=== PATIENT | female | born 1950 | race African-American/Black ===

== ENCOUNTER 2017-12-05 00:58 | Inpatient (IN) | payer OTHER ==
[~2017-12-05] VITALS: Ht 167.6 cm; Wt 78.5 kg
[2017-12-05] VITALS (18 sets, daily range): BP systolic 93–121; BP diastolic 39–57
[2017-12-05 01:33] LABS: HEMATOCRIT 36.4 % (37.0-47.0); HEMOGLOBIN 11.3 G/DL (12.0-16.0); MEAN CORPUSCULAR VOLUME 97 FL (80-99); PLATELET COUNT 176 K/UL (150-450); RED BLOOD COUNT 3.76 M/UL (4.20-5.40); WHITE BLOOD COUNT 18.5 K/UL (4.8-10.8)
[2017-12-05 01:47] LABS: ALANINE AMINOTRANSFERASE 25 U/L (12-78); ALBUMIN 3.6 G/DL (3.4-5.0); ALBUMIN/GLOBULIN RATIO 1.1 (1.0-2.7); ALKALINE PHOSPHATASE 99 U/L (46-116); ANION GAP 34 mmol/L (5-15); ASPARTATE AMINO TRANSFERASE 26 U/L (15-37); BILIRUBIN,TOTAL 0.6 MG/DL (0.2-1.0); BLOOD UREA NITROGEN 45 mg/dL (7-18); CHLORIDE 91 MMOL/L (98-107); CREATININE 2.9 MG/DL (0.55-1.30); SODIUM 132 MMOL/L (136-145)
[2017-12-05 01:50] LABS: CARBON DIOXIDE 6 MMOL/L (21-32)
[2017-12-05] MEDS ORDERED: Insulin Human Regular 100units/ml 3ml IV ONE (02:00)
--- NOTE | 2017-12-05 04:00 | Emergency Room Report ---
History of Present Illness General Chief Complaint: Altered Level of Consciousness Source: Patient, Family Member, EMS Present Illness HPI 67-year-old female presents ED with elevated Accu-Chek. Brought in by EMS. Per sister at bedside patient has been altered 1 day. Accu-Chek critically high. History of diabetes. States she's not been compliant with her medications for several days now. Will not answer as to why. Denies fevers or chills. Denies chest pain or shortness of breath. Denies nausea or vomiting. No other aggravating relieving factors. Denies any other associated symptoms Allergies: Coded Allergies: PENICILLINS (Verified Allergy, Unknown, 12/05/17) Patient History Past Medical History: DM Past Surgical History: none Pertinent Family History: none Social History: Denies: smoking, alcohol use, drug use Now: No Immunizations: UTD Reviewed Nursing Documentation: PMH: Agreed; PSxH: Agreed Nursing Documentation-PMH Hx Diabetes: Yes Review of Systems All Other Systems: negative except mentioned in HPI Physical Exam Vital Signs Date Time Temp Pulse Resp B/P (MAP) Pulse Ox O2 Delivery O2 Flow Rate FiO2 12/05/17 00:58 97.5 112 16 108/39 100 Room Air 97.5 Sp02 EP Interpretation: reviewed, normal General Appearance: no apparent distress, alert, GCS 15, non-toxic Head: normocephalic, atraumatic Eyes: bilateral eye normal inspection, bilateral eye PERRL ENT: hearing grossly normal, normal pharynx, no angioedema, normal voice Neck: full range of motion, supple/symm/no masses Respiratory: chest non-tender, lungs clear, normal breath sounds, speaking full sentences Cardiovascular #1: regular rate, rhythm, no edema Cardiovascular #2: 2+ carotid (R), 2+ carotid (L), 2+ radial (R), 2+ radial (L) , 2+ dorsalis pedis (R), 2+ dorsalis pedis (L) Gastrointestinal: normal bowel sounds, non tender, soft, non-distended, no guarding, no rebound Rectal: deferred Genitourinary: normal inspection, no CVA tenderness Musculoskeletal: back normal, gait/station normal, normal range of motion, non- tender Neurologic: alert, oriented x3, responsive, motor strength/tone normal, sensory intact, speech normal Psychiatric: judgement/insight normal, memory normal, mood/affect normal, no suicidal/homicidal ideation Reflexes: 3+ bicep (R), 3+ bicep (L), 3+ tricep (R), 3+ tricep (L), 3+ knee (R) , 3+ knee (L) Skin: normal color, no rash, warm/dry, well hydrated Lymphatic: no adenopathy Procedures Critical Care Time Critical Care Time i. I feel this is a highly complex case requiring extensive working including EKG/Rhythm strip, Xray/CT/US, Blood/urine lab work, repeat exams while in ED, and administration of strong opiates/narcotics for pain control, admission to hospital or close patient follow up. Total time: 30 min bedside evaluation and treatment excludes procedures (EKG). Reason for critical care: DKA Possible complications: hypotension, hypertension, SD, shock, arrhythmias, metabolic acidosis, end organ damage, respiratory failure. Interventions: labs, IVFS, EKG, ABG. Insulin bolus/Drip Course: patient presenting with critically high Accu-Chek. Glucose greater than 800, significant acidosis. ABG confirms DKA. Started on IV fluids. Started on insulin bolus and drip Consultations: nursing staff, EMS, family Performed by: Dr Schuster Tolerated well condition = critical j. because of unstable vital signs this patient had a condition that could potentially threaten life or limb. I feel this is a critical patient who required my full attention while patient was considered critical. Total Critical Care Time excluding procedures was greater than 35 minutes Medical Decision Making Diagnostic Impression: Primary Impression: DKA (diabetic ketoacidoses) Qualified Codes: E13.10 - Other specified diabetes mellitus with ketoacidosis without coma Additional Impression: Renal insufficiency ER Course Hospital Course 67-year-old female presenting to ED with altered mental status, glucometer critically high Differential diagnoses include: ETOH/drug ingestion, sepsis, DKA Clinical course Patient placed on stretcher. On panel monitor. After initial history and physical I ordered labs, 2 L of IV fluids, urine and chest Xray Labs-glucose greater than 800, anion gap elevated, bicarbonate low, BUN/ creatinine elevated. Leukocytosis noted. K >6 EKG - sinus tachycardia no acute ischemic changes interpreted by me Insulin drip/bolus started Case discussed with Dr. Fontana and he agreed to accept the patient to his service for further care and support i. I feel this is a highly complex case requiring extensive working including EKG/Rhythm strip, Xray/CT/US, Blood/urine lab work, repeat exams while in ED, and administration of strong opiates/narcotics for pain control, admission to hospital or close patient follow up. j. because of unstable vital signs this patient had a condition that could potentially threaten life or limb. I feel this is a critical patient who required my full attention while patient was considered critical. Total Critical Care Time excluding procedures was greater than 35 minutes diagnosis - DKA, renal insufficiency admitted to ICU in critical condition Labs Test 12/05/17 01:03 12/05/17 01:54 White Blood Count 18.5 K/UL (4.8-10.8) Red Blood Count 3.76 M/UL (4.20-5.40) Hemoglobin 11.3 G/DL (12.0-16.0) Hematocrit 36.4 % (37.0-47.0) Mean Corpuscular Volume 97 FL (80-99) Mean Corpuscular Hemoglobin 30.0 PG (27.0-31.0) Mean Corpuscular Hemoglobin Concent 31.0 G/DL (32.0-36.0) Red Cell Distribution Width 13.0 % (11.6-14.8) Platelet Count 176 K/UL (150-450) Mean Platelet Volume 7.4 FL (6.5-10.1) Neutrophils (%) (Auto) % (45.0-75.0) Lymphocytes (%) (Auto) % (20.0-45.0) Monocytes (%) (Auto) % (1.0-10.0) Eosinophils (%) (Auto) % (0.0-3.0) Basophils (%) (Auto) % (0.0-2.0) Sodium Level 132 MMOL/L (136-145) Potassium Level 6.0 MMOL/L (3.5-5.1) Chloride Level 91 MMOL/L (98-107) Carbon Dioxide Level 6 MMOL/L (21-32) Anion Gap 34 mmol/L (5-15) Blood Urea Nitrogen 45 mg/dL (7-18) Creatinine 2.9 MG/DL (0.55-1.30) Estimat Glomerular Filtration Rate 16.2 mL/min (>60) Glucose Level 844 MG/DL (74-106) Calcium Level 9.0 MG/DL (8.5-10.1) Magnesium Level 2.3 MG/DL (1.8-2.4) Total Bilirubin 0.6 MG/DL (0.2-1.0) Aspartate Amino Transf (AST/SGOT) 26 U/L (15-37) Alanine Aminotransferase (ALT/SGPT) 25 U/L (12-78) Alkaline Phosphatase 99 U/L (46-116) Total Protein 6.8 G/DL (6.4-8.2) Albumin 3.6 G/DL (3.4-5.0) Globulin 3.2 g/dL Albumin/Globulin Ratio 1.1 (1.0-2.7) Acetone Level Positive-moderate (NEGATIVE) Arterial Blood pH 7.157 (7.350-7.450) Arterial Blood Partial Pressure CO2 14.0 mmHg (35.0-45.0) Arterial Blood Partial Pressure O2 135.0 mmHg (75.0-100.0) Arterial Blood HCO3 4.8 mmol/L (22.0-26.0) Arterial Blood Oxygen Saturation 98.0 % (92.0-98.0) Arterial Blood Base Excess -21.7 Isiah Test Positive EKG Diagnostic Results Rate: tachycardiac Rhythm: NSR ST Segments: no acute changes ASA given to the pt in ED: No Rhythm Strip Diag. Results EP Interpretation: yes Rhythm: NSR, no PVC's, no ectopy Last Vital Signs Date Time Temp Pulse Resp B/P (MAP) Pulse Ox O2 Delivery O2 Flow Rate FiO2 12/05/17 03:36 97.5 16 108/39 100 Room Air 97.5 12/05/17 00:58 112 Status: improved Disposition: ADMITTED INPATIENT Condition: Critical Referrals: [facility],REFERRING (PCP) Lul Schuster MD Dec 05, 2017 04:00
[2017-12-05] MEDS ORDERED: METFORMIN HCL500 M1 ORAL (04:21)
[2017-12-05] MEDS ORDERED: HUMALOG100 UNIT/4 SUBQ ×2 (04:21→04:24)
[2017-12-05] MEDS ORDERED: LANTUS SOL100 UNIT/1 SUBQ (04:28)
[2017-12-05] MEDS ORDERED: ATORVASTATIN CA80 MG ORAL (04:28)
[2017-12-05] MEDS ORDERED: BENAZEPRIL HCL40 MG ORAL (04:28)
[2017-12-05] MEDS ORDERED: AMLODIPINE BESYL5 MG ORAL (04:28)
[2017-12-05] MEDS ORDERED: ASPIRIN81 MG ORAL (04:28)
[2017-12-05 08:00] LABS: HEMATOCRIT 34.3 % (37.0-47.0); MEAN CORPUSCULAR VOLUME 93 FL (80-99); PLATELET COUNT 182 K/UL (150-450); RED BLOOD COUNT 3.68 M/UL (4.20-5.40); RED CELL DISTRIBUTION WIDTH 12.6 % (11.6-14.8)
--- NOTE | 2017-12-05 08:09 | Pulmonolgy Critical Care Note ---
Critical Care - Asmt/Plan Problems: (1) DKA (diabetic ketoacidoses) (2) Leukocytosis (3) Hyperkalemia (4) High anion gap metabolic acidosis Respiratory: monitor respiratory rate, CXR, ABG Cardiac: other - IVF, repeat ECG/trop Renal: keep IV fluid, check electrolytes Infectious Disease: check cultures, other - check UA and CXR Gastrointestinal: start feedings - ADA diet Endocrine: monitor blood sugar, check TSH, check HgA1C, other - continue insulin gtt until gap closed, continue IVF hydration, ENDOCRINE evaluation Hematologic: monitor H/H Neurologic: keep patient comfortable Prophylaxis: Protonix, Heparin Disposition: keep in ICU Time Spent (Minutes): 50 Notes Reviewed: other - ERMD Discussed with: nurses Critical Care - Objective Last 24 Hour Vital Signs Date Time Temp Pulse Resp B/P (MAP) Pulse Ox O2 Delivery O2 Flow Rate FiO2 12/05/17 07:05 101 18 112/51 98 Room Air 12/05/17 03:36 97.5 16 108/39 100 Room Air 97.5 12/05/17 00:58 97.5 112 16 108/39 100 Room Air 97.5 Status: awake Condition: critical HEENT: atraumatic, normocephalic Lungs: clear Heart: HR/BP stable Abdomen: soft, non-tender, active bowel sounds Extremities: no C/C/E Accucheck: 509 Blood Sugars: BS not controlled Critical Care - Subjective ROS Limited/Unobtainable: Yes ICU Day: 1 Interval Events: 67 F h/o DM BIB EMS with AMS and elevated BS In the ED: 7.157/14/135/98, HCO3-6, AG 34, WCT 18 Started on insulin gtt and being transferred to the ICU Patient denies any specific complaints, is a vague historian and states she has been compliant with her meds and her BS has been well controlled previously. She denies any previous hospitalizations for DKA Condition: critical IV Access: peripheral EKG Rhythm: Sinus Tachycardia Fluids: NS @ 100/hr Drips: Insulin gtt I&O: Intake and Output 12/04/17 12/05/17 19:00 07:00 Intake Total 0 ml Balance 0 ml Intake Oral 0 ml Subjective: No F/C/TORRES/Dizziness/CP/SOB/N/V/D/C/abdominal pain/urinary complaints No changes in vision/hearing/balance Active Scripts Medications Dose Route/Sig Max Daily Dose Days Date Category Lantus (Insulin Glargine) 100 Unit/1 Ml Insuln.pen 20 SUBQ DAILY 12/05/17 Reported Benazepril Hcl* (Benazepril HCl) 40 Mg Tablet 40 Mg ORAL DAILY 12/05/17 Reported Lipitor* (Atorvastatin Calcium) 80 Mg Tablet 80 Mg ORAL BEDTIME 12/05/17 Reported Aspirin* (Aspirin) 81 Mg Tab.chew 81 Mg ORAL DAILY 12/05/17 Reported Amlodipine Besylate* (Amlodipine Besylate) 5 Mg Tablet 5 Mg ORAL DAILY 12/05/17 Reported Humalog (Insulin Lispro) 100 Unit/1 Ml Cartridge 4 SUBQ DINNER 12/05/17 Reported Humalog (Insulin Lispro) 100 Unit/1 Ml Cartridge 8 SUBQ BREAKFAST,LUNCH 12/05/17 Reported Metformin Hcl* (Metformin HCl) 500 Mg Tablet 500 Mg ORAL TWICE A DAY 12/05/17 Reported Labs: Laboratory Tests Test 12/05/17 01:03 12/05/17 01:54 12/05/17 06:56 White Blood Count 18.5 K/UL (4.8-10.8) H 24.0 K/UL (4.8-10.8) *H Red Blood Count 3.76 M/UL (4.20-5.40) L 3.68 M/UL (4.20-5.40) L Hemoglobin 11.3 G/DL (12.0-16.0) L 11.0 G/DL (12.0-16.0) L Hematocrit 36.4 % (37.0-47.0) L 34.3 % (37.0-47.0) L Mean Corpuscular Volume 97 FL (80-99) 93 FL (80-99) Mean Corpuscular Hemoglobin 30.0 PG (27.0-31.0) 29.8 PG (27.0-31.0) Mean Corpuscular Hemoglobin Concent 31.0 G/DL (32.0-36.0) L 32.0 G/DL (32.0-36.0) Red Cell Distribution Width 13.0 % (11.6-14.8) 12.6 % (11.6-14.8) Platelet Count 176 K/UL (150-450) 182 K/UL (150-450) Mean Platelet Volume 7.4 FL (6.5-10.1) 8.1 FL (6.5-10.1) Neutrophils (%) (Auto) % (45.0-75.0) % (45.0-75.0) Lymphocytes (%) (Auto) % (20.0-45.0) % (20.0-45.0) Monocytes (%) (Auto) % (1.0-10.0) % (1.0-10.0) Eosinophils (%) (Auto) % (0.0-3.0) % (0.0-3.0) Basophils (%) (Auto) % (0.0-2.0) % (0.0-2.0) Sodium Level 132 MMOL/L (136-145) L Pending Potassium Level 6.0 MMOL/L (3.5-5.1) *H Pending Chloride Level 91 MMOL/L (98-107) L Pending Carbon Dioxide Level 6 MMOL/L (21-32) *L Pending Anion Gap 34 mmol/L (5-15) H Blood Urea Nitrogen 45 mg/dL (7-18) H Pending Creatinine 2.9 MG/DL (0.55-1.30) H Pending Estimat Glomerular Filtration Rate 16.2 mL/min (>60) Pending Glucose Level 844 MG/DL (74-106) *H Pending Calcium Level 9.0 MG/DL (8.5-10.1) Pending Magnesium Level 2.3 MG/DL (1.8-2.4) Pending Total Bilirubin 0.6 MG/DL (0.2-1.0) Pending Aspartate Amino Transf (AST/SGOT) 26 U/L (15-37) Pending Alanine Aminotransferase (ALT/SGPT) 25 U/L (12-78) Pending Alkaline Phosphatase 99 U/L (46-116) Pending Total Protein 6.8 G/DL (6.4-8.2) Pending Albumin 3.6 G/DL (3.4-5.0) Pending Globulin 3.2 g/dL Pending Albumin/Globulin Ratio 1.1 (1.0-2.7) Acetone Level Positive-moderate (NEGATIVE) Arterial Blood pH 7.157 (7.350-7.450) Arterial Blood Partial Pressure CO2 14.0 mmHg (35.0-45.0) *L Arterial Blood Partial Pressure O2 135.0 mmHg (75.0-100.0) H Arterial Blood HCO3 4.8 mmol/L (22.0-26.0) L Arterial Blood Oxygen Saturation 98.0 % (92.0-98.0) Arterial Blood Base Excess -21.7 Isiah Test Positive Neutrophils % (Manual) Pending Lymphocytes % (Manual) Pending Platelet Estimate Pending Platelet Morphology Pending Hemoglobin A1c Pending Uric Acid Pending Phosphorus Level Pending Gamma Glutamyl Transpeptidase Pending Total Creatine Kinase Pending C-Reactive Protein, Quantitative Pending Pro-B-Type Natriuretic Peptide Pending Triglycerides Level Pending Cholesterol Level Pending LDL Cholesterol Pending HDL Cholesterol Pending Cholesterol/HDL Ratio Pending Lipase Pending James Ellis MD Dec 05, 2017 08:09
[2017-12-05 08:34] LABS: ALANINE AMINOTRANSFERASE 27 U/L (12-78); ALBUMIN 3.7 G/DL (3.4-5.0); ALBUMIN/GLOBULIN RATIO 1.2 (1.0-2.7); ALKALINE PHOSPHATASE 96 U/L (46-116); ASPARTATE AMINO TRANSFERASE 30 U/L (15-37); BILIRUBIN,TOTAL 0.6 MG/DL (0.2-1.0); BLOOD UREA NITROGEN 45 mg/dL (7-18); CALCIUM 9.2 MG/DL (8.5-10.1); CHLORIDE 90 MMOL/L (98-107); CHOLESTEROL 179 MG/DL (< 200); CREATINE KINASE 133 U/L (26-308); CREATININE 2.9 MG/DL (0.55-1.30); GAMMA GLUTAMYL TRANSPEPTIDASE 20 U/L (5-85); HDL CHOLESTEROL 83 MG/DL (40-60); PHOSPHORUS 8.7 MG/DL (2.5-4.9); SODIUM 132 MMOL/L (136-145); TRIGLYCERIDES 124 MG/DL (30-150)
[2017-12-05 08:53] LABS: CARBON DIOXIDE < 5 MMOL/L (21-32)
[2017-12-05] MEDS ORDERED: Pantoprazole Inj IVP SCH (09:00)
[2017-12-05] MEDS: Heparin 5000 units/ml inj SUBQ SCH ×2 (09:00→21:21)
[2017-12-05] MEDS ORDERED: NS w/KCl 20mEq 1,000 ML IV SCH (09:00)
[2017-12-05] MEDS: Insulin Rate Change 1 Each MISC PRN ×9 (10:06→22:37)
--- NOTE | 2017-12-05 10:10 | Consultation ---
Consult Note Assessment/Plan Job ID: [id number] David De Jesus MD Dec 05, 2017 10:10
[2017-12-05] MEDS: Insulin Human Regular 100units/ml 3ml IV PRN ×3 (10:34→12:32)
[2017-12-05] MEDS ORDERED: Cefepime HCl 1 GM in D5W 55 ML IVPB SCH (10:45)
[2017-12-05 11:02] LABS: HEMATOCRIT 33.3 % (37.0-47.0); HEMOGLOBIN 10.9 G/DL (12.0-16.0); MEAN CORPUSCULAR VOLUME 90 FL (80-99); PLATELET COUNT 187 K/UL (150-450); WHITE BLOOD COUNT 20.8 K/UL (4.8-10.8)
--- NOTE | 2017-12-05 11:04 | Diagnostic Imaging Report ---
Indication: Reason For Exam: SOB Technique: One view of the chest Comparison: Findings: Lungs and pleural spaces are clear. Heart size is normal. There is minimal bronchiectasis in the left suprahilar region Impression: No acute process
[2017-12-05 11:12] LABS: ANION GAP 18 mmol/L (5-15); BLOOD UREA NITROGEN 44 mg/dL (7-18); CALCIUM 8.5 MG/DL (8.5-10.1); CARBON DIOXIDE 19 MMOL/L (21-32); CHLORIDE 102 MMOL/L (98-107); CREATININE 2.4 MG/DL (0.55-1.30); POTASSIUM 4.1 MMOL/L (3.5-5.1); SODIUM 139 MMOL/L (136-145)
[2017-12-05 11:21] LABS: % IRON SATURATION 10 % (15-50); IRON 23 ug/dL (50-175); TOTAL IRON BINDING CAPACITY 225 ug/dL (250-450)
[2017-12-05 11:25] LABS: ALANINE AMINOTRANSFERASE 30 U/L (12-78); ALBUMIN 3.4 G/DL (3.4-5.0); ALKALINE PHOSPHATASE 84 U/L (46-116); ASPARTATE AMINO TRANSFERASE 37 U/L (15-37); BILIRUBIN,TOTAL 0.4 MG/DL (0.2-1.0)
--- NOTE | 2017-12-05 15:03 | Consultation ---
Consult Note Consult Note Chief Complaint: Altered Level of Consciousness HPI 67-year-old female presents ED with elevated Accu-Chek. Brought in by EMS. Per sister at bedside patient has been altered 1 day. Accu-Chek critically high. History of diabetes. States she's not been compliant with her medications for several days now. Will not answer as to why. Denies fevers or chills. Denies chest pain or shortness of breath. Denies nausea or vomiting. No other aggravating relieving factors. Denies any other associated symptoms Allergies: PENICILLINS (Verified Allergy, Unknown, 12/05/17) Past Medical History: DM examined- data reviewed- discussed with RN- Assessment/Plan (1) DKA (diabetic ketoacidoses) (2) Leukocytosis ? undelrlying sepsis (3) Hyperkalemia, and acute renal failure, likely dehydration (4) High anion gap metabolic acidosis IV Fluid- Watch K and Phos- Insulin drip Monitor lytes and renal parameters- 2D echo avoid nephrotoxics- Amandeep Shaw MD Dec 05, 2017 15:03
[2017-12-05 15:22] LABS: ALANINE AMINOTRANSFERASE 26 U/L (12-78); ALBUMIN 3.3 G/DL (3.4-5.0); ALBUMIN/GLOBULIN RATIO 1.3 (1.0-2.7); ALKALINE PHOSPHATASE 82 U/L (46-116); ANION GAP 15 mmol/L (5-15); ASPARTATE AMINO TRANSFERASE 38 U/L (15-37); BILIRUBIN,TOTAL 0.3 MG/DL (0.2-1.0); BLOOD UREA NITROGEN 45 mg/dL (7-18); CALCIUM 8.8 MG/DL (8.5-10.1); CARBON DIOXIDE 21 MMOL/L (21-32); CHLORIDE 105 MMOL/L (98-107); POTASSIUM 3.8 MMOL/L (3.5-5.1); SODIUM 141 MMOL/L (136-145)
--- NOTE | 2017-12-05 15:31 | Cardiology Report ---
APPROVED REPORT EKG Measurement Heart [id number] Sinus tachycardia Nonspecific ST and T wave abnormality Abnormal ECG
--- NOTE | 2017-12-05 16:00 | History and Physical Report ---
DATE OF ADMISSION: 12/05/2017 HISTORY OF PRESENT ILLNESS: Admitted to ICU for diabetic ketoacidosis. The patient basically admitted to ICU for diabetic ketoacidosis. The patient basically complained of weakness and abdominal pain and found to have diabetic ketoacidosis. The patient takes insulin. Denies any dizziness. Did have abdominal pain in couple of days. Denies diarrhea. Denies nausea or vomiting. Denies shortness of breath. Denies chest pain and also denies any rectal bleeding. Denies any dysuria. Of note, the patient is little bit confused and most likely from elevated blood sugar, the patient is oriented now x2 only at this point. So, the history is a kind of unreliable as he says no to everything. PAST MEDICAL HISTORY: NIDDM, the patient takes insulin, hyperlipidemia, and hypertension. ALLERGIES: To penicillin. PAST SURGICAL HISTORY: Denies. MEDICATIONS: Aspirin, Lipitor, benazepril, Lantus, and metformin. FAMILY HISTORY: Does have CAD, diabetes, and hypertension. SOCIAL HISTORY: Denies smoking, alcohol, or illicit drugs. REVIEW OF SYSTEMS: HEENT: Denies headaches. RESPIRATORY: Denies shortness of breath. Denies cough. CARDIOVASCULAR: Denies chest pain. Denies orthopnea. GASTROINTESTINAL: Denies nausea, vomiting, or diarrhea. Does have abdominal pain for couple of days. EXTREMITIES: Denies any significant pain. CENTRAL NERVOUS SYSTEM: Denies change in vision or speech pattern, although he is a poor historian. At this time, somewhat confused due to metabolic disorder and elevated blood sugar most likely. PHYSICAL EXAMINATION: VITAL SIGNS: Temperature is 97, pulse is 98, and blood pressure is 108/39. HEENT: PERRLA. NECK: Supple. No lymphadenopathy. CHEST: Clear to auscultation. CARDIOVASCULAR: Regular rate and rhythm. No murmurs or extra sounds. GASTROINTESTINAL: Positive bowel sounds. No organomegaly. No rebound tender. Abdomen is soft. EXTREMITIES: No edema. Reflexes are equal on both sides. NEUROLOGIC: now with generalized weakness. Oriented x2. LABORATORY DATA: WBC of 18.5, hemoglobin 11.3, platelet of 176. Sodium 132, potassium of 3, chloride 91, carbon dioxide was 6, BUN of 45, creatinine of 2.9, and glucose of 844. ASSESSMENT AND PLAN: 1. High anion gap metabolic acidosis, DKA. The patient admitted to ICU. I have consulted Dr. Lopez, Dr. Shaw, Dr. Mata, and Dr. Ellis, for the help in the management of electrolyte imbalance as well as for the DKA and metabolic acidosis. 2. Leukocytosis. I have asked Dr. William Floyd's team to see the patient to find out if there is any other etiology for the leukocytosis. Delaney Fontana M.D. DR: FATOU JOB#: [id number] CC:
--- NOTE | 2017-12-05 16:10 | Consultation ---
History of Present Illness General Date patient seen: Dec 05, 2017 Chief Complaint: Altered Level of Consciousness Present Illness HPI 67-year-old female presents ED with elevated Accu-Chek the pt was confused and lethargic. the pt agitated and coming out of bed. attempting to pull out IV access. Allergies: Coded Allergies: PENICILLINS (Verified Allergy, Unknown, 12/05/17) Medication History Scheduled Amlodipine Besylate* (Amlodipine Besylate*), 5 MG ORAL DAILY, (Reported) Aspirin* (Aspirin*), 81 MG ORAL DAILY, (Reported) Atorvastatin Calcium* (Lipitor*), 80 MG ORAL BEDTIME, (Reported) Benazepril Hcl* (Benazepril Hcl*), 40 MG ORAL DAILY, (Reported) Insulin Glargine (Lantus), 20 SUBQ DAILY, (Reported) Insulin Lispro (Humalog), 8 SUBQ BREAKFAST,LUNCH, (Reported) Insulin Lispro (Humalog), 4 SUBQ DINNER, (Reported) Metformin Hcl* (Metformin Hcl*), 500 MG ORAL TWICE A DAY, (Reported) Patient History Limited by: medical condition History Provided By: Patient, Medical Record, PMD Healthcare decision maker Resuscitation status Full Code Advanced Directive on File Past Medical/Surgical History Past Medical/Surgical History: (1) Renal insufficiency (2) Hyperkalemia (3) Leukocytosis (4) High anion gap metabolic acidosis (5) DKA (diabetic ketoacidoses) (6) Diabetes mellitus out of control (7) NSTEMI (non-ST elevated myocardial infarction) (8) Acute on chronic renal failure Review of Systems Psychiatric: Reports: prior hx, anxiety, depressed feelings, emotional problems Physical Exam General Appearance: no apparent distress, lethargic Neurologic: depressed affect Last 24 Hour Vital Signs Date Time Temp Pulse Resp B/P (MAP) Pulse Ox O2 Delivery O2 Flow Rate FiO2 12/05/17 12:55 Room Air 12/05/17 12:00 77 12/05/17 12:00 Room Air 12/05/17 08:10 97.0 98 18 112/51 98 Room Air 97.5 12/05/17 07:05 101 18 112/51 98 Room Air 12/05/17 03:36 97.5 16 108/39 100 Room Air 97.5 12/05/17 00:58 97.5 112 16 108/39 100 Room Air 97.5 Intake and Output 12/04/17 12/05/17 19:00 07:00 Intake Total 0 ml Balance 0 ml Intake Oral 0 ml Laboratory Tests Test 12/05/17 01:03 12/05/17 01:54 12/05/17 06:56 12/05/17 09:18 White Blood Count 18.5 K/UL (4.8-10.8) H 24.0 K/UL (4.8-10.8) *H Red Blood Count 3.76 M/UL (4.20-5.40) L 3.68 M/UL (4.20-5.40) L Hemoglobin 11.3 G/DL (12.0-16.0) L 11.0 G/DL (12.0-16.0) L Hematocrit 36.4 % (37.0-47.0) L 34.3 % (37.0-47.0) L Mean Corpuscular Volume 97 FL (80-99) 93 FL (80-99) Mean Corpuscular Hemoglobin 30.0 PG (27.0-31.0) 29.8 PG (27.0-31.0) Mean Corpuscular Hemoglobin Concent 31.0 G/DL (32.0-36.0) L 32.0 G/DL (32.0-36.0) Red Cell Distribution Width 13.0 % (11.6-14.8) 12.6 % (11.6-14.8) Platelet Count 176 K/UL (150-450) 182 K/UL (150-450) Mean Platelet Volume 7.4 FL (6.5-10.1) 8.1 FL (6.5-10.1) Neutrophils (%) (Auto) % (45.0-75.0) % (45.0-75.0) Lymphocytes (%) (Auto) % (20.0-45.0) % (20.0-45.0) Monocytes (%) (Auto) % (1.0-10.0) % (1.0-10.0) Eosinophils (%) (Auto) % (0.0-3.0) % (0.0-3.0) Basophils (%) (Auto) % (0.0-2.0) % (0.0-2.0) Sodium Level 132 MMOL/L (136-145) L 132 MMOL/L (136-145) L Potassium Level 6.0 MMOL/L (3.5-5.1) *H 6.0 MMOL/L (3.5-5.1) *H Chloride Level 91 MMOL/L (98-107) L 90 MMOL/L (98-107) L Carbon Dioxide Level 6 MMOL/L (21-32) *L < 5 MMOL/L (21-32) *L Anion Gap 34 mmol/L (5-15) H Blood Urea Nitrogen 45 mg/dL (7-18) H 45 mg/dL (7-18) H Creatinine 2.9 MG/DL (0.55-1.30) H 2.9 MG/DL (0.55-1.30) H Estimat Glomerular Filtration Rate 16.2 mL/min (>60) 19.6 mL/min (>60) Glucose Level 844 MG/DL (74-106) *H 839 MG/DL (74-106) *H Calcium Level 9.0 MG/DL (8.5-10.1) 9.2 MG/DL (8.5-10.1) Magnesium Level 2.3 MG/DL (1.8-2.4) 2.4 MG/DL (1.8-2.4) Total Bilirubin 0.6 MG/DL (0.2-1.0) 0.6 MG/DL (0.2-1.0) Aspartate Amino Transf (AST/SGOT) 26 U/L (15-37) 30 U/L (15-37) Alanine Aminotransferase (ALT/SGPT) 25 U/L (12-78) 27 U/L (12-78) Alkaline Phosphatase 99 U/L (46-116) 96 U/L (46-116) Total Protein 6.8 G/DL (6.4-8.2) 6.8 G/DL (6.4-8.2) Albumin 3.6 G/DL (3.4-5.0) 3.7 G/DL (3.4-5.0) Globulin 3.2 g/dL 3.1 g/dL Albumin/Globulin Ratio 1.1 (1.0-2.7) 1.2 (1.0-2.7) Acetone Level Positive-moderate (NEGATIVE) Arterial Blood pH 7.157 (7.350-7.450) 7.348 (7.350-7.450) Arterial Blood Partial Pressure CO2 14.0 mmHg (35.0-45.0) *L 24.5 mmHg (35.0-45.0) *L Arterial Blood Partial Pressure O2 135.0 mmHg (75.0-100.0) H 90.2 mmHg (75.0-100.0) Arterial Blood HCO3 4.8 mmol/L (22.0-26.0) L 13.2 mmol/L (22.0-26.0) L Arterial Blood Oxygen Saturation 98.0 % (92.0-98.0) 96.0 % (92.0-98.0) Arterial Blood Base Excess -21.7 -10.78 Isiah Test Positive Positive Differential Total Cells Counted 100 Neutrophils % (Manual) 70 % (45-75) Lymphocytes % (Manual) 22 % (20-45) Monocytes % (Manual) 8 % (1-10) Eosinophils % (Manual) 0 % (0-3) Basophils % (Manual) 0 % (0-2) Band Neutrophils 0 % (0-8) Platelet Estimate Adequate Platelet Morphology Normal [place] Cells 1+ Hemoglobin A1c 9.8 % (4.3-6.0) H Uric Acid 7.4 MG/DL (2.6-7.2) H Phosphorus Level 8.7 MG/DL (2.5-4.9) H Gamma Glutamyl Transpeptidase 20 U/L (5-85) Total Creatine Kinase 133 U/L (26-308) C-Reactive Protein, Quantitative 2.1 mg/dL (0.00-0.90) H Pro-B-Type Natriuretic Peptide 3129 pg/mL (0-125) H Triglycerides Level 124 MG/DL (30-150) Cholesterol Level 179 MG/DL (< 200) LDL Cholesterol 85 mg/dL (<100) HDL Cholesterol 83 MG/DL (40-60) H Cholesterol/HDL Ratio 2.2 (3.3-4.4) L Lipase 174 U/L (73-393) Test 12/05/17 10:45 12/05/17 14:20 White Blood Count 20.8 K/UL (4.8-10.8) H Red Blood Count 3.70 M/UL (4.20-5.40) L Hemoglobin 10.9 G/DL (12.0-16.0) L Hematocrit 33.3 % (37.0-47.0) L Mean Corpuscular Volume 90 FL (80-99) Mean Corpuscular Hemoglobin 29.5 PG (27.0-31.0) Mean Corpuscular Hemoglobin Concent 32.8 G/DL (32.0-36.0) Red Cell Distribution Width 12.0 % (11.6-14.8) Platelet Count 187 K/UL (150-450) Mean Platelet Volume 8.9 FL (6.5-10.1) Neutrophils (%) (Auto) % (45.0-75.0) Lymphocytes (%) (Auto) % (20.0-45.0) Monocytes (%) (Auto) % (1.0-10.0) Eosinophils (%) (Auto) % (0.0-3.0) Basophils (%) (Auto) % (0.0-2.0) Differential Total Cells Counted 100 Neutrophils % (Manual) 70 % (45-75) Lymphocytes % (Manual) 20 % (20-45) Monocytes % (Manual) 7 % (1-10) Eosinophils % (Manual) 0 % (0-3) Basophils % (Manual) 0 % (0-2) Band Neutrophils 3 % (0-8) Platelet Estimate Adequate Platelet Morphology Normal Target Cells Haptoglobin Pending Prothrombin Time 10.6 SEC (9.30-11.50) Prothromb Time International Ratio 1.0 (0.9-1.1) Sodium Level 139 MMOL/L (136-145) 141 MMOL/L (136-145) Potassium Level 4.1 MMOL/L (3.5-5.1) 3.8 MMOL/L (3.5-5.1) Chloride Level 102 MMOL/L (98-107) 105 MMOL/L (98-107) Carbon Dioxide Level 19 MMOL/L (21-32) L 21 MMOL/L (21-32) Anion Gap 18 mmol/L (5-15) H 15 mmol/L (5-15) Blood Urea Nitrogen 44 mg/dL (7-18) H 45 mg/dL (7-18) H Creatinine 2.4 MG/DL (0.55-1.30) H 2.0 MG/DL (0.55-1.30) H Estimat Glomerular Filtration Rate 24.4 mL/min (>60) 30.2 mL/min (>60) Glucose Level 372 MG/DL (74-106) #H 161 MG/DL (74-106) #H Hemoglobin A1c 10.3 % (4.3-6.0) H Lactic Acid Level 3.10 mmol/L (0.4-2.0) H 3.20 mmol/L (0.66-2.22) H Calcium Level 8.5 MG/DL (8.5-10.1) 8.8 MG/DL (8.5-10.1) Iron Level 23 ug/dL (50-175) L Total Iron Binding Capacity 225 ug/dL (250-450) L Percent Iron Saturation 10 % (15-50) L Unsaturated Iron Binding 202 ug/dL (112-346) Ferritin 1890 NG/ML (8-388) H Total Bilirubin 0.4 MG/DL (0.2-1.0) 0.3 MG/DL (0.2-1.0) Aspartate Amino Transf (AST/SGOT) 37 U/L (15-37) 38 U/L (15-37) H Alanine Aminotransferase (ALT/SGPT) 30 U/L (12-78) 26 U/L (12-78) Alkaline Phosphatase 84 U/L (46-116) 82 U/L (46-116) Total Protein 6.7 G/DL (6.4-8.2) 5.9 G/DL (6.4-8.2) L Albumin 3.4 G/DL (3.4-5.0) 3.3 G/DL (3.4-5.0) L Globulin 3.3 g/dL 2.6 g/dL Albumin/Globulin Ratio 1.0 (1.0-2.7) 1.3 (1.0-2.7) Thyroid Stimulating Hormone (TSH) 0.208 uiU/mL (0.358-3.740) Height (Feet): 5 Height (Inches): 6.00 Weight (Pounds): 185 Medications Current Medications Medications (Trade) Dose Ordered Sig/Enrike Route PRN Reason Start Time Stop Time Status Last Admin Dose Admin Dextrose (Dextrose 50%) 25 ml PRN PRN IV HYPOGLYCEMIA 12/05/17 08:30 01/04/18 08:29 Dextrose (Dextrose 50%) 50 ml PRN PRN IV HYPOGLYCEMIA 12/05/17 08:30 01/04/18 08:29 Haloperidol Lactate (Haldol) 5 mg Q6H PRN IM Agitation 12/05/17 16:15 01/04/18 16:14 UNV Heparin Sodium (Porcine) (Heparin 5000 units/ml) 5,000 units EVERY 12 HOURS SUBQ 12/05/17 09:00 01/04/18 08:59 12/05/17 09:00 Insulin Human Regular (NovoLIN R) 5 units PRN PRN IV BS 200-299 12/05/17 08:30 01/04/18 08:29 12/05/17 12:32 Insulin Human Regular (NovoLIN R) 10 units PRN PRN IV BS=>300 12/05/17 08:30 01/04/18 08:29 12/05/17 12:15 Insulin Human Regular 100 units/ Sodium Chloride 100 ml @ 0 mls/hr Q24H IV 12/05/17 09:00 01/04/18 08:59 12/05/17 09:00 Levofloxacin 100 ml @ 100 mls/hr Q48H IVPB 12/05/17 12:00 12/12/17 11:59 12/05/17 12:24 Miscellaneous Medication (Insulin Rate Change) 1 ea PRN PRN MISC Hyperglycemia 12/05/17 08:30 01/04/18 08:29 12/05/17 15:30 Pantoprazole (Protonix) 40 mg DAILY IVP 12/05/17 09:00 01/04/18 08:59 12/05/17 09:00 Quetiapine Fumarate (SEROquel) 25 mg EVERY 6 HOURS PRN ORAL For Anxiety 12/05/17 16:15 01/04/18 16:14 UNV Quetiapine Fumarate (SEROquel) 50 mg BEDTIME ORAL 12/05/17 21:00 01/04/18 20:59 UNV Sodium Chloride 1,000 ml @ 150 mls/hr Q6H40M IV 12/05/17 10:00 01/04/18 09:59 12/05/17 10:00 Assessment/Plan Status: unchanged Assessment/Plan encephalopathy Agitation -seroquel 25mg q 6hr/prn/agitation -haldol prn Jeanette Jerez MD Dec 05, 2017 16:10
[2017-12-05] MEDS ORDERED: Haloperidol 5mg/ml Inj IM PRN (16:15)
--- NOTE | 2017-12-05 16:45 | Consultation ---
DATE OF CONSULTATION: 12/05/2017 INFECTIOUS DISEASE CONSULTATION CONSULTING PHYSICIAN: Mike Dickinson M.D. PRIMARY ATTENDING PHYSICIAN: Delaney Fontana M.D. REASON FOR CONSULT: Systemic inflammatory response sepsis. HISTORY OF PRESENT ILLNESS: This is a 67-year-old female, who is diabetic and noncompliant with diabetic medication, admitted with altered mental status. The patient was found to be hyperglycemic with blood sugar of 844 at the time of admission, had hyperkalemia, acute renal failure, and tachycardia. The patient is admitted to ICU and getting insulin drip and is being hydrated. She was found to have acidosis. PAST MEDICAL HISTORY: 1. Diabetes mellitus, on insulin. 2. Hypertension. MEDICATIONS: Sodium chloride, insulin, Protonix, and heparin. ALLERGIES: Allergic to penicillin. SOCIAL HISTORY: . Denies alcohol or drug abuse and smoking. Has no children. REVIEW OF SYSTEMS: Denies fevers or chills. Denies sore throat, runny nose, or change in vision. Denies nausea, vomiting, or diarrhea. Denies coughing or shortness of breath. Denies chest pain. Denies difficulty of passing urine. PHYSICAL EXAMINATION: VITAL SIGNS: Temperature 97, pulse 98, and blood pressure 112/51. GENERAL APPEARANCE: Awake, alert, and responsive. HEAD AND NECK: No oral lesion. Kress conjunctiva. HEART: Regular. Normal rate. LUNGS: Clear. ABDOMEN: Soft and nontender. EXTREMITY: She has no edema. LABORATORY AND DIAGNOSTIC DATA: WBC 24,000, hemoglobin 11, hematocrit 34.3, and platelets 182,000. Sodium 132, potassium 6, chloride 90, bicarb less than 5, BUN 45, creatinine 2.9, and glucose 839. Hemoglobin A1c 9.8. Chest x-ray is pending. There is no urine test for now. IMPRESSION: Systemic inflammatory response syndrome, less likely sepsis. The patient has diabetic ketoacidosis, acute renal failure, history of hypertension, and has hyperkalemia. RECOMMENDATIONS: Because the patient has increased risk of infection because of underlying condition, we will start on cefepime. We will follow up chest x-ray, UA, and cultures. At the end of my exam, I thank Dr. Fontana for involving me in the care of this patient. Mike Dickinson M.D. DR: EDA JOB#: [id number] CC: MIKEY
--- NOTE | 2017-12-05 17:30 | Consultation ---
DATE OF CONSULTATION: 12/04/2017 HEMATOLOGY/ONCOLOGY CONSULTATION CONSULTING PHYSICIAN: David De Jesus M.D. REQUESTING PHYSICIAN: Delaney Fontana M.D. REASON FOR CONSULTATION: Management of DKA as well as underlying anemia. IDENTIFICATION DATA: Dear Dr. Fontana, The patient is a pleasant 67-year-old female. This is her first time in [facility]. She has a history of diabetes mellitus, poorly controlled in the past. Vague historian. Does not recall taking any medication at this time. Has not been compliant. Also has not eaten her meal yesterday and at this time presents with elevated blood sugar in the 400s to 500s. In the ER, noted to be acidotic with a large anion gap of approximately 39. Started on insulin drip. closely, started on IV hydration. Hematology Service was consulted for further evaluation and treatment. PAST MEDICAL HISTORY: Diabetes. PAST SURGICAL HISTORY: None noted. ALLERGIES: No known drug allergies besides penicillin. SOCIAL HISTORY: No alcohol, tobacco, or illicit drug use. FAMILY HISTORY: Noncontributory. REVIEW OF SYSTEMS: CONSTITUTIONAL: No fevers, chills, or night sweats. SKIN: No rashes, bumps, or itching. HEENT: No headache, hearing or visual changes. BREASTS: No lumps, pain, or discharge. PULMONARY: No cough, sputum, or shortness of breath. GASTROINTESTINAL: No nausea, vomiting, or diarrhea. GENITOURINARY: No dysuria, frequency, or urgency. MUSCULOSKELETAL: No joint swelling, muscle pain, or trauma. PHYSICAL EXAMINATION: VITAL SIGNS: Reviewed. GENERAL: No acute distress. PULMONARY: Decreased breath sounds. CARDIOVASCULAR: Regular rate. No S3 or S4. ABDOMEN: Soft, nontender, and nondistended. EXTREMITIES: No cyanosis, swelling, or edema is noted. LABORATORY DATA: WBC of 23,000 and hemoglobin of 11. INR is pending at this time. ASSESSMENT AND RECOMMENDATIONS: 1. Leukocytosis likely secondary to underlying diabetic ketoacidosis, rule out underlying infection. Chest x-ray and urinalysis have been ordered. Obtain peripheral smear. 2. Anemia due to underlying chronic disease. Continue to closely monitor for improvement. 3. Hyperkalemia given Kayexalate. 4. Diabetic ketoacidosis. She has been seen by Pulmonary team, Dr. Ellis. 5. High anion gap acidosis. To be seen by primary team. Gap is closing. On insulin sliding scale insulin. 6. Shortness of breath likely, due to underlying diabetic ketoacidosis. morning. I appreciate consultation. David De Jesus M.D. DR: RHONDA JOB#: [id number] CC:
[2017-12-05 18:28] LABS: ALANINE AMINOTRANSFERASE 26 U/L (12-78); ALBUMIN 2.8 G/DL (3.4-5.0); ALBUMIN/GLOBULIN RATIO 0.9 (1.0-2.7); ALKALINE PHOSPHATASE 76 U/L (46-116); ANION GAP 15 mmol/L (5-15); ASPARTATE AMINO TRANSFERASE 52 U/L (15-37); BILIRUBIN,TOTAL 0.4 MG/DL (0.2-1.0); BLOOD UREA NITROGEN 44 mg/dL (7-18); CALCIUM 8.4 MG/DL (8.5-10.1); CARBON DIOXIDE 19 MMOL/L (21-32); CHLORIDE 105 MMOL/L (98-107); CREATININE 1.7 MG/DL (0.55-1.30); POTASSIUM 4.5 MMOL/L (3.5-5.1); SODIUM 138 MMOL/L (136-145)
[2017-12-05] MEDS: D5 1/2NS w/KCl 20mEq 1,000 ML IV SCH (21:19)
--- NOTE | 2017-12-05 23:50 | Cardiology Progress Note ---
Assessment/Plan Assessment/Plan The patient is seen and examined, full consult note will be dictated shortly. Objective Last 24 Hour Vital Signs Date Time Temp Pulse Resp B/P (MAP) Pulse Ox O2 Delivery O2 Flow Rate FiO2 12/05/17 19:00 90 20 116/52 (73) 100 12/05/17 18:00 93 19 95/51 (66) 100 12/05/17 17:00 94 16 108/47 (67) 100 12/05/17 16:00 98.6 95 22 105/55 (72) 99 98.6 12/05/17 16:00 98 12/05/17 16:00 Room Air 12/05/17 15:00 94 23 101/54 (70) 100 12/05/17 14:00 95 23 93/39 (57) 100 12/05/17 13:00 102 21 98/47 (64) 98 12/05/17 12:55 Room Air 12/05/17 12:00 98.6 99 21 95/41 (59) 99 98.6 12/05/17 12:00 77 12/05/17 12:00 Room Air 12/05/17 11:00 96 21 99/47 (64) 100 12/05/17 10:00 92 20 96/44 (61) 100 12/05/17 09:00 90 18 95/44 (61) 100 12/05/17 08:10 97.0 98 18 112/51 98 Room Air 97.5 12/05/17 08:00 98.9 88 21 98/44 (62) 100 98.9 12/05/17 07:05 101 18 112/51 98 Room Air 12/05/17 03:36 97.5 16 108/39 100 Room Air 97.5 12/05/17 00:58 97.5 112 16 108/39 100 Room Air 97.5 Intake and Output 12/04/17 12/05/17 19:00 07:00 Intake Total 0 ml Balance 0 ml Intake Oral 0 ml Laboratory Tests Test 12/05/17 01:03 12/05/17 01:54 12/05/17 06:56 12/05/17 09:18 White Blood Count 18.5 K/UL (4.8-10.8) H 24.0 K/UL (4.8-10.8) *H Red Blood Count 3.76 M/UL (4.20-5.40) L 3.68 M/UL (4.20-5.40) L Hemoglobin 11.3 G/DL (12.0-16.0) L 11.0 G/DL (12.0-16.0) L Hematocrit 36.4 % (37.0-47.0) L 34.3 % (37.0-47.0) L Mean Corpuscular Volume 97 FL (80-99) 93 FL (80-99) Mean Corpuscular Hemoglobin 30.0 PG (27.0-31.0) 29.8 PG (27.0-31.0) Mean Corpuscular Hemoglobin Concent 31.0 G/DL (32.0-36.0) L 32.0 G/DL (32.0-36.0) Red Cell Distribution Width 13.0 % (11.6-14.8) 12.6 % (11.6-14.8) Platelet Count 176 K/UL (150-450) 182 K/UL (150-450) Mean Platelet Volume 7.4 FL (6.5-10.1) 8.1 FL (6.5-10.1) Neutrophils (%) (Auto) % (45.0-75.0) % (45.0-75.0) Lymphocytes (%) (Auto) % (20.0-45.0) % (20.0-45.0) Monocytes (%) (Auto) % (1.0-10.0) % (1.0-10.0) Eosinophils (%) (Auto) % (0.0-3.0) % (0.0-3.0) Basophils (%) (Auto) % (0.0-2.0) % (0.0-2.0) Sodium Level 132 MMOL/L (136-145) L 132 MMOL/L (136-145) L Potassium Level 6.0 MMOL/L (3.5-5.1) *H 6.0 MMOL/L (3.5-5.1) *H Chloride Level 91 MMOL/L (98-107) L 90 MMOL/L (98-107) L Carbon Dioxide Level 6 MMOL/L (21-32) *L < 5 MMOL/L (21-32) *L Anion Gap 34 mmol/L (5-15) H Blood Urea Nitrogen 45 mg/dL (7-18) H 45 mg/dL (7-18) H Creatinine 2.9 MG/DL (0.55-1.30) H 2.9 MG/DL (0.55-1.30) H Estimat Glomerular Filtration Rate 16.2 mL/min (>60) 19.6 mL/min (>60) Glucose Level 844 MG/DL (74-106) *H 839 MG/DL (74-106) *H Calcium Level 9.0 MG/DL (8.5-10.1) 9.2 MG/DL (8.5-10.1) Magnesium Level 2.3 MG/DL (1.8-2.4) 2.4 MG/DL (1.8-2.4) Total Bilirubin 0.6 MG/DL (0.2-1.0) 0.6 MG/DL (0.2-1.0) Aspartate Amino Transf (AST/SGOT) 26 U/L (15-37) 30 U/L (15-37) Alanine Aminotransferase (ALT/SGPT) 25 U/L (12-78) 27 U/L (12-78) Alkaline Phosphatase 99 U/L (46-116) 96 U/L (46-116) Total Protein 6.8 G/DL (6.4-8.2) 6.8 G/DL (6.4-8.2) Albumin 3.6 G/DL (3.4-5.0) 3.7 G/DL (3.4-5.0) Globulin 3.2 g/dL 3.1 g/dL Albumin/Globulin Ratio 1.1 (1.0-2.7) 1.2 (1.0-2.7) Acetone Level Positive-moderate (NEGATIVE) Arterial Blood pH 7.157 (7.350-7.450) 7.348 (7.350-7.450) Arterial Blood Partial Pressure CO2 14.0 mmHg (35.0-45.0) *L 24.5 mmHg (35.0-45.0) *L Arterial Blood Partial Pressure O2 135.0 mmHg (75.0-100.0) H 90.2 mmHg (75.0-100.0) Arterial Blood HCO3 4.8 mmol/L (22.0-26.0) L 13.2 mmol/L (22.0-26.0) L Arterial Blood Oxygen Saturation 98.0 % (92.0-98.0) 96.0 % (92.0-98.0) Arterial Blood Base Excess -21.7 -10.78 Isiah Test Positive Positive Differential Total Cells Counted 100 Neutrophils % (Manual) 70 % (45-75) Lymphocytes % (Manual) 22 % (20-45) Monocytes % (Manual) 8 % (1-10) Eosinophils % (Manual) 0 % (0-3) Basophils % (Manual) 0 % (0-2) Band Neutrophils 0 % (0-8) Platelet Estimate Adequate Platelet Morphology Normal [place] Cells 1+ Hemoglobin A1c 9.8 % (4.3-6.0) H Uric Acid 7.4 MG/DL (2.6-7.2) H Phosphorus Level 8.7 MG/DL (2.5-4.9) H Gamma Glutamyl Transpeptidase 20 U/L (5-85) Total Creatine Kinase 133 U/L (26-308) C-Reactive Protein, Quantitative 2.1 mg/dL (0.00-0.90) H Pro-B-Type Natriuretic Peptide 3129 pg/mL (0-125) H Triglycerides Level 124 MG/DL (30-150) Cholesterol Level 179 MG/DL (< 200) LDL Cholesterol 85 mg/dL (<100) HDL Cholesterol 83 MG/DL (40-60) H Cholesterol/HDL Ratio 2.2 (3.3-4.4) L Lipase 174 U/L (73-393) Test 12/05/17 10:45 12/05/17 14:20 12/05/17 18:00 12/05/17 21:25 White Blood Count 20.8 K/UL (4.8-10.8) H Red Blood Count 3.70 M/UL (4.20-5.40) L Hemoglobin 10.9 G/DL (12.0-16.0) L Hematocrit 33.3 % (37.0-47.0) L Mean Corpuscular Volume 90 FL (80-99) Mean Corpuscular Hemoglobin 29.5 PG (27.0-31.0) Mean Corpuscular Hemoglobin Concent 32.8 G/DL (32.0-36.0) Red Cell Distribution Width 12.0 % (11.6-14.8) Platelet Count 187 K/UL (150-450) Mean Platelet Volume 8.9 FL (6.5-10.1) Neutrophils (%) (Auto) % (45.0-75.0) Lymphocytes (%) (Auto) % (20.0-45.0) Monocytes (%) (Auto) % (1.0-10.0) Eosinophils (%) (Auto) % (0.0-3.0) Basophils (%) (Auto) % (0.0-2.0) Differential Total Cells Counted 100 Neutrophils % (Manual) 70 % (45-75) Lymphocytes % (Manual) 20 % (20-45) Monocytes % (Manual) 7 % (1-10) Eosinophils % (Manual) 0 % (0-3) Basophils % (Manual) 0 % (0-2) Band Neutrophils 3 % (0-8) Platelet Estimate Adequate Platelet Morphology Normal Target Cells Haptoglobin Pending Prothrombin Time 10.6 SEC (9.30-11.50) Prothromb Time International Ratio 1.0 (0.9-1.1) Sodium Level 139 MMOL/L (136-145) 141 MMOL/L (136-145) 138 MMOL/L (136-145) Potassium Level 4.1 MMOL/L (3.5-5.1) 3.8 MMOL/L (3.5-5.1) 4.5 MMOL/L (3.5-5.1) Chloride Level 102 MMOL/L (98-107) 105 MMOL/L (98-107) 105 MMOL/L (98-107) Carbon Dioxide Level 19 MMOL/L (21-32) L 21 MMOL/L (21-32) 19 MMOL/L (21-32) L Anion Gap 18 mmol/L (5-15) H 15 mmol/L (5-15) 15 mmol/L (5-15) Blood Urea Nitrogen 44 mg/dL (7-18) H 45 mg/dL (7-18) H 44 mg/dL (7-18) H Creatinine 2.4 MG/DL (0.55-1.30) H 2.0 MG/DL (0.55-1.30) H 1.7 MG/DL (0.55-1.30) H Estimat Glomerular Filtration Rate 24.4 mL/min (>60) 30.2 mL/min (>60) 36.4 mL/min (>60) Glucose Level 372 MG/DL (74-106) #H 161 MG/DL (74-106) #H 161 MG/DL (74-106) H Hemoglobin A1c 10.3 % (4.3-6.0) H Lactic Acid Level 3.10 mmol/L (0.4-2.0) H 3.20 mmol/L (0.66-2.22) H Calcium Level 8.5 MG/DL (8.5-10.1) 8.8 MG/DL (8.5-10.1) 8.4 MG/DL (8.5-10.1) L Iron Level 23 ug/dL (50-175) L Total Iron Binding Capacity 225 ug/dL (250-450) L Percent Iron Saturation 10 % (15-50) L Unsaturated Iron Binding 202 ug/dL (112-346) Ferritin 1890 NG/ML (8-388) H Total Bilirubin 0.4 MG/DL (0.2-1.0) 0.3 MG/DL (0.2-1.0) 0.4 MG/DL (0.2-1.0) Aspartate Amino Transf (AST/SGOT) 37 U/L (15-37) 38 U/L (15-37) H 52 U/L (15-37) H Alanine Aminotransferase (ALT/SGPT) 30 U/L (12-78) 26 U/L (12-78) 26 U/L (12-78) Alkaline Phosphatase 84 U/L (46-116) 82 U/L (46-116) 76 U/L (46-116) Total Protein 6.7 G/DL (6.4-8.2) 5.9 G/DL (6.4-8.2) L 6.0 G/DL (6.4-8.2) L Albumin 3.4 G/DL (3.4-5.0) 3.3 G/DL (3.4-5.0) L 2.8 G/DL (3.4-5.0) L Globulin 3.3 g/dL 2.6 g/dL 3.2 g/dL Albumin/Globulin Ratio 1.0 (1.0-2.7) 1.3 (1.0-2.7) 0.9 (1.0-2.7) L Thyroid Stimulating Hormone (TSH) 0.208 uiU/mL (0.358-3.740) Arterial Blood pH 7.407 (7.350-7.450) Arterial Blood Partial Pressure CO2 29.9 mmHg (35.0-45.0) L Arterial Blood Partial Pressure O2 86.5 mmHg (75.0-100.0) Arterial Blood HCO3 18.4 mmol/L (22.0-26.0) L Arterial Blood Oxygen Saturation 96.3 % (92.0-98.0) Arterial Blood Base Excess -5.2 Isiah Test Positive Bimal Mata MD Dec 05, 2017 23:50
[2017-12-06] VITALS (24 sets, daily range): BP systolic 92–131; BP diastolic 39–80
[2017-12-06] MEDS: Insulin Rate Change 1 Each MISC PRN ×3 (00:18→06:18)
[2017-12-06 00:50] LABS: ANION GAP 12 mmol/L (5-15); BLOOD UREA NITROGEN 41 mg/dL (7-18); CALCIUM 8.6 MG/DL (8.5-10.1); CARBON DIOXIDE 22 MMOL/L (21-32); CHLORIDE 106 MMOL/L (98-107); CREATININE 1.6 MG/DL (0.55-1.30); POTASSIUM 4.1 MMOL/L (3.5-5.1); SODIUM 140 MMOL/L (136-145)
--- NOTE | 2017-12-06 04:15 | Consultation ---
DATE OF CONSULTATION: 12/05/2017 NOTE: PO[facility] AUDIO ENDOCRINOLOGY CONSULTATION CONSULTING PHYSICIAN: Mehdi Lopez M.D. REFERRING PHYSICIAN: Delaney Fontana M.D. REASON FOR CONSULTATION: Diabetic ketoacidosis. HISTORY OF PRESENT ILLNESS: It is important to note that history is obtained from the chart and medical records since the patient is not able to provide any meaningful history due to altered mental status. The patient was seen in the emergency room. On this admission, this is a 67-year-old female with a history of diabetes, who has not been taking her medications, presented to the emergency department brought by paramedics due to altered mental status for one day. Accu-Chek at home was critically high. Not sure why the patient was not taking the medication. Does not give any answer. No nausea, vomiting, or abdominal pain. ALLERGIES: Penicillin. MEDICATIONS: Reviewed and reconciled. HOME MEDICATIONS: 1. Metformin 500 mg b.i.d. 2. Humalog 4 units with dinner and 8 units with breakfast and lunch. 3. Lantus 20 units daily. 4. Benazepril 40 mg daily. 5. Atorvastatin 80 mg. 6. Aspirin 81 mg daily. 7. Amlodipine 5 mg daily. PAST MEDICAL HISTORY: Diabetes. PAST SURGICAL HISTORY: None. FAMILY HISTORY: Noncontributory. SOCIAL HISTORY: No smoking, alcohol, or drug use. REVIEW OF SYSTEMS: Unobtainable. LABORATORY DATA: Sodium 132, potassium 6.0, chloride 91, bicarbonate 8, anion gap 34, BUN 45, glucose of 844. urine ketone level is moderately positive. Blood gas shows a pH of 7.1. WBC of 18.5, hemoglobin 13, hematocrit 36.4, and platelets of 176. PHYSICAL EXAMINATION: GENERAL: The patient is lethargic. VITAL SIGNS: Blood pressure is 108/39, temperature of 97.5, and pulse of 112. HEENT: Mucous membranes dry. HEART: Tachy. LUNGS: Decreased breath sounds. ABDOMEN: Positive bowel sounds. EXTREMITIES: Trace edema. DIAGNOSES: 1. Severe gap metabolic acidosis, most likely due to combination of lactic acidosis as well as acute diabetic ketoacidosis. 2. Acute kidney injury. 3. Encephalopathy toxic metabolic. 4. History of hypertension. 5. Noncompliance with medication. PLAN: 1. The patient is in critical condition, needs to be admitted in the ICU. She already has a bed. 2. Vigorous IV hydration. 3. IV insulin will be continued in the ICU. 4. Once the patient is stable, I will switch insulin therapy from IV to subcutaneous insulin. 5. Hold metformin. I will follow the electrolytes and replete. Thank you, Dr. Fontana, for the courtesy of this consultation. Mehdi Lopez M.D. DR: ZACH/USMAN JOB#: [id number] CC: MIKEY
[2017-12-06] MEDS: Insulin Human Regular 100units/ml 3ml IV PRN (04:38)
[2017-12-06 06:15] LABS: APPEARANCE,URINE CLEAR; BILIRUBIN, URINE NEGATIVE (NEGATIVE); GLUCOSE, URINE (UA) 3+ (NEGATIVE); KETONES,URINE 2+ (NEGATIVE); LEUKOCYTE ESTERASE ,URINE NEGATIVE (NEGATIVE); NITRITE,URINE NEGATIVE (NEGATIVE); PH,URINE 5 (4.5-8.0); PROTEIN,URINE 2+ (NEGATIVE); UROBILINOGEN,URINE NORMAL MG/DL (0.0-1.0)
[2017-12-06 06:16] LABS: COLOR,URINE YELLOW
[2017-12-06 06:26] LABS: ALANINE AMINOTRANSFERASE 27 U/L (12-78); ALBUMIN 2.7 G/DL (3.4-5.0); ALBUMIN/GLOBULIN RATIO 0.9 (1.0-2.7); ALKALINE PHOSPHATASE 70 U/L (46-116); ANION GAP 10 mmol/L (5-15); ASPARTATE AMINO TRANSFERASE 39 U/L (15-37); BILIRUBIN,TOTAL 0.3 MG/DL (0.2-1.0); BLOOD UREA NITROGEN 37 mg/dL (7-18); CALCIUM 8.8 MG/DL (8.5-10.1); CARBON DIOXIDE 24 MMOL/L (21-32); CHLORIDE 107 MMOL/L (98-107); CREATININE 1.6 MG/DL (0.55-1.30); POTASSIUM 3.8 MMOL/L (3.5-5.1); SODIUM 140 MMOL/L (136-145)
--- NOTE | 2017-12-06 06:45 | General Progress Note ---
Assessment/Plan Problem List: (1) Diabetes mellitus out of control ICD Codes: E11.65 - Type 2 diabetes mellitus with hyperglycemia SNOMED: 95940327, 304254873 (2) DKA (diabetic ketoacidoses) ICD Codes: E13.10 - Other specified diabetes mellitus with ketoacidosis without coma SNOMED: 499816357, [id number] Qualifiers: Qualified Codes: E13.10 - Other specified diabetes mellitus with ketoacidosis without coma (3) High anion gap metabolic acidosis ICD Codes: E87.2 - Acidosis SNOMED: 51901938 (4) Renal insufficiency ICD Codes: N28.9 - Disorder of kidney and ureter, unspecified SNOMED: 880092183, 041367325 (5) Hyperkalemia ICD Codes: E87.5 - Hyperkalemia SNOMED: 74767400 (6) Leukocytosis ICD Codes: D72.829 - Elevated white blood cell count, unspecified SNOMED: 909846254, 406212574 Assessment/Plan DKA resolved DC IV insulin start Levemir 12 units bid start NISS every 4 hours Subjective ROS Limited/Unobtainable: Yes Allergies: Coded Allergies: PENICILLINS (Verified Allergy, Unknown, 12/05/17) Subjective events noted Objective Last 24 Hour Vital Signs Date Time Temp Pulse Resp B/P (MAP) Pulse Ox O2 Delivery O2 Flow Rate FiO2 12/06/17 04:00 Room Air 12/06/17 04:00 96 12/06/17 03:00 94 20 108/40 (62) 99 12/06/17 02:00 99 21 110/80 (90) 99 12/06/17 01:00 97 21 117/80 (92) 99 12/06/17 00:00 98.6 101 20 98/51 (67) 100 98.6 12/06/17 00:00 100 12/06/17 00:00 Room Air 12/05/17 23:00 103 21 98/51 (67) 100 12/05/17 22:00 96 22 95/48 (64) 100 12/05/17 21:00 98 18 121/56 (77) 100 12/05/17 20:00 97 12/05/17 20:00 Room Air 12/05/17 20:00 98.7 97 18 121/57 (78) 100 98.7 12/05/17 19:00 90 20 116/52 (73) 100 12/05/17 18:00 93 19 95/51 (66) 100 12/05/17 17:00 94 16 108/47 (67) 100 12/05/17 16:00 98.6 95 22 105/55 (72) 99 98.6 12/05/17 16:00 98 12/05/17 16:00 Room Air 12/05/17 15:00 94 23 101/54 (70) 100 12/05/17 14:00 95 23 93/39 (57) 100 12/05/17 13:00 102 21 98/47 (64) 98 12/05/17 12:55 Room Air 12/05/17 12:00 98.6 99 21 95/41 (59) 99 98.6 12/05/17 12:00 77 12/05/17 12:00 Room Air 12/05/17 11:00 96 21 99/47 (64) 100 12/05/17 10:00 92 20 96/44 (61) 100 12/05/17 09:00 90 18 95/44 (61) 100 12/05/17 08:10 97.0 98 18 112/51 98 Room Air 97.5 12/05/17 08:00 98.9 88 21 98/44 (62) 100 98.9 12/05/17 07:05 101 18 112/51 98 Room Air Intake and Output 12/05/17 12/06/17 19:00 07:00 Intake Total 3700 ml 619.2 ml Output Total 640 ml 380 ml Balance 3060 ml 239.2 ml IV Total 3700 ml 619.2 ml Output Urine Total 640 ml 380 ml # Voids 13 # Bowel Movements 14 4 Laboratory Tests 12/05/17 06:56: White Blood Count 24.0*H, Red Blood Count 3.68L, Hemoglobin 11.0L, Hematocrit 34.3L, Mean Corpuscular Volume 93, Mean Corpuscular Hemoglobin 29.8, Mean Corpuscular Hemoglobin Concent 32.0, Red Cell Distribution Width 12.6, Platelet Count 182, Mean Platelet Volume 8.1, Neutrophils (%) (Auto) , Lymphocytes (%) ( Auto) , Monocytes (%) (Auto) , Eosinophils (%) (Auto) , Basophils (%) (Auto) , Differential Total Cells Counted 100, Neutrophils % (Manual) 70, Lymphocytes % ( Manual) 22, Monocytes % (Manual) 8, Eosinophils % (Manual) 0, Basophils % ( Manual) 0, Band Neutrophils 0, Platelet Estimate Adequate, Platelet Morphology Normal, Leroy Cells 1+, Sodium Level 132L, Potassium Level 6.0*H, Chloride Level 90L, Carbon Dioxide Level < 5*L, Blood Urea Nitrogen 45H, Creatinine 2.9H, Estimat Glomerular Filtration Rate 19.6, Glucose Level 839*H, Hemoglobin A1c 9.8H, Uric Acid 7.4H, Calcium Level 9.2, Phosphorus Level 8.7H, Magnesium Level 2.4, Total Bilirubin 0.6, Gamma Glutamyl Transpeptidase 20, Aspartate Amino Transf (AST/SGOT) 30, Alanine Aminotransferase (ALT/SGPT) 27, Alkaline Phosphatase 96, Total Creatine Kinase 133, C-Reactive Protein, Quantitative 2.1H , Pro-B-Type Natriuretic Peptide 3129H, Total Protein 6.8, Albumin 3.7, Globulin 3.1, Albumin/Globulin Ratio 1.2, Triglycerides Level 124, Cholesterol Level 179, LDL Cholesterol 85, HDL Cholesterol 83H, Cholesterol/HDL Ratio 2.2L, Lipase 174 12/05/17 09:18: Arterial Blood pH 7.348L, Arterial Blood Partial Pressure CO2 24.5*L, Arterial Blood Partial Pressure O2 90.2, Arterial Blood HCO3 13.2L, Arterial Blood Oxygen Saturation 96.0, Arterial Blood Base Excess -10.78, Isiah Test Positive 12/05/17 10:45: White Blood Count 20.8H, Red Blood Count 3.70L, Hemoglobin 10.9L, Hematocrit 33.3L, Mean Corpuscular Volume 90, Mean Corpuscular Hemoglobin 29.5, Mean Corpuscular Hemoglobin Concent 32.8, Red Cell Distribution Width 12.0, Platelet Count 187, Mean Platelet Volume 8.9, Neutrophils (%) (Auto) , Lymphocytes (%) ( Auto) , Monocytes (%) (Auto) , Eosinophils (%) (Auto) , Basophils (%) (Auto) , Differential Total Cells Counted 100, Neutrophils % (Manual) 70, Lymphocytes % ( Manual) 20, Monocytes % (Manual) 7, Eosinophils % (Manual) 0, Basophils % ( Manual) 0, Band Neutrophils 3, Platelet Estimate Adequate, Platelet Morphology Normal, Sodium Level 139, Potassium Level 4.1, Chloride Level 102, Carbon Dioxide Level 19L, Blood Urea Nitrogen 44H, Creatinine 2.4H, Estimat Glomerular Filtration Rate 24.4, Glucose Level 372#H, Hemoglobin A1c 10.3H, Calcium Level 8.5, Total Bilirubin 0.4, Aspartate Amino Transf (AST/SGOT) 37, Alanine Aminotransferase (ALT/SGPT) 30, Alkaline Phosphatase 84, Total Protein 6.7, Albumin 3.4, Globulin 3.3, Albumin/Globulin Ratio 1.0, Target Cells , Haptoglobin [Pending], Prothrombin Time 10.6, Prothromb Time International Ratio 1.0, Anion Gap 18H, Lactic Acid Level 3.10H, Iron Level 23L, Total Iron Binding Capacity 225L, Percent Iron Saturation 10L, Unsaturated Iron Binding 202 , Ferritin 1890H, Thyroid Stimulating Hormone (TSH) 0.208L 12/05/17 14:20: Sodium Level 141, Potassium Level 3.8, Chloride Level 105, Carbon Dioxide Level 21, Blood Urea Nitrogen 45H, Creatinine 2.0H, Estimat Glomerular Filtration Rate 30.2, Glucose Level 161#H, Calcium Level 8.8, Total Bilirubin 0.3, Aspartate Amino Transf (AST/SGOT) 38H, Alanine Aminotransferase (ALT/SGPT) 26, Alkaline Phosphatase 82, Total Protein 5.9L, Albumin 3.3L, Globulin 2.6, Albumin /Globulin Ratio 1.3, Anion Gap 15, Lactic Acid Level 3.20H 12/05/17 18:00: Sodium Level 138, Potassium Level 4.5, Chloride Level 105, Carbon Dioxide Level 19L, Anion Gap 15, Blood Urea Nitrogen 44H, Creatinine 1.7H, Estimat Glomerular Filtration Rate 36.4, Glucose Level 161H, Calcium Level 8.4L, Total Bilirubin 0.4, Aspartate Amino Transf (AST/SGOT) 52H, Alanine Aminotransferase (ALT/SGPT) 26, Alkaline Phosphatase 76, Total Protein 6.0L, Albumin 2.8L, Globulin 3.2, Albumin/Globulin Ratio 0.9L 12/05/17 21:25: Arterial Blood pH 7.407, Arterial Blood Partial Pressure CO2 29.9L, Arterial Blood Partial Pressure O2 86.5, Arterial Blood HCO3 18.4L, Arterial Blood Oxygen Saturation 96.3, Arterial Blood Base Excess -5.2, Isiah Test Positive 12/06/17 00:22: Sodium Level 140, Potassium Level 4.1, Chloride Level 106, Carbon Dioxide Level 22, Anion Gap 12, Blood Urea Nitrogen 41H, Creatinine 1.6H, Estimat Glomerular Filtration Rate 38.9, Glucose Level 201H, Calcium Level 8.6 12/06/17 05:00: Urine Color Yellow, Urine Appearance Clear, Urine pH 5, Urine Specific [place] 1.020, Urine Protein 2+H, Urine Glucose (UA) 3+H, Urine Ketones 2+H, Urine Occult Blood 4+H, Urine Nitrite Negative, Urine Bilirubin Negative, Urine Urobilinogen Normal, Urine Leukocyte Esterase Negative, Urine RBC 40-60H, Urine WBC 2-4, Urine Squamous Epithelial Cells Few, Urine Bacteria Few 12/06/17 05:56: Sodium Level 140, Potassium Level 3.8, Chloride Level 107, Carbon Dioxide Level 24, Anion Gap 10, Blood Urea Nitrogen 37H, Creatinine 1.6H, Estimat Glomerular Filtration Rate 38.9, Glucose Level 171H, Uric Acid 7.3H, Calcium Level 8.8, Phosphorus Level 2.0L, Magnesium Level 2.0, Total Bilirubin 0.3, Aspartate Amino Transf (AST/SGOT) 39H, Alanine Aminotransferase (ALT/SGPT) 27, Alkaline Phosphatase 70, Troponin I 1.650H, C-Reactive Protein, Quantitative 3.1H, Total Protein 5.6L, Albumin 2.7L, Globulin 2.9, Albumin/Globulin Ratio 0.9L Height (Feet): 5 Height (Inches): 6.00 Weight (Pounds): 185 General Appearance: no apparent distress Neck: normal alignment Cardiovascular: normal rate Respiratory/Chest: lungs clear Abdomen: normal bowel sounds Pelvis: normal external exam Objective Current Medications Medications (Trade) Dose Ordered Sig/Enrike Route PRN Reason Start Time Stop Time Status Last Admin Dose Admin Dextrose (Dextrose 50%) 25 ml PRN PRN IV HYPOGLYCEMIA 12/05/17 08:30 01/04/18 08:29 Dextrose (Dextrose 50%) 50 ml PRN PRN IV HYPOGLYCEMIA 12/05/17 08:30 01/04/18 08:29 Dextrose/ Electrolytes 1,000 ml @ 100 mls/hr Q10H IV 12/05/17 18:00 01/04/18 17:59 12/05/17 21:19 Haloperidol Lactate (Haldol) 5 mg Q6H PRN IM Agitation 12/05/17 16:15 01/04/18 16:14 Heparin Sodium (Porcine) (Heparin 5000 units/ml) 5,000 units EVERY 12 HOURS SUBQ 12/05/17 09:00 01/04/18 08:59 12/05/17 21:21 Insulin Human Regular (NovoLIN R) 5 units PRN PRN IV BS 200-299 12/05/17 08:30 01/04/18 08:29 12/06/17 04:38 Insulin Human Regular (NovoLIN R) 10 units PRN PRN IV BS=>300 12/05/17 08:30 01/04/18 08:29 12/05/17 12:15 Insulin Human Regular 100 units/ Sodium Chloride 100 ml @ 0 mls/hr Q24H IV 12/05/17 09:00 01/04/18 08:59 12/05/17 09:00 Levofloxacin 100 ml @ 100 mls/hr Q48H IVPB 12/05/17 12:00 12/12/17 11:59 12/05/17 12:24 Miscellaneous Medication (Insulin Rate Change) 1 ea PRN PRN MISC Hyperglycemia 12/05/17 08:30 01/04/18 08:29 12/06/17 06:18 Pantoprazole (Protonix) 40 mg DAILY IVP 12/05/17 09:00 01/04/18 08:59 12/05/17 09:00 Quetiapine Fumarate (SEROquel) 25 mg Q6H PRN ORAL For Anxiety 12/05/17 16:15 01/04/18 16:14 Quetiapine Fumarate (SEROquel) 50 mg BEDTIME ORAL 12/05/17 21:00 01/04/18 20:59 12/05/17 21:19 Item Value Date Time Bedside Blood Glucose 152 mg/dl H 12/06/17 0618 Bedside Blood Glucose 177 mg/dl H 12/06/17 0200 Bedside Blood Glucose 144 mg/dl H 12/05/17 1807 Bedside Blood Glucose 178 mg/dl H 12/05/17 2237 Bedside Blood Glucose 180 mg/dl H 12/05/17 1400 Mehdi Lopez MD Dec 06, 2017 06:45
[2017-12-06] MEDS ORDERED: Metoprolol Tartrate 12.5mg TAB ORAL SCH ×2 (08:30→21:00)
--- NOTE | 2017-12-06 08:38 | Pulmonolgy Critical Care Note ---
Critical Care - Asmt/Plan Problems: (1) DKA (diabetic ketoacidoses) Assessment & Plan: RESOLVED (2) Leukocytosis Assessment & Plan: IMPROVED (3) Hyperkalemia Assessment & Plan: RESOLVED (4) High anion gap metabolic acidosis Assessment & Plan: RESOLVED (5) NSTEMI (non-ST elevated myocardial infarction) Assessment & Plan: ACS vs demand ischemia (6) Diabetes mellitus out of control Respiratory: monitor respiratory rate, adjust FIO2 Cardiac: other - Start IVUH, ASA, STATIN, F/U TTE, F/U cards recs, trend troponin Renal: keep IV fluid, check electrolytes Infectious Disease: check cultures, continue antibiotics - per ID Gastrointestinal: other - Start PO with STRICT aspiration precautions Endocrine: monitor blood sugar, other - Insulin regimen per ENDO Prophylaxis: Protonix, Heparin Disposition: transfer to - [facility] Time Spent (Minutes): 40 Notes Reviewed: rating clerk, cardio, renal, ID, other - ENDO Discussed with: nurses, consultants Critical Care - Objective Last 24 Hour Vital Signs Date Time Temp Pulse Resp B/P (MAP) Pulse Ox O2 Delivery O2 Flow Rate FiO2 12/06/17 07:00 94 20 120/55 (76) 99 12/06/17 06:00 90 20 110/60 (77) 99 12/06/17 05:00 92 20 105/60 (75) 99 12/06/17 04:00 Room Air 12/06/17 04:00 96 12/06/17 04:00 98.2 93 20 100/46 (64) 99 98.2 12/06/17 03:00 94 20 108/40 (62) 99 12/06/17 02:00 99 21 110/80 (90) 99 12/06/17 01:00 97 21 117/80 (92) 99 12/06/17 00:00 98.6 101 20 98/51 (67) 100 98.6 12/06/17 00:00 100 12/06/17 00:00 Room Air 12/05/17 23:00 103 21 98/51 (67) 100 12/05/17 22:00 96 22 95/48 (64) 100 12/05/17 21:00 98 18 121/56 (77) 100 12/05/17 20:00 97 12/05/17 20:00 Room Air 12/05/17 20:00 98.7 97 18 121/57 (78) 100 98.7 12/05/17 19:00 90 20 116/52 (73) 100 12/05/17 18:00 93 19 95/51 (66) 100 12/05/17 17:00 94 16 108/47 (67) 100 12/05/17 16:00 98.6 95 22 105/55 (72) 99 98.6 12/05/17 16:00 98 12/05/17 16:00 Room Air 12/05/17 15:00 94 23 101/54 (70) 100 12/05/17 14:00 95 23 93/39 (57) 100 12/05/17 13:00 102 21 98/47 (64) 98 12/05/17 12:55 Room Air 12/05/17 12:00 98.6 99 21 95/41 (59) 99 98.6 12/05/17 12:00 77 12/05/17 12:00 Room Air 12/05/17 11:00 96 21 99/47 (64) 100 12/05/17 10:00 92 20 96/44 (61) 100 12/05/17 09:00 90 18 95/44 (61) 100 Status: awake Condition: improving HEENT: atraumatic, normocephalic Lungs: chest wall tender Heart: HR/BP stable Abdomen: soft, non-tender, active bowel sounds Extremities: no C/C/E Accucheck: 152 Blood Sugars: BS controlled Critical Care - Subjective ROS Limited/Unobtainable: Yes ICU Day: 2 Interval Events: Off insulin gtt, started on SQ Trop 1.65 Sleeping but arouseable Denies CP, SOB, no F/C Still NPO Condition: improving IV Access: peripheral EKG Rhythm: Sinus Rhythm Fluids: [id number]@100 I&O: Intake and Output 12/05/17 12/06/17 19:00 07:00 Intake Total 3700 ml 1020.2 ml Output Total 640 ml 550 ml Balance 3060 ml 470.2 ml IV Total 3700 ml 1020.2 ml Output Urine Total 640 ml 550 ml # Voids 13 # Bowel Movements 14 4 Subjective: No F/C/TORRES/Dizziness/CP/SOB/N/V/D/C/abdominal pain/urinary complaints No changes in vision/hearing/balance Active Scripts Medications Dose Route/Sig Max Daily Dose Days Date Category Lantus (Insulin Glargine) 100 Unit/1 Ml Insuln.pen 20 SUBQ DAILY 12/05/17 Reported Benazepril Hcl* (Benazepril HCl) 40 Mg Tablet 40 Mg ORAL DAILY 12/05/17 Reported Lipitor* (Atorvastatin Calcium) 80 Mg Tablet 80 Mg ORAL BEDTIME 12/05/17 Reported Aspirin* (Aspirin) 81 Mg Tab.chew 81 Mg ORAL DAILY 12/05/17 Reported Amlodipine Besylate* (Amlodipine Besylate) 5 Mg Tablet 5 Mg ORAL DAILY 12/05/17 Reported Humalog (Insulin Lispro) 100 Unit/1 Ml Cartridge 4 SUBQ DINNER 12/05/17 Reported Humalog (Insulin Lispro) 100 Unit/1 Ml Cartridge 8 SUBQ BREAKFAST,LUNCH 12/05/17 Reported Metformin Hcl* (Metformin HCl) 500 Mg Tablet 500 Mg ORAL TWICE A DAY 12/05/17 Reported CXR: NAD Labs: Laboratory Tests Test 12/05/17 09:18 12/05/17 10:45 12/05/17 14:20 12/05/17 18:00 Arterial Blood pH 7.348 (7.350-7.450) Arterial Blood Partial Pressure CO2 24.5 mmHg (35.0-45.0) *L Arterial Blood Partial Pressure O2 90.2 mmHg (75.0-100.0) Arterial Blood HCO3 13.2 mmol/L (22.0-26.0) L Arterial Blood Oxygen Saturation 96.0 % (92.0-98.0) Arterial Blood Base Excess -10.78 Isiah Test Positive White Blood Count 20.8 K/UL (4.8-10.8) H Red Blood Count 3.70 M/UL (4.20-5.40) L Hemoglobin 10.9 G/DL (12.0-16.0) L Hematocrit 33.3 % (37.0-47.0) L Mean Corpuscular Volume 90 FL (80-99) Mean Corpuscular Hemoglobin 29.5 PG (27.0-31.0) Mean Corpuscular Hemoglobin Concent 32.8 G/DL (32.0-36.0) Red Cell Distribution Width 12.0 % (11.6-14.8) Platelet Count 187 K/UL (150-450) Mean Platelet Volume 8.9 FL (6.5-10.1) Neutrophils (%) (Auto) % (45.0-75.0) Lymphocytes (%) (Auto) % (20.0-45.0) Monocytes (%) (Auto) % (1.0-10.0) Eosinophils (%) (Auto) % (0.0-3.0) Basophils (%) (Auto) % (0.0-2.0) Differential Total Cells Counted 100 Neutrophils % (Manual) 70 % (45-75) Lymphocytes % (Manual) 20 % (20-45) Monocytes % (Manual) 7 % (1-10) Eosinophils % (Manual) 0 % (0-3) Basophils % (Manual) 0 % (0-2) Band Neutrophils 3 % (0-8) Platelet Estimate Adequate Platelet Morphology Normal Target Cells Haptoglobin Pending Prothrombin Time 10.6 SEC (9.30-11.50) Prothromb Time International Ratio 1.0 (0.9-1.1) Sodium Level 139 MMOL/L (136-145) 141 MMOL/L (136-145) 138 MMOL/L (136-145) Potassium Level 4.1 MMOL/L (3.5-5.1) 3.8 MMOL/L (3.5-5.1) 4.5 MMOL/L (3.5-5.1) Chloride Level 102 MMOL/L (98-107) 105 MMOL/L (98-107) 105 MMOL/L (98-107) Carbon Dioxide Level 19 MMOL/L (21-32) L 21 MMOL/L (21-32) 19 MMOL/L (21-32) L Anion Gap 18 mmol/L (5-15) H 15 mmol/L (5-15) 15 mmol/L (5-15) Blood Urea Nitrogen 44 mg/dL (7-18) H 45 mg/dL (7-18) H 44 mg/dL (7-18) H Creatinine 2.4 MG/DL (0.55-1.30) H 2.0 MG/DL (0.55-1.30) H 1.7 MG/DL (0.55-1.30) H Estimat Glomerular Filtration Rate 24.4 mL/min (>60) 30.2 mL/min (>60) 36.4 mL/min (>60) Glucose Level 372 MG/DL (74-106) #H 161 MG/DL (74-106) #H 161 MG/DL (74-106) H Hemoglobin A1c 10.3 % (4.3-6.0) H Lactic Acid Level 3.10 mmol/L (0.4-2.0) H 3.20 mmol/L (0.66-2.22) H Calcium Level 8.5 MG/DL (8.5-10.1) 8.8 MG/DL (8.5-10.1) 8.4 MG/DL (8.5-10.1) L Iron Level 23 ug/dL (50-175) L Total Iron Binding Capacity 225 ug/dL (250-450) L Percent Iron Saturation 10 % (15-50) L Unsaturated Iron Binding 202 ug/dL (112-346) Ferritin 1890 NG/ML (8-388) H Total Bilirubin 0.4 MG/DL (0.2-1.0) 0.3 MG/DL (0.2-1.0) 0.4 MG/DL (0.2-1.0) Aspartate Amino Transf (AST/SGOT) 37 U/L (15-37) 38 U/L (15-37) H 52 U/L (15-37) H Alanine Aminotransferase (ALT/SGPT) 30 U/L (12-78) 26 U/L (12-78) 26 U/L (12-78) Alkaline Phosphatase 84 U/L (46-116) 82 U/L (46-116) 76 U/L (46-116) Total Protein 6.7 G/DL (6.4-8.2) 5.9 G/DL (6.4-8.2) L 6.0 G/DL (6.4-8.2) L Albumin 3.4 G/DL (3.4-5.0) 3.3 G/DL (3.4-5.0) L 2.8 G/DL (3.4-5.0) L Globulin 3.3 g/dL 2.6 g/dL 3.2 g/dL Albumin/Globulin Ratio 1.0 (1.0-2.7) 1.3 (1.0-2.7) 0.9 (1.0-2.7) L Thyroid Stimulating Hormone (TSH) 0.208 uiU/mL (0.358-3.740) Test 12/05/17 21:25 12/06/17 00:22 12/06/17 05:00 12/06/17 05:56 Arterial Blood pH 7.407 (7.350-7.450) Arterial Blood Partial Pressure CO2 29.9 mmHg (35.0-45.0) L Arterial Blood Partial Pressure O2 86.5 mmHg (75.0-100.0) Arterial Blood HCO3 18.4 mmol/L (22.0-26.0) L Arterial Blood Oxygen Saturation 96.3 % (92.0-98.0) Arterial Blood Base Excess -5.2 Isiah Test Positive Sodium Level 140 MMOL/L (136-145) 140 MMOL/L (136-145) Potassium Level 4.1 MMOL/L (3.5-5.1) 3.8 MMOL/L (3.5-5.1) Chloride Level 106 MMOL/L (98-107) 107 MMOL/L (98-107) Carbon Dioxide Level 22 MMOL/L (21-32) 24 MMOL/L (21-32) Anion Gap 12 mmol/L (5-15) 10 mmol/L (5-15) Blood Urea Nitrogen 41 mg/dL (7-18) H 37 mg/dL (7-18) H Creatinine 1.6 MG/DL (0.55-1.30) H 1.6 MG/DL (0.55-1.30) H Estimat Glomerular Filtration Rate 38.9 mL/min (>60) 38.9 mL/min (>60) Glucose Level 201 MG/DL (74-106) H 171 MG/DL (74-106) H Calcium Level 8.6 MG/DL (8.5-10.1) 8.8 MG/DL (8.5-10.1) Urine Color Yellow Urine Appearance Clear Urine pH 5 (4.5-8.0) Urine Specific [place] 1.020 (1.005-1.035) Urine Protein 2+ (NEGATIVE) H Urine Glucose (UA) 3+ (NEGATIVE) H Urine Ketones 2+ (NEGATIVE) H Urine Occult Blood 4+ (NEGATIVE) H Urine Nitrite Negative (NEGATIVE) Urine Bilirubin Negative (NEGATIVE) Urine Urobilinogen Normal MG/DL (0.0-1.0) Urine Leukocyte Esterase Negative (NEGATIVE) Urine RBC 40-60 /HPF (0 - 2) H Urine WBC 2-4 /HPF (0 - 2) Urine Squamous Epithelial Cells Few /LPF (NONE/OCC) Urine Bacteria Few /HPF (NONE) Uric Acid 7.3 MG/DL (2.6-7.2) H Phosphorus Level 2.0 MG/DL (2.5-4.9) L Magnesium Level 2.0 MG/DL (1.8-2.4) Total Bilirubin 0.3 MG/DL (0.2-1.0) Aspartate Amino Transf (AST/SGOT) 39 U/L (15-37) H Alanine Aminotransferase (ALT/SGPT) 27 U/L (12-78) Alkaline Phosphatase 70 U/L (46-116) Troponin I 1.650 ng/mL (0.000-0.056) C-Reactive Protein, Quantitative 3.1 mg/dL (0.00-0.90) H Total Protein 5.6 G/DL (6.4-8.2) L Albumin 2.7 G/DL (3.4-5.0) L Globulin 2.9 g/dL Albumin/Globulin Ratio 0.9 (1.0-2.7) L James Ellis MD Dec 06, 2017 08:38
[2017-12-06] MEDS: Docusate 100mg cap ORAL SCH ×2 (09:00→17:21)
[2017-12-06] MEDS: Metoprolol Tartrate 12.5mg TAB ORAL SCH ×2 (09:00→20:36)
[2017-12-06 09:02] LABS: CHOLESTEROL 130 MG/DL (< 200); CREATINE KINASE 404 U/L (26-308); HDL CHOLESTEROL 90 MG/DL (40-60); TRIGLYCERIDES 77 MG/DL (30-150)
--- NOTE | 2017-12-06 09:16 | Nephrology Progress Note ---
Assessment/Plan Problem List: (1) Acute on chronic renal failure (2) Hyperkalemia (3) DKA (diabetic ketoacidoses) (4) Diabetes mellitus out of control (5) NSTEMI (non-ST elevated myocardial infarction) Assessment (1) DKA (diabetic ketoacidoses) (2) Leukocytosis ? undelrlying sepsis (3) Hyperkalemia, and acute renal failure, likely dehydration (4) High anion gap metabolic acidosis Plan asa, heparin, lopressor, nitrate K Phos IV IV Fluid- Watch K and Phos , supplement as needed Insulin treatment Monitor lytes and renal parameters- 2D echo pending avoid nephrotoxics- discussed with Dr minor Cardio eval Subjective ROS Limited/Unobtainable: No Constitutional: Reports: malaise Objective Objective Last 24 Hour Vital Signs Date Time Temp Pulse Resp B/P (MAP) Pulse Ox O2 Delivery O2 Flow Rate FiO2 12/06/17 07:00 94 20 120/55 (76) 99 12/06/17 06:00 90 20 110/60 (77) 99 12/06/17 05:00 92 20 105/60 (75) 99 12/06/17 04:00 Room Air 12/06/17 04:00 96 12/06/17 04:00 98.2 93 20 100/46 (64) 99 98.2 12/06/17 03:00 94 20 108/40 (62) 99 12/06/17 02:00 99 21 110/80 (90) 99 12/06/17 01:00 97 21 117/80 (92) 99 12/06/17 00:00 98.6 101 20 98/51 (67) 100 98.6 12/06/17 00:00 100 12/06/17 00:00 Room Air 12/05/17 23:00 103 21 98/51 (67) 100 12/05/17 22:00 96 22 95/48 (64) 100 12/05/17 21:00 98 18 121/56 (77) 100 12/05/17 20:00 97 12/05/17 20:00 Room Air 12/05/17 20:00 98.7 97 18 121/57 (78) 100 98.7 12/05/17 19:00 90 20 116/52 (73) 100 12/05/17 18:00 93 19 95/51 (66) 100 12/05/17 17:00 94 16 108/47 (67) 100 12/05/17 16:00 98.6 95 22 105/55 (72) 99 98.6 12/05/17 16:00 98 12/05/17 16:00 Room Air 12/05/17 15:00 94 23 101/54 (70) 100 12/05/17 14:00 95 23 93/39 (57) 100 12/05/17 13:00 102 21 98/47 (64) 98 12/05/17 12:55 Room Air 12/05/17 12:00 98.6 99 21 95/41 (59) 99 98.6 12/05/17 12:00 77 12/05/17 12:00 Room Air 12/05/17 11:00 96 21 99/47 (64) 100 12/05/17 10:00 92 20 96/44 (61) 100 Intake and Output 12/05/17 12/06/17 19:00 07:00 Intake Total 3700 ml 1020.2 ml Output Total 640 ml 550 ml Balance 3060 ml 470.2 ml IV Total 3700 ml 1020.2 ml Output Urine Total 640 ml 550 ml # Voids 13 # Bowel Movements 14 4 Laboratory Tests 12/05/17 09:18: Arterial Blood pH 7.348L, Arterial Blood Partial Pressure CO2 24.5*L, Arterial Blood Partial Pressure O2 90.2, Arterial Blood HCO3 13.2L, Arterial Blood Oxygen Saturation 96.0, Arterial Blood Base Excess -10.78, Isiah Test Positive 12/05/17 10:45: White Blood Count 20.8H, Red Blood Count 3.70L, Hemoglobin 10.9L, Hematocrit 33.3L, Mean Corpuscular Volume 90, Mean Corpuscular Hemoglobin 29.5, Mean Corpuscular Hemoglobin Concent 32.8, Red Cell Distribution Width 12.0, Platelet Count 187, Mean Platelet Volume 8.9, Neutrophils (%) (Auto) , Lymphocytes (%) ( Auto) , Monocytes (%) (Auto) , Eosinophils (%) (Auto) , Basophils (%) (Auto) , Differential Total Cells Counted 100, Neutrophils % (Manual) 70, Lymphocytes % ( Manual) 20, Monocytes % (Manual) 7, Eosinophils % (Manual) 0, Basophils % ( Manual) 0, Band Neutrophils 3, Platelet Estimate Adequate, Platelet Morphology Normal, Target Cells , Haptoglobin [Pending], Prothrombin Time 10.6, Prothromb Time International Ratio 1.0, Sodium Level 139, Potassium Level 4.1, Chloride Level 102, Carbon Dioxide Level 19L, Anion Gap 18H, Blood Urea Nitrogen 44H, Creatinine 2.4H, Estimat Glomerular Filtration Rate 24.4, Glucose Level 372#H, Hemoglobin A1c 10.3H, Lactic Acid Level 3.10H, Calcium Level 8.5, Iron Level 23L , Total Iron Binding Capacity 225L, Percent Iron Saturation 10L, Unsaturated Iron Binding 202, Ferritin 1890H, Total Bilirubin 0.4, Aspartate Amino Transf ( AST/SGOT) 37, Alanine Aminotransferase (ALT/SGPT) 30, Alkaline Phosphatase 84, Total Protein 6.7, Albumin 3.4, Globulin 3.3, Albumin/Globulin Ratio 1.0, Thyroid Stimulating Hormone (TSH) 0.208L 12/05/17 14:20: Sodium Level 141, Potassium Level 3.8, Chloride Level 105, Carbon Dioxide Level 21, Anion Gap 15, Blood Urea Nitrogen 45H, Creatinine 2.0H, Estimat Glomerular Filtration Rate 30.2, Glucose Level 161#H, Lactic Acid Level 3.20H, Calcium Level 8.8, Total Bilirubin 0.3, Aspartate Amino Transf (AST/SGOT) 38H, Alanine Aminotransferase (ALT/SGPT) 26, Alkaline Phosphatase 82, Total Protein 5.9L, Albumin 3.3L, Globulin 2.6, Albumin/Globulin Ratio 1.3 12/05/17 18:00: Sodium Level 138, Potassium Level 4.5, Chloride Level 105, Carbon Dioxide Level 19L, Anion Gap 15, Blood Urea Nitrogen 44H, Creatinine 1.7H, Estimat Glomerular Filtration Rate 36.4, Glucose Level 161H, Calcium Level 8.4L, Total Bilirubin 0.4, Aspartate Amino Transf (AST/SGOT) 52H, Alanine Aminotransferase (ALT/SGPT) 26, Alkaline Phosphatase 76, Total Protein 6.0L, Albumin 2.8L, Globulin 3.2, Albumin/Globulin Ratio 0.9L 12/05/17 21:25: Arterial Blood pH 7.407, Arterial Blood Partial Pressure CO2 29.9L, Arterial Blood Partial Pressure O2 86.5, Arterial Blood HCO3 18.4L, Arterial Blood Oxygen Saturation 96.3, Arterial Blood Base Excess -5.2, Isiah Test Positive 12/06/17 00:22: Sodium Level 140, Potassium Level 4.1, Chloride Level 106, Carbon Dioxide Level 22, Anion Gap 12, Blood Urea Nitrogen 41H, Creatinine 1.6H, Estimat Glomerular Filtration Rate 38.9, Glucose Level 201H, Calcium Level 8.6 12/06/17 05:00: Urine Color Yellow, Urine Appearance Clear, Urine pH 5, Urine Specific [place] 1.020, Urine Protein 2+H, Urine Glucose (UA) 3+H, Urine Ketones 2+H, Urine Occult Blood 4+H, Urine Nitrite Negative, Urine Bilirubin Negative, Urine Urobilinogen Normal, Urine Leukocyte Esterase Negative, Urine RBC 40-60H, Urine WBC 2-4, Urine Squamous Epithelial Cells Few, Urine Bacteria Few 12/06/17 05:56: Sodium Level 140, Potassium Level 3.8, Chloride Level 107, Carbon Dioxide Level 24, Anion Gap 10, Blood Urea Nitrogen 37H, Creatinine 1.6H, Estimat Glomerular Filtration Rate 38.9, Glucose Level 171H, Calcium Level 8.8, Uric Acid 7.3H, Phosphorus Level 2.0L, Magnesium Level 2.0, Total Bilirubin 0.3, Aspartate Amino Transf (AST/SGOT) 39H, Alanine Aminotransferase (ALT/SGPT) 27, Alkaline Phosphatase 70, Total Creatine Kinase [Pending], Troponin I 1.650H, C-Reactive Protein, Quantitative 3.1H, Total Protein 5.6L, Albumin 2.7L, Globulin 2.9, Albumin/Globulin Ratio 0.9L, Triglycerides Level [Pending], Cholesterol Level [ Pending], LDL Cholesterol [Pending], HDL Cholesterol [Pending], Cholesterol/HDL Ratio [Pending] Height (Feet): 5 Height (Inches): 6.00 Weight (Pounds): 171 General Appearance: no apparent distress Cardiovascular: tachycardia Respiratory/Chest: lungs clear Abdomen: soft Amandeep Shaw MD Dec 06, 2017 09:16
[2017-12-06] MEDS ORDERED: Heparin 25,000u/D5W 500ml 500 ML IV SCH ×2 (09:30→20:30)
[2017-12-06] MEDS: Aspirin Baby 81mg ORAL SCH (09:53)
[2017-12-06] MEDS: D5 1/2NS w/KCl 20mEq 1,000 ML IV SCH ×2 (09:53→20:00)
[2017-12-06] MEDS: Nitroglycerin Patch 0.4mg TDERMAL SCH (09:54)
[2017-12-06] MEDS: NovoLOG Insulin Flexpen SUBQ SCH ×4 (09:58→20:54)
[2017-12-06] MEDS: Levemir Flexpen SUBQ SCH ×2 (09:59→20:54)
[2017-12-06] MEDS ORDERED: Potassium Phosphate 30 MM in NS 275 ML IV SCH (10:00)
--- NOTE | 2017-12-06 12:39 | General Progress Note ---
Assessment/Plan Status: stable, progressing Assessment/Plan encephalopathy Agitation -seroquel 25mg q 6hr/prn/agitation -haldol prn Subjective Date patient seen: Dec 06, 2017 Neurologic/Psychiatric: Reports: anxiety, depressed, emotional problems Allergies: Coded Allergies: PENICILLINS (Verified Allergy, Unknown, 12/05/17) Objective Last 24 Hour Vital Signs Date Time Temp Pulse Resp B/P (MAP) Pulse Ox O2 Delivery O2 Flow Rate FiO2 12/06/17 10:00 97 21 109/43 (65) 98 12/06/17 09:54 104/39 12/06/17 09:00 97 19 104/39 (60) 100 12/06/17 08:00 98.6 96 22 103/46 (65) 99 98.6 12/06/17 08:00 Room Air 12/06/17 07:00 94 20 120/55 (76) 99 12/06/17 06:00 90 20 110/60 (77) 99 12/06/17 05:00 92 20 105/60 (75) 99 12/06/17 04:00 Room Air 12/06/17 04:00 96 12/06/17 04:00 98.2 93 20 100/46 (64) 99 98.2 12/06/17 03:00 94 20 108/40 (62) 99 12/06/17 02:00 99 21 110/80 (90) 99 12/06/17 01:00 97 21 117/80 (92) 99 12/06/17 00:00 98.6 101 20 98/51 (67) 100 98.6 12/06/17 00:00 100 12/06/17 00:00 Room Air 12/05/17 23:00 103 21 98/51 (67) 100 12/05/17 22:00 96 22 95/48 (64) 100 12/05/17 21:00 98 18 121/56 (77) 100 12/05/17 20:00 97 12/05/17 20:00 Room Air 12/05/17 20:00 98.7 97 18 121/57 (78) 100 98.7 12/05/17 19:00 90 20 116/52 (73) 100 12/05/17 18:00 93 19 95/51 (66) 100 12/05/17 17:00 94 16 108/47 (67) 100 12/05/17 16:00 98.6 95 22 105/55 (72) 99 98.6 12/05/17 16:00 98 12/05/17 16:00 Room Air 12/05/17 15:00 94 23 101/54 (70) 100 12/05/17 14:00 95 23 93/39 (57) 100 12/05/17 13:00 102 21 98/47 (64) 98 12/05/17 12:55 Room Air Intake and Output 12/05/17 12/06/17 19:00 07:00 Intake Total 3700 ml 1020.2 ml Output Total 640 ml 550 ml Balance 3060 ml 470.2 ml IV Total 3700 ml 1020.2 ml Output Urine Total 640 ml 550 ml # Voids 13 # Bowel Movements 14 4 Laboratory Tests 12/05/17 14:20: Sodium Level 141, Potassium Level 3.8, Chloride Level 105, Carbon Dioxide Level 21, Anion Gap 15, Blood Urea Nitrogen 45H, Creatinine 2.0H, Estimat Glomerular Filtration Rate 30.2, Glucose Level 161#H, Lactic Acid Level 3.20H, Calcium Level 8.8, Total Bilirubin 0.3, Aspartate Amino Transf (AST/SGOT) 38H, Alanine Aminotransferase (ALT/SGPT) 26, Alkaline Phosphatase 82, Total Protein 5.9L, Albumin 3.3L, Globulin 2.6, Albumin/Globulin Ratio 1.3 12/05/17 18:00: Sodium Level 138, Potassium Level 4.5, Chloride Level 105, Carbon Dioxide Level 19L, Anion Gap 15, Blood Urea Nitrogen 44H, Creatinine 1.7H, Estimat Glomerular Filtration Rate 36.4, Glucose Level 161H, Calcium Level 8.4L, Total Bilirubin 0.4, Aspartate Amino Transf (AST/SGOT) 52H, Alanine Aminotransferase (ALT/SGPT) 26, Alkaline Phosphatase 76, Total Protein 6.0L, Albumin 2.8L, Globulin 3.2, Albumin/Globulin Ratio 0.9L 12/05/17 21:25: Arterial Blood pH 7.407, Arterial Blood Partial Pressure CO2 29.9L, Arterial Blood Partial Pressure O2 86.5, Arterial Blood HCO3 18.4L, Arterial Blood Oxygen Saturation 96.3, Arterial Blood Base Excess -5.2, Isiah Test Positive 12/06/17 00:22: Sodium Level 140, Potassium Level 4.1, Chloride Level 106, Carbon Dioxide Level 22, Anion Gap 12, Blood Urea Nitrogen 41H, Creatinine 1.6H, Estimat Glomerular Filtration Rate 38.9, Glucose Level 201H, Calcium Level 8.6 12/06/17 05:00: Urine Color Yellow, Urine Appearance Clear, Urine pH 5, Urine Specific [place] 1.020, Urine Protein 2+H, Urine Glucose (UA) 3+H, Urine Ketones 2+H, Urine Occult Blood 4+H, Urine Nitrite Negative, Urine Bilirubin Negative, Urine Urobilinogen Normal, Urine Leukocyte Esterase Negative, Urine RBC 40-60H, Urine WBC 2-4, Urine Squamous Epithelial Cells Few, Urine Bacteria Few 12/06/17 05:56: Sodium Level 140, Potassium Level 3.8, Chloride Level 107, Carbon Dioxide Level 24, Anion Gap 10, Blood Urea Nitrogen 37H, Creatinine 1.6H, Estimat Glomerular Filtration Rate 38.9, Glucose Level 171H, Uric Acid 7.3H, Calcium Level 8.8, Phosphorus Level 2.0L, Magnesium Level 2.0, Total Bilirubin 0.3, Aspartate Amino Transf (AST/SGOT) 39H, Alanine Aminotransferase (ALT/SGPT) 27, Alkaline Phosphatase 70, Total Creatine Kinase 404H, Troponin I 1.650H, C-Reactive Protein, Quantitative 3.1H, Total Protein 5.6L, Albumin 2.7L, Globulin 2.9, Albumin/Globulin Ratio 0.9L, Triglycerides Level 77, Cholesterol Level 130, LDL Cholesterol 46, HDL Cholesterol 90H, Cholesterol/HDL Ratio 1.4L 12/06/17 08:55: Activated Partial Thromboplast Time 25 12/06/17 11:50: Troponin I [Pending] Height (Feet): 5 Height (Inches): 6.00 Weight (Pounds): 171 General Appearance: no apparent distress, alert, confused - the pt is more lucid and not agitated Neurologic: depressed affect Jeanette Jerez MD Dec 06, 2017 12:39
--- NOTE | 2017-12-06 13:17 | General Progress Note ---
Assessment/Plan Status: stable Assessment/Plan 1. Leukocytosis likely secondary to underlying diabetic ketoacidosis, rule out underlying infection. --> Chest x-ray: No acute process; urinalysis ++ --> Obtain peripheral smear. --> WBC improving. 2. Anemia due to underlying chronic disease. --> Continue to closely monitor for improvement. --> Anemia w/u has been reviewed. Will trend cbc daily. --> Hgb goal >7 3. Hyperkalemia. given Kayexalate. 4. Diabetic ketoacidosis. She has been seen by Pulmonary team, Dr. Ellis. 5. High anion gap acidosis. To be seen by primary team. --> Gap is closing. On insulin sliding scale insulin. 6. Shortness of breath likely, due to underlying diabetic ketoacidosis. The time the note was entered does not necessarily correspond to the time the patient was seen. Subjective Date patient seen: Dec 06, 2017 ROS Limited/Unobtainable: Yes Constitutional: Reports: malaise Hematologic/Lymphatic: Reports: anemia Allergies: Coded Allergies: PENICILLINS (Verified Allergy, Unknown, 12/05/17) All Systems: reviewed and negative except above Subjective Pt remains in ICU. Pt awake and alert. No acute events. Objective Last 24 Hour Vital Signs Date Time Temp Pulse Resp B/P (MAP) Pulse Ox O2 Delivery O2 Flow Rate FiO2 12/06/17 12:00 93 12/06/17 10:00 97 21 109/43 (65) 98 12/06/17 09:54 104/39 12/06/17 09:00 97 19 104/39 (60) 100 12/06/17 08:00 98.6 96 22 103/46 (65) 99 98.6 12/06/17 08:00 92 12/06/17 08:00 Room Air 12/06/17 07:00 94 20 120/55 (76) 99 12/06/17 06:00 90 20 110/60 (77) 99 12/06/17 05:00 92 20 105/60 (75) 99 12/06/17 04:00 Room Air 12/06/17 04:00 96 12/06/17 04:00 98.2 93 20 100/46 (64) 99 98.2 12/06/17 03:00 94 20 108/40 (62) 99 12/06/17 02:00 99 21 110/80 (90) 99 12/06/17 01:00 97 21 117/80 (92) 99 12/06/17 00:00 98.6 101 20 98/51 (67) 100 98.6 12/06/17 00:00 100 12/06/17 00:00 Room Air 12/05/17 23:00 103 21 98/51 (67) 100 12/05/17 22:00 96 22 95/48 (64) 100 12/05/17 21:00 98 18 121/56 (77) 100 12/05/17 20:00 97 12/05/17 20:00 Room Air 12/05/17 20:00 98.7 97 18 121/57 (78) 100 98.7 12/05/17 19:00 90 20 116/52 (73) 100 12/05/17 18:00 93 19 95/51 (66) 100 12/05/17 17:00 94 16 108/47 (67) 100 12/05/17 16:00 98.6 95 22 105/55 (72) 99 98.6 12/05/17 16:00 98 12/05/17 16:00 Room Air 12/05/17 15:00 94 23 101/54 (70) 100 12/05/17 14:00 95 23 93/39 (57) 100 Intake and Output 12/05/17 12/06/17 19:00 07:00 Intake Total 3700 ml 1020.2 ml Output Total 640 ml 550 ml Balance 3060 ml 470.2 ml IV Total 3700 ml 1020.2 ml Output Urine Total 640 ml 550 ml # Voids 13 # Bowel Movements 14 4 Laboratory Tests 12/05/17 14:20: Sodium Level 141, Potassium Level 3.8, Chloride Level 105, Carbon Dioxide Level 21, Anion Gap 15, Blood Urea Nitrogen 45H, Creatinine 2.0H, Estimat Glomerular Filtration Rate 30.2, Glucose Level 161#H, Lactic Acid Level 3.20H, Calcium Level 8.8, Total Bilirubin 0.3, Aspartate Amino Transf (AST/SGOT) 38H, Alanine Aminotransferase (ALT/SGPT) 26, Alkaline Phosphatase 82, Total Protein 5.9L, Albumin 3.3L, Globulin 2.6, Albumin/Globulin Ratio 1.3 12/05/17 18:00: Sodium Level 138, Potassium Level 4.5, Chloride Level 105, Carbon Dioxide Level 19L, Anion Gap 15, Blood Urea Nitrogen 44H, Creatinine 1.7H, Estimat Glomerular Filtration Rate 36.4, Glucose Level 161H, Calcium Level 8.4L, Total Bilirubin 0.4, Aspartate Amino Transf (AST/SGOT) 52H, Alanine Aminotransferase (ALT/SGPT) 26, Alkaline Phosphatase 76, Total Protein 6.0L, Albumin 2.8L, Globulin 3.2, Albumin/Globulin Ratio 0.9L 12/05/17 21:25: Arterial Blood pH 7.407, Arterial Blood Partial Pressure CO2 29.9L, Arterial Blood Partial Pressure O2 86.5, Arterial Blood HCO3 18.4L, Arterial Blood Oxygen Saturation 96.3, Arterial Blood Base Excess -5.2, Isiah Test Positive 12/06/17 00:22: Sodium Level 140, Potassium Level 4.1, Chloride Level 106, Carbon Dioxide Level 22, Anion Gap 12, Blood Urea Nitrogen 41H, Creatinine 1.6H, Estimat Glomerular Filtration Rate 38.9, Glucose Level 201H, Calcium Level 8.6 12/06/17 05:00: Urine Color Yellow, Urine Appearance Clear, Urine pH 5, Urine Specific [place] 1.020, Urine Protein 2+H, Urine Glucose (UA) 3+H, Urine Ketones 2+H, Urine Occult Blood 4+H, Urine Nitrite Negative, Urine Bilirubin Negative, Urine Urobilinogen Normal, Urine Leukocyte Esterase Negative, Urine RBC 40-60H, Urine WBC 2-4, Urine Squamous Epithelial Cells Few, Urine Bacteria Few 12/06/17 05:56: Sodium Level 140, Potassium Level 3.8, Chloride Level 107, Carbon Dioxide Level 24, Anion Gap 10, Blood Urea Nitrogen 37H, Creatinine 1.6H, Estimat Glomerular Filtration Rate 38.9, Glucose Level 171H, Uric Acid 7.3H, Calcium Level 8.8, Phosphorus Level 2.0L, Magnesium Level 2.0, Total Bilirubin 0.3, Aspartate Amino Transf (AST/SGOT) 39H, Alanine Aminotransferase (ALT/SGPT) 27, Alkaline Phosphatase 70, Total Creatine Kinase 404H, Troponin I 1.650H, C-Reactive Protein, Quantitative 3.1H, Total Protein 5.6L, Albumin 2.7L, Globulin 2.9, Albumin/Globulin Ratio 0.9L, Triglycerides Level 77, Cholesterol Level 130, LDL Cholesterol 46, HDL Cholesterol 90H, Cholesterol/HDL Ratio 1.4L 12/06/17 08:55: Activated Partial Thromboplast Time 25 12/06/17 11:50: Troponin I 1.139H Height (Feet): 5 Height (Inches): 6.00 Weight (Pounds): 171 General Appearance: no apparent distress, alert EENT: PERRL/EOMI Cardiovascular: normal peripheral pulses Respiratory/Chest: normal breath sounds, no respiratory distress Abdomen: soft David De Jesus MD Dec 06, 2017 13:17
--- NOTE | 2017-12-06 13:45 | Infectious Diseases Prog Note ---
Assessment/Plan Assessment/Plan A: SIRS DKA improving NSTE-[place] Acute renal failure improving Hyperkalemia, corrected P; Discontinue Levaquin Observe off antibiotic Subjective ROS Limited/Unobtainable: No Constitutional: Reports: anorexia, other - feels better Respiratory: Reports: no symptoms Cardiovascular: Reports: no symptoms Gastrointestinal/Abdominal: Reports: no symptoms Genitourinary: Reports: no symptoms Endocrine: Reports: other - off insulin drip Allergies: Coded Allergies: PENICILLINS (Verified Allergy, Unknown, 12/05/17) Objective Vital Signs Last 24 Hour Vital Signs Date Time Temp Pulse Resp B/P (MAP) Pulse Ox O2 Delivery O2 Flow Rate FiO2 12/06/17 12:00 93 12/06/17 10:00 97 21 109/43 (65) 98 12/06/17 09:54 104/39 12/06/17 09:00 97 19 104/39 (60) 100 12/06/17 08:00 98.6 96 22 103/46 (65) 99 98.6 12/06/17 08:00 92 12/06/17 08:00 Room Air 12/06/17 07:00 94 20 120/55 (76) 99 12/06/17 06:00 90 20 110/60 (77) 99 12/06/17 05:00 92 20 105/60 (75) 99 12/06/17 04:00 Room Air 12/06/17 04:00 96 12/06/17 04:00 98.2 93 20 100/46 (64) 99 98.2 12/06/17 03:00 94 20 108/40 (62) 99 12/06/17 02:00 99 21 110/80 (90) 99 12/06/17 01:00 97 21 117/80 (92) 99 12/06/17 00:00 98.6 101 20 98/51 (67) 100 98.6 12/06/17 00:00 100 12/06/17 00:00 Room Air 12/05/17 23:00 103 21 98/51 (67) 100 12/05/17 22:00 96 22 95/48 (64) 100 12/05/17 21:00 98 18 121/56 (77) 100 12/05/17 20:00 97 12/05/17 20:00 Room Air 12/05/17 20:00 98.7 97 18 121/57 (78) 100 98.7 12/05/17 19:00 90 20 116/52 (73) 100 12/05/17 18:00 93 19 95/51 (66) 100 12/05/17 17:00 94 16 108/47 (67) 100 12/05/17 16:00 98.6 95 22 105/55 (72) 99 98.6 12/05/17 16:00 98 12/05/17 16:00 Room Air 12/05/17 15:00 94 23 101/54 (70) 100 12/05/17 14:00 95 23 93/39 (57) 100 Height (Feet): 5 Height (Inches): 6.00 Weight (Pounds): 171 General Appearance: no acute distress HEENT: mucous membranes moist Respiratory/Chest: lungs clear Cardiovascular: normal rate, regular rhythm Abdomen: soft, non tender Extremities: no edema Neurologic/Psychiatric: alert, oriented x 3, responsive Laboratory Tests Test 12/05/17 14:20 12/05/17 18:00 12/05/17 21:25 12/06/17 00:22 Sodium Level 141 MMOL/L (136-145) 138 MMOL/L (136-145) 140 MMOL/L (136-145) Potassium Level 3.8 MMOL/L (3.5-5.1) 4.5 MMOL/L (3.5-5.1) 4.1 MMOL/L (3.5-5.1) Chloride Level 105 MMOL/L (98-107) 105 MMOL/L (98-107) 106 MMOL/L (98-107) Carbon Dioxide Level 21 MMOL/L (21-32) 19 MMOL/L (21-32) L 22 MMOL/L (21-32) Anion Gap 15 mmol/L (5-15) 15 mmol/L (5-15) 12 mmol/L (5-15) Blood Urea Nitrogen 45 mg/dL (7-18) H 44 mg/dL (7-18) H 41 mg/dL (7-18) H Creatinine 2.0 MG/DL (0.55-1.30) H 1.7 MG/DL (0.55-1.30) H 1.6 MG/DL (0.55-1.30) H Estimat Glomerular Filtration Rate 30.2 mL/min (>60) 36.4 mL/min (>60) 38.9 mL/min (>60) Glucose Level 161 MG/DL (74-106) #H 161 MG/DL (74-106) H 201 MG/DL (74-106) H Lactic Acid Level 3.20 mmol/L (0.66-2.22) H Calcium Level 8.8 MG/DL (8.5-10.1) 8.4 MG/DL (8.5-10.1) L 8.6 MG/DL (8.5-10.1) Total Bilirubin 0.3 MG/DL (0.2-1.0) 0.4 MG/DL (0.2-1.0) Aspartate Amino Transf (AST/SGOT) 38 U/L (15-37) H 52 U/L (15-37) H Alanine Aminotransferase (ALT/SGPT) 26 U/L (12-78) 26 U/L (12-78) Alkaline Phosphatase 82 U/L (46-116) 76 U/L (46-116) Total Protein 5.9 G/DL (6.4-8.2) L 6.0 G/DL (6.4-8.2) L Albumin 3.3 G/DL (3.4-5.0) L 2.8 G/DL (3.4-5.0) L Globulin 2.6 g/dL 3.2 g/dL Albumin/Globulin Ratio 1.3 (1.0-2.7) 0.9 (1.0-2.7) L Arterial Blood pH 7.407 (7.350-7.450) Arterial Blood Partial Pressure CO2 29.9 mmHg (35.0-45.0) L Arterial Blood Partial Pressure O2 86.5 mmHg (75.0-100.0) Arterial Blood HCO3 18.4 mmol/L (22.0-26.0) L Arterial Blood Oxygen Saturation 96.3 % (92.0-98.0) Arterial Blood Base Excess -5.2 Isiah Test Positive Test 12/06/17 05:00 12/06/17 05:56 12/06/17 08:55 12/06/17 11:50 Urine Color Yellow Urine Appearance Clear Urine pH 5 (4.5-8.0) Urine Specific [place] 1.020 (1.005-1.035) Urine Protein 2+ (NEGATIVE) H Urine Glucose (UA) 3+ (NEGATIVE) H Urine Ketones 2+ (NEGATIVE) H Urine Occult Blood 4+ (NEGATIVE) H Urine Nitrite Negative (NEGATIVE) Urine Bilirubin Negative (NEGATIVE) Urine Urobilinogen Normal MG/DL (0.0-1.0) Urine Leukocyte Esterase Negative (NEGATIVE) Urine RBC 40-60 /HPF (0 - 2) H Urine WBC 2-4 /HPF (0 - 2) Urine Squamous Epithelial Cells Few /LPF (NONE/OCC) Urine Bacteria Few /HPF (NONE) Sodium Level 140 MMOL/L (136-145) Potassium Level 3.8 MMOL/L (3.5-5.1) Chloride Level 107 MMOL/L (98-107) Carbon Dioxide Level 24 MMOL/L (21-32) Anion Gap 10 mmol/L (5-15) Blood Urea Nitrogen 37 mg/dL (7-18) H Creatinine 1.6 MG/DL (0.55-1.30) H Estimat Glomerular Filtration Rate 38.9 mL/min (>60) Glucose Level 171 MG/DL (74-106) H Uric Acid 7.3 MG/DL (2.6-7.2) H Calcium Level 8.8 MG/DL (8.5-10.1) Phosphorus Level 2.0 MG/DL (2.5-4.9) L Magnesium Level 2.0 MG/DL (1.8-2.4) Total Bilirubin 0.3 MG/DL (0.2-1.0) Aspartate Amino Transf (AST/SGOT) 39 U/L (15-37) H Alanine Aminotransferase (ALT/SGPT) 27 U/L (12-78) Alkaline Phosphatase 70 U/L (46-116) Total Creatine Kinase 404 U/L (26-308) H Troponin I 1.650 ng/mL (0.000-0.056) 1.139 ng/mL (0.000-0.056) C-Reactive Protein, Quantitative 3.1 mg/dL (0.00-0.90) H Total Protein 5.6 G/DL (6.4-8.2) L Albumin 2.7 G/DL (3.4-5.0) L Globulin 2.9 g/dL Albumin/Globulin Ratio 0.9 (1.0-2.7) L Triglycerides Level 77 MG/DL (30-150) Cholesterol Level 130 MG/DL (< 200) LDL Cholesterol 46 mg/dL (<100) HDL Cholesterol 90 MG/DL (40-60) H Cholesterol/HDL Ratio 1.4 (3.3-4.4) L Activated Partial Thromboplast Time 25 SEC (23-33) Current Medications Medications (Trade) Dose Ordered Sig/Enrike Route PRN Reason Start Time Stop Time Status Last Admin Dose Admin Aspirin (ASA) 81 mg DAILY ORAL 12/06/17 09:00 01/05/18 08:59 12/06/17 09:53 Atorvastatin Calcium (Lipitor) 80 mg BEDTIME ORAL 12/06/17 21:00 01/05/18 20:59 Dextrose (Dextrose 50%) 25 ml STAT PRN IV Hypoglycemia 12/06/17 07:00 01/05/18 06:59 Dextrose (Dextrose 50%) 50 ml STAT PRN IV Hypoglycemia 12/06/17 07:00 01/05/18 06:59 Dextrose/ Electrolytes 1,000 ml @ 100 mls/hr Q10H IV 12/05/17 18:00 01/04/18 17:59 12/06/17 09:53 Docusate Sodium (Colace) 100 mg TWICE A DAY ORAL 12/06/17 09:00 01/05/18 08:59 Haloperidol Lactate (Haldol) 5 mg Q6H PRN IM Agitation 12/05/17 16:15 01/04/18 16:14 Heparin Sodium/ Dextrose 500 ml @ 18.619 mls/ hr adjust per protocol IV 12/06/17 09:30 01/05/18 09:29 12/06/17 13:03 Insulin Aspart (NovoLOG) EVERY 4 HOURS SUBQ 12/06/17 09:00 01/05/18 08:59 12/06/17 13:25 Insulin Detemir (Levemir) 12 units Q12HR SUBQ 12/06/17 09:00 01/05/18 08:59 12/06/17 09:59 Levofloxacin 100 ml @ 100 mls/hr Q48H IVPB 12/05/17 12:00 12/12/17 11:59 12/05/17 12:24 Metoprolol Tartrate (Lopressor) 25 mg Q12HR ORAL 12/06/17 09:00 01/05/18 20:59 Nitroglycerin (Ntg) 1 patch Q24H TDERMAL 12/06/17 09:00 01/05/18 08:59 12/06/17 09:54 Pantoprazole (Protonix) 40 mg BID ORAL 12/06/17 09:18 01/05/18 09:17 12/06/17 10:03 Potassium Phosphate 30 mm/ Sodium Chloride 285 ml @ 47.5 mls/hr ONCE IV 12/06/17 10:00 12/06/17 23:59 12/06/17 12:10 Quetiapine Fumarate (SEROquel) 25 mg Q6H PRN ORAL For Anxiety 12/05/17 16:15 01/04/18 16:14 Quetiapine Fumarate (SEROquel) 50 mg BEDTIME ORAL 12/05/17 21:00 01/04/18 20:59 12/05/17 21:19 Mike Dickinson MD Dec 06, 2017 13:45
--- NOTE | 2017-12-06 18:07 | General Progress Note ---
Assessment/Plan Problem List: (1) DKA (diabetic ketoacidoses) ICD Codes: E13.10 - Other specified diabetes mellitus with ketoacidosis without coma SNOMED: 703178964, 47287024 Qualifiers: Qualified Codes: E13.10 - Other specified diabetes mellitus with ketoacidosis without coma (2) Acute on chronic renal failure ICD Codes: N17.9 - Acute kidney failure, unspecified; N18.9 - Chronic kidney disease, unspecified SNOMED: 157653711 (3) Hyperkalemia ICD Codes: E87.5 - Hyperkalemia SNOMED: 90662216 Status: progressing Assessment/Plan dka resolved afebrile sugars are improving lyte abnormality improving clinically improving no pain gap is treated Subjective ROS Limited/Unobtainable: Yes Allergies: Coded Allergies: PENICILLINS (Verified Allergy, Unknown, 12/05/17) Objective Last 24 Hour Vital Signs Date Time Temp Pulse Resp B/P (MAP) Pulse Ox O2 Delivery O2 Flow Rate FiO2 12/06/17 17:00 91 14 122/66 (84) 99 12/06/17 16:02 95 12/06/17 16:00 97 21 119/65 (83) 100 12/06/17 16:00 Room Air 12/06/17 15:00 96 22 128/68 (88) 99 12/06/17 14:00 96 22 120/60 (80) 99 12/06/17 13:00 100 19 119/58 (78) 99 12/06/17 12:00 98 20 116/50 (72) 100 12/06/17 12:00 Room Air 12/06/17 12:00 93 12/06/17 11:00 98.7 96 19 122/68 (86) 98 98.7 12/06/17 10:00 97 21 109/43 (65) 98 12/06/17 09:54 104/39 12/06/17 09:00 97 19 104/39 (60) 100 12/06/17 08:00 98.6 96 22 103/46 (65) 99 98.6 12/06/17 08:00 92 12/06/17 08:00 Room Air 12/06/17 07:00 94 20 120/55 (76) 99 12/06/17 06:00 90 20 110/60 (77) 99 12/06/17 05:00 92 20 105/60 (75) 99 12/06/17 04:00 Room Air 12/06/17 04:00 96 12/06/17 04:00 98.2 93 20 100/46 (64) 99 98.2 12/06/17 03:00 94 20 108/40 (62) 99 12/06/17 02:00 99 21 110/80 (90) 99 12/06/17 01:00 97 21 117/80 (92) 99 12/06/17 00:00 98.6 101 20 98/51 (67) 100 98.6 12/06/17 00:00 100 12/06/17 00:00 Room Air 12/05/17 23:00 103 21 98/51 (67) 100 12/05/17 22:00 96 22 95/48 (64) 100 12/05/17 21:00 98 18 121/56 (77) 100 12/05/17 20:00 97 12/05/17 20:00 Room Air 12/05/17 20:00 98.7 97 18 121/57 (78) 100 98.7 12/05/17 19:00 90 20 116/52 (73) 100 Intake and Output 12/05/17 12/06/17 19:00 07:00 Intake Total 3700 ml 1020.2 ml Output Total 640 ml 550 ml Balance 3060 ml 470.2 ml IV Total 3700 ml 1020.2 ml Output Urine Total 640 ml 550 ml # Voids 13 # Bowel Movements 14 4 Laboratory Tests 12/05/17 21:25: Arterial Blood pH 7.407, Arterial Blood Partial Pressure CO2 29.9L, Arterial Blood Partial Pressure O2 86.5, Arterial Blood HCO3 18.4L, Arterial Blood Oxygen Saturation 96.3, Arterial Blood Base Excess -5.2, Isiah Test Positive 12/06/17 00:22: Sodium Level 140, Potassium Level 4.1, Chloride Level 106, Carbon Dioxide Level 22, Anion Gap 12, Blood Urea Nitrogen 41H, Creatinine 1.6H, Estimat Glomerular Filtration Rate 38.9, Glucose Level 201H, Calcium Level 8.6 12/06/17 05:00: Urine Color Yellow, Urine Appearance Clear, Urine pH 5, Urine Specific [place] 1.020, Urine Protein 2+H, Urine Glucose (UA) 3+H, Urine Ketones 2+H, Urine Occult Blood 4+H, Urine Nitrite Negative, Urine Bilirubin Negative, Urine Urobilinogen Normal, Urine Leukocyte Esterase Negative, Urine RBC 40-60H, Urine WBC 2-4, Urine Squamous Epithelial Cells Few, Urine Bacteria Few 12/06/17 05:56: Sodium Level 140, Potassium Level 3.8, Chloride Level 107, Carbon Dioxide Level 24, Anion Gap 10, Blood Urea Nitrogen 37H, Creatinine 1.6H, Estimat Glomerular Filtration Rate 38.9, Glucose Level 171H, Calcium Level 8.8, Uric Acid 7.3H, Phosphorus Level 2.0L, Magnesium Level 2.0, Total Bilirubin 0.3, Aspartate Amino Transf (AST/SGOT) 39H, Alanine Aminotransferase (ALT/SGPT) 27, Alkaline Phosphatase 70, Total Creatine Kinase 404H, Troponin I 1.650H, C-Reactive Protein, Quantitative 3.1H, Total Protein 5.6L, Albumin 2.7L, Globulin 2.9, Albumin/Globulin Ratio 0.9L, Triglycerides Level 77, Cholesterol Level 130, LDL Cholesterol 46, HDL Cholesterol 90H, Cholesterol/HDL Ratio 1.4L 12/06/17 08:55: Activated Partial Thromboplast Time 25 12/06/17 11:50: Troponin I 1.139H Height (Feet): 5 Height (Inches): 6.00 Weight (Pounds): 171 Neck: supple Cardiovascular: normal rate Respiratory/Chest: lungs clear Abdomen: soft Delaney Fontana MD Dec 06, 2017 18:07
--- NOTE | 2017-12-06 18:42 | Consultation ---
Consult Note Consult Note Please see dictation Chayo Samano MD Dec 06, 2017 18:42
[2017-12-06] MEDS ORDERED: Heparin 5000 units/ml inj IV SCH (20:30)
[2017-12-06] MEDS ORDERED: Atorvastatin 80mg tab ORAL SCH ×2 (21:00)
--- NOTE | 2017-12-06 21:44 | Cardiology Progress Note ---
Assessment/Plan Status Narrative 1. NSTEMI , transfer to [facility] for heart cath, no ischemic changes on the ECG, CP free, no wall motion abnormalities on the Echo. Trop leak could be due to renal failure or other etiologies, Agree with heparin gtt, ASA 81, atorvastatin 80 and B-blockers for double product control. 2. DKA 3. Anion gap acidosis Assessment/Plan The patient is seen and examined, full consult note will be dictated shortly. Subjective Subjective Sinus rhythm at 80. Objective Last 24 Hour Vital Signs Date Time Temp Pulse Resp B/P (MAP) Pulse Ox O2 Delivery O2 Flow Rate FiO2 12/06/17 20:36 94 111/57 12/06/17 19:00 94 21 120/61 (80) 100 12/06/17 18:00 94 14 131/72 (91) 100 12/06/17 17:00 91 14 122/66 (84) 99 12/06/17 16:02 95 12/06/17 16:00 99.0 97 21 119/65 (83) 100 99.0 12/06/17 16:00 Room Air 12/06/17 15:00 96 22 128/68 (88) 99 12/06/17 14:00 96 22 120/60 (80) 99 12/06/17 13:00 100 19 119/58 (78) 99 12/06/17 12:00 98 20 116/50 (72) 100 12/06/17 12:00 Room Air 12/06/17 12:00 93 12/06/17 11:00 98.7 96 19 122/68 (86) 98 98.7 12/06/17 10:00 97 21 109/43 (65) 98 12/06/17 09:54 104/39 12/06/17 09:00 97 19 104/39 (60) 100 12/06/17 08:00 98.6 96 22 103/46 (65) 99 98.6 12/06/17 08:00 92 12/06/17 08:00 Room Air 12/06/17 07:00 94 20 120/55 (76) 99 12/06/17 06:00 90 20 110/60 (77) 99 12/06/17 05:00 92 20 105/60 (75) 99 12/06/17 04:00 Room Air 12/06/17 04:00 96 12/06/17 04:00 98.2 93 20 100/46 (64) 99 98.2 12/06/17 03:00 94 20 108/40 (62) 99 12/06/17 02:00 99 21 110/80 (90) 99 12/06/17 01:00 97 21 117/80 (92) 99 12/06/17 00:00 98.6 101 20 98/51 (67) 100 98.6 12/06/17 00:00 100 12/06/17 00:00 Room Air 12/05/17 23:00 103 21 98/51 (67) 100 12/05/17 22:00 96 22 95/48 (64) 100 Intake and Output 12/05/17 12/06/17 19:00 07:00 Intake Total 3700 ml 1020.2 ml Output Total 640 ml 550 ml Balance 3060 ml 470.2 ml IV Total 3700 ml 1020.2 ml Output Urine Total 640 ml 550 ml # Voids 13 # Bowel Movements 14 4 2D Echo: EF 55%, CASEY 1.1 cm2, RVSP 42 mmhg, Mod MR Laboratory Tests Test 12/06/17 00:22 12/06/17 05:00 12/06/17 05:56 12/06/17 08:55 Sodium Level 140 MMOL/L (136-145) 140 MMOL/L (136-145) Potassium Level 4.1 MMOL/L (3.5-5.1) 3.8 MMOL/L (3.5-5.1) Chloride Level 106 MMOL/L (98-107) 107 MMOL/L (98-107) Carbon Dioxide Level 22 MMOL/L (21-32) 24 MMOL/L (21-32) Anion Gap 12 mmol/L (5-15) 10 mmol/L (5-15) Blood Urea Nitrogen 41 mg/dL (7-18) H 37 mg/dL (7-18) H Creatinine 1.6 MG/DL (0.55-1.30) H 1.6 MG/DL (0.55-1.30) H Estimat Glomerular Filtration Rate 38.9 mL/min (>60) 38.9 mL/min (>60) Glucose Level 201 MG/DL (74-106) H 171 MG/DL (74-106) H Calcium Level 8.6 MG/DL (8.5-10.1) 8.8 MG/DL (8.5-10.1) Urine Color Yellow Urine Appearance Clear Urine pH 5 (4.5-8.0) Urine Specific [place] 1.020 (1.005-1.035) Urine Protein 2+ (NEGATIVE) H Urine Glucose (UA) 3+ (NEGATIVE) H Urine Ketones 2+ (NEGATIVE) H Urine Occult Blood 4+ (NEGATIVE) H Urine Nitrite Negative (NEGATIVE) Urine Bilirubin Negative (NEGATIVE) Urine Urobilinogen Normal MG/DL (0.0-1.0) Urine Leukocyte Esterase Negative (NEGATIVE) Urine RBC 40-60 /HPF (0 - 2) H Urine WBC 2-4 /HPF (0 - 2) Urine Squamous Epithelial Cells Few /LPF (NONE/OCC) Urine Bacteria Few /HPF (NONE) Uric Acid 7.3 MG/DL (2.6-7.2) H Phosphorus Level 2.0 MG/DL (2.5-4.9) L Magnesium Level 2.0 MG/DL (1.8-2.4) Total Bilirubin 0.3 MG/DL (0.2-1.0) Aspartate Amino Transf (AST/SGOT) 39 U/L (15-37) H Alanine Aminotransferase (ALT/SGPT) 27 U/L (12-78) Alkaline Phosphatase 70 U/L (46-116) Total Creatine Kinase 404 U/L (26-308) H Troponin I 1.650 ng/mL (0.000-0.056) C-Reactive Protein, Quantitative 3.1 mg/dL (0.00-0.90) H Total Protein 5.6 G/DL (6.4-8.2) L Albumin 2.7 G/DL (3.4-5.0) L Globulin 2.9 g/dL Albumin/Globulin Ratio 0.9 (1.0-2.7) L Triglycerides Level 77 MG/DL (30-150) Cholesterol Level 130 MG/DL (< 200) LDL Cholesterol 46 mg/dL (<100) HDL Cholesterol 90 MG/DL (40-60) H Cholesterol/HDL Ratio 1.4 (3.3-4.4) L Activated Partial Thromboplast Time 25 SEC (23-33) Test 12/06/17 11:50 12/06/17 18:35 Troponin I 1.139 ng/mL (0.000-0.056) 0.729 ng/mL (0.000-0.056) Activated Partial Thromboplast Time 54 SEC (23-33) H Objective HEENT: normocephalic, atraumatic bilateral eye normal inspection, bilateral eye PERRL Neck: No JVD, no carotid bruit Respiratory: chest non-tender, lungs clear, normal breath sounds, speaking full sentences Cardiovascular: regular rate, rhythm, normal S1S2, no murmurs, gallops or rubs. Gastrointestinal: normal bowel sounds, non tender, soft, non-distended, no guarding, no rebound Genitourinary: normal inspection, no CVA tenderness Musculoskeletal: no edema, clubbing or cyanosis. Bimal Mata MD Dec 06, 2017 21:44
[2017-12-07] VITALS (20 sets, daily range): BP systolic 97–147; BP diastolic 58–86
[2017-12-07] MEDS: D5 1/2NS w/KCl 20mEq 1,000 ML IV SCH
--- NOTE | 2017-12-07 00:15 | Consultation ---
DATE OF CONSULTATION: 12/06/2017 CONSULTING PHYSICIAN: Chayo Samano M.D. HISTORY: The patient is a 67-year-old insulin dependent diabetic female, currently inpatient with diabetic ketoacidosis. She has been visually asymptomatic. She wears reading glasses, however, she does not have the reading glasses with her. There are no flashes or floaters, and no ocular discomfort. PAST OCULAR HISTORY: Unremarkable. She has her regular annual eye exams by manager appointment at [facility]. Per the patient, her last visit was three months ago and she was told the eyes are doing well and her next appointment is 9 in months. PHYSICAL EXAMINATION: EYES: On examination, visual acuity was 20/50 right eye and 20/60 left eye with near card without correction as she did not have her reading glasses or distance glasses with her. External examination was unremarkable. Ocular movements were full. Pupillary reflexes were within normal. Conjunctivae were white and clear. Cornea was clear. Nuclear sclerosis was present in both eyes. Extraocular pressures within normal in both eyes. Dilated fundus exam was deferred. IMPRESSION: 1. Refractive error. 2. Insulin-dependent diabetes. 3. Her recent eye exam was clear at [facility]. RECOMMENDATION/PLAN: It was recommended to her that she should follow up with own manager appointment at [facility] upon discharge from the hospital. Chayo Samano M.D. DR: JORDYN JOB#: [id number] CC:
[2017-12-07] MEDS: NovoLOG Insulin Flexpen SUBQ SCH ×6 (00:49→21:07)
--- NOTE | 2017-12-07 02:15 | Consultation ---
DATE OF CONSULTATION: 12/05/2017 CARDIOLOGY CONSULTATION CONSULTING PHYSICIAN: Bimal Mata M.D. REFERRING PHYSICIAN: Delaney Fontana M.D. REASON FOR CONSULTATION: Management of tachycardia. HISTORY OF PRESENT ILLNESS: The patient is a very unfortunate 67-year-old female, who presents to the emergency department by EMS for altered level of consciousness, which was for about a day, which was due to elevated Accu-Chek. The patient has history of diabetes mellitus and noncompliance with her medication for several days. The patient is a very poor historian and is not providing a detailed history. On arrival to the emergency department, she denies any chest pain or shortness of breath. Initial blood pressure was 108/39 mmHg and heart rate of 112. A 12-lead electrocardiogram in the emergency department showed sinus tachycardia, rate of [address] and T-wave abnormalities. The patient was admitted to intensive care unit with diabetes ketoacidosis as her blood sugar was 844. Her BUN and creatinine was 45 and 2.9 respectively and her bicarbonate was 6. Cardiology consultation was made at request of Dr. Fontana for management of tachycardia. PAST MEDICAL HISTORY: Diabetes mellitus. Also history of hypertension. PAST SURGICAL HISTORY: None. ALLERGIES: Penicillin. MEDICATIONS: List of medication includes, 1. Aspirin 81 mg p.o. daily. 2. Amlodipine 5 mg p.o. daily. 3. Atorvastatin 80 mg p.o. at bedtime. 4. Benazepril 40 mg p.o. daily. 5. Insulin glargine 20 subcutaneous daily. 6. Insulin Humalog 8 units subcutaneous every morning. 7. Humalog insulin subcutaneous at dinnertime. 8. Metformin 500 mg twice daily. FAMILY HISTORY: No premature coronary artery disease in the first-degree relative. SOCIAL HISTORY: Denies any tobacco, alcohol, or illicit drug use. REVIEW OF SYSTEMS: A 12-system review done essentially negative except what mentioned in the history of present illness. PHYSICAL EXAMINATION: GENERAL: The patient is a very unfortunate 67-year-old female, in no apparent respiratory distress, not verbally communicating at this time, but she is awake. VITAL SIGNS: Blood pressure at time of arrival to the hospital was 108/39, respirations 16, pulse of 112 temperature 97.5 degrees Fahrenheit, and O2 saturation 100% on room air. HEENT: Atraumatic and normocephalic. ENT, pupils are equal, round, and reactive to light and accommodation. Extraocular muscles intact. NECK: JVP less than 5 cm. No carotid bruits. Carotid upstrokes 2+ bilaterally. CARDIOVASCULAR: Normal S1 and S2. Regular rate and rhythm. Tachycardic. No murmurs, gallops, or rubs. PMI is at fourth intercostal space in the midclavicular line. LUNGS: Clear to auscultation bilaterally. ABDOMEN: Soft, nontender, and nondistended. No hepatosplenomegaly. Positive bowel sounds. EXTREMITIES: No evidence of edema, clubbing, or cyanosis. LABORATORY AND DIAGNOSTIC DATA: Sodium was 132, potassium 6.0, chloride 91, bicarbonate 6, BUN of 45, creatinine 2.9, and glucose is 844. Calcium is 9.0. Magnesium is 2.3. INR is 1.0. WBC 18.5, hemoglobin 11.3, hematocrit 36.4, and platelet count is 167. INR is 1.0. A 12-lead electrocardiogram, sinus tachycardia, rate of [address] and T-wave abnormalities. Chest x-ray shows no acute cardiopulmonary disease. ASSESSMENT AND PLAN: This patient is a very unfortunate 67-year-old female, seen in Cardiology consultation at request of Dr. Fontana. 1. Sinus tachycardia, most likely due to hypovolemia due to osmosis diuresis, as the patient has hyperglycemia. The treatment of choice is hydration, replacement of magnesium and phosphorus as well as insulin drip. 2. History of hypertension. We will continue with current blood pressure medication. 3. Diabetes ketoacidosis due to medication noncompliance. Endocrinology consultation will be requested. A 2D echocardiography for assessment of LV systolic and diastolic function. Further therapeutic and diagnostic decision will be based on the results of 2D echocardiography. I would like to thank Dr. Fontana for allowing me to participate in care of this patient. Bimal Mata M.D. DR: LORENA JOB#: [id number] CC:
[2017-12-07 04:33] LABS: ANION GAP 5 mmol/L (5-15); BLOOD UREA NITROGEN 21 mg/dL (7-18); CALCIUM 8.3 MG/DL (8.5-10.1); CARBON DIOXIDE 25 MMOL/L (21-32); CHLORIDE 108 MMOL/L (98-107); POTASSIUM 3.9 MMOL/L (3.5-5.1); SODIUM 138 MMOL/L (136-145)
[2017-12-07] MEDS: Heparin 25,000u/D5W 500ml 500 ML IV SCH ×2 (05:16→16:10)
[2017-12-07 07:29] LABS: BASOPHILS % (AUTO) 1.2 % (0.0-2.0); HEMATOCRIT 31.5 % (37.0-47.0); HEMOGLOBIN 10.7 G/DL (12.0-16.0); LYMPHOCYTES % (AUTO) 36.4 % (20.0-45.0); MEAN CORPUSCULAR VOLUME 90 FL (80-99); MONOCYTES % (AUTO) 6.4 % (1.0-10.0); PLATELET COUNT 140 K/UL (150-450); RED BLOOD COUNT 3.51 M/UL (4.20-5.40); RED CELL DISTRIBUTION WIDTH 12.4 % (11.6-14.8); WHITE BLOOD COUNT 9.4 K/UL (4.8-10.8)
--- NOTE | 2017-12-07 08:13 | Cardiology Report ---
APPROVED REPORT EXAM: Two-dimensional and M-mode echocardiogram with Doppler and color Doppler. INDICATION Congestive Heart Failure M-Mode DIMENSIONS IVSd0.8 (0.7-1.1cm)Left Atrium (MM)2.4 (1.6-4.0cm) LVDd4.3 (3.5-5.6cm)Aortic Root2.4 (2.0-3.7cm) PWd0.7 (0.7-1.1cm)Aortic Cusp Exc.1.0 (1.5-2.0cm) LVDs2.1 (2.5-4.0cm) PWs1.8 cm Normal left ventricular chamber size, systolic function and wall motion. Left ventricular ejection fraction estimated to be 65-70 %. No evidence of left ventricular hypertrophy. No evidence of pericardial effusion. All other cardiac chamber sizes are within normal limits. Aortic valve calcification with decreased cusp excursion c/w aortic stenosis. Mildly thickened mitral valve leaflets with normal excursion. Moderate mitral annulus and aortic root calcification. Normal pulmonic valve structure. Normal tricuspid valve structure. IVC is normal in size with physiological collapse. A color flow and spectral Doppler study was performed and revealed: Trace aortic insufficiency. Peak aortic valve gradient of 58 mmHg and a mean of 26 mmHg. Aortic valve area 1.1 cm2 calculated by continuity equation. Moderate mitral regurgitation. reduced left ventricular relaxation c/w impaired relaxation diastolic dysfunction. Mild tricuspid regurgitation. Tricuspid systolic velocities suggests peak right ventricular systolic pressure of 42 mmHg, consistent with mild pulmonary hypertension. No pulmonic regurgitation present.
[2017-12-07] MEDS: Metoprolol Tartrate 12.5mg TAB ORAL SCH (08:20)
[2017-12-07] MEDS: Aspirin Baby 81mg ORAL SCH (08:20)
[2017-12-07] MEDS: Nitroglycerin Patch 0.4mg TDERMAL SCH (08:21)
[2017-12-07] MEDS: Docusate 100mg cap ORAL SCH ×3 (08:23→18:51)
[2017-12-07] MEDS: Levemir Flexpen SUBQ SCH ×2 (08:26→21:07)
--- NOTE | 2017-12-07 08:33 | Pulmonolgy Critical Care Note ---
Critical Care - Asmt/Plan Problems: (1) DKA (diabetic ketoacidoses) Assessment & Plan: RESOLVED (2) Leukocytosis Assessment & Plan: IMPROVED (3) Hyperkalemia Assessment & Plan: RESOLVED (4) High anion gap metabolic acidosis Assessment & Plan: RESOLVED (5) NSTEMI (non-ST elevated myocardial infarction) Assessment & Plan: ACS vs demand ischemia Trops downtrending TTE without any WMA or sig abnl (6) Diabetes mellitus out of control Respiratory: monitor respiratory rate Cardiac: other - IVUH per cards, consider switching back to HEP SQ as trops downtrending and TTE without abnl, continue ASA, statin. Defer to cards Re: ischemia eval, plan was transfter to cath facility but given clinical improvement I wonder if she can have a non-invasive ischemia eval here or elective cath in the future. Renal: decrease IV fluid, check electrolytes Infectious Disease: other - Observe off Abx per ID Gastrointestinal: continue feedings/current rate - ADA diet Endocrine: monitor blood sugar, other - Glycemic control per ENDO Prophylaxis: Protonix, Heparin Disposition: transfer to - tele Time Spent (Minutes): 50 Notes Reviewed: compensation coordinator, cardio, renal, ID, other - ENDO, OPHTHO Discussed with: nurses, consultants Critical Care - Objective Last 24 Hour Vital Signs Date Time Temp Pulse Resp B/P (MAP) Pulse Ox O2 Delivery O2 Flow Rate FiO2 12/07/17 08:21 118/66 12/07/17 08:20 92 118/66 12/07/17 07:00 88 18 118/66 (83) 98 12/07/17 06:00 78 18 99/58 (72) 98 12/07/17 05:00 85 17 107/64 (78) 98 12/07/17 04:00 98.4 86 17 133/67 (89) 99 98.4 12/07/17 04:00 Room Air 12/07/17 04:00 83 12/07/17 03:00 82 17 114/65 (81) 98 12/07/17 02:00 85 20 97/60 (72) 98 12/07/17 01:00 89 20 102/59 (73) 98 12/07/17 00:00 98.7 89 22 102/58 (73) 98 98.7 12/07/17 00:00 Room Air 12/07/17 00:00 93 12/06/17 23:00 86 21 97/56 (70) 99 12/06/17 22:00 84 20 92/52 (65) 99 12/06/17 21:00 90 18 120/59 (79) 99 12/06/17 20:36 94 111/57 12/06/17 20:00 Room Air 12/06/17 20:00 92 12/06/17 20:00 98.0 92 19 111/57 (75) 99 98.0 12/06/17 19:00 94 21 120/61 (80) 100 12/06/17 18:00 94 14 131/72 (91) 100 12/06/17 17:00 91 14 122/66 (84) 99 12/06/17 16:02 95 12/06/17 16:00 99.0 97 21 119/65 (83) 100 99.0 12/06/17 16:00 Room Air 12/06/17 15:00 96 22 128/68 (88) 99 12/06/17 14:00 96 22 120/60 (80) 99 12/06/17 13:00 100 19 119/58 (78) 99 12/06/17 12:00 98 20 116/50 (72) 100 12/06/17 12:00 Room Air 12/06/17 12:00 93 12/06/17 11:00 98.7 96 19 122/68 (86) 98 98.7 12/06/17 10:00 97 21 109/43 (65) 98 12/06/17 09:54 104/39 12/06/17 09:00 97 19 104/39 (60) 100 Status: awake Condition: improving HEENT: atraumatic, normocephalic Neck: full ROM Lungs: clear Heart: HR/BP stable Abdomen: soft, non-tender, active bowel sounds Extremities: no C/C/E Micro: Microbiology Date/Time Source Procedure Growth Status 12/05/17 10:55 Blood Blood Culture - Preliminary NO GROWTH AFTER 24 HOURS Resulted 12/05/17 10:45 Blood Blood Culture - Preliminary NO GROWTH AFTER 24 HOURS Resulted 12/06/17 05:00 Straight Cath Urine Culture - Preliminary NO GROWTH Resulted 12/05/17 07:25 Rectum - Final NO CARBAPENEM-RESISTANT ENTEROBACTERI... Complete 12/05/17 07:25 Rectum VRE Culture - Final NO VANCOMYCIN RESISTANT ENTEROCOCCUS ... Complete Accucheck: 159 Blood Sugars: BS controlled Critical Care - Subjective ROS Limited/Unobtainable: Yes ICU Day: 3 Interval Events: AFVSS, stable on RA, gap closed, off insulin gtt Elvia IVUH gtt, trops downtrending, TTE without any WMA or sig abnl Off Abx, Cx's NG, leukocytosis normalized No F/C/CP/SOB/TORRES/dizziness/N/V/D/C Condition: improving IV Access: peripheral EKG Rhythm: Sinus Rhythm Fluids: D51/3CBp22H@100 Drips: IVUH I&O: Intake and Output 12/06/17 12/07/17 19:00 07:00 Intake Total 1442.214 ml 1401.712 ml Output Total 385 ml 610 ml Balance 1057.214 ml 791.712 ml Intake Oral 80 ml 100 ml IV Total 1362.214 ml 1301.712 ml Output Urine Total 385 ml 610 ml # Bowel Movements 2 Subjective: No F/C/TORRES/Dizziness/CP/SOB/N/V/D/C/abdominal pain/urinary complaints No changes in vision/hearing/balance Active Scripts Medications Dose Route/Sig Max Daily Dose Days Date Category Lantus (Insulin Glargine) 100 Unit/1 Ml Insuln.pen 20 SUBQ DAILY 12/05/17 Reported Benazepril Hcl* (Benazepril HCl) 40 Mg Tablet 40 Mg ORAL DAILY 12/05/17 Reported Lipitor* (Atorvastatin Calcium) 80 Mg Tablet 80 Mg ORAL BEDTIME 12/05/17 Reported Aspirin* (Aspirin) 81 Mg Tab.chew 81 Mg ORAL DAILY 12/05/17 Reported Amlodipine Besylate* (Amlodipine Besylate) 5 Mg Tablet 5 Mg ORAL DAILY 12/05/17 Reported Humalog (Insulin Lispro) 100 Unit/1 Ml Cartridge 4 SUBQ DINNER 12/05/17 Reported Humalog (Insulin Lispro) 100 Unit/1 Ml Cartridge 8 SUBQ BREAKFAST,LUNCH 12/05/17 Reported Metformin Hcl* (Metformin HCl) 500 Mg Tablet 500 Mg ORAL TWICE A DAY 12/05/17 Reported Labs: Laboratory Tests Test 12/06/17 08:55 12/06/17 11:50 12/06/17 18:35 12/07/17 02:45 Activated Partial Thromboplast Time 25 SEC (23-33) 54 SEC (23-33) H > 150 SEC (23-33) *H Troponin I 1.139 ng/mL (0.000-0.056) 0.729 ng/mL (0.000-0.056) Test 12/07/17 04:00 12/07/17 07:10 Sodium Level 138 MMOL/L (136-145) Potassium Level 3.9 MMOL/L (3.5-5.1) Chloride Level 108 MMOL/L (98-107) H Carbon Dioxide Level 25 MMOL/L (21-32) Anion Gap 5 mmol/L (5-15) Blood Urea Nitrogen 21 mg/dL (7-18) H Creatinine 1.0 MG/DL (0.55-1.30) Estimat Glomerular Filtration Rate > 60 mL/min (>60) Glucose Level 177 MG/DL (74-106) H Calcium Level 8.3 MG/DL (8.5-10.1) L White Blood Count 9.4 K/UL (4.8-10.8) Red Blood Count 3.51 M/UL (4.20-5.40) L Hemoglobin 10.7 G/DL (12.0-16.0) L Hematocrit 31.5 % (37.0-47.0) L Mean Corpuscular Volume 90 FL (80-99) Mean Corpuscular Hemoglobin 30.5 PG (27.0-31.0) Mean Corpuscular Hemoglobin Concent 34.0 G/DL (32.0-36.0) Red Cell Distribution Width 12.4 % (11.6-14.8) Platelet Count 140 K/UL (150-450) L Mean Platelet Volume 8.4 FL (6.5-10.1) Neutrophils (%) (Auto) 55.0 % (45.0-75.0) Lymphocytes (%) (Auto) 36.4 % (20.0-45.0) Monocytes (%) (Auto) 6.4 % (1.0-10.0) Eosinophils (%) (Auto) 1.0 % (0.0-3.0) Basophils (%) (Auto) 1.2 % (0.0-2.0) James Ellis MD Dec 07, 2017 08:33
[2017-12-07 09:46] LABS: ALANINE AMINOTRANSFERASE 25 U/L (12-78); ALBUMIN 2.4 G/DL (3.4-5.0); ALKALINE PHOSPHATASE 64 U/L (46-116); ASPARTATE AMINO TRANSFERASE 30 U/L (15-37); BILIRUBIN,DIRECT 0.2 MG/DL (0.0-0.3); BILIRUBIN,TOTAL 0.4 MG/DL (0.2-1.0); PHOSPHORUS 2.9 MG/DL (2.5-4.9)
--- NOTE | 2017-12-07 10:28 | Nephrology Progress Note ---
Assessment/Plan Problem List: (1) Acute on chronic renal failure Assessment: Cr normalized (2) Hyperkalemia Assessment: resolved (3) DKA (diabetic ketoacidoses) Assessment: resolved (4) Diabetes mellitus out of control (5) NSTEMI (non-ST elevated myocardial infarction) Assessment (1) DKA (diabetic ketoacidoses) (2) Leukocytosis ? undelrlying sepsis (3) Hyperkalemia, and acute renal failure, likely dehydration (4) High anion gap metabolic acidosis Plan asa, heparin, lopressor, nitrate K Phos IV stop IV Fluid- Watch K and Phos , supplement as needed Insulin treatment Monitor lytes and renal parameters- 2D echo pending avoid nephrotoxics- Subjective ROS Limited/Unobtainable: No Constitutional: Reports: malaise Objective Objective Last 24 Hour Vital Signs Date Time Temp Pulse Resp B/P (MAP) Pulse Ox O2 Delivery O2 Flow Rate FiO2 12/07/17 10:00 76 18 111/67 (82) 99 12/07/17 09:00 74 18 118/61 (80) 98 12/07/17 08:21 118/66 12/07/17 08:20 92 118/66 12/07/17 08:00 98.1 94 17 118/66 (83) 98 98.1 12/07/17 08:00 89 12/07/17 08:00 Room Air 12/07/17 07:00 88 18 118/66 (83) 98 12/07/17 06:00 78 18 99/58 (72) 98 12/07/17 05:00 85 17 107/64 (78) 98 12/07/17 04:00 98.4 86 17 133/67 (89) 99 98.4 12/07/17 04:00 Room Air 12/07/17 04:00 83 12/07/17 03:00 82 17 114/65 (81) 98 12/07/17 02:00 85 20 97/60 (72) 98 12/07/17 01:00 89 20 102/59 (73) 98 12/07/17 00:00 98.7 89 22 102/58 (73) 98 98.7 12/07/17 00:00 Room Air 12/07/17 00:00 93 12/06/17 23:00 86 21 97/56 (70) 99 12/06/17 22:00 84 20 92/52 (65) 99 12/06/17 21:00 90 18 120/59 (79) 99 12/06/17 20:36 94 111/57 12/06/17 20:00 Room Air 12/06/17 20:00 92 12/06/17 20:00 98.0 92 19 111/57 (75) 99 98.0 12/06/17 19:00 94 21 120/61 (80) 100 12/06/17 18:00 94 14 131/72 (91) 100 12/06/17 17:00 91 14 122/66 (84) 99 12/06/17 16:02 95 12/06/17 16:00 99.0 97 21 119/65 (83) 100 99.0 12/06/17 16:00 Room Air 12/06/17 15:00 96 22 128/68 (88) 99 12/06/17 14:00 96 22 120/60 (80) 99 12/06/17 13:00 100 19 119/58 (78) 99 12/06/17 12:00 98 20 116/50 (72) 100 12/06/17 12:00 Room Air 12/06/17 12:00 93 12/06/17 11:00 98.7 96 19 122/68 (86) 98 98.7 Intake and Output 12/06/17 12/07/17 19:00 07:00 Intake Total 1442.214 ml 1401.712 ml Output Total 385 ml 610 ml Balance 1057.214 ml 791.712 ml Intake Oral 80 ml 100 ml IV Total 1362.214 ml 1301.712 ml Output Urine Total 385 ml 610 ml # Bowel Movements 2 Laboratory Tests 12/06/17 11:50: Troponin I 1.139H 12/06/17 18:35: Troponin I 0.729H, Activated Partial Thromboplast Time 54H 12/07/17 02:45: Activated Partial Thromboplast Time > 150*H 12/07/17 04:00: Sodium Level 138, Potassium Level 3.9, Chloride Level 108H, Carbon Dioxide Level 25, Anion Gap 5, Blood Urea Nitrogen 21H, Creatinine 1.0, Estimat Glomerular Filtration Rate > 60, Glucose Level 177H, Calcium Level 8.3L 7/27/18 07:10: White Blood Count 9.4, Red Blood Count 3.51L, Hemoglobin 10.7L, Hematocrit 31.5L , Mean Corpuscular Volume 90, Mean Corpuscular Hemoglobin 30.5, Mean Corpuscular Hemoglobin Concent 34.0, Red Cell Distribution Width 12.4, Platelet Count 140L, Mean Platelet Volume 8.4, Neutrophils (%) (Auto) 55.0, Lymphocytes ( %) (Auto) 36.4, Monocytes (%) (Auto) 6.4, Eosinophils (%) (Auto) 1.0, Basophils (%) (Auto) 1.2, Phosphorus Level 2.9, Magnesium Level 1.9, Total Bilirubin 0.4, Direct Bilirubin 0.2, Aspartate Amino Transf (AST/SGOT) 30, Alanine Aminotransferase (ALT/SGPT) 25, Alkaline Phosphatase 64, Troponin I 0.614H, Total Protein 5.1L, Albumin 2.4L Height (Feet): 5 Height (Inches): 6.00 Weight (Pounds): 176 General Appearance: no apparent distress Cardiovascular: normal rate Respiratory/Chest: lungs clear Abdomen: soft Objective no change Amandeep Shaw MD Dec 07, 2017 10:28
[2017-12-07] MEDS ORDERED: Tubing Blood Filter IV ONE (11:02)
--- NOTE | 2017-12-07 12:59 | General Progress Note ---
Assessment/Plan Assessment/Plan encephalopathy Agitation -seroquel 25mg q 6hr/prn/agitation -haldol prn Subjective Date patient seen: Dec 07, 2017 Neurologic/Psychiatric: Reports: anxiety Allergies: Coded Allergies: PENICILLINS (Verified Allergy, Unknown, 12/05/17) Subjective still disoriented however calm Objective Last 24 Hour Vital Signs Date Time Temp Pulse Resp B/P (MAP) Pulse Ox O2 Delivery O2 Flow Rate FiO2 12/07/17 12:00 76 12/07/17 12:00 Room Air 12/07/17 12:00 98.1 76 17 117/68 (84) 98 98.1 12/07/17 11:00 75 18 114/66 (82) 99 12/07/17 10:00 76 18 111/67 (82) 99 12/07/17 09:00 74 18 118/61 (80) 98 12/07/17 08:21 118/66 12/07/17 08:20 92 118/66 12/07/17 08:00 98.1 94 17 118/66 (83) 98 98.1 12/07/17 08:00 89 12/07/17 08:00 Room Air 12/07/17 07:00 88 18 118/66 (83) 98 12/07/17 06:00 78 18 99/58 (72) 98 12/07/17 05:00 85 17 107/64 (78) 98 12/07/17 04:00 98.4 86 17 133/67 (89) 99 98.4 12/07/17 04:00 Room Air 12/07/17 04:00 83 12/07/17 03:00 82 17 114/65 (81) 98 12/07/17 02:00 85 20 97/60 (72) 98 12/07/17 01:00 89 20 102/59 (73) 98 12/07/17 00:00 98.7 89 22 102/58 (73) 98 98.7 12/07/17 00:00 Room Air 12/07/17 00:00 93 12/06/17 23:00 86 21 97/56 (70) 99 12/06/17 22:00 84 20 92/52 (65) 99 12/06/17 21:00 90 18 120/59 (79) 99 12/06/17 20:36 94 111/57 12/06/17 20:00 Room Air 12/06/17 20:00 92 12/06/17 20:00 98.0 92 19 111/57 (75) 99 98.0 12/06/17 19:00 94 21 120/61 (80) 100 12/06/17 18:00 94 14 131/72 (91) 100 12/06/17 17:00 91 14 122/66 (84) 99 12/06/17 16:02 95 12/06/17 16:00 99.0 97 21 119/65 (83) 100 99.0 12/06/17 16:00 Room Air 12/06/17 15:00 96 22 128/68 (88) 99 12/06/17 14:00 96 22 120/60 (80) 99 12/06/17 13:00 100 19 119/58 (78) 99 Intake and Output 12/06/17 12/07/17 19:00 07:00 Intake Total 1442.214 ml 1401.712 ml Output Total 385 ml 610 ml Balance 1057.214 ml 791.712 ml Intake Oral 80 ml 100 ml IV Total 1362.214 ml 1301.712 ml Output Urine Total 385 ml 610 ml # Bowel Movements 2 Laboratory Tests 12/06/17 18:35: Activated Partial Thromboplast Time 54H, Troponin I 0.729H 12/07/17 02:45: Activated Partial Thromboplast Time > 150*H 12/07/17 04:00: Sodium Level 138, Potassium Level 3.9, Chloride Level 108H, Carbon Dioxide Level 25, Anion Gap 5, Blood Urea Nitrogen 21H, Creatinine 1.0, Estimat Glomerular Filtration Rate > 60, Glucose Level 177H, Calcium Level 8.3L 12/07/17 07:10: Troponin I 0.614H, White Blood Count 9.4, Red Blood Count 3.51L, Hemoglobin 10.7L, Hematocrit 31.5L, Mean Corpuscular Volume 90, Mean Corpuscular Hemoglobin 30.5, Mean Corpuscular Hemoglobin Concent 34.0, Red Cell Distribution Width 12.4, Platelet Count 140L, Mean Platelet Volume 8.4, Neutrophils (%) (Auto) 55.0, Lymphocytes (%) (Auto) 36.4, Monocytes (%) (Auto) 6.4, Eosinophils (%) (Auto) 1.0, Basophils (%) (Auto) 1.2, Phosphorus Level 2.9 , Magnesium Level 1.9, Total Bilirubin 0.4, Direct Bilirubin 0.2, Aspartate Amino Transf (AST/SGOT) 30, Alanine Aminotransferase (ALT/SGPT) 25, Alkaline Phosphatase 64, Total Protein 5.1L, Albumin 2.4L 12/07/17 11:00: Activated Partial Thromboplast Time 73H Height (Feet): 5 Height (Inches): 6.00 Weight (Pounds): 176 Jeanette Jerez MD Dec 07, 2017 12:59
--- NOTE | 2017-12-07 13:40 | General Progress Note ---
Assessment/Plan Status: stable Assessment/Plan 1. Leukocytosis likely secondary to underlying diabetic ketoacidosis, rule out underlying infection. --> Chest x-ray: No acute process; urinalysis ++ --> Obtain peripheral smear. --> WBC improving. 2. Anemia due to underlying chronic disease. --> Continue to closely monitor for improvement. --> Anemia w/u has been reviewed. Will trend cbc daily. --> Hgb goal >7 3. Hyperkalemia. given Kayexalate. 4. Diabetic ketoacidosis. She has been seen by Pulmonary team, Dr. Ellis. 5. High anion gap acidosis. To be seen by primary team. --> Gap is closing. On insulin sliding scale insulin. 6. Shortness of breath likely, due to underlying diabetic ketoacidosis. The time the note was entered does not necessarily correspond to the time the patient was seen. Subjective Date patient seen: Dec 07, 2017 ROS Limited/Unobtainable: Yes Hematologic/Lymphatic: Reports: anemia Allergies: Coded Allergies: PENICILLINS (Verified Allergy, Unknown, 12/05/17) All Systems: reviewed and negative except above Subjective Pt remains in ICU. Pt awake and confused. No acute events. H/H stable. Awaiting transfer to [facility]. Objective Last 24 Hour Vital Signs Date Time Temp Pulse Resp B/P (MAP) Pulse Ox O2 Delivery O2 Flow Rate FiO2 12/07/17 13:00 81 18 109/62 (78) 98 12/07/17 12:00 76 12/07/17 12:00 Room Air 12/07/17 12:00 98.1 76 17 117/68 (84) 98 98.1 12/07/17 11:00 75 18 114/66 (82) 99 12/07/17 10:00 76 18 111/67 (82) 99 12/07/17 09:00 74 18 118/61 (80) 98 12/07/17 08:21 118/66 12/07/17 08:20 92 118/66 12/07/17 08:00 98.1 94 17 118/66 (83) 98 98.1 12/07/17 08:00 89 12/07/17 08:00 Room Air 12/07/17 07:00 88 18 118/66 (83) 98 12/07/17 06:00 78 18 99/58 (72) 98 12/07/17 05:00 85 17 107/64 (78) 98 12/07/17 04:00 98.4 86 17 133/67 (89) 99 98.4 12/07/17 04:00 Room Air 12/07/17 04:00 83 12/07/17 03:00 82 17 114/65 (81) 98 12/07/17 02:00 85 20 97/60 (72) 98 12/07/17 01:00 89 20 102/59 (73) 98 12/07/17 00:00 98.7 89 22 102/58 (73) 98 98.7 12/07/17 00:00 Room Air 12/07/17 00:00 93 12/06/17 23:00 86 21 97/56 (70) 99 12/06/17 22:00 84 20 92/52 (65) 99 12/06/17 21:00 90 18 120/59 (79) 99 12/06/17 20:36 94 111/57 12/06/17 20:00 Room Air 12/06/17 20:00 92 12/06/17 20:00 98.0 92 19 111/57 (75) 99 98.0 12/06/17 19:00 94 21 120/61 (80) 100 12/06/17 18:00 94 14 131/72 (91) 100 12/06/17 17:00 91 14 122/66 (84) 99 12/06/17 16:02 95 12/06/17 16:00 99.0 97 21 119/65 (83) 100 99.0 12/06/17 16:00 Room Air 12/06/17 15:00 96 22 128/68 (88) 99 12/06/17 14:00 96 22 120/60 (80) 99 Intake and Output 12/06/17 12/07/17 19:00 07:00 Intake Total 1442.214 ml 1401.712 ml Output Total 385 ml 610 ml Balance 1057.214 ml 791.712 ml Intake Oral 80 ml 100 ml IV Total 1362.214 ml 1301.712 ml Output Urine Total 385 ml 610 ml # Bowel Movements 2 Laboratory Tests 12/06/17 18:35: Activated Partial Thromboplast Time 54H, Troponin I 0.729H 12/07/17 02:45: Activated Partial Thromboplast Time > 150*H 12/07/17 04:00: Sodium Level 138, Potassium Level 3.9, Chloride Level 108H, Carbon Dioxide Level 25, Anion Gap 5, Blood Urea Nitrogen 21H, Creatinine 1.0, Estimat Glomerular Filtration Rate > 60, Glucose Level 177H, Calcium Level 8.3L 12/07/17 07:10: Troponin I 0.614H, White Blood Count 9.4, Red Blood Count 3.51L, Hemoglobin 10.7L, Hematocrit 31.5L, Mean Corpuscular Volume 90, Mean Corpuscular Hemoglobin 30.5, Mean Corpuscular Hemoglobin Concent 34.0, Red Cell Distribution Width 12.4, Platelet Count 140L, Mean Platelet Volume 8.4, Neutrophils (%) (Auto) 55.0, Lymphocytes (%) (Auto) 36.4, Monocytes (%) (Auto) 6.4, Eosinophils (%) (Auto) 1.0, Basophils (%) (Auto) 1.2, Phosphorus Level 2.9 , Magnesium Level 1.9, Total Bilirubin 0.4, Direct Bilirubin 0.2, Aspartate Amino Transf (AST/SGOT) 30, Alanine Aminotransferase (ALT/SGPT) 25, Alkaline Phosphatase 64, Total Protein 5.1L, Albumin 2.4L 12/07/17 11:00: Activated Partial Thromboplast Time 73H Height (Feet): 5 Height (Inches): 6.00 Weight (Pounds): 176 General Appearance: no apparent distress, confused EENT: PERRL/EOMI Neck: normal alignment Cardiovascular: normal peripheral pulses Respiratory/Chest: no respiratory distress Abdomen: no mass David De Jesus MD Dec 07, 2017 13:40
--- NOTE | 2017-12-07 15:03 | Infectious Diseases Prog Note ---
Assessment/Plan Assessment/Plan A: SIRS improving DKA improving NSTE-VA Acute renal failure improving Hyperkalemia, corrected P; Observe off antibiotic Subjective ROS Limited/Unobtainable: No Respiratory: Reports: no symptoms Cardiovascular: Reports: no symptoms Gastrointestinal/Abdominal: Reports: no symptoms Genitourinary: Reports: no symptoms Allergies: Coded Allergies: PENICILLINS (Verified Allergy, Unknown, 12/05/17) Objective Vital Signs Last 24 Hour Vital Signs Date Time Temp Pulse Resp B/P (MAP) Pulse Ox O2 Delivery O2 Flow Rate FiO2 12/07/17 14:00 85 19 132/86 (101) 99 12/07/17 13:00 81 18 109/62 (78) 98 12/07/17 12:00 76 12/07/17 12:00 Room Air 12/07/17 12:00 98.1 76 17 117/68 (84) 98 98.1 12/07/17 11:00 75 18 114/66 (82) 99 12/07/17 10:00 76 18 111/67 (82) 99 12/07/17 09:00 74 18 118/61 (80) 98 12/07/17 08:21 118/66 12/07/17 08:20 92 118/66 12/07/17 08:00 98.1 94 17 118/66 (83) 98 98.1 12/07/17 08:00 89 12/07/17 08:00 Room Air 12/07/17 07:00 88 18 118/66 (83) 98 12/07/17 06:00 78 18 99/58 (72) 98 12/07/17 05:00 85 17 107/64 (78) 98 12/07/17 04:00 98.4 86 17 133/67 (89) 99 98.4 12/07/17 04:00 Room Air 12/07/17 04:00 83 12/07/17 03:00 82 17 114/65 (81) 98 12/07/17 02:00 85 20 97/60 (72) 98 12/07/17 01:00 89 20 102/59 (73) 98 12/07/17 00:00 98.7 89 22 102/58 (73) 98 98.7 12/07/17 00:00 Room Air 12/07/17 00:00 93 7/26/18 23:00 86 21 97/56 (70) 99 12/06/17 22:00 84 20 92/52 (65) 99 12/06/17 21:00 90 18 120/59 (79) 99 12/06/17 20:36 94 111/57 12/06/17 20:00 Room Air 12/06/17 20:00 92 12/06/17 20:00 98.0 92 19 111/57 (75) 99 98.0 12/06/17 19:00 94 21 120/61 (80) 100 12/06/17 18:00 94 14 131/72 (91) 100 12/06/17 17:00 91 14 122/66 (84) 99 12/06/17 16:02 95 12/06/17 16:00 99.0 97 21 119/65 (83) 100 99.0 12/06/17 16:00 Room Air Height (Feet): 5 Height (Inches): 6.00 Weight (Pounds): 176 General Appearance: no acute distress HEENT: mucous membranes moist Respiratory/Chest: lungs clear Cardiovascular: normal rate Abdomen: soft, non tender Extremities: no edema Neurologic/Psychiatric: alert, oriented x 3, responsive Microbiology Date/Time Source Procedure Growth Status 12/05/17 10:55 Blood Blood Culture - Preliminary NO GROWTH AFTER 24 HOURS Resulted 12/05/17 10:45 Blood Blood Culture - Preliminary NO GROWTH AFTER 24 HOURS Resulted 12/05/17 07:25 Nasal Nares MRSA Culture - Final NO METHICILLIN RESISTANT STAPH AUREUS... Complete 12/06/17 05:00 Straight Cath Urine Culture - Preliminary NO GROWTH Resulted 12/05/17 07:25 Rectum - Final NO CARBAPENEM-RESISTANT ENTEROBACTERI... Complete 12/05/17 07:25 Rectum VRE Culture - Final NO VANCOMYCIN RESISTANT ENTEROCOCCUS ... Complete Laboratory Tests Test 12/06/17 18:35 12/07/17 02:45 12/07/17 04:00 12/07/17 07:10 Activated Partial Thromboplast Time 54 SEC (23-33) H > 150 SEC (23-33) *H Troponin I 0.729 ng/mL (0.000-0.056) 0.614 ng/mL (0.000-0.056) Sodium Level 138 MMOL/L (136-145) Potassium Level 3.9 MMOL/L (3.5-5.1) Chloride Level 108 MMOL/L (98-107) H Carbon Dioxide Level 25 MMOL/L (21-32) Anion Gap 5 mmol/L (5-15) Blood Urea Nitrogen 21 mg/dL (7-18) H Creatinine 1.0 MG/DL (0.55-1.30) Estimat Glomerular Filtration Rate > 60 mL/min (>60) Glucose Level 177 MG/DL (74-106) H Calcium Level 8.3 MG/DL (8.5-10.1) L White Blood Count 9.4 K/UL (4.8-10.8) Red Blood Count 3.51 M/UL (4.20-5.40) L Hemoglobin 10.7 G/DL (12.0-16.0) L Hematocrit 31.5 % (37.0-47.0) L Mean Corpuscular Volume 90 FL (80-99) Mean Corpuscular Hemoglobin 30.5 PG (27.0-31.0) Mean Corpuscular Hemoglobin Concent 34.0 G/DL (32.0-36.0) Red Cell Distribution Width 12.4 % (11.6-14.8) Platelet Count 140 K/UL (150-450) L Mean Platelet Volume 8.4 FL (6.5-10.1) Neutrophils (%) (Auto) 55.0 % (45.0-75.0) Lymphocytes (%) (Auto) 36.4 % (20.0-45.0) Monocytes (%) (Auto) 6.4 % (1.0-10.0) Eosinophils (%) (Auto) 1.0 % (0.0-3.0) Basophils (%) (Auto) 1.2 % (0.0-2.0) Phosphorus Level 2.9 MG/DL (2.5-4.9) Magnesium Level 1.9 MG/DL (1.8-2.4) Total Bilirubin 0.4 MG/DL (0.2-1.0) Direct Bilirubin 0.2 MG/DL (0.0-0.3) Aspartate Amino Transf (AST/SGOT) 30 U/L (15-37) Alanine Aminotransferase (ALT/SGPT) 25 U/L (12-78) Alkaline Phosphatase 64 U/L (46-116) Total Protein 5.1 G/DL (6.4-8.2) L Albumin 2.4 G/DL (3.4-5.0) L Test 12/07/17 11:00 Activated Partial Thromboplast Time 73 SEC (23-33) H Current Medications Medications (Trade) Dose Ordered Sig/Enrike Route PRN Reason Start Time Stop Time Status Last Admin Dose Admin Aspirin (ASA) 81 mg DAILY ORAL 12/06/17 09:00 01/05/18 08:59 12/07/17 08:20 Atorvastatin Calcium (Lipitor) 80 mg BEDTIME ORAL 12/06/17 21:00 01/05/18 20:59 12/06/17 20:36 Dextrose (Dextrose 50%) 25 ml STAT PRN IV Hypoglycemia 12/06/17 07:00 01/05/18 06:59 Dextrose (Dextrose 50%) 50 ml STAT PRN IV Hypoglycemia 12/06/17 07:00 01/05/18 06:59 Docusate Sodium (Colace) 100 mg TWICE A DAY ORAL 12/06/17 09:00 01/05/18 08:59 12/07/17 08:23 Haloperidol Lactate (Haldol) 5 mg Q6H PRN IM Agitation 12/05/17 16:15 01/04/18 16:14 Heparin Sodium/ Dextrose 500 ml @ 15.516 mls/ hr adjust per protocol IV 12/07/17 05:10 01/05/18 20:29 12/07/17 05:16 Insulin Aspart (NovoLOG) EVERY 4 HOURS SUBQ 12/06/17 09:00 01/05/18 08:59 12/07/17 08:27 Insulin Detemir (Levemir) 12 units Q12HR SUBQ 12/06/17 09:00 01/05/18 08:59 12/07/17 08:26 Metoprolol Tartrate (Lopressor) 25 mg Q12HR ORAL 12/06/17 09:00 01/05/18 20:59 12/07/17 08:20 Nitroglycerin (Ntg) 1 patch Q24H TDERMAL 12/06/17 09:00 01/05/18 08:59 12/07/17 08:21 Pantoprazole (Protonix) 40 mg BID ORAL 12/06/17 09:18 01/05/18 09:17 12/07/17 08:20 Quetiapine Fumarate (SEROquel) 25 mg Q6H PRN ORAL For Anxiety 12/05/17 16:15 01/04/18 16:14 Quetiapine Fumarate (SEROquel) 50 mg BEDTIME ORAL 12/05/17 21:00 01/04/18 20:59 12/06/17 20:36 Mike Dickinson MD Dec 07, 2017 15:03
--- NOTE | 2017-12-07 16:44 | General Progress Note ---
Assessment/Plan Problem List: (1) Diabetes mellitus out of control ICD Codes: E11.65 - Type 2 diabetes mellitus with hyperglycemia SNOMED: 39342194, 934222601 (2) DKA (diabetic ketoacidoses) ICD Codes: E13.10 - Other specified diabetes mellitus with ketoacidosis without coma SNOMED: 592514314, 43271659 Qualifiers: Qualified Codes: E13.10 - Other specified diabetes mellitus with ketoacidosis without coma (3) High anion gap metabolic acidosis ICD Codes: E87.2 - Acidosis SNOMED: 13251795 (4) Renal insufficiency ICD Codes: N28.9 - Disorder of kidney and ureter, unspecified SNOMED: 233673597, 729756654 (5) Hyperkalemia ICD Codes: E87.5 - Hyperkalemia SNOMED: 73436176 (6) Leukocytosis ICD Codes: D72.829 - Elevated white blood cell count, unspecified SNOMED: 187807298, 844116048 Assessment/Plan DKA resolved fair glycemic control continue Levemir 12 units bid continue NISS every 4 hours Subjective ROS Limited/Unobtainable: Yes Allergies: Coded Allergies: PENICILLINS (Verified Allergy, Unknown, 12/05/17) Subjective events noted Objective Last 24 Hour Vital Signs Date Time Temp Pulse Resp B/P (MAP) Pulse Ox O2 Delivery O2 Flow Rate FiO2 12/07/17 15:00 88 26 120/75 (90) 99 12/07/17 14:00 85 19 132/86 (101) 99 12/07/17 13:00 81 18 109/62 (78) 98 12/07/17 12:00 76 12/07/17 12:00 Room Air 12/07/17 12:00 98.1 76 17 117/68 (84) 98 98.1 12/07/17 11:00 75 18 114/66 (82) 99 12/07/17 10:00 76 18 111/67 (82) 99 12/07/17 09:00 74 18 118/61 (80) 98 12/07/17 08:21 118/66 12/07/17 08:20 92 118/66 12/07/17 08:00 98.1 94 17 118/66 (83) 98 98.1 12/07/17 08:00 89 12/07/17 08:00 Room Air 12/07/17 07:00 88 18 118/66 (83) 98 12/07/17 06:00 78 18 99/58 (72) 98 12/07/17 05:00 85 17 107/64 (78) 98 12/07/17 04:00 98.4 86 17 133/67 (89) 99 98.4 12/07/17 04:00 Room Air 12/07/17 04:00 83 12/07/17 03:00 82 17 114/65 (81) 98 12/07/17 02:00 85 20 97/60 (72) 98 12/07/17 01:00 89 20 102/59 (73) 98 12/07/17 00:00 98.7 89 22 102/58 (73) 98 98.7 12/07/17 00:00 Room Air 12/07/17 00:00 93 12/06/17 23:00 86 21 97/56 (70) 99 12/06/17 22:00 84 20 92/52 (65) 99 12/06/17 21:00 90 18 120/59 (79) 99 12/06/17 20:36 94 111/57 12/06/17 20:00 Room Air 12/06/17 20:00 92 12/06/17 20:00 98.0 92 19 111/57 (75) 99 98.0 12/06/17 19:00 94 21 120/61 (80) 100 12/06/17 18:00 94 14 131/72 (91) 100 12/06/17 17:00 91 14 122/66 (84) 99 Intake and Output 12/06/17 12/07/17 19:00 07:00 Intake Total 1442.214 ml 1401.712 ml Output Total 385 ml 610 ml Balance 1057.214 ml 791.712 ml Intake Oral 80 ml 100 ml IV Total 1362.214 ml 1301.712 ml Output Urine Total 385 ml 610 ml # Bowel Movements 2 Laboratory Tests 12/06/17 18:35: Activated Partial Thromboplast Time 54H, Troponin I 0.729H 12/07/17 02:45: Activated Partial Thromboplast Time > 150*H 12/07/17 04:00: Sodium Level 138, Potassium Level 3.9, Chloride Level 108H, Carbon Dioxide Level 25, Anion Gap 5, Blood Urea Nitrogen 21H, Creatinine 1.0, Estimat Glomerular Filtration Rate > 60, Glucose Level 177H, Calcium Level 8.3L 12/07/17 07:10: Troponin I 0.614H, White Blood Count 9.4, Red Blood Count 3.51L, Hemoglobin 10.7L, Hematocrit 31.5L, Mean Corpuscular Volume 90, Mean Corpuscular Hemoglobin 30.5, Mean Corpuscular Hemoglobin Concent 34.0, Red Cell Distribution Width 12.4, Platelet Count 140L, Mean Platelet Volume 8.4, Neutrophils (%) (Auto) 55.0, Lymphocytes (%) (Auto) 36.4, Monocytes (%) (Auto) 6.4, Eosinophils (%) (Auto) 1.0, Basophils (%) (Auto) 1.2, Phosphorus Level 2.9 , Magnesium Level 1.9, Total Bilirubin 0.4, Direct Bilirubin 0.2, Aspartate Amino Transf (AST/SGOT) 30, Alanine Aminotransferase (ALT/SGPT) 25, Alkaline Phosphatase 64, Total Protein 5.1L, Albumin 2.4L 12/07/17 11:00: Activated Partial Thromboplast Time 73H Height (Feet): 5 Height (Inches): 6.00 Weight (Pounds): 176 General Appearance: no apparent distress Neck: normal alignment Cardiovascular: normal rate Respiratory/Chest: lungs clear Abdomen: normal bowel sounds Objective Current Medications Medications (Trade) Dose Ordered Sig/Enrike Route PRN Reason Start Time Stop Time Status Last Admin Dose Admin Aspirin (ASA) 81 mg DAILY ORAL 12/06/17 09:00 01/05/18 08:59 12/07/17 08:20 Atorvastatin Calcium (Lipitor) 80 mg BEDTIME ORAL 12/06/17 21:00 01/05/18 20:59 12/06/17 20:36 Dextrose (Dextrose 50%) 25 ml STAT PRN IV Hypoglycemia 12/06/17 07:00 01/05/18 06:59 Dextrose (Dextrose 50%) 50 ml STAT PRN IV Hypoglycemia 12/06/17 07:00 01/05/18 06:59 Docusate Sodium (Colace) 100 mg TWICE A DAY ORAL 12/06/17 09:00 01/05/18 08:59 12/07/17 08:23 Haloperidol Lactate (Haldol) 5 mg Q6H PRN IM Agitation 12/05/17 16:15 01/04/18 16:14 Heparin Sodium/ Dextrose 500 ml @ 15.516 mls/ hr adjust per protocol IV 12/07/17 05:10 01/05/18 20:29 12/07/17 16:10 Insulin Aspart (NovoLOG) EVERY 4 HOURS SUBQ 12/06/17 09:00 01/05/18 08:59 12/07/17 08:27 Insulin Detemir (Levemir) 12 units Q12HR SUBQ 12/06/17 09:00 01/05/18 08:59 12/07/17 08:26 Metoprolol Tartrate (Lopressor) 25 mg Q12HR ORAL 12/06/17 09:00 01/05/18 20:59 12/07/17 08:20 Nitroglycerin (Ntg) 1 patch Q24H TDERMAL 12/06/17 09:00 01/05/18 08:59 12/07/17 08:21 Pantoprazole (Protonix) 40 mg BID ORAL 12/06/17 09:18 01/05/18 09:17 12/07/17 08:20 Quetiapine Fumarate (SEROquel) 25 mg Q6H PRN ORAL For Anxiety 12/05/17 16:15 01/04/18 16:14 Quetiapine Fumarate (SEROquel) 50 mg BEDTIME ORAL 12/05/17 21:00 01/04/18 20:59 12/06/17 20:36 Item Value Date Time Bedside Blood Glucose 139 mg/dl H 12/07/17 1300 Bedside Blood Glucose 159 mg/dl H 12/07/17 0827 Bedside Blood Glucose 158 mg/dl H 12/07/17 0500 Bedside Blood Glucose 171 mg/dl H 12/07/17 0100 Bedside Blood Glucose 173 mg/dl H 12/06/17 2100 Bedside Blood Glucose 242 mg/dl H 12/06/17 1732 Bedside Blood Glucose 193 mg/dl H 12/06/17 1325 Mehdi Lopez MD Dec 07, 2017 16:44
--- NOTE | 2017-12-07 17:25 | Cardiology Progress Note ---
Assessment/Plan Assessment/Plan 1. NSTEMI , transfer to [facility] for heart cath, no ischemic changes on the ECG, CP free, no wall motion abnormalities on the Echo. Trop leak could be due to renal failure or other etiologies, DC heparin gtt, continue ASA 81, atorvastatin 80 and B-blockers for double product control. 2. DKA 3. Anion gap acidosis Subjective Subjective Sinus rhythm at 82. Denies chest pain or SOB. Objective Last 24 Hour Vital Signs Date Time Temp Pulse Resp B/P (MAP) Pulse Ox O2 Delivery O2 Flow Rate FiO2 12/07/17 17:00 82 14 121/69 (86) 100 12/07/17 17:00 76 12/07/17 16:00 98.4 83 20 130/60 (83) 98 98.4 12/07/17 16:00 Room Air 12/07/17 15:00 88 26 120/75 (90) 99 12/07/17 14:00 85 19 132/86 (101) 99 12/07/17 13:00 81 18 109/62 (78) 98 12/07/17 12:00 76 12/07/17 12:00 Room Air 12/07/17 12:00 98.1 76 17 117/68 (84) 98 98.1 12/07/17 11:00 75 18 114/66 (82) 99 12/07/17 10:00 76 18 111/67 (82) 99 12/07/17 09:00 74 18 118/61 (80) 98 12/07/17 08:21 118/66 12/07/17 08:20 92 118/66 12/07/17 08:00 98.1 94 17 118/66 (83) 98 98.1 12/07/17 08:00 89 12/07/17 08:00 Room Air 12/07/17 07:00 88 18 118/66 (83) 98 12/07/17 06:00 78 18 99/58 (72) 98 12/07/17 05:00 85 17 107/64 (78) 98 12/07/17 04:00 98.4 86 17 133/67 (89) 99 98.4 12/07/17 04:00 Room Air 12/07/17 04:00 83 12/07/17 03:00 82 17 114/65 (81) 98 12/07/17 02:00 85 20 97/60 (72) 98 12/07/17 01:00 89 20 102/59 (73) 98 12/07/17 00:00 98.7 89 22 102/58 (73) 98 98.7 12/07/17 00:00 Room Air 12/07/17 00:00 93 12/06/17 23:00 86 21 97/56 (70) 99 12/06/17 22:00 84 20 92/52 (65) 99 12/06/17 21:00 90 18 120/59 (79) 99 12/06/17 20:36 94 111/57 12/06/17 20:00 Room Air 12/06/17 20:00 92 12/06/17 20:00 98.0 92 19 111/57 (75) 99 98.0 12/06/17 19:00 94 21 120/61 (80) 100 12/06/17 18:00 94 14 131/72 (91) 100 Intake and Output 12/06/17 12/07/17 19:00 07:00 Intake Total 1442.214 ml 1401.712 ml Output Total 385 ml 610 ml Balance 1057.214 ml 791.712 ml Intake Oral 80 ml 100 ml IV Total 1362.214 ml 1301.712 ml Output Urine Total 385 ml 610 ml # Bowel Movements 2 2D Echo: EF 55%, CASEY 1.1 cm2, RVSP 42 mmhg, Mod MR Laboratory Tests Test 12/06/17 18:35 12/07/17 02:45 12/07/17 04:00 12/07/17 07:10 Activated Partial Thromboplast Time 54 SEC (23-33) H > 150 SEC (23-33) *H Troponin I 0.729 ng/mL (0.000-0.056) 0.614 ng/mL (0.000-0.056) Sodium Level 138 MMOL/L (136-145) Potassium Level 3.9 MMOL/L (3.5-5.1) Chloride Level 108 MMOL/L (98-107) H Carbon Dioxide Level 25 MMOL/L (21-32) Anion Gap 5 mmol/L (5-15) Blood Urea Nitrogen 21 mg/dL (7-18) H Creatinine 1.0 MG/DL (0.55-1.30) Estimat Glomerular Filtration Rate > 60 mL/min (>60) Glucose Level 177 MG/DL (74-106) H Calcium Level 8.3 MG/DL (8.5-10.1) L White Blood Count 9.4 K/UL (4.8-10.8) Red Blood Count 3.51 M/UL (4.20-5.40) L Hemoglobin 10.7 G/DL (12.0-16.0) L Hematocrit 31.5 % (37.0-47.0) L Mean Corpuscular Volume 90 FL (80-99) Mean Corpuscular Hemoglobin 30.5 PG (27.0-31.0) Mean Corpuscular Hemoglobin Concent 34.0 G/DL (32.0-36.0) Red Cell Distribution Width 12.4 % (11.6-14.8) Platelet Count 140 K/UL (150-450) L Mean Platelet Volume 8.4 FL (6.5-10.1) Neutrophils (%) (Auto) 55.0 % (45.0-75.0) Lymphocytes (%) (Auto) 36.4 % (20.0-45.0) Monocytes (%) (Auto) 6.4 % (1.0-10.0) Eosinophils (%) (Auto) 1.0 % (0.0-3.0) Basophils (%) (Auto) 1.2 % (0.0-2.0) Phosphorus Level 2.9 MG/DL (2.5-4.9) Magnesium Level 1.9 MG/DL (1.8-2.4) Total Bilirubin 0.4 MG/DL (0.2-1.0) Direct Bilirubin 0.2 MG/DL (0.0-0.3) Aspartate Amino Transf (AST/SGOT) 30 U/L (15-37) Alanine Aminotransferase (ALT/SGPT) 25 U/L (12-78) Alkaline Phosphatase 64 U/L (46-116) Total Protein 5.1 G/DL (6.4-8.2) L Albumin 2.4 G/DL (3.4-5.0) L Test 12/07/17 11:00 Activated Partial Thromboplast Time 73 SEC (23-33) H Microbiology Date/Time Source Procedure Growth Status 12/05/17 10:55 Blood Blood Culture - Preliminary NO GROWTH AFTER 24 HOURS Resulted 12/05/17 10:45 Blood Blood Culture - Preliminary NO GROWTH AFTER 24 HOURS Resulted 12/05/17 07:25 Nasal Nares MRSA Culture - Final NO METHICILLIN RESISTANT STAPH AUREUS... Complete 12/06/17 05:00 Straight Cath Urine Culture - Preliminary NO GROWTH Resulted 12/05/17 07:25 Rectum - Final NO CARBAPENEM-RESISTANT ENTEROBACTERI... Complete 12/05/17 07:25 Rectum VRE Culture - Final NO VANCOMYCIN RESISTANT ENTEROCOCCUS ... Complete Objective HEENT: normocephalic, atraumatic bilateral eye normal inspection, bilateral eye PERRL Neck: No JVD, no carotid bruit Respiratory: chest non-tender, lungs clear, normal breath sounds, speaking full sentences Cardiovascular: regular rate, rhythm, normal S1S2, no murmurs, gallops or rubs. Gastrointestinal: normal bowel sounds, non tender, soft, non-distended, no guarding, no rebound Genitourinary: normal inspection, no CVA tenderness Musculoskeletal: no edema, clubbing or cyanosis. Bimal Mata MD Dec 07, 2017 17:25
[2017-12-07] MEDS ORDERED: Heparin 25,000u/D5W 500ml 500 ML IV SCH (17:30)
--- NOTE | 2017-12-07 18:42 | General Progress Note ---
Assessment/Plan Problem List: (1) DKA (diabetic ketoacidoses) ICD Codes: E13.10 - Other specified diabetes mellitus with ketoacidosis without coma SNOMED: 097272897, [id number] Qualifiers: Qualified Codes: E13.10 - Other specified diabetes mellitus with ketoacidosis without coma (2) Acute on chronic renal failure ICD Codes: N17.9 - Acute kidney failure, unspecified; N18.9 - Chronic kidney disease, unspecified SNOMED: 241890521 (3) Hyperkalemia ICD Codes: E87.5 - Hyperkalemia SNOMED: 98263780 Status: progressing Assessment/Plan dka gone diabetic education reviewed chart and labs sugars are improving gap is treated Subjective ROS Limited/Unobtainable: Yes Allergies: Coded Allergies: PENICILLINS (Verified Allergy, Unknown, 12/05/17) Objective Last 24 Hour Vital Signs Date Time Temp Pulse Resp B/P (MAP) Pulse Ox O2 Delivery O2 Flow Rate FiO2 12/07/17 18:00 98.2 87 16 135/77 (96) 96 98.2 12/07/17 17:00 82 14 121/69 (86) 100 12/07/17 17:00 76 12/07/17 16:00 98.4 83 20 130/60 (83) 98 98.4 12/07/17 16:00 Room Air 12/07/17 15:00 88 26 120/75 (90) 99 12/07/17 14:00 85 19 132/86 (101) 99 12/07/17 13:00 81 18 109/62 (78) 98 12/07/17 12:00 76 12/07/17 12:00 Room Air 12/07/17 12:00 98.1 76 17 117/68 (84) 98 98.1 12/07/17 11:00 75 18 114/66 (82) 99 12/07/17 10:00 76 18 111/67 (82) 99 12/07/17 09:00 74 18 118/61 (80) 98 12/07/17 08:21 118/66 12/07/17 08:20 92 118/66 12/07/17 08:00 98.1 94 17 118/66 (83) 98 98.1 12/07/17 08:00 89 12/07/17 08:00 Room Air 12/07/17 07:00 88 18 118/66 (83) 98 12/07/17 06:00 78 18 99/58 (72) 98 12/07/17 05:00 85 17 107/64 (78) 98 12/07/17 04:00 98.4 86 17 133/67 (89) 99 98.4 12/07/17 04:00 Room Air 12/07/17 04:00 83 12/07/17 03:00 82 17 114/65 (81) 98 12/07/17 02:00 85 20 97/60 (72) 98 12/07/17 01:00 89 20 102/59 (73) 98 12/07/17 00:00 98.7 89 22 102/58 (73) 98 98.7 12/07/17 00:00 Room Air 12/07/17 00:00 93 12/06/17 23:00 86 21 97/56 (70) 99 12/06/17 22:00 84 20 92/52 (65) 99 12/06/17 21:00 90 18 120/59 (79) 99 12/06/17 20:36 94 111/57 12/06/17 20:00 Room Air 12/06/17 20:00 92 12/06/17 20:00 98.0 92 19 111/57 (75) 99 98.0 12/06/17 19:00 94 21 120/61 (80) 100 Intake and Output 12/06/17 12/07/17 19:00 07:00 Intake Total 1442.214 ml 1401.712 ml Output Total 385 ml 610 ml Balance 1057.214 ml 791.712 ml Intake Oral 80 ml 100 ml IV Total 1362.214 ml 1301.712 ml Output Urine Total 385 ml 610 ml # Bowel Movements 2 Laboratory Tests 12/07/17 02:45: Activated Partial Thromboplast Time > 150*H 12/07/17 04:00: Sodium Level 138, Potassium Level 3.9, Chloride Level 108H, Carbon Dioxide Level 25, Anion Gap 5, Blood Urea Nitrogen 21H, Creatinine 1.0, Estimat Glomerular Filtration Rate > 60, Glucose Level 177H, Calcium Level 8.3L 12/07/17 07:10: White Blood Count 9.4, Red Blood Count 3.51L, Hemoglobin 10.7L, Hematocrit 31.5L , Mean Corpuscular Volume 90, Mean Corpuscular Hemoglobin 30.5, Mean Corpuscular Hemoglobin Concent 34.0, Red Cell Distribution Width 12.4, Platelet Count 140L, Mean Platelet Volume 8.4, Neutrophils (%) (Auto) 55.0, Lymphocytes ( %) (Auto) 36.4, Monocytes (%) (Auto) 6.4, Eosinophils (%) (Auto) 1.0, Basophils (%) (Auto) 1.2, Phosphorus Level 2.9, Magnesium Level 1.9, Total Bilirubin 0.4, Direct Bilirubin 0.2, Aspartate Amino Transf (AST/SGOT) 30, Alanine Aminotransferase (ALT/SGPT) 25, Alkaline Phosphatase 64, Troponin I 0.614H, Total Protein 5.1L, Albumin 2.4L 12/07/17 11:00: Activated Partial Thromboplast Time 73H Height (Feet): 5 Height (Inches): 6.00 Weight (Pounds): 176 Cardiovascular: normal rate Respiratory/Chest: lungs clear Abdomen: non tender Delaney Fontana MD Dec 07, 2017 18:42
[2017-12-07] MEDS ORDERED: Haloperidol 5mg/ml Inj IM PRN (19:00)
[2017-12-07] MEDS ORDERED: Atorvastatin 80mg tab ORAL SCH (21:00)
[2017-12-07] MEDS: Metoprolol 25mg tab ORAL SCH (21:05)
[2017-12-08] VITALS: BP 111/55
[2017-12-08] MEDS: NovoLOG Insulin Flexpen SUBQ SCH ×6 (00:49→20:35)
[2017-12-08 04:00] VITALS: BP 138/69
[2017-12-08 07:50] VITALS: BP 133/75
[2017-12-08] MEDS: Metoprolol 25mg tab ORAL SCH ×2 (08:13→20:31)
[2017-12-08] MEDS: Docusate 100mg cap ORAL SCH ×2 (08:13→17:21)
[2017-12-08] MEDS: Aspirin Baby 81mg ORAL SCH (08:13)
[2017-12-08] MEDS: Levemir Flexpen SUBQ SCH ×2 (08:21→20:34)
[2017-12-08] MEDS: Nitroglycerin Patch 0.4mg TDERMAL SCH (08:28)
--- NOTE | 2017-12-08 09:19 | Pulmonology Progress Note ---
Assessment/Plan Problems: (1) DKA (diabetic ketoacidoses) Assessment & Plan: RESOLVED (2) High anion gap metabolic acidosis Assessment & Plan: RESOLVED (3) Diabetes mellitus out of control Assessment & Plan: BETTER (4) Leukocytosis Assessment & Plan: RESOLVED (5) Acute on chronic renal failure Assessment & Plan: RESOLVED (6) NSTEMI (non-ST elevated myocardial infarction) Assessment & Plan: TROPS DOWNTRENDING, TTE without WMA Assessment/Plan -Optimize pulmonary hygiene/mobilize as tolerated -PRN O2 -Glycemic control per ENDO -Continue ASA, statin, BB -F/U cards recs Re: ischemia eval, ? transfer to OSH vs non-invasive testing here -DVT Px: start Hep SQ now that pt if off IVUH -Aspiration precautions Subjective Allergies: Coded Allergies: PENICILLINS (Verified Allergy, Unknown, 12/05/17) Subjective TTF, AFVSS, stable on RA BS well controlled, no F/C/CP/SOB Ambulating, trops downtrending, off IVUH Objective Last 24 Hour Vital Signs Date Time Temp Pulse Resp B/P (MAP) Pulse Ox O2 Delivery O2 Flow Rate FiO2 12/08/17 08:28 133/75 12/08/17 08:13 90 133/75 12/08/17 07:50 98.3 90 18 133/75 (94) 98 98.3 12/08/17 04:00 98.2 90 18 138/69 (92) 96 98.2 12/08/17 04:00 Room Air 12/08/17 03:42 86 12/08/17 00:00 98.6 92 19 111/55 (73) 95 98.6 12/08/17 00:00 Room Air 12/07/17 23:48 90 12/07/17 21:05 90 147/81 12/07/17 20:00 99.7 90 22 147/81 (103) 98 99.7 12/07/17 20:00 Room Air 12/07/17 19:03 85 12/07/17 18:00 98.2 87 16 135/77 (96) 96 98.2 12/07/17 17:00 82 14 121/69 (86) 100 12/07/17 17:00 76 12/07/17 16:00 98.4 83 20 130/60 (83) 98 98.4 12/07/17 16:00 Room Air 12/07/17 15:00 88 26 120/75 (90) 99 12/07/17 14:00 85 19 132/86 (101) 99 12/07/17 13:00 81 18 109/62 (78) 98 12/07/17 12:00 76 12/07/17 12:00 Room Air 12/07/17 12:00 98.1 76 17 117/68 (84) 98 98.1 12/07/17 11:00 75 18 114/66 (82) 99 12/07/17 10:00 76 18 111/67 (82) 99 Intake and Output 12/07/17 12/08/17 19:00 07:00 Intake Total 1259.644 ml Output Total 725 ml Balance 534.644 ml Intake Oral 820 ml IV Total 439.644 ml Output Urine Total 725 ml # Bowel Movements 2 General Appearance: WD/WN, no acute distress HEENT: normocephalic, atraumatic, anicteric, mucous membranes moist Respiratory/Chest: chest wall non-tender, lungs clear, normal breath sounds, no respiratory distress, no accessory muscle use Cardiovascular: normal peripheral pulses, normal rate, regular rhythm Abdomen: normal bowel sounds, soft, non tender, no organomegaly, non distended , no mass Extremities: no cyanosis, no clubbing, no edema Microbiology Date/Time Source Procedure Growth Status 12/05/17 10:55 Blood Blood Culture - Preliminary NO GROWTH AFTER 48 HOURS Resulted 12/05/17 10:45 Blood Blood Culture - Preliminary NO GROWTH AFTER 48 HOURS Resulted 12/06/17 05:00 Straight Cath Urine Culture - Final NO GROWTH AFTER 48 HOURS Complete Laboratory Tests 12/07/17 11:00: Activated Partial Thromboplast Time 73H Current Medications Medications (Trade) Dose Ordered Sig/Enrike Route PRN Reason Start Time Stop Time Status Last Admin Dose Admin Aspirin (ASA) 81 mg DAILY ORAL 12/08/17 09:00 01/05/18 08:59 12/08/17 08:13 Atorvastatin Calcium (Lipitor) 80 mg BEDTIME ORAL 12/07/17 21:00 01/05/18 20:59 12/07/17 21:04 Dextrose (Dextrose 50%) 25 ml STAT PRN IV Hypoglycemia 12/07/17 19:00 01/06/18 18:59 Dextrose (Dextrose 50%) 50 ml STAT PRN IV Hypoglycemia 12/07/17 19:00 01/06/18 18:59 Docusate Sodium (Colace) 100 mg TWICE A DAY ORAL 12/07/17 18:00 01/05/18 08:59 12/08/17 08:13 Haloperidol Lactate (Haldol) 5 mg Q6H PRN IM Agitation 12/07/17 19:00 01/04/18 18:59 Insulin Aspart (NovoLOG) EVERY 4 HOURS SUBQ 12/07/17 21:00 01/05/18 08:59 12/08/17 08:20 Insulin Detemir (Levemir) 12 units Q12HR SUBQ 12/07/17 21:00 01/05/18 08:59 12/08/17 08:21 Metoprolol Tartrate (Lopressor) 25 mg Q12HR ORAL 12/07/17 21:00 01/05/18 20:59 12/08/17 08:13 Nitroglycerin (Ntg) 1 patch Q24H TDERMAL 12/08/17 09:00 01/05/18 08:59 12/08/17 08:28 Pantoprazole (Protonix) 40 mg BID ORAL 12/07/17 18:00 01/05/18 09:17 12/08/17 08:13 Quetiapine Fumarate (SEROquel) 25 mg Q6H PRN ORAL For Anxiety 12/07/17 19:00 01/04/18 18:59 Quetiapine Fumarate (SEROquel) 50 mg BEDTIME ORAL 12/07/17 21:00 01/04/18 20:59 12/07/17 21:05 James Ellis MD Dec 08, 2017 09:19
[2017-12-08 10:34] LABS: BASOPHILS % (AUTO) 1.1 % (0.0-2.0); EOSINOPHILS % (AUTO) 2.2 % (0.0-3.0); HEMATOCRIT 33.4 % (37.0-47.0); HEMOGLOBIN 11.3 G/DL (12.0-16.0); LYMPHOCYTES % (AUTO) 38.2 % (20.0-45.0); MEAN CORPUSCULAR VOLUME 89 FL (80-99); MONOCYTES % (AUTO) 8.3 % (1.0-10.0); NEUTROPHILS % (AUTO) 50.2 % (45.0-75.0); PLATELET COUNT 145 K/UL (150-450); RED BLOOD COUNT 3.74 M/UL (4.20-5.40); RED CELL DISTRIBUTION WIDTH 12.2 % (11.6-14.8); WHITE BLOOD COUNT 7.2 K/UL (4.8-10.8)
--- NOTE | 2017-12-08 10:41 | General Progress Note ---
Assessment/Plan Status: stable Assessment/Plan 1. Leukocytosis likely secondary to underlying diabetic ketoacidosis, rule out underlying infection. --> Chest x-ray: No acute process; urinalysis ++ --> Obtain peripheral smear. --> WBC improving. 2. Anemia due to underlying chronic disease. --> Continue to closely monitor for improvement. --> Anemia w/u has been reviewed. Will trend cbc daily. --> Hgb goal >7 3. Hyperkalemia. given Kayexalate. 4. Diabetic ketoacidosis. She has been seen by Pulmonary team, Dr. Ellis. 5. High anion gap acidosis. To be seen by primary team. --> Gap is closing. On insulin sliding scale insulin. 6. Shortness of breath likely, due to underlying diabetic ketoacidosis. The time the note was entered does not necessarily correspond to the time the patient was seen. Subjective Date patient seen: Dec 08, 2017 ROS Limited/Unobtainable: Yes Hematologic/Lymphatic: Reports: anemia Allergies: Coded Allergies: PENICILLINS (Verified Allergy, Unknown, 12/05/17) All Systems: reviewed and negative except above Subjective Pt transferred from ICU to tele unit. Pt awake and confused. No acute events. H/ H stable. Awaiting transfer to [facility]. Objective Last 24 Hour Vital Signs Date Time Temp Pulse Resp B/P (MAP) Pulse Ox O2 Delivery O2 Flow Rate FiO2 12/08/17 08:28 133/75 12/08/17 08:13 90 133/75 12/08/17 07:50 98.3 90 18 133/75 (94) 98 98.3 12/08/17 04:00 98.2 90 18 138/69 (92) 96 98.2 12/08/17 04:00 Room Air 12/08/17 03:42 86 12/08/17 00:00 98.6 92 19 111/55 (73) 95 98.6 12/08/17 00:00 Room Air 12/07/17 23:48 90 12/07/17 21:05 90 147/81 12/07/17 20:00 99.7 90 22 147/81 (103) 98 99.7 12/07/17 20:00 Room Air 12/07/17 19:03 85 12/07/17 18:00 98.2 87 16 135/77 (96) 96 98.2 12/07/17 17:00 82 14 121/69 (86) 100 12/07/17 17:00 76 12/07/17 16:00 98.4 83 20 130/60 (83) 98 98.4 12/07/17 16:00 Room Air 12/07/17 15:00 88 26 120/75 (90) 99 12/07/17 14:00 85 19 132/86 (101) 99 12/07/17 13:00 81 18 109/62 (78) 98 12/07/17 12:00 76 12/07/17 12:00 Room Air 12/07/17 12:00 98.1 76 17 117/68 (84) 98 98.1 12/07/17 11:00 75 18 114/66 (82) 99 Intake and Output 12/07/17 12/08/17 19:00 07:00 Intake Total 1259.644 ml Output Total 725 ml Balance 534.644 ml Intake Oral 820 ml IV Total 439.644 ml Output Urine Total 725 ml # Bowel Movements 2 Laboratory Tests 12/07/17 11:00: Activated Partial Thromboplast Time 73H 12/08/17 09:50: White Blood Count [Pending], Red Blood Count [Pending], Hemoglobin [Pending], Hematocrit [Pending], Mean Corpuscular Volume [Pending], Mean Corpuscular Hemoglobin [Pending], Mean Corpuscular Hemoglobin Concent [Pending], Red Cell Distribution Width [Pending], Platelet Count [Pending], Mean Platelet Volume [ Pending], Neutrophils (%) (Auto) [Pending], Lymphocytes (%) (Auto) [Pending], Monocytes (%) (Auto) [Pending], Eosinophils (%) (Auto) [Pending], Basophils (%) (Auto) [Pending], Sodium Level [Pending], Potassium Level [Pending], Chloride Level [Pending], Carbon Dioxide Level [Pending], Blood Urea Nitrogen [Pending], Creatinine [Pending], Estimat Glomerular Filtration Rate [Pending], Glucose Level [Pending], Calcium Level [Pending], Total Bilirubin [Pending], Aspartate Amino Transf (AST/SGOT) [Pending], Alanine Aminotransferase (ALT/SGPT) [Pending] , Alkaline Phosphatase [Pending], Total Protein [Pending], Albumin [Pending], Globulin [Pending] Height (Feet): 5 Height (Inches): 6.00 Weight (Pounds): 174 General Appearance: no apparent distress EENT: PERRL/EOMI Neck: normal alignment Cardiovascular: normal peripheral pulses Respiratory/Chest: no respiratory distress Abdomen: soft David De Jesus MD Dec 08, 2017 10:41
[2017-12-08 10:55] LABS: ALANINE AMINOTRANSFERASE 23 U/L (12-78); ALBUMIN 2.5 G/DL (3.4-5.0); ALBUMIN/GLOBULIN RATIO 0.8 (1.0-2.7); ALKALINE PHOSPHATASE 78 U/L (46-116); ANION GAP 8 mmol/L (5-15); ASPARTATE AMINO TRANSFERASE 25 U/L (15-37); BILIRUBIN,TOTAL 0.4 MG/DL (0.2-1.0); BLOOD UREA NITROGEN 12 mg/dL (7-18); CALCIUM 8.4 MG/DL (8.5-10.1); CARBON DIOXIDE 25 MMOL/L (21-32); CHLORIDE 107 MMOL/L (98-107); CREATININE 0.9 MG/DL (0.55-1.30); POTASSIUM 4.1 MMOL/L (3.5-5.1); SODIUM 140 MMOL/L (136-145)
--- NOTE | 2017-12-08 10:57 | Infectious Diseases Prog Note ---
Assessment/Plan Assessment/Plan antibiotics : none A 1. leucocytosis resolved 2. DKA resolved 3. renal failure resolved 4. NC P 1. continue off antibiotics Subjective Constitutional: Denies: fever, chills Respiratory: Denies: shortness of breath, dry cough Gastrointestinal/Abdominal: Denies: nausea, vomiting, diarrhea Musculoskeletal: Denies: pain Allergies: Coded Allergies: PENICILLINS (Verified Allergy, Unknown, 12/05/17) Objective Vital Signs Last 24 Hour Vital Signs Date Time Temp Pulse Resp B/P (MAP) Pulse Ox O2 Delivery O2 Flow Rate FiO2 12/08/17 08:28 133/75 12/08/17 08:13 90 133/75 12/08/17 07:50 98.3 90 18 133/75 (94) 98 98.3 12/08/17 04:00 98.2 90 18 138/69 (92) 96 98.2 12/08/17 04:00 Room Air 12/08/17 03:42 86 12/08/17 00:00 98.6 92 19 111/55 (73) 95 98.6 12/08/17 00:00 Room Air 12/07/17 23:48 90 12/07/17 21:05 90 147/81 12/07/17 20:00 99.7 90 22 147/81 (103) 98 99.7 12/07/17 20:00 Room Air 12/07/17 19:03 85 12/07/17 18:00 98.2 87 16 135/77 (96) 96 98.2 12/07/17 17:00 82 14 121/69 (86) 100 12/07/17 17:00 76 12/07/17 16:00 98.4 83 20 130/60 (83) 98 98.4 12/07/17 16:00 Room Air 12/07/17 15:00 88 26 120/75 (90) 99 12/07/17 14:00 85 19 132/86 (101) 99 12/07/17 13:00 81 18 109/62 (78) 98 12/07/17 12:00 76 12/07/17 12:00 Room Air 12/07/17 12:00 98.1 76 17 117/68 (84) 98 98.1 12/07/17 11:00 75 18 114/66 (82) 99 Height (Feet): 5 Height (Inches): 6.00 Weight (Pounds): 174 Respiratory/Chest: lungs clear Cardiovascular: normal rate, regular rhythm, no gallop/murmur Abdomen: soft, non tender Extremities: no edema Microbiology Date/Time Source Procedure Growth Status 12/05/17 10:55 Blood Blood Culture - Preliminary NO GROWTH AFTER 48 HOURS Resulted 12/06/17 05:00 Straight Cath Urine Culture - Final NO GROWTH AFTER 48 HOURS Complete Laboratory Tests Test 12/07/17 11:00 12/08/17 09:50 Activated Partial Thromboplast Time 73 SEC (23-33) H White Blood Count 7.2 K/UL (4.8-10.8) Red Blood Count 3.74 M/UL (4.20-5.40) L Hemoglobin 11.3 G/DL (12.0-16.0) L Hematocrit 33.4 % (37.0-47.0) L Mean Corpuscular Volume 89 FL (80-99) Mean Corpuscular Hemoglobin 30.2 PG (27.0-31.0) Mean Corpuscular Hemoglobin Concent 33.9 G/DL (32.0-36.0) Red Cell Distribution Width 12.2 % (11.6-14.8) Platelet Count 145 K/UL (150-450) L Mean Platelet Volume 8.1 FL (6.5-10.1) Neutrophils (%) (Auto) 50.2 % (45.0-75.0) Lymphocytes (%) (Auto) 38.2 % (20.0-45.0) Monocytes (%) (Auto) 8.3 % (1.0-10.0) Eosinophils (%) (Auto) 2.2 % (0.0-3.0) Basophils (%) (Auto) 1.1 % (0.0-2.0) Sodium Level Pending Potassium Level Pending Chloride Level Pending Carbon Dioxide Level Pending Blood Urea Nitrogen Pending Creatinine Pending Estimat Glomerular Filtration Rate Pending Glucose Level Pending Calcium Level Pending Total Bilirubin Pending Aspartate Amino Transf (AST/SGOT) Pending Alanine Aminotransferase (ALT/SGPT) Pending Alkaline Phosphatase Pending Total Protein Pending Albumin Pending Globulin Pending Current Medications Medications (Trade) Dose Ordered Sig/Enrike Route PRN Reason Start Time Stop Time Status Last Admin Dose Admin Aspirin (ASA) 81 mg DAILY ORAL 12/08/17 09:00 01/05/18 08:59 12/08/17 08:13 Atorvastatin Calcium (Lipitor) 80 mg BEDTIME ORAL 12/07/17 21:00 01/05/18 20:59 12/07/17 21:04 Dextrose (Dextrose 50%) 25 ml STAT PRN IV Hypoglycemia 12/07/17 19:00 01/06/18 18:59 Dextrose (Dextrose 50%) 50 ml STAT PRN IV Hypoglycemia 12/07/17 19:00 01/06/18 18:59 Docusate Sodium (Colace) 100 mg TWICE A DAY ORAL 12/07/17 18:00 01/05/18 08:59 12/08/17 08:13 Haloperidol Lactate (Haldol) 5 mg Q6H PRN IM Agitation 12/07/17 19:00 01/04/18 18:59 Heparin Sodium (Porcine) (Heparin 5000 units/ml) 5,000 units EVERY 12 HOURS SUBQ 12/08/17 21:00 01/07/18 20:59 UNV Insulin Aspart (NovoLOG) EVERY 4 HOURS SUBQ 12/07/17 21:00 01/05/18 08:59 12/08/17 08:20 Insulin Detemir (Levemir) 12 units Q12HR SUBQ 12/07/17 21:00 01/05/18 08:59 12/08/17 08:21 Metoprolol Tartrate (Lopressor) 25 mg Q12HR ORAL 12/07/17 21:00 01/05/18 20:59 12/08/17 08:13 Nitroglycerin (Ntg) 1 patch Q24H TDERMAL 12/08/17 09:00 01/05/18 08:59 12/08/17 08:28 Pantoprazole (Protonix) 40 mg BID ORAL 12/07/17 18:00 01/05/18 09:17 12/08/17 08:13 Quetiapine Fumarate (SEROquel) 25 mg Q6H PRN ORAL For Anxiety 12/07/17 19:00 01/04/18 18:59 Quetiapine Fumarate (SEROquel) 50 mg BEDTIME ORAL 12/07/17 21:00 01/04/18 20:59 12/07/17 21:05 ISAAK ARENAS Dec 08, 2017 10:57
[2017-12-08 11:34] VITALS: BP 144/77
--- NOTE | 2017-12-08 13:58 | Nephrology Progress Note ---
Assessment/Plan Problem List: (1) Acute on chronic renal failure Assessment: Cr normalized (2) Hyperkalemia Assessment: resolved (3) DKA (diabetic ketoacidoses) Assessment: resolved (4) Diabetes mellitus out of control (5) NSTEMI (non-ST elevated myocardial infarction) Assessment (1) DKA (diabetic ketoacidoses) (2) Leukocytosis ? undelrlying sepsis (3) Hyperkalemia, and acute renal failure, likely dehydration (4) High anion gap metabolic acidosis Plan asa, lopressor, nitrate K Phos as needed stop IV Fluid- Watch K and Phos , supplement as needed Insulin treatment Monitor lytes and renal parameters- 2D echo Left ventricular ejection fraction estimated to be 65-70 %. avoid nephrotoxics- Subjective ROS Limited/Unobtainable: No Objective Objective Last 24 Hour Vital Signs Date Time Temp Pulse Resp B/P (MAP) Pulse Ox O2 Delivery O2 Flow Rate FiO2 12/08/17 11:34 97.9 76 18 144/77 (99) 96 97.9 12/08/17 08:28 133/75 12/08/17 08:13 90 133/75 12/08/17 07:50 98.3 90 18 133/75 (94) 98 98.3 12/08/17 04:00 98.2 90 18 138/69 (92) 96 98.2 12/08/17 04:00 Room Air 12/08/17 03:42 86 12/08/17 00:00 98.6 92 19 111/55 (73) 95 98.6 12/08/17 00:00 Room Air 12/07/17 23:48 90 12/07/17 21:05 90 147/81 12/07/17 20:00 99.7 90 22 147/81 (103) 98 99.7 12/07/17 20:00 Room Air 12/07/17 19:03 85 12/07/17 18:00 98.2 87 16 135/77 (96) 96 98.2 12/07/17 17:00 82 14 121/69 (86) 100 12/07/17 17:00 76 12/07/17 16:00 98.4 83 20 130/60 (83) 98 98.4 12/07/17 16:00 Room Air 12/07/17 15:00 88 26 120/75 (90) 99 12/07/17 14:00 85 19 132/86 (101) 99 Intake and Output 12/07/17 12/08/17 19:00 07:00 Intake Total 1259.644 ml Output Total 725 ml Balance 534.644 ml Intake Oral 820 ml IV Total 439.644 ml Output Urine Total 725 ml # Bowel Movements 2 Laboratory Tests 12/08/17 09:50: White Blood Count 7.2, Red Blood Count 3.74L, Hemoglobin 11.3L, Hematocrit 33.4L , Mean Corpuscular Volume 89, Mean Corpuscular Hemoglobin 30.2, Mean Corpuscular Hemoglobin Concent 33.9, Red Cell Distribution Width 12.2, Platelet Count 145L, Mean Platelet Volume 8.1, Neutrophils (%) (Auto) 50.2, Lymphocytes ( %) (Auto) 38.2, Monocytes (%) (Auto) 8.3, Eosinophils (%) (Auto) 2.2, Basophils (%) (Auto) 1.1, Sodium Level 140, Potassium Level 4.1, Chloride Level 107, Carbon Dioxide Level 25, Anion Gap 8, Blood Urea Nitrogen 12, Creatinine 0.9, Estimat Glomerular Filtration Rate > 60, Glucose Level 177H, Calcium Level 8.4L , Total Bilirubin 0.4, Aspartate Amino Transf (AST/SGOT) 25, Alanine Aminotransferase (ALT/SGPT) 23, Alkaline Phosphatase 78, Total Protein 5.5L, Albumin 2.5L, Globulin 3.0, Albumin/Globulin Ratio 0.8L Height (Feet): 5 Height (Inches): 6.00 Weight (Pounds): 174 General Appearance: no apparent distress Objective no change Amandeep Shaw MD Dec 08, 2017 13:58
[2017-12-08] MEDS ORDERED: Lisinopril 2.5mg tab ORAL SCH (14:00)
--- NOTE | 2017-12-08 15:30 | Cardiology Progress Note ---
Assessment/Plan Assessment/Plan 1. NSTEMI , transfer to [facility] for heart cath, no ischemic changes on the ECG, CP free, no wall motion abnormalities on the Echo. Trop leak could be due to renal failure or other etiologies, continue ASA 81, atorvastatin 80 and B- blockers for double product control. 2. DKA 3. Anion gap acidosis Subjective Subjective Sinus rhythm at 80. Denies chest pain or SOB. Wants to go home. Objective Last 24 Hour Vital Signs Date Time Temp Pulse Resp B/P (MAP) Pulse Ox O2 Delivery O2 Flow Rate FiO2 12/08/17 14:26 144/77 12/08/17 12:00 77 12/08/17 11:34 97.9 76 18 144/77 (99) 96 97.9 12/08/17 08:28 133/75 12/08/17 08:13 90 133/75 12/08/17 08:00 86 12/08/17 07:50 98.3 90 18 133/75 (94) 98 98.3 12/08/17 04:00 98.2 90 18 138/69 (92) 96 98.2 12/08/17 04:00 Room Air 12/08/17 03:42 86 12/08/17 00:00 98.6 92 19 111/55 (73) 95 98.6 12/08/17 00:00 Room Air 12/07/17 23:48 90 12/07/17 21:05 90 147/81 12/07/17 20:00 99.7 90 22 147/81 (103) 98 99.7 12/07/17 20:00 Room Air 12/07/17 19:03 85 12/07/17 18:00 98.2 87 16 135/77 (96) 96 98.2 12/07/17 17:00 82 14 121/69 (86) 100 12/07/17 17:00 76 12/07/17 16:00 98.4 83 20 130/60 (83) 98 98.4 12/07/17 16:00 Room Air Intake and Output 12/07/17 12/08/17 19:00 07:00 Intake Total 1259.644 ml Output Total 725 ml Balance 534.644 ml Intake Oral 820 ml IV Total 439.644 ml Output Urine Total 725 ml # Bowel Movements 2 2D Echo: EF 55%, CASEY 1.1 cm2, RVSP 42 mmhg, Mod MR Laboratory Tests Test 12/08/17 09:50 White Blood Count 7.2 K/UL (4.8-10.8) Red Blood Count 3.74 M/UL (4.20-5.40) L Hemoglobin 11.3 G/DL (12.0-16.0) L Hematocrit 33.4 % (37.0-47.0) L Mean Corpuscular Volume 89 FL (80-99) Mean Corpuscular Hemoglobin 30.2 PG (27.0-31.0) Mean Corpuscular Hemoglobin Concent 33.9 G/DL (32.0-36.0) Red Cell Distribution Width 12.2 % (11.6-14.8) Platelet Count 145 K/UL (150-450) L Mean Platelet Volume 8.1 FL (6.5-10.1) Neutrophils (%) (Auto) 50.2 % (45.0-75.0) Lymphocytes (%) (Auto) 38.2 % (20.0-45.0) Monocytes (%) (Auto) 8.3 % (1.0-10.0) Eosinophils (%) (Auto) 2.2 % (0.0-3.0) Basophils (%) (Auto) 1.1 % (0.0-2.0) Sodium Level 140 MMOL/L (136-145) Potassium Level 4.1 MMOL/L (3.5-5.1) Chloride Level 107 MMOL/L (98-107) Carbon Dioxide Level 25 MMOL/L (21-32) Anion Gap 8 mmol/L (5-15) Blood Urea Nitrogen 12 mg/dL (7-18) Creatinine 0.9 MG/DL (0.55-1.30) Estimat Glomerular Filtration Rate > 60 mL/min (>60) Glucose Level 177 MG/DL (74-106) H Calcium Level 8.4 MG/DL (8.5-10.1) L Total Bilirubin 0.4 MG/DL (0.2-1.0) Aspartate Amino Transf (AST/SGOT) 25 U/L (15-37) Alanine Aminotransferase (ALT/SGPT) 23 U/L (12-78) Alkaline Phosphatase 78 U/L (46-116) C-Reactive Protein, Quantitative 2.1 mg/dL (0.00-0.90) H Total Protein 5.5 G/DL (6.4-8.2) L Albumin 2.5 G/DL (3.4-5.0) L Globulin 3.0 g/dL Albumin/Globulin Ratio 0.8 (1.0-2.7) L Microbiology Date/Time Source Procedure Growth Status 12/06/17 05:00 Straight Cath Urine Culture - Final NO GROWTH AFTER 48 HOURS Complete Objective HEENT: normocephalic, atraumatic bilateral eye normal inspection, bilateral eye PERRL Neck: No JVD, no carotid bruit Respiratory: chest non-tender, lungs clear, normal breath sounds, speaking full sentences Cardiovascular: regular rate, rhythm, normal S1S2, no murmurs, gallops or rubs. Gastrointestinal: normal bowel sounds, non tender, soft, non-distended, no guarding, no rebound Genitourinary: normal inspection, no CVA tenderness Musculoskeletal: no edema, clubbing or cyanosis. Bimal Mata MD Dec 08, 2017 15:30
[2017-12-08 16:00] VITALS: BP 138/66
[2017-12-08 20:00] VITALS: BP 119/72
[2017-12-08] MEDS: Atorvastatin 20mg tab ORAL SCH (20:31)
[2017-12-08] MEDS: Heparin 5000 units/ml inj SUBQ SCH (20:33)
[2017-12-09] VITALS: BP 104/64
[2017-12-09] MEDS: NovoLOG Insulin Flexpen SUBQ SCH ×6 (00:57→20:34)
[2017-12-09 04:00] VITALS: BP 101/56
[2017-12-09 05:49] LABS: BASOPHILS % (AUTO) 0.8 % (0.0-2.0); EOSINOPHILS % (AUTO) 3.1 % (0.0-3.0); HEMATOCRIT 30.2 % (37.0-47.0); HEMOGLOBIN 10.2 G/DL (12.0-16.0); LYMPHOCYTES % (AUTO) 42.9 % (20.0-45.0); MEAN CORPUSCULAR VOLUME 89 FL (80-99); MONOCYTES % (AUTO) 11.7 % (1.0-10.0); NEUTROPHILS % (AUTO) 41.5 % (45.0-75.0); PLATELET COUNT 129 K/UL (150-450); RED BLOOD COUNT 3.39 M/UL (4.20-5.40); RED CELL DISTRIBUTION WIDTH 11.8 % (11.6-14.8); WHITE BLOOD COUNT 7.6 K/UL (4.8-10.8)
[2017-12-09 06:05] LABS: ALANINE AMINOTRANSFERASE 22 U/L (12-78); ALBUMIN 2.5 G/DL (3.4-5.0); ALBUMIN/GLOBULIN RATIO 0.9 (1.0-2.7); ALKALINE PHOSPHATASE 69 U/L (46-116); ANION GAP 6 mmol/L (5-15); ASPARTATE AMINO TRANSFERASE 21 U/L (15-37); BILIRUBIN,TOTAL 0.4 MG/DL (0.2-1.0); BLOOD UREA NITROGEN 14 mg/dL (7-18); CALCIUM 8.5 MG/DL (8.5-10.1); CARBON DIOXIDE 29 MMOL/L (21-32); CHLORIDE 107 MMOL/L (98-107); CREATININE 0.8 MG/DL (0.55-1.30); PHOSPHORUS 3.3 MG/DL (2.5-4.9); POTASSIUM 3.9 MMOL/L (3.5-5.1); SODIUM 141 MMOL/L (136-145)
[2017-12-09 08:00] VITALS: BP 125/63
[2017-12-09] MEDS: Heparin 5000 units/ml inj SUBQ SCH ×2 (09:00→20:33)
[2017-12-09] MEDS: Docusate 100mg cap ORAL SCH ×3 (09:03→17:24)
[2017-12-09] MEDS: Nitroglycerin Patch 0.4mg TDERMAL SCH (09:03)
[2017-12-09] MEDS: Aspirin Baby 81mg ORAL SCH (09:04)
[2017-12-09] MEDS: Lisinopril 2.5mg tab ORAL SCH (09:05)
[2017-12-09] MEDS: Metoprolol 25mg tab ORAL SCH ×2 (09:05→20:32)
[2017-12-09] MEDS: Levemir Flexpen SUBQ SCH ×2 (09:09→20:34)
--- NOTE | 2017-12-09 10:28 | General Progress Note ---
Assessment/Plan Problem List: (1) Diabetes mellitus out of control ICD Codes: E11.65 - Type 2 diabetes mellitus with hyperglycemia SNOMED: 44398026, 517046403 (2) DKA (diabetic ketoacidoses) ICD Codes: E13.10 - Other specified diabetes mellitus with ketoacidosis without coma SNOMED: 659836673, 34757552 Qualifiers: Qualified Codes: E13.10 - Other specified diabetes mellitus with ketoacidosis without coma (3) High anion gap metabolic acidosis ICD Codes: E87.2 - Acidosis SNOMED: 39891094 (4) Renal insufficiency ICD Codes: N28.9 - Disorder of kidney and ureter, unspecified SNOMED: 188884635, 348360249 (5) Hyperkalemia ICD Codes: E87.5 - Hyperkalemia SNOMED: 29275889 (6) Leukocytosis ICD Codes: D72.829 - Elevated white blood cell count, unspecified SNOMED: 590964535, 667637288 Assessment/Plan continue Levemir 12 units bid change NISS every 4 hours to ac / hs add Starlix 60 mg ac tid Subjective Allergies: Coded Allergies: PENICILLINS (Verified Allergy, Unknown, 12/05/17) All Systems: reviewed and negative except above Subjective events noted - doing fine appetite is good Objective Last 24 Hour Vital Signs Date Time Temp Pulse Resp B/P (MAP) Pulse Ox O2 Delivery O2 Flow Rate FiO2 12/09/17 09:05 125/63 12/09/17 09:05 83 125/63 12/09/17 09:03 125/63 12/09/17 09:00 Room Air 12/09/17 08:00 98.2 83 20 125/63 (83) 98 98.2 12/09/17 08:00 82 12/09/17 04:00 98.4 75 20 101/56 (71) 98 98.4 12/09/17 04:00 70 12/09/17 00:00 80 12/09/17 00:00 98.8 83 20 104/64 (77) 93 98.8 12/08/17 21:00 Room Air 12/08/17 20:31 93 119/72 12/08/17 20:00 99.1 93 21 119/72 (88) 98 99.1 12/08/17 20:00 93 12/08/17 16:00 83 12/08/17 16:00 97.5 89 20 138/66 (90) 95 97.5 12/08/17 14:26 144/77 12/08/17 12:00 77 12/08/17 11:34 97.9 76 18 144/77 (99) 96 97.9 Intake and Output 12/08/17 12/09/17 19:00 07:00 Intake Total 360 ml 240 ml Output Total 400 ml 350 ml Balance -40 ml -110 ml Intake Oral 360 ml 240 ml Output Urine Total 400 ml 350 ml Laboratory Tests 12/09/17 05:40: White Blood Count 7.6, Red Blood Count 3.39L, Hemoglobin 10.2L, Hematocrit 30.2L , Mean Corpuscular Volume 89, Mean Corpuscular Hemoglobin 30.2, Mean Corpuscular Hemoglobin Concent 33.8, Red Cell Distribution Width 11.8, Platelet Count 129L, Mean Platelet Volume 7.2, Neutrophils (%) (Auto) 41.5L, Lymphocytes (%) (Auto) 42.9, Monocytes (%) (Auto) 11.7H, Eosinophils (%) (Auto) 3.1H, Basophils (%) (Auto) 0.8, Sodium Level 141, Potassium Level 3.9, Chloride Level 107, Carbon Dioxide Level 29, Anion Gap 6, Blood Urea Nitrogen 14, Creatinine 0.8, Estimat Glomerular Filtration Rate > 60, Glucose Level 82, Uric Acid 5.3, Calcium Level 8.5, Phosphorus Level 3.3, Magnesium Level 1.6L, Total Bilirubin 0.4, Aspartate Amino Transf (AST/SGOT) 21, Alanine Aminotransferase (ALT/SGPT) 22, Alkaline Phosphatase 69, Troponin I 0.145H, C-Reactive Protein, Quantitative 1.7H, Total Protein 5.3L, Albumin 2.5L, Globulin 2.8, Albumin/ Globulin Ratio 0.9L Height (Feet): 5 Height (Inches): 6.00 Weight (Pounds): 175 General Appearance: no apparent distress Neck: normal alignment Cardiovascular: normal rate Respiratory/Chest: lungs clear Abdomen: non tender Pelvis: normal external exam Edema: no edema noted Arm (L), no edema noted Arm (R), no edema noted Leg (L), no edema noted Leg (R), no edema noted Pedal (L), no edema noted Pedal (R), no edema noted Generalized Objective Current Medications Medications (Trade) Dose Ordered Sig/Enrike Route PRN Reason Start Time Stop Time Status Last Admin Dose Admin Aspirin (ASA) 81 mg DAILY ORAL 12/08/17 09:00 01/05/18 08:59 12/09/17 09:04 Atorvastatin Calcium (Lipitor) 40 mg BEDTIME ORAL 12/08/17 21:00 01/05/18 20:59 12/08/17 20:31 Dextrose (Dextrose 50%) 25 ml STAT PRN IV Hypoglycemia 12/07/17 19:00 01/06/18 18:59 Dextrose (Dextrose 50%) 50 ml STAT PRN IV Hypoglycemia 12/07/17 19:00 01/06/18 18:59 Docusate Sodium (Colace) 100 mg TID ORAL 12/08/17 18:00 01/05/18 08:59 12/09/17 09:03 Heparin Sodium (Porcine) (Heparin 5000 units/ml) 5,000 units EVERY 12 HOURS SUBQ 12/08/17 21:00 01/07/18 20:59 12/08/17 20:33 Insulin Aspart (NovoLOG) EVERY 4 HOURS SUBQ 12/07/17 21:00 01/05/18 08:59 12/09/17 09:08 Insulin Detemir (Levemir) 12 units Q12HR SUBQ 12/07/17 21:00 01/05/18 08:59 12/09/17 09:09 Lisinopril (Zestril) 2.5 mg DAILY ORAL 12/09/17 09:00 01/08/18 08:59 12/09/17 09:05 Metoprolol Tartrate (Lopressor) 25 mg Q12HR ORAL 12/07/17 21:00 01/05/18 20:59 12/09/17 09:05 Nitroglycerin (Ntg) 1 patch Q24H TDERMAL 12/08/17 09:00 01/05/18 08:59 12/09/17 09:03 Pantoprazole (Protonix) 40 mg DAILY ORAL 12/09/17 09:00 01/05/18 09:17 12/09/17 09:04 Quetiapine Fumarate (SEROquel) 25 mg Q6H PRN ORAL For Anxiety 12/07/17 19:00 01/04/18 18:59 Quetiapine Fumarate (SEROquel) 50 mg BEDTIME ORAL 12/07/17 21:00 01/04/18 20:59 12/08/17 20:31 Item Value Date Time Bedside Blood Glucose 191 mg/dl H 12/09/17 0909 Bedside Blood Glucose 79 mg/dl 12/09/17 0500 Bedside Blood Glucose 162 mg/dl H 12/09/17 0100 Bedside Blood Glucose 290 mg/dl H 12/08/172034 Mehdi Lopez MD Dec 09, 2017 10:28
--- NOTE | 2017-12-09 10:57 | Infectious Diseases Prog Note ---
Assessment/Plan Assessment/Plan A: SIRS improving DKA improving NSTE-NY Acute renal failure resolved Hyperkalemia, corrected P; Observe off antibiotic Subjective ROS Limited/Unobtainable: No Constitutional: Reports: no symptoms Gastrointestinal/Abdominal: Reports: no symptoms Genitourinary: Reports: no symptoms Neurologic: Reports: no symptoms Allergies: Coded Allergies: PENICILLINS (Verified Allergy, Unknown, 12/05/17) Objective Vital Signs Last 24 Hour Vital Signs Date Time Temp Pulse Resp B/P (MAP) Pulse Ox O2 Delivery O2 Flow Rate FiO2 12/09/17 09:05 125/63 12/09/17 09:05 83 125/63 12/09/17 09:03 125/63 12/09/17 09:00 Room Air 12/09/17 08:00 98.2 83 20 125/63 (83) 98 98.2 12/09/17 08:00 82 12/09/17 04:00 98.4 75 20 101/56 (71) 98 98.4 12/09/17 04:00 70 12/09/17 00:00 80 12/09/17 00:00 98.8 83 20 104/64 (77) 93 98.8 12/08/17 21:00 Room Air 12/08/17 20:31 93 119/72 12/08/17 20:00 99.1 93 21 119/72 (88) 98 99.1 12/08/17 20:00 93 12/08/17 16:00 83 12/08/17 16:00 97.5 89 20 138/66 (90) 95 97.5 12/08/17 14:26 144/77 12/08/17 12:00 77 12/08/17 11:34 97.9 76 18 144/77 (99) 96 97.9 Height (Feet): 5 Height (Inches): 6.00 Weight (Pounds): 175 General Appearance: no acute distress HEENT: mucous membranes moist Respiratory/Chest: lungs clear Cardiovascular: normal rate Abdomen: soft, non tender Extremities: no edema Neurologic/Psychiatric: alert, oriented x 3, responsive Laboratory Tests Test 12/09/17 05:40 White Blood Count 7.6 K/UL (4.8-10.8) Red Blood Count 3.39 M/UL (4.20-5.40) L Hemoglobin 10.2 G/DL (12.0-16.0) L Hematocrit 30.2 % (37.0-47.0) L Mean Corpuscular Volume 89 FL (80-99) Mean Corpuscular Hemoglobin 30.2 PG (27.0-31.0) Mean Corpuscular Hemoglobin Concent 33.8 G/DL (32.0-36.0) Red Cell Distribution Width 11.8 % (11.6-14.8) Platelet Count 129 K/UL (150-450) L Mean Platelet Volume 7.2 FL (6.5-10.1) Neutrophils (%) (Auto) 41.5 % (45.0-75.0) L Lymphocytes (%) (Auto) 42.9 % (20.0-45.0) Monocytes (%) (Auto) 11.7 % (1.0-10.0) H Eosinophils (%) (Auto) 3.1 % (0.0-3.0) H Basophils (%) (Auto) 0.8 % (0.0-2.0) Sodium Level 141 MMOL/L (136-145) Potassium Level 3.9 MMOL/L (3.5-5.1) Chloride Level 107 MMOL/L (98-107) Carbon Dioxide Level 29 MMOL/L (21-32) Anion Gap 6 mmol/L (5-15) Blood Urea Nitrogen 14 mg/dL (7-18) Creatinine 0.8 MG/DL (0.55-1.30) Estimat Glomerular Filtration Rate > 60 mL/min (>60) Glucose Level 82 MG/DL (74-106) Uric Acid 5.3 MG/DL (2.6-7.2) Calcium Level 8.5 MG/DL (8.5-10.1) Phosphorus Level 3.3 MG/DL (2.5-4.9) Magnesium Level 1.6 MG/DL (1.8-2.4) L Total Bilirubin 0.4 MG/DL (0.2-1.0) Aspartate Amino Transf (AST/SGOT) 21 U/L (15-37) Alanine Aminotransferase (ALT/SGPT) 22 U/L (12-78) Alkaline Phosphatase 69 U/L (46-116) Troponin I 0.145 ng/mL (0.000-0.056) C-Reactive Protein, Quantitative 1.7 mg/dL (0.00-0.90) H Total Protein 5.3 G/DL (6.4-8.2) L Albumin 2.5 G/DL (3.4-5.0) L Globulin 2.8 g/dL Albumin/Globulin Ratio 0.9 (1.0-2.7) L Current Medications Medications (Trade) Dose Ordered Sig/Enrike Route PRN Reason Start Time Stop Time Status Last Admin Dose Admin Aspirin (ASA) 81 mg DAILY ORAL 12/08/17 09:00 01/05/18 08:59 12/09/17 09:04 Atorvastatin Calcium (Lipitor) 40 mg BEDTIME ORAL 12/08/17 21:00 01/05/18 20:59 12/08/17 20:31 Dextrose (Dextrose 50%) 25 ml STAT PRN IV Hypoglycemia 12/07/17 19:00 01/06/18 18:59 Dextrose (Dextrose 50%) 50 ml STAT PRN IV Hypoglycemia 12/07/17 19:00 01/06/18 18:59 Docusate Sodium (Colace) 100 mg TID ORAL 12/08/17 18:00 01/05/18 08:59 12/09/17 09:03 Heparin Sodium (Porcine) (Heparin 5000 units/ml) 5,000 units EVERY 12 HOURS SUBQ 12/08/17 21:00 01/07/18 20:59 12/08/17 20:33 Insulin Aspart (NovoLOG) BEFORE MEALS AND HS SUBQ 12/09/17 11:30 01/05/18 08:59 UNV Insulin Detemir (Levemir) 12 units Q12HR SUBQ 12/07/17 21:00 01/05/18 08:59 12/09/17 09:09 Lisinopril (Zestril) 2.5 mg DAILY ORAL 12/09/17 09:00 01/08/18 08:59 12/09/17 09:05 Metoprolol Tartrate (Lopressor) 25 mg Q12HR ORAL 12/07/17 21:00 01/05/18 20:59 12/09/17 09:05 Nateglinide (Starlix) 60 mg TIAC ORAL 12/09/17 11:30 01/08/18 11:29 UNV Nitroglycerin (Ntg) 1 patch Q24H TDERMAL 12/08/17 09:00 01/05/18 08:59 12/09/17 09:03 Pantoprazole (Protonix) 40 mg DAILY ORAL 12/09/17 09:00 01/05/18 09:17 12/09/17 09:04 Quetiapine Fumarate (SEROquel) 25 mg Q6H PRN ORAL For Anxiety 12/07/17 19:00 01/04/18 18:59 Quetiapine Fumarate (SEROquel) 50 mg BEDTIME ORAL 12/07/17 21:00 01/04/18 20:59 12/08/17 20:31 Mike Dickinson MD Dec 09, 2017 10:57
[2017-12-09 12:00] VITALS: BP 132/71
[2017-12-09] MEDS: Nateglinide 60mg tab ORAL SCH ×2 (12:38→17:21)
--- NOTE | 2017-12-09 12:55 | Nephrology Progress Note ---
Assessment/Plan Problem List: (1) Acute on chronic renal failure Assessment: Cr normalized (2) Hyperkalemia Assessment: resolved (3) DKA (diabetic ketoacidoses) Assessment: resolved (4) Diabetes mellitus out of control (5) NSTEMI (non-ST elevated myocardial infarction) Assessment (1) DKA (diabetic ketoacidoses) (2) Leukocytosis ? undelrlying sepsis (3) Hyperkalemia, and acute renal failure, likely dehydration (4) High anion gap metabolic acidosis Plan asa, lopressor, nitrate K Phos as needed stop IV Fluid- Watch K and Phos , supplement as needed Insulin treatment Monitor lytes and renal parameters- 2D echo Left ventricular ejection fraction estimated to be 65-70 %. avoid nephrotoxics- Subjective ROS Limited/Unobtainable: No Constitutional: Reports: malaise Objective Objective Last 24 Hour Vital Signs Date Time Temp Pulse Resp B/P (MAP) Pulse Ox O2 Delivery O2 Flow Rate FiO2 12/09/17 09:05 125/63 12/09/17 09:05 83 125/63 12/09/17 09:03 125/63 12/09/17 09:00 Room Air 12/09/17 08:00 98.2 83 20 125/63 (83) 98 98.2 12/09/17 08:00 82 12/09/17 04:00 98.4 75 20 101/56 (71) 98 98.4 12/09/17 04:00 70 12/09/17 00:00 80 12/09/17 00:00 98.8 83 20 104/64 (77) 93 98.8 12/08/17 21:00 Room Air 12/08/17 20:31 93 119/72 12/08/17 20:00 99.1 93 21 119/72 (88) 98 99.1 12/08/17 20:00 93 12/08/17 16:00 83 12/08/17 16:00 97.5 89 20 138/66 (90) 95 97.5 12/08/17 14:26 144/77 Intake and Output 12/08/17 12/09/17 19:00 07:00 Intake Total 360 ml 240 ml Output Total 400 ml 350 ml Balance -40 ml -110 ml Intake Oral 360 ml 240 ml Output Urine Total 400 ml 350 ml Laboratory Tests 12/09/17 05:40: White Blood Count 7.6, Red Blood Count 3.39L, Hemoglobin 10.2L, Hematocrit 30.2L , Mean Corpuscular Volume 89, Mean Corpuscular Hemoglobin 30.2, Mean Corpuscular Hemoglobin Concent 33.8, Red Cell Distribution Width 11.8, Platelet Count 129L, Mean Platelet Volume 7.2, Neutrophils (%) (Auto) 41.5L, Lymphocytes (%) (Auto) 42.9, Monocytes (%) (Auto) 11.7H, Eosinophils (%) (Auto) 3.1H, Basophils (%) (Auto) 0.8, Sodium Level 141, Potassium Level 3.9, Chloride Level 107, Carbon Dioxide Level 29, Anion Gap 6, Blood Urea Nitrogen 14, Creatinine 0.8, Estimat Glomerular Filtration Rate > 60, Glucose Level 82, Uric Acid 5.3, Calcium Level 8.5, Phosphorus Level 3.3, Magnesium Level 1.6L, Total Bilirubin 0.4, Aspartate Amino Transf (AST/SGOT) 21, Alanine Aminotransferase (ALT/SGPT) 22, Alkaline Phosphatase 69, Troponin I 0.145H, C-Reactive Protein, Quantitative 1.7H, Total Protein 5.3L, Albumin 2.5L, Globulin 2.8, Albumin/ Globulin Ratio 0.9L Height (Feet): 5 Height (Inches): 6.00 Weight (Pounds): 175 General Appearance: no apparent distress Respiratory/Chest: lungs clear Abdomen: soft Objective no change Amandeep Shaw MD Dec 09, 2017 12:55
--- NOTE | 2017-12-09 14:28 | Pulmonology Progress Note ---
Assessment/Plan Problems: (1) DKA (diabetic ketoacidoses) Assessment & Plan: RESOLVED (2) High anion gap metabolic acidosis Assessment & Plan: RESOLVED (3) Diabetes mellitus out of control Assessment & Plan: BETTER (4) Leukocytosis Assessment & Plan: RESOLVED (5) Acute on chronic renal failure Assessment & Plan: RESOLVED (6) NSTEMI (non-ST elevated myocardial infarction) Assessment & Plan: TROPS DOWNTRENDING, TTE without WMA Assessment/Plan -Optimize pulmonary hygiene/mobilize as tolerated -PRN O2 -Glycemic control per ENDO -Continue ASA, statin, BB -F/U cards recs Re: ischemia eval, ? transfer to OSH vs non-invasive testing here -DVT Px: Hep SQ -Aspiration precautions Subjective Allergies: Coded Allergies: PENICILLINS (Verified Allergy, Unknown, 12/05/17) Subjective NAVIN, AFVSS, stable on RA BS well controlled, no F/C/CP/SOB Objective Last 24 Hour Vital Signs Date Time Temp Pulse Resp B/P (MAP) Pulse Ox O2 Delivery O2 Flow Rate FiO2 12/09/17 12:00 98.6 86 20 132/71 (91) 98 98.6 12/09/17 09:05 125/63 12/09/17 09:05 83 125/63 12/09/17 09:03 125/63 12/09/17 09:00 Room Air 12/09/17 08:00 98.2 83 20 125/63 (83) 98 98.2 12/09/17 08:00 82 12/09/17 04:00 98.4 75 20 101/56 (71) 98 98.4 12/09/17 04:00 70 12/09/17 00:00 80 12/09/17 00:00 98.8 83 20 104/64 (77) 93 98.8 12/08/17 21:00 Room Air 12/08/17 20:31 93 119/72 12/08/17 20:00 99.1 93 21 119/72 (88) 98 99.1 12/08/17 20:00 93 12/08/17 16:00 83 12/08/17 16:00 97.5 89 20 138/66 (90) 95 97.5 Intake and Output 12/08/17 12/09/17 19:00 07:00 Intake Total 360 ml 240 ml Output Total 400 ml 350 ml Balance -40 ml -110 ml Intake Oral 360 ml 240 ml Output Urine Total 400 ml 350 ml General Appearance: WD/WN, no acute distress HEENT: normocephalic, atraumatic, anicteric, mucous membranes moist Respiratory/Chest: chest wall non-tender, lungs clear, normal breath sounds, no respiratory distress, no accessory muscle use Cardiovascular: normal peripheral pulses, normal rate, regular rhythm Abdomen: normal bowel sounds, soft, non tender, no organomegaly, non distended , no mass Extremities: no cyanosis, no clubbing, no edema Laboratory Tests 12/09/17 05:40: White Blood Count 7.6, Red Blood Count 3.39L, Hemoglobin 10.2L, Hematocrit 30.2L , Mean Corpuscular Volume 89, Mean Corpuscular Hemoglobin 30.2, Mean Corpuscular Hemoglobin Concent 33.8, Red Cell Distribution Width 11.8, Platelet Count 129L, Mean Platelet Volume 7.2, Neutrophils (%) (Auto) 41.5L, Lymphocytes (%) (Auto) 42.9, Monocytes (%) (Auto) 11.7H, Eosinophils (%) (Auto) 3.1H, Basophils (%) (Auto) 0.8, Sodium Level 141, Potassium Level 3.9, Chloride Level 107, Carbon Dioxide Level 29, Anion Gap 6, Blood Urea Nitrogen 14, Creatinine 0.8, Estimat Glomerular Filtration Rate > 60, Glucose Level 82, Uric Acid 5.3, Calcium Level 8.5, Phosphorus Level 3.3, Magnesium Level 1.6L, Total Bilirubin 0.4, Aspartate Amino Transf (AST/SGOT) 21, Alanine Aminotransferase (ALT/SGPT) 22, Alkaline Phosphatase 69, Troponin I 0.145H, C-Reactive Protein, Quantitative 1.7H, Total Protein 5.3L, Albumin 2.5L, Globulin 2.8, Albumin/ Globulin Ratio 0.9L Current Medications Medications (Trade) Dose Ordered Sig/Enrike Route PRN Reason Start Time Stop Time Status Last Admin Dose Admin Aspirin (ASA) 81 mg DAILY ORAL 12/08/17 09:00 01/05/18 08:59 12/09/17 09:04 Atorvastatin Calcium (Lipitor) 40 mg BEDTIME ORAL 12/08/17 21:00 01/05/18 20:59 12/08/17 20:31 Dextrose (Dextrose 50%) 25 ml STAT PRN IV Hypoglycemia 12/07/17 19:00 01/06/18 18:59 Dextrose (Dextrose 50%) 50 ml STAT PRN IV Hypoglycemia 12/07/17 19:00 01/06/18 18:59 Docusate Sodium (Colace) 100 mg TID ORAL 12/08/17 18:00 01/05/18 08:59 12/09/17 09:03 Heparin Sodium (Porcine) (Heparin 5000 units/ml) 5,000 units EVERY 12 HOURS SUBQ 12/08/17 21:00 01/07/18 20:59 12/08/17 20:33 Insulin Aspart (NovoLOG) BEFORE MEALS AND HS SUBQ 12/09/17 11:30 01/05/18 08:59 12/09/17 12:37 Insulin Detemir (Levemir) 12 units Q12HR SUBQ 12/07/17 21:00 01/05/18 08:59 12/09/17 09:09 Lisinopril (Zestril) 2.5 mg DAILY ORAL 12/09/17 09:00 01/08/18 08:59 12/09/17 09:05 Metoprolol Tartrate (Lopressor) 25 mg Q12HR ORAL 12/07/17 21:00 01/05/18 20:59 12/09/17 09:05 Nateglinide (Starlix) 60 mg TIAC ORAL 12/09/17 11:30 01/08/18 11:29 12/09/17 12:38 Nitroglycerin (Ntg) 1 patch Q24H TDERMAL 12/08/17 09:00 01/05/18 08:59 12/09/17 09:03 Pantoprazole (Protonix) 40 mg DAILY ORAL 12/09/17 09:00 01/05/18 09:17 12/09/17 09:04 Quetiapine Fumarate (SEROquel) 25 mg Q6H PRN ORAL For Anxiety 12/07/17 19:00 01/04/18 18:59 Quetiapine Fumarate (SEROquel) 50 mg BEDTIME ORAL 12/07/17 21:00 01/04/18 20:59 12/08/17 20:31 James Ellis MD Dec 09, 2017 14:28
[2017-12-09 16:00] VITALS: BP 122/57
--- NOTE | 2017-12-09 16:09 | General Progress Note ---
Assessment/Plan Status: stable Assessment/Plan 1. Leukocytosis likely secondary to underlying diabetic ketoacidosis, rule out underlying infection. --> Chest x-ray: No acute process; urinalysis ++ --> Obtain peripheral smear. --> WBC normalized. 2. Anemia due to underlying chronic disease. --> Continue to closely monitor for improvement. --> Anemia w/u has been reviewed. Will trend cbc daily. --> Hgb goal >7 3. Hyperkalemia. given Kayexalate. 4. Diabetic ketoacidosis. She has been seen by Pulmonary team, Dr. Ellis. 5. High anion gap acidosis. To be seen by primary team. --> Gap is closing. On insulin sliding scale. 6. Shortness of breath likely, due to underlying diabetic ketoacidosis. The time the note was entered does not necessarily correspond to the time the patient was seen. Subjective Date patient seen: Dec 09, 2017 ROS Limited/Unobtainable: Yes Hematologic/Lymphatic: Reports: anemia Allergies: Coded Allergies: PENICILLINS (Verified Allergy, Unknown, 12/05/17) All Systems: reviewed and negative except above Subjective Pt awake and confused. No acute events. H/H stable. Awaiting transfer to [facility]. Objective Last 24 Hour Vital Signs Date Time Temp Pulse Resp B/P (MAP) Pulse Ox O2 Delivery O2 Flow Rate FiO2 12/09/17 12:00 84 12/09/17 12:00 98.6 86 20 132/71 (91) 98 98.6 12/09/17 09:05 125/63 12/09/17 09:05 83 125/63 12/09/17 09:03 125/63 12/09/17 09:00 Room Air 12/09/17 08:00 98.2 83 20 125/63 (83) 98 98.2 12/09/17 08:00 82 12/09/17 04:00 98.4 75 20 101/56 (71) 98 98.4 12/09/17 04:00 70 12/09/17 00:00 80 12/09/17 00:00 98.8 83 20 104/64 (77) 93 98.8 12/08/17 21:00 Room Air 12/08/17 20:31 93 119/72 12/08/17 20:00 99.1 93 21 119/72 (88) 98 99.1 12/08/17 20:00 93 Intake and Output 12/08/17 12/09/17 19:00 07:00 Intake Total 360 ml 240 ml Output Total 400 ml 350 ml Balance -40 ml -110 ml Intake Oral 360 ml 240 ml Output Urine Total 400 ml 350 ml Laboratory Tests 12/09/17 05:40: White Blood Count 7.6, Red Blood Count 3.39L, Hemoglobin 10.2L, Hematocrit 30.2L , Mean Corpuscular Volume 89, Mean Corpuscular Hemoglobin 30.2, Mean Corpuscular Hemoglobin Concent 33.8, Red Cell Distribution Width 11.8, Platelet Count 129L, Mean Platelet Volume 7.2, Neutrophils (%) (Auto) 41.5L, Lymphocytes (%) (Auto) 42.9, Monocytes (%) (Auto) 11.7H, Eosinophils (%) (Auto) 3.1H, Basophils (%) (Auto) 0.8, Sodium Level 141, Potassium Level 3.9, Chloride Level 107, Carbon Dioxide Level 29, Anion Gap 6, Blood Urea Nitrogen 14, Creatinine 0.8, Estimat Glomerular Filtration Rate > 60, Glucose Level 82, Uric Acid 5.3, Calcium Level 8.5, Phosphorus Level 3.3, Magnesium Level 1.6L, Total Bilirubin 0.4, Aspartate Amino Transf (AST/SGOT) 21, Alanine Aminotransferase (ALT/SGPT) 22, Alkaline Phosphatase 69, Troponin I 0.145H, C-Reactive Protein, Quantitative 1.7H, Total Protein 5.3L, Albumin 2.5L, Globulin 2.8, Albumin/ Globulin Ratio 0.9L Height (Feet): 5 Height (Inches): 6.00 Weight (Pounds): 175 General Appearance: no apparent distress, alert EENT: PERRL/EOMI Neck: normal alignment Cardiovascular: normal peripheral pulses Respiratory/Chest: no respiratory distress Abdomen: soft David De Jesus MD Dec 09, 2017 16:09
[2017-12-09 20:00] VITALS: BP 136/71
[2017-12-09] MEDS: Atorvastatin 20mg tab ORAL SCH (20:32)
--- NOTE | 2017-12-09 23:00 | Cardiology Progress Note ---
Assessment/Plan Assessment/Plan 1. NSTEMI , awaiting transfer to an outside facility for heart cath, continue ASA 81, atorvastatin 80 and B-blockers for double product control. Currently chest pain free. 2. DKA 3. Anion gap acidosis, resolved. 4. Hypomagnesemia, correct with Mg sulfate 2grams IVPB. 5. Anemia Subjective Subjective Sinus rhythm at 91. Denies chest pain or SOB. Awaiting transfer to an outside facility for heart cath. Objective Last 24 Hour Vital Signs Date Time Temp Pulse Resp B/P (MAP) Pulse Ox O2 Delivery O2 Flow Rate FiO2 12/09/17 21:00 Room Air 12/09/17 20:32 91 136/71 12/09/17 20:00 99.5 91 19 136/71 (92) 95 99.5 12/09/17 19:57 102 12/09/17 16:00 89 12/09/17 16:00 98.8 91 18 122/57 (78) 98 98.8 12/09/17 12:00 84 12/09/17 12:00 98.6 86 20 132/71 (91) 98 98.6 12/09/17 09:05 125/63 12/09/17 09:05 83 125/63 12/09/17 09:03 125/63 12/09/17 09:00 Room Air 12/09/17 08:00 98.2 83 20 125/63 (83) 98 98.2 12/09/17 08:00 82 12/09/17 04:00 98.4 75 20 101/56 (71) 98 98.4 12/09/17 04:00 70 12/09/17 00:00 80 12/09/17 00:00 98.8 83 20 104/64 (77) 93 98.8 Intake and Output 12/08/17 12/09/17 19:00 07:00 Intake Total 360 ml 240 ml Output Total 400 ml 350 ml Balance -40 ml -110 ml Intake Oral 360 ml 240 ml Output Urine Total 400 ml 350 ml 2D Echo: EF 55%, CASEY 1.1 cm2, RVSP 42 mmhg, Mod MR Laboratory Tests Test 12/09/17 05:40 White Blood Count 7.6 K/UL (4.8-10.8) Red Blood Count 3.39 M/UL (4.20-5.40) L Hemoglobin 10.2 G/DL (12.0-16.0) L Hematocrit 30.2 % (37.0-47.0) L Mean Corpuscular Volume 89 FL (80-99) Mean Corpuscular Hemoglobin 30.2 PG (27.0-31.0) Mean Corpuscular Hemoglobin Concent 33.8 G/DL (32.0-36.0) Red Cell Distribution Width 11.8 % (11.6-14.8) Platelet Count 129 K/UL (150-450) L Mean Platelet Volume 7.2 FL (6.5-10.1) Neutrophils (%) (Auto) 41.5 % (45.0-75.0) L Lymphocytes (%) (Auto) 42.9 % (20.0-45.0) Monocytes (%) (Auto) 11.7 % (1.0-10.0) H Eosinophils (%) (Auto) 3.1 % (0.0-3.0) H Basophils (%) (Auto) 0.8 % (0.0-2.0) Sodium Level 141 MMOL/L (136-145) Potassium Level 3.9 MMOL/L (3.5-5.1) Chloride Level 107 MMOL/L (98-107) Carbon Dioxide Level 29 MMOL/L (21-32) Anion Gap 6 mmol/L (5-15) Blood Urea Nitrogen 14 mg/dL (7-18) Creatinine 0.8 MG/DL (0.55-1.30) Estimat Glomerular Filtration Rate > 60 mL/min (>60) Glucose Level 82 MG/DL (74-106) Uric Acid 5.3 MG/DL (2.6-7.2) Calcium Level 8.5 MG/DL (8.5-10.1) Phosphorus Level 3.3 MG/DL (2.5-4.9) Magnesium Level 1.6 MG/DL (1.8-2.4) L Total Bilirubin 0.4 MG/DL (0.2-1.0) Aspartate Amino Transf (AST/SGOT) 21 U/L (15-37) Alanine Aminotransferase (ALT/SGPT) 22 U/L (12-78) Alkaline Phosphatase 69 U/L (46-116) Troponin I 0.145 ng/mL (0.000-0.056) C-Reactive Protein, Quantitative 1.7 mg/dL (0.00-0.90) H Total Protein 5.3 G/DL (6.4-8.2) L Albumin 2.5 G/DL (3.4-5.0) L Globulin 2.8 g/dL Albumin/Globulin Ratio 0.9 (1.0-2.7) L Objective HEENT: normocephalic, atraumatic bilateral eye normal inspection, bilateral eye PERRL Neck: No JVD, no carotid bruit Respiratory: chest non-tender, lungs clear, normal breath sounds, speaking full sentences Cardiovascular: regular rate, rhythm, normal S1S2, no murmurs, gallops or rubs. Gastrointestinal: normal bowel sounds, non tender, soft, non-distended, no guarding, no rebound Genitourinary: normal inspection, no CVA tenderness Musculoskeletal: no edema, clubbing or cyanosis. Bimal Mata MD Dec 09, 2017 23:00
[2017-12-10] VITALS: BP 101/51
[2017-12-10 04:00] VITALS: BP 99/51
[2017-12-10] MEDS: Nateglinide 60mg tab ORAL SCH ×3 (06:12→16:11)
[2017-12-10] MEDS: NovoLOG Insulin Flexpen SUBQ SCH ×4 (06:30→21:00)
--- NOTE | 2017-12-10 07:08 | General Progress Note ---
Assessment/Plan Problem List: (1) Diabetes mellitus out of control ICD Codes: E11.65 - Type 2 diabetes mellitus with hyperglycemia SNOMED: 85792763, 917123481 (2) DKA (diabetic ketoacidoses) ICD Codes: E13.10 - Other specified diabetes mellitus with ketoacidosis without coma SNOMED: 539967478, 48566329 Qualifiers: Qualified Codes: E13.10 - Other specified diabetes mellitus with ketoacidosis without coma (3) High anion gap metabolic acidosis ICD Codes: E87.2 - Acidosis SNOMED: 69877436 (4) Renal insufficiency ICD Codes: N28.9 - Disorder of kidney and ureter, unspecified SNOMED: 202673842, 932892604 (5) Hyperkalemia ICD Codes: E87.5 - Hyperkalemia SNOMED: 75233015 (6) Leukocytosis ICD Codes: D72.829 - Elevated white blood cell count, unspecified SNOMED: 681119065, 388342957 Assessment/Plan reduce Levemir to 10 units bid continue NISS ac / hs continue Starlix 60 mg ac tid Subjective Allergies: Coded Allergies: PENICILLINS (Verified Allergy, Unknown, 12/05/17) All Systems: reviewed and negative except above Subjective events noted - doing fine waiting for transfer for cardiac cath Objective Last 24 Hour Vital Signs Date Time Temp Pulse Resp B/P (MAP) Pulse Ox O2 Delivery O2 Flow Rate FiO2 12/10/17 04:00 97.8 73 18 99/51 (67) 97 97.8 12/10/17 04:00 78 12/10/17 00:00 99.2 78 19 101/51 (68) 96 99.2 12/10/17 00:00 74 12/09/17 21:00 Room Air 12/09/17 20:32 91 136/71 12/09/17 20:00 99.5 91 19 136/71 (92) 95 99.5 12/09/17 19:57 102 12/09/17 16:00 89 12/09/17 16:00 98.8 91 18 122/57 (78) 98 98.8 12/09/17 12:00 84 12/09/17 12:00 98.6 86 20 132/71 (91) 98 98.6 12/09/17 09:05 125/63 12/09/17 09:05 83 125/63 12/09/17 09:03 125/63 12/09/17 09:00 Room Air 12/09/17 08:00 98.2 83 20 125/63 (83) 98 98.2 12/09/17 08:00 82 Intake and Output 12/09/17 12/10/17 19:00 07:00 Intake Total 480 ml Balance 480 ml Intake Oral 480 ml # Voids 3 2 Height (Feet): 5 Height (Inches): 6.00 Weight (Pounds): 174 General Appearance: no apparent distress Neck: normal alignment Cardiovascular: normal rate Respiratory/Chest: lungs clear Abdomen: normal bowel sounds Pelvis: normal external exam Objective Current Medications Medications (Trade) Dose Ordered Sig/Enrike Route PRN Reason Start Time Stop Time Status Last Admin Dose Admin Aspirin (ASA) 81 mg DAILY ORAL 12/08/17 09:00 01/05/18 08:59 12/09/17 09:04 Atorvastatin Calcium (Lipitor) 80 mg BEDTIME ORAL 12/10/17 21:00 01/09/18 20:59 Dextrose (Dextrose 50%) 25 ml STAT PRN IV Hypoglycemia 12/07/17 19:00 01/06/18 18:59 Dextrose (Dextrose 50%) 50 ml STAT PRN IV Hypoglycemia 12/07/17 19:00 01/06/18 18:59 Docusate Sodium (Colace) 100 mg TID ORAL 12/08/17 18:00 01/05/18 08:59 12/09/17 17:24 Heparin Sodium (Porcine) (Heparin 5000 units/ml) 5,000 units EVERY 12 HOURS SUBQ 12/08/17 21:00 01/07/18 20:59 12/09/17 20:33 Insulin Aspart (NovoLOG) BEFORE MEALS AND HS SUBQ 12/09/17 11:30 01/05/18 08:59 12/09/17 20:34 Insulin Detemir (Levemir) 12 units Q12HR SUBQ 12/07/17 21:00 01/05/18 08:59 12/09/17 20:34 Lisinopril (Zestril) 2.5 mg DAILY ORAL 12/09/17 09:00 01/08/18 08:59 12/09/17 09:05 Metoprolol Tartrate (Lopressor) 50 mg Q12HR ORAL 12/10/17 09:00 01/09/18 08:59 Nateglinide (Starlix) 60 mg TIAC ORAL 12/09/17 11:30 01/08/18 11:29 12/10/17 06:12 Nitroglycerin (Ntg) 1 patch Q24H TDERMAL 12/08/17 09:00 01/05/18 08:59 12/09/17 09:03 Pantoprazole (Protonix) 40 mg DAILY ORAL 12/09/17 09:00 01/05/18 09:17 12/09/17 09:04 Quetiapine Fumarate (SEROquel) 25 mg Q6H PRN ORAL For Anxiety 12/07/17 19:00 01/04/18 18:59 Quetiapine Fumarate (SEROquel) 50 mg BEDTIME ORAL 12/07/17 21:00 01/04/18 20:59 12/09/17 20:32 Item Value Date Time Bedside Blood Glucose 83 mg/dl 12/10/17 0630 Bedside Blood Glucose 169 mg/dl H 12/09/17 2100 Bedside Blood Glucose 181 mg/dl H 12/09/17 1723 Bedside Blood Glucose 163 mg/dl H 12/09/17 1237 Bedside Blood Glucose 191 mg/dl H 12/09/17 0909 Bedside Blood Glucose 79 mg/dl 12/09/17 0500 Mehdi Lopez MD Dec 10, 2017 07:08
[2017-12-10 08:00] VITALS: BP 120/57
[2017-12-10] MEDS: Lisinopril 2.5mg tab ORAL SCH (09:00)
[2017-12-10] MEDS: Metoprolol 25mg tab ORAL SCH ×2 (09:00→21:28)
[2017-12-10] MEDS: Heparin 5000 units/ml inj SUBQ SCH ×2 (09:00→21:00)
[2017-12-10] MEDS: Docusate 100mg cap ORAL SCH ×3 (09:06→17:06)
[2017-12-10] MEDS: Aspirin Baby 81mg ORAL SCH (09:06)
[2017-12-10] MEDS: Nitroglycerin Patch 0.4mg TDERMAL SCH (09:07)
[2017-12-10] MEDS: Levemir Flexpen SUBQ SCH ×2 (09:13→21:00)
--- NOTE | 2017-12-10 09:41 | Nephrology Progress Note ---
Assessment/Plan Problem List: (1) Acute on chronic renal failure Assessment: Cr normalized (2) Hyperkalemia Assessment: resolved (3) DKA (diabetic ketoacidoses) Assessment: resolved (4) Diabetes mellitus out of control (5) NSTEMI (non-ST elevated myocardial infarction) Assessment: Troponin I normalized as of December 10 Assessment (1) DKA (diabetic ketoacidoses) (2) Leukocytosis ? undelrlying sepsis (3) Hyperkalemia, and acute renal failure, likely dehydration (4) High anion gap metabolic acidosis Plan asa, lopressor, nitrate K Phos as needed stop IV Fluid- Watch K and Phos , supplement as needed Insulin treatment Monitor lytes and renal parameters- 2D echo Left ventricular ejection fraction estimated to be 65-70 %. avoid nephrotoxics- per cardio Subjective ROS Limited/Unobtainable: No Constitutional: Reports: malaise Objective Objective Last 24 Hour Vital Signs Date Time Temp Pulse Resp B/P (MAP) Pulse Ox O2 Delivery O2 Flow Rate FiO2 12/10/17 09:07 120/57 12/10/17 09:00 64 120/57 12/10/17 09:00 120/57 12/10/17 09:00 Room Air 12/10/17 08:00 98.3 64 18 120/57 (78) 97 98.3 12/10/17 04:00 97.8 73 18 99/51 (67) 97 97.8 12/10/17 04:00 78 12/10/17 00:00 99.2 78 19 101/51 (68) 96 99.2 12/10/17 00:00 74 12/09/17 21:00 Room Air 12/09/17 20:32 91 136/71 12/09/17 20:00 99.5 91 19 136/71 (92) 95 99.5 12/09/17 19:57 102 12/09/17 16:00 89 12/09/17 16:00 98.8 91 18 122/57 (78) 98 98.8 12/09/17 12:00 84 12/09/17 12:00 98.6 86 20 132/71 (91) 98 98.6 Intake and Output 12/09/17 12/10/17 19:00 07:00 Intake Total 480 ml Balance 480 ml Intake Oral 480 ml # Voids 3 2 Height (Feet): 5 Height (Inches): 6.00 Weight (Pounds): 174 General Appearance: no apparent distress Neck: non-tender Cardiovascular: normal rate Abdomen: soft Objective no change Amandeep Shaw MD Dec 10, 2017 09:41
--- NOTE | 2017-12-10 11:10 | General Progress Note ---
Assessment/Plan Status: stable, progressing Assessment/Plan encephalopathy Agitation -seroquel 25mg q 6hr/prn/agitation -haldol prn Subjective Date patient seen: Dec 10, 2017 Allergies: Coded Allergies: PENICILLINS (Verified Allergy, Unknown, 12/05/17) Subjective the pt has episodes of anxiety Objective Last 24 Hour Vital Signs Date Time Temp Pulse Resp B/P (MAP) Pulse Ox O2 Delivery O2 Flow Rate FiO2 12/10/17 09:07 120/57 12/10/17 09:00 64 120/57 12/10/17 09:00 120/57 12/10/17 09:00 Room Air 12/10/17 08:00 98.3 64 18 120/57 (78) 97 98.3 12/10/17 08:00 88 12/10/17 04:00 97.8 73 18 99/51 (67) 97 97.8 12/10/17 04:00 78 12/10/17 00:00 99.2 78 19 101/51 (68) 96 99.2 12/10/17 00:00 74 12/09/17 21:00 Room Air 12/09/17 20:32 91 136/71 12/09/17 20:00 99.5 91 19 136/71 (92) 95 99.5 12/09/17 19:57 102 12/09/17 16:00 89 12/09/17 16:00 98.8 91 18 122/57 (78) 98 98.8 12/09/17 12:00 84 12/09/17 12:00 98.6 86 20 132/71 (91) 98 98.6 Intake and Output 12/09/17 12/10/17 19:00 07:00 Intake Total 480 ml Balance 480 ml Intake Oral 480 ml # Voids 3 2 Laboratory Tests 12/10/17 10:10: Troponin I [Pending] Height (Feet): 5 Height (Inches): 6.00 Weight (Pounds): 174 Jeanette Jerez MD Dec 10, 2017 11:10
[2017-12-10 12:00] VITALS: BP 117/59
--- NOTE | 2017-12-10 13:24 | Infectious Diseases Prog Note ---
Assessment/Plan Assessment/Plan A: SIRS improving DKA improving NSTE-DE Acute renal failure resolved Hyperkalemia, corrected P; Observe off antibiotic Subjective ROS Limited/Unobtainable: No Constitutional: Reports: no symptoms Respiratory: Reports: no symptoms Cardiovascular: Reports: no symptoms Gastrointestinal/Abdominal: Reports: no symptoms Genitourinary: Reports: no symptoms Allergies: Coded Allergies: PENICILLINS (Verified Allergy, Unknown, 12/05/17) Objective Vital Signs Last 24 Hour Vital Signs Date Time Temp Pulse Resp B/P (MAP) Pulse Ox O2 Delivery O2 Flow Rate FiO2 12/10/17 12:00 97.9 67 18 117/59 (78) 97 97.9 12/10/17 12:00 83 12/10/17 09:07 120/57 12/10/17 09:00 64 120/57 12/10/17 09:00 120/57 12/10/17 09:00 Room Air 12/10/17 08:00 98.3 64 18 120/57 (78) 97 98.3 12/10/17 08:00 88 12/10/17 04:00 97.8 73 18 99/51 (67) 97 97.8 12/10/17 04:00 78 12/10/17 00:00 99.2 78 19 101/51 (68) 96 99.2 12/10/17 00:00 74 12/09/17 21:00 Room Air 12/09/17 20:32 91 136/71 12/09/17 20:00 99.5 91 19 136/71 (92) 95 99.5 12/09/17 19:57 102 12/09/17 16:00 89 12/09/17 16:00 98.8 91 18 122/57 (78) 98 98.8 Height (Feet): 5 Height (Inches): 6.00 Weight (Pounds): 174 General Appearance: no acute distress HEENT: mucous membranes moist Respiratory/Chest: lungs clear Cardiovascular: normal rate Abdomen: soft, non tender Extremities: other - mild edema of legs Neurologic/Psychiatric: alert, oriented x 3, responsive Laboratory Tests Test 12/10/17 10:10 Troponin I 0.052 ng/mL (0.000-0.056) Current Medications Medications (Trade) Dose Ordered Sig/Enrike Route PRN Reason Start Time Stop Time Status Last Admin Dose Admin Aspirin (ASA) 81 mg DAILY ORAL 12/08/17 09:00 01/05/18 08:59 12/10/17 09:06 Atorvastatin Calcium (Lipitor) 80 mg BEDTIME ORAL 12/10/17 21:00 01/09/18 20:59 Dextrose (Dextrose 50%) 25 ml STAT PRN IV Hypoglycemia 12/07/17 19:00 01/06/18 18:59 Dextrose (Dextrose 50%) 50 ml STAT PRN IV Hypoglycemia 12/07/17 19:00 01/06/18 18:59 Docusate Sodium (Colace) 100 mg TID ORAL 12/08/17 18:00 01/05/18 08:59 12/10/17 12:00 Heparin Sodium (Porcine) (Heparin 5000 units/ml) 5,000 units EVERY 12 HOURS SUBQ 12/08/17 21:00 01/07/18 20:59 12/09/17 20:33 Insulin Aspart (NovoLOG) BEFORE MEALS AND HS SUBQ 12/09/17 11:30 01/05/18 08:59 12/10/17 11:58 Insulin Detemir (Levemir) 10 units Q12HR SUBQ 12/10/17 09:00 01/05/18 08:59 12/10/17 09:13 Lisinopril (Zestril) 2.5 mg DAILY ORAL 12/09/17 09:00 01/08/18 08:59 12/09/17 09:05 Metoprolol Tartrate (Lopressor) 50 mg Q12HR ORAL 12/10/17 09:00 01/09/18 08:59 Nateglinide (Starlix) 60 mg TIAC ORAL 12/09/17 11:30 01/08/18 11:29 12/10/17 12:00 Nitroglycerin (Ntg) 1 patch Q24H TDERMAL 12/08/17 09:00 01/05/18 08:59 12/10/17 09:07 Pantoprazole (Protonix) 40 mg DAILY ORAL 12/09/17 09:00 01/05/18 09:17 12/10/17 09:06 Quetiapine Fumarate (SEROquel) 25 mg Q6H PRN ORAL For Anxiety 12/07/17 19:00 01/04/18 18:59 Quetiapine Fumarate (SEROquel) 50 mg BEDTIME ORAL 12/07/17 21:00 01/04/18 20:59 12/09/17 20:32 Mike Dickinson MD Dec 10, 2017 13:24
--- NOTE | 2017-12-10 13:40 | General Progress Note ---
Assessment/Plan Status: stable Assessment/Plan 1. Leukocytosis likely secondary to underlying diabetic ketoacidosis, rule out underlying infection. --> Chest x-ray: No acute process; urinalysis ++ --> Peripheral smear - 12/09 all within normal values. --> WBC normalized. 2. Anemia due to underlying chronic disease. --> Continue to closely monitor for improvement. --> Anemia w/u has been reviewed. Will trend cbc daily. --> Hgb goal >7 3. Hyperkalemia. Given Kayexalate. --> Improved 4. Diabetic ketoacidosis. She has been seen by Pulmonary team, Dr. Ellis. 5. High anion gap acidosis. To be seen by primary team. --> Gap is closing. On insulin sliding scale. 6. Shortness of breath likely, due to underlying diabetic ketoacidosis. The time the note was entered does not necessarily correspond to the time the patient was seen. Subjective Date patient seen: Dec 10, 2017 ROS Limited/Unobtainable: Yes Hematologic/Lymphatic: Reports: anemia Allergies: Coded Allergies: PENICILLINS (Verified Allergy, Unknown, 12/05/17) All Systems: reviewed and negative except above Subjective Pt awake and confused. No acute events. H/H stable. Awaiting transfer. Objective Last 24 Hour Vital Signs Date Time Temp Pulse Resp B/P (MAP) Pulse Ox O2 Delivery O2 Flow Rate FiO2 12/10/17 12:00 97.9 67 18 117/59 (78) 97 97.9 12/10/17 12:00 83 12/10/17 09:07 120/57 12/10/17 09:00 64 120/57 12/10/17 09:00 120/57 12/10/17 09:00 Room Air 12/10/17 08:00 98.3 64 18 120/57 (78) 97 98.3 12/10/17 08:00 88 12/10/17 04:00 97.8 73 18 99/51 (67) 97 97.8 12/10/17 04:00 78 12/10/17 00:00 99.2 78 19 101/51 (68) 96 99.2 12/10/17 00:00 74 12/09/17 21:00 Room Air 12/09/17 20:32 91 136/71 12/09/17 20:00 99.5 91 19 136/71 (92) 95 99.5 12/09/17 19:57 102 12/09/17 16:00 89 12/09/17 16:00 98.8 91 18 122/57 (78) 98 98.8 Intake and Output 12/09/17 12/10/17 19:00 07:00 Intake Total 480 ml Balance 480 ml Intake Oral 480 ml # Voids 3 2 Laboratory Tests 12/10/17 10:10: Troponin I 0.052 Height (Feet): 5 Height (Inches): 6.00 Weight (Pounds): 174 General Appearance: no apparent distress EENT: PERRL/EOMI Neck: normal alignment Cardiovascular: normal peripheral pulses Respiratory/Chest: no respiratory distress Abdomen: soft David De Jesus MD Dec 10, 2017 13:40
[2017-12-10] MEDS ORDERED: Tubing IV Secondary IV ONE (14:47)
[2017-12-10] MEDS ORDERED: NS 275ml ONE (14:47)
[2017-12-10 16:00] VITALS: BP 140/65
--- NOTE | 2017-12-10 19:36 | Pulmonology Progress Note ---
Assessment/Plan Problems: (1) DKA (diabetic ketoacidoses) Assessment & Plan: RESOLVED (2) High anion gap metabolic acidosis Assessment & Plan: RESOLVED (3) Diabetes mellitus out of control Assessment & Plan: BETTER (4) Leukocytosis Assessment & Plan: RESOLVED (5) Acute on chronic renal failure Assessment & Plan: RESOLVED (6) NSTEMI (non-ST elevated myocardial infarction) Assessment & Plan: TROPS RESOLVED, TTE without WMA Assessment/Plan -Optimize pulmonary hygiene/mobilize as tolerated -PRN O2 -Glycemic control per ENDO -Continue ASA, statin, BB -F/U cards recs Re: ischemia eval, ? transfer to OSH vs non-invasive testing here -DVT Px: Hep SQ -Aspiration precautions Subjective Allergies: Coded Allergies: PENICILLINS (Verified Allergy, Unknown, 12/05/17) Subjective NAVIN, AFVSS, stable on RA BS well controlled, no F/C/CP/SOB Objective Last 24 Hour Vital Signs Date Time Temp Pulse Resp B/P (MAP) Pulse Ox O2 Delivery O2 Flow Rate FiO2 12/10/17 16:29 Room Air 12/10/17 16:00 97.9 88 21 140/65 (90) 96 97.9 12/10/17 16:00 86 12/10/17 12:00 97.9 67 18 117/59 (78) 97 97.9 12/10/17 12:00 83 12/10/17 09:07 120/57 12/10/17 09:00 64 120/57 12/10/17 09:00 120/57 12/10/17 09:00 Room Air 12/10/17 08:00 98.3 64 18 120/57 (78) 97 98.3 12/10/17 08:00 88 12/10/17 04:00 97.8 73 18 99/51 (67) 97 97.8 12/10/17 04:00 78 12/10/17 00:00 99.2 78 19 101/51 (68) 96 99.2 12/10/17 00:00 74 12/09/17 21:00 Room Air 12/09/17 20:32 91 136/71 12/09/17 20:00 99.5 91 19 136/71 (92) 95 99.5 12/09/17 19:57 102 Intake and Output 12/09/17 12/10/17 19:00 07:00 Intake Total 480 ml Balance 480 ml Intake Oral 480 ml # Voids 3 2 General Appearance: WD/WN, no acute distress HEENT: normocephalic, atraumatic, anicteric, mucous membranes moist Respiratory/Chest: chest wall non-tender, lungs clear, normal breath sounds, no respiratory distress, no accessory muscle use Cardiovascular: normal peripheral pulses, normal rate, regular rhythm Abdomen: normal bowel sounds, soft, non tender, no organomegaly, non distended , no mass Extremities: no cyanosis, no clubbing, no edema Laboratory Tests 12/10/17 10:10: Troponin I 0.052 Current Medications Medications (Trade) Dose Ordered Sig/Enrike Route PRN Reason Start Time Stop Time Status Last Admin Dose Admin Aspirin (ASA) 81 mg DAILY ORAL 12/08/17 09:00 01/05/18 08:59 12/10/17 09:06 Atorvastatin Calcium (Lipitor) 80 mg BEDTIME ORAL 12/10/17 21:00 01/09/18 20:59 Dextrose (Dextrose 50%) 25 ml STAT PRN IV Hypoglycemia 12/07/17 19:00 01/06/18 18:59 Dextrose (Dextrose 50%) 50 ml STAT PRN IV Hypoglycemia 12/07/17 19:00 01/06/18 18:59 Docusate Sodium (Colace) 100 mg TID ORAL 12/08/17 18:00 01/05/18 08:59 12/10/17 17:06 Heparin Sodium (Porcine) (Heparin 5000 units/ml) 5,000 units EVERY 12 HOURS SUBQ 12/08/17 21:00 01/07/18 20:59 12/09/17 20:33 Insulin Aspart (NovoLOG) BEFORE MEALS AND HS SUBQ 12/09/17 11:30 01/05/18 08:59 12/10/17 16:13 Insulin Detemir (Levemir) 10 units Q12HR SUBQ 12/10/17 09:00 01/05/18 08:59 12/10/17 09:13 Lisinopril (Zestril) 2.5 mg DAILY ORAL 12/09/17 09:00 01/08/18 08:59 12/09/17 09:05 Metoprolol Tartrate (Lopressor) 50 mg Q12HR ORAL 12/10/17 09:00 01/09/18 08:59 Nateglinide (Starlix) 60 mg TIAC ORAL 12/09/17 11:30 01/08/18 11:29 12/10/17 16:11 Nitroglycerin (Ntg) 1 patch Q24H TDERMAL 12/08/17 09:00 01/05/18 08:59 12/10/17 09:07 Pantoprazole (Protonix) 40 mg DAILY ORAL 12/09/17 09:00 01/05/18 09:17 12/10/17 09:06 Quetiapine Fumarate (SEROquel) 25 mg Q6H PRN ORAL For Anxiety 12/07/17 19:00 01/04/18 18:59 Quetiapine Fumarate (SEROquel) 50 mg BEDTIME ORAL 12/07/17 21:00 01/04/18 20:59 12/09/17 20:32 James Ellis MD Dec 10, 2017 19:36
[2017-12-10 20:00] VITALS: BP 149/75
[2017-12-10] MEDS ORDERED: Atorvastatin 20mg tab ORAL SCH (21:00)
--- NOTE | 2017-12-10 22:41 | Cardiology Progress Note ---
Assessment/Plan Assessment/Plan 1. NSTEMI , it appears that no outside facility is willing to take this patient for heart cath, proceed with non-invasive MPI to assess the extent of ischemia if any.We may have to allow the patient to have it done as an outpatient. 2. DKA 3. Anion gap acidosis, resolved. 4. Hypomagnesemia, supplement given, check Mg level in am 5. Anemia Subjective Subjective Sinus rhythm at 90. Denies chest pain or SOB. Awaiting transfer to an outside facility for heart cath. Objective Last 24 Hour Vital Signs Date Time Temp Pulse Resp B/P (MAP) Pulse Ox O2 Delivery O2 Flow Rate FiO2 12/10/17 21:28 90 149/75 12/10/17 20:00 98.1 90 17 149/75 (99) 95 98.1 12/10/17 16:29 Room Air 12/10/17 16:00 97.9 88 21 140/65 (90) 96 97.9 12/10/17 16:00 86 12/10/17 12:00 97.9 67 18 117/59 (78) 97 97.9 12/10/17 12:00 83 12/10/17 09:07 120/57 12/10/17 09:00 64 120/57 12/10/17 09:00 120/57 12/10/17 09:00 Room Air 12/10/17 08:00 98.3 64 18 120/57 (78) 97 98.3 12/10/17 08:00 88 12/10/17 04:00 97.8 73 18 99/51 (67) 97 97.8 12/10/17 04:00 78 12/10/17 00:00 99.2 78 19 101/51 (68) 96 99.2 12/10/17 00:00 74 Intake and Output 12/09/17 12/10/17 19:00 07:00 Intake Total 480 ml Balance 480 ml Intake Oral 480 ml # Voids 3 2 2D Echo: EF 55%, CASEY 1.1 cm2, RVSP 42 mmhg, Mod MR Laboratory Tests Test 12/10/17 10:10 Troponin I 0.052 ng/mL (0.000-0.056) Objective HEENT: normocephalic, atraumatic bilateral eye normal inspection, bilateral eye PERRL Neck: No JVD, no carotid bruit Respiratory: chest non-tender, lungs clear, normal breath sounds, speaking full sentences Cardiovascular: regular rate, rhythm, normal S1S2, no murmurs, gallops or rubs. Gastrointestinal: normal bowel sounds, non tender, soft, non-distended, no guarding, no rebound Genitourinary: normal inspection, no CVA tenderness Musculoskeletal: no edema, clubbing or cyanosis. Bimal Mata MD Dec 10, 2017 22:41
[2017-12-11] VITALS: BP 117/64
[2017-12-11 04:00] VITALS: BP 130/67
[2017-12-11] MEDS: Nateglinide 60mg tab ORAL SCH ×3 (05:58→17:22)
[2017-12-11] MEDS: NovoLOG Insulin Flexpen SUBQ SCH ×3 (05:59→17:25)
[2017-12-11 08:00] VITALS: BP 142/70
--- NOTE | 2017-12-11 08:05 | General Progress Note ---
Assessment/Plan Problem List: (1) Diabetes mellitus out of control ICD Codes: E11.65 - Type 2 diabetes mellitus with hyperglycemia SNOMED: 08349375, 228971136 (2) DKA (diabetic ketoacidoses) ICD Codes: E13.10 - Other specified diabetes mellitus with ketoacidosis without coma SNOMED: 228554851, 68084479 Qualifiers: Qualified Codes: E13.10 - Other specified diabetes mellitus with ketoacidosis without coma (3) High anion gap metabolic acidosis ICD Codes: E87.2 - Acidosis SNOMED: 38313834 (4) Renal insufficiency ICD Codes: N28.9 - Disorder of kidney and ureter, unspecified SNOMED: 251297516, 121465161 (5) Hyperkalemia ICD Codes: E87.5 - Hyperkalemia SNOMED: 71435324 (6) Leukocytosis ICD Codes: D72.829 - Elevated white blood cell count, unspecified SNOMED: 377981357, 061120276 Assessment/Plan glucose elevated due to Levemir being held continue Levemir 10 units bid continue NISS ac / hs continue Starlix 60 mg ac tid Subjective Allergies: Coded Allergies: PENICILLINS (Verified Allergy, Unknown, 12/05/17) All Systems: reviewed and negative except above Subjective events noted - doing fine Objective Last 24 Hour Vital Signs Date Time Temp Pulse Resp B/P (MAP) Pulse Ox O2 Delivery O2 Flow Rate FiO2 12/11/17 04:00 77 12/11/17 04:00 97.8 81 18 130/67 (88) 97 97.8 12/11/17 00:00 98.1 71 19 117/64 (81) 97 98.1 12/11/17 00:00 69 12/10/17 21:28 90 149/75 12/10/17 21:00 Room Air 12/10/17 20:00 107 12/10/17 20:00 98.1 90 17 149/75 (99) 95 98.1 12/10/17 16:29 Room Air 12/10/17 16:00 97.9 88 21 140/65 (90) 96 97.9 12/10/17 16:00 86 12/10/17 12:00 97.9 67 18 117/59 (78) 97 97.9 12/10/17 12:00 83 12/10/17 09:07 120/57 12/10/17 09:00 64 120/57 12/10/17 09:00 120/57 12/10/17 09:00 Room Air Intake and Output 12/10/17 12/11/17 19:00 07:00 Intake Total 480 ml 480 ml Balance 480 ml 480 ml Intake Oral 480 ml 480 ml # Voids 2 2 Laboratory Tests 12/10/17 10:10: Troponin I 0.052 12/11/17 05:58: Magnesium Level 1.7L Height (Feet): 5 Height (Inches): 6.00 Weight (Pounds): 173 General Appearance: no apparent distress Neck: normal alignment Cardiovascular: normal rate Respiratory/Chest: lungs clear Abdomen: normal bowel sounds Pelvis: normal external exam Objective Current Medications Medications (Trade) Dose Ordered Sig/Enrike Route PRN Reason Start Time Stop Time Status Last Admin Dose Admin Aspirin (ASA) 81 mg DAILY ORAL 12/08/17 09:00 01/05/18 08:59 12/10/17 09:06 Atorvastatin Calcium (Lipitor) 80 mg BEDTIME ORAL 12/10/17 21:00 01/09/18 20:59 12/10/17 21:27 Dextrose (Dextrose 50%) 25 ml STAT PRN IV Hypoglycemia 12/07/17 19:00 01/06/18 18:59 Dextrose (Dextrose 50%) 50 ml STAT PRN IV Hypoglycemia 12/07/17 19:00 01/06/18 18:59 Docusate Sodium (Colace) 100 mg TID ORAL 12/08/17 18:00 01/05/18 08:59 12/10/17 17:06 Heparin Sodium (Porcine) (Heparin 5000 units/ml) 5,000 units EVERY 12 HOURS SUBQ 12/08/17 21:00 01/07/18 20:59 12/09/17 20:33 Insulin Aspart (NovoLOG) BEFORE MEALS AND HS SUBQ 12/09/17 11:30 01/05/18 08:59 12/11/17 05:59 Insulin Detemir (Levemir) 10 units Q12HR SUBQ 12/10/17 09:00 01/05/18 08:59 12/10/17 09:13 Lisinopril (Zestril) 2.5 mg DAILY ORAL 12/09/17 09:00 01/08/18 08:59 12/09/17 09:05 Metoprolol Tartrate (Lopressor) 50 mg Q12HR ORAL 12/10/17 09:00 01/09/18 08:59 12/10/17 21:28 Nateglinide (Starlix) 60 mg TIAC ORAL 12/09/17 11:30 01/08/18 11:29 12/11/17 05:58 Nitroglycerin (Ntg) 1 patch Q24H TDERMAL 12/08/17 09:00 01/05/18 08:59 12/10/17 09:07 Pantoprazole (Protonix) 40 mg DAILY ORAL 12/09/17 09:00 01/05/18 09:17 12/10/17 09:06 Quetiapine Fumarate (SEROquel) 25 mg Q6H PRN ORAL For Anxiety 12/07/17 19:00 01/04/18 18:59 Quetiapine Fumarate (SEROquel) 50 mg BEDTIME ORAL 12/07/17 21:00 01/04/18 20:59 12/09/17 20:32 Regadenoson (Lexiscan) 0.4 mg ONCE ONCE IV 12/11/17 12:45 12/11/17 12:46 Item Value Date Time Bedside Blood Glucose 306 mg/dl H 12/11/17 0559 Bedside Blood Glucose 95 mg/dl 12/10/17 2100 Bedside Blood Glucose 121 mg/dl H 12/10/17 1613 Bedside Blood Glucose 309 mg/dl H 12/10/17 1200 Bedside Blood Glucose 83 mg/dl 12/10/17 0913 Bedside Blood Glucose 83 mg/dl 12/10/17 0630 Mehdi Lopez MD Dec 11, 2017 08:05
--- NOTE | 2017-12-11 08:37 | Pulmonology Progress Note ---
Assessment/Plan Problems: (1) DKA (diabetic ketoacidoses) Assessment & Plan: RESOLVED (2) High anion gap metabolic acidosis Assessment & Plan: RESOLVED (3) Diabetes mellitus out of control Assessment & Plan: BETTER (4) Leukocytosis Assessment & Plan: RESOLVED (5) Acute on chronic renal failure Assessment & Plan: RESOLVED (6) NSTEMI (non-ST elevated myocardial infarction) Assessment & Plan: TROPS RESOLVED, TTE without WMA Assessment/Plan -Optimize pulmonary hygiene/mobilize as tolerated -PRN O2 -Glycemic control per ENDO -Continue ASA, statin, BB -F/U cards recs, plan for NM stress test -DVT Px: Hep SQ -Aspiration precautions Subjective Allergies: Coded Allergies: PENICILLINS (Verified Allergy, Unknown, 12/05/17) Subjective NAVIN, AFVSS, stable on RA BS well controlled, no F/C/CP/SOB Objective Last 24 Hour Vital Signs Date Time Temp Pulse Resp B/P (MAP) Pulse Ox O2 Delivery O2 Flow Rate FiO2 12/11/17 04:00 77 12/11/17 04:00 97.8 81 18 130/67 (88) 97 97.8 12/11/17 00:00 98.1 71 19 117/64 (81) 97 98.1 12/11/17 00:00 69 12/10/17 21:28 90 149/75 12/10/17 21:00 Room Air 12/10/17 20:00 107 12/10/17 20:00 98.1 90 17 149/75 (99) 95 98.1 12/10/17 16:29 Room Air 12/10/17 16:00 97.9 88 21 140/65 (90) 96 97.9 12/10/17 16:00 86 12/10/17 12:00 97.9 67 18 117/59 (78) 97 97.9 12/10/17 12:00 83 12/10/17 09:07 120/57 12/10/17 09:00 64 120/57 12/10/17 09:00 120/57 12/10/17 09:00 Room Air Intake and Output 12/10/17 12/11/17 19:00 07:00 Intake Total 480 ml 480 ml Balance 480 ml 480 ml Intake Oral 480 ml 480 ml # Voids 2 2 General Appearance: WD/WN, no acute distress HEENT: normocephalic, atraumatic, anicteric, mucous membranes moist Respiratory/Chest: chest wall non-tender, lungs clear, normal breath sounds, no respiratory distress, no accessory muscle use Cardiovascular: normal peripheral pulses, normal rate, regular rhythm Abdomen: normal bowel sounds, soft, non tender, no organomegaly, non distended , no mass Extremities: no cyanosis, no clubbing, no edema Laboratory Tests 12/10/17 10:10: Troponin I 0.052 12/11/17 05:58: Magnesium Level 1.7L Current Medications Medications (Trade) Dose Ordered Sig/Enrike Route PRN Reason Start Time Stop Time Status Last Admin Dose Admin Aspirin (ASA) 81 mg DAILY ORAL 12/08/17 09:00 01/05/18 08:59 12/10/17 09:06 Atorvastatin Calcium (Lipitor) 80 mg BEDTIME ORAL 12/10/17 21:00 01/09/18 20:59 12/10/17 21:27 Dextrose (Dextrose 50%) 25 ml STAT PRN IV Hypoglycemia 12/07/17 19:00 01/06/18 18:59 Dextrose (Dextrose 50%) 50 ml STAT PRN IV Hypoglycemia 12/07/17 19:00 01/06/18 18:59 Docusate Sodium (Colace) 100 mg TID ORAL 12/08/17 18:00 01/05/18 08:59 12/10/17 17:06 Heparin Sodium (Porcine) (Heparin 5000 units/ml) 5,000 units EVERY 12 HOURS SUBQ 12/08/17 21:00 01/07/18 20:59 12/09/17 20:33 Insulin Aspart (NovoLOG) BEFORE MEALS AND HS SUBQ 12/09/17 11:30 01/05/18 08:59 12/11/17 05:59 Insulin Detemir (Levemir) 10 units Q12HR SUBQ 12/10/17 09:00 01/05/18 08:59 12/10/17 09:13 Lisinopril (Zestril) 2.5 mg DAILY ORAL 12/09/17 09:00 01/08/18 08:59 12/09/17 09:05 Metoprolol Tartrate (Lopressor) 50 mg Q12HR ORAL 12/10/17 09:00 01/09/18 08:59 12/10/17 21:28 Nateglinide (Starlix) 60 mg TIAC ORAL 12/09/17 11:30 01/08/18 11:29 12/11/17 05:58 Nitroglycerin (Ntg) 1 patch Q24H TDERMAL 12/08/17 09:00 01/05/18 08:59 12/10/17 09:07 Pantoprazole (Protonix) 40 mg DAILY ORAL 12/09/17 09:00 01/05/18 09:17 12/10/17 09:06 Quetiapine Fumarate (SEROquel) 25 mg Q6H PRN ORAL For Anxiety 12/07/17 19:00 01/04/18 18:59 Quetiapine Fumarate (SEROquel) 50 mg BEDTIME ORAL 12/07/17 21:00 01/04/18 20:59 12/09/17 20:32 Regadenoson (Lexiscan) 0.4 mg ONCE ONCE IV 12/11/17 12:45 12/11/17 12:46 James Ellis MD Dec 11, 2017 08:37
[2017-12-11] MEDS: Heparin 5000 units/ml inj SUBQ SCH (09:00)
--- NOTE | 2017-12-11 09:49 | Nephrology Progress Note ---
Assessment/Plan Problem List: (1) Acute on chronic renal failure Assessment: Cr normalized (2) Hyperkalemia Assessment: resolved (3) DKA (diabetic ketoacidoses) Assessment: resolved (4) Diabetes mellitus out of control (5) NSTEMI (non-ST elevated myocardial infarction) Assessment: Troponin I normalized as of December 10 Assessment (1) DKA (diabetic ketoacidoses) (2) Leukocytosis ? undelrlying sepsis (3) Hyperkalemia, and acute renal failure, likely dehydration (4) High anion gap metabolic acidosis Plan po Mag asa, lopressor, nitrate K Phos as needed Watch K and Phos , supplement as needed Insulin treatment Monitor lytes and renal parameters- 2D echo Left ventricular ejection fraction estimated to be 65-70 %. avoid nephrotoxics- per cardio ? DC planning? Subjective ROS Limited/Unobtainable: No Constitutional: Reports: other - anxious to go home Objective Objective Last 24 Hour Vital Signs Date Time Temp Pulse Resp B/P (MAP) Pulse Ox O2 Delivery O2 Flow Rate FiO2 12/11/17 04:00 77 12/11/17 04:00 97.8 81 18 130/67 (88) 97 97.8 12/11/17 00:00 98.1 71 19 117/64 (81) 97 98.1 12/11/17 00:00 69 12/10/17 21:28 90 149/75 12/10/17 21:00 Room Air 12/10/17 20:00 107 12/10/17 20:00 98.1 90 17 149/75 (99) 95 98.1 12/10/17 16:29 Room Air 12/10/17 16:00 97.9 88 21 140/65 (90) 96 97.9 12/10/17 16:00 86 12/10/17 12:00 97.9 67 18 117/59 (78) 97 97.9 12/10/17 12:00 83 Intake and Output 12/10/17 12/11/17 19:00 07:00 Intake Total 480 ml 480 ml Balance 480 ml 480 ml Intake Oral 480 ml 480 ml # Voids 2 2 Laboratory Tests 12/10/17 10:10: Troponin I 0.052 12/11/17 05:58: Magnesium Level 1.7L Height (Feet): 5 Height (Inches): 6.00 Weight (Pounds): 173 General Appearance: no apparent distress Objective no change Amandeep Shaw MD Dec 11, 2017 09:49
[2017-12-11] MEDS: Docusate 100mg cap ORAL SCH ×3 (09:52→17:23)
[2017-12-11] MEDS: Aspirin Baby 81mg ORAL SCH ×2 (09:52→10:28)
[2017-12-11] MEDS: Lisinopril 2.5mg tab ORAL SCH (10:05)
[2017-12-11] MEDS: Metoprolol 25mg tab ORAL SCH (10:05)
[2017-12-11] MEDS: Nitroglycerin Patch 0.4mg TDERMAL SCH (10:06)
[2017-12-11] MEDS: Levemir Flexpen SUBQ SCH (10:14)
[2017-12-11 12:00] VITALS: BP 119/69
--- NOTE | 2017-12-11 12:03 | Infectious Diseases Prog Note ---
Assessment/Plan Assessment/Plan A: SIRS improved DKA improved NSTE-AK Acute renal failure resolved Hyperkalemia, corrected P; Observe off antibiotic Case was D/W primary MD Subjective ROS Limited/Unobtainable: No Constitutional: Reports: no symptoms HEENT: Reports: no symptoms Cardiovascular: Reports: no symptoms Gastrointestinal/Abdominal: Reports: no symptoms Genitourinary: Reports: no symptoms Allergies: Coded Allergies: PENICILLINS (Verified Allergy, Unknown, 12/05/17) Objective Vital Signs Last 24 Hour Vital Signs Date Time Temp Pulse Resp B/P (MAP) Pulse Ox O2 Delivery O2 Flow Rate FiO2 12/11/17 10:06 142/70 12/11/17 10:05 94 142/70 12/11/17 10:05 142/70 12/11/17 09:00 Room Air 12/11/17 08:00 89 12/11/17 08:00 97.5 92 18 142/70 (94) 96 97.5 12/11/17 04:00 77 12/11/17 04:00 97.8 81 18 130/67 (88) 97 97.8 12/11/17 00:00 98.1 71 19 117/64 (81) 97 98.1 12/11/17 00:00 69 12/10/17 21:28 90 149/75 12/10/17 21:00 Room Air 12/10/17 20:00 107 12/10/17 20:00 98.1 90 17 149/75 (99) 95 98.1 12/10/17 16:29 Room Air 12/10/17 16:00 97.9 88 21 140/65 (90) 96 97.9 12/10/17 16:00 86 Height (Feet): 5 Height (Inches): 6.00 Weight (Pounds): 173 General Appearance: no acute distress HEENT: mucous membranes moist Respiratory/Chest: lungs clear Cardiovascular: normal rate Abdomen: soft, non tender Skin: other - trace edema Neurologic/Psychiatric: alert, oriented x 3, responsive Laboratory Tests Test 12/11/17 05:58 Magnesium Level 1.7 MG/DL (1.8-2.4) L Current Medications Medications (Trade) Dose Ordered Sig/Enrike Route PRN Reason Start Time Stop Time Status Last Admin Dose Admin Aspirin (ASA) 81 mg DAILY ORAL 12/08/17 09:00 01/05/18 08:59 12/11/17 10:28 Atorvastatin Calcium (Lipitor) 80 mg BEDTIME ORAL 12/10/17 21:00 01/09/18 20:59 12/10/17 21:27 Dextrose (Dextrose 50%) 25 ml STAT PRN IV Hypoglycemia 12/07/17 19:00 01/06/18 18:59 Dextrose (Dextrose 50%) 50 ml STAT PRN IV Hypoglycemia 12/07/17 19:00 01/06/18 18:59 Docusate Sodium (Colace) 100 mg TID ORAL 12/08/17 18:00 01/05/18 08:59 12/11/17 09:52 Heparin Sodium (Porcine) (Heparin 5000 units/ml) 5,000 units EVERY 12 HOURS SUBQ 12/08/17 21:00 01/07/18 20:59 12/09/17 20:33 Insulin Aspart (NovoLOG) BEFORE MEALS AND HS SUBQ 12/09/17 11:30 01/05/18 08:59 12/11/17 05:59 Insulin Detemir (Levemir) 10 units Q12HR SUBQ 12/10/17 09:00 01/05/18 08:59 12/11/17 10:14 Lisinopril (Zestril) 2.5 mg DAILY ORAL 12/09/17 09:00 01/08/18 08:59 12/11/17 10:05 Magnesium Oxide (Mag-Ox 400mg) 400 mg THREE TIMES A DAY ORAL 12/11/17 13:00 01/10/18 12:59 Metoprolol Tartrate (Lopressor) 50 mg Q12HR ORAL 12/10/17 09:00 01/09/18 08:59 12/11/17 10:05 Nateglinide (Starlix) 60 mg TIAC ORAL 12/09/17 11:30 01/08/18 11:29 12/11/17 05:58 Nitroglycerin (Ntg) 1 patch Q24H TDERMAL 12/08/17 09:00 01/05/18 08:59 12/11/17 10:06 Pantoprazole (Protonix) 40 mg DAILY ORAL 12/09/17 09:00 01/05/18 09:17 12/11/17 09:57 Quetiapine Fumarate (SEROquel) 25 mg Q6H PRN ORAL For Anxiety 12/07/17 19:00 01/04/18 18:59 Quetiapine Fumarate (SEROquel) 50 mg BEDTIME ORAL 12/07/17 21:00 01/04/18 20:59 12/09/17 20:32 Regadenoson (Lexiscan) 0.4 mg ONCE ONCE IV 12/11/17 12:45 12/11/17 12:46 Mike Dickinson MD Dec 11, 2017 12:03
[2017-12-11] MEDS ORDERED: Lexiscan 0.4mg/5ml syringe IV ONE (12:45)
[2017-12-11] MEDS: Magnesium Oxide 400mg tab ORAL SCH ×2 (13:08→17:22)
--- NOTE | 2017-12-11 13:08 | General Progress Note ---
Assessment/Plan Problem List: (1) DKA (diabetic ketoacidoses) ICD Codes: E13.10 - Other specified diabetes mellitus with ketoacidosis without coma SNOMED: 167857475, 91567185 Qualifiers: Qualified Codes: E13.10 - Other specified diabetes mellitus with ketoacidosis without coma (2) Acute on chronic renal failure ICD Codes: N17.9 - Acute kidney failure, unspecified; N18.9 - Chronic kidney disease, unspecified SNOMED: 078473225 (3) Hyperkalemia ICD Codes: E87.5 - Hyperkalemia SNOMED: 95435164 Status: progressing Assessment/Plan dm elevated trop getting stress test today once cleared by dr samson can be dc and to f/u w cardio and endocrine in one week Subjective ROS Limited/Unobtainable: Yes Allergies: Coded Allergies: PENICILLINS (Verified Allergy, Unknown, 12/05/17) Objective Last 24 Hour Vital Signs Date Time Temp Pulse Resp B/P (MAP) Pulse Ox O2 Delivery O2 Flow Rate FiO2 12/11/17 12:00 97.7 75 18 119/69 (86) 97 97.7 12/11/17 10:06 142/70 12/11/17 10:05 94 142/70 12/11/17 10:05 142/70 12/11/17 09:00 Room Air 12/11/17 08:00 89 12/11/17 08:00 97.5 92 18 142/70 (94) 96 97.5 12/11/17 04:00 77 12/11/17 04:00 97.8 81 18 130/67 (88) 97 97.8 12/11/17 00:00 98.1 71 19 117/64 (81) 97 98.1 12/11/17 00:00 69 12/10/17 21:28 90 149/75 12/10/17 21:00 Room Air 12/10/17 20:00 107 12/10/17 20:00 98.1 90 17 149/75 (99) 95 98.1 12/10/17 16:29 Room Air 12/10/17 16:00 97.9 88 21 140/65 (90) 96 97.9 12/10/17 16:00 86 Intake and Output 12/10/17 12/11/17 19:00 07:00 Intake Total 480 ml 480 ml Balance 480 ml 480 ml Intake Oral 480 ml 480 ml # Voids 2 2 Laboratory Tests 12/11/17 05:58: Magnesium Level 1.7L Height (Feet): 5 Height (Inches): 6.00 Weight (Pounds): 173 Neck: supple Cardiovascular: normal rate Respiratory/Chest: lungs clear Abdomen: soft Delaney Fontana MD Dec 11, 2017 13:08
--- NOTE | 2017-12-11 13:12 | General Progress Note ---
Assessment/Plan Status: stable, progressing Assessment/Plan encephalopathy Agitation -seroquel 25mg q 6hr/prn/agitation -haldol prn Subjective Date patient seen: Dec 11, 2017 Neurologic/Psychiatric: Reports: anxiety, depressed Allergies: Coded Allergies: PENICILLINS (Verified Allergy, Unknown, 12/05/17) Subjective the pt has episodes of anxiety Objective Last 24 Hour Vital Signs Date Time Temp Pulse Resp B/P (MAP) Pulse Ox O2 Delivery O2 Flow Rate FiO2 12/11/17 12:00 97.7 75 18 119/69 (86) 97 97.7 12/11/17 10:06 142/70 12/11/17 10:05 94 142/70 12/11/17 10:05 142/70 12/11/17 09:00 Room Air 12/11/17 08:00 89 12/11/17 08:00 97.5 92 18 142/70 (94) 96 97.5 12/11/17 04:00 77 12/11/17 04:00 97.8 81 18 130/67 (88) 97 97.8 12/11/17 00:00 98.1 71 19 117/64 (81) 97 98.1 12/11/17 00:00 69 12/10/17 21:28 90 149/75 12/10/17 21:00 Room Air 12/10/17 20:00 107 12/10/17 20:00 98.1 90 17 149/75 (99) 95 98.1 12/10/17 16:29 Room Air 12/10/17 16:00 97.9 88 21 140/65 (90) 96 97.9 12/10/17 16:00 86 Intake and Output 12/10/17 12/11/17 19:00 07:00 Intake Total 480 ml 480 ml Balance 480 ml 480 ml Intake Oral 480 ml 480 ml # Voids 2 2 Laboratory Tests 12/11/17 05:58: Magnesium Level 1.7L Height (Feet): 5 Height (Inches): 6.00 Weight (Pounds): 173 General Appearance: no apparent distress, alert Jeanette Jerez MD Dec 11, 2017 13:12
--- NOTE | 2017-12-11 14:11 | General Progress Note ---
Assessment/Plan Status: stable Assessment/Plan 1. Leukocytosis likely secondary to underlying diabetic ketoacidosis, rule out underlying infection. --> Chest x-ray: No acute process; urinalysis ++ --> Peripheral smear - 12/09 all within normal values. --> WBC normalized. 2. Anemia due to underlying chronic disease. --> Continue to closely monitor for improvement. --> Anemia w/u has been reviewed. Will trend cbc daily. --> Hgb goal >7 3. Hyperkalemia. Given Kayexalate. --> Improved 4. Diabetic ketoacidosis. She has been seen by Pulmonary team, Dr. Ellis. 5. High anion gap acidosis. To be seen by primary team. --> Gap is closing. On insulin sliding scale. 6. Shortness of breath likely, due to underlying diabetic ketoacidosis. The time the note was entered does not necessarily correspond to the time the patient was seen. Subjective Date patient seen: Dec 11, 2017 ROS Limited/Unobtainable: Yes Hematologic/Lymphatic: Reports: anemia Allergies: Coded Allergies: PENICILLINS (Verified Allergy, Unknown, 12/05/17) All Systems: reviewed and negative except above Subjective Pt awake and confused. No acute events. H/H stable. Awaiting transfer. Pt scheduled for Lexiscan stress test today. Objective Last 24 Hour Vital Signs Date Time Temp Pulse Resp B/P (MAP) Pulse Ox O2 Delivery O2 Flow Rate FiO2 12/11/17 12:00 74 12/11/17 12:00 97.7 75 18 119/69 (86) 97 97.7 12/11/17 10:06 142/70 12/11/17 10:05 94 142/70 12/11/17 10:05 142/70 12/11/17 09:00 Room Air 12/11/17 08:00 89 12/11/17 08:00 97.5 92 18 142/70 (94) 96 97.5 12/11/17 04:00 77 12/11/17 04:00 97.8 81 18 130/67 (88) 97 97.8 12/11/17 00:00 98.1 71 19 117/64 (81) 97 98.1 12/11/17 00:00 69 12/10/17 21:28 90 149/75 12/10/17 21:00 Room Air 12/10/17 20:00 107 12/10/17 20:00 98.1 90 17 149/75 (99) 95 98.1 12/10/17 16:29 Room Air 12/10/17 16:00 97.9 88 21 140/65 (90) 96 97.9 12/10/17 16:00 86 Intake and Output 12/10/17 12/11/17 19:00 07:00 Intake Total 480 ml 480 ml Balance 480 ml 480 ml Intake Oral 480 ml 480 ml # Voids 2 2 Laboratory Tests 12/11/17 05:58: Magnesium Level 1.7L Height (Feet): 5 Height (Inches): 6.00 Weight (Pounds): 173 General Appearance: no apparent distress EENT: PERRL/EOMI Neck: normal alignment Cardiovascular: normal peripheral pulses Respiratory/Chest: no respiratory distress Abdomen: normal bowel sounds, soft David De Jesus MD Dec 11, 2017 14:11
--- NOTE | 2017-12-11 15:35 | Diagnostic Imaging Report ---
Indications: Chest pain Technique: See cardiology report for details of LexiScan stress testing. During LexiScan infusion, IV [id number] mCi 99 M technetium Myoview for stress portion. SPECT and planar images obtained. SPECT images gated to 8 phases of the cardiac cycle were also obtained, and reformatted into cine images for evaluation of ejection fraction. Resting images obtained using IV administration 10.6 mCi 99 M technetium Myoview. Comparison:none Findings: Baseline heart rate of 75 beats per minutes; end infusion heart rate 90 bpm. Baseline blood pressure of 125/58; end infusion blood pressure of 102/52. Infusion duration was [address]-T changes were noted. The clinical response to pharmacologic stress was nonischemic. The echocardiographic response to pharmacologic stress was nonischemic. Perfusion images demonstrate questionable tiny perfusion defect. Posterior lateral wall, region of the left circumflex territory. This is best seen on the perfusion maps. This may potentially be artifactual. Ejection fraction estimated at 83%. IMPRESSION: Questionable tiny reversible defect versus artifact in the posterolateral wall. No additional definite significant fixed or reversible perfusion defects identified. Ejection fraction of approximately 83%.
[2017-12-11 16:00] VITALS: BP 131/69
[2017-12-11] MEDS ORDERED: Metoprolol Tartrate 50mg tab ORAL SCH (21:00)
[2017-12-11] MEDS ORDERED: Atorvastatin 80mg tab ORAL SCH (21:00)
--- NOTE | 2017-12-11 23:57 | Cardiology Progress Note ---
Assessment/Plan Assessment/Plan 1. NSTEMI , it appears that no outside facility is willing to take this patient for heart cath, non-invasive MPI showed no myocardial wall ischemia, the patient can be safely discharged home, if the CP occurs, will instruct the patient to go to a facility with shift lab technician amenities. 2. DKA 3. Anion gap acidosis, resolved. 4. Hypomagnesemia, supplement given, check Mg level in am 5. Anemia Subjective Subjective Sinus rhythm at 68. s/p nuclear stress test today. Objective Last 24 Hour Vital Signs Date Time Temp Pulse Resp B/P (MAP) Pulse Ox O2 Delivery O2 Flow Rate FiO2 12/11/17 16:00 97.7 68 18 131/69 (89) 97 97.7 12/11/17 12:00 74 12/11/17 12:00 97.7 75 18 119/69 (86) 97 97.7 12/11/17 10:06 142/70 12/11/17 10:05 94 142/70 12/11/17 10:05 142/70 12/11/17 09:00 Room Air 12/11/17 08:00 89 12/11/17 08:00 97.5 92 18 142/70 (94) 96 97.5 12/11/17 04:00 77 12/11/17 04:00 97.8 81 18 130/67 (88) 97 97.8 12/11/17 00:00 98.1 71 19 117/64 (81) 97 98.1 12/11/17 00:00 69 Intake and Output 12/10/17 12/11/17 19:00 07:00 Intake Total 480 ml 480 ml Balance 480 ml 480 ml Intake Oral 480 ml 480 ml # Voids 2 2 2D Echo: EF 55%, CASEY 1.1 cm2, RVSP 42 mmhg, Mod MR Laboratory Tests Test 12/11/17 05:58 Magnesium Level 1.7 MG/DL (1.8-2.4) L Objective HEENT: normocephalic, atraumatic bilateral eye normal inspection, bilateral eye PERRL Neck: No JVD, no carotid bruit Respiratory: chest non-tender, lungs clear, normal breath sounds, speaking full sentences Cardiovascular: regular rate, rhythm, normal S1S2, no murmurs, gallops or rubs. Gastrointestinal: normal bowel sounds, non tender, soft, non-distended, no guarding, no rebound Genitourinary: normal inspection, no CVA tenderness Musculoskeletal: no edema, clubbing or cyanosis. Bimal Mata MD Dec 11, 2017 23:57
--- NOTE | 2017-12-13 11:17 | Discharge Summary ---
Discharge Summary Discharge Summary _ DATE OF ADMISSION: 12/05/2017 DATE OF DISCHARGE: 12/11/2017 REASON FOR ADMISSION: 67 years old female with past medical history of diabetes mellitus presented to emergency room for elevated blood sugar. According to sister, patient was altered for one day. Patient was not compliant with her medication for several days. No fever, no chills. No chest pain or shortness of breath. no nausea no vomiting. Upon evaluation vital signs reveal tachycardia. Laboratory workup revealed leukocytosis WBC 18.5, mild anemia hemoglobin 11.3 hematocrit 36.4 Sodium 132, potassium 6.0,anion gap 34 ,CO2 6. Glucose 844. Stable LFT. ABG revealed metabolic acidosis. EKG revealed sinus tachycardia, no acute ischemic changes. Urinalysis +2 protein, +2 ketones, +3 glucose , hematuria , but no evidence of UTI. Chest x-ray revealed no acute cardiopulmonary pathology. Patient admitted with diagnosis of diabetic ketoacidosis, renal failure, hyperkalemia, leukocytosis. CONSULTANTS: complaint coordinator pulmonary Dr. Ellis ID specialist Kirt Jade. heel emery buffer Dr. Shaw credentials specialist/oncologist Dr. De Jesus cell stripper Dr. Lopez psychiatrist instructor creeler [facility] COURSE: Patient admitted. Patient started on generous IV hydration. Hyperkalemia corrected. Renal parameters and electrolytes were closely monitored . Matcher followed. Ballroom Dance Instructor optimized anti-glycemic regimen . Patient started on Levemir ,Starlix and sliding scale of insulin as needed. Hemoglobin A1c 10.3, clearly not at goal. Patient counseled on compliance with anti-glycemic regimen and on diabetic diet. Blood sugar evidentially stabilized. Matcher closely followed. Per heel emery buffer patient had acute on chronic renal failure. Renal failure and hyperkalemia were likely precipitated by dehydration. Prior to discharge BUN 37 creatinine 1.6. Potassium down to normal. On the second day of admission 12/06, patient complained of chest pain. Troponin was elevated . Cardiology consult was requested. Serial troponin were elevated with trend down EKG revealed no acute ischemic changes . Apple Packing Header closely followed. patient started on heparin drip. Patient started on aspirin , beta jennifer , statin . Lipid panel was stable. Nitroglycerin was on board as needed for chest pain. Echocardiogram revealed preserved ejection fraction of 65-70%. Venous duplex bilateral lower extremity was negative. Noninvasive stress test revealed no myocardial ischemia. print finishing worker was working on transfer patient for cardiac catheterization, but no placement was found. Per complaint coordinator patient can be safely discharged home. Patient was instructed that if chest pain recur, go to the facility with cardiac catheterization amenities. Infectious disease specialist closely followed. Patient initially was on antibiotics. Leukocytosis resolved, No evidence of infection, no fevers. Leukocytosis was likely reactive secondary to DKA as per credentials specialist. Infectious disease specialist recommended to keep patient off antibiotics. Patient complained of decreasing vision. Ophthalmology evaluation was requested. Patient was found to have been refractive error, however patient did not have reading glasses in the hospital. Patient had her own instructor creeler that she follows at [facility]. Ophthalmologists recommended follow-up with instructor creeler at [facility] as outpatient after discharge. Psychiatrist seen and evaluated the patient and diagnosed patient with encephalopathy and agitation. Reality orientation provided. Patient started on Seroquel on as needed basis. Snipper closely followed. Supplemental oxygen provided as needed to keep pulse oximetry above 90%. Pulmonary toilet was on standby as needed. DVT prophylaxis provided. Aspiration precautions maintained. Patient clinically improved. Blood sugar stable. No chest pain or shortness of breath. Hyperkalemia resolved. Acute renal failure resolved. Patient was stable for discharge home. Return ER precautions provided . FINAL DIAGNOSES: Diabetes ketoacidosis Diabetes mellitus out of control High anion gap metabolic acidosis NSTEMI Acute on chronic renal failure Hyperkalemia, resolved Dehydration SIRS Leukocytosis, resolved Anemia of chronic disease Encephalopathy Agitation Refractive error DISCHARGE MEDICATIONS: See Medication Reconciliation list. DISCHARGE INSTRUCTIONS: Patient was discharged home. Strict return ED precautions reinforced. I have been assigned to dictate discharge summary for this account. I was not involved in the patient's management. Eli Dominguez NP Dec 13, 2017 11:17
--- NOTE | 2017-12-15 14:17 | Diagnostic Imaging Report ---
APPROVED REPORT CPT Code: 93498 Present Symptoms Comments: Weakness BILATERAL: Imaging reveals a patent deep venous system bilaterally. There is no evidence of thrombus within the femoral, popliteal or tibial segments. The greater saphenous veins are also within normal limits. Doppler indicates normal spontaneous flow within these segments.
--- NOTE | 2017-12-21 13:53 | Cardiology Report ---
APPROVED REPORT EKG Measurement Heart [id number] ST abnormality Abnormal ECG
== END 2017-12-11 19:44 | disposition home or self-care (01) | DRG 420 ==
LOC: EDBD 00:58 → EMR 01:47 → ICU 02:24 → EDBEDREQ 02:33 → 2E 12-07 17:30
DX: E11.10 Type 2 diabetes mellitus with ketoacidosis without coma (principal); I21.4 Non-ST elevation (NSTEMI) myocardial infarction; N17.9 Acute kidney failure, unspecified; G92 Toxic encephalopathy; R65.10 Systemic inflammatory response syndrome (SIRS) of non-infectious origin without acute organ dysfunction; E87.5 Hyperkalemia; E83.42 Hypomagnesemia; E86.0 Dehydration; E78.5 Hyperlipidemia, unspecified; Z79.4 Long term (current) use of insulin; Z88.0 Allergy status to penicillin; Z91.14 Patient's other noncompliance with medication regimen; D63.8 Anemia in other chronic diseases classified elsewhere; I12.9 Hypertensive chronic kidney disease with stage 1 through stage 4 chronic kidney disease, or unspecified chronic kidney disease; E11.22 Type 2 diabetes mellitus with diabetic chronic kidney disease; N18.9 Chronic kidney disease, unspecified; R45.1 Restlessness and agitation
CPT/HCPCS: 36415; 36600; 71045; 78452; 80048; 80053; 80061; 80076; 81001; 82009; 82550; 82728; 82803; 82962; 82977; 83010; 83036; 83540; 83550; 83605; 83690; 83735; 83880; 84100; 84132; 84443; 84484; 84550; 85007; 85025; 85060; 85610; 85730; 86140; 87040; 87081; 87086; 93005; 93017; 93306; 93970; 99291; J1815; J2785; S5561

== ENCOUNTER 2020-03-31 14:05 | Inpatient (IN) | payer OTHER ==
[~2020-03-31] VITALS: Ht 167.6 cm; Wt 61.2 kg
[~2020-03-31 14:05] MED LIST: AMLODIPINE BESYL5 MG ORAL; ASPIRIN81 MG ORAL; ATORVASTATIN CA80 MG ORAL; BENAZEPRIL HCL40 MG ORAL; HUMALOG100 UNIT/4 SUBQ; LANTUS SOL100 UNIT/1 SUBQ; METFORMIN HCL500 M1 ORAL
[2020-03-31 14:30] VITALS: BP 137/85
[2020-03-31 15:24] LABS: HEMATOCRIT 38.1 % (37.0-47.0); HEMOGLOBIN 12.7 G/DL (12.0-16.0); MEAN CORPUSCULAR VOLUME 92 FL (80-99); PLATELET COUNT 380 K/UL (150-450); RED BLOOD COUNT 4.13 M/UL (4.20-5.40); RED CELL DISTRIBUTION WIDTH 12.6 % (11.6-14.8)
[2020-03-31 15:26] LABS: WHITE BLOOD COUNT 35.2 K/UL (4.8-10.8)
--- NOTE | 2020-03-31 15:44 | Diagnostic Imaging Report ---
Indication: Altered mental status, cough Technique: XRAY Chest 1v Comparison: 12/05/2017 Findings: Heart size and mediastinal contours stable. There is no definite focal airspace consolidation. Some peribronchial thickening is seen. No pleural effusion or pneumothorax. No acute osseous abnormality. IMPRESSION: Peribronchial thickening which may suggest small airway disease/bronchitis. Correlate clinically. No focal consolidation.
[2020-03-31 16:06] LABS: ANION GAP 9 mmol/L (5-15); BLOOD UREA NITROGEN 22 mg/dL (7-18); CALCIUM 9.2 MG/DL (8.5-10.1); CARBON DIOXIDE 27 MMOL/L (21-32); CHLORIDE 98 MMOL/L (98-107); CREATININE 1.1 MG/DL (0.55-1.30); POTASSIUM 4.9 MMOL/L (3.5-5.1); SODIUM 133 MMOL/L (136-145)
[2020-03-31 16:26] LABS: ALANINE AMINOTRANSFERASE 20 U/L (12-78); ALBUMIN/GLOBULIN RATIO 0.4 (1.0-2.7); ALKALINE PHOSPHATASE 180 U/L (46-116); ASPARTATE AMINO TRANSFERASE 32 U/L (15-37); BILIRUBIN,TOTAL 0.7 MG/DL (0.2-1.0); CKMB 2.7 NG/ML (0.0-3.6); CREATINE KINASE 505 U/L (26-308); LACTATE DEHYDROGENASE 325 U/L (81-234)
[2020-03-31 16:52] LABS: FERRITIN 616 NG/ML (8-388)
[2020-03-31 17:00] VITALS: BP 144/65
--- NOTE | 2020-03-31 17:15 | Diagnostic Imaging Report ---
EXAM: CT Head Without Intravenous Contrast CLINICAL HISTORY: AMS TECHNIQUE: Axial computed tomography images of the head/brain without intravenous contrast. CTDI is 53.40 mGy and DLP is 922.10 mGy-cm. One or more of the following dose reduction techniques were used: automated exposure control, adjustment of the mA and/or kV according to patient size, use of iterative reconstruction technique. COMPARISON: None FINDINGS: Brain: No acute infarct or hemorrhage identified. No extra-axial fluid collection. No mass effect or midline shift. Scattered areas of hypoattenuation in the supratentorial white matter likely represent chronic small vessel ischemic changes. Ventricles and sulci: Prominence of the ventricles and sulci is likely secondary to cerebral volume loss. Bones: Normal. No bony lesion or acute fracture. Subcutaneous tissues: Normal. Sinuses: Normal. No air-fluid levels or mucosal thickening. Mastoid air cells: Normal. Orbits: Grossly unremarkable. Other: Atherosclerotic calcifications in the intracranial vasculature. Cerumen in the external auditory canals. IMPRESSION: 1. No acute intracranial abnormality. 2. Mild chronic small vessel ischemic changes and cerebral volume loss.
[2020-03-31 17:20] LABS: APPEARANCE,URINE CLOUDY; BILIRUBIN, URINE 1+ (NEGATIVE); GLUCOSE, URINE (UA) 3+ (NEGATIVE); KETONES,URINE 2+ (NEGATIVE); LEUKOCYTE ESTERASE ,URINE 1+ (NEGATIVE); NITRITE,URINE NEGATIVE (NEGATIVE); PH,URINE 5 (4.5-8.0); PROTEIN,URINE 2+ (NEGATIVE); UROBILINOGEN,URINE 4 MG/DL (0.0-1.0)
[2020-03-31 17:27] LABS: COLOR,URINE YELLOW
--- NOTE | 2020-03-31 18:53 | History and Physical ---
History of Present Illness General Reason for Hospitalization: Altered Mental Status Present Illness HPI Mrs. Barroso is a 69-year-old female past medical history of diabetes mellitus who presents for altered mental status. Entire history obtained from discussion with the ED and chart review patient is currently altered and unable to provide any history. No family at bedside. Unable to reach family when I called her sister. Per ED physician patient was brought in by family from home and was found to be altered over the last week or so. No other information obtained at the time. Currently she is in mild distress and unable to answer any questions or follow commands. Initial work-up thus far in the ED shows tachycardia leukocytosis at 35. Lactic acidosis of 2.3. She will be admitted for altered mental status septic work-up. Medical history: Diabetes mellitus Family history: Unable to obtain due to patient's mental status Surgical history: Unable to obtain due to the patient's mental status Social history: Unable to obtain due to patient's mental status Allergies: Coded Allergies: PENICILLINS (Verified Allergy, Unknown, 12/05/17) COVID-19 Screening Contact w/high risk pt: No Experienced COVID-19 symptoms?: No Medication History Scheduled Amlodipine Besylate* (Amlodipine Besylate*), 5 MG ORAL DAILY, (Reported) Aspirin* (Aspirin*), 81 MG ORAL DAILY, (Reported) Atorvastatin Calcium* (Lipitor*), 80 MG ORAL BEDTIME, (Reported) Benazepril Hcl* (Benazepril Hcl*), 40 MG ORAL DAILY, (Reported) Insulin Glargine (Lantus), 20 UNITS SUBQ QHS, (Reported) Insulin Lispro (Humalog), 4 UNITS SUBQ THREE TIMES A DAY, (Reported) Metformin Hcl* (Metformin Hcl*), 500 MG ORAL TWICE A DAY, (Reported) Discontinued Medications Insulin Lispro (Humalog), 8 SUBQ BREAKFAST,LUNCH, (Reported) Discontinued Reason: Medication dose changed Patient History Healthcare decision maker Resuscitation status Advanced Directive on File Review of Systems ROS Narrative Unable to obtain full review of systems as patient is altered and unable to answer any questions at this time Physical Exam General Appearance: confused, moderate distress HEENT: normocephalic, atraumatic Neck: non-tender, supple Respiratory/Chest: lungs clear, normal breath sounds, no respiratory distress Cardiovascular/Chest: normal rate, regular rhythm, systolic murmur Abdomen: normal bowel sounds, non tender, soft Extremities: other - Left lower extremity heel ulcer, bilateral venous stasis, possible left lower extremity cellulitis Skin Exam: mottled Neurologic: roller stitcher II-XII grossly normal Musculoskeletal: normal muscle bulk Last 24 Hour Vital Signs Date Time Temp Pulse Resp B/P (MAP) Pulse Ox O2 Delivery O2 Flow Rate FiO2 03/31/20 14:30 106 18 Room Air 03/31/20 14:30 98.8 18 137/85 98 Room Air 03/31/20 13:59 98.8 106 18 137/85 (102) 98 Room Air Laboratory Tests Test 03/31/20 14:58 03/31/20 16:51 03/31/20 17:59 White Blood Count 35.2 K/UL (4.8-10.8) *H Red Blood Count 4.13 M/UL (4.20-5.40) L Hemoglobin 12.7 G/DL (12.0-16.0) Hematocrit 38.1 % (37.0-47.0) Mean Corpuscular Volume 92 FL (80-99) Mean Corpuscular Hemoglobin 30.7 PG (27.0-31.0) Mean Corpuscular Hemoglobin Concent 33.3 G/DL (32.0-36.0) Red Cell Distribution Width 12.6 % (11.6-14.8) Platelet Count 380 K/UL (150-450) Mean Platelet Volume 6.9 FL (6.5-10.1) Neutrophils (%) (Auto) % (45.0-75.0) Lymphocytes (%) (Auto) % (20.0-45.0) Monocytes (%) (Auto) % (1.0-10.0) Eosinophils (%) (Auto) % (0.0-3.0) Basophils (%) (Auto) % (0.0-2.0) Differential Total Cells Counted 100 Neutrophils % (Manual) 83 % (45-75) H Lymphocytes % (Manual) 7 % (20-45) L Monocytes % (Manual) 10 % (1-10) Eosinophils % (Manual) 0 % (0-3) Basophils % (Manual) 0 % (0-2) Band Neutrophils 0 % (0-8) Platelet Estimate Adequate Platelet Morphology Normal Red Blood Cell Morphology Normal Prothrombin Time 11.3 SEC (9.30-11.50) Prothromb Time International Ratio 1.0 (0.9-1.1) Activated Partial Thromboplast Time 27 SEC (23-33) D-Dimer 4.56 mg/L FEU (0.00-0.49) H Sodium Level 133 MMOL/L (136-145) L Potassium Level 4.9 MMOL/L (3.5-5.1) Chloride Level 98 MMOL/L (98-107) Carbon Dioxide Level 27 MMOL/L (21-32) Anion Gap 9 mmol/L (5-15) Blood Urea Nitrogen 22 mg/dL (7-18) H Creatinine 1.1 MG/DL (0.55-1.30) Estimat Glomerular Filtration Rate 59.8 mL/min (>60) Glucose Level 220 MG/DL (74-106) H Lactic Acid Level 2.30 mmol/L (0.4-2.0) H Pending Calcium Level 9.2 MG/DL (8.5-10.1) Ferritin 616 NG/ML (8-388) H Total Bilirubin 0.7 MG/DL (0.2-1.0) Aspartate Amino Transf (AST/SGOT) 32 U/L (15-37) Alanine Aminotransferase (ALT/SGPT) 20 U/L (12-78) Alkaline Phosphatase 180 U/L (46-116) H Lactate Dehydrogenase 325 U/L (81-234) H Total Creatine Kinase 505 U/L (26-308) H Creatine Kinase MB 2.7 NG/ML (0.0-3.6) Creatine Kinase MB Relative Index 0.5 Troponin I 0.000 ng/mL (0.000-0.056) C-Reactive Protein, Quantitative < 0.4 mg/dL (0.00-0.90) Pro-B-Type Natriuretic Peptide 640 pg/mL (0-125) H Total Protein 7.7 G/DL (6.4-8.2) Albumin 2.0 G/DL (3.4-5.0) L Globulin 5.7 g/dL Albumin/Globulin Ratio 0.4 (1.0-2.7) L Lipase 39 U/L (73-393) L Urine Color Yellow Urine Appearance Cloudy Urine pH 5 (4.5-8.0) Urine Specific [place] 1.020 (1.005-1.035) Urine Protein 2+ (NEGATIVE) H Urine Glucose (UA) 3+ (NEGATIVE) H Urine Ketones 2+ (NEGATIVE) H Urine Blood Negative (NEGATIVE) Urine Nitrite Negative (NEGATIVE) Urine Bilirubin 1+ (NEGATIVE) H Urine Ictotest Negative (NEGATIVE) Urine Urobilinogen 4 MG/DL (0.0-1.0) H Urine Leukocyte Esterase 1+ (NEGATIVE) H Urine RBC 0-2 /HPF (0 - 2) Urine WBC 5-10 /HPF (0 - 2) H Urine Squamous Epithelial Cells Many /LPF (NONE/OCC) H Urine Bacteria Moderate /HPF (NONE) H Microbiology Date/Time Source Procedure Growth Status 03/31/20 14:55 Nasopharynx SARS-CoV-2 RdRp Gene Assay - Final Complete Height (Feet): 5 Height (Inches): 6.00 Weight (Pounds): 145 Assessment/Plan Assessment/Plan: Mrs. Barroso is a 69-year-old female with possible history of diabetes mellitus is presenting for acute encephalopathy. A: #Acute encephalopathy likely secondary to infectious etiology versus toxic metabolic #Sepsis with UTI, cellulitis, foot ulcer source, possible osteomyelitis of the left lower extremity #UTI #Left lower extremity heel ulcer w/ possible osteomyelitis #Left lower extremity cellulitis #Bilateral lower extremity venous dermatitis #Bilateral lower extremity edema #Lactic acidosis #Diabetes mellitus #Essential hypertension P: Currently hemodynamically stable, status post IV bolus resuscitation Saturating well on room air, keep saturation greater than 92% We will start broad spec antibiotics with vancomycin and Zosyn Follow-up urinary cultures, blood cultures, MRSA screen, wound culture Covid negative We will get XRAY of lower extremity to rule out osteomyelitis We will get bilateral venous ultrasound to rule out DVTs as patient had positive Homans' sign, D-dimer will be not useful in this clinical situation Follow-up echocardiography for loud systolic murmur to work-up EF, wall motion abnormalities, valvular function, RSVP CT negative for acute pathology, showing chronic microischemic changes Chest x-ray negative for focal consolidations, possible bronchitis Repeat lactic acid We will start Levemir 0.2 mg/kg Start moderate insulin sliding scale, reassess daily insulin requirements Blood glucose goal is 140-180 Follow-up A1c Continue home Lipitor, amlodipine, lisinopril Wound consult Consult Dr. Alamo, general surgery, recs appreciated Consult Dr. Ernst, ID, recs appreciated Code: Full, will need to discuss further with family or patient as when she gets better Diet: Diabetic Fluids: NS 75 DVT prophylaxis: Lovenox 40 mg daily Dispo: Work-up of acute encephalopathy, infectious etiologies In addition to the usual care above I spent additional time reviewing records in the EMR and paper charts including physician documentation, nursing documentation, lab results, imaging and clinical documentation. Total time included was 35 min. Time spent on this encounter was 85 minutes which included 45 minutes of counseling and care coordination. I discussed with the nurse at bedside. Time of note may not reflect time patient was seen. Chintan Arrieta D.O Mar 31, 2020 18:53
[2020-03-31] MEDS ORDERED: Milk of Magnesia 30ml Ud ORAL PRN (19:00)
[2020-03-31] MEDS ORDERED: Mylanta II UD 30ml ORAL PRN (19:00)
[2020-03-31] MEDS ORDERED: Albuterol/Ipratropium 3ml neb HHN PRN (19:00)
--- NOTE | 2020-03-31 19:50 | Emergency Room Report ---
History of Present Illness General Chief Complaint: Altered Mental Status Source: Family Member, EMS Present Illness HPI 69-year-old female presents to ED for increased lethargy. Brought in by EMS from home. Sister at bedside states that patient has been eating less than usual since the weekend. Has been more lethargic for the last few days. States that this happens sometimes when she refuses to eat. No reported fevers or chills. No nausea or vomiting. No other aggravating relieving factors. No other associated symptoms Allergies: Coded Allergies: PENICILLINS (Verified Allergy, Unknown, 12/05/17) COVID-19 Screening Contact w/high risk pt: No Experienced COVID-19 symptoms?: No COVID-19 Testing performed [employer]: No Patient History Past Medical History: HTN, dementia Past Surgical History: none Pertinent Family History: none Social History: Denies: smoking, alcohol use, drug use Now: No Immunizations: UTD Reviewed Nursing Documentation: PMH: Agreed; PSxH: Agreed Nursing Documentation-PMH Hx Hypertension: Yes Hx Diabetes: Yes Hx Neurological Problems: Yes - DEMENTIA Review of Systems All Other Systems: limited Physical Exam Vital Signs Date Time Temp Pulse Resp B/P (MAP) Pulse Ox O2 Delivery O2 Flow Rate FiO2 03/31/20 13:59 98.8 106 18 137/85 (102) 98 Room Air Sp02 EP Interpretation: reviewed, normal General Appearance: no apparent distress, non-toxic, lethargic Head: normocephalic, atraumatic Eyes: bilateral eye normal inspection, bilateral eye PERRL ENT: hearing grossly normal, normal pharynx, no angioedema, normal voice Neck: full range of motion, supple/symm/no masses Respiratory: chest non-tender, lungs clear, normal breath sounds, speaking full sentences Cardiovascular #1: regular rate, rhythm, no edema Cardiovascular #2: 2+ carotid (R), 2+ carotid (L), 2+ radial (R), 2+ radial (L), 2+ dorsalis pedis (R), 2+ dorsalis pedis (L) Gastrointestinal: normal bowel sounds, non tender, soft, non-distended, no guarding, no rebound Rectal: deferred Genitourinary: normal inspection, no CVA tenderness Musculoskeletal: back normal, gait/station normal, non-tender Neurologic: other - Lethargic Psychiatric: other - Lethargic Reflexes: 3+ bicep (R), 3+ bicep (L), 3+ tricep (R), 3+ tricep (L), 3+ knee (R), 3+ knee (L) Skin: other - See nursing notes Lymphatic: no adenopathy Procedures Critical Care Time Critical Care Time i. I feel this is a highly complex case requiring extensive working including EKG/Rhythm strip, Xray/CT/US, Blood/urine lab work, repeat exams while in ED, and administration of strong opiates/narcotics for pain control, admission to hospital or close patient follow up. Total time: 45 min bedside evaluation and treatment excludes procedures (EKG). Reason for critical care: Sepsis, leukocytosis, altered level of consciousness Possible complications: hypotension, hypertension, TN, shock, arrhythmias, metabolic acidosis, end organ damage, respiratory failure. Interventions: Labs, IV fluids, EKG, chest x-ray, CT head,Covid swab, broad- spectrum antibiotics, discussion with family Course: Presenting with increased altered level of consciousness. CT head negative. Significant leukocytosis. Has UTI. Lactic elevated. Chest x-ray no focal consolidation. Covid negative. Given 30 cc/kg fluid bolus. Given broad- spectrum antibiotics. Patient is more alert and oriented after IV hydration. Consultations: nursing staff, EMS, family Performed by: Dr Schuster Tolerated well condition = serious j. because of unstable vital signs this patient had a condition that could potentially threaten life or limb. I feel this is a critical patient who required my full attention while patient was considered critical. Total Critical Care Time excluding procedures was greater than 45 minutes Medical Decision Making Diagnostic Impression: Primary Impression: Altered mental status Qualified Codes: R41.82 - Altered mental status, unspecified Additional Impressions: Sepsis Qualified Codes: A41.9 - Sepsis, unspecified organism UTI (urinary tract infection) Qualified Codes: N39.0 - Urinary tract infection, site not specified; R31.9 - Hematuria, unspecified ER Course Hospital Course 69-year-old female presents with increased lethargy Differential diagnoses include: Pneumonia, UTI, sepsis, dehydration, TN/unstable angina Clinical course Patient placed on stretcher. On engine monitor with stable vitals are ED course. After initial history and physical, I ordered labs, IV fluids, EKG, chest x-ray, blood cultures, UA. Labs -electrolytes okay, significant leukocytosis, troponins negative, lactic positive UA grossly positive for UTI Covid negative CXR - no acute process EKGnormal sinus rhythm T wave inversions lateral leads CT head no acute process Given 30 cc/kg fluid bolus. Given broad-spectrum antibiotics. Pain patient becoming more alert and oriented after hydration. Case discussed with Dr Ochoa and they agreed to admit patient to their service for further care and support I feel this is a highly complex case requiring extensive working including EKG/Rhythm strip, Xray/CT/US, Blood/urine lab work, repeat exams while in ED, and administration of strong opiates/narcotics for pain control, admission to hospital or close patient follow up. Diagnosis - AMS, sepsis, UTI Patient admitted to telemetry in serious condition Laboratory Tests Test 03/31/20 14:58 03/31/20 16:51 03/31/20 17:59 White Blood Count 35.2 K/UL (4.8-10.8) *H Red Blood Count 4.13 M/UL (4.20-5.40) L Hemoglobin 12.7 G/DL (12.0-16.0) Hematocrit 38.1 % (37.0-47.0) Mean Corpuscular Volume 92 FL (80-99) Mean Corpuscular Hemoglobin 30.7 PG (27.0-31.0) Mean Corpuscular Hemoglobin Concent 33.3 G/DL (32.0-36.0) Red Cell Distribution Width 12.6 % (11.6-14.8) Platelet Count 380 K/UL (150-450) Mean Platelet Volume 6.9 FL (6.5-10.1) Neutrophils (%) (Auto) % (45.0-75.0) Lymphocytes (%) (Auto) % (20.0-45.0) Monocytes (%) (Auto) % (1.0-10.0) Eosinophils (%) (Auto) % (0.0-3.0) Basophils (%) (Auto) % (0.0-2.0) Differential Total Cells Counted 100 Neutrophils % (Manual) 83 % (45-75) H Lymphocytes % (Manual) 7 % (20-45) L Monocytes % (Manual) 10 % (1-10) Eosinophils % (Manual) 0 % (0-3) Basophils % (Manual) 0 % (0-2) Band Neutrophils 0 % (0-8) Platelet Estimate Adequate Platelet Morphology Normal Red Blood Cell Morphology Normal Prothrombin Time 11.3 SEC (9.30-11.50) Prothromb Time International Ratio 1.0 (0.9-1.1) Activated Partial Thromboplast Time 27 SEC (23-33) D-Dimer 4.56 mg/L FEU (0.00-0.49) H Sodium Level 133 MMOL/L (136-145) L Potassium Level 4.9 MMOL/L (3.5-5.1) Chloride Level 98 MMOL/L (98-107) Carbon Dioxide Level 27 MMOL/L (21-32) Anion Gap 9 mmol/L (5-15) Blood Urea Nitrogen 22 mg/dL (7-18) H Creatinine 1.1 MG/DL (0.55-1.30) Estimat Glomerular Filtration Rate 59.8 mL/min (>60) Glucose Level 220 MG/DL (74-106) H Lactic Acid Level 2.30 mmol/L (0.4-2.0) H 1.90 mmol/L (0.66-2.22) Calcium Level 9.2 MG/DL (8.5-10.1) Ferritin 616 NG/ML (8-388) H Total Bilirubin 0.7 MG/DL (0.2-1.0) Aspartate Amino Transf (AST/SGOT) 32 U/L (15-37) Alanine Aminotransferase (ALT/SGPT) 20 U/L (12-78) Alkaline Phosphatase 180 U/L (46-116) H Lactate Dehydrogenase 325 U/L (81-234) H Total Creatine Kinase 505 U/L (26-308) H Creatine Kinase MB 2.7 NG/ML (0.0-3.6) Creatine Kinase MB Relative Index 0.5 Troponin I 0.000 ng/mL (0.000-0.056) C-Reactive Protein, Quantitative < 0.4 mg/dL (0.00-0.90) Pro-B-Type Natriuretic Peptide 640 pg/mL (0-125) H Total Protein 7.7 G/DL (6.4-8.2) Albumin 2.0 G/DL (3.4-5.0) L Globulin 5.7 g/dL Albumin/Globulin Ratio 0.4 (1.0-2.7) L Lipase 39 U/L (73-393) L Urine Color Yellow Urine Appearance Cloudy Urine pH 5 (4.5-8.0) Urine Specific Patrick 1.020 (1.005-1.035) Urine Protein 2+ (NEGATIVE) H Urine Glucose (UA) 3+ (NEGATIVE) H Urine Ketones 2+ (NEGATIVE) H Urine Blood Negative (NEGATIVE) Urine Nitrite Negative (NEGATIVE) Urine Bilirubin 1+ (NEGATIVE) H Urine Ictotest Negative (NEGATIVE) Urine Urobilinogen 4 MG/DL (0.0-1.0) H Urine Leukocyte Esterase 1+ (NEGATIVE) H Urine RBC 0-2 /HPF (0 - 2) Urine WBC 5-10 /HPF (0 - 2) H Urine Squamous Epithelial Cells Many /LPF (NONE/OCC) H Urine Bacteria Moderate /HPF (NONE) H EKG Diagnostic Results Troponin ordered: Yes Rate: normal Rhythm: NSR ST Segments: other - tWave inversions in lateral leads ASA given to the pt in ED: No Rhythm Strip Diag. Results EP Interpretation: yes Rhythm: NSR, no PVC's, no ectopy Chest X-Ray Diagnostic Results Chest X-Ray Diagnostic Results : Chest X-Ray Ordered: Yes # of Views/Limited/Complete: 1 View Indication: Other EP Interpretation: Yes Interpretation: no consolidation, no effusion, no pneumothorax, no acute cardiopulmonary disease Impression: No acute disease Electronically Signed by: Electronically signed by Lul Schuster MD CT/MRI/US Diagnostic Results CT/MRI/US Diagnostic Results : Imaging Test Ordered: CT head Impression Procedure: CT Head no Contrast EXAM: CT Head Without Intravenous Contrast CLINICAL HISTORY: AMS TECHNIQUE: Axial computed tomography images of the head/brain without intravenous contrast. CTDI is 53.40 mGy and DLP is 922.10 mGy-cm. One or more of the following dose reduction techniques were used: automated exposure control, adjustment of the mA and/or kV according to patient size, use of iterative reconstruction technique. COMPARISON: None FINDINGS: Brain: No acute infarct or hemorrhage identified. No extra-axial fluid collection. No mass effect or midline shift. Scattered areas of hypoattenuation in the supratentorial white matter likely represent chronic small vessel ischemic changes. Ventricles and sulci: Prominence of the ventricles and sulci is likely secondary to cerebral volume loss. Bones: Normal. No bony lesion or acute fracture. Subcutaneous tissues: Normal. Sinuses: Normal. No air-fluid levels or mucosal thickening. Mastoid air cells: Normal. Orbits: Grossly unremarkable. Other: Atherosclerotic calcifications in the intracranial vasculature. Cerumen in the external auditory canals. IMPRESSION: 1. No acute intracranial abnormality. 2. Mild chronic small vessel ischemic changes and cerebral volume loss. Last Vital Signs Date Time Temp Pulse Resp B/P (MAP) Pulse Ox O2 Delivery O2 Flow Rate FiO2 03/31/20 17:00 98.8 100 18 144/65 99 Room Air Status: improved Disposition: ADMITTED INPATIENT Condition: Serious Referrals: Reji CUADRA,REFERRING (PCP) Lul Schuster MD Mar 31, 2020 19:50
[2020-03-31] MEDS: NovoLOG Insulin Flexpen SUBQ SCH (22:04)
[2020-03-31] MEDS: Enoxaparin 40mg Inj SUBQ SCH (22:05)
[2020-03-31] MEDS: Atorvastatin 80mg tab ORAL SCH (22:06)
[2020-03-31] MEDS: Piperacillin/Tazobactam 3.375 GM in NS 110 ML IVPB SCH (22:08)
[2020-03-31] MEDS: Levemir Flexpen SUBQ SCH (22:09)
[2020-04-01] VITALS: BP 129/69
[2020-04-01] MEDS: Vancomycin 500 MG in NS 110 ML IVPB SCH ×2 (01:58→13:06)
[2020-04-01 04:00] VITALS: BP 129/69
[2020-04-01] MEDS: Piperacillin/Tazobactam 3.375 GM in NS 110 ML IVPB SCH ×3 (05:40→21:49)
[2020-04-01] MEDS: NovoLOG Insulin Flexpen SUBQ SCH ×4 (05:40→20:23)
[2020-04-01 07:17] LABS: ANION GAP 7 mmol/L (5-15); BLOOD UREA NITROGEN 16 mg/dL (7-18); CALCIUM 8.1 MG/DL (8.5-10.1); CARBON DIOXIDE 29 MMOL/L (21-32); CHLORIDE 103 MMOL/L (98-107); CREATININE 0.9 MG/DL (0.55-1.30); POTASSIUM 3.8 MMOL/L (3.5-5.1); SODIUM 139 MMOL/L (136-145)
[2020-04-01 07:22] LABS: CHOLESTEROL 115 MG/DL (< 200); HDL CHOLESTEROL 31 MG/DL (40-60); PHOSPHORUS 2.8 MG/DL (2.5-4.9); TRIGLYCERIDES 79 MG/DL (30-150)
[2020-04-01 07:29] LABS: HEMATOCRIT 32.1 % (37.0-47.0); HEMOGLOBIN 10.9 G/DL (12.0-16.0); MEAN CORPUSCULAR VOLUME 91 FL (80-99); PLATELET COUNT 391 K/UL (150-450); RED BLOOD COUNT 3.52 M/UL (4.20-5.40); RED CELL DISTRIBUTION WIDTH 13.2 % (11.6-14.8)
[2020-04-01 07:34] LABS: WHITE BLOOD COUNT 31.6 K/UL (4.8-10.8)
[2020-04-01 08:00] VITALS: BP 137/48
[2020-04-01] MEDS: Aspirin Baby 81mg ORAL SCH (08:47)
--- NOTE | 2020-04-01 10:47 | General Progress Note ---
Subjective Constitutional: Denies: no symptoms, chills, diaphoresis, fever, malaise, weakness, other HEENT: Denies: no symptoms, eye pain, blurred vision, tearing, double vision, ear pain, ear discharge, nose pain, nose congestion, throat pain, throat swelling, mouth pain, mouth swelling, other Cardiovascular: Denies: no symptoms, chest pain, edema, irregular heart rate, lightheadedness, palpitations, syncope, other Respiratory: Denies: no symptoms, cough, orthopnea, shortness of breath, SOB with excertion, SOB at rest, sputum, stridor, wheezing, other Gastrointestinal/Abdominal: Denies: no symptoms, abdomen distended, abdominal pain, black stools, tarry stools, blood in stool, constipated, diarrhea, difficulty swallowing, nausea, poor appetite, poor fluid intake, rectal bleeding, vomiting, other Genitourinary: Denies: no symptoms, burning, discharge, frequency, flank pain, hematuria, incontinence, pain, urgency, other Neurologic/Psychiatric: Denies: no symptoms, anxiety, depressed, emotional problems, headache, numbness, paresthesia, pre-existing deficit, seizure, tingling, tremors, weakness, other Endocrine: Denies: no symptoms, excessive sweating, flushing, intolerance to cold, intolerance to heat, increased hunger, increased thirst, increased urine, unexplained weight gain, unexplained weight loss, other Hematologic/Lymphatic: Denies: no symptoms, anemia, easy bleeding, easy bruising, other Allergies: Coded Allergies: PENICILLINS (Verified Allergy, Unknown, 12/05/17) Subjective no acute events overngiht. Patient more alert this morning. Able to answer some questions but became apprehensive to answer many of them. No fevers. Objective Last 24 Hour Vital Signs Date Time Temp Pulse Resp B/P (MAP) Pulse Ox O2 Delivery O2 Flow Rate FiO2 04/01/20 08:47 137/48 04/01/20 08:47 100 137/48 04/01/20 08:00 96.9 100 18 137/48 (77) 98 04/01/20 08:00 101 04/01/20 04:00 97 04/01/20 04:00 97.0 99 20 129/69 (89) 95 04/01/20 00:00 99 04/01/20 00:00 97.0 99 20 129/69 (89) 95 03/31/20 21:19 98.8 100 18 144/65 99 Room Air 03/31/20 17:00 98.8 100 18 144/65 99 Room Air 03/31/20 14:30 106 18 Room Air 03/31/20 14:30 98.8 18 137/85 98 Room Air 03/31/20 13:59 98.8 106 18 137/85 (102) 98 Room Air Intake and Output 03/31/20 04/01/20 19:00 07:00 Intake Total 100 ml Balance 100 ml Intake Oral 100 ml # Voids 1 Laboratory Tests 03/31/20 14:58: White Blood Count 35.2*H, Red Blood Count 4.13L, Hemoglobin 12.7, Hematocrit 38.1, Mean Corpuscular Volume 92, Mean Corpuscular Hemoglobin 30.7, Mean Corpuscular Hemoglobin Concent 33.3, Red Cell Distribution Width 12.6, Platelet Count 380, Mean Platelet Volume 6.9, Neutrophils (%) (Auto) , Lymphocytes (%) (Auto) , Monocytes (%) (Auto) , Eosinophils (%) (Auto) , Basophils (%) (Auto) , Differential Total Cells Counted 100, Neutrophils % (Manual) 83H, Lymphocytes % (Manual) 7L, Monocytes % (Manual) 10, Eosinophils % (Manual) 0, Basophils % (Manual) 0, Band Neutrophils 0, Platelet Estimate Adequate, Platelet Morphology Normal, Red Blood Cell Morphology Normal, Erythrocyte Sedimentation Rate 63H, Prothrombin Time 11.3, Prothromb Time International Ratio 1.0, Activated Partial Thromboplast Time 27, D-Dimer 4.56H, Sodium Level 133L, Potassium Level 4.9, Chloride Level 98, Carbon Dioxide Level 27, Anion Gap 9, Blood Urea Nitrogen 22H , Creatinine 1.1, Estimat Glomerular Filtration Rate 59.8, Glucose Level 220H, Lactic Acid Level 2.30H, Calcium Level 9.2, Ferritin 616H, Total Bilirubin 0.7, Aspartate Amino Transf (AST/SGOT) 32, Alanine Aminotransferase (ALT/SGPT) 20, Alkaline Phosphatase 180H, Lactate Dehydrogenase 325H, Total Creatine Kinase 505 H, Creatine Kinase MB 2.7, Creatine Kinase MB Relative Index 0.5, Troponin I 0.000, C-Reactive Protein, Quantitative < 0.4, Pro-B-Type Natriuretic Peptide 640H, Total Protein 7.7, Albumin 2.0L, Globulin 5.7, Albumin/Globulin Ratio 0.4L , Lipase 39L 03/31/20 16:51: Urine Color Yellow, Urine Appearance Cloudy, Urine pH 5, Urine Specific [place] 1.020, Urine Protein 2+H, Urine Glucose (UA) 3+H, Urine Ketones 2+H, Urine Blood Negative, Urine Nitrite Negative, Urine Bilirubin 1+H, Urine Ictotest Negative, Urine Urobilinogen 4H, Urine Leukocyte Esterase 1+H, Urine RBC 0-2, Urine WBC 5- 10H, Urine Squamous Epithelial Cells ManyH, Urine Bacteria ModerateH 03/31/20 17:59: Lactic Acid Level 1.90 03/31/20 22:01: POC Whole Blood Glucose 237H 04/01/20 04:58: POC Whole Blood Glucose 98 04/01/20 05:09: White Blood Count 31.6*H, Red Blood Count 3.52L, Hemoglobin 10.9L, Hematocrit 32.1L, Mean Corpuscular Volume 91, Mean Corpuscular Hemoglobin 30.9, Mean Corpuscular Hemoglobin Concent 33.8, Red Cell Distribution Width 13.2, Platelet Count 391, Mean Platelet Volume 6.9, Neutrophils (%) (Auto) , Lymphocytes (%) (Auto) , Monocytes (%) (Auto) , Eosinophils (%) (Auto) , Basophils (%) (Auto) , Differential Total Cells Counted 100, Neutrophils % (Manual) 74, Lymphocytes % (Manual) 16L, Monocytes % (Manual) 10, Eosinophils % (Manual) 0, Basophils % (Manual) 0, Band Neutrophils 0, Platelet Estimate Adequate, Platelet Morphology Normal, Red Blood Cell Morphology Normal, Sodium Level 139, Potassium Level 3.8, Chloride Level 103, Carbon Dioxide Level 29, Anion Gap 7, Blood Urea Nitrogen 16, Creatinine 0.9, Estimat Glomerular Filtration Rate > 60, Glucose Level 98#, Hemoglobin A1c 11.2H, Calcium Level 8.1L, Phosphorus Level 2.8, Magnesium Level 1.4L, C-Reactive Protein, Quantitative 28.9H, Triglycerides Level 79, Cholesterol Level 115, LDL Cholesterol 59, HDL Cholesterol 31L, Cholesterol/HDL Ratio 3.7, Thyroid Stimulating Hormone (TSH) 1.441 Height (Feet): 5 Height (Inches): 6.00 Weight (Pounds): 135 General Appearance: no apparent distress, alert, confused EENT: PERRL/EOMI Neck: non-tender, supple Cardiovascular: normal rate, regular rhythm, no JVD Respiratory/Chest: lungs clear, normal breath sounds, respiratory distress Abdomen: non tender, soft, no mass Extremities: non-tender, other - left foot stage 4 pressure ulcer 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 Barroso is a 69-year-old female with possible history of diabetes mellitus is presenting for acute encephalopathy. A: #Acute encephalopathy likely secondary to infectious etiology versus toxic metabolic #Sepsis with UTI, cellulitis, foot ulcer source, possible osteomyelitis of the left lower extremity #UTI #Left lower extremity heel ulcer w/ possible osteomyelitis #Left lower extremity cellulitis #Bilateral lower extremity venous dermatitis #Bilateral lower extremity edema #Lactic acidosis #Diabetes mellitus uncontrolled; A1c 11.2 #Essential hypertension P: Currently hemodynamically stable, status post IV bolus resuscitation Saturating well on room air, keep saturation greater than 92% continue broad spec antibiotics with vancomycin and Zosyn Follow-up urinary cultures, blood cultures, MRSA screen, wound culture - ESR elevated We will get XRAY of lower extremity to rule out osteomyelitis We will get bilateral venous ultrasound to rule out DVTs as patient had positive Homans' sign, D-dimer will be not useful in this clinical situation Follow-up echocardiography for loud systolic murmur to work-up EF, wall motion abnormalities, valvular function, RSVP Repeat lactic acid normalized We will start Levemir 0.2 mg/kg Start moderate insulin sliding scale, reassess daily insulin requirements Blood glucose goal is 140-180 Continue home Lipitor, amlodipine, lisinopril Wound consult Consult Dr. Alamo, general surgery, recs appreciated Consult Dr. Ernst, ID, recs appreciated Code: Full, will need to discuss further with family or patient as when she gets better Diet: Diabetic Fluids: NS 75 DVT prophylaxis: Lovenox 40 mg daily Dispo: Work-up of acute encephalopathy, infectious etiologies Time spent on this encounter was 45 minutes which included 25 minutes of counseling and care coordination. I discussed with the nurse at bedside. Time of note may not reflect time patient was seen. Chintan Arrieta D.O Apr 01, 2020 10:47
[2020-04-01 12:00] VITALS: BP 97/43
--- NOTE | 2020-04-01 12:43 | Consultation ---
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 On admission patient was identified to have significant concerns in her lower extremities and sacrum as well as low BMI and abnormal labs. Surgery was called to evaluate and assist with care. Patient seen, patient evaluated, chart reviewed. Patient is awake alert and currently eating her food by herself. Though does not look like she is eating much. She is responsive. No nausea vomiting fever or chills. Allergies: Coded Allergies: PENICILLINS (Verified Allergy, Unknown, 12/05/17) COVID-19 Screening Contact w/high risk pt: No Experienced COVID-19 symptoms?: No Medication History Scheduled Amlodipine Besylate* (Amlodipine Besylate*), 5 MG ORAL DAILY, (Reported) Aspirin* (Aspirin*), 81 MG ORAL DAILY, (Reported) Atorvastatin Calcium* (Lipitor*), 80 MG ORAL BEDTIME, (Reported) Benazepril Hcl* (Benazepril Hcl*), 40 MG ORAL DAILY, (Reported) Insulin Glargine (Lantus), 20 UNITS SUBQ QHS, (Reported) Insulin Lispro (Humalog), 4 UNITS SUBQ THREE TIMES A DAY, (Reported) Metformin Hcl* (Metformin Hcl*), 500 MG ORAL TWICE A DAY, (Reported) Discontinued Medications Insulin Lispro (Humalog), 8 SUBQ BREAKFAST,LUNCH, (Reported) Discontinued Reason: Medication dose changed Patient History Limited by: medical condition History Provided By: Medical Record, PMD Healthcare decision maker Resuscitation status Advanced Directive on File Past Medical/Surgical History Past Medical/Surgical History: (1) Hyperkalemia (2) Leukocytosis (3) High anion gap metabolic acidosis (4) Diabetes mellitus out of control (5) NSTEMI (non-ST elevated myocardial infarction) (6) Acute on chronic renal failure (7) Sepsis (8) UTI (urinary tract infection) (9) Altered mental status Review of Systems Review of Symptoms General ROS: no weight loss or fever Psychological ROS: no depression or mood changes, no memory loss Ophthalmic ROS: no visual changes or eye irritation ENT ROS: no nasal congestion, hearing loss, dizziness Allergy and Immunology ROS: no allergic symptoms or urticaria Hematological and Lymphatic ROS: no swollen glands, unusual bleeding or bruising Endocrine ROS: no polyuria, polydipsia, weight changes, temperature intolerance Respiratory ROS: no cough, shortness of breath, or wheezing Cardiovascular ROS: no chest pain or dyspnea on exertion Gastrointestinal ROS: denies abdominal pain, bright red blood in stool. Musculoskeletal ROS: no myalgias or arthralgias Neurological ROS: no TIA or stroke symptoms Dermatological ROS: no new or changing skin lesions, rashes or pruritis Limited given medical condition Physical Exam Physical Exam General appearance: alert, cooperative, no distress, appears stated age Head: Normocephalic, without obvious abnormality, atraumatic Eyes: conjunctivae/corneas clear. PERRL, EOM's intact. Fundi benign Throat: Lips, mucosa, and tongue normal. Teeth and gums normal Neck: supple, symmetrical, trachea midline, no adenopathy, thyroid: not enlarged, symmetric, no tenderness/mass/nodules, no carotid bruit and no JVD Lungs: clear to auscultation bilaterally Heart: regular rate and rhythm, S1, S2 normal, no murmur, click, rub or gallop Abdomen: soft, non-tender. Bowel sounds normal. No masses, no organomegaly Extremities: extremities see below normal, atraumatic, no cyanosis or edema Pulses: 2+ and symmetric Skin: Skin co see below Neurologic: Grossly normal Last 24 Hour Vital Signs Date Time Temp Pulse Resp B/P (MAP) Pulse Ox O2 Delivery O2 Flow Rate FiO2 04/01/20 08:47 137/48 04/01/20 08:47 100 137/48 04/01/20 08:00 96.9 100 18 137/48 (77) 98 04/01/20 08:00 101 04/01/20 04:00 97 04/01/20 04:00 97.0 99 20 129/69 (89) 95 04/01/20 00:00 99 04/01/20 00:00 97.0 99 20 129/69 (89) 95 03/31/20 21:19 98.8 100 18 144/65 99 Room Air 03/31/20 17:00 98.8 100 18 144/65 99 Room Air 03/31/20 14:30 106 18 Room Air 03/31/20 14:30 98.8 18 137/85 98 Room Air 03/31/20 13:59 98.8 106 18 137/85 (102) 98 Room Air Intake and Output 03/31/20 04/01/20 19:00 07:00 Intake Total 100 ml Balance 100 ml Intake Oral 100 ml # Voids 1 Laboratory Tests Test 03/31/20 14:58 03/31/20 16:51 03/31/20 17:59 03/31/20 22:01 White Blood Count 35.2 K/UL (4.8-10.8) *H Red Blood Count 4.13 M/UL (4.20-5.40) L Hemoglobin 12.7 G/DL (12.0-16.0) Hematocrit 38.1 % (37.0-47.0) Mean Corpuscular Volume 92 FL (80-99) Mean Corpuscular Hemoglobin 30.7 PG (27.0-31.0) Mean Corpuscular Hemoglobin Concent 33.3 G/DL (32.0-36.0) Red Cell Distribution Width 12.6 % (11.6-14.8) Platelet Count 380 K/UL (150-450) Mean Platelet Volume 6.9 FL (6.5-10.1) Neutrophils (%) (Auto) % (45.0-75.0) Lymphocytes (%) (Auto) % (20.0-45.0) Monocytes (%) (Auto) % (1.0-10.0) Eosinophils (%) (Auto) % (0.0-3.0) Basophils (%) (Auto) % (0.0-2.0) Differential Total Cells Counted 100 Neutrophils % (Manual) 83 % (45-75) H Lymphocytes % (Manual) 7 % (20-45) L Monocytes % (Manual) 10 % (1-10) Eosinophils % (Manual) 0 % (0-3) Basophils % (Manual) 0 % (0-2) Band Neutrophils 0 % (0-8) Platelet Estimate Adequate Platelet Morphology Normal Red Blood Cell Morphology Normal Erythrocyte Sedimentation Rate 63 MM/HR (0-30) H Prothrombin Time 11.3 SEC (9.30-11.50) Prothromb Time International Ratio 1.0 (0.9-1.1) Activated Partial Thromboplast Time 27 SEC (23-33) D-Dimer 4.56 mg/L FEU (0.00-0.49) H Sodium Level 133 MMOL/L (136-145) L Potassium Level 4.9 MMOL/L (3.5-5.1) Chloride Level 98 MMOL/L (98-107) Carbon Dioxide Level 27 MMOL/L (21-32) Anion Gap 9 mmol/L (5-15) Blood Urea Nitrogen 22 mg/dL (7-18) H Creatinine 1.1 MG/DL (0.55-1.30) Estimat Glomerular Filtration Rate 59.8 mL/min (>60) Glucose Level 220 MG/DL (74-106) H Lactic Acid Level 2.30 mmol/L (0.4-2.0) H 1.90 mmol/L (0.66-2.22) Calcium Level 9.2 MG/DL (8.5-10.1) Ferritin 616 NG/ML (8-388) H Total Bilirubin 0.7 MG/DL (0.2-1.0) Aspartate Amino Transf (AST/SGOT) 32 U/L (15-37) Alanine Aminotransferase (ALT/SGPT) 20 U/L (12-78) Alkaline Phosphatase 180 U/L (46-116) H Lactate Dehydrogenase 325 U/L (81-234) H Total Creatine Kinase 505 U/L (26-308) H Creatine Kinase MB 2.7 NG/ML (0.0-3.6) Creatine Kinase MB Relative Index 0.5 Troponin I 0.000 ng/mL (0.000-0.056) C-Reactive Protein, Quantitative < 0.4 mg/dL (0.00-0.90) Pro-B-Type Natriuretic Peptide 640 pg/mL (0-125) H Total Protein 7.7 G/DL (6.4-8.2) Albumin 2.0 G/DL (3.4-5.0) L Globulin 5.7 g/dL Albumin/Globulin Ratio 0.4 (1.0-2.7) L Lipase 39 U/L (73-393) L Urine Color Yellow Urine Appearance Cloudy Urine pH 5 (4.5-8.0) Urine Specific [place] 1.020 (1.005-1.035) Urine Protein 2+ (NEGATIVE) H Urine Glucose (UA) 3+ (NEGATIVE) H Urine Ketones 2+ (NEGATIVE) H Urine Blood Negative (NEGATIVE) Urine Nitrite Negative (NEGATIVE) Urine Bilirubin 1+ (NEGATIVE) H Urine Ictotest Negative (NEGATIVE) Urine Urobilinogen 4 MG/DL (0.0-1.0) H Urine Leukocyte Esterase 1+ (NEGATIVE) H Urine RBC 0-2 /HPF (0 - 2) Urine WBC 5-10 /HPF (0 - 2) H Urine Squamous Epithelial Cells Many /LPF (NONE/OCC) H Urine Bacteria Moderate /HPF (NONE) H POC Whole Blood Glucose 237 MG/DL (74-106) H Test 04/01/20 04:58 04/01/20 05:09 04/01/20 12:18 POC Whole Blood Glucose 98 MG/DL (74-106) 78 MG/DL (74-106) White Blood Count 31.6 K/UL (4.8-10.8) *H Red Blood Count 3.52 M/UL (4.20-5.40) L Hemoglobin 10.9 G/DL (12.0-16.0) L Hematocrit 32.1 % (37.0-47.0) L Mean Corpuscular Volume 91 FL (80-99) Mean Corpuscular Hemoglobin 30.9 PG (27.0-31.0) Mean Corpuscular Hemoglobin Concent 33.8 G/DL (32.0-36.0) Red Cell Distribution Width 13.2 % (11.6-14.8) Platelet Count 391 K/UL (150-450) Mean Platelet Volume 6.9 FL (6.5-10.1) Neutrophils (%) (Auto) % (45.0-75.0) Lymphocytes (%) (Auto) % (20.0-45.0) Monocytes (%) (Auto) % (1.0-10.0) Eosinophils (%) (Auto) % (0.0-3.0) Basophils (%) (Auto) % (0.0-2.0) Differential Total Cells Counted 100 Neutrophils % (Manual) 74 % (45-75) Lymphocytes % (Manual) 16 % (20-45) L Monocytes % (Manual) 10 % (1-10) Eosinophils % (Manual) 0 % (0-3) Basophils % (Manual) 0 % (0-2) Band Neutrophils 0 % (0-8) Platelet Estimate Adequate Platelet Morphology Normal Red Blood Cell Morphology Normal Sodium Level 139 MMOL/L (136-145) Potassium Level 3.8 MMOL/L (3.5-5.1) Chloride Level 103 MMOL/L (98-107) Carbon Dioxide Level 29 MMOL/L (21-32) Anion Gap 7 mmol/L (5-15) Blood Urea Nitrogen 16 mg/dL (7-18) Creatinine 0.9 MG/DL (0.55-1.30) Estimat Glomerular Filtration Rate > 60 mL/min (>60) Glucose Level 98 MG/DL (74-106) # Hemoglobin A1c 11.2 % (4.3-6.0) H Calcium Level 8.1 MG/DL (8.5-10.1) L Phosphorus Level 2.8 MG/DL (2.5-4.9) Magnesium Level 1.4 MG/DL (1.8-2.4) L C-Reactive Protein, Quantitative 28.9 mg/dL (0.00-0.90) H Triglycerides Level 79 MG/DL (30-150) Cholesterol Level 115 MG/DL (< 200) LDL Cholesterol 59 mg/dL (<100) HDL Cholesterol 31 MG/DL (40-60) L Cholesterol/HDL Ratio 3.7 (3.3-4.4) Thyroid Stimulating Hormone (TSH) 1.441 uiU/mL (0.358-3.740) Microbiology Date/Time Source Procedure Growth Status 03/31/20 14:55 Nasopharynx SARS-CoV-2 RdRp Gene Assay - Final Complete Height (Feet): 5 Height (Inches): 6.00 Weight (Pounds): 135 Medications Current Medications Medications (Trade) Dose Ordered Sig/Enrike Route PRN Reason Start Time Stop Time Status Last Admin Dose Admin Acetaminophen (Tylenol) 650 mg Q4H PRN ORAL Mild Pain (Pain Scale 1-3) 03/31/20 19:00 04/30/20 18:59 Acetaminophen (Tylenol) 650 mg Q4H PRN ORAL Temp >100.5 03/31/20 19:00 04/30/20 18:59 Al Hydroxide/Mg Hydroxide (Mylanta II) 30 ml Q6H PRN ORAL dyspepsia 03/31/20 19:00 04/30/20 18:59 Albuterol/ Ipratropium (Albuterol/ Ipratropium) 3 ml Q4H PRN HHN Shortness of Breath 03/31/20 19:00 04/05/20 18:59 Amlodipine Besylate (Norvasc) 5 mg DAILY ORAL 04/01/20 09:00 05/01/20 08:59 04/01/20 08:47 Aspirin (ASA) 81 mg DAILY ORAL 04/01/20 09:00 05/16/20 08:59 04/01/20 08:47 Atorvastatin Calcium (Lipitor) 80 mg BEDTIME ORAL 03/31/20 21:00 06/29/20 20:59 03/31/20 22:06 Benazepril HCl (Lotensin) 40 mg DAILY ORAL 04/01/20 09:00 05/01/20 08:59 04/01/20 08:47 Dextrose (Dextrose 50%) 25 ml Q30M PRN IV Hypoglycemia 03/31/20 19:00 06/29/20 18:59 Dextrose (Dextrose 50%) 25 ml Q30M PRN IV Hypoglycemia 03/31/20 20:30 06/29/20 20:29 Dextrose (Dextrose 50%) 50 ml Q30M PRN IV Hypoglycemia 03/31/20 19:00 06/29/20 18:59 Dextrose (Dextrose 50%) 50 ml Q30M PRN IV Hypoglycemia 03/31/20 20:30 06/29/20 20:29 Enoxaparin Sodium (Lovenox) 40 mg Q24H SUBQ 03/31/20 21:00 06/29/20 20:59 03/31/20 22:05 Insulin Aspart (NovoLOG) BEFORE MEALS AND HS SUBQ 03/31/20 21:00 06/29/20 20:59 03/31/20 22:04 Insulin Detemir (Levemir) 13 units QHS SUBQ 03/31/20 22:00 06/29/20 21:59 03/31/20 22:09 Magnesium Hydroxide (Mom) 30 ml HSPRN PRN ORAL Constipation 03/31/20 19:00 04/30/20 18:59 Ondansetron HCl (Zofran) 4 mg Q6H PRN IVP Nausea & Vomiting 03/31/20 19:00 04/30/20 18:59 Piperacillin Sod/ Tazobactam Sod 3.375 gm/Sodium Chloride 110 ml @ 27.5 mls/hr Q8HR IVPB 03/31/20 22:00 04/07/20 21:59 04/01/20 05:40 Sodium Chloride 1,000 ml @ 75 mls/hr [id number] IVLG 03/31/20 21:00 04/30/20 20:59 03/31/20 22:06 Vancomycin HCl (Vanco pharmacy to dose) 1 ea DAILY PRN MISC Per rx protocol 03/31/20 19:15 04/30/20 19:14 Vancomycin HCl 500 mg/Sodium Chloride 110 ml @ 110 mls/hr Q12HR@0100,1300 IVPB 04/01/20 01:00 04/06/20 00:59 04/01/20 01:58 Assessment/Plan Problem List: (1) Decubitus ulcer of heel ICD Codes: L89.609 - Pressure ulcer of unspecified heel, unspecified stage SNOMED: 282436232 (2) Sacral decubitus ulcer ICD Codes: L89.159 - Pressure ulcer of sacral region, unspecified stage SNOMED: 594600913 (3) Sepsis Assessment & Plan: 69-year-old female multiple comorbidities presented with failure to thrive lethargic altered mental status noted to have significant leukocytosis greater than 30,000 lactic acidosis 2.3 abnormal labs A1c 11 identified to have draining bilateral heel unstageable decubitus ulcers multiple skin lesions on the lower extremities as well as a sacral decubitus ulcer as well. Patient is currently on antibiotics under work-up microbiology identified urine noted UTI. Imaging reviewed. Patient has been eating less recently but currently is eating at the bedside though does not look like she is taking much in. Treatment plan Wash sacral area daily with normal saline apply Thera honey followed by Optifoam dressing change daily and as needed saturation Wash bilateral heels daily with normal saline. Swab with Betadine unstageable necrotic eschar on bilateral heels and cover with Optifoam dressings. Change daily and as needed saturation Lower lower extremity ulcerations saw with Betadine cover with Optifoam dressing. Turn every 2 hours Offload pressure with pillows pillow on side as necessary as well as underneath calf to elevate heels Air soft mattress nutritional optimization continue IV antibiotics per infectious disease We will follow with recommendations thank you for letting participate patient's care ICD Codes: A41.9 - Sepsis, unspecified organism SNOMED: 28489808 Qualifiers: Qualified Codes: A41.9 - Sepsis, unspecified organism (4) UTI (urinary tract infection) ICD Codes: N39.0 - Urinary tract infection, site not specified SNOMED: 74746886 Qualifiers: Qualified Codes: N39.0 - Urinary tract infection, site not specified; R31.9 - Hematuria, unspecified (5) Hyperkalemia ICD Codes: E87.5 - Hyperkalemia SNOMED: 02426067 (6) Leukocytosis ICD Codes: D72.829 - Elevated white blood cell count, unspecified SNOMED: 348545651, 514870284 (7) Altered mental status ICD Codes: R41.82 - Altered mental status, unspecified SNOMED: 468466654 Qualifiers: Qualified Codes: R41.82 - Altered mental status, unspecified (8) Diabetes mellitus out of control ICD Codes: E11.65 - Type 2 diabetes mellitus with hyperglycemia SNOMED: 44713155, 955000543 (9) Acute on chronic renal failure ICD Codes: N17.9 - Acute kidney failure, unspecified; N18.9 - Chronic kidney disease, unspecified SNOMED: 837471180 (10) NSTEMI (non-ST elevated myocardial infarction) ICD Codes: I21.4 - Non-ST elevation (NSTEMI) myocardial infarction SNOMED: 277834825 (11) High anion gap metabolic acidosis ICD Codes: E87.2 - Acidosis SNOMED: 96789061 Joseph Alamo Apr 01, 2020 12:43
--- NOTE | 2020-04-01 14:32 | Infectious Diseases Prog Note ---
Assessment/Plan Assessment/Plan Full consult dictated: A) 1) sepsis, leukocytosis, ? infected wounds, necrotic heels, ? uti 2) pmh noted 3) allergies - nkda P) 1) zosyn and vancomycin 2) f/u on cultures and labs 3) wound care per surgery 4) thank you Subjective Allergies: Coded Allergies: PENICILLINS (Verified Allergy, Unknown, 12/05/17) Objective Last 24 Hour Vital Signs Date Time Temp Pulse Resp B/P (MAP) Pulse Ox O2 Delivery O2 Flow Rate FiO2 04/01/20 13:35 99.9 04/01/20 12:00 100.8 92 20 97/43 (61) 95 04/01/20 12:00 96 04/01/20 08:47 137/48 04/01/20 08:47 100 137/48 04/01/20 08:00 96.9 100 18 137/48 (77) 98 04/01/20 08:00 101 04/01/20 04:00 97 04/01/20 04:00 97.0 99 20 129/69 (89) 95 04/01/20 00:00 99 04/01/20 00:00 97.0 99 20 129/69 (89) 95 03/31/20 21:19 98.8 100 18 144/65 99 Room Air 03/31/20 17:00 98.8 100 18 144/65 99 Room Air Height (Feet): 5 Height (Inches): 6.00 Weight (Pounds): 135 Microbiology Date/Time Source Procedure Growth Status 03/31/20 16:51 Urine,Clean Catch Urine Culture - Preliminary Gram Negative Abe Resulted 03/31/20 14:55 Nasopharynx SARS-CoV-2 RdRp Gene Assay - Final Complete Laboratory Tests Test 03/31/20 14:58 03/31/20 16:51 03/31/20 17:59 03/31/20 22:01 White Blood Count 35.2 K/UL (4.8-10.8) *H Red Blood Count 4.13 M/UL (4.20-5.40) L Hemoglobin 12.7 G/DL (12.0-16.0) Hematocrit 38.1 % (37.0-47.0) Mean Corpuscular Volume 92 FL (80-99) Mean Corpuscular Hemoglobin 30.7 PG (27.0-31.0) Mean Corpuscular Hemoglobin Concent 33.3 G/DL (32.0-36.0) Red Cell Distribution Width 12.6 % (11.6-14.8) Platelet Count 380 K/UL (150-450) Mean Platelet Volume 6.9 FL (6.5-10.1) Neutrophils (%) (Auto) % (45.0-75.0) Lymphocytes (%) (Auto) % (20.0-45.0) Monocytes (%) (Auto) % (1.0-10.0) Eosinophils (%) (Auto) % (0.0-3.0) Basophils (%) (Auto) % (0.0-2.0) Differential Total Cells Counted 100 Neutrophils % (Manual) 83 % (45-75) H Lymphocytes % (Manual) 7 % (20-45) L Monocytes % (Manual) 10 % (1-10) Eosinophils % (Manual) 0 % (0-3) Basophils % (Manual) 0 % (0-2) Band Neutrophils 0 % (0-8) Platelet Estimate Adequate Platelet Morphology Normal Red Blood Cell Morphology Normal Erythrocyte Sedimentation Rate 63 MM/HR (0-30) H Prothrombin Time 11.3 SEC (9.30-11.50) Prothromb Time International Ratio 1.0 (0.9-1.1) Activated Partial Thromboplast Time 27 SEC (23-33) D-Dimer 4.56 mg/L FEU (0.00-0.49) H Sodium Level 133 MMOL/L (136-145) L Potassium Level 4.9 MMOL/L (3.5-5.1) Chloride Level 98 MMOL/L (98-107) Carbon Dioxide Level 27 MMOL/L (21-32) Anion Gap 9 mmol/L (5-15) Blood Urea Nitrogen 22 mg/dL (7-18) H Creatinine 1.1 MG/DL (0.55-1.30) Estimat Glomerular Filtration Rate 59.8 mL/min (>60) Glucose Level 220 MG/DL (74-106) H Lactic Acid Level 2.30 mmol/L (0.4-2.0) H 1.90 mmol/L (0.66-2.22) Calcium Level 9.2 MG/DL (8.5-10.1) Ferritin 616 NG/ML (8-388) H Total Bilirubin 0.7 MG/DL (0.2-1.0) Aspartate Amino Transf (AST/SGOT) 32 U/L (15-37) Alanine Aminotransferase (ALT/SGPT) 20 U/L (12-78) Alkaline Phosphatase 180 U/L (46-116) H Lactate Dehydrogenase 325 U/L (81-234) H Total Creatine Kinase 505 U/L (26-308) H Creatine Kinase MB 2.7 NG/ML (0.0-3.6) Creatine Kinase MB Relative Index 0.5 Troponin I 0.000 ng/mL (0.000-0.056) C-Reactive Protein, Quantitative < 0.4 mg/dL (0.00-0.90) Pro-B-Type Natriuretic Peptide 640 pg/mL (0-125) H Total Protein 7.7 G/DL (6.4-8.2) Albumin 2.0 G/DL (3.4-5.0) L Globulin 5.7 g/dL Albumin/Globulin Ratio 0.4 (1.0-2.7) L Lipase 39 U/L (73-393) L Urine Color Yellow Urine Appearance Cloudy Urine pH 5 (4.5-8.0) Urine Specific [place] 1.020 (1.005-1.035) Urine Protein 2+ (NEGATIVE) H Urine Glucose (UA) 3+ (NEGATIVE) H Urine Ketones 2+ (NEGATIVE) H Urine Blood Negative (NEGATIVE) Urine Nitrite Negative (NEGATIVE) Urine Bilirubin 1+ (NEGATIVE) H Urine Ictotest Negative (NEGATIVE) Urine Urobilinogen 4 MG/DL (0.0-1.0) H Urine Leukocyte Esterase 1+ (NEGATIVE) H Urine RBC 0-2 /HPF (0 - 2) Urine WBC 5-10 /HPF (0 - 2) H Urine Squamous Epithelial Cells Many /LPF (NONE/OCC) H Urine Bacteria Moderate /HPF (NONE) H POC Whole Blood Glucose 237 MG/DL (74-106) H Test 04/01/20 04:58 04/01/20 05:09 04/01/20 12:18 POC Whole Blood Glucose 98 MG/DL (74-106) 78 MG/DL (74-106) White Blood Count 31.6 K/UL (4.8-10.8) *H Red Blood Count 3.52 M/UL (4.20-5.40) L Hemoglobin 10.9 G/DL (12.0-16.0) L Hematocrit 32.1 % (37.0-47.0) L Mean Corpuscular Volume 91 FL (80-99) Mean Corpuscular Hemoglobin 30.9 PG (27.0-31.0) Mean Corpuscular Hemoglobin Concent 33.8 G/DL (32.0-36.0) Red Cell Distribution Width 13.2 % (11.6-14.8) Platelet Count 391 K/UL (150-450) Mean Platelet Volume 6.9 FL (6.5-10.1) Neutrophils (%) (Auto) % (45.0-75.0) Lymphocytes (%) (Auto) % (20.0-45.0) Monocytes (%) (Auto) % (1.0-10.0) Eosinophils (%) (Auto) % (0.0-3.0) Basophils (%) (Auto) % (0.0-2.0) Differential Total Cells Counted 100 Neutrophils % (Manual) 74 % (45-75) Lymphocytes % (Manual) 16 % (20-45) L Monocytes % (Manual) 10 % (1-10) Eosinophils % (Manual) 0 % (0-3) Basophils % (Manual) 0 % (0-2) Band Neutrophils 0 % (0-8) Platelet Estimate Adequate Platelet Morphology Normal Red Blood Cell Morphology Normal Sodium Level 139 MMOL/L (136-145) Potassium Level 3.8 MMOL/L (3.5-5.1) Chloride Level 103 MMOL/L (98-107) Carbon Dioxide Level 29 MMOL/L (21-32) Anion Gap 7 mmol/L (5-15) Blood Urea Nitrogen 16 mg/dL (7-18) Creatinine 0.9 MG/DL (0.55-1.30) Estimat Glomerular Filtration Rate > 60 mL/min (>60) Glucose Level 98 MG/DL (74-106) # Hemoglobin A1c 11.2 % (4.3-6.0) H Calcium Level 8.1 MG/DL (8.5-10.1) L Phosphorus Level 2.8 MG/DL (2.5-4.9) Magnesium Level 1.4 MG/DL (1.8-2.4) L C-Reactive Protein, Quantitative 28.9 mg/dL (0.00-0.90) H Triglycerides Level 79 MG/DL (30-150) Cholesterol Level 115 MG/DL (< 200) LDL Cholesterol 59 mg/dL (<100) HDL Cholesterol 31 MG/DL (40-60) L Cholesterol/HDL Ratio 3.7 (3.3-4.4) Thyroid Stimulating Hormone (TSH) 1.441 uiU/mL (0.358-3.740) Current Medications Medications (Trade) Dose Ordered Sig/Enrike Route PRN Reason Start Time Stop Time Status Last Admin Dose Admin Acetaminophen (Tylenol) 650 mg Q4H PRN ORAL Temp >100.5 03/31/20 19:00 04/30/20 18:59 04/01/20 13:05 Acetaminophen (Tylenol) 650 mg Q4H PRN ORAL Mild Pain (Pain Scale 1-3) 03/31/20 19:00 04/30/20 18:59 Al Hydroxide/Mg Hydroxide (Mylanta II) 30 ml Q6H PRN ORAL dyspepsia 03/31/20 19:00 04/30/20 18:59 Albuterol/ Ipratropium (Albuterol/ Ipratropium) 3 ml Q4H PRN HHN Shortness of Breath 03/31/20 19:00 04/05/20 18:59 Amlodipine Besylate (Norvasc) 5 mg DAILY ORAL 04/01/20 09:00 05/01/20 08:59 04/01/20 08:47 Aspirin (ASA) 81 mg DAILY ORAL 04/01/20 09:00 05/16/20 08:59 04/01/20 08:47 Atorvastatin Calcium (Lipitor) 80 mg BEDTIME ORAL 03/31/20 21:00 06/29/20 20:59 03/31/20 22:06 Benazepril HCl (Lotensin) 40 mg DAILY ORAL 04/01/20 09:00 05/01/20 08:59 04/01/20 08:47 Dextrose (Dextrose 50%) 25 ml Q30M PRN IV Hypoglycemia 03/31/20 19:00 06/29/20 18:59 Dextrose (Dextrose 50%) 25 ml Q30M PRN IV Hypoglycemia 03/31/20 20:30 2/16/21 20:29 Dextrose (Dextrose 50%) 50 ml Q30M PRN IV Hypoglycemia 03/31/20 19:00 06/29/20 18:59 Dextrose (Dextrose 50%) 50 ml Q30M PRN IV Hypoglycemia 03/31/20 20:30 06/29/20 20:29 Enoxaparin Sodium (Lovenox) 40 mg Q24H SUBQ 03/31/20 21:00 06/29/20 20:59 03/31/20 22:05 Insulin Aspart (NovoLOG) BEFORE MEALS AND HS SUBQ 03/31/20 21:00 06/29/20 20:59 03/31/20 22:04 Insulin Detemir (Levemir) 13 units QHS SUBQ 03/31/20 22:00 06/29/20 21:59 03/31/20 22:09 Magnesium Hydroxide (Mom) 30 ml HSPRN PRN ORAL Constipation 03/31/20 19:00 04/30/20 18:59 Ondansetron HCl (Zofran) 4 mg Q6H PRN IVP Nausea & Vomiting 03/31/20 19:00 04/30/20 18:59 Piperacillin Sod/ Tazobactam Sod 3.375 gm/Sodium Chloride 110 ml @ 27.5 mls/hr Q8HR IVPB 03/31/20 22:00 04/07/20 21:59 04/01/20 14:00 Sodium Chloride 1,000 ml @ 75 mls/hr [id number] IVLG 03/31/20 21:00 04/30/20 20:59 03/31/20 22:06 Vancomycin HCl (Vanco pharmacy to dose) 1 ea DAILY PRN MISC Per rx protocol 03/31/20 19:15 04/30/20 19:14 Vancomycin HCl 500 mg/Sodium Chloride 110 ml @ 110 mls/hr Q12HR@0100,1300 IVPB 04/01/20 01:00 04/06/20 00:59 04/01/20 13:06 Elyse Leung MD Apr 01, 2020 14:32
[2020-04-01 16:00] VITALS: BP 94/56
[2020-04-01 20:00] VITALS: BP 108/52
[2020-04-01] MEDS: Atorvastatin 80mg tab ORAL SCH (20:22)
[2020-04-01] MEDS: Enoxaparin 40mg Inj SUBQ SCH (20:24)
[2020-04-01] MEDS: Levemir Flexpen SUBQ SCH (20:24)
[2020-04-02] VITALS: BP 100/55
[2020-04-02] MEDS: Vancomycin 500 MG in NS 110 ML IVPB SCH ×2 (01:32→13:44)
[2020-04-02 03:52] VITALS: BP 113/52
[2020-04-02] MEDS: Piperacillin/Tazobactam 3.375 GM in NS 110 ML IVPB SCH ×3 (05:03→21:29)
[2020-04-02] MEDS: NovoLOG Insulin Flexpen SUBQ SCH ×4 (05:38→21:00)
[2020-04-02 07:22] LABS: HEMATOCRIT 32.6 % (37.0-47.0); HEMOGLOBIN 10.7 G/DL (12.0-16.0); MEAN CORPUSCULAR VOLUME 95 FL (80-99); PLATELET COUNT 376 K/UL (150-450); RED BLOOD COUNT 3.43 M/UL (4.20-5.40); RED CELL DISTRIBUTION WIDTH 12.7 % (11.6-14.8)
[2020-04-02 07:23] LABS: WHITE BLOOD COUNT 22.2 K/UL (4.8-10.8)
[2020-04-02 07:34] LABS: ALANINE AMINOTRANSFERASE 15 U/L (12-78); ALBUMIN 1.3 G/DL (3.4-5.0); ALBUMIN/GLOBULIN RATIO 0.3 (1.0-2.7); ALKALINE PHOSPHATASE 120 U/L (46-116); ANION GAP 3 mmol/L (5-15); ASPARTATE AMINO TRANSFERASE 33 U/L (15-37); BILIRUBIN,TOTAL 0.4 MG/DL (0.2-1.0); BLOOD UREA NITROGEN 15 mg/dL (7-18); CALCIUM 7.6 MG/DL (8.5-10.1); CARBON DIOXIDE 31 MMOL/L (21-32); CHLORIDE 104 MMOL/L (98-107); CREATININE 0.9 MG/DL (0.55-1.30); POTASSIUM 3.4 MMOL/L (3.5-5.1); SODIUM 138 MMOL/L (136-145)
[2020-04-02 07:48] LABS: INR 1.1 (0.9-1.1)
[2020-04-02 08:00] VITALS: BP 129/67
[2020-04-02] MEDS: Aspirin Baby 81mg ORAL SCH (09:03)
--- NOTE | 2020-04-02 09:15 | Consultation ---
History of Present Illness General Chief Complaint: Altered Mental Status Present Illness Allergies: Coded Allergies: PENICILLINS (Verified Allergy, Unknown, 12/05/17) Medication History Scheduled Amlodipine Besylate* (Amlodipine Besylate*), 5 MG ORAL DAILY, (Reported) Aspirin* (Aspirin*), 81 MG ORAL DAILY, (Reported) Atorvastatin Calcium* (Lipitor*), 80 MG ORAL BEDTIME, (Reported) Benazepril Hcl* (Benazepril Hcl*), 40 MG ORAL DAILY, (Reported) Insulin Glargine (Lantus), 20 UNITS SUBQ QHS, (Reported) Insulin Lispro (Humalog), 4 UNITS SUBQ THREE TIMES A DAY, (Reported) Metformin Hcl* (Metformin Hcl*), 500 MG ORAL TWICE A DAY, (Reported) Discontinued Medications Insulin Lispro (Humalog), 8 SUBQ BREAKFAST,LUNCH, (Reported) Discontinued Reason: Medication dose changed Patient History Healthcare decision maker Resuscitation status Advanced Directive on File Physical Exam Last 24 Hour Vital Signs Date Time Temp Pulse Resp B/P (MAP) Pulse Ox O2 Delivery O2 Flow Rate FiO2 04/02/20 09:04 85 118/60 04/02/20 09:03 118/60 04/02/20 08:21 Room Air 04/02/20 04:00 87 04/02/20 03:52 98.1 85 20 113/52 (72) 98 04/02/20 00:00 85 04/02/20 00:00 98.8 89 20 100/55 (70) 100 04/01/20 21:00 Room Air 04/01/20 20:00 84 04/01/20 20:00 97.9 86 20 108/52 (70) 99 04/01/20 16:00 99.9 84 18 94/56 (69) 98 04/01/20 16:00 80 04/01/20 13:35 99.9 04/01/20 12:00 100.8 92 20 97/43 (61) 95 04/01/20 12:00 96 Intake and Output0 04/01/20 04/02/20 19:00 07:00 Intake Total 120 ml Output Total 500 ml 350 ml Balance -380 ml -350 ml Intake Oral 120 ml Output Urine Total 500 ml 350 ml Laboratory Tests Test 04/01/20 12:18 04/01/20 17:23 04/01/20 20:07 04/02/20 05:33 POC Whole Blood Glucose 78 MG/DL (74-106) 208 MG/DL (74-106) H 280 MG/DL (74-106) H 194 MG/DL (74-106) H Test 04/02/20 05:50 White Blood Count 22.2 K/UL (4.8-10.8) *H Red Blood Count 3.43 M/UL (4.20-5.40) L Hemoglobin 10.7 G/DL (12.0-16.0) L Hematocrit 32.6 % (37.0-47.0) L Mean Corpuscular Volume 95 FL (80-99) Mean Corpuscular Hemoglobin 31.1 PG (27.0-31.0) H Mean Corpuscular Hemoglobin Concent 32.7 G/DL (32.0-36.0) Red Cell Distribution Width 12.7 % (11.6-14.8) Platelet Count 376 K/UL (150-450) Mean Platelet Volume 6.9 FL (6.5-10.1) Neutrophils (%) (Auto) % (45.0-75.0) Lymphocytes (%) (Auto) % (20.0-45.0) Monocytes (%) (Auto) % (1.0-10.0) Eosinophils (%) (Auto) % (0.0-3.0) Basophils (%) (Auto) % (0.0-2.0) Neutrophils % (Manual) Pending Lymphocytes % (Manual) Pending Platelet Estimate Pending Platelet Morphology Pending Erythrocyte Sedimentation Rate 88 MM/HR (0-30) H Prothrombin Time 11.6 SEC (9.30-11.50) H Prothromb Time International Ratio 1.1 (0.9-1.1) Activated Partial Thromboplast Time 31 SEC (23-33) Sodium Level 138 MMOL/L (136-145) Potassium Level 3.4 MMOL/L (3.5-5.1) L Chloride Level 104 MMOL/L (98-107) Carbon Dioxide Level 31 MMOL/L (21-32) Anion Gap 3 mmol/L (5-15) L Blood Urea Nitrogen 15 mg/dL (7-18) Creatinine 0.9 MG/DL (0.55-1.30) Estimat Glomerular Filtration Rate > 60 mL/min (>60) Glucose Level 174 MG/DL (74-106) H Lactic Acid Level 0.90 mmol/L (0.4-2.0) Calcium Level 7.6 MG/DL (8.5-10.1) L Magnesium Level 1.5 MG/DL (1.8-2.4) L Total Bilirubin 0.4 MG/DL (0.2-1.0) Aspartate Amino Transf (AST/SGOT) 33 U/L (15-37) Alanine Aminotransferase (ALT/SGPT) 15 U/L (12-78) Alkaline Phosphatase 120 U/L (46-116) H C-Reactive Protein, Quantitative 21.7 mg/dL (0.00-0.90) H Total Protein 5.1 G/DL (6.4-8.2) L Albumin 1.3 G/DL (3.4-5.0) L Globulin 3.8 g/dL Albumin/Globulin Ratio 0.3 (1.0-2.7) L Prealbumin Pending Amylase Level 8 U/L (25-115) L Lipase 32 U/L (73-393) L Height (Feet): 5 Height (Inches): 6.00 Weight (Pounds): 135 Medications Current Medications Medications (Trade) Dose Ordered Sig/Enrike Route PRN Reason Start Time Stop Time Status Last Admin Dose Admin Acetaminophen (Tylenol) 650 mg Q4H PRN ORAL Temp >100.5 03/31/20 19:00 04/30/20 18:59 04/01/20 13:05 Acetaminophen (Tylenol) 650 mg Q4H PRN ORAL Mild Pain (Pain Scale 1-3) 03/31/20 19:00 04/30/20 18:59 Al Hydroxide/Mg Hydroxide (Mylanta II) 30 ml Q6H PRN ORAL dyspepsia 03/31/20 19:00 04/30/20 18:59 Albuterol/ Ipratropium (Albuterol/ Ipratropium) 3 ml Q4H PRN HHN Shortness of Breath 03/31/20 19:00 04/05/20 18:59 Amlodipine Besylate (Norvasc) 5 mg DAILY ORAL 04/01/20 09:00 05/01/20 08:59 04/02/20 09:04 Aspirin (ASA) 81 mg DAILY ORAL 04/01/20 09:00 05/16/20 08:59 04/02/20 09:03 Atorvastatin Calcium (Lipitor) 80 mg BEDTIME ORAL 03/31/20 21:00 06/29/20 20:59 04/01/20 20:22 Benazepril HCl (Lotensin) 40 mg DAILY ORAL 04/01/20 09:00 05/01/20 08:59 04/02/20 09:03 Dextrose (Dextrose 50%) 25 ml Q30M PRN IV Hypoglycemia 03/31/20 20:30 06/29/20 20:29 Dextrose (Dextrose 50%) 50 ml Q30M PRN IV Hypoglycemia 03/31/20 20:30 06/29/20 20:29 Enoxaparin Sodium (Lovenox) 40 mg Q24H SUBQ 03/31/20 21:00 06/29/20 20:59 04/01/20 20:24 Insulin Aspart (NovoLOG) BEFORE MEALS AND HS SUBQ 03/31/20 21:00 06/29/20 20:59 04/02/20 05:38 Insulin Detemir (Levemir) 13 units QHS SUBQ 03/31/20 22:00 06/29/20 21:59 04/01/20 20:24 Magnesium Hydroxide (Mom) 30 ml HSPRN PRN ORAL Constipation 03/31/20 19:00 04/30/20 18:59 Magnesium Sulfate 100 ml @ 100 mls/hr Q1H IVPB 04/02/20 08:00 04/02/20 09:59 04/02/20 09:04 Ondansetron HCl (Zofran) 4 mg Q6H PRN IVP Nausea & Vomiting 03/31/20 19:00 04/30/20 18:59 Piperacillin Sod/ Tazobactam Sod 3.375 gm/Sodium Chloride 110 ml @ 27.5 mls/hr Q8HR IVPB 03/31/20 22:00 04/07/20 21:59 04/02/20 05:03 Potassium Chloride (K-Dur) 40 meq ONCE ORAL 04/02/20 07:45 04/02/20 10:00 04/02/20 09:03 Sodium Chloride 1,000 ml @ 125 mls/hr Q8H IVLG 03/31/20 21:00 04/30/20 20:59 04/02/20 05:03 Vancomycin HCl (Vanco pharmacy to dose) 1 ea DAILY PRN MISC Per rx protocol 03/31/20 19:15 04/30/20 19:14 Vancomycin HCl 500 mg/Sodium Chloride 110 ml @ 110 mls/hr Q12HR@0100,1300 IVPB 04/01/20 01:00 04/06/20 00:59 04/02/20 01:32 Assessment/Plan Assessment/Plan: Hematology Consultaiton LEONELA MD: Jose Arrieta Persistent Leukocytosis DOS: 04/02/2020 ID 69-year-old female presents to ED for increased lethargy. Brought in by EMS from home. Sister at bedside states that patient has been eating less than usual since the weekend. Has been more lethargic for the last few days. States that this happens sometimes when she refuses to eat. No reported fevers or chills. No nausea or vomiting. No other aggravating relieving factors. No other associated symptoms, has been on abx since admission, see by ID, still with persistently high wbc, and heme has been consulted. Allergies: Coded Allergies: PENICILLINS (Verified Allergy, Unknown, 12/05/17) COVID-19 Screening Contact w/high risk pt: No Experienced COVID-19 symptoms?: No COVID-19 Testing performed HUMAN RESOURCES MGR: No Patient History Past Medical History: HTN, dementia Past Surgical History: none Pertinent Family History: none Social History: Denies: smoking, alcohol use, drug use Now: No Immunizations: UTD Reviewed Nursing Documentation: PMH: Agreed; PSxH: Agreed Nursing Documentation-PMH Hx Hypertension: Yes Hx Diabetes: Yes Hx Neurological Problems: Yes - DEMENTIA Review of Systems All Other Systems: limited Physical Exam Vitals: reviewed, normal General Appearance: no apparent distress, non-toxic, lethargic HEENT: bilateral eye normal inspection, bilateral eye PERRL Neck: full range of motion, supple/symm/no masses Resp: chest non-tender, lungs clear, normal breath sounds, speaking full senten lawrence Cardiovascular: regular rate, rhythm, no edema Gastrointestinal: normal bowel sounds, non tender Rectal: deferred Genitourinary: normal inspection, no CVA tenderness Musculoskeletal: back normal, gait/station normal, non-tender Lymphatic: no adenopathy Labs: reviewed Meds; noted # Leukocytosis likely secondary to underlying diabetic ketoacidosis, rule out underlying infection. --> likely due to infected wounds, heel ulcerations --> ABX vanc/zosyn --> Peripheral smear, reviewed, hold off flow for now --> elev inflammatory markers --> WBC 35-->22 # Anemia due to underlying chronic disease. --> Continue to closely monitor for improvement. --> Anemia w/u has been reviewed. Will trend cbc daily. --> Hgb goal >7 -> hgb 12-->10.7 --> anemia panel reviewed before # Hyperkalemia. Given Kayexalate. --> Improved # Diabetic ketoacidosis. --> per before, improved # High anion gap acidosis. To be seen by primary team. --> Gap is closing. On insulin sliding scale. # Shortness of breath in past with dka The time the note was entered does not necessarily correspond to the time the patient was seen. David De Jesus MD Apr 02, 2020 09:15
--- NOTE | 2020-04-02 09:18 | General Progress Note ---
Subjective Constitutional: Denies: no symptoms, chills, diaphoresis, fever, malaise, weakness, other HEENT: Denies: no symptoms, eye pain, blurred vision, tearing, double vision, ear pain, ear discharge, nose pain, nose congestion, throat pain, throat swelling, mouth pain, mouth swelling, other Cardiovascular: Denies: no symptoms, chest pain, edema, irregular heart rate, lightheadedness, palpitations, syncope, other Respiratory: Denies: no symptoms, cough, orthopnea, shortness of breath, SOB with excertion, SOB at rest, sputum, stridor, wheezing, other Gastrointestinal/Abdominal: Denies: no symptoms, abdomen distended, abdominal pain, black stools, tarry stools, blood in stool, constipated, diarrhea, difficulty swallowing, nausea, poor appetite, poor fluid intake, rectal bleeding, vomiting, other Genitourinary: Denies: no symptoms, burning, discharge, frequency, flank pain, hematuria, incontinence, pain, urgency, other Neurologic/Psychiatric: Denies: no symptoms, anxiety, depressed, emotional problems, headache, numbness, paresthesia, pre-existing deficit, seizure, tingling, tremors, weakness, other Endocrine: Denies: no symptoms, excessive sweating, flushing, intolerance to cold, intolerance to heat, increased hunger, increased thirst, increased urine, unexplained weight gain, unexplained weight loss, other Hematologic/Lymphatic: Denies: no symptoms, anemia, easy bleeding, easy bruising, other Allergies: Coded Allergies: PENICILLINS (Verified Allergy, Unknown, 12/05/17) Subjective no acute events overngiht. Patient more alert this morning much more conversational. However unable to tell me her birthday, where she is, or the date. But she is able to answer majority of review of systems. WBC declining, no fevers overnight. I am still waiting on multiple images left foot x-ray and lower extremity ultrasounds that have been ordered 2 days ago Objective Last 24 Hour Vital Signs Date Time Temp Pulse Resp B/P (MAP) Pulse Ox O2 Delivery O2 Flow Rate FiO2 04/02/20 09:04 85 118/60 04/02/20 09:03 118/60 04/02/20 08:21 Room Air 04/02/20 04:00 87 04/02/20 03:52 98.1 85 20 113/52 (72) 98 04/02/20 00:00 85 04/02/20 00:00 98.8 89 20 100/55 (70) 100 04/01/20 21:00 Room Air 04/01/20 20:00 84 04/01/20 20:00 97.9 86 20 108/52 (70) 99 04/01/20 16:00 99.9 84 18 94/56 (69) 98 04/01/20 16:00 80 04/01/20 13:35 99.9 04/01/20 12:00 100.8 92 20 97/43 (61) 95 04/01/20 12:00 96 Intake and Output 04/01/20 04/02/20 19:00 07:00 Intake Total 120 ml Output Total 500 ml 350 ml Balance -380 ml -350 ml Intake Oral 120 ml Output Urine Total 500 ml 350 ml Laboratory Tests 04/01/20 12:18: POC Whole Blood Glucose 78 04/01/20 17:23: POC Whole Blood Glucose 208H 04/01/20 20:07: POC Whole Blood Glucose 280H 04/02/20 05:33: POC Whole Blood Glucose 194H 04/02/20 05:50: White Blood Count 22.2*H, Red Blood Count 3.43L, Hemoglobin 10.7L, Hematocrit 32.6L, Mean Corpuscular Volume 95, Mean Corpuscular Hemoglobin 31.1H, Mean Corpuscular Hemoglobin Concent 32.7, Red Cell Distribution Width 12.7, Platelet Count 376, Mean Platelet Volume 6.9, Neutrophils (%) (Auto) , Lymphocytes (%) (Auto) , Monocytes (%) (Auto) , Eosinophils (%) (Auto) , Basophils (%) (Auto) , Neutrophils % (Manual) [Pending], Lymphocytes % (Manual) [Pending], Platelet Estimate [Pending], Platelet Morphology [Pending], Erythrocyte Sedimentation Rate 88H, Prothrombin Time 11.6H, Prothromb Time International Ratio 1.1, Activated Partial Thromboplast Time 31, Sodium Level 138, Potassium Level 3.4L, Chloride Level 104, Carbon Dioxide Level 31, Anion Gap 3L, Blood Urea Nitrogen 15, Creatinine 0.9, Estimat Glomerular Filtration Rate > 60, Glucose Level 174H, Lactic Acid Level 0.90, Calcium Level 7.6L, Magnesium Level 1.5L, Total Bilirubin 0.4, Aspartate Amino Transf (AST/SGOT) 33, Alanine Aminotransferase (ALT/SGPT) 15, Alkaline Phosphatase 120H, C-Reactive Protein, Quantitative 21.7H , Total Protein 5.1L, Albumin 1.3L, Globulin 3.8, Albumin/Globulin Ratio 0.3L, Prealbumin [Pending], Amylase Level 8L, Lipase 32L Height (Feet): 5 Height (Inches): 6.00 Weight (Pounds): 135 General Appearance: no apparent distress, alert, confused EENT: PERRL/EOMI Neck: non-tender, supple Cardiovascular: normal rate, regular rhythm, no JVD Respiratory/Chest: lungs clear, normal breath sounds, respiratory distress Abdomen: normal bowel sounds, non tender, soft Extremities: other - Bilateral lower extremities wrapped in surgical dressings, noted left likely stage III for heel ulcer Edema: no edema noted Arm (L), no edema noted Arm (R), no edema noted Leg (L), no edema noted Leg (R), no edema noted Pedal (L), no edema noted Pedal (R), no edema noted Generalized 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 Barroso is a 69-year-old female with possible history of diabetes mellitus is presenting for acute encephalopathy. A: #Acute encephalopathy likely secondary to infectious etiology versus toxic metabolicimproving #Sepsis with UTI, cellulitis, foot ulcer source, possible osteomyelitis of the left lower extremity #UTI #Left lower extremity heel ulcer w/ possible osteomyelitis #Left lower extremity cellulitis #Bilateral lower extremity venous dermatitis #Bilateral lower extremity edema #Lactic acidosis #Diabetes mellitus uncontrolled; A1c 11.2 #Essential hypertension P: Currently hemodynamically stable, status post IV bolus resuscitation Saturating well on room air, keep saturation greater than 92% continue broad spec antibiotics with vancomycin and Zosyn Follow-up urinary cultures, blood cultures, MRSA screen, wound culture Blood cultures negative for 24 hours - ESR increased to 80 today STILL waiting on x-ray of left lower extremity to rule out osteomyelitis STILL waiting on bilateral lower extremity venous ultrasound to rule out DVT as patient had positive Homans' sign, D-dimer will be not useful in this clinical situation Echo 60 to 65%, no regional wall motion abnormalities, mild left ventricular hypertrophy, no valvular dysfunction, RSVP 23 Continue 13 units of Levemir daily Continue moderate insulin sliding scale, reassess daily insulin requirements Blood glucose goal is 140-180 Continue home Lipitor, amlodipine, lisinopril Wound consult Consult Dr. Alamo, general surgery, recs appreciated Consult Dr. Ernst, ID, recs appreciated Code: Full, will need to discuss further with family or patient as when she gets better Diet: Diabetic Fluids: NS 75 DVT prophylaxis: Lovenox 40 mg daily Dispo: Still waiting on imaging for osteomyelitis rule out Time spent on this encounter was 41 minutes which included 24 minutes of counseling and care coordination. I discussed with the nurse at bedside. Time of note may not reflect time patient was seen. Chintan Arrieta D.O Apr 02, 2020 09:17
[2020-04-02 12:00] VITALS: BP 121/62
--- NOTE | 2020-04-02 13:49 | Diagnostic Imaging Report ---
Indication:Leg pain and swelling Technique: Grayscale and duplex Doppler imaging of the veins in both lower extremities performed in real time utilizing compression and augmentation. Comparison: 12/07/2017 Findings: Duplex Doppler interrogation of the veins in both lower extremity is performed from the common femoral vein to the popliteal vein. Normal venous compressibility demonstrated throughout. No thrombus identified. Waveform analysis shows good respiratory phasicity and augmentation. IMPRESSION: No evidence of deep venous thrombosis involving the lower extremities.
--- NOTE | 2020-04-02 14:25 | Diagnostic Imaging Report ---
Indication: Foot pain, infection Technique: 2 views of the left foot Comparison: None FINDINGS/IMPRESSION: Limited exam as only 2 views were obtained in the frontal view is suboptimal. Within these limitations: No definite acute fracture is appreciated. Lisfranc alignment of the foot appears grossly maintained. There is a suspected ulceration underlying the heel with possible subcutaneous gas. Correlation with physical exam recommended as soft tissue infection is suspected. No discrete changes noted in the adjacent calcaneus to suggest acute osteomyelitis however more sensitive evaluation can be made with MRI.
[2020-04-02] MEDS: Dakin's 0.125% Soln (Quarter Strength) 16oz TOPIC SCH (14:38)
[2020-04-02 16:00] VITALS: BP 121/62
[2020-04-02] MEDS ORDERED: Gadavist 7.5mMol/7.5ml vial IV PRN (16:15)
--- NOTE | 2020-04-02 16:19 | Surgery Progress Note ---
Surgery Progress Note Subjective Additional Comments leukocytosis lactic acidosis resolved no n/v on abx Objective Last 24 Hour Vital Signs Date Time Temp Pulse Resp B/P (MAP) Pulse Ox O2 Delivery O2 Flow Rate FiO2 04/02/20 12:00 97.7 82 18 121/62 (81) 100 04/02/20 12:00 85 04/02/20 09:04 85 118/60 04/02/20 09:03 118/60 04/02/20 08:21 Room Air 04/02/20 08:00 92 04/02/20 08:00 97.9 87 20 129/67 (87) 99 04/02/20 04:00 87 04/02/20 03:52 98.1 85 20 113/52 (72) 98 04/02/20 00:00 85 04/02/20 00:00 98.8 89 20 100/55 (70) 100 04/01/20 21:00 Room Air 04/01/20 20:00 84 04/01/20 20:00 97.9 86 20 108/52 (70) 99 I&O Intake and Output 04/01/20 04/02/20 19:00 07:00 Intake Total 120 ml Output Total 500 ml 350 ml Balance -380 ml -350 ml Intake Oral 120 ml Output Urine Total 500 ml 350 ml Dressing: saturated Cardiovascular: RSR Respiratory: decreased breath sounds Abdomen: non-tender, present bowel sounds Extremities: no tenderness, no cyanosis Laboratory Tests Test 04/01/20 17:23 04/01/20 20:07 04/02/20 05:33 04/02/20 05:50 POC Whole Blood Glucose 208 MG/DL (74-106) H 280 MG/DL (74-106) H 194 MG/DL (74-106) H White Blood Count 22.2 K/UL (4.8-10.8) *H Red Blood Count 3.43 M/UL (4.20-5.40) L Hemoglobin 10.7 G/DL (12.0-16.0) L Hematocrit 32.6 % (37.0-47.0) L Mean Corpuscular Volume 95 FL (80-99) Mean Corpuscular Hemoglobin 31.1 PG (27.0-31.0) H Mean Corpuscular Hemoglobin Concent 32.7 G/DL (32.0-36.0) Red Cell Distribution Width 12.7 % (11.6-14.8) Platelet Count 376 K/UL (150-450) Mean Platelet Volume 6.9 FL (6.5-10.1) Neutrophils (%) (Auto) % (45.0-75.0) Lymphocytes (%) (Auto) % (20.0-45.0) Monocytes (%) (Auto) % (1.0-10.0) Eosinophils (%) (Auto) % (0.0-3.0) Basophils (%) (Auto) % (0.0-2.0) Differential Total Cells Counted 100 Neutrophils % (Manual) 78 % (45-75) H Lymphocytes % (Manual) 12 % (20-45) L Monocytes % (Manual) 8 % (1-10) Eosinophils % (Manual) 0 % (0-3) Basophils % (Manual) 0 % (0-2) Band Neutrophils 2 % (0-8) Platelet Estimate Adequate Platelet Morphology Normal Hypochromasia 1+ Erythrocyte Sedimentation Rate 88 MM/HR (0-30) H Prothrombin Time 11.6 SEC (9.30-11.50) H Prothromb Time International Ratio 1.1 (0.9-1.1) Activated Partial Thromboplast Time 31 SEC (23-33) Sodium Level 138 MMOL/L (136-145) Potassium Level 3.4 MMOL/L (3.5-5.1) L Chloride Level 104 MMOL/L (98-107) Carbon Dioxide Level 31 MMOL/L (21-32) Anion Gap 3 mmol/L (5-15) L Blood Urea Nitrogen 15 mg/dL (7-18) Creatinine 0.9 MG/DL (0.55-1.30) Estimat Glomerular Filtration Rate > 60 mL/min (>60) Glucose Level 174 MG/DL (74-106) H Lactic Acid Level 0.90 mmol/L (0.4-2.0) Calcium Level 7.6 MG/DL (8.5-10.1) L Magnesium Level 1.5 MG/DL (1.8-2.4) L Total Bilirubin 0.4 MG/DL (0.2-1.0) Aspartate Amino Transf (AST/SGOT) 33 U/L (15-37) Alanine Aminotransferase (ALT/SGPT) 15 U/L (12-78) Alkaline Phosphatase 120 U/L (46-116) H C-Reactive Protein, Quantitative 21.7 mg/dL (0.00-0.90) H Total Protein 5.1 G/DL (6.4-8.2) L Albumin 1.3 G/DL (3.4-5.0) L Globulin 3.8 g/dL Albumin/Globulin Ratio 0.3 (1.0-2.7) L Prealbumin Pending Amylase Level 8 U/L (25-115) L Lipase 32 U/L (73-393) L Test 04/02/20 11:59 04/02/20 12:00 POC Whole Blood Glucose 270 MG/DL (74-106) H Vancomycin Level Trough 8.1 ug/mL (5.0-12.0) Plan Problems: (1) Decubitus ulcer of heel (2) Sacral decubitus ulcer (3) Sepsis Assessment & Plan: 69-year-old female multiple comorbidities presented with failure to thrive lethargic altered mental status noted to have significant leukocytosis greater than 30,000 lactic acidosis 2.3 abnormal labs A1c 11 identified to have draining bilateral heel unstageable decubitus ulcers multiple skin lesions on the lower extremities as well as a sacral decubitus ulcer as well. Patient is currently on antibiotics under work-up microbiology identified urine noted UTI. Imaging reviewed. Patient has been eating less recently but currently is eating at the bedside though does not look like she is taking much in. Treatment plan Wash sacral area daily with normal saline apply Thera honey followed by Optifoam dressing change daily and as needed saturation Wash bilateral heels daily with normal saline. Swab with Betadine unstageable necrotic eschar on bilateral heels and cover with Optifoam dressings. Change daily and as needed saturation Lower lower extremity ulcerations saw with Betadine cover with Optifoam dressing. Turn every 2 hours Offload pressure with pillows pillow on side as necessary as well as underneath calf to elevate heels Air soft mattress nutritional optimization continue IV antibiotics per infectious disease SACRUM- STAGE - UNSTAGEABLE PRESSURE ULCER MEASURES 6.0X13.0X0.2. WOUND BED WITH 80% SLOUGH AND 20% PINK GRANULATION TISSUE. NOTED FOUL ODOR RECOMMEND-CLEAN WITH SALINE. APPLY WET TO DRY DRESSINGS WITH DAKINS 0.25% DAKIN'S SOLUTION.COVER WITH OPTIFOAM DRESSING. REPLACE DRESSING DAILY. LEFT ISCHIUM-STAGE II PRESSURE ULCER MEASURES 4.5X0.5X0.2CM. PINK GRANULATION TISSUE NOTED. RECOMMEND- CLEAN WITH SALINE, PAT DRY. APPLY CALAZINE AND COVER WITH OPTIFOAM DRESSING. LEFT ANTERIOR LOW LEG-VENOUS ULCER MEASURES 8.0X2.6X0.2CM 100% YELLOW SLOUGH NOTED TO WOUND BED. RECOMMEND- CLEAN WITH SALINE, PA DRY. APPLY THERAHONEY. COVER WITH GAUZE AND SECURE WITH KERLIX. REPLACE DRESSING DAILY. LEFT HEEL- UNSTAGEABLE PRESSURE ULCER MEASURES 9.5X8.0X0.3CM. 100% MOIST BLACK ESCHAR. WITH STRONG FOUL ODOR. RECOMMEND- CLEAN WITH SALINE. APPLY WET TO DRY DRESSINGS WITH DAKINS 0.25% DAKIN'S SOLUTION. COVER WITH GAUZE, ABD PAD AND SECURE WITH KERLIX. REPLACE DAILY. RIGHT ANTERIOR LOW LEG-VENOUS ULCER MEASURES 2.5X3.0X0.2CM WITH PINK GRANULATION TISSUE. RIGHT ANTERIOR DISTAL LOW LEG -VENOUS ULCER MEASURES 1.5X0.2X0.1CM WITH PINK GRANULATION TISSUE. RECOMMEND-CLEAN WITH SALINE PAT DRY. APPLY XEROFORM GAUZE, GAUZE AND COVER WITH KERLIX. REPLACE DAILY RIGHT HEEL-DTI MEASURES 2.5X3.0CM. AREA DARK PURPLE IN COLOR AND BOGGY TO TOUCH. NO DRAINAGE NOTED. RECOMMEND- PAINT WITH CAVILON SKIN PROTECTOR, GAUZE AND WRAP WITH KERLIX. REPLACE DAILY. We will follow with recommendations thank you for letting participate patient's care (4) UTI (urinary tract infection) (5) Hyperkalemia (6) Leukocytosis (7) Altered mental status (8) Diabetes mellitus out of control (9) Acute on chronic renal failure (10) NSTEMI (non-ST elevated myocardial infarction) (11) High anion gap metabolic acidosis Joseph Alamo Apr 02, 2020 16:19
--- NOTE | 2020-04-02 16:37 | Cardiology Report ---
APPROVED REPORT EKG Measurement Heart [id number] <Conclusion> Normal sinus rhythm T wave abnormality, consider anterolateral ischemia Abnormal ECG
--- NOTE | 2020-04-02 18:19 | Infectious Diseases Prog Note ---
Assessment/Plan Assessment/Plan A) 1) sepsis, leukocytosis, ? infected wounds, necrotic heels, e.colii uti 2) pmh noted 3) allergies - nkda P) 1) zosyn and vancomycin 2) f/u on cultures and labs 3) wound care per surgery 4) will f/u Subjective Constitutional: Denies: fever HEENT: Denies: congestion Respiratory: Denies: shortness of breath Cardiovascular: Denies: chest pain Gastrointestinal/Abdominal: Denies: nausea Neurologic: Denies: headache Allergies: Coded Allergies: PENICILLINS (Verified Allergy, Unknown, 12/05/17) Objective Last 24 Hour Vital Signs Date Time Temp Pulse Resp B/P (MAP) Pulse Ox O2 Delivery O2 Flow Rate FiO2 04/02/20 16:00 81 04/02/20 16:00 97.7 82 18 121/62 (81) 100 04/02/20 12:00 97.7 82 18 121/62 (81) 100 04/02/20 12:00 85 04/02/20 09:04 85 118/60 04/02/20 09:03 118/60 04/02/20 08:21 Room Air 04/02/20 08:00 92 04/02/20 08:00 97.9 87 20 129/67 (87) 99 04/02/20 04:00 87 04/02/20 03:52 98.1 85 20 113/52 (72) 98 04/02/20 00:00 85 04/02/20 00:00 98.8 89 20 100/55 (70) 100 04/01/20 21:00 Room Air 04/01/20 20:00 84 04/01/20 20:00 97.9 86 20 108/52 (70) 99 Height (Feet): 5 Height (Inches): 6.00 Weight (Pounds): 135 General Appearance: no acute distress HEENT: normocephalic, atraumatic, anicteric Respiratory/Chest: lungs clear, normal breath sounds, no respiratory distress Microbiology Date/Time Source Procedure Growth Status 03/31/20 16:51 Urine,Clean Catch Urine Culture - Final Escherichia Coli Complete 03/31/20 14:55 Nasopharynx SARS-CoV-2 RdRp Gene Assay - Final Complete 03/31/20 14:55 Blood Blood Culture - Preliminary NO GROWTH AFTER 24 HOURS Resulted 03/31/20 14:35 Blood Blood Culture - Preliminary NO GROWTH AFTER 24 HOURS Resulted Laboratory Tests Test 04/01/20 20:07 04/02/20 05:33 04/02/20 05:50 04/02/20 11:59 POC Whole Blood Glucose 280 MG/DL (74-106) H 194 MG/DL (74-106) H 270 MG/DL (74-106) H White Blood Count 22.2 K/UL (4.8-10.8) *H Red Blood Count 3.43 M/UL (4.20-5.40) L Hemoglobin 10.7 G/DL (12.0-16.0) L Hematocrit 32.6 % (37.0-47.0) L Mean Corpuscular Volume 95 FL (80-99) Mean Corpuscular Hemoglobin 31.1 PG (27.0-31.0) H Mean Corpuscular Hemoglobin Concent 32.7 G/DL (32.0-36.0) Red Cell Distribution Width 12.7 % (11.6-14.8) Platelet Count 376 K/UL (150-450) Mean Platelet Volume 6.9 FL (6.5-10.1) Neutrophils (%) (Auto) % (45.0-75.0) Lymphocytes (%) (Auto) % (20.0-45.0) Monocytes (%) (Auto) % (1.0-10.0) Eosinophils (%) (Auto) % (0.0-3.0) Basophils (%) (Auto) % (0.0-2.0) Differential Total Cells Counted 100 Neutrophils % (Manual) 78 % (45-75) H Lymphocytes % (Manual) 12 % (20-45) L Monocytes % (Manual) 8 % (1-10) Eosinophils % (Manual) 0 % (0-3) Basophils % (Manual) 0 % (0-2) Band Neutrophils 2 % (0-8) Platelet Estimate Adequate Platelet Morphology Normal Hypochromasia 1+ Erythrocyte Sedimentation Rate 88 MM/HR (0-30) H Prothrombin Time 11.6 SEC (9.30-11.50) H Prothromb Time International Ratio 1.1 (0.9-1.1) Activated Partial Thromboplast Time 31 SEC (23-33) Sodium Level 138 MMOL/L (136-145) Potassium Level 3.4 MMOL/L (3.5-5.1) L Chloride Level 104 MMOL/L (98-107) Carbon Dioxide Level 31 MMOL/L (21-32) Anion Gap 3 mmol/L (5-15) L Blood Urea Nitrogen 15 mg/dL (7-18) Creatinine 0.9 MG/DL (0.55-1.30) Estimat Glomerular Filtration Rate > 60 mL/min (>60) Glucose Level 174 MG/DL (74-106) H Lactic Acid Level 0.90 mmol/L (0.4-2.0) Calcium Level 7.6 MG/DL (8.5-10.1) L Magnesium Level 1.5 MG/DL (1.8-2.4) L Total Bilirubin 0.4 MG/DL (0.2-1.0) Aspartate Amino Transf (AST/SGOT) 33 U/L (15-37) Alanine Aminotransferase (ALT/SGPT) 15 U/L (12-78) Alkaline Phosphatase 120 U/L (46-116) H C-Reactive Protein, Quantitative 21.7 mg/dL (0.00-0.90) H Total Protein 5.1 G/DL (6.4-8.2) L Albumin 1.3 G/DL (3.4-5.0) L Globulin 3.8 g/dL Albumin/Globulin Ratio 0.3 (1.0-2.7) L Prealbumin Pending Amylase Level 8 U/L (25-115) L Lipase 32 U/L (73-393) L Test 04/02/20 12:00 04/02/20 17:51 Vancomycin Level Trough 8.1 ug/mL (5.0-12.0) POC Whole Blood Glucose 379 MG/DL (74-106) H Current Medications Medications (Trade) Dose Ordered Sig/Enrike Route PRN Reason Start Time Stop Time Status Last Admin Dose Admin Acetaminophen (Tylenol) 650 mg Q4H PRN ORAL Temp >100.5 03/31/20 19:00 04/30/20 18:59 04/01/20 13:05 Acetaminophen (Tylenol) 650 mg Q4H PRN ORAL Mild Pain (Pain Scale 1-3) 03/31/20 19:00 04/30/20 18:59 Al Hydroxide/Mg Hydroxide (Mylanta II) 30 ml Q6H PRN ORAL dyspepsia 03/31/20 19:00 04/30/20 18:59 Albuterol/ Ipratropium (Albuterol/ Ipratropium) 3 ml Q4H PRN HHN Shortness of Breath 03/31/20 19:00 04/05/20 18:59 Amlodipine Besylate (Norvasc) 5 mg DAILY ORAL 04/01/20 09:00 05/01/20 08:59 04/02/20 09:04 Aspirin (ASA) 81 mg DAILY ORAL 04/01/20 09:00 05/16/20 08:59 04/02/20 09:03 Atorvastatin Calcium (Lipitor) 80 mg BEDTIME ORAL 03/31/20 21:00 06/29/20 20:59 04/01/20 20:22 Benazepril HCl (Lotensin) 40 mg DAILY ORAL 04/01/20 09:00 05/01/20 08:59 04/02/20 09:03 Dextrose (Dextrose 50%) 25 ml Q30M PRN IV Hypoglycemia 03/31/20 20:30 06/29/20 20:29 Dextrose (Dextrose 50%) 50 ml Q30M PRN IV Hypoglycemia 03/31/20 20:30 06/29/20 20:29 Enoxaparin Sodium (Lovenox) 40 mg Q24H SUBQ 03/31/20 21:00 06/29/20 20:59 04/01/20 20:24 Gadobutrol (Gadavist) 7.5 mmol NOW PRN IV Radiology Procedure 04/02/20 16:15 04/06/20 16:14 Insulin Aspart (NovoLOG) BEFORE MEALS AND HS SUBQ 03/31/20 21:00 06/29/20 20:59 04/02/20 16:30 Insulin Detemir (Levemir) 13 units QHS SUBQ 03/31/20 22:00 06/29/20 21:59 04/01/20 20:24 Magnesium Hydroxide (Mom) 30 ml HSPRN PRN ORAL Constipation 03/31/20 19:00 04/30/20 18:59 Ondansetron HCl (Zofran) 4 mg Q6H PRN IVP Nausea & Vomiting 03/31/20 19:00 04/30/20 18:59 Piperacillin Sod/ Tazobactam Sod 3.375 gm/Sodium Chloride 110 ml @ 27.5 mls/hr Q8HR IVPB 03/31/20 22:00 04/07/20 21:59 04/02/20 13:44 Sodium Hypochlorite (Dakin's Quarter Strength) 1 applic DAILY TOPIC 04/03/20 09:00 05/03/20 08:59 04/02/20 14:38 Sodium Chloride 1,000 ml @ 125 mls/hr Q8H IVLG 03/31/20 21:00 04/30/20 20:59 04/02/20 13:43 Vancomycin HCl (Vanco pharmacy to dose) 1 ea DAILY PRN MISC Per rx protocol 03/31/20 19:15 04/30/20 19:14 Vancomycin HCl 1 gm/Dextrose 275 ml @ 183.708 mls/hr Q12H IVPB 04/03/20 01:00 04/08/20 00:59 Elyse Leung MD Apr 02, 2020 18:19
[2020-04-02 20:00] VITALS: BP 143/70
--- NOTE | 2020-04-02 20:29 | Consultation ---
DATE OF CONSULTATION: 04/02/2020 INFECTIOUS DISEASES CONSULTATION CONSULTING PHYSICIAN: Elyse Leung MD ATTENDING PHYSICIAN: Reynaldo Veras MD REFERRING PHYSICIAN: Chintan Arrieta DO. REASON FOR CONSULTATION: Sepsis, E. coli UTI, infected wounds, leukocytosis, fevers. CHIEF COMPLAINT: The patient's chief complaint into the hospital is sepsis, leukocytosis, fevers, infected wounds, altered mental status, encephalopathy. HISTORY OF PRESENT ILLNESS: The patient is a 69-year-old female who comes into [facility] with multiple medical problems. The patient was noted to be septic, elevated white count, fevers. White count of 30,000. The patient has E. coli UTI. The patient had infected wounds of lower extremities, most prominently in the heels. She also has sacral wound infection. The patient is being followed by Surgery. Infectious Diseases consult requested. The patient is vancomycin and Zosyn. REVIEW OF SYSTEMS: The patient is not a very good historian. She has multiple wounds. She came in with fevers.CARDIAC: No chest pain. GASTROINTESTINAL: No nausea, vomiting, or diarrhea. GENITOURINARY: No Vargas. PULMONARY: No significant shortness of breath. PAST MEDICAL HISTORY: The patient has a past medical history of diabetes, wounds, weakness, encephalopathy, hypertension. MEDICATIONS: Upon reviewing the MAR, she is on following medications. She is on vancomycin, Zosyn. She is on insulin, aspirin, benazepril, atorvastatin, enoxaparin, acetaminophen as needed, albuterol as needed. Outside medications noted and reconciliated. ALLERGIES: She has allergies to penicillin, is tolerating Zosyn very well. SOCIAL HISTORY: Negative for smoking, alcohol, drug abuse. FAMILY HISTORY: Noncontributory. PHYSICAL EXAMINATION: VITAL SIGNS: Temperature 97.7, pulse rate 81, respiratory rate 18, blood pressure 121/62, otherwise 100%, T-max 100.8. Pulse rate has been as 106. GENERAL: Weak, responsive. HEAD AND NECK: Oral exam, no thrush. Eyes, no icterus. Normocephalic. Neck is supple. No JVD. HEART: Regular. No gallop or murmur. LUNGS: Clear bilaterally. No rhonchi or rales. ABDOMEN: Soft. Positive bowel sounds. Nontender. SKIN: No rash or dermatitis. MUSCULOSKELETAL: No joint pain in the legs. EXTREMITIES: Lower extremity exam, she has by heel infected wounds, necrotic. She also has significant sacral wound infection. GENITOURINARY: No Vargas. LINE SITES: Without phlebitis. NEUROLOGIC: Generalized weakness. Alert and responsive. LABORATORY DATA: UA had 5 to 10 white blood cells, moderate bacteria. Creatinine 0.9. White count 22.2, hemoglobin 10.7. Sed rate 88. White count on admission 35.2. Urine culture with greater 100,000 E. coli, pansensitive. Blood cultures negative. SARS test and COVID testing is negative. Chest x-ray showed no focal consolidation. X-ray of the feet showed no definitive discrete changes to suggest acute osteomyelitis, possible subcutaneous gas and ulcers. ASSESSMENT AND PLAN: The patient has sepsis, leukocytosis, fevers, SIRS criteria. The patient has E.coli UTI with sepsis. The patient has infected wounds most prominently in the necrotic wounds of the bilateral heels and also the sacral area. The patient will be continued on vancomycin and Zosyn for gram-positive, gram-negative, anaerobic coverage. Continue vancomycin and Zosyn for sepsis, E. coli UTI, infected wound of sacral and heels, leukocytosis, fevers. Continue wound care per Surgery. Check followup laboratories. Chest x-ray without consolidation. The patient is on day #2 of antibiotics. Continue vancomycin and Zosyn for now. 1. Diabetes. 2. Hypertension. 3. Wounds. 4. Weakness. 5. Encephalopathy. 6. Allergic to penicillin, tolerates Zosyn. 7. Family history is noncontributory. 8. MAR was noted. 9. Case discussed with RN. 10. Continue treatment per primary consultants. Elyse Leung M.D. DR: Magnus JOB#: [id number] CC:
--- NOTE | 2020-04-02 21:01 | Neurology Progress Note ---
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 Pt has been on/off confused, LE weakness with infection on atb, pain Objective Physical Exam Last Vital Signs Date Time Temp Pulse Resp B/P (MAP) Pulse Ox O2 Delivery O2 Flow Rate FiO2 04/02/20 16:00 81 04/02/20 16:00 97.7 18 121/62 (81) 100 04/02/20 08:21 Room Air 04/01/20 06:58 21 Laboratory Tests Test 04/02/20 05:33 04/02/20 05:50 04/02/20 11:59 04/02/20 12:00 POC Whole Blood Glucose 194 MG/DL (74-106) H 270 MG/DL (74-106) H White Blood Count 22.2 K/UL (4.8-10.8) *H Red Blood Count 3.43 M/UL (4.20-5.40) L Hemoglobin 10.7 G/DL (12.0-16.0) L Hematocrit 32.6 % (37.0-47.0) L Mean Corpuscular Volume 95 FL (80-99) Mean Corpuscular Hemoglobin 31.1 PG (27.0-31.0) H Mean Corpuscular Hemoglobin Concent 32.7 G/DL (32.0-36.0) Red Cell Distribution Width 12.7 % (11.6-14.8) Platelet Count 376 K/UL (150-450) Mean Platelet Volume 6.9 FL (6.5-10.1) Neutrophils (%) (Auto) % (45.0-75.0) Lymphocytes (%) (Auto) % (20.0-45.0) Monocytes (%) (Auto) % (1.0-10.0) Eosinophils (%) (Auto) % (0.0-3.0) Basophils (%) (Auto) % (0.0-2.0) Differential Total Cells Counted 100 Neutrophils % (Manual) 78 % (45-75) H Lymphocytes % (Manual) 12 % (20-45) L Monocytes % (Manual) 8 % (1-10) Eosinophils % (Manual) 0 % (0-3) Basophils % (Manual) 0 % (0-2) Band Neutrophils 2 % (0-8) Platelet Estimate Adequate Platelet Morphology Normal Hypochromasia 1+ Erythrocyte Sedimentation Rate 88 MM/HR (0-30) H Prothrombin Time 11.6 SEC (9.30-11.50) H Prothromb Time International Ratio 1.1 (0.9-1.1) Activated Partial Thromboplast Time 31 SEC (23-33) Sodium Level 138 MMOL/L (136-145) Potassium Level 3.4 MMOL/L (3.5-5.1) L Chloride Level 104 MMOL/L (98-107) Carbon Dioxide Level 31 MMOL/L (21-32) Anion Gap 3 mmol/L (5-15) L Blood Urea Nitrogen 15 mg/dL (7-18) Creatinine 0.9 MG/DL (0.55-1.30) Estimat Glomerular Filtration Rate > 60 mL/min (>60) Glucose Level 174 MG/DL (74-106) H Lactic Acid Level 0.90 mmol/L (0.4-2.0) Calcium Level 7.6 MG/DL (8.5-10.1) L Magnesium Level 1.5 MG/DL (1.8-2.4) L Total Bilirubin 0.4 MG/DL (0.2-1.0) Aspartate Amino Transf (AST/SGOT) 33 U/L (15-37) Alanine Aminotransferase (ALT/SGPT) 15 U/L (12-78) Alkaline Phosphatase 120 U/L (46-116) H C-Reactive Protein, Quantitative 21.7 mg/dL (0.00-0.90) H Total Protein 5.1 G/DL (6.4-8.2) L Albumin 1.3 G/DL (3.4-5.0) L Globulin 3.8 g/dL Albumin/Globulin Ratio 0.3 (1.0-2.7) L Prealbumin Pending Amylase Level 8 U/L (25-115) L Lipase 32 U/L (73-393) L Vancomycin Level Trough 8.1 ug/mL (5.0-12.0) Test 04/02/20 17:51 POC Whole Blood Glucose 379 MG/DL (74-106) H General: well nourished Head: normocophalic Neck: no rigidity Neurologic Exam Mental Status: awake Objective confused, follows midline oriened to self LE weakness and numbness Impression/Recommendations Problems: (1) Sepsis (2) UTI (urinary tract infection) (3) Hyperkalemia (4) Leukocytosis (5) Altered mental status (6) Diabetes mellitus out of control (7) Acute on chronic renal failure (8) NSTEMI (non-ST elevated myocardial infarction) (9) High anion gap metabolic acidosis (10) Sacral decubitus ulcer (11) Decubitus ulcer of heel Diagnostic Impression acute encephalopathy, likely metabolic, fluctuating. LE weakness Cellulitis. Diabetes Delirium precautions ordered Cont atb PT as able Thee Lee MD Apr 02, 2020 21:01
[2020-04-02] MEDS: Atorvastatin 80mg tab ORAL SCH (21:28)
[2020-04-02] MEDS: Enoxaparin 40mg Inj SUBQ SCH (21:29)
[2020-04-02] MEDS: Levemir Flexpen SUBQ SCH (21:38)
[2020-04-03] VITALS: BP 135/65
[2020-04-03] MEDS: Vancomycin 1gm/D5W 275ml IVPB SCH ×4 (01:00→13:07)
[2020-04-03 04:00] VITALS: BP 111/57
[2020-04-03] MEDS: Piperacillin/Tazobactam 3.375 GM in NS 110 ML IVPB SCH ×3 (05:48→21:07)
[2020-04-03] MEDS: NovoLOG Insulin Flexpen SUBQ SCH ×6 (06:36→21:07)
[2020-04-03 06:45] LABS: HEMATOCRIT 33.7 % (37.0-47.0); HEMOGLOBIN 10.9 G/DL (12.0-16.0); MEAN CORPUSCULAR VOLUME 96 FL (80-99); PLATELET COUNT 390 K/UL (150-450); RED BLOOD COUNT 3.51 M/UL (4.20-5.40); WHITE BLOOD COUNT 18.2 K/UL (4.8-10.8)
[2020-04-03 07:14] LABS: ANION GAP 5 mmol/L (5-15); BLOOD UREA NITROGEN 10 mg/dL (7-18); CALCIUM 7.5 MG/DL (8.5-10.1); CARBON DIOXIDE 27 MMOL/L (21-32); CHLORIDE 105 MMOL/L (98-107); CREATININE 0.7 MG/DL (0.55-1.30); POTASSIUM 3.6 MMOL/L (3.5-5.1); SODIUM 137 MMOL/L (136-145)
[2020-04-03] MEDS ORDERED: Magnesium Oxide 400mg tab ORAL SCH (07:45)
[2020-04-03 08:00] VITALS: BP 110/55
[2020-04-03] MEDS: Aspirin Baby 81mg ORAL SCH (08:32)
[2020-04-03] MEDS: Dakin's 0.125% Soln (Quarter Strength) 16oz TOPIC SCH (08:33)
--- NOTE | 2020-04-03 09:16 | General Progress Note ---
Subjective Constitutional: Denies: no symptoms, chills, diaphoresis, fever, malaise, weakness, other HEENT: Denies: no symptoms, eye pain, blurred vision, tearing, double vision, ear pain, ear discharge, nose pain, nose congestion, throat pain, throat swelling, mouth pain, mouth swelling, other Cardiovascular: Denies: no symptoms, chest pain, edema, irregular heart rate, lightheadedness, palpitations, syncope, other Respiratory: Denies: no symptoms, cough, orthopnea, shortness of breath, SOB with excertion, SOB at rest, sputum, stridor, wheezing, other Gastrointestinal/Abdominal: Denies: no symptoms, abdomen distended, abdominal pain, black stools, tarry stools, blood in stool, constipated, diarrhea, difficulty swallowing, nausea, poor appetite, poor fluid intake, rectal bleeding, vomiting, other Genitourinary: Denies: no symptoms, burning, discharge, frequency, flank pain, hematuria, incontinence, pain, urgency, other Neurologic/Psychiatric: Denies: no symptoms, anxiety, depressed, emotional problems, headache, numbness, paresthesia, pre-existing deficit, seizure, tingling, tremors, weakness, other Endocrine: Denies: no symptoms, excessive sweating, flushing, intolerance to cold, intolerance to heat, increased hunger, increased thirst, increased urine, unexplained weight gain, unexplained weight loss, other Hematologic/Lymphatic: Denies: no symptoms, anemia, easy bleeding, easy bruising, other Allergies: Coded Allergies: PENICILLINS (Verified Allergy, Unknown, 12/05/17) Subjective no acute events overngiht. Patient sleeping comfortably upon arrival this morning. No fevers, lower extremities pain improved. No new complaints today. Foot strain negative for osteomyelitis, will work-up with MRI. Objective Last 24 Hour Vital Signs Date Time Temp Pulse Resp B/P (MAP) Pulse Ox O2 Delivery O2 Flow Rate FiO2 04/03/20 08:32 111/57 04/03/20 08:32 87 111/57 04/03/20 04:00 99.0 84 19 111/57 (75) 95 04/03/20 04:00 87 04/03/20 00:00 90 04/03/20 00:00 98.5 70 19 135/65 (88) 95 11/20/20 21:00 Room Air 04/02/20 20:00 98.1 86 22 143/70 (94) 98 04/02/20 20:00 88 04/02/20 16:00 81 04/02/20 16:00 97.7 82 18 121/62 (81) 100 04/02/20 12:00 97.7 82 18 121/62 (81) 100 04/02/20 12:00 85 Intake and Output 04/02/20 04/03/20 19:00 07:00 Intake Total 720 ml Output Total 1200 ml 500 ml Balance -480 ml -500 ml Intake Oral 720 ml Output Urine Total 1200 ml 500 ml # Bowel Movements 1 Laboratory Tests 04/02/20 11:59: POC Whole Blood Glucose 270H 04/02/20 12:00: Vancomycin Level Trough 8.1 04/02/20 17:51: POC Whole Blood Glucose 379H 04/02/20 21:35: POC Whole Blood Glucose 235H 04/03/20 05:42: POC Whole Blood Glucose [Pending] 04/03/20 06:30: White Blood Count 18.2H, Red Blood Count 3.51L, Hemoglobin 10.9L, Hematocrit 33.7L, Mean Corpuscular Volume 96, Mean Corpuscular Hemoglobin 31.2H, Mean Corpuscular Hemoglobin Concent 32.4, Red Cell Distribution Width 13.0, Platelet Count 390, Mean Platelet Volume 7.2, Neutrophils (%) (Auto) , Lymphocytes (%) (Auto) , Monocytes (%) (Auto) , Eosinophils (%) (Auto) , Basophils (%) (Auto) , Neutrophils % (Manual) [Pending], Lymphocytes % (Manual) [Pending], Platelet Estimate [Pending], Platelet Morphology [Pending], Sodium Level 137, Potassium Level 3.6, Chloride Level 105, Carbon Dioxide Level 27, Anion Gap 5, Blood Urea Nitrogen 10, Creatinine 0.7, Estimat Glomerular Filtration Rate > 60, Glucose Level 219H, Calcium Level 7.5L, Magnesium Level 1.7L Height (Feet): 5 Height (Inches): 6.00 Weight (Pounds): 135 General Appearance: no apparent distress, alert, confused EENT: PERRL/EOMI, normal ENT inspection Neck: non-tender, normal alignment Cardiovascular: normal rate, regular rhythm, no JVD Respiratory/Chest: lungs clear, normal breath sounds, no respiratory distress Abdomen: normal bowel sounds, non tender, soft Extremities: other - Bilateral lower extremities wrapped in dressing Edema: no edema noted Arm (L), no edema noted Arm (R), no edema noted Leg (L), no edema noted Leg (R), no edema noted Pedal (L), no edema noted Pedal (R), no edema noted Generalized 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 Barroso is a 69-year-old female with possible history of diabetes mellitus is presenting for acute encephalopathy. A: #Acute encephalopathy likely secondary to infectious etiology versus toxic metabolicimproving #Sepsis with UTI, cellulitis, foot ulcer source, possible osteomyelitis of the left lower extremity #UTI #Left lower extremity heel ulcer w/ possible osteomyelitis #Left lower extremity cellulitis #Bilateral lower extremity venous dermatitis #Bilateral lower extremity edema #Lactic acidosis #Diabetes mellitus uncontrolled; A1c 11.2 #Essential hypertension P: continue broad spec antibiotics with vancomycin and Zosyn Follow-up urinary cultures, blood cultures, MRSA screen, wound culture Blood cultures negative for 48 hours - ESR increased to 80 today Left foot x-ray negative for osteomyelitis, bilateral lower extremities ultrasound negative for DVT Follow-up MRI of left lower extremity to rule out osteomyelitis Increase 13 to 18 units of Levemir daily We will start Premeal insulin at 5 units Continue moderate insulin sliding scale, reassess daily insulin requirements Blood glucose goal is 140-180 Continue home Lipitor, amlodipine, lisinopril Wound consult Consult Dr. Alamo, general surgery, recs appreciated Consult Dr. Ernst, ID, recs appreciated Consult Dr. Lee, neurology, recs appreciated CM Code: Full, will need to discuss further with family or patient as when she gets better Diet: Diabetic Fluids: NS 75 DVT prophylaxis: Lovenox 40 mg daily Dispo: Pending MRI of left lower extremity Time spent on this encounter was 41 minutes which included 24 minutes of counseling and care coordination. I discussed with the nurse at bedside. Time of note may not reflect time patient was seen. Chintan Arrieta D.O Apr 03, 2020 09:16
[2020-04-03 12:00] VITALS: BP 112/58
--- NOTE | 2020-04-03 13:12 | Surgery Progress Note ---
Surgery Progress Note Subjective Additional Comments labs improving more comfortable downgrade today no n/v diet as tolerated Objective Last 24 Hour Vital Signs Date Time Temp Pulse Resp B/P (MAP) Pulse Ox O2 Delivery O2 Flow Rate FiO2 04/03/20 09:00 Room Air 04/03/20 08:32 111/57 04/03/20 08:32 87 111/57 04/03/20 08:00 88 04/03/20 08:00 97.9 87 20 110/55 (73) 97 04/03/20 04:00 99.0 84 19 111/57 (75) 95 04/03/20 04:00 87 04/03/20 00:00 90 04/03/20 00:00 98.5 70 19 135/65 (88) 95 04/02/20 21:00 Room Air 04/02/20 20:00 98.1 86 22 143/70 (94) 98 04/02/20 20:00 88 04/02/20 16:00 81 04/02/20 16:00 97.7 82 18 121/62 (81) 100 I&O Intake and Output 04/02/20 04/03/20 19:00 07:00 Intake Total 720 ml Output Total 1200 ml 500 ml Balance -480 ml -500 ml Intake Oral 720 ml Output Urine Total 1200 ml 500 ml # Bowel Movements 1 Dressing: saturated Cardiovascular: RSR Respiratory: decreased breath sounds Abdomen: soft, non-tender, present bowel sounds, non-distended Extremities: no tenderness, no cyanosis Laboratory Tests Test 04/02/20 17:51 04/02/20 21:35 04/03/20 05:42 04/03/20 06:30 POC Whole Blood Glucose 379 MG/DL (74-106) H 235 MG/DL (74-106) H Pending White Blood Count 18.2 K/UL (4.8-10.8) H Red Blood Count 3.51 M/UL (4.20-5.40) L Hemoglobin 10.9 G/DL (12.0-16.0) L Hematocrit 33.7 % (37.0-47.0) L Mean Corpuscular Volume 96 FL (80-99) Mean Corpuscular Hemoglobin 31.2 PG (27.0-31.0) H Mean Corpuscular Hemoglobin Concent 32.4 G/DL (32.0-36.0) Red Cell Distribution Width 13.0 % (11.6-14.8) Platelet Count 390 K/UL (150-450) Mean Platelet Volume 7.2 FL (6.5-10.1) Neutrophils (%) (Auto) % (45.0-75.0) Lymphocytes (%) (Auto) % (20.0-45.0) Monocytes (%) (Auto) % (1.0-10.0) Eosinophils (%) (Auto) % (0.0-3.0) Basophils (%) (Auto) % (0.0-2.0) Differential Total Cells Counted 100 Neutrophils % (Manual) 79 % (45-75) H Lymphocytes % (Manual) 12 % (20-45) L Monocytes % (Manual) 8 % (1-10) Eosinophils % (Manual) 1 % (0-3) Basophils % (Manual) 0 % (0-2) Band Neutrophils 0 % (0-8) Platelet Estimate Adequate Platelet Morphology Normal Hypochromasia 1+ Sodium Level 137 MMOL/L (136-145) Potassium Level 3.6 MMOL/L (3.5-5.1) Chloride Level 105 MMOL/L (98-107) Carbon Dioxide Level 27 MMOL/L (21-32) Anion Gap 5 mmol/L (5-15) Blood Urea Nitrogen 10 mg/dL (7-18) Creatinine 0.7 MG/DL (0.55-1.30) Estimat Glomerular Filtration Rate > 60 mL/min (>60) Glucose Level 219 MG/DL (74-106) H Calcium Level 7.5 MG/DL (8.5-10.1) L Magnesium Level 1.7 MG/DL (1.8-2.4) L Plan Problems: (1) Decubitus ulcer of heel (2) Sacral decubitus ulcer (3) Sepsis Assessment & Plan: 69-year-old female multiple comorbidities presented with failure to thrive lethargic altered mental status noted to have significant leukocytosis greater than 30,000 lactic acidosis 2.3 abnormal labs A1c 11 identified to have draining bilateral heel unstageable decubitus ulcers multiple skin lesions on the lower extremities as well as a sacral decubitus ulcer as well. Patient is currently on antibiotics under work-up microbiology identified urine noted UTI. Imaging reviewed. Patient has been eating less recently but currently is eating at the bedside though does not look like she is taking much in. Treatment plan Wash sacral area daily with normal saline apply Thera honey followed by Optifoam dressing change daily and as needed saturation Wash bilateral heels daily with normal saline. Swab with Betadine unstageable necrotic eschar on bilateral heels and cover with Optifoam dressings. Change daily and as needed saturation Lower lower extremity ulcerations saw with Betadine cover with Optifoam dressing. Turn every 2 hours Offload pressure with pillows pillow on side as necessary as well as underneath calf to elevate heels Air soft mattress nutritional optimization continue IV antibiotics per infectious disease SACRUM- STAGE - UNSTAGEABLE PRESSURE ULCER MEASURES 6.0X13.0X0.2. WOUND BED WITH 80% SLOUGH AND 20% PINK GRANULATION TISSUE. NOTED FOUL ODOR RECOMMEND-CLEAN WITH SALINE. APPLY WET TO DRY DRESSINGS WITH DAKINS 0.25% DAKIN'S SOLUTION.COVER WITH OPTIFOAM DRESSING. REPLACE DRESSING DAILY. LEFT ISCHIUM-STAGE II PRESSURE ULCER MEASURES 4.5X0.5X0.2CM. PINK GRANULATION TISSUE NOTED. RECOMMEND- CLEAN WITH SALINE, PAT DRY. APPLY CALAZINE AND COVER WITH OPTIFOAM DRESSING. LEFT ANTERIOR LOW LEG-VENOUS ULCER MEASURES 8.0X2.6X0.2CM 100% YELLOW SLOUGH NOTED TO WOUND BED. RECOMMEND- CLEAN WITH SALINE, PA DRY. APPLY THERAHONEY. COVER WITH GAUZE AND SECURE WITH KERLIX. REPLACE DRESSING DAILY. LEFT HEEL- UNSTAGEABLE PRESSURE ULCER MEASURES 9.5X8.0X0.3CM. 100% MOIST BLACK ESCHAR. WITH STRONG FOUL ODOR. RECOMMEND- CLEAN WITH SALINE. APPLY WET TO DRY DRESSINGS WITH DAKINS 0.25% DAKIN'S SOLUTION. COVER WITH GAUZE, ABD PAD AND SECURE WITH KERLIX. REPLACE DAILY. RIGHT ANTERIOR LOW LEG-VENOUS ULCER MEASURES 2.5X3.0X0.2CM WITH PINK GRANULATION TISSUE. RIGHT ANTERIOR DISTAL LOW LEG -VENOUS ULCER MEASURES 1.5X0.2X0.1CM WITH PINK GRANULATION TISSUE. RECOMMEND-CLEAN WITH SALINE PAT DRY. APPLY XEROFORM GAUZE, GAUZE AND COVER WITH KERLIX. REPLACE DAILY RIGHT HEEL-DTI MEASURES 2.5X3.0CM. AREA DARK PURPLE IN COLOR AND BOGGY TO TOUCH. NO DRAINAGE NOTED. RECOMMEND- PAINT WITH CAVILON SKIN PROTECTOR, GAUZE AND WRAP WITH KERLIX. REPLACE DAILY. We will follow with recommendations thank you for letting participate patient's care (4) UTI (urinary tract infection) (5) Hyperkalemia (6) Leukocytosis (7) Altered mental status (8) Diabetes mellitus out of control (9) Acute on chronic renal failure (10) NSTEMI (non-ST elevated myocardial infarction) (11) High anion gap metabolic acidosis Joseph Alamo Apr 03, 2020 13:12
[2020-04-03] MEDS ORDERED: NS 275ml ONE (15:45)
[2020-04-03] MEDS ORDERED: Tubing IV Secondary IV ONE (15:45)
[2020-04-03 16:00] VITALS: BP 117/52
[2020-04-03 20:00] VITALS: BP 118/76
[2020-04-03] MEDS ORDERED: Levemir Flexpen SUBQ SCH (21:00)
[2020-04-03] MEDS: Atorvastatin 80mg tab ORAL SCH ×2 (21:00→21:04)
[2020-04-03] MEDS: Enoxaparin 40mg Inj SUBQ SCH (21:05)
--- NOTE | 2020-04-03 21:41 | Consultation ---
History of Present Illness General Date patient seen: Apr 01, 2020 Chief Complaint: Altered Mental Status Reason for Consultation: ams Present Illness HPI Pt presented with altered mental status lethargy decreased oral intake failure to thrive and identified to have significant leukocytosis abnormal labs admitted for further care and management. Pt has been on/off confused, LE weakness with infection on atb, pain Allergies: Coded Allergies: PENICILLINS (Verified Allergy, Unknown, 12/05/17) Medication History Scheduled Amlodipine Besylate* (Amlodipine Besylate*), 5 MG ORAL DAILY, (Reported) Aspirin* (Aspirin*), 81 MG ORAL DAILY, (Reported) Atorvastatin Calcium* (Lipitor*), 80 MG ORAL BEDTIME, (Reported) Benazepril Hcl* (Benazepril Hcl*), 40 MG ORAL DAILY, (Reported) Insulin Glargine (Lantus), 20 UNITS SUBQ QHS, (Reported) Insulin Lispro (Humalog), 4 UNITS SUBQ THREE TIMES A DAY, (Reported) Metformin Hcl* (Metformin Hcl*), 500 MG ORAL TWICE A DAY, (Reported) Discontinued Medications Insulin Lispro (Humalog), 8 SUBQ BREAKFAST,LUNCH, (Reported) Discontinued Reason: Medication dose changed Patient History Healthcare decision maker Resuscitation status Advanced Directive on File Physical Exam Last 24 Hour Vital Signs Date Time Temp Pulse Resp B/P (MAP) Pulse Ox O2 Delivery O2 Flow Rate FiO2 04/03/20 16:00 98.4 84 20 117/52 (73) 99 04/03/20 12:00 98.1 80 20 112/58 (76) 98 04/03/20 09:00 Room Air 04/03/20 08:32 111/57 04/03/20 08:32 87 111/57 04/03/20 08:00 88 04/03/20 08:00 97.9 87 20 110/55 (73) 97 04/03/20 04:00 99.0 84 19 111/57 (75) 95 04/03/20 04:00 87 04/03/20 00:00 90 04/03/20 00:00 98.5 70 19 135/65 (88) 95 Intake and Output 04/02/20 04/03/20 19:00 07:00 Intake Total 720 ml Output Total 1200 ml 500 ml Balance -480 ml -500 ml Intake Oral 720 ml Output Urine Total 1200 ml 500 ml # Bowel Movements 1 Laboratory Tests Test 04/03/20 05:42 04/03/20 06:30 04/03/20 17:42 04/03/20 20:57 POC Whole Blood Glucose Pending 321 MG/DL (74-106) H 223 MG/DL (74-106) H White Blood Count 18.2 K/UL (4.8-10.8) H Red Blood Count 3.51 M/UL (4.20-5.40) L Hemoglobin 10.9 G/DL (12.0-16.0) L Hematocrit 33.7 % (37.0-47.0) L Mean Corpuscular Volume 96 FL (80-99) Mean Corpuscular Hemoglobin 31.2 PG (27.0-31.0) H Mean Corpuscular Hemoglobin Concent 32.4 G/DL (32.0-36.0) Red Cell Distribution Width 13.0 % (11.6-14.8) Platelet Count 390 K/UL (150-450) Mean Platelet Volume 7.2 FL (6.5-10.1) Neutrophils (%) (Auto) % (45.0-75.0) Lymphocytes (%) (Auto) % (20.0-45.0) Monocytes (%) (Auto) % (1.0-10.0) Eosinophils (%) (Auto) % (0.0-3.0) Basophils (%) (Auto) % (0.0-2.0) Differential Total Cells Counted 100 Neutrophils % (Manual) 79 % (45-75) H Lymphocytes % (Manual) 12 % (20-45) L Monocytes % (Manual) 8 % (1-10) Eosinophils % (Manual) 1 % (0-3) Basophils % (Manual) 0 % (0-2) Band Neutrophils 0 % (0-8) Platelet Estimate Adequate Platelet Morphology Normal Hypochromasia 1+ Sodium Level 137 MMOL/L (136-145) Potassium Level 3.6 MMOL/L (3.5-5.1) Chloride Level 105 MMOL/L (98-107) Carbon Dioxide Level 27 MMOL/L (21-32) Anion Gap 5 mmol/L (5-15) Blood Urea Nitrogen 10 mg/dL (7-18) Creatinine 0.7 MG/DL (0.55-1.30) Estimat Glomerular Filtration Rate > 60 mL/min (>60) Glucose Level 219 MG/DL (74-106) H Calcium Level 7.5 MG/DL (8.5-10.1) L Magnesium Level 1.7 MG/DL (1.8-2.4) L Height (Feet): 5 Height (Inches): 6.00 Weight (Pounds): 135 Medications Current Medications Medications (Trade) Dose Ordered Sig/Enrike Route PRN Reason Start Time Stop Time Status Last Admin Dose Admin Acetaminophen (Tylenol) 650 mg Q4H PRN ORAL Temp >100.5 03/31/20 19:00 04/30/20 18:59 04/01/20 13:05 Acetaminophen (Tylenol) 650 mg Q4H PRN ORAL Mild Pain (Pain Scale 1-3) 03/31/20 19:00 04/30/20 18:59 Al Hydroxide/Mg Hydroxide (Mylanta II) 30 ml Q6H PRN ORAL dyspepsia 03/31/20 19:00 04/30/20 18:59 Albuterol/ Ipratropium (Albuterol/ Ipratropium) 3 ml Q4H PRN HHN Shortness of Breath 03/31/20 19:00 04/05/20 18:59 Amlodipine Besylate (Norvasc) 5 mg DAILY ORAL 04/01/20 09:00 05/01/20 08:59 04/03/20 08:32 Aspirin (ASA) 81 mg DAILY ORAL 04/01/20 09:00 05/16/20 08:59 04/03/20 08:32 Atorvastatin Calcium (Lipitor) 80 mg BEDTIME ORAL 03/31/20 21:00 06/29/20 20:59 04/02/20 21:28 Benazepril HCl (Lotensin) 40 mg DAILY ORAL 04/01/20 09:00 05/01/20 08:59 04/03/20 08:32 Dextrose (Dextrose 50%) 25 ml Q30M PRN IV Hypoglycemia 03/31/20 20:30 06/29/20 20:29 Dextrose (Dextrose 50%) 50 ml Q30M PRN IV Hypoglycemia 03/31/20 20:30 06/29/20 20:29 Enoxaparin Sodium (Lovenox) 40 mg Q24H SUBQ 03/31/20 21:00 2/16/21 20:59 04/03/20 21:05 Gadobutrol (Gadavist) 7.5 mmol NOW PRN IV Radiology Procedure 04/02/20 16:15 04/06/20 16:14 Insulin Aspart (NovoLOG) BEFORE MEALS AND HS SUBQ 03/31/20 21:00 06/29/20 20:59 04/03/20 21:07 Insulin Aspart (NovoLOG) 5 units NOVOTIAC SUBQ 04/03/20 11:50 07/02/20 11:49 04/03/20 17:46 Insulin Detemir (Levemir) 18 units QHS SUBQ 04/03/20 21:00 06/29/20 21:59 04/03/20 21:06 Magnesium Hydroxide (Mom) 30 ml HSPRN PRN ORAL Constipation 03/31/20 19:00 04/30/20 18:59 Ondansetron HCl (Zofran) 4 mg Q6H PRN IVP Nausea & Vomiting 03/31/20 19:00 04/30/20 18:59 Piperacillin Sod/ Tazobactam Sod 3.375 gm/Sodium Chloride 110 ml @ 27.5 mls/hr Q8HR IVPB 03/31/20 22:00 04/07/20 21:59 04/03/20 21:07 Sodium Hypochlorite (Dakin's Quarter Strength) 1 applic DAILY TOPIC 04/03/20 09:00 05/03/20 08:59 04/03/20 08:33 Sodium Chloride 1,000 ml @ 125 mls/hr Q8H IVLG 03/31/20 21:00 04/30/20 20:59 04/03/20 21:05 Vancomycin HCl (Vanco pharmacy to dose) 1 ea DAILY PRN MISC Per rx protocol 03/31/20 19:15 04/30/20 19:14 Vancomycin HCl 1 gm/Dextrose 275 ml @ 183.708 mls/hr Q12H IVPB 04/03/20 01:00 04/08/20 00:59 04/03/20 13:07 Assessment/Plan Problem List: (1) Sepsis ICD Codes: A41.9 - Sepsis, unspecified organism SNOMED: 63111808 Qualifiers: Qualified Codes: A41.9 - Sepsis, unspecified organism (2) UTI (urinary tract infection) ICD Codes: N39.0 - Urinary tract infection, site not specified SNOMED: 48393034 Qualifiers: Qualified Codes: N39.0 - Urinary tract infection, site not specified; R31.9 - Hematuria, unspecified (3) Hyperkalemia ICD Codes: E87.5 - Hyperkalemia SNOMED: 88610006 (4) Leukocytosis ICD Codes: D72.829 - Elevated white blood cell count, unspecified SNOMED: 535974579, 581553142 (5) Altered mental status ICD Codes: R41.82 - Altered mental status, unspecified SNOMED: 958193751 Qualifiers: Qualified Codes: R41.82 - Altered mental status, unspecified (6) Diabetes mellitus out of control ICD Codes: E11.65 - Type 2 diabetes mellitus with hyperglycemia SNOMED: 86065431, 385279360 (7) Acute on chronic renal failure ICD Codes: N17.9 - Acute kidney failure, unspecified; N18.9 - Chronic kidney disease, unspecified SNOMED: 439366967 (8) NSTEMI (non-ST elevated myocardial infarction) ICD Codes: I21.4 - Non-ST elevation (NSTEMI) myocardial infarction SNOMED: 202978902 (9) High anion gap metabolic acidosis ICD Codes: E87.2 - Acidosis SNOMED: 58252604 (10) Sacral decubitus ulcer ICD Codes: L89.159 - Pressure ulcer of sacral region, unspecified stage SNOMED: 061590604 (11) Decubitus ulcer of heel ICD Codes: L89.609 - Pressure ulcer of unspecified heel, unspecified stage SNOMED: 930708883 Assessment/Plan: Impression/Recommendations Impression/Recommendations Problems: (1) Sepsis (2) UTI (urinary tract infection) (3) Hyperkalemia (4) Leukocytosis (5) Altered mental status (6) Diabetes mellitus out of control (7) Acute on chronic renal failure (8) NSTEMI (non-ST elevated myocardial infarction) (9) High anion gap metabolic acidosis (10) Sacral decubitus ulcer (11) Decubitus ulcer of heel Diagnostic Impression acute encephalopathy, likely metabolic, fluctuating. LE weakness Cellulitis. Diabetes Delirium precautions ordered Cont atb PT as able Thee Lee MD Apr 03, 2020 21:41
[2020-04-04] VITALS: BP 113/54
[2020-04-04] MEDS: Vancomycin 1gm/D5W 275ml IVPB SCH ×4 (01:00→12:00)
[2020-04-04 04:00] VITALS: BP 113/52
[2020-04-04] MEDS: Piperacillin/Tazobactam 3.375 GM in NS 110 ML IVPB SCH ×3 (05:08→22:12)
[2020-04-04] MEDS: NovoLOG Insulin Flexpen SUBQ SCH ×7 (06:30→20:45)
[2020-04-04 07:01] LABS: HEMATOCRIT 36.5 % (37.0-47.0); HEMOGLOBIN 11.7 G/DL (12.0-16.0); MEAN CORPUSCULAR VOLUME 96 FL (80-99); PLATELET COUNT 429 K/UL (150-450); RED CELL DISTRIBUTION WIDTH 12.7 % (11.6-14.8); WHITE BLOOD COUNT 18.1 K/UL (4.8-10.8)
[2020-04-04 07:05] LABS: ANION GAP 7 mmol/L (5-15); BLOOD UREA NITROGEN 8 mg/dL (7-18); CALCIUM 7.8 MG/DL (8.5-10.1); CARBON DIOXIDE 27 MMOL/L (21-32); CHLORIDE 106 MMOL/L (98-107); CREATININE 0.7 MG/DL (0.55-1.30); POTASSIUM 3.2 MMOL/L (3.5-5.1); SODIUM 140 MMOL/L (136-145)
[2020-04-04] MEDS ORDERED: Magnesium Oxide 400mg tab ORAL SCH (07:45)
[2020-04-04 08:00] VITALS: BP 131/60
[2020-04-04] MEDS: Aspirin Baby 81mg ORAL SCH (08:03)
[2020-04-04] MEDS: Dakin's 0.125% Soln (Quarter Strength) 16oz TOPIC SCH (08:05)
--- NOTE | 2020-04-04 09:46 | General Progress Note ---
Subjective Constitutional: Denies: no symptoms, chills, diaphoresis, fever, malaise, weakness, other HEENT: Denies: no symptoms, eye pain, blurred vision, tearing, double vision, ear pain, ear discharge, nose pain, nose congestion, throat pain, throat swelling, mouth pain, mouth swelling, other Cardiovascular: Denies: no symptoms, chest pain, edema, irregular heart rate, lightheadedness, palpitations, syncope, other Respiratory: Denies: no symptoms, cough, orthopnea, shortness of breath, SOB with excertion, SOB at rest, sputum, stridor, wheezing, other Gastrointestinal/Abdominal: Denies: no symptoms, abdomen distended, abdominal pain, black stools, tarry stools, blood in stool, constipated, diarrhea, difficulty swallowing, nausea, poor appetite, poor fluid intake, rectal bleeding, vomiting, other Genitourinary: Denies: no symptoms, burning, discharge, frequency, flank pain, hematuria, incontinence, pain, urgency, other Neurologic/Psychiatric: Denies: no symptoms, anxiety, depressed, emotional problems, headache, numbness, paresthesia, pre-existing deficit, seizure, tingling, tremors, weakness, other Endocrine: Denies: no symptoms, excessive sweating, flushing, intolerance to cold, intolerance to heat, increased hunger, increased thirst, increased urine, unexplained weight gain, unexplained weight loss, other Hematologic/Lymphatic: Denies: no symptoms, anemia, easy bleeding, easy bruising, other Allergies: Coded Allergies: PENICILLINS (Verified Allergy, Unknown, 12/05/17) Subjective no acute events overngiht. Patient sitting up comfortably eating her breakfast. Denies any new complaints this morning. More awake and alert today. Her mentation is improved today. Objective Last 24 Hour Vital Signs Date Time Temp Pulse Resp B/P (MAP) Pulse Ox O2 Delivery O2 Flow Rate FiO2 04/04/20 09:00 Room Air 04/04/20 08:04 130/61 04/04/20 08:04 84 130/61 04/04/20 08:00 97.7 91 17 131/60 (83) 96 04/04/20 04:00 98.5 84 17 113/52 (72) 96 04/04/20 00:00 98.7 88 18 113/54 (73) 96 04/03/20 21:00 Room Air 04/03/20 20:00 98.5 84 17 118/76 (90) 96 04/03/20 16:00 98.4 84 20 117/52 (73) 99 04/03/20 12:00 98.1 80 20 112/58 (76) 98 Intake and Output 04/03/20 04/04/20 18:59 06:59 Intake Total 360 ml 1293.708 ml Output Total 300 ml Balance 60 ml 1293.708 ml Intake Oral 360 ml IV Total 1293.708 ml Output Urine Total 300 ml # Voids 1 3 Laboratory Tests 04/03/20 12:06: POC Whole Blood Glucose 240H 04/03/20 17:42: POC Whole Blood Glucose 321H 04/03/20 20:57: POC Whole Blood Glucose 223H 04/04/20 05:35: White Blood Count 18.1H, Red Blood Count 3.80L, Hemoglobin 11.7L, Hematocrit 36.5L, Mean Corpuscular Volume 96, Mean Corpuscular Hemoglobin 30.7, Mean Corpuscular Hemoglobin Concent 32.0, Red Cell Distribution Width 12.7, Platelet Count 429, Mean Platelet Volume 6.2L, Neutrophils (%) (Auto) , Lymphocytes (%) (Auto) , Monocytes (%) (Auto) , Eosinophils (%) (Auto) , Basophils (%) (Auto) , Differential Total Cells Counted 100, Neutrophils % (Manual) 69, Lymphocytes % (Manual) 21, Monocytes % (Manual) 10, Eosinophils % (Manual) 0, Basophils % (Manual) 0, Band Neutrophils 0, Platelet Estimate Adequate, Platelet Morphology Normal, Red Blood Cell Morphology Normal, Erythrocyte Sedimentation Rate 102H, Sodium Level 140, Potassium Level 3.2L, Chloride Level 106, Carbon Dioxide Level 27, Anion Gap 7, Blood Urea Nitrogen 8, Creatinine 0.7, Estimat Glomerular Filtr ation Rate > 60, Glucose Level 49#L, Calcium Level 7.8L, Magnesium Level 1.5L 04/04/20 05:43: POC Whole Blood Glucose [Pending] 04/04/20 06:19: POC Whole Blood Glucose 72L 04/04/20 06:47: POC Whole Blood Glucose [Pending] Height (Feet): 5 Height (Inches): 6.00 Weight (Pounds): 135 General Appearance: no apparent distress, alert EENT: PERRL/EOMI, normal ENT inspection Neck: non-tender, normal alignment Cardiovascular: normal rate, regular rhythm, no JVD Respiratory/Chest: lungs clear, normal breath sounds Abdomen: non tender, soft Extremities: normal range of motion, other - Bilateral lower extremities wrapped in dressing, no purulence noted oozing from the wound sites noted Edema: no edema noted Arm (L), no edema noted Arm (R), no edema noted Leg (L), no edema noted Leg (R), no edema noted Pedal (L), no edema noted Pedal (R), no edema noted 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 Barroso is a 69-year-old female with possible history of diabetes mellitus is presenting for acute encephalopathy. A: #Acute encephalopathy likely secondary to infectious etiology versus toxic metabolicimproving #Sepsis with UTI, cellulitis, foot ulcer source, possible osteomyelitis of the left lower extremity #UTI #Left lower extremity heel ulcer w/ possible osteomyelitis #Left lower extremity cellulitis #Bilateral lower extremity venous dermatitis #Bilateral lower extremity edema #Lactic acidosis #Diabetes mellitus uncontrolled; A1c 11.2 #Essential hypertension P: continue broad spec antibiotics with vancomycin and Zosyn Follow-up urinary cultures, blood cultures, MRSA screen, wound culture Blood cultures negative for 72 hours -Inflammatory markers elevated Follow-up MRI of left lower extremity to rule out osteomyelitis Decrease Levemir from 18 units to 15 units given episode of hypoglycemia overnight Continue Premeal insulin at 5 units Continue moderate insulin sliding scale, reassess daily insulin requirements Blood glucose goal is 140-180 Continue home Lipitor, amlodipine, lisinopril Wound consult Consult Dr. Alamo, general surgery, recs appreciated Consult Dr. Ernst, ID, recs appreciated Consult Dr. Lee, neurology, recs appreciated CM Code: Full, will need to discuss further with family or patient as when she gets better Diet: Diabetic Fluids: None DVT prophylaxis: Lovenox 40 mg daily Dispo: Pending MRI of left lower extremity Time spent on this encounter was 35 minutes which included 21 minutes of counseling and care coordination. I discussed with the nurse at bedside. Time of note may not reflect time patient was seen. Chintan Arrieta D.O Apr 04, 2020 09:46
--- NOTE | 2020-04-04 10:38 | Hematology/Onc Progress Note ---
Assessment/Plan Assessment/Plan Meds; noted # Leukocytosis likely secondary to underlying diabetic ketoacidosis, rule out underlying infection. --> likely due to infected wounds, heel ulcerations --> ABX vanc/zosyn --> Peripheral smear, reviewed, hold off flow for now --> elev inflammatory markers --> WBC 35-->22-->18 # Anemia due to underlying chronic disease. --> Continue to closely monitor for improvement. --> Anemia w/u has been reviewed. Will trend cbc daily. --> Hgb goal >7 -> hgb 12-->10.7 --> anemia panel reviewed before # Hyperkalemia. Given Kayexalate. --> Improved # Diabetic ketoacidosis. --> per before, improved # High anion gap acidosis. To be seen by primary team. --> Gap is closing. On insulin sliding scale. # Shortness of breath in past with dka # Dvt ppx lovenox sq The time the note was entered does not necessarily correspond to the time the patient was seen. Subjective HEENT: Denies: no symptoms, eye pain, blurred vision, tearing, double vision, ear pain, ear discharge, nose pain, nose congestion, throat pain, throat swelling, mouth pain, mouth swelling, other Cardiovascular: Denies: no symptoms, chest pain, edema, irregular heart rate, lightheadedness, palpitations, syncope, other Gastrointestinal/Abdominal: Denies: no symptoms, abdomen distended, abdominal pain, black stools, tarry stools, blood in stool, constipated, diarrhea, difficulty swallowing, nausea, poor appetite, poor fluid intake, rectal bleeding, vomiting, other Genitourinary: Denies: no symptoms, burning, discharge, frequency, flank pain, hematuria, incontinence, pain, urgency, other Endocrine: Denies: no symptoms, excessive sweating, flushing, intolerance to cold, intolerance to heat, increased hunger, increased thirst, increased urine, unexplained weight gain, unexplained weight loss, other Hematologic/Lymphatic: Denies: no symptoms, anemia, easy bleeding, easy bruising, adenopathy, other Allergies: Coded Allergies: PENICILLINS (Verified Allergy, Unknown, 12/05/17) Subjective 04/04 labs reviewed, meds noted, no bleeding, is on vanc/zosyn, wbc better Objective Objective Current Medications Medications (Trade) Dose Ordered Sig/Enrike Route PRN Reason Start Time Stop Time Status Last Admin Dose Admin Acetaminophen (Tylenol) 650 mg Q4H PRN ORAL Temp >100.5 03/31/20 19:00 04/30/20 18:59 04/01/20 13:05 Acetaminophen (Tylenol) 650 mg Q4H PRN ORAL Mild Pain (Pain Scale 1-3) 03/31/20 19:00 04/30/20 18:59 Al Hydroxide/Mg Hydroxide (Mylanta II) 30 ml Q6H PRN ORAL dyspepsia 03/31/20 19:00 04/30/20 18:59 Albuterol/ Ipratropium (Albuterol/ Ipratropium) 3 ml Q4H PRN HHN Shortness of Breath 03/31/20 19:00 04/05/20 18:59 Amlodipine Besylate (Norvasc) 5 mg DAILY ORAL 04/01/20 09:00 05/01/20 08:59 04/04/20 08:04 Aspirin (ASA) 81 mg DAILY ORAL 04/01/20 09:00 05/16/20 08:59 04/04/20 08:03 Atorvastatin Calcium (Lipitor) 80 mg BEDTIME ORAL 03/31/20 21:00 06/29/20 20:59 04/02/20 21:28 Benazepril HCl (Lotensin) 40 mg DAILY ORAL 04/01/20 09:00 05/01/20 08:59 04/04/20 08:04 Dextrose (Dextrose 50%) 25 ml Q30M PRN IV Hypoglycemia 03/31/20 20:30 06/29/20 20:29 Dextrose (Dextrose 50%) 50 ml Q30M PRN IV Hypoglycemia 03/31/20 20:30 06/29/20 20:29 Enoxaparin Sodium (Lovenox) 40 mg Q24H SUBQ 03/31/20 21:00 06/29/20 20:59 04/03/20 21:05 Gadobutrol (Gadavist) 7.5 mmol NOW PRN IV Radiology Procedure 04/02/20 16:15 04/06/20 16:14 Insulin Aspart (NovoLOG) BEFORE MEALS AND HS SUBQ 03/31/20 21:00 06/29/20 20:59 04/03/20 21:07 Insulin Aspart (NovoLOG) 5 units NOVOTIAC SUBQ 04/03/20 11:50 07/02/20 11:49 04/03/20 17:46 Insulin Detemir (Levemir) 15 units QHS SUBQ 04/04/20 21:00 06/29/20 21:59 Magnesium Hydroxide (Mom) 30 ml HSPRN PRN ORAL Constipation 03/31/20 19:00 04/30/20 18:59 Ondansetron HCl (Zofran) 4 mg Q6H PRN IVP Nausea & Vomiting 03/31/20 19:00 04/30/20 18:59 Piperacillin Sod/ Tazobactam Sod 3.375 gm/Sodium Chloride 110 ml @ 27.5 mls/hr Q8HR IVPB 03/31/20 22:00 04/07/20 21:59 04/04/20 05:08 Sodium Hypochlorite (Dakin's Quarter Strength) 1 applic DAILY TOPIC 04/03/20 09:00 05/03/20 08:59 04/04/20 08:05 Vancomycin HCl (Vanco pharmacy to dose) 1 ea DAILY PRN MISC Per rx protocol 03/31/20 19:15 04/30/20 19:14 Vancomycin HCl 1 gm/Dextrose 275 ml @ 183.708 mls/hr Q12H IVPB 04/03/20 01:00 04/08/20 00:59 04/04/20 01:00 Last 24 Hour Vital Signs Date Time Temp Pulse Resp B/P (MAP) Pulse Ox O2 Delivery O2 Flow Rate FiO2 04/04/20 09:00 Room Air 04/04/20 08:04 130/61 04/04/20 08:04 84 130/61 04/04/20 08:00 97.7 91 17 131/60 (83) 96 04/04/20 04:00 98.5 84 17 113/52 (72) 96 04/04/20 00:00 98.7 88 18 113/54 (73) 96 04/03/20 21:00 Room Air 04/03/20 20:00 98.5 84 17 118/76 (90) 96 04/03/20 16:00 98.4 84 20 117/52 (73) 99 04/03/20 12:00 98.1 80 20 112/58 (76) 98 04/03/20 09:00 Room Air 04/03/20 08:32 111/57 04/03/20 08:32 87 111/57 04/03/20 08:00 88 04/03/20 08:00 97.9 87 20 110/55 (73) 97 04/03/20 04:00 99.0 84 19 111/57 (75) 95 04/03/20 04:00 87 04/03/20 00:00 90 04/03/20 00:00 98.5 70 19 135/65 (88) 95 04/02/20 21:00 Room Air 04/02/20 20:00 98.1 86 22 143/70 (94) 98 04/02/20 20:00 88 04/02/20 16:00 81 04/02/20 16:00 97.7 82 18 121/62 (81) 100 04/02/20 12:00 97.7 82 18 121/62 (81) 100 04/02/20 12:00 85 Intake and Output 04/03/20 04/04/20 19:00 07:00 Intake Total 485 ml 1168.708 ml Output Total 300 ml Balance 185 ml 1168.708 ml Intake Oral 360 ml IV Total 125 ml 1168.708 ml Output Urine Total 300 ml # Voids 1 3 Labs Test 04/01/20 12:18 04/01/20 17:23 04/01/20 20:07 04/02/20 05:33 POC Whole Blood Glucose 78 MG/DL (74-106) 208 MG/DL (74-106) 280 MG/DL (74-106) 194 MG/DL (74-106) Test 04/02/20 05:50 04/02/20 11:59 04/02/20 12:00 04/02/20 17:51 White Blood Count 22.2 K/UL (4.8-10.8) Red Blood Count 3.43 M/UL (4.20-5.40) Hemoglobin 10.7 G/DL (12.0-16.0) Hematocrit 32.6 % (37.0-47.0) Mean Corpuscular Volume 95 FL (80-99) Mean Corpuscular Hemoglobin 31.1 PG (27.0-31.0) Mean Corpuscular Hemoglobin Concent 32.7 G/DL (32.0-36.0) Red Cell Distribution Width 12.7 % (11.6-14.8) Platelet Count 376 K/UL (150-450) Mean Platelet Volume 6.9 FL (6.5-10.1) Neutrophils (%) (Auto) % (45.0-75.0) Lymphocytes (%) (Auto) % (20.0-45.0) Monocytes (%) (Auto) % (1.0-10.0) Eosinophils (%) (Auto) % (0.0-3.0) Basophils (%) (Auto) % (0.0-2.0) Differential Total Cells Counted 100 Neutrophils % (Manual) 78 % (45-75) Lymphocytes % (Manual) 12 % (20-45) Monocytes % (Manual) 8 % (1-10) Eosinophils % (Manual) 0 % (0-3) Basophils % (Manual) 0 % (0-2) Band Neutrophils 2 % (0-8) Platelet Estimate Adequate Platelet Morphology Normal Hypochromasia 1+ Erythrocyte Sedimentation Rate 88 MM/HR (0-30) Prothrombin Time 11.6 SEC (9.30-11.50) Prothromb Time International Ratio 1.1 (0.9-1.1) Activated Partial Thromboplast Time 31 SEC (23-33) Sodium Level 138 MMOL/L (136-145) Potassium Level 3.4 MMOL/L (3.5-5.1) Chloride Level 104 MMOL/L (98-107) Carbon Dioxide Level 31 MMOL/L (21-32) Anion Gap 3 mmol/L (5-15) Blood Urea Nitrogen 15 mg/dL (7-18) Creatinine 0.9 MG/DL (0.55-1.30) Estimat Glomerular Filtration Rate > 60 mL/min (>60) Glucose Level 174 MG/DL (74-106) Lactic Acid Level 0.90 mmol/L (0.4-2.0) Calcium Level 7.6 MG/DL (8.5-10.1) Magnesium Level 1.5 MG/DL (1.8-2.4) Total Bilirubin 0.4 MG/DL (0.2-1.0) Aspartate Amino Transf (AST/SGOT) 33 U/L (15-37) Alanine Aminotransferase (ALT/SGPT) 15 U/L (12-78) Alkaline Phosphatase 120 U/L (46-116) C-Reactive Protein, Quantitative 21.7 mg/dL (0.00-0.90) Total Protein 5.1 G/DL (6.4-8.2) Albumin 1.3 G/DL (3.4-5.0) Globulin 3.8 g/dL Albumin/Globulin Ratio 0.3 (1.0-2.7) Amylase Level 8 U/L (25-115) Lipase 32 U/L (73-393) POC Whole Blood Glucose 270 MG/DL (74-106) 379 MG/DL (74-106) Vancomycin Level Trough 8.1 ug/mL (5.0-12.0) Test 04/02/20 21:35 04/03/20 05:42 04/03/20 06:30 04/03/20 12:06 POC Whole Blood Glucose 235 MG/DL (74-106) 240 MG/DL (74-106) White Blood Count 18.2 K/UL (4.8-10.8) Red Blood Count 3.51 M/UL (4.20-5.40) Hemoglobin 10.9 G/DL (12.0-16.0) Hematocrit 33.7 % (37.0-47.0) Mean Corpuscular Volume 96 FL (80-99) Mean Corpuscular Hemoglobin 31.2 PG (27.0-31.0) Mean Corpuscular Hemoglobin Concent 32.4 G/DL (32.0-36.0) Red Cell Distribution Width 13.0 % (11.6-14.8) Platelet Count 390 K/UL (150-450) Mean Platelet Volume 7.2 FL (6.5-10.1) Neutrophils (%) (Auto) % (45.0-75.0) Lymphocytes (%) (Auto) % (20.0-45.0) Monocytes (%) (Auto) % (1.0-10.0) Eosinophils (%) (Auto) % (0.0-3.0) Basophils (%) (Auto) % (0.0-2.0) Differential Total Cells Counted 100 Neutrophils % (Manual) 79 % (45-75) Lymphocytes % (Manual) 12 % (20-45) Monocytes % (Manual) 8 % (1-10) Eosinophils % (Manual) 1 % (0-3) Basophils % (Manual) 0 % (0-2) Band Neutrophils 0 % (0-8) Platelet Estimate Adequate Platelet Morphology Normal Hypochromasia 1+ Sodium Level 137 MMOL/L (136-145) Potassium Level 3.6 MMOL/L (3.5-5.1) Chloride Level 105 MMOL/L (98-107) Carbon Dioxide Level 27 MMOL/L (21-32) Anion Gap 5 mmol/L (5-15) Blood Urea Nitrogen 10 mg/dL (7-18) Creatinine 0.7 MG/DL (0.55-1.30) Estimat Glomerular Filtration Rate > 60 mL/min (>60) Glucose Level 219 MG/DL (74-106) Calcium Level 7.5 MG/DL (8.5-10.1) Magnesium Level 1.7 MG/DL (1.8-2.4) Test 04/03/20 17:42 04/03/20 20:57 04/04/20 05:35 04/04/20 05:43 POC Whole Blood Glucose 321 MG/DL (74-106) 223 MG/DL (74-106) White Blood Count 18.1 K/UL (4.8-10.8) Red Blood Count 3.80 M/UL (4.20-5.40) Hemoglobin 11.7 G/DL (12.0-16.0) Hematocrit 36.5 % (37.0-47.0) Mean Corpuscular Volume 96 FL (80-99) Mean Corpuscular Hemoglobin 30.7 PG (27.0-31.0) Mean Corpuscular Hemoglobin Concent 32.0 G/DL (32.0-36.0) Red Cell Distribution Width 12.7 % (11.6-14.8) Platelet Count 429 K/UL (150-450) Mean Platelet Volume 6.2 FL (6.5-10.1) Neutrophils (%) (Auto) % (45.0-75.0) Lymphocytes (%) (Auto) % (20.0-45.0) Monocytes (%) (Auto) % (1.0-10.0) Eosinophils (%) (Auto) % (0.0-3.0) Basophils (%) (Auto) % (0.0-2.0) Differential Total Cells Counted 100 Neutrophils % (Manual) 69 % (45-75) Lymphocytes % (Manual) 21 % (20-45) Monocytes % (Manual) 10 % (1-10) Eosinophils % (Manual) 0 % (0-3) Basophils % (Manual) 0 % (0-2) Band Neutrophils 0 % (0-8) Platelet Estimate Adequate Platelet Morphology Normal Red Blood Cell Morphology Normal Erythrocyte Sedimentation Rate 102 MM/HR (0-30) Sodium Level 140 MMOL/L (136-145) Potassium Level 3.2 MMOL/L (3.5-5.1) Chloride Level 106 MMOL/L (98-107) Carbon Dioxide Level 27 MMOL/L (21-32) Anion Gap 7 mmol/L (5-15) Blood Urea Nitrogen 8 mg/dL (7-18) Creatinine 0.7 MG/DL (0.55-1.30) Estimat Glomerular Filtration Rate > 60 mL/min (>60) Glucose Level 49 MG/DL (74-106) Calcium Level 7.8 MG/DL (8.5-10.1) Magnesium Level 1.5 MG/DL (1.8-2.4) Test 04/04/20 06:19 04/04/20 06:47 POC Whole Blood Glucose 72 MG/DL (74-106) Height (Feet): 5 Height (Inches): 6.00 Weight (Pounds): 135 Objective Vitals: reviewed, normal General Appearance: no apparent distress, non-toxic, lethargic HEENT: bilateral eye normal inspection, bilateral eye PERRL Neck: full range of motion, supple/symm/no masses Resp: chest non-tender, lungs clear, normal breath sounds, speaking full sentences Cardiovascular: regular rate, rhythm, no edema Gastrointestinal: normal bowel sounds, non tender Rectal: deferred Genitourinary: normal inspection, no CVA tenderness Musculoskeletal: back normal, gait/station normal, non-tender Lymphatic: no adenopathy David De Jesus MD Apr 04, 2020 10:38
[2020-04-04 12:00] VITALS: BP 118/54
[2020-04-04 16:00] VITALS: BP 112/66
--- NOTE | 2020-04-04 17:42 | Surgery Progress Note ---
Surgery Progress Note Subjective Symptoms: improved, pain absent, tolerating diet, passing flatus, BM Objective Last 24 Hour Vital Signs Date Time Temp Pulse Resp B/P (MAP) Pulse Ox O2 Delivery O2 Flow Rate FiO2 04/04/20 16:00 98.1 80 20 112/66 (81) 98 04/04/20 12:00 98.8 93 17 118/54 (75) 97 04/04/20 09:00 Room Air 04/04/20 08:04 130/61 04/04/20 08:04 84 130/61 04/04/20 08:00 97.7 91 17 131/60 (83) 96 04/04/20 04:00 98.5 84 17 113/52 (72) 96 04/04/20 00:00 98.7 88 18 113/54 (73) 96 04/03/20 21:00 Room Air 04/03/20 20:00 98.5 84 17 118/76 (90) 96 I&O Intake and Output 04/03/20 04/04/20 19:00 07:00 Intake Total 485 ml 1168.708 ml Output Total 300 ml Balance 185 ml 1168.708 ml Intake Oral 360 ml IV Total 125 ml 1168.708 ml Output Urine Total 300 ml # Voids 1 3 Dressing: saturated Cardiovascular: RSR Respiratory: clear, decreased breath sounds Abdomen: soft, non-tender, present bowel sounds Extremities: no edema, no tenderness, no cyanosis Laboratory Tests Test 04/03/20 20:57 04/04/20 05:35 04/04/20 05:43 04/04/20 06:19 POC Whole Blood Glucose 223 MG/DL (74-106) H Pending 72 MG/DL (74-106) L White Blood Count 18.1 K/UL (4.8-10.8) H Red Blood Count 3.80 M/UL (4.20-5.40) L Hemoglobin 11.7 G/DL (12.0-16.0) L Hematocrit 36.5 % (37.0-47.0) L Mean Corpuscular Volume 96 FL (80-99) Mean Corpuscular Hemoglobin 30.7 PG (27.0-31.0) Mean Corpuscular Hemoglobin Concent 32.0 G/DL (32.0-36.0) Red Cell Distribution Width 12.7 % (11.6-14.8) Platelet Count 429 K/UL (150-450) Mean Platelet Volume 6.2 FL (6.5-10.1) L Neutrophils (%) (Auto) % (45.0-75.0) Lymphocytes (%) (Auto) % (20.0-45.0) Monocytes (%) (Auto) % (1.0-10.0) Eosinophils (%) (Auto) % (0.0-3.0) Basophils (%) (Auto) % (0.0-2.0) Differential Total Cells Counted 100 Neutrophils % (Manual) 69 % (45-75) Lymphocytes % (Manual) 21 % (20-45) Monocytes % (Manual) 10 % (1-10) Eosinophils % (Manual) 0 % (0-3) Basophils % (Manual) 0 % (0-2) Band Neutrophils 0 % (0-8) Platelet Estimate Adequate Platelet Morphology Normal Red Blood Cell Morphology Normal Erythrocyte Sedimentation Rate 102 MM/HR (0-30) H Sodium Level 140 MMOL/L (136-145) Potassium Level 3.2 MMOL/L (3.5-5.1) L Chloride Level 106 MMOL/L (98-107) Carbon Dioxide Level 27 MMOL/L (21-32) Anion Gap 7 mmol/L (5-15) Blood Urea Nitrogen 8 mg/dL (7-18) Creatinine 0.7 MG/DL (0.55-1.30) Estimat Glomerular Filtration Rate > 60 mL/min (>60) Glucose Level 49 MG/DL (74-106) #L Calcium Level 7.8 MG/DL (8.5-10.1) L Magnesium Level 1.5 MG/DL (1.8-2.4) L Test 04/04/20 06:47 04/04/20 11:23 04/04/20 12:20 04/04/20 16:59 POC Whole Blood Glucose Pending Pending 371 MG/DL (74-106) H Vancomycin Level Trough 18.5 ug/mL (5.0-12.0) H Plan Problems: (1) Decubitus ulcer of heel (2) Sacral decubitus ulcer (3) Sepsis Assessment & Plan: 69-year-old female multiple comorbidities presented with failure to thrive lethargic altered mental status noted to have significant leukocytosis greater than 30,000 lactic acidosis 2.3 abnormal labs A1c 11 identified to have draining bilateral heel unstageable decubitus ulcers multiple skin lesions on the lower extremities as well as a sacral decubitus ulcer as well. Patient is currently on antibiotics under work-up microbiology identified urine noted UTI. Imaging reviewed. Patient has been eating less recently but currently is eating at the bedside though does not look like she is taking much in. Treatment plan Wash sacral area daily with normal saline apply Thera honey followed by Optifoam dressing change daily and as needed saturation Wash bilateral heels daily with normal saline. Swab with Betadine unstageable necrotic eschar on bilateral heels and cover with Optifoam dressings. Change daily and as needed saturation Lower lower extremity ulcerations saw with Betadine cover with Optifoam dressing. Turn every 2 hours Offload pressure with pillows pillow on side as necessary as well as underneath calf to elevate heels Air soft mattress nutritional optimization continue IV antibiotics per infectious disease SACRUM- STAGE - UNSTAGEABLE PRESSURE ULCER MEASURES 6.0X13.0X0.2. WOUND BED WITH 80% SLOUGH AND 20% PINK GRANULATION TISSUE. NOTED FOUL ODOR RECOMMEND-CLEAN WITH SALINE. APPLY WET TO DRY DRESSINGS WITH DAKINS 0.25% DA KIN'S SOLUTION.COVER WITH OPTIFOAM DRESSING. REPLACE DRESSING DAILY. LEFT ISCHIUM-STAGE II PRESSURE ULCER MEASURES 4.5X0.5X0.2CM. PINK GRANULATION TISSUE NOTED. RECOMMEND- CLEAN WITH SALINE, PAT DRY. APPLY CALAZINE AND COVER WITH OPTIFOAM DRESSING. LEFT ANTERIOR LOW LEG-VENOUS ULCER MEASURES 8.0X2.6X0.2CM 100% YELLOW SLOUGH NOTED TO WOUND BED. RECOMMEND- CLEAN WITH SALINE, PA DRY. APPLY THERAHONEY. COVER WITH GAUZE AND SECURE WITH KERLIX. REPLACE DRESSING DAILY. LEFT HEEL- UNSTAGEABLE PRESSURE ULCER MEASURES 9.5X8.0X0.3CM. 100% MOIST BLACK ESCHAR. WITH STRONG FOUL ODOR. RECOMMEND- CLEAN WITH SALINE. APPLY WET TO DRY DRESSINGS WITH DAKINS 0.25% DAKIN'S SOLUTION. COVER WITH GAUZE, ABD PAD AND SECURE WITH KERLIX. REPLACE DAILY. RIGHT ANTERIOR LOW LEG-VENOUS ULCER MEASURES 2.5X3.0X0.2CM WITH PINK GRANULATION TISSUE. RIGHT ANTERIOR DISTAL LOW LEG -VENOUS ULCER MEASURES 1.5X0.2X0.1CM WITH PINK GRANULATION TISSUE. RECOMMEND-CLEAN WITH SALINE PAT DRY. APPLY XEROFORM GAUZE, GAUZE AND COVER WITH KERLIX. REPLACE DAILY RIGHT HEEL-DTI MEASURES 2.5X3.0CM. AREA DARK PURPLE IN COLOR AND BOGGY TO TOUCH. NO DRAINAGE NOTED. RECOMMEND- PAINT WITH CAVILON SKIN PROTECTOR, GAUZE AND WRAP WITH KERLIX. REPLACE DAILY. We will follow with recommendations thank you for letting participate patient's care (4) UTI (urinary tract infection) (5) Hyperkalemia (6) Leukocytosis (7) Altered mental status (8) Diabetes mellitus out of control (9) Acute on chronic renal failure (10) NSTEMI (non-ST elevated myocardial infarction) (11) High anion gap metabolic acidosis Joseph Alamo Apr 04, 2020 17:42
[2020-04-04 20:00] VITALS: BP 128/76
--- NOTE | 2020-04-04 20:22 | Neurology Progress Note ---
Interim History Interim History Interim History improved mental status, more alert Objective Physical Exam Last Vital Signs Date Time Temp Pulse Resp B/P (MAP) Pulse Ox O2 Delivery O2 Flow Rate FiO2 04/04/20 16:00 98.1 80 20 112/66 (81) 98 04/04/20 09:00 Room Air 04/01/20 06:58 21 Laboratory Tests Test 04/03/20 20:57 04/04/20 05:35 04/04/20 05:43 04/04/20 06:19 POC Whole Blood Glucose 223 MG/DL (74-106) H Pending 72 MG/DL (74-106) L White Blood Count 18.1 K/UL (4.8-10.8) H Red Blood Count 3.80 M/UL (4.20-5.40) L Hemoglobin 11.7 G/DL (12.0-16.0) L Hematocrit 36.5 % (37.0-47.0) L Mean Corpuscular Volume 96 FL (80-99) Mean Corpuscular Hemoglobin 30.7 PG (27.0-31.0) Mean Corpuscular Hemoglobin Concent 32.0 G/DL (32.0-36.0) Red Cell Distribution Width 12.7 % (11.6-14.8) Platelet Count 429 K/UL (150-450) Mean Platelet Volume 6.2 FL (6.5-10.1) L Neutrophils (%) (Auto) % (45.0-75.0) Lymphocytes (%) (Auto) % (20.0-45.0) Monocytes (%) (Auto) % (1.0-10.0) Eosinophils (%) (Auto) % (0.0-3.0) Basophils (%) (Auto) % (0.0-2.0) Differential Total Cells Counted 100 Neutrophils % (Manual) 69 % (45-75) Lymphocytes % (Manual) 21 % (20-45) Monocytes % (Manual) 10 % (1-10) Eosinophils % (Manual) 0 % (0-3) Basophils % (Manual) 0 % (0-2) Band Neutrophils 0 % (0-8) Platelet Estimate Adequate Platelet Morphology Normal Red Blood Cell Morphology Normal Erythrocyte Sedimentation Rate 102 MM/HR (0-30) H Sodium Level 140 MMOL/L (136-145) Potassium Level 3.2 MMOL/L (3.5-5.1) L Chloride Level 106 MMOL/L (98-107) Carbon Dioxide Level 27 MMOL/L (21-32) Anion Gap 7 mmol/L (5-15) Blood Urea Nitrogen 8 mg/dL (7-18) Creatinine 0.7 MG/DL (0.55-1.30) Estimat Glomerular Filtration Rate > 60 mL/min (>60) Glucose Level 49 MG/DL (74-106) #L Calcium Level 7.8 MG/DL (8.5-10.1) L Magnesium Level 1.5 MG/DL (1.8-2.4) L Test 04/04/20 06:47 04/04/20 11:23 04/04/20 12:20 04/04/20 16:59 POC Whole Blood Glucose Pending Pending 371 MG/DL (74-106) H Vancomycin Level Trough 18.5 ug/mL (5.0-12.0) H General: well nourished Head: normocophalic Neck: no rigidity Neurologic Exam Mental Status: awake Objective confused, follows midline oriened to self LE weakness and numbness Impression/Recommendations Problems: (1) Sepsis (2) UTI (urinary tract infection) (3) Hyperkalemia (4) Leukocytosis (5) Altered mental status (6) Diabetes mellitus out of control (7) Acute on chronic renal failure (8) NSTEMI (non-ST elevated myocardial infarction) (9) High anion gap metabolic acidosis (10) Sacral decubitus ulcer (11) Decubitus ulcer of heel Diagnostic Impression acute encephalopathy, likely metabolic, fluctuating. LE weakness Cellulitis. Diabetes Delirium precautions ordered Cont atb PT as able Thee Lee MD Apr 04, 2020 20:22
--- NOTE | 2020-04-04 20:33 | Infectious Diseases Prog Note ---
Assessment/Plan Assessment/Plan ASSESSMENT AND PLAN: 1. e.coli uti, infected wounds LE, sepsis, leukocytosis, fevers x-ray feet negative for osteomyelitis - MRI ordered - zosyn and vancomycin - day # 4 - monitor labs, blood cultures negative, chest x-ray - negative - wound car per surgery and protocol - f/u on MRI - leukocytosis improved 2. Hypertension, diabetes - continue treatment 3. Wounds. 4. Weakness. 5. Encephalopathy. 6. Allergic to penicillin, tolerates Zosyn. 7. Family history is noncontributory. 8. MAR was noted. 9. Case discussed with RN. 10. Continue treatment per primary consultants. Subjective Constitutional: Reports: fatigue; Denies: fever HEENT: Denies: congestion Respiratory: Denies: shortness of breath Cardiovascular: Denies: chest pain Gastrointestinal/Abdominal: Denies: nausea, vomiting, diarrhea Genitourinary: Reports: dysuria, frequency, other - no alaniz Neurologic: Denies: headache Psychiatric: Reports: other - NA Skin: Denies: rash Hematologic: Denies: bleeding Musculoskeletal: Denies: pain Allergies: Coded Allergies: PENICILLINS (Verified Allergy, Unknown, 12/05/17) Objective Last 24 Hour Vital Signs Date Time Temp Pulse Resp B/P (MAP) Pulse Ox O2 Delivery O2 Flow Rate FiO2 04/04/20 16:00 98.1 80 20 112/66 (81) 98 04/04/20 12:00 98.8 93 17 118/54 (75) 97 04/04/20 09:00 Room Air 04/04/20 08:04 130/61 04/04/20 08:04 84 130/61 04/04/20 08:00 97.7 91 17 131/60 (83) 96 04/04/20 04:00 98.5 84 17 113/52 (72) 96 04/04/20 00:00 98.7 88 18 113/54 (73) 96 04/03/20 21:00 Room Air Height (Feet): 5 Height (Inches): 6.00 Weight (Pounds): 135 General Appearance: no acute distress HEENT: normocephalic, atraumatic, anicteric, mucous membranes moist Respiratory/Chest: lungs clear, normal breath sounds, no respiratory distress, no accessory muscle use Cardiovascular: normal rate, regular rhythm, no gallop/murmur, no JVD Abdomen: no organomegaly, non distended Genitourinary: other - no alaniz Extremities: other - no leg cellulitis, wounds covered Skin: no rash 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 Within these limitations: No definite acute fracture is appreciated. Lisfranc alignment of the foot appears grossly maintained. There is a suspected ulceration underlying the heel with possible subcutaneous gas. Correlation with physical exam recommended as soft tissue infection is suspected. No discrete changes noted in the adjacent calcaneus to suggest acute osteomyelitis however more sensitive evaluation can be made with MRI. Chest x-ray - 03/31/20 - Procedure: XRAY Chest 1v Indication: Altered mental status, cough Technique: XRAY Chest 1v Comparison: 12/05/2017 Findings: Heart size and mediastinal contours stable. There is no definite focal airspace consolidation. Some peribronchial thickening is seen. No pleural effusion or pneumothorax. No acute osseous abnormality. IMPRESSION: Peribronchial thickening which may suggest small airway disease/bronchitis. Correlate clinically. No focal consolidation. Microbiology Date/Time Source Procedure Growth Status 03/31/20 16:51 Urine,Clean Catch Urine Culture - Final Escherichia Coli Complete 03/31/20 14:55 Nasopharynx SARS-CoV-2 RdRp Gene Assay - Final Complete 03/31/20 14:55 Blood Blood Culture - Preliminary NO GROWTH AFTER 72 HOURS Resulted Microbiology Date/Time Source Procedure Growth Status 03/31/20 16:51 Urine,Clean Catch Urine Culture - Final Escherichia Coli Complete 03/31/20 14:55 Nasopharynx SARS-CoV-2 RdRp Gene Assay - Final Complete 03/31/20 14:55 Blood Blood Culture - Preliminary NO GROWTH AFTER 72 HOURS Resulted Laboratory Tests Test 04/03/20 20:57 04/04/20 05:35 04/04/20 05:43 04/04/20 06:19 POC Whole Blood Glucose 223 MG/DL (74-106) H Pending 72 MG/DL (74-106) L White Blood Count 18.1 K/UL (4.8-10.8) H Red Blood Count 3.80 M/UL (4.20-5.40) L Hemoglobin 11.7 G/DL (12.0-16.0) L Hematocrit 36.5 % (37.0-47.0) L Mean Corpuscular Volume 96 FL (80-99) Mean Corpuscular Hemoglobin 30.7 PG (27.0-31.0) Mean Corpuscular Hemoglobin Concent 32.0 G/DL (32.0-36.0) Red Cell Distribution Width 12.7 % (11.6-14.8) Platelet Count 429 K/UL (150-450) Mean Platelet Volume 6.2 FL (6.5-10.1) L Neutrophils (%) (Auto) % (45.0-75.0) Lymphocytes (%) (Auto) % (20.0-45.0) Monocytes (%) (Auto) % (1.0-10.0) Eosinophils (%) (Auto) % (0.0-3.0) Basophils (%) (Auto) % (0.0-2.0) Differential Total Cells Counted 100 Neutrophils % (Manual) 69 % (45-75) Lymphocytes % (Manual) 21 % (20-45) Monocytes % (Manual) 10 % (1-10) Eosinophils % (Manual) 0 % (0-3) Basophils % (Manual) 0 % (0-2) Band Neutrophils 0 % (0-8) Platelet Estimate Adequate Platelet Morphology Normal Red Blood Cell Morphology Normal Erythrocyte Sedimentation Rate 102 MM/HR (0-30) H Sodium Level 140 MMOL/L (136-145) Potassium Level 3.2 MMOL/L (3.5-5.1) L Chloride Level 106 MMOL/L (98-107) Carbon Dioxide Level 27 MMOL/L (21-32) Anion Gap 7 mmol/L (5-15) Blood Urea Nitrogen 8 mg/dL (7-18) Creatinine 0.7 MG/DL (0.55-1.30) Estimat Glomerular Filtration Rate > 60 mL/min (>60) Glucose Level 49 MG/DL (74-106) #L Calcium Level 7.8 MG/DL (8.5-10.1) L Magnesium Level 1.5 MG/DL (1.8-2.4) L Test 04/04/20 06:47 04/04/20 11:23 04/04/20 12:20 04/04/20 16:59 POC Whole Blood Glucose Pending Pending 371 MG/DL (74-106) H Vancomycin Level Trough 18.5 ug/mL (5.0-12.0) H Current Medications Medications (Trade) Dose Ordered Sig/Enrike Route PRN Reason Start Time Stop Time Status Last Admin Dose Admin Acetaminophen (Tylenol) 650 mg Q4H PRN ORAL Temp >100.5 03/31/20 19:00 04/30/20 18:59 04/01/20 13:05 Acetaminophen (Tylenol) 650 mg Q4H PRN ORAL Mild Pain (Pain Scale 1-3) 03/31/20 19:00 04/30/20 18:59 Al Hydroxide/Mg Hydroxide (Mylanta II) 30 ml Q6H PRN ORAL dyspepsia 03/31/20 19:00 04/30/20 18:59 Albuterol/ Ipratropium (Albuterol/ Ipratropium) 3 ml Q4H PRN HHN Shortness of Breath 03/31/20 19:00 04/05/20 18:59 Amlodipine Besylate (Norvasc) 5 mg DAILY ORAL 04/01/20 09:00 05/01/20 08:59 04/04/20 08:04 Aspirin (ASA) 81 mg DAILY ORAL 04/01/20 09:00 05/16/20 08:59 04/04/20 08:03 Atorvastatin Calcium (Lipitor) 80 mg BEDTIME ORAL 03/31/20 21:00 06/29/20 20:59 04/02/20 21:28 Benazepril HCl (Lotensin) 40 mg DAILY ORAL 04/01/20 09:00 05/01/20 08:59 04/04/20 08:04 Dextrose (Dextrose 50%) 25 ml Q30M PRN IV Hypoglycemia 03/31/20 20:30 06/29/20 20:29 Dextrose (Dextrose 50%) 50 ml Q30M PRN IV Hypoglycemia 03/31/20 20:30 06/29/20 20:29 Enoxaparin Sodium (Lovenox) 40 mg Q24H SUBQ 03/31/20 21:00 06/29/20 20:59 04/03/20 21:05 Gadobutrol (Gadavist) 7.5 mmol NOW PRN IV Radiology Procedure 04/02/20 16:15 04/06/20 16:14 Insulin Aspart (NovoLOG) BEFORE MEALS AND HS SUBQ 03/31/20 21:00 06/29/20 20:59 04/04/20 17:04 Insulin Aspart (NovoLOG) 5 units NOVOTIAC SUBQ 04/03/20 11:50 07/02/20 11:49 04/04/20 17:05 Insulin Detemir (Levemir) 15 units QHS SUBQ 04/04/20 21:00 06/29/20 21:59 Magnesium Hydroxide (Mom) 30 ml HSPRN PRN ORAL Constipation 03/31/20 19:00 04/30/20 18:59 Ondansetron HCl (Zofran) 4 mg Q6H PRN IVP Nausea & Vomiting 03/31/20 19:00 04/30/20 18:59 Piperacillin Sod/ Tazobactam Sod 3.375 gm/Sodium Chloride 110 ml @ 27.5 mls/hr Q8HR IVPB 03/31/20 22:00 04/07/20 21:59 04/04/20 13:48 Sodium Hypochlorite (Dakin's Quarter Strength) 1 applic DAILY TOPIC 04/03/20 09:00 05/03/20 08:59 04/04/20 08:05 Vancomycin HCl (Vanco pharmacy to dose) 1 ea DAILY PRN MISC Per rx protocol 03/31/20 19:15 04/30/20 19:14 Vancomycin HCl 1 gm/Dextrose 275 ml @ 183.708 mls/hr Q12H IVPB 04/03/20 01:00 04/08/20 00:59 04/04/20 12:00 Elyse Leung MD Apr 04, 2020 20:33
[2020-04-04] MEDS: Atorvastatin 80mg tab ORAL SCH (20:43)
[2020-04-04] MEDS: Levemir Flexpen SUBQ SCH (20:44)
[2020-04-04] MEDS: Enoxaparin 40mg Inj SUBQ SCH (20:45)
[2020-04-05] VITALS: BP 124/71
[2020-04-05] MEDS: Vancomycin 1gm/D5W 275ml IVPB SCH ×4 (00:36→14:07)
[2020-04-05 04:00] VITALS: BP 119/72
[2020-04-05] MEDS: Piperacillin/Tazobactam 3.375 GM in NS 110 ML IVPB SCH ×3 (05:31→21:26)
[2020-04-05] MEDS: NovoLOG Insulin Flexpen SUBQ SCH ×7 (06:36→21:25)
--- NOTE | 2020-04-05 06:51 | Hematology/Onc Progress Note ---
Assessment/Plan Assessment/Plan Meds; noted # Leukocytosis likely secondary to underlying diabetic ketoacidosis, rule out underlying infection. --> likely due to infected wounds, heel ulcerations --> ABX vanc/zosyn --> Peripheral smear, reviewed, hold off flow for now --> elev inflammatory markers --> WBC 35-->22-->18 # Anemia due to underlying chronic disease. --> Continue to closely monitor for improvement. --> Anemia w/u has been reviewed. Will trend cbc daily. --> Hgb goal >7 -> hgb 12-->10.7 --> anemia panel reviewed before # Hyperkalemia. Given Kayexalate. --> Improved # Diabetic ketoacidosis. --> per before, improved # High anion gap acidosis. To be seen by primary team. --> Gap is closing. On insulin sliding scale. # Shortness of breath in past with dka # Dvt ppx lovenox sq The time the note was entered does not necessarily correspond to the time the patient was seen. Subjective Constitutional: Denies: no symptoms, chills, fever, malaise, weakness, other HEENT: Denies: no symptoms, eye pain, blurred vision, tearing, double vision, ear pain, ear discharge, nose pain, nose congestion, throat pain, throat swelling, mouth pain, mouth swelling, other Cardiovascular: Denies: no symptoms, chest pain, edema, irregular heart rate, lightheadedness, palpitations, syncope, other Gastrointestinal/Abdominal: Denies: no symptoms, abdomen distended, abdominal pain, black stools, tarry stools, blood in stool, constipated, diarrhea, difficulty swallowing, nausea, poor appetite, poor fluid intake, rectal bl eeding, vomiting, other Genitourinary: Denies: no symptoms, burning, discharge, frequency, flank pain, hematuria, incontinence, pain, urgency, other Neurologic/Psychiatric: Denies: no symptoms, anxiety, depressed, emotional problems, headache, numbness, paresthesia, pre-existing deficit, seizure, tingling, tremors, weakness, other Endocrine: Denies: no symptoms, excessive sweating, flushing, intolerance to cold, intolerance to heat, increased hunger, increased thirst, increased urine, unexplained weight gain, unexplained weight loss, other Allergies: Coded Allergies: PENICILLINS (Verified Allergy, Unknown, 12/05/17) Subjective 04/04 labs reviewed, meds noted, no bleeding, is on vanc/zosyn, wbc better 04/05 is on abx zosyn/vanc, labs noted, with facial grimace, no complaints Objective Objective Current Medications Medications (Trade) Dose Ordered Sig/Enrike Route PRN Reason Start Time Stop Time Status Last Admin Dose Admin Acetaminophen (Tylenol) 650 mg Q4H PRN ORAL Temp >100.5 03/31/20 19:00 04/30/20 18:59 04/01/20 13:05 Acetaminophen (Tylenol) 650 mg Q4H PRN ORAL Mild Pain (Pain Scale 1-3) 03/31/20 19:00 04/30/20 18:59 Al Hydroxide/Mg Hydroxide (Mylanta II) 30 ml Q6H PRN ORAL dyspepsia 03/31/20 19:00 04/30/20 18:59 Albuterol/ Ipratropium (Albuterol/ Ipratropium) 3 ml Q4H PRN HHN Shortness of Breath 03/31/20 19:00 04/05/20 18:59 Amlodipine Besylate (Norvasc) 5 mg DAILY ORAL 04/01/20 09:00 05/01/20 08:59 04/04/20 08:04 Aspirin (ASA) 81 mg DAILY ORAL 04/01/20 09:00 05/16/20 08:59 04/04/20 08:03 Atorvastatin Calcium (Lipitor) 80 mg BEDTIME ORAL 03/31/20 21:00 06/29/20 20:59 04/04/20 20:43 Benazepril HCl (Lotensin) 40 mg DAILY ORAL 04/01/20 09:00 05/01/20 08:59 04/04/20 08:04 Dextrose (Dextrose 50%) 25 ml Q30M PRN IV Hypoglycemia 03/31/20 20:30 06/29/20 20:29 Dextrose (Dextrose 50%) 50 ml Q30M PRN IV Hypoglycemia 03/31/20 20:30 06/29/20 20:29 Enoxaparin Sodium (Lovenox) 40 mg Q24H SUBQ 03/31/20 21:00 06/29/20 20:59 04/04/20 20:45 Gadobutrol (Gadavist) 7.5 mmol NOW PRN IV Radiology Procedure 04/02/20 16:15 04/06/20 16:14 Insulin Aspart (NovoLOG) BEFORE MEALS AND HS SUBQ 03/31/20 21:00 06/29/20 20:59 04/05/20 06:36 Insulin Aspart (NovoLOG) 5 units NOVOTIAC SUBQ 04/03/20 11:50 07/02/20 11:49 04/05/20 06:37 Insulin Detemir (Levemir) 15 units QHS SUBQ 04/04/20 21:00 06/29/20 21:59 04/04/20 20:44 Magnesium Hydroxide (Mom) 30 ml HSPRN PRN ORAL Constipation 03/31/20 19:00 04/30/20 18:59 Ondansetron HCl (Zofran) 4 mg Q6H PRN IVP Nausea & Vomiting 03/31/20 19:00 04/30/20 18:59 Piperacillin Sod/ Tazobactam Sod 3.375 gm/Sodium Chloride 110 ml @ 27.5 mls/hr Q8HR IVPB 03/31/20 22:00 04/07/20 21:59 04/05/20 05:31 Sodium Hypochlorite (Dakin's Quarter Strength) 1 applic DAILY TOPIC 04/03/20 09:00 05/03/20 08:59 04/04/20 08:05 Vancomycin HCl (Vanco pharmacy to dose) 1 ea DAILY PRN MISC Per rx protocol 03/31/20 19:15 04/30/20 19:14 Vancomycin HCl 1 gm/Dextrose 275 ml @ 183.708 mls/hr Q12H IVPB 04/03/20 01:00 04/08/20 00:59 04/05/20 00:36 Last 24 Hour Vital Signs Date Time Temp Pulse Resp B/P (MAP) Pulse Ox O2 Delivery O2 Flow Rate FiO2 04/05/20 04:00 97.6 79 19 119/72 (88) 98 04/05/20 00:00 97.8 76 20 124/71 (88) 98 04/04/20 21:00 Room Air 04/04/20 20:00 97.6 78 20 128/76 (93) 97 04/04/20 16:00 98.1 80 20 112/66 (81) 98 04/04/20 12:00 98.8 93 17 118/54 (75) 97 04/04/20 09:00 Room Air 04/04/20 08:04 130/61 04/04/20 08:04 84 130/61 04/04/20 08:00 97.7 91 17 131/60 (83) 96 04/04/20 04:00 98.5 84 17 113/52 (72) 96 04/04/20 00:00 98.7 88 18 113/54 (73) 96 04/03/20 21:00 Room Air 04/03/20 20:00 98.5 84 17 118/76 (90) 96 04/03/20 16:00 98.4 84 20 117/52 (73) 99 04/03/20 12:00 98.1 80 20 112/58 (76) 98 04/03/20 09:00 Room Air 04/03/20 08:32 111/57 04/03/20 08:32 87 111/57 04/03/20 08:00 88 04/03/20 08:00 97.9 87 20 110/55 (73) 97 Intake and Output 04/04/20 04/05/20 19:00 07:00 Intake Total 680 ml 350 ml Output Total 1400 ml 750 ml Balance -720 ml -400 ml Intake Oral 680 ml 350 ml Output Urine Total 1400 ml 750 ml Labs Test 04/02/20 11:59 04/02/20 12:00 04/02/20 17:51 04/02/20 21:35 POC Whole Blood Glucose 270 MG/DL (74-106) 379 MG/DL (74-106) 235 MG/DL (74-106) Vancomycin Level Trough 8.1 ug/mL (5.0-12.0) Test 04/03/20 05:42 04/03/20 06:30 04/03/20 12:06 04/03/20 17:42 White Blood Count 18.2 K/UL (4.8-10.8) Red Blood Count 3.51 M/UL (4.20-5.40) Hemoglobin 10.9 G/DL (12.0-16.0) Hematocrit 33.7 % (37.0-47.0) Mean Corpuscular Volume 96 FL (80-99) Mean Corpuscular Hemoglobin 31.2 PG (27.0-31.0) Mean Corpuscular Hemoglobin Concent 32.4 G/DL (32.0-36.0) Red Cell Distribution Width 13.0 % (11.6-14.8) Platelet Count 390 K/UL (150-450) Mean Platelet Volume 7.2 FL (6.5-10.1) Neutrophils (%) (Auto) % (45.0-75.0) Lymphocytes (%) (Auto) % (20.0-45.0) Monocytes (%) (Auto) % (1.0-10.0) Eosinophils (%) (Auto) % (0.0-3.0) Basophils (%) (Auto) % (0.0-2.0) Differential Total Cells Counted 100 Neutrophils % (Manual) 79 % (45-75) Lymphocytes % (Manual) 12 % (20-45) Monocytes % (Manual) 8 % (1-10) Eosinophils % (Manual) 1 % (0-3) Basophils % (Manual) 0 % (0-2) Band Neutrophils 0 % (0-8) Platelet Estimate Adequate Platelet Morphology Normal Hypochromasia 1+ Sodium Level 137 MMOL/L (136-145) Potassium Level 3.6 MMOL/L (3.5-5.1) Chloride Level 105 MMOL/L (98-107) Carbon Dioxide Level 27 MMOL/L (21-32) Anion Gap 5 mmol/L (5-15) Blood Urea Nitrogen 10 mg/dL (7-18) Creatinine 0.7 MG/DL (0.55-1.30) Estimat Glomerular Filtration Rate > 60 mL/min (>60) Glucose Level 219 MG/DL (74-106) Calcium Level 7.5 MG/DL (8.5-10.1) Magnesium Level 1.7 MG/DL (1.8-2.4) POC Whole Blood Glucose 240 MG/DL (74-106) 321 MG/DL (74-106) Test 04/03/20 20:57 04/04/20 05:35 04/04/20 05:43 04/04/20 06:19 POC Whole Blood Glucose 223 MG/DL (74-106) 72 MG/DL (74-106) White Blood Count 18.1 K/UL (4.8-10.8) Red Blood Count 3.80 M/UL (4.20-5.40) Hemoglobin 11.7 G/DL (12.0-16.0) Hematocrit 36.5 % (37.0-47.0) Mean Corpuscular Volume 96 FL (80-99) Mean Corpuscular Hemoglobin 30.7 PG (27.0-31.0) Mean Corpuscular Hemoglobin Concent 32.0 G/DL (32.0-36.0) Red Cell Distribution Width 12.7 % (11.6-14.8) Platelet Count 429 K/UL (150-450) Mean Platelet Volume 6.2 FL (6.5-10.1) Neutrophils (%) (Auto) % (45.0-75.0) Lymphocytes (%) (Auto) % (20.0-45.0) Monocytes (%) (Auto) % (1.0-10.0) Eosinophils (%) (Auto) % (0.0-3.0) Basophils (%) (Auto) % (0.0-2.0) Differential Total Cells Counted 100 Neutrophils % (Manual) 69 % (45-75) Lymphocytes % (Manual) 21 % (20-45) Monocytes % (Manual) 10 % (1-10) Eosinophils % (Manual) 0 % (0-3) Basophils % (Manual) 0 % (0-2) Band Neutrophils 0 % (0-8) Platelet Estimate Adequate Platelet Morphology Normal Red Blood Cell Morphology Normal Erythrocyte Sedimentation Rate 102 MM/HR (0-30) Sodium Level 140 MMOL/L (136-145) Potassium Level 3.2 MMOL/L (3.5-5.1) Chloride Level 106 MMOL/L (98-107) Carbon Dioxide Level 27 MMOL/L (21-32) Anion Gap 7 mmol/L (5-15) Blood Urea Nitrogen 8 mg/dL (7-18) Creatinine 0.7 MG/DL (0.55-1.30) Estimat Glomerular Filtration Rate > 60 mL/min (>60) Glucose Level 49 MG/DL (74-106) Calcium Level 7.8 MG/DL (8.5-10.1) Magnesium Level 1.5 MG/DL (1.8-2.4) Test 04/04/20 06:47 04/04/20 11:23 04/04/20 12:20 04/04/20 16:59 Vancomycin Level Trough 18.5 ug/mL (5.0-12.0) POC Whole Blood Glucose 371 MG/DL (74-106) Test 04/05/20 05:20 Height (Feet): 5 Height (Inches): 6.00 Weight (Pounds): 135 Objective Vitals: reviewed, normal General Appearance: no apparent distress, non-toxic, lethargic HEENT: bilateral eye normal inspection, bilateral eye PERRL Neck: full range of motion, supple/symm/no masses Resp: chest non-tender, lungs clear, normal breath sounds, speaking full sentences Cardiovascular: regular rate, rhythm, no edema Gastrointestinal: normal bowel sounds, non tender Rectal: deferred Genitourinary: normal inspection, no CVA tenderness Musculoskeletal: back normal, gait/station normal, non-tender Lymphatic: no adenopathy David De Jesus MD Apr 05, 2020 06:51
[2020-04-05 06:53] LABS: BASOPHILS % (AUTO) 0.5 % (0.0-2.0); EOSINOPHILS % (AUTO) 0.8 % (0.0-3.0); HEMATOCRIT 31.2 % (37.0-47.0); HEMOGLOBIN 10.1 G/DL (12.0-16.0); LYMPHOCYTES % (AUTO) 20.2 % (20.0-45.0); MEAN CORPUSCULAR VOLUME 95 FL (80-99); MONOCYTES % (AUTO) 8.2 % (1.0-10.0); NEUTROPHILS % (AUTO) 70.3 % (45.0-75.0); PLATELET COUNT 396 K/UL (150-450); RED BLOOD COUNT 3.26 M/UL (4.20-5.40); RED CELL DISTRIBUTION WIDTH 12.7 % (11.6-14.8); WHITE BLOOD COUNT 16.1 K/UL (4.8-10.8)
[2020-04-05 06:54] LABS: BLOOD UREA NITROGEN 9 mg/dL (7-18); CALCIUM 7.6 MG/DL (8.5-10.1); CARBON DIOXIDE 26 MMOL/L (21-32); CHLORIDE 107 MMOL/L (98-107); CREATININE 0.8 MG/DL (0.55-1.30); POTASSIUM 3.7 MMOL/L (3.5-5.1); SODIUM 139 MMOL/L (136-145)
[2020-04-05 08:00] VITALS: BP 123/57
[2020-04-05] MEDS: Levemir Flexpen SUBQ SCH ×2 (09:40→21:24)
[2020-04-05] MEDS: Aspirin Baby 81mg ORAL SCH (09:40)
[2020-04-05] MEDS: Dakin's 0.125% Soln (Quarter Strength) 16oz TOPIC SCH (09:40)
--- NOTE | 2020-04-05 10:03 | General Progress Note ---
Subjective Constitutional: Denies: no symptoms, chills, diaphoresis, fever, malaise, weakness, other HEENT: Denies: no symptoms, eye pain, blurred vision, tearing, double vision, ear pain, ear discharge, nose pain, nose congestion, throat pain, throat swelling, mouth pain, mouth swelling, other Cardiovascular: Denies: no symptoms, chest pain, edema, irregular heart rate, lightheadedness, palpitations, syncope, other Respiratory: Denies: no symptoms, cough, orthopnea, shortness of breath, SOB with excertion, SOB at rest, sputum, stridor, wheezing, other Gastrointestinal/Abdominal: Denies: no symptoms, abdomen distended, abdominal pain, black stools, tarry stools, blood in stool, constipated, diarrhea, difficulty swallowing, nausea, poor appetite, poor fluid intake, rectal bleeding, vomiting, other Genitourinary: Denies: no symptoms, burning, discharge, frequency, flank pain, hematuria, incontinence, pain, urgency, other Neurologic/Psychiatric: Denies: no symptoms, anxiety, depressed, emotional problems, headache, numbness, paresthesia, pre-existing deficit, seizure, tingling, tremors, weakness, other Endocrine: Denies: no symptoms, excessive sweating, flushing, intolerance to cold, intolerance to heat, increased hunger, increased thirst, increased urine, unexplained weight gain, unexplained weight loss, other Hematologic/Lymphatic: Denies: no symptoms, anemia, easy bleeding, easy bruising, other Allergies: Coded Allergies: PENICILLINS (Verified Allergy, Unknown, 12/05/17) Subjective no acute events overngiht. Patient sitting comfortably in bed. No acute distress. VSS. Pending MRI of left lower extremity. Objective Last 24 Hour Vital Signs Date Time Temp Pulse Resp B/P (MAP) Pulse Ox O2 Delivery O2 Flow Rate FiO2 04/05/20 09:40 123/57 04/05/20 09:40 98 123/57 04/05/20 08:00 97.8 98 18 123/57 (79) 99 04/05/20 04:00 97.6 79 19 119/72 (88) 98 04/05/20 00:00 97.8 76 20 124/71 (88) 98 04/04/20 21:00 Room Air 04/04/20 20:00 97.6 78 20 128/76 (93) 97 04/04/20 16:00 98.1 80 20 112/66 (81) 98 04/04/20 12:00 98.8 93 17 118/54 (75) 97 Intake and Output 04/04/20 04/05/20 19:00 07:00 Intake Total 680 ml 350 ml Output Total 1400 ml 750 ml Balance -720 ml -400 ml Intake Oral 680 ml 350 ml Output Urine Total 1400 ml 750 ml Laboratory Tests 04/04/20 11:23: POC Whole Blood Glucose [Pending] 04/04/20 12:20: Vancomycin Level Trough 18.5H 04/04/20 16:59: POC Whole Blood Glucose 371H 04/05/20 05:20: White Blood Count 16.1H, Red Blood Count 3.26L, Hemoglobin 10.1L, Hematocrit 31.2L, Mean Corpuscular Volume 95, Mean Corpuscular Hemoglobin 30.9, Mean Corpuscular Hemoglobin Concent 32.4, Red Cell Distribution Width 12.7, Platelet Count 396, Mean Platelet Volume 6.9, Neutrophils (%) (Auto) 70.3, Lymphocytes (%) (Auto) 20.2, Monocytes (%) (Auto) 8.2, Eosinophils (%) (Auto) 0.8, Basophils (%) (Auto) 0.5, Erythrocyte Sedimentation Rate 99H, Sodium Level 139, Potassium Level 3.7, Chloride Level 107, Carbon Dioxide Level 26, Blood Urea Nitrogen 9, Creatinine 0.8, Estimat Glomerular Filtration Rate > 60, Glucose Level 153#H, Calcium Level 7.6L, Magnesium Level 1.4L Height (Feet): 5 Height (Inches): 6.00 Weight (Pounds): 135 General Appearance: no apparent distress, alert, confused EENT: PERRL/EOMI, normal ENT inspection Neck: non-tender, supple Cardiovascular: normal rate, regular rhythm, no JVD Respiratory/Chest: lungs clear, normal breath sounds, no respiratory distress Abdomen: non tender, soft, no mass Extremities: normal range of motion, non-tender, other - Bilateral lower extremities wrapped in dressing 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 Barroso is a 69-year-old female with possible history of diabetes mellitus is presenting for acute encephalopathy. A: #Acute encephalopathy likely secondary to infectious etiology versus toxic metabolicstable #Sepsis with UTI, cellulitis, foot ulcer source, possible osteomyelitis of the left lower extremity #UTI #Left lower extremity heel ulcer w/ possible osteomyelitis #Left lower extremity cellulitis #Bilateral lower extremity venous dermatitis #Bilateral lower extremity edema #Lactic acidosis #Diabetes mellitus uncontrolled; A1c 11.2 #Essential hypertension P: continue broad spec antibiotics with vancomycin and Zosyn Follow-up urinary cultures, blood cultures, MRSA screen, wound culture Blood cultures negative for 72 hours MRSA screen positive Urine cultures positive for E. coli pansensitive -Inflammatory markers elevated Follow-up MRI of left lower extremity to rule out osteomyelitis We will start 6 units of Levemir in the day, continue 15 units at night We will increase premeal NovoLog from 5 to 9 units Continue moderate insulin sliding scale, reassess daily insulin requirements Blood glucose goal is 140-180 Hypoglycemia protocols Continue home Lipitor, amlodipine, lisinopril Wound consult Consult Dr. Alamo, general surgery, recs appreciated Consult Dr. Ernst, ID, recs appreciated Consult Dr. Lee, neurology, recs appreciated CM Code: Full, will need to discuss further with family or patient as when she gets better Diet: Diabetic Fluids: None DVT prophylaxis: Lovenox 40 mg daily Dispo: Pending MRI of left lower extremity: DC to SNF Time spent on this encounter was 35 minutes which included 20 minutes of couns eling and care coordination. I discussed with the nurse at bedside. Time of note may not reflect time patient was seen. Chintan Arrieta D.O Apr 05, 2020 10:03
--- NOTE | 2020-04-05 10:44 | Cardiology Report ---
APPROVED REPORT EXAM: Two-dimensional and M-mode echocardiogram with Doppler and color Doppler. INDICATION Congestive Heart Failure M-Mode DIMENSIONS IVSd0.9 (0.7-1.1cm)Left Atrium (MM)2.4 (1.6-4.0cm) LVDd3.4 (3.5-5.6cm)Aortic Root3.1 (2.0-3.7cm) PWd1.0 (0.7-1.1cm)Aortic Cusp Exc.1.2 (1.5-2.0cm) IVSs1.5 cm LVDs2.1 (2.5-4.0cm) PWs1.1 cm <Conclusion> Normal left ventricular chamber size, systolic function and wall motion . Left ventricular ejection fraction estimated to be 60-65%. Mild left ventricular hypertrophy by 2-D. No pericardial effusion. All other cardiac chamber sizes are within normal limits. Aortic valve calcification with decreased cusp excursion c/w aortic stenosis.Thickened mitral valve leaflets with normal excursion. Mitral annulus and aortic root calcification. Pulmonic valve not well visualized. Normal tricuspid valve structure. IVC at normal size with physiologic collapse. A color flow and spectral Doppler study was performed and revealed: No aortic insufficiency. Peak aortic valve gradient of 57 mm Hg and a mean of 26 mmHg. Aortic valve area 1.8 cm2 calculated by continuity equation. Mild mitral regurgitation. Mitral diastolic velocities suggest reduced left ventricular relaxation c/w mild LV diastolic dysfunction (Grade I ). Trace to mild tricuspid regurgitation. Tricuspid systolic velocities suggests peak right ventricular systolic pressure of 23 mmHg. No pulmonic insufficiency .
[2020-04-05 12:00] VITALS: BP 128/62
[2020-04-05] MEDS ORDERED: LORazepam Inj 2mg/ml 1ml IV SCH (12:00)
--- NOTE | 2020-04-05 13:58 | Surgery Progress Note ---
Surgery Progress Note Subjective Additional Comments no acute events comfortable stable no n/v awake and eating on her own no complaints labs noted Objective Last 24 Hour Vital Signs Date Time Temp Pulse Resp B/P (MAP) Pulse Ox O2 Delivery O2 Flow Rate FiO2 04/05/20 09:40 123/57 04/05/20 09:40 98 123/57 04/05/20 08:00 97.8 98 18 123/57 (79) 99 04/05/20 04:00 97.6 79 19 119/72 (88) 98 04/05/20 00:00 97.8 76 20 124/71 (88) 98 04/04/20 21:00 Room Air 04/04/20 20:00 97.6 78 20 128/76 (93) 97 04/04/20 16:00 98.1 80 20 112/66 (81) 98 I&O Intake and Output 04/04/20 04/05/20 19:00 07:00 Intake Total 680 ml 350 ml Output Total 1400 ml 750 ml Balance -720 ml -400 ml Intake Oral 680 ml 350 ml Output Urine Total 1400 ml 750 ml Dressing: saturated Cardiovascular: RSR Respiratory: decreased breath sounds Abdomen: soft, non-tender, present bowel sounds Extremities: no tenderness, no cyanosis Laboratory Tests Test 04/04/20 16:59 04/05/20 05:20 04/05/20 12:13 POC Whole Blood Glucose 371 MG/DL (74-106) H 310 MG/DL (74-106) H White Blood Count 16.1 K/UL (4.8-10.8) H Red Blood Count 3.26 M/UL (4.20-5.40) L Hemoglobin 10.1 G/DL (12.0-16.0) L Hematocrit 31.2 % (37.0-47.0) L Mean Corpuscular Volume 95 FL (80-99) Mean Corpuscular Hemoglobin 30.9 PG (27.0-31.0) Mean Corpuscular Hemoglobin Concent 32.4 G/DL (32.0-36.0) Red Cell Distribution Width 12.7 % (11.6-14.8) Platelet Count 396 K/UL (150-450) Mean Platelet Volume 6.9 FL (6.5-10.1) Neutrophils (%) (Auto) 70.3 % (45.0-75.0) Lymphocytes (%) (Auto) 20.2 % (20.0-45.0) Monocytes (%) (Auto) 8.2 % (1.0-10.0) Eosinophils (%) (Auto) 0.8 % (0.0-3.0) Basophils (%) (Auto) 0.5 % (0.0-2.0) Erythrocyte Sedimentation Rate 99 MM/HR (0-30) H Sodium Level 139 MMOL/L (136-145) Potassium Level 3.7 MMOL/L (3.5-5.1) Chloride Level 107 MMOL/L (98-107) Carbon Dioxide Level 26 MMOL/L (21-32) Blood Urea Nitrogen 9 mg/dL (7-18) Creatinine 0.8 MG/DL (0.55-1.30) Estimat Glomerular Filtration Rate > 60 mL/min (>60) Glucose Level 153 MG/DL (74-106) #H Calcium Level 7.6 MG/DL (8.5-10.1) L Magnesium Level 1.4 MG/DL (1.8-2.4) L Plan Problems: (1) Decubitus ulcer of heel (2) Sacral decubitus ulcer (3) Sepsis Assessment & Plan: 69-year-old female multiple comorbidities presented with failure to thrive lethargic altered mental status noted to have significant leukocytosis greater than 30,000 lactic acidosis 2.3 abnormal labs A1c 11 identified to have draining bilateral heel unstageable decubitus ulcers multiple skin lesions on the lower extremities as well as a sacral decubitus ulcer as well. Patient is currently on antibiotics under work-up microbiology identified urine noted UTI. Imaging reviewed. Patient has been eating less recently but currently is eating at the bedside though does not look like she is taking much in. Treatment plan Wash sacral area daily with normal saline apply Thera honey followed by Optifoam dressing change daily and as needed saturation Wash bilateral heels daily with normal saline. Swab with Betadine unstageable necrotic eschar on bilateral heels and cover with Optifoam dressings. Change daily and as needed saturation Lower lower extremity ulcerations saw with Betadine cover with Optifoam dressing. Turn every 2 hours Offload pressure with pillows pillow on side as necessary as well as underneath calf to elevate heels Air soft mattress nutritional optimization continue IV antibiotics per infectious disease SACRUM- STAGE - UNSTAGEABLE PRESSURE ULCER MEASURES 6.0X13.0X0.2. WOUND BED WITH 80% SLOUGH AND 20% PINK GRANULATION TISSUE. NOTED FOUL ODOR RECOMMEND-CLEAN WITH SALINE. APPLY WET TO DRY DRESSINGS WITH DAKINS 0.25% DAKI N'S SOLUTION.COVER WITH OPTIFOAM DRESSING. REPLACE DRESSING DAILY. LEFT ISCHIUM-STAGE II PRESSURE ULCER MEASURES 4.5X0.5X0.2CM. PINK GRANULATION TISSUE NOTED. RECOMMEND- CLEAN WITH SALINE, PAT DRY. APPLY CALAZINE AND COVER WITH OPTIFOAM DRESSING. LEFT ANTERIOR LOW LEG-VENOUS ULCER MEASURES 8.0X2.6X0.2CM 100% YELLOW SLOUGH NOTED TO WOUND BED. RECOMMEND- CLEAN WITH SALINE, PA DRY. APPLY THERAHONEY. COVER WITH GAUZE AND SECURE WITH KERLIX. REPLACE DRESSING DAILY. LEFT HEEL- UNSTAGEABLE PRESSURE ULCER MEASURES 9.5X8.0X0.3CM. 100% MOIST BLACK ESCHAR. WITH STRONG FOUL ODOR. RECOMMEND- CLEAN WITH SALINE. APPLY WET TO DRY DRESSINGS WITH DAKINS 0.25% DAKIN'S SOLUTION. COVER WITH GAUZE, ABD PAD AND SECURE WITH KERLIX. REPLACE DAILY. RIGHT ANTERIOR LOW LEG-VENOUS ULCER MEASURES 2.5X3.0X0.2CM WITH PINK GRANULATION TISSUE. RIGHT ANTERIOR DISTAL LOW LEG -VENOUS ULCER MEASURES 1.5X0.2X0.1CM WITH PINK GRANULATION TISSUE. RECOMMEND-CLEAN WITH SALINE PAT DRY. APPLY XEROFORM GAUZE, GAUZE AND COVER WITH KERLIX. REPLACE DAILY RIGHT HEEL-DTI MEASURES 2.5X3.0CM. AREA DARK PURPLE IN COLOR AND BOGGY TO TOUCH. NO DRAINAGE NOTED. RECOMMEND- PAINT WITH CAVILON SKIN PROTECTOR, GAUZE AND WRAP WITH KERLIX. REPLACE DAILY. We will follow with recommendations thank you for letting participate patient's care (4) UTI (urinary tract infection) (5) Hyperkalemia (6) Leukocytosis (7) Altered mental status (8) Diabetes mellitus out of control (9) Acute on chronic renal failure (10) NSTEMI (non-ST elevated myocardial infarction) (11) High anion gap metabolic acidosis Joseph Alamo Apr 05, 2020 13:58
[2020-04-05 16:00] VITALS: BP 121/61
--- NOTE | 2020-04-05 17:55 | Diagnostic Imaging Report ---
Indication: Left ankle and lower leg soft tissue ulcer, heel pressure ulcer Technique: Sagittal, axial, coronal T1 fast spin echo and STIR images obtained of the hindfoot. Comparison: Reference made to foot radiograph 03/31/2020 Findings: Fairly numerous bubbles of soft tissue gas are seen within the subcutaneous fat and possibly the intrinsic musculature of the plantar surface of the heel. There is high STIR and decreased T1 signal within the calcaneus, and there is indistinctness of the inferior and posterior cortical margins of the calcaneus. There is some soft tissue ulceration of the plantar surface of the heel, as well as marked thinning of the subcutaneous fat overlying the calcaneal tuberosity. There is considerable edema of the plantar surface subcutaneous fat. There is also edema of the subcutaneous fat of the lateral and medial ankle. No focal discrete fluid collection to suggest drainable abscess demonstrated. Impression: Evidence of ulceration overlying the calcaneal tuberosity Soft tissue gas within the heel, as described. This may represent penetration the above, but is worrisome for infection with a gas-forming organism Abnormal signal within the posterior and mid calcaneus, highly suspicious for acute osteomyelitis Findings discussed by phone with Dr. Alamo at the time of interpretation
--- NOTE | 2020-04-05 19:04 | Neurology Progress Note ---
Interim History Interim History Interim History no new deficits neuro will FU peripehrally Objective Physical Exam Last Vital Signs Date Time Temp Pulse Resp B/P (MAP) Pulse Ox O2 Delivery O2 Flow Rate FiO2 04/05/20 16:00 97.8 94 20 121/61 (81) 96 04/05/20 09:00 Room Air 04/01/20 06:58 21 Laboratory Tests Test 04/05/20 05:20 04/05/20 12:13 White Blood Count 16.1 K/UL (4.8-10.8) H Red Blood Count 3.26 M/UL (4.20-5.40) L Hemoglobin 10.1 G/DL (12.0-16.0) L Hematocrit 31.2 % (37.0-47.0) L Mean Corpuscular Volume 95 FL (80-99) Mean Corpuscular Hemoglobin 30.9 PG (27.0-31.0) Mean Corpuscular Hemoglobin Concent 32.4 G/DL (32.0-36.0) Red Cell Distribution Width 12.7 % (11.6-14.8) Platelet Count 396 K/UL (150-450) Mean Platelet Volume 6.9 FL (6.5-10.1) Neutrophils (%) (Auto) 70.3 % (45.0-75.0) Lymphocytes (%) (Auto) 20.2 % (20.0-45.0) Monocytes (%) (Auto) 8.2 % (1.0-10.0) Eosinophils (%) (Auto) 0.8 % (0.0-3.0) Basophils (%) (Auto) 0.5 % (0.0-2.0) Erythrocyte Sedimentation Rate 99 MM/HR (0-30) H Sodium Level 139 MMOL/L (136-145) Potassium Level 3.7 MMOL/L (3.5-5.1) Chloride Level 107 MMOL/L (98-107) Carbon Dioxide Level 26 MMOL/L (21-32) Blood Urea Nitrogen 9 mg/dL (7-18) Creatinine 0.8 MG/DL (0.55-1.30) Estimat Glomerular Filtration Rate > 60 mL/min (>60) Glucose Level 153 MG/DL (74-106) #H Calcium Level 7.6 MG/DL (8.5-10.1) L Magnesium Level 1.4 MG/DL (1.8-2.4) L POC Whole Blood Glucose 310 MG/DL (74-106) H General: well nourished Head: normocophalic Neck: no rigidity Neurologic Exam Mental Status: awake Objective confused, follows midline oriened to self LE weakness and numbness Impression/Recommendations Problems: (1) Sepsis (2) UTI (urinary tract infection) (3) Hyperkalemia (4) Leukocytosis (5) Altered mental status (6) Diabetes mellitus out of control (7) Acute on chronic renal failure (8) NSTEMI (non-ST elevated myocardial infarction) (9) High anion gap metabolic acidosis (10) Sacral decubitus ulcer (11) Decubitus ulcer of heel Diagnostic Impression acute encephalopathy, likely metabolic, fluctuating. LE weakness Cellulitis. Diabetes Delirium precautions ordered Cont atb PT as able Thee Lee MD Apr 05, 2020 19:04
[2020-04-05 20:00] VITALS: BP 125/58
[2020-04-05] MEDS: Enoxaparin 40mg Inj SUBQ SCH (21:23)
[2020-04-05] MEDS: Atorvastatin 80mg tab ORAL SCH (21:26)
[2020-04-06] VITALS: BP 121/60
[2020-04-06] MEDS: Vancomycin 1gm/D5W 275ml IVPB SCH ×4 (02:54→12:15)
[2020-04-06 04:00] VITALS: BP 128/62
[2020-04-06] MEDS: Piperacillin/Tazobactam 3.375 GM in NS 110 ML IVPB SCH ×3 (06:04→21:35)
[2020-04-06 06:14] LABS: BASOPHILS % (AUTO) 0.9 % (0.0-2.0); EOSINOPHILS % (AUTO) 1.3 % (0.0-3.0); HEMATOCRIT 35.1 % (37.0-47.0); HEMOGLOBIN 11.3 G/DL (12.0-16.0); LYMPHOCYTES % (AUTO) 24.6 % (20.0-45.0); MEAN CORPUSCULAR VOLUME 96 FL (80-99); MONOCYTES % (AUTO) 8.9 % (1.0-10.0); NEUTROPHILS % (AUTO) 64.3 % (45.0-75.0); PLATELET COUNT 445 K/UL (150-450); RED BLOOD COUNT 3.66 M/UL (4.20-5.40); WHITE BLOOD COUNT 16.7 K/UL (4.8-10.8)
[2020-04-06] MEDS: NovoLOG Insulin Flexpen SUBQ SCH ×7 (06:24→21:33)
[2020-04-06 06:45] LABS: ANION GAP 4 mmol/L (5-15); BLOOD UREA NITROGEN 13 mg/dL (7-18); CALCIUM 7.9 MG/DL (8.5-10.1); CARBON DIOXIDE 29 MMOL/L (21-32); CHLORIDE 108 MMOL/L (98-107); CREATININE 0.8 MG/DL (0.55-1.30); POTASSIUM 3.6 MMOL/L (3.5-5.1); SODIUM 141 MMOL/L (136-145)
--- NOTE | 2020-04-06 06:55 | Hematology/Onc Progress Note ---
Assessment/Plan Assessment/Plan Meds; noted # Leukocytosis likely secondary to underlying diabetic ketoacidosis, rule out underlying infection. --> likely due to infected wounds, heel ulcerations --> ABX vanc/zosyn --> Peripheral smear, reviewed, hold off flow for now --> elev inflammatory markers --> WBC 35-->22-->18 # Anemia due to underlying chronic disease. --> Continue to closely monitor for improvement. --> Anemia w/u has been reviewed. Will trend cbc daily. --> Hgb goal >7 -> hgb 12-->10.7 --> anemia panel reviewed before # Hyperkalemia. Given Kayexalate. --> Improved # Diabetic ketoacidosis. --> per before, improved # High anion gap acidosis. To be seen by primary team. --> Gap is closing. On insulin sliding scale. # Shortness of breath in past with dka # Dvt ppx lovenox sq The time the note was entered does not necessarily correspond to the time the patient was seen. Subjective Constitutional: Denies: no symptoms, chills, fever, malaise, weakness, other HEENT: Denies: no symptoms, eye pain, blurred vision, tearing, double vision, ear pain, ear discharge, nose pain, nose congestion, throat pain, throat swelling, mouth pain, mouth swelling, other Cardiovascular: Denies: no symptoms, chest pain, edema, irregular heart rate, lightheadedness, palpitations, syncope, other Gastrointestinal/Abdominal: Denies: no symptoms, abdomen distended, abdominal pain, black stools, tarry stools, blood in stool, constipated, diarrhea, difficulty swallowing, nausea, poor appetite, poor fluid intake, rectal bl eeding, vomiting, other Genitourinary: Denies: no symptoms, burning, discharge, frequency, flank pain, hematuria, incontinence, pain, urgency, other Endocrine: Denies: no symptoms, excessive sweating, flushing, intolerance to cold, intolerance to heat, increased hunger, increased thirst, increased urine, unexplained weight gain, unexplained weight loss, other Hematologic/Lymphatic: Denies: no symptoms, anemia, easy bleeding, easy bruising, adenopathy, other Allergies: Coded Allergies: PENICILLINS (Verified Allergy, Unknown, 12/05/17) Subjective 04/04 labs reviewed, meds noted, no bleeding, is on vanc/zosyn, wbc better 04/05 is on abx zosyn/vanc, labs noted, with facial grimace, no complaints 04/06 labs reviewed, improved, meds noted on abx Objective Objective Current Medications Medications (Trade) Dose Ordered Sig/Enrike Route PRN Reason Start Time Stop Time Status Last Admin Dose Admin Acetaminophen (Tylenol) 650 mg Q4H PRN ORAL Temp >100.5 03/31/20 19:00 04/30/20 18:59 04/01/20 13:05 Acetaminophen (Tylenol) 650 mg Q4H PRN ORAL Mild Pain (Pain Scale 1-3) 03/31/20 19:00 04/30/20 18:59 Al Hydroxide/Mg Hydroxide (Mylanta II) 30 ml Q6H PRN ORAL dyspepsia 03/31/20 19:00 04/30/20 18:59 Amlodipine Besylate (Norvasc) 5 mg DAILY ORAL 04/01/20 09:00 05/01/20 08:59 04/05/20 09:40 Aspirin (ASA) 81 mg DAILY ORAL 04/01/20 09:00 05/16/20 08:59 04/05/20 09:40 Atorvastatin Calcium (Lipitor) 80 mg BEDTIME ORAL 03/31/20 21:00 06/29/20 20:59 04/05/20 21:26 Benazepril HCl (Lotensin) 40 mg DAILY ORAL 04/01/20 09:00 05/01/20 08:59 04/05/20 09:40 Dextrose (Dextrose 50%) 25 ml Q30M PRN IV Hypoglycemia 03/31/20 20:30 06/29/20 20:29 04/06/20 06:30 Dextrose (Dextrose 50%) 50 ml Q30M PRN IV Hypoglycemia 03/31/20 20:30 06/29/20 20:29 Enoxaparin Sodium (Lovenox) 40 mg Q24H SUBQ 03/31/20 21:00 06/29/20 20:59 04/05/20 21:23 Gadobutrol (Gadavist) 7.5 mmol NOW PRN IV Radiology Procedure 04/02/20 16:15 04/06/20 16:14 Insulin Aspart (NovoLOG) BEFORE MEALS AND HS SUBQ 03/31/20 21:00 06/29/20 20:59 04/05/20 21:25 Insulin Aspart (NovoLOG) 9 units NOVOTIAC SUBQ 04/05/20 11:50 07/02/20 11:49 04/05/20 19:18 Insulin Detemir (Levemir) 6 units DAILY SUBQ 04/05/20 09:00 07/04/20 08:59 04/05/20 09:40 Insulin Detemir (Levemir) 15 units QHS SUBQ 04/04/20 21:00 06/29/20 21:59 04/05/20 21:24 Magnesium Hydroxide (Mom) 30 ml HSPRN PRN ORAL Constipation 03/31/20 19:00 04/30/20 18:59 Ondansetron HCl (Zofran) 4 mg Q6H PRN IVP Nausea & Vomiting 03/31/20 19:00 04/30/20 18:59 Piperacillin Sod/ Tazobactam Sod 3.375 gm/Sodium Chloride 110 ml @ 27.5 mls/hr Q8HR IVPB 03/31/20 22:00 04/07/20 21:59 04/06/20 06:04 Sodium Hypochlorite (Dakin's Quarter Strength) 1 applic DAILY TOPIC 04/03/20 09:00 05/03/20 08:59 04/05/20 09:40 Vancomycin HCl (Vanco pharmacy to dose) 1 ea DAILY PRN MISC Per rx protocol 03/31/20 19:15 04/30/20 19:14 Vancomycin HCl 1 gm/Dextrose 275 ml @ 183.708 mls/hr Q12H IVPB 04/03/20 01:00 04/08/20 00:59 04/06/20 02:54 Last 24 Hour Vital Signs Date Time Temp Pulse Resp B/P (MAP) Pulse Ox O2 Delivery O2 Flow Rate FiO2 04/06/20 04:00 98.2 92 18 128/62 (84) 97 04/06/20 00:00 98.0 94 20 121/60 (80) 98 04/05/20 21:00 Room Air 04/05/20 20:00 96.8 92 20 125/58 (80) 99 04/05/20 16:00 97.8 94 20 121/61 (81) 96 04/05/20 14:30 98 18 123/57 99 04/05/20 14:00 98 18 123/57 99 04/05/20 12:00 98.2 92 18 128/62 (84) 97 04/05/20 09:40 123/57 04/05/20 09:40 98 123/57 04/05/20 09:00 Room Air 04/05/20 08:00 97.8 98 18 123/57 (79) 99 04/05/20 04:00 97.6 79 19 119/72 (88) 98 04/05/20 00:00 97.8 76 20 124/71 (88) 98 04/04/20 21:00 Room Air 04/04/20 20:00 97.6 78 20 128/76 (93) 97 04/04/20 16:00 98.1 80 20 112/66 (81) 98 04/04/20 12:00 98.8 93 17 118/54 (75) 97 04/04/20 09:00 Room Air 04/04/20 08:04 130/61 04/04/20 08:04 84 130/61 04/04/20 08:00 97.7 91 17 131/60 (83) 96 Intake and Output 04/05/20 04/06/20 19:00 07:00 Intake Total 960 ml 385.000 ml Output Total 400 ml 300 ml Balance 560 ml 85.000 ml Intake Oral 960 ml IV Total 385.000 ml Output Urine Total 400 ml 300 ml # Voids 3 # Bowel Movements 4 Labs Test 04/03/20 12:06 04/03/20 17:42 04/03/20 20:57 04/04/20 05:35 POC Whole Blood Glucose 240 MG/DL (74-106) 321 MG/DL (74-106) 223 MG/DL (74-106) White Blood Count 18.1 K/UL (4.8-10.8) Red Blood Count 3.80 M/UL (4.20-5.40) Hemoglobin 11.7 G/DL (12.0-16.0) Hematocrit 36.5 % (37.0-47.0) Mean Corpuscular Volume 96 FL (80-99) Mean Corpuscular Hemoglobin 30.7 PG (27.0-31.0) Mean Corpuscular Hemoglobin Concent 32.0 G/DL (32.0-36.0) Red Cell Distribution Width 12.7 % (11.6-14.8) Platelet Count 429 K/UL (150-450) Mean Platelet Volume 6.2 FL (6.5-10.1) Neutrophils (%) (Auto) % (45.0-75.0) Lymphocytes (%) (Auto) % (20.0-45.0) Monocytes (%) (Auto) % (1.0-10.0) Eosinophils (%) (Auto) % (0.0-3.0) Basophils (%) (Auto) % (0.0-2.0) Differential Total Cells Counted 100 Neutrophils % (Manual) 69 % (45-75) Lymphocytes % (Manual) 21 % (20-45) Monocytes % (Manual) 10 % (1-10) Eosinophils % (Manual) 0 % (0-3) Basophils % (Manual) 0 % (0-2) Band Neutrophils 0 % (0-8) Platelet Estimate Adequate Platelet Morphology Normal Red Blood Cell Morphology Normal Erythrocyte Sedimentation Rate 102 MM/HR (0-30) Sodium Level 140 MMOL/L (136-145) Potassium Level 3.2 MMOL/L (3.5-5.1) Chloride Level 106 MMOL/L (98-107) Carbon Dioxide Level 27 MMOL/L (21-32) Anion Gap 7 mmol/L (5-15) Blood Urea Nitrogen 8 mg/dL (7-18) Creatinine 0.7 MG/DL (0.55-1.30) Estimat Glomerular Filtration Rate > 60 mL/min (>60) Glucose Level 49 MG/DL (74-106) Calcium Level 7.8 MG/DL (8.5-10.1) Magnesium Level 1.5 MG/DL (1.8-2.4) Test 04/04/20 05:43 04/04/20 06:19 04/04/20 06:47 04/04/20 11:23 POC Whole Blood Glucose 72 MG/DL (74-106) Test 04/04/20 12:20 04/04/20 16:59 04/05/20 05:20 04/05/20 12:13 Vancomycin Level Trough 18.5 ug/mL (5.0-12.0) POC Whole Blood Glucose 371 MG/DL (74-106) 310 MG/DL (74-106) White Blood Count 16.1 K/UL (4.8-10.8) Red Blood Count 3.26 M/UL (4.20-5.40) Hemoglobin 10.1 G/DL (12.0-16.0) Hematocrit 31.2 % (37.0-47.0) Mean Corpuscular Volume 95 FL (80-99) Mean Corpuscular Hemoglobin 30.9 PG (27.0-31.0) Mean Corpuscular Hemoglobin Concent 32.4 G/DL (32.0-36.0) Red Cell Distribution Width 12.7 % (11.6-14.8) Platelet Count 396 K/UL (150-450) Mean Platelet Volume 6.9 FL (6.5-10.1) Neutrophils (%) (Auto) 70.3 % (45.0-75.0) Lymphocytes (%) (Auto) 20.2 % (20.0-45.0) Monocytes (%) (Auto) 8.2 % (1.0-10.0) Eosinophils (%) (Auto) 0.8 % (0.0-3.0) Basophils (%) (Auto) 0.5 % (0.0-2.0) Erythrocyte Sedimentation Rate 99 MM/HR (0-30) Sodium Level 139 MMOL/L (136-145) Potassium Level 3.7 MMOL/L (3.5-5.1) Chloride Level 107 MMOL/L (98-107) Carbon Dioxide Level 26 MMOL/L (21-32) Blood Urea Nitrogen 9 mg/dL (7-18) Creatinine 0.8 MG/DL (0.55-1.30) Estimat Glomerular Filtration Rate > 60 mL/min (>60) Glucose Level 153 MG/DL (74-106) Calcium Level 7.6 MG/DL (8.5-10.1) Magnesium Level 1.4 MG/DL (1.8-2.4) Test 04/05/20 20:31 04/06/20 05:30 POC Whole Blood Glucose 258 MG/DL (74-106) White Blood Count 16.7 K/UL (4.8-10.8) Red Blood Count 3.66 M/UL (4.20-5.40) Hemoglobin 11.3 G/DL (12.0-16.0) Hematocrit 35.1 % (37.0-47.0) Mean Corpuscular Volume 96 FL (80-99) Mean Corpuscular Hemoglobin 30.7 PG (27.0-31.0) Mean Corpuscular Hemoglobin Concent 32.1 G/DL (32.0-36.0) Red Cell Distribution Width 13.0 % (11.6-14.8) Platelet Count 445 K/UL (150-450) Mean Platelet Volume 6.8 FL (6.5-10.1) Neutrophils (%) (Auto) 64.3 % (45.0-75.0) Lymphocytes (%) (Auto) 24.6 % (20.0-45.0) Monocytes (%) (Auto) 8.9 % (1.0-10.0) Eosinophils (%) (Auto) 1.3 % (0.0-3.0) Basophils (%) (Auto) 0.9 % (0.0-2.0) Sodium Level 141 MMOL/L (136-145) Potassium Level 3.6 MMOL/L (3.5-5.1) Chloride Level 108 MMOL/L (98-107) Carbon Dioxide Level 29 MMOL/L (21-32) Anion Gap 4 mmol/L (5-15) Blood Urea Nitrogen 13 mg/dL (7-18) Creatinine 0.8 MG/DL (0.55-1.30) Estimat Glomerular Filtration Rate > 60 mL/min (>60) Glucose Level 59 MG/DL (74-106) Calcium Level 7.9 MG/DL (8.5-10.1) Magnesium Level 1.7 MG/DL (1.8-2.4) Height (Feet): 5 Height (Inches): 6.00 Weight (Pounds): 135 Objective Vitals: reviewed, normal General Appearance: no apparent distress, non-toxic, lethargic HEENT: bilateral eye normal inspection, bilateral eye PERRL Neck: full range of motion, supple/symm/no masses Resp: chest non-tender, lungs clear, normal breath sounds, speaking full sentences Cardiovascular: regular rate, rhythm, no edema Gastrointestinal: normal bowel sounds, non tender Rectal: deferred Genitourinary: normal inspection, no CVA tenderness Musculoskeletal: back normal, gait/station normal, non-tender Lymphatic: no adenopathy David De Jesus MD Apr 06, 2020 06:55
[2020-04-06 08:00] VITALS: BP 138/64
[2020-04-06] MEDS: Aspirin Baby 81mg ORAL SCH (08:53)
[2020-04-06] MEDS: Levemir Flexpen SUBQ SCH ×3 (08:55→21:33)
[2020-04-06] MEDS ORDERED: Heparin 5000 units/ml inj SUBQ SCH (09:00)
[2020-04-06] MEDS: Dakin's 0.125% Soln (Quarter Strength) 16oz TOPIC SCH (09:01)
--- NOTE | 2020-04-06 11:19 | Surgery Progress Note ---
Surgery Progress Note Subjective Additional Comments MRI noted leukocytosis no significant drainage from heel podiatry eval appreciated Objective Last 24 Hour Vital Signs Date Time Temp Pulse Resp B/P (MAP) Pulse Ox O2 Delivery O2 Flow Rate FiO2 04/06/20 09:00 Room Air 04/06/20 08:53 138/64 04/06/20 08:53 90 138/64 04/06/20 08:00 98.9 90 19 138/64 (88) 97 04/06/20 04:00 98.2 92 18 128/62 (84) 97 04/06/20 00:00 98.0 94 20 121/60 (80) 98 04/05/20 21:00 Room Air 04/05/20 20:00 96.8 92 20 125/58 (80) 99 04/05/20 16:00 97.8 94 20 121/61 (81) 96 04/05/20 14:30 98 18 123/57 99 04/05/20 14:00 98 18 123/57 99 04/05/20 12:00 98.2 92 18 128/62 (84) 97 I&O Intake and Output 04/05/20 04/06/20 19:00 07:00 Intake Total 960 ml 385.000 ml Output Total 400 ml 300 ml Balance 560 ml 85.000 ml Intake Oral 960 ml IV Total 385.000 ml Output Urine Total 400 ml 300 ml # Voids 3 # Bowel Movements 4 Dressing: saturated Wound: other Cardiovascular: RSR Respiratory: decreased breath sounds Abdomen: soft, non-tender, present bowel sounds Extremities: cyanosis, other Laboratory Tests Test 04/05/20 12:13 04/05/20 20:31 04/06/20 05:30 04/06/20 08:51 POC Whole Blood Glucose 310 MG/DL (74-106) H 258 MG/DL (74-106) H Pending White Blood Count 16.7 K/UL (4.8-10.8) H Red Blood Count 3.66 M/UL (4.20-5.40) L Hemoglobin 11.3 G/DL (12.0-16.0) L Hematocrit 35.1 % (37.0-47.0) L Mean Corpuscular Volume 96 FL (80-99) Mean Corpuscular Hemoglobin 30.7 PG (27.0-31.0) Mean Corpuscular Hemoglobin Concent 32.1 G/DL (32.0-36.0) Red Cell Distribution Width 13.0 % (11.6-14.8) Platelet Count 445 K/UL (150-450) Mean Platelet Volume 6.8 FL (6.5-10.1) Neutrophils (%) (Auto) 64.3 % (45.0-75.0) Lymphocytes (%) (Auto) 24.6 % (20.0-45.0) Monocytes (%) (Auto) 8.9 % (1.0-10.0) Eosinophils (%) (Auto) 1.3 % (0.0-3.0) Basophils (%) (Auto) 0.9 % (0.0-2.0) Sodium Level 141 MMOL/L (136-145) Potassium Level 3.6 MMOL/L (3.5-5.1) Chloride Level 108 MMOL/L (98-107) H Carbon Dioxide Level 29 MMOL/L (21-32) Anion Gap 4 mmol/L (5-15) L Blood Urea Nitrogen 13 mg/dL (7-18) Creatinine 0.8 MG/DL (0.55-1.30) Estimat Glomerular Filtration Rate > 60 mL/min (>60) Glucose Level 59 MG/DL (74-106) L Calcium Level 7.9 MG/DL (8.5-10.1) L Magnesium Level 1.7 MG/DL (1.8-2.4) L Plan Problems: (1) Decubitus ulcer of heel Assessment & Plan: podiatry eval appreciated bibiana noted cont abx (2) Sacral decubitus ulcer (3) Sepsis Assessment & Plan: 69-year-old female multiple comorbidities presented with failure to thrive lethargic altered mental status noted to have significant leukocytosis greater than 30,000 lactic acidosis 2.3 abnormal labs A1c 11 identified to have draining bilateral heel unstageable decubitus ulcers multiple skin lesions on the lower extremities as well as a sacral decubitus ulcer as well. Patient is currently on antibiotics under work-up microbiology identified urine noted UTI. Imaging reviewed. Patient has been eating less recently but currently is eating at the bedside though does not look like she is taking much in. Treatment plan Wash sacral area daily with normal saline apply Thera honey followed by Optifoam dressing change daily and as needed saturation Wash bilateral heels daily with normal saline. Swab with Betadine unstageable necrotic eschar on bilateral heels and cover with Optifoam dressings. Change daily and as needed saturation Lower lower extremity ulcerations saw with Betadine cover with Optifoam dressing. Turn every 2 hours Offload pressure with pillows pillow on side as necessary as well as underneath calf to elevate heels Air soft mattress nutritional optimization continue IV antibiotics per infectious disease SACRUM- STAGE - UNSTAGEABLE PRESSURE ULCER MEASURES 6.0X13.0X0.2. WOUND BED WITH 80% SLOUGH AND 20% PINK GRANULATION TISSUE. NOTED FOUL ODOR RECOMMEND-CLEAN WITH SALINE. APPLY WET TO DRY DRESSINGS WITH DAKINS 0.25% D MELO'S SOLUTION.COVER WITH OPTIFOAM DRESSING. REPLACE DRESSING DAILY. LEFT ISCHIUM-STAGE II PRESSURE ULCER MEASURES 4.5X0.5X0.2CM. PINK GRANULATION TISSUE NOTED. RECOMMEND- CLEAN WITH SALINE, PAT DRY. APPLY CALAZINE AND COVER WITH OPTIFOAM DRESSING. LEFT ANTERIOR LOW LEG-VENOUS ULCER MEASURES 8.0X2.6X0.2CM 100% YELLOW SLOUGH NOTED TO WOUND BED. RECOMMEND- CLEAN WITH SALINE, PA DRY. APPLY THERAHONEY. COVER WITH GAUZE AND SECURE WITH KERLIX. REPLACE DRESSING DAILY. LEFT HEEL- UNSTAGEABLE PRESSURE ULCER MEASURES 9.5X8.0X0.3CM. 100% MOIST BLACK ESCHAR. WITH STRONG FOUL ODOR. RECOMMEND- CLEAN WITH SALINE. APPLY WET TO DRY DRESSINGS WITH DAKINS 0.25% DAKIN'S SOLUTION. COVER WITH GAUZE, ABD PAD AND SECURE WITH KERLIX. REPLACE DAILY. RIGHT ANTERIOR LOW LEG-VENOUS ULCER MEASURES 2.5X3.0X0.2CM WITH PINK GRANULATION TISSUE. RIGHT ANTERIOR DISTAL LOW LEG -VENOUS ULCER MEASURES 1.5X0.2X0.1CM WITH PINK GRANULATION TISSUE. RECOMMEND-CLEAN WITH SALINE PAT DRY. APPLY XEROFORM GAUZE, GAUZE AND COVER WITH KERLIX. REPLACE DAILY RIGHT HEEL-DTI MEASURES 2.5X3.0CM. AREA DARK PURPLE IN COLOR AND BOGGY TO TOUCH. NO DRAINAGE NOTED. RECOMMEND- PAINT WITH CAVILON SKIN PROTECTOR, GAUZE AND WRAP WITH KERLIX. REPLACE DAILY. We will follow with recommendations thank you for letting participate patient's care Fairly numerous bubbles of soft tissue gas are seen within the subcutaneous fat and possibly the intrinsic musculature of the plantar surface of the heel. There is high STIR and decreased T1 signal within the calcaneus, and there is indistinctness of the inferior and posterior cortical margins of the calcaneus. There is some soft tissue ulceration of the plantar surface of the heel, as well as marked thinning of the subcutaneous fat overlying the calcaneal tuberosity. There is considerable edema of the plantar surface subcutaneous fat. There is also edema of the subcutaneous fat of the lateral and medial ankle. No focal discrete fluid collection to suggest drainable abscess demonstrated. Impression: Evidence of ulceration overlying the calcaneal tuberosity Soft tissue gas within the heel, as described. This may represent penetration the above, but is worrisome for infection with a gas-forming organism Abnormal signal within the posterior and mid calcaneus, highly suspicious for acute osteomyelitis (4) UTI (urinary tract infection) (5) Hyperkalemia (6) Leukocytosis (7) Altered mental status (8) Diabetes mellitus out of control (9) Acute on chronic renal failure (10) NSTEMI (non-ST elevated myocardial infarction) (11) High anion gap metabolic acidosis Joseph Alamo Apr 06, 2020 11:19
[2020-04-06 12:00] VITALS: BP 121/59
--- NOTE | 2020-04-06 15:03 | Anethesia Preoperative Eval ---
Anesthesia Pre-op PMH/ROS General Date of Evaluation: Apr 06, 2020 Time of Evaluation: 14:58 Anesthesiologist: Elmer ASA Score: ASA 4 Mallampati Score Class I : Soft palate, uvula, fauces, pillars visible Class II: Soft palate, uvula, fauces visible Class III: Soft palate, base of uvula visible Class IV: Only hard plate visible Mallampati Classification: Class III Surgeon: Ángela Diagnosis: L foot chronic wound Surgical Procedure: L foot I&D Anesthesia History: none Family History: no anesthesia problems Allergies: Coded Allergies: PENICILLINS (Verified Allergy, Unknown, 12/05/17) Medications: see eMAR Patient NPO?: Yes Past Medical History Cardiovascular: Reports: HTN, [place] - h/o Pulmonary: Denies: asthma, COPD, [place], other Gastrointestinal/Genitourinary: Reports: GERD, CRI Neurologic/Psychiatric: Reports: dementia, depression/anxiety, TIA; Denies: CVA, other Endocrine: Reports: DM - on insulin poorly controled, hypothyroidism; Denies: steroids, other HEENT: Denies: cataract (L), cataract (R), glaucoma, [place] M[place]AIN (L), TABLE MOUNTAIN (R), other Hematology/Immune: Reports: anemia - of chronic d-s; Denies: DVT, bleeding disorder, other Musculoskeletal/Integumentary: Reports: OA, other - multiple chronic wounds and pressure ulcers; Denies: RA, DJD, DDD, edema PMH Narrative: as above PSxH Narrative: see H&P Anesthesia Pre-op Phys. Exam Physician Exam Last Vital Signs Date Time Temp Pulse Resp B/P (MAP) Pulse Ox O2 Delivery O2 Flow Rate FiO2 04/06/20 12:00 98.2 90 19 121/59 (79) 98 04/06/20 09:00 Room Air 04/01/20 06:58 21 Constitutional: NAD Neurologic: CN 2-12 intact Cardiovascular: RRR, no M/R/G Respiratory: CTA Gastrointestinal: S/NT/ND Airway Exam Mallampati Score: Class II MO: limited Neck: stiff ROM: limited Teeth: missing Dentures: no upper, no lower Anesthesia Pre-op A/P Labs Hematology Test 04/06/20 05:30 White Blood Count 16.7 K/UL (4.8-10.8) H Red Blood Count 3.66 M/UL (4.20-5.40) L Hemoglobin 11.3 G/DL (12.0-16.0) L Hematocrit 35.1 % (37.0-47.0) L Mean Corpuscular Volume 96 FL (80-99) Mean Corpuscular Hemoglobin 30.7 PG (27.0-31.0) Mean Corpuscular Hemoglobin Concent 32.1 G/DL (32.0-36.0) Red Cell Distribution Width 13.0 % (11.6-14.8) Platelet Count 445 K/UL (150-450) Mean Platelet Volume 6.8 FL (6.5-10.1) Neutrophils (%) (Auto) 64.3 % (45.0-75.0) Lymphocytes (%) (Auto) 24.6 % (20.0-45.0) Monocytes (%) (Auto) 8.9 % (1.0-10.0) Eosinophils (%) (Auto) 1.3 % (0.0-3.0) Basophils (%) (Auto) 0.9 % (0.0-2.0) Chemistry Test 04/05/20 20:31 04/06/20 05:30 04/06/20 08:51 POC Whole Blood Glucose 258 MG/DL (74-106) H Pending Sodium Level 141 MMOL/L (136-145) Potassium Level 3.6 MMOL/L (3.5-5.1) Chloride Level 108 MMOL/L (98-107) H Carbon Dioxide Level 29 MMOL/L (21-32) Anion Gap 4 mmol/L (5-15) L Blood Urea Nitrogen 13 mg/dL (7-18) Creatinine 0.8 MG/DL (0.55-1.30) Estimat Glomerular Filtration Rate > 60 mL/min (>60) Glucose Level 59 MG/DL (74-106) L Calcium Level 7.9 MG/DL (8.5-10.1) L Magnesium Level 1.7 MG/DL (1.8-2.4) L Studies Pre-op Studies: EKG - SR Risk Assessment & Plan Assessment: ASA 4 Plan: GA with LMA Status Change Before Surgery: No Pre-Antibiotics Drug: as scheduled Johnny Payne MD Apr 06, 2020 15:03
[2020-04-06 16:00] VITALS: BP 112/51
--- NOTE | 2020-04-06 16:11 | Infectious Diseases Prog Note ---
Assessment/Plan Assessment/Plan ASSESSMENT AND PLAN: 1. e.coli uti, left heel/foot osteomyelitis on MRI/infected wound/gangrene, sepsis, fevers, leukocytosis mrsa colonization - zosyn and vancomycin - day # 6 - monitor labs, blood cultures negative, chest x-ray - negative - will need 6 weeks iv abx, picc line - debridement per surgery - communicated with primary and surgery 2. Hypertension, diabetes - continue treatment 3. Wounds. 4. Weakness. 5. Encephalopathy. 6. Allergic to penicillin, tolerates Zosyn. 7. Family history is noncontributory. 8. MAR was noted. 9. Case discussed with RN. 10. Continue treatment per primary consultants. Subjective Constitutional: Reports: fatigue; Denies: fever HEENT: Denies: congestion Respiratory: Denies: shortness of breath Cardiovascular: Denies: chest pain Gastrointestinal/Abdominal: Denies: nausea, vomiting, diarrhea Genitourinary: Reports: other - no alaniz Neurologic: Denies: headache Psychiatric: Reports: other - NA Skin: Denies: rash Hematologic: Denies: bleeding Musculoskeletal: Denies: pain Allergies: Coded Allergies: PENICILLINS (Verified Allergy, Unknown, 12/05/17) Objective Last 24 Hour Vital Signs Date Time Temp Pulse Resp B/P (MAP) Pulse Ox O2 Delivery O2 Flow Rate FiO2 04/06/20 12:00 98.2 90 19 121/59 (79) 98 04/06/20 09:00 Room Air 04/06/20 08:53 138/64 04/06/20 08:53 90 138/64 04/06/20 08:00 98.9 90 19 138/64 (88) 97 04/06/20 04:00 98.2 92 18 128/62 (84) 97 04/06/20 00:00 98.0 94 20 121/60 (80) 98 04/05/20 21:00 Room Air 04/05/20 20:00 96.8 92 20 125/58 (80) 99 Height (Feet): 5 Height (Inches): 6.00 Weight (Pounds): 135 General Appearance: no acute distress HEENT: normocephalic, atraumatic, anicteric Respiratory/Chest: lungs clear, normal breath sounds, no respiratory distress, no accessory muscle use Cardiovascular: normal rate, regular rhythm, no gallop/murmur, no JVD Abdomen: normal bowel sounds, soft, non tender, no organomegaly Genitourinary: other - no alaniz Extremities: other - left foot covered, pictures reviewed Skin: no rash 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 Within these limitations: No definite acute fracture is appreciated. Lisfranc alignment of the foot appears grossly maintained. There is a suspected ulceration underlying the heel with possible subcutaneous gas. Correlation with physical exam recommended as soft tissue infection is suspected. No discrete changes noted in the adjacent calcaneus to suggest acute osteomyelitis however more sensitive evaluation can be made with MRI. Chest x-ray - 03/31/20 - Procedure: XRAY Chest 1v Indication: Altered mental status, cough Technique: XRAY Chest 1v Comparison: 12/05/2017 Findings: Heart size and mediastinal contours stable. There is no definite focal airspace consolidation. Some peribronchial thickening is seen. No pleural effusion or pneumothorax. No acute osseous abnormality. IMPRESSION: Peribronchial thickening which may suggest small airway disease/bronchitis. Correlate clinically. No focal consolidation. MRI left foot: Findings: Fairly numerous bubbles of soft tissue gas are seen within the subcutaneous fat and possibly the intrinsic musculature of the plantar surface of the heel. There is high STIR and decreased T1 signal within the calcaneus, and there is indistinctness of the inferior and posterior cortical margins of the calcaneus. There is some soft tissue ulceration of the plantar surface of the heel, as well as marked thinning of the subcutaneous fat overlying the calcaneal tuberosity. There is considerable edema of the plantar surface subcutaneous fat. There is also edema of the subcutaneous fat of the lateral and medial ankle. No focal discrete fluid collection to suggest drainable abscess demonstrated. Impression: Evidence of ulceration overlying the calcaneal tuberosity Soft tissue gas within the heel, as described. This may represent penetration the above, but is worrisome for infection with a gas-forming organism Abnormal signal within the posterior and mid calcaneus, highly suspicious for acute osteomyelitis Microbiology Date/Time Source Procedure Growth Status 04/03/20 18:02 Nose MRSA Culture - Final Staphylococcus Aureus - Mrsa Complete 03/31/20 16:51 Urine,Clean Catch Urine Culture - Final Escherichia Coli Complete 03/31/20 14:55 Blood Blood Culture - Final NO GROWTH AFTER 5 DAYS Complete Microbiology Date/Time Source Procedure Growth Status 04/03/20 18:02 Nose MRSA Culture - Final Staphylococcus Aureus - Mrsa Complete Laboratory Tests Test 04/05/20 20:31 04/06/20 05:30 04/06/20 08:51 POC Whole Blood Glucose 258 MG/DL (74-106) H Pending White Blood Count 16.7 K/UL (4.8-10.8) H Red Blood Count 3.66 M/UL (4.20-5.40) L Hemoglobin 11.3 G/DL (12.0-16.0) L Hematocrit 35.1 % (37.0-47.0) L Mean Corpuscular Volume 96 FL (80-99) Mean Corpuscular Hemoglobin 30.7 PG (27.0-31.0) Mean Corpuscular Hemoglobin Concent 32.1 G/DL (32.0-36.0) Red Cell Distribution Width 13.0 % (11.6-14.8) Platelet Count 445 K/UL (150-450) Mean Platelet Volume 6.8 FL (6.5-10.1) Neutrophils (%) (Auto) 64.3 % (45.0-75.0) Lymphocytes (%) (Auto) 24.6 % (20.0-45.0) Monocytes (%) (Auto) 8.9 % (1.0-10.0) Eosinophils (%) (Auto) 1.3 % (0.0-3.0) Basophils (%) (Auto) 0.9 % (0.0-2.0) Sodium Level 141 MMOL/L (136-145) Potassium Level 3.6 MMOL/L (3.5-5.1) Chloride Level 108 MMOL/L (98-107) H Carbon Dioxide Level 29 MMOL/L (21-32) Anion Gap 4 mmol/L (5-15) L Blood Urea Nitrogen 13 mg/dL (7-18) Creatinine 0.8 MG/DL (0.55-1.30) Estimat Glomerular Filtration Rate > 60 mL/min (>60) Glucose Level 59 MG/DL (74-106) L Calcium Level 7.9 MG/DL (8.5-10.1) L Magnesium Level 1.7 MG/DL (1.8-2.4) L Current Medications Medications (Trade) Dose Ordered Sig/Enrike Route PRN Reason Start Time Stop Time Status Last Admin Dose Admin Acetaminophen (Tylenol) 650 mg Q4H PRN ORAL Temp >100.5 03/31/20 19:00 04/30/20 18:59 04/01/20 13:05 Acetaminophen (Tylenol) 650 mg Q4H PRN ORAL Mild Pain (Pain Scale 1-3) 03/31/20 19:00 04/30/20 18:59 Al Hydroxide/Mg Hydroxide (Mylanta II) 30 ml Q6H PRN ORAL dyspepsia 03/31/20 19:00 04/30/20 18:59 Amlodipine Besylate (Norvasc) 5 mg DAILY ORAL 04/01/20 09:00 05/01/20 08:59 04/06/20 08:53 Aspirin (ASA) 81 mg DAILY ORAL 04/01/20 09:00 05/16/20 08:59 04/06/20 08:53 Atorvastatin Calcium (Lipitor) 80 mg BEDTIME ORAL 03/31/20 21:00 06/29/20 20:59 04/05/20 21:26 Benazepril HCl (Lotensin) 40 mg DAILY ORAL 04/01/20 09:00 05/01/20 08:59 04/06/20 08:53 Dextrose (Dextrose 50%) 25 ml Q30M PRN IV Hypoglycemia 03/31/20 20:30 06/29/20 20:29 04/06/20 06:30 Dextrose (Dextrose 50%) 50 ml Q30M PRN IV Hypoglycemia 03/31/20 20:30 06/29/20 20:29 Enoxaparin Sodium (Lovenox) 40 mg Q24H SUBQ 03/31/20 21:00 06/29/20 20:59 04/05/20 21:23 Gadobutrol (Gadavist) 7.5 mmol NOW PRN IV Radiology Procedure 04/02/20 16:15 04/06/20 16:14 Insulin Aspart (NovoLOG) BEFORE MEALS AND HS SUBQ 03/31/20 21:00 06/29/20 20:59 04/06/20 12:16 Insulin Aspart (NovoLOG) 9 units NOVOTIAC SUBQ 04/05/20 11:50 07/02/20 11:49 04/05/20 19:18 Insulin Detemir (Levemir) 6 units DAILY SUBQ 04/05/20 09:00 07/04/20 08:59 04/05/20 09:40 Insulin Detemir (Levemir) 15 units QHS SUBQ 04/04/20 21:00 06/29/20 21:59 04/05/20 21:24 Magnesium Hydroxide (Mom) 30 ml HSPRN PRN ORAL Constipation 03/31/20 19:00 04/30/20 18:59 Ondansetron HCl (Zofran) 4 mg Q6H PRN IVP Nausea & Vomiting 03/31/20 19:00 04/30/20 18:59 Piperacillin Sod/ Tazobactam Sod 3.375 gm/Sodium Chloride 110 ml @ 27.5 mls/hr Q8HR IVPB 03/31/20 22:00 04/07/20 21:59 04/06/20 13:46 Sodium Hypochlorite (Dakin's Quarter Strength) 1 applic DAILY TOPIC 04/03/20 09:00 05/03/20 08:59 04/06/20 09:01 Vancomycin HCl (Vanco pharmacy to dose) 1 ea DAILY PRN MISC Per rx protocol 03/31/20 19:15 04/30/20 19:14 Vancomycin HCl 1 gm/Dextrose 275 ml @ 183.708 mls/hr Q12H IVPB 04/03/20 01:00 04/08/20 00:59 04/06/20 12:15 Elyse Leung MD Apr 06, 2020 16:11
--- NOTE | 2020-04-06 17:33 | Neurology Progress Note ---
Interim History Interim History Interim History no new deficits Objective Physical Exam Last Vital Signs Date Time Temp Pulse Resp B/P (MAP) Pulse Ox O2 Delivery O2 Flow Rate FiO2 04/06/20 16:00 97.8 95 19 112/51 (71) 98 04/06/20 09:00 Room Air 04/01/20 06:58 21 Laboratory Tests Test 04/05/20 20:31 04/06/20 05:28 04/06/20 05:30 04/06/20 05:34 POC Whole Blood Glucose 258 MG/DL (74-106) H 52 MG/DL (74-106) L 45 MG/DL (74-106) L White Blood Count 16.7 K/UL (4.8-10.8) H Red Blood Count 3.66 M/UL (4.20-5.40) L Hemoglobin 11.3 G/DL (12.0-16.0) L Hematocrit 35.1 % (37.0-47.0) L Mean Corpuscular Volume 96 FL (80-99) Mean Corpuscular Hemoglobin 30.7 PG (27.0-31.0) Mean Corpuscular Hemoglobin Concent 32.1 G/DL (32.0-36.0) Red Cell Distribution Width 13.0 % (11.6-14.8) Platelet Count 445 K/UL (150-450) Mean Platelet Volume 6.8 FL (6.5-10.1) Neutrophils (%) (Auto) 64.3 % (45.0-75.0) Lymphocytes (%) (Auto) 24.6 % (20.0-45.0) Monocytes (%) (Auto) 8.9 % (1.0-10.0) Eosinophils (%) (Auto) 1.3 % (0.0-3.0) Basophils (%) (Auto) 0.9 % (0.0-2.0) Sodium Level 141 MMOL/L (136-145) Potassium Level 3.6 MMOL/L (3.5-5.1) Chloride Level 108 MMOL/L (98-107) H Carbon Dioxide Level 29 MMOL/L (21-32) Anion Gap 4 mmol/L (5-15) L Blood Urea Nitrogen 13 mg/dL (7-18) Creatinine 0.8 MG/DL (0.55-1.30) Estimat Glomerular Filtration Rate > 60 mL/min (>60) Glucose Level 59 MG/DL (74-106) L Calcium Level 7.9 MG/DL (8.5-10.1) L Magnesium Level 1.7 MG/DL (1.8-2.4) L Test 04/06/20 05:54 04/06/20 05:55 04/06/20 06:19 04/06/20 06:53 POC Whole Blood Glucose 46 MG/DL (74-106) L 52 MG/DL (74-106) L Pending 123 MG/DL (74-106) H Test 04/06/20 08:51 04/06/20 11:34 04/06/20 17:13 POC Whole Blood Glucose Pending 210 MG/DL (74-106) H 349 MG/DL (74-106) H General: well nourished Head: normocophalic Neck: no rigidity Neurologic Exam Mental Status: awake Objective confused, follows midline oriened to self LE weakness and numbness Impression/Recommendations Problems: (1) Sepsis (2) UTI (urinary tract infection) (3) Hyperkalemia (4) Leukocytosis (5) Altered mental status (6) Diabetes mellitus out of control (7) Acute on chronic renal failure (8) NSTEMI (non-ST elevated myocardial infarction) (9) High anion gap metabolic acidosis (10) Sacral decubitus ulcer (11) Decubitus ulcer of heel Diagnostic Impression acute encephalopathy, likely metabolic, fluctuating. LE weakness Cellulitis. Diabetes Delirium precautions ordered Cont atb PT as able Thee Lee MD Apr 06, 2020 17:33
--- NOTE | 2020-04-06 17:50 | Consultation ---
History of Present Illness General Date patient seen: Apr 06, 2020 Time patient seen: 13:15 Chief Complaint: Altered Mental Status Referring physician: Dr. Veras Reason for Consultation: ams Present Illness HPI S: Pt seen bedside for LLE infected heel ulcer. Pt appears NAD at bedside. Pt relates moderate pain to LLE. Allergies: Coded Allergies: PENICILLINS (Verified Allergy, Unknown, 12/05/17) Medication History Scheduled Amlodipine Besylate* (Amlodipine Besylate*), 5 MG ORAL DAILY, (Reported) Aspirin* (Aspirin*), 81 MG ORAL DAILY, (Reported) Atorvastatin Calcium* (Lipitor*), 80 MG ORAL BEDTIME, (Reported) Benazepril Hcl* (Benazepril Hcl*), 40 MG ORAL DAILY, (Reported) Insulin Glargine (Lantus), 20 UNITS SUBQ QHS, (Reported) Insulin Lispro (Humalog), 4 UNITS SUBQ THREE TIMES A DAY, (Reported) Metformin Hcl* (Metformin Hcl*), 500 MG ORAL TWICE A DAY, (Reported) Discontinued Medications Insulin Lispro (Humalog), 8 SUBQ BREAKFAST,LUNCH, (Reported) Discontinued Reason: Medication dose changed Patient History Healthcare decision maker Resuscitation status Advanced Directive on File Physical Exam Physical Exam Narrative Focused LLE Exam: Derm: Left heel necrotic tissue noted. (+) mal-odor. (+) Increased edema and erythema noted. Lateral midfoot blister noted. Vasc: +1/4 DP/PT pulses. Neuro: SILT diminished. MSK: MS/ROM diminished. Pt bed bound Last 24 Hour Vital Signs Date Time Temp Pulse Resp B/P (MAP) Pulse Ox O2 Delivery O2 Flow Rate FiO2 04/06/20 16:00 97.8 95 19 112/51 (71) 98 04/06/20 12:00 98.2 90 19 121/59 (79) 98 04/06/20 09:00 Room Air 04/06/20 08:53 138/64 04/06/20 08:53 90 138/64 04/06/20 08:00 98.9 90 19 138/64 (88) 97 04/06/20 04:00 98.2 92 18 128/62 (84) 97 04/06/20 00:00 98.0 94 20 121/60 (80) 98 04/05/20 21:00 Room Air 04/05/20 20:00 96.8 92 20 125/58 (80) 99 Intake and Output 04/05/20 04/06/20 19:00 07:00 Intake Total 960 ml 385.000 ml Output Total 400 ml 300 ml Balance 560 ml 85.000 ml Intake Oral 960 ml IV Total 385.000 ml Output Urine Total 400 ml 300 ml # Voids 3 # Bowel Movements 4 Laboratory Tests Test 04/05/20 20:31 04/06/20 05:28 04/06/20 05:30 04/06/20 05:34 POC Whole Blood Glucose 258 MG/DL (74-106) H 52 MG/DL (74-106) L 45 MG/DL (74-106) L White Blood Count 16.7 K/UL (4.8-10.8) H Red Blood Count 3.66 M/UL (4.20-5.40) L Hemoglobin 11.3 G/DL (12.0-16.0) L Hematocrit 35.1 % (37.0-47.0) L Mean Corpuscular Volume 96 FL (80-99) Mean Corpuscular Hemoglobin 30.7 PG (27.0-31.0) Mean Corpuscular Hemoglobin Concent 32.1 G/DL (32.0-36.0) Red Cell Distribution Width 13.0 % (11.6-14.8) Platelet Count 445 K/UL (150-450) Mean Platelet Volume 6.8 FL (6.5-10.1) Neutrophils (%) (Auto) 64.3 % (45.0-75.0) Lymphocytes (%) (Auto) 24.6 % (20.0-45.0) Monocytes (%) (Auto) 8.9 % (1.0-10.0) Eosinophils (%) (Auto) 1.3 % (0.0-3.0) Basophils (%) (Auto) 0.9 % (0.0-2.0) Sodium Level 141 MMOL/L (136-145) Potassium Level 3.6 MMOL/L (3.5-5.1) Chloride Level 108 MMOL/L (98-107) H Carbon Dioxide Level 29 MMOL/L (21-32) Anion Gap 4 mmol/L (5-15) L Blood Urea Nitrogen 13 mg/dL (7-18) Creatinine 0.8 MG/DL (0.55-1.30) Estimat Glomerular Filtration Rate > 60 mL/min (>60) Glucose Level 59 MG/DL (74-106) L Calcium Level 7.9 MG/DL (8.5-10.1) L Magnesium Level 1.7 MG/DL (1.8-2.4) L Test 04/06/20 05:54 04/06/20 05:55 04/06/20 06:19 04/06/20 06:53 POC Whole Blood Glucose 46 MG/DL (74-106) L 52 MG/DL (74-106) L Pending 123 MG/DL (74-106) H Test 04/06/20 08:51 04/06/20 11:34 04/06/20 17:13 POC Whole Blood Glucose Pending 210 MG/DL (74-106) H 349 MG/DL (74-106) H Height (Feet): 5 Height (Inches): 6.00 Weight (Pounds): 135 Medications Current Medications Medications (Trade) Dose Ordered Sig/Enrike Route PRN Reason Start Time Stop Time Status Last Admin Dose Admin Acetaminophen (Tylenol) 650 mg Q4H PRN ORAL Temp >100.5 03/31/20 19:00 04/30/20 18:59 04/01/20 13:05 Acetaminophen (Tylenol) 650 mg Q4H PRN ORAL Mild Pain (Pain Scale 1-3) 03/31/20 19:00 04/30/20 18:59 Al Hydroxide/Mg Hydroxide (Mylanta II) 30 ml Q6H PRN ORAL dyspepsia 03/31/20 19:00 04/30/20 18:59 Amlodipine Besylate (Norvasc) 5 mg DAILY ORAL 04/01/20 09:00 05/01/20 08:59 04/06/20 08:53 Aspirin (ASA) 81 mg DAILY ORAL 04/01/20 09:00 05/16/20 08:59 04/06/20 08:53 Atorvastatin Calcium (Lipitor) 80 mg BEDTIME ORAL 03/31/20 21:00 06/29/20 20:59 04/05/20 21:26 Benazepril HCl (Lotensin) 40 mg DAILY ORAL 04/01/20 09:00 05/01/20 08:59 04/06/20 08:53 Dextrose (Dextrose 50%) 25 ml Q30M PRN IV Hypoglycemia 03/31/20 20:30 06/29/20 20:29 04/06/20 06:30 Dextrose (Dextrose 50%) 50 ml Q30M PRN IV Hypoglycemia 03/31/20 20:30 06/29/20 20:29 Enoxaparin Sodium (Lovenox) 40 mg Q24H SUBQ 03/31/20 21:00 06/29/20 20:59 04/05/20 21:23 Insulin Aspart (NovoLOG) BEFORE MEALS AND HS SUBQ 03/31/20 21:00 06/29/20 20:59 04/06/20 12:16 Insulin Aspart (NovoLOG) 9 units NOVOTIAC SUBQ 04/05/20 11:50 07/02/20 11:49 04/05/20 19:18 Insulin Detemir (Levemir) 6 units DAILY SUBQ 04/05/20 09:00 07/04/20 08:59 04/05/20 09:40 Insulin Detemir (Levemir) 15 units QHS SUBQ 04/04/20 21:00 06/29/20 21:59 04/05/20 21:24 Magnesium Hydroxide (Mom) 30 ml HSPRN PRN ORAL Constipation 03/31/20 19:00 04/30/20 18:59 Ondansetron HCl (Zofran) 4 mg Q6H PRN IVP Nausea & Vomiting 03/31/20 19:00 04/30/20 18:59 Piperacillin Sod/ Tazobactam Sod 3.375 gm/Sodium Chloride 110 ml @ 27.5 mls/hr EVERY 8 HOURS IVPB 04/06/20 22:00 04/11/20 21:59 Sodium Hypochlorite (Dakin's Quarter Strength) 1 applic DAILY TOPIC 04/03/20 09:00 05/03/20 08:59 04/06/20 09:01 Vancomycin HCl (Vanco pharmacy to dose) 1 ea DAILY PRN MISC Per rx protocol 04/06/20 16:15 05/06/20 16:14 Vancomycin HCl 1 gm/Sodium Chloride 275 ml @ 183.708 mls/hr Q12HR@0100,1300 IVPB 04/07/20 01:00 04/12/20 00:59 Assessment/Plan Assessment/Plan: LLE infected heel ulcer with ST gas UTI DM NSTEMI Weakness Pt seen and evaluated. Discuss findings with patient. labs and chart reviewed. Pt scheduled for surgery tomorrow to Left heel ulceration, I&D with deep wound culture, bone culture and bone biopsy. NPO at midnight. AM labs CBC wdiff, PT, PTT, INR, CMP. Hold anti-coags for anticipation of surgery. Cont IV ABx. Please obtain surgical consent and clear patient for surgery. Podiatry will cont to monitor. Chintan Motta DPM Apr 06, 2020 17:50
[2020-04-06 20:00] VITALS: BP 115/58
[2020-04-06] MEDS: Atorvastatin 80mg tab ORAL SCH (21:31)
[2020-04-06] MEDS: Enoxaparin 40mg Inj SUBQ SCH (21:32)
--- NOTE | 2020-04-06 22:18 | General Progress Note ---
Subjective Date patient seen: Apr 06, 2020 ROS Limited/Unobtainable: No Allergies: Coded Allergies: PENICILLINS (Verified Allergy, Unknown, 12/05/17) Subjective Constitutional: Denies: no symptoms, chills, diaphoresis, fever, malaise, weakness, other HEENT: Denies: no symptoms, eye pain, blurred vision, tearing, double vision, ear pain, ear discharge, nose pain, nose congestion, throat pain, throat swelling, mouth pain, mouth swelling, other Cardiovascular: Denies: no symptoms, chest pain, edema, irregular heart rate, lightheadedness, palpitations, syncope, other Respiratory: Denies: no symptoms, cough, orthopnea, shortness of breath, SOB with excertion, SOB at rest, sputum, stridor, wheezing, other Gastrointestinal/Abdominal: Denies: no symptoms, abdomen distended, abdominal pain, black stools, tarry stools, blood in stool, constipated, diarrhea, difficulty swallowing, nausea, poor appetite, poor fluid intake, rectal bleeding, vomiting, other Genitourinary: Denies: no symptoms, burning, discharge, frequency, flank pain, hematuria, incontinence, pain, urgency, other Neurologic/Psychiatric: Denies: no symptoms, anxiety, depressed, emotional problems, headache, numbness, paresthesia, pre-existing deficit, seizure, tingling, tremors, weakness, other Endocrine: Denies: no symptoms, excessive sweating, flushing, intolerance to cold, intolerance to heat, increased hunger, increased thirst, increased urine, unexplained weight gain, unexplained weight loss, other Hematologic/Lymphatic: Denies: no symptoms, anemia, easy bleeding, easy bruising, other Interval events: no acute events overnight. Today patient reports pain in feet. Otherwise feeling ok. Denies fever, chills, chest pain, SOB, N/V. Objective Last 24 Hour Vital Signs Date Time Temp Pulse Resp B/P (MAP) Pulse Ox O2 Delivery O2 Flow Rate FiO2 04/06/20 20:00 98.0 101 19 115/58 (77) 98 04/06/20 16:00 97.8 95 19 112/51 (71) 98 04/06/20 12:00 98.2 90 19 121/59 (79) 98 04/06/20 09:00 Room Air 04/06/20 08:53 138/64 04/06/20 08:53 90 138/64 04/06/20 08:00 98.9 90 19 138/64 (88) 97 04/06/20 04:00 98.2 92 18 128/62 (84) 97 04/06/20 00:00 98.0 94 20 121/60 (80) 98 Intake and Output 04/05/20 04/06/20 19:00 07:00 Intake Total 960 ml 385.000 ml Output Total 400 ml 300 ml Balance 560 ml 85.000 ml Intake Oral 960 ml IV Total 385.000 ml Output Urine Total 400 ml 300 ml # Voids 3 # Bowel Movements 4 Laboratory Tests 04/06/20 05:28: POC Whole Blood Glucose 52L 04/06/20 05:30: White Blood Count 16.7H, Red Blood Count 3.66L, Hemoglobin 11.3L, Hematocrit 35.1L, Mean Corpuscular Volume 96, Mean Corpuscular Hemoglobin 30.7, Mean Corpuscular Hemoglobin Concent 32.1, Red Cell Distribution Width 13.0, Platelet Count 445, Mean Platelet Volume 6.8, Neutrophils (%) (Auto) 64.3, Lymphocytes (%) (Auto) 24.6, Monocytes (%) (Auto) 8.9, Eosinophils (%) (Auto) 1.3, Basophils (%) (Auto) 0.9, Sodium Level 141, Potassium Level 3.6, Chloride Level 108H, Carbon Dioxide Level 29, Anion Gap 4L, Blood Urea Nitrogen 13, Creatinine 0.8, Estimat Glomerular Filtration Rate > 60, Glucose Level 59L, Calcium Level 7.9L, Magnesium Level 1.7L 04/06/20 05:34: POC Whole Blood Glucose 45L 04/06/20 05:54: POC Whole Blood Glucose 46L 04/06/20 05:55: POC Whole Blood Glucose 52L 04/06/20 06:19: POC Whole Blood Glucose [Pending] 04/06/20 06:53: POC Whole Blood Glucose 123H 04/06/20 08:51: POC Whole Blood Glucose [Pending] 04/06/20 11:34: POC Whole Blood Glucose 210H 04/06/20 17:13: POC Whole Blood Glucose 349H 04/06/20 21:29: POC Whole Blood Glucose 381H Height (Feet): 5 Height (Inches): 6.00 Weight (Pounds): 135 General Appearance: WD/WN, no apparent distress EENT: normal ENT inspection Neck: non-tender, supple, normal inspection Cardiovascular: normal rate, regular rhythm, no gallop/murmur Respiratory/Chest: chest wall non-tender, lungs clear, normal breath sounds, no respiratory distress, no accessory muscle use Abdomen: normal bowel sounds, non tender, soft, no organomegaly Extremities: other - BLE wrapped in bandages Edema: no edema noted Arm (L), no edema noted Arm (R), no edema noted Leg (L), no edema noted Leg (R) 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 grossly normal, alert, normal mood/affect Skin: normal pigmentation, warm/dry Assessment/Plan Assessment/Plan: A: #Acute encephalopathy likely secondary to infectious etiology versus toxic metabolicstable #Sepsis with UTI, cellulitis, foot ulcer source, #Osteomyelitis of the left lower extremity #UTI #Left lower extremity heel ulcer w/ possible osteomyelitis #Left lower extremity cellulitis #Bilateral lower extremity venous dermatitis #Bilateral lower extremity edema #Lactic acidosis #Diabetes mellitus uncontrolled; A1c 11.2 #Essential hypertension P: continue broad spec antibiotics with vancomycin and Zosyn Follow-up urinary cultures, blood cultures, MRSA screen, wound culture Blood cultures negative for 72 hours MRSA screen positive Urine cultures positive for E. coli pansensitive -Inflammatory markers elevated MRI of left lower extremity concerning for osteomyelitis - Plan for wound debridement and bone biopsy/culture with podiatry in morning continue 6 units of Levemir in the day, continue 15 units at night We will increase premeal NovoLog from 5 to 9 units Continue moderate insulin sliding scale, reassess daily insulin requirements Blood glucose goal is 140-180 Hypoglycemia protocols Continue home Lipitor, amlodipine, lisinopril Wound consult Consult Dr. Alamo, general surgery, recs appreciated Consult Dr. Ernst, ID, recs appreciated Consult Dr. Lee, neurology, recs appreciated CM Code: Full, will need to discuss further with family or patient as when she gets better Diet: Diabetic Fluids: None DVT prophylaxis: Lovenox 40 mg daily Dispo: Pending debridement: DC to SNF Time spent on this encounter was 36 minutes which included 22 minutes of counseling and care coordination. I discussed with the nurse at bedside. Time of note may not reflect time patient was seen. Pattisapu,Carlton M.D. Apr 06, 2020 22:18
[2020-04-07] VITALS (13 sets, daily range): BP systolic 115–140; BP diastolic 51–68
[2020-04-07] MEDS: Vancomycin 1 GM in NS 275 ML IVPB SCH ×2 (02:18→12:06)
[2020-04-07 06:07] LABS: BASOPHILS % (AUTO) 0.5 % (0.0-2.0); EOSINOPHILS % (AUTO) 0.9 % (0.0-3.0); HEMATOCRIT 33.9 % (37.0-47.0); HEMOGLOBIN 10.5 G/DL (12.0-16.0); LYMPHOCYTES % (AUTO) 19.5 % (20.0-45.0); MEAN CORPUSCULAR VOLUME 99 FL (80-99); NEUTROPHILS % (AUTO) 72.1 % (45.0-75.0); PLATELET COUNT 453 K/UL (150-450); RED BLOOD COUNT 3.41 M/UL (4.20-5.40); RED CELL DISTRIBUTION WIDTH 13.8 % (11.6-14.8); WHITE BLOOD COUNT 13.9 K/UL (4.8-10.8)
[2020-04-07] MEDS: Piperacillin/Tazobactam 3.375 GM in NS 110 ML IVPB SCH ×3 (06:12→21:24)
[2020-04-07 06:27] LABS: ALBUMIN 1.4 G/DL (3.4-5.0); ALBUMIN/GLOBULIN RATIO 0.3 (1.0-2.7); BILIRUBIN,TOTAL 0.4 MG/DL (0.2-1.0); CALCIUM 7.7 MG/DL (8.5-10.1); CREATININE 1.2 MG/DL (0.55-1.30); POTASSIUM 4.8 MMOL/L (3.5-5.1)
[2020-04-07] MEDS: NovoLOG Insulin Flexpen SUBQ SCH ×7 (06:27→21:22)
--- NOTE | 2020-04-07 06:42 | Hematology/Onc Progress Note ---
Assessment/Plan Assessment/Plan Meds; noted # Leukocytosis likely secondary to underlying diabetic ketoacidosis, rule out underlying infection. --> likely due to infected wounds, heel ulcerations --> ABX vanc/zosyn --> Peripheral smear, reviewed, hold off flow for now --> elev inflammatory markers --> WBC 35-->22-->18-->14 # Anemia due to underlying chronic disease. --> Continue to closely monitor for improvement. --> Anemia w/u has been reviewed. Will trend cbc daily. --> Hgb goal >7 -> hgb 12-->10.7 --> anemia panel reviewed before # Hyperkalemia. Given Kayexalate. --> Improved # Diabetic ketoacidosis. --> per before, improved # High anion gap acidosis. To be seen by primary team. --> covering, On insulin sliding scale. # Shortness of breath in past with dka # Dvt ppx --> lovenox sq The time the note was entered does not necessarily correspond to the time the patient was seen. Subjective HEENT: Denies: no symptoms, eye pain, blurred vision, tearing, double vision, ear pain, ear discharge, nose pain, nose congestion, throat pain, throat swelling, mouth pain, mouth swelling, other Cardiovascular: Denies: no symptoms, chest pain, edema, irregular heart rate, lightheadedness, palpitations, syncope, other Gastrointestinal/Abdominal: Denies: no symptoms, abdomen distended, abdominal pain, black stools, tarry stools, blood in stool, constipated, diarrhea, difficulty swallowing, nausea, poor appetite, poor fluid intake, rectal bleeding, vomiting, other Genitourinary: Denies: no symptoms, burning, discharge, frequency, flank pain, hematuria, incontinence, pain, urgency, other Neurologic/Psychiatric: Denies: no symptoms, anxiety, depressed, emotional problems, headache, numbness, paresthesia, pre-existing deficit, seizure, tingling, tremors, weakness, other Endocrine: Denies: no symptoms, excessive sweating, flushing, intolerance to cold, intolerance to heat, increased hunger, increased thirst, increased urine, unexplained weight gain, unexplained weight loss, other Hematologic/Lymphatic: Denies: no symptoms, anemia, easy bleeding, easy bruising, adenopathy, other Allergies: Coded Allergies: PENICILLINS (Verified Allergy, Unknown, 12/05/17) Subjective 04/04 labs reviewed, meds noted, no bleeding, is on vanc/zosyn, wbc better 04/05 is on abx zosyn/vanc, labs noted, with facial grimace, no complaints 04/06 labs reviewed, improved, meds noted on abx 04/07 left heel ulceration surgery today, no bleeding, meds reviewed Objective Objective Current Medications Medications (Trade) Dose Ordered Sig/Enrike Route PRN Reason Start Time Stop Time Status Last Admin Dose Admin Acetaminophen (Tylenol) 650 mg Q4H PRN ORAL Temp >100.5 03/31/20 19:00 04/30/20 18:59 04/01/20 13:05 Acetaminophen (Tylenol) 650 mg Q4H PRN ORAL Mild Pain (Pain Scale 1-3) 03/31/20 19:00 04/30/20 18:59 Al Hydroxide/Mg Hydroxide (Mylanta II) 30 ml Q6H PRN ORAL dyspepsia 03/31/20 19:00 04/30/20 18:59 Amlodipine Besylate (Norvasc) 5 mg DAILY ORAL 04/01/20 09:00 05/01/20 08:59 04/06/20 08:53 Aspirin (ASA) 81 mg DAILY ORAL 04/01/20 09:00 05/16/20 08:59 04/06/20 08:53 Atorvastatin Calcium (Lipitor) 80 mg BEDTIME ORAL 03/31/20 21:00 06/29/20 20:59 04/06/20 21:31 Benazepril HCl (Lotensin) 40 mg DAILY ORAL 04/01/20 09:00 05/01/20 08:59 04/06/20 08:53 Dextrose (Dextrose 50%) 25 ml Q30M PRN IV Hypoglycemia 03/31/20 20:30 06/29/20 20:29 04/06/20 06:30 Dextrose (Dextrose 50%) 50 ml Q30M PRN IV Hypoglycemia 03/31/20 20:30 06/29/20 20:29 Enoxaparin Sodium (Lovenox) 40 mg Q24H SUBQ 03/31/20 21:00 06/29/20 20:59 04/06/20 21:32 Insulin Aspart (NovoLOG) BEFORE MEALS AND HS SUBQ 03/31/20 21:00 06/29/20 20:59 04/07/20 06:33 Insulin Aspart (NovoLOG) 9 units NOVOTIAC SUBQ 04/05/20 11:50 07/02/20 11:49 04/06/20 17:37 Insulin Detemir (Levemir) 6 units DAILY SUBQ 04/05/20 09:00 07/04/20 08:59 04/05/20 09:40 Insulin Detemir (Levemir) 15 units QHS SUBQ 04/04/20 21:00 06/29/20 21:59 04/06/20 21:33 Magnesium Hydroxide (Mom) 30 ml HSPRN PRN ORAL Constipation 03/31/20 19:00 04/30/20 18:59 Ondansetron HCl (Zofran) 4 mg Q6H PRN IVP Nausea & Vomiting 03/31/20 19:00 04/30/20 18:59 Piperacillin Sod/ Tazobactam Sod 3.375 gm/Sodium Chloride 110 ml @ 27.5 mls/hr EVERY 8 HOURS IVPB 04/06/20 22:00 04/11/20 21:59 04/07/20 06:12 Sodium Hypochlorite (Dakin's Quarter Strength) 1 applic DAILY TOPIC 04/03/20 09:00 05/03/20 08:59 04/06/20 09:01 Vancomycin HCl (Vanco pharmacy to dose) 1 ea DAILY PRN MISC Per rx protocol 04/06/20 16:15 05/06/20 16:14 Vancomycin HCl 1 gm/Sodium Chloride 275 ml @ 183.708 mls/hr Q12HR@0100,1300 IVPB 04/07/20 01:00 04/12/20 00:59 04/07/20 02:18 Last 24 Hour Vital Signs Date Time Temp Pulse Resp B/P (MAP) Pulse Ox O2 Delivery O2 Flow Rate FiO2 04/07/20 04:00 98.2 98 18 129/65 (86) 99 04/07/20 00:00 98.2 106 19 140/64 (89) 95 04/06/20 21:00 Room Air 04/06/20 20:00 98.0 101 19 115/58 (77) 98 04/06/20 16:00 97.8 95 19 112/51 (71) 98 04/06/20 12:00 98.2 90 19 121/59 (79) 98 04/06/20 09:00 Room Air 04/06/20 08:53 138/64 04/06/20 08:53 90 138/64 04/06/20 08:00 98.9 90 19 138/64 (88) 97 04/06/20 04:00 98.2 92 18 128/62 (84) 97 04/06/20 00:00 98.0 94 20 121/60 (80) 98 04/05/20 21:00 Room Air 04/05/20 20:00 96.8 92 20 125/58 (80) 99 04/05/20 16:00 97.8 94 20 121/61 (81) 96 04/05/20 14:30 98 18 123/57 99 04/05/20 14:00 98 18 123/57 99 04/05/20 12:00 98.2 92 18 128/62 (84) 97 04/05/20 09:40 123/57 04/05/20 09:40 98 123/57 04/05/20 09:00 Room Air 04/05/20 08:00 97.8 98 18 123/57 (79) 99 Intake and Output 04/06/20 04/07/20 19:00 07:00 Intake Total 1004.916 ml 885.000 ml Output Total 300 ml 1000 ml Balance 704.916 ml -115.000 ml IV Total 504.916 ml 385.000 ml Other 500 ml 500 ml Output Urine Total 300 ml 1000 ml # Voids 3 # Bowel Movements 3 Labs Test 04/04/20 06:47 04/04/20 11:23 04/04/20 12:20 04/04/20 16:59 Vancomycin Level Trough 18.5 ug/mL (5.0-12.0) POC Whole Blood Glucose 371 MG/DL (74-106) Test 04/05/20 05:20 04/05/20 12:13 04/05/20 17:25 04/05/20 20:31 White Blood Count 16.1 K/UL (4.8-10.8) Red Blood Count 3.26 M/UL (4.20-5.40) Hemoglobin 10.1 G/DL (12.0-16.0) Hematocrit 31.2 % (37.0-47.0) Mean Corpuscular Volume 95 FL (80-99) Mean Corpuscular Hemoglobin 30.9 PG (27.0-31.0) Mean Corpuscular Hemoglobin Concent 32.4 G/DL (32.0-36.0) Red Cell Distribution Width 12.7 % (11.6-14.8) Platelet Count 396 K/UL (150-450) Mean Platelet Volume 6.9 FL (6.5-10.1) Neutrophils (%) (Auto) 70.3 % (45.0-75.0) Lymphocytes (%) (Auto) 20.2 % (20.0-45.0) Monocytes (%) (Auto) 8.2 % (1.0-10.0) Eosinophils (%) (Auto) 0.8 % (0.0-3.0) Basophils (%) (Auto) 0.5 % (0.0-2.0) Erythrocyte Sedimentation Rate 99 MM/HR (0-30) Sodium Level 139 MMOL/L (136-145) Potassium Level 3.7 MMOL/L (3.5-5.1) Chloride Level 107 MMOL/L (98-107) Carbon Dioxide Level 26 MMOL/L (21-32) Blood Urea Nitrogen 9 mg/dL (7-18) Creatinine 0.8 MG/DL (0.55-1.30) Estimat Glomerular Filtration Rate > 60 mL/min (>60) Glucose Level 153 MG/DL (74-106) Calcium Level 7.6 MG/DL (8.5-10.1) Magnesium Level 1.4 MG/DL (1.8-2.4) POC Whole Blood Glucose 310 MG/DL (74-106) 218 MG/DL (74-106) 258 MG/DL (74-106) Test 04/06/20 05:28 04/06/20 05:30 04/06/20 05:34 04/06/20 05:54 POC Whole Blood Glucose 52 MG/DL (74-106) 45 MG/DL (74-106) 46 MG/DL (74-106) White Blood Count 16.7 K/UL (4.8-10.8) Red Blood Count 3.66 M/UL (4.20-5.40) Hemoglobin 11.3 G/DL (12.0-16.0) Hematocrit 35.1 % (37.0-47.0) Mean Corpuscular Volume 96 FL (80-99) Mean Corpuscular Hemoglobin 30.7 PG (27.0-31.0) Mean Corpuscular Hemoglobin Concent 32.1 G/DL (32.0-36.0) Red Cell Distribution Width 13.0 % (11.6-14.8) Platelet Count 445 K/UL (150-450) Mean Platelet Volume 6.8 FL (6.5-10.1) Neutrophils (%) (Auto) 64.3 % (45.0-75.0) Lymphocytes (%) (Auto) 24.6 % (20.0-45.0) Monocytes (%) (Auto) 8.9 % (1.0-10.0) Eosinophils (%) (Auto) 1.3 % (0.0-3.0) Basophils (%) (Auto) 0.9 % (0.0-2.0) Sodium Level 141 MMOL/L (136-145) Potassium Level 3.6 MMOL/L (3.5-5.1) Chloride Level 108 MMOL/L (98-107) Carbon Dioxide Level 29 MMOL/L (21-32) Anion Gap 4 mmol/L (5-15) Blood Urea Nitrogen 13 mg/dL (7-18) Creatinine 0.8 MG/DL (0.55-1.30) Estimat Glomerular Filtration Rate > 60 mL/min (>60) Glucose Level 59 MG/DL (74-106) Calcium Level 7.9 MG/DL (8.5-10.1) Magnesium Level 1.7 MG/DL (1.8-2.4) Test 04/06/20 05:55 04/06/20 06:19 04/06/20 06:53 04/06/20 08:51 POC Whole Blood Glucose 52 MG/DL (74-106) 123 MG/DL (74-106) Test 04/06/20 11:34 04/06/20 17:13 04/06/20 21:29 04/07/20 00:20 POC Whole Blood Glucose 210 MG/DL (74-106) 349 MG/DL (74-106) 381 MG/DL (74-106) Vancomycin Level Trough 16.9 ug/mL (5.0-12.0) Test 04/07/20 04:30 04/07/20 05:59 White Blood Count 13.9 K/UL (4.8-10.8) Red Blood Count 3.41 M/UL (4.20-5.40) Hemoglobin 10.5 G/DL (12.0-16.0) Hematocrit 33.9 % (37.0-47.0) Mean Corpuscular Volume 99 FL (80-99) Mean Corpuscular Hemoglobin 30.8 PG (27.0-31.0) Mean Corpuscular Hemoglobin Concent 31.0 G/DL (32.0-36.0) Red Cell Distribution Width 13.8 % (11.6-14.8) Platelet Count 453 K/UL (150-450) Mean Platelet Volume 6.0 FL (6.5-10.1) Neutrophils (%) (Auto) 72.1 % (45.0-75.0) Lymphocytes (%) (Auto) 19.5 % (20.0-45.0) Monocytes (%) (Auto) 7.0 % (1.0-10.0) Eosinophils (%) (Auto) 0.9 % (0.0-3.0) Basophils (%) (Auto) 0.5 % (0.0-2.0) Sodium Level 138 MMOL/L (136-145) Potassium Level 4.8 MMOL/L (3.5-5.1) Chloride Level 104 MMOL/L (98-107) Carbon Dioxide Level 30 MMOL/L (21-32) Anion Gap 4 mmol/L (5-15) Blood Urea Nitrogen 26 mg/dL (7-18) Creatinine 1.2 MG/DL (0.55-1.30) Estimat Glomerular Filtration Rate 53.9 mL/min (>60) Glucose Level 425 MG/DL (74-106) Calcium Level 7.7 MG/DL (8.5-10.1) Total Bilirubin 0.4 MG/DL (0.2-1.0) Aspartate Amino Transf (AST/SGOT) 21 U/L (15-37) Alanine Aminotransferase (ALT/SGPT) 15 U/L (12-78) Alkaline Phosphatase 144 U/L (46-116) Total Protein 5.6 G/DL (6.4-8.2) Albumin 1.4 G/DL (3.4-5.0) Globulin 4.2 g/dL Albumin/Globulin Ratio 0.3 (1.0-2.7) POC Whole Blood Glucose 273 MG/DL (74-106) Height (Feet): 5 Height (Inches): 6.00 Weight (Pounds): 135 Objective Vitals: reviewed, normal General Appearance: no apparent distress, non-toxic, lethargic HEENT: bilateral eye normal inspection, bilateral eye PERRL Neck: full range of motion, supple/symm/no masses Resp: chest non-tender, lungs clear, normal breath sounds, speaking full sentences Cardiovascular: regular rate, rhythm, no edema Gastrointestinal: normal bowel sounds, non tender Rectal: deferred Genitourinary: normal inspection, no CVA tenderness Musculoskeletal: back normal, gait/station normal, non-tender Lymphatic: no adenopathy David De Jesus MD Apr 07, 2020 06:42
[2020-04-07] MEDS: Aspirin Baby 81mg ORAL SCH (08:20)
[2020-04-07] MEDS: Levemir Flexpen SUBQ SCH ×2 (08:22→21:23)
[2020-04-07] MEDS: Dakin's 0.125% Soln (Quarter Strength) 16oz TOPIC SCH (08:26)
[2020-04-07] MEDS ORDERED: Lidocaine 1% Plain 30 ml INJ ONE (08:46)
[2020-04-07] MEDS ORDERED: Lidocaine 2% MPF 5ml Vial INJ ONE (08:46)
[2020-04-07] MEDS ORDERED: Bacitracin 50000 Units Vial ONE (08:46)
[2020-04-07] MEDS ORDERED: fentaNYL 100 mcg/2 mL IV ONE (08:47)
[2020-04-07] MEDS ORDERED: Lidocaine 1% MPF 10mg/ml 5ml ONE (08:48)
[2020-04-07] MEDS ORDERED: Sterile Water Irrig 1000ml IRRIG ONE (09:00)
[2020-04-07] MEDS ORDERED: NS Irrig 1000ml ONE (09:00)
--- NOTE | 2020-04-07 09:06 | Neurology Progress Note ---
Interim History Interim History ROS Limited/Unobtainable: No Interim History no new deficits Objective Physical Exam Last Vital Signs Date Time Temp Pulse Resp B/P (MAP) Pulse Ox O2 Delivery O2 Flow Rate FiO2 04/07/20 08:22 77 115/60 04/07/20 08:00 98.2 18 97 04/06/20 21:00 Room Air 04/01/20 06:58 21 Laboratory Tests Test 04/06/20 11:34 04/06/20 17:13 04/06/20 21:29 04/07/20 00:20 POC Whole Blood Glucose 210 MG/DL (74-106) H 349 MG/DL (74-106) H 381 MG/DL (74-106) H Vancomycin Level Trough 16.9 ug/mL (5.0-12.0) H Test 04/07/20 04:30 04/07/20 05:59 White Blood Count 13.9 K/UL (4.8-10.8) H Red Blood Count 3.41 M/UL (4.20-5.40) L Hemoglobin 10.5 G/DL (12.0-16.0) L Hematocrit 33.9 % (37.0-47.0) L Mean Corpuscular Volume 99 FL (80-99) Mean Corpuscular Hemoglobin 30.8 PG (27.0-31.0) Mean Corpuscular Hemoglobin Concent 31.0 G/DL (32.0-36.0) L Red Cell Distribution Width 13.8 % (11.6-14.8) Platelet Count 453 K/UL (150-450) H Mean Platelet Volume 6.0 FL (6.5-10.1) L Neutrophils (%) (Auto) 72.1 % (45.0-75.0) Lymphocytes (%) (Auto) 19.5 % (20.0-45.0) L Monocytes (%) (Auto) 7.0 % (1.0-10.0) Eosinophils (%) (Auto) 0.9 % (0.0-3.0) Basophils (%) (Auto) 0.5 % (0.0-2.0) Sodium Level 138 MMOL/L (136-145) Potassium Level 4.8 MMOL/L (3.5-5.1) Chloride Level 104 MMOL/L (98-107) Carbon Dioxide Level 30 MMOL/L (21-32) Anion Gap 4 mmol/L (5-15) L Blood Urea Nitrogen 26 mg/dL (7-18) H Creatinine 1.2 MG/DL (0.55-1.30) Estimat Glomerular Filtration Rate 53.9 mL/min (>60) Glucose Level 425 MG/DL (74-106) #H Calcium Level 7.7 MG/DL (8.5-10.1) L Total Bilirubin 0.4 MG/DL (0.2-1.0) Aspartate Amino Transf (AST/SGOT) 21 U/L (15-37) Alanine Aminotransferase (ALT/SGPT) 15 U/L (12-78) Alkaline Phosphatase 144 U/L (46-116) H Total Protein 5.6 G/DL (6.4-8.2) L Albumin 1.4 G/DL (3.4-5.0) L Globulin 4.2 g/dL Albumin/Globulin Ratio 0.3 (1.0-2.7) L POC Whole Blood Glucose 273 MG/DL (74-106) H General: well nourished Head: normocophalic Neck: no rigidity Neurologic Exam Mental Status: awake Objective confused, follows midline oriened to self LE weakness and numbness Impression/Recommendations Problems: (1) Sepsis (2) UTI (urinary tract infection) (3) Hyperkalemia (4) Leukocytosis (5) Altered mental status (6) Diabetes mellitus out of control (7) Acute on chronic renal failure (8) NSTEMI (non-ST elevated myocardial infarction) (9) High anion gap metabolic acidosis (10) Sacral decubitus ulcer (11) Decubitus ulcer of heel Diagnostic Impression acute encephalopathy, likely metabolic, fluctuating. LE weakness Cellulitis. Diabetes Delirium precautions ordered Cont atb PT as able Thee Lee MD Apr 07, 2020 09:06
--- NOTE | 2020-04-07 09:12 | Pre-Procedure Note/Attestation ---
Pre-Procedure Note/Attestation Complete Prior to Procedure Planned Procedure: left Procedure Narrative: Left foot Heel excisional ulcer debridement, with removal of all non-viable tissue, deep wound culture, bone culture and bone biopsy. Indications for Procedure Pre-Operative Diagnosis: 1. Left foot deep abscess. 2. Left ulcer heel, level of muscle. 3. Left foot soft tissue gas infection. Attestation I attest that I discussed the nature of the procedure; its benefits; risks and complications; and alternatives (and the risks and benefits of such alternatives), prior to the procedure, with the patient (or the patient's legal service center representative). I attest that, if there was a reasonable possibility of needing a blood transfusion, the patient (or the patient's legal service center representative) was given the [place] [employer] standardized written summary, pursuant to the [place] Blood Safety Act ([place] Health and Safety Code # 1645, as amended). I attest that I re-evaluated the patient just prior to the surgery and that there has been no change in the patient's H&P, except as documented below: Chintan Motta DPM Apr 07, 2020 09:12
[2020-04-07] MEDS ORDERED: Hydromorphone 0.5mg/0.5ml inj IVP PRN (09:45)
[2020-04-07] MEDS ORDERED: DiphenhydrAMINE 50mg/ml Inj IVP PRN (09:45)
--- NOTE | 2020-04-07 10:06 | Operative Note - PDOC ---
Operative Note Operative Note Date of Operation/Procedure: Apr 07, 2020 Chief Complaint: Pain and infection Left foot. Pre-op Diagnosis: 1. Left foot deep abscess. 2. Left ulcer heel, level of muscle. 3. Left foot soft tissue gas infection. Procedure: 1. Left foot Incision and Drainage, removal of all non-viable tissue. 2. Left foot Deep Wound Culture, calcaneus. 3. Left foot Bone Culture, calcaneus. 4. Left foot Bone Biopsy, calcaneus. 5. Left foot excisional ulcer debridement, level of muscle. Post-op Diagnosis: Same as above. Post-op Diagnosis: same as pre-op Operative Findings: other - Infected Soft tissue and Bone. Surgeon: Dr. Ángela DPM Supervisor Telephone Answering Service: None. Additional Surgeons: None. Anesthesiologist: Johnny Guzman Anesthesia: general Specimen: yes - Left foot, deep wound culture, bone culture and bone biopsy. Complications: none Condition: stable Estimated Blood Loss: minimal Drains: none Implant(s) used?: No Indications for Procedure Infected Soft tissue and Bone. Description of Procedure See operative note for details. Chintan Motta DPM Apr 07, 2020 10:06
--- NOTE | 2020-04-07 10:13 | Immediate Post-Op Evaluation ---
Immediate Post-Op Evalulation Immediate Post-Op Evalulation Procedure: I&D with bone Bx L foot chronic wound Date of Evaluation: Apr 07, 2020 Time of Evaluation: 10:12 IV Fluids: 300 Blood Products: none Estimated Blood Loss: 50 Urinary Output: none Blood Pressure Systolic: 128 Blood Pressure Diastolic: 76 Pulse Rate: 86 Respiratory Rate: 22 O2 Sat by Pulse Oximetry: 99 Temperature (Fahrenheit): 97.8 Pain Score (1-10): 2 Nausea: No Vomiting: No Complications none Patient Status: reacts, patent, none Hydration Status: adequate Johnny Payne MD Apr 07, 2020 10:13
--- NOTE | 2020-04-07 10:47 | 48 Hour Post Anesthesia Eval ---
Post Anesthesia Evaluation Procedure: I&D with bone Bx L foot chronic wound Date of Evaluation: Apr 07, 2020 Time of Evaluation: 10:45 Blood Pressure Systolic: 126 0: 72 Pulse Rate: 82 Respiratory Rate: 20 Temperature (Fahrenheit): 97.6 O2 Sat by Pulse Oximetry: 99 Airway: patent Nausea: No Vomiting: No Pain Intensity: 2 Hydration Status: adequate Cardiopulmonary Status: stable Mental Status/LOC: patient returned to baseline Follow-up Care/Observations: n/a Post-Anesthesia Complications: none Follow-up care needed: N/A Johnny Payne MD Apr 07, 2020 10:46
[2020-04-07] MEDS ORDERED: Lidocaine 1% Plain 30 ml INJ PRN (12:30)
[2020-04-07] MEDS ORDERED: Heparin1,000 units/500ml Premix(Conc:2 units/ml) IV PRN (12:30)
--- NOTE | 2020-04-07 15:24 | Brief Operative Note ---
Immediate Post Operative Note Operative Note Pre-op Diagnosis: needs IV access Procedure: PICC Post-op Diagnosis: same as pre-op Surgeon: marco Anesthesia: local Specimen: none Complications: none Fluids: none Implant(s) used?: No Estuardo Fleming MD Apr 07, 2020 15:24
--- NOTE | 2020-04-07 15:29 | Operative Note - Dictated ---
DATE OF OPERATION: 04/07/2020 SURGEON: Chintan Motta DPM. SHOT MAN: None. ANESTHESIOLOGIST: Johnny Payne MD. PREOPERATIVE DIAGNOSES: 1. Left foot deep abscess. 2. Left foot acute osteomyelitis, calcaneus. 3. Left foot infected ulceration down to the level of muscle heel. 4. Left foot Proximal fifth metatarsal base ulceration down to muscle. POSTOPERATIVE DIAGNOSES: 1. Left foot deep abscess. 2. Left foot acute osteomyelitis, calcaneus. 3. Left foot infected ulceration down to the level of muscle heel. 4. Left foot Proximal fifth metatarsal base ulceration down to muscle. OPERATIONS: 1. Left foot incision and drainage with removal of all nonviable tissue. 2. Left foot deep wound culture, calcaneus. 3. Left foot bone culture, calcaneus. 4. Left foot bone biopsy, calcaneus. 5. Left foot excisional ulcer debridement of heel to the level of muscle. ANESTHESIA: General. ESTIMATED BLOOD LOSS: Less than 30 mL. MATERIALS: None. SPECIMENS: 1. Left foot deep wound culture, calcaneus. 2. Left foot bone culture, calcaneus. 3. Left foot bone biopsy, calcaneus. COMPLICATIONS: None. PROCEDURE IN DETAIL: The patient was seen in the holding room. The risks, benefits, complications, treatment options, and expected outcomes were discussed with the patient. The risks and potential complications of the problem and proposed treatment including but not limited to infection, nerve injury, vascular injury, persistent pain, potential skin necrosis, deep venous thrombosis, possible pulmonary embolus, and complications of anesthetics and surgery. The patient concurred with proposed plan and gave informed consent. The site of the surgery was preoperatively noted and marked on the left lower extremity. The patient was taken to the operating room and identified as Bhavna Barroso and procedure verified as left foot incision and drainage, removal of all nonviable tissue, deep bone culture, wound culture, and bone biopsy, excision of ulcer and debridement down to level muscle. A time-out was held and above information was confirmed. The patient was brought to the operating room table and placed on the operating room table in supine position. Left foot incision and drainage with removal of all nonviable tissue, deep wound culture, bone culture, bone biopsy, excision of ulcer and debridement down to the level of the muscle. The left lower leg, ankle, foot and muscle were scrubbed, prepped, and draped in usual aseptic manner. Attention was then directed to the left foot where an ulceration was noted down to the base of the fifth metatarsal. Upon negative expression, purulent drainage was noted to this ulceration. Next, two deep wound cultures were obtained and sent for microbiology, culture and sensitivity. Next, using a blade and rongeur, all nonviable tissues from the deep and superficial layers were then removed from this ulceration. Next, attention was then directed to the left heel where necrotic ulceration was noted down to the level of muscle. Using #10 blade and rongeur, all nonviable tissue were then removed from the deep and superficial layers. Upon negative expression, approximately 5 mL of purulence was expressed. Next, deep wound culture was obtained from left calcaneus and was sent for microbiology, culture and sensitivity. All remaining nonviable tissue was then removed. Next, using a Jamshidi needle, bone culture and bone biopsy separate specimens were obtained from the calcaneus. Bone biopsy was sent to pathology and bone culture was sent to microbiology. Next, using a sterile curette, debridement was performed down to the heel ulceration down to the level of muscle. Postdebridement bleeding was noted to be healthy. Next, left foot fifth metatarsal base ulceration and heel ulceration were then irrigated with normal saline. A Nemo, sterile Betadine dressing was then applied. Instrument, sponge, and needle counts were correct prior to the wound closure and after conclusion of the case. The patient tolerated the procedure well and was transferred to the PACU in awake and good condition. Chintan Motta DPM DR: DASH JOB#: [id number] CC: MIKEY
--- NOTE | 2020-04-07 16:52 | Diagnostic Imaging Report ---
Indications: Needs long-term IV access Technique: Ultrasound confirms patent compressible left basilic vein. Total sterile technique, including sterile probe cover and sterile gel, hat, mask, sterile gown, large sterile drape, and preparation with 2% chlorhexidine utilized. Local anesthesia with 1% lidocaine. Under real-time ultrasound guidance, puncture basilic vein using 21-gauge needle, documented and archived, passage 0.018 guidewire under direct fluoroscopy, which was used to determine appropriate catheter length, exchange for 4 Bruneian peel-away sheath. 4 Bruneian Bard dual-lumen power PICC cut to 36 cm. It was inserted through the peel-away sheath. Peel-away sheath and guidewire removed. Catheter fixed to the skin. Both catheter ports aspirated and flushed. Patient tolerated procedure well, without immediate complication. Digital radiograph documents satisfactory catheter tip position, at the cavoatrial junction. Total fluoroscopy time 12.6 seconds. Total dose area product 0.2613 mGym2 Total number of images: 1 Impression: Successful placement of left arm PICC under sonographic and fluoroscopic guidance, as described above.
--- NOTE | 2020-04-07 18:07 | Surgery Progress Note ---
Surgery Progress Note Subjective Additional Comments OR today with podiatry no n/v labs improved Objective Last 24 Hour Vital Signs Date Time Temp Pulse Resp B/P (MAP) Pulse Ox O2 Delivery O2 Flow Rate FiO2 04/07/20 16:00 97.3 95 19 132/68 (89) 100 04/07/20 12:00 98.0 94 20 118/60 (79) 97 04/07/20 10:55 97.9 89 18 121/53 100 Nasal Cannula 3 04/07/20 10:46 82 20 99 04/07/20 10:45 90 18 121/51 100 Nasal Cannula 3 04/07/20 10:33 96 18 124/56 100 Simple Mask 6 04/07/20 10:23 96 15 127/57 100 Simple Mask 6 04/07/20 10:13 96 18 127/60 100 Simple Mask 6 04/07/20 10:13 86 22 99 04/07/20 10:08 94 20 122/61 100 Simple Mask 6 04/07/20 10:03 97.8 90 22 130/62 100 Simple Mask 6 04/07/20 09:00 Room Air 04/07/20 08:22 77 115/60 04/07/20 08:21 115/60 04/07/20 08:00 98.2 77 18 115/60 (78) 97 04/07/20 04:00 98.2 98 18 129/65 (86) 99 04/07/20 00:00 98.2 106 19 140/64 (89) 95 04/06/20 21:00 Room Air 04/06/20 20:00 98.0 101 19 115/58 (77) 98 I&O Intake and Output 04/06/20 04/07/20 19:00 07:00 Intake Total 1004.916 ml 885.000 ml Output Total 300 ml 1000 ml Balance 704.916 ml -115.000 ml IV Total 504.916 ml 385.000 ml Other 500 ml 500 ml Output Urine Total 300 ml 1000 ml # Voids 3 # Bowel Movements 3 Dressing: saturated Cardiovascular: RSR Respiratory: decreased breath sounds Abdomen: soft, non-tender, present bowel sounds Extremities: edema, other Laboratory Tests Test 04/06/20 21:29 04/07/20 00:20 04/07/20 04:30 04/07/20 05:59 POC Whole Blood Glucose 381 MG/DL (74-106) H 273 MG/DL (74-106) H Vancomycin Level Trough 16.9 ug/mL (5.0-12.0) H White Blood Count 13.9 K/UL (4.8-10.8) H Red Blood Count 3.41 M/UL (4.20-5.40) L Hemoglobin 10.5 G/DL (12.0-16.0) L Hematocrit 33.9 % (37.0-47.0) L Mean Corpuscular Volume 99 FL (80-99) Mean Corpuscular Hemoglobin 30.8 PG (27.0-31.0) Mean Corpuscular Hemoglobin Concent 31.0 G/DL (32.0-36.0) L Red Cell Distribution Width 13.8 % (11.6-14.8) Platelet Count 453 K/UL (150-450) H Mean Platelet Volume 6.0 FL (6.5-10.1) L Neutrophils (%) (Auto) 72.1 % (45.0-75.0) Lymphocytes (%) (Auto) 19.5 % (20.0-45.0) L Monocytes (%) (Auto) 7.0 % (1.0-10.0) Eosinophils (%) (Auto) 0.9 % (0.0-3.0) Basophils (%) (Auto) 0.5 % (0.0-2.0) Sodium Level 138 MMOL/L (136-145) Potassium Level 4.8 MMOL/L (3.5-5.1) Chloride Level 104 MMOL/L (98-107) Carbon Dioxide Level 30 MMOL/L (21-32) Anion Gap 4 mmol/L (5-15) L Blood Urea Nitrogen 26 mg/dL (7-18) H Creatinine 1.2 MG/DL (0.55-1.30) Estimat Glomerular Filtration Rate 53.9 mL/min (>60) Glucose Level 425 MG/DL (74-106) #H Calcium Level 7.7 MG/DL (8.5-10.1) L Total Bilirubin 0.4 MG/DL (0.2-1.0) Aspartate Amino Transf (AST/SGOT) 21 U/L (15-37) Alanine Aminotransferase (ALT/SGPT) 15 U/L (12-78) Alkaline Phosphatase 144 U/L (46-116) H Total Protein 5.6 G/DL (6.4-8.2) L Albumin 1.4 G/DL (3.4-5.0) L Globulin 4.2 g/dL Albumin/Globulin Ratio 0.3 (1.0-2.7) L Test 04/07/20 11:23 04/07/20 16:37 POC Whole Blood Glucose 171 MG/DL (74-106) H 263 MG/DL (74-106) H Plan Problems: (1) Decubitus ulcer of heel Assessment & Plan: podiatry eval appreciated bibiana noted cont abx 1. Left foot incision and drainage with removal of all nonviable tissue. 2. Left foot deep wound culture, calcaneus. 3. Left foot bone culture, calcaneus. 4. Left foot bone biopsy, calcaneus. 5. Left foot excisional ulcer debridement of heel to the level of muscle. appreciate podiatry input cont dressings after drainage (2) Sacral decubitus ulcer (3) Sepsis Assessment & Plan: 69-year-old female multiple comorbidities presented with failure to thrive lethargic altered mental status noted to have significant leukocytosis greater than 30,000 lactic acidosis 2.3 abnormal labs A1c 11 identified to have draining bilateral heel unstageable decubitus ulcers multiple skin lesions on the lower extremities as well as a sacral decubitus ulcer as well. Patient is currently on antibiotics under work-up microbiology identified urine noted UTI. Imaging reviewed. Patient has been eating less recently but currently is eating at the bedside though does not look like she is taking much in. Treatment plan Wash sacral area daily with normal saline apply Thera honey followed by Optifoam dressing change daily and as needed saturation Wash bilateral heels daily with normal saline. Swab with Betadine unstageable necrotic eschar on bilateral heels and cover with Optifoam dressings. Change daily and as needed saturation Lower lower extremity ulcerations saw with Betadine cover with Optifoam dressing. Turn every 2 hours Offload pressure with pillows pillow on side as necessary as well as underneath calf to elevate heels Air soft mattress nutritional optimization continue IV antibiotics per infectious disease SACRUM- STAGE - UNSTAGEABLE PRESSURE ULCER MEASURES 6.0X13.0X0.2. WOUND BED WITH 80% SLOUGH AND 20% PINK GRANULATION TISSUE. NOTED FOUL ODOR RECOMMEND-CLEAN WITH SALINE. APPLY WET TO DRY DRESSINGS WITH DAKINS 0.25% DAKIN'S SOLUTION.COVER WITH OPTIFOAM DRESSING. REPLACE DRESSING DAILY. LEFT ISCHIUM-STAGE II PRESSURE ULCER MEASURES 4.5X0.5X0.2CM. PINK GRANULATION TISSUE NOTED. RECOMMEND- CLEAN WITH SALINE, PAT DRY. APPLY CALAZINE AND COVER WITH OPTIFOAM DRESSING. LEFT ANTERIOR LOW LEG-VENOUS ULCER MEASURES 8.0X2.6X0.2CM 100% YELLOW SLOUGH NOTED TO WOUND BED. RECOMMEND- CLEAN WITH SALINE, PA DRY. APPLY THERAHONEY. COVER WITH GAUZE AND SECURE WITH KERLIX. REPLACE DRESSING DAILY. LEFT HEEL- UNSTAGEABLE PRESSURE ULCER MEASURES 9.5X8.0X0.3CM. 100% MOIST BLACK ESCHAR. WITH STRONG FOUL ODOR. RECOMMEND- CLEAN WITH SALINE. APPLY WET TO DRY DRESSINGS WITH DAKINS 0.25% DAKIN'S SOLUTION. COVER WITH GAUZE, ABD PAD AND SECURE WITH KERLIX. REPLACE DAILY. RIGHT ANTERIOR LOW LEG-VENOUS ULCER MEASURES 2.5X3.0X0.2CM WITH PINK GRANULATION TISSUE. RIGHT ANTERIOR DISTAL LOW LEG -VENOUS ULCER MEASURES 1.5X0.2X0.1CM WITH PINK GRANULATION TISSUE. RECOMMEND-CLEAN WITH SALINE PAT DRY. APPLY XEROFORM GAUZE, GAUZE AND COVER WITH KERLIX. REPLACE DAILY RIGHT HEEL-DTI MEASURES 2.5X3.0CM. AREA DARK PURPLE IN COLOR AND BOGGY TO TOUCH. NO DRAINAGE NOTED. RECOMMEND- PAINT WITH CAVILON SKIN PROTECTOR, GAUZE AND WRAP WITH KERLIX. REPLACE DAILY. We will follow with recommendations thank you for letting participate patient's care Fairly numerous bubbles of soft tissue gas are seen within the subcutaneous fat and possibly the intrinsic musculature of the plantar surface of the heel. There is high STIR and decreased T1 signal within the calcaneus, and there is indistinctness of the inferior and posterior cortical margins of the calcaneus. There is some soft tissue ulceration of the plantar surface of the heel, as well as marked thinning of the subcutaneous fat overlying the calcaneal tuberosity. There is considerable edema of the plantar surface subcutaneous fat. There is also edema of the subcutaneous fat of the lateral and medial ankle. No focal discrete fluid collection to suggest drainable abscess demonstrated. Impression: Evidence of ulceration overlying the calcaneal tuberosity Soft tissue gas within the heel, as described. This may represent penetration the above, but is worrisome for infection with a gas-forming organism Abnormal signal within the posterior and mid calcaneus, highly suspicious for acute osteomyelitis (4) UTI (urinary tract infection) (5) Hyperkalemia (6) Leukocytosis (7) Altered mental status (8) Diabetes mellitus out of control (9) Acute on chronic renal failure (10) NSTEMI (non-ST elevated myocardial infarction) (11) High anion gap metabolic acidosis Joseph Alamo Apr 07, 2020 18:07
[2020-04-07] MEDS: Dyna-Hex 2% Top Sol 2oz TOPIC SCH (20:00)
[2020-04-07] MEDS: Atorvastatin 80mg tab ORAL SCH (21:20)
[2020-04-07] MEDS: Enoxaparin 40mg Inj SUBQ SCH (21:21)
--- NOTE | 2020-04-07 21:44 | General Progress Note ---
Subjective Date patient seen: Apr 07, 2020 ROS Limited/Unobtainable: No Allergies: Coded Allergies: PENICILLINS (Verified Allergy, Unknown, 12/05/17) Subjective Constitutional: Denies: no symptoms, chills, diaphoresis, fever, malaise, weakness, other HEENT: Denies: no symptoms, eye pain, blurred vision, tearing, double vision, ear pain, ear discharge, nose pain, nose congestion, throat pain, throat swelling, mouth pain, mouth swelling, other Cardiovascular: Denies: no symptoms, chest pain, edema, irregular heart rate, lightheadedness, palpitations, syncope, other Respiratory: Denies: no symptoms, cough, orthopnea, shortness of breath, SOB with excertion, SOB at rest, sputum, stridor, wheezing, other Gastrointestinal/Abdominal: Denies: no symptoms, abdomen distended, abdominal pain, black stools, tarry stools, blood in stool, constipated, diarrhea, difficulty swallowing, nausea, poor appetite, poor fluid intake, rectal bleeding, vomiting, other Genitourinary: Denies: no symptoms, burning, discharge, frequency, flank pain, hematuria, incontinence, pain, urgency, other Neurologic/Psychiatric: Denies: no symptoms, anxiety, depressed, emotional problems, headache, numbness, paresthesia, pre-existing deficit, seizure, tingling, tremors, weakness, other Endocrine: Denies: no symptoms, excessive sweating, flushing, intolerance to cold, intolerance to heat, increased hunger, increased thirst, increased urine, unexplained weight gain, unexplained weight loss, other Hematologic/Lymphatic: Denies: no symptoms, anemia, easy bleeding, easy bruising, other Interval events: patient went for debridement of LLE osteomyelitis this morning Today patient sleepy after procedure this morning. Reports pain in LLE. Denies fever, chills, chest pain, SOB, N/V. Objective Last 24 Hour Vital Signs Date Time Temp Pulse Resp B/P (MAP) Pulse Ox O2 Delivery O2 Flow Rate FiO2 04/07/20 20:00 97.9 104 19 140/59 (86) 98 04/07/20 16:00 97.3 95 19 132/68 (89) 100 04/07/20 12:00 98.0 94 20 118/60 (79) 97 04/07/20 10:55 97.9 89 18 121/53 100 Nasal Cannula 3 04/07/20 10:46 82 20 99 04/07/20 10:45 90 18 121/51 100 Nasal Cannula 3 04/07/20 10:33 96 18 124/56 100 Simple Mask 6 04/07/20 10:23 96 15 127/57 100 Simple Mask 6 04/07/20 10:13 96 18 127/60 100 Simple Mask 6 04/07/20 10:13 86 22 99 04/07/20 10:08 94 20 122/61 100 Simple Mask 6 04/07/20 10:03 97.8 90 22 130/62 100 Simple Mask 6 04/07/20 09:00 Room Air 04/07/20 08:22 77 115/60 04/07/20 08:21 115/60 04/07/20 08:00 98.2 77 18 115/60 (78) 97 04/07/20 04:00 98.2 98 18 129/65 (86) 99 04/07/20 00:00 98.2 106 19 140/64 (89) 95 Intake and Output 04/06/20 04/07/20 19:00 07:00 Intake Total 1004.916 ml 885.000 ml Output Total 300 ml 1000 ml Balance 704.916 ml -115.000 ml IV Total 504.916 ml 385.000 ml Other 500 ml 500 ml Output Urine Total 300 ml 1000 ml # Voids 3 # Bowel Movements 3 Laboratory Tests 04/07/20 00:20: Vancomycin Level Trough 16.9H 04/07/20 04:30: White Blood Count 13.9H, Red Blood Count 3.41L, Hemoglobin 10.5L, Hematocrit 33.9L, Mean Corpuscular Volume 99, Mean Corpuscular Hemoglobin 30.8, Mean Corpuscular Hemoglobin Concent 31.0L, Red Cell Distribution Width 13.8, Platelet Count 453H, Mean Platelet Volume 6.0L, Neutrophils (%) (Auto) 72.1, Lymphocytes (%) (Auto) 19.5L, Monocytes (%) (Auto) 7.0, Eosinophils (%) (Auto) 0.9, Baso phils (%) (Auto) 0.5, Sodium Level 138, Potassium Level 4.8, Chloride Level 104, Carbon Dioxide Level 30, Anion Gap 4L, Blood Urea Nitrogen 26H, Creatinine 1.2, Estimat Glomerular Filtration Rate 53.9, Glucose Level 425#H, Calcium Level 7.7L , Total Bilirubin 0.4, Aspartate Amino Transf (AST/SGOT) 21, Alanine Aminotransferase (ALT/SGPT) 15, Alkaline Phosphatase 144H, Total Protein 5.6L, Albumin 1.4L, Globulin 4.2, Albumin/Globulin Ratio 0.3L 04/07/20 05:59: POC Whole Blood Glucose 273H 04/07/20 11:23: POC Whole Blood Glucose 171H 04/07/20 16:37: POC Whole Blood Glucose 263H 04/07/20 21:15: POC Whole Blood Glucose 272H Height (Feet): 5 Height (Inches): 6.00 Weight (Pounds): 135 Objective General Appearance: WD/WN, no apparent distress EENT: normal ENT inspection Neck: non-tender, supple, normal inspection Cardiovascular: normal rate, regular rhythm, no gallop/murmur Respiratory/Chest: chest wall non-tender, lungs clear, normal breath sounds, no respiratory distress, no accessory muscle use Abdomen: normal bowel sounds, non tender, soft, no organomegaly Extremities: other - BLE wrapped in bandages, tender to palpation Edema: no edema noted Arm (L), no edema noted Arm (R), no edema noted Leg (L), no edema noted Leg (R) Neurologic: slate cutter II-XII grossly normal, alert, normal mood/affect Skin: normal pigmentation, warm/dry Assessment/Plan Assessment/Plan: A: #Acute encephalopathy likely secondary to infectious etiology versus toxic metab olicstable #Sepsis with UTI, cellulitis, foot ulcer source, #Osteomyelitis of the left lower extremity #UTI #Left lower extremity heel ulcer w/ possible osteomyelitis #Left lower extremity cellulitis #Bilateral lower extremity venous dermatitis #Bilateral lower extremity edema #Lactic acidosis #Diabetes mellitus uncontrolled; A1c 11.2 #Essential hypertension P: continue broad spec antibiotics with vancomycin and Zosyn - PICC line inserted today Follow-up urinary cultures, blood cultures, MRSA screen, wound culture Blood cultures negative for 72 hours MRSA screen positive Urine cultures positive for E. coli pansensitive -Inflammatory markers elevated MRI of left lower extremity concerning for osteomyelitis - s/p wound debridement with podiatry 04/07/2020 - f/u bone biopsy/culture continue 6 units of Levemir in the day, continue 15 units at night continue premeal NovoLog from 5 to 9 units Continue moderate insulin sliding scale, reassess daily insulin requirements Blood glucose goal is 140-180 Hypoglycemia protocols Continue home Lipitor, amlodipine, lisinopril Wound consult Consult Dr. Alamo, general surgery, recs appreciated Consult Dr. Ernst, ID, recs appreciated Consult Dr. Lee, neurology, recs appreciated CM Code: Full, will need to discuss further with family or patient as when she gets better Diet: Diabetic Fluids: None DVT prophylaxis: Lovenox 40 mg daily Dispo: DC to SNF pending ID and surgery clearance Time spent on this encounter was 39 minutes which included 25 minutes of counseling and care coordination. I discussed with the nurse at bedside. Time of note may not reflect time patient was seen. Carlton Story M.D. Apr 07, 2020 21:44
[2020-04-08] VITALS: BP 98/53
[2020-04-08] MEDS: Vancomycin 1 GM in NS 275 ML IVPB SCH (01:38)
[2020-04-08 03:56] VITALS: BP 122/64
[2020-04-08] MEDS: Piperacillin/Tazobactam 3.375 GM in NS 110 ML IVPB SCH ×2 (05:03→15:18)
[2020-04-08] MEDS: NovoLOG Insulin Flexpen SUBQ SCH ×7 (06:30→20:35)
--- NOTE | 2020-04-08 07:11 | Hematology/Onc Progress Note ---
Assessment/Plan Assessment/Plan Meds; noted # Leukocytosis likely secondary to underlying diabetic ketoacidosis, rule out underlying infection. --> likely due to infected wounds, heel ulcerations --> ABX vanc/zosyn --> Peripheral smear, reviewed, hold off flow for now --> elev inflammatory markers --> WBC 35-->22-->18-->14 # Anemia due to underlying chronic disease. --> Continue to closely monitor for improvement. --> Anemia w/u has been reviewed. Will trend cbc daily. --> Hgb goal >7 -> hgb 12-->10.7 --> anemia panel reviewed before # Hyperkalemia. Given Kayexalate. --> Improved # Diabetic ketoacidosis. --> per before, improved # High anion gap acidosis. To be seen by primary team. --> covering, On insulin sliding scale. # Shortness of breath in past with dka # Dvt ppx --> lovenox sq The time the note was entered does not necessarily correspond to the time the patient was seen. Subjective HEENT: Denies: no symptoms, eye pain, blurred vision, tearing, double vision, ear pain, ear discharge, nose pain, nose congestion, throat pain, throat swelling, mouth pain, mouth swelling, other Cardiovascular: Denies: no symptoms, chest pain, edema, irregular heart rate, lightheadedness, palpitations, syncope, other Respiratory: Denies: no symptoms, cough, shortness of breath, SOB with excertion, SOB at rest, sputum, wheezing, other Genitourinary: Denies: no symptoms, burning, discharge, frequency, flank pain, hematuria, incontinence, pain, urgency, other Endocrine: Denies: no symptoms, excessive sweating, flushing, intolerance to cold, intolerance to heat, increased hunger, increased thirst, increased urine, unexplained weight gain, unexplained weight loss, other Hematologic/Lymphatic: Denies: no symptoms, anemia, easy bleeding, easy bruising, adenopathy, other Allergies: Coded Allergies: PENICILLINS (Verified Allergy, Unknown, 12/05/17) Subjective 04/04 labs reviewed, meds noted, no bleeding, is on vanc/zosyn, wbc better 04/05 is on abx zosyn/vanc, labs noted, with facial grimace, no complaints 04/06 labs reviewed, improved, meds noted on abx 04/07 left heel ulceration surgery today, no bleeding, meds reviewed 04/08 meds reviewed, labs noted, no major changes, on vent settings Objective Objective Current Medications Medications (Trade) Dose Ordered Sig/Enrike Route PRN Reason Start Time Stop Time Status Last Admin Dose Admin Acetaminophen (Tylenol) 650 mg Q4H PRN ORAL Temp >100.5 03/31/20 19:00 04/30/20 18:59 04/01/20 13:05 Acetaminophen (Tylenol) 650 mg Q4H PRN ORAL Mild Pain (Pain Scale 1-3) 03/31/20 19:00 04/30/20 18:59 Al Hydroxide/Mg Hydroxide (Mylanta II) 30 ml Q6H PRN ORAL dyspepsia 03/31/20 19:00 04/30/20 18:59 Amlodipine Besylate (Norvasc) 5 mg DAILY ORAL 04/01/20 09:00 05/01/20 08:59 04/06/20 08:53 Aspirin (ASA) 81 mg DAILY ORAL 04/01/20 09:00 05/16/20 08:59 04/06/20 08:53 Atorvastatin Calcium (Lipitor) 80 mg BEDTIME ORAL 03/31/20 21:00 06/29/20 20:59 04/07/20 21:20 Benazepril HCl (Lotensin) 40 mg DAILY ORAL 04/01/20 09:00 05/01/20 08:59 04/06/20 08:53 Chlorhexidine Gluconate (Holli-Hex 2%) 1 applic DAILY@1999 TOPIC 04/07/20 20:00 07/06/20 19:59 04/07/20 20:00 Dextrose (Dextrose 50%) 25 ml Q30M PRN IV Hypoglycemia 03/31/20 20:30 06/29/20 20:29 04/06/20 06:30 Dextrose (Dextrose 50%) 50 ml Q30M PRN IV Hypoglycemia 03/31/20 20:30 06/29/20 20:29 Enoxaparin Sodium (Lovenox) 40 mg Q24H SUBQ 03/31/20 21:00 06/29/20 20:59 04/07/20 21:21 Insulin Aspart (NovoLOG) BEFORE MEALS AND HS SUBQ 03/31/20 21:00 06/29/20 20:59 04/07/20 21:22 Insulin Aspart (NovoLOG) 9 units NOVOTIAC SUBQ 04/05/20 11:50 07/02/20 11:49 04/07/20 17:00 Insulin Detemir (Levemir) 6 units DAILY SUBQ 04/05/20 09:00 07/04/20 08:59 04/05/20 09:40 Insulin Detemir (Levemir) 15 units QHS SUBQ 04/04/20 21:00 06/29/20 21:59 04/07/20 21:23 Magnesium Hydroxide (Mom) 30 ml HSPRN PRN ORAL Constipation 03/31/20 19:00 04/30/20 18:59 Ondansetron HCl (Zofran) 4 mg Q6H PRN IVP Nausea & Vomiting 03/31/20 19:00 04/30/20 18:59 Piperacillin Sod/ Tazobactam Sod 3.375 gm/Sodium Chloride 110 ml @ 27.5 mls/hr EVERY 8 HOURS IVPB 04/06/20 22:00 04/11/20 21:59 04/08/20 05:03 Sodium Hypochlorite (Dakin's Quarter Strength) 1 applic DAILY TOPIC 04/03/20 09:00 05/03/20 08:59 04/07/20 08:26 Vancomycin HCl ([facility] pharmacy to dose) 1 ea DAILY PRN MISC Per rx protocol 04/06/20 16:15 05/06/20 16:14 Vancomycin HCl 1 gm/Sodium Chloride 275 ml @ 183.708 mls/hr Q12HR@0100,1300 IVPB 04/07/20 01:00 04/12/20 00:59 04/08/20 01:38 Last 24 Hour Vital Signs Date Time Temp Pulse Resp B/P (MAP) Pulse Ox O2 Delivery O2 Flow Rate FiO2 04/08/20 03:56 98.1 94 17 122/64 (83) 96 04/08/20 00:00 99.2 99 19 98/53 (68) 96 04/07/20 21:00 Room Air 04/07/20 20:00 97.9 104 19 140/59 (86) 98 04/07/20 16:00 97.3 95 19 132/68 (89) 100 04/07/20 12:00 98.0 94 20 118/60 (79) 97 04/07/20 10:55 97.9 89 18 121/53 100 Nasal Cannula 3 04/07/20 10:46 82 20 99 04/07/20 10:45 90 18 121/51 100 Nasal Cannula 3 04/07/20 10:33 96 18 124/56 100 Simple Mask 6 04/07/20 10:23 96 15 127/57 100 Simple Mask 6 04/07/20 10:13 96 18 127/60 100 Simple Mask 6 04/07/20 10:13 86 22 99 04/07/20 10:08 94 20 122/61 100 Simple Mask 6 04/07/20 10:03 97.8 90 22 130/62 100 Simple Mask 6 04/07/20 09:00 Room Air 04/07/20 08:22 77 115/60 04/07/20 08:21 115/60 04/07/20 08:00 98.2 77 18 115/60 (78) 97 04/07/20 04:00 98.2 98 18 129/65 (86) 99 04/07/20 00:00 98.2 106 19 140/64 (89) 95 04/06/20 21:00 Room Air 04/06/20 20:00 98.0 101 19 115/58 (77) 98 04/06/20 16:00 97.8 95 19 112/51 (71) 98 04/06/20 12:00 98.2 90 19 121/59 (79) 98 04/06/20 09:00 Room Air 04/06/20 08:53 138/64 04/06/20 08:53 90 138/64 04/06/20 08:00 98.9 90 19 138/64 (88) 97 Intake and Output 04/07/20 04/08/20 19:00 07:00 Intake Total 727.5 ml 740.000 ml Output Total 250 ml 400 ml Balance 477.5 ml 340.000 ml Intake Oral 300 ml 300 ml IV Total 427.5 ml 440.000 ml Output Urine Total 200 ml 400 ml Estimated Blood Loss 50 ml # Bowel Movements 2 1 Labs Test 04/05/20 12:13 04/05/20 17:25 04/05/20 20:31 04/06/20 05:28 POC Whole Blood Glucose 310 MG/DL (74-106) 218 MG/DL (74-106) 258 MG/DL (74-106) 52 MG/DL (74-106) Test 04/06/20 05:30 04/06/20 05:34 04/06/20 05:54 04/06/20 05:55 White Blood Count 16.7 K/UL (4.8-10.8) Red Blood Count 3.66 M/UL (4.20-5.40) Hemoglobin 11.3 G/DL (12.0-16.0) Hematocrit 35.1 % (37.0-47.0) Mean Corpuscular Volume 96 FL (80-99) Mean Corpuscular Hemoglobin 30.7 PG (27.0-31.0) Mean Corpuscular Hemoglobin Concent 32.1 G/DL (32.0-36.0) Red Cell Distribution Width 13.0 % (11.6-14.8) Platelet Count 445 K/UL (150-450) Mean Platelet Volume 6.8 FL (6.5-10.1) Neutrophils (%) (Auto) 64.3 % (45.0-75.0) Lymphocytes (%) (Auto) 24.6 % (20.0-45.0) Monocytes (%) (Auto) 8.9 % (1.0-10.0) Eosinophils (%) (Auto) 1.3 % (0.0-3.0) Basophils (%) (Auto) 0.9 % (0.0-2.0) Sodium Level 141 MMOL/L (136-145) Potassium Level 3.6 MMOL/L (3.5-5.1) Chloride Level 108 MMOL/L (98-107) Carbon Dioxide Level 29 MMOL/L (21-32) Anion Gap 4 mmol/L (5-15) Blood Urea Nitrogen 13 mg/dL (7-18) Creatinine 0.8 MG/DL (0.55-1.30) Estimat Glomerular Filtration Rate > 60 mL/min (>60) Glucose Level 59 MG/DL (74-106) Calcium Level 7.9 MG/DL (8.5-10.1) Magnesium Level 1.7 MG/DL (1.8-2.4) POC Whole Blood Glucose 45 MG/DL (74-106) 46 MG/DL (74-106) 52 MG/DL (74-106) Test 04/06/20 06:19 04/06/20 06:53 04/06/20 08:51 04/06/20 11:34 POC Whole Blood Glucose 123 MG/DL (74-106) 210 MG/DL (74-106) Test 04/06/20 17:13 04/06/20 21:29 04/07/20 00:20 04/07/20 04:30 POC Whole Blood Glucose 349 MG/DL (74-106) 381 MG/DL (74-106) Vancomycin Level Trough 16.9 ug/mL (5.0-12.0) White Blood Count 13.9 K/UL (4.8-10.8) Red Blood Count 3.41 M/UL (4.20-5.40) Hemoglobin 10.5 G/DL (12.0-16.0) Hematocrit 33.9 % (37.0-47.0) Mean Corpuscular Volume 99 FL (80-99) Mean Corpuscular Hemoglobin 30.8 PG (27.0-31.0) Mean Corpuscular Hemoglobin Concent 31.0 G/DL (32.0-36.0) Red Cell Distribution Width 13.8 % (11.6-14.8) Platelet Count 453 K/UL (150-450) Mean Platelet Volume 6.0 FL (6.5-10.1) Neutrophils (%) (Auto) 72.1 % (45.0-75.0) Lymphocytes (%) (Auto) 19.5 % (20.0-45.0) Monocytes (%) (Auto) 7.0 % (1.0-10.0) Eosinophils (%) (Auto) 0.9 % (0.0-3.0) Basophils (%) (Auto) 0.5 % (0.0-2.0) Sodium Level 138 MMOL/L (136-145) Potassium Level 4.8 MMOL/L (3.5-5.1) Chloride Level 104 MMOL/L (98-107) Carbon Dioxide Level 30 MMOL/L (21-32) Anion Gap 4 mmol/L (5-15) Blood Urea Nitrogen 26 mg/dL (7-18) Creatinine 1.2 MG/DL (0.55-1.30) Estimat Glomerular Filtration Rate 53.9 mL/min (>60) Glucose Level 425 MG/DL (74-106) Calcium Level 7.7 MG/DL (8.5-10.1) Total Bilirubin 0.4 MG/DL (0.2-1.0) Aspartate Amino Transf (AST/SGOT) 21 U/L (15-37) Alanine Aminotransferase (ALT/SGPT) 15 U/L (12-78) Alkaline Phosphatase 144 U/L (46-116) Total Protein 5.6 G/DL (6.4-8.2) Albumin 1.4 G/DL (3.4-5.0) Globulin 4.2 g/dL Albumin/Globulin Ratio 0.3 (1.0-2.7) Test 04/07/20 05:59 04/07/20 11:23 04/07/20 16:37 04/07/20 21:15 POC Whole Blood Glucose 273 MG/DL (74-106) 171 MG/DL (74-106) 263 MG/DL (74-106) 272 MG/DL (74-106) Test 04/08/20 06:31 04/08/20 06:53 POC Whole Blood Glucose 73 MG/DL (74-106) Height (Feet): 5 Height (Inches): 6.00 Weight (Pounds): 135 Objective Vitals: reviewed, normal General Appearance: no apparent distress, non-toxic, lethargic HEENT: bilateral eye normal inspection, bilateral eye PERRL Neck: full range of motion, supple/symm/no masses Resp: chest non-tender, lungs clear, normal breath sounds, speaking full sentences Cardiovascular: regular rate, rhythm, no edema Gastrointestinal: normal bowel sounds, non tender Rectal: deferred Genitourinary: normal inspection, no CVA tenderness Musculoskeletal: back normal, gait/station normal, non-tender Lymphatic: no adenopathy David De Jesus MD Apr 08, 2020 07:11
[2020-04-08 08:00] VITALS: BP 129/62
[2020-04-08] MEDS: Aspirin Baby 81mg ORAL SCH (08:36)
[2020-04-08] MEDS: Dakin's 0.125% Soln (Quarter Strength) 16oz TOPIC SCH (08:37)
[2020-04-08] MEDS: Levemir Flexpen SUBQ SCH ×2 (08:45→20:36)
--- NOTE | 2020-04-08 10:23 | Surgery Progress Note ---
Surgery Progress Note Subjective Additional Comments doing well comfortable no n/v tolerating diet pain okay dressings in place Objective Last 24 Hour Vital Signs Date Time Temp Pulse Resp B/P (MAP) Pulse Ox O2 Delivery O2 Flow Rate FiO2 04/08/20 09:00 Room Air 04/08/20 08:37 129/62 04/08/20 08:36 92 129/62 04/08/20 08:00 97.7 92 18 129/62 (84) 98 04/08/20 03:56 98.1 94 17 122/64 (83) 96 04/08/20 00:00 99.2 99 19 98/53 (68) 96 04/07/20 21:00 Room Air 04/07/20 20:00 97.9 104 19 140/59 (86) 98 04/07/20 16:00 97.3 95 19 132/68 (89) 100 04/07/20 12:00 98.0 94 20 118/60 (79) 97 04/07/20 10:55 97.9 89 18 121/53 100 Nasal Cannula 3 04/07/20 10:46 82 20 99 04/07/20 10:45 90 18 121/51 100 Nasal Cannula 3 04/07/20 10:33 96 18 124/56 100 Simple Mask 6 04/07/20 10:23 96 15 127/57 100 Simple Mask 6 I&O Intake and Output 04/07/20 04/08/20 19:00 07:00 Intake Total 727.5 ml 740.000 ml Output Total 250 ml 400 ml Balance 477.5 ml 340.000 ml Intake Oral 300 ml 300 ml IV Total 427.5 ml 440.000 ml Output Urine Total 200 ml 400 ml Estimated Blood Loss 50 ml # Bowel Movements 2 1 Wound: clean Cardiovascular: RSR Respiratory: clear Abdomen: soft, non-tender, present bowel sounds Extremities: no tenderness, no cyanosis, other Laboratory Tests Test 04/07/20 11:23 04/07/20 16:37 04/07/20 21:15 04/08/20 06:31 POC Whole Blood Glucose 171 MG/DL (74-106) H 263 MG/DL (74-106) H 272 MG/DL (74-106) H Pending Test 04/08/20 06:53 POC Whole Blood Glucose 73 MG/DL (74-106) L Plan Problems: (1) Decubitus ulcer of heel Assessment & Plan: podiatry eval appreciated bibiana noted cont abx 1. Left foot incision and drainage with removal of all nonviable tissue. 2. Left foot deep wound culture, calcaneus. 3. Left foot bone culture, calcaneus. 4. Left foot bone biopsy, calcaneus. 5. Left foot excisional ulcer debridement of heel to the level of muscle. appreciate podiatry input cont dressings after drainage (2) Sacral decubitus ulcer (3) Sepsis Assessment & Plan: 69-year-old female multiple comorbidities presented with failure to thrive lethargic altered mental status noted to have significant leukocytosis greater than 30,000 lactic acidosis 2.3 abnormal labs A1c 11 identified to have draining bilateral heel unstageable decubitus ulcers multiple skin lesions on the lower extremities as well as a sacral decubitus ulcer as well. Patient is currently on antibiotics under work-up microbiology identified urine noted UTI. Imaging reviewed. Patient has been eating less recently but currently is eating at the bedside though does not look like she is taking much in. Treatment plan Wash sacral area daily with normal saline apply Thera honey followed by Optifoam dressing change daily and as needed saturation Wash bilateral heels daily with normal saline. Swab with Betadine unstageable necrotic eschar on bilateral heels and cover with Optifoam dressings. Change daily and as needed saturation Lower lower extremity ulcerations saw with Betadine cover with Optifoam dressing. Turn every 2 hours Offload pressure with pillows pillow on side as necessary as well as underneath calf to elevate heels Air soft mattress nutritional optimization continue IV antibiotics per infectious disease SACRUM- STAGE - UNSTAGEABLE PRESSURE ULCER MEASURES 6.0X13.0X0.2. WOUND BED WITH 80% SLOUGH AND 20% PINK GRANULATION TISSUE. NOTED FOUL ODOR RECOMMEND-CLEAN WITH SALINE. APPLY WET TO DRY DRESSINGS WITH DAKINS 0.25% DAKIN'S SOLUTION.COVER WITH OPTIFOAM DRESSING. REPLACE DRESSING DAILY. LEFT ISCHIUM-STAGE II PRESSURE ULCER MEASURES 4.5X0.5X0.2CM. PINK GRANULATION TISSUE NOTED. RECOMMEND- CLEAN WITH SALINE, PAT DRY. APPLY CALAZINE AND COVER WITH OPTIFOAM DRESSING. LEFT ANTERIOR LOW LEG-VENOUS ULCER MEASURES 8.0X2.6X0.2CM 100% YELLOW SLOUGH NOTED TO WOUND BED. RECOMMEND- CLEAN WITH SALINE, PA DRY. APPLY THERAHONEY. COVER WITH GAUZE AND SECURE WITH KERLIX. REPLACE DRESSING DAILY. LEFT HEEL- UNSTAGEABLE PRESSURE ULCER MEASURES 9.5X8.0X0.3CM. 100% MOIST BLACK ESCHAR. WITH STRONG FOUL ODOR. RECOMMEND- CLEAN WITH SALINE. APPLY WET TO DRY DRESSINGS WITH DAKINS 0.25% DAKIN'S SOLUTION. COVER WITH GAUZE, ABD PAD AND SECURE WITH KERLIX. REPLACE DAILY. RIGHT ANTERIOR LOW LEG-VENOUS ULCER MEASURES 2.5X3.0X0.2CM WITH PINK GRANULATION TISSUE. RIGHT ANTERIOR DISTAL LOW LEG -VENOUS ULCER MEASURES 1.5X0.2X0.1CM WITH PINK GRANULATION TISSUE. RECOMMEND-CLEAN WITH SALINE PAT DRY. APPLY XEROFORM GAUZE, GAUZE AND COVER WITH KERLIX. REPLACE DAILY RIGHT HEEL-DTI MEASURES 2.5X3.0CM. AREA DARK PURPLE IN COLOR AND BOGGY TO TOUCH. NO DRAINAGE NOTED. RECOMMEND- PAINT WITH CAVILON SKIN PROTECTOR, GAUZE AND WRAP WITH KERLIX. REPLACE DAILY. We will follow with recommendations thank you for letting participate patient's care Fairly numerous bubbles of soft tissue gas are seen within the subcutaneous fat and possibly the intrinsic musculature of the plantar surface of the heel. There is high STIR and decreased T1 signal within the calcaneus, and there is indistinctness of the inferior and posterior cortical margins of the calcaneus. There is some soft tissue ulceration of the plantar surface of the heel, as well as marked thinning of the subcutaneous fat overlying the calcaneal tuberosity. There is considerable edema of the plantar surface subcutaneous fat. There is also edema of the subcutaneous fat of the lateral and medial ankle. No focal discrete fluid collection to suggest drainable abscess demonstrated. Impression: Evidence of ulceration overlying the calcaneal tuberosity Soft tissue gas within the heel, as described. This may represent penetration the above, but is worrisome for infection with a gas-forming organism Abnormal signal within the posterior and mid calcaneus, highly suspicious for acute osteomyelitis (4) UTI (urinary tract infection) (5) Hyperkalemia (6) Leukocytosis (7) Altered mental status (8) Diabetes mellitus out of control (9) Acute on chronic renal failure (10) NSTEMI (non-ST elevated myocardial infarction) (11) High anion gap metabolic acidosis Joseph Alamo Apr 08, 2020 10:23
[2020-04-08 12:00] VITALS: BP 108/53
--- NOTE | 2020-04-08 12:57 | General Progress Note ---
Subjective Date patient seen: Apr 08, 2020 ROS Limited/Unobtainable: No Allergies: Coded Allergies: PENICILLINS (Verified Allergy, Unknown, 12/05/17) Subjective Constitutional: Denies: no symptoms, chills, diaphoresis, fever, malaise, weakness, other HEENT: Denies: no symptoms, eye pain, blurred vision, tearing, double vision, ear pain, ear discharge, nose pain, nose congestion, throat pain, throat swelling, mouth pain, mouth swelling, other Cardiovascular: Denies: no symptoms, chest pain, edema, irregular heart rate, lightheadedness, palpitations, syncope, other Respiratory: Denies: no symptoms, cough, orthopnea, shortness of breath, SOB with excertion, SOB at rest, sputum, stridor, wheezing, other Gastrointestinal/Abdominal: Denies: no symptoms, abdomen distended, abdominal pain, black stools, tarry stools, blood in stool, constipated, diarrhea, difficulty swallowing, nausea, poor appetite, poor fluid intake, rectal bleeding, vomiting, other Genitourinary: Denies: no symptoms, burning, discharge, frequency, flank pain, hematuria, incontinence, pain, urgency, other Neurologic/Psychiatric: Denies: no symptoms, anxiety, depressed, emotional problems, headache, numbness, paresthesia, pre-existing deficit, seizure, tingling, tremors, weakness, other Endocrine: Denies: no symptoms, excessive sweating, flushing, intolerance to cold, intolerance to heat, increased hunger, increased thirst, increased urine, unexplained weight gain, unexplained weight loss, other Hematologic/Lymphatic: Denies: no symptoms, anemia, easy bleeding, easy bruising, other Interval events: had PICC insertion yesterday Today patient awake and conversant. Denies pain in LLE today. Denies fever, chills, chest pain, SOB, N/V. Objective Last 24 Hour Vital Signs Date Time Temp Pulse Resp B/P (MAP) Pulse Ox O2 Delivery O2 Flow Rate FiO2 04/08/20 12:00 98.1 94 18 108/53 (71) 98 04/08/20 09:00 Room Air 04/08/20 08:37 129/62 04/08/20 08:36 92 129/62 04/08/20 08:00 97.7 92 18 129/62 (84) 98 04/08/20 03:56 98.1 94 17 122/64 (83) 96 04/08/20 00:00 99.2 99 19 98/53 (68) 96 04/07/20 21:00 Room Air 04/07/20 20:00 97.9 104 19 140/59 (86) 98 04/07/20 16:00 97.3 95 19 132/68 (89) 100 Intake and Output 04/07/20 04/08/20 19:00 07:00 Intake Total 727.5 ml 740.000 ml Output Total 250 ml 400 ml Balance 477.5 ml 340.000 ml Intake Oral 300 ml 300 ml IV Total 427.5 ml 440.000 ml Output Urine Total 200 ml 400 ml Estimated Blood Loss 50 ml # Bowel Movements 2 1 Laboratory Tests 04/07/20 16:37: POC Whole Blood Glucose 263H 04/07/20 21:15: POC Whole Blood Glucose 272H 04/08/20 06:31: POC Whole Blood Glucose [Pending] 04/08/20 06:53: POC Whole Blood Glucose 73L 04/08/20 12:00: Vancomycin Level Trough 20.4H Height (Feet): 5 Height (Inches): 6.00 Weight (Pounds): 135 Objective General Appearance: WD/WN, no apparent distress, awake, conversant EENT: normal ENT inspection Neck: non-tender, supple, normal inspection Cardiovascular: normal rate, regular rhythm, no gallop/murmur Respiratory/Chest: chest wall non-tender, lungs clear, normal breath sounds, no respiratory distress, no accessory muscle use Abdomen: normal bowel sounds, non tender, soft, no organomegaly Extremities: other - BLE wrapped in bandages, minimally tender to palpation Edema: no edema noted Arm (L), no edema noted Arm (R), no edema noted Leg (L), no edema noted Leg (R) Neurologic: ground hand II-XII grossly normal, alert, normal mood/affect Skin: normal pigmentation, warm/dry Assessment/Plan Assessment/Plan: A: #Acute encephalopathy likely secondary to infectious etiology versus toxic met abolicstable #Sepsis with UTI, cellulitis, foot ulcer source, #Osteomyelitis of the left lower extremity #UTI #Left lower extremity heel ulcer w/ possible osteomyelitis #Left lower extremity cellulitis #Bilateral lower extremity venous dermatitis #Bilateral lower extremity edema #Lactic acidosis #Diabetes mellitus uncontrolled; A1c 11.2 #Essential hypertension P: continue broad spec antibiotics with vancomycin and Zosyn - 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 coli pansensitive -Inflammatory markers elevated MRI of left lower extremity concerning for osteomyelitis - s/p wound debridement with podiatry 04/07/2020 - f/u bone biopsy/culture continue 6 units of Levemir in the day, continue 15 units at night continue premeal NovoLog from 5 to 9 units Continue moderate insulin sliding scale, reassess daily insulin requirements Blood glucose goal is 140-180 Hypoglycemia protocols Continue home Lipitor, amlodipine, lisinopril Wound consult Consult Dr. Alamo, general surgery, recs appreciated Consult Dr. Ernst, ID, recs appreciated Consult Dr. Lee, neurology, recs appreciated CM Code: Full, will need to discuss further with family or patient as when she gets better Diet: Diabetic Fluids: None DVT prophylaxis: Lovenox 40 mg daily Dispo: DC to SNF pending ID and surgery clearance Time spent on this encounter was 36 minutes which included 20 minutes of counseling and care coordination. I discussed with the nurse at bedside. Time of note may not reflect time patient was seen. Carlton Story M.D. Apr 08, 2020 12:57
[2020-04-08] MEDS: Vancomycin 750mg/NS 275ml IVPB SCH ×2 (13:46)
[2020-04-08 16:00] VITALS: BP 111/60
--- NOTE | 2020-04-08 18:02 | Infectious Diseases Prog Note ---
Assessment/Plan Assessment/Plan ASSESSMENT AND PLAN: 1. e.coli uti, left heel/foot osteomyelitis on MRI/infected wound/gangrene/abscess, sepsis, fevers, leukocytosis mrsa colonization elevated cr - ? zosyn/vancomycin combination s/p left foot I/D - vancomycin, cefepime and flagyl - day # 8 - monitor labs, f/u on surgical cultures and pathology - will need 6 weeks iv abx, picc line - monitor labs and creatinine - leukocytosis improved 2. Hypertension, diabetes - continue treatment 3. Wounds. 4. Weakness. 5. Encephalopathy. 6. Allergic to penicillin, tolerates Zosyn. 7. Family history is noncontributory. 8. MAR was noted. 9. Case discussed with RN. 10. Continue treatment per primary consultants. Subjective Constitutional: Denies: fever HEENT: Denies: congestion Respiratory: Denies: shortness of breath Cardiovascular: Denies: chest pain Gastrointestinal/Abdominal: Denies: nausea, vomiting, diarrhea Genitourinary: Reports: other - no alaniz Neurologic: Denies: headache Psychiatric: Denies: depression Skin: Denies: rash Hematologic: Denies: bleeding Musculoskeletal: Denies: pain Allergies: Coded Allergies: PENICILLINS (Verified Allergy, Unknown, 12/05/17) Objective Last 24 Hour Vital Signs Date Time Temp Pulse Resp B/P (MAP) Pulse Ox O2 Delivery O2 Flow Rate FiO2 04/08/20 16:00 98.4 96 18 111/60 (77) 98 04/08/20 12:00 98.1 94 18 108/53 (71) 98 04/08/20 09:00 Room Air 04/08/20 08:37 129/62 04/08/20 08:36 92 129/62 04/08/20 08:00 97.7 92 18 129/62 (84) 98 04/08/20 03:56 98.1 94 17 122/64 (83) 96 04/08/20 00:00 99.2 99 19 98/53 (68) 96 04/07/20 21:00 Room Air 04/07/20 20:00 97.9 104 19 140/59 (86) 98 Height (Feet): 5 Height (Inches): 6.00 Weight (Pounds): 135 General Appearance: no acute distress HEENT: normocephalic, atraumatic, anicteric, mucous membranes moist Respiratory/Chest: lungs clear, normal breath sounds, no respiratory distress, no accessory muscle use Cardiovascular: normal rate, regular rhythm, no gallop/murmur Abdomen: normal bowel sounds, soft, non tender, no organomegaly, non distended Genitourinary: other - no alaniz Extremities: other - wounds - covered Skin: no rash 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 Within these limitations: No definite acute fracture is appreciated. Lisfranc alignment of the foot appears grossly maintained. There is a suspected ulceration underlying the heel with possible subcutaneous gas. Correlation with physical exam recommended as soft tissue infection is suspected. No discrete changes noted in the adjacent calcaneus to suggest acute osteomyelitis however more sensitive evaluation can be made with MRI. Chest x-ray - 03/31/20 - Procedure: XRAY Chest 1v Indication: Altered mental status, cough Technique: XRAY Chest 1v Comparison: 12/05/2017 Findings: Heart size and mediastinal contours stable. There is no definite focal airspace consolidation. Some peribronchial thickening is seen. No pleural effusion or pneumothorax. No acute osseous abnormality. IMPRESSION: Peribronchial thickening which may suggest small airway disease/bronchitis. Correlate clinically. No focal consolidation. MRI left foot: Findings: Fairly numerous bubbles of soft tissue gas are seen within the subcutaneous fat and possibly the intrinsic musculature of the plantar surface of the heel. There is high STIR and decreased T1 signal within the calcaneus, and there is indistinctness of the inferior and posterior cortical margins of the calcaneus. There is some soft tissue ulceration of the plantar surface of the heel, as well as marked thinning of the subcutaneous fat overlying the calcaneal tuberosity. There is considerable edema of the plantar surface subcutaneous fat. There is also edema of the subcutaneous fat of the lateral and medial ankle. No focal discrete fluid collection to suggest drainable abscess demonstrated. Impression: Evidence of ulceration overlying the calcaneal tuberosity Soft tissue gas within the heel, as described. This may represent penetration the above, but is worrisome for infection with a gas-forming organism Abnormal signal within the posterior and mid calcaneus, highly suspicious for acute osteomyelitis Microbiology Date/Time Source Procedure Growth Status 04/07/20 09:45 Foot Left Gram Stain Pending Resulted 04/07/20 09:45 Foot Left Aerobic Culture - Preliminary NO GROWTH AFTER 24 HOURS Resulted 04/07/20 09:45 Foot Left Anaerobic Culture Pending Resulted 04/07/20 09:45 Foot Left Gram Stain Pending Resulted 04/07/20 09:45 Foot Left Aerobic Culture - Preliminary Resulted 04/07/20 09:45 Foot Left Anaerobic Culture Pending Resulted 04/07/20 09:45 Bone Marrow Gram Stain Pending Resulted 04/07/20 09:45 Bone Marrow Bone Marrow Culture - Preliminary NO GROWTH Resulted Labs Test 04/05/20 20:31 04/06/20 05:28 04/06/20 05:30 04/06/20 05:34 POC Whole Blood Glucose 258 MG/DL (74-106) 52 MG/DL (74-106) 45 MG/DL (74-106) White Blood Count 16.7 K/UL (4.8-10.8) Red Blood Count 3.66 M/UL (4.20-5.40) Hemoglobin 11.3 G/DL (12.0-16.0) Hematocrit 35.1 % (37.0-47.0) Mean Corpuscular Volume 96 FL (80-99) Mean Corpuscular Hemoglobin 30.7 PG (27.0-31.0) Mean Corpuscular Hemoglobin Concent 32.1 G/DL (32.0-36.0) Red Cell Distribution Width 13.0 % (11.6-14.8) Platelet Count 445 K/UL (150-450) Mean Platelet Volume 6.8 FL (6.5-10.1) Neutrophils (%) (Auto) 64.3 % (45.0-75.0) Lymphocytes (%) (Auto) 24.6 % (20.0-45.0) Monocytes (%) (Auto) 8.9 % (1.0-10.0) Eosinophils (%) (Auto) 1.3 % (0.0-3.0) Basophils (%) (Auto) 0.9 % (0.0-2.0) Sodium Level 141 MMOL/L (136-145) Potassium Level 3.6 MMOL/L (3.5-5.1) Chloride Level 108 MMOL/L (98-107) Carbon Dioxide Level 29 MMOL/L (21-32) Anion Gap 4 mmol/L (5-15) Blood Urea Nitrogen 13 mg/dL (7-18) Creatinine 0.8 MG/DL (0.55-1.30) Estimat Glomerular Filtration Rate > 60 mL/min (>60) Glucose Level 59 MG/DL (74-106) Calcium Level 7.9 MG/DL (8.5-10.1) Magnesium Level 1.7 MG/DL (1.8-2.4) Test 04/06/20 05:54 04/06/20 05:55 04/06/20 06:19 04/06/20 06:53 POC Whole Blood Glucose 46 MG/DL (74-106) 52 MG/DL (74-106) 123 MG/DL (74-106) Test 04/06/20 08:51 04/06/20 11:34 04/06/20 17:13 04/06/20 21:29 POC Whole Blood Glucose 210 MG/DL (74-106) 349 MG/DL (74-106) 381 MG/DL (74-106) Test 04/07/20 00:20 04/07/20 04:30 04/07/20 05:59 04/07/20 11:23 Vancomycin Level Trough 16.9 ug/mL (5.0-12.0) White Blood Count 13.9 K/UL (4.8-10.8) Red Blood Count 3.41 M/UL (4.20-5.40) Hemoglobin 10.5 G/DL (12.0-16.0) Hematocrit 33.9 % (37.0-47.0) Mean Corpuscular Volume 99 FL (80-99) Mean Corpuscular Hemoglobin 30.8 PG (27.0-31.0) Mean Corpuscular Hemoglobin Concent 31.0 G/DL (32.0-36.0) Red Cell Distribution Width 13.8 % (11.6-14.8) Platelet Count 453 K/UL (150-450) Mean Platelet Volume 6.0 FL (6.5-10.1) Neutrophils (%) (Auto) 72.1 % (45.0-75.0) Lymphocytes (%) (Auto) 19.5 % (20.0-45.0) Monocytes (%) (Auto) 7.0 % (1.0-10.0) Eosinophils (%) (Auto) 0.9 % (0.0-3.0) Basophils (%) (Auto) 0.5 % (0.0-2.0) Sodium Level 138 MMOL/L (136-145) Potassium Level 4.8 MMOL/L (3.5-5.1) Chloride Level 104 MMOL/L (98-107) Carbon Dioxide Level 30 MMOL/L (21-32) Anion Gap 4 mmol/L (5-15) Blood Urea Nitrogen 26 mg/dL (7-18) Creatinine 1.2 MG/DL (0.55-1.30) Estimat Glomerular Filtration Rate 53.9 mL/min (>60) Glucose Level 425 MG/DL (74-106) Calcium Level 7.7 MG/DL (8.5-10.1) Total Bilirubin 0.4 MG/DL (0.2-1.0) Aspartate Amino Transf (AST/SGOT) 21 U/L (15-37) Alanine Aminotransferase (ALT/SGPT) 15 U/L (12-78) Alkaline Phosphatase 144 U/L (46-116) Total Protein 5.6 G/DL (6.4-8.2) Albumin 1.4 G/DL (3.4-5.0) Globulin 4.2 g/dL Albumin/Globulin Ratio 0.3 (1.0-2.7) POC Whole Blood Glucose 273 MG/DL (74-106) 171 MG/DL (74-106) Test 04/07/20 16:37 04/07/20 21:15 04/08/20 06:31 04/08/20 06:53 POC Whole Blood Glucose 263 MG/DL (74-106) 272 MG/DL (74-106) 73 MG/DL (74-106) Test 04/08/20 12:00 Vancomycin Level Trough 20.4 ug/mL (5.0-12.0) Laboratory Tests Test 04/07/20 21:15 04/08/20 06:31 04/08/20 06:53 04/08/20 12:00 POC Whole Blood Glucose 272 MG/DL (74-106) H Pending 73 MG/DL (74-106) L Vancomycin Level Trough 20.4 ug/mL (5.0-12.0) H Current Medications Medications (Trade) Dose Ordered Sig/Enrike Route PRN Reason Start Time Stop Time Status Last Admin Dose Admin Acetaminophen (Tylenol) 650 mg Q4H PRN ORAL Temp >100.5 03/31/20 19:00 04/30/20 18:59 04/01/20 13:05 Acetaminophen (Tylenol) 650 mg Q4H PRN ORAL Mild Pain (Pain Scale 1-3) 03/31/20 19:00 04/30/20 18:59 Al Hydroxide/Mg Hydroxide (Mylanta II) 30 ml Q6H PRN ORAL dyspepsia 03/31/20 19:00 04/30/20 18:59 Amlodipine Besylate (Norvasc) 5 mg DAILY ORAL 04/01/20 09:00 05/01/20 08:59 04/08/20 08:36 Aspirin (ASA) 81 mg DAILY ORAL 04/01/20 09:00 05/16/20 08:59 04/08/20 08:36 Atorvastatin Calcium (Lipitor) 80 mg BEDTIME ORAL 03/31/20 21:00 06/29/20 20:59 04/07/20 21:20 Benazepril HCl (Lotensin) 40 mg DAILY ORAL 04/01/20 09:00 05/01/20 08:59 04/08/20 08:37 Chlorhexidine Gluconate (Holli-Hex 2%) 1 applic DAILY@2000 TOPIC 04/07/20 20:00 07/06/20 19:59 04/07/20 20:00 Dextrose (Dextrose 50%) 25 ml Q30M PRN IV Hypoglycemia 03/31/20 20:30 06/29/20 20:29 04/06/20 06:30 Dextrose (Dextrose 50%) 50 ml Q30M PRN IV Hypoglycemia 03/31/20 20:30 06/29/20 20:29 Enoxaparin Sodium (Lovenox) 40 mg Q24H SUBQ 03/31/20 21:00 06/29/20 20:59 04/07/20 21:21 Insulin Aspart (NovoLOG) BEFORE MEALS AND HS SUBQ 03/31/20 21:00 06/29/20 20:59 04/08/20 16:52 Insulin Aspart (NovoLOG) 9 units NOVOTIAC SUBQ 04/05/20 11:50 07/02/20 11:49 04/08/20 16:53 Insulin Detemir (Levemir) 6 units DAILY SUBQ 04/05/20 09:00 07/04/20 08:59 04/08/20 08:45 Insulin Detemir (Levemir) 15 units QHS SUBQ 04/04/20 21:00 06/29/20 21:59 04/07/20 21:23 Magnesium Hydroxide (Mom) 30 ml HSPRN PRN ORAL Constipation 03/31/20 19:00 04/30/20 18:59 Ondansetron HCl (Zofran) 4 mg Q6H PRN IVP Nausea & Vomiting 03/31/20 19:00 04/30/20 18:59 Piperacillin Sod/ Tazobactam Sod 3.375 gm/Sodium Chloride 110 ml @ 27.5 mls/hr EVERY 8 HOURS IVPB 04/06/20 22:00 04/11/20 21:59 04/08/20 15:18 Sodium Hypochlorite (Dakin's Quarter Strength) 1 applic DAILY TOPIC 04/03/20 09:00 05/03/20 08:59 04/08/20 08:37 Vancomycin HCl (Vanco pharmacy to dose) 1 ea DAILY PRN MISC Per rx protocol 04/06/20 16:15 05/06/20 16:14 Vancomycin HCl 750 mg/Sodium Chloride 275 ml @ 183.333 mls/hr Q12HR@0200,1400 IVPB 04/08/20 14:00 04/13/20 13:59 04/08/20 13:46 Elyse Leung MD Apr 08, 2020 18:02
[2020-04-08 20:00] VITALS: BP 113/58
[2020-04-08] MEDS: Dyna-Hex 2% Top Sol 2oz TOPIC SCH (20:32)
[2020-04-08] MEDS: Cefepime HCl 2 GM in NS 55 ML IVPB SCH (20:33)
[2020-04-08] MEDS: Enoxaparin 40mg Inj SUBQ SCH (20:33)
[2020-04-08] MEDS: Atorvastatin 80mg tab ORAL SCH (20:33)
[2020-04-08] MEDS: metroNIDAZOLE 500mg tab ORAL SCH (21:19)
--- NOTE | 2020-04-08 21:47 | Neurology Progress Note ---
Interim History Interim History ROS Limited/Unobtainable: No Interim History no new deficits Objective Physical Exam Last Vital Signs Date Time Temp Pulse Resp B/P (MAP) Pulse Ox O2 Delivery O2 Flow Rate FiO2 04/08/20 21:00 Room Air 04/08/20 20:00 98.4 98 19 113/58 (76) 98 04/07/20 10:55 3 04/01/20 06:58 21 Laboratory Tests Test 04/08/20 06:31 04/08/20 06:53 04/08/20 12:00 04/08/20 20:30 POC Whole Blood Glucose Pending 73 MG/DL (74-106) L 287 MG/DL (74-106) H Vancomycin Level Trough 20.4 ug/mL (5.0-12.0) H General: well nourished Head: normocophalic Neck: no rigidity Neurologic Exam Mental Status: awake Objective confused, follows midline oriened to self LE weakness and numbness Impression/Recommendations Problems: (1) Sepsis (2) UTI (urinary tract infection) (3) Hyperkalemia (4) Leukocytosis (5) Altered mental status (6) Diabetes mellitus out of control (7) Acute on chronic renal failure (8) NSTEMI (non-ST elevated myocardial infarction) (9) High anion gap metabolic acidosis (10) Sacral decubitus ulcer (11) Decubitus ulcer of heel Diagnostic Impression acute encephalopathy, likely metabolic, fluctuating. LE weakness Cellulitis. Diabetes Delirium precautions ordered Cont atb PT as able Thee Lee MD Apr 08, 2020 21:47
[2020-04-09] VITALS: BP 123/60
[2020-04-09] MEDS: Vancomycin 750mg/NS 275ml IVPB SCH ×4 (01:53→14:43)
[2020-04-09 04:00] VITALS: BP 123/58
[2020-04-09] MEDS: metroNIDAZOLE 500mg tab ORAL SCH ×3 (06:29→21:19)
[2020-04-09] MEDS: NovoLOG Insulin Flexpen SUBQ SCH ×7 (06:30→21:35)
[2020-04-09 06:41] LABS: BLOOD UREA NITROGEN 20 mg/dL (7-18); CALCIUM 7.8 MG/DL (8.5-10.1); CARBON DIOXIDE 32 MMOL/L (21-32); CHLORIDE 109 MMOL/L (98-107); POTASSIUM 4.3 MMOL/L (3.5-5.1); SODIUM 145 MMOL/L (136-145)
[2020-04-09 06:42] LABS: ANION GAP 4 mmol/L (5-15)
[2020-04-09 06:46] LABS: BASOPHILS % (AUTO) 0.8 % (0.0-2.0); EOSINOPHILS % (AUTO) 1.6 % (0.0-3.0); HEMATOCRIT 26.5 % (37.0-47.0); HEMOGLOBIN 9.4 G/DL (12.0-16.0); LYMPHOCYTES % (AUTO) 26.9 % (20.0-45.0); MEAN CORPUSCULAR VOLUME 89 FL (80-99); MONOCYTES % (AUTO) 7.8 % (1.0-10.0); NEUTROPHILS % (AUTO) 62.8 % (45.0-75.0); PLATELET COUNT 391 K/UL (150-450); RED BLOOD COUNT 2.98 M/UL (4.20-5.40); RED CELL DISTRIBUTION WIDTH 14.8 % (11.6-14.8); WHITE BLOOD COUNT 12.5 K/UL (4.8-10.8)
--- NOTE | 2020-04-09 07:26 | Hematology/Onc Progress Note ---
Assessment/Plan Assessment/Plan # Leukocytosis likely secondary to underlying diabetic ketoacidosis, rule out underlying infection. --> likely due to infected wounds, heel ulcerations --> ABX vanc/zosyn --> Peripheral smear, reviewed, hold off flow for now --> elev inflammatory markers --> WBC 35-->22-->18-->14-->13 # Anemia due to underlying chronic disease. --> Continue to closely monitor for improvement. --> Anemia w/u has been reviewed. Will trend cbc daily. --> Hgb goal >7 -> hgb 12-->10.7->9.4 --> anemia panel reviewed before # Hyperkalemia. Given Kayexalate. --> Improved # Diabetic ketoacidosis. --> per before, improved # High anion gap acidosis. To be seen by primary team. --> covering, On insulin sliding scale. # Shortness of breath in past with dka # Dvt ppx --> lovenox sq The time the note was entered does not necessarily correspond to the time the patient was seen. Subjective Constitutional: Denies: no symptoms, chills, fever, malaise, weakness, other HEENT: Denies: no symptoms, eye pain, blurred vision, tearing, double vision, ear pain, ear discharge, nose pain, nose congestion, throat pain, throat swelling, mouth pain, mouth swelling, other Respiratory: Denies: no symptoms, cough, shortness of breath, SOB with excertion, SOB at rest, sputum, wheezing, other Gastrointestinal/Abdominal: Denies: no symptoms, abdomen distended, abdominal pain, black stools, tarry stools, blood in stool, constipated, diarrhea, difficulty swallowing, nausea, poor appetite, poor fluid intake, rectal bleedi ng, vomiting, other Genitourinary: Denies: no symptoms, burning, discharge, frequency, flank pain, hematuria, incontinence, pain, urgency, other Endocrine: Denies: no symptoms, excessive sweating, flushing, intolerance to cold, intolerance to heat, increased hunger, increased thirst, increased urine, unexplained weight gain, unexplained weight loss, other Allergies: Coded Allergies: PENICILLINS (Verified Allergy, Unknown, 12/05/17) Subjective 04/04 labs reviewed, meds noted, no bleeding, is on vanc/zosyn, wbc better 04/05 is on abx zosyn/vanc, labs noted, with facial grimace, no complaints 04/06 labs reviewed, improved, meds noted on abx 04/07 left heel ulceration surgery today, no bleeding, meds reviewed 04/08 meds reviewed, labs noted, no major changes, on vent settings 04/09 labs reviewed, meds noted, A+O x1, hgb 9.4, no hemolysis Objective Objective Current Medications Medications (Trade) Dose Ordered Sig/Enrike Route PRN Reason Start Time Stop Time Status Last Admin Dose Admin Acetaminophen (Tylenol) 650 mg Q4H PRN ORAL Temp >100.5 03/31/20 19:00 04/30/20 18:59 04/01/20 13:05 Acetaminophen (Tylenol) 650 mg Q4H PRN ORAL Mild Pain (Pain Scale 1-3) 03/31/20 19:00 04/30/20 18:59 Al Hydroxide/Mg Hydroxide (Mylanta II) 30 ml Q6H PRN ORAL dyspepsia 03/31/20 19:00 04/30/20 18:59 Amlodipine Besylate (Norvasc) 5 mg DAILY ORAL 04/01/20 09:00 05/01/20 08:59 04/08/20 08:36 Aspirin (ASA) 81 mg DAILY ORAL 04/01/20 09:00 05/16/20 08:59 04/08/20 08:36 Atorvastatin Calcium (Lipitor) 80 mg BEDTIME ORAL 03/31/20 21:00 06/29/20 20:59 04/08/20 20:33 Benazepril HCl (Lotensin) 40 mg DAILY ORAL 04/01/20 09:00 05/01/20 08:59 04/08/20 08:37 Cefepime HCl 2 gm/ Sodium Chloride 55 ml @ 110 mls/hr EVERY 12 HOURS IVPB 04/08/20 21:00 04/15/20 20:59 04/08/20 20:33 Chlorhexidine Gluconate (Holli-Hex 2%) 1 applic DAILY@2000 TOPIC 04/07/20 20:00 07/06/20 19:59 04/08/20 20:32 Dextrose (Dextrose 50%) 25 ml Q30M PRN IV Hypoglycemia 03/31/20 20:30 06/29/20 20:29 04/06/20 06:30 Dextrose (Dextrose 50%) 50 ml Q30M PRN IV Hypoglycemia 03/31/20 20:30 06/29/20 20:29 Enoxaparin Sodium (Lovenox) 40 mg Q24H SUBQ 03/31/20 21:00 06/29/20 20:59 04/08/20 20:33 Insulin Aspart (NovoLOG) BEFORE MEALS AND HS SUBQ 03/31/20 21:00 06/29/20 20:59 04/09/20 06:30 Insulin Aspart (NovoLOG) 9 units NOVOTIAC SUBQ 04/05/20 11:50 07/02/20 11:49 04/09/20 06:30 Insulin Detemir (Levemir) 6 units DAILY SUBQ 04/05/20 09:00 07/04/20 08:59 04/08/20 08:45 Insulin Detemir (Levemir) 15 units QHS SUBQ 04/04/20 21:00 06/29/20 21:59 04/08/20 20:36 Magnesium Hydroxide (Mom) 30 ml HSPRN PRN ORAL Constipation 03/31/20 19:00 04/30/20 18:59 Metronidazole (Flagyl) 500 mg Q8HR ORAL 04/08/20 22:00 04/15/20 21:59 04/09/20 06:29 Ondansetron HCl (Zofran) 4 mg Q6H PRN IVP Nausea & Vomiting 03/31/20 19:00 04/30/20 18:59 Sodium Hypochlorite (Dakin's Quarter Strength) 1 applic DAILY TOPIC 04/03/20 09:00 05/03/20 08:59 04/08/20 08:37 Vancomycin HCl (Vanco pharmacy to dose) 1 ea DAILY PRN MISC Per rx protocol 04/06/20 16:15 05/06/20 16:14 Vancomycin HCl 750 mg/Sodium Chloride 275 ml @ 183.333 mls/hr Q12HR@0200,1400 IVPB 04/08/20 14:00 04/13/20 13:59 04/09/20 01:53 Last 24 Hour Vital Signs Date Time Temp Pulse Resp B/P (MAP) Pulse Ox O2 Delivery O2 Flow Rate FiO2 04/09/20 04:00 98.1 94 18 123/58 (79) 98 04/09/20 00:00 98.4 95 18 123/60 (81) 98 04/08/20 21:00 Room Air 04/08/20 20:00 98.4 98 19 113/58 (76) 98 04/08/20 16:00 98.4 96 18 111/60 (77) 98 04/08/20 12:00 98.1 94 18 108/53 (71) 98 04/08/20 09:00 Room Air 04/08/20 08:37 129/62 04/08/20 08:36 92 129/62 04/08/20 08:00 97.7 92 18 129/62 (84) 98 04/08/20 03:56 98.1 94 17 122/64 (83) 96 04/08/20 00:00 99.2 99 19 98/53 (68) 96 04/07/20 21:00 Room Air 04/07/20 20:00 97.9 104 19 140/59 (86) 98 04/07/20 16:00 97.3 95 19 132/68 (89) 100 04/07/20 12:00 98.0 94 20 118/60 (79) 97 04/07/20 10:55 97.9 89 18 121/53 100 Nasal Cannula 3 04/07/20 10:46 82 20 99 04/07/20 10:45 90 18 121/51 100 Nasal Cannula 3 04/07/20 10:33 96 18 124/56 100 Simple Mask 6 04/07/20 10:23 96 15 127/57 100 Simple Mask 6 04/07/20 10:13 96 18 127/60 100 Simple Mask 6 04/07/20 10:13 86 22 99 04/07/20 10:08 94 20 122/61 100 Simple Mask 6 04/07/20 10:03 97.8 90 22 130/62 100 Simple Mask 6 04/07/20 09:00 Room Air 04/07/20 08:22 77 115/60 04/07/20 08:21 115/60 04/07/20 08:00 98.2 77 18 115/60 (78) 97 Intake and Output 04/08/20 04/09/20 19:00 07:00 Intake Total 1251.666 ml 350 ml Output Total 1100 ml 700 ml Balance 151.666 ml -350 ml Intake Oral 720 ml 350 ml IV Total 531.666 ml Output Urine Total 1100 ml 700 ml # Bowel Movements 1 1 Labs Test 04/06/20 08:51 04/06/20 11:34 04/06/20 17:13 04/06/20 21:29 POC Whole Blood Glucose 210 MG/DL (74-106) 349 MG/DL (74-106) 381 MG/DL (74-106) Test 04/07/20 00:20 04/07/20 04:30 04/07/20 05:59 04/07/20 11:23 Vancomycin Level Trough 16.9 ug/mL (5.0-12.0) White Blood Count 13.9 K/UL (4.8-10.8) Red Blood Count 3.41 M/UL (4.20-5.40) Hemoglobin 10.5 G/DL (12.0-16.0) Hematocrit 33.9 % (37.0-47.0) Mean Corpuscular Volume 99 FL (80-99) Mean Corpuscular Hemoglobin 30.8 PG (27.0-31.0) Mean Corpuscular Hemoglobin Concent 31.0 G/DL (32.0-36.0) Red Cell Distribution Width 13.8 % (11.6-14.8) Platelet Count 453 K/UL (150-450) Mean Platelet Volume 6.0 FL (6.5-10.1) Neutrophils (%) (Auto) 72.1 % (45.0-75.0) Lymphocytes (%) (Auto) 19.5 % (20.0-45.0) Monocytes (%) (Auto) 7.0 % (1.0-10.0) Eosinophils (%) (Auto) 0.9 % (0.0-3.0) Basophils (%) (Auto) 0.5 % (0.0-2.0) Sodium Level 138 MMOL/L (136-145) Potassium Level 4.8 MMOL/L (3.5-5.1) Chloride Level 104 MMOL/L (98-107) Carbon Dioxide Level 30 MMOL/L (21-32) Anion Gap 4 mmol/L (5-15) Blood Urea Nitrogen 26 mg/dL (7-18) Creatinine 1.2 MG/DL (0.55-1.30) Estimat Glomerular Filtration Rate 53.9 mL/min (>60) Glucose Level 425 MG/DL (74-106) Calcium Level 7.7 MG/DL (8.5-10.1) Total Bilirubin 0.4 MG/DL (0.2-1.0) Aspartate Amino Transf (AST/SGOT) 21 U/L (15-37) Alanine Aminotransferase (ALT/SGPT) 15 U/L (12-78) Alkaline Phosphatase 144 U/L (46-116) Total Protein 5.6 G/DL (6.4-8.2) Albumin 1.4 G/DL (3.4-5.0) Globulin 4.2 g/dL Albumin/Globulin Ratio 0.3 (1.0-2.7) POC Whole Blood Glucose 273 MG/DL (74-106) 171 MG/DL (74-106) Test 04/07/20 16:37 04/07/20 21:15 04/08/20 06:31 04/08/20 06:53 POC Whole Blood Glucose 263 MG/DL (74-106) 272 MG/DL (74-106) 73 MG/DL (74-106) Test 04/08/20 12:00 04/08/20 20:30 04/09/20 05:09 04/09/20 06:10 Vancomycin Level Trough 20.4 ug/mL (5.0-12.0) POC Whole Blood Glucose 287 MG/DL (74-106) 140 MG/DL (74-106) White Blood Count 12.5 K/UL (4.8-10.8) Red Blood Count 2.98 M/UL (4.20-5.40) Hemoglobin 9.4 G/DL (12.0-16.0) Hematocrit 26.5 % (37.0-47.0) Mean Corpuscular Volume 89 FL (80-99) Mean Corpuscular Hemoglobin 31.4 PG (27.0-31.0) Mean Corpuscular Hemoglobin Concent 35.4 G/DL (32.0-36.0) Red Cell Distribution Width 14.8 % (11.6-14.8) Platelet Count 391 K/UL (150-450) Mean Platelet Volume 7.0 FL (6.5-10.1) Neutrophils (%) (Auto) 62.8 % (45.0-75.0) Lymphocytes (%) (Auto) 26.9 % (20.0-45.0) Monocytes (%) (Auto) 7.8 % (1.0-10.0) Eosinophils (%) (Auto) 1.6 % (0.0-3.0) Basophils (%) (Auto) 0.8 % (0.0-2.0) Sodium Level 145 MMOL/L (136-145) Potassium Level 4.3 MMOL/L (3.5-5.1) Chloride Level 109 MMOL/L (98-107) Carbon Dioxide Level 32 MMOL/L (21-32) Anion Gap 4 mmol/L (5-15) Blood Urea Nitrogen 20 mg/dL (7-18) Creatinine 1.0 MG/DL (0.55-1.30) Estimat Glomerular Filtration Rate > 60 mL/min (>60) Glucose Level 139 MG/DL (74-106) Calcium Level 7.8 MG/DL (8.5-10.1) Height (Feet): 5 Height (Inches): 6.00 Weight (Pounds): 135 Objective Vitals: reviewed, normal General Appearance: no apparent distress, non-toxic, lethargic HEENT: bilateral eye normal inspection, bilateral eye PERRL Neck: full range of motion, supple/symm/no masses Resp: chest non-tender, lungs clear, normal breath sounds, speaking full sentences Cardiovascular: regular rate, rhythm, no edema Gastrointestinal: normal bowel sounds, non tender Rectal: deferred Genitourinary: normal inspection, no CVA tenderness Musculoskeletal: back normal, gait/station normal, non-tender Lymphatic: no adenopathy David De Jesus MD Apr 09, 2020 07:26
[2020-04-09 08:00] VITALS: BP 131/63
[2020-04-09] MEDS: Cefepime HCl 2 GM in NS 55 ML IVPB SCH ×2 (08:30→21:20)
[2020-04-09] MEDS: Aspirin Baby 81mg ORAL SCH (08:30)
[2020-04-09] MEDS: Dakin's 0.125% Soln (Quarter Strength) 16oz TOPIC SCH (08:31)
[2020-04-09] MEDS: Levemir Flexpen SUBQ SCH ×2 (08:33→21:34)
[2020-04-09] MEDS ORDERED: CEFEPIME 22 GM/100 M IV (11:55)
[2020-04-09] MEDS ORDERED: VANCOMYCIN750 MG/150 IV (11:55)
[2020-04-09] MEDS ORDERED: LOVENOX10 M4 SUBQ (11:55)
[2020-04-09] MEDS ORDERED: FLAGYL500 MG ORAL (11:55)
--- NOTE | 2020-04-09 11:56 | Discharge Instructions ---
Discharge Instructions Discharge Instructions Follow up with: primary care physician in 7 days Call MD/Return to Hospital if: symptoms worsen or fail to improve Services at Discharge: physical therapy, occupational therapy, other - wound care and dressing changes of BLE Diet: other - diabetic low carbohydrate diet Activity: as tolerated Follow Up Orders Will need weekly CBC, CMP, CRP and ESR for next 6 weeks while on IV antibiotics for treatment of LLE osteomyelitis. For Congestive Heart Failure Reminder Report to your physician any weight gain of 5 pounds or more in one week. Carlton Story M.D. Apr 09, 2020 11:56
[2020-04-09 12:00] VITALS: BP 103/64
--- NOTE | 2020-04-09 14:02 | Surgery Progress Note ---
Surgery Progress Note Subjective Additional Comments no acute events improving dressings okay labs improved d/c planning with IV abx Objective Last 24 Hour Vital Signs Date Time Temp Pulse Resp B/P (MAP) Pulse Ox O2 Delivery O2 Flow Rate FiO2 04/09/20 09:00 Room Air 04/09/20 08:31 131/63 04/09/20 08:31 94 131/63 04/09/20 08:00 97.9 93 19 131/63 (85) 98 04/09/20 04:00 98.1 94 18 123/58 (79) 98 04/09/20 00:00 98.4 95 18 123/60 (81) 98 04/08/20 21:00 Room Air 04/08/20 20:00 98.4 98 19 113/58 (76) 98 04/08/20 16:00 98.4 96 18 111/60 (77) 98 I&O Intake and Output 04/08/20 04/09/20 19:00 07:00 Intake Total 1251.666 ml 350 ml Output Total 1100 ml 700 ml Balance 151.666 ml -350 ml Intake Oral 720 ml 350 ml IV Total 531.666 ml Output Urine Total 1100 ml 700 ml # Bowel Movements 1 1 Dressing: dry Wound: clean Cardiovascular: RSR Respiratory: clear Abdomen: soft, non-tender, present bowel sounds Extremities: edema, no tenderness, no cyanosis, pulses, other Laboratory Tests Test 04/08/20 20:30 04/09/20 05:09 04/09/20 06:10 04/09/20 11:22 POC Whole Blood Glucose 287 MG/DL (74-106) H 140 MG/DL (74-106) H 130 MG/DL (74-106) H White Blood Count 12.5 K/UL (4.8-10.8) H Red Blood Count 2.98 M/UL (4.20-5.40) L Hemoglobin 9.4 G/DL (12.0-16.0) L Hematocrit 26.5 % (37.0-47.0) L Mean Corpuscular Volume 89 FL (80-99) Mean Corpuscular Hemoglobin 31.4 PG (27.0-31.0) H Mean Corpuscular Hemoglobin Concent 35.4 G/DL (32.0-36.0) Red Cell Distribution Width 14.8 % (11.6-14.8) Platelet Count 391 K/UL (150-450) Mean Platelet Volume 7.0 FL (6.5-10.1) Neutrophils (%) (Auto) 62.8 % (45.0-75.0) Lymphocytes (%) (Auto) 26.9 % (20.0-45.0) Monocytes (%) (Auto) 7.8 % (1.0-10.0) Eosinophils (%) (Auto) 1.6 % (0.0-3.0) Basophils (%) (Auto) 0.8 % (0.0-2.0) Sodium Level 145 MMOL/L (136-145) Potassium Level 4.3 MMOL/L (3.5-5.1) Chloride Level 109 MMOL/L (98-107) H Carbon Dioxide Level 32 MMOL/L (21-32) Anion Gap 4 mmol/L (5-15) L Blood Urea Nitrogen 20 mg/dL (7-18) H Creatinine 1.0 MG/DL (0.55-1.30) Estimat Glomerular Filtration Rate > 60 mL/min (>60) Glucose Level 139 MG/DL (74-106) H Calcium Level 7.8 MG/DL (8.5-10.1) L Test 04/09/20 13:00 Vancomycin Level Trough 15.2 ug/mL (5.0-12.0) H Plan Problems: (1) Decubitus ulcer of heel Assessment & Plan: podiatry eval appreciated bibiana noted cont abx 1. Left foot incision and drainage with removal of all nonviable tissue. 2. Left foot deep wound culture, calcaneus. 3. Left foot bone culture, calcaneus. 4. Left foot bone biopsy, calcaneus. 5. Left foot excisional ulcer debridement of heel to the level of muscle. appreciate podiatry input cont dressings after drainage (2) Sacral decubitus ulcer (3) Sepsis Assessment & Plan: 69-year-old female multiple comorbidities presented with failure to thrive lethargic altered mental status noted to have significant leukocytosis greater than 30,000 lactic acidosis 2.3 abnormal labs A1c 11 identified to have draining bilateral heel unstageable decubitus ulcers multiple skin lesions on the lower extremities as well as a sacral decubitus ulcer as well. Patient is currently on antibiotics under work-up microbiology identified urine noted UTI. Imaging reviewed. Patient has been eating less recently but currently is eating at the bedside though does not look like she is taking much in. Treatment plan Wash sacral area daily with normal saline apply Thera honey followed by Optifoam dressing change daily and as needed saturation Wash bilateral heels daily with normal saline. Swab with Betadine unstageable necrotic eschar on bilateral heels and cover with Optifoam dressings. Change daily and as needed saturation Lower lower extremity ulcerations saw with Betadine cover with Optifoam dressing. Turn every 2 hours Offload pressure with pillows pillow on side as necessary as well as underneath calf to elevate heels Air soft mattress nutritional optimization continue IV antibiotics per infectious disease SACRUM- STAGE - UNSTAGEABLE PRESSURE ULCER MEASURES 6.0X13.0X0.2. WOUND BED WITH 80% SLOUGH AND 20% PINK GRANULATION TISSUE. NOTED FOUL ODOR RECOMMEND-CLEAN WITH SALINE. APPLY WET TO DRY DRESSINGS WITH DAKINS 0.25% DAKIN'S SOLUTION.COVER WITH OPTIFOAM DRESSING. REPLACE DRESSING DAILY. LEFT ISCHIUM-STAGE II PRESSURE ULCER MEASURES 4.5X0.5X0.2CM. PINK GRANULATION TISSUE NOTED. RECOMMEND- CLEAN WITH SALINE, PAT DRY. APPLY CALAZINE AND COVER WITH OPTIFOAM DRESSING. LEFT ANTERIOR LOW LEG-VENOUS ULCER MEASURES 8.0X2.6X0.2CM 100% YELLOW SLOUGH NOTED TO WOUND BED. RECOMMEND- CLEAN WITH SALINE, PA DRY. APPLY THERAHONEY. COVER WITH GAUZE AND SECURE WITH KERLIX. REPLACE DRESSING DAILY. LEFT HEEL- UNSTAGEABLE PRESSURE ULCER MEASURES 9.5X8.0X0.3CM. 100% MOIST BLACK ESCHAR. WITH STRONG FOUL ODOR. RECOMMEND- CLEAN WITH SALINE. APPLY WET TO DRY DRESSINGS WITH DAKINS 0.25% DAKIN'S SOLUTION. COVER WITH GAUZE, ABD PAD AND SECURE WITH KERLIX. REPLACE DAILY. RIGHT ANTERIOR LOW LEG-VENOUS ULCER MEASURES 2.5X3.0X0.2CM WITH PINK GRANULATION TISSUE. RIGHT ANTERIOR DISTAL LOW LEG -VENOUS ULCER MEASURES 1.5X0.2X0.1CM WITH PINK GRANULATION TISSUE. RECOMMEND-CLEAN WITH SALINE PAT DRY. APPLY XEROFORM GAUZE, GAUZE AND COVER WITH KERLIX. REPLACE DAILY RIGHT HEEL-DTI MEASURES 2.5X3.0CM. AREA DARK PURPLE IN COLOR AND BOGGY TO TOUCH. NO DRAINAGE NOTED. RECOMMEND- PAINT WITH CAVILON SKIN PROTECTOR, GAUZE AND WRAP WITH KERLIX. REPLACE DAILY. We will follow with recommendations thank you for letting participate patient's care Fairly numerous bubbles of soft tissue gas are seen within the subcutaneous fat and possibly the intrinsic musculature of the plantar surface of the heel. There is high STIR and decreased T1 signal within the calcaneus, and there is indistinctness of the inferior and posterior cortical margins of the calcaneus. There is some soft tissue ulceration of the plantar surface of the heel, as well as marked thinning of the subcutaneous fat overlying the calcaneal tuberosity. There is considerable edema of the plantar surface subcutaneous fat. There is also edema of the subcutaneous fat of the lateral and medial ankle. No focal discrete fluid collection to suggest drainable abscess demonstrated. Impression: Evidence of ulceration overlying the calcaneal tuberosity Soft tissue gas within the heel, as described. This may represent penetration the above, but is worrisome for infection with a gas-forming organism Abnormal signal within the posterior and mid calcaneus, highly suspicious for acute osteomyelitis (4) UTI (urinary tract infection) (5) Hyperkalemia (6) Leukocytosis (7) Altered mental status (8) Diabetes mellitus out of control (9) Acute on chronic renal failure (10) NSTEMI (non-ST elevated myocardial infarction) (11) High anion gap metabolic acidosis Joseph Alamo Apr 09, 2020 14:02
[2020-04-09 16:00] VITALS: BP 123/54
--- NOTE | 2020-04-09 17:51 | Neurology Progress Note ---
Interim History Interim History ROS Limited/Unobtainable: No Interim History no new deficits Objective Physical Exam Last Vital Signs Date Time Temp Pulse Resp B/P (MAP) Pulse Ox O2 Delivery O2 Flow Rate FiO2 04/09/20 16:00 98.3 93 19 123/54 (77) 98 04/09/20 09:00 Room Air 04/07/20 10:55 3 04/01/20 06:58 21 Laboratory Tests Test 04/08/20 20:30 04/09/20 05:09 04/09/20 06:10 04/09/20 11:22 POC Whole Blood Glucose 287 MG/DL (74-106) H 140 MG/DL (74-106) H 130 MG/DL (74-106) H White Blood Count 12.5 K/UL (4.8-10.8) H Red Blood Count 2.98 M/UL (4.20-5.40) L Hemoglobin 9.4 G/DL (12.0-16.0) L Hematocrit 26.5 % (37.0-47.0) L Mean Corpuscular Volume 89 FL (80-99) Mean Corpuscular Hemoglobin 31.4 PG (27.0-31.0) H Mean Corpuscular Hemoglobin Concent 35.4 G/DL (32.0-36.0) Red Cell Distribution Width 14.8 % (11.6-14.8) Platelet Count 391 K/UL (150-450) Mean Platelet Volume 7.0 FL (6.5-10.1) Neutrophils (%) (Auto) 62.8 % (45.0-75.0) Lymphocytes (%) (Auto) 26.9 % (20.0-45.0) Monocytes (%) (Auto) 7.8 % (1.0-10.0) Eosinophils (%) (Auto) 1.6 % (0.0-3.0) Basophils (%) (Auto) 0.8 % (0.0-2.0) Sodium Level 145 MMOL/L (136-145) Potassium Level 4.3 MMOL/L (3.5-5.1) Chloride Level 109 MMOL/L (98-107) H Carbon Dioxide Level 32 MMOL/L (21-32) Anion Gap 4 mmol/L (5-15) L Blood Urea Nitrogen 20 mg/dL (7-18) H Creatinine 1.0 MG/DL (0.55-1.30) Estimat Glomerular Filtration Rate > 60 mL/min (>60) Glucose Level 139 MG/DL (74-106) H Calcium Level 7.8 MG/DL (8.5-10.1) L Test 04/09/20 13:00 04/09/20 16:56 Vancomycin Level Trough 15.2 ug/mL (5.0-12.0) H POC Whole Blood Glucose 287 MG/DL (74-106) H General: well nourished Head: normocophalic Neck: no rigidity Neurologic Exam Mental Status: awake Objective confused, follows midline oriened to self LE weakness and numbness Impression/Recommendations Problems: (1) Sepsis (2) UTI (urinary tract infection) (3) Hyperkalemia (4) Leukocytosis (5) Altered mental status (6) Diabetes mellitus out of control (7) Acute on chronic renal failure (8) NSTEMI (non-ST elevated myocardial infarction) (9) High anion gap metabolic acidosis (10) Sacral decubitus ulcer (11) Decubitus ulcer of heel Diagnostic Impression acute encephalopathy, likely metabolic, fluctuating. LE weakness Cellulitis. Diabetes Delirium precautions ordered Cont atb PT as able Thee Lee MD Apr 09, 2020 17:51
--- NOTE | 2020-04-09 18:27 | General Progress Note ---
Subjective Date patient seen: Apr 09, 2020 ROS Limited/Unobtainable: No Allergies: Coded Allergies: PENICILLINS (Verified Allergy, Unknown, 12/05/17) Subjective Constitutional: Denies: no symptoms, chills, diaphoresis, fever, malaise, weakness, other HEENT: Denies: no symptoms, eye pain, blurred vision, tearing, double vision, ear pain, ear discharge, nose pain, nose congestion, throat pain, throat swelling, mouth pain, mouth swelling, other Cardiovascular: Denies: no symptoms, chest pain, edema, irregular heart rate, lightheadedness, palpitations, syncope, other Respiratory: Denies: no symptoms, cough, orthopnea, shortness of breath, SOB with excertion, SOB at rest, sputum, stridor, wheezing, other Gastrointestinal/Abdominal: Denies: no symptoms, abdomen distended, abdominal pain, black stools, tarry stools, blood in stool, constipated, diarrhea, difficulty swallowing, nausea, poor appetite, poor fluid intake, rectal bleeding, vomiting, other Genitourinary: Denies: no symptoms, burning, discharge, frequency, flank pain, hematuria, incontinence, pain, urgency, other Neurologic/Psychiatric: Denies: no symptoms, anxiety, depressed, emotional problems, headache, numbness, paresthesia, pre-existing deficit, seizure, tingling, tremors, weakness, other Endocrine: Denies: no symptoms, excessive sweating, flushing, intolerance to cold, intolerance to heat, increased hunger, increased thirst, increased urine, unexplained weight gain, unexplained weight loss, other Hematologic/Lymphatic: Denies: no symptoms, anemia, easy bleeding, easy bruising, other Interval events: no acute events overnight Today patient resting comfortably in bed, no new complaints. Denies pain, fever, chills, chest pain, SOB, N/V. Discussed with patient regarding SNF placement and she is amenable. Objective Last 24 Hour Vital Signs Date Time Temp Pulse Resp B/P (MAP) Pulse Ox O2 Delivery O2 Flow Rate FiO2 04/09/20 16:00 98.3 93 19 123/54 (77) 98 04/09/20 12:00 98.1 94 17 103/64 (77) 96 04/09/20 09:00 Room Air 04/09/20 08:31 131/63 04/09/20 08:31 94 131/63 04/09/20 08:00 97.9 93 19 131/63 (85) 98 04/09/20 04:00 98.1 94 18 123/58 (79) 98 04/09/20 00:00 98.4 95 18 123/60 (81) 98 04/08/20 21:00 Room Air 04/08/20 20:00 98.4 98 19 113/58 (76) 98 Intake and Output 04/08/20 04/09/20 19:00 07:00 Intake Total 1251.666 ml 350 ml Output Total 1100 ml 700 ml Balance 151.666 ml -350 ml Intake Oral 720 ml 350 ml IV Total 531.666 ml Output Urine Total 1100 ml 700 ml # Bowel Movements 1 1 Laboratory Tests 04/08/20 20:30: POC Whole Blood Glucose 287H 04/09/20 05:09: POC Whole Blood Glucose 140H 04/09/20 06:10: White Blood Count 12.5H, Red Blood Count 2.98L, Hemoglobin 9.4L, Hematocrit 26.5L, Mean Corpuscular Volume 89, Mean Corpuscular Hemoglobin 31.4H, Mean Corpuscular Hemoglobin Concent 35.4, Red Cell Distribution Width 14.8, Platelet Count 391, Mean Platelet Volume 7.0, Neutrophils (%) (Auto) 62.8, Lymphocytes (%) (Auto) 26.9, Monocytes (%) (Auto) 7.8, Eosinophils (%) (Auto) 1.6, Basophils (%) (Auto) 0.8, Sodium Level 145, Potassium Level 4.3, Chloride Level 109H, Carbon Dioxide Level 32, Anion Gap 4L, Blood Urea Nitrogen 20H, Creatinine 1.0, Estimat Glomerular Filtration Rate > 60, Glucose Level 139H, Calcium Level 7.8L 04/09/20 11:22: POC Whole Blood Glucose 130H 04/09/20 13:00: Vancomycin Level Trough 15.2H 04/09/20 16:56: POC Whole Blood Glucose 287H Height (Feet): 5 Height (Inches): 6.00 Weight (Pounds): 135 Objective General Appearance: WD/WN, no apparent distress, awake, conversant EENT: normal ENT inspection Neck: non-tender, supple, normal inspection Cardiovascular: normal rate, regular rhythm, no gallop/murmur Respiratory/Chest: chest wall non-tender, lungs clear, normal breath sounds, no respiratory distress, no accessory muscle use Abdomen: normal bowel sounds, non tender, soft, no organomegaly Extremities: other - BLE wrapped in bandages, non tender to palpation Edema: no edema noted Arm (L), no edema noted Arm (R), no edema noted Leg (L), no edema noted Leg (R) 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 grossly normal, alert, normal mood/affect Skin: normal pigmentation, warm/dry Assessment/Plan Assessment/Plan: A: #Acute encephalopathy likely secondary to infectious etiology versus toxic metabolicImproved #Sepsis with UTI, cellulitis, foot ulcer source - improving #Osteomyelitis of the left lower extremity - improving #UTI #Left lower extremity heel ulcer w/ possible osteomyelitis #Left lower extremity cellulitis #Bilateral lower extremity venous dermatitis #Bilateral lower extremity edema #Lactic acidosis #Diabetes mellitus uncontrolled; A1c 11.2 #Essential hypertension P: continue broad spec antibiotics with cefepime/Flagyl, now changed per ID - PICC line inserted for prison antibiotic treatment Bone culture showing Staph aureus and GNB -Inflammatory markers elevated MRI of left lower extremity concerning for osteomyelitis - s/p wound debridement with podiatry 04/07/2020 continue 6 units of Levemir in the day, continue 15 units at night continue premeal NovoLog from 5 to 9 units Continue moderate insulin sliding scale, reassess daily insulin requirements Blood glucose goal is 140-180 Hypoglycemia protocols Continue home Lipitor, amlodipine, lisinopril Wound consult Consult Dr. Alamo, general surgery, recs appreciated Consult Dr. Ernst, ID, recs appreciated Consult Dr. Lee, neurology, recs appreciated CM Code: Full, will need to discuss further with family or patient as when she gets better Diet: Diabetic Fluids: None DVT prophylaxis: Lovenox 40 mg daily Dispo: DC to SNF for PT/OT and 6 weeks IV abx, pending SNF placement currently Time spent on this encounter was 36 minutes which included 20 minutes of counseling and care coordination. I discussed with the nurse at bedside. Time of note may not reflect time patient was seen. Carlton Story M.D. Apr 09, 2020 18:27
[2020-04-09 20:00] VITALS: BP 130/55
[2020-04-09] MEDS: Atorvastatin 80mg tab ORAL SCH (21:19)
[2020-04-09] MEDS: Enoxaparin 40mg Inj SUBQ SCH (21:19)
[2020-04-09] MEDS: Dyna-Hex 2% Top Sol 2oz TOPIC SCH (21:20)
[2020-04-10] VITALS: BP 150/70
[2020-04-10] MEDS: Vancomycin 750mg/NS 275ml IVPB SCH ×4 (01:55→13:51)
[2020-04-10 04:00] VITALS: BP 126/63
[2020-04-10] MEDS: metroNIDAZOLE 500mg tab ORAL SCH ×3 (05:46→21:17)
[2020-04-10] MEDS: NovoLOG Insulin Flexpen SUBQ SCH ×7 (05:54→22:25)
[2020-04-10 06:28] LABS: BASOPHILS % (AUTO) 0.9 % (0.0-2.0); EOSINOPHILS % (AUTO) 1.3 % (0.0-3.0); HEMATOCRIT 24.2 % (37.0-47.0); HEMOGLOBIN 8.5 G/DL (12.0-16.0); MEAN CORPUSCULAR VOLUME 88 FL (80-99); MONOCYTES % (AUTO) 5.7 % (1.0-10.0); NEUTROPHILS % (AUTO) 63.1 % (45.0-75.0); PLATELET COUNT 365 K/UL (150-450); RED BLOOD COUNT 2.76 M/UL (4.20-5.40); RED CELL DISTRIBUTION WIDTH 14.5 % (11.6-14.8); WHITE BLOOD COUNT 12.2 K/UL (4.8-10.8)
[2020-04-10 06:48] LABS: ANION GAP 4 mmol/L (5-15); BLOOD UREA NITROGEN 20 mg/dL (7-18); CALCIUM 7.6 MG/DL (8.5-10.1); CARBON DIOXIDE 31 MMOL/L (21-32); CHLORIDE 111 MMOL/L (98-107); CREATININE 0.7 MG/DL (0.55-1.30); POTASSIUM 3.5 MMOL/L (3.5-5.1); SODIUM 145 MMOL/L (136-145)
[2020-04-10 08:00] VITALS: BP 125/57
[2020-04-10] MEDS: Cefepime HCl 2 GM in NS 55 ML IVPB SCH ×2 (09:25→21:02)
[2020-04-10] MEDS: Aspirin Baby 81mg ORAL SCH (09:27)
[2020-04-10] MEDS: Levemir Flexpen SUBQ SCH ×2 (09:37→21:31)
[2020-04-10 12:00] VITALS: BP 123/51
[2020-04-10] MEDS: Dakin's 0.125% Soln (Quarter Strength) 16oz TOPIC SCH (13:01)
--- NOTE | 2020-04-10 14:16 | Infectious Diseases Prog Note ---
Assessment/Plan Assessment/Plan ASSESSMENT AND PLAN: 1. 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 Hypertension, diabetes - continue treatment 3. Wounds. 4. Weakness. 5. Encephalopathy. 6. Allergic to penicillin, tolerates Zosyn. 7. Family history is noncontributory. 8. MAR was noted. 9. Case discussed with RN. 10. Continue treatment per primary consultants. Subjective Constitutional: Denies: fever HEENT: Denies: congestion Respiratory: Denies: shortness of breath Cardiovascular: Denies: chest pain Gastrointestinal/Abdominal: Denies: nausea Genitourinary: Denies: dysuria, hematuria Psychiatric: Denies: depression Skin: Denies: rash Hematologic: Denies: bleeding Musculoskeletal: Denies: pain Allergies: Coded Allergies: PENICILLINS (Verified Allergy, Unknown, 12/05/17) Objective Last 24 Hour Vital Signs Date Time Temp Pulse Resp B/P (MAP) Pulse Ox O2 Delivery O2 Flow Rate FiO2 04/10/20 12:00 97.9 95 19 123/51 (75) 95 04/10/20 10:09 Room Air 04/10/20 09:28 89 130/60 04/10/20 09:27 130/60 04/10/20 08:00 97.7 86 18 125/57 (79) 95 04/10/20 04:00 98.1 90 18 126/63 (84) 96 04/10/20 00:00 98.2 107 19 150/70 (96) 97 04/09/20 21:00 Room Air 04/09/20 20:00 98.1 103 19 130/55 (80) 97 04/09/20 16:00 98.3 93 19 123/54 (77) 98 Height (Feet): 5 Height (Inches): 6.00 Weight (Pounds): 135 General Appearance: no acute distress HEENT: normocephalic, atraumatic, anicteric, mucous membranes moist Respiratory/Chest: lungs clear, normal breath sounds, no respiratory distress, no accessory muscle use Cardiovascular: normal rate, regular rhythm, no gallop/murmur, no JVD Abdomen: normal bowel sounds, soft, non tender, no organomegaly, non distended Genitourinary: other - no alaniz Extremities: other - left foot covered Skin: no rash Neurologic/Psychiatric: 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 Within these limitations: No definite acute fracture is appreciated. Lisfranc alignment of the foot appears grossly maintained. There is a suspected ulceration underlying the heel with possible subcutaneous gas. Correlation with physical exam recommended as soft tissue infection is suspected. No discrete changes noted in the adjacent calcaneus to suggest acute osteomyelitis however more sensitive evaluation can be made with MRI. Chest x-ray - 03/31/20 - Procedure: XRAY Chest 1v Indication: Altered mental status, cough Technique: XRAY Chest 1v Comparison: 12/05/2017 Findings: Heart size and mediastinal contours stable. There is no definite focal airspace consolidation. Some peribronchial thickening is seen. No pleural effusion or pneumothorax. No acute osseous abnormality. IMPRESSION: Peribronchial thickening which may suggest small airway disease/bronchitis. Correlate clinically. No focal consolidation. MRI left foot: Findings: Fairly numerous bubbles of soft tissue gas are seen within the subcutaneous fat and possibly the intrinsic musculature of the plantar surface of the heel. There is high STIR and decreased T1 signal within the calcaneus, and there is indistinctness of the inferior and posterior cortical margins of the calcaneus. There is some soft tissue ulceration of the plantar surface of the heel, as well as marked thinning of the subcutaneous fat overlying the calcaneal tuberosity. There is considerable edema of the plantar surface subcutaneous fat. There is also edema of the subcutaneous fat of the lateral and medial ankle. No focal discrete fluid collection to suggest drainable abscess demonstrated. Impression: Evidence of ulceration overlying the calcaneal tuberosity Soft tissue gas within the heel, as described. This may represent penetration the above, but is worrisome for infection with a gas-forming organism Abnormal signal within the posterior and mid calcaneus, highly suspicious for acute osteomyelitis Microbiology Date/Time Source Procedure Growth Status 04/07/20 09:45 Foot Left Gram Stain - Final Resulted 04/07/20 09:45 Aerobic Culture - Final Proteus Penneri Staphylococcus Aureus Staphylococcus Sp Coag Neg Resulted 04/07/20 09:45 Anaerobic Culture - Preliminary Bacteroides Fragilis Resulted 04/07/20 09:45 Bone Marrow Gram Stain - Final Resulted 04/07/20 09:45 Bone Marrow Bone Marrow Culture - Preliminary NO GROWTH AFTER 48 HOURS Resulted 04/03/20 18:02 Nose MRSA Culture - Final Staphylococcus Aureus - Mrsa Complete 03/31/20 16:51 Urine,Clean Catch Urine Culture - Final Escherichia Coli Complete Laboratory Tests Test 04/09/20 16:56 04/09/20 21:26 04/09/20 21:28 04/10/20 04:20 POC Whole Blood Glucose 287 MG/DL (74-106) H 414 MG/DL (74-106) H 407 MG/DL (74-106) H White Blood Count 12.2 K/UL (4.8-10.8) H Red Blood Count 2.76 M/UL (4.20-5.40) L Hemoglobin 8.5 G/DL (12.0-16.0) L Hematocrit 24.2 % (37.0-47.0) L Mean Corpuscular Volume 88 FL (80-99) Mean Corpuscular Hemoglobin 30.9 PG (27.0-31.0) Mean Corpuscular Hemoglobin Concent 35.2 G/DL (32.0-36.0) Red Cell Distribution Width 14.5 % (11.6-14.8) Platelet Count 365 K/UL (150-450) Mean Platelet Volume 7.1 FL (6.5-10.1) Neutrophils (%) (Auto) 63.1 % (45.0-75.0) Lymphocytes (%) (Auto) 29.0 % (20.0-45.0) Monocytes (%) (Auto) 5.7 % (1.0-10.0) Eosinophils (%) (Auto) 1.3 % (0.0-3.0) Basophils (%) (Auto) 0.9 % (0.0-2.0) Sodium Level 145 MMOL/L (136-145) Potassium Level 3.5 MMOL/L (3.5-5.1) Chloride Level 111 MMOL/L (98-107) H Carbon Dioxide Level 31 MMOL/L (21-32) Anion Gap 4 mmol/L (5-15) L Blood Urea Nitrogen 20 mg/dL (7-18) H Creatinine 0.7 MG/DL (0.55-1.30) Estimat Glomerular Filtration Rate > 60 mL/min (>60) Glucose Level 144 MG/DL (74-106) H Calcium Level 7.6 MG/DL (8.5-10.1) L Test 04/10/20 05:53 04/10/20 09:34 04/10/20 11:31 POC Whole Blood Glucose 132 MG/DL (74-106) H 102 MG/DL (74-106) 215 MG/DL (74-106) H Current Medications Medications (Trade) Dose Ordered Sig/Enrike Route PRN Reason Start Time Stop Time Status Last Admin Dose Admin Acetaminophen (Tylenol) 650 mg Q4H PRN ORAL Temp >100.5 03/31/20 19:00 04/30/20 18:59 04/01/20 13:05 Acetaminophen (Tylenol) 650 mg Q4H PRN ORAL Mild Pain (Pain Scale 1-3) 03/31/20 19:00 04/30/20 18:59 Al Hydroxide/Mg Hydroxide (Mylanta II) 30 ml Q6H PRN ORAL dyspepsia 03/31/20 19:00 04/30/20 18:59 Amlodipine Besylate (Norvasc) 5 mg DAILY ORAL 04/01/20 09:00 05/01/20 08:59 04/10/20 09:28 Aspirin (ASA) 81 mg DAILY ORAL 04/01/20 09:00 05/16/20 08:59 04/10/20 09:27 Atorvastatin Calcium (Lipitor) 80 mg BEDTIME ORAL 03/31/20 21:00 06/29/20 20:59 04/09/20 21:19 Benazepril HCl (Lotensin) 40 mg DAILY ORAL 04/01/20 09:00 05/01/20 08:59 04/10/20 09:27 Cefepime HCl 2 gm/ Sodium Chloride 55 ml @ 110 mls/hr EVERY 12 HOURS IVPB 04/08/20 21:00 04/15/20 20:59 04/10/20 09:25 Chlorhexidine Gluconate (Holli-Hex 2%) 1 applic DAILY@1999 TOPIC 04/07/20 20:00 07/06/20 19:59 04/09/20 21:20 Dextrose (Dextrose 50%) 25 ml Q30M PRN IV Hypoglycemia 03/31/20 20:30 06/29/20 20:29 04/06/20 06:30 Dextrose (Dextrose 50%) 50 ml Q30M PRN IV Hypoglycemia 03/31/20 20:30 06/29/20 20:29 Enoxaparin Sodium (Lovenox) 40 mg Q24H SUBQ 03/31/20 21:00 06/29/20 20:59 04/09/20 21:19 Insulin Aspart (NovoLOG) BEFORE MEALS AND HS SUBQ 03/31/20 21:00 06/29/20 20:59 04/10/20 12:56 Insulin Aspart (NovoLOG) 9 units NOVOTIAC SUBQ 04/05/20 11:50 07/02/20 11:49 04/10/20 06:43 Insulin Detemir (Levemir) 6 units DAILY SUBQ 04/05/20 09:00 07/04/20 08:59 04/10/20 09:37 Insulin Detemir (Levemir) 15 units QHS SUBQ 04/04/20 21:00 06/29/20 21:59 04/09/20 21:34 Magnesium Hydroxide (Mom) 30 ml HSPRN PRN ORAL Constipation 03/31/20 19:00 04/30/20 18:59 Metronidazole (Flagyl) 500 mg Q8HR ORAL 04/08/20 22:00 04/15/20 21:59 04/10/20 13:57 Ondansetron HCl (Zofran) 4 mg Q6H PRN IVP Nausea & Vomiting 03/31/20 19:00 04/30/20 18:59 Sodium Hypochlorite (Dakin's Quarter Strength) 1 applic DAILY TOPIC 04/03/20 09:00 05/03/20 08:59 04/10/20 13:01 Vancomycin HCl ([facility] pharmacy to dose) 1 ea DAILY PRN MISC Per rx protocol 04/06/20 16:15 05/06/20 16:14 Vancomycin HCl 750 mg/Sodium Chloride 275 ml @ 183.333 mls/hr Q12HR@0200,1400 IVPB 04/08/20 14:00 04/13/20 13:59 04/10/20 13:51 Elyse Leung MD Apr 10, 2020 14:16
--- NOTE | 2020-04-10 14:44 | Surgery Progress Note ---
Surgery Progress Note Subjective Symptoms: improved, tolerating diet, passing flatus, BM Additional Comments dressign going well d/c planning no complaints Objective Last 24 Hour Vital Signs Date Time Temp Pulse Resp B/P (MAP) Pulse Ox O2 Delivery O2 Flow Rate FiO2 04/10/20 12:00 97.9 95 19 123/51 (75) 95 04/10/20 10:09 Room Air 04/10/20 09:28 89 130/60 04/10/20 09:27 130/60 04/10/20 08:00 97.7 86 18 125/57 (79) 95 04/10/20 04:00 98.1 90 18 126/63 (84) 96 04/10/20 00:00 98.2 107 19 150/70 (96) 97 04/09/20 21:00 Room Air 04/09/20 20:00 98.1 103 19 130/55 (80) 97 04/09/20 16:00 98.3 93 19 123/54 (77) 98 I&O Intake and Output 04/09/20 04/10/20 19:00 07:00 Intake Total 1080 ml 330.000 ml Output Total 600 ml 500 ml Balance 480 ml -170.000 ml Intake Oral 1080 ml IV Total 330.000 ml Output Urine Total 600 ml 500 ml # Voids 4 # Bowel Movements 1 4 Dressing: dry Wound: clean Cardiovascular: RSR Respiratory: clear Abdomen: soft, non-tender, present bowel sounds Extremities: no edema, no tenderness, no cyanosis, other Laboratory Tests Test 04/09/20 16:56 04/09/20 21:26 04/09/20 21:28 04/10/20 04:20 POC Whole Blood Glucose 287 MG/DL (74-106) H 414 MG/DL (74-106) H 407 MG/DL (74-106) H White Blood Count 12.2 K/UL (4.8-10.8) H Red Blood Count 2.76 M/UL (4.20-5.40) L Hemoglobin 8.5 G/DL (12.0-16.0) L Hematocrit 24.2 % (37.0-47.0) L Mean Corpuscular Volume 88 FL (80-99) Mean Corpuscular Hemoglobin 30.9 PG (27.0-31.0) Mean Corpuscular Hemoglobin Concent 35.2 G/DL (32.0-36.0) Red Cell Distribution Width 14.5 % (11.6-14.8) Platelet Count 365 K/UL (150-450) Mean Platelet Volume 7.1 FL (6.5-10.1) Neutrophils (%) (Auto) 63.1 % (45.0-75.0) Lymphocytes (%) (Auto) 29.0 % (20.0-45.0) Monocytes (%) (Auto) 5.7 % (1.0-10.0) Eosinophils (%) (Auto) 1.3 % (0.0-3.0) Basophils (%) (Auto) 0.9 % (0.0-2.0) Sodium Level 145 MMOL/L (136-145) Potassium Level 3.5 MMOL/L (3.5-5.1) Chloride Level 111 MMOL/L (98-107) H Carbon Dioxide Level 31 MMOL/L (21-32) Anion Gap 4 mmol/L (5-15) L Blood Urea Nitrogen 20 mg/dL (7-18) H Creatinine 0.7 MG/DL (0.55-1.30) Estimat Glomerular Filtration Rate > 60 mL/min (>60) Glucose Level 144 MG/DL (74-106) H Calcium Level 7.6 MG/DL (8.5-10.1) L Test 04/10/20 05:53 04/10/20 09:34 04/10/20 11:31 POC Whole Blood Glucose 132 MG/DL (74-106) H 102 MG/DL (74-106) 215 MG/DL (74-106) H Plan Problems: (1) Decubitus ulcer of heel Assessment & Plan: podiatry eval appreciated bibiana noted cont abx 1. Left foot incision and drainage with removal of all nonviable tissue. 2. Left foot deep wound culture, calcaneus. 3. Left foot bone culture, calcaneus. 4. Left foot bone biopsy, calcaneus. 5. Left foot excisional ulcer debridement of heel to the level of muscle. appreciate podiatry input cont dressings after drainage (2) Sacral decubitus ulcer (3) Sepsis Assessment & Plan: 69-year-old female multiple comorbidities presented with failure to thrive lethargic altered mental status noted to have significant leukocytosis greater than 30,000 lactic acidosis 2.3 abnormal labs A1c 11 identified to have draining bilateral heel unstageable decubitus ulcers multiple skin lesions on the lower extremities as well as a sacral decubitus ulcer as well. Patient is currently on antibiotics under work-up microbiology identified urine noted UTI. Imaging reviewed. Patient has been eating less recently but currently is eating at the bedside though does not look like she is taking much in. Treatment plan Wash sacral area daily with normal saline apply Thera honey followed by Optifoam dressing change daily and as needed saturation Wash bilateral heels daily with normal saline. Swab with Betadine unstageable necrotic eschar on bilateral heels and cover with Optifoam dressings. Change daily and as needed saturation Lower lower extremity ulcerations saw with Betadine cover with Optifoam dressing. Turn every 2 hours Offload pressure with pillows pillow on side as necessary as well as underneath calf to elevate heels Air soft mattress nutritional optimization continue IV antibiotics per infectious disease SACRUM- STAGE - UNSTAGEABLE PRESSURE ULCER MEASURES 6.0X13.0X0.2. WOUND BED WITH 80% SLOUGH AND 20% PINK GRANULATION TISSUE. NOTED FOUL ODOR RECOMMEND-CLEAN WITH SALINE. APPLY WET TO DRY DRESSINGS WITH DAKINS 0.25% DAKIN'S SOLUTION.COVER WITH OPTIFOAM DRESSING. REPLACE DRESSING DAILY. LEFT ISCHIUM-STAGE II PRESSURE ULCER MEASURES 4.5X0.5X0.2CM. PINK GRANULATION TISSUE NOTED. RECOMMEND- CLEAN WITH SALINE, PAT DRY. APPLY CALAZINE AND COVER WITH OPTIFOAM DRESSING. LEFT ANTERIOR LOW LEG-VENOUS ULCER MEASURES 8.0X2.6X0.2CM 100% YELLOW SLOUGH NOTED TO WOUND BED. RECOMMEND- CLEAN WITH SALINE, PA DRY. APPLY THERAHONEY. COVER WITH GAUZE AND SECURE WITH KERLIX. REPLACE DRESSING DAILY. LEFT HEEL- UNSTAGEABLE PRESSURE ULCER MEASURES 9.5X8.0X0.3CM. 100% MOIST BLACK ESCHAR. WITH STRONG FOUL ODOR. RECOMMEND- CLEAN WITH SALINE. APPLY WET TO DRY DRESSINGS WITH DAKINS 0.25% DAKIN'S SOLUTION. COVER WITH GAUZE, ABD PAD AND SECURE WITH KERLIX. REPLACE DAILY. RIGHT ANTERIOR LOW LEG-VENOUS ULCER MEASURES 2.5X3.0X0.2CM WITH PINK GRANULATION TISSUE. RIGHT ANTERIOR DISTAL LOW LEG -VENOUS ULCER MEASURES 1.5X0.2X0.1CM WITH PINK GRANULATION TISSUE. RECOMMEND-CLEAN WITH SALINE PAT DRY. APPLY XEROFORM GAUZE, GAUZE AND COVER WITH KERLIX. REPLACE DAILY RIGHT HEEL-DTI MEASURES 2.5X3.0CM. AREA DARK PURPLE IN COLOR AND BOGGY TO TOUCH. NO DRAINAGE NOTED. RECOMMEND- PAINT WITH CAVILON SKIN PROTECTOR, GAUZE AND WRAP WITH KERLIX. REPLACE DAILY. We will follow with recommendations thank you for letting participate patient's care Fairly numerous bubbles of soft tissue gas are seen within the subcutaneous fat and possibly the intrinsic musculature of the plantar surface of the heel. There is high STIR and decreased T1 signal within the calcaneus, and there is indistinctness of the inferior and posterior cortical margins of the calcaneus. There is some soft tissue ulceration of the plantar surface of the heel, as well as marked thinning of the subcutaneous fat overlying the calcaneal tuberosity. There is considerable edema of the plantar surface subcutaneous fat. There is also edema of the subcutaneous fat of the lateral and medial ankle. No focal discrete fluid collection to suggest drainable abscess demonstrated. Impression: Evidence of ulceration overlying the calcaneal tuberosity Soft tissue gas within the heel, as described. This may represent penetration the above, but is worrisome for infection with a gas-forming organism Abnormal signal within the posterior and mid calcaneus, highly suspicious for acute osteomyelitis (4) UTI (urinary tract infection) (5) Hyperkalemia (6) Leukocytosis (7) Altered mental status (8) Diabetes mellitus out of control (9) Acute on chronic renal failure (10) NSTEMI (non-ST elevated myocardial infarction) (11) High anion gap metabolic acidosis Joseph Alamo Apr 10, 2020 14:44
[2020-04-10 16:00] VITALS: BP 135/70
[2020-04-10 20:00] VITALS: BP 122/55
[2020-04-10] MEDS: Dyna-Hex 2% Top Sol 2oz TOPIC SCH (20:00)
--- NOTE | 2020-04-10 20:43 | General Progress Note ---
Subjective Date patient seen: Apr 10, 2020 ROS Limited/Unobtainable: No Allergies: Coded Allergies: PENICILLINS (Verified Allergy, Unknown, 12/05/17) Subjective Constitutional: Denies: no symptoms, chills, diaphoresis, fever, malaise, weakness, other HEENT: Denies: no symptoms, eye pain, blurred vision, tearing, double vision, ear pain, ear discharge, nose pain, nose congestion, throat pain, throat swelling, mouth pain, mouth swelling, other Cardiovascular: Denies: no symptoms, chest pain, edema, irregular heart rate, lightheadedness, palpitations, syncope, other Respiratory: Denies: no symptoms, cough, orthopnea, shortness of breath, SOB with excertion, SOB at rest, sputum, stridor, wheezing, other Gastrointestinal/Abdominal: Denies: no symptoms, abdomen distended, abdominal pain, black stools, tarry stools, blood in stool, constipated, diarrhea, difficulty swallowing, nausea, poor appetite, poor fluid intake, rectal bleeding, vomiting, other Genitourinary: Denies: no symptoms, burning, discharge, frequency, flank pain, hematuria, incontinence, pain, urgency, other Neurologic/Psychiatric: Denies: no symptoms, anxiety, depressed, emotional problems, headache, numbness, paresthesia, pre-existing deficit, seizure, tingling, tremors, weakness, other Endocrine: Denies: no symptoms, excessive sweating, flushing, intolerance to cold, intolerance to heat, increased hunger, increased thirst, increased urine, unexplained weight gain, unexplained weight loss, other Hematologic/Lymphatic: Denies: no symptoms, anemia, easy bleeding, easy bruising, other Interval events: no acute events overnight Today, patient laying in bed comfortable without complaints. Denies pain, fever, chills, chest pain, SOB, N/V. Still pending SNF placement. Objective Last 24 Hour Vital Signs Date Time Temp Pulse Resp B/P (MAP) Pulse Ox O2 Delivery O2 Flow Rate FiO2 04/10/20 16:00 98.2 93 18 135/70 (91) 98 04/10/20 12:00 97.9 95 19 123/51 (75) 95 04/10/20 10:09 Room Air 04/10/20 09:28 89 130/60 04/10/20 09:27 130/60 04/10/20 08:00 97.7 86 18 125/57 (79) 95 04/10/20 04:00 98.1 90 18 126/63 (84) 96 04/10/20 00:00 98.2 107 19 150/70 (96) 97 04/09/20 21:00 Room Air Intake and Output 04/09/20 04/10/20 19:00 07:00 Intake Total 1080 ml 330.000 ml Output Total 600 ml 500 ml Balance 480 ml -170.000 ml Intake Oral 1080 ml IV Total 330.000 ml Output Urine Total 600 ml 500 ml # Voids 4 # Bowel Movements 1 4 Laboratory Tests 04/09/20 21:26: POC Whole Blood Glucose 414H 04/09/20 21:28: POC Whole Blood Glucose 407H 04/10/20 04:20: White Blood Count 12.2H, Red Blood Count 2.76L, Hemoglobin 8.5L, Hematocrit 24.2L, Mean Corpuscular Volume 88, Mean Corpuscular Hemoglobin 30.9, Mean Corpuscular Hemoglobin Concent 35.2, Red Cell Distribution Width 14.5, Platelet Count 365, Mean Platelet Volume 7.1, Neutrophils (%) (Auto) 63.1, Lymphocytes (%) (Auto) 29.0, Monocytes (%) (Auto) 5.7, Eosinophils (%) (Auto) 1.3, Basophils (%) (Auto) 0.9, Sodium Level 145, Potassium Level 3.5, Chloride Level 111H, Carbon Dioxide Level 31, Anion Gap 4L, Blood Urea Nitrogen 20H, Creatinine 0.7, Estimat Glomerular Filtration Rate > 60, Glucose Level 144H, Calcium Level 7.6L 04/10/20 05:53: POC Whole Blood Glucose 132H 04/10/20 09:34: POC Whole Blood Glucose 102 04/10/20 11:31: POC Whole Blood Glucose 215H 04/10/20 17:13: POC Whole Blood Glucose [Pending] Height (Feet): 5 Height (Inches): 6.00 Weight (Pounds): 135 Objective General Appearance: WD/WN, no apparent distress, awake, conversant EENT: normal ENT inspection Neck: non-tender, supple, normal inspection Cardiovascular: normal rate, regular rhythm, no gallop/murmur Respiratory/Chest: chest wall non-tender, lungs clear, normal breath sounds, no respiratory distress, no accessory muscle use Abdomen: normal bowel sounds, non tender, soft, no organomegaly Extremities: other - BLE wrapped in bandages, non tender to palpation Edema: no edema noted Arm (L), no edema noted Arm (R), no edema noted Leg (L), no edema noted Leg (R) 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, alert, normal mood/affect Skin: normal pigmentation, warm/dry Assessment/Plan Assessment/Plan: A: #Acute encephalopathy likely secondary to infectious etiology versus toxic metabolicImproved #Sepsis with UTI, cellulitis, foot ulcer source - improving #Osteomyelitis of the left lower extremity - improving #UTI #Left lower extremity heel ulcer w/ possible osteomyelitis #Left lower extremity cellulitis #Bilateral lower extremity venous dermatitis #Bilateral lower extremity edema #Lactic acidosis #Diabetes mellitus uncontrolled; A1c 11.2 #Essential hypertension P: continue broad spec antibiotics with cefepime/Flagyl, now changed per ID - Just before discharge today, patient pulled out her PICC line. Will need to be replaced prior to discharge. Bone culture showing Staph aureus and Proteus, Bacteroides -Inflammatory markers elevated MRI of left lower extremity concerning for osteomyelitis - s/p wound debridement with podiatry 04/07/2020 continue 6 units of Levemir in the day, continue 15 units at night continue premeal NovoLog from 5 to 9 units Continue moderate insulin sliding scale, reassess daily insulin requirements Blood glucose goal is 140-180 Hypoglycemia protocols Continue home Lipitor, amlodipine, lisinopril Wound consult Consult Dr. Alamo, general surgery, recs appreciated Consult Dr. Ernst, ID, recs appreciated Consult Dr. Lee, neurology, recs appreciated CM Code: Full, will need to discuss further with family or patient as when she gets better Diet: Diabetic Fluids: None DVT prophylaxis: Lovenox 40 mg daily Dispo: DC to SNF for PT/OT and 6 weeks IV abx, pending SNF placement currently. Needs new PICC line prior to discharge Time spent on this encounter was 37 minutes which included 22 minutes of counseling and care coordination. I discussed with the nurse at bedside. Time of note may not reflect time patient was seen. Carlton Story M.D. Apr 10, 2020 20:43
[2020-04-10] MEDS ORDERED: Heparin1,000 units/500ml Premix(Conc:2 units/ml) IV PRN (21:15)
[2020-04-10] MEDS ORDERED: Lidocaine 1% Plain 30 ml INJ PRN (21:15)
[2020-04-10] MEDS: Atorvastatin 80mg tab ORAL SCH (21:17)
[2020-04-10] MEDS: Enoxaparin 40mg Inj SUBQ SCH (21:19)
--- NOTE | 2020-04-10 21:38 | Neurology Progress Note ---
Interim History Interim History ROS Limited/Unobtainable: No Interim History no new deficits Objective Physical Exam Last Vital Signs Date Time Temp Pulse Resp B/P (MAP) Pulse Ox O2 Delivery O2 Flow Rate FiO2 04/10/20 16:00 98.2 93 18 135/70 (91) 98 04/10/20 10:09 Room Air 04/07/20 10:55 3 Laboratory Tests Test 04/10/20 04:20 04/10/20 05:53 04/10/20 09:34 04/10/20 11:31 White Blood Count 12.2 K/UL (4.8-10.8) H Red Blood Count 2.76 M/UL (4.20-5.40) L Hemoglobin 8.5 G/DL (12.0-16.0) L Hematocrit 24.2 % (37.0-47.0) L Mean Corpuscular Volume 88 FL (80-99) Mean Corpuscular Hemoglobin 30.9 PG (27.0-31.0) Mean Corpuscular Hemoglobin Concent 35.2 G/DL (32.0-36.0) Red Cell Distribution Width 14.5 % (11.6-14.8) Platelet Count 365 K/UL (150-450) Mean Platelet Volume 7.1 FL (6.5-10.1) Neutrophils (%) (Auto) 63.1 % (45.0-75.0) Lymphocytes (%) (Auto) 29.0 % (20.0-45.0) Monocytes (%) (Auto) 5.7 % (1.0-10.0) Eosinophils (%) (Auto) 1.3 % (0.0-3.0) Basophils (%) (Auto) 0.9 % (0.0-2.0) Sodium Level 145 MMOL/L (136-145) Potassium Level 3.5 MMOL/L (3.5-5.1) Chloride Level 111 MMOL/L (98-107) H Carbon Dioxide Level 31 MMOL/L (21-32) Anion Gap 4 mmol/L (5-15) L Blood Urea Nitrogen 20 mg/dL (7-18) H Creatinine 0.7 MG/DL (0.55-1.30) Estimat Glomerular Filtration Rate > 60 mL/min (>60) Glucose Level 144 MG/DL (74-106) H Calcium Level 7.6 MG/DL (8.5-10.1) L POC Whole Blood Glucose 132 MG/DL (74-106) H 102 MG/DL (74-106) 215 MG/DL (74-106) H Test 04/10/20 17:13 POC Whole Blood Glucose Pending General: well nourished Head: normocophalic Neck: no rigidity Neurologic Exam Mental Status: awake Objective confused, follows midline oriened to self LE weakness and numbness Impression/Recommendations Problems: (1) Sepsis (2) UTI (urinary tract infection) (3) Hyperkalemia (4) Leukocytosis (5) Altered mental status (6) Diabetes mellitus out of control (7) Acute on chronic renal failure (8) NSTEMI (non-ST elevated myocardial infarction) (9) High anion gap metabolic acidosis (10) Sacral decubitus ulcer (11) Decubitus ulcer of heel Diagnostic Impression acute encephalopathy, likely metabolic, fluctuating. LE weakness Cellulitis. Diabetes Delirium precautions ordered Cont atb PT as able Thee Lee MD Apr 10, 2020 21:38
[2020-04-11] VITALS: BP 127/62
[2020-04-11] MEDS: Vancomycin 750mg/NS 275ml IVPB SCH ×4 (02:15→14:14)
[2020-04-11 04:00] VITALS: BP 139/56
[2020-04-11] MEDS: metroNIDAZOLE 500mg tab ORAL SCH ×3 (06:20→21:52)
[2020-04-11] MEDS: NovoLOG Insulin Flexpen SUBQ SCH ×7 (06:30→20:30)
[2020-04-11 07:06] LABS: BASOPHILS % (AUTO) 0.9 % (0.0-2.0); EOSINOPHILS % (AUTO) 1.7 % (0.0-3.0); HEMATOCRIT 27.4 % (37.0-47.0); HEMOGLOBIN 9.5 G/DL (12.0-16.0); LYMPHOCYTES % (AUTO) 29.9 % (20.0-45.0); MEAN CORPUSCULAR VOLUME 90 FL (80-99); MONOCYTES % (AUTO) 6.4 % (1.0-10.0); NEUTROPHILS % (AUTO) 61.2 % (45.0-75.0); PLATELET COUNT 380 K/UL (150-450); RED BLOOD COUNT 3.05 M/UL (4.20-5.40); RED CELL DISTRIBUTION WIDTH 14.1 % (11.6-14.8); WHITE BLOOD COUNT 11.4 K/UL (4.8-10.8)
[2020-04-11 07:22] LABS: BLOOD UREA NITROGEN 17 mg/dL (7-18); CALCIUM 7.9 MG/DL (8.5-10.1); CREATININE 0.7 MG/DL (0.55-1.30)
[2020-04-11 07:40] LABS: ANION GAP 5 mmol/L (5-15); CARBON DIOXIDE 30 MMOL/L (21-32); CHLORIDE 110 MMOL/L (98-107); POTASSIUM 3.6 MMOL/L (3.5-5.1); SODIUM 145 MMOL/L (136-145)
[2020-04-11 08:00] VITALS: BP 134/57
[2020-04-11] MEDS: Aspirin Baby 81mg ORAL SCH (09:11)
[2020-04-11] MEDS: Levemir Flexpen SUBQ SCH ×2 (09:13→20:29)
[2020-04-11] MEDS: Cefepime HCl 2 GM in NS 55 ML IVPB SCH ×2 (09:16→20:25)
--- NOTE | 2020-04-11 10:06 | Hematology/Onc Progress Note ---
Assessment/Plan Assessment/Plan # Leukocytosis likely secondary to underlying diabetic ketoacidosis, rule out underlying infection. --> likely due to infected wounds, heel ulcerations --> ABX vanc/zosyn --> Peripheral smear, reviewed, hold off flow for now --> elev inflammatory markers --> WBC 35-->22-->18-->14-->13-->11.4 # Anemia due to underlying chronic disease. --> Continue to closely monitor for improvement. --> Anemia w/u has been reviewed. Will trend cbc daily. --> Hgb goal >7 -> hgb 12-->10.7->9.4-->9.5 --> anemia panel reviewed before # Hyperkalemia. Given Kayexalate. --> Improved # Diabetic ketoacidosis. --> per before, improved # High anion gap acidosis. To be seen by primary team. --> covering, On insulin sliding scale. # Shortness of breath in past with dka # Dvt ppx --> lovenox sq The time the note was entered does not necessarily correspond to the time the patient was seen. Subjective Constitutional: Denies: no symptoms, chills, fever, malaise, weakness, other HEENT: Denies: no symptoms, eye pain, blurred vision, tearing, double vision, ear pain, ear discharge, nose pain, nose congestion, throat pain, throat swelling, mouth pain, mouth swelling, other Cardiovascular: Denies: no symptoms, chest pain, edema, irregular heart rate, lightheadedness, palpitations, syncope, other Respiratory: Denies: no symptoms, cough, shortness of breath, SOB with excertion, SOB at rest, sputum, wheezing, other Gastrointestinal/Abdominal: Denies: no symptoms, abdomen distended, abdominal pain, black stools, tarry stools, blood in stool, constipated, diarrhea, difficulty swallowing, nausea, poor appetite, poor fluid intake, rectal bleeding, vomiting, other Genitourinary: Denies: no symptoms, burning, discharge, frequency, flank pain, hematuria, incontinence, pain, urgency, other Neurologic/Psychiatric: Denies: no symptoms, anxiety, depressed, emotional problems, headache, numbness, paresthesia, pre-existing deficit, seizure, tingling, tremors, weakness, other Endocrine: Denies: no symptoms, excessive sweating, flushing, intolerance to cold, intolerance to heat, increased hunger, increased thirst, increased urine, unexplained weight gain, unexplained weight loss, other Allergies: Coded Allergies: PENICILLINS (Verified Allergy, Unknown, 12/05/17) Subjective 04/04 labs reviewed, meds noted, no bleeding, is on vanc/zosyn, wbc better 04/05 is on abx zosyn/vanc, labs noted, with facial grimace, no complaints 04/06 labs reviewed, improved, meds noted on abx 04/07 left heel ulceration surgery today, no bleeding, meds reviewed 04/08 meds reviewed, labs noted, no major changes, on vent settings 04/09 labs reviewed, meds noted, A+O x1, hgb 9.4, no hemolysis 04/11 meds reviewed, no major bleeding, no events, hgb stable Objective Objective Current Medications Medications (Trade) Dose Ordered Sig/Enrike Route PRN Reason Start Time Stop Time Status Last Admin Dose Admin Acetaminophen (Tylenol) 650 mg Q4H PRN ORAL Temp >100.5 03/31/20 19:00 04/30/20 18:59 04/01/20 13:05 Acetaminophen (Tylenol) 650 mg Q4H PRN ORAL Mild Pain (Pain Scale 1-3) 03/31/20 19:00 04/30/20 18:59 Al Hydroxide/Mg Hydroxide (Mylanta II) 30 ml Q6H PRN ORAL dyspepsia 03/31/20 19:00 04/30/20 18:59 Amlodipine Besylate (Norvasc) 5 mg DAILY ORAL 04/01/20 09:00 05/01/20 08:59 04/11/20 09:24 Aspirin (ASA) 81 mg DAILY ORAL 04/01/20 09:00 05/16/20 08:59 04/11/20 09:11 Atorvastatin Calcium (Lipitor) 80 mg BEDTIME ORAL 03/31/20 21:00 06/29/20 20:59 04/10/20 21:17 Benazepril HCl (Lotensin) 40 mg DAILY ORAL 04/01/20 09:00 05/01/20 08:59 04/11/20 09:24 Cefepime HCl 2 gm/ Sodium Chloride 55 ml @ 110 mls/hr EVERY 12 HOURS IVPB 04/08/20 21:00 04/15/20 20:59 04/11/20 09:16 Chlorhexidine Gluconate (Holli-Hex 2%) 1 applic DAILY@1999 TOPIC 04/10/20 20:00 07/09/20 19:59 Dextrose (Dextrose 50%) 25 ml Q30M PRN IV Hypoglycemia 03/31/20 20:30 06/29/20 20:29 04/06/20 06:30 Dextrose (Dextrose 50%) 50 ml Q30M PRN IV Hypoglycemia 03/31/20 20:30 06/29/20 20:29 Enoxaparin Sodium (Lovenox) 40 mg Q24H SUBQ 03/31/20 21:00 06/29/20 20:59 04/10/20 21:19 Heparin Sodium/ Sodium Chloride (Heparin 1000 units/500ml Premix) 1,000 unit ONCE PRN IV PICC line 04/10/20 21:15 04/12/20 21:14 Insulin Aspart (NovoLOG) BEFORE MEALS AND HS SUBQ 03/31/20 21:00 06/29/20 20:59 04/10/20 22:25 Insulin Aspart (NovoLOG) 9 units NOVOTIAC SUBQ 04/05/20 11:50 07/02/20 11:49 04/10/20 17:23 Insulin Detemir (Levemir) 6 units DAILY SUBQ 04/05/20 09:00 07/04/20 08:59 04/11/20 09:13 Insulin Detemir (Levemir) 15 units QHS SUBQ 04/04/20 21:00 06/29/20 21:59 04/10/20 21:31 Lidocaine HCl (Xylocaine 1% 30ml) 30 ml ONCE PRN INJ PICC LINE 04/10/20 21:15 04/12/20 21:14 Magnesium Hydroxide (Mom) 30 ml HSPRN PRN ORAL Constipation 03/31/20 19:00 04/30/20 18:59 Metronidazole (Flagyl) 500 mg Q8HR ORAL 04/08/20 22:00 04/15/20 21:59 04/11/20 06:20 Ondansetron HCl (Zofran) 4 mg Q6H PRN IVP Nausea & Vomiting 03/31/20 19:00 04/30/20 18:59 Sodium Hypochlorite (Dakin's Quarter Strength) 1 applic DAILY TOPIC 04/03/20 09:00 05/03/20 08:59 04/10/20 13:01 Vancomycin HCl (Vanco pharmacy to dose) 1 ea DAILY PRN MISC Per rx protocol 04/06/20 16:15 05/06/20 16:14 Vancomycin HCl 750 mg/Sodium Chloride 275 ml @ 183.333 mls/hr Q12HR@0200,1400 IVPB 04/08/20 14:00 04/13/20 13:59 04/11/20 02:15 Last 24 Hour Vital Signs Date Time Temp Pulse Resp B/P (MAP) Pulse Ox O2 Delivery O2 Flow Rate FiO2 04/11/20 09:24 121/58 04/11/20 09:24 90 121/58 04/11/20 08:00 96.4 89 18 134/57 (82) 98 04/11/20 04:00 98.3 93 20 139/56 (83) 96 04/11/20 00:00 98.8 96 18 127/62 (83) 97 04/10/20 21:00 Room Air 04/10/20 20:00 98.6 96 18 122/55 (77) 97 04/10/20 16:00 98.2 93 18 135/70 (91) 98 04/10/20 12:00 97.9 95 19 123/51 (75) 95 04/10/20 10:09 Room Air 04/10/20 09:28 89 130/60 04/10/20 09:27 130/60 04/10/20 08:00 97.7 86 18 125/57 (79) 95 04/10/20 04:00 98.1 90 18 126/63 (84) 96 04/10/20 00:00 98.2 107 19 150/70 (96) 97 04/09/20 21:00 Room Air 04/09/20 20:00 98.1 103 19 130/55 (80) 97 04/09/20 16:00 98.3 93 19 123/54 (77) 98 04/09/20 12:00 98.1 94 17 103/64 (77) 96 Intake and Output 04/10/20 04/11/20 19:00 07:00 Intake Total 1200 ml 570.000 ml Output Total 750 ml Balance 1200 ml -180.000 ml Intake Oral 1200 ml 240 ml IV Total 330.000 ml Output Urine Total 750 ml # Bowel Movements 4 2 Labs Test 04/08/20 12:00 04/08/20 20:30 04/09/20 05:09 04/09/20 06:10 Vancomycin Level Trough 20.4 ug/mL (5.0-12.0) POC Whole Blood Glucose 287 MG/DL (74-106) 140 MG/DL (74-106) White Blood Count 12.5 K/UL (4.8-10.8) Red Blood Count 2.98 M/UL (4.20-5.40) Hemoglobin 9.4 G/DL (12.0-16.0) Hematocrit 26.5 % (37.0-47.0) Mean Corpuscular Volume 89 FL (80-99) Mean Corpuscular Hemoglobin 31.4 PG (27.0-31.0) Mean Corpuscular Hemoglobin Concent 35.4 G/DL (32.0-36.0) Red Cell Distribution Width 14.8 % (11.6-14.8) Platelet Count 391 K/UL (150-450) Mean Platelet Volume 7.0 FL (6.5-10.1) Neutrophils (%) (Auto) 62.8 % (45.0-75.0) Lymphocytes (%) (Auto) 26.9 % (20.0-45.0) Monocytes (%) (Auto) 7.8 % (1.0-10.0) Eosinophils (%) (Auto) 1.6 % (0.0-3.0) Basophils (%) (Auto) 0.8 % (0.0-2.0) Sodium Level 145 MMOL/L (136-145) Potassium Level 4.3 MMOL/L (3.5-5.1) Chloride Level 109 MMOL/L (98-107) Carbon Dioxide Level 32 MMOL/L (21-32) Anion Gap 4 mmol/L (5-15) Blood Urea Nitrogen 20 mg/dL (7-18) Creatinine 1.0 MG/DL (0.55-1.30) Estimat Glomerular Filtration Rate > 60 mL/min (>60) Glucose Level 139 MG/DL (74-106) Calcium Level 7.8 MG/DL (8.5-10.1) Test 04/09/20 11:22 04/09/20 13:00 04/09/20 16:56 04/09/20 21:26 POC Whole Blood Glucose 130 MG/DL (74-106) 287 MG/DL (74-106) 414 MG/DL (74-106) Vancomycin Level Trough 15.2 ug/mL (5.0-12.0) Test 04/09/20 21:28 04/10/20 04:20 04/10/20 05:53 04/10/20 09:34 POC Whole Blood Glucose 407 MG/DL (74-106) 132 MG/DL (74-106) 102 MG/DL (74-106) White Blood Count 12.2 K/UL (4.8-10.8) Red Blood Count 2.76 M/UL (4.20-5.40) Hemoglobin 8.5 G/DL (12.0-16.0) Hematocrit 24.2 % (37.0-47.0) Mean Corpuscular Volume 88 FL (80-99) Mean Corpuscular Hemoglobin 30.9 PG (27.0-31.0) Mean Corpuscular Hemoglobin Concent 35.2 G/DL (32.0-36.0) Red Cell Distribution Width 14.5 % (11.6-14.8) Platelet Count 365 K/UL (150-450) Mean Platelet Volume 7.1 FL (6.5-10.1) Neutrophils (%) (Auto) 63.1 % (45.0-75.0) Lymphocytes (%) (Auto) 29.0 % (20.0-45.0) Monocytes (%) (Auto) 5.7 % (1.0-10.0) Eosinophils (%) (Auto) 1.3 % (0.0-3.0) Basophils (%) (Auto) 0.9 % (0.0-2.0) Sodium Level 145 MMOL/L (136-145) Potassium Level 3.5 MMOL/L (3.5-5.1) Chloride Level 111 MMOL/L (98-107) Carbon Dioxide Level 31 MMOL/L (21-32) Anion Gap 4 mmol/L (5-15) Blood Urea Nitrogen 20 mg/dL (7-18) Creatinine 0.7 MG/DL (0.55-1.30) Estimat Glomerular Filtration Rate > 60 mL/min (>60) Glucose Level 144 MG/DL (74-106) Calcium Level 7.6 MG/DL (8.5-10.1) Test 04/10/20 11:31 04/10/20 17:13 04/10/20 21:22 04/11/20 06:20 POC Whole Blood Glucose 215 MG/DL (74-106) White Blood Count 11.4 K/UL (4.8-10.8) Red Blood Count 3.05 M/UL (4.20-5.40) Hemoglobin 9.5 G/DL (12.0-16.0) Hematocrit 27.4 % (37.0-47.0) Mean Corpuscular Volume 90 FL (80-99) Mean Corpuscular Hemoglobin 31.2 PG (27.0-31.0) Mean Corpuscular Hemoglobin Concent 34.7 G/DL (32.0-36.0) Red Cell Distribution Width 14.1 % (11.6-14.8) Platelet Count 380 K/UL (150-450) Mean Platelet Volume 7.5 FL (6.5-10.1) Neutrophils (%) (Auto) 61.2 % (45.0-75.0) Lymphocytes (%) (Auto) 29.9 % (20.0-45.0) Monocytes (%) (Auto) 6.4 % (1.0-10.0) Eosinophils (%) (Auto) 1.7 % (0.0-3.0) Basophils (%) (Auto) 0.9 % (0.0-2.0) Sodium Level 145 MMOL/L (136-145) Potassium Level 3.6 MMOL/L (3.5-5.1) Chloride Level 110 MMOL/L (98-107) Carbon Dioxide Level 30 MMOL/L (21-32) Anion Gap 5 mmol/L (5-15) Blood Urea Nitrogen 17 mg/dL (7-18) Creatinine 0.7 MG/DL (0.55-1.30) Estimat Glomerular Filtration Rate > 60 mL/min (>60) Glucose Level 111 MG/DL (74-106) Calcium Level 7.9 MG/DL (8.5-10.1) Test 04/11/20 06:53 04/11/20 09:08 POC Whole Blood Glucose 183 MG/DL (74-106) Height (Feet): 5 Height (Inches): 6.00 Weight (Pounds): 135 Objective Vitals: reviewed, normal General Appearance: no apparent distress, non-toxic, lethargic HEENT: bilateral eye normal inspection, bilateral eye PERRL Neck: full range of motion, supple/symm/no masses Resp: chest non-tender, lungs clear, normal breath sounds, speaking full sentences Cardiovascular: regular rate, rhythm, no edema Gastrointestinal: normal bowel sounds, non tender Rectal: deferred Genitourinary: normal inspection, no CVA tenderness Musculoskeletal: back normal, gait/station normal, non-tender Lymphatic: no adenopathy David De Jesus MD Apr 11, 2020 10:06
--- NOTE | 2020-04-11 12:11 | General Progress Note ---
Subjective Date patient seen: Apr 11, 2020 ROS Limited/Unobtainable: No Allergies: Coded Allergies: PENICILLINS (Verified Allergy, Unknown, 12/05/17) Subjective Constitutional: Denies: no symptoms, chills, diaphoresis, fever, malaise, weakness, other HEENT: Denies: no symptoms, eye pain, blurred vision, tearing, double vision, ear pain, ear discharge, nose pain, nose congestion, throat pain, throat swelling, mouth pain, mouth swelling, other Cardiovascular: Denies: no symptoms, chest pain, edema, irregular heart rate, lightheadedness, palpitations, syncope, other Respiratory: Denies: no symptoms, cough, orthopnea, shortness of breath, SOB with excertion, SOB at rest, sputum, stridor, wheezing, other Gastrointestinal/Abdominal: Denies: no symptoms, abdomen distended, abdominal pain, black stools, tarry stools, blood in stool, constipated, diarrhea, difficulty swallowing, nausea, poor appetite, poor fluid intake, rectal bleeding, vomiting, other Genitourinary: Denies: no symptoms, burning, discharge, frequency, flank pain, hematuria, incontinence, pain, urgency, other Neurologic/Psychiatric: Denies: no symptoms, anxiety, depressed, emotional problems, headache, numbness, paresthesia, pre-existing deficit, seizure, tingling, tremors, weakness, other Endocrine: Denies: no symptoms, excessive sweating, flushing, intolerance to cold, intolerance to heat, increased hunger, increased thirst, increased urine, unexplained weight gain, unexplained weight loss, other Hematologic/Lymphatic: Denies: no symptoms, anemia, easy bleeding, easy bruising, other Interval events: Patient pulled out her PICC line just prior to discharge. Today, patient laying in bed comfortable without complaints. Denies pain, fever, chills, chest pain, SOB, N/V. Had discussion with patient about importance of keeping PICC line secured in place to receive shelter antibiotics. Objective Last 24 Hour Vital Signs Date Time Temp Pulse Resp B/P (MAP) Pulse Ox O2 Delivery O2 Flow Rate FiO2 04/11/20 09:24 121/58 04/11/20 09:24 90 121/58 04/11/20 09:00 Room Air 04/11/20 08:00 96.4 89 18 134/57 (82) 98 04/11/20 04:00 98.3 93 20 139/56 (83) 96 04/11/20 00:00 98.8 96 18 127/62 (83) 97 04/10/20 21:00 Room Air 04/10/20 20:00 98.6 96 18 122/55 (77) 97 04/10/20 16:00 98.2 93 18 135/70 (91) 98 Intake and Output 04/10/20 04/11/20 19:00 07:00 Intake Total 1200 ml 570.000 ml Output Total 750 ml Balance 1200 ml -180.000 ml Intake Oral 1200 ml 240 ml IV Total 330.000 ml Output Urine Total 750 ml # Bowel Movements 4 2 Laboratory Tests 04/10/20 17:13: POC Whole Blood Glucose [Pending] 04/10/20 21:22: POC Whole Blood Glucose [Pending] 04/11/20 06:20: White Blood Count 11.4H, Red Blood Count 3.05L, Hemoglobin 9.5L, Hematocrit 27.4L, Mean Corpuscular Volume 90, Mean Corpuscular Hemoglobin 31.2H, Mean Corpuscular Hemoglobin Concent 34.7, Red Cell Distribution Width 14.1, Platelet Count 380, Mean Platelet Volume 7.5, Neutrophils (%) (Auto) 61.2, Lymphocytes (%) (Auto) 29.9, Monocytes (%) (Auto) 6.4, Eosinophils (%) (Auto) 1.7, Basophils (%) (Auto) 0.9, Sodium Level 145, Potassium Level 3.6, Chloride Level 110H, Carbon Dioxide Level 30, Anion Gap 5, Blood Urea Nitrogen 17, Creatinine 0.7, Estimat Glomerular Filtration Rate > 60, Glucose Level 111H, Calcium Level 7.9L 04/11/20 06:53: POC Whole Blood Glucose [Pending] 04/11/20 09:08: POC Whole Blood Glucose 183H 04/11/20 11:50: POC Whole Blood Glucose 266H Height (Feet): 5 Height (Inches): 6.00 Weight (Pounds): 135 Objective General Appearance: WD/WN, no apparent distress, awake, conversant EENT: normal ENT inspection Neck: non-tender, supple, normal inspection Cardiovascular: normal rate, regular rhythm, no gallop/murmur Respiratory/Chest: chest wall non-tender, lungs clear, normal breath sounds, no respiratory distress, no accessory muscle use Abdomen: normal bowel sounds, non tender, soft, no organomegaly Extremities: other - BLE wrapped in bandages, non tender to palpation Edema: no edema noted Arm (L), no edema noted Arm (R), no edema noted Leg (L), no edema noted Leg (R) Neurologic: flask cleaner II-XII grossly normal, alert, normal mood/affect Skin: normal pigmentation, warm/dry Assessment/Plan Assessment/Plan: A: #Acute encephalopathy likely secondary to infectious etiology versus toxic metabolicImproved #Sepsis with UTI, cellulitis, foot ulcer source - improving #Osteomyelitis of the left lower extremity - improving #UTI #Left lower extremity heel ulcer w/ possible osteomyelitis #Left lower extremity cellulitis #Bilateral lower extremity venous dermatitis #Bilateral lower extremity edema #Lactic acidosis #Diabetes mellitus uncontrolled; A1c 11.2 #Essential hypertension P: continue broad spec antibiotics with cefepime/Flagyl, now changed per ID - Needs new PICC line. Will need to be replaced prior to discharge. Bone culture showing Staph aureus and Proteus, Bacteroides -Inflammatory markers elevated MRI of left lower extremity concerning for osteomyelitis - s/p wound debridement with podiatry 04/07/2020 continue 6 units of Levemir in the day, continue 15 units at night continue premeal NovoLog from 5 to 9 units Continue moderate insulin sliding scale, reassess daily insulin requirements Blood glucose goal is 140-180 Hypoglycemia protocols Continue home Lipitor, amlodipine, lisinopril Wound consult Consult Dr. Alamo, general surgery, recs appreciated Consult Dr. Ernst, ID, recs appreciated Consult Dr. Lee, neurology, recs appreciated CM Code: Full, will need to discuss further with family or patient as when she gets better Diet: Diabetic Fluids: None DVT prophylaxis: Lovenox 40 mg daily Dispo: DC to SNF for PT/OT and 6 weeks IV abx, pending SNF placement currently. Needs new PICC line prior to discharge Time spent on this encounter was 35 minutes which included 20 minutes of counseling and care coordination. I discussed with the nurse at bedside. Time of note may not reflect time patient was seen. Carlton Story M.D. Apr 11, 2020 12:11
[2020-04-11 12:17] VITALS: BP 127/64
[2020-04-11] MEDS: Dakin's 0.125% Soln (Quarter Strength) 16oz TOPIC SCH (13:21)
--- NOTE | 2020-04-11 14:47 | Surgery Progress Note ---
Surgery Progress Note Subjective Additional Comments no acute events pulled out her picc line was planned for d/c d/c hold for new picc tomorrow Objective Last 24 Hour Vital Signs Date Time Temp Pulse Resp B/P (MAP) Pulse Ox O2 Delivery O2 Flow Rate FiO2 04/11/20 12:17 98.1 89 18 127/64 (85) 96 04/11/20 09:24 121/58 04/11/20 09:24 90 121/58 04/11/20 09:00 Room Air 04/11/20 08:00 96.4 89 18 134/57 (82) 98 04/11/20 04:00 98.3 93 20 139/56 (83) 96 04/11/20 00:00 98.8 96 18 127/62 (83) 97 04/10/20 21:00 Room Air 04/10/20 20:00 98.6 96 18 122/55 (77) 97 04/10/20 16:00 98.2 93 18 135/70 (91) 98 I&O Intake and Output 04/10/20 04/11/20 19:00 07:00 Intake Total 1200 ml 570.000 ml Output Total 750 ml Balance 1200 ml -180.000 ml Intake Oral 1200 ml 240 ml IV Total 330.000 ml Output Urine Total 750 ml # Bowel Movements 4 2 Dressing: dry Cardiovascular: RSR Respiratory: decreased breath sounds Abdomen: soft, non-tender, present bowel sounds Extremities: no edema, no tenderness, no cyanosis, other Laboratory Tests Test 04/10/20 17:13 04/10/20 21:22 04/11/20 06:20 04/11/20 06:53 POC Whole Blood Glucose Pending Pending Pending White Blood Count 11.4 K/UL (4.8-10.8) H Red Blood Count 3.05 M/UL (4.20-5.40) L Hemoglobin 9.5 G/DL (12.0-16.0) L Hematocrit 27.4 % (37.0-47.0) L Mean Corpuscular Volume 90 FL (80-99) Mean Corpuscular Hemoglobin 31.2 PG (27.0-31.0) H Mean Corpuscular Hemoglobin Concent 34.7 G/DL (32.0-36.0) Red Cell Distribution Width 14.1 % (11.6-14.8) Platelet Count 380 K/UL (150-450) Mean Platelet Volume 7.5 FL (6.5-10.1) Neutrophils (%) (Auto) 61.2 % (45.0-75.0) Lymphocytes (%) (Auto) 29.9 % (20.0-45.0) Monocytes (%) (Auto) 6.4 % (1.0-10.0) Eosinophils (%) (Auto) 1.7 % (0.0-3.0) Basophils (%) (Auto) 0.9 % (0.0-2.0) Sodium Level 145 MMOL/L (136-145) Potassium Level 3.6 MMOL/L (3.5-5.1) Chloride Level 110 MMOL/L (98-107) H Carbon Dioxide Level 30 MMOL/L (21-32) Anion Gap 5 mmol/L (5-15) Blood Urea Nitrogen 17 mg/dL (7-18) Creatinine 0.7 MG/DL (0.55-1.30) Estimat Glomerular Filtration Rate > 60 mL/min (>60) Glucose Level 111 MG/DL (74-106) H Calcium Level 7.9 MG/DL (8.5-10.1) L Test 04/11/20 09:08 04/11/20 11:50 04/11/20 12:45 POC Whole Blood Glucose 183 MG/DL (74-106) H 266 MG/DL (74-106) H Vancomycin Level Trough 15.9 ug/mL (5.0-12.0) H Plan Problems: (1) Decubitus ulcer of heel Assessment & Plan: podiatry eval appreciated bibiana noted cont abx 1. Left foot incision and drainage with removal of all nonviable tissue. 2. Left foot deep wound culture, calcaneus. 3. Left foot bone culture, calcaneus. 4. Left foot bone biopsy, calcaneus. 5. Left foot excisional ulcer debridement of heel to the level of muscle. appreciate podiatry input cont dressings after drainage (2) Sacral decubitus ulcer (3) Sepsis Assessment & Plan: 69-year-old female multiple comorbidities presented with failure to thrive lethargic altered mental status noted to have significant leukocytosis greater than 30,000 lactic acidosis 2.3 abnormal labs A1c 11 id entified to have draining bilateral heel unstageable decubitus ulcers multiple skin lesions on the lower extremities as well as a sacral decubitus ulcer as well. Patient is currently on antibiotics under work-up microbiology identified urine noted UTI. Imaging reviewed. Patient has been eating less recently but currently is eating at the bedside though does not look like she is taking much in. Treatment plan Wash sacral area daily with normal saline apply Thera honey followed by Optifoam dressing change daily and as needed saturation Wash bilateral heels daily with normal saline. Swab with Betadine unstageable necrotic eschar on bilateral heels and cover with Optifoam dressings. Change daily and as needed saturation Lower lower extremity ulcerations saw with Betadine cover with Optifoam dressing. Turn every 2 hours Offload pressure with pillows pillow on side as necessary as well as underneath calf to elevate heels Air soft mattress nutritional optimization continue IV antibiotics per infectious disease SACRUM- STAGE - UNSTAGEABLE PRESSURE ULCER MEASURES 6.0X13.0X0.2. WOUND BED WITH 80% SLOUGH AND 20% PINK GRANULATION TISSUE. NOTED FOUL ODOR RECOMMEND-CLEAN WITH SALINE. APPLY WET TO DRY DRESSINGS WITH DAKINS 0.25% DAKIN'S SOLUTION.COVER WITH OPTIFOAM DRESSING. REPLACE DRESSING DAILY. LEFT ISCHIUM-STAGE II PRESSURE ULCER MEASURES 4.5X0.5X0.2CM. PINK GRANULATION TISSUE NOTED. RECOMMEND- CLEAN WITH SALINE, PAT DRY. APPLY CALAZINE AND COVER WITH OPTIFOAM DRESSING. LEFT ANTERIOR LOW LEG-VENOUS ULCER MEASURES 8.0X2.6X0.2CM 100% YELLOW SLOUGH NOTED TO WOUND BED. RECOMMEND- CLEAN WITH SALINE, PA DRY. APPLY THERAHONEY. COVER WITH GAUZE AND SECURE WITH KERLIX. REPLACE DRESSING DAILY. LEFT HEEL- UNSTAGEABLE PRESSURE ULCER MEASURES 9.5X8.0X0.3CM. 100% MOIST BLACK ESCHAR. WITH STRONG FOUL ODOR. RECOMMEND- CLEAN WITH SALINE. APPLY WET TO DRY DRESSINGS WITH DAKINS 0.25% DAKIN'S SOLUTION. COVER WITH GAUZE, ABD PAD AND SECURE WITH KERLIX. REPLACE DAILY. RIGHT ANTERIOR LOW LEG-VENOUS ULCER MEASURES 2.5X3.0X0.2CM WITH PINK GRANULATION TISSUE. RIGHT ANTERIOR DISTAL LOW LEG -VENOUS ULCER MEASURES 1.5X0.2X0.1CM WITH PINK GRANULATION TISSUE. RECOMMEND-CLEAN WITH SALINE PAT DRY. APPLY XEROFORM GAUZE, GAUZE AND COVER WITH KERLIX. REPLACE DAILY RIGHT HEEL-DTI MEASURES 2.5X3.0CM. AREA DARK PURPLE IN COLOR AND BOGGY TO TOUCH. NO DRAINAGE NOTED. RECOMMEND- PAINT WITH CAVILON SKIN PROTECTOR, GAUZE AND WRAP WITH KERLIX. REPLACE DAILY. We will follow with recommendations thank you for letting participate patient's care Fairly numerous bubbles of soft tissue gas are seen within the subcutaneous fat and possibly the intrinsic musculature of the plantar surface of the heel. There is high STIR and decreased T1 signal within the calcaneus, and there is indistinctness of the inferior and posterior cortical margins of the calcaneus. There is some soft tissue ulceration of the plantar surface of the heel, as well as marked thinning of the subcutaneous fat overlying the calcaneal tuberosity. There is considerable edema of the plantar surface subcutaneous fat. There is also edema of the subcutaneous fat of the lateral and medial ankle. No focal discrete fluid collection to suggest drainable abscess demonstrated. Impression: Evidence of ulceration overlying the calcaneal tuberosity Soft tissue gas within the heel, as described. This may represent penetration the above, but is worrisome for infection with a gas-forming organism Abnormal signal within the posterior and mid calcaneus, highly suspicious for acute osteomyelitis (4) UTI (urinary tract infection) (5) Hyperkalemia (6) Leukocytosis (7) Altered mental status (8) Diabetes mellitus out of control (9) Acute on chronic renal failure (10) NSTEMI (non-ST elevated myocardial infarction) (11) High anion gap metabolic acidosis Joseph Alamo Apr 11, 2020 14:47
[2020-04-11 16:00] VITALS: BP 120/57
--- NOTE | 2020-04-11 19:14 | Neurology Progress Note ---
Interim History Interim History ROS Limited/Unobtainable: No Interim History no new deficits Objective Physical Exam Last Vital Signs Date Time Temp Pulse Resp B/P (MAP) Pulse Ox O2 Delivery O2 Flow Rate FiO2 04/11/20 16:00 98.1 91 18 120/57 (78) 99 04/11/20 09:00 Room Air 04/07/20 10:55 3 Laboratory Tests Test 04/10/20 21:22 04/11/20 06:20 04/11/20 06:53 04/11/20 09:08 POC Whole Blood Glucose Pending Pending 183 MG/DL (74-106) H White Blood Count 11.4 K/UL (4.8-10.8) H Red Blood Count 3.05 M/UL (4.20-5.40) L Hemoglobin 9.5 G/DL (12.0-16.0) L Hematocrit 27.4 % (37.0-47.0) L Mean Corpuscular Volume 90 FL (80-99) Mean Corpuscular Hemoglobin 31.2 PG (27.0-31.0) H Mean Corpuscular Hemoglobin Concent 34.7 G/DL (32.0-36.0) Red Cell Distribution Width 14.1 % (11.6-14.8) Platelet Count 380 K/UL (150-450) Mean Platelet Volume 7.5 FL (6.5-10.1) Neutrophils (%) (Auto) 61.2 % (45.0-75.0) Lymphocytes (%) (Auto) 29.9 % (20.0-45.0) Monocytes (%) (Auto) 6.4 % (1.0-10.0) Eosinophils (%) (Auto) 1.7 % (0.0-3.0) Basophils (%) (Auto) 0.9 % (0.0-2.0) Sodium Level 145 MMOL/L (136-145) Potassium Level 3.6 MMOL/L (3.5-5.1) Chloride Level 110 MMOL/L (98-107) H Carbon Dioxide Level 30 MMOL/L (21-32) Anion Gap 5 mmol/L (5-15) Blood Urea Nitrogen 17 mg/dL (7-18) Creatinine 0.7 MG/DL (0.55-1.30) Estimat Glomerular Filtration Rate > 60 mL/min (>60) Glucose Level 111 MG/DL (74-106) H Calcium Level 7.9 MG/DL (8.5-10.1) L Test 04/11/20 11:50 04/11/20 12:45 04/11/20 16:51 POC Whole Blood Glucose 266 MG/DL (74-106) H 176 MG/DL (74-106) H Vancomycin Level Trough 15.9 ug/mL (5.0-12.0) H General: well nourished Head: normocophalic Neck: no rigidity Neurologic Exam Mental Status: awake Objective confused, follows midline oriened to self LE weakness and numbness Impression/Recommendations Problems: (1) Sepsis (2) UTI (urinary tract infection) (3) Hyperkalemia (4) Leukocytosis (5) Altered mental status (6) Diabetes mellitus out of control (7) Acute on chronic renal failure (8) NSTEMI (non-ST elevated myocardial infarction) (9) High anion gap metabolic acidosis (10) Sacral decubitus ulcer (11) Decubitus ulcer of heel Diagnostic Impression acute encephalopathy, likely metabolic, fluctuating. LE weakness Cellulitis. Diabetes Delirium precautions ordered Cont atb PT as able Thee Lee MD Apr 11, 2020 19:14
[2020-04-11] MEDS: Dyna-Hex 2% Top Sol 2oz TOPIC SCH (19:47)
[2020-04-11 20:00] VITALS: BP 119/54
[2020-04-11] MEDS: Atorvastatin 80mg tab ORAL SCH ×2 (20:24→20:40)
[2020-04-11] MEDS: Enoxaparin 40mg Inj SUBQ SCH (20:26)
[2020-04-12] VITALS: BP 129/68
[2020-04-12] MEDS: Vancomycin 750mg/NS 275ml IVPB SCH ×4 (01:13→13:34)
[2020-04-12 04:00] VITALS: BP 136/63
[2020-04-12] MEDS: metroNIDAZOLE 500mg tab ORAL SCH ×3 (05:36→13:34)
[2020-04-12] MEDS: NovoLOG Insulin Flexpen SUBQ SCH ×4 (05:39→11:58)
--- NOTE | 2020-04-12 06:59 | Hematology/Onc Progress Note ---
Assessment/Plan Assessment/Plan # Leukocytosis likely secondary to underlying diabetic ketoacidosis, rule out underlying infection. --> likely due to infected wounds, heel ulcerations --> ABX vanc/zosyn --> Peripheral smear, reviewed, hold off flow for now --> elev inflammatory markers --> WBC 35-->22-->18-->14-->13-->11.4 # Anemia due to underlying chronic disease. --> Continue to closely monitor for improvement. --> Anemia w/u has been reviewed. Will trend cbc daily. --> Hgb goal >7 -> hgb 12-->10.7->9.4-->9.5 --> anemia panel reviewed before # Hyperkalemia. Given Kayexalate. --> Improved # Diabetic ketoacidosis. --> per before, improved # High anion gap acidosis. To be seen by primary team. --> covering, On insulin sliding scale. # Shortness of breath in past with dka # Dvt ppx --> lovenox sq The time the note was entered does not necessarily correspond to the time the patient was seen. Subjective Constitutional: Denies: no symptoms, chills, fever, malaise, weakness, other HEENT: Denies: no symptoms, eye pain, blurred vision, tearing, double vision, ear pain, ear discharge, nose pain, nose congestion, throat pain, throat swelling, mouth pain, mouth swelling, other Cardiovascular: Denies: no symptoms, chest pain, edema, irregular heart rate, lightheadedness, palpitations, syncope, other Respiratory: Denies: no symptoms, cough, shortness of breath, SOB with excertion, SOB at rest, sputum, wheezing, other Gastrointestinal/Abdominal: Denies: no symptoms, abdomen distended, abdominal pain, black stools, tarry stools, blood in stool, constipated, diarrhea, difficulty swallowing, nausea, poor appetite, poor fluid intake, rectal bleeding, vomiting, other Genitourinary: Denies: no symptoms, burning, discharge, frequency, flank pain, hematuria, incontinence, pain, urgency, other Neurologic/Psychiatric: Denies: no symptoms, anxiety, depressed, emotional problems, headache, numbness, paresthesia, pre-existing deficit, seizure, tingling, tremors, weakness, other Endocrine: Denies: no symptoms, excessive sweating, flushing, intolerance to cold, intolerance to heat, increased hunger, increased thirst, increased urine, unexplained weight gain, unexplained weight loss, other Hematologic/Lymphatic: Denies: no symptoms, anemia, easy bleeding, easy bruising, adenopathy, other Allergies: Coded Allergies: PENICILLINS (Verified Allergy, Unknown, 12/05/17) Subjective 04/04 labs reviewed, meds noted, no bleeding, is on vanc/zosyn, wbc better 04/05 is on abx zosyn/vanc, labs noted, with facial grimace, no complaints 04/06 labs reviewed, improved, meds noted on abx 04/07 left heel ulceration surgery today, no bleeding, meds reviewed 04/08 meds reviewed, labs noted, no major changes, on vent settings 04/09 labs reviewed, meds noted, A+O x1, hgb 9.4, no hemolysis 04/11 meds reviewed, no major bleeding, no events, hgb stable 04/12 is for picc line placement today, refusing meds, uncooperative Objective Objective Current Medications Medications (Trade) Dose Ordered Sig/Enrike Route PRN Reason Start Time Stop Time Status Last Admin Dose Admin Acetaminophen (Tylenol) 650 mg Q4H PRN ORAL Temp >100.5 03/31/20 19:00 04/30/20 18:59 04/01/20 13:05 Acetaminophen (Tylenol) 650 mg Q4H PRN ORAL Mild Pain (Pain Scale 1-3) 03/31/20 19:00 04/30/20 18:59 Al Hydroxide/Mg Hydroxide (Mylanta II) 30 ml Q6H PRN ORAL dyspepsia 03/31/20 19:00 04/30/20 18:59 Amlodipine Besylate (Norvasc) 5 mg DAILY ORAL 04/01/20 09:00 05/01/20 08:59 04/11/20 09:24 Aspirin (ASA) 81 mg DAILY ORAL 04/01/20 09:00 05/16/20 08:59 04/11/20 09:11 Atorvastatin Calcium (Lipitor) 80 mg BEDTIME ORAL 03/31/20 21:00 06/29/20 20:59 04/10/20 21:17 Benazepril HCl (Lotensin) 40 mg DAILY ORAL 04/01/20 09:00 05/01/20 08:59 04/11/20 09:24 Cefepime HCl 2 gm/ Sodium Chloride 55 ml @ 110 mls/hr EVERY 12 HOURS IVPB 04/08/20 21:00 04/15/20 20:59 04/11/20 20:25 Chlorhexidine Gluconate (Holli-Hex 2%) 1 applic DAILY@2000 TOPIC 04/10/20 20:00 07/09/20 19:59 Dextrose (Dextrose 50%) 25 ml Q30M PRN IV Hypoglycemia 03/31/20 20:30 06/29/20 20:29 04/06/20 06:30 Dextrose (Dextrose 50%) 50 ml Q30M PRN IV Hypoglycemia 03/31/20 20:30 06/29/20 20:29 Enoxaparin Sodium (Lovenox) 40 mg Q24H SUBQ 03/31/20 21:00 06/29/20 20:59 04/10/20 21:19 Heparin Sodium/ Sodium Chloride (Heparin 1000 units/500ml Premix) 1,000 unit ONCE PRN IV PICC line 04/10/20 21:15 04/12/20 21:14 Insulin Aspart (NovoLOG) BEFORE MEALS AND HS SUBQ 03/31/20 21:00 06/29/20 20:59 04/12/20 05:39 Insulin Aspart (NovoLOG) 9 units NOVOTIAC SUBQ 04/05/20 11:50 07/02/20 11:49 04/12/20 05:40 Insulin Detemir (Levemir) 6 units DAILY SUBQ 04/05/20 09:00 07/04/20 08:59 04/11/20 09:13 Insulin Detemir (Levemir) 15 units QHS SUBQ 04/04/20 21:00 06/29/20 21:59 04/11/20 20:29 Lidocaine HCl (Xylocaine 1% 30ml) 30 ml ONCE PRN INJ PICC LINE 04/10/20 21:15 04/12/20 21:14 Magnesium Hydroxide (Mom) 30 ml HSPRN PRN ORAL Constipation 03/31/20 19:00 04/30/20 18:59 Metronidazole (Flagyl) 500 mg Q8HR ORAL 04/08/20 22:00 04/15/20 21:59 04/11/20 14:13 Ondansetron HCl (Zofran) 4 mg Q6H PRN IVP Nausea & Vomiting 03/31/20 19:00 04/30/20 18:59 Sodium Hypochlorite (Dakin's Quarter Strength) 1 applic DAILY TOPIC 04/03/20 09:00 05/03/20 08:59 04/11/20 13:21 Vancomycin HCl (Vanco pharmacy to dose) 1 ea DAILY PRN MISC Per rx protocol 04/06/20 16:15 05/06/20 16:14 Vancomycin HCl 750 mg/Sodium Chloride 275 ml @ 183.333 mls/hr Q12HR@0200,1400 IVPB 04/08/20 14:00 04/13/20 13:59 04/12/20 01:13 Last 24 Hour Vital Signs Date Time Temp Pulse Resp B/P (MAP) Pulse Ox O2 Delivery O2 Flow Rate FiO2 04/12/20 04:00 98.5 82 18 136/63 (87) 96 04/12/20 00:00 98.9 88 20 129/68 (88) 97 04/11/20 21:00 Room Air 04/11/20 20:00 98.6 96 20 119/54 (75) 98 04/11/20 16:00 98.1 91 18 120/57 (78) 99 04/11/20 12:17 98.1 89 18 127/64 (85) 96 04/11/20 09:24 121/58 04/11/20 09:24 90 121/58 04/11/20 09:00 Room Air 04/11/20 08:00 96.4 89 18 134/57 (82) 98 04/11/20 04:00 98.3 93 20 139/56 (83) 96 04/11/20 00:00 98.8 96 18 127/62 (83) 97 04/10/20 21:00 Room Air 04/10/20 20:00 98.6 96 18 122/55 (77) 97 04/10/20 16:00 98.2 93 18 135/70 (91) 98 04/10/20 12:00 97.9 95 19 123/51 (75) 95 04/10/20 10:09 Room Air 04/10/20 09:28 89 130/60 04/10/20 09:27 130/60 04/10/20 08:00 97.7 86 18 125/57 (79) 95 Intake and Output 04/11/20 04/12/20 19:00 07:00 Intake Total 600 ml Balance 600 ml Intake Oral 600 ml # Voids 2 2 # Bowel Movements 2 Labs Test 04/09/20 11:22 04/09/20 13:00 04/09/20 16:56 04/09/20 21:26 POC Whole Blood Glucose 130 MG/DL (74-106) 287 MG/DL (74-106) 414 MG/DL (74-106) Vancomycin Level Trough 15.2 ug/mL (5.0-12.0) Test 04/09/20 21:28 04/10/20 04:20 04/10/20 05:53 04/10/20 09:34 POC Whole Blood Glucose 407 MG/DL (74-106) 132 MG/DL (74-106) 102 MG/DL (74-106) White Blood Count 12.2 K/UL (4.8-10.8) Red Blood Count 2.76 M/UL (4.20-5.40) Hemoglobin 8.5 G/DL (12.0-16.0) Hematocrit 24.2 % (37.0-47.0) Mean Corpuscular Volume 88 FL (80-99) Mean Corpuscular Hemoglobin 30.9 PG (27.0-31.0) Mean Corpuscular Hemoglobin Concent 35.2 G/DL (32.0-36.0) Red Cell Distribution Width 14.5 % (11.6-14.8) Platelet Count 365 K/UL (150-450) Mean Platelet Volume 7.1 FL (6.5-10.1) Neutrophils (%) (Auto) 63.1 % (45.0-75.0) Lymphocytes (%) (Auto) 29.0 % (20.0-45.0) Monocytes (%) (Auto) 5.7 % (1.0-10.0) Eosinophils (%) (Auto) 1.3 % (0.0-3.0) Basophils (%) (Auto) 0.9 % (0.0-2.0) Sodium Level 145 MMOL/L (136-145) Potassium Level 3.5 MMOL/L (3.5-5.1) Chloride Level 111 MMOL/L (98-107) Carbon Dioxide Level 31 MMOL/L (21-32) Anion Gap 4 mmol/L (5-15) Blood Urea Nitrogen 20 mg/dL (7-18) Creatinine 0.7 MG/DL (0.55-1.30) Estimat Glomerular Filtration Rate > 60 mL/min (>60) Glucose Level 144 MG/DL (74-106) Calcium Level 7.6 MG/DL (8.5-10.1) Test 04/10/20 11:31 04/10/20 17:13 04/10/20 21:22 04/11/20 06:20 POC Whole Blood Glucose 215 MG/DL (74-106) White Blood Count 11.4 K/UL (4.8-10.8) Red Blood Count 3.05 M/UL (4.20-5.40) Hemoglobin 9.5 G/DL (12.0-16.0) Hematocrit 27.4 % (37.0-47.0) Mean Corpuscular Volume 90 FL (80-99) Mean Corpuscular Hemoglobin 31.2 PG (27.0-31.0) Mean Corpuscular Hemoglobin Concent 34.7 G/DL (32.0-36.0) Red Cell Distribution Width 14.1 % (11.6-14.8) Platelet Count 380 K/UL (150-450) Mean Platelet Volume 7.5 FL (6.5-10.1) Neutrophils (%) (Auto) 61.2 % (45.0-75.0) Lymphocytes (%) (Auto) 29.9 % (20.0-45.0) Monocytes (%) (Auto) 6.4 % (1.0-10.0) Eosinophils (%) (Auto) 1.7 % (0.0-3.0) Basophils (%) (Auto) 0.9 % (0.0-2.0) Sodium Level 145 MMOL/L (136-145) Potassium Level 3.6 MMOL/L (3.5-5.1) Chloride Level 110 MMOL/L (98-107) Carbon Dioxide Level 30 MMOL/L (21-32) Anion Gap 5 mmol/L (5-15) Blood Urea Nitrogen 17 mg/dL (7-18) Creatinine 0.7 MG/DL (0.55-1.30) Estimat Glomerular Filtration Rate > 60 mL/min (>60) Glucose Level 111 MG/DL (74-106) Calcium Level 7.9 MG/DL (8.5-10.1) Test 04/11/20 06:53 04/11/20 09:08 04/11/20 11:50 04/11/20 12:45 POC Whole Blood Glucose 183 MG/DL (74-106) 266 MG/DL (74-106) Vancomycin Level Trough 15.9 ug/mL (5.0-12.0) Test 04/11/20 16:51 POC Whole Blood Glucose 176 MG/DL (74-106) Height (Feet): 5 Height (Inches): 6.00 Weight (Pounds): 135 Objective Vitals: reviewed, normal General Appearance: no apparent distress, non-toxic, lethargic HEENT: bilateral eye normal inspection, bilateral eye PERRL Neck: full range of motion, supple/symm/no masses Resp: chest non-tender, lungs clear, normal breath sounds, speaking full sentences Cardiovascular: regular rate, rhythm, no edema Gastrointestinal: normal bowel sounds, non tender Rectal: deferred Genitourinary: normal inspection, no CVA tenderness Musculoskeletal: back normal, gait/station normal, non-tender Lymphatic: no adenopathy David De Jesus MD Apr 12, 2020 06:59
[2020-04-12 08:00] VITALS: BP 127/65
[2020-04-12] MEDS: Aspirin Baby 81mg ORAL SCH (08:06)
[2020-04-12] MEDS: Dakin's 0.125% Soln (Quarter Strength) 16oz TOPIC SCH (08:08)
[2020-04-12] MEDS: Levemir Flexpen SUBQ SCH (08:08)
[2020-04-12] MEDS: Cefepime HCl 2 GM in NS 55 ML IVPB SCH (08:09)
[2020-04-12] MEDS ORDERED: Lidocaine 1% Plain 30 ml INJ PRN (11:30)
[2020-04-12] MEDS ORDERED: Heparin1,000 units/500ml Premix(Conc:2 units/ml) IV PRN (11:30)
[2020-04-12 12:00] VITALS: BP 112/62
--- NOTE | 2020-04-12 12:10 | Discharge Summary ---
Discharge Summary Hospital Course Date of Admission Mar 31, 2020 at 17:25 Date of Discharge Apr 12, 2020 Admitting Diagnosis ALTERD MENTAL STATUS Reason for Hospitalization: Osteomyelitis of left foot HPI Bhavna Barroso is a 69 year old female who was admitted on Mar 31, 2020 at 17:25 for Altered Mental Status Consultations ID, Dr. Plaza Surgery, Dr. Alamo Heme/Onc, Dr. De Jesus Neurology, Dr. Lee Procedures MRI of LLE Wound debridement and bone biopsy/culture of LLE Hospital Course Patient was admitted initially with AMS and found to have on infectious workup osteomyelitis of LLE on MRI and UTI. She underwent wound debridement on 04/07/2020 with bone biopsy and cultures obtained. She was started on IV antibiotics Vancomycin, Cefepime and also Flagyl which she will need for total 6 week course. Her mental status improved and she will be discharged to SNF with PICC line for IV access. She will need wound care, PT/OT and IV antibiotics at SNF. A: #Acute encephalopathy likely secondary to infectious etiology versus toxic metabolicImproved #Sepsis with UTI, cellulitis, foot ulcer source - improving #Osteomyelitis of the left lower extremity - improving #UTI #Left lower extremity heel ulcer w/ possible osteomyelitis #Left lower extremity cellulitis #Bilateral lower extremity venous dermatitis #Bilateral lower extremity edema #Lactic acidosis #Diabetes mellitus uncontrolled; A1c 11.2 #Essential hypertension P: continue broad spec antibiotics with cefepime/Flagyl, now changed per ID, for total 6 week course. - PICC line to be placed today prior to discharge Bone culture showing Staph aureus and Proteus, Bacteroides -Inflammatory markers elevated MRI of left lower extremity concerning for osteomyelitis - s/p wound debridement with podiatry 04/07/2020 continue 6 units of Levemir in the day, continue 15 units at night continue premeal NovoLog from 5 to 9 units Continue moderate insulin sliding scale, reassess daily insulin requirements Blood glucose goal is 140-180 Hypoglycemia protocols Continue home Lipitor, amlodipine, lisinopril Wound consult Consult Dr. Alamo, general surgery, recs appreciated Consult Dr. Plaza, ID, recs appreciated Consult Dr. Lee, neurology, recs appreciated Time spent on this discharge was 37 minutes which included 22 minutes of counseling and care coordination, discharge planning with case management, discussion with consultants regarding antibiotic and wound care treatment. I discussed with the nurse at bedside. Time of note may not reflect time patient was seen. Discharge Medications New Medications: Cefepime Hcl/Dextrose, Iso-Osm (Cefepime 2 Gm Injection) 2 Gm/100 Ml Froz.piggy 2 GM IV EVERY 12 HOURS for 40 Days, BAG Enoxaparin* (Lovenox*) 40 Mg/0.4 Ml Inj 40 MG SUBQ Q24H for 30 Days, ML Metronidazole* (Flagyl*) 500 Mg Tablet 500 MG ORAL Q8HR for 40 Days, TAB Vancomycin In Dextrose,Iso-Osm (Vancomycin 750 Mg/150 Ml Bag) 750 Mg/150 Ml Froz.piggy 750 MG IV EVERY 12 HOURS for 40 Days, BAG Continued Medications: Amlodipine Besylate* (Amlodipine Besylate*) 5 Mg Tablet 5 MG ORAL DAILY, TAB Aspirin* (Aspirin*) 81 Mg Tab.chew 81 MG ORAL DAILY, TAB Atorvastatin Calcium* (Lipitor*) 80 Mg Tablet 80 MG ORAL BEDTIME, TAB Benazepril Hcl* (Benazepril Hcl*) 40 Mg Tablet 40 MG ORAL DAILY, TAB Insulin Glargine (Lantus) 100 Unit/1 Ml Insuln.pen 20 UNITS SUBQ QHS for , #1 EA 0 Refills Insulin Lispro (Humalog) 100 Unit/1 Ml Cartridge 4 UNITS SUBQ THREE TIMES A DAY for , #1 UNITS 0 Refills Discharge Condition Upon Discharge: improving Discharge Vital Signs Last Vital Signs Date Time Temp Pulse Resp B/P (MAP) Pulse Ox O2 Delivery O2 Flow Rate FiO2 04/12/20 09:00 Room Air 04/12/20 08:07 129/63 04/12/20 08:07 88 04/12/20 08:00 98.8 18 97 04/07/20 10:55 3 Exam on day of discharge General Appearance: WD/WN, no apparent distress, awake, conversant EENT: normal ENT inspection Neck: non-tender, supple, normal inspection Cardiovascular: normal rate, regular rhythm, no gallop/murmur Respiratory/Chest: chest wall non-tender, lungs clear, normal breath sounds, no respiratory distress, no accessory muscle use Abdomen: normal bowel sounds, non tender, soft, no organomegaly Extremities: other - BLE wrapped in bandages, non tender to palpation Edema: no edema noted Arm (L), no edema noted Arm (R), no edema noted Leg (L), no edema noted Leg (R) Neurologic: wrist hemmer II-XII grossly normal, alert, normal mood/affect Skin: normal pigmentation, warm/dry Discharge Disposition Patient was discharged to SNF Discharge Instructions Discharge Instructions Follow up with: primary care physician in 7 days Call MD/Return to Hospital if: symptoms worsen or fail to improve Services Upon Discharge: physical therapy, occupational therapy, other - wound care and dressing changes of BLE Activity: as tolerated Carlton Story M.D. Apr 12, 2020 12:10
--- NOTE | 2020-04-12 13:16 | Surgery Progress Note ---
Surgery Progress Note Subjective Additional Comments patient pulled out her picc line planned for new pic today discussed with radiology Objective Last 24 Hour Vital Signs Date Time Temp Pulse Resp B/P (MAP) Pulse Ox O2 Delivery O2 Flow Rate FiO2 04/12/20 12:00 97.8 96 18 112/62 (79) 97 04/12/20 09:00 Room Air 04/12/20 08:07 129/63 04/12/20 08:07 88 129/63 04/12/20 08:00 98.8 96 18 127/65 (85) 97 04/12/20 04:00 98.5 82 18 136/63 (87) 96 04/12/20 00:00 98.9 88 20 129/68 (88) 97 04/11/20 21:00 Room Air 04/11/20 20:00 98.6 96 20 119/54 (75) 98 04/11/20 16:00 98.1 91 18 120/57 (78) 99 I&O Intake and Output 04/11/20 04/12/20 19:00 07:00 Intake Total 600 ml Balance 600 ml Intake Oral 600 ml # Voids 2 2 # Bowel Movements 2 Dressing: saturated Cardiovascular: RSR Respiratory: decreased breath sounds Abdomen: non-tender, present bowel sounds Extremities: no edema, no tenderness, no cyanosis Laboratory Tests Test 04/11/20 16:51 04/12/20 11:32 POC Whole Blood Glucose 176 MG/DL (74-106) H 233 MG/DL (74-106) H Plan Problems: (1) Decubitus ulcer of heel Assessment & Plan: podiatry eval appreciated bibiana noted cont abx 1. Left foot incision and drainage with removal of all nonviable tissue. 2. Left foot deep wound culture, calcaneus. 3. Left foot bone culture, calcaneus. 4. Left foot bone biopsy, calcaneus. 5. Left foot excisional ulcer debridement of heel to the level of muscle. appreciate podiatry input cont dressings after drainage (2) Sacral decubitus ulcer (3) Sepsis Assessment & Plan: 69-year-old female multiple comorbidities presented with failure to thrive lethargic altered mental status noted to have significant leukocytosis greater than 30,000 lactic acidosis 2.3 abnormal labs A1c 11 identified to have draining bilateral heel unstageable decubitus ulcers multiple skin lesions on the lower extremities as well as a sacral decubitus ulcer as well. Patient is currently on antibiotics under work-up microbiology identified urine noted UTI. Imaging reviewed. Patient has been eating less recently but currently is eating at the bedside though does not look like she is taking much in. Treatment plan Wash sacral area daily with normal saline apply Thera honey followed by Optifoam dressing change daily and as needed saturation Wash bilateral heels daily with normal saline. Swab with Betadine unstageable n ecrotic eschar on bilateral heels and cover with Optifoam dressings. Change daily and as needed saturation Lower lower extremity ulcerations saw with Betadine cover with Optifoam dressing. Turn every 2 hours Offload pressure with pillows pillow on side as necessary as well as underneath calf to elevate heels Air soft mattress nutritional optimization continue IV antibiotics per infectious disease SACRUM- STAGE - UNSTAGEABLE PRESSURE ULCER MEASURES 6.0X13.0X0.2. WOUND BED WITH 80% SLOUGH AND 20% PINK GRANULATION TISSUE. NOTED FOUL ODOR RECOMMEND-CLEAN WITH SALINE. APPLY WET TO DRY DRESSINGS WITH DAKINS 0.25% DAKIN'S SOLUTION.COVER WITH OPTIFOAM DRESSING. REPLACE DRESSING DAILY. LEFT ISCHIUM-STAGE II PRESSURE ULCER MEASURES 4.5X0.5X0.2CM. PINK GRANULATION TISSUE NOTED. RECOMMEND- CLEAN WITH SALINE, PAT DRY. APPLY CALAZINE AND COVER WITH OPTIFOAM DRESSING. LEFT ANTERIOR LOW LEG-VENOUS ULCER MEASURES 8.0X2.6X0.2CM 100% YELLOW SLOUGH NOTED TO WOUND BED. RECOMMEND- CLEAN WITH SALINE, PA DRY. APPLY THERAHONEY. COVER WITH GAUZE AND SECURE WITH KERLIX. REPLACE DRESSING DAILY. LEFT HEEL- UNSTAGEABLE PRESSURE ULCER MEASURES 9.5X8.0X0.3CM. 100% MOIST BLACK ESCHAR. WITH STRONG FOUL ODOR. RECOMMEND- CLEAN WITH SALINE. APPLY WET TO DRY DRESSINGS WITH DAKINS 0.25% DAKIN 'S SOLUTION. COVER WITH GAUZE, ABD PAD AND SECURE WITH KERLIX. REPLACE DAILY. RIGHT ANTERIOR LOW LEG-VENOUS ULCER MEASURES 2.5X3.0X0.2CM WITH PINK GRANULATION TISSUE. RIGHT ANTERIOR DISTAL LOW LEG -VENOUS ULCER MEASURES 1.5X0.2X0.1CM WITH PINK GRANULATION TISSUE. RECOMMEND-CLEAN WITH SALINE PAT DRY. APPLY XEROFORM GAUZE, GAUZE AND COVER WITH KERLIX. REPLACE DAILY RIGHT HEEL-DTI MEASURES 2.5X3.0CM. AREA DARK PURPLE IN COLOR AND BOGGY TO TOUCH. NO DRAINAGE NOTED. RECOMMEND- PAINT WITH CAVILON SKIN PROTECTOR, GAUZE AND WRAP WITH KERLIX. REPLACE DAILY. We will follow with recommendations thank you for letting participate patient's care Fairly numerous bubbles of soft tissue gas are seen within the subcutaneous fat and possibly the intrinsic musculature of the plantar surface of the heel. There is high STIR and decreased T1 signal within the calcaneus, and there is indistinctness of the inferior and posterior cortical margins of the calcaneus. There is some soft tissue ulceration of the plantar surface of the heel, as well as marked thinning of the subcutaneous fat overlying the calcaneal tuberosity. There is considerable edema of the plantar surface subcutaneous fat. There is also edema of the subcutaneous fat of the lateral and medial ankle. No focal discrete fluid collection to suggest drainable abscess demonstrated. Impression: Evidence of ulceration overlying the calcaneal tuberosity Soft tissue gas within the heel, as described. This may represent penetration the above, but is worrisome for infection with a gas-forming organism Abnormal signal within the posterior and mid calcaneus, highly suspicious for acute osteomyelitis (4) UTI (urinary tract infection) (5) Hyperkalemia (6) Leukocytosis (7) Altered mental status (8) Diabetes mellitus out of control (9) Acute on chronic renal failure (10) NSTEMI (non-ST elevated myocardial infarction) (11) High anion gap metabolic acidosis Joseph Alamo Apr 12, 2020 13:16
--- NOTE | 2020-04-12 13:53 | Brief Operative Note ---
Immediate Post Operative Note Operative Note Pre-op Diagnosis: needs IV access Procedure: PICC Post-op Diagnosis: same as pre-op Surgeon: Merlin FLEMING Anesthesia: local Specimen: none Complications: none Fluids: none Implant(s) used?: No Estuardo Fleming MD Apr 12, 2020 13:53
--- NOTE | 2020-04-12 16:56 | Diagnostic Imaging Report ---
Indications: Needs long-term IV access Technique: Ultrasound confirms patent compressible left basilic vein. Total sterile technique, including sterile probe cover and sterile gel, hat, mask, sterile gown, large sterile drape, and preparation with 2% chlorhexidine utilized. Local anesthesia with 1% lidocaine. Under real-time ultrasound guidance with real-time visualization of the needle entering the vein, puncture vein using 21-gauge needle, documented and archived, passage 0.018 guidewire under direct fluoroscopy, which was used to determine appropriate catheter length, exchange for 4 [place] peel-away sheath. 4 [place] Bard dual-lumen power PICC cut to 42 cm. It was inserted through the peel-away sheath. Peel-away sheath and guidewire removed. Catheter fixed to the skin. Both catheter ports aspirated and flushed. Patient tolerated procedure well, without immediate complication. Digital radiograph documents satisfactory catheter tip position, at the cavoatrial junction. Total fluoroscopy time 36.2 seconds. Total dose area product [id number] Total number of images: 1 Impression: Successful placement of left arm PICC under sonographic and fluoroscopic guidance, as described above.
[2020-04-12] MEDS ORDERED: Dyna-Hex 2% Top Sol 2oz TOPIC SCH (20:00)
--- NOTE | 2020-04-12 21:33 | Neurology Progress Note ---
Interim History Interim History ROS Limited/Unobtainable: No Interim History no new deficits Objective Physical Exam Last Vital Signs Date Time Temp Pulse Resp B/P (MAP) Pulse Ox O2 Delivery O2 Flow Rate FiO2 04/12/20 12:00 97.8 96 18 112/62 (79) 97 04/12/20 09:00 Room Air 04/07/20 10:55 3 Laboratory Tests Test 04/12/20 11:32 POC Whole Blood Glucose 233 MG/DL (74-106) H General: well nourished Head: normocophalic Neck: no rigidity Neurologic Exam Mental Status: awake Objective confused, follows midline oriened to self LE weakness and numbness Impression/Recommendations Problems: (1) Sepsis (2) UTI (urinary tract infection) (3) Hyperkalemia (4) Leukocytosis (5) Altered mental status (6) Diabetes mellitus out of control (7) Acute on chronic renal failure (8) NSTEMI (non-ST elevated myocardial infarction) (9) High anion gap metabolic acidosis (10) Sacral decubitus ulcer (11) Decubitus ulcer of heel Diagnostic Impression acute encephalopathy, likely metabolic, fluctuating. LE weakness Cellulitis. Diabetes Delirium precautions ordered Cont atb PT as able Thee Lee MD Apr 12, 2020 21:32
== END 2020-04-12 16:00 | DRG 710 ==
LOC: EDBD 14:05 → EMR 14:35 → 2E 17:25 → EDBEDREQ 20:39 → 2E 23:11 → 4E 04-03 11:40
PROC: B518ZZA Fluoroscopy of Superior Vena Cava, Guidance (ICD-10-PCS; 2020-04-07)
PROC: 02HV33Z Insertion of Infusion Device into Superior Vena Cava, Percutaneous Approach (ICD-10-PCS; 2020-04-07)
PROC: 0Y9L3ZZ Drainage of Left Ankle Region, Percutaneous Approach (ICD-10-PCS; principal; 2020-04-07 09:00)
PROC: 0Y9N3ZZ Drainage of Left Foot, Percutaneous Approach (ICD-10-PCS; principal; 2020-04-07 09:00)
PROC: 0KBW0ZZ Excision of Left Foot Muscle, Open Approach (ICD-10-PCS; principal; 2020-04-07 09:00)
PROC: 0QBM3ZX Excision of Left Tarsal, Percutaneous Approach, Diagnostic (ICD-10-PCS; principal; 2020-04-07 09:00)
PROC: 02HV33Z Insertion of Infusion Device into Superior Vena Cava, Percutaneous Approach (ICD-10-PCS; 2020-04-12)
PROC: B518ZZA Fluoroscopy of Superior Vena Cava, Guidance (ICD-10-PCS; 2020-04-12)
DX: A41.51 Sepsis due to Escherichia coli [E. coli] (principal); N39.0 Urinary tract infection, site not specified; E11.69 Type 2 diabetes mellitus with other specified complication; M86.9 Osteomyelitis, unspecified; E87.2 Acidosis; E11.10 Type 2 diabetes mellitus with ketoacidosis without coma; N17.9 Acute kidney failure, unspecified; I21.4 Non-ST elevation (NSTEMI) myocardial infarction; G93.41 Metabolic encephalopathy; I12.9 Hypertensive chronic kidney disease with stage 1 through stage 4 chronic kidney disease, or unspecified chronic kidney disease; E11.22 Type 2 diabetes mellitus with diabetic chronic kidney disease; E11.65 Type 2 diabetes mellitus with hyperglycemia; N18.9 Chronic kidney disease, unspecified; E87.5 Hyperkalemia; D64.9 Anemia, unspecified; Z88.0 Allergy status to penicillin; L89.150 Pressure ulcer of sacral region, unstageable; L89.222 Pressure ulcer of left hip, stage 2; L89.629 Pressure ulcer of left heel, unspecified stage; I87.2 Venous insufficiency (chronic) (peripheral); L03.116 Cellulitis of left lower limb
CPT/HCPCS: 36415; 36573; 70450; 71045; 76937; 80048; 80053; 80061; 80202; 81003; 82150; 82550; 82553; 82728; 82962; 83036; 83605; 83615; 83690; 83735; 83880; 84100; 84134; 84443; 84484; 85007; 85025; 85379; 85610; 85651; 85730; 86140; 87040; 87070; 87075; 87081; 87086; 87181; 87205; 93005; 93306; 93970; 94003; 94150; 94664; 96361; 96365; 99291; J1815; J7030; J8499; S5561; U0002

== ENCOUNTER 2020-05-01 14:16 | Inpatient (IN) | payer OTHER ==
[~2020-05-01] VITALS: Ht 170.2 cm; Wt 59.0 kg
[2020-05-01] MEDS: D5NS 1,000 ML IV SCH (00:30)
[~2020-05-01 14:16] MED LIST changes: +CEFEPIME 22 GM/100 M IV; +FLAGYL500 MG ORAL; +LOVENOX10 M4 SUBQ; +VANCOMYCIN750 MG/150 IV
--- NOTE | 2020-05-01 14:25 | NUR ---
ED Nurse Note: No available bed at this time.
[2020-05-01 14:35] VITALS: BP 127/68
--- NOTE | 2020-05-01 14:45 | NUR ---
ED Nurse Note: Pt was brought in by ambulance from [facility] acute care d/t inability to urinate for 2-3 days and loss of appetite for 4 days. Pt is AOx0, noted with consistent confusion, combative to care, noted PICC line on L upper arm, VSS, on RA, afebrile on triage. Pt was placed onbed and gown, will continue to monitor.
[2020-05-01] MEDS ORDERED: MULTIVITAMINS1 EAC2 ORAL (14:55)
[2020-05-01] MEDS ORDERED: ASCORBIC ACID500 MG ORAL (14:55)
[2020-05-01] MEDS ORDERED: ARGINAID POWDE1 EACH PO (14:55)
[2020-05-01] MEDS ORDERED: METRONIDAZOLE500 MG ORAL (14:55)
[2020-05-01] MEDS ORDERED: GLUCERNA237 ML PO (14:55)
[2020-05-01] MEDS ORDERED: ZINC SULFATE220 M1 ORAL (14:56)
--- NOTE | 2020-05-01 15:09 | Emergency Room Report ---
History of Present Illness General Chief Complaint: General Complaint Source: Medical Record, EMS Present Illness HPI Disclaimer: Please note that this report is being documented using DRAGON technology. This can lead to erroneous entry secondary to incorrect interpretation by the dictating instrument. HPI: 69-year-old female presents for evaluation of abnormal labs. He presents from nursing facility for evaluation of acute kidney injury with reported elevated BUN and creatinine. Also she has not urinated for 3 days and is refusing medication and refusing to eat. Patient's baseline mentation status is alert and oriented x1. She is combative at times. She does not provide any history. Does not appear to be in distress. Her eyes are stable vital signs. 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 EOMI. Cardiovascular: RRR. S1 and S2 normal. No murmur appreciated Resp: Normal work of breathing. No cough, wheezing or crackles appreciated Abdomen: Abdomen is soft, nondistended. Nontender Skin: Intact. PICC line right arm MSK: Normal tone and bulk. Moving all extremities. No obvious deformity. Neuro: Awake, mumbling incoherently. Medical Decision Making Diagnostic Impression: Primary Impression: JYOTI (acute kidney injury) Additional Impression: UTI (urinary tract infection) ER Course 69-year-old female presents for evaluation of abnormal labs. Concern for acute kidney injury, decreased appetite, refusing medication and dehydration. Patient became agitated when obtaining labs and she required Haldol for mild sedation. Labs show normal white count but confirmed the worsening renal function with a creatinine of 4.1 and BUN of 37. Urine also concerning for urinary tract infection and patient was treated with Rocephin. CT head obtained for altered mental status but returned unremarkable. Patient admitted to [facility] based on prior admission and relationship with PMD. Laboratory Tests Test 05/01/20 15:30 05/01/20 15:50 White Blood Count 7.3 K/UL (4.8-10.8) Red Blood Count 3.62 M/UL (4.20-5.40) L Hemoglobin 11.2 G/DL (12.0-16.0) L Hematocrit 32.1 % (37.0-47.0) L Mean Corpuscular Volume 89 FL (80-99) Mean Corpuscular Hemoglobin 30.9 PG (27.0-31.0) Mean Corpuscular Hemoglobin Concent 34.9 G/DL (32.0-36.0) Red Cell Distribution Width 17.1 % (11.6-14.8) H Platelet Count 188 K/UL (150-450) Mean Platelet Volume 9.1 FL (6.5-10.1) Neutrophils (%) (Auto) 70.2 % (45.0-75.0) Lymphocytes (%) (Auto) 17.0 % (20.0-45.0) L Monocytes (%) (Auto) 8.8 % (1.0-10.0) Eosinophils (%) (Auto) 2.4 % (0.0-3.0) Basophils (%) (Auto) 1.6 % (0.0-2.0) Sodium Level 144 MMOL/L (136-145) Potassium Level 3.4 MMOL/L (3.5-5.1) L Chloride Level 111 MMOL/L (98-107) H Carbon Dioxide Level 19 MMOL/L (21-32) L Anion Gap 14 mmol/L (5-15) Blood Urea Nitrogen 37 mg/dL (7-18) H Creatinine 4.1 MG/DL (0.55-1.30) H Estimated Glomerular Filtration Rate 13.1 mL/min (>60) Glucose Level 113 MG/DL (74-106) H Calcium Level 7.1 MG/DL (8.5-10.1) L Phosphorus Level 3.3 MG/DL (2.5-4.9) Magnesium Level 1.5 MG/DL (1.8-2.4) L Total Bilirubin 0.4 MG/DL (0.2-1.0) Aspartate Amino Transferase (AST) 47 U/L (15-37) H Alanine Aminotransferase (ALT) 22 U/L (12-78) Alkaline Phosphatase 112 U/L (46-116) Troponin I 0.012 ng/mL (0.000-0.056) Total Protein 5.0 G/DL (6.4-8.2) L Albumin 1.2 G/DL (3.4-5.0) L Globulin 3.8 g/dL Albumin/Globulin Ratio 0.3 (1.0-2.7) L Lipase 39 U/L (73-393) L Urine Color Pale yellow Urine Appearance Cloudy Urine pH 6 (4.5-8.0) Urine Specific [place] 1.030 (1.005-1.035) Urine Protein 3+ (NEGATIVE) H Urine Glucose (UA) Negative (NEGATIVE) Urine Ketones 1+ (NEGATIVE) H Urine Blood 4+ (NEGATIVE) H Urine Nitrite Negative (NEGATIVE) Urine Bilirubin Negative (NEGATIVE) Urine Urobilinogen Normal MG/DL (0.0-1.0) Urine Leukocyte Esterase 3+ (NEGATIVE) H Urine RBC 15-20 /HPF (0 - 2) H Urine WBC 30-40 /HPF (0 - 2) H Urine Squamous Epithelial Cells Many /LPF (NONE/OCC) H Urine Bacteria Many /HPF (NONE) H Urine Yeast Many /HPF (NONE) H Urine HCG, Qualitative Negative (NEGATIVE) EKG Diagnostic Results Troponin ordered: Yes When was troponin ordered?: May 01, 2020 EKG Time: 15:21 Rate: normal Rhythm: NSR ST Segments: no acute changes Other Impression Sinus rhythm, normal axis, normal intervals, no ST segment changes. Rhythm Strip Diag. Results Rhythm Strip Time: 15:21 EP Interpretation: yes Rate: 79 Rhythm: NSR, no PVC's, no ectopy CT/MRI/US Diagnostic Results CT/MRI/US Diagnostic Results : Impression IMPRESSION: No acute findings in the head/brain. Dictated By: May Jerez M.D Electronically Signed By:May Jerez M.D Signed Date/Time 05/01/20 1726 Last Vital Signs Date Time Temp Pulse Resp B/P (MAP) Pulse Ox O2 Delivery O2 Flow Rate FiO2 05/01/20 14:23 96.4 86 20 127/68 (87) 98 Room Air Disposition: ADMITTED INPATIENT Condition: Serious Brayan Lucero MD May 01, 2020 15:09
[2020-05-01] MEDS ORDERED: Haloperidol Lactate 5 MG in D5W 55 ML IVPB ONE (15:45)
--- NOTE | 2020-05-01 15:50 | NUR ---
ED Nurse Note: blood and urine sent to lab
[2020-05-01 16:14] LABS: BASOPHILS % (AUTO) 1.6 % (0.0-2.0); EOSINOPHILS % (AUTO) 2.4 % (0.0-3.0); HEMATOCRIT 32.1 % (37.0-47.0); HEMOGLOBIN 11.2 G/DL (12.0-16.0); MEAN CORPUSCULAR VOLUME 89 FL (80-99); MONOCYTES % (AUTO) 8.8 % (1.0-10.0); NEUTROPHILS % (AUTO) 70.2 % (45.0-75.0); PLATELET COUNT 188 K/UL (150-450); RED BLOOD COUNT 3.62 M/UL (4.20-5.40); RED CELL DISTRIBUTION WIDTH 17.1 % (11.6-14.8); WHITE BLOOD COUNT 7.3 K/UL (4.8-10.8)
[2020-05-01 16:16] LABS: APPEARANCE,URINE CLOUDY; BILIRUBIN, URINE NEGATIVE (NEGATIVE); COLOR,URINE PALE YELLOW; GLUCOSE, URINE (UA) NEGATIVE (NEGATIVE); KETONES,URINE 1+ (NEGATIVE); LEUKOCYTE ESTERASE ,URINE 3+ (NEGATIVE); NITRITE,URINE NEGATIVE (NEGATIVE); PH,URINE 6 (4.5-8.0); PROTEIN,URINE 3+ (NEGATIVE); UROBILINOGEN,URINE NORMAL MG/DL (0.0-1.0)
[2020-05-01 16:25] LABS: CALCIUM 7.1 MG/DL (8.5-10.1); CREATININE 4.1 MG/DL (0.55-1.30); POTASSIUM 3.4 MMOL/L (3.5-5.1)
[2020-05-01 16:29] LABS: PHOSPHORUS 3.3 MG/DL (2.5-4.9)
[2020-05-01 16:32] LABS: ALBUMIN 1.2 G/DL (3.4-5.0); ALBUMIN/GLOBULIN RATIO 0.3 (1.0-2.7); BILIRUBIN,TOTAL 0.4 MG/DL (0.2-1.0)
[2020-05-01] MEDS ORDERED: cefTRIAXone 1 GM in NS 55 ML IVPB ONE (16:45)
--- NOTE | 2020-05-01 17:00 | History and Physical ---
History of Present Illness General Reason for Hospitalization: General Complaint Present Illness Allergies: Coded Allergies: PENICILLINS (Verified Allergy, Unknown, 12/05/17) COVID-19 Screening Contact w/high risk pt: No Experienced COVID-19 symptoms?: No Medication History Scheduled Amlodipine Besylate* (Amlodipine Besylate*), 5 MG ORAL DAILY, (Reported) Arginine/Ascorbate Sod/Kumar AC (Arginaid Powder), 1 EACH PO TWICE A DAY, (Reported) Ascorbic Acid* (Ascorbic Acid*), 500 MG ORAL TWICE A DAY, (Reported) Aspirin* (Aspirin*), 81 MG ORAL DAILY, (Reported) Atorvastatin Calcium* (Lipitor*), 80 MG ORAL BEDTIME, (Reported) Benazepril Hcl* (Benazepril Hcl*), 40 MG ORAL DAILY, (Reported) Cefepime Hcl/Dextrose, Iso-Osm (Cefepime 2 Gm Injection), 2 GM IV EVERY 12 HOURS Enoxaparin* (Lovenox*), 40 MG SUBQ Q24H Insulin Glargine (Lantus), 20 UNITS SUBQ QHS, (Reported) Insulin Lispro (Humalog), 4 UNITS SUBQ THREE TIMES A DAY, (Reported) Metformin Hcl* (Metformin Hcl*), 500 MG ORAL TWICE A DAY, (Reported) Metronidazole* (Flagyl*), 500 MG ORAL Q8HR Metronidazole* (Flagyl*), 500 MG ORAL EVERY 8 HOURS, (Reported) Multivitamins* (Multivitamins*), 1 TAB ORAL DAILY, (Reported) Nut.tx.gluc.intoler,Lac-Fr,Soy (Glucerna), Unknown Dose PO TWICE A DAY, (Reported) Vancomycin In Dextrose,Iso-Osm (Vancomycin 750 Mg/150 Ml Bag), 750 MG IV EVERY 12 HOURS Zinc Sulfate (Zinc Sulfate*), 220 MG ORAL DAILY, (Reported) Patient History Limited by: medical condition History Provided By: Medical Record, EMS, PMD Healthcare decision maker Resuscitation status Full code Advanced Directive on File Patient History Narrative History is limited due to altered level of consciousness. This is a 69-year-old female with a past medical history of diabetes, hypertension, hyperlipidemia, and dementia. Patient sent to ER from assisted home for abnormal labs. Found to have creatinine of 3. Baseline is 0.8. The patient has been unable to urinate since yesterday. Patient is altered and unable to provide much history, however at baseline patient has dementia and is confused. The patient was recently discharged from [facility] after hospital stay from 03/31 to 04/12 for AMS and Osteomyelitis. The patient was found to have osteomyelitis of LLE on MRI and UTI. She underwent wound debridement on 04/07/2020 with bone biopsy and cultures obtained. She was started on IV antibiotics Vancomycin, Cefepime and also Flagyl. Patient was discharged to complete 6-week course via a LUE PICC line. She will need wound care, PT/OT and IV antibiotics at [facility]. Allergies: PCN (unknown reaction) PMHx: see HPI Past surgical, family, tobacco alcohol drug use history unknown. Unable to obtain due to ALOC From SNF ([facility]) In the ER the patient with stable vital signs. Found to have creatinine of 4.1, BUN 37. UA positive with 30-40 WBCs. Not much urine via straight cath. CT head was negative for acute abnormality. Review of Systems ROS Narrative Unable to obtain ROS due to ALOC. Physical Exam Physical Exam Narrative General: WDWN female. Agitated, A&O x 0 HEENT: Normocephalic cephalic atraumatic, pupils equal round reactive to light and accommodation, nares patent and no symmetrical, no tonsillar exudates, m ucous membranes DRY. CV: Regular rate regular rhythm, no murmurs, rubs, or gallops Pulm: Lungs clear to auscultation bilaterally. No wheezes, rhonchi, or rales GI: Soft, nontender, nondistended, bowel sounds present Neuro: No focal signs. moving all extremities Ext: No lower extremity edema bilaterally. LUE PICC line C/d/i. Skin: DRY SKIN, no rashes lesions or ulcers. Stage II sacral decub, POA. Bilateral LE wounds, covered with gauze. No active bleeding or drainage seen. Msk: Joints symmetrical in upper extremity and lower extremity bilaterally, no joint swelling. Lymph: No lymphadenopathy in upper extremity and lower extremity Last 24 Hour Vital Signs Date Time Temp Pulse Resp B/P (MAP) Pulse Ox O2 Delivery O2 Flow Rate FiO2 05/01/20 14:35 96.4 20 127/68 98 Room Air 05/01/20 14:35 86 20 Room Air 05/01/20 14:23 96.4 86 20 127/68 (87) 98 Room Air Laboratory Tests Test 05/01/20 15:30 05/01/20 15:50 White Blood Count 7.3 K/UL (4.8-10.8) Red Blood Count 3.62 M/UL (4.20-5.40) L Hemoglobin 11.2 G/DL (12.0-16.0) L Hematocrit 32.1 % (37.0-47.0) L Mean Corpuscular Volume 89 FL (80-99) Mean Corpuscular Hemoglobin 30.9 PG (27.0-31.0) Mean Corpuscular Hemoglobin Concent 34.9 G/DL (32.0-36.0) Red Cell Distribution Width 17.1 % (11.6-14.8) H Platelet Count 188 K/UL (150-450) Mean Platelet Volume 9.1 FL (6.5-10.1) Neutrophils (%) (Auto) 70.2 % (45.0-75.0) Lymphocytes (%) (Auto) 17.0 % (20.0-45.0) L Monocytes (%) (Auto) 8.8 % (1.0-10.0) Eosinophils (%) (Auto) 2.4 % (0.0-3.0) Basophils (%) (Auto) 1.6 % (0.0-2.0) Sodium Level 144 MMOL/L (136-145) Potassium Level 3.4 MMOL/L (3.5-5.1) L Chloride Level 111 MMOL/L (98-107) H Carbon Dioxide Level 19 MMOL/L (21-32) L Anion Gap 14 mmol/L (5-15) Blood Urea Nitrogen 37 mg/dL (7-18) H Creatinine 4.1 MG/DL (0.55-1.30) H Estimat Glomerular Filtration Rate 13.1 mL/min (>60) Glucose Level 113 MG/DL (74-106) H Calcium Level 7.1 MG/DL (8.5-10.1) L Phosphorus Level 3.3 MG/DL (2.5-4.9) Magnesium Level 1.5 MG/DL (1.8-2.4) L Total Bilirubin 0.4 MG/DL (0.2-1.0) Aspartate Amino Transf (AST/SGOT) 47 U/L (15-37) H Alanine Aminotransferase (ALT/SGPT) 22 U/L (12-78) Alkaline Phosphatase 112 U/L (46-116) Troponin I 0.012 ng/mL (0.000-0.056) Total Protein 5.0 G/DL (6.4-8.2) L Albumin 1.2 G/DL (3.4-5.0) L Globulin 3.8 g/dL Albumin/Globulin Ratio 0.3 (1.0-2.7) L Lipase 39 U/L (73-393) L Urine Color Pale yellow Urine Appearance Cloudy Urine pH 6 (4.5-8.0) Urine Specific [place] 1.030 (1.005-1.035) Urine Protein 3+ (NEGATIVE) H Urine Glucose (UA) Negative (NEGATIVE) Urine Ketones 1+ (NEGATIVE) H Urine Blood 4+ (NEGATIVE) H Urine Nitrite Negative (NEGATIVE) Urine Bilirubin Negative (NEGATIVE) Urine Urobilinogen Normal MG/DL (0.0-1.0) Urine Leukocyte Esterase 3+ (NEGATIVE) H Urine RBC 15-20 /HPF (0 - 2) H Urine WBC 30-40 /HPF (0 - 2) H Urine Squamous Epithelial Cells Many /LPF (NONE/OCC) H Urine Bacteria Many /HPF (NONE) H Urine Yeast Many /HPF (NONE) H Urine HCG, Qualitative Negative (NEGATIVE) Height (Feet): 5 Height (Inches): 7.00 Weight (Pounds): 130 Medications Current Medications Medications (Trade) Dose Ordered Sig/Enrike Route PRN Reason Start Time Stop Time Status Last Admin Dose Admin Ceftriaxone Sodium 1 gm/ Sodium Chloride 55 ml @ 110 mls/hr ONCE ONCE IVPB 05/01/20 16:45 05/01/20 17:14 Assessment/Plan Assessment/Plan: Is a 69-year-old female presenting with acute encephalopathy, JYOTI, acute UTI. #Acute kidney injury, suspect prerenal given dehydrated state on physical exam #Hypokalemia #Hypomagnesemia -Admit to telemetry -Urine sodium, urine creatinine, urine eosinophils -Renal ultrasound -Insert Vargas catheter for strict I's and O's -Check vanc level -Gentle IV fluids -Avoid nephrotoxins -Trend creatinine -Appreciate nephro consult: Dr. Waterman -mario carey PRN #Acute metabolic encephalopathy #Underlying dementia #Acute UTI #LLE osteomyelitis s/p debridement on 04/07/2020 with bone biopsy and cultures obtained. #Stage II sacral decubitus ulcer > CTH no acute abnormality >EKG reviewed -Blood cultures -Urine culture -Appreciate ID consult: Bola -Lora gen surgery consult: Jasmeet -Neurology consult: D/w Dr. Lee -Holding Vanc pending Vanco level -Continue Cefepime (renally dosed). (04/07 - ) -Continue Flagyl (04/07 - ) -Continue Abx for 42 days -swallow eval -check TSH -check lactate -trend troponin #DM2 -Hold lantus -hold metformin -SSI -accuchecks -hypoglycemia protocol #essential hypertension #hyperlipidemia -hold home amlodipine for now -hold benazepril -holding asa -holding statin FENPPX DVTPPX: HSQ Fluids: as above Diet: NPO pending swallow eval Lines: PIV, LUE PICC PT/OT: pending Code status: Full per SNF Dispo: back to SNF Reason for Continued Hospitalization: jyoti MIPS ([employer]-based Incentive Payment System) Applicable CPT: 36584, 15619 CHECK ALL THAT ARE MET: [] Measure #5 (CHF): All ages. Prescribe DESTINEY/ARB upon discharge for patients with left ventricular systolic dysfunction. If not, the reason is clearly documented in the medical chart [] Measure #8 (CHF): All ages. Prescribe a beta jennifer upon discharge for patients with left ventricular systolic dysfunction. If not, the reason is clearly documented in the medical chart. [] Measure #47: Advance care plan or surrogate decision maker documented in the medical record. [x] Measure #130 The provider has documented, updated, or reviewed the patient s current medication list and has documented it in the patients note. [x] Measure #374 (All): Send report to referring provider. [] Measure #407(Sepsis due to MSSA bacteremia): Age 18+ Patient treated with a beta-lactam antibiotic (Nafcillin, Oxacillin or Cefazolin) as definitive therapy. MEDICAL COMPLEXITYHigh complexity medical decision making (need 2/3 categories)Problem - need 4 points [x]Acute/new problem with new plan for workup (4 points, 1 max) [] Acute/new problem without additional workup (3 points, 1 max) [x] Unstable chronic problem actively being managed (2 point each, 2 max) [x] Stable chronic problem actively being managed (1 point each, 2 max) [x] Self-limited/transient process (constipation, muscle ache, etc) (1 point each, 2 max) Data - need 4 points [x] Reviewed labs/imaging studies (1 points, 2 max) [x] Independent review of imaging (EKG, xrays, etc) (2 points, 2 max) [x] Discussed case with consult/other MD/RN (2 points, 2 max) High Risk - qualify if have one of the following: [x] Severe exacerbation of acute problem, acute mental status change, IV narcotics, monitoring drug levels (vancomycin, INR, tacrolimus etc) I spent 72 minutes on this patient's case, and 40 mins was dedicated to counseling and/or care coordination. Discussed with nephro, ID, gen surgery, neurology. I spent an additional 33 minutes reviewing medical records including prior hospitalization notes, clinic notes, consultation notes, prior labs, and prior imaging. Time of note may not reflect time of encounter Patrick Cerda D.O. May 01, 2020 17:00
--- NOTE | 2020-05-01 17:04 | NUR ---
ED Nurse Note: Pt was taken to CT.
--- NOTE | 2020-05-01 17:11 | NUR ---
ED Nurse Note: Pt returned from ct on stable condition
--- NOTE | 2020-05-01 17:16 | NUR ---
ED Nurse Note: Dr. Alvarez for Dr. Veras at pt's bedside
--- NOTE | 2020-05-01 17:26 | Diagnostic Imaging Report ---
EXAM: CT Head Without Intravenous Contrast CLINICAL HISTORY: AMS TECHNIQUE: Axial computed tomography images of the head/brain without intravenous contrast. CTDI is 53.40 mGy and DLP is 1175.50 mGy-cm. One or more of the following dose reduction techniques were used: automated exposure control, adjustment of the mA and/or kV according to patient size, use of iterative reconstruction technique. COMPARISON: CT head without contrast 03/31/2020 FINDINGS: Brain: There is generalized age-related cerebral volume loss. Redemonstration of areas of hypoattenuation within the supratentorial white matter which are nonspecific, but likely the sequela of chronic microvascular ischemic disease. No hemorrhage. Ventricles: Unremarkable. No ventriculomegaly. Bones/joints: Unremarkable. No acute fracture. Soft tissues: Unremarkable. Sinuses: Unremarkable as visualized. No acute sinusitis. Mastoid air cells: Unremarkable as visualized. No mastoid effusion. IMPRESSION: No acute findings in the head/brain.
--- NOTE | 2020-05-01 19:12 | NUR ---
ED Nurse Note: hand off given to ZACH Anderson
[2020-05-01 19:13] VITALS: BP 112/61
--- NOTE | 2020-05-01 19:13 | NUR ---
ED Nurse Note: pt laying in bed with eyes closed, opens eyes when name is called. Unable to assess orientation at the moment pt is nonverbal. Pt breathing even and unlabored. Vital signs stable.
[2020-05-01] MEDS ORDERED: LORazepam Inj 2mg/ml 1ml IV PRN (20:30)
[2020-05-01] MEDS ORDERED: Varibar Thin Liquid powder 148gm MC PRN (21:00)
[2020-05-01] MEDS: NovoLOG Insulin Flexpen SUBQ SCH (21:00)
[2020-05-01] MEDS ORDERED: Varibar Pudding 230ml MC PRN (21:00)
[2020-05-01] MEDS ORDERED: Varibar Nectar 240ml MC PRN (21:00)
[2020-05-01] MEDS ORDERED: Varibar Honey 250ml MC PRN (21:00)
[2020-05-01] MEDS ORDERED: Dyna-Hex 2% Top Sol 2oz TOPIC ONE (21:15)
[2020-05-01] MEDS: Heparin 5000 units/ml inj SUBQ SCH (22:00)
[2020-05-01 22:18] VITALS: BP 116/65
--- NOTE | 2020-05-01 23:27 | NUR ---
ED Nurse Note: report given to
--- NOTE | 2020-05-01 23:40 | NUR ---
NURSES NOTE: Received pt from JUSTO Anderson RN . Pt A/OX1, non communicative. No outward s/s of distress noted. Breathing pattern is even and unlabored on RA. VS within normal limits. Head to toe assessment performed. PICC line in place JEFFERY. No s/s of infection noted. Orders processed. Pressure sores noted. Pictures taken and uploaded in the system. All due medications will be administered. Bed at lowest level. Pt will continue to be monitored.
[2020-05-01 23:45] VITALS: BP 125/69
--- NOTE | 2020-05-01 23:45 | NUR ---
TRANSFER TO FLOOR: Patient transferred to [facility] as ordered via gurney accompanied by staff midwife/apprenticeship director. per EDMD ok to transfer. Report given to ZACH Mcdonald. Belongings and admission packet given to ZACH Mcdonald.
[2020-05-02] VITALS: BP 140/72
[2020-05-02 04:00] VITALS: BP 138/82
--- NOTE | 2020-05-02 05:35 | Diagnostic Imaging Report ---
EXAM: US Retroperitoneal Limited, Renal CLINICAL HISTORY: RENAL-A TECHNIQUE: Real-time limited ultrasound of the retroperitoneum with image documentation. COMPARISON: No previous study. FINDINGS: Right kidney: Right kidney measures 11.6 x 4.9 x 5.5 cm. Increased echogenicity of both kidneys. No hydronephrosis appeared No stones. Left kidney: Left kidney measures 11.5 x 5.6 x 4.7 cm. Bladder: The bladder is mildly distended. Bilateral ureteral jets are visualized Pleural space: Incidental note is made of left pleural effusion. IMPRESSION: 1. Increased echogenicity of both kidneys compatible with medical renal disease. 2. No hydronephrosis. 3. Mildly distended bladder.
[2020-05-02] MEDS: Heparin 5000 units/ml inj SUBQ SCH ×3 (06:49→22:09)
[2020-05-02 08:00] VITALS: BP 122/58
[2020-05-02] MEDS: NovoLOG Insulin Flexpen SUBQ SCH ×3 (08:01→17:35)
--- NOTE | 2020-05-02 08:35 | NUR ---
NURSE HAND-OFF: Important Events on Shift:[Pressure ulcer pictures taken. Pt also has redness between bilateral upper thighs.] Patient Status: [Stable] Diet: [NPO] Pending Orders: [NONE] Pending Results/Labs:[Creatinine, Sodium random urine, Eosinophil Urine] Pending MD notification:[NONE] Latest Vital Signs: Temperature 98.4 , Pulse 75 , B/P 138 /82 , Respiratory Rate 16 , O2 SAT 91 , Room Air, O2 Flow Rate . Vital Sign Comment: [WNL] Latest Hernandez Fall Score: 50 Fall Risk: High Risk Safety Measures: Call light Within Reach, Bed Alarm , Side Rails Side Rails x2, Bed position Low and Locked. Fall Precautions: Yellow Socks Yellow Gown Report given to [ZACH Vasquez].
[2020-05-02] MEDS ORDERED: Cefepime HCl 1 GM in D5W 55 ML IVPB ONE (09:00)
--- NOTE | 2020-05-02 09:33 | Neurology Progress Note ---
Interim History Interim History Interim History 69-year-old female with a past medical history of diabetes, hypertension, hyperlipidemia, and dementia. Patient sent to ER from group home home for abnormal labs. Found to have creatinine of 3. Baseline is 0.8. The patient has been unable to urinate since yesterday. Patient is altered and unable to provide much history, however at baseline patient has dementia and is confused. The patient was recently discharged from [facility] after hospital stay from 03/31 to 04/12 for AMS and Osteomyelitis. The patient was found to mejia ve osteomyelitis of LLE on MRI and UTI. today more alert, on ivfs. Tracks to stimuli Objective Physical Exam Last Vital Signs Date Time Temp Pulse Resp B/P (MAP) Pulse Ox O2 Delivery O2 Flow Rate FiO2 05/02/20 08:00 98.9 101 20 122/58 (79) 91 05/02/20 01:09 Room Air Laboratory Tests Test 05/01/20 15:30 05/01/20 15:50 05/02/20 01:38 05/02/20 06:40 White Blood Count 7.3 K/UL (4.8-10.8) Red Blood Count 3.62 M/UL (4.20-5.40) L Hemoglobin 11.2 G/DL (12.0-16.0) L Hematocrit 32.1 % (37.0-47.0) L Mean Corpuscular Volume 89 FL (80-99) Mean Corpuscular Hemoglobin 30.9 PG (27.0-31.0) Mean Corpuscular Hemoglobin Concent 34.9 G/DL (32.0-36.0) Red Cell Distribution Width 17.1 % (11.6-14.8) H Platelet Count 188 K/UL (150-450) Mean Platelet Volume 9.1 FL (6.5-10.1) Neutrophils (%) (Auto) 70.2 % (45.0-75.0) Lymphocytes (%) (Auto) 17.0 % (20.0-45.0) L Monocytes (%) (Auto) 8.8 % (1.0-10.0) Eosinophils (%) (Auto) 2.4 % (0.0-3.0) Basophils (%) (Auto) 1.6 % (0.0-2.0) Sodium Level 144 MMOL/L (136-145) Potassium Level 3.4 MMOL/L (3.5-5.1) L Chloride Level 111 MMOL/L (98-107) H Carbon Dioxide Level 19 MMOL/L (21-32) L Anion Gap 14 mmol/L (5-15) Blood Urea Nitrogen 37 mg/dL (7-18) H Creatinine 4.1 MG/DL (0.55-1.30) H Estimat Glomerular Filtration Rate 13.1 mL/min (>60) Glucose Level 113 MG/DL (74-106) H Hemoglobin A1c 10.0 % (4.3-6.0) H Calcium Level 7.1 MG/DL (8.5-10.1) L Phosphorus Level 3.3 MG/DL (2.5-4.9) Magnesium Level 1.5 MG/DL (1.8-2.4) L Total Bilirubin 0.4 MG/DL (0.2-1.0) Aspartate Amino Transf (AST/SGOT) 47 U/L (15-37) H Alanine Aminotransferase (ALT/SGPT) 22 U/L (12-78) Alkaline Phosphatase 112 U/L (46-116) Troponin I 0.012 ng/mL (0.000-0.056) 0.008 ng/mL (0.000-0.056) Total Protein 5.0 G/DL (6.4-8.2) L Albumin 1.2 G/DL (3.4-5.0) L Globulin 3.8 g/dL Albumin/Globulin Ratio 0.3 (1.0-2.7) L Lipase 39 U/L (73-393) L Thyroid Stimulating Hormone (TSH) 1.607 uiU/mL (0.358-3.740) Random Vancomycin Level 33.5 ug/mL Urine Color Pale yellow Urine Appearance Cloudy Urine pH 6 (4.5-8.0) Urine Specific [place] 1.030 (1.005-1.035) Urine Protein 3+ (NEGATIVE) H Urine Glucose (UA) Negative (NEGATIVE) Urine Ketones 1+ (NEGATIVE) H Urine Blood 4+ (NEGATIVE) H Urine Nitrite Negative (NEGATIVE) Urine Bilirubin Negative (NEGATIVE) Urine Urobilinogen Normal MG/DL (0.0-1.0) Urine Leukocyte Esterase 3+ (NEGATIVE) H Urine RBC 15-20 /HPF (0 - 2) H Urine WBC 30-40 /HPF (0 - 2) H Urine Squamous Epithelial Cells Many /LPF (NONE/OCC) H Urine Bacteria Many /HPF (NONE) H Urine Yeast Many /HPF (NONE) H Urine HCG, Qualitative Negative (NEGATIVE) Lactic Acid Level 1.30 mmol/L (0.4-2.0) POC Whole Blood Glucose 260 MG/DL (74-106) H Test 05/02/20 07:08 Troponin I 0.009 ng/mL (0.000-0.056) Impression/Recommendations Problems: (1) Sepsis (2) Hyperkalemia (3) Leukocytosis (4) Altered mental status (5) Diabetes mellitus out of control (6) Acute on chronic renal failure (7) NSTEMI (non-ST elevated myocardial infarction) (8) High anion gap metabolic acidosis (9) Sacral decubitus ulcer (10) Decubitus ulcer of heel (11) UTI (urinary tract infection) (12) JYOTI (acute kidney injury) Diagnostic Impression acute metabolic encephalopathy jyoti sepsis baseline dementia cont ivfs delirium precautions no need for mri brain cont Thee Burden MD May 02, 2020 09:33
--- NOTE | 2020-05-02 09:33 | Consultation ---
History of Present Illness General Date patient seen: May 01, 2020 Chief Complaint: General Complaint Present Illness HPI 69-year-old female with a past medical history of diabetes, hypertension, hyperlipidemia, and dementia. Patient sent to ER from [facility] for abnormal labs. Found to have creatinine of 3. Baseline is 0.8. The patient has been unable to urinate since yesterday. Patient is altered and unable to provide much history, however at baseline patient has dementia and is confused. The patient was recently discharged from [facility] after hospital stay from 03/31 to 04/12 for AMS and Osteomyelitis. The patient was found to have osteomyelitis of LLE on MRI and UTI Pt very confused unable to give hx no tpa indicated Allergies: Coded Allergies: PENICILLINS (Verified Allergy, Unknown, 12/05/17) Medication History Scheduled Amlodipine Besylate* (Amlodipine Besylate*), 5 MG ORAL DAILY, (Reported) Arginine/Ascorbate Sod/Kumar AC (Arginaid Powder), 1 EACH PO TWICE A DAY, (Reported) Ascorbic Acid* (Ascorbic Acid*), 500 MG ORAL TWICE A DAY, (Reported) Aspirin* (Aspirin*), 81 MG ORAL DAILY, (Reported) Atorvastatin Calcium* (Lipitor*), 80 MG ORAL BEDTIME, (Reported) Benazepril Hcl* (Benazepril Hcl*), 40 MG ORAL DAILY, (Reported) Cefepime Hcl/Dextrose, Iso-Osm (Cefepime 2 Gm Injection), 2 GM IV EVERY 12 HOURS Enoxaparin* (Lovenox*), 40 MG SUBQ Q24H Insulin Glargine (Lantus), 20 UNITS SUBQ QHS, (Reported) Insulin Lispro (Humalog), 4 UNITS SUBQ THREE TIMES A DAY, (Reported) Metformin Hcl* (Metformin Hcl*), 500 MG ORAL TWICE A DAY, (Reported) Metronidazole* (Flagyl*), 500 MG ORAL Q8HR Metronidazole* (Flagyl*), 500 MG ORAL EVERY 8 HOURS, (Reported) Multivitamins* (Multivitamins*), 1 TAB ORAL DAILY, (Reported) Nut.tx.gluc.intoler,Lac-Fr,Soy (Glucerna), Unknown Dose PO TWICE A DAY, (R eported) Vancomycin In Dextrose,Iso-Osm (Vancomycin 750 Mg/150 Ml Bag), 750 MG IV EVERY 12 HOURS Zinc Sulfate (Zinc Sulfate*), 220 MG ORAL DAILY, (Reported) Patient History Healthcare decision maker Resuscitation status Advanced Directive on File Physical Exam Last 24 Hour Vital Signs Date Time Temp Pulse Resp B/P (MAP) Pulse Ox O2 Delivery O2 Flow Rate FiO2 05/02/20 08:00 98.9 101 20 122/58 (79) 91 05/02/20 04:00 98.4 75 16 138/82 (100) 91 05/02/20 01:09 Room Air 05/02/20 00:00 97.8 81 18 140/72 (94) 81 05/01/20 23:45 97.7 78 18 125/69 100 Room Air 05/01/20 23:45 97.7 78 18 125/69 100 Room Air 05/01/20 22:18 98.0 84 18 116/65 100 Room Air 05/01/20 19:13 98.2 78 18 112/61 100 Room Air 05/01/20 14:35 96.4 20 127/68 98 Room Air 05/01/20 14:35 86 20 Room Air 05/01/20 14:23 96.4 86 20 127/68 (87) 98 Room Air Intake and Output 05/01/20 05/02/20 19:00 07:00 Output Total 200 ml Balance -200 ml Output Urine Total 200 ml # Voids 2 # Bowel Movements 1 Laboratory Tests Test 05/01/20 15:30 05/01/20 15:50 05/02/20 01:38 05/02/20 06:40 White Blood Count 7.3 K/UL (4.8-10.8) Red Blood Count 3.62 M/UL (4.20-5.40) L Hemoglobin 11.2 G/DL (12.0-16.0) L Hematocrit 32.1 % (37.0-47.0) L Mean Corpuscular Volume 89 FL (80-99) Mean Corpuscular Hemoglobin 30.9 PG (27.0-31.0) Mean Corpuscular Hemoglobin Concent 34.9 G/DL (32.0-36.0) Red Cell Distribution Width 17.1 % (11.6-14.8) H Platelet Count 188 K/UL (150-450) Mean Platelet Volume 9.1 FL (6.5-10.1) Neutrophils (%) (Auto) 70.2 % (45.0-75.0) Lymphocytes (%) (Auto) 17.0 % (20.0-45.0) L Monocytes (%) (Auto) 8.8 % (1.0-10.0) Eosinophils (%) (Auto) 2.4 % (0.0-3.0) Basophils (%) (Auto) 1.6 % (0.0-2.0) Sodium Level 144 MMOL/L (136-145) Potassium Level 3.4 MMOL/L (3.5-5.1) L Chloride Level 111 MMOL/L (98-107) H Carbon Dioxide Level 19 MMOL/L (21-32) L Anion Gap 14 mmol/L (5-15) Blood Urea Nitrogen 37 mg/dL (7-18) H Creatinine 4.1 MG/DL (0.55-1.30) H Estimat Glomerular Filtration Rate 13.1 mL/min (>60) Glucose Level 113 MG/DL (74-106) H Hemoglobin A1c 10.0 % (4.3-6.0) H Calcium Level 7.1 MG/DL (8.5-10.1) L Phosphorus Level 3.3 MG/DL (2.5-4.9) Magnesium Level 1.5 MG/DL (1.8-2.4) L Total Bilirubin 0.4 MG/DL (0.2-1.0) Aspartate Amino Transf (AST/SGOT) 47 U/L (15-37) H Alanine Aminotransferase (ALT/SGPT) 22 U/L (12-78) Alkaline Phosphatase 112 U/L (46-116) Troponin I 0.012 ng/mL (0.000-0.056) 0.008 ng/mL (0.000-0.056) Total Protein 5.0 G/DL (6.4-8.2) L Albumin 1.2 G/DL (3.4-5.0) L Globulin 3.8 g/dL Albumin/Globulin Ratio 0.3 (1.0-2.7) L Lipase 39 U/L (73-393) L Thyroid Stimulating Hormone (TSH) 1.607 uiU/mL (0.358-3.740) Random Vancomycin Level 33.5 ug/mL Urine Color Pale yellow Urine Appearance Cloudy Urine pH 6 (4.5-8.0) Urine Specific [place] 1.030 (1.005-1.035) Urine Protein 3+ (NEGATIVE) H Urine Glucose (UA) Negative (NEGATIVE) Urine Ketones 1+ (NEGATIVE) H Urine Blood 4+ (NEGATIVE) H Urine Nitrite Negative (NEGATIVE) Urine Bilirubin Negative (NEGATIVE) Urine Urobilinogen Normal MG/DL (0.0-1.0) Urine Leukocyte Esterase 3+ (NEGATIVE) H Urine RBC 15-20 /HPF (0 - 2) H Urine WBC 30-40 /HPF (0 - 2) H Urine Squamous Epithelial Cells Many /LPF (NONE/OCC) H Urine Bacteria Many /HPF (NONE) H Urine Yeast Many /HPF (NONE) H Urine HCG, Qualitative Negative (NEGATIVE) Lactic Acid Level 1.30 mmol/L (0.4-2.0) POC Whole Blood Glucose 260 MG/DL (74-106) H Test 05/02/20 07:08 Troponin I 0.009 ng/mL (0.000-0.056) Microbiology Date/Time Source Procedure Growth Status 05/01/20 15:50 Urine,Clean Catch Urine Culture - Preliminary NO GROWTH Resulted 05/01/20 15:30 Rectum Received Height (Feet): 5 Height (Inches): 7.00 Weight (Pounds): 130 Medications Current Medications Medications (Trade) Dose Ordered Sig/Enrike Route PRN Reason Start Time Stop Time Status Last Admin Dose Admin Barium Sulfate (Varibar Honey) 250 ml NOW PRN MC RAD 05/01/20 21:00 05/04/20 20:57 Barium Sulfate (Varibar [place]) 240 ml NOW PRN MC RAD 05/01/20 21:00 05/04/20 20:57 Barium Sulfate (Varibar Pudding) 230 ml NOW PRN MC RAD 05/01/20 21:00 05/04/20 20:57 Barium Sulfate (Varibar Thin Liquid powder) 148 gm NOW PRN MC RAD 05/01/20 21:00 05/04/20 20:57 Bisacodyl (Dulcolax) 10 mg DAILYPRN PRN RECTAL Constipation 05/01/20 20:30 07/30/20 20:29 Dextrose (Dextrose 50%) 25 ml Q30M PRN IV Hypoglycemia 05/01/20 20:30 07/30/20 20:29 Dextrose (Dextrose 50%) 50 ml Q30M PRN IV Hypoglycemia 05/01/20 20:30 07/30/20 20:29 Dextrose/Sodium Chloride 1,000 ml @ 75 mls/hr [id number] IV 05/01/20 21:30 05/31/20 21:29 05/01/20 00:30 Heparin Sodium (Porcine) (Heparin 5000 units/ml) 5,000 units EVERY 8 HOURS SUBQ 05/01/20 22:00 06/15/20 21:59 05/02/20 06:49 Insulin Aspart (NovoLOG) BEFORE MEALS AND HS SUBQ 05/01/20 21:00 07/30/20 20:59 05/02/20 08:01 Lorazepam (Ativan 2mg/ml 1ml) 0.5 mg Q4H PRN IV For Anxiety 05/01/20 20:30 05/08/20 20:29 Metronidazole 100 ml @ 100 mls/hr Q8H IVPB 05/02/20 00:00 05/09/20 00:00 05/02/20 08:03 Ondansetron HCl (Zofran) 4 mg Q6H PRN IVP Nausea & Vomiting 05/01/20 20:30 05/31/20 20:29 Objective Narrative somnolent confused, moved all 4 cc 35 min Assessment/Plan Problem List: (1) Sepsis ICD Codes: A41.9 - Sepsis, unspecified organism SNOMED: 97647460 (2) Hyperkalemia ICD Codes: E87.5 - Hyperkalemia SNOMED: 56851505 (3) Leukocytosis ICD Codes: D72.829 - Elevated white blood cell count, unspecified SNOMED: 298966499, 017338713 (4) Altered mental status ICD Codes: R41.82 - Altered mental status, unspecified SNOMED: 641135966 (5) Diabetes mellitus out of control ICD Codes: E11.65 - Type 2 diabetes mellitus with hyperglycemia SNOMED: 81430297, 663996269 (6) Acute on chronic renal failure ICD Codes: N17.9 - Acute kidney failure, unspecified; N18.9 - Chronic kidney disease, unspecified SNOMED: 921674615 (7) NSTEMI (non-ST elevated myocardial infarction) ICD Codes: I21.4 - Non-ST elevation (NSTEMI) myocardial infarction SNOMED: 686446980 (8) High anion gap metabolic acidosis ICD Codes: E87.2 - Acidosis SNOMED: 83588037 (9) Sacral decubitus ulcer ICD Codes: L89.159 - Pressure ulcer of sacral region, unspecified stage SNOMED: 506321055 (10) Decubitus ulcer of heel ICD Codes: L89.609 - Pressure ulcer of unspecified heel, unspecified stage SNOMED: 267094242 (11) UTI (urinary tract infection) ICD Codes: N39.0 - Urinary tract infection, site not specified SNOMED: 80748805 (12) JYOTI (acute kidney injury) ICD Codes: N17.9 - Acute kidney failure, unspecified SNOMED: 68980819, 0750915 Assessment/Plan: acute metabolic encephalopathy jyoti sepsis baseline dementia cont ivfs delirium precautions no need for mri brain cont Thee Burden MD May 02, 2020 09:33
[2020-05-02] MEDS: D5NS 1,000 ML IV SCH ×2 (10:03→18:56)
--- NOTE | 2020-05-02 10:14 | Consultation ---
History of Present Illness General Chief Complaint: General Complaint Present Illness HPI This is a 69-year-old female with a past medical history of diabetes, hypertension, hyperlipidemia, and dementia. Patient sent to ER from [facility] for abnormal labs. Found to have creatinine of 3. Baseline is 0.8. The patient has been unable to urinate since yesterday. Patient is altered and unable to provide much history, however at baseline patient has dementia and is confused. The patient was recently discharged from [facility] after hospital stay from 03/31 to 04/12 for AMS and Osteomyelitis. The patient was found to have osteomyelitis of LLE on MRI and UTI. She underwent wound debridement on 04/07/2020 with bone biopsy and cultures obtained. She was started on IV antibiotics Vancomycin, Cefepime and also Flagyl. Patient was discharged to complete 6-week course via a LUE PICC line. She will need wound care, PT/OT and IV antibiotics at SNF. Allergies: PCN (unknown reaction) PMHx: see HPI Past surgical, family, tobacco alcohol drug use history unknown. Unable to obtain due to ALOC From [facility] In the ER the patient with stable vital signs. Found to have creatinine of 4.1, BUN 37. UA positive with 30-40 WBCs. Not much urine via straight cath. CT head was negative for acute abnorma Allergies: Coded Allergies: PENICILLINS (Verified Allergy, Unknown, 12/05/17) Medication History Scheduled Amlodipine Besylate* (Amlodipine Besylate*), 5 MG ORAL DAILY, (Reported) Arginine/Ascorbate Sod/Kumar AC (Arginaid Powder), 1 EACH PO TWICE A DAY, (Rep orted) Ascorbic Acid* (Ascorbic Acid*), 500 MG ORAL TWICE A DAY, (Reported) Aspirin* (Aspirin*), 81 MG ORAL DAILY, (Reported) Atorvastatin Calcium* (Lipitor*), 80 MG ORAL BEDTIME, (Reported) Benazepril Hcl* (Benazepril Hcl*), 40 MG ORAL DAILY, (Reported) Cefepime Hcl/Dextrose, Iso-Osm (Cefepime 2 Gm Injection), 2 GM IV EVERY 12 HOURS Enoxaparin* (Lovenox*), 40 MG SUBQ Q24H Insulin Glargine (Lantus), 20 UNITS SUBQ QHS, (Reported) Insulin Lispro (Humalog), 4 UNITS SUBQ THREE TIMES A DAY, (Reported) Metformin Hcl* (Metformin Hcl*), 500 MG ORAL TWICE A DAY, (Reported) Metronidazole* (Flagyl*), 500 MG ORAL Q8HR Metronidazole* (Flagyl*), 500 MG ORAL EVERY 8 HOURS, (Reported) Multivitamins* (Multivitamins*), 1 TAB ORAL DAILY, (Reported) Nut.tx.gluc.intoler,Lac-Fr,Soy (Glucerna), Unknown Dose PO TWICE A DAY, (Reported) Vancomycin In Dextrose,Iso-Osm (Vancomycin 750 Mg/150 Ml Bag), 750 MG IV EVERY 12 HOURS Zinc Sulfate (Zinc Sulfate*), 220 MG ORAL DAILY, (Reported) Patient History Healthcare decision maker Resuscitation status Advanced Directive on File Review of Systems ROS Narrative unable to obtain due to AMS Physical Exam General Appearance: no apparent distress Lines, tubes and drains: peripheral HEENT: normocephalic, atraumatic Neck: non-tender, normal alignment, supple Respiratory/Chest: chest wall non-tender, lungs clear, normal breath sounds Cardiovascular/Chest: normal peripheral pulses, normal rate, regular rhythm Extremities: trace edema Last 24 Hour Vital Signs Date Time Temp Pulse Resp B/P (MAP) Pulse Ox O2 Delivery O2 Flow Rate FiO2 05/02/20 08:00 98.9 101 20 122/58 (79) 91 05/02/20 04:00 98.4 75 16 138/82 (100) 91 05/02/20 01:09 Room Air 05/02/20 00:00 97.8 81 18 140/72 (94) 81 05/01/20 23:45 97.7 78 18 125/69 100 Room Air 05/01/20 23:45 97.7 78 18 125/69 100 Room Air 05/01/20 22:18 98.0 84 18 116/65 100 Room Air 05/01/20 19:13 98.2 78 18 112/61 100 Room Air 05/01/20 14:35 96.4 20 127/68 98 Room Air 05/01/20 14:35 86 20 Room Air 05/01/20 14:23 96.4 86 20 127/68 (87) 98 Room Air Intake and Output 05/01/20 05/02/20 19:00 07:00 Output Total 200 ml Balance -200 ml Output Urine Total 200 ml # Voids 2 # Bowel Movements 1 Laboratory Tests Test 05/01/20 15:30 05/01/20 15:50 05/02/20 01:38 05/02/20 06:40 White Blood Count 7.3 K/UL (4.8-10.8) Red Blood Count 3.62 M/UL (4.20-5.40) L Hemoglobin 11.2 G/DL (12.0-16.0) L Hematocrit 32.1 % (37.0-47.0) L Mean Corpuscular Volume 89 FL (80-99) Mean Corpuscular Hemoglobin 30.9 PG (27.0-31.0) Mean Corpuscular Hemoglobin Concent 34.9 G/DL (32.0-36.0) Red Cell Distribution Width 17.1 % (11.6-14.8) H Platelet Count 188 K/UL (150-450) Mean Platelet Volume 9.1 FL (6.5-10.1) Neutrophils (%) (Auto) 70.2 % (45.0-75.0) Lymphocytes (%) (Auto) 17.0 % (20.0-45.0) L Monocytes (%) (Auto) 8.8 % (1.0-10.0) Eosinophils (%) (Auto) 2.4 % (0.0-3.0) Basophils (%) (Auto) 1.6 % (0.0-2.0) Sodium Level 144 MMOL/L (136-145) Potassium Level 3.4 MMOL/L (3.5-5.1) L Chloride Level 111 MMOL/L (98-107) H Carbon Dioxide Level 19 MMOL/L (21-32) L Anion Gap 14 mmol/L (5-15) Blood Urea Nitrogen 37 mg/dL (7-18) H Creatinine 4.1 MG/DL (0.55-1.30) H Estimat Glomerular Filtration Rate 13.1 mL/min (>60) Glucose Level 113 MG/DL (74-106) H Hemoglobin A1c 10.0 % (4.3-6.0) H Calcium Level 7.1 MG/DL (8.5-10.1) L Phosphorus Level 3.3 MG/DL (2.5-4.9) Magnesium Level 1.5 MG/DL (1.8-2.4) L Total Bilirubin 0.4 MG/DL (0.2-1.0) Aspartate Amino Transf (AST/SGOT) 47 U/L (15-37) H Alanine Aminotransferase (ALT/SGPT) 22 U/L (12-78) Alkaline Phosphatase 112 U/L (46-116) Troponin I 0.012 ng/mL (0.000-0.056) 0.008 ng/mL (0.000-0.056) Total Protein 5.0 G/DL (6.4-8.2) L Albumin 1.2 G/DL (3.4-5.0) L Globulin 3.8 g/dL Albumin/Globulin Ratio 0.3 (1.0-2.7) L Lipase 39 U/L (73-393) L Thyroid Stimulating Hormone (TSH) 1.607 uiU/mL (0.358-3.740) Random Vancomycin Level 33.5 ug/mL Urine Color Pale yellow Urine Appearance Cloudy Urine pH 6 (4.5-8.0) Urine Specific [place] 1.030 (1.005-1.035) Urine Protein 3+ (NEGATIVE) H Urine Glucose (UA) Negative (NEGATIVE) Urine Ketones 1+ (NEGATIVE) H Urine Blood 4+ (NEGATIVE) H Urine Nitrite Negative (NEGATIVE) Urine Bilirubin Negative (NEGATIVE) Urine Urobilinogen Normal MG/DL (0.0-1.0) Urine Leukocyte Esterase 3+ (NEGATIVE) H Urine RBC 15-20 /HPF (0 - 2) H Urine WBC 30-40 /HPF (0 - 2) H Urine Squamous Epithelial Cells Many /LPF (NONE/OCC) H Urine Bacteria Many /HPF (NONE) H Urine Yeast Many /HPF (NONE) H Urine HCG, Qualitative Negative (NEGATIVE) Lactic Acid Level 1.30 mmol/L (0.4-2.0) POC Whole Blood Glucose 260 MG/DL (74-106) H Test 05/02/20 07:08 Troponin I 0.009 ng/mL (0.000-0.056) Microbiology Date/Time Source Procedure Growth Status 05/01/20 15:50 Urine,Clean Catch Urine Culture - Preliminary NO GROWTH Resulted 05/01/20 15:30 Rectum Received Height (Feet): 5 Height (Inches): 7.00 Weight (Pounds): 130 Medications Current Medications Medications (Trade) Dose Ordered Sig/Enrike Route PRN Reason Start Time Stop Time Status Last Admin Dose Admin Barium Sulfate (Varibar Honey) 250 ml NOW PRN RAD 05/01/20 21:00 05/04/20 20:57 Barium Sulfate (Varibar [place]) 240 ml NOW PRN RAD 05/01/20 21:00 05/04/20 20:57 Barium Sulfate (Varibar Pudding) 230 ml NOW PRN RAD 05/01/20 21:00 05/04/20 20:57 Barium Sulfate (Varibar Thin Liquid powder) 148 gm NOW PRN RAD 05/01/20 21:00 05/04/20 20:57 Bisacodyl (Dulcolax) 10 mg DAILYPRN PRN RECTAL Constipation 05/01/20 20:30 07/30/20 20:29 Dextrose (Dextrose 50%) 25 ml Q30M PRN IV Hypoglycemia 05/01/20 20:30 07/30/20 20:29 Dextrose (Dextrose 50%) 50 ml Q30M PRN IV Hypoglycemia 05/01/20 20:30 07/30/20 20:29 Dextrose/Sodium Chloride 1,000 ml @ 75 mls/hr [id number] IV 05/01/20 21:30 05/31/20 21:29 05/01/20 00:30 Heparin Sodium (Porcine) (Heparin 5000 units/ml) 5,000 units EVERY 8 HOURS SUBQ 05/01/20 22:00 06/15/20 21:59 05/02/20 06:49 Insulin Aspart (NovoLOG) BEFORE MEALS AND HS SUBQ 05/01/20 21:00 07/30/20 20:59 05/02/20 08:01 Lorazepam (Ativan 2mg/ml 1ml) 0.5 mg Q4H PRN IV For Anxiety 05/01/20 20:30 05/08/20 20:29 Metronidazole 100 ml @ 100 mls/hr Q8H IVPB 05/02/20 00:00 05/09/20 00:00 05/02/20 08:03 Ondansetron HCl (Zofran) 4 mg Q6H PRN IVP Nausea & Vomiting 05/01/20 20:30 05/31/20 20:29 Assessment/Plan Diagnosis [place]: #JYOTI - concerns for vancomycin nephrotoxicity- r/o ATN- baseline Cr 0.8- also with volume depletion # osteomyelitis of LLE- on vanco, cefepime and flagyl #AMS #diabetes # hypertension, #hyperlipidemia # dementia. - agree with hydration with D5NS at 75cc/hr - renal US with no acute findings - check UTP/cr - check urine easo - avoid vanco for now - monitor renal output time spent 65min Niko Waterman M.D. May 02, 2020 10:14
[2020-05-02 10:23] LABS: BASOPHILS % (AUTO) 0.9 % (0.0-2.0); EOSINOPHILS % (AUTO) 0.2 % (0.0-3.0); HEMATOCRIT 34.2 % (37.0-47.0); HEMOGLOBIN 11.7 G/DL (12.0-16.0); LYMPHOCYTES % (AUTO) 10.4 % (20.0-45.0); MEAN CORPUSCULAR VOLUME 91 FL (80-99); MONOCYTES % (AUTO) 5.6 % (1.0-10.0); NEUTROPHILS % (AUTO) 82.9 % (45.0-75.0); PLATELET COUNT 205 K/UL (150-450); RED BLOOD COUNT 3.77 M/UL (4.20-5.40); RED CELL DISTRIBUTION WIDTH 17.7 % (11.6-14.8); WHITE BLOOD COUNT 9.9 K/UL (4.8-10.8)
[2020-05-02 10:30] LABS: PHOSPHORUS 4.5 MG/DL (2.5-4.9)
[2020-05-02 10:32] LABS: ALBUMIN 1.4 G/DL (3.4-5.0); ALBUMIN/GLOBULIN RATIO 0.3 (1.0-2.7); BILIRUBIN,TOTAL 0.4 MG/DL (0.2-1.0); CREATININE 4.4 MG/DL (0.55-1.30)
[2020-05-02 12:00] VITALS: BP 119/78
--- NOTE | 2020-05-02 12:15 | Consultation ---
History of Present Illness General Date patient seen: May 02, 2020 Reason for Hospitalization: General Complaint Present Illness HPI This is a 69-year-old female well known to me from prior admission and care plan who presents for evaluation of abnormal labs. She presents from nursing facility for evaluation of acute kidney injury with reported elevated BUN and creatinine. Also she has not urinated for 3 days and is refusing medication and refusing to eat. Patient's baseline mentation status is alert and oriented x1. She is combative at times. She does not provide any history. Does not appear to be in distress. Her eyes are stable vital signs. On admission identified to have abnormal labs worsening sacral cubitus injury heel injury left lower extremity ischemic injury. Surgery called to evaluate assist with care. Patient seen, patient evaluate, chart reviewed Allergies: Coded Allergies: PENICILLINS (Verified Allergy, Unknown, 12/05/17) COVID-19 Screening Contact w/high risk pt: No Experienced COVID-19 symptoms?: No Medication History Scheduled Amlodipine Besylate* (Amlodipine Besylate*), 5 MG ORAL DAILY, (Reported) Arginine/Ascorbate Sod/Kumar AC (Arginaid Powder), 1 EACH PO TWICE A DAY, (Reported) Ascorbic Acid* (Ascorbic Acid*), 500 MG ORAL TWICE A DAY, (Reported) Aspirin* (Aspirin*), 81 MG ORAL DAILY, (Reported) Atorvastatin Calcium* (Lipitor*), 80 MG ORAL BEDTIME, (Reported) Benazepril Hcl* (Benazepril Hcl*), 40 MG ORAL DAILY, (Reported) Cefepime Hcl/Dextrose, Iso-Osm (Cefepime 2 Gm Injection), 2 GM IV EVERY 12 HOURS Enoxaparin* (Lovenox*), 40 MG SUBQ Q24H Insulin Glargine (Lantus), 20 UNITS SUBQ QHS, (Reported) Insulin Lispro (Humalog), 4 UNITS SUBQ THREE TIMES A DAY, (Reported) Metformin Hcl* (Metformin Hcl*), 500 MG ORAL TWICE A DAY, (Reported) Metronidazole* (Flagyl*), 500 MG ORAL Q8HR Metronidazole* (Flagyl*), 500 MG ORAL EVERY 8 HOURS, (Reported) Multivitamins* (Multivitamins*), 1 TAB ORAL DAILY, (Reported) Nut.tx.gluc.intoler,Lac-Fr,Soy (Glucerna), Unknown Dose PO TWICE A DAY, (Reported) Vancomycin In Dextrose,Iso-Osm (Vancomycin 750 Mg/150 Ml Bag), 750 MG IV EVERY 12 HOURS Zinc Sulfate (Zinc Sulfate*), 220 MG ORAL DAILY, (Reported) Patient History Limited by: medical condition History Provided By: Medical Record, PMD Healthcare decision maker Resuscitation status Advanced Directive on File Past Medical/Surgical History Past Medical/Surgical History: (1) UTI (urinary tract infection) (2) JYOTI (acute kidney injury) (3) Hyperkalemia (4) Leukocytosis (5) Sepsis (6) Altered mental status (7) Sacral decubitus ulcer (8) Decubitus ulcer of heel (9) Diabetes mellitus out of control (10) Acute on chronic renal failure (11) NSTEMI (non-ST elevated myocardial infarction) (12) High anion gap metabolic acidosis Review of Systems Review of Symptoms General ROS: no weight loss or fever Psychological ROS: no depression or mood changes, no memory loss Ophthalmic ROS: no visual changes or eye irritation ENT ROS: no nasal congestion, hearing loss, dizziness Allergy and Immunology ROS: no allergic symptoms or urticaria Hematological and Lymphatic ROS: no swollen glands, unusual bleeding or bruising Endocrine ROS: no polyuria, polydipsia, weight changes, temperature intolerance Respiratory ROS: no cough, shortness of breath, or wheezing Cardiovascular ROS: no chest pain or dyspnea on exertion Gastrointestinal ROS: denies abdominal pain, bright red blood in stool. Musculoskeletal ROS: no myalgias or arthralgias Neurological ROS: no TIA or stroke symptoms Dermatological ROS: no new or changing skin lesions, rashes or pruritis Physical Exam Physical Exam General appearance: alert, cooperative, no distress, appears stated age Head: Normocephalic, without obvious abnormality, atraumatic Eyes: conjunctivae/corneas clear. PERRL, EOM's intact. Fundi benign Throat: Lips, mucosa, and tongue normal. Teeth and gums normal Neck: supple, symmetrical, trachea midline, no adenopathy, thyroid: not enlarged, symmetric, no tenderness/mass/nodules, no carotid bruit and no JVD Lungs: clear to auscultation bilaterally Heart: regular rate and rhythm, S1, S2 normal, no murmur, click, rub or gallop Abdomen: soft, non-tender. Bowel sounds normal. No masses, no organomegaly Extremities: extremities ischemia Pulses: 2+ and symmetric Skin: Skin see below Neurologic: Grossly normal Last 24 Hour Vital Signs Date Time Temp Pulse Resp B/P (MAP) Pulse Ox O2 Delivery O2 Flow Rate FiO2 05/02/20 08:00 98.9 101 20 122/58 (79) 91 05/02/20 04:00 98.4 75 16 138/82 (100) 91 05/02/20 01:09 Room Air 05/02/20 00:00 97.8 81 18 140/72 (94) 81 05/01/20 23:45 97.7 78 18 125/69 100 Room Air 05/01/20 23:45 97.7 78 18 125/69 100 Room Air 05/01/20 22:18 98.0 84 18 116/65 100 Room Air 05/01/20 19:13 98.2 78 18 112/61 100 Room Air 05/01/20 14:35 96.4 20 127/68 98 Room Air 05/01/20 14:35 86 20 Room Air 05/01/20 14:23 96.4 86 20 127/68 (87) 98 Room Air Intake and Output 05/01/20 05/02/20 19:00 07:00 Output Total 200 ml Balance -200 ml Output Urine Total 200 ml # Voids 2 # Bowel Movements 1 Laboratory Tests Test 05/01/20 15:30 05/01/20 15:50 05/02/20 01:38 05/02/20 06:40 White Blood Count 7.3 K/UL (4.8-10.8) Red Blood Count 3.62 M/UL (4.20-5.40) L Hemoglobin 11.2 G/DL (12.0-16.0) L Hematocrit 32.1 % (37.0-47.0) L Mean Corpuscular Volume 89 FL (80-99) Mean Corpuscular Hemoglobin 30.9 PG (27.0-31.0) Mean Corpuscular Hemoglobin Concent 34.9 G/DL (32.0-36.0) Red Cell Distribution Width 17.1 % (11.6-14.8) H Platelet Count 188 K/UL (150-450) Mean Platelet Volume 9.1 FL (6.5-10.1) Neutrophils (%) (Auto) 70.2 % (45.0-75.0) Lymphocytes (%) (Auto) 17.0 % (20.0-45.0) L Monocytes (%) (Auto) 8.8 % (1.0-10.0) Eosinophils (%) (Auto) 2.4 % (0.0-3.0) Basophils (%) (Auto) 1.6 % (0.0-2.0) Sodium Level 144 MMOL/L (136-145) Potassium Level 3.4 MMOL/L (3.5-5.1) L Chloride Level 111 MMOL/L (98-107) H Carbon Dioxide Level 19 MMOL/L (21-32) L Anion Gap 14 mmol/L (5-15) Blood Urea Nitrogen 37 mg/dL (7-18) H Creatinine 4.1 MG/DL (0.55-1.30) H Estimat Glomerular Filtration Rate 13.1 mL/min (>60) Glucose Level 113 MG/DL (74-106) H Hemoglobin A1c 10.0 % (4.3-6.0) H Calcium Level 7.1 MG/DL (8.5-10.1) L Phosphorus Level 3.3 MG/DL (2.5-4.9) Magnesium Level 1.5 MG/DL (1.8-2.4) L Total Bilirubin 0.4 MG/DL (0.2-1.0) Aspartate Amino Transf (AST/SGOT) 47 U/L (15-37) H Alanine Aminotransferase (ALT/SGPT) 22 U/L (12-78) Alkaline Phosphatase 112 U/L (46-116) Troponin I 0.012 ng/mL (0.000-0.056) 0.008 ng/mL (0.000-0.056) Total Protein 5.0 G/DL (6.4-8.2) L Albumin 1.2 G/DL (3.4-5.0) L Globulin 3.8 g/dL Albumin/Globulin Ratio 0.3 (1.0-2.7) L Lipase 39 U/L (73-393) L Thyroid Stimulating Hormone (TSH) 1.607 uiU/mL (0.358-3.740) Random Vancomycin Level 33.5 ug/mL Urine Color Pale yellow Urine Appearance Cloudy Urine pH 6 (4.5-8.0) Urine Specific [place] 1.030 (1.005-1.035) Urine Protein 3+ (NEGATIVE) H Urine Glucose (UA) Negative (NEGATIVE) Urine Ketones 1+ (NEGATIVE) H Urine Blood 4+ (NEGATIVE) H Urine Nitrite Negative (NEGATIVE) Urine Bilirubin Negative (NEGATIVE) Urine Urobilinogen Normal MG/DL (0.0-1.0) Urine Leukocyte Esterase 3+ (NEGATIVE) H Urine RBC 15-20 /HPF (0 - 2) H Urine WBC 30-40 /HPF (0 - 2) H Urine Squamous Epithelial Cells Many /LPF (NONE/OCC) H Urine Bacteria Many /HPF (NONE) H Urine Yeast Many /HPF (NONE) H Urine HCG, Qualitative Negative (NEGATIVE) Lactic Acid Level 1.30 mmol/L (0.4-2.0) POC Whole Blood Glucose 260 MG/DL (74-106) H Test 05/02/20 07:08 05/02/20 11:55 White Blood Count 9.9 K/UL (4.8-10.8) Red Blood Count 3.77 M/UL (4.20-5.40) L Hemoglobin 11.7 G/DL (12.0-16.0) L Hematocrit 34.2 % (37.0-47.0) L Mean Corpuscular Volume 91 FL (80-99) Mean Corpuscular Hemoglobin 31.0 PG (27.0-31.0) Mean Corpuscular Hemoglobin Concent 34.2 G/DL (32.0-36.0) Red Cell Distribution Width 17.7 % (11.6-14.8) H Platelet Count 205 K/UL (150-450) Mean Platelet Volume 8.9 FL (6.5-10.1) Neutrophils (%) (Auto) 82.9 % (45.0-75.0) H Lymphocytes (%) (Auto) 10.4 % (20.0-45.0) L Monocytes (%) (Auto) 5.6 % (1.0-10.0) Eosinophils (%) (Auto) 0.2 % (0.0-3.0) Basophils (%) (Auto) 0.9 % (0.0-2.0) Sodium Level 144 MMOL/L (136-145) Potassium Level 4.0 MMOL/L (3.5-5.1) Chloride Level 110 MMOL/L (98-107) H Carbon Dioxide Level 11 MMOL/L (21-32) L Anion Gap 24 mmol/L (5-15) H Blood Urea Nitrogen 39 mg/dL (7-18) H Creatinine 4.4 MG/DL (0.55-1.30) H Estimat Glomerular Filtration Rate 12.0 mL/min (>60) Glucose Level 316 MG/DL (74-106) #H Calcium Level 7.0 MG/DL (8.5-10.1) L Phosphorus Level 4.5 MG/DL (2.5-4.9) Magnesium Level 1.5 MG/DL (1.8-2.4) L Total Bilirubin 0.4 MG/DL (0.2-1.0) Aspartate Amino Transf (AST/SGOT) 41 U/L (15-37) H Alanine Aminotransferase (ALT/SGPT) 24 U/L (12-78) Alkaline Phosphatase 127 U/L (46-116) H Troponin I 0.009 ng/mL (0.000-0.056) Total Protein 5.6 G/DL (6.4-8.2) L Albumin 1.4 G/DL (3.4-5.0) L Globulin 4.2 g/dL Albumin/Globulin Ratio 0.3 (1.0-2.7) L Random Vancomycin Level 31.5 ug/mL POC Whole Blood Glucose 291 MG/DL (74-106) H Microbiology Date/Time Source Procedure Growth Status 05/01/20 15:50 Urine,Clean Catch Urine Culture - Preliminary NO GROWTH Resulted 05/01/20 15:30 Rectum Received Height (Feet): 5 Height (Inches): 7.00 Weight (Pounds): 130 Medications Current Medications Medications (Trade) Dose Ordered Sig/Enrike Route PRN Reason Start Time Stop Time Status Last Admin Dose Admin Barium Sulfate (Varibar Honey) 250 ml NOW PRN MC RAD 05/01/20 21:00 05/04/20 20:57 Barium Sulfate (Varibar [place]) 240 ml NOW PRN MC RAD 05/01/20 21:00 05/04/20 20:57 Barium Sulfate (Varibar Pudding) 230 ml NOW PRN RAD 05/01/20 21:00 05/04/20 20:57 Barium Sulfate (Varibar Thin Liquid powder) 148 gm NOW PRN RAD 05/01/20 21:00 05/04/20 20:57 Bisacodyl (Dulcolax) 10 mg DAILYPRN PRN RECTAL Constipation 05/01/20 20:30 07/30/20 20:29 Dextrose (Dextrose 50%) 25 ml Q30M PRN IV Hypoglycemia 05/01/20 20:30 07/30/20 20:29 Dextrose (Dextrose 50%) 50 ml Q30M PRN IV Hypoglycemia 05/01/20 20:30 07/30/20 20:29 Dextrose/Sodium Chloride 1,000 ml @ 75 mls/hr [id number] IV 05/01/20 21:30 05/31/20 21:29 05/01/20 00:30 Heparin Sodium (Porcine) (Heparin 5000 units/ml) 5,000 units EVERY 8 HOURS SUBQ 05/01/20 22:00 06/15/20 21:59 05/02/20 06:49 Insulin Aspart (NovoLOG) BEFORE MEALS AND HS SUBQ 05/01/20 21:00 07/30/20 20:59 05/02/20 08:01 Lorazepam (Ativan 2mg/ml 1ml) 0.5 mg Q4H PRN IV For Anxiety 05/01/20 20:30 05/08/20 20:29 Metronidazole 100 ml @ 100 mls/hr Q8H IVPB 05/02/20 00:00 05/09/20 00:00 05/02/20 08:03 Ondansetron HCl (Zofran) 4 mg Q6H PRN IVP Nausea & Vomiting 05/01/20 20:30 05/31/20 20:29 Assessment/Plan Problem List: (1) UTI (urinary tract infection) ICD Codes: N39.0 - Urinary tract infection, site not specified SNOMED: 19003682 (2) JYOTI (acute kidney injury) ICD Codes: N17.9 - Acute kidney failure, unspecified SNOMED: 44894674, 3452231 (3) Hyperkalemia ICD Codes: E87.5 - Hyperkalemia SNOMED: 84593077 (4) Leukocytosis ICD Codes: D72.829 - Elevated white blood cell count, unspecified SNOMED: 564796364, 482999112 (5) Sepsis ICD Codes: A41.9 - Sepsis, unspecified organism SNOMED: 54155978 (6) Altered mental status ICD Codes: R41.82 - Altered mental status, unspecified SNOMED: 086665239 (7) Sacral decubitus ulcer Assessment & Plan: 69-year-old female multiple comorbidities presented with failure to thrive lethargic altered mental status noted to have abnormal labs and have draining bilateral heel unstageable decubitus ulcers multiple skin lesions on the lower extremities as well as a sacral decubitus ulcer as well. Imaging reviewed. Patient has been eating less recently but currently is eating at the bedside though does not look like she is taking much in. Treatment plan Turn every 2 hours Offload pressure with pillows pillow on side as necessary as well as underneath calf to elevate heels Air soft mattress nutritional optimization continue IV antibiotics per infectious disease SACRUM- STAGE - UNSTAGEABLE PRESSURE ULCER MEASURES 6.0X13.0X0.2. WOUND BED WITH 80% SLOUGH AND 20% PINK GRANULATION TISSUE. NOTED FOUL ODOR RECOMMEND-CLEAN WITH SALINE. APPLY WET TO DRY DRESSINGS WITH DAKINS 0.25% DAKIN'S SOLUTION.COVER WITH OPTIFOAM DRESSING. REPLACE DRESSING DAILY. LEFT ISCHIUM-STAGE II PRESSURE ULCER MEASURES 4.5X0.5X0.2CM. PINK GRANULATION TISSUE NOTED. RECOMMEND- CLEAN WITH SALINE, PAT DRY. APPLY CALAZINE AND COVER WITH OPTIFOAM DRESSING. LEFT ANTERIOR LOW LEG-VENOUS ULCER MEASURES 8.0X2.6X0.2CM 100% YELLOW SLOUGH NOTED TO WOUND BED. RECOMMEND- CLEAN WITH SALINE, PA DRY. APPLY THERAHONEY. COVER WITH GAUZE AND SECURE WITH KERLIX. REPLACE DRESSING DAILY. LEFT HEEL- UNSTAGEABLE PRESSURE ULCER MEASURES 9.5X8.0X0.3CM. 100% MOIST BLACK ESCHAR. WITH STRONG FOUL ODOR. RECOMMEND- CLEAN WITH SALINE. APPLY WET TO DRY DRESSINGS WITH DAKINS 0.25% DAKIN'S SOLUTION. COVER WITH GAUZE, ABD PAD AND SECURE WITH KERLIX. REPLACE DAILY. RIGHT ANTERIOR LOW LEG-VENOUS ULCER MEASURES 2.5X3.0X0.2CM WITH PINK GRANULATION TISSUE. RIGHT ANTERIOR DISTAL LOW LEG -VENOUS ULCER MEASURES 1.5X0.2X0.1CM WITH PINK GRANULATION TISSUE. RECOMMEND-CLEAN WITH SALINE PAT DRY. APPLY XEROFORM GAUZE, GAUZE AND COVER WITH KERLIX. REPLACE DAILY RIGHT HEEL-DTI MEASURES 2.5X3.0CM. AREA DARK PURPLE IN COLOR AND BOGGY TO TOUCH. NO DRAINAGE NOTED. RECOMMEND- PAINT WITH CAVILON SKIN PROTECTOR, GAUZE AND WRAP WITH KERLIX. REPLACE DAILY. We will follow with recommendations thank you for letting participate patient's care Fairly numerous bubbles of soft tissue gas are seen within the subcutaneous fat and possibly the intrinsic musculature of the plantar surface of the heel. There is high STIR and decreased T1 signal within the calcaneus, and there is indistinctness of the inferior and posterior cortical margins of the calcaneus. There is some soft tissue ulceration of the plantar surface of the heel, as well as marked thinning of the subcutaneous fat overlying the calcaneal tuberosity. There is considerable edema of the plantar surface subcutaneous fat. There is also edema of the subcutaneous fat of the lateral and medial ankle. No focal discrete fluid collection to suggest drainable abscess demonstrated. Impression: Evidence of ulceration overlying the calcaneal tuberosity Soft tissue gas within the heel, as described. This may represent penetration the above, but is worrisome for infection with a gas-forming organism Abnormal signal within the posterior and mid calcaneus, highly suspicious for acute osteomyelitis ICD Codes: L89.159 - Pressure ulcer of sacral region, unspecified stage SNOMED: 329525955 (8) Decubitus ulcer of heel ICD Codes: L89.609 - Pressure ulcer of unspecified heel, unspecified stage SNOMED: 497502273 (9) Diabetes mellitus out of control ICD Codes: E11.65 - Type 2 diabetes mellitus with hyperglycemia SNOMED: 20520644, 561334998 (10) Acute on chronic renal failure ICD Codes: N17.9 - Acute kidney failure, unspecified; N18.9 - Chronic kidney disease, unspecified SNOMED: 129916123 (11) NSTEMI (non-ST elevated myocardial infarction) ICD Codes: I21.4 - Non-ST elevation (NSTEMI) myocardial infarction SNOMED: 836676873 (12) High anion gap metabolic acidosis ICD Codes: E87.2 - Acidosis SNOMED: 56734456 Joseph Alamo May 02, 2020 12:15
--- NOTE | 2020-05-02 15:30 | NUR ---
CASE MANAGEMENT: Faxed clinical info (face sheet / ER MD notes / lab and imaging reports / progress notes) to [facility] @ [phone] / [phone]
--- NOTE | 2020-05-02 15:59 | Infectious Diseases Prog Note ---
Assessment/Plan Assessment/Plan Full consult to follow: A) 1) left heel/foot osteomyelitis - s/p I/D (04/07/20), polymicrobial 2) JYOTI 3) pmh noted 4) allergies - pcn, tolerates cephalosporins P) 1) vancomycin, cefepime and flagyl - day # 2) wound management per surgery 3) monitor labs 4) will f/u 5) thank you Subjective Allergies: Coded Allergies: PENICILLINS (Verified Allergy, Unknown, 12/05/17) Objective Last 24 Hour Vital Signs Date Time Temp Pulse Resp B/P (MAP) Pulse Ox O2 Delivery O2 Flow Rate FiO2 05/02/20 12:00 98.9 82 18 119/78 (92) 93 05/02/20 08:00 98.9 101 20 122/58 (79) 91 05/02/20 04:00 98.4 75 16 138/82 (100) 91 05/02/20 01:09 Room Air 05/02/20 00:00 97.8 81 18 140/72 (94) 81 05/01/20 23:45 97.7 78 18 125/69 100 Room Air 05/01/20 23:45 97.7 78 18 125/69 100 Room Air 05/01/20 22:18 98.0 84 18 116/65 100 Room Air 05/01/20 19:13 98.2 78 18 112/61 100 Room Air Height (Feet): 5 Height (Inches): 7.00 Weight (Pounds): 130 Microbiology Date/Time Source Procedure Growth Status 05/01/20 15:50 Urine,Clean Catch Urine Culture - Preliminary NO GROWTH Resulted 05/01/20 15:30 Rectum Received Laboratory Tests Test 05/02/20 01:38 05/02/20 06:40 05/02/20 07:08 05/02/20 11:55 Lactic Acid Level 1.30 mmol/L (0.4-2.0) Troponin I 0.008 ng/mL (0.000-0.056) 0.009 ng/mL (0.000-0.056) POC Whole Blood Glucose 260 MG/DL (74-106) H 291 MG/DL (74-106) H White Blood Count 9.9 K/UL (4.8-10.8) Red Blood Count 3.77 M/UL (4.20-5.40) L Hemoglobin 11.7 G/DL (12.0-16.0) L Hematocrit 34.2 % (37.0-47.0) L Mean Corpuscular Volume 91 FL (80-99) Mean Corpuscular Hemoglobin 31.0 PG (27.0-31.0) Mean Corpuscular Hemoglobin Concent 34.2 G/DL (32.0-36.0) Red Cell Distribution Width 17.7 % (11.6-14.8) H Platelet Count 205 K/UL (150-450) Mean Platelet Volume 8.9 FL (6.5-10.1) Neutrophils (%) (Auto) 82.9 % (45.0-75.0) H Lymphocytes (%) (Auto) 10.4 % (20.0-45.0) L Monocytes (%) (Auto) 5.6 % (1.0-10.0) Eosinophils (%) (Auto) 0.2 % (0.0-3.0) Basophils (%) (Auto) 0.9 % (0.0-2.0) Sodium Level 144 MMOL/L (136-145) Potassium Level 4.0 MMOL/L (3.5-5.1) Chloride Level 110 MMOL/L (98-107) H Carbon Dioxide Level 11 MMOL/L (21-32) L Anion Gap 24 mmol/L (5-15) H Blood Urea Nitrogen 39 mg/dL (7-18) H Creatinine 4.4 MG/DL (0.55-1.30) H Estimat Glomerular Filtration Rate 12.0 mL/min (>60) Glucose Level 316 MG/DL (74-106) #H Calcium Level 7.0 MG/DL (8.5-10.1) L Phosphorus Level 4.5 MG/DL (2.5-4.9) Magnesium Level 1.5 MG/DL (1.8-2.4) L Total Bilirubin 0.4 MG/DL (0.2-1.0) Aspartate Amino Transf (AST/SGOT) 41 U/L (15-37) H Alanine Aminotransferase (ALT/SGPT) 24 U/L (12-78) Alkaline Phosphatase 127 U/L (46-116) H Total Protein 5.6 G/DL (6.4-8.2) L Albumin 1.4 G/DL (3.4-5.0) L Globulin 4.2 g/dL Albumin/Globulin Ratio 0.3 (1.0-2.7) L Random Vancomycin Level 31.5 ug/mL Test 05/02/20 12:55 05/02/20 15:00 Troponin I 0.019 ng/mL (0.000-0.056) Urine Eosinophils Pending Urine Random Total Protein Pending Urine Random Sodium Pending Urine Creatinine Pending Current Medications Medications (Trade) Dose Ordered Sig/Enrike Route PRN Reason Start Time Stop Time Status Last Admin Dose Admin Barium Sulfate (Varibar Honey) 250 ml NOW PRN RAD 05/01/20 21:00 05/04/20 20:57 Barium Sulfate (Varibar [place]) 240 ml NOW PRN MC RAD 05/01/20 21:00 05/04/20 20:57 Barium Sulfate (Varibar Pudding) 230 ml NOW PRN RAD 05/01/20 21:00 05/04/20 20:57 Barium Sulfate (Varibar Thin Liquid powder) 148 gm NOW PRN RAD 05/01/20 21:00 05/04/20 20:57 Bisacodyl (Dulcolax) 10 mg DAILYPRN PRN RECTAL Constipation 05/01/20 20:30 07/30/20 20:29 Chlorhexidine Gluconate (Holli-Hex 2%) 1 applic DAILY@2000 TOPIC 05/02/20 20:00 07/31/20 19:59 Dextrose (Dextrose 50%) 25 ml Q30M PRN IV Hypoglycemia 05/01/20 20:30 07/30/20 20:29 Dextrose (Dextrose 50%) 50 ml Q30M PRN IV Hypoglycemia 05/01/20 20:30 07/30/20 20:29 Dextrose/Sodium Chloride 1,000 ml @ 75 mls/hr [id number] IV 05/01/20 21:30 05/31/20 21:29 05/01/20 00:30 Heparin Sodium (Porcine) (Heparin 5000 units/ml) 5,000 units EVERY 8 HOURS SUBQ 05/01/20 22:00 06/15/20 21:59 05/02/20 14:57 Insulin Aspart (NovoLOG) BEFORE MEALS AND HS SUBQ 05/01/20 21:00 07/30/20 20:59 05/02/20 12:39 Lorazepam (Ativan 2mg/ml 1ml) 0.5 mg Q4H PRN IV For Anxiety 05/01/20 20:30 05/08/20 20:29 Metronidazole 100 ml @ 100 mls/hr Q8H IVPB 05/02/20 00:00 05/09/20 00:00 05/02/20 08:03 Ondansetron HCl (Zofran) 4 mg Q6H PRN IVP Nausea & Vomiting 05/01/20 20:30 05/31/20 20:29 Sodium Bicarbonate (NaHCO3) 650 mg THREE TIMES A DAY ORAL 05/02/20 18:00 06/01/20 17:59 Elyse Leung MD May 02, 2020 15:59
[2020-05-02 16:00] VITALS: BP 110/76
[2020-05-02] MEDS: Sodium Bicarbonate 650mg Tab ORAL SCH (17:41)
[2020-05-02] MEDS ORDERED: NovoLOG Insulin Flexpen SUBQ SCH (18:00)
[2020-05-02] MEDS: Cefepime HCl 2 GM in D5W 55 ML IVPB SCH (18:56)
--- NOTE | 2020-05-02 19:39 | NUR ---
NURSE HAND-OFF: Important Events on Shift: Inserted F/C; pt seen by MD consults. Patient Status: Stable Diet: NPO (no alternate nutrition) Pending Orders: ST leonardoal in AM Pending Results/Labs: None Pending MD notification: Notified primary MD of low urine output; await call back Latest Vital Signs: Temperature 98.3 , Pulse 77 , B/P 110 /76 , Respiratory Rate 18 , O2 SAT 98 , Room Air, O2 Flow Rate . Vital Sign Comment: Stable Latest Hernandez Fall Score: 50 Fall Risk: High Risk Safety Measures: Call light Within Reach, Bed Alarm Zone 2, Side Rails Side Rails x3, Bed position Low and Locked. Fall Precautions: Yellow Socks Yellow Gown Report given to ZACH Bello.
--- NOTE | 2020-05-02 19:40 | NUR ---
NURSE NOTES: Pt A/OX1, lethargic, drowsy, No outward s/s of distress noted, resistive to care. Breathing pattern is even and unlabored on RA. VS within normal limits. PICC line in place JEFFERY. No s/sx of infection noted. Bed at lowest level, locked, bed alarm on. Pt will continue to be monitored.
--- NOTE | 2020-05-02 19:54 | General Progress Note ---
Subjective Allergies: Coded Allergies: PENICILLINS (Verified Allergy, Unknown, 12/05/17) Subjective No acute events overnight per nursing. Patient still encephalopathic. Altered. Vargas catheter inserted and 200 cc removed. Vanco level at 31. Still making urine. Unable to obtain ROS due to ALOC Objective Last 24 Hour Vital Signs Date Time Temp Pulse Resp B/P (MAP) Pulse Ox O2 Delivery O2 Flow Rate FiO2 05/02/20 16:00 98.3 77 18 110/76 (87) 98 05/02/20 12:00 98.9 82 18 119/78 (92) 93 05/02/20 09:00 Room Air 05/02/20 08:00 98.9 101 20 122/58 (79) 91 05/02/20 04:00 98.4 75 16 138/82 (100) 91 05/02/20 01:09 Room Air 05/02/20 00:00 97.8 81 18 140/72 (94) 81 05/01/20 23:45 97.7 78 18 125/69 100 Room Air 05/01/20 23:45 97.7 78 18 125/69 100 Room Air 05/01/20 22:18 98.0 84 18 116/65 100 Room Air Intake and Output 05/01/20 05/02/20 19:00 07:00 Output Total 200 ml Balance -200 ml Output Urine Total 200 ml # Voids 2 # Bowel Movements 1 Laboratory Tests 05/02/20 01:38: Lactic Acid Level 1.30, Troponin I 0.008 05/02/20 06:40: POC Whole Blood Glucose 260H 05/02/20 07:08: Troponin I 0.009, White Blood Count 9.9, Red Blood Count 3.77L, Hemoglobin 11.7L , Hematocrit 34.2L, Mean Corpuscular Volume 91, Mean Corpuscular Hemoglobin 31.0, Mean Corpuscular Hemoglobin Concent 34.2, Red Cell Distribution Width 17.7H, Platelet Count 205, Mean Platelet Volume 8.9, Neutrophils (%) (Auto) 82.9H, Lymphocytes (%) (Auto) 10.4L, Monocytes (%) (Auto) 5.6, Eosinophils (%) (Auto) 0.2, Basophils (%) (Auto) 0.9, Sodium Level 144, Potassium Level 4.0, Chloride Level 110H, Carbon Dioxide Level 11L, Anion Gap 24H, Blood Urea Nitrogen 39H, Creatinine 4.4H, Estimat Glomerular Filtration Rate 12.0, Glucose Level 316#H, Calcium Level 7.0L, Phosphorus Level 4.5, Magnesium Level 1.5L, Total Bilirubin 0.4, Aspartate Amino Transf (AST/SGOT) 41H, Alanine Ami notransferase (ALT/SGPT) 24, Alkaline Phosphatase 127H, Total Protein 5.6L, Albumin 1.4L, Globulin 4.2, Albumin/Globulin Ratio 0.3L, Random Vancomycin Level 31.5 05/02/20 11:55: POC Whole Blood Glucose 291H 05/02/20 12:55: Troponin I 0.019 05/02/20 15:00: Urine Eosinophils Few, Urine Random Total Protein 172H, Urine Random Sodium 83, Urine Creatinine 67.0 05/02/20 17:24: POC Whole Blood Glucose 294H Height (Feet): 5 Height (Inches): 7.00 Weight (Pounds): 130 Objective General: WDWN female in NAD, A&O x 0, sleeping but arousable. HEENT: Normocephalic cephalic atraumatic, pupils equal round reactive to light and accommodation, nares patent and no symmetrical, no tonsillar exudates, mucous membranes moist CV: Regular rate regular rhythm, no murmurs, rubs, or gallops Pulm: Lungs clear to auscultation bilaterally. No wheezes, rhonchi, or rales GI: Soft, nontender, nondistended, bowel sounds present Neuro: CN 2-12 intact bilaterally, no focal signs. Ext: No lower extremity edema bilaterally Skin: no rashes lesions or ulcers Msk: Joints symmetrical in upper extremity and lower extremity bilaterally, no joint swelling. Lymph: No lymphadenopathy in upper extremity and lower extremity Assessment/Plan Assessment/Plan: This is a 69-year-old female presenting with acute encephalopathy, JYOTI, acute UTI. #Acute kidney injury, suspect possible Vanc toxicity vs. component of pre renal as well. FeNA elevated suggesting intrinsic process #Hypokalemia #Hypomagnesemia > FeNA 3.8% suspect intrinsic -Admit to telemetry -Urine sodium, urine creatinine, urine eosinophils: reviewed -Renal ultrasound: no hydro, medical renal disease -Insert Vargas catheter for strict I's and O's -Check vanc level: in 30s - IV fluids -Avoid nephrotoxins -Trend creatinine -Appreciate nephro consult: Dr. Waterman -mario carey PRN #Acute metabolic encephalopathy #Underlying dementia #Acute UTI #LLE osteomyelitis s/p debridement on 04/07/2020 with bone biopsy and cultures obtained. #Stage II sacral decubitus ulcer > CTH no acute abnormality >EKG reviewed -Blood cultures -Urine culture -Appreciate ID consult: Bola -Lora gen surgery consult: Jasmeet -Neurology consult: D/w Dr. Lee -Holding Vanc due to elevated Vanco level -Continue Cefepime (renally dosed). (04/07 - ) -Continue Flagyl (04/07 - ) -Continue Abx for 42 days -swallow eval: pending -check TSH: normal -check lactate: normal -trend troponin: normal #DM2 -Hold lantus -hold metformin -SSI -accuchecks -hypoglycemia protocol #essential hypertension #hyperlipidemia -hold home amlodipine for now -hold benazepril -holding asa -holding statin FENPPX DVTPPX: HSQ Fluids: as above Diet: NPO pending swallow eval Lines: PIV, LUE PICC PT/OT: pending Code status: Full per SNF Dispo: back to SNF Reason for Continued Hospitalization: jyoti MIPS ([employer]-based Incentive Payment System) Applicable CPT: 16804, 86871 CHECK ALL THAT ARE MET: [] Measure #5 (CHF): All ages. Prescribe DESTINEY/ARB upon discharge for patients with left ventricular systolic dysfunction. If not, the reason is clearly documented in the medical chart [] Measure #8 (CHF): All ages. Prescribe a beta jennifer upon discharge for patients with left ventricular systolic dysfunction. If not, the reason is clearly documented in the medical chart. [] Measure #47: Advance care plan or surrogate decision maker documented in the medical record. [x] Measure #130 The provider has documented, updated, or reviewed the patients current medication list and has documented it in the patients note. [x] Measure #374 (All): Send report to referring provider. [] Measure #407(Sepsis due to MSSA bacteremia): Age 18+ Patient treated with a beta-lactam antibiotic (Nafcillin, Oxacillin or Cefazolin) as definitive therapy. MEDICAL COMPLEXITYHigh complexity medical decision making (need 2/3 c ategories)Problem - need 4 points [x]Acute/new problem with new plan for workup (4 points, 1 max) [] Acute/new problem without additional workup (3 points, 1 max) [x] Unstable chronic problem actively being managed (2 point each, 2 max) [x] Stable chronic problem actively being managed (1 point each, 2 max) [x] Self-limited/transient process (constipation, muscle ache, etc) (1 point each, 2 max) Data - need 4 points [x] Reviewed labs/imaging studies (1 points, 2 max) [x] Independent review of imaging (EKG, xrays, etc) (2 points, 2 max) [x] Discussed case with consult/other MD/RN (2 points, 2 max) High Risk - qualify if have one of the following: [x] Severe exacerbation of acute problem, acute mental status change, IV narcotics, monitoring drug levels (vancomycin, INR, tacrolimus etc) I spent 38 minutes on this patient's case, and 20 mins was dedicated to counseling and/or care coordination. Discussed with nephro, ID, gen surgery, neurology. Time of note may not reflect time of encounter Patrick Cerda D.O. May 02, 2020 19:53
[2020-05-02 20:00] VITALS: BP 117/73
[2020-05-02] MEDS: Doxycycline Hyclate 100 MG in D5W 110 ML IV SCH (22:08)
[2020-05-02] MEDS: Dyna-Hex 2% Top Sol 2oz TOPIC SCH (22:08)
[2020-05-03] VITALS (9 sets, daily range): BP systolic 91–134; BP diastolic 53–68
[2020-05-03] MEDS: NovoLOG Insulin Flexpen SUBQ SCH ×5 (00:14→23:47)
--- NOTE | 2020-05-03 06:29 | NUR ---
NURSE NOTES: Vargas catheter does not appear to be in place,while cleaning the patient, she urinated, she hadnt urinated iovernight until now despite being repositioned throughout the night.will attempt to reinsert
--- NOTE | 2020-05-03 06:30 | NUR ---
NURSE NOTES: Paged Dr Veras's group as I am concerned the left upper arm where the PICC line is - 29 cm and at the same location on the right arm the arm circumference is 23 cm. The left arm looks swollen. Awaiting a response back from Rito's group
[2020-05-03] MEDS: Heparin 5000 units/ml inj SUBQ SCH ×2 (06:38→14:00)
--- NOTE | 2020-05-03 06:45 | NUR ---
NURSE NOTES: Received call back from Dr Rondon, ordered a stat ultrasound of left upper extremity near PICC line.
--- NOTE | 2020-05-03 07:45 | NUR ---
NURSE NOTES: Pt in bed, A/OX1, in RA, no outward s/s of distress noted, Breathing even and unlabored. Endorsed by night nurse Alaniz was not in place. Removed old one and inserted new Alaniz, noted with thick, yellow output. Irrigated alaniz cath with 20 cc NS. Pt will have Venous duplex on DEANNE due to swollen at PICC site. Will follow up. Bed at lowest level, locked, bed alarm on. Pt will continue to be monitored.
--- NOTE | 2020-05-03 08:15 | NUR ---
NURSE HAND-OFF: Important Events on Shift: output low, alnaiz cath to be reinserted for I/O all dressings changed, but need dakins solution and xeroform, dressigns clean and dry, received order for VD re swollen arm near PICC for stat venous duplex. Patient Status: Stable Diet: NPO (no alternate nutrition) wait till results of ST eval and inform MD Pending Orders: ST eval in AM Pending Results/Labs: CBC BMP Mg Ph Pending MD notification: Notified primary MD of possible incorrect location of alaniz catheter, output none, however changing pt and she voided Latest Vital Signs: Temperature 98.3 , Pulse 77 , B/P 110 /76 , Respiratory Rate 18 , O2 SAT 98 , Room Air, O2 Flow Rate . Vital Sign Comment: Stable Latest Hernandez Fall Score: 50 Fall Risk: High Risk Safety Measures: Call light Within Reach, Bed Alarm Zone 2, Side Rails Side Rails x3, Bed position Low and Locked. Fall Precautions: Yellow Socks Yellow Gown Report given to Henok SERRANO
--- NOTE | 2020-05-03 08:20 | NUR ---
NURSE NOTES: Endorsed Re low magnesium level to follow up, was 1.5, pending results this morning
[2020-05-03] MEDS: Sodium Bicarbonate 650mg Tab ORAL SCH ×3 (09:00→17:50)
[2020-05-03 09:26] LABS: BASOPHILS % (AUTO) 0.8 % (0.0-2.0); EOSINOPHILS % (AUTO) 0.8 % (0.0-3.0); HEMATOCRIT 31.3 % (37.0-47.0); HEMOGLOBIN 10.9 G/DL (12.0-16.0); LYMPHOCYTES % (AUTO) 19.1 % (20.0-45.0); MEAN CORPUSCULAR VOLUME 89 FL (80-99); MONOCYTES % (AUTO) 7.4 % (1.0-10.0); NEUTROPHILS % (AUTO) 71.8 % (45.0-75.0); PLATELET COUNT 183 K/UL (150-450); RED BLOOD COUNT 3.52 M/UL (4.20-5.40); WHITE BLOOD COUNT 12.6 K/UL (4.8-10.8)
[2020-05-03 09:50] LABS: CREATININE 5.5 MG/DL (0.55-1.30); POTASSIUM 3.1 MMOL/L (3.5-5.1)
--- NOTE | 2020-05-03 10:15 | NUR ---
NURSE NOTES: Venous duplex on DEANNE done. Result showed acute DVT seen on subclavian, axillary and brachial veins. Notified Dr. Black. Order to get peripheral IV and do not use PICC. Addendum: 05/03/20 at 1138 by Ranulfo Whiting RN Use peripheral IV on right arm
--- NOTE | 2020-05-03 10:16 | Nephrology Progress Note ---
Assessment/Plan Plan #JYOTI - concerns for vancomycin nephrotoxicity- r/o ATN- baseline Cr 0.8- also with volume depletion # osteomyelitis of LLE- on vanco, cefepime and flagyl #AMS #diabetes # hypertension, #hyperlipidemia # dementia. - BUN /cr rising discussed with daughter farzana with HD plan for [facility] placement - renal US with no acute findings - check UTP/cr - check urine easo - avoid vanco for now - monitor renal output time spent 65min Subjective ROS Limited/Unobtainable: Yes Subjective BUN /cr rising discussed with daughter farzana with HD plan for [facility] placement Objective Objective Last 24 Hour Vital Signs Date Time Temp Pulse Resp B/P (MAP) Pulse Ox O2 Delivery O2 Flow Rate FiO2 05/03/20 06:57 Room Air 05/03/20 04:00 97.1 96 18 116/68 (84) 98 05/03/20 00:00 97.2 100 20 91/55 (67) 100 05/02/20 20:00 97.1 95 18 117/73 (88) 94 05/02/20 16:00 98.3 77 18 110/76 (87) 98 05/02/20 12:00 98.9 82 18 119/78 (92) 93 Intake and Output 05/02/20 05/03/20 19:00 07:00 Output Total 50 ml Balance -50 ml Output Urine Total 50 ml # Bowel Movements 1 Laboratory Tests 05/02/20 11:55: POC Whole Blood Glucose 291H 05/02/20 12:55: Troponin I 0.019 05/02/20 15:00: Urine Eosinophils Few, Urine Random Total Protein 172H, Urine Random Sodium 83, Urine Creatinine 67.0 05/02/20 17:24: POC Whole Blood Glucose 294H 05/03/20 00:10: POC Whole Blood Glucose 393H 05/03/20 05:30: White Blood Count 12.6H, Red Blood Count 3.52L, Hemoglobin 10.9L, Hematocrit 31.3L, Mean Corpuscular Volume 89, Mean Corpuscular Hemoglobin 31.0, Mean Co rpuscular Hemoglobin Concent 34.8, Red Cell Distribution Width 18.0H, Platelet Count 183, Mean Platelet Volume 9.4, Neutrophils (%) (Auto) 71.8, Lymphocytes (%) (Auto) 19.1L, Monocytes (%) (Auto) 7.4, Eosinophils (%) (Auto) 0.8, Basophils (%) (Auto) 0.8 05/03/20 06:07: POC Whole Blood Glucose 302H 05/03/20 08:45: Sodium Level 145, Potassium Level 3.1L, Chloride Level 112H, Carbon Dioxide Leve l 16L, Anion Gap 17H, Blood Urea Nitrogen 44H, Creatinine 5.5H, Estimat Glomerular Filtration Rate 9.3, Glucose Level 283H, Calcium Level 7.0L, Phosphorus Level 4.0, Magnesium Level 1.5L, Random Vancomycin Level 30.7 Height (Feet): 5 Height (Inches): 7.00 Weight (Pounds): 130 General Appearance: no apparent distress EENT: PERRL/EOMI, normal ENT inspection Neck: non-tender, normal alignment Cardiovascular: normal peripheral pulses, normal rate, regular rhythm Respiratory/Chest: chest wall non-tender, lungs clear, normal breath sounds Abdomen: normal bowel sounds, non tender Niko Waterman M.D. May 03, 2020 10:16
--- NOTE | 2020-05-03 11:59 | Diagnostic Imaging Report ---
Indication: Left upper extremity pain, edema, history of PICC Technique: Grayscale and duplex images of the left upper extremity veins Comparison: none Findings: Grayscale and duplex images demonstrate thrombus within the left axillary, subclavian, and brachial veins. There is a PICC in place. Radial and ulnar veins are patent. The basilic vein is not well-demonstrated, visualized portions unremarkable. The cephalic vein cannot be visualized. Impression: Evidence of left upper extremity axillary, subclavian, and brachial venous thrombosis
[2020-05-03] MEDS: Sodium Bicarbonate 50 ML in 1/2 NS 1000ml 1,000 ML IV SCH (12:00)
[2020-05-03] MEDS: Doxycycline Hyclate 100 MG in D5W 110 ML IV SCH ×2 (12:23→22:20)
--- NOTE | 2020-05-03 13:03 | Diagnostic Imaging Report ---
Indications: Altered level of consciousness Technique: Spiral acquisitions obtained through the brain. Angled axial and coronal 5 x 5 mm slices were reconstructed. Total dose length product 992 mGycm. CTDI vol(s) 53 mGy. Dose reduction achieved using automated exposure control Comparison: 05/01/2020 Findings: There is age-related enlargement of the ventricles and extra axial CSF spaces. There is periventricular deep white matter low-attenuation, consistent with chronic microvascular ischemic change. Visualized orbits and sinuses are unremarkable. The mastoids are clear. No acute intracranial hemorrhage or edema, mass effect, nor midline shift. No significant change Impression: Age-related volume loss. Negative for acute intracranial bleed or mass effect. The CT scanner at [facility] is accredited by the [employer] and the scans are performed using protocols designed to limit radiation exposure to as low as reasonably achievable to attain images of sufficient resolution adequate for diagnostic evaluation.
[2020-05-03] MEDS ORDERED: Heparin1,000 units/500ml Premix(Conc:2 units/ml) IV PRN (13:13)
[2020-05-03] MEDS ORDERED: Lidocaine 1% Plain 30 ml INJ PRN (13:13)
--- NOTE | 2020-05-03 15:00 | NUR ---
NURSE NOTES: Removed PICC on DEANNE per MD order. tip of catheter intact. No bleeding noted. covered with 4x4 and tape.
--- NOTE | 2020-05-03 15:50 | NUR ---
NURSE NOTES: Noted no urine output since inserted new Vargas in the morning. Bladder scan showed 26cc.
[2020-05-03] MEDS ORDERED: Tubing IV Secondary IV ONE (16:06)
[2020-05-03] MEDS ORDERED: D5NS 1000ml IV ONE (16:06)
--- NOTE | 2020-05-03 16:55 | NUR ---
CASE MANAGEMENT:INITIAL REVIEW 05/02/20 69 YR OLD FEMALE BIBA FROM [facility] CC;GENERAL COMPLAINT SI;JYOTI. UTI. 98.4 86 20 127/68 95% ON RA CL 110 ANION GAP 24 BUN 39 CR 4.4 BG 315 CA 7. MAG 1.5 AST 41 ALP 127 ALB 1.4 APTT 34 UA+ PROTEIN, KETONES, BLOOD, LEUKOCYTE ESTERASE, RBC, WBC, SQUAMOUS EPITH CELLS, BACTERIA, YEAST URINE CX (+) YEAST SPECIES HEAD CT ~ No acute findings in the head/brain. RENAL US ~ 1. Increased echogenicity of both kidneys compatible with medical renal disease. 2. No hydronephrosis. 3. Mildly distended bladder. IS;IVF NS BOLUS HALDOL IV ROCEPHIN IV ADMITTED TO MED SURG MED SURG STATUS DCP;FROM [facility]
--- NOTE | 2020-05-03 17:13 | NUR ---
Speech Pathology Note Chart reviewed. Admitted on 05/01/2020 for JYOTI and UTI. Creatine 5.5 from 4.1. pt is currently in radiology department. Most likely complete Swallow evaluation on 05/04/2020. Celso Stewart
--- NOTE | 2020-05-03 17:42 | Surgery Progress Note ---
Surgery Progress Note Subjective Additional Comments +dvt picc plan out soon HD line temp ordered no n/v plan HD prn Objective Last 24 Hour Vital Signs Date Time Temp Pulse Resp B/P (MAP) Pulse Ox O2 Delivery O2 Flow Rate FiO2 05/03/20 17:30 86 22 114/53 (73) 100 05/03/20 17:25 89 22 124/54 (77) 100 05/03/20 17:18 87 20 05/03/20 16:00 98.0 83 18 120/54 (76) 98 05/03/20 12:00 98.4 94 18 125/68 (87) 98 05/03/20 09:00 97.8 100 18 122/64 (83) 98 05/03/20 06:57 Room Air 05/03/20 04:00 97.1 96 18 116/68 (84) 98 05/03/20 00:00 97.2 100 20 91/55 (67) 100 05/02/20 20:00 97.1 95 18 117/73 (88) 94 I&O Intake and Output 05/02/20 05/03/20 19:00 07:00 Output Total 50 ml Balance -50 ml Output Urine Total 50 ml # Bowel Movements 1 Dressing: saturated Cardiovascular: RSR Respiratory: decreased breath sounds Abdomen: non-tender, present bowel sounds, non-distended Extremities: edema, no tenderness, no cyanosis Laboratory Tests Test 05/03/20 00:10 05/03/20 05:30 05/03/20 06:07 05/03/20 08:45 POC Whole Blood Glucose 393 MG/DL (74-106) H 302 MG/DL (74-106) H White Blood Count 12.6 K/UL (4.8-10.8) H Red Blood Count 3.52 M/UL (4.20-5.40) L Hemoglobin 10.9 G/DL (12.0-16.0) L Hematocrit 31.3 % (37.0-47.0) L Mean Corpuscular Volume 89 FL (80-99) Mean Corpuscular Hemoglobin 31.0 PG (27.0-31.0) Mean Corpuscular Hemoglobin Concent 34.8 G/DL (32.0-36.0) Red Cell Distribution Width 18.0 % (11.6-14.8) H Platelet Count 183 K/UL (150-450) Mean Platelet Volume 9.4 FL (6.5-10.1) Neutrophils (%) (Auto) 71.8 % (45.0-75.0) Lymphocytes (%) (Auto) 19.1 % (20.0-45.0) L Monocytes (%) (Auto) 7.4 % (1.0-10.0) Eosinophils (%) (Auto) 0.8 % (0.0-3.0) Basophils (%) (Auto) 0.8 % (0.0-2.0) Sodium Level 145 MMOL/L (136-145) Potassium Level 3.1 MMOL/L (3.5-5.1) L Chloride Level 112 MMOL/L (98-107) H Carbon Dioxide Level 16 MMOL/L (21-32) L Anion Gap 17 mmol/L (5-15) H Blood Urea Nitrogen 44 mg/dL (7-18) H Creatinine 5.5 MG/DL (0.55-1.30) H Estimat Glomerular Filtration Rate 9.3 mL/min (>60) Glucose Level 283 MG/DL (74-106) H Calcium Level 7.0 MG/DL (8.5-10.1) L Phosphorus Level 4.0 MG/DL (2.5-4.9) Magnesium Level 1.5 MG/DL (1.8-2.4) L Random Vancomycin Level 30.7 ug/mL Test 05/03/20 12:35 05/03/20 14:05 POC Whole Blood Glucose 277 MG/DL (74-106) H Activated Partial Thromboplast Time 34 SEC (23-33) H Plan Problems: (1) UTI (urinary tract infection) (2) JYOTI (acute kidney injury) (3) Hyperkalemia (4) Leukocytosis Assessment & Plan: dvt upper extremity picc related remove picc once temp line in anticoag as per heme (5) Sepsis (6) Altered mental status (7) Sacral decubitus ulcer Assessment & Plan: 69-year-old female multiple comorbidities presented with failure to thrive lethargic altered mental status noted to have abnormal labs and have draining bilateral heel unstageable decubitus ulcers multiple skin lesions on the lower extremities as well as a sacral decubitus ulcer as well. Imaging reviewed. Patient has been eating less recently but currently is eating at the bedside though does not look like she is taking much in. Treatment plan Turn every 2 hours Offload pressure with pillows pillow on side as necessary as well as underneath calf to elevate heels Air soft mattress nutritional optimization continue IV antibiotics per infectious disease SACRUM- STAGE - UNSTAGEABLE PRESSURE ULCER MEASURES 6.0X13.0X0.2. WOUND BED WIT H 80% SLOUGH AND 20% PINK GRANULATION TISSUE. NOTED FOUL ODOR RECOMMEND-CLEAN WITH SALINE. APPLY WET TO DRY DRESSINGS WITH DAKINS 0.25% DAKIN'S SOLUTION.COVER WITH OPTIFOAM DRESSING. REPLACE DRESSING DAILY. LEFT ISCHIUM-STAGE II PRESSURE ULCER MEASURES 4.5X0.5X0.2CM. PINK GRANULATION TISSUE NOTED. RECOMMEND- CLEAN WITH SALINE, PAT DRY. APPLY CALAZINE AND COVER WITH OPTIFOAM DRESSING. LEFT ANTERIOR LOW LEG-VENOUS ULCER MEASURES 8.0X2.6X0.2CM 100% YELLOW SLOUGH NOTED TO WOUND BED. RECOMMEND- CLEAN WITH SALINE, PA DRY. APPLY THERAHONEY. COVER WITH GAUZE AND SECURE WITH KERLIX. REPLACE DRESSING DAILY. LEFT HEEL- UNSTAGEABLE PRESSURE ULCER MEASURES 9.5X8.0X0.3CM. 100% MOIST BLACK ESCHAR. WITH STRONG FOUL ODOR. RECOMMEND- CLEAN WITH SALINE. APPLY WET TO DRY DRESSINGS WITH DAKINS 0.25% DAKIN'S SOLUTION. COVER WITH GAUZE, ABD PAD AND SECURE WITH KERLIX. REPLACE DAILY. RIGHT ANTERIOR LOW LEG-VENOUS ULCER MEASURES 2.5X3.0X0.2CM WITH PINK GRANULATION TISSUE. RIGHT ANTERIOR DISTAL LOW LEG -VENOUS ULCER MEASURES 1.5X0.2X0.1CM WITH PINK GRANULATION TISSUE. RECOMMEND-CLEAN WITH SALINE PAT DRY. APPLY XEROFORM GAUZE, GAUZE AND COVER WITH KERLIX. REPLACE DAILY RIGHT HEEL-DTI MEASURES 2.5X3.0CM. AREA DARK PURPLE IN COLOR AND BOGGY TO TOUCH. NO DRAINAGE NOTED. RECOMMEND- PAINT WITH CAVILON SKIN PROTECTOR, GAUZE AND WRAP WITH KERLIX. REPLACE DAILY. We will follow with recommendations thank you for letting participate patient's care Fairly numerous bubbles of soft tissue gas are seen within the subcutaneous fat and possibly the intrinsic musculature of the plantar surface of the heel. There is high STIR and decreased T1 signal within the calcaneus, and there is indistinctness of the inferior and posterior cortical margins of the calcaneus. There is some soft tissue ulceration of the plantar surface of the heel, as well as marked thinning of the subcutaneous fat overlying the calcaneal tuberosity. There is considerable edema of the plantar surface subcutaneous fat. There is also edema of the subcutaneous fat of the lateral and medial ankle. No focal discrete fluid collection to suggest drainable abscess demonstrated. Impression: Evidence of ulceration overlying the calcaneal tuberosity Soft tissue gas within the heel, as described. This may represent penetration the above, but is worrisome for infection with a gas-forming organism Abnormal signal within the posterior and mid calcaneus, highly suspicious for acute osteomyelitis (8) Decubitus ulcer of heel (9) Diabetes mellitus out of control (10) Acute on chronic renal failure (11) NSTEMI (non-ST elevated myocardial infarction) (12) High anion gap metabolic acidosis Joseph Alamo May 03, 2020 17:42
[2020-05-03] MEDS: Cefepime HCl 2 GM in D5W 55 ML IVPB SCH (17:49)
--- NOTE | 2020-05-03 17:49 | NUR ---
RADIOLOGY NOTE: RIJ NON TUNNELLED DIALYSIS CATHETER PLACEMENT BY DR. KATHIA MOMIN AT 1721 HRS. FA
--- NOTE | 2020-05-03 17:52 | Brief Operative Note ---
Immediate Post Operative Note Operative Note Pre-op Diagnosis: renal failure Procedure: Merlin stevenson Post-op Diagnosis: same as pre-op Anesthesia: local Specimen: none Complications: none Fluids: none Implant(s) used?: No Estuardo Fleming MD May 03, 2020 17:52
--- NOTE | 2020-05-03 18:00 | NUR ---
NURSE NOTES: Pt came back from radiology with stable condition. Noted with right IJ elva. Dressing clean, dry and intact.
[2020-05-03] MEDS ORDERED: Heparin 5000 units/ml inj IV SCH (18:39)
[2020-05-03] MEDS ORDERED: Heparin 25,000u/D5W 500ml 500 ML IV SCH (18:40)
--- NOTE | 2020-05-03 18:41 | Diagnostic Imaging Report ---
Indication:Needs dialysis access Technique: Procedural timeout performed. Informed consent obtained prior to commencement of the procedure.. Ultrasound confirms patent compressible right internal jugular vein. Total sterile technique, including sterile probe cover and sterile gel, sterile gloves, hand hygiene, hat, mask, sterile gown, large sterile drape, and preparation with 2% chlorhexidine utilized.Local anesthesia with 1% lidocaine. Under real-time ultrasound guidance, puncture right internal jugular vein using 21-gauge micropuncture needle, passage 0.018 guidewire, insertion 4 Slovak micropuncture introducer, passage 0.035 guidewire, over which was passed serial dilators and then a 15 cm long triple-lumen temporary dialysis catheter, under fluoroscopic supervision. Completion stored digital radiograph obtained, demonstrating catheter tip position at the mid superior vena cava The patient tolerated the procedure well, without immediate complication. Fluoroscopy time 25.3 seconds Dose Area Product 2.4 mGym2 Impression: Successful placement of right jugular temporary dialysis catheter, as described.
--- NOTE | 2020-05-03 18:49 | Infectious Diseases Prog Note ---
Assessment/Plan Assessment/Plan A) 1) left heel/foot osteomyelitis - s/p I/D (04/07/20), polymicrobial 2) JYOTI - HD 3) pmh noted 4) allergies - pcn, tolerates cephalosporins 5) fungal uti P) 1) doxycycline, cefepime and flagyl - day # / 2) wound management per surgery 3) monitor labs 4) diflucan x 5 days for fungal uti Subjective Constitutional: Denies: fever HEENT: Denies: congestion Respiratory: Denies: shortness of breath Allergies: Coded Allergies: PENICILLINS (Verified Allergy, Unknown, 12/05/17) Objective Last 24 Hour Vital Signs Date Time Temp Pulse Resp B/P (MAP) Pulse Ox O2 Delivery O2 Flow Rate FiO2 05/03/20 17:30 86 22 114/53 (73) 100 05/03/20 17:25 89 22 124/54 (77) 100 05/03/20 17:18 87 20 05/03/20 16:00 98.0 83 18 120/54 (76) 98 05/03/20 12:00 98.4 94 18 125/68 (87) 98 05/03/20 09:00 97.8 100 18 122/64 (83) 98 05/03/20 06:57 Room Air 05/03/20 04:00 97.1 96 18 116/68 (84) 98 05/03/20 00:00 97.2 100 20 91/55 (67) 100 05/02/20 20:00 97.1 95 18 117/73 (88) 94 Height (Feet): 5 Height (Inches): 7.00 Weight (Pounds): 130 General Appearance: no acute distress HEENT: normocephalic Respiratory/Chest: lungs clear, normal breath sounds, no respiratory distress Cardiovascular: normal rate, regular rhythm Abdomen: normal bowel sounds, soft, non tender, non distended Microbiology Date/Time Source Procedure Growth Status 05/01/20 15:50 Urine,Clean Catch Urine Culture - Preliminary Yeast Species Resulted 05/01/20 15:30 Rectum Received Laboratory Tests Test 05/03/20 00:10 05/03/20 05:30 05/03/20 06:07 05/03/20 08:45 POC Whole Blood Glucose 393 MG/DL (74-106) H 302 MG/DL (74-106) H White Blood Count 12.6 K/UL (4.8-10.8) H Red Blood Count 3.52 M/UL (4.20-5.40) L Hemoglobin 10.9 G/DL (12.0-16.0) L Hematocrit 31.3 % (37.0-47.0) L Mean Corpuscular Volume 89 FL (80-99) Mean Corpuscular Hemoglobin 31.0 PG (27.0-31.0) Mean Corpuscular Hemoglobin Concent 34.8 G/DL (32.0-36.0) Red Cell Distribution Width 18.0 % (11.6-14.8) H Platelet Count 183 K/UL (150-450) Mean Platelet Volume 9.4 FL (6.5-10.1) Neutrophils (%) (Auto) 71.8 % (45.0-75.0) Lymphocytes (%) (Auto) 19.1 % (20.0-45.0) L Monocytes (%) (Auto) 7.4 % (1.0-10.0) Eosinophils (%) (Auto) 0.8 % (0.0-3.0) Basophils (%) (Auto) 0.8 % (0.0-2.0) Sodium Level 145 MMOL/L (136-145) Potassium Level 3.1 MMOL/L (3.5-5.1) L Chloride Level 112 MMOL/L (98-107) H Carbon Dioxide Level 16 MMOL/L (21-32) L Anion Gap 17 mmol/L (5-15) H Blood Urea Nitrogen 44 mg/dL (7-18) H Creatinine 5.5 MG/DL (0.55-1.30) H Estimat Glomerular Filtration Rate 9.3 mL/min (>60) Glucose Level 283 MG/DL (74-106) H Calcium Level 7.0 MG/DL (8.5-10.1) L Phosphorus Level 4.0 MG/DL (2.5-4.9) Magnesium Level 1.5 MG/DL (1.8-2.4) L Random Vancomycin Level 30.7 ug/mL Test 05/03/20 12:35 05/03/20 14:05 05/03/20 18:05 POC Whole Blood Glucose 277 MG/DL (74-106) H 292 MG/DL (74-106) H Activated Partial Thromboplast Time 34 SEC (23-33) H Current Medications Medications (Trade) Dose Ordered Sig/Enrike Route PRN Reason Start Time Stop Time Status Last Admin Dose Admin Barium Sulfate (Varibar Honey) 250 ml NOW PRN MC RAD 05/01/20 21:00 05/04/20 20:57 Barium Sulfate (Varibar [place]) 240 ml NOW PRN MC RAD 05/01/20 21:00 05/04/20 20:57 Barium Sulfate (Varibar Pudding) 230 ml NOW PRN MC RAD 05/01/20 21:00 05/04/20 20:57 Barium Sulfate (Varibar Thin Liquid powder) 148 gm NOW PRN MC RAD 05/01/20 21:00 05/04/20 20:57 Bisacodyl (Dulcolax) 10 mg DAILYPRN PRN RECTAL Constipation 05/01/20 20:30 07/30/20 20:29 Cefepime HCl 2 gm/ Dextrose 55 ml @ 110 mls/hr Q24H IVPB 05/02/20 18:00 05/09/20 17:59 05/03/20 17:49 Chlorhexidine Gluconate (Holli-Hex 2%) 1 applic DAILY@2000 TOPIC 05/02/20 20:00 07/31/20 19:59 05/02/20 22:08 Dextrose (Dextrose 50%) 25 ml Q30M PRN IV Hypoglycemia 05/01/20 20:30 07/30/20 20:29 Dextrose (Dextrose 50%) 50 ml Q30M PRN IV Hypoglycemia 05/01/20 20:30 07/30/20 20:29 Doxycycline Hyclate 100 mg/ Dextrose 110 ml @ 110 mls/hr Q12HR IV 05/02/20 21:00 05/09/20 20:59 05/03/20 12:23 Fluconazole (Diflucan) 100 mg DAILY ORAL 05/04/20 09:00 05/11/20 08:59 Heparin Sodium (Porcine) (Heparin 5000 units/ml) 4,500 units ONCE IV 05/03/20 18:39 05/03/20 21:00 Heparin Sodium/ Dextrose 500 ml @ 21.228 mls/ hr ADJUST PER PROTOCOL IV 05/03/20 18:40 06/02/20 18:39 Heparin Sodium/ Sodium Chloride (Heparin 1000 units/500ml Premix) 1,000 unit ONCE PRN IV PROCEDURE 05/03/20 13:13 05/03/20 23:59 Insulin Aspart (NovoLOG) Q6HR SUBQ 05/03/20 00:00 08/01/20 00:00 05/03/20 18:21 Lidocaine HCl (Xylocaine 1% 30ml) 30 ml ONCE PRN INJ procedure 05/03/20 13:13 05/03/20 23:59 Lorazepam (Ativan 2mg/ml 1ml) 0.5 mg Q4H PRN IV For Anxiety 05/01/20 20:30 05/08/20 20:29 Metronidazole (Flagyl) 500 mg EVERY 8 HOURS ORAL 05/03/20 22:00 05/10/20 21:59 Ondansetron HCl (Zofran) 4 mg Q6H PRN IVP Nausea & Vomiting 05/01/20 20:30 05/31/20 20:29 Sodium Bicarbonate 50 ml/ Sodium Chloride 1,050 ml @ 75 mls/hr Q14H IV 05/03/20 12:00 06/02/20 11:59 05/03/20 12:00 Sodium Bicarbonate (NaHCO3) 650 mg THREE TIMES A DAY ORAL 05/02/20 18:00 06/01/20 17:59 Elyse Leung MD May 03, 2020 18:49
--- NOTE | 2020-05-03 19:45 | NUR ---
NURSE HAND-OFF: Important Events on Shift:[DVT on DEANNE, Removed PICC, oliguria, CT head negative, R IJ elva cath placement for HD, Endorsed heparin IV, dirp to manager night] Patient Status: [stable] Diet: [NPO] Pending Orders: [] Pending Results/Labs:[] Pending MD notification:[] Latest Vital Signs: Temperature 98.0 , Pulse 86 , B/P 114 /53 , Respiratory Rate 22 , O2 SAT 100 , Room Air, O2 Flow Rate . Vital Sign Comment: [stable] Latest Hernandez Fall Score: 50 Fall Risk: High Risk Safety Measures: Call light Within Reach, Bed Alarm Zone 2, Side Rails Side Rails x3, Bed position Low and Locked. Fall Precautions: Yellow Socks Yellow Gown Report given to [ZACH Judd].
[2020-05-03] MEDS: Dyna-Hex 2% Top Sol 2oz TOPIC SCH (20:05)
--- NOTE | 2020-05-03 20:11 | General Progress Note ---
Subjective Date patient seen: May 03, 2020 Allergies: Coded Allergies: PENICILLINS (Verified Allergy, Unknown, 12/05/17) Subjective No acute events overnight per nursing. Patient still encephalopathic. Altered. TOld by RN that alaniz not in urethra. RN to re-insert. Not much urine returned. Found to have LUE DVT. Heme consulted. Will remove PICC, place new temp HD line and start heparin GTT pending clearance of Head CT. Sister Latoya in agreement with plan for line and heparin gtt. Unable to obtain ROS due to ALOC Objective Last 24 Hour Vital Signs Date Time Temp Pulse Resp B/P (MAP) Pulse Ox O2 Delivery O2 Flow Rate FiO2 05/03/20 17:30 86 22 114/53 (73) 100 05/03/20 17:25 89 22 124/54 (77) 100 05/03/20 17:18 87 20 05/03/20 16:00 98.0 83 18 120/54 (76) 98 05/03/20 12:00 98.4 94 18 125/68 (87) 98 05/03/20 09:00 97.8 100 18 122/64 (83) 98 05/03/20 06:57 Room Air 05/03/20 04:00 97.1 96 18 116/68 (84) 98 05/03/20 00:00 97.2 100 20 91/55 (67) 100 Intake and Output 05/02/20 05/03/20 19:00 07:00 Output Total 50 ml Balance -50 ml Output Urine Total 50 ml # Bowel Movements 1 Laboratory Tests 05/03/20 00:10: POC Whole Blood Glucose 393H 05/03/20 05:30: White Blood Count 12.6H, Red Blood Count 3.52L, Hemoglobin 10.9L, Hematocrit 31.3L, Mean Corpuscular Volume 89, Mean Corpuscular Hemoglobin 31.0, Mean Corpuscular Hemoglobin Concent 34.8, Red Cell Distribution Width 18.0H, Platelet Count 183, Mean Platelet Volume 9.4, Neutrophils (%) (Auto) 71.8, Lymphocytes (%) (Auto) 19.1L, Monocytes (%) (Auto) 7.4, Eosinophils (%) (Auto) 0.8, Basophils (%) (Auto) 0.8 05/03/20 06:07: POC Whole Blood Glucose 302H 05/03/20 08:45: Sodium Level 145, Potassium Level 3.1L, Chloride Level 112H, Carbon Dioxide Level 16L, Anion Gap 17H, Blood Urea Nitrogen 44H, Creatinine 5.5H, Estimat Glomerular Filtration Rate 9.3, Glucose Level 283H, Calcium Level 7.0L, Phosphorus Level 4.0, Magnesium Level 1.5L, Random Vancomycin Level 30.7 05/03/20 12:35: POC Whole Blood Glucose 277H 05/03/20 14:05: Activated Partial Thromboplast Time 34H 05/03/20 18:05: POC Whole Blood Glucose 292H Height (Feet): 5 Height (Inches): 7.00 Weight (Pounds): 130 Objective General: WDWN female in NAD, A&O x 0 (baseline is A&o x 1), sleeping but arousable. HEENT: Normocephalic cephalic atraumatic, pupils equal round reactive to light and accommodation, nares patent and no symmetrical, no tonsillar exudates, mucous membranes moist CV: Regular rate regular rhythm, no murmurs, rubs, or gallops Pulm: Lungs clear to auscultation bilaterally. No wheezes, rhonchi, or rales GI: Soft, nontender, nondistended, bowel sounds present Neuro: CN 2-12 intact bilaterally, no focal signs. Ext: No lower extremity edema bilaterally. LUE 1-2+ edema Skin: no rashes lesions or ulcers Msk: Joints symmetrical in upper extremity and lower extremity bilaterally, no joint swelling. Lymph: No lymphadenopathy in upper extremity and lower extremity Assessment/Plan Assessment/Plan: This is a 69-year-old female presenting with acute encephalopathy, JYOTI, acute UTI. #Acute kidney injury, suspect possible Vanc toxicity vs. component of pre renal as well. FeNA elevated suggesting intrinsic process #Hypokalemia #Hypomagnesemia > FeNA 3.8% suspect intrinsic -Admit to telemetry -Urine sodium, urine creatinine, urine eosinophils: reviewed -Renal ultrasound: no hydro, medical renal disease -Insert Alaniz catheter for strict I's and O's -Check vanc level: in 30s - IV fluids -Avoid nephrotoxins -Trend creatinine -Appreciate nephro consult: Dr. Waterman -mario carey PRN - d/w Sister Latoya who is medical decision maker. Confirmed ok with HD (pending consent by Nephro) - d/w Risks and benefits of temporary HD line up to and including pain, bleeding, infection, damage to nearby structures, etc. Sister provided consent. RN to confirm and obtain official consent. #Acute metabolic encephalopathy #Underlying dementia #Acute UTI #LLE osteomyelitis s/p debridement on 04/07/2020 with bone biopsy and cultures obtained. #Stage II sacral decubitus ulcer > CTH no acute abnormality >EKG reviewed -Blood cultures -Urine culture -Appreciate ID consult: Bola -Lora gen surgery consult: Jasmeet -Neurology consult: D/w Dr. Lee -Holding Vanc due to elevated Vanco level - Switch to doxycycline instead (04/07 - ) -Continue Cefepime (renally dosed). (04/07 - ) -Continue Flagyl (04/07 - ) -Continue Abx for 42 days -swallow eval: pending -check TSH: normal -check lactate: normal -trend troponin: normal #Acute LUE DVT, picc related - D/w Heme and surgery - remove PICC line - Start heparin GTT after picc removed pending repeat CT head (normal) #DM2 -Hold lantus -hold metformin -SSI -accuchecks -hypoglycemia protocol #essential hypertension #hyperlipidemia -hold home amlodipine for now -hold benazepril -holding asa -holding statin FENPPX DVTPPX: HSQ Fluids: as above Diet: NPO pending swallow eval Lines: PIV, LUE PICC PT/OT: pending Code status: Full per SNF Dispo: back to SNF Reason for Continued Hospitalization: jyoti MIPS ([employer]-based Incentive Payment System) Applicable CPT: 38800, 10994 CHECK ALL THAT ARE MET: [] Measure #5 (CHF): All ages. Prescribe DESTINEY/ARB upon discharge for patients with left ventricular systolic dysfunction. If not, the reason is clearly documented in the medical chart [] Measure #8 (CHF): All ages. Prescribe a beta jennifer upon discharge for patients with left ventricular systolic dysfunction. If not, the reason is juliann rly documented in the medical chart. [] Measure #47: Advance care plan or surrogate decision maker documented in the medical record. [x] Measure #130 The provider has documented, updated, or reviewed the patients current medication list and has documented it in the patients note. [x] Measure #374 (All): Send report to referring provider. [] Measure #407(Sepsis due to MSSA bacteremia): Age 18+ Patient treated with a beta-lactam antibiotic (Nafcillin, Oxacillin or Cefazolin) as definitive therapy. MEDICAL COMPLEXITYHigh complexity medical decision making (need 2/3 categories)Problem - need 4 points [x]Acute/new problem with new plan for workup (4 points, 1 max) [] Acute/new problem without additional workup (3 points, 1 max) [x] Unstable chronic problem actively being managed (2 point each, 2 max) [x] Stable chronic problem actively being managed (1 point each, 2 max) [x] Self-limited/transient process (constipation, muscle ache, etc) (1 point each, 2 max) Data - need 4 points [x] Reviewed labs/imaging studies (1 points, 2 max) [x] Independent review of imaging (EKG, xrays, etc) (2 points, 2 max) [x] Discussed case with consult/other MD/RN (2 points, 2 max) High Risk - qualify if have one of the following: [x] Severe exacerbation of acute problem, acute mental status change, IV narcotics, monitoring drug levels (vancomycin, INR, tacrolimus etc) I spent 36 minutes on this patient's case, and 22 mins was dedicated to counseling and/or care coordination. Discussed with nephro, ID, gen surgery, neurology. I spent an additional 33 minutes of further face to face time on counseling and care coordination in addition to usual care as detailed above. D/w sister latoya on the phone at length regarding currrent medical plan, consent for PICC line, HD, and plan of care, etc. Multiple questions. All questions answered Time of note may not reflect time of encounter Patrick Cerda D.O. May 03, 2020 20:11
--- NOTE | 2020-05-03 20:32 | Neurology Progress Note ---
Interim History Interim History ROS Limited/Unobtainable: Yes Interim History remains confused Objective Physical Exam Last Vital Signs Date Time Temp Pulse Resp B/P (MAP) Pulse Ox O2 Delivery O2 Flow Rate FiO2 05/03/20 17:30 86 22 114/53 (73) 100 05/03/20 16:00 98.0 05/03/20 06:57 Room Air Laboratory Tests Test 05/03/20 00:10 05/03/20 05:30 05/03/20 06:07 05/03/20 08:45 POC Whole Blood Glucose 393 MG/DL (74-106) H 302 MG/DL (74-106) H White Blood Count 12.6 K/UL (4.8-10.8) H Red Blood Count 3.52 M/UL (4.20-5.40) L Hemoglobin 10.9 G/DL (12.0-16.0) L Hematocrit 31.3 % (37.0-47.0) L Mean Corpuscular Volume 89 FL (80-99) Mean Corpuscular Hemoglobin 31.0 PG (27.0-31.0) Mean Corpuscular Hemoglobin Concent 34.8 G/DL (32.0-36.0) Red Cell Distribution Width 18.0 % (11.6-14.8) H Platelet Count 183 K/UL (150-450) Mean Platelet Volume 9.4 FL (6.5-10.1) Neutrophils (%) (Auto) 71.8 % (45.0-75.0) Lymphocytes (%) (Auto) 19.1 % (20.0-45.0) L Monocytes (%) (Auto) 7.4 % (1.0-10.0) Eosinophils (%) (Auto) 0.8 % (0.0-3.0) Basophils (%) (Auto) 0.8 % (0.0-2.0) Sodium Level 145 MMOL/L (136-145) Potassium Level 3.1 MMOL/L (3.5-5.1) L Chloride Level 112 MMOL/L (98-107) H Carbon Dioxide Level 16 MMOL/L (21-32) L Anion Gap 17 mmol/L (5-15) H Blood Urea Nitrogen 44 mg/dL (7-18) H Creatinine 5.5 MG/DL (0.55-1.30) H Estimat Glomerular Filtration Rate 9.3 mL/min (>60) Glucose Level 283 MG/DL (74-106) H Calcium Level 7.0 MG/DL (8.5-10.1) L Phosphorus Level 4.0 MG/DL (2.5-4.9) Magnesium Level 1.5 MG/DL (1.8-2.4) L Random Vancomycin Level 30.7 ug/mL Test 05/03/20 12:35 05/03/20 14:05 05/03/20 18:05 POC Whole Blood Glucose 277 MG/DL (74-106) H 292 MG/DL (74-106) H Activated Partial Thromboplast Time 34 SEC (23-33) H Impression/Recommendations Problems: (1) Sepsis (2) Hyperkalemia (3) Leukocytosis (4) Altered mental status (5) Diabetes mellitus out of control (6) Acute on chronic renal failure (7) NSTEMI (non-ST elevated myocardial infarction) (8) High anion gap metabolic acidosis (9) Sacral decubitus ulcer (10) Decubitus ulcer of heel (11) UTI (urinary tract infection) (12) JYOTI (acute kidney injury) Diagnostic Impression acute metabolic encephalopathy jyoti sepsis baseline dementia cont ivfs delirium precautions no need for mri brain cont Thee Burden MD May 03, 2020 20:32
--- NOTE | 2020-05-03 20:34 | NUR ---
NURSE NOTES: patient in bed, asleep, unable to make needs known. Respiration is even and unlabored. Kept clean and comfortable. Provided safe environment. Skin is warm, noted with multiple dressings, intact. No iv site. Abdomen is soft and non distended. Vargas catheter noted. Will need o start heparin drip. Call light is at bedside. Will continue plan of care.
--- NOTE | 2020-05-03 21:02 | Consultation ---
DATE OF CONSULTATION: 05/03/2020 INFECTIOUS DISEASE CONSULTATION CONSULTING PHYSICIAN: Elyse Leung MD ATTENDING PHYSICIAN: Reynaldo Veras MD REFERRING PHYSICIAN: Patrick Cerda DO REASON FOR CONSULTATION: Left heel and foot osteomyelitis infected wound, fungal UTI, possible sepsis, elevated white count. CHIEF COMPLAINT: Patient's chief complaint coming to the hospital is acute kidney injury. HISTORY OF PRESENT ILLNESS: This is a 69-year-old female who has history of osteomyelitis. She was on Vanco, cefepime, Flagyl. The possibilities of left heel and foot based on MRI findings. She had an infected wound. I believe she had debridement at the time of previous hospitalization. Cultures were polymicrobial including Staph aureus, Proteus, and Bacteroides. Patient now presents to [facility] with acute renal failure. Infectious Disease consultation is requested for antibiotic management. Patient was placed on doxycycline, cefepime, and Flagyl. She is allergic to penicillin. Patient likely will need dialysis. She also looks like she has a fungal UTI, elevated white count, possible sepsis. UA also had positive white cells and turned out to be yeast and fungal UTI. Patient currently is on doxycycline and Flagyl. I added Diflucan. MAR was noted. Orders were noted. Notes and records reviewed. Of note, this is day #26/42 of antibiotic treatment. REVIEW OF SYSTEMS: CONSTITUTIONAL: Patient really cannot give much of history. She is getting dialysis catheter. She is weak. She has no fevers. HEAD AND NECK: No obvious head pain or neck pain. CARDIAC: No pressors. No chest pain. GASTROINTESTINAL: No nausea, vomiting, or diarrhea. GENITOURINARY: She is getting hemodialysis. PULMONARY: No significant shortness of breath. SKIN: Wounds are covered. No rash. NEUROLOGIC: No seizures. Generalized fatigue. PAST MEDICAL HISTORY: Diabetes type 2, essential hypertension, hyperlipidemia, acute kidney injury, left heel and foot osteo, infected wounds. ALLERGIES: To penicillin, tolerates cephalosporins. SOCIAL HISTORY: Negative for smoking, alcohol, or drug abuse. FAMILY HISTORY: Noncontributory. MEDICATIONS: She is on fluconazole, cefepime, doxycycline, and Flagyl. She is on heparin. She is on insulin, chlorhexidine, heparin, lorazepam, Zofran. Vancomycin was discontinued. Outside medications noted and reconciliated. PHYSICAL EXAMINATION: VITAL SIGNS: Temperature 98.0, pulse rate is 83, respiratory rate 18, blood pressure 120/54, saturation 98%. GENERAL: Weak. Opens eyes. HEAD AND NECK: Oral exam, no thrush. Eye exam, no icterus. Normocephalic. Neck is supple. No JVD. HEART: Regular. No gallop or murmur. ABDOMEN: Soft. Positive bowel sounds. Nontender. LUNGS: Few bilateral rhonchi. No definite rales. SKIN: No rash or dermatitis. MUSCULOSKELETAL: No effusion. Legs are without cellulitis. PERIPHERAL VASCULAR: Left heel exam was reviewed. Still has infected wound and slough. NEUROLOGIC: Generalized weakness. LINE SITES: Without phlebitis. GENITOURINARY: She is currently hemodialysis patient. LABORATORY DATA: UA had 30 to 40 white blood cells, many yeast. Creatinine is 5.5. White count 12.6, hemoglobin 10.9. LFTs were noted. Urine culture greater than 100,000 yeasts. Previous cultures in the previous hospitalization of left heel had Staph aureus, Proteus, and Bacteroides. Chest x-ray will be ordered. Previous MRI in the last hospitalization showed MRI of the left heel and foot. ASSESSMENT AND PLAN: 1. Patient has polymicrobial left heel and foot osteomyelitis. Patient is status post I and D or incision and drainage. The wound culture in the past had Staph aureus, Proteus, and Bacteroides. She was on Vanco, cefepime, and Flagyl, but I am going to change her to doxy, cefepime, and Flagyl because of acute renal failure. This is day #26/42 of antibiotics for the left heel infected wound and osteo and also left foot. Continue doxy, cefepime, Flagyl for left heel/foot osteo, infected wound. Check pending workup with Surgery. Finish 6-week total course. Check sedimentation rate. In regards to fungal UTI, we will give a 5-day treatment course because of elevated white count, possible sepsis. Check followup laboratories. 2. Acute renal failure. Dialysis. 3. Diabetes. 4. Hypertension. 5. Dyslipidemia. 6. Diabetes and hypertension treatment per primary care team. 7. Anemia. 8. Wound care per Surgery. 9. Allergic to penicillin. 10. Social history is negative. 11. Family history is noncontributory. 12. MAR is noted. 13. Case discussed with RN. Elyse Leung M.D. DR: EVANGELIST JOB#: [id number] CC:
[2020-05-03] MEDS ORDERED: metroNIDAZOLE 500mg tab ORAL SCH (22:00)
[2020-05-04] VITALS: BP 128/60
[2020-05-04] MEDS: Sodium Bicarbonate 50 ML in 1/2 NS 1000ml 1,000 ML IV SCH ×2 (02:00→12:19)
[2020-05-04 02:30] LABS: BASOPHILS % (AUTO) 0.9 % (0.0-2.0); EOSINOPHILS % (AUTO) 0.9 % (0.0-3.0); HEMATOCRIT 29.2 % (37.0-47.0); HEMOGLOBIN 10.1 G/DL (12.0-16.0); MEAN CORPUSCULAR VOLUME 89 FL (80-99); MONOCYTES % (AUTO) 7.5 % (1.0-10.0); NEUTROPHILS % (AUTO) 74.7 % (45.0-75.0); PLATELET COUNT 152 K/UL (150-450); RED CELL DISTRIBUTION WIDTH 17.5 % (11.6-14.8); WHITE BLOOD COUNT 13.4 K/UL (4.8-10.8)
--- NOTE | 2020-05-04 02:40 | NUR ---
NURSE NOTES: Ptt draw has been down, will follow up with result.
[2020-05-04 02:49] LABS: ALBUMIN 1.3 G/DL (3.4-5.0); ALBUMIN/GLOBULIN RATIO 0.3 (1.0-2.7); BILIRUBIN,TOTAL 0.3 MG/DL (0.2-1.0); CALCIUM 6.8 MG/DL (8.5-10.1); CREATININE 5.7 MG/DL (0.55-1.30)
[2020-05-04 03:04] LABS: PHOSPHORUS 3.7 MG/DL (2.5-4.9)
[2020-05-04 04:00] VITALS: BP 115/57
[2020-05-04] MEDS ORDERED: Heparin 25,000u/D5W 500ml 500 ML IV SCH ×3 (04:30→21:15)
--- NOTE | 2020-05-04 04:37 | NUR ---
NURSE NOTES: Restarted heparin drip[ with new rate.
--- NOTE | 2020-05-04 05:00 | NUR ---
NURSE NOTES: Pigtail dressing changed, clean, intact. Changed bed, bm and urine. kept clean and comfortable. Provided safe environment. Will continue plan of care.
[2020-05-04] MEDS: NovoLOG Insulin Flexpen SUBQ SCH ×3 (05:25→18:26)
--- NOTE | 2020-05-04 06:46 | NUR ---
NURSE NOTES: Left a call back number regarding abnormal labs.
--- NOTE | 2020-05-04 06:49 | Consultation ---
History of Present Illness General Chief Complaint: General Complaint Present Illness Allergies: Coded Allergies: PENICILLINS (Verified Allergy, Unknown, 12/05/17) Medication History Scheduled Amlodipine Besylate* (Amlodipine Besylate*), 5 MG ORAL DAILY, (Reported) Arginine/Ascorbate Sod/Kumar AC (Arginaid Powder), 1 EACH PO TWICE A DAY, (Reported) Ascorbic Acid* (Ascorbic Acid*), 500 MG ORAL TWICE A DAY, (Reported) Aspirin* (Aspirin*), 81 MG ORAL DAILY, (Reported) Atorvastatin Calcium* (Lipitor*), 80 MG ORAL BEDTIME, (Reported) Benazepril Hcl* (Benazepril Hcl*), 40 MG ORAL DAILY, (Reported) Cefepime Hcl/Dextrose, Iso-Osm (Cefepime 2 Gm Injection), 2 GM IV EVERY 12 HOURS Enoxaparin* (Lovenox*), 40 MG SUBQ Q24H Insulin Glargine (Lantus), 20 UNITS SUBQ QHS, (Reported) Insulin Lispro (Humalog), 4 UNITS SUBQ THREE TIMES A DAY, (Reported) Metformin Hcl* (Metformin Hcl*), 500 MG ORAL TWICE A DAY, (Reported) Metronidazole* (Flagyl*), 500 MG ORAL Q8HR Metronidazole* (Flagyl*), 500 MG ORAL EVERY 8 HOURS, (Reported) Multivitamins* (Multivitamins*), 1 TAB ORAL DAILY, (Reported) Nut.tx.gluc.intoler,Lac-Fr,Soy (Glucerna), Unknown Dose PO TWICE A DAY, (Reported) Vancomycin In Dextrose,Iso-Osm (Vancomycin 750 Mg/150 Ml Bag), 750 MG IV EVERY 12 HOURS Zinc Sulfate (Zinc Sulfate*), 220 MG ORAL DAILY, (Reported) Patient History Healthcare decision maker Resuscitation status Advanced Directive on File Physical Exam Last 24 Hour Vital Signs Date Time Temp Pulse Resp B/P (MAP) Pulse Ox O2 Delivery O2 Flow Rate FiO2 05/04/20 04:00 97.4 80 18 115/57 (76) 97 05/04/20 00:00 99.0 92 18 128/60 (82) 95 05/03/20 21:00 Room Air 05/03/20 20:00 98.6 99 18 134/59 (84) 96 05/03/20 17:30 86 22 114/53 (73) 100 05/03/20 17:25 89 22 124/54 (77) 100 05/03/20 17:18 87 20 05/03/20 16:00 98.0 83 18 120/54 (76) 98 05/03/20 12:00 98.4 94 18 125/68 (87) 98 05/03/20 09:00 97.8 100 18 122/64 (83) 98 05/03/20 06:57 Room Air Intake and Output 05/03/20 05/04/20 19:00 07:00 Intake Total 883.596 ml Output Total 200 ml Balance -200 ml 883.596 ml Intake IV Total 883.596 ml Output Urine Total 200 ml # Voids 1 # Bowel Movements 1 Laboratory Tests Test 05/03/20 08:45 05/03/20 12:35 05/03/20 14:05 05/03/20 18:05 Sodium Level 145 MMOL/L (136-145) Potassium Level 3.1 MMOL/L (3.5-5.1) L Chloride Level 112 MMOL/L (98-107) H Carbon Dioxide Level 16 MMOL/L (21-32) L Anion Gap 17 mmol/L (5-15) H Blood Urea Nitrogen 44 mg/dL (7-18) H Creatinine 5.5 MG/DL (0.55-1.30) H Estimat Glomerular Filtration Rate 9.3 mL/min (>60) Glucose Level 283 MG/DL (74-106) H Calcium Level 7.0 MG/DL (8.5-10.1) L Phosphorus Level 4.0 MG/DL (2.5-4.9) Magnesium Level 1.5 MG/DL (1.8-2.4) L Random Vancomycin Level 30.7 ug/mL POC Whole Blood Glucose 277 MG/DL (74-106) H 292 MG/DL (74-106) H Activated Partial Thromboplast Time 34 SEC (23-33) H Test 05/03/20 21:58 05/03/20 23:44 05/04/20 02:23 05/04/20 05:21 POC Whole Blood Glucose 317 MG/DL (74-106) H Pending 276 MG/DL (74-106) H White Blood Count 13.4 K/UL (4.8-10.8) H Red Blood Count 3.30 M/UL (4.20-5.40) L Hemoglobin 10.1 G/DL (12.0-16.0) L Hematocrit 29.2 % (37.0-47.0) L Mean Corpuscular Volume 89 FL (80-99) Mean Corpuscular Hemoglobin 30.7 PG (27.0-31.0) Mean Corpuscular Hemoglobin Concent 34.7 G/DL (32.0-36.0) Red Cell Distribution Width 17.5 % (11.6-14.8) H Platelet Count 152 K/UL (150-450) Mean Platelet Volume 9.0 FL (6.5-10.1) Neutrophils (%) (Auto) 74.7 % (45.0-75.0) Lymphocytes (%) (Auto) 16.0 % (20.0-45.0) L Monocytes (%) (Auto) 7.5 % (1.0-10.0) Eosinophils (%) (Auto) 0.9 % (0.0-3.0) Basophils (%) (Auto) 0.9 % (0.0-2.0) Activated Partial Thromboplast Time > 150 SEC (23-33) *H Sodium Level 144 MMOL/L (136-145) Potassium Level 3.0 MMOL/L (3.5-5.1) L Chloride Level 113 MMOL/L (98-107) H Carbon Dioxide Level 17 MMOL/L (21-32) L Anion Gap 14 mmol/L (5-15) Blood Urea Nitrogen 46 mg/dL (7-18) H Creatinine 5.7 MG/DL (0.55-1.30) H Estimat Glomerular Filtration Rate 8.8 mL/min (>60) Glucose Level 263 MG/DL (74-106) H Calcium Level 6.8 MG/DL (8.5-10.1) L Phosphorus Level 3.7 MG/DL (2.5-4.9) Magnesium Level 1.5 MG/DL (1.8-2.4) L Total Bilirubin 0.3 MG/DL (0.2-1.0) Aspartate Amino Transf (AST/SGOT) 20 U/L (15-37) Alanine Aminotransferase (ALT/SGPT) 17 U/L (12-78) Alkaline Phosphatase 107 U/L (46-116) Total Protein 5.1 G/DL (6.4-8.2) L Albumin 1.3 G/DL (3.4-5.0) L Globulin 3.8 g/dL Albumin/Globulin Ratio 0.3 (1.0-2.7) L Height (Feet): 5 Height (Inches): 7.00 Weight (Pounds): 130 Medications Current Medications Medications (Trade) Dose Ordered Sig/Enrike Route PRN Reason Start Time Stop Time Status Last Admin Dose Admin Barium Sulfate (Varibar Honey) 250 ml NOW PRN MC RAD 05/01/20 21:00 05/04/20 20:57 Barium Sulfate (Varibar [place]) 240 ml NOW PRN MC RAD 05/01/20 21:00 05/04/20 20:57 Barium Sulfate (Varibar Pudding) 230 ml NOW PRN MC RAD 05/01/20 21:00 05/04/20 20:57 Barium Sulfate (Varibar Thin Liquid powder) 148 gm NOW PRN MC RAD 05/01/20 21:00 05/04/20 20:57 Bisacodyl (Dulcolax) 10 mg DAILYPRN PRN RECTAL Constipation 05/01/20 20:30 07/30/20 20:29 Cefepime HCl 2 gm/ Dextrose 55 ml @ 110 mls/hr Q24H IVPB 05/02/20 18:00 05/09/20 17:59 05/03/20 17:49 Chlorhexidine Gluconate (Holli-Hex 2%) 1 applic DAILY@2000 TOPIC 05/02/20 20:00 07/31/20 19:59 05/03/20 20:05 Dextrose (Dextrose 50%) 25 ml Q30M PRN IV Hypoglycemia 05/01/20 20:30 07/30/20 20:29 Dextrose (Dextrose 50%) 50 ml Q30M PRN IV Hypoglycemia 05/01/20 20:30 07/30/20 20:29 Doxycycline Hyclate 100 mg/ Dextrose 110 ml @ 110 mls/hr Q12HR IV 05/02/20 21:00 05/09/20 20:59 05/03/20 22:20 Fluconazole (Diflucan) 100 mg DAILY ORAL 05/04/20 09:00 05/11/20 08:59 Heparin Sodium/ Dextrose 500 ml @ 16.511 mls/ hr ADJUST PER PROTOCOL IV 05/04/20 04:30 06/03/20 04:29 05/04/20 04:34 Insulin Aspart (NovoLOG) Q6HR SUBQ 05/03/20 00:00 08/01/20 00:00 05/04/20 05:25 Lorazepam (Ativan 2mg/ml 1ml) 0.5 mg Q4H PRN IV For Anxiety 05/01/20 20:30 05/08/20 20:29 Metronidazole 100 ml @ 100 mls/hr Q8H IVPB 05/04/20 00:00 05/11/20 00:00 05/03/20 23:47 Ondansetron HCl (Zofran) 4 mg Q6H PRN IVP Nausea & Vomiting 05/01/20 20:30 05/31/20 20:29 Sodium Bicarbonate 50 ml/ Sodium Chloride 1,050 ml @ 75 mls/hr Q14H IV 05/03/20 12:00 06/02/20 11:59 05/03/20 12:00 Sodium Bicarbonate (NaHCO3) 650 mg THREE TIMES A DAY ORAL 05/02/20 18:00 06/01/20 17:59 Assessment/Plan Assessment/Plan: Hematology Consultaigloria GIPSON MD: Patrick Morillo [facility] DVT of the upper extremity, Persistent Leukocytosis DOS: 05.04.20 ID 69-year-old female presents to ED for increased lethargy, she is well known to me. Brought in by EMS from home. Sister at bedside states that patient has been eating less than usual since the weekend. Has been more lethargic for the last few days. States that this happens sometimes when she refuses to eat. No reported fevers or chills. No nausea or vomiting. No other aggravating relieving factors. No other associated symptoms, has been on abx since admission, see by ID, still with persistently high wbc, and heme has been consulted. Noted to have a right upper ext dvt, started on hep gtt. Allergies: Coded Allergies: PENICILLINS (Verified Allergy, Unknown, 12/05/17) COVID-19 Screening Contact w/high risk pt: No Experienced COVID-19 symptoms?: No COVID-19 Testing performed TEACHER OF THE EMOTIONALLY DISTURBED: No Patient History Past Medical History: HTN, dementia Past Surgical History: none Pertinent Family History: none Social History: Denies: smoking, alcohol use, drug use Now: No Immunizations: UTD Reviewed Nursing Documentation: PMH: Agreed; PSxH: Agreed Nursing Documentation-PMH Hx Hypertension: Yes Hx Diabetes: Yes Hx Neurological Problems: Yes - DEMENTIA Review of Systems All Other Systems: limited Physical Exam Vitals: reviewed, normal General Appearance: no apparent distress, non-toxic, lethargic HEENT: bilateral eye normal inspection, bilateral eye PERRL Neck: full range of motion, supple/symm/no masses Resp: chest non-tender, lungs clear, normal breath sounds, speaking full sentences Cardiovascular: regular rate, rhythm, no edema Gastrointestinal: normal bowel sounds, non tender Rectal: deferred Genitourinary: normal inspection, no CVA tenderness Musculoskeletal: back normal, gait/station normal, non-tender Lymphatic: no adenopathy Labs: reviewed Imaging: noted Assessment and Recs # Left upper extremity axillary, subclavian, and brachial venous thrombosis --> heparin gtt was started --> consider eliquis or coumadin once closer to dc --> patient does have eleno/ckd, thus agent needed not affected by renal function --> monitor for bleed # Leukocytosis likely secondary to left heel and foot osteomyelitis. --> likely due to infected wounds, heel ulcerations --> ABX flucon/flagyl/cefepime --> Peripheral smear, reviewed, hold off flow for now --> elev inflammatory markers --> WBC 35-->22-->18-->14-->13-->11.4->>>13 # Anemia due to underlying chronic disease. --> Continue to closely monitor for improvement. --> Anemia w/u has been reviewed. Will trend cbc daily. --> Hgb goal >7 -> hgb 12-->10.7->9.4-->9.5->10 --> anemia panel reviewed before # Hyperkalemia. Given Kayexalate. --> Improved # Diabetic ketoacidosis. --> per before, improved # ESRD --> hd with line inserted # Shortness of breath in past with dka # Dvt ppx --> hep gtt The time the note was entered does not necessarily correspond to the time the patient was seen. David De Jesus MD May 04, 2020 06:49
--- NOTE | 2020-05-04 06:54 | NUR ---
NURSE NOTES: Received new orders from Dr. Floyd regarding abnormal labs, noted and carried out.
--- NOTE | 2020-05-04 07:39 | NUR ---
NURSE HAND-OFF: Important Events on Shift:New alaniz, urine output observe, heparin drip started Patient Status: Diet: NPO Pending Orders: Multiple Pending Results/Labs: Pending MD notification:WNL Latest Vital Signs: Temperature 97.4 , Pulse 80 , B/P 115 /57 , Respiratory Rate 18 , O2 SAT 97 , Room Air, O2 Flow Rate . Vital Sign Comment: WNL Latest Hernandez Fall Score: 50 Fall Risk: High Risk Safety Measures: Call light Within Reach, Bed Alarm Zone 2, Side Rails Side Rails x3, Bed position Low and Locked. Fall Precautions: Yellow Socks Yellow Gown Report given to ZACH Lucas.
--- NOTE | 2020-05-04 07:45 | NUR ---
NURSE NOTES: Received report from ZACH Judd. Rounding done with outgoing nurse. Pt is asleep. No SOB noted. Pt is on heparin drip. No bleeding noted. Rt wrist IV access is in placed. Bed in lowest position, call light within reach. Will continue to monitor.
[2020-05-04 08:00] VITALS: BP 141/67
--- NOTE | 2020-05-04 08:27 | NUR ---
RADIOLOGY DEPT., CHEST X-RAY DONE.-P.DYE
[2020-05-04] MEDS: Fluconazole 100mg tab ORAL SCH ×2 (09:00→09:13)
[2020-05-04] MEDS: Sodium Bicarbonate 650mg Tab ORAL SCH ×3 (09:13→18:00)
--- NOTE | 2020-05-04 09:47 | Diagnostic Imaging Report ---
Indication: Shortness of breath Technique: One view of the chest Comparison: 03/31/2020 Findings: Interim placement of a right jugular temporary dialysis catheter in satisfactory position. No pneumothorax. The lungs and pleural spaces are clear. The heart size is normal Impression: No acute process
[2020-05-04] MEDS: Doxycycline Hyclate 100 MG in D5W 110 ML IV SCH ×2 (09:48→21:20)
--- NOTE | 2020-05-04 11:30 | NUR ---
NURSE NOTES: Received phone call from laboratory for PTT result is >150. Held heparin drip @1130. Will restart heparin drip @1230 with 10u/kg/hr.
[2020-05-04 12:00] VITALS: BP 104/65
--- NOTE | 2020-05-04 12:00 | Surgery Progress Note ---
Surgery Progress Note Subjective Additional Comments HD line in place lab snoted exam stable on heparin gtt Objective Last 24 Hour Vital Signs Date Time Temp Pulse Resp B/P (MAP) Pulse Ox O2 Delivery O2 Flow Rate FiO2 05/04/20 09:00 Room Air 05/04/20 08:00 98.9 87 17 141/67 (91) 96 05/04/20 04:00 97.4 80 18 115/57 (76) 97 05/04/20 00:00 99.0 92 18 128/60 (82) 95 05/03/20 21:00 Room Air 05/03/20 20:00 98.6 99 18 134/59 (84) 96 05/03/20 17:30 86 22 114/53 (73) 100 05/03/20 17:25 89 22 124/54 (77) 100 05/03/20 17:18 87 20 05/03/20 16:00 98.0 83 18 120/54 (76) 98 05/03/20 12:00 98.4 94 18 125/68 (87) 98 I&O Intake and Output 05/03/20 05/04/20 19:00 07:00 Intake Total 883.596 ml Output Total 200 ml Balance -200 ml 883.596 ml Intake IV Total 883.596 ml Output Urine Total 200 ml # Voids 1 # Bowel Movements 1 Dressing: saturated Cardiovascular: RSR Respiratory: decreased breath sounds Abdomen: soft, non-tender, present bowel sounds, non-distended Extremities: no tenderness, no cyanosis, other Laboratory Tests Test 05/03/20 12:35 05/03/20 14:05 05/03/20 18:05 05/03/20 21:58 POC Whole Blood Glucose 277 MG/DL (74-106) H 292 MG/DL (74-106) H 317 MG/DL (74-106) H Activated Partial Thromboplast Time 34 SEC (23-33) H Test 05/03/20 23:44 05/04/20 02:23 05/04/20 05:21 05/04/20 10:18 POC Whole Blood Glucose Pending 276 MG/DL (74-106) H White Blood Count 13.4 K/UL (4.8-10.8) H Red Blood Count 3.30 M/UL (4.20-5.40) L Hemoglobin 10.1 G/DL (12.0-16.0) L Hematocrit 29.2 % (37.0-47.0) L Mean Corpuscular Volume 89 FL (80-99) Mean Corpuscular Hemoglobin 30.7 PG (27.0-31.0) Mean Corpuscular Hemoglobin Concent 34.7 G/DL (32.0-36.0) Red Cell Distribution Width 17.5 % (11.6-14.8) H Platelet Count 152 K/UL (150-450) Mean Platelet Volume 9.0 FL (6.5-10.1) Neutrophils (%) (Auto) 74.7 % (45.0-75.0) Lymphocytes (%) (Auto) 16.0 % (20.0-45.0) L Monocytes (%) (Auto) 7.5 % (1.0-10.0) Eosinophils (%) (Auto) 0.9 % (0.0-3.0) Basophils (%) (Auto) 0.9 % (0.0-2.0) Activated Partial Thromboplast Time > 150 SEC (23-33) *H > 150 SEC (23-33) *H Sodium Level 144 MMOL/L (136-145) Potassium Level 3.0 MMOL/L (3.5-5.1) L Chloride Level 113 MMOL/L (98-107) H Carbon Dioxide Level 17 MMOL/L (21-32) L Anion Gap 14 mmol/L (5-15) Blood Urea Nitrogen 46 mg/dL (7-18) H Creatinine 5.7 MG/DL (0.55-1.30) H Estimat Glomerular Filtration Rate 8.8 mL/min (>60) Glucose Level 263 MG/DL (74-106) H Calcium Level 6.8 MG/DL (8.5-10.1) L Phosphorus Level 3.7 MG/DL (2.5-4.9) Magnesium Level 1.5 MG/DL (1.8-2.4) L Total Bilirubin 0.3 MG/DL (0.2-1.0) Aspartate Amino Transf (AST/SGOT) 20 U/L (15-37) Alanine Aminotransferase (ALT/SGPT) 17 U/L (12-78) Alkaline Phosphatase 107 U/L (46-116) Total Protein 5.1 G/DL (6.4-8.2) L Albumin 1.3 G/DL (3.4-5.0) L Globulin 3.8 g/dL Albumin/Globulin Ratio 0.3 (1.0-2.7) L Plan Problems: (1) UTI (urinary tract infection) (2) JYOTI (acute kidney injury) (3) Hyperkalemia (4) Leukocytosis Assessment & Plan: dvt upper extremity picc related remove picc once temp line in anticoag as per heme (5) Sepsis (6) Altered mental status (7) Sacral decubitus ulcer Assessment & Plan: 69-year-old female multiple comorbidities presented with failure to thrive lethargic altered mental status noted to have abnormal labs and have draining bilateral heel unstageable decubitus ulcers multiple skin lesions on the lower extremities as well as a sacral decubitus ulcer as well. Imaging reviewed. Patient has been eating less recently but currently is eating at the bedside though does not look like she is taking much in. Treatment plan Turn every 2 hours Offload pressure with pillows pillow on side as necessary as well as underneath calf to elevate heels Air soft mattress nutritional optimization continue IV antibiotics per infectious disease SACRUM- STAGE - UNSTAGEABLE PRESSURE ULCER MEASURES 6.0X13.0X0.2. WOUND BED WITH 80% SLOUGH AND 20% PINK GRANULATION TISSUE. NOTED FOUL ODOR RECOMMEND-CLEAN WITH SALINE. APPLY WET TO DRY DRESSINGS WITH DAKINS 0.25% DAKIN'S SOLUTION.COVER WITH OPTIFOAM DRESSING. REPLACE DRESSING DAILY. LEFT ISCHIUM-STAGE II PRESSURE ULCER MEASURES 4.5X0.5X0.2CM. PINK GRANULATION TISSUE NOTED. RECOMMEND- CLEAN WITH SALINE, PAT DRY. APPLY CALAZINE AND COVER WITH OPTIFOAM DRESSING. LEFT ANTERIOR LOW LEG-VENOUS ULCER MEASURES 8.0X2.6X0.2CM 100% YELLOW SLOUGH NOTED TO WOUND BED. RECOMMEND- CLEAN WITH SALINE, PA DRY. APPLY THERAHONEY. COVER WITH GAUZE AND SECURE WITH KERLIX. REPLACE DRESSING DAILY. LEFT HEEL- UNSTAGEABLE PRESSURE ULCER MEASURES 9.5X8.0X0.3CM. 100% MOIST BLACK ESCHAR. WITH STRONG FOUL ODOR. RECOMMEND- CLEAN WITH SALINE. APPLY WET TO DRY DRESSINGS WITH DAKINS 0.25% DAKIN'S SOLUTION. COVER WITH GAUZE, ABD PAD AND SECURE WITH KERLIX. REPLACE DAILY. RIGHT ANTERIOR LOW LEG-VENOUS ULCER MEASURES 2.5X3.0X0.2CM WITH PINK GRANULATION TISSUE. RIGHT ANTERIOR DISTAL LOW LEG -VENOUS ULCER MEASURES 1.5X0.2X0.1CM WITH PINK GRANULATION TISSUE. RECOMMEND-CLEAN WITH SALINE PAT DRY. APPLY XEROFORM GAUZE, GAUZE AND COVER WITH KERLIX. REPLACE DAILY RIGHT HEEL-DTI MEASURES 2.5X3.0CM. AREA DARK PURPLE IN COLOR AND BOGGY TO TOUCH. NO DRAINAGE NOTED. RECOMMEND- PAINT WITH CAVILON SKIN PROTECTOR, GAUZE AND WRAP WITH KERLIX. REPLA CE DAILY. We will follow with recommendations thank you for letting participate patient's care Fairly numerous bubbles of soft tissue gas are seen within the subcutaneous fat and possibly the intrinsic musculature of the plantar surface of the heel. There is high STIR and decreased T1 signal within the calcaneus, and there is indistinctness of the inferior and posterior cortical margins of the calcaneus. There is some soft tissue ulceration of the plantar surface of the heel, as well as marked thinning of the subcutaneous fat overlying the calcaneal tuberosity. There is considerable edema of the plantar surface subcutaneous fat. There is also edema of the subcutaneous fat of the lateral and medial ankle. No focal discrete fluid collection to suggest drainable abscess demonstrated. Impression: Evidence of ulceration overlying the calcaneal tuberosity Soft tissue gas within the heel, as described. This may represent penetration the above, but is worrisome for infection with a gas-forming organism Abnormal signal within the posterior and mid calcaneus, highly suspicious for acute osteomyelitis (8) Decubitus ulcer of heel (9) Diabetes mellitus out of control (10) Acute on chronic renal failure (11) NSTEMI (non-ST elevated myocardial infarction) (12) High anion gap metabolic acidosis Joseph Alamo May 04, 2020 12:00
--- NOTE | 2020-05-04 13:01 | NUR ---
Speech Pathology Note (Bedside Dysphagia Evaluation) Brief note: Ms. Barroso is a 69 year old female admitted from [facility] facility on 05/01/2020 for evaluation of JYOTI. Pt reportedly had refused medication and PO diet at half-way home. She was recently hospitalized here from 03/31/2020 through 04/12/2020 for AMS c.w osteomyelitis. Finding: Ms. Barroso refused to take PO at this time. Pt appeared to have functional swallow but difficult to evaluate due to pt's refusal for exam. Interpretation: 1. Refusal for PO -failure to thrive 2. Probable functional swallow Plan: 1. Pureed and thin liquid for now -may need G tube for nutrition/hydration and medication Celso Stewart
[2020-05-04 16:00] VITALS: BP 114/54
--- NOTE | 2020-05-04 16:10 | NUR ---
CASE MANAGEMENT:REVIEW SI;JYOTI. UTI. DVT. 99.0 92 18 141/67 95% ON RA WBC 13.4 K+ 3.0 CL 113 BUN 46 CR 5.7 BG 291 CA 6.8 MAG 1.5 ALB 1.3 IS;HEPARIN GTT IV DIFLUCAN PO QD FLAGYL IV Q8 NaHCO3/NS IV DOXYCYCLINE IV Q12 CEFEPIME IV QD NaHCO3 PO TID MED SURG STATUS DCP;FROM [facility]
--- NOTE | 2020-05-04 16:58 | NUR ---
NURSE NOTES: WOUND CARE NOTES:Pt presented on admission with multiple Pressure injuries.. Full thickness Sacral Pressure Injury (L)9cm x (W)14 cm. Base of wound is 75% mixed necrosis and slough,25% john. Small amt brown exudate. Mild odor noted. Additional non-blanchable erythema periwound. No changes in skin temp periwound. Haemosiderin deposits Bilat lower extremities.Clusters of small open blisters kiarra R tibia. No exudate noted. Necrotic ulcer posterior R tibia (L)3cm x (W)2cm. Base of wound is 100% necrotic. Edges adherent to base of wound. Surrounding haemosiderin. Reabsorbing DTPI R Heel(L)4cm x (W)4cm.Base of wound is brown and fluctuant.No evidence of skin breakdown periwound. Clusters of intact and open blisters kiarra L tibia.NO exudate noted. Full thickness Pressure Injury L Heel(L)9.5cm x (W)7cm.Base of wound is 100% necrotic with detached borders which are erythematous and macerated. Wound is malodorous. Periwound is erythematous. Full Thickness Ulcer lateral L Foot(L)2.2cm x (W)0.9cm x (D)0.6cm . Base of wound is john and moist. Edges are macerated. Periwound is black without fluctuance or erythema. Tx. Plan:Cleanse Sacral wound with Dakin's Elvie 0.125%.apply Dakin's moist 4x4 gauze. Apply Moisture Barrier periwound. Cover with Optifoam drsg Daily and prn. Cleanse wounds Lateral L foot and L Heel with Dakin's Elvie.0.125%. Apply Dakin's moistened Gauze to each wound. Apply Moisture Barrier Paste periwound. Cover with ABD Pad wrap with Kerlix Daily and prn. Apply Betadine to POsterior R Tibia and R Heel. Cover each wound with Optifoam drsg every 3 days and prn. Apply Phytoplex Skin Nourishing lotion Bilat lower extremity Daily. Reposition at least every 2hours or as tolerated. Off-load heels with Pillow. APM/SAFIA Mattress.
[2020-05-04] MEDS: Cefepime HCl 2 GM in D5W 55 ML IVPB SCH (17:28)
--- NOTE | 2020-05-04 17:52 | General Progress Note ---
Subjective Date patient seen: May 04, 2020 ROS Limited/Unobtainable: Yes Allergies: Coded Allergies: PENICILLINS (Verified Allergy, Unknown, 12/05/17) Subjective No acute events overnight per nursing. Patient still encephalopathic, not able to open eyes or verbalize today. Wound care team treating patient during exam. Unable to obtain ROS due to ALOC Objective Last 24 Hour Vital Signs Date Time Temp Pulse Resp B/P (MAP) Pulse Ox O2 Delivery O2 Flow Rate FiO2 05/04/20 16:00 97.7 92 18 114/54 (74) 99 05/04/20 12:00 98.6 69 18 104/65 (78) 96 05/04/20 09:00 Room Air 05/04/20 08:00 98.9 87 17 141/67 (91) 96 05/04/20 04:00 97.4 80 18 115/57 (76) 97 05/04/20 00:00 99.0 92 18 128/60 (82) 95 05/03/20 21:00 Room Air 05/03/20 20:00 98.6 99 18 134/59 (84) 96 Intake and Output 05/03/20 05/04/20 19:00 07:00 Intake Total 883.596 ml Output Total 200 ml Balance -200 ml 883.596 ml Intake IV Total 883.596 ml Output Urine Total 200 ml # Voids 1 # Bowel Movements 1 Laboratory Tests 05/03/20 18:05: POC Whole Blood Glucose 292H 05/03/20 21:58: POC Whole Blood Glucose 317H 05/03/20 23:44: POC Whole Blood Glucose [Pending] 05/04/20 02:23: White Blood Count 13.4H, Red Blood Count 3.30L, Hemoglobin 10.1L, Hematocrit 29.2L, Mean Corpuscular Volume 89, Mean Corpuscular Hemoglobin 30.7, Mean C orpuscular Hemoglobin Concent 34.7, Red Cell Distribution Width 17.5H, Platelet Count 152, Mean Platelet Volume 9.0, Neutrophils (%) (Auto) 74.7, Lymphocytes (%) (Auto) 16.0L, Monocytes (%) (Auto) 7.5, Eosinophils (%) (Auto) 0.9, Basophils (%) (Auto) 0.9, Activated Partial Thromboplast Time > 150*H, Sodium Level 144, Potassium Level 3.0L, Chloride Level 113H, Carbon Dioxide Level 17L, Anion Gap 14, Blood Urea Nitrogen 46H, Creatinine 5.7H, Estimat Glomerular Filtration Rate 8.8, Glucose Level 263H, Calcium Level 6.8L, Phosphorus Level 3.7, Magnesium Level 1.5L, Total Bilirubin 0.3, Aspartate Amino Transf (AST/SGOT) 20, Alanine Aminotransferase (ALT/SGPT) 17, Alkaline Phosphatase 107, Total Protein 5.1L, Albumin 1.3L, Globulin 3.8, Albumin/Globulin Ratio 0.3L 05/04/20 05:21: POC Whole Blood Glucose 276H 05/04/20 10:18: Activated Partial Thromboplast Time > 150*H 05/04/20 12:18: POC Whole Blood Glucose 291H Height (Feet): 5 Height (Inches): 7.00 Weight (Pounds): 130 Objective General: WDWN female in NAD, A&O x 0 (baseline is A&o x 1), sleeping but arousable, not conversant, not following commands HEENT: Normocephalic cephalic atraumatic, pupils equal round reactive to light and accommodation, nares patent and no symmetrical, no tonsillar exudates, mucous membranes moist CV: Regular rate regular rhythm, no murmurs, rubs, or gallops Pulm: Lungs clear to auscultation bilaterally. No wheezes, rhonchi, or rales GI: Soft, nontender, nondistended, bowel sounds present Neuro: CN 2-12 intact bilaterally, no focal signs. Ext: No lower extremity edema bilaterally. LUE 1-2+ edema Skin: no rashes lesions or ulcers Msk: Joints symmetrical in upper extremity and lower extremity bilaterally, no joint swelling. Lymph: No lymphadenopathy in upper extremity and lower extremity CXR 05/04/2020 Technique: One view of the chest Comparison: 03/31/2020 Findings: Interim placement of a right jugular temporary dialysis catheter in satisfactory position. No pneumothorax. The lungs and pleural spaces are clear. The heart size is normal Impression: No acute process Assessment/Plan Assessment/Plan: This is a 69-year-old female presenting with acute encephalopathy, JYOTI, acute UTI. #Acute kidney injury, suspect possible Vanc toxicity vs. component of pre renal as well. FeNA elevated suggesting intrinsic process #Renal failure on HD #Hypokalemia #Hypomagnesemia > FeNA 3.8% suspect intrinsic -telemetry -Urine sodium, urine creatinine, urine eosinophils: reviewed -Renal ultrasound: no hydro, medical renal disease - Vargas catheter for strict I's and O's -Check vanc level: in 30s - IV fluids per nephro - HD per nephro, catheter in place per xray read -Avoid nephrotoxins -Trend creatinine -Appreciate nephro consult: Dr. Waterman -mario carey PRN - d/w Sister Elisha who is medical decision maker. Confirmed ok with HD (pending consent by Nephro) #Acute metabolic encephalopathy #Underlying dementia #Acute UTI #LLE osteomyelitis s/p debridement on 04/07/2020 with bone biopsy and cultures obtained. #Stage II sacral decubitus ulcer > CTH no acute abnormality >EKG reviewed -Blood cultures -Urine culture -Appreciate ID consult: Bola -Appreciate gen surgery consult: Jasmeet -Neurology consult: D/w Dr. Lee -Holding Vanc due to elevated Vanco level - Switch to doxycycline instead (04/07 - ) -Continue Cefepime (renally dosed). (04/07 - ) -Continue Flagyl (04/07 - ) -Continue Abx for 42 days -swallow eval: pending -check TSH: normal -check lactate: normal -trend troponin: normal #Acute LUE DVT, picc related - D/w Heme and surgery - remove PICC line - heparin GTT #DM2 -Hold lantus -hold metformin -SSI -accuchecks -hypoglycemia protocol #essential hypertension #hyperlipidemia -hold home amlodipine for now -hold benazepril -holding asa -holding statin FENPPX DVTPPX: HSQ Fluids: as above Diet: NPO pending swallow eval Lines: PIV, LUE PICC PT/OT: pending Code status: Full per SNF Dispo: back to SNF Reason for Continued Hospitalization: jyoti/renal failure, AMS MIPS ([employer]-based Incentive Payment System) Applicable CPT: 90223, 43558 CHECK ALL THAT ARE MET: [] Measure #5 (CHF): All ages. Prescribe DESTINEY/ARB upon discharge for patients with left ventricular systolic dysfunction. If not, the reason is clearly documented in the medical chart [] Measure #8 (CHF): All ages. Prescribe a beta jennifer upon discharge for patients with left ventricular systolic dysfunction. If not, the reason is clearly documented in the medical chart. [] Measure #47: Advance care plan or surrogate decision maker documented in the medical record. [x] Measure #130 The provider has documented, updated, or reviewed the patients current medication list and has documented it in the patients note. [x] Measure #374 (All): Send report to referring provider. [] Measure #407(Sepsis due to MSSA bacteremia): Age 18+ Patient treated with a beta-lactam antibiotic (Nafcillin, Oxacillin or Cefazolin) as definitive therapy. MEDICAL COMPLEXITYHigh complexity medical decision making (need 2/3 categories)Problem - need 4 points [x]Acute/new problem with new plan for workup (4 points, 1 max) [] Acute/new problem without additional workup (3 points, 1 max) [x] Unstable chronic problem actively being managed (2 point each, 2 max) [x] Stable chronic problem actively being managed (1 point each, 2 max) [x] Self-limited/transient process (constipation, muscle ache, etc) (1 point each, 2 max) Data - need 4 points [x] Reviewed labs/imaging studies (1 points, 2 max) [x] Independent review of imaging (EKG, xrays, etc) (2 points, 2 max) [x] Discussed case with consult/other MD/RN (2 points, 2 max) High Risk - qualify if have one of the following: [x] Severe exacerbation of acute problem, acute mental status change, IV narcotics, monitoring drug levels (vancomycin, INR, tacrolimus etc) I spent 37 minutes on this patient's case, and 20 mins was dedicated to counseling and/or care coordination. Discussed with nephro, ID, gen surgery, neurology. Time of note may not reflect time of encounter Carlton Story M.D. May 04, 2020 17:52
--- NOTE | 2020-05-04 18:33 | Nephrology Progress Note ---
Assessment/Plan Plan #JYOTI - concerns for vancomycin nephrotoxicity- r/o ATN- baseline Cr 0.8- also with volume depletion # osteomyelitis of LLE- on vanco, cefepime and flagyl #AMS #diabetes # hypertension, #hyperlipidemia # dementia. - BUN /cr rising discussed with daughter farzana with HD plan for [facility] placement - renal US with no acute findings - check UTP/cr - check urine easo - avoid vanco for now - monitor renal output time spent 65min Subjective ROS Limited/Unobtainable: Yes Subjective BUN /cr rising discussed with daughter farzana with HD plan for [facility] placement Objective Objective Last 24 Hour Vital Signs Date Time Temp Pulse Resp B/P (MAP) Pulse Ox O2 Delivery O2 Flow Rate FiO2 05/04/20 16:00 97.7 92 18 114/54 (74) 99 05/04/20 12:00 98.6 69 18 104/65 (78) 96 05/04/20 09:00 Room Air 05/04/20 08:00 98.9 87 17 141/67 (91) 96 05/04/20 04:00 97.4 80 18 115/57 (76) 97 05/04/20 00:00 99.0 92 18 128/60 (82) 95 05/03/20 21:00 Room Air 05/03/20 20:00 98.6 99 18 134/59 (84) 96 Intake and Output 05/03/20 05/04/20 19:00 07:00 Intake Total 883.596 ml Output Total 200 ml Balance -200 ml 883.596 ml Intake IV Total 883.596 ml Output Urine Total 200 ml # Voids 1 # Bowel Movements 1 Laboratory Tests 05/03/20 21:58: POC Whole Blood Glucose 317H 05/03/20 23:44: POC Whole Blood Glucose [Pending] 05/04/20 02:23: White Blood Count 13.4H, Red Blood Count 3.30L, Hemoglobin 10.1L, Hematocrit 29.2L, Mean Corpuscular Volume 89, Mean Corpuscular Hemoglobin 30.7, Mean Corpuscular Hemoglobin Concent 34.7, Red Cell Distribution Width 17.5H, Platelet Count 152, Mean Platelet Volume 9.0, Neutrophils (%) (Auto) 74.7, Lymphocytes (%) (Auto) 16.0L, Monocytes (%) (Auto) 7.5, Eosinophils (%) (Auto) 0.9, Basophils (%) (Auto) 0.9, Activated Partial Thromboplast Time > 150*H, Sodium Level 144, Potassium Level 3.0L, Chloride Level 113H, Carbon Dioxide Level 17L, Anion Gap 14, Blood Urea Nitrogen 46H, Creatinine 5.7H, Estimat Glomerular Filtration Rate 8.8, Glucose Level 263H, Calcium Level 6.8L, Phosphorus Level 3.7, Magnesium Level 1.5L, Total Bilirubin 0.3, Aspartate Amino Transf (AST/SGOT) 20, Alanine Aminotransferase (ALT/SGPT) 17, Alkaline Phosphatase 107, Total Protein 5.1L, Albumin 1.3L, Globulin 3.8, Albumin/Globulin Ratio 0.3L 05/04/20 05:21: POC Whole Blood Glucose 276H 05/04/20 10:18: Activated Partial Thromboplast Time > 150*H 05/04/20 12:18: POC Whole Blood Glucose 291H 05/04/20 18:24: POC Whole Blood Glucose 388H Height (Feet): 5 Height (Inches): 7.00 Weight (Pounds): 130 Niko Waterman M.D. May 04, 2020 18:33
--- NOTE | 2020-05-04 19:36 | NUR ---
NURSE HAND-OFF: Important Events on Shift:Heparin drip Patient Status: stable Diet: NPO Pending Orders: n/a Pending Results/Labs:n/a Pending MD notification:n/a Latest Vital Signs: Temperature 97.7 , Pulse 92 , B/P 114 /54 , Respiratory Rate 18 , O2 SAT 99 , Room Air, O2 Flow Rate . Vital Sign Comment: stable Latest Hernandez Fall Score: 50 Fall Risk: High Risk Safety Measures: Call light Within Reach, Bed Alarm Zone 2, Side Rails Side Rails x3, Bed position Low and Locked. Fall Precautions: Yellow Socks Yellow Gown Report given to ZACH Ny.
--- NOTE | 2020-05-04 19:37 | NUR ---
NURSE NOTES: Received patient in bed. A&OX0, non verbal. IV site patent and intact. Right Doyle cath noted, patent and intact. On Heparin drip. Vargas cath noted. Bed in lowest position. Call light within reach. Will continue to monitor.
[2020-05-04 20:00] VITALS: BP 127/66
--- NOTE | 2020-05-04 20:12 | NUR ---
NURSE NOTES: Received PTT result which is greater than 150. Hold for 1hr.
[2020-05-04] MEDS: Dyna-Hex 2% Top Sol 2oz TOPIC SCH (21:20)
--- NOTE | 2020-05-04 22:13 | Neurology Progress Note ---
Interim History Interim History ROS Limited/Unobtainable: Yes Interim History confused no new deficits Objective Physical Exam Last Vital Signs Date Time Temp Pulse Resp B/P (MAP) Pulse Ox O2 Delivery O2 Flow Rate FiO2 05/04/20 20:00 97.7 92 22 127/66 (86) 98 05/04/20 09:00 Room Air Laboratory Tests Test 05/03/20 23:44 05/04/20 02:23 05/04/20 05:21 05/04/20 10:18 POC Whole Blood Glucose Pending 276 MG/DL (74-106) H White Blood Count 13.4 K/UL (4.8-10.8) H Red Blood Count 3.30 M/UL (4.20-5.40) L Hemoglobin 10.1 G/DL (12.0-16.0) L Hematocrit 29.2 % (37.0-47.0) L Mean Corpuscular Volume 89 FL (80-99) Mean Corpuscular Hemoglobin 30.7 PG (27.0-31.0) Mean Corpuscular Hemoglobin Concent 34.7 G/DL (32.0-36.0) Red Cell Distribution Width 17.5 % (11.6-14.8) H Platelet Count 152 K/UL (150-450) Mean Platelet Volume 9.0 FL (6.5-10.1) Neutrophils (%) (Auto) 74.7 % (45.0-75.0) Lymphocytes (%) (Auto) 16.0 % (20.0-45.0) L Monocytes (%) (Auto) 7.5 % (1.0-10.0) Eosinophils (%) (Auto) 0.9 % (0.0-3.0) Basophils (%) (Auto) 0.9 % (0.0-2.0) Activated Partial Thromboplast Time > 150 SEC (23-33) *H > 150 SEC (23-33) *H Sodium Level 144 MMOL/L (136-145) Potassium Level 3.0 MMOL/L (3.5-5.1) L Chloride Level 113 MMOL/L (98-107) H Carbon Dioxide Level 17 MMOL/L (21-32) L Anion Gap 14 mmol/L (5-15) Blood Urea Nitrogen 46 mg/dL (7-18) H Creatinine 5.7 MG/DL (0.55-1.30) H Estimat Glomerular Filtration Rate 8.8 mL/min (>60) Glucose Level 263 MG/DL (74-106) H Calcium Level 6.8 MG/DL (8.5-10.1) L Phosphorus Level 3.7 MG/DL (2.5-4.9) Magnesium Level 1.5 MG/DL (1.8-2.4) L Total Bilirubin 0.3 MG/DL (0.2-1.0) Aspartate Amino Transf (AST/SGOT) 20 U/L (15-37) Alanine Aminotransferase (ALT/SGPT) 17 U/L (12-78) Alkaline Phosphatase 107 U/L (46-116) Total Protein 5.1 G/DL (6.4-8.2) L Albumin 1.3 G/DL (3.4-5.0) L Globulin 3.8 g/dL Albumin/Globulin Ratio 0.3 (1.0-2.7) L Test 05/04/20 12:18 05/04/20 18:24 05/04/20 18:55 POC Whole Blood Glucose 291 MG/DL (74-106) H 388 MG/DL (74-106) H Activated Partial Thromboplast Time > 150 SEC (23-33) *H Impression/Recommendations Problems: (1) Sepsis (2) Hyperkalemia (3) Leukocytosis (4) Altered mental status (5) Diabetes mellitus out of control (6) Acute on chronic renal failure (7) NSTEMI (non-ST elevated myocardial infarction) (8) High anion gap metabolic acidosis (9) Sacral decubitus ulcer (10) Decubitus ulcer of heel (11) UTI (urinary tract infection) (12) JYOTI (acute kidney injury) Diagnostic Impression acute metabolic encephalopathy jyoti sepsis baseline dementia cont ivfs delirium precautions no need for mri brain cont Thee Burden MD May 04, 2020 22:13
[2020-05-05] VITALS: BP 125/56
[2020-05-05] MEDS: NovoLOG Insulin Flexpen SUBQ SCH ×5 (00:26→23:53)
[2020-05-05 03:36] LABS: HEMATOCRIT 20.5 % (37.0-47.0); MEAN CORPUSCULAR VOLUME 87 FL (80-99); PLATELET COUNT 109 K/UL (150-450); RED BLOOD COUNT 2.35 M/UL (4.20-5.40); RED CELL DISTRIBUTION WIDTH 17.5 % (11.6-14.8); WHITE BLOOD COUNT 14.4 K/UL (4.8-10.8)
[2020-05-05 03:47] LABS: CALCIUM 6.8 MG/DL (8.5-10.1); CREATININE 6.1 MG/DL (0.55-1.30); POTASSIUM 3.2 MMOL/L (3.5-5.1)
[2020-05-05 03:49] LABS: PHOSPHORUS 3.6 MG/DL (2.5-4.9)
[2020-05-05 04:00] VITALS: BP 119/63
[2020-05-05 04:07] LABS: HEMOGLOBIN 7.3 G/DL (12.0-16.0)
--- NOTE | 2020-05-05 04:14 | NUR ---
NURSE NOTES: Received PTT result which is greater than 150. Hold for 1hr.
[2020-05-05] MEDS: Sodium Bicarbonate 50 ML in 1/2 NS 1000ml 1,000 ML IV SCH (05:28)
[2020-05-05] MEDS ORDERED: Heparin 25,000u/D5W 500ml 500 ML IV SCH (05:30)
--- NOTE | 2020-05-05 06:00 | NUR ---
NURSE NOTES: Urine output was 5cc. Bladder scan shows 14cc.
--- NOTE | 2020-05-05 06:46 | Hematology/Onc Progress Note ---
Assessment/Plan Assessment/Plan Assessment and Recs # Left upper extremity axillary, subclavian, and brachial venous thrombosis --> heparin gtt was started --> consider eliquis or coumadin once closer to dc --> patient does have eleno/ckd, thus agent needed not affected by renal function --> monitor for bleed # Leukocytosis likely secondary to left heel and foot osteomyelitis. --> likely due to infected wounds, heel ulcerations --> ABX flucon/flagyl/cefepime --> Peripheral smear, reviewed, hold off flow for now --> elev inflammatory markers --> WBC 35-->22-->18-->14-->13-->11.4->>>13 # Anemia due to underlying chronic disease. --> Continue to closely monitor for improvement. --> Anemia w/u has been reviewed. Will trend cbc daily. --> Hgb goal >7 -> hgb 12-->10.7->9.4-->9.5->10-->7.3 --> anemia panel reviewed before # Hyperkalemia. Given Kayexalate. --> Improved # Diabetic ketoacidosis. --> per before, improved # ESRD --> hd with line inserted # Shortness of breath in past with dka # Dvt ppx --> hep gtt The time the note was entered does not necessarily correspond to the time the patient was seen. Subjective Constitutional: Denies: no symptoms, chills, fever, malaise, weakness, other HEENT: Denies: no symptoms, eye pain, blurred vision, tearing, double vision, ear pain, ear discharge, nose pain, nose congestion, throat pain, throat swelling, mouth pain, mouth swelling, other Cardiovascular: Denies: no symptoms, chest pain, edema, irregular heart rate, lightheadedness, palpitations, syncope, other Respiratory: Denies: no symptoms, cough, shortness of breath, SOB with excertion, SOB at rest, sputum, wheezing, other Genitourinary: Denies: no symptoms, burning, discharge, frequency, flank pain, hematuria, incontinence, pain, urgency, other Neurologic/Psychiatric: Denies: no symptoms, anxiety, depressed, emotional problems, headache, numbness, paresthesia, pre-existing deficit, seizure, tingling, tremors, weakness, other Endocrine: Denies: no symptoms, excessive sweating, flushing, intolerance to cold, intolerance to heat, increased hunger, increased thirst, increased urine, unexplained weight gain, unexplained weight loss, other Hematologic/Lymphatic: Denies: no symptoms, anemia, easy bleeding, easy bruising, adenopathy, other Allergies: Coded Allergies: PENICILLINS (Verified Allergy, Unknown, 12/05/17) Subjective 05/05 hgb 7.3 this am, plts lower, no bleeding, ptt elev, will hold off hep gtt Objective Objective Current Medications Medications (Trade) Dose Ordered Sig/Enrike Route PRN Reason Start Time Stop Time Status Last Admin Dose Admin Bisacodyl (Dulcolax) 10 mg DAILYPRN PRN RECTAL Constipation 05/01/20 20:30 07/30/20 20:29 Cefepime HCl 2 gm/ Dextrose 55 ml @ 110 mls/hr Q24H IVPB 05/02/20 18:00 05/09/20 17:59 05/04/20 17:28 Chlorhexidine Gluconate (Holli-Hex 2%) 1 applic 2XW TOPIC 05/06/20 09:00 08/04/20 08:59 Chlorhexidine Gluconate (Holli-Hex 2%) 1 applic DAILY@1999 TOPIC 05/02/20 20:00 07/31/20 19:59 05/04/20 21:20 Dextrose (Dextrose 50%) 25 ml Q30M PRN IV Hypoglycemia 05/01/20 20:30 07/30/20 20:29 Dextrose (Dextrose 50%) 50 ml Q30M PRN IV Hypoglycemia 05/01/20 20:30 07/30/20 20:29 Doxycycline Hyclate 100 mg/ Dextrose 110 ml @ 110 mls/hr Q12HR IV 05/02/20 21:00 05/09/20 20:59 05/04/20 21:20 Fluconazole (Diflucan) 100 mg DAILY ORAL 05/04/20 09:00 05/11/20 08:59 05/04/20 09:13 Heparin Sodium/ Dextrose 500 ml @ 2.359 mls/ hr ADJUST PER PROTOCOL IV 05/05/20 05:30 06/04/20 05:29 05/05/20 05:23 Insulin Aspart (NovoLOG) Q6HR SUBQ 05/03/20 00:00 08/01/20 00:00 05/05/20 06:26 Lorazepam (Ativan 2mg/ml 1ml) 0.5 mg Q4H PRN IV For Anxiety 05/01/20 20:30 05/08/20 20:29 Metronidazole 100 ml @ 100 mls/hr Q8H IVPB 05/04/20 00:00 05/11/20 00:00 05/05/20 00:25 Ondansetron HCl (Zofran) 4 mg Q6H PRN IVP Nausea & Vomiting 05/01/20 20:30 05/31/20 20:29 Sodium Bicarbonate 50 ml/ Sodium Chloride 1,050 ml @ 75 mls/hr Q14H IV 05/03/20 12:00 06/02/20 11:59 05/05/20 05:28 Sodium Hypochlorite (Dakin's Quarter Strength) 1 applic DAILY TOPIC 05/05/20 09:00 06/04/20 08:59 Sodium Bicarbonate (NaHCO3) 650 mg THREE TIMES A DAY ORAL 05/02/20 18:00 06/01/20 17:59 05/04/20 09:13 Last 24 Hour Vital Signs Date Time Temp Pulse Resp B/P (MAP) Pulse Ox O2 Delivery O2 Flow Rate FiO2 05/05/20 04:00 96.8 93 20 119/63 (81) 94 05/05/20 00:00 97.4 96 20 125/56 (79) 94 05/04/20 21:00 Room Air 05/04/20 20:00 97.7 92 22 127/66 (86) 98 05/04/20 16:00 97.7 92 18 114/54 (74) 99 05/04/20 12:00 98.6 69 18 104/65 (78) 96 05/04/20 09:00 Room Air 05/04/20 08:00 98.9 87 17 141/67 (91) 96 05/04/20 04:00 97.4 80 18 115/57 (76) 97 05/04/20 00:00 99.0 92 18 128/60 (82) 95 05/03/20 21:00 Room Air 05/03/20 20:00 98.6 99 18 134/59 (84) 96 05/03/20 17:30 86 22 114/53 (73) 100 12/21/20 17:25 89 22 124/54 (77) 100 05/03/20 17:18 87 20 05/03/20 16:00 98.0 83 18 120/54 (76) 98 05/03/20 12:00 98.4 94 18 125/68 (87) 98 05/03/20 09:00 97.8 100 18 122/64 (83) 98 05/03/20 06:57 Room Air Intake and Output 05/04/20 05/05/20 19:00 07:00 Intake Total 885.758 ml 810 ml Output Total 2 ml Balance 883.758 ml 810 ml Intake IV Total 885.758 ml 810 ml Output Urine Total 2 ml Labs Test 05/02/20 07:08 05/02/20 11:55 05/02/20 12:55 05/02/20 15:00 White Blood Count 9.9 K/UL (4.8-10.8) Red Blood Count 3.77 M/UL (4.20-5.40) Hemoglobin 11.7 G/DL (12.0-16.0) Hematocrit 34.2 % (37.0-47.0) Mean Corpuscular Volume 91 FL (80-99) Mean Corpuscular Hemoglobin 31.0 PG (27.0-31.0) Mean Corpuscular Hemoglobin Concent 34.2 G/DL (32.0-36.0) Red Cell Distribution Width 17.7 % (11.6-14.8) Platelet Count 205 K/UL (150-450) Mean Platelet Volume 8.9 FL (6.5-10.1) Neutrophils (%) (Auto) 82.9 % (45.0-75.0) Lymphocytes (%) (Auto) 10.4 % (20.0-45.0) Monocytes (%) (Auto) 5.6 % (1.0-10.0) Eosinophils (%) (Auto) 0.2 % (0.0-3.0) Basophils (%) (Auto) 0.9 % (0.0-2.0) Sodium Level 144 MMOL/L (136-145) Potassium Level 4.0 MMOL/L (3.5-5.1) Chloride Level 110 MMOL/L (98-107) Carbon Dioxide Level 11 MMOL/L (21-32) Anion Gap 24 mmol/L (5-15) Blood Urea Nitrogen 39 mg/dL (7-18) Creatinine 4.4 MG/DL (0.55-1.30) Estimat Glomerular Filtration Rate 12.0 mL/min (>60) Glucose Level 316 MG/DL (74-106) Calcium Level 7.0 MG/DL (8.5-10.1) Phosphorus Level 4.5 MG/DL (2.5-4.9) Magnesium Level 1.5 MG/DL (1.8-2.4) Total Bilirubin 0.4 MG/DL (0.2-1.0) Aspartate Amino Transf (AST/SGOT) 41 U/L (15-37) Alanine Aminotransferase (ALT/SGPT) 24 U/L (12-78) Alkaline Phosphatase 127 U/L (46-116) Troponin I 0.009 ng/mL (0.000-0.056) 0.019 ng/mL (0.000-0.056) Total Protein 5.6 G/DL (6.4-8.2) Albumin 1.4 G/DL (3.4-5.0) Globulin 4.2 g/dL Albumin/Globulin Ratio 0.3 (1.0-2.7) Random Vancomycin Level 31.5 ug/mL POC Whole Blood Glucose 291 MG/DL (74-106) Urine Eosinophils Few (NONE SEEN) Urine Random Total Protein 172 MG/DL (< 11.9) Urine Random Sodium 83 mmol/L (20-110) Urine Creatinine 67.0 MG/DL (30.0-125.0) Test 05/02/20 17:24 05/03/20 00:10 05/03/20 05:30 05/03/20 06:07 POC Whole Blood Glucose 294 MG/DL (74-106) 393 MG/DL (74-106) 302 MG/DL (74-106) White Blood Count 12.6 K/UL (4.8-10.8) Red Blood Count 3.52 M/UL (4.20-5.40) Hemoglobin 10.9 G/DL (12.0-16.0) Hematocrit 31.3 % (37.0-47.0) Mean Corpuscular Volume 89 FL (80-99) Mean Corpuscular Hemoglobin 31.0 PG (27.0-31.0) Mean Corpuscular Hemoglobin Concent 34.8 G/DL (32.0-36.0) Red Cell Distribution Width 18.0 % (11.6-14.8) Platelet Count 183 K/UL (150-450) Mean Platelet Volume 9.4 FL (6.5-10.1) Neutrophils (%) (Auto) 71.8 % (45.0-75.0) Lymphocytes (%) (Auto) 19.1 % (20.0-45.0) Monocytes (%) (Auto) 7.4 % (1.0-10.0) Eosinophils (%) (Auto) 0.8 % (0.0-3.0) Basophils (%) (Auto) 0.8 % (0.0-2.0) Test 05/03/20 08:45 05/03/20 12:35 05/03/20 14:05 05/03/20 18:05 Sodium Level 145 MMOL/L (136-145) Potassium Level 3.1 MMOL/L (3.5-5.1) Chloride Level 112 MMOL/L (98-107) Carbon Dioxide Level 16 MMOL/L (21-32) Anion Gap 17 mmol/L (5-15) Blood Urea Nitrogen 44 mg/dL (7-18) Creatinine 5.5 MG/DL (0.55-1.30) Estimat Glomerular Filtration Rate 9.3 mL/min (>60) Glucose Level 283 MG/DL (74-106) Calcium Level 7.0 MG/DL (8.5-10.1) Phosphorus Level 4.0 MG/DL (2.5-4.9) Magnesium Level 1.5 MG/DL (1.8-2.4) Random Vancomycin Level 30.7 ug/mL POC Whole Blood Glucose 277 MG/DL (74-106) 292 MG/DL (74-106) Activated Partial Thromboplast Time 34 SEC (23-33) Test 05/03/20 21:58 05/03/20 23:44 05/04/20 02:23 05/04/20 05:21 POC Whole Blood Glucose 317 MG/DL (74-106) 276 MG/DL (74-106) White Blood Count 13.4 K/UL (4.8-10.8) Red Blood Count 3.30 M/UL (4.20-5.40) Hemoglobin 10.1 G/DL (12.0-16.0) Hematocrit 29.2 % (37.0-47.0) Mean Corpuscular Volume 89 FL (80-99) Mean Corpuscular Hemoglobin 30.7 PG (27.0-31.0) Mean Corpuscular Hemoglobin Concent 34.7 G/DL (32.0-36.0) Red Cell Distribution Width 17.5 % (11.6-14.8) Platelet Count 152 K/UL (150-450) Mean Platelet Volume 9.0 FL (6.5-10.1) Neutrophils (%) (Auto) 74.7 % (45.0-75.0) Lymphocytes (%) (Auto) 16.0 % (20.0-45.0) Monocytes (%) (Auto) 7.5 % (1.0-10.0) Eosinophils (%) (Auto) 0.9 % (0.0-3.0) Basophils (%) (Auto) 0.9 % (0.0-2.0) Activated Partial Thromboplast Time > 150 SEC (23-33) Sodium Level 144 MMOL/L (136-145) Potassium Level 3.0 MMOL/L (3.5-5.1) Chloride Level 113 MMOL/L (98-107) Carbon Dioxide Level 17 MMOL/L (21-32) Anion Gap 14 mmol/L (5-15) Blood Urea Nitrogen 46 mg/dL (7-18) Creatinine 5.7 MG/DL (0.55-1.30) Estimat Glomerular Filtration Rate 8.8 mL/min (>60) Glucose Level 263 MG/DL (74-106) Calcium Level 6.8 MG/DL (8.5-10.1) Phosphorus Level 3.7 MG/DL (2.5-4.9) Magnesium Level 1.5 MG/DL (1.8-2.4) Total Bilirubin 0.3 MG/DL (0.2-1.0) Aspartate Amino Transf (AST/SGOT) 20 U/L (15-37) Alanine Aminotransferase (ALT/SGPT) 17 U/L (12-78) Alkaline Phosphatase 107 U/L (46-116) Total Protein 5.1 G/DL (6.4-8.2) Albumin 1.3 G/DL (3.4-5.0) Globulin 3.8 g/dL Albumin/Globulin Ratio 0.3 (1.0-2.7) Test 05/04/20 10:18 05/04/20 12:18 05/04/20 18:24 05/04/20 18:55 Activated Partial Thromboplast Time > 150 SEC (23-33) > 150 SEC (23-33) POC Whole Blood Glucose 291 MG/DL (74-106) 388 MG/DL (74-106) Test 05/05/20 00:21 05/05/20 03:25 05/05/20 06:21 POC Whole Blood Glucose 368 MG/DL (74-106) 298 MG/DL (74-106) White Blood Count 14.4 K/UL (4.8-10.8) Red Blood Count 2.35 M/UL (4.20-5.40) Hemoglobin 7.3 G/DL (12.0-16.0) Hematocrit 20.5 % (37.0-47.0) Mean Corpuscular Volume 87 FL (80-99) Mean Corpuscular Hemoglobin 31.0 PG (27.0-31.0) Mean Corpuscular Hemoglobin Concent 35.6 G/DL (32.0-36.0) Red Cell Distribution Width 17.5 % (11.6-14.8) Platelet Count 109 K/UL (150-450) Mean Platelet Volume 9.3 FL (6.5-10.1) Neutrophils (%) (Auto) % (45.0-75.0) Lymphocytes (%) (Auto) % (20.0-45.0) Monocytes (%) (Auto) % (1.0-10.0) Eosinophils (%) (Auto) % (0.0-3.0) Basophils (%) (Auto) % (0.0-2.0) Activated Partial Thromboplast Time > 150 SEC (23-33) Sodium Level 143 MMOL/L (136-145) Potassium Level 3.2 MMOL/L (3.5-5.1) Chloride Level 112 MMOL/L (98-107) Carbon Dioxide Level 17 MMOL/L (21-32) Anion Gap 14 mmol/L (5-15) Blood Urea Nitrogen 56 mg/dL (7-18) Creatinine 6.1 MG/DL (0.55-1.30) Estimat Glomerular Filtration Rate 8.2 mL/min (>60) Glucose Level 344 MG/DL (74-106) Calcium Level 6.8 MG/DL (8.5-10.1) Phosphorus Level 3.6 MG/DL (2.5-4.9) Magnesium Level 1.8 MG/DL (1.8-2.4) Height (Feet): 5 Height (Inches): 7.00 Weight (Pounds): 130 Objective Physical Exam Vitals: reviewed, normal General Appearance: no apparent distress, non-toxic, lethargic HEENT: bilateral eye normal inspection, bilateral eye PERRL Neck: full range of motion, supple/symm/no masses Resp: chest non-tender, lungs clear, normal breath sounds, speaking full sentences Cardiovascular: regular rate, rhythm, no edema Gastrointestinal: normal bowel sounds, non tender Rectal: deferred Genitourinary: normal inspection, no CVA tenderness Musculoskeletal: back normal, gait/station normal, non-tender Lymphatic: no adenopathy David De Jesus MD May 05, 2020 06:46
--- NOTE | 2020-05-05 07:45 | NUR ---
NURSE HAND-OFF: Important Events on Shift: Urine output 5cc, Bladder scan shows 14cc. Current Heparin drip rate 2units/kg/hr. next PTT 1130. Patient Status: Diet: NPO Pending Orders: Pending Results/Labs: Pending MD notification Latest Vital Signs: Temperature 96.8 , Pulse 93 , B/P 119 /63 , Respiratory Rate 20 , O2 SAT 94 , Room Air, O2 Flow Rate . Vital Sign Comment: Latest Hernandez Fall Score: 70 Fall Risk: High Risk Safety Measures: Call light Within Reach, Bed Alarm Zone 2, Side Rails Side Rails x3, Bed position Low and Locked. Fall Precautions: Yellow Socks Yellow Gown Report given to Sherry SERRANO.
--- NOTE | 2020-05-05 07:50 | NUR ---
NURSE NOTES: Received report from [facility]. Heparin drip is running @ 2u/kg/hr (2.35ml/hr). No SOB and bleeding noted. Will continue to monitor.
[2020-05-05 08:00] VITALS: BP 99/67
--- NOTE | 2020-05-05 08:18 | NUR ---
NURSE NOTES: Hgb 7.[address] De Jesus was notified. Dr. De Jesus ordered 1 unit of PRBC. Noted and carried out.
--- NOTE | 2020-05-05 08:20 | NUR ---
NURSE NOTES: Potassium 3.[address] Waterman was notified. ordered kcl 20meq IVPB one time. Noted and carried out.
[2020-05-05] MEDS: Sodium Bicarbonate 650mg Tab ORAL SCH ×3 (08:32→17:18)
[2020-05-05] MEDS: Fluconazole 100mg tab ORAL SCH ×2 (08:32→09:00)
--- NOTE | 2020-05-05 08:56 | Nephrology Progress Note ---
Assessment/Plan Plan #JYOTI - concerns for vancomycin nephrotoxicity- r/o ATN- baseline Cr 0.8- also with volume depletion # osteomyelitis of LLE- on vanco, cefepime and flagyl #AMS #diabetes # hypertension, #hyperlipidemia # dementia. - BUN /cr rising discussed with daughter ok with HD today - renal US with no acute findings - avoid vanco for now - monitor renal output time spent 65min Subjective Subjective BUN /cr rising discussed with daughter ok with HD today Objective Objective Last 24 Hour Vital Signs Date Time Temp Pulse Resp B/P (MAP) Pulse Ox O2 Delivery O2 Flow Rate FiO2 05/05/20 04:00 96.8 93 20 119/63 (81) 94 05/05/20 00:00 97.4 96 20 125/56 (79) 94 05/04/20 21:00 Room Air 05/04/20 20:00 97.7 92 22 127/66 (86) 98 05/04/20 16:00 97.7 92 18 114/54 (74) 99 05/04/20 12:00 98.6 69 18 104/65 (78) 96 05/04/20 09:00 Room Air Intake and Output 05/04/20 05/05/20 19:00 07:00 Intake Total 885.758 ml 885 ml Output Total 2 ml 5 ml Balance 883.758 ml 880 ml Intake IV Total 885.758 ml 885 ml Output Urine Total 2 ml 5 ml # Bowel Movements 1 Laboratory Tests 05/04/20 10:18: Activated Partial Thromboplast Time > 150*H 05/04/20 12:18: POC Whole Blood Glucose 291H 05/04/20 18:24: POC Whole Blood Glucose 388H 05/04/20 18:55: Activated Partial Thromboplast Time > 150*H 05/05/20 00:21: POC Whole Blood Glucose 368H 05/05/20 03:25: White Blood Count 14.4H, Red Blood Count 2.35L, Hemoglobin 7.3L, Hematocrit 20.5L, Mean Corpuscular Volume 87, Mean Corpuscular Hemoglobin 31.0, Mean Corpuscular Hemoglobin Concent 35.6, Red Cell Distribution Width 17.5H, Platelet Count 109L, Mean Platelet Volume 9.3, Neutrophils (%) (Auto) , Lymphocytes (%) (Auto) , Monocytes (%) (Auto) , Eosinophils (%) (Auto) , Basophils (%) (Auto) , Activated Partial Thromboplast Time > 150*H, Sodium Level 143, Potassium Level 3.2L, Chloride Level 112H, Carbon Dioxide Level 17L, Anion Gap 14, Blood Urea Nitrogen 56H, Creatinine 6.1H, Estimat Glomerular Filtration Rate 8.2, Glucose Level 344H, Calcium Level 6.8L, Ionized Calcium (Measured) 0.97L, Phosphorus Level 3.6, Magnesium Level 1.8 05/05/20 06:21: POC Whole Blood Glucose 298H Height (Feet): 5 Height (Inches): 7.00 Weight (Pounds): 130 Niko Waterman M.D. May 05, 2020 08:56
[2020-05-05] MEDS: Dakin's 0.125% Soln (Quarter Strength) 16oz TOPIC SCH (10:35)
[2020-05-05] MEDS: Doxycycline Hyclate 100 MG in D5W 110 ML IV SCH ×2 (10:35→20:36)
--- NOTE | 2020-05-05 11:00 | NUR ---
NURSE NOTES: Obtained consent for blood transfusion and hemodialysis. Verified with Peter Charge nurse and Brayd Wood RN. Addendum: 05/05/20 at 1407 by Angeli Lucas RN ADDENDUM Obtained consent from Elisha Sarkar (sister).
--- NOTE | 2020-05-05 11:57 | NUR ---
NURSE NOTES: BP 94/66, HR 84 and will get HD today. Notified to Dr. Waterman. said it is okay to have HD today. No new order.
[2020-05-05 12:00] VITALS: BP 94/66
--- NOTE | 2020-05-05 12:17 | Surgery Progress Note ---
Surgery Progress Note Subjective Additional Comments renal insufficiency worsening leukocytosis dressings okay no n/v line in place HD per renal Objective Last 24 Hour Vital Signs Date Time Temp Pulse Resp B/P (MAP) Pulse Ox O2 Delivery O2 Flow Rate FiO2 05/05/20 09:00 Room Air 05/05/20 08:00 96.8 85 20 99/67 (78) 98 05/05/20 04:00 96.8 93 20 119/63 (81) 94 05/05/20 00:00 97.4 96 20 125/56 (79) 94 05/04/20 21:00 Room Air 05/04/20 20:00 97.7 92 22 127/66 (86) 98 05/04/20 16:00 97.7 92 18 114/54 (74) 99 I&O Intake and Output 05/04/20 05/05/20 19:00 07:00 Intake Total 885.758 ml 885 ml Output Total 2 ml 5 ml Balance 883.758 ml 880 ml Intake IV Total 885.758 ml 885 ml Output Urine Total 2 ml 5 ml # Bowel Movements 1 Dressing: saturated Cardiovascular: RSR Respiratory: decreased breath sounds Abdomen: soft, non-tender, present bowel sounds, non-distended Extremities: edema, no tenderness, no cyanosis Laboratory Tests Test 05/04/20 12:18 05/04/20 18:24 05/04/20 18:55 05/05/20 00:21 POC Whole Blood Glucose 291 MG/DL (74-106) H 388 MG/DL (74-106) H 368 MG/DL (74-106) H Activated Partial Thromboplast Time > 150 SEC (23-33) *H Test 05/05/20 03:25 05/05/20 06:21 05/05/20 11:45 White Blood Count 14.4 K/UL (4.8-10.8) H Red Blood Count 2.35 M/UL (4.20-5.40) L Hemoglobin 7.3 G/DL (12.0-16.0) L Hematocrit 20.5 % (37.0-47.0) L Mean Corpuscular Volume 87 FL (80-99) Mean Corpuscular Hemoglobin 31.0 PG (27.0-31.0) Mean Corpuscular Hemoglobin Concent 35.6 G/DL (32.0-36.0) Red Cell Distribution Width 17.5 % (11.6-14.8) H Platelet Count 109 K/UL (150-450) L Mean Platelet Volume 9.3 FL (6.5-10.1) Neutrophils (%) (Auto) % (45.0-75.0) Lymphocytes (%) (Auto) % (20.0-45.0) Monocytes (%) (Auto) % (1.0-10.0) Eosinophils (%) (Auto) % (0.0-3.0) Basophils (%) (Auto) % (0.0-2.0) Activated Partial Thromboplast Time > 150 SEC (23-33) *H 46 SEC (23-33) H Sodium Level 143 MMOL/L (136-145) Potassium Level 3.2 MMOL/L (3.5-5.1) L Chloride Level 112 MMOL/L (98-107) H Carbon Dioxide Level 17 MMOL/L (21-32) L Anion Gap 14 mmol/L (5-15) Blood Urea Nitrogen 56 mg/dL (7-18) H Creatinine 6.1 MG/DL (0.55-1.30) H Estimat Glomerular Filtration Rate 8.2 mL/min (>60) Glucose Level 344 MG/DL (74-106) H Calcium Level 6.8 MG/DL (8.5-10.1) L Ionized Calcium (Measured) 0.97 mmol/L (1.10-1.35) L Phosphorus Level 3.6 MG/DL (2.5-4.9) Magnesium Level 1.8 MG/DL (1.8-2.4) POC Whole Blood Glucose 298 MG/DL (74-106) H Plan Problems: (1) UTI (urinary tract infection) (2) JYOTI (acute kidney injury) (3) Hyperkalemia (4) Leukocytosis Assessment & Plan: dvt upper extremity picc related remove picc once temp line in anticoag as per heme worsening leukocytosis on abx (5) Sepsis (6) Altered mental status (7) Sacral decubitus ulcer Assessment & Plan: 69-year-old female multiple comorbidities presented with failure to thrive lethargic altered mental status noted to have abnormal labs and have draining bilateral heel unstageable decubitus ulcers multiple skin lesions on the lower extremities as well as a sacral decubitus ulcer as well. Imaging reviewed. Patient has been eating less recently but currently is eating at the bedside though does not look like she is taking much in. Treatment plan Turn every 2 hours Offload pressure with pillows pillow on side as necessary as well as underneath calf to elevate heels Air soft mattress nutritional optimization continue IV antibiotics per infectious disease SACRUM- STAGE - UNSTAGEABLE PRESSURE ULCER MEASURES 6.0X13.0X0.2. WOUND BED WITH 80% SLOUGH AND 20% PINK GRANULATION TISSUE. NOTED FOUL ODOR RECOMMEND-CLEAN WITH SALINE. APPLY WET TO DRY DRESSINGS WITH DAKINS 0.25% DAKIN'S SOLUTION.COVER WITH OPTIFOAM DRESSING. REPLACE DRESSING DAILY. LEFT ISCHIUM-STAGE II PRESSURE ULCER MEASURES 4.5X0.5X0.2CM. PINK GRANULATION TISSUE NOTED. RECOMMEND- CLEAN WITH SALINE, PAT DRY. APPLY CALAZINE AND COVER WITH OPTIFOAM DRESSING. LEFT ANTERIOR LOW LEG-VENOUS ULCER MEASURES 8.0X2.6X0.2CM 100% YELLOW SLOUGH NOTED TO WOUND BED. RECOMMEND- CLEAN WITH SALINE, PA DRY. APPLY THERAHONEY. COVER WITH GAUZE AND SECURE WITH KERLIX. REPLACE DRESSING DAILY. LEFT HEEL- UNSTAGEABLE PRESSURE ULCER MEASURES 9.5X8.0X0.3CM. 100% MOIST BLACK ESCHAR. WITH STRONG FOUL ODOR. RECOMMEND- CLEAN WITH SALINE. APPLY WET TO DRY DRESSINGS WITH DAKINS 0.25% DAKIN'S SOLUTION. COVER WITH GAUZE, ABD PAD AND SECURE WITH KERLIX. REPLACE DAILY. RIGHT ANTERIOR LOW LEG-VENOUS ULCER MEASURES 2.5X3.0X0.2CM WITH PINK GRANULATION TISSUE. RIGHT ANTERIOR DISTAL LOW LEG -VENOUS ULCER MEASURES 1.5X0.2X0.1CM WITH PINK GRANULATION TISSUE. RECOMMEND-CLEAN WITH SALINE PAT DRY. APPLY XEROFORM GAUZE, GAUZE AND COVER WITH KERLIX. REPLACE DAILY RIGHT HEEL-DTI MEASURES 2.5X3.0CM. AREA DARK PURPLE IN COLOR AND BOGGY TO TOUCH. NO DRAINAGE NOTED. RECOMMEND- PAINT WITH CAVILON SKIN PROTECTOR, GAUZE AND WRAP WITH KERLIX. REPLACE DAILY. We will follow with recommendations thank you for letting participate patient's care Fairly numerous bubbles of soft tissue gas are seen within the subcutaneous fat and possibly the intrinsic musculature of the plantar surface of the heel. There is high STIR and decreased T1 signal within the calcaneus, and there is indistinctness of the inferior and posterior cortical margins of the calcaneus. There is some soft tissue ulceration of the plantar surface of the heel, as well as marked thinning of the subcutaneous fat overlying the calcaneal tuberosity. There is considerable edema of the plantar surface subcutaneous fat. There is also edema of the subcutaneous fat of the lateral and medial ankle. No focal discrete fluid collection to suggest drainable abscess demonstrated. Impression: Evidence of ulceration overlying the calcaneal tuberosity Soft tissue gas within the heel, as described. This may represent penetration the above, but is worrisome for infection with a gas-forming organism Abnormal signal within the posterior and mid calcaneus, highly suspicious for acute osteomyelitis (8) Decubitus ulcer of heel (9) Diabetes mellitus out of control (10) Acute on chronic renal failure (11) NSTEMI (non-ST elevated myocardial infarction) (12) High anion gap metabolic acidosis Joseph Alamo May 05, 2020 12:17
[2020-05-05] MEDS ORDERED: Eliquis 5mg tablet ORAL SCH (13:00)
[2020-05-05] MEDS ORDERED: Eliquis 2.5mg tablet ORAL SCH (13:00)
--- NOTE | 2020-05-05 13:00 | NUR ---
NURSE NOTES: Pt will be given HD at this time. And also blood will be given by HD nurse.
--- NOTE | 2020-05-05 13:24 | NUR ---
RD ASSESSMENT & RECOMMENDATIONS SEE CARE ACTIVITY FOR COMPLETE ASSESSMENT DAILY ESTIMATED NEEDS: Needs based on Wound, JYOTI + HD initiated/ 59kg 30-35 kcals/kg 4920-3084 total kcals 1.25-1.8 (w/ HD) g protein/kg 74-106 g total protein 20-25 mL/kg 1595-7072 total fluid mLs NUTRITION DIAGNOSIS: * Swallowing difficulty R/T dysphagia as evidenced by FREELANCE GRAPHIC DESIGNER recommends pureed moist texture w/ NTL, NPO at this time. * Increased kcal/prot/micronutrients needs R/T wound healing as evidenced by pt admitted w/ multiple wounds, including unstageable wounds @ sacrum, L heel, stage 2 wound @ lt ischium, DTI wound @ R heel. * Altered nutrition related lab values R/T h/o DM, pt on steroidal med, JYOTI as evidenced by elev BGs (200's-300's), elev creat (6.1 trending up). CURRENT DIET:NPO PO DIET RECOMMENDATIONS: RENAL, CCHO MED (texture per [employer]) + Nepro TID w/ meals ENTERAL NUTRITION RECOMMENDATIONS: CONSULT RD FOR TF IF MEDICALLY INDICATED ADDITIONAL RECOMMENDATIONS: * Calibrated bedscale wt * Wound healing:Add Nephrovite x1, Vit C 500mg QD, ZnSO4 220mg QD x 10 days Dedrick BID w/ diet order * Monitor PO diet tolerance and acceptance, need for nonorla feeding * W/ diet, consider long acting insulin * Monitor renal fxn and for continuity of HD, monitor lytes .
--- NOTE | 2020-05-05 13:30 | NUR ---
NURSE NOTES: ST evaluation was done yesterday. Dr. Story is aware that ST recommendation (pureed/thin liquid, may need G-tube for nutrition/hydration and medication). No new order.
[2020-05-05 16:00] VITALS: BP 135/55
--- NOTE | 2020-05-05 16:03 | NUR ---
NURSE NOTES: Dr. De Jesus switched heparin drip to eliquis po but pt refused taking meds. Pt did not even open her mouth at all. Dr. De Jesus was notified and ordered lovenox 1mg/kg sq bid if plt > 50k. Noted and carried out.
[2020-05-05] MEDS: Enoxaparin 60mg Inj SUBQ SCH (16:31)
--- NOTE | 2020-05-05 16:36 | Infectious Diseases Prog Note ---
Assessment/Plan Assessment/Plan ASSESSMENT AND PLAN: 1. 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 sepsis, leukocytosis, fungal uti, JYOTI, blood cultures negative, chest x-ray negative - cefepime, doxycycline, flagyl - day # 28/42 - diflucan - day # 3/5 - monitor labs - wound management per surgery 2. Acute renal failure. Dialysis. 3. Diabetes. 4. Hypertension. 5. Dyslipidemia. 6. Diabetes and hypertension treatment per primary care team. 7. Anemia. 8. Wound care per Surgery. 9. Allergic to penicillin. 10. Social history is negative. 11. Family history is noncontributory. 12. MAR is noted. 13. Case discussed with RN. Subjective Constitutional: Reports: fatigue, other - getting hd ; Denies: fever HEENT: Denies: congestion Respiratory: Denies: shortness of breath Cardiovascular: Denies: chest pain Gastrointestinal/Abdominal: Denies: nausea, vomiting, diarrhea Genitourinary: Reports: other - HD patient Neurologic: Reports: weakness Psychiatric: Reports: other - NA Skin: Denies: rash Hematologic: Denies: bleeding Musculoskeletal: Reports: other - NA Allergies: Coded Allergies: PENICILLINS (Verified Allergy, Unknown, 12/05/17) Objective Last 24 Hour Vital Signs Date Time Temp Pulse Resp B/P (MAP) Pulse Ox O2 Delivery O2 Flow Rate FiO2 05/05/20 16:12 Nasal Cannula 3.0 99 05/05/20 12:35 Nasal Cannula 3.0 97 05/05/20 12:00 96.8 84 20 94/66 (75) 94 05/05/20 09:00 Room Air 05/05/20 08:00 96.8 85 20 99/67 (78) 98 05/05/20 04:00 96.8 93 20 119/63 (81) 94 05/05/20 00:00 97.4 96 20 125/56 (79) 94 05/04/20 21:00 Room Air 05/04/20 20:00 97.7 92 22 127/66 (86) 98 Height (Feet): 5 Height (Inches): 7.00 Weight (Pounds): 130 General Appearance: no acute distress HEENT: normocephalic, atraumatic, anicteric Respiratory/Chest: lungs clear, normal breath sounds, no respiratory distress, no accessory muscle use Cardiovascular: normal rate, regular rhythm, no gallop/murmur, no JVD Abdomen: normal bowel sounds, soft, non tender, no organomegaly, non distended Genitourinary: other - HD patient Extremities: no cyanosis Skin: no rash Neurologic/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 No pneumothorax. The lungs and pleural spaces are clear. The heart size is normal Impression: No acute process Microbiology Date/Time Source Procedure Growth Status 05/01/20 15:50 Urine,Clean Catch Urine Culture - Preliminary Yeast Species Strep Species, Gamma-Hemolytic Resulted 05/01/20 15:30 Rectum - Final NO CARBAPENEM-RESISTANT ENTEROBACTERI... Complete 05/01/20 07:10 Blood Blood Culture - Preliminary NO GROWTH AFTER 24 HOURS Resulted Laboratory Tests Test 05/04/20 18:24 05/04/20 18:55 05/05/20 00:21 05/05/20 03:25 POC Whole Blood Glucose 388 MG/DL (74-106) H 368 MG/DL (74-106) H Activated Partial Thromboplast Time > 150 SEC (23-33) *H > 150 SEC (23-33) *H White Blood Count 14.4 K/UL (4.8-10.8) H Red Blood Count 2.35 M/UL (4.20-5.40) L Hemoglobin 7.3 G/DL (12.0-16.0) L Hematocrit 20.5 % (37.0-47.0) L Mean Corpuscular Volume 87 FL (80-99) Mean Corpuscular Hemoglobin 31.0 PG (27.0-31.0) Mean Corpuscular Hemoglobin Concent 35.6 G/DL (32.0-36.0) Red Cell Distribution Width 17.5 % (11.6-14.8) H Platelet Count 109 K/UL (150-450) L Mean Platelet Volume 9.3 FL (6.5-10.1) Neutrophils (%) (Auto) % (45.0-75.0) Lymphocytes (%) (Auto) % (20.0-45.0) Monocytes (%) (Auto) % (1.0-10.0) Eosinophils (%) (Auto) % (0.0-3.0) Basophils (%) (Auto) % (0.0-2.0) Sodium Level 143 MMOL/L (136-145) Potassium Level 3.2 MMOL/L (3.5-5.1) L Chloride Level 112 MMOL/L (98-107) H Carbon Dioxide Level 17 MMOL/L (21-32) L Anion Gap 14 mmol/L (5-15) Blood Urea Nitrogen 56 mg/dL (7-18) H Creatinine 6.1 MG/DL (0.55-1.30) H Estimat Glomerular Filtration Rate 8.2 mL/min (>60) Glucose Level 344 MG/DL (74-106) H Calcium Level 6.8 MG/DL (8.5-10.1) L Ionized Calcium (Measured) 0.97 mmol/L (1.10-1.35) L Phosphorus Level 3.6 MG/DL (2.5-4.9) Magnesium Level 1.8 MG/DL (1.8-2.4) Test 05/05/20 06:21 05/05/20 11:45 05/05/20 13:31 POC Whole Blood Glucose 298 MG/DL (74-106) H 267 MG/DL (74-106) H Activated Partial Thromboplast Time 46 SEC (23-33) H Current Medications Medications (Trade) Dose Ordered Sig/Enrike Route PRN Reason Start Time Stop Time Status Last Admin Dose Admin Bisacodyl (Dulcolax) 10 mg DAILYPRN PRN RECTAL Constipation 05/01/20 20:30 07/30/20 20:29 Cefepime HCl 2 gm/ Dextrose 55 ml @ 110 mls/hr Q24H IVPB 05/02/20 18:00 05/09/20 17:59 05/04/20 17:28 Chlorhexidine Gluconate (Holli-Hex 2%) 1 applic 2XW TOPIC 05/06/20 09:00 08/04/20 08:59 Chlorhexidine Gluconate (Holli-Hex 2%) 1 applic DAILY@1999 TOPIC 05/02/20 20:00 07/31/20 19:59 05/04/20 21:20 Dextrose (Dextrose 50%) 25 ml Q30M PRN IV Hypoglycemia 05/01/20 20:30 07/30/20 20:29 Dextrose (Dextrose 50%) 50 ml Q30M PRN IV Hypoglycemia 05/01/20 20:30 07/30/20 20:29 Doxycycline Hyclate 100 mg/ Dextrose 110 ml @ 110 mls/hr Q12HR IV 05/02/20 21:00 05/09/20 20:59 05/05/20 10:35 Enoxaparin Sodium (Lovenox) 60 mg Q24H SUBQ 05/05/20 17:00 08/03/20 16:59 Fluconazole (Diflucan) 100 mg DAILY ORAL 05/04/20 09:00 05/11/20 08:59 Insulin Aspart (NovoLOG) Q6HR SUBQ 05/03/20 00:00 08/01/20 00:00 05/05/20 13:33 Lorazepam (Ativan 2mg/ml 1ml) 0.5 mg Q4H PRN IV For Anxiety 05/01/20 20:30 05/08/20 20:29 Metronidazole 100 ml @ 100 mls/hr Q8H IVPB 05/04/20 00:00 05/11/20 00:00 05/05/20 08:33 Ondansetron HCl (Zofran) 4 mg Q6H PRN IVP Nausea & Vomiting 05/01/20 20:30 05/31/20 20:29 Sodium Hypochlorite (Dakin's Quarter Strength) 1 applic DAILY TOPIC 05/05/20 09:00 06/04/20 08:59 05/05/20 10:35 Sodium Bicarbonate (NaHCO3) 650 mg THREE TIMES A DAY ORAL 05/02/20 18:00 06/01/20 17:59 Elyse Leung MD May 05, 2020 16:36
--- NOTE | 2020-05-05 16:40 | NUR ---
NURSE NOTES: HD was done. Output 0ml.
--- NOTE | 2020-05-05 16:46 | NUR ---
CASE MANAGEMENT:REVIEW SI;JYOTI. UTI. DVT. 96.8 84 20 94/66 94% 3L NC WBC 14.4 H/H 7.3/20.5 PLT 109 K+ 3.2 BUN 56 CR 6.1 BG 344 CA 6.8 IS;LOVENOX SQ QD KCL IV ALBUMIN IV DIFLUCAN PO QD FLAGYL IV Q8 NaHCO3 IV DOXYCYCLINE IV Q12 CEFEPIME IV QD MED SURG STATUS DCP;FROM [facility]
--- NOTE | 2020-05-05 17:43 | General Progress Note ---
Subjective Date patient seen: May 05, 2020 ROS Limited/Unobtainable: Yes Allergies: Coded Allergies: PENICILLINS (Verified Allergy, Unknown, 12/05/17) Subjective No acute events overnight per nursing. Patient still encephalopathic, still not able to open eyes or verbalize today. Dialysis during exam. Unable to obtain ROS due to ALOC Objective Last 24 Hour Vital Signs Date Time Temp Pulse Resp B/P (MAP) Pulse Ox O2 Delivery O2 Flow Rate FiO2 05/05/20 16:12 Nasal Cannula 3.0 99 05/05/20 16:00 97.0 81 17 135/55 (81) 98 05/05/20 12:35 Nasal Cannula 3.0 97 05/05/20 12:00 96.8 84 20 94/66 (75) 94 05/05/20 09:00 Room Air 05/05/20 08:00 96.8 85 20 99/67 (78) 98 05/05/20 04:00 96.8 93 20 119/63 (81) 94 05/05/20 00:00 97.4 96 20 125/56 (79) 94 05/04/20 21:00 Room Air 05/04/20 20:00 97.7 92 22 127/66 (86) 98 Intake and Output 05/04/20 05/05/20 19:00 07:00 Intake Total 885.758 ml 885 ml Output Total 2 ml 5 ml Balance 883.758 ml 880 ml Intake IV Total 885.758 ml 885 ml Output Urine Total 2 ml 5 ml # Bowel Movements 1 Laboratory Tests 05/04/20 18:24: POC Whole Blood Glucose 388H 05/04/20 18:55: Activated Partial Thromboplast Time > 150*H 05/05/20 00:21: POC Whole Blood Glucose 368H 05/05/20 03:25: Activated Partial Thromboplast Time > 150*H, White Blood Count 14.4H, Red Blood Count 2.35L, Hemoglobin 7.3L, Hematocrit 20.5L, Mean Corpuscular Volume 87, Mean Corpuscular Hemoglobin 31.0, Mean Corpuscular Hemoglobin Concent 35.6, Red Cell Distribution Width 17.5H, Platelet Count 109L, Mean Platelet Volume 9.3, Neutrophils (%) (Auto) , Lymphocytes (%) (Auto) , Monocytes (%) (Auto) , Eosinophils (%) (Auto) , Basophils (%) (Auto) , Sodium Level 143, Potassium Level 3.2L, Chloride Level 112H, Carbon Dioxide Level 17L, Anion Gap 14, Blood Urea Nitrogen 56H, Creatinine 6.1H, Estimat Glomerular Filtration Rate 8.2, Glucose Level 344H, Calcium Level 6.8L, Ionized Calcium (Measured) 0.97L, Phosphorus Level 3.6, Magnesium Level 1.8 05/05/20 06:21: POC Whole Blood Glucose 298H 05/05/20 11:45: Activated Partial Thromboplast Time 46H 05/05/20 13:31: POC Whole Blood Glucose 267H Height (Feet): 5 Height (Inches): 7.00 Weight (Pounds): 130 Objective General: WDWN female in NAD, A&O x 0 (baseline is A&o x 1), sleeping but arousable, not conversant, not following commands HEENT: Normocephalic atraumatic, nares patent and no symmetrical, mucous membranes moist CV: Regular rate regular rhythm, no murmurs, rubs, or gallops Pulm: Lungs clear to auscultation bilaterally. No wheezes, rhonchi, or rales GI: Soft, nontender, nondistended, bowel sounds present Neuro: grossly intact, no focal signs. Ext: No lower extremity edema bilaterally. LUE 1-2+ edema Skin: no rashes lesions or ulcers Msk: Joints symmetrical in upper extremity and lower extremity bilaterally, no joint swelling. Lymph: No lymphadenopathy in upper extremity and lower extremity CXR 05/04/2020 Technique: One view of the chest Comparison: 03/31/2020 Findings: Interim placement of a right jugular temporary dialysis catheter in satisfactory position. No pneumothorax. The lungs and pleural spaces are clear. The heart size is normal Impression: No acute process Assessment/Plan Assessment/Plan: This is a 69-year-old female presenting with acute encephalopathy, JYOTI, acute UTI. #Acute kidney injury, suspect possible Vanc toxicity vs. component of pre renal as well. FeNA elevated suggesting intrinsic process #Renal failure on HD #Anemia #Hypokalemia #Hypomagnesemia > FeNA 3.8% suspect intrinsic -telemetry -Urine sodium, urine creatinine, urine eosinophils: reviewed -Renal ultrasound: no hydro, medical renal disease - transfuse PRN with HD - Vargas catheter for strict I's and O's -Check vanc level: in 30s - IV fluids per nephro - HD per nephro, catheter in place per xray read -Avoid nephrotoxins -Trend creatinine -Appreciate nephro consult: Dr. Waterman -mario carey PRN - d/w Sister Elisha who is medical decision maker. Confirmed ok with HD (pending consent by Nephro) #Acute metabolic encephalopathy #Underlying dementia #Acute UTI #LLE osteomyelitis s/p debridement on 04/07/2020 with bone biopsy and cultures obtained. #Stage II sacral decubitus ulcer > CTH no acute abnormality >EKG reviewed -Blood cultures -Urine culture -Appreciate ID consult: Bola -Lora gen surgery consult: Jasmeet -Neurology consult: D/w Dr. Lee -Holding Vanc due to elevated Vanco level - Switch to doxycycline instead (04/07 - ) -Continue Cefepime (renally dosed). (04/07 - ) -Continue Flagyl (04/07 - ) -Continue Abx for 42 days -swallow eval: pending -check TSH: normal -check lactate: normal -trend troponin: normal #Acute LUE DVT, picc related - D/w Heme and surgery - remove PICC line - heparin GTT #DM2 -Hold lantus -hold metformin -SSI -accuchecks -hypoglycemia protocol #essential hypertension #hyperlipidemia -hold home amlodipine for now -hold benazepril -holding asa -holding statin FENPPX DVTPPX: HSQ Fluids: as above Diet: NPO pending swallow eval Lines: PIV, LUE PICC PT/OT: pending Code status: Full per SNF Dispo: back to SNF Reason for Continued Hospitalization: jyoti/renal failure, AMS MIPS ([employer]-based Incentive Payment System) Applicable CPT: 67101, 48501 CHECK ALL THAT ARE MET: [] Measure #5 (CHF): All ages. Prescribe DESTINEY/ARB upon discharge for patients with left ventricular systolic dysfunction. If not, the reason is clearly documented in the medical chart [] Measure #8 (CHF): All ages. Prescribe a beta jennifer upon discharge for patients with left ventricular systolic dysfunction. If not, the reason is clearly documented in the medical chart. [] Measure #47: Advance care plan or surrogate decision maker documented in the medical record. [x] Measure #130 The provider has documented, updated, or reviewed the patients current medication list and has documented it in the patients note. [x] Measure #374 (All): Send report to referring provider. [] Measure #407(Sepsis due to MSSA bacteremia): Age 18+ Patient treated with a beta-lactam antibiotic (Nafcillin, Oxacillin or Cefazolin) as definitive therapy. MEDICAL COMPLEXITYHigh complexity medical decision making (need 2/3 categories)Problem - need 4 points [x]Acute/new problem with new plan for workup (4 points, 1 max) [] Acute/new problem without additional workup (3 points, 1 max) [x] Unstable chronic problem actively being managed (2 point each, 2 max) [x] Stable chronic problem actively being managed (1 point each, 2 max) [x] Self-limited/transient process (constipation, muscle ache, etc) (1 point each, 2 max) Data - need 4 points [x] Reviewed labs/imaging studies (1 points, 2 max) [x] Independent review of imaging (EKG, xrays, etc) (2 points, 2 max) [x] Discussed case with consult/other MD/RN (2 points, 2 max) High Risk - qualify if have one of the following: [x] Severe exacerbation of acute problem, acute mental status change, IV narcotics, monitoring drug levels (vancomycin, INR, tacrolimus etc) I spent 35 minutes on this patient's case, and 23 mins was dedicated to counseling and/or care coordination. Discussed with nephro, ID, gen surgery, neurology. Time of note may not reflect time of encounter Carlton Story M.D. May 05, 2020 17:43
[2020-05-05] MEDS: Cefepime HCl 2 GM in D5W 55 ML IVPB SCH (18:11)
--- NOTE | 2020-05-05 19:30 | NUR ---
NURSE NOTES: Pt. received from ZACH Haq. Pt. AAOx0, sleeping at this time, no indications of SOB, no indications of pain at this time. IV noted right wrist 24g. Right IJ elva cath noted CDI. Bed low and locked, side rails x3 up, bed alarm active, and call light in reach.
--- NOTE | 2020-05-05 19:30 | NUR ---
NURSE HAND-OFF: Important Events on Shift: HD done(output:0ml) Patient Status: stable Diet: NPO Pending Orders: n/a Pending Results/Labs:n/a Pending MD notification:n/a Latest Vital Signs: Temperature 97.0 , Pulse 81 , B/P 135 /55 , Respiratory Rate 17 , O2 SAT 98 , Room Air, O2 Flow Rate 3.0 . Vital Sign Comment: stable Latest Hernandez Fall Score: 70 Fall Risk: High Risk Safety Measures: Call light Within Reach, Bed Alarm Zone 2, Side Rails Side Rails x3, Bed position Low and Locked. Fall Precautions: Yellow Socks Yellow Gown Report given to ZACH Vera.
[2020-05-05 20:00] VITALS: BP 103/53
[2020-05-05] MEDS: Dyna-Hex 2% Top Sol 2oz TOPIC SCH (20:36)
[2020-05-05] MEDS ORDERED: Enoxaparin 60mg Inj SUBQ SCH (21:00)
--- NOTE | 2020-05-05 22:40 | Neurology Progress Note ---
Interim History Interim History ROS Limited/Unobtainable: Yes Interim History remains somnolent, not much change Objective Physical Exam Last Vital Signs Date Time Temp Pulse Resp B/P (MAP) Pulse Ox O2 Delivery O2 Flow Rate FiO2 05/05/20 21:00 Room Air 05/05/20 16:12 3.0 99 05/05/20 16:00 97.0 81 17 135/55 (81) 98 Laboratory Tests Test 05/05/20 00:21 05/05/20 03:25 05/05/20 06:21 05/05/20 11:45 POC Whole Blood Glucose 368 MG/DL (74-106) H 298 MG/DL (74-106) H White Blood Count 14.4 K/UL (4.8-10.8) H Red Blood Count 2.35 M/UL (4.20-5.40) L Hemoglobin 7.3 G/DL (12.0-16.0) L Hematocrit 20.5 % (37.0-47.0) L Mean Corpuscular Volume 87 FL (80-99) Mean Corpuscular Hemoglobin 31.0 PG (27.0-31.0) Mean Corpuscular Hemoglobin Concent 35.6 G/DL (32.0-36.0) Red Cell Distribution Width 17.5 % (11.6-14.8) H Platelet Count 109 K/UL (150-450) L Mean Platelet Volume 9.3 FL (6.5-10.1) Neutrophils (%) (Auto) % (45.0-75.0) Lymphocytes (%) (Auto) % (20.0-45.0) Monocytes (%) (Auto) % (1.0-10.0) Eosinophils (%) (Auto) % (0.0-3.0) Basophils (%) (Auto) % (0.0-2.0) Activated Partial Thromboplast Time > 150 SEC (23-33) *H 46 SEC (23-33) H Sodium Level 143 MMOL/L (136-145) Potassium Level 3.2 MMOL/L (3.5-5.1) L Chloride Level 112 MMOL/L (98-107) H Carbon Dioxide Level 17 MMOL/L (21-32) L Anion Gap 14 mmol/L (5-15) Blood Urea Nitrogen 56 mg/dL (7-18) H Creatinine 6.1 MG/DL (0.55-1.30) H Estimat Glomerular Filtration Rate 8.2 mL/min (>60) Glucose Level 344 MG/DL (74-106) H Calcium Level 6.8 MG/DL (8.5-10.1) L Ionized Calcium (Measured) 0.97 mmol/L (1.10-1.35) L Phosphorus Level 3.6 MG/DL (2.5-4.9) Magnesium Level 1.8 MG/DL (1.8-2.4) Test 05/05/20 13:31 05/05/20 18:10 POC Whole Blood Glucose 267 MG/DL (74-106) H 191 MG/DL (74-106) H Impression/Recommendations Problems: (1) Sepsis (2) Hyperkalemia (3) Leukocytosis (4) Altered mental status (5) Diabetes mellitus out of control (6) Acute on chronic renal failure (7) NSTEMI (non-ST elevated myocardial infarction) (8) High anion gap metabolic acidosis (9) Sacral decubitus ulcer (10) Decubitus ulcer of heel (11) UTI (urinary tract infection) (12) JYOTI (acute kidney injury) Diagnostic Impression acute metabolic encephalopathy jyoti sepsis baseline dementia cont ivfs delirium precautions no need for mri brain cont Thee Burden MD May 05, 2020 22:40
[2020-05-06] VITALS (9 sets, daily range): BP systolic 103–132; BP diastolic 45–68
--- NOTE | 2020-05-06 04:40 | NUR ---
NURSE NOTES: Dressings changed on sacrum, left heel, and left leg according to wound care orders.
[2020-05-06] MEDS: NovoLOG Insulin Flexpen SUBQ SCH ×3 (05:28→18:26)
--- NOTE | 2020-05-06 06:43 | Hematology/Onc Progress Note ---
Assessment/Plan Assessment/Plan Assessment and Recs # Left upper extremity axillary, subclavian, and brachial venous thrombosis --> heparin gtt was started-->now changed to lovenox as supertherapeutic --> consider eliquis or coumadin once closer to dc --> patient does have eleno/ckd, thus agent needed not affected by renal function --> monitor for bleed # Leukocytosis likely secondary to left heel and foot osteomyelitis. --> likely due to infected wounds, heel ulcerations --> ABX flucon/flagyl/cefepime --> Peripheral smear, reviewed, hold off flow for now --> elev inflammatory markers --> WBC 35-->22-->18-->14-->13-->11.4->>>13 # Anemia due to underlying chronic disease. --> Continue to closely monitor for improvement. --> Anemia w/u has been reviewed. Will trend cbc daily. --> Hgb goal >7 -> hgb 12-->10.7->9.4-->9.5->10-->7.3 --> anemia panel reviewed before # Hyperkalemia. Given Kayexalate. --> Improved # Diabetic ketoacidosis. --> per before, improved # ESRD --> hd with line inserted # Shortness of breath in past with dka # Dvt ppx --> lovenox sq The time the note was entered does not necessarily correspond to the time the patient was seen. Subjective HEENT: Denies: no symptoms, eye pain, blurred vision, tearing, double vision, ear pain, ear discharge, nose pain, nose congestion, throat pain, throat swelling, mouth pain, mouth swelling, other Cardiovascular: Denies: no symptoms, chest pain, edema, irregular heart rate, lightheadedness, palpitations, syncope, other Respiratory: Denies: no symptoms, cough, shortness of breath, SOB with excertion, SOB at rest, sputum, wheezing, other Gastrointestinal/Abdominal: Denies: no symptoms, abdomen distended, abdominal pain, black stools, tarry stools, blood in stool, constipated, diarrhea, difficulty swallowing, nausea, poor appetite, poor fluid intake, rectal bleeding, vomiting, other Genitourinary: Denies: no symptoms, burning, discharge, frequency, flank pain, hematuria, incontinence, pain, urgency, other Neurologic/Psychiatric: Denies: no symptoms, anxiety, depressed, emotional problems, headache, numbness, paresthesia, pre-existing deficit, seizure, tingling, tremors, weakness, other Endocrine: Denies: no symptoms, excessive sweating, flushing, intolerance to cold, intolerance to heat, increased hunger, increased thirst, increased urine, unexplained weight gain, unexplained weight loss, other Allergies: Coded Allergies: PENICILLINS (Verified Allergy, Unknown, 12/05/17) Subjective 05/05 hgb 7.3 this am, plts lower, no bleeding, ptt elev, will hold off hep gtt 05/06 labs noted, no bleeding, now on lovenox sq, sis somnolent in am Objective Objective Current Medications Medications (Trade) Dose Ordered Sig/Enrike Route PRN Reason Start Time Stop Time Status Last Admin Dose Admin Bisacodyl (Dulcolax) 10 mg DAILYPRN PRN RECTAL Constipation 05/01/20 20:30 07/30/20 20:29 Cefepime HCl 2 gm/ Dextrose 55 ml @ 110 mls/hr Q24H IVPB 05/02/20 18:00 05/09/20 17:59 05/05/20 18:11 Chlorhexidine Gluconate (Holli-Hex 2%) 1 applic 2XW TOPIC 05/06/20 09:00 08/04/20 08:59 Chlorhexidine Gluconate (Holli-Hex 2%) 1 applic DAILY@1999 TOPIC 05/02/20 20:00 07/31/20 19:59 05/05/20 20:36 Dextrose (Dextrose 50%) 25 ml Q30M PRN IV Hypoglycemia 05/01/20 20:30 07/30/20 20:29 Dextrose (Dextrose 50%) 50 ml Q30M PRN IV Hypoglycemia 05/01/20 20:30 07/30/20 20:29 Doxycycline Hyclate 100 mg/ Dextrose 110 ml @ 110 mls/hr Q12HR IV 05/02/20 21:00 05/09/20 20:59 05/05/20 20:36 Enoxaparin Sodium (Lovenox) 60 mg Q24H SUBQ 05/05/20 17:00 08/03/20 16:59 12/23/20 16:31 Fluconazole (Diflucan) 100 mg DAILY ORAL 05/04/20 09:00 05/11/20 08:59 Insulin Aspart (NovoLOG) Q6HR SUBQ 05/03/20 00:00 08/01/20 00:00 05/06/20 05:28 Lorazepam (Ativan 2mg/ml 1ml) 0.5 mg Q4H PRN IV For Anxiety 05/01/20 20:30 05/08/20 20:29 Metronidazole 100 ml @ 100 mls/hr Q8H IVPB 05/04/20 00:00 05/11/20 00:00 05/05/20 23:51 Ondansetron HCl (Zofran) 4 mg Q6H PRN IVP Nausea & Vomiting 05/01/20 20:30 05/31/20 20:29 Sodium Hypochlorite (Dakin's Quarter Strength) 1 applic DAILY TOPIC 05/05/20 09:00 06/04/20 08:59 05/05/20 10:35 Sodium Bicarbonate (NaHCO3) 650 mg THREE TIMES A DAY ORAL 05/02/20 18:00 06/01/20 17:59 Last 24 Hour Vital Signs Date Time Temp Pulse Resp B/P (MAP) Pulse Ox O2 Delivery O2 Flow Rate FiO2 05/06/20 04:00 97.5 96 20 131/65 (87) 96 05/06/20 00:00 97.3 80 20 132/63 (86) 100 05/05/20 21:00 Room Air 05/05/20 20:00 96.1 101 20 103/53 (70) 95 05/05/20 16:12 Nasal Cannula 3.0 99 05/05/20 16:00 97.0 81 17 135/55 (81) 98 05/05/20 12:35 Nasal Cannula 3.0 97 05/05/20 12:00 96.8 84 20 94/66 (75) 94 05/05/20 09:00 Room Air 05/05/20 08:00 96.8 85 20 99/67 (78) 98 05/05/20 04:00 96.8 93 20 119/63 (81) 94 05/05/20 00:00 97.4 96 20 125/56 (79) 94 05/04/20 21:00 Room Air 05/04/20 20:00 97.7 92 22 127/66 (86) 98 05/04/20 16:00 97.7 92 18 114/54 (74) 99 05/04/20 12:00 98.6 69 18 104/65 (78) 96 05/04/20 09:00 Room Air 05/04/20 08:00 98.9 87 17 141/67 (91) 96 Intake and Output 05/05/20 05/06/20 19:00 07:00 Intake Total 376.795 ml 210 ml Output Total 0 ml Balance 376.795 ml 210 ml Intake IV Total 376.795 ml 210 ml Output Urine Total 0 ml # Bowel Movements 1 Labs Test 05/03/20 08:45 05/03/20 12:35 05/03/20 14:05 05/03/20 18:05 Sodium Level 145 MMOL/L (136-145) Potassium Level 3.1 MMOL/L (3.5-5.1) Chloride Level 112 MMOL/L (98-107) Carbon Dioxide Level 16 MMOL/L (21-32) Anion Gap 17 mmol/L (5-15) Blood Urea Nitrogen 44 mg/dL (7-18) Creatinine 5.5 MG/DL (0.55-1.30) Estimat Glomerular Filtration Rate 9.3 mL/min (>60) Glucose Level 283 MG/DL (74-106) Calcium Level 7.0 MG/DL (8.5-10.1) Phosphorus Level 4.0 MG/DL (2.5-4.9) Magnesium Level 1.5 MG/DL (1.8-2.4) Random Vancomycin Level 30.7 ug/mL POC Whole Blood Glucose 277 MG/DL (74-106) 292 MG/DL (74-106) Activated Partial Thromboplast Time 34 SEC (23-33) Test 05/03/20 21:58 05/03/20 23:44 05/04/20 02:23 05/04/20 05:21 POC Whole Blood Glucose 317 MG/DL (74-106) 276 MG/DL (74-106) White Blood Count 13.4 K/UL (4.8-10.8) Red Blood Count 3.30 M/UL (4.20-5.40) Hemoglobin 10.1 G/DL (12.0-16.0) Hematocrit 29.2 % (37.0-47.0) Mean Corpuscular Volume 89 FL (80-99) Mean Corpuscular Hemoglobin 30.7 PG (27.0-31.0) Mean Corpuscular Hemoglobin Concent 34.7 G/DL (32.0-36.0) Red Cell Distribution Width 17.5 % (11.6-14.8) Platelet Count 152 K/UL (150-450) Mean Platelet Volume 9.0 FL (6.5-10.1) Neutrophils (%) (Auto) 74.7 % (45.0-75.0) Lymphocytes (%) (Auto) 16.0 % (20.0-45.0) Monocytes (%) (Auto) 7.5 % (1.0-10.0) Eosinophils (%) (Auto) 0.9 % (0.0-3.0) Basophils (%) (Auto) 0.9 % (0.0-2.0) Activated Partial Thromboplast Time > 150 SEC (23-33) Sodium Level 144 MMOL/L (136-145) Potassium Level 3.0 MMOL/L (3.5-5.1) Chloride Level 113 MMOL/L (98-107) Carbon Dioxide Level 17 MMOL/L (21-32) Anion Gap 14 mmol/L (5-15) Blood Urea Nitrogen 46 mg/dL (7-18) Creatinine 5.7 MG/DL (0.55-1.30) Estimat Glomerular Filtration Rate 8.8 mL/min (>60) Glucose Level 263 MG/DL (74-106) Calcium Level 6.8 MG/DL (8.5-10.1) Phosphorus Level 3.7 MG/DL (2.5-4.9) Magnesium Level 1.5 MG/DL (1.8-2.4) Total Bilirubin 0.3 MG/DL (0.2-1.0) Aspartate Amino Transf (AST/SGOT) 20 U/L (15-37) Alanine Aminotransferase (ALT/SGPT) 17 U/L (12-78) Alkaline Phosphatase 107 U/L (46-116) Total Protein 5.1 G/DL (6.4-8.2) Albumin 1.3 G/DL (3.4-5.0) Globulin 3.8 g/dL Albumin/Globulin Ratio 0.3 (1.0-2.7) Test 12/22/20 10:18 05/04/20 12:18 05/04/20 18:24 05/04/20 18:55 Activated Partial Thromboplast Time > 150 SEC (23-33) > 150 SEC (23-33) POC Whole Blood Glucose 291 MG/DL (74-106) 388 MG/DL (74-106) Test 05/05/20 00:21 05/05/20 03:25 05/05/20 06:21 05/05/20 11:45 POC Whole Blood Glucose 368 MG/DL (74-106) 298 MG/DL (74-106) White Blood Count 14.4 K/UL (4.8-10.8) Red Blood Count 2.35 M/UL (4.20-5.40) Hemoglobin 7.3 G/DL (12.0-16.0) Hematocrit 20.5 % (37.0-47.0) Mean Corpuscular Volume 87 FL (80-99) Mean Corpuscular Hemoglobin 31.0 PG (27.0-31.0) Mean Corpuscular Hemoglobin Concent 35.6 G/DL (32.0-36.0) Red Cell Distribution Width 17.5 % (11.6-14.8) Platelet Count 109 K/UL (150-450) Mean Platelet Volume 9.3 FL (6.5-10.1) Neutrophils (%) (Auto) % (45.0-75.0) Lymphocytes (%) (Auto) % (20.0-45.0) Monocytes (%) (Auto) % (1.0-10.0) Eosinophils (%) (Auto) % (0.0-3.0) Basophils (%) (Auto) % (0.0-2.0) Activated Partial Thromboplast Time > 150 SEC (23-33) 46 SEC (23-33) Sodium Level 143 MMOL/L (136-145) Potassium Level 3.2 MMOL/L (3.5-5.1) Chloride Level 112 MMOL/L (98-107) Carbon Dioxide Level 17 MMOL/L (21-32) Anion Gap 14 mmol/L (5-15) Blood Urea Nitrogen 56 mg/dL (7-18) Creatinine 6.1 MG/DL (0.55-1.30) Estimat Glomerular Filtration Rate 8.2 mL/min (>60) Glucose Level 344 MG/DL (74-106) Calcium Level 6.8 MG/DL (8.5-10.1) Ionized Calcium (Measured) 0.97 mmol/L (1.10-1.35) Phosphorus Level 3.6 MG/DL (2.5-4.9) Magnesium Level 1.8 MG/DL (1.8-2.4) Test 05/05/20 13:31 05/05/20 18:10 05/05/20 23:50 05/06/20 05:06 POC Whole Blood Glucose 267 MG/DL (74-106) 191 MG/DL (74-106) 227 MG/DL (74-106) 236 MG/DL (74-106) Test 05/06/20 05:23 Height (Feet): 5 Height (Inches): 7.00 Weight (Pounds): 130 Objective Physical Exam Vitals: reviewed, normal General Appearance: no apparent distress, non-toxic, lethargic HEENT: bilateral eye normal inspection, bilateral eye PERRL Neck: full range of motion, supple/symm/no masses Resp: chest non-tender, lungs clear, normal breath sounds, speaking full sentences Cardiovascular: regular rate, rhythm, no edema Gastrointestinal: normal bowel sounds, non tender Rectal: deferred Genitourinary: normal inspection, no CVA tenderness Musculoskeletal: back normal, gait/station normal, non-tender Lymphatic: no adenopathy David De Jesus MD May 06, 2020 06:43
[2020-05-06 06:51] LABS: HEMATOCRIT 16.7 % (37.0-47.0); MEAN CORPUSCULAR VOLUME 91 FL (80-99); PLATELET COUNT 67 K/UL (150-450); RED BLOOD COUNT 1.84 M/UL (4.20-5.40); RED CELL DISTRIBUTION WIDTH 16.1 % (11.6-14.8); WHITE BLOOD COUNT 14.4 K/UL (4.8-10.8)
[2020-05-06 07:01] LABS: HEMOGLOBIN 5.7 G/DL (12.0-16.0)
--- NOTE | 2020-05-06 07:01 | NUR ---
NURSE NOTES: Hgb 5.7, reported from [facility]. Dr Veras called and notified, awaiting return call and orders.
[2020-05-06 07:06] LABS: ALBUMIN 1.4 G/DL (3.4-5.0); ALBUMIN/GLOBULIN RATIO 0.7 (1.0-2.7); BILIRUBIN,TOTAL 0.5 MG/DL (0.2-1.0); CALCIUM 7.2 MG/DL (8.5-10.1); CREATININE 4.2 MG/DL (0.55-1.30); POTASSIUM 3.8 MMOL/L (3.5-5.1)
--- NOTE | 2020-05-06 07:18 | NUR ---
NURSE NOTES: Report received from Chuy SERRANO, rounds made. Patient sleeping, moves upper arms slightly to touch, does not open eyes or respond to voice. NPO. RW saline lock, flushed, patent. Right IJ central line for HD in place, dressing CDI. FC in place, no output noted. Bilateral lower extremities, wrapped with kerlix, will provide skin care. P200 mattress in place. Patient remains safe. Bed in lowest position, will continue to monitor. Will attempt to notify MD for critical value HH 5.7/16.7.
--- NOTE | 2020-05-06 07:35 | NUR ---
NURSE HAND-OFF: Important Events on Shift:[pt. reported hbg 5.7, Dr Chase called and awaiting orders, endorsed to day shift nurse and charge nurse aware] Patient Status: sleeping Diet: NPO Pending Orders: na Pending Results/Labs:na Pending MD notification:hbg 5.7 Latest Vital Signs: Temperature 97.5 , Pulse 96 , B/P 131 /65 , Respiratory Rate 20 , O2 SAT 96 , Room Air, O2 Flow Rate 3.0 . Vital Sign Comment: stable Latest Hernandez Fall Score: 70 Fall Risk: High Risk Safety Measures: Call light Within Reach, Bed Alarm Zone 1, Side Rails Side Rails x3, Bed position Low and Locked. Fall Precautions: Yellow Socks Yellow Gown Report given to ZACH Guerrero .
[2020-05-06] MEDS: Fluconazole 100mg tab ORAL SCH (08:25)
[2020-05-06] MEDS: Sodium Bicarbonate 650mg Tab ORAL SCH ×3 (08:26→18:00)
[2020-05-06] MEDS: Dakin's 0.125% Soln (Quarter Strength) 16oz TOPIC SCH (08:30)
[2020-05-06] MEDS: Dyna-Hex 2% Top Sol 2oz TOPIC SCH ×2 (08:30→20:22)
--- NOTE | 2020-05-06 08:40 | NUR ---
NURSE NOTES: Detailed message left with call back number for Dr. Veras group regarding critical value labs HH 5.7/16.7.
--- NOTE | 2020-05-06 09:05 | NUR ---
CHARGE NURSE NOTE: According to ([facility]) their calling system was not working. Notified him regarding low hemoglobin/hematocrit. (5.7/16.7). Stat CBC ordered, lab.tech. notified.
[2020-05-06 09:54] LABS: HEMATOCRIT 16.8 % (37.0-47.0); MEAN CORPUSCULAR VOLUME 82 FL (80-99); PLATELET COUNT 68 K/UL (150-450); RED BLOOD COUNT 2.04 M/UL (4.20-5.40); RED CELL DISTRIBUTION WIDTH 16.2 % (11.6-14.8); WHITE BLOOD COUNT 16.5 K/UL (4.8-10.8)
[2020-05-06] MEDS: Doxycycline Hyclate 100 MG in D5W 110 ML IV SCH ×2 (10:48→20:22)
[2020-05-06 10:49] LABS: HEMOGLOBIN 6.2 G/DL (12.0-16.0)
--- NOTE | 2020-05-06 14:13 | NUR ---
CASE MANAGEMENT:REVIEW SI;JYOTI. DVT. UTI. 97.6 101 20 103/53 96% ON RA WBC 16.5 H/H 5.7/16.7 PLT 67 BUN 36 CR 4.2 BG 254 CA 7.2 AST 45 ALB 1.4 IS;FLAGYL PO QD DOXYCYCLINE IV Q12 NaHCO3 PO TID CEFEPIME IV QD DIFLUCAN PO QD MED SURG STATUS DCP;FROM [facility]
--- NOTE | 2020-05-06 14:24 | Surgery Progress Note ---
Surgery Progress Note Subjective Symptoms: improved, tolerating diet, passing flatus Objective Last 24 Hour Vital Signs Date Time Temp Pulse Resp B/P (MAP) Pulse Ox O2 Delivery O2 Flow Rate FiO2 05/06/20 13:40 96.4 80 16 103/45 (64) 99 05/06/20 13:25 96.4 92 16 108/51 (70) 99 05/06/20 12:00 97.6 80 18 129/64 (85) 99 05/06/20 09:00 Room Air 05/06/20 08:00 97.5 89 16 125/54 (77) 100 05/06/20 04:00 97.5 96 20 131/65 (87) 96 05/06/20 00:00 97.3 80 20 132/63 (86) 100 05/05/20 21:00 Room Air 05/05/20 20:00 96.1 101 20 103/53 (70) 95 05/05/20 16:12 Nasal Cannula 3.0 99 05/05/20 16:00 97.0 81 17 135/55 (81) 98 I&O Intake and Output 05/05/20 05/06/20 19:00 07:00 Intake Total 376.795 ml 210 ml Output Total 0 ml 0 ml Balance 376.795 ml 210 ml Intake IV Total 376.795 ml 210 ml Output Urine Total 0 ml 0 ml # Bowel Movements 1 Dressing: saturated Cardiovascular: RSR Respiratory: decreased breath sounds Abdomen: non-tender, present bowel sounds Extremities: no tenderness, no cyanosis Laboratory Tests Test 05/05/20 18:10 05/05/20 23:50 05/06/20 05:06 05/06/20 05:23 POC Whole Blood Glucose 191 MG/DL (74-106) H 227 MG/DL (74-106) H 236 MG/DL (74-106) H White Blood Count 14.4 K/UL (4.8-10.8) H Red Blood Count 1.84 M/UL (4.20-5.40) L Hemoglobin 5.7 G/DL (12.0-16.0) *L Hematocrit 16.7 % (37.0-47.0) L Mean Corpuscular Volume 91 FL (80-99) Mean Corpuscular Hemoglobin 31.2 PG (27.0-31.0) H Mean Corpuscular Hemoglobin Concent 34.3 G/DL (32.0-36.0) Red Cell Distribution Width 16.1 % (11.6-14.8) H Platelet Count 67 K/UL (150-450) L Mean Platelet Volume 10.2 FL (6.5-10.1) H Neutrophils (%) (Auto) % (45.0-75.0) Lymphocytes (%) (Auto) % (20.0-45.0) Monocytes (%) (Auto) % (1.0-10.0) Eosinophils (%) (Auto) % (0.0-3.0) Basophils (%) (Auto) % (0.0-2.0) Differential Total Cells Counted 100 Neutrophils % (Manual) 79 % (45-75) H Lymphocytes % (Manual) 13 % (20-45) L Monocytes % (Manual) 7 % (1-10) Eosinophils % (Manual) 0 % (0-3) Basophils % (Manual) 0 % (0-2) Band Neutrophils 1 % (0-8) Platelet Estimate Decreased L Platelet Morphology Normal Hypochromasia 3+ Anisocytosis 2+ Sodium Level 143 MMOL/L (136-145) Potassium Level 3.8 MMOL/L (3.5-5.1) Chloride Level 110 MMOL/L (98-107) H Carbon Dioxide Level 22 MMOL/L (21-32) Anion Gap 11 mmol/L (5-15) Blood Urea Nitrogen 36 mg/dL (7-18) H Creatinine 4.2 MG/DL (0.55-1.30) H Estimat Glomerular Filtration Rate 12.7 mL/min (>60) Glucose Level 254 MG/DL (74-106) H Calcium Level 7.2 MG/DL (8.5-10.1) L Total Bilirubin 0.5 MG/DL (0.2-1.0) Aspartate Amino Transf (AST/SGOT) 45 U/L (15-37) H Alanine Aminotransferase (ALT/SGPT) 17 U/L (12-78) Alkaline Phosphatase 74 U/L (46-116) Total Protein 3.5 G/DL (6.4-8.2) L Albumin 1.4 G/DL (3.4-5.0) L Globulin 2.1 g/dL Albumin/Globulin Ratio 0.7 (1.0-2.7) L Test 05/06/20 09:10 05/06/20 12:40 White Blood Count 16.5 K/UL (4.8-10.8) H Red Blood Count 2.04 M/UL (4.20-5.40) L Hemoglobin 6.2 G/DL (12.0-16.0) *L Hematocrit 16.8 % (37.0-47.0) L Mean Corpuscular Volume 82 FL (80-99) # Mean Corpuscular Hemoglobin 30.4 PG (27.0-31.0) Mean Corpuscular Hemoglobin Concent 36.9 G/DL (32.0-36.0) H Red Cell Distribution Width 16.2 % (11.6-14.8) H Platelet Count 68 K/UL (150-450) L Mean Platelet Volume 12.0 FL (6.5-10.1) H Neutrophils (%) (Auto) % (45.0-75.0) Lymphocytes (%) (Auto) % (20.0-45.0) Monocytes (%) (Auto) % (1.0-10.0) Eosinophils (%) (Auto) % (0.0-3.0) Basophils (%) (Auto) % (0.0-2.0) Differential Total Cells Counted 100 Neutrophils % (Manual) 75 % (45-75) Lymphocytes % (Manual) 20 % (20-45) Monocytes % (Manual) 5 % (1-10) Eosinophils % (Manual) 0 % (0-3) Basophils % (Manual) 0 % (0-2) Band Neutrophils 0 % (0-8) Platelet Estimate Decreased L Platelet Morphology Normal Hypochromasia 3+ Anisocytosis 3+ POC Whole Blood Glucose 224 MG/DL (74-106) H Plan Problems: (1) UTI (urinary tract infection) (2) JYOTI (acute kidney injury) (3) Hyperkalemia (4) Leukocytosis Assessment & Plan: dvt upper extremity picc related remove picc once temp line in anticoag as per heme worsening leukocytosis on abx (5) Sepsis (6) Altered mental status (7) Sacral decubitus ulcer Assessment & Plan: 69-year-old female multiple comorbidities presented with failure to thrive lethargic altered mental status noted to have abnormal labs and have draining bilateral heel unstageable decubitus ulcers multiple skin lesions on the lower extremities as well as a sacral decubitus ulcer as well. Imaging reviewed. Patient has been eating less recently but currently is eating at the bedside though does not look like she is taking much in. Treatment plan Turn every 2 hours Offload pressure with pillows pillow on side as necessary as well as underneath calf to elevate heels Air soft mattress nutritional optimization continue IV antibiotics per infectious disease SACRUM- STAGE - UNSTAGEABLE PRESSURE ULCER MEASURES 6.0X13.0X0.2. WOUND BED WITH 80% SLOUGH AND 20% PINK GRANULATION TISSUE. NOTED FOUL ODOR RECOMMEND-CLEAN WITH SALINE. APPLY WET TO DRY DRESSINGS WITH DAKINS 0.25% DAKIN'S SOLUTION.COVER WITH OPTIFOAM DRESSING. REPLACE DRESSING DAILY. LEFT ISCHIUM-STAGE II PRESSURE ULCER MEASURES 4.5X0.5X0.2CM. PINK GRANULATION TISSUE NOTED. RECOMMEND- CLEAN WITH SALINE, PAT DRY. APPLY CALAZINE AND COVER WITH OPTIFOAM DRESSING. LEFT ANTERIOR LOW LEG-VENOUS ULCER MEASURES 8.0X2.6X0.2CM 100% YELLOW SLOUGH NOTED TO WOUND BED. RECOMMEND- CLEAN WITH SALINE, PA DRY. APPLY THERAHONEY. COVER WITH GAUZE AND SECURE WITH KERLIX. REPLACE DRESSING DAILY. LEFT HEEL- UNSTAGEABLE PRESSURE ULCER MEASURES 9.5X8.0X0.3CM. 100% MOIST BLACK ESCHAR. WITH STRONG FOUL ODOR. RECOMMEND- CLEAN WITH SALINE. APPLY WET TO DRY DRESSINGS WITH DAKINS 0.25% DAKIN'S SOLUTION. COVER WITH GAUZE, ABD PAD AND SECURE WITH KERLIX. REPLACE DAILY. RIGHT ANTERIOR LOW LEG-VENOUS ULCER MEASURES 2.5X3.0X0.2CM WITH PINK GRANULATION TISSUE. RIGHT ANTERIOR DISTAL LOW LEG -VENOUS ULCER MEASURES 1.5X0.2X0.1CM WITH PINK GRANULATION TISSUE. RECOMMEND-CLEAN WITH SALINE PAT DRY. APPLY XEROFORM GAUZE, GAUZE AND COVER WITH KERLIX. REPLACE DAILY RIGHT HEEL-DTI MEASURES 2.5X3.0CM. AREA DARK PURPLE IN COLOR AND BOGGY TO TOUCH. NO DRAINAGE NOTED. RECOMMEND- PAINT WITH CAVILON SKIN PROTECTOR, GAUZE AND WRAP WITH KERLIX. REPLACE DAILY. We will follow with recommendations thank you for letting participate patient's care Fairly numerous bubbles of soft tissue gas are seen within the subcutaneous fat and possibly the intrinsic musculature of the plantar surface of the heel. There is high STIR and decreased T1 signal within the calcaneus, and there is indistinctness of the inferior and posterior cortical margins of the calcaneus. There is some soft tissue ulceration of the plantar surface of the heel, as well as marked thinning of the subcutaneous fat overlying the calcaneal tuberosity. There is considerable edema of the plantar surface subcutaneous fat. There is also edema of the subcutaneous fat of the lateral and medial ankle. No focal discrete fluid collection to suggest drainable abscess demonstrated. Impression: Evidence of ulceration overlying the calcaneal tuberosity Soft tissue gas within the heel, as described. This may represent penetration the above, but is worrisome for infection with a gas-forming organism Abnormal signal within the posterior and mid calcaneus, highly suspicious for acute osteomyelitis (8) Decubitus ulcer of heel (9) Diabetes mellitus out of control (10) Acute on chronic renal failure (11) NSTEMI (non-ST elevated myocardial infarction) (12) High anion gap metabolic acidosis Joseph Alamo May 06, 2020 14:24
--- NOTE | 2020-05-06 15:43 | General Progress Note ---
Subjective Date patient seen: May 06, 2020 ROS Limited/Unobtainable: Yes Allergies: Coded Allergies: PENICILLINS (Verified Allergy, Unknown, 12/05/17) Subjective Hgb 5.7 this AM, repeat ordered, still low, so PRBC transfusion ordered. Patient still encephalopathic, still not able to open eyes or verbalize today. Unable to obtain ROS due to ALOC Objective Last 24 Hour Vital Signs Date Time Temp Pulse Resp B/P (MAP) Pulse Ox O2 Delivery O2 Flow Rate FiO2 05/06/20 13:40 96.4 80 16 103/45 (64) 99 05/06/20 13:25 96.4 92 16 108/51 (70) 99 05/06/20 12:00 97.6 80 18 129/64 (85) 99 05/06/20 09:00 Room Air 05/06/20 08:00 97.5 89 16 125/54 (77) 100 05/06/20 04:00 97.5 96 20 131/65 (87) 96 05/06/20 00:00 97.3 80 20 132/63 (86) 100 05/05/20 21:00 Room Air 05/05/20 20:00 96.1 101 20 103/53 (70) 95 05/05/20 16:12 Nasal Cannula 3.0 99 05/05/20 16:00 97.0 81 17 135/55 (81) 98 Intake and Output 05/05/20 05/06/20 19:00 07:00 Intake Total 376.795 ml 210 ml Output Total 0 ml 0 ml Balance 376.795 ml 210 ml Intake IV Total 376.795 ml 210 ml Output Urine Total 0 ml 0 ml # Bowel Movements 1 Laboratory Tests 05/05/20 18:10: POC Whole Blood Glucose 191H 05/05/20 23:50: POC Whole Blood Glucose 227H 05/06/20 05:06: POC Whole Blood Glucose 236H 05/06/20 05:23: White Blood Count 14.4H, Red Blood Count 1.84L, Hemoglobin 5.7*L, Hematocrit 16.7L, Mean Corpuscular Volume 91, Mean Corpuscular Hemoglobin 31.2H, Mean C orpuscular Hemoglobin Concent 34.3, Red Cell Distribution Width 16.1H, Platelet Count 67L, Mean Platelet Volume 10.2H, Neutrophils (%) (Auto) , Lymphocytes (%) (Auto) , Monocytes (%) (Auto) , Eosinophils (%) (Auto) , Basophils (%) (Auto) , Differential Total Cells Counted 100, Neutrophils % (Manual) 79H, Lymphocytes % (Manual) 13L, Monocytes % (Manual) 7, Eosinophils % (Manual) 0, Basophils % (Manual) 0, Band Neutrophils 1, Platelet Estimate DecreasedL, Platelet Morphology Normal, Hypochromasia 3+, Anisocytosis 2+, Sodium Level 143, Potassium Level 3.8, Chloride Level 110H, Carbon Dioxide Level 22, Anion Gap 11, Blood Urea Nitrogen 36H, Creatinine 4.2H, Estimat Glomerular Filtration Rate 12.7, Glucose Level 254H, Calcium Level 7.2L, Total Bilirubin 0.5, Aspartate Amino Transf (AST/SGOT) 45H, Alanine Aminotransferase (ALT/SGPT) 17, Alkaline Phosphatase 74, Total Protein 3.5L, Albumin 1.4L, Globulin 2.1, Albumin/Globulin Ratio 0.7L 05/06/20 09:10: White Blood Count 16.5H, Red Blood Count 2.04L, Hemoglobin 6.2*L, Hematocrit 16 .8L, Mean Corpuscular Volume 82#, Mean Corpuscular Hemoglobin 30.4, Mean Corpuscular Hemoglobin Concent 36.9H, Red Cell Distribution Width 16.2H, Platelet Count 68L, Mean Platelet Volume 12.0H, Neutrophils (%) (Auto) , Lymphocytes (%) (Auto) , Monocytes (%) (Auto) , Eosinophils (%) (Auto) , Basophils (%) (Auto) , Differential Total Cells Counted 100, Neutrophils % (Manual) 75, Lymphocytes % (Manual) 20, Monocytes % (Manual) 5, Eosinophils % (Manual) 0, Basophils % (Manual) 0, Band Neutrophils 0, Platelet Estimate DecreasedL, Platelet Morphology Normal, Hypochromasia 3+, Anisocytosis 3+ 05/06/20 12:40: POC Whole Blood Glucose 224H Height (Feet): 5 Height (Inches): 7.00 Weight (Pounds): 130 Objective General: WDWN female in NAD, A&O x 0 (baseline is A&o x 1), sleeping but arousable, not conversant, not following commands. No signs of bleeding. HEENT: Normocephalic atraumatic, nares patent and no symmetrical, mucous membranes moist CV: Regular rate regular rhythm, no murmurs, rubs, or gallops Pulm: Lungs clear to auscultation bilaterally. No wheezes, rhonchi, or rales GI: Soft, nontender, nondistended, bowel sounds present Neuro: grossly intact, no focal signs. Ext: No lower extremity edema bilaterally. LUE 1-2+ edema Skin: no rashes lesions or ulcers Msk: Joints symmetrical in upper extremity and lower extremity bilaterally, no joint swelling. Lymph: No lymphadenopathy in upper extremity and lower extremity CXR 05/04/2020 Technique: One view of the chest Comparison: 03/31/2020 Findings: Interim placement of a right jugular temporary dialysis catheter in satisfactory position. No pneumothorax. The lungs and pleural spaces are clear. The heart size is normal Impression: No acute process Assessment/Plan Assessment/Plan: This is a 69-year-old female presenting with acute encephalopathy, JYOTI, acute UTI. #Acute kidney injury, suspect possible Vanc toxicity vs. component of pre renal as well. FeNA elevated suggesting intrinsic process #Renal failure on HD #Anemia - severe, no signs of bleeding, transfusing PRBC today #Hypokalemia #Hypomagnesemia > FeNA 3.8% suspect intrinsic -telemetry -Urine sodium, urine creatinine, urine eosinophils: reviewed -Renal ultrasound: no hydro, medical renal disease - transfuse PRN with HD - Vargas catheter for strict I's and O's -Check vanc level: in 30s - IV fluids per nephro - HD per nephro, catheter in place per xray read -Avoid nephrotoxins -Trend creatinine -Appreciate nephro consult: Dr. Waterman -mario carey PRN - d/w Sister Elisha who is medical decision maker. Confirmed ok with HD (pending consent by Nephro) #Acute metabolic encephalopathy #Underlying dementia #Acute UTI #LLE osteomyelitis s/p debridement on 04/07/2020 with bone biopsy and cultures obtained. #Stage II sacral decubitus ulcer > CTH no acute abnormality >EKG reviewed -Blood cultures -Urine culture -Appreciate ID consult: Bola -Appreciate gen surgery consult: Jasmeet -Neurology consult: D/w Dr. Lee -Holding Vanc due to elevated Vanco level - Switch to doxycycline instead (04/07 - ) -Continue Cefepime (renally dosed). (04/07 - ) -Continue Flagyl (04/07 - ) -Continue Abx for 42 days -swallow eval: pending -check TSH: normal -check lactate: normal -trend troponin: normal #Acute LUE DVT, picc related - D/w Heme and surgery - remove PICC line - heparin GTT #DM2 -Hold lantus -hold metformin -SSI -accuchecks -hypoglycemia protocol #essential hypertension #hyperlipidemia -hold home amlodipine for now -hold benazepril -holding asa -holding statin FENPPX DVTPPX: HSQ Fluids: as above Diet: NPO pending swallow eval Lines: PIV, LUE PICC PT/OT: pending Code status: Full per SNF Dispo: back to SNF Reason for Continued Hospitalization: jyoti/renal failure, AMS, anemia MIPS ([employer]-based Incentive Payment System) Applicable CPT: 86175, 21547 CHECK ALL THAT ARE MET: [] Measure #5 (CHF): All ages. Prescribe DESTINEY/ARB upon discharge for patients with left ventricular systolic dysfunction. If not, the reason is clearly documented in the medical chart [] Measure #8 (CHF): All ages. Prescribe a beta jennifer upon discharge for augusto ents with left ventricular systolic dysfunction. If not, the reason is clearly documented in the medical chart. [] Measure #47: Advance care plan or surrogate decision maker documented in the medical record. [x] Measure #130 The provider has documented, updated, or reviewed the patients current medication list and has documented it in the patients note. [x] Measure #374 (All): Send report to referring provider. [] Measure #407(Sepsis due to MSSA bacteremia): Age 18+ Patient treated with a beta-lactam antibiotic (Nafcillin, Oxacillin or Cefazolin) as definitive therapy. MEDICAL COMPLEXITYHigh complexity medical decision making (need 2/3 categories)Problem - need 4 points [x]Acute/new problem with new plan for workup (4 points, 1 max) [] Acute/new problem without additional workup (3 points, 1 max) [x] Unstable chronic problem actively being managed (2 point each, 2 max) [x] Stable chronic problem actively being managed (1 point each, 2 max) [x] Self-limited/transient process (constipation, muscle ache, etc) (1 point each, 2 max) Data - need 4 points [x] Reviewed labs/imaging studies (1 points, 2 max) [x] Independent review of imaging (EKG, xrays, etc) (2 points, 2 max) [x] Discussed case with consult/other MD/RN (2 points, 2 max) High Risk - qualify if have one of the following: [x] Severe exacerbation of acute problem, acute mental status change, IV narcotics, monitoring drug levels (vancomycin, INR, tacrolimus etc) I spent 40 minutes on this patient's case, and 25 mins was dedicated to counseling and/or care coordination. Discussed with nephro, ID, gen surgery, neurology. Time of note may not reflect time of encounter Carlton Story M.D. May 06, 2020 15:43
--- NOTE | 2020-05-06 16:20 | NUR ---
NURSE NOTES: Transfused one unit PRBC at 1325 ended 1620. Vitals remained stable. No adverse reaction.
--- NOTE | 2020-05-06 16:54 | Nephrology Progress Note ---
Assessment/Plan Plan #JYOTI - concerns for vancomycin nephrotoxicity- r/o ATN- baseline Cr 0.8- also with volume depletion # osteomyelitis of LLE- on vanco, cefepime and flagyl #AMS #diabetes # hypertension, #hyperlipidemia # dementia. - s/p HD yesterday - prbc transfusion today - renal US with no acute findings - avoid vanco for now - monitor renal output time spent 65min Subjective ROS Limited/Unobtainable: Yes Subjective BUN /cr rising discussed with daughter s/p HD yesterday hemoglobin low prbc transfusion Objective Objective Last 24 Hour Vital Signs Date Time Temp Pulse Resp B/P (MAP) Pulse Ox O2 Delivery O2 Flow Rate FiO2 05/06/20 13:40 96.4 80 16 103/45 (64) 99 05/06/20 13:25 96.4 92 16 108/51 (70) 99 05/06/20 12:00 97.6 80 18 129/64 (85) 99 05/06/20 09:00 Room Air 05/06/20 08:00 97.5 89 16 125/54 (77) 100 05/06/20 04:00 97.5 96 20 131/65 (87) 96 05/06/20 00:00 97.3 80 20 132/63 (86) 100 05/05/20 21:00 Room Air 05/05/20 20:00 96.1 101 20 103/53 (70) 95 Intake and Output 05/05/20 05/06/20 19:00 07:00 Intake Total 376.795 ml 210 ml Output Total 0 ml 0 ml Balance 376.795 ml 210 ml Intake IV Total 376.795 ml 210 ml Output Urine Total 0 ml 0 ml # Bowel Movements 1 Laboratory Tests 05/05/20 18:10: POC Whole Blood Glucose 191H 05/05/20 23:50: POC Whole Blood Glucose 227H 05/06/20 05:06: POC Whole Blood Glucose 236H 05/06/20 05:23: White Blood Count 14.4H, Red Blood Count 1.84L, Hemoglobin 5.7*L, Hematocrit 16.7L, Mean Corpuscular Volume 91, Mean Corpuscular Hemoglobin 31.2H, Mean Corpuscular Hemoglobin Concent 34.3, Red Cell Distribution Width 16.1H, Platelet Count 67L, Mean Platelet Volume 10.2H, Neutrophils (%) (Auto) , Lymphocytes (%) (Auto) , Monocytes (%) (Auto) , Eosinophils (%) (Auto) , Basophils (%) (Auto) , Differential Total Cells Counted 100, Neutrophils % (Manual) 79H, Lymphocytes % (Manual) 13L, Monocytes % (Manual) 7, Eosinophils % (Manual) 0, Basophils % (Manual) 0, Band Neutrophils 1, Platelet Estimate DecreasedL, Platelet Morphology Normal, Hypochromasia 3+, Anisocytosis 2+, Sodium Level 143, Potassium Level 3.8, Chloride Level 110H, Carbon Dioxide Level 22, Anion Gap 11, Blood Urea Nitrogen 36H, Creatinine 4.2H, Estimat Glomerular Filtration Rate 12.7, Glucose Level 254H, Calcium Level 7.2L, Total Bilirubin 0.5, Aspartate Amino Transf (AST/SGOT) 45H, Alanine Aminotransferase (ALT/SGPT) 17, Alkaline Phosphatase 74, Total Protein 3.5L, Albumin 1.4L, Globulin 2.1, Albumin/Globulin Ratio 0.7L 05/06/20 09:10: White Blood Count 16.5H, Red Blood Count 2.04L, Hemoglobin 6.2*L, Hematocrit 16.8L, Mean Corpuscular Volume 82#, Mean Corpuscular Hemoglobin 30.4, Mean Corpuscular Hemoglobin Concent 36.9H, Red Cell Distribution Width 16.2H, Platelet Count 68L, Mean Platelet Volume 12.0H, Neutrophils (%) (Auto) , Lymphocytes (%) (Auto) , Monocytes (%) (Auto) , Eosinophils (%) (Auto) , Basophils (%) (Auto) , Differential Total Cells Counted 100, Neutrophils % (Manual) 75, Lymphocytes % (Manual) 20, Monocytes % (Manual) 5, Eosinophils % (Manual) 0, Basophils % (Manual) 0, Band Neutrophils 0, Platelet Estimate DecreasedL, Platelet Morphology Normal, Hypochromasia 3+, Anisocytosis 3+ 05/06/20 12:40: POC Whole Blood Glucose 224H Height (Feet): 5 Height (Inches): 7.00 Weight (Pounds): 130 General Appearance: no apparent distress EENT: PERRL/EOMI, normal ENT inspection Neck: non-tender, normal alignment Cardiovascular: normal peripheral pulses, normal rate Respiratory/Chest: chest wall non-tender, lungs clear Abdomen: normal bowel sounds, non tender Extremities: non-tender Niko Waterman M.D. May 06, 2020 16:54
[2020-05-06] MEDS: Enoxaparin 60mg Inj SUBQ SCH (18:27)
--- NOTE | 2020-05-06 19:14 | NUR ---
NURSE HAND-OFF: Important Events on Shift:Transfused one unit PRBCs (HH6.2/16.8) Patient Status: stable Diet: NPO Pending Orders: Needs one more unit PRBCs to be transfused Pending Results/Labs:CBC BMP MG PHOS 05/07 Pending MD notification:none Latest Vital Signs: Temperature 96.8 , Pulse 80 , B/P 116 /68 , Respiratory Rate 19 , O2 SAT 98 , Room Air, O2 Flow Rate 3.0 . Vital Sign Comment: none Latest Hernandez Fall Score: 70 Fall Risk: High Risk Safety Measures: Call light Within Reach, Bed Alarm Zone 1, Side Rails Side Rails x3, Bed position Low and Locked. Fall Precautions: Yellow Socks Yellow Gown Report given to Juanis SERRANO.
--- NOTE | 2020-05-06 19:40 | NUR ---
NURSE NOTES: Received patient awake in bed, no s/s of acute distress, non verbal. Right IJ noted, dressing dry and intact. Peripheral IV on right wrist, finishing IV abx. 2nd unit of PRBC to be transfused after PM abx administration. P200 mattress noted. Bed low and locked, patient wearing non slip socks.
--- NOTE | 2020-05-06 20:20 | Neurology Progress Note ---
Interim History Interim History ROS Limited/Unobtainable: Yes Interim History confused, low Hb Objective Physical Exam Last Vital Signs Date Time Temp Pulse Resp B/P (MAP) Pulse Ox O2 Delivery O2 Flow Rate FiO2 05/06/20 16:20 96.8 80 19 116/68 (84) 98 05/06/20 09:00 Room Air 05/05/20 16:12 3.0 99 Laboratory Tests Test 05/05/20 23:50 05/06/20 05:06 05/06/20 05:23 05/06/20 09:10 POC Whole Blood Glucose 227 MG/DL (74-106) H 236 MG/DL (74-106) H White Blood Count 14.4 K/UL (4.8-10.8) H 16.5 K/UL (4.8-10.8) H Red Blood Count 1.84 M/UL (4.20-5.40) L 2.04 M/UL (4.20-5.40) L Hemoglobin 5.7 G/DL (12.0-16.0) *L 6.2 G/DL (12.0-16.0) *L Hematocrit 16.7 % (37.0-47.0) L 16.8 % (37.0-47.0) L Mean Corpuscular Volume 91 FL (80-99) 82 FL (80-99) # Mean Corpuscular Hemoglobin 31.2 PG (27.0-31.0) H 30.4 PG (27.0-31.0) Mean Corpuscular Hemoglobin Concent 34.3 G/DL (32.0-36.0) 36.9 G/DL (32.0-36.0) H Red Cell Distribution Width 16.1 % (11.6-14.8) H 16.2 % (11.6-14.8) H Platelet Count 67 K/UL (150-450) L 68 K/UL (150-450) L Mean Platelet Volume 10.2 FL (6.5-10.1) H 12.0 FL (6.5-10.1) H Neutrophils (%) (Auto) % (45.0-75.0) % (45.0-75.0) Lymphocytes (%) (Auto) % (20.0-45.0) % (20.0-45.0) Monocytes (%) (Auto) % (1.0-10.0) % (1.0-10.0) Eosinophils (%) (Auto) % (0.0-3.0) % (0.0-3.0) Basophils (%) (Auto) % (0.0-2.0) % (0.0-2.0) Differential Total Cells Counted 100 100 Neutrophils % (Manual) 79 % (45-75) H 75 % (45-75) Lymphocytes % (Manual) 13 % (20-45) L 20 % (20-45) Monocytes % (Manual) 7 % (1-10) 5 % (1-10) Eosinophils % (Manual) 0 % (0-3) 0 % (0-3) Basophils % (Manual) 0 % (0-2) 0 % (0-2) Band Neutrophils 1 % (0-8) 0 % (0-8) Platelet Estimate Decreased L Decreased L Platelet Morphology Normal Normal Hypochromasia 3+ 3+ Anisocytosis 2+ 3+ Sodium Level 143 MMOL/L (136-145) Potassium Level 3.8 MMOL/L (3.5-5.1) Chloride Level 110 MMOL/L (98-107) H Carbon Dioxide Level 22 MMOL/L (21-32) Anion Gap 11 mmol/L (5-15) Blood Urea Nitrogen 36 mg/dL (7-18) H Creatinine 4.2 MG/DL (0.55-1.30) H Estimat Glomerular Filtration Rate 12.7 mL/min (>60) Glucose Level 254 MG/DL (74-106) H Calcium Level 7.2 MG/DL (8.5-10.1) L Total Bilirubin 0.5 MG/DL (0.2-1.0) Aspartate Amino Transf (AST/SGOT) 45 U/L (15-37) H Alanine Aminotransferase (ALT/SGPT) 17 U/L (12-78) Alkaline Phosphatase 74 U/L (46-116) Total Protein 3.5 G/DL (6.4-8.2) L Albumin 1.4 G/DL (3.4-5.0) L Globulin 2.1 g/dL Albumin/Globulin Ratio 0.7 (1.0-2.7) L Test 05/06/20 12:40 POC Whole Blood Glucose 224 MG/DL (74-106) H Impression/Recommendations Problems: (1) Sepsis (2) Hyperkalemia (3) Leukocytosis (4) Altered mental status (5) Diabetes mellitus out of control (6) Acute on chronic renal failure (7) NSTEMI (non-ST elevated myocardial infarction) (8) High anion gap metabolic acidosis (9) Sacral decubitus ulcer (10) Decubitus ulcer of heel (11) UTI (urinary tract infection) (12) JYOTI (acute kidney injury) Diagnostic Impression acute metabolic encephalopathy jyoti sepsis baseline dementia cont ivfs delirium precautions no need for mri brain cont Thee Burden MD May 06, 2020 20:20
[2020-05-06] MEDS: Cefepime HCl 2 GM in D5W 55 ML IVPB SCH (22:00)
[2020-05-07] VITALS: BP 107/52
[2020-05-07] MEDS: NovoLOG Insulin Flexpen SUBQ SCH ×4 (00:16→17:53)
[2020-05-07 04:00] VITALS: BP 104/41
--- NOTE | 2020-05-07 06:00 | NUR ---
NURSE NOTES: @nd unit PRBC done transfusing at 0500. Lab aware. Patient toelrated well. Refer to paper form in patient's paper chart.
--- NOTE | 2020-05-07 07:06 | NUR ---
NURSE NOTES: Report received from Juanis SERRANO, rounds made. Patient sleeping, moves upper arms slightly to touch, does not open eyes or respond to voice. NPO. RW saline lock, flushed, patent. Right IJ central line for HD in place, dressing CDI. FC in place, no output noted. Bilateral lower extremities, wrapped with kerlix, will provide skin care. P200 mattress in [address]. Patient remains safe. Bed in lowest position, will continue to monitor.
--- NOTE | 2020-05-07 07:10 | NUR ---
HAND-OFF: Report given to ZACH Guerrero.
[2020-05-07 08:00] VITALS: BP 102/54
[2020-05-07] MEDS: Sodium Bicarbonate 650mg Tab ORAL SCH ×3 (08:25→17:30)
[2020-05-07] MEDS: Fluconazole 100mg tab ORAL SCH (08:25)
--- NOTE | 2020-05-07 09:05 | Hematology/Onc Progress Note ---
Assessment/Plan Assessment/Plan Assessment and Recs # Left upper extremity axillary, subclavian, and brachial venous thrombosis --> heparin gtt was started-->now changed to lovenox as supertherapeutic --> consider eliquis or coumadin once closer to dc --> patient does have eleno/ckd, thus agent needed not affected by renal function --> monitor for bleed # Leukocytosis likely secondary to left heel and foot osteomyelitis. --> likely due to infected wounds, heel ulcerations --> ABX flucon/flagyl/cefepime --> Peripheral smear, reviewed, hold off flow for now --> elev inflammatory markers --> WBC 35-->22-->18-->14-->13-->11.4->>>13 # Anemia due to underlying chronic disease. --> Continue to closely monitor for improvement. --> Anemia w/u has been reviewed. Will trend cbc daily. --> Hgb goal >7 -> hgb 12-->10.7->9.4-->9.5->10-->7.3-->5.7-->6.2 --> 2 units 05/07 --> anemia panel reviewed before # Hyperkalemia. Given Kayexalate. --> Improved # Diabetic ketoacidosis. --> per before, improved # ESRD --> hd with line inserted # Shortness of breath in past with dka # Dvt ppx --> lovenox sq The time the note was entered does not necessarily correspond to the time the patient was seen. Subjective Constitutional: Denies: no symptoms, chills, fever, malaise, weakness, other HEENT: Denies: no symptoms, eye pain, blurred vision, tearing, double vision, ear pain, ear discharge, nose pain, nose congestion, throat pain, throat swelling, mouth pain, mouth swelling, other Cardiovascular: Denies: no symptoms, chest pain, edema, irregular heart rate, lightheadedness, palpitations, syncope, other Respiratory: Denies: no symptoms, cough, shortness of breath, SOB with excertion, SOB at rest, sputum, wheezing, other Genitourinary: Denies: no symptoms, burning, discharge, frequency, flank pain, hematuria, incontinence, pain, urgency, other Neurologic/Psychiatric: Denies: no symptoms, anxiety, depressed, emotional problems, headache, numbness, paresthesia, pre-existing deficit, seizure, tingling, tremors, weakness, other Endocrine: Denies: no symptoms, excessive sweating, flushing, intolerance to cold, intolerance to heat, increased hunger, increased thirst, increased urine, unexplained weight gain, unexplained weight loss, other Allergies: Coded Allergies: PENICILLINS (Verified Allergy, Unknown, 12/05/17) Subjective 05/05 hgb 7.3 this am, plts lower, no bleeding, ptt elev, will hold off hep gtt 05/06 labs noted, no bleeding, now on lovenox sq, sis somnolent in am 05/07 is on lovenox sq, is s/p transfusion, labs noted, on abx Objective Objective Current Medications Medications (Trade) Dose Ordered Sig/Enrike Route PRN Reason Start Time Stop Time Status Last Admin Dose Admin Bisacodyl (Dulcolax) 10 mg DAILYPRN PRN RECTAL Constipation 05/01/20 20:30 07/30/20 20:29 Cefepime HCl 2 gm/ Dextrose 55 ml @ 110 mls/hr Q24H IVPB 05/02/20 18:00 05/09/20 17:59 05/06/20 22:00 Chlorhexidine Gluconate (Holli-Hex 2%) 1 applic 2XW TOPIC 05/06/20 09:00 08/04/20 08:59 05/06/20 08:30 Chlorhexidine Gluconate (Holli-Hex 2%) 1 applic DAILY@1999 TOPIC 05/02/20 20:00 07/31/20 19:59 05/06/20 20:22 Dextrose (Dextrose 50%) 25 ml Q30M PRN IV Hypoglycemia 05/01/20 20:30 07/30/20 20:29 Dextrose (Dextrose 50%) 50 ml Q30M PRN IV Hypoglycemia 05/01/20 20:30 07/30/20 20:29 Doxycycline Hyclate 100 mg/ Dextrose 110 ml @ 110 mls/hr Q12HR IV 05/02/20 21:00 05/09/20 20:59 05/06/20 20:22 Enoxaparin Sodium (Lovenox) 60 mg Q24H SUBQ 05/05/20 17:00 08/03/20 16:59 05/06/20 18:27 Fluconazole (Diflucan) 100 mg DAILY ORAL 05/04/20 09:00 05/11/20 08:59 Insulin Aspart (NovoLOG) Q6HR SUBQ 05/03/20 00:00 08/01/20 00:00 05/07/20 06:20 Lorazepam (Ativan 2mg/ml 1ml) 0.5 mg Q4H PRN IV For Anxiety 05/01/20 20:30 05/08/20 20:29 Metronidazole 100 ml @ 100 mls/hr Q8H IVPB 05/04/20 00:00 05/11/20 00:00 05/07/20 08:12 Ondansetron HCl (Zofran) 4 mg Q6H PRN IVP Nausea & Vomiting 05/01/20 20:30 05/31/20 20:29 Sodium Hypochlorite (Dakin's Quarter Strength) 1 applic DAILY TOPIC 05/05/20 09:00 06/04/20 08:59 05/06/20 08:30 Sodium Bicarbonate (NaHCO3) 650 mg THREE TIMES A DAY ORAL 05/02/20 18:00 06/01/20 17:59 Last 24 Hour Vital Signs Date Time Temp Pulse Resp B/P (MAP) Pulse Ox O2 Delivery O2 Flow Rate FiO2 05/07/20 04:00 97.2 94 17 104/41 (62) 98 05/07/20 00:00 98.5 91 18 107/52 (70) 98 05/06/20 21:52 Room Air 05/06/20 20:00 98.9 95 18 110/51 (70) 98 05/06/20 16:20 96.8 80 19 116/68 (84) 98 05/06/20 16:00 98.1 79 19 122/54 (76) 98 05/06/20 13:40 96.4 80 16 103/45 (64) 99 05/06/20 13:25 96.4 92 16 108/51 (70) 99 05/06/20 12:00 97.6 80 18 129/64 (85) 99 05/06/20 09:00 Room Air 05/06/20 08:00 97.5 89 16 125/54 (77) 100 05/06/20 04:00 97.5 96 20 131/65 (87) 96 05/06/20 00:00 97.3 80 20 132/63 (86) 100 05/05/20 21:00 Room Air 05/05/20 20:00 96.1 101 20 103/53 (70) 95 05/05/20 16:12 Nasal Cannula 3.0 99 05/05/20 16:00 97.0 81 17 135/55 (81) 98 05/05/20 12:35 Nasal Cannula 3.0 97 05/05/20 12:00 96.8 84 20 94/66 (75) 94 Intake and Output 05/06/20 05/07/20 19:00 07:00 Output Total 5 ml Balance -5 ml Output Urine Total 5 ml # Voids 1 # Bowel Movements 2 Labs Test 05/04/20 10:18 05/04/20 12:18 05/04/20 18:24 05/04/20 18:55 Activated Partial Thromboplast Time > 150 SEC (23-33) > 150 SEC (23-33) POC Whole Blood Glucose 291 MG/DL (74-106) 388 MG/DL (74-106) Test 05/05/20 00:21 05/05/20 03:25 05/05/20 06:21 05/05/20 11:45 POC Whole Blood Glucose 368 MG/DL (74-106) 298 MG/DL (74-106) White Blood Count 14.4 K/UL (4.8-10.8) Red Blood Count 2.35 M/UL (4.20-5.40) Hemoglobin 7.3 G/DL (12.0-16.0) Hematocrit 20.5 % (37.0-47.0) Mean Corpuscular Volume 87 FL (80-99) Mean Corpuscular Hemoglobin 31.0 PG (27.0-31.0) Mean Corpuscular Hemoglobin Concent 35.6 G/DL (32.0-36.0) Red Cell Distribution Width 17.5 % (11.6-14.8) Platelet Count 109 K/UL (150-450) Mean Platelet Volume 9.3 FL (6.5-10.1) Neutrophils (%) (Auto) % (45.0-75.0) Lymphocytes (%) (Auto) % (20.0-45.0) Monocytes (%) (Auto) % (1.0-10.0) Eosinophils (%) (Auto) % (0.0-3.0) Basophils (%) (Auto) % (0.0-2.0) Activated Partial Thromboplast Time > 150 SEC (23-33) 46 SEC (23-33) Sodium Level 143 MMOL/L (136-145) Potassium Level 3.2 MMOL/L (3.5-5.1) Chloride Level 112 MMOL/L (98-107) Carbon Dioxide Level 17 MMOL/L (21-32) Anion Gap 14 mmol/L (5-15) Blood Urea Nitrogen 56 mg/dL (7-18) Creatinine 6.1 MG/DL (0.55-1.30) Estimat Glomerular Filtration Rate 8.2 mL/min (>60) Glucose Level 344 MG/DL (74-106) Calcium Level 6.8 MG/DL (8.5-10.1) Ionized Calcium (Measured) 0.97 mmol/L (1.10-1.35) Phosphorus Level 3.6 MG/DL (2.5-4.9) Magnesium Level 1.8 MG/DL (1.8-2.4) Test 05/05/20 13:31 05/05/20 18:10 05/05/20 23:50 05/06/20 05:06 POC Whole Blood Glucose 267 MG/DL (74-106) 191 MG/DL (74-106) 227 MG/DL (74-106) 236 MG/DL (74-106) Test 05/06/20 05:23 05/06/20 09:10 05/06/20 12:40 05/07/20 08:30 White Blood Count 14.4 K/UL (4.8-10.8) 16.5 K/UL (4.8-10.8) Red Blood Count 1.84 M/UL (4.20-5.40) 2.04 M/UL (4.20-5.40) Hemoglobin 5.7 G/DL (12.0-16.0) 6.2 G/DL (12.0-16.0) Hematocrit 16.7 % (37.0-47.0) 16.8 % (37.0-47.0) Mean Corpuscular Volume 91 FL (80-99) 82 FL (80-99) Mean Corpuscular Hemoglobin 31.2 PG (27.0-31.0) 30.4 PG (27.0-31.0) Mean Corpuscular Hemoglobin Concent 34.3 G/DL (32.0-36.0) 36.9 G/DL (32.0-36.0) Red Cell Distribution Width 16.1 % (11.6-14.8) 16.2 % (11.6-14.8) Platelet Count 67 K/UL (150-450) 68 K/UL (150-450) Mean Platelet Volume 10.2 FL (6.5-10.1) 12.0 FL (6.5-10.1) Neutrophils (%) (Auto) % (45.0-75.0) % (45.0-75.0) Lymphocytes (%) (Auto) % (20.0-45.0) % (20.0-45.0) Monocytes (%) (Auto) % (1.0-10.0) % (1.0-10.0) Eosinophils (%) (Auto) % (0.0-3.0) % (0.0-3.0) Basophils (%) (Auto) % (0.0-2.0) % (0.0-2.0) Differential Total Cells Counted 100 100 Neutrophils % (Manual) 79 % (45-75) 75 % (45-75) Lymphocytes % (Manual) 13 % (20-45) 20 % (20-45) Monocytes % (Manual) 7 % (1-10) 5 % (1-10) Eosinophils % (Manual) 0 % (0-3) 0 % (0-3) Basophils % (Manual) 0 % (0-2) 0 % (0-2) Band Neutrophils 1 % (0-8) 0 % (0-8) Platelet Estimate Decreased Decreased Platelet Morphology Normal Normal Hypochromasia 3+ 3+ Anisocytosis 2+ 3+ Sodium Level 143 MMOL/L (136-145) Potassium Level 3.8 MMOL/L (3.5-5.1) Chloride Level 110 MMOL/L (98-107) Carbon Dioxide Level 22 MMOL/L (21-32) Anion Gap 11 mmol/L (5-15) Blood Urea Nitrogen 36 mg/dL (7-18) Creatinine 4.2 MG/DL (0.55-1.30) Estimat Glomerular Filtration Rate 12.7 mL/min (>60) Glucose Level 254 MG/DL (74-106) Calcium Level 7.2 MG/DL (8.5-10.1) Total Bilirubin 0.5 MG/DL (0.2-1.0) Aspartate Amino Transf (AST/SGOT) 45 U/L (15-37) Alanine Aminotransferase (ALT/SGPT) 17 U/L (12-78) Alkaline Phosphatase 74 U/L (46-116) Total Protein 3.5 G/DL (6.4-8.2) Albumin 1.4 G/DL (3.4-5.0) Globulin 2.1 g/dL Albumin/Globulin Ratio 0.7 (1.0-2.7) POC Whole Blood Glucose 224 MG/DL (74-106) Height (Feet): 5 Height (Inches): 7.00 Weight (Pounds): 130 Objective Physical Exam Vitals: reviewed, normal General Appearance: no apparent distress, non-toxic, lethargic HEENT: bilateral eye normal inspection, bilateral eye PERRL Neck: full range of motion, supple/symm/no masses Resp: chest non-tender, lungs clear, normal breath sounds, speaking full sentences Cardiovascular: regular rate, rhythm, no edema Gastrointestinal: normal bowel sounds, non tender Rectal: deferred Genitourinary: normal inspection, no CVA tenderness Musculoskeletal: back normal, gait/station normal, non-tender Lymphatic: no adenopathy David De Jesus MD May 07, 2020 09:05
[2020-05-07 09:08] LABS: HEMATOCRIT 22.4 % (37.0-47.0); HEMOGLOBIN 8.2 G/DL (12.0-16.0); MEAN CORPUSCULAR VOLUME 86 FL (80-99); PLATELET COUNT 59 K/UL (150-450); RED BLOOD COUNT 2.61 M/UL (4.20-5.40); RED CELL DISTRIBUTION WIDTH 16.1 % (11.6-14.8); WHITE BLOOD COUNT 14.1 K/UL (4.8-10.8)
[2020-05-07 09:30] LABS: CALCIUM 7.3 MG/DL (8.5-10.1); CREATININE 4.8 MG/DL (0.55-1.30); PHOSPHORUS 3.8 MG/DL (2.5-4.9); POTASSIUM 3.7 MMOL/L (3.5-5.1)
[2020-05-07] MEDS: Doxycycline Hyclate 100 MG in D5W 110 ML IV SCH ×2 (10:30→20:45)
[2020-05-07] MEDS: Dakin's 0.125% Soln (Quarter Strength) 16oz TOPIC SCH (10:30)
--- NOTE | 2020-05-07 10:39 | Nephrology Progress Note ---
Assessment/Plan Plan #JYOTI - concerns for vancomycin nephrotoxicity- r/o ATN- baseline Cr 0.8- also with volume depletion # osteomyelitis of LLE- on vanco, cefepime and flagyl #AMS #diabetes # hypertension, #hyperlipidemia # dementia. - s/p HD yesterday - prbc transfusion today - renal US with no acute findings - avoid vanco for now - monitor renal output time spent 65min Subjective Subjective BUN /cr rising discussed with daughter s/p HD yesterday hemoglobin low prbc transfusion Objective Objective Last 24 Hour Vital Signs Date Time Temp Pulse Resp B/P (MAP) Pulse Ox O2 Delivery O2 Flow Rate FiO2 05/07/20 04:00 97.2 94 17 104/41 (62) 98 05/07/20 00:00 98.5 91 18 107/52 (70) 98 05/06/20 21:52 Room Air 05/06/20 20:00 98.9 95 18 110/51 (70) 98 05/06/20 16:20 96.8 80 19 116/68 (84) 98 05/06/20 16:00 98.1 79 19 122/54 (76) 98 05/06/20 13:40 96.4 80 16 103/45 (64) 99 05/06/20 13:25 96.4 92 16 108/51 (70) 99 05/06/20 12:00 97.6 80 18 129/64 (85) 99 Intake and Output 05/06/20 05/07/20 19:00 07:00 Output Total 5 ml Balance -5 ml Output Urine Total 5 ml # Voids 1 # Bowel Movements 2 Laboratory Tests 05/06/20 12:40: POC Whole Blood Glucose 224H 05/07/20 08:30: White Blood Count 14.1H, Red Blood Count 2.61L, Hemoglobin 8.2#L, Hematocrit 22.4#L, Mean Corpuscular Volume 86, Mean Corpuscular Hemoglobin 31.3H, Mean Corpuscular Hemoglobin Concent 36.4H, Red Cell Distribution Width 16.1H, Platelet Count 59L, Mean Platelet Volume 12.4H, Neutrophils (%) (Auto) , Lymphocytes (%) (Auto) , Monocytes (%) (Auto) , Eosinophils (%) (Auto) , Basophils (%) (Auto) , Differential Total Cells Counted 100, Neutrophils % (Manual) 85H, Lymphocytes % (Manual) 5L, Monocytes % (Manual) 10, Eosinophils % (Manual) 0, Basophils % (Manual) 0, Band Neutrophils 0, Platelet Estimate DecreasedL, Platelet Morphology Normal, Anisocytosis 1+, Sodium Level 142, Potassium Level 3.7, Chloride Level 108H, Carbon Dioxide Level 18L, Anion Gap 17H, Blood Urea Nitrogen 48H, Creatinine 4.8H, Estimat Glomerular Filtration Rate 10.9, Glucose Level 349H, Calcium Level 7.3L, Phosphorus Level 3.8, Magnesium Level 1.7L, Hepatitis A IgM Antibody [Pending], Hepatitis B Surface Antigen [Pending], Hepatitis B Core IgM Antibody [Pending], Hepatitis C Antibody [Pending], HIV (1&2) Antibody Rapid Negative Height (Feet): 5 Height (Inches): 7.00 Weight (Pounds): 130 Niko Waterman M.D. May 07, 2020 10:39
--- NOTE | 2020-05-07 11:41 | Surgery Progress Note ---
Surgery Progress Note Subjective Additional Comments no acute events Objective Last 24 Hour Vital Signs Date Time Temp Pulse Resp B/P (MAP) Pulse Ox O2 Delivery O2 Flow Rate FiO2 05/07/20 04:00 97.2 94 17 104/41 (62) 98 05/07/20 00:00 98.5 91 18 107/52 (70) 98 05/06/20 21:52 Room Air 05/06/20 20:00 98.9 95 18 110/51 (70) 98 05/06/20 16:20 96.8 80 19 116/68 (84) 98 05/06/20 16:00 98.1 79 19 122/54 (76) 98 05/06/20 13:40 96.4 80 16 103/45 (64) 99 05/06/20 13:25 96.4 92 16 108/51 (70) 99 05/06/20 12:00 97.6 80 18 129/64 (85) 99 I&O Intake and Output 05/06/20 05/07/20 19:00 07:00 Output Total 5 ml Balance -5 ml Output Urine Total 5 ml # Voids 1 # Bowel Movements 2 Dressing: saturated Cardiovascular: RSR Respiratory: decreased breath sounds Abdomen: soft, non-tender, present bowel sounds Extremities: other Laboratory Tests Test 05/06/20 12:40 05/07/20 08:30 POC Whole Blood Glucose 224 MG/DL (74-106) H White Blood Count 14.1 K/UL (4.8-10.8) H Red Blood Count 2.61 M/UL (4.20-5.40) L Hemoglobin 8.2 G/DL (12.0-16.0) #L Hematocrit 22.4 % (37.0-47.0) #L Mean Corpuscular Volume 86 FL (80-99) Mean Corpuscular Hemoglobin 31.3 PG (27.0-31.0) H Mean Corpuscular Hemoglobin Concent 36.4 G/DL (32.0-36.0) H Red Cell Distribution Width 16.1 % (11.6-14.8) H Platelet Count 59 K/UL (150-450) L Mean Platelet Volume 12.4 FL (6.5-10.1) H Neutrophils (%) (Auto) % (45.0-75.0) Lymphocytes (%) (Auto) % (20.0-45.0) Monocytes (%) (Auto) % (1.0-10.0) Eosinophils (%) (Auto) % (0.0-3.0) Basophils (%) (Auto) % (0.0-2.0) Differential Total Cells Counted 100 Neutrophils % (Manual) 85 % (45-75) H Lymphocytes % (Manual) 5 % (20-45) L Monocytes % (Manual) 10 % (1-10) Eosinophils % (Manual) 0 % (0-3) Basophils % (Manual) 0 % (0-2) Band Neutrophils 0 % (0-8) Platelet Estimate Decreased L Platelet Morphology Normal Anisocytosis 1+ Sodium Level 142 MMOL/L (136-145) Potassium Level 3.7 MMOL/L (3.5-5.1) Chloride Level 108 MMOL/L (98-107) H Carbon Dioxide Level 18 MMOL/L (21-32) L Anion Gap 17 mmol/L (5-15) H Blood Urea Nitrogen 48 mg/dL (7-18) H Creatinine 4.8 MG/DL (0.55-1.30) H Estimat Glomerular Filtration Rate 10.9 mL/min (>60) Glucose Level 349 MG/DL (74-106) H Calcium Level 7.3 MG/DL (8.5-10.1) L Phosphorus Level 3.8 MG/DL (2.5-4.9) Magnesium Level 1.7 MG/DL (1.8-2.4) L Hepatitis A IgM Antibody Pending Hepatitis B Surface Antigen Pending Hepatitis B Core IgM Antibody Pending Hepatitis C Antibody Pending HIV (1&2) Antibody Rapid Negative (NEGATIVE) Plan Problems: (1) UTI (urinary tract infection) (2) JYOTI (acute kidney injury) (3) Hyperkalemia (4) Leukocytosis Assessment & Plan: dvt upper extremity picc related remove picc once temp line in anticoag as per heme worsening leukocytosis on abx (5) Sepsis (6) Altered mental status (7) Sacral decubitus ulcer Assessment & Plan: 69-year-old female multiple comorbidities presented with failure to thrive lethargic altered mental status noted to have abnormal labs and have draining bilateral heel unstageable decubitus ulcers multiple skin lesions on the lower extremities as well as a sacral decubitus ulcer as well. Imaging reviewed. Patient has been eating less recently but currently is eating at the bedside though does not look like she is taking much in. Treatment plan Turn every 2 hours Offload pressure with pillows pillow on side as necessary as well as underneath calf to elevate heels Air soft mattress nutritional optimization continue IV antibiotics per infectious disease SACRUM- STAGE - UNSTAGEABLE PRESSURE ULCER MEASURES 6.0X13.0X0.2. WOUND BED WITH 80% SLOUGH AND 20% PINK GRANULATION TISSUE. NOTED FOUL ODOR RECOMMEND-CLEAN WITH SALINE. APPLY WET TO DRY DRESSINGS WITH DAKINS 0.25% DAKIN'S SOLUTION.COVER WITH OPTIFOAM DRESSING. REPLACE DRESSING DAILY. LEFT ISCHIUM-STAGE II PRESSURE ULCER MEASURES 4.5X0.5X0.2CM. PINK GRANULATION TISSUE NOTED. RECOMMEND- CLEAN WITH SALINE, PAT DRY. APPLY CALAZINE AND COVER WITH OPTIFOAM DRESSING. LEFT ANTERIOR LOW LEG-VENOUS ULCER MEASURES 8.0X2.6X0.2CM 100% YELLOW SLOUGH NOTED TO WOUND BED. RECOMMEND- CLEAN WITH SALINE, PA DRY. APPLY THERAHONEY. COVER WITH GAUZE AND SECURE WITH KERLIX. REPLACE DRESSING DAILY. LEFT HEEL- UNSTAGEABLE PRESSURE ULCER MEASURES 9.5X8.0X0.3CM. 100% MOIST BLACK ESCHAR. WITH STRONG FOUL ODOR. RECOMMEND- CLEAN WITH SALINE. APPLY WET TO DRY DRESSINGS WITH DAKINS 0.25% DAKIN'S SOLUTION. COVER WITH GAUZE, ABD PAD AND SECURE WITH KERLIX. REPLACE DAILY. RIGHT ANTERIOR LOW LEG-VENOUS ULCER MEASURES 2.5X3.0X0.2CM WITH PINK GRANULATION TISSUE. RIGHT ANTERIOR DISTAL LOW LEG -VENOUS ULCER MEASURES 1.5X0.2X0.1CM WITH PINK GRANULATION TISSUE. RECOMMEND-CLEAN WITH SALINE PAT DRY. APPLY XEROFORM GAUZE, GAUZE AND COVER WITH KERLIX. REPLACE DAILY RIGHT HEEL-DTI MEASURES 2.5X3.0CM. AREA DARK PURPLE IN COLOR AND BOGGY TO TOUCH. NO DRAINAGE NOTED. RECOMMEND- PAINT WITH CAVILON SKIN PROTECTOR, GAUZE AND WRAP WITH KERLIX. REPLACE DAILY. We will follow with recommendations thank you for letting participate patient's care Fairly numerous bubbles of soft tissue gas are seen within the subcutaneous fat and possibly the intrinsic musculature of the plantar surface of the heel. There is high STIR and decreased T1 signal within the calcaneus, and there is indistinctness of the inferior and posterior cortical margins of the calcaneus. There is some soft tissue ulceration of the plantar surface of the heel, as well as marked thinning of the subcutaneous fat overlying the calcaneal tuberosity. There is considerable edema of the plantar surface subcutaneous fat. There is also edema of the subcutaneous fat of the lateral and medial ankle. No focal discrete fluid collection to suggest drainable abscess demonstrated. Impression: Evidence of ulceration overlying the calcaneal tuberosity Soft tissue gas within the heel, as described. This may represent penetration the above, but is worrisome for infection with a gas-forming organism Abnormal signal within the posterior and mid calcaneus, highly suspicious for acute osteomyelitis (8) Decubitus ulcer of heel (9) Diabetes mellitus out of control (10) Acute on chronic renal failure (11) NSTEMI (non-ST elevated myocardial infarction) (12) High anion gap metabolic acidosis Joseph Alamo May 07, 2020 11:41
--- NOTE | 2020-05-07 11:45 | NUR ---
NURSE NOTES: Followed up with RICHARD (Jamie SERRANO, dialysis nurse) for HD orders for today.
[2020-05-07 12:00] VITALS: BP 98/51
--- NOTE | 2020-05-07 14:00 | NUR ---
NURSE NOTES: Discussed patient current status with Dr. Story at bedside. Notified of patient NPO and new dark, black, soft BM, orders for Stool OBx1. Plans to add ST and .
[2020-05-07] MEDS ORDERED: Varibar Thin Liquid powder 148gm MC PRN (14:30)
[2020-05-07] MEDS ORDERED: Varibar Pudding 230ml MC PRN (14:30)
[2020-05-07] MEDS ORDERED: Varibar Honey 250ml MC PRN (14:30)
[2020-05-07] MEDS ORDERED: Varibar Nectar 240ml MC PRN (14:30)
--- NOTE | 2020-05-07 14:51 | General Progress Note ---
Subjective Date patient seen: May 07, 2020 ROS Limited/Unobtainable: Yes Allergies: Coded Allergies: PENICILLINS (Verified Allergy, Unknown, 12/05/17) Subjective Hgb improved after transfusion of 2 u PRBC yesterday. Concern for potential black stools per RN. No danitza bleeding noted anywhere. Patient still encephalopathic, still not able to open eyes or verbalize today though moving spontaneously. Unable to obtain ROS due to ALOC Objective Last 24 Hour Vital Signs Date Time Temp Pulse Resp B/P (MAP) Pulse Ox O2 Delivery O2 Flow Rate FiO2 05/07/20 12:00 97.0 89 18 98/51 (67) 94 05/07/20 09:00 Room Air 05/07/20 08:00 96.3 93 18 102/54 (70) 94 05/07/20 04:00 97.2 94 17 104/41 (62) 98 05/07/20 00:00 98.5 91 18 107/52 (70) 98 05/06/20 21:52 Room Air 05/06/20 20:00 98.9 95 18 110/51 (70) 98 05/06/20 16:20 96.8 80 19 116/68 (84) 98 05/06/20 16:00 98.1 79 19 122/54 (76) 98 Intake and Output 05/06/20 05/07/20 19:00 07:00 Output Total 5 ml Balance -5 ml Output Urine Total 5 ml # Voids 1 # Bowel Movements 2 Laboratory Tests 05/07/20 08:30: White Blood Count 14.1H, Red Blood Count 2.61L, Hemoglobin 8.2#L, Hematocrit 22.4#L, Mean Corpuscular Volume 86, Mean Corpuscular Hemoglobin 31.3H, Mean Corpuscular Hemoglobin Concent 36.4H, Red Cell Distribution Width 16.1H, Platelet Count 59L, Mean Platelet Volume 12.4H, Neutrophils (%) (Auto) , Lymphocytes (%) (Auto) , Monocytes (%) (Auto) , Eosinophils (%) (Auto) , Basophils (%) (Auto) , Differential Total Cells Counted 100, Neutrophils % (Manual) 85H, Lymphocytes % (Manual) 5L, Monocytes % (Manual) 10, Eosinophils % (Manual) 0, Basophils % (Manual) 0, Band Neutrophils 0, Platelet Estimate DecreasedL, Platelet Morphology Normal, Anisocytosis 1+, Sodium Level 142, Potassium Level 3.7, Chloride Level 108H, Carbon Dioxide Level 18L, Anion Gap 17H, Blood Urea Nitrogen 48H, Creatinine 4.8H, Estimat Glomerular Filtration Rate 10.9, Glucose Level 349H, Calcium Level 7.3L, Phosphorus Level 3.8, Magnesium Level 1.7L, Hepatitis A IgM Antibody [Pending], Hepatitis B Surface Antigen [Pending], Hepatitis B Core IgM Antibody [Pending], Hepatitis C Antibody [Pending], HIV (1&2) Antibody Rapid Negative Height (Feet): 5 Height (Inches): 7.00 Weight (Pounds): 130 Objective General: WDWN female in NAD, A&O x 0 (baseline is A&o x 1), sleeping but arousable, not conversant, not following commands. No signs of bleeding. HEENT: Normocephalic atraumatic, nares patent and no symmetrical, mucous membranes moist CV: Regular rate regular rhythm, no murmurs, rubs, or gallops Pulm: Lungs clear to auscultation bilaterally. No wheezes, rhonchi, or rales GI: Soft, nontender, nondistended, bowel sounds present Neuro: grossly intact, no focal signs. Ext: No lower extremity edema bilaterally. LUE 1-2+ edema Skin: no rashes lesions or ulcers Msk: Moves arms spontaneously. Joints symmetrical in upper extremity and lower extremity bilaterally, no joint swelling. Lymph: No lymphadenopathy in upper extremity and lower extremity CXR 05/04/2020 Technique: One view of the chest Comparison: 03/31/2020 Findings: Interim placement of a right jugular temporary dialysis catheter in satisfactory position. No pneumothorax. The lungs and pleural spaces are clear. The heart size is normal Impression: No acute process Assessment/Plan Assessment/Plan: This is a 69-year-old female presenting with acute encephalopathy, JYOTI, acute UTI. #Acute kidney injury, suspect possible Vanc toxicity vs. component of pre renal as well. FeNA elevated suggesting intrinsic process #Renal failure on HD #Anemia - severe, no signs of bleeding #Hypokalemia #Hypomagnesemia > FeNA 3.8% suspect intrinsic -telemetry -Urine sodium, urine creatinine, urine eosinophils: reviewed -Renal ultrasound: no hydro, medical renal disease - transfuse PRN with HD - GI consult Dr. Hay - Vargas catheter for strict I's and O's -Check vanc level: in 30s - IV fluids per nephro - HD per nephro, catheter in place per xray read -Avoid nephrotoxins -Trend creatinine -Appreciate nephro consult: Dr. Waterman -mario carey PRN - d/w Sister Elisha who is medical decision maker. Confirmed ok with HD (pending consent by Nephro) #Acute metabolic encephalopathy #Underlying dementia #Malnutrition #Acute UTI #LLE osteomyelitis s/p debridement on 04/07/2020 with bone biopsy and cultures obtained. #Stage II sacral decubitus ulcer > CTH no acute abnormality >EKG reviewed -Blood cultures -Urine culture - Speech swallow eval, may need to consider PEG -Appreciate ID consult: Bola -Lora gen surgery consult: Jasmeet -Neurology consult: D/w Dr. Lee -Holding Vanc due to elevated Vanco level - Switch to doxycycline instead (04/07 - ) -Continue Cefepime (renally dosed). (04/07 - ) -Continue Flagyl (04/07 - ) -Continue Abx for 42 days -swallow eval: pending -check TSH: normal -check lactate: normal -trend troponin: normal #Acute LUE DVT, picc related - D/w Heme and surgery - remove PICC line - heparin GTT #DM2 -Hold lantus -hold metformin -SSI -accuchecks -hypoglycemia protocol #essential hypertension #hyperlipidemia -hold home amlodipine for now -hold benazepril -holding asa -holding statin FENPPX DVTPPX: HSQ Fluids: as above Diet: NPO pending swallow eval Lines: PIV, LUE PICC PT/OT: pending Code status: Full per SNF Dispo: back to SNF Reason for Continued Hospitalization: jyoti/renal failure, AMS, anemia MIPS ([employer]-based Incentive Payment System) Applicable CPT: 33606, 79586 CHECK ALL THAT ARE MET: [] Measure #5 (CHF): All ages. Prescribe DESTINEY/ARB upon discharge for patients with left ventricular systolic dysfunction. If not, the reason is clearly documented in the medical chart [] Measure #8 (CHF): All ages. Prescribe a beta jennifer upon discharge for patients with left ventricular systolic dysfunction. If not, the reason is clearly documented in the medical chart. [] Measure #47: Advance care plan or surrogate decision maker documented in the medical record. [x] Measure #130 The provider has documented, updated, or reviewed the patients current medication list and has documented it in the patients note. [x] Measure #374 (All): Send report to referring provider. [] Measure #407(Sepsis due to MSSA bacteremia): Age 18+ Patient treated with a beta-lactam antibiotic (Nafcillin, Oxacillin or Cefazolin) as definitive therapy. MEDICAL COMPLEXITYHigh complexity medical decision making (need 2/3 categories)Problem - need 4 points [x]Acute/new problem with new plan for workup (4 points, 1 max) [] Acute/new problem without additional workup (3 points, 1 max) [x] Unstable chronic problem actively being managed (2 point each, 2 max) [x] Stable chronic problem actively being managed (1 point each, 2 max) [x] Self-limited/transient process (constipation, muscle ache, etc) (1 point each, 2 max) Data - need 4 points [x] Reviewed labs/imaging studies (1 points, 2 max) [x] Independent review of imaging (EKG, xrays, etc) (2 points, 2 max) [x] Discussed case with consult/other MD/RN (2 points, 2 max) High Risk - qualify if have one of the following: [x] Severe exacerbation of acute problem, acute mental status change, IV na rcotics, monitoring drug levels (vancomycin, INR, tacrolimus etc) I spent 40 minutes on this patient's case, and 25 mins was dedicated to counseling and/or care coordination. Discussed with nephro, ID, gen surgery, neurology. Time of note may not reflect time of encounter Carlton Story M.D. May 07, 2020 14:51
[2020-05-07 16:00] VITALS: BP 118/50
[2020-05-07] MEDS: Enoxaparin 60mg Inj SUBQ SCH (16:40)
[2020-05-07] MEDS: Cefepime HCl 2 GM in D5W 55 ML IVPB SCH (17:54)
--- NOTE | 2020-05-07 19:49 | NUR ---
NURSE HAND-OFF: Important Events on Shift:BM (dark/black) x1, HD orders for today (confirmed with [facility]) Patient Status: stable Diet: NPO Pending Orders: Bedside swallow eval, Stool OB needed Pending Results/Labs:CBC 05/08 Pending MD notification:none Latest Vital Signs: Temperature 98.1 , Pulse 98 , B/P 118 /50 , Respiratory Rate 19 , O2 SAT 99 , Room Air, O2 Flow Rate 3.0 . Vital Sign Comment: none Latest Hernandez Fall Score: 70 Fall Risk: High Risk Safety Measures: Call light Within Reach, Bed Alarm Zone 1, Side Rails Side Rails x3, Bed position Low and Locked. Fall Precautions: Yellow Socks Yellow Gown Report given to Chavo RN.
[2020-05-07 20:00] VITALS: BP 104/56
--- NOTE | 2020-05-07 20:01 | NUR ---
NURSE NOTES: Followed up with RICHARD (Jamie RN, dialysis nurse), about time for HD, informed HD will be done tomorrow and that she already notified Dr. Waterman and he is okay with HD for tomorrow 05/08, will endorse to night clerk auditor.
--- NOTE | 2020-05-07 20:04 | NUR ---
NURSE NOTES: The patient is presently sleeping and does not appear to be in any active distress at this time. she is lying and sleeping on her bed.Patient has a Right IJ central line for HD in place, dressing CDI. FC in place under gravity, no output noted. Bilateral lower extremities, wrapped with kerlix, will provide skin care. P200 mattress in place. Patient remains safe. Bed in lowest position, siderails upx2 and call light within easy reach.will continue to monitor.
[2020-05-07] MEDS: Dyna-Hex 2% Top Sol 2oz TOPIC SCH (20:45)
--- NOTE | 2020-05-07 20:52 | Neurology Progress Note ---
Interim History Interim History ROS Limited/Unobtainable: Yes Interim History sp transfusion, remains lethargic Objective Physical Exam Last Vital Signs Date Time Temp Pulse Resp B/P (MAP) Pulse Ox O2 Delivery O2 Flow Rate FiO2 05/07/20 16:00 98.1 98 19 118/50 (72) 99 05/07/20 09:00 Room Air 05/05/20 16:12 3.0 99 Laboratory Tests Test 05/07/20 08:30 White Blood Count 14.1 K/UL (4.8-10.8) H Red Blood Count 2.61 M/UL (4.20-5.40) L Hemoglobin 8.2 G/DL (12.0-16.0) #L Hematocrit 22.4 % (37.0-47.0) #L Mean Corpuscular Volume 86 FL (80-99) Mean Corpuscular Hemoglobin 31.3 PG (27.0-31.0) H Mean Corpuscular Hemoglobin Concent 36.4 G/DL (32.0-36.0) H Red Cell Distribution Width 16.1 % (11.6-14.8) H Platelet Count 59 K/UL (150-450) L Mean Platelet Volume 12.4 FL (6.5-10.1) H Neutrophils (%) (Auto) % (45.0-75.0) Lymphocytes (%) (Auto) % (20.0-45.0) Monocytes (%) (Auto) % (1.0-10.0) Eosinophils (%) (Auto) % (0.0-3.0) Basophils (%) (Auto) % (0.0-2.0) Differential Total Cells Counted 100 Neutrophils % (Manual) 85 % (45-75) H Lymphocytes % (Manual) 5 % (20-45) L Monocytes % (Manual) 10 % (1-10) Eosinophils % (Manual) 0 % (0-3) Basophils % (Manual) 0 % (0-2) Band Neutrophils 0 % (0-8) Platelet Estimate Decreased L Platelet Morphology Normal Anisocytosis 1+ Sodium Level 142 MMOL/L (136-145) Potassium Level 3.7 MMOL/L (3.5-5.1) Chloride Level 108 MMOL/L (98-107) H Carbon Dioxide Level 18 MMOL/L (21-32) L Anion Gap 17 mmol/L (5-15) H Blood Urea Nitrogen 48 mg/dL (7-18) H Creatinine 4.8 MG/DL (0.55-1.30) H Estimat Glomerular Filtration Rate 10.9 mL/min (>60) Glucose Level 349 MG/DL (74-106) H Calcium Level 7.3 MG/DL (8.5-10.1) L Phosphorus Level 3.8 MG/DL (2.5-4.9) Magnesium Level 1.7 MG/DL (1.8-2.4) L Hepatitis A IgM Antibody Pending Hepatitis B Surface Antigen Pending Hepatitis B Core IgM Antibody Pending Hepatitis C Antibody Pending HIV (1&2) Antibody Rapid Negative (NEGATIVE) Impression/Recommendations Problems: (1) Sepsis (2) Hyperkalemia (3) Leukocytosis (4) Altered mental status (5) Diabetes mellitus out of control (6) Acute on chronic renal failure (7) NSTEMI (non-ST elevated myocardial infarction) (8) High anion gap metabolic acidosis (9) Sacral decubitus ulcer (10) Decubitus ulcer of heel (11) UTI (urinary tract infection) (12) JYOTI (acute kidney injury) Diagnostic Impression acute metabolic encephalopathy jyoti sepsis baseline dementia cont ivfs delirium precautions no need for mri brain cont Thee Burden MD May 07, 2020 20:52
[2020-05-08] VITALS: BP 121/63
[2020-05-08] MEDS: NovoLOG Insulin Flexpen SUBQ SCH ×4 (00:53→17:27)
[2020-05-08 04:00] VITALS: BP 118/62
--- NOTE | 2020-05-08 07:00 | NUR ---
NURSE NOTES: Received report from Mandeep Tony. Patient observed to be asleep with HOB elevated. Currently on room air, no s/sx of SOB.Distress, no c/o any pain or discomfort. Patient with IV on RW 24 asymptomatic, inplace and intact. Patient with RIJ Doyle cath for scheduled HD with [facility]. Patient with alaniz running well. Bed placed on lowest and locked, call light placed within reach and will continue to monitor.
--- NOTE | 2020-05-08 07:21 | NUR ---
NURSE NOTES: NURSE HAND-OFF: Important Events on Shift:Aphasic and was able to sleep all night long Patient Status: Diet: Pending Orders: Pending Results/Labs: Pending MD notification: Latest Vital Signs: Temperature 97.2 , Pulse 81 , B/P 118 /62 , Respiratory Rate 16 , O2 SAT 98 , Room Air, O2 Flow Rate 3.0 . Vital Sign Comment: Latest Hernandez Fall Score: 70 Fall Risk: High Risk Safety Measures: Call light Within Reach, Bed Alarm Zone 1, Side Rails Side Rails x3, Bed position Low and Locked. Fall Precautions: Yellow Socks Yellow Gown Report given to .
[2020-05-08 08:00] VITALS: BP 124/57
[2020-05-08 09:01] LABS: HEMATOCRIT 22.2 % (37.0-47.0); HEMOGLOBIN 7.8 G/DL (12.0-16.0); MEAN CORPUSCULAR VOLUME 89 FL (80-99); PLATELET COUNT 53 K/UL (150-450); RED BLOOD COUNT 2.49 M/UL (4.20-5.40); RED CELL DISTRIBUTION WIDTH 14.8 % (11.6-14.8); WHITE BLOOD COUNT 17.9 K/UL (4.8-10.8)
[2020-05-08] MEDS: Doxycycline Hyclate 100 MG in D5W 110 ML IV SCH ×2 (09:21→21:00)
[2020-05-08] MEDS: Sodium Bicarbonate 650mg Tab ORAL SCH ×3 (09:21→17:26)
[2020-05-08] MEDS: Dakin's 0.125% Soln (Quarter Strength) 16oz TOPIC SCH (09:21)
[2020-05-08] MEDS: Fluconazole 100mg tab ORAL SCH (09:21)
--- NOTE | 2020-05-08 11:34 | Nephrology Progress Note ---
Assessment/Plan Plan #JYOTI - concerns for vancomycin nephrotoxicity- r/o ATN- baseline Cr 0.8- also with volume depletion # osteomyelitis of LLE- on vanco, cefepime and flagyl #AMS #diabetes # hypertension, #hyperlipidemia # dementia. - HD today - monitor hemoglobin - renal US with no acute findings - anibiotis per ID- cefepime, fluconozole and flagyl - avoid vanco for now - monitor renal output - add epo 4k TIW Subjective ROS Limited/Unobtainable: Yes Subjective UOP 450cc yesterday repeat hemoglobin 6.4 Objective Objective Last 24 Hour Vital Signs Date Time Temp Pulse Resp B/P (MAP) Pulse Ox O2 Delivery O2 Flow Rate FiO2 05/08/20 09:00 Room Air 05/08/20 04:00 97.2 81 16 118/62 (80) 98 05/08/20 00:00 98.2 76 18 121/63 (82) 99 05/07/20 21:00 Room Air 05/07/20 20:00 97.4 88 17 104/56 (72) 99 05/07/20 16:00 98.1 98 19 118/50 (72) 99 05/07/20 12:00 97.0 89 18 98/51 (67) 94 Intake and Output 05/07/20 05/08/20 19:00 07:00 Output Total 456 ml Balance -456 ml Output Urine Total 456 ml # Bowel Movements 3 1 Laboratory Tests 05/08/20 00:34: POC Whole Blood Glucose 319H 05/08/20 06:30: POC Whole Blood Glucose 324H 05/08/20 07:57: White Blood Count 17.9H, Red Blood Count 2.49L, Hemoglobin 7.8L, Hematocrit 22.2L, Mean Corpuscular Volume 89, Mean Corpuscular Hemoglobin 31.2H, Mean Corpuscular Hemoglobin Concent 35.0, Red Cell Distribution Width 14.8, Platelet Count 53L, Mean Platelet Volume 9.9, Neutrophils (%) (Auto) , Lymphocytes (%) (Auto) , Monocytes (%) (Auto) , Eosinophils (%) (Auto) , Basophils (%) (Auto) , Neutrophils % (Manual) [Pending], Lymphocytes % (Manual) [Pending], Platelet Estimate [Pending], Platelet Morphology [Pending] Height (Feet): 5 Height (Inches): 7.00 Weight (Pounds): 130 Objective General Appearance: no apparent distress EENT: PERRL/EOMI, normal ENT inspection Neck: non-tender, normal alignment Cardiovascular: normal peripheral pulses, normal rate, regular rhythm Respiratory/Chest: chest wall non-tender, lungs clear, normal breath sounds Abdomen: normal bowel sounds, non tender Niko Waterman M.D. May 08, 2020 11:34
[2020-05-08 12:00] VITALS: BP 127/64
--- NOTE | 2020-05-08 12:13 | General Progress Note ---
Subjective ROS Limited/Unobtainable: No Allergies: Coded Allergies: PENICILLINS (Verified Allergy, Unknown, 12/05/17) Objective Last 24 Hour Vital Signs Date Time Temp Pulse Resp B/P (MAP) Pulse Ox O2 Delivery O2 Flow Rate FiO2 05/08/20 09:00 Room Air 05/08/20 08:00 96.7 86 18 124/57 (79) 99 05/08/20 04:00 97.2 81 16 118/62 (80) 98 05/08/20 00:00 98.2 76 18 121/63 (82) 99 05/07/20 21:00 Room Air 05/07/20 20:00 97.4 88 17 104/56 (72) 99 05/07/20 16:00 98.1 98 19 118/50 (72) 99 Intake and Output 05/07/20 05/08/20 19:00 07:00 Output Total 456 ml Balance -456 ml Output Urine Total 456 ml # Bowel Movements 3 1 Laboratory Tests 05/08/20 00:34: POC Whole Blood Glucose 319H 05/08/20 06:30: POC Whole Blood Glucose 324H 05/08/20 07:57: White Blood Count 17.9H, Red Blood Count 2.49L, Hemoglobin 7.8L, Hematocrit 22.2L, Mean Corpuscular Volume 89, Mean Corpuscular Hemoglobin 31.2H, Mean Corpuscular Hemoglobin Concent 35.0, Red Cell Distribution Width 14.8, Platelet Count 53L, Mean Platelet Volume 9.9, Neutrophils (%) (Auto) , Lymphocytes (%) (Auto) , Monocytes (%) (Auto) , Eosinophils (%) (Auto) , Basophils (%) (Auto) , Differential Total Cells Counted 100, Neutrophils % (Manual) 78H, Lymphocytes % (Manual) 16L, Monocytes % (Manual) 4, Eosinophils % (Manual) 2, Basophils % (Manual) 0, Band Neutrophils 0, Platelet Estimate DecreasedL, Platelet Morphology Normal, Anisocytosis 1+ Height (Feet): 5 Height (Inches): 7.00 Weight (Pounds): 130 General Appearance: no apparent distress EENT: normal ENT inspection Neck: supple Cardiovascular: normal rate Respiratory/Chest: decreased breath sounds Abdomen: hypoactive bowel sounds Extremities: non-tender Assessment/Plan Assessment/Plan: DM RF anemia thrombocytopenia GIB UTI dysphagia dc lovenox ppi cbc transfuse as needed fu swallow eval abd us to eval for liver DZ Shai Hay MD May 08, 2020 12:13
--- NOTE | 2020-05-08 13:55 | Diagnostic Imaging Report ---
US ABDOMEN Ultrasound abdomen complete INDICATION: Abdominal pain COMPARISON: None TECHNIQUE: Real-time sonographic evaluation of the abdomen is performed using grayscale and color flow. FINDINGS: The liver demonstrates normal echogenicity and measures 16.01 cm. The portal vein is patent with appropriate direction of flow. Trace pleural effusions noted. Small amount of ascites on the right abdomen. Both kidneys appear echogenic. Patent IVC and main portal vein. The aortic bifurcation and spleen are not well visualized. The common duct is not abnormally dilated. The gallbladder demonstrates no abnormal wall thickening, pericholecystic free fluid, or shadowing echogenic foci. Visualized portions of the pancreas are within normal limits. The spleen is normal in size and echogenicity. The right kidney measures 10.1 cm in length. No contour deforming masses, hydronephrosis, or shadowing echogenic stones are identified. Renal cortical echogenicity is increased. The left kidney measures 11.95 cm in length. No contour deforming masses, hydronephrosis, or shadowing echogenic stones are identified. Renal cortical echogenicity is increased. Visualized portions of the aorta and IVC are unremarkable. No free fluid is identified. IMPRESSION: No gallstones appreciated. Trace pleural effusion is demonstrated. Small amount of free fluid seen in the right abdomen. Kidneys appear echogenic without hydronephrosis or nephrolithiasis.
--- NOTE | 2020-05-08 14:09 | Surgery Progress Note ---
Surgery Progress Note Subjective Additional Comments no acute events Objective Last 24 Hour Vital Signs Date Time Temp Pulse Resp B/P (MAP) Pulse Ox O2 Delivery O2 Flow Rate FiO2 05/08/20 12:00 97.0 89 19 127/64 (85) 98 05/08/20 09:00 Room Air 05/08/20 08:00 96.7 86 18 124/57 (79) 99 05/08/20 04:00 97.2 81 16 118/62 (80) 98 05/08/20 00:00 98.2 76 18 121/63 (82) 99 05/07/20 21:00 Room Air 05/07/20 20:00 97.4 88 17 104/56 (72) 99 05/07/20 16:00 98.1 98 19 118/50 (72) 99 I&O Intake and Output 05/07/20 05/08/20 19:00 07:00 Output Total 456 ml Balance -456 ml Output Urine Total 456 ml # Bowel Movements 3 1 Dressing: saturated Cardiovascular: RSR Respiratory: decreased breath sounds Abdomen: soft, non-tender, present bowel sounds Extremities: no edema, no tenderness, other Laboratory Tests Test 05/08/20 00:34 05/08/20 06:30 05/08/20 07:57 POC Whole Blood Glucose 319 MG/DL (74-106) H 324 MG/DL (74-106) H White Blood Count 17.9 K/UL (4.8-10.8) H Red Blood Count 2.49 M/UL (4.20-5.40) L Hemoglobin 7.8 G/DL (12.0-16.0) L Hematocrit 22.2 % (37.0-47.0) L Mean Corpuscular Volume 89 FL (80-99) Mean Corpuscular Hemoglobin 31.2 PG (27.0-31.0) H Mean Corpuscular Hemoglobin Concent 35.0 G/DL (32.0-36.0) Red Cell Distribution Width 14.8 % (11.6-14.8) Platelet Count 53 K/UL (150-450) L Mean Platelet Volume 9.9 FL (6.5-10.1) Neutrophils (%) (Auto) % (45.0-75.0) Lymphocytes (%) (Auto) % (20.0-45.0) Monocytes (%) (Auto) % (1.0-10.0) Eosinophils (%) (Auto) % (0.0-3.0) Basophils (%) (Auto) % (0.0-2.0) Differential Total Cells Counted 100 Neutrophils % (Manual) 78 % (45-75) H Lymphocytes % (Manual) 16 % (20-45) L Monocytes % (Manual) 4 % (1-10) Eosinophils % (Manual) 2 % (0-3) Basophils % (Manual) 0 % (0-2) Band Neutrophils 0 % (0-8) Platelet Estimate Decreased L Platelet Morphology Normal Anisocytosis 1+ Plan Problems: (1) UTI (urinary tract infection) (2) JYOTI (acute kidney injury) (3) Hyperkalemia (4) Leukocytosis Assessment & Plan: dvt upper extremity picc related remove picc once temp line in anticoag as per heme worsening leukocytosis on abx (5) Sepsis (6) Altered mental status (7) Sacral decubitus ulcer Assessment & Plan: 69-year-old female multiple comorbidities presented with failure to thrive lethargic altered mental status noted to have abnormal labs and have draining bilateral heel unstageable decubitus ulcers multiple skin lesions on the lower extremities as well as a sacral decubitus ulcer as well. Imaging reviewed. Patient has been eating less recently but currently is eating at the bedside though does not look like she is taking much in. Treatment plan Turn every 2 hours Offload pressure with pillows pillow on side as necessary as well as underneath calf to elevate heels Air soft mattress nutritional optimization continue IV antibiotics per infectious disease SACRUM- STAGE - UNSTAGEABLE PRESSURE ULCER MEASURES 6.0X13.0X0.2. WOUND BED WITH 80% SLOUGH AND 20% PINK GRANULATION TISSUE. NOTED FOUL ODOR RECOMMEND-CLEAN WITH SALINE. APPLY WET TO DRY DRESSINGS WITH DAKINS 0.25% DAKIN'S SOLUTION.COVER WITH OPTIFOAM DRESSING. REPLACE DRESSING DAILY. LEFT ISCHIUM-STAGE II PRESSURE ULCER MEASURES 4.5X0.5X0.2CM. PINK GRANULATION TISSUE NOTED. RECOMMEND- CLEAN WITH SALINE, PAT DRY. APPLY CALAZINE AND COVER WITH OPTIFOAM DRESSING. LEFT ANTERIOR LOW LEG-VENOUS ULCER MEASURES 8.0X2.6X0.2CM 100% YELLOW SLOUGH NOTED TO WOUND BED. RECOMMEND- CLEAN WITH SALINE, PA DRY. APPLY THERAHONEY. COVER WITH GAUZE AND SECURE WITH KERLIX. REPLACE DRESSING DAILY. LEFT HEEL- UNSTAGEABLE PRESSURE ULCER MEASURES 9.5X8.0X0.3CM. 100% MOIST BLACK ESCHAR. WITH STRONG FOUL ODOR. RECOMMEND- CLEAN WITH SALINE. APPLY WET TO DRY DRESSINGS WITH DAKINS 0.25% DAKIN'S SOLUTION. COVER WITH GAUZE, ABD PAD AND SECURE WITH KERLIX. REPLACE DAILY. RIGHT ANTERIOR LOW LEG-VENOUS ULCER MEASURES 2.5X3.0X0.2CM WITH PINK GRANULATION TISSUE. RIGHT ANTERIOR DISTAL LOW LEG -VENOUS ULCER MEASURES 1.5X0.2X0.1CM WITH PINK GRANULATION TISSUE. RECOMMEND-CLEAN WITH SALINE PAT DRY. APPLY XEROFORM GAUZE, GAUZE AND COVER WITH KERLIX. REPLACE DAILY RIGHT HEEL-DTI MEASURES 2.5X3.0CM. AREA DARK PURPLE IN COLOR AND BOGGY TO TOUCH. NO DRAINAGE NOTED. RECOMMEND- PAINT WITH CAVILON SKIN PROTECTOR, GAUZE AND WRAP WITH KERLIX. REP LACE DAILY. We will follow with recommendations thank you for letting participate patient's care Fairly numerous bubbles of soft tissue gas are seen within the subcutaneous fat and possibly the intrinsic musculature of the plantar surface of the heel. T here is high STIR and decreased T1 signal within the calcaneus, and there is indistinctness of the inferior and posterior cortical margins of the calcaneus. There is some soft tissue ulceration of the plantar surface of the heel, as well as marked thinning of the subcutaneous fat overlying the calcaneal tuberosity. There is considerable edema of the plantar surface subcutaneous fat. There is also edema of the subcutaneous fat of the lateral and medial ankle. No focal discrete fluid collection to suggest drainable abscess demonstrated. Impression: Evidence of ulceration overlying the calcaneal tuberosity Soft tissue gas within the heel, as described. This may represent penetration the above, but is worrisome for infection with a gas-forming organism Abnormal signal within the posterior and mid calcaneus, highly suspicious for acute osteomyelitis (8) Decubitus ulcer of heel (9) Diabetes mellitus out of control (10) Acute on chronic renal failure (11) NSTEMI (non-ST elevated myocardial infarction) (12) High anion gap metabolic acidosis Joseph Alamo May 08, 2020 14:09
[2020-05-08 14:42] LABS: HEMATOCRIT 18.2 % (37.0-47.0); MEAN CORPUSCULAR VOLUME 89 FL (80-99); PLATELET COUNT 55 K/UL (150-450); RED BLOOD COUNT 2.06 M/UL (4.20-5.40); RED CELL DISTRIBUTION WIDTH 14.9 % (11.6-14.8); WHITE BLOOD COUNT 14.6 K/UL (4.8-10.8)
[2020-05-08 14:44] LABS: HEMOGLOBIN 6.4 G/DL (12.0-16.0)
[2020-05-08 15:00] LABS: CALCIUM 7.3 MG/DL (8.5-10.1); CREATININE 5.5 MG/DL (0.55-1.30); PHOSPHORUS 3.6 MG/DL (2.5-4.9)
[2020-05-08 16:00] VITALS: BP 125/53
--- NOTE | 2020-05-08 16:52 | NUR ---
Received order from Dr. Hay to transfuse 2 unit of prbc to patient. PRBC verified with another RN. VS stable at 96.1, 70, 122/56. Addendum: 05/08/20 at 1951 by Veronique Luna RN nurses jerod
--- NOTE | 2020-05-08 17:10 | NUR ---
NURSE NOTES: Observed patient after 15 mins of transfusing blood, no ASE observed. VS stable at 96.4, 81, 121/92. Will continue to monitor.
[2020-05-08] MEDS: Cefepime HCl 2 GM in D5W 55 ML IVPB SCH (18:00)
--- NOTE | 2020-05-08 18:00 | NUR ---
NURSE NOTES: 1800 Cefepime held d/t transfusion of prbc.
--- NOTE | 2020-05-08 18:27 | Infectious Diseases Prog Note ---
Assessment/Plan Assessment/Plan ASSESSMENT AND PLAN: 1. 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 sepsis, leukocytosis, fungal uti, JYOTI, blood cultures negative, chest x-ray negative - cefepime, doxycycline, flagyl - day # -s/p diflucan - monitor labs - wound management per surgery 2. Acute renal failure. Dialysis. 3. Diabetes. 4. Hypertension. 5. Dyslipidemia. 6. Diabetes and hypertension treatment per primary care team. 7. Anemia. 8. Wound care per Surgery. 9. Allergic to penicillin. 10. Social history is negative. 11. Family history is noncontributory. 12. MAR is noted. 13. Case discussed with RN. Subjective Constitutional: Reports: fatigue; Denies: fever HEENT: Denies: congestion Respiratory: Denies: shortness of breath Cardiovascular: Denies: chest pain Gastrointestinal/Abdominal: Denies: nausea, vomiting, diarrhea Genitourinary: Reports: other - no alaniz Neurologic: Denies: headache Psychiatric: Denies: depression Skin: Denies: rash Hematologic: Denies: bleeding Musculoskeletal: Denies: pain Allergies: Coded Allergies: PENICILLINS (Verified Allergy, Unknown, 12/05/17) Objective Last 24 Hour Vital Signs Date Time Temp Pulse Resp B/P (MAP) Pulse Ox O2 Delivery O2 Flow Rate FiO2 05/08/20 16:00 96.8 88 19 125/53 (77) 98 05/08/20 12:00 97.0 89 19 127/64 (85) 98 05/08/20 09:00 Room Air 05/08/20 08:00 96.7 86 18 124/57 (79) 99 05/08/20 04:00 97.2 81 16 118/62 (80) 98 05/08/20 00:00 98.2 76 18 121/63 (82) 99 05/07/20 21:00 Room Air 05/07/20 20:00 97.4 88 17 104/56 (72) 99 Height (Feet): 5 Height (Inches): 7.00 Weight (Pounds): 130 General Appearance: no acute distress HEENT: normocephalic, atraumatic, anicteric, mucous membranes moist Respiratory/Chest: crackles/rales, rhonchi - bilaterally Cardiovascular: normal rate, regular rhythm, no gallop/murmur, no JVD Abdomen: normal bowel sounds, soft, non tender, no organomegaly, non distended Genitourinary: other - no alaniz Extremities: no cyanosis Skin: no rash 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 No pneumothorax. The lungs and pleural spaces are clear. The heart size is normal Impression: No acute process Microbiology Date/Time Source Procedure Growth Status 05/01/20 15:50 Urine,Clean Catch Urine Culture - Preliminary Yeast Species Resulted 05/01/20 15:30 Rectum - Final NO CARBAPENEM-RESISTANT ENTEROBACTERI... Complete 05/01/20 15:30 Nasal Nares MRSA Culture - Final NO METHICILLIN RESISTANT STAPH AUREUS... Complete 05/01/20 07:10 Blood Blood Culture - Final NO GROWTH AFTER 5 DAYS Complete Laboratory Tests Test 05/08/20 00:34 05/08/20 06:30 05/08/20 07:57 05/08/20 14:20 POC Whole Blood Glucose 319 MG/DL (74-106) H 324 MG/DL (74-106) H White Blood Count 17.9 K/UL (4.8-10.8) H 14.6 K/UL (4.8-10.8) H Red Blood Count 2.49 M/UL (4.20-5.40) L 2.06 M/UL (4.20-5.40) L Hemoglobin 7.8 G/DL (12.0-16.0) L 6.4 G/DL (12.0-16.0) *L Hematocrit 22.2 % (37.0-47.0) L 18.2 % (37.0-47.0) L Mean Corpuscular Volume 89 FL (80-99) 89 FL (80-99) Mean Corpuscular Hemoglobin 31.2 PG (27.0-31.0) H 31.1 PG (27.0-31.0) H Mean Corpuscular Hemoglobin Concent 35.0 G/DL (32.0-36.0) 35.2 G/DL (32.0-36.0) Red Cell Distribution Width 14.8 % (11.6-14.8) 14.9 % (11.6-14.8) H Platelet Count 53 K/UL (150-450) L 55 K/UL (150-450) L Mean Platelet Volume 9.9 FL (6.5-10.1) 10.8 FL (6.5-10.1) H Neutrophils (%) (Auto) % (45.0-75.0) % (45.0-75.0) Lymphocytes (%) (Auto) % (20.0-45.0) % (20.0-45.0) Monocytes (%) (Auto) % (1.0-10.0) % (1.0-10.0) Eosinophils (%) (Auto) % (0.0-3.0) % (0.0-3.0) Basophils (%) (Auto) % (0.0-2.0) % (0.0-2.0) Differential Total Cells Counted 100 100 Neutrophils % (Manual) 78 % (45-75) H 78 % (45-75) H Lymphocytes % (Manual) 16 % (20-45) L 15 % (20-45) L Monocytes % (Manual) 4 % (1-10) 7 % (1-10) Eosinophils % (Manual) 2 % (0-3) 0 % (0-3) Basophils % (Manual) 0 % (0-2) 0 % (0-2) Band Neutrophils 0 % (0-8) 0 % (0-8) Platelet Estimate Decreased L Decreased L Platelet Morphology Normal Normal Anisocytosis 1+ 1+ Hypochromasia 1+ Sodium Level 142 MMOL/L (136-145) Potassium Level 3.0 MMOL/L (3.5-5.1) L Chloride Level 111 MMOL/L (98-107) H Carbon Dioxide Level 18 MMOL/L (21-32) L Anion Gap 13 mmol/L (5-15) Blood Urea Nitrogen 64 mg/dL (7-18) H Creatinine 5.5 MG/DL (0.55-1.30) H Estimat Glomerular Filtration Rate 9.3 mL/min (>60) Glucose Level 345 MG/DL (74-106) H Calcium Level 7.3 MG/DL (8.5-10.1) L Phosphorus Level 3.6 MG/DL (2.5-4.9) Magnesium Level 1.7 MG/DL (1.8-2.4) L Test 05/08/20 17:02 POC Whole Blood Glucose 286 MG/DL (74-106) H Current Medications Medications (Trade) Dose Ordered Sig/Enrike Route PRN Reason Start Time Stop Time Status Last Admin Dose Admin Barium Sulfate (Varibar Honey) 250 ml NOW PRN RAD 05/07/20 14:30 05/10/20 14:29 Barium Sulfate (Varibar [place]) 240 ml NOW PRN RAD 05/07/20 14:30 05/10/20 14:29 Barium Sulfate (Varibar Pudding) 230 ml NOW PRN RAD 05/07/20 14:30 05/10/20 14:29 Barium Sulfate (Varibar Thin Liquid powder) 148 gm NOW PRN RAD 05/07/20 14:30 05/10/20 14:29 Bisacodyl (Dulcolax) 10 mg DAILYPRN PRN RECTAL Constipation 05/01/20 20:30 07/30/20 20:29 Cefepime HCl 2 gm/ Dextrose 55 ml @ 110 mls/hr Q24H IVPB 05/02/20 18:00 05/09/20 17:59 05/07/20 17:54 Chlorhexidine Gluconate (Holli-Hex 2%) 1 applic 2XW TOPIC 05/06/20 09:00 08/04/20 08:59 05/06/20 08:30 Chlorhexidine Gluconate (Holli-Hex 2%) 1 applic DAILY@2000 TOPIC 05/02/20 20:00 07/31/20 19:59 05/07/20 20:45 Dextrose (Dextrose 50%) 25 ml Q30M PRN IV Hypoglycemia 05/01/20 20:30 07/30/20 20:29 Dextrose (Dextrose 50%) 50 ml Q30M PRN IV Hypoglycemia 05/01/20 20:30 07/30/20 20:29 Doxycycline Hyclate 100 mg/ Dextrose 110 ml @ 110 mls/hr Q12HR IV 05/02/20 21:00 05/09/20 20:59 05/08/20 09:21 Fluconazole (Diflucan) 100 mg DAILY ORAL 05/04/20 09:00 05/11/20 08:59 05/08/20 09:21 Insulin Aspart (NovoLOG) Q6HR SUBQ 05/03/20 00:00 08/01/20 00:00 05/08/20 17:27 Lorazepam (Ativan 2mg/ml 1ml) 0.5 mg Q4H PRN IV For Anxiety 05/01/20 20:30 05/08/20 20:29 Metronidazole 100 ml @ 100 mls/hr Q8H IVPB 05/04/20 00:00 05/11/20 00:00 05/08/20 15:57 Ondansetron HCl (Zofran) 4 mg Q6H PRN IVP Nausea & Vomiting 05/01/20 20:30 05/31/20 20:29 Pantoprazole (Protonix) 40 mg EVERY 12 HOURS IVP 05/08/20 21:00 06/07/20 20:59 Sodium Hypochlorite (Dakin's Quarter Strength) 1 applic DAILY TOPIC 05/05/20 09:00 06/04/20 08:59 05/08/20 09:21 Sodium Bicarbonate (NaHCO3) 650 mg THREE TIMES A DAY ORAL 05/02/20 18:00 06/01/20 17:59 05/08/20 17:26 Elyse Leung MD May 08, 2020 18:27
--- NOTE | 2020-05-08 19:15 | General Progress Note ---
Subjective Date patient seen: May 08, 2020 ROS Limited/Unobtainable: Yes Allergies: Coded Allergies: PENICILLINS (Verified Allergy, Unknown, 12/05/17) Subjective GI consulted, pending recs for reported melena. No bleeding otherwise noted. Patient still encephalopathic, still not able to open eyes or verbalize today though moving spontaneously. Unable to obtain ROS due to ALOC Objective Last 24 Hour Vital Signs Date Time Temp Pulse Resp B/P (MAP) Pulse Ox O2 Delivery O2 Flow Rate FiO2 05/08/20 16:00 96.8 88 19 125/53 (77) 98 05/08/20 12:00 97.0 89 19 127/64 (85) 98 05/08/20 09:00 Room Air 05/08/20 08:00 96.7 86 18 124/57 (79) 99 05/08/20 04:00 97.2 81 16 118/62 (80) 98 05/08/20 00:00 98.2 76 18 121/63 (82) 99 05/07/20 21:00 Room Air 05/07/20 20:00 97.4 88 17 104/56 (72) 99 Intake and Output 05/07/20 05/08/20 19:00 07:00 Output Total 456 ml Balance -456 ml Output Urine Total 456 ml # Bowel Movements 3 1 Laboratory Tests 05/08/20 00:34: POC Whole Blood Glucose 319H 05/08/20 06:30: POC Whole Blood Glucose 324H 05/08/20 07:57: White Blood Count 17.9H, Red Blood Count 2.49L, Hemoglobin 7.8L, Hematocrit 22.2L, Mean Corpuscular Volume 89, Mean Corpuscular Hemoglobin 31.2H, Mean Corpuscular Hemoglobin Concent 35.0, Red Cell Distribution Width 14.8, Platelet Count 53L, Mean Platelet Volume 9.9, Neutrophils (%) (Auto) , Lymphocytes (%) (Auto) , Monocytes (%) (Auto) , Eosinophils (%) (Auto) , Basophils (%) (Auto) , Differential Total Cells Counted 100, Neutrophils % (Manual) 78H, Lymphocytes % (Manual) 16L, Monocytes % (Manual) 4, Eosinophils % (Manual) 2, Basophils % (Manual) 0, Band Neutrophils 0, Platelet Estimate DecreasedL, Platelet Morphology Normal, Anisocytosis 1+ 05/08/20 14:20: White Blood Count 14.6H, Red Blood Count 2.06L, Hemoglobin 6.4*L, Hematocrit 18.2L, Mean Corpuscular Volume 89, Mean Corpuscular Hemoglobin 31.1H, Mean Corpuscular Hemoglobin Concent 35.2, Red Cell Distribution Width 14.9H, Platelet Count 55L, Mean Platelet Volume 10.8H, Neutrophils (%) (Auto) , Lymphocytes (%) (Auto) , Monocytes (%) (Auto) , Eosinophils (%) (Auto) , Basophils (%) (Auto) , Differential Total Cells Counted 100, Neutrophils % (Manual) 78H, Lymphocytes % (Manual) 15L, Monocytes % (Manual) 7, Eosinophils % (Manual) 0, Basophils % (Manual) 0, Band Neutrophils 0, Platelet Estimate DecreasedL, Platelet Morphology Normal, Anisocytosis 1+, Hypochromasia 1+, Sodium Level 142, Potassium Level 3.0L, Chloride Level 111H, Carbon Dioxide Level 18L, Anion Gap 13, Blood Urea Nitrogen 64H, Creatinine 5.5H, Estimat Glomerular Filtration Rate 9.3, Glucose Level 345H, Calcium Level 7.3L, Phosphorus Level 3.6, Magnesium Level 1.7L 05/08/20 17:02: POC Whole Blood Glucose 286H Height (Feet): 5 Height (Inches): 7.00 Weight (Pounds): 130 Objective General: WDWN female in NAD, A&O x 0 (baseline is A&o x 1), sleeping but arousable, not conversant, not following commands. No signs of bleeding. HEENT: Normocephalic atraumatic, nares patent and no symmetrical, mucous membranes moist CV: Regular rate regular rhythm, no murmurs, rubs, or gallops Pulm: Lungs clear to auscultation bilaterally. No wheezes, rhonchi, or rales GI: Soft, nontender, nondistended, bowel sounds present Neuro: grossly intact, no focal signs. Ext: No lower extremity edema bilaterally. LUE 1+ edema Skin: no rashes lesions or ulcers Msk: Moves arms spontaneously. Joints symmetrical in upper extremity and lower extremity bilaterally, no joint swelling. Lymph: No lymphadenopathy in upper extremity and lower extremity CXR 05/04/2020 Technique: One view of the chest Comparison: 03/31/2020 Findings: Interim placement of a right jugular temporary dialysis catheter in satisfactory position. No pneumothorax. The lungs and pleural spaces are clear. The heart size is normal Impression: No acute process Assessment/Plan Assessment/Plan: This is a 69-year-old female presenting with acute encephalopathy, JYOTI, acute UTI. #Acute kidney injury, suspect possible Vanc toxicity vs. component of pre renal as well. FeNA elevated suggesting intrinsic process #Renal failure on HD #Anemia - severe, no signs of bleeding #Hypokalemia #Hypomagnesemia > FeNA 3.8% suspect intrinsic -telemetry -Urine sodium, urine creatinine, urine eosinophils: reviewed -Renal ultrasound: no hydro, medical renal disease - transfuse PRN with HD - GI consult Dr. Hay, pending recs - Vargas catheter for strict I's and O's -Check vanc level: in 30s - IV fluids per nephro - HD per nephro, catheter in place per xray read -Avoid nephrotoxins -Trend creatinine -Appreciate nephro consult: Dr. Waterman -mario carey PRN - d/w Sister Elisha who is medical decision maker. Confirmed ok with HD (pending consent by Nephro) #Acute metabolic encephalopathy #Underlying dementia #Malnutrition #Acute UTI #LLE osteomyelitis s/p debridement on 04/07/2020 with bone biopsy and cultures obtained. #Stage II sacral decubitus ulcer > CTH no acute abnormality >EKG reviewed -Blood cultures -Urine culture - Speech swallow eval, may need to consider PEG -Appreciate ID consult: Riveraaspshama -Appreciate gen surgery consult: Jasmeet -Neurology consult: D/w Dr. Lee -Holding Vanc due to elevated Vanco level - Switch to doxycycline instead (04/07 - ) -Continue Cefepime (renally dosed). (04/07 - ) -Continue Flagyl (04/07 - ) -Continue Abx for 42 days -swallow eval: pending -check TSH: normal -check lactate: normal -trend troponin: normal #Acute LUE DVT, picc related - D/w Heme and surgery - remove PICC line - heparin GTT #DM2 -Hold lantus -hold metformin -SSI -accuchecks -hypoglycemia protocol #essential hypertension #hyperlipidemia -hold home amlodipine for now -hold benazepril -holding asa -holding statin FENPPX DVTPPX: HSQ Fluids: as above Diet: NPO pending swallow eval Lines: PIV, LUE PICC PT/OT: pending Code status: Full per SNF Dispo: back to SNF Reason for Continued Hospitalization: jyoti/renal failure, AMS, anemia MIPS ([employer]-based Incentive Payment System) Applicable CPT: 81437, 25479 CHECK ALL THAT ARE MET: [] Measure #5 (CHF): All ages. Prescribe DESTINEY/ARB upon discharge for patients with left ventricular systolic dysfunction. If not, the reason is clearly documented in the medical chart [] Measure #8 (CHF): All ages. Prescribe a beta jennifer upon discharge for patients with left ventricular systolic dysfunction. If not, the reason is aline chris documented in the medical chart. [] Measure #47: Advance care plan or surrogate decision maker documented in the medical record. [x] Measure #130 The provider has documented, updated, or reviewed the patients current medication list and has documented it in the patients note. [x] Measure #374 (All): Send report to referring provider. [] Measure #407(Sepsis due to MSSA bacteremia): Age 18+ Patient treated with a beta-lactam antibiotic (Nafcillin, Oxacillin or Cefazolin) as definitive therapy. MEDICAL COMPLEXITYHigh complexity medical decision making (need 2/3 categories)Problem - need 4 points [x]Acute/new problem with new plan for workup (4 points, 1 max) [] Acute/new problem without additional workup (3 points, 1 max) [x] Unstable chronic problem actively being managed (2 point each, 2 max) [x] Stable chronic problem actively being managed (1 point each, 2 max) [x] Self-limited/transient process (constipation, muscle ache, etc) (1 point each, 2 max) Data - need 4 points [x] Reviewed labs/imaging studies (1 points, 2 max) [x] Independent review of imaging (EKG, xrays, etc) (2 points, 2 max) [x] Discussed case with consult/other MD/RN (2 points, 2 max) High Risk - qualify if have one of the following: [x] Severe exacerbation of acute problem, acute mental status change, IV narcotics, monitoring drug levels (vancomycin, INR, tacrolimus etc) I spent 36 minutes on this patient's case, and 20 mins was dedicated to counseling and/or care coordination. Discussed with nephro, ID, gen surgery, neurology. Time of note may not reflect time of encounter Carlton Story M.D. May 08, 2020 19:15
--- NOTE | 2020-05-08 19:19 | Neurology Progress Note ---
Interim History Interim History ROS Limited/Unobtainable: Yes Interim History remains encephalopathic Objective Physical Exam Last Vital Signs Date Time Temp Pulse Resp B/P (MAP) Pulse Ox O2 Delivery O2 Flow Rate FiO2 05/08/20 16:00 96.8 88 19 125/53 (77) 98 05/08/20 09:00 Room Air 05/05/20 16:12 3.0 99 Laboratory Tests Test 05/08/20 00:34 05/08/20 06:30 05/08/20 07:57 05/08/20 14:20 POC Whole Blood Glucose 319 MG/DL (74-106) H 324 MG/DL (74-106) H White Blood Count 17.9 K/UL (4.8-10.8) H 14.6 K/UL (4.8-10.8) H Red Blood Count 2.49 M/UL (4.20-5.40) L 2.06 M/UL (4.20-5.40) L Hemoglobin 7.8 G/DL (12.0-16.0) L 6.4 G/DL (12.0-16.0) *L Hematocrit 22.2 % (37.0-47.0) L 18.2 % (37.0-47.0) L Mean Corpuscular Volume 89 FL (80-99) 89 FL (80-99) Mean Corpuscular Hemoglobin 31.2 PG (27.0-31.0) H 31.1 PG (27.0-31.0) H Mean Corpuscular Hemoglobin Concent 35.0 G/DL (32.0-36.0) 35.2 G/DL (32.0-36.0) Red Cell Distribution Width 14.8 % (11.6-14.8) 14.9 % (11.6-14.8) H Platelet Count 53 K/UL (150-450) L 55 K/UL (150-450) L Mean Platelet Volume 9.9 FL (6.5-10.1) 10.8 FL (6.5-10.1) H Neutrophils (%) (Auto) % (45.0-75.0) % (45.0-75.0) Lymphocytes (%) (Auto) % (20.0-45.0) % (20.0-45.0) Monocytes (%) (Auto) % (1.0-10.0) % (1.0-10.0) Eosinophils (%) (Auto) % (0.0-3.0) % (0.0-3.0) Basophils (%) (Auto) % (0.0-2.0) % (0.0-2.0) Differential Total Cells Counted 100 100 Neutrophils % (Manual) 78 % (45-75) H 78 % (45-75) H Lymphocytes % (Manual) 16 % (20-45) L 15 % (20-45) L Monocytes % (Manual) 4 % (1-10) 7 % (1-10) Eosinophils % (Manual) 2 % (0-3) 0 % (0-3) Basophils % (Manual) 0 % (0-2) 0 % (0-2) Band Neutrophils 0 % (0-8) 0 % (0-8) Platelet Estimate Decreased L Decreased L Platelet Morphology Normal Normal Anisocytosis 1+ 1+ Hypochromasia 1+ Sodium Level 142 MMOL/L (136-145) Potassium Level 3.0 MMOL/L (3.5-5.1) L Chloride Level 111 MMOL/L (98-107) H Carbon Dioxide Level 18 MMOL/L (21-32) L Anion Gap 13 mmol/L (5-15) Blood Urea Nitrogen 64 mg/dL (7-18) H Creatinine 5.5 MG/DL (0.55-1.30) H Estimat Glomerular Filtration Rate 9.3 mL/min (>60) Glucose Level 345 MG/DL (74-106) H Calcium Level 7.3 MG/DL (8.5-10.1) L Phosphorus Level 3.6 MG/DL (2.5-4.9) Magnesium Level 1.7 MG/DL (1.8-2.4) L Test 05/08/20 17:02 POC Whole Blood Glucose 286 MG/DL (74-106) H Impression/Recommendations Problems: (1) Sepsis (2) Hyperkalemia (3) Leukocytosis (4) Altered mental status (5) Diabetes mellitus out of control (6) Acute on chronic renal failure (7) NSTEMI (non-ST elevated myocardial infarction) (8) High anion gap metabolic acidosis (9) Sacral decubitus ulcer (10) Decubitus ulcer of heel (11) UTI (urinary tract infection) (12) JYOTI (acute kidney injury) Diagnostic Impression acute metabolic encephalopathy jyoti sepsis baseline dementia cont ivfs delirium precautions no need for mri brain cont Thee Burden MD May 08, 2020 19:19
--- NOTE | 2020-05-08 19:40 | NUR ---
NURSE HAND-OFF: Important Events on Shift:TRANSFUSE 2U PRBC Patient Status: STABLE Diet: NPO Pending Orders: OB STOOL Pending Results/Labs:N/A Pending MD notification:N/A Latest Vital Signs: Temperature 96.8 , Pulse 88 , B/P 125 /53 , Respiratory Rate 19 , O2 SAT 98 , Room Air, O2 Flow Rate 3.0 . Vital Sign Comment: STABLE Latest Hernandez Fall Score: 70 Fall Risk: High Risk Safety Measures: Call light Within Reach, Bed Alarm Zone 1, Side Rails Side Rails x3, Bed position Low and Locked. Fall Precautions: Yellow Socks Yellow Gown Report given to ZACH Tony.
--- NOTE | 2020-05-08 19:45 | NUR ---
NURSE NOTES: The patient is aphasic, awake and doesn't seem to be in any active distress at this time. She is room air and saturating well. The patient is scheduled for dialysis today with VIP dialysis as indicated.Patient has a Right IJ central line for HD in place, dressing CDI. FC in place under gravity, no output noted. Bilateral lower extremities, wrapped with Kerlix, will provide skin care. P200 mattress in place. Patient remains safe. Bed in lowest position, siderails upx2 and call light within easy reach.will continue to monitor.
[2020-05-08 20:00] VITALS: BP 126/70
[2020-05-08] MEDS: Dyna-Hex 2% Top Sol 2oz TOPIC SCH (20:23)
--- NOTE | 2020-05-08 20:30 | NUR ---
NURSE NOTES: The patient complected the 1st bag of PRBC transfusion and is stable. The is no evidence of a transfusion reaction noted. Will continue with 2nd bag PRBC as indicated.
[2020-05-08] MEDS: Pantoprazole Inj IVP SCH (20:37)
[2020-05-09] VITALS: BP 132/74
--- NOTE | 2020-05-09 00:51 | NUR ---
NURSE NOTES: The patient is undergoing dialysis and the insulin is on hold.The patient also remained NPO
--- NOTE | 2020-05-09 01:55 | NUR ---
NURSE NOTES: The patient completed dialysis and 2 liters of fluids was taken out.and is alert and stable. The vitals are also stable' will continue to monitor as indicated.
[2020-05-09] MEDS: NovoLOG Insulin Flexpen SUBQ SCH ×5 (06:00→23:31)
[2020-05-09 07:00] VITALS: BP 141/74
--- NOTE | 2020-05-09 08:01 | NUR ---
NURSE HAND-OFF: Important Events on Shift:Awake, Apahsic Patient Status: Diet: Pending Orders: Pending Results/Labs: Pending MD notification: Latest Vital Signs: Temperature 98.0 , Pulse 75 , B/P 141 /74 , Respiratory Rate 20 , O2 SAT 94 , Room Air, O2 Flow Rate 3.0 . Vital Sign Comment: Latest Hernandez Fall Score: 70 Fall Risk: High Risk Safety Measures: Call light Within Reach, Bed Alarm Zone 1, Side Rails Side Rails x3, Bed position Low and Locked. Fall Precautions: Yellow Socks Yellow Gown Report given to .
[2020-05-09] MEDS: Dakin's 0.125% Soln (Quarter Strength) 16oz TOPIC SCH (08:05)
[2020-05-09] MEDS: Pantoprazole Inj IVP SCH ×2 (08:06→23:15)
[2020-05-09] MEDS: Sodium Bicarbonate 650mg Tab ORAL SCH ×3 (08:06→17:03)
[2020-05-09] MEDS: Doxycycline Hyclate 100 MG in D5W 110 ML IV SCH ×2 (08:06→23:15)
--- NOTE | 2020-05-09 08:46 | NUR ---
CHARGE NURSE NOTE: Pt is on NPO (8 days), no IV fluids (HD patient). swallow eval done 05/04, ST recommended pureed diet, (not ordered). A new order was placed on 05/07/20 for swallow eval. was called for clarification.
--- NOTE | 2020-05-09 09:58 | Hematology/Onc Progress Note ---
Assessment/Plan Assessment/Plan Assessment and Recs # Left upper extremity axillary, subclavian, and brachial venous thrombosis --> heparin gtt was started-->now changed to lovenox as supertherapeutic->now HELD due to severe anemia --> consider eliquis or coumadin once closer to dc --> patient does have eleno/ckd, thus agent needed not affected by renal function --> monitor for bleed # Leukocytosis likely secondary to left heel and foot osteomyelitis. --> likely due to infected wounds, heel ulcerations --> ABX flucon/flagyl/cefepime --> Peripheral smear, reviewed, hold off flow for now --> elev inflammatory markers --> WBC 35-->22-->18-->14-->13-->11.4->>>13-->17 # Anemia due to underlying chronic disease. --> Continue to closely monitor for improvement. --> Anemia w/u has been reviewed. Will trend cbc daily. --> Hgb goal >7 -> hgb 12-->10.7->9.4-->9.5->10-->7.3-->5.7-->6.2-->8-->6.4 --> 2 units 05/07 --> anemia panel reviewed before # Hyperkalemia. Given Kayexalate. --> Improved # Diabetic ketoacidosis. --> per before, improved # ESRD --> hd with line inserted # Shortness of breath in past with dka # Dvt ppx --> scds The time the note was entered does not necessarily correspond to the time the patient was seen. Subjective Allergies: Coded Allergies: PENICILLINS (Verified Allergy, Unknown, 12/05/17) All Systems: reviewed and negative except above Subjective 05/05 hgb 7.3 this am, plts lower, no bleeding, ptt elev, will hold off hep gtt 05/06 labs noted, no bleeding, now on lovenox sq, sis somnolent in am 05/07 is on lovenox sq, is s/p transfusion, labs noted, on abx 05/09 anticoag is held, pending for cbc today, labs noted Objective Objective Current Medications Medications (Trade) Dose Ordered Sig/Enrike Route PRN Reason Start Time Stop Time Status Last Admin Dose Admin Barium Sulfate (Varibar Honey) 250 ml NOW PRN RAD 05/07/20 14:30 05/10/20 14:29 Barium Sulfate (Varibar Lamont) 240 ml NOW PRN RAD 05/07/20 14:30 05/10/20 14:29 Barium Sulfate (Varibar Pudding) 230 ml NOW PRN RAD 05/07/20 14:30 05/10/20 14:29 Barium Sulfate (Varibar Thin Liquid powder) 148 gm NOW PRN RAD 05/07/20 14:30 05/10/20 14:29 Bisacodyl (Dulcolax) 10 mg DAILYPRN PRN RECTAL Constipation 05/01/20 20:30 07/30/20 20:29 Cefepime HCl 2 gm/ Dextrose 55 ml @ 110 mls/hr Q24H IVPB 05/08/20 18:00 05/15/20 17:59 05/08/20 18:00 Chlorhexidine Gluconate (Holli-Hex 2%) 1 applic 2XW TOPIC 05/06/20 09:00 08/04/20 08:59 05/06/20 08:30 Chlorhexidine Gluconate (Holli-Hex 2%) 1 applic DAILY@2000 TOPIC 05/02/20 20:00 07/31/20 19:59 05/08/20 20:23 Dextrose (Dextrose 50%) 25 ml Q30M PRN IV Hypoglycemia 05/01/20 20:30 07/30/20 20:29 Dextrose (Dextrose 50%) 50 ml Q30M PRN IV Hypoglycemia 05/01/20 20:30 07/30/20 20:29 Doxycycline Hyclate 100 mg/ Dextrose 110 ml @ 110 mls/hr Q12HR IV 05/08/20 21:00 05/15/20 20:59 05/09/20 08:06 Insulin Aspart (NovoLOG) Q6HR SUBQ 05/03/20 00:00 08/01/20 00:00 05/08/20 17:27 Metronidazole 100 ml @ 100 mls/hr Q8H IVPB 05/04/20 00:00 05/11/20 00:00 05/09/20 08:05 Ondansetron HCl (Zofran) 4 mg Q6H PRN IVP Nausea & Vomiting 05/01/20 20:30 05/31/20 20:29 Pantoprazole (Protonix) 40 mg EVERY 12 HOURS IVP 05/08/20 21:00 06/07/20 20:59 05/09/20 08:06 Sodium Hypochlorite (Dakin's Quarter Strength) 1 applic DAILY TOPIC 05/05/20 09:00 06/04/20 08:59 05/09/20 08:05 Sodium Bicarbonate (NaHCO3) 650 mg THREE TIMES A DAY ORAL 05/02/20 18:00 06/01/20 17:59 05/09/20 08:06 Last 24 Hour Vital Signs Date Time Temp Pulse Resp B/P (MAP) Pulse Ox O2 Delivery O2 Flow Rate FiO2 05/09/20 07:00 98.0 75 20 141/74 (96) 94 05/09/20 00:00 98.1 75 19 132/74 (93) 95 05/08/20 21:00 Room Air 05/08/20 20:00 97.6 76 18 126/70 (88) 99 05/08/20 16:00 96.8 88 19 125/53 (77) 98 05/08/20 12:00 97.0 89 19 127/64 (85) 98 05/08/20 09:00 Room Air 05/08/20 08:00 96.7 86 18 124/57 (79) 99 05/08/20 04:00 97.2 81 16 118/62 (80) 98 05/08/20 00:00 98.2 76 18 121/63 (82) 99 05/07/20 21:00 Room Air 05/07/20 20:00 97.4 88 17 104/56 (72) 99 05/07/20 16:00 98.1 98 19 118/50 (72) 99 05/07/20 12:00 97.0 89 18 98/51 (67) 94 Intake and Output 05/08/20 05/09/20 19:00 07:00 Output Total 50 ml Balance -50 ml Output Urine Total 50 ml # Voids 1 # Bowel Movements 2 2 Labs Test 05/06/20 12:40 05/06/20 18:25 05/07/20 08:30 05/07/20 13:24 POC Whole Blood Glucose 224 MG/DL (74-106) 250 MG/DL (74-106) 365 MG/DL (74-106) White Blood Count 14.1 K/UL (4.8-10.8) Red Blood Count 2.61 M/UL (4.20-5.40) Hemoglobin 8.2 G/DL (12.0-16.0) Hematocrit 22.4 % (37.0-47.0) Mean Corpuscular Volume 86 FL (80-99) Mean Corpuscular Hemoglobin 31.3 PG (27.0-31.0) Mean Corpuscular Hemoglobin Concent 36.4 G/DL (32.0-36.0) Red Cell Distribution Width 16.1 % (11.6-14.8) Platelet Count 59 K/UL (150-450) Mean Platelet Volume 12.4 FL (6.5-10.1) Neutrophils (%) (Auto) % (45.0-75.0) Lymphocytes (%) (Auto) % (20.0-45.0) Monocytes (%) (Auto) % (1.0-10.0) Eosinophils (%) (Auto) % (0.0-3.0) Basophils (%) (Auto) % (0.0-2.0) Differential Total Cells Counted 100 Neutrophils % (Manual) 85 % (45-75) Lymphocytes % (Manual) 5 % (20-45) Monocytes % (Manual) 10 % (1-10) Eosinophils % (Manual) 0 % (0-3) Basophils % (Manual) 0 % (0-2) Band Neutrophils 0 % (0-8) Platelet Estimate Decreased Platelet Morphology Normal Anisocytosis 1+ Sodium Level 142 MMOL/L (136-145) Potassium Level 3.7 MMOL/L (3.5-5.1) Chloride Level 108 MMOL/L (98-107) Carbon Dioxide Level 18 MMOL/L (21-32) Anion Gap 17 mmol/L (5-15) Blood Urea Nitrogen 48 mg/dL (7-18) Creatinine 4.8 MG/DL (0.55-1.30) Estimat Glomerular Filtration Rate 10.9 mL/min (>60) Glucose Level 349 MG/DL (74-106) Calcium Level 7.3 MG/DL (8.5-10.1) Phosphorus Level 3.8 MG/DL (2.5-4.9) Magnesium Level 1.7 MG/DL (1.8-2.4) Hepatitis A IgM Antibody Negative (Negative) Hepatitis B Surface Antigen Negative (Negative) Hepatitis B Core IgM Antibody Negative (Negative) Hepatitis C Antibody <0.1 s/co ratio HIV (1&2) Antibody Rapid Negative (NEGATIVE) Test 05/07/20 17:49 05/08/20 00:34 05/08/20 06:30 05/08/20 07:57 POC Whole Blood Glucose 313 MG/DL (74-106) 319 MG/DL (74-106) 324 MG/DL (74-106) White Blood Count 17.9 K/UL (4.8-10.8) Red Blood Count 2.49 M/UL (4.20-5.40) Hemoglobin 7.8 G/DL (12.0-16.0) Hematocrit 22.2 % (37.0-47.0) Mean Corpuscular Volume 89 FL (80-99) Mean Corpuscular Hemoglobin 31.2 PG (27.0-31.0) Mean Corpuscular Hemoglobin Concent 35.0 G/DL (32.0-36.0) Red Cell Distribution Width 14.8 % (11.6-14.8) Platelet Count 53 K/UL (150-450) Mean Platelet Volume 9.9 FL (6.5-10.1) Neutrophils (%) (Auto) % (45.0-75.0) Lymphocytes (%) (Auto) % (20.0-45.0) Monocytes (%) (Auto) % (1.0-10.0) Eosinophils (%) (Auto) % (0.0-3.0) Basophils (%) (Auto) % (0.0-2.0) Differential Total Cells Counted 100 Neutrophils % (Manual) 78 % (45-75) Lymphocytes % (Manual) 16 % (20-45) Monocytes % (Manual) 4 % (1-10) Eosinophils % (Manual) 2 % (0-3) Basophils % (Manual) 0 % (0-2) Band Neutrophils 0 % (0-8) Platelet Estimate Decreased Platelet Morphology Normal Anisocytosis 1+ Test 05/08/20 11:47 05/08/20 14:20 05/08/20 17:02 05/09/20 03:18 POC Whole Blood Glucose 301 MG/DL (74-106) 286 MG/DL (74-106) White Blood Count 14.6 K/UL (4.8-10.8) Red Blood Count 2.06 M/UL (4.20-5.40) Hemoglobin 6.4 G/DL (12.0-16.0) Hematocrit 18.2 % (37.0-47.0) Mean Corpuscular Volume 89 FL (80-99) Mean Corpuscular Hemoglobin 31.1 PG (27.0-31.0) Mean Corpuscular Hemoglobin Concent 35.2 G/DL (32.0-36.0) Red Cell Distribution Width 14.9 % (11.6-14.8) Platelet Count 55 K/UL (150-450) Mean Platelet Volume 10.8 FL (6.5-10.1) Neutrophils (%) (Auto) % (45.0-75.0) Lymphocytes (%) (Auto) % (20.0-45.0) Monocytes (%) (Auto) % (1.0-10.0) Eosinophils (%) (Auto) % (0.0-3.0) Basophils (%) (Auto) % (0.0-2.0) Differential Total Cells Counted 100 Neutrophils % (Manual) 78 % (45-75) Lymphocytes % (Manual) 15 % (20-45) Monocytes % (Manual) 7 % (1-10) Eosinophils % (Manual) 0 % (0-3) Basophils % (Manual) 0 % (0-2) Band Neutrophils 0 % (0-8) Platelet Estimate Decreased Platelet Morphology Normal Hypochromasia 1+ Anisocytosis 1+ Sodium Level 142 MMOL/L (136-145) Potassium Level 3.0 MMOL/L (3.5-5.1) Chloride Level 111 MMOL/L (98-107) Carbon Dioxide Level 18 MMOL/L (21-32) Anion Gap 13 mmol/L (5-15) Blood Urea Nitrogen 64 mg/dL (7-18) Creatinine 5.5 MG/DL (0.55-1.30) Estimat Glomerular Filtration Rate 9.3 mL/min (>60) Glucose Level 345 MG/DL (74-106) Calcium Level 7.3 MG/DL (8.5-10.1) Phosphorus Level 3.6 MG/DL (2.5-4.9) Magnesium Level 1.7 MG/DL (1.8-2.4) Test 05/09/20 04:55 POC Whole Blood Glucose 274 MG/DL (74-106) Height (Feet): 5 Height (Inches): 7.00 Weight (Pounds): 130 Objective Physical Exam Vitals: reviewed, normal General Appearance: no apparent distress, non-toxic, lethargic HEENT: bilateral eye normal inspection, bilateral eye PERRL Neck: full range of motion, supple/symm/no masses Resp: chest non-tender, lungs clear, normal breath sounds, speaking full sentences Cardiovascular: regular rate, rhythm, no edema Gastrointestinal: normal bowel sounds, non tender Rectal: deferred Genitourinary: normal inspection, no CVA tenderness Musculoskeletal: back normal, gait/station normal, non-tender Lymphatic: no adenopathy David De Jesus MD May 09, 2020 09:58
--- NOTE | 2020-05-09 10:21 | Nephrology Progress Note ---
Assessment/Plan Plan #JYOTI - concerns for vancomycin nephrotoxicity- r/o ATN- baseline Cr 0.8- also with volume depletion # osteomyelitis of LLE- on vanco, cefepime and flagyl #AMS #diabetes # hypertension, #hyperlipidemia # dementia. - HD tomorrow - monitor hemoglobin - renal US with no acute findings - anibiotis per ID- cefepime, fluconozole and flagyl - avoid vanco for now - monitor renal output - add epo 4k TIW Subjective ROS Limited/Unobtainable: Yes Subjective UOP 450cc yesterday repeat hemoglobin 6.4 Objective Objective Last 24 Hour Vital Signs Date Time Temp Pulse Resp B/P (MAP) Pulse Ox O2 Delivery O2 Flow Rate FiO2 05/09/20 07:00 98.0 75 20 141/74 (96) 94 05/09/20 00:00 98.1 75 19 132/74 (93) 95 05/08/20 21:00 Room Air 05/08/20 20:00 97.6 76 18 126/70 (88) 99 05/08/20 16:00 96.8 88 19 125/53 (77) 98 05/08/20 12:00 97.0 89 19 127/64 (85) 98 Intake and Output 05/08/20 05/09/20 19:00 07:00 Output Total 50 ml Balance -50 ml Output Urine Total 50 ml # Voids 1 # Bowel Movements 2 2 Laboratory Tests 05/08/20 11:47: POC Whole Blood Glucose 301H 05/08/20 14:20: White Blood Count 14.6H, Red Blood Count 2.06L, Hemoglobin 6.4*L, Hematocrit 18.2L, Mean Corpuscular Volume 89, Mean Corpuscular Hemoglobin 31.1H, Mean Corpuscular Hemoglobin Concent 35.2, Red Cell Distribution Width 14.9H, Platelet Count 55L, Mean Platelet Volume 10.8H, Neutrophils (%) (Auto) , Lymphocytes (%) (Auto) , Monocytes (%) (Auto) , Eosinophils (%) (Auto) , Basophils (%) (Auto) , Differential Total Cells Counted 100, Neutrophils % (Manual) 78H, Lymphocytes % (Manual) 15L, Monocytes % (Manual) 7, Eosinophils % (Manual) 0, Basophils % (Manual) 0, Band Neutrophils 0, Platelet Estimate DecreasedL, Platelet Morphology Normal, Hypochromasia 1+, Anisocytosis 1+, Sodium Level 142, Potassium Level 3.0L, Chloride Level 111H, Carbon Dioxide Level 18L, Anion Gap 13, Blood Urea Nitrogen 64H, Creatinine 5.5H, Estimat Glomerular Filtration Rate 9.3, Glucose Level 345H, Calcium Level 7.3L, Phosphorus Level 3.6, Magnesium Level 1.7L 05/08/20 17:02: POC Whole Blood Glucose 286H 05/09/20 03:18: Stool Occult Blood [Pending] 05/09/20 04:55: POC Whole Blood Glucose 274H 05/09/20 09:35: White Blood Count [Pending], Red Blood Count [Pending], Hemoglobin [Pending], Hematocrit [Pending], Mean Corpuscular Volume [Pending], Mean Corpuscular Hemoglobin [Pending], Mean Corpuscular Hemoglobin Concent [Pending], Red Cell Distribution Width [Pending], Platelet Count [Pending], Mean Platelet Volume [Pending], Neutrophils (%) (Auto) [Pending], Lymphocytes (%) (Auto) [Pending], Monocytes (%) (Auto) [Pending], Eosinophils (%) (Auto) [Pending], Basophils (%) (Auto) [Pending], Prothrombin Time [Pending], Prothromb Time International Ratio [Pending], Activated Partial Thromboplast Time [Pending], Sodium Level [Pending], Potassium Level [Pending], Chloride Level [Pending], Carbon Dioxide Level [Pending], Blood Urea Nitrogen [Pending], Creatinine [Pending], Estimat Glomerular Filtration Rate [Pending], Glucose Level [Pending], Calcium Level [Pending], Ferritin [Pending], Total Bilirubin [Pending], Aspartate Amino Transf (AST/SGOT) [Pending], Alanine Aminotransferase (ALT/SGPT) [Pending], Alkaline Phosphatase [Pending], Total Protein [Pending], Albumin [Pending], Globulin [Pending] Height (Feet): 5 Height (Inches): 7.00 Weight (Pounds): 130 Objective General Appearance: no apparent distress EENT: PERRL/EOMI, normal ENT inspection Neck: non-tender, normal alignment Cardiovascular: normal peripheral pulses, normal rate, regular rhythm Respiratory/Chest: chest wall non-tender, lungs clear, normal breath sounds Abdomen: normal bowel sounds, non tender Niko Waterman M.D. May 09, 2020 10:21
[2020-05-09 10:27] LABS: HEMATOCRIT 30.2 % (37.0-47.0); HEMOGLOBIN 10.7 G/DL (12.0-16.0); MEAN CORPUSCULAR VOLUME 87 FL (80-99); PLATELET COUNT 23 K/UL (150-450); RED BLOOD COUNT 3.47 M/UL (4.20-5.40); RED CELL DISTRIBUTION WIDTH 14.5 % (11.6-14.8); WHITE BLOOD COUNT 15.7 K/UL (4.8-10.8)
[2020-05-09 10:33] LABS: INR 1.3 (0.9-1.1)
--- NOTE | 2020-05-09 10:35 | NUR ---
NURSE NOTES: Received orders to insert NGT for patient. Was able to insert NGT, checked placement with another RN. Still awaiting for final confirmation through cxr.
--- NOTE | 2020-05-09 11:16 | NUR ---
RD ASSESSMENT & RECOMMENDATIONS SEE CARE ACTIVITY FOR COMPLETE ASSESSMENT DAILY ESTIMATED NEEDS: Needs based on Wound, JYOTI + HD initiated/ 59kg 30-35 kcals/kg 3787-7260 total kcals 1.25-1.8 (w/ HD) g protein/kg 74-106 g total protein 20-25 mL/kg 3146-6956 total fluid mLs NUTRITION DIAGNOSIS: * Swallowing difficulty R/T dysphagia as evidenced by PHARMACY INFORMATICS MANAGER recommends pureed moist texture w/ NTL, NPO at this time. * Increased kcal/prot/micronutrients needs R/T wound healing as evidenced by pt admitted w/ multiple wounds, including unstageable wounds @ sacrum, L heel, stage 2 wound @ lt ischium, DTI wound @ R heel. * Altered nutrition related lab values R/T h/o DM, pt on steroidal med, JYOTI as evidenced by elev BGs (200's-300's), elev creat (6.1 trending up). CURRENT TF: Now w/ orders for Nepro @20ml/hr ENTERAL NUTRITION RECOMMENDATIONS: Nepro w/ goal of 45ml/hr x24 hrs to provide 1080ml, 1944 kcal, 87g pro, 785ml free H2O - As tolerated, rec TF increase to goal of 45ml/hr x24 hrs to better meet est kcal and pro needs. - Flush per , BRITTANEY over 30 degrees ADDITIONAL RECOMMENDATIONS: * Calibrated bedscale wt * Wound healing:Add Nephrovite x1, Vit C dosing per nephro Dedrick BID w/ diet order, ZnSO4 220mg QD x 10 days * Monitor PO diet tolerance and acceptance, need for nonorla feeding * W/ diet/ TF, consider long acting insulin * Monitor renal fxn and for continuity of HD, monitor lytes .
--- NOTE | 2020-05-09 11:21 | Diagnostic Imaging Report ---
EXAM: XR Abdomen, 2 Views CLINICAL HISTORY: NGT TECHNIQUE: Frontal view of the abdomen/pelvis with upright view of the abdomen. COMPARISON: None FINDINGS: Hardware: Enteric tube terminates in the region of the stomach. Abdomen: Nonobstructive bowel gas pattern. No free air. Bones: Degenerative changes of the spine. Soft tissues: Normal. Lower chest: Normal. Other: Presumed phleboliths in the pelvis. IMPRESSION: Enteric tube terminates in the region of the stomach.
--- NOTE | 2020-05-09 11:34 | General Progress Note ---
Subjective ROS Limited/Unobtainable: No Allergies: Coded Allergies: PENICILLINS (Verified Allergy, Unknown, 12/05/17) Objective Last 24 Hour Vital Signs Date Time Temp Pulse Resp B/P (MAP) Pulse Ox O2 Delivery O2 Flow Rate FiO2 05/09/20 09:00 Room Air 05/09/20 07:00 98.0 75 20 141/74 (96) 94 05/09/20 00:00 98.1 75 19 132/74 (93) 95 05/08/20 21:00 Room Air 05/08/20 20:00 97.6 76 18 126/70 (88) 99 05/08/20 16:00 96.8 88 19 125/53 (77) 98 05/08/20 12:00 97.0 89 19 127/64 (85) 98 Intake and Output 05/08/20 05/09/20 19:00 07:00 Output Total 50 ml Balance -50 ml Output Urine Total 50 ml # Voids 1 # Bowel Movements 2 2 Laboratory Tests 05/08/20 11:47: POC Whole Blood Glucose 301H 05/08/20 14:20: White Blood Count 14.6H, Red Blood Count 2.06L, Hemoglobin 6.4*L, Hematocrit 18.2L, Mean Corpuscular Volume 89, Mean Corpuscular Hemoglobin 31.1H, Mean Corpuscular Hemoglobin Concent 35.2, Red Cell Distribution Width 14.9H, Platelet Count 55L, Mean Platelet Volume 10.8H, Neutrophils (%) (Auto) , Lymphocytes (%) (Auto) , Monocytes (%) (Auto) , Eosinophils (%) (Auto) , Basophils (%) (Auto) , Differential Total Cells Counted 100, Neutrophils % (Manual) 78H, Lymphocytes % (Manual) 15L, Monocytes % (Manual) 7, Eosinophils % (Manual) 0, Basophils % (Manual) 0, Band Neutrophils 0, Platelet Estimate DecreasedL, Platelet Morphology Normal, Hypochromasia 1+, Anisocytosis 1+, Sodium Level 142, Potassium Level 3.0L, Chloride Level 111H, Carbon Dioxide Level 18L, Anion Gap 13, Blood Urea Nitrogen 64H, Creatinine 5.5H, Estimat Glomerular Filtration Rate 9.3, Glucose Level 345H, Calcium Level 7.3L, Phosphorus Level 3.6, Magnesium Level 1.7L 05/08/20 17:02: POC Whole Blood Glucose 286H 05/09/20 03:18: Stool Occult Blood [Pending] 05/09/20 04:55: POC Whole Blood Glucose 274H 05/09/20 09:35: White Blood Count 15.7H, Red Blood Count 3.47L, Hemoglobin 10.7#L, Hematocrit 3 0.2#L, Mean Corpuscular Volume 87, Mean Corpuscular Hemoglobin 30.7, Mean Corpuscular Hemoglobin Concent 35.3, Red Cell Distribution Width 14.5, Platelet Count 23#L, Mean Platelet Volume 13.6H, Neutrophils (%) (Auto) , Lymphocytes (%) (Auto) , Monocytes (%) (Auto) , Eosinophils (%) (Auto) , Basophils (%) (Auto) , Neutrophils % (Manual) [Pending], Lymphocytes % (Manual) [Pending], Platelet Estimate [Pending], Platelet Morphology [Pending], Prothrombin Time 14.4H, Prothromb Time International Ratio 1.3H, Activated Partial Thromboplast Time 46H , Sodium Level [Pending], Potassium Level [Pending], Chloride Level [Pending], Carbon Dioxide Level [Pending], Blood Urea Nitrogen [Pending], Creatinine [Pending], Estimat Glomerular Filtration Rate [Pending], Glucose Level [Pending], Calcium Level [Pending], Ferritin [Pending], Total Bilirubin [Pending], Aspartate Amino Transf (AST/SGOT) [Pending], Alanine Aminotransferase (ALT/SGPT) [Pending], Alkaline Phosphatase [Pending], Total Protein [Pending], Albumin [Pending], Globulin [Pending] Height (Feet): 5 Height (Inches): 7.00 Weight (Pounds): 130 General Appearance: lethargic EENT: PERRL/EOMI Neck: supple Cardiovascular: normal rate Respiratory/Chest: decreased breath sounds Abdomen: hypoactive bowel sounds Extremities: non-tender Assessment/Plan Assessment/Plan: DM RF anemia thrombocytopenia GIB UTI dysphagia dc lovenox ppi cbc transfuse as needed fu swallow eval abd us reviewed now has NGT and NGTF Shai Hay MD May 09, 2020 11:34
--- NOTE | 2020-05-09 11:55 | NUR ---
NURSE NOTES: Upon VS 12 NOON patient bp trend low at 74/31 hr 82 rechecked after 5 minutes 75/40 hr 85. Repositioned patient to trendelenberg position. Notified Dr. Story, orders were given to give 500ml NS bolus. Orders noted and carried out.
[2020-05-09 11:58] LABS: ALBUMIN/GLOBULIN RATIO 0.4 (1.0-2.7); CALCIUM 7.3 MG/DL (8.5-10.1); POTASSIUM 3.4 MMOL/L (3.5-5.1)
[2020-05-09 12:00] VITALS: BP 90/43
--- NOTE | 2020-05-09 12:15 | NUR ---
NURSE NOTES: 15 minutes into NS bolus bp trending up at 87/[address] Story
--- NOTE | 2020-05-09 13:00 | NUR ---
NURSE NOTES: Rechecked Vs bp 90/43 hr 91. Patient asymptomatic, awake no s/sx of discomfort. Dr. Story notified.
--- NOTE | 2020-05-09 13:02 | General Progress Note ---
Advance Care Planning Advance Care Planning Advance Care Planning [facility] An independent Hospitalist group, where every patient is our [facility] Internal Medicine Hospitalist Advanced Care Planning Note Please contact us at Date of Discussion: A phone discussion with the patient's sister regarding the patient's advanced care planning took place during this hospitalization on the above date. The discussion included the explanation and discussion of advance directives and associated forms/documents, as well as the patient's current code status. 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 The following summarizes the discussion: Advance Care Planning/Goals of Care: - Will attempt to fill out an AD and/or POLST with the patient prior to discharge, if not already completed - Continue current evaluation and management of any acute and chronic medical issues - Will continue to support the patient/family - Will continue to discuss both short- and long-term goals of care - During discussion with patient's sister, she expressed that Bhavna would not want to be kept alive artificially on a ventilator, especially given the low likelihood of recovery. Additionally, we discussed that CPR would also be very unlikely to resuscitate her given her severe comorbidities and frailty. She also expressed that Bhavna would not want meterman artificial nutrition either. Should the patient worsen, another conversation will be had with the family to consider comfort care measures. - No meterman artificial nutrition such as PEG tube DPOA-HC/Surrogate Decision Maker: Patient's sister Elisha Code Status: DNR/DNI Advanced Care Planning Forms/Documents Completed: Deferred until later encounter/visit A total of 47 minutes was spent on this discussion, including counseling, answering questions, and completing, if any, pertinent advanced care planning forms/documents. Time of note may not reflect time of encounter. Carlton Story M.D. May 09, 2020 13:02
--- NOTE | 2020-05-09 13:06 | General Progress Note ---
Subjective Date patient seen: May 09, 2020 ROS Limited/Unobtainable: Yes Allergies: Coded Allergies: PENICILLINS (Verified Allergy, Unknown, 12/05/17) Subjective Patient hypotensive this morning. Had 2 L removed during dialysis yesterday. Giving IVF bolus. Plt count decreasing as well, will transfuse platelets. Patient still encephalopathic, still not able to open eyes or verbalize today though moving spontaneously. Unable to obtain ROS due to ALOC Objective Last 24 Hour Vital Signs Date Time Temp Pulse Resp B/P (MAP) Pulse Ox O2 Delivery O2 Flow Rate FiO2 05/09/20 09:00 Room Air 05/09/20 07:00 98.0 75 20 141/74 (96) 94 05/09/20 00:00 98.1 75 19 132/74 (93) 95 05/08/20 21:00 Room Air 05/08/20 20:00 97.6 76 18 126/70 (88) 99 05/08/20 16:00 96.8 88 19 125/53 (77) 98 Intake and Output 05/08/20 05/09/20 19:00 07:00 Output Total 50 ml Balance -50 ml Output Urine Total 50 ml # Voids 1 # Bowel Movements 2 2 Laboratory Tests 05/08/20 14:20: White Blood Count 14.6H, Red Blood Count 2.06L, Hemoglobin 6.4*L, Hematocrit 18.2L, Mean Corpuscular Volume 89, Mean Corpuscular Hemoglobin 31.1H, Mean Corpuscular Hemoglobin Concent 35.2, Red Cell Distribution Width 14.9H, Platelet Count 55L, Mean Platelet Volume 10.8H, Neutrophils (%) (Auto) , Lymphocytes (%) (Auto) , Monocytes (%) (Auto) , Eosinophils (%) (Auto) , Basophils (%) (Auto) , Differential Total Cells Counted 100, Neutrophils % (Manual) 78H, Lymphocytes % (Manual) 15L, Monocytes % (Manual) 7, Eosinophils % (Manual) 0, Basophils % (Manual) 0, Band Neutrophils 0, Platelet Estimate DecreasedL, Platelet Morphology Normal, Hypochromasia 1+, Anisocytosis 1+, Sodium Level 142, Potassium Level 3.0L, Chloride Level 111H, Carbon Dioxide Level 18L, Anion Gap 13, Blood Urea Nitrogen 64H, Creatinine 5.5H, Estimat Glomerular Filtration Rate 9.3, Glucose Level 345H, Calcium Level 7.3L, Phosphorus Level 3.6, Magnesium Level 1.7L 05/08/20 17:02: POC Whole Blood Glucose 286H 05/09/20 03:18: Stool Occult Blood [Pending] 05/09/20 04:55: POC Whole Blood Glucose 274H 05/09/20 09:35: White Blood Count 15.7H, Red Blood Count 3.47L, Hemoglobin 10.7#L, Hematocrit 30.2#L, Mean Corpuscular Volume 87, Mean Corpuscular Hemoglobin 30.7, Mean Corpuscular Hemoglobin Concent 35.3, Red Cell Distribution Width 14.5, Platelet Count 23#L, Mean Platelet Volume 13.6H, Neutrophils (%) (Auto) , Lymphocytes (%) (Auto) , Monocytes (%) (Auto) , Eosinophils (%) (Auto) , Basophils (%) (Auto) , Differential Total Cells Counted 100, Neutrophils % (Manual) 89H, Lymphocytes % (Manual) 6L, Monocytes % (Manual) 3, Eosinophils % (Manual) 0, Basophils % (Manual) 0, Band Neutrophils 2, Nucleated Red Blood Cells 2, Platelet Estimate DecreasedL, Platelet Morphology , Giant Platelets Rare, Anisocytosis 1+, Prothrombin Time 14.4H, Prothromb Time International Ratio 1.3H, Activated Partial Thromboplast Time 46H, Sodium Level 141, Potassium Level 3.4L, Chloride Level 107, Carbon Dioxide Level 15L, Anion Gap 19H, Blood Urea Nitrogen 42H, Creatinine 4.0H, Estimat Glomerular Filtration Rate 13.5, Glucose Level 356H, C alcium Level 7.3L, Ferritin 1430H, Total Bilirubin 1.0, Aspartate Amino Transf (AST/SGOT) 397H, Alanine Aminotransferase (ALT/SGPT) 147H, Alkaline Phosphatase 413H, Total Protein 3.8L, Albumin 1.0L, Globulin 2.8, Albumin/Globulin Ratio 0 .4L 05/09/20 12:10: POC Whole Blood Glucose [Pending] Height (Feet): 5 Height (Inches): 7.00 Weight (Pounds): 130 Objective General: WDWN female in NAD, A&O x 0 (baseline is A&o x 1), sleeping but arousable, not conversant, not following commands. No signs of bleeding. Bed placed in trendelenburg position due to hypotension. HEENT: Normocephalic atraumatic, nares patent and no symmetrical, mucous membranes moist CV: Regular rate regular rhythm, no murmurs, rubs, or gallops Pulm: Lungs clear to auscultation bilaterally. No wheezes, rhonchi, or rales GI: Soft, nontender, nondistended, bowel sounds present Neuro: grossly intact, no focal signs. Ext: No lower extremity edema bilaterally. LUE 1+ edema Skin: no rashes lesions or ulcers Msk: Moves arms spontaneously. Joints symmetrical in upper extremity and lower extremity bilaterally, no joint swelling. Lymph: No lymphadenopathy in upper extremity and lower extremity CXR 05/04/2020 Technique: One view of the chest Comparison: 03/31/2020 Findings: Interim placement of a right jugular temporary dialysis catheter in satisfactory position. No pneumothorax. The lungs and pleural spaces are clear. The heart size is normal Impression: No acute process Assessment/Plan Assessment/Plan: This is a 69-year-old female presenting with acute encephalopathy, JYOTI, acute UTI. #Hypotension - possibly hypovolemic from dialysis volume removal #Acute kidney injury, suspect possible Vanc toxicity vs. component of pre renal as well. FeNA elevated suggesting intrinsic process #Renal failure on HD #Anemia - severe, no signs of bleeding #Thrombocytopenia - transfuse plts 05/09 #Hypokalemia #Hypomagnesemia > FeNA 3.8% suspect intrinsic -IVF bolus PRN -Had extensive discussion with patient's sister about GOC, patient now DNR/DNI. 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 Should patient continue to worsen, another conversation will be had regarding potential transition to comfort care -Urine sodium, urine creatinine, urine eosinophils: reviewed -Renal ultrasound: no hydro, medical renal disease - transfuse PRN with HD - GI consult Dr. Hay, pending recs - Vargas catheter for strict I's and O's -Check vanc level: in 30s - IV fluids per nephro - HD per nephro, catheter in place per xray read -Avoid nephrotoxins -Trend creatinine -Appreciate nephro consult: Dr. Waterman -mario carey PRN - d/w Sister Elisha who is medical decision maker. Confirmed ok with HD (pending consent by Nephro) #Acute metabolic encephalopathy #Underlying dementia #Malnutrition #Acute UTI #LLE osteomyelitis s/p debridement on 04/07/2020 with bone biopsy and cultures obtained. #Stage II sacral decubitus ulcer > CTH no acute abnormality >EKG reviewed -Blood cultures -Urine culture - Speech swallow eval, may need to consider PEG -Appreciate ID consult: Bola -Lora gen surgery consult: Jasmeet -Neurology consult: D/w Dr. Lee -Holding Vanc due to elevated Vanco level - Switch to doxycycline instead (04/07 - ) -Continue Cefepime (renally dosed). (04/07 - ) -Continue Flagyl (04/07 - ) -Continue Abx for 42 days -swallow eval: pending -check TSH: normal -check lactate: normal -trend troponin: normal #Acute LUE DVT, picc related - D/w Heme and surgery - remove PICC line - heparin GTT #DM2 -Hold lantus -hold metformin -SSI -accuchecks -hypoglycemia protocol #essential hypertension #hyperlipidemia -hold home amlodipine for now -hold benazepril -holding asa -holding statin FENPPX DVTPPX: HSQ Fluids: as above Diet: NPO pending swallow eval Lines: PIV, LUE PICC PT/OT: pending Code status: DNR/DNI Dispo: back to SNF Reason for Continued Hospitalization: hypotension, jyoti/renal failure, AMS, anemia MIPS ([employer]-based Incentive Payment System) Applicable CPT: 47740, 72655 CHECK ALL THAT ARE MET: [] Measure #5 (CHF): All ages. Prescribe DESTINEY/ARB upon discharge for patients with left ventricular systolic dysfunction. If not, the reason is clearly documented in the medical chart [] Measure #8 (CHF): All ages. Prescribe a beta jennifer upon discharge for patients with left ventricular systolic dysfunction. If not, the reason is clearly documented in the medical chart. [] Measure #47: Advance care plan or surrogate decision maker documented in the medical record. [x] Measure #130 The provider has documented, updated, or reviewed the patient s current medication list and has documented it in the patients note. [x] Measure #374 (All): Send report to referring provider. [] Measure #407(Sepsis due to MSSA bacteremia): Age 18+ Patient treated with a beta-lactam antibiotic (Nafcillin, Oxacillin or Cefazolin) as definitive therapy. MEDICAL COMPLEXITYHigh complexity medical decision making (need 2/3 categories)Problem - need 4 points [x]Acute/new problem with new plan for workup (4 points, 1 max) [] Acute/new problem without additional workup (3 points, 1 max) [x] Unstable chronic problem actively being managed (2 point each, 2 max) [x] Stable chronic problem actively being managed (1 point each, 2 max) [x] Self-limited/transient process (constipation, muscle ache, etc) (1 point each, 2 max) Data - need 4 points [x] Reviewed labs/imaging studies (1 points, 2 max) [x] Independent review of imaging (EKG, xrays, etc) (2 points, 2 max) [x] Discussed case with consult/other MD/RN (2 points, 2 max) High Risk - qualify if have one of the following: [x] Severe exacerbation of acute problem, acute mental status change, IV narcotics, monitoring drug levels (vancomycin, INR, tacrolimus etc) I spent 43 minutes on this patient's case, and 28 mins was dedicated to counseling and/or care coordination. Discussed with nephro, ID, gen surgery, neurology. Time of note may not reflect time of encounter Carlton Story M.D. May 09, 2020 13:06
--- NOTE | 2020-05-09 13:30 | NUR ---
NURSE NOTES: Received order from Dr. Story to give 1 additional bolus of NS 500ml, and order for midodrine. Orders noted and carried out.
--- NOTE | 2020-05-09 14:00 | NUR ---
NURSE NOTES: Made aware to charge nurse that coffee ground residual was observed. Dr. Story notified and feeding held.
--- NOTE | 2020-05-09 14:06 | NUR ---
CHARGE NURSE NOTE: NG tube was placed, during the gastric residual check -coffee ground emesis noted. notified, (he will call ).
[2020-05-09 15:00] VITALS: BP 125/60
--- NOTE | 2020-05-09 15:30 | NUR ---
NURSE NOTES: Received order from Dr. Story to transfuse 1 unit of platelet. Patient vs pretransfusion at 125/60, hr 89, temp 97.3. confirmed bag and patient with another RN.
[2020-05-09] MEDS ORDERED: Tubing IV Secondary IV ONE (15:42)
[2020-05-09] MEDS ORDERED: NS 500ML ONE (15:42)
--- NOTE | 2020-05-09 15:45 | NUR ---
NURSE NOTES: 15 mins into transfusion patient observed to be awake and stable. VS at 113/48, hr 81, temp 96.9
--- NOTE | 2020-05-09 16:17 | NUR ---
NURSE NOTES: Transfusion complete. No ASE observed. Patient stable with VS at 125/57, hr 82, temp 96.1. Bag and form completed and returned to Blood Bank.
[2020-05-09] MEDS: Cefepime HCl 2 GM in D5W 55 ML IVPB SCH (17:04)
--- NOTE | 2020-05-09 18:16 | Surgery Progress Note ---
Surgery Progress Note Subjective Symptoms: improved, tolerating diet, passing flatus, BM Objective Last 24 Hour Vital Signs Date Time Temp Pulse Resp B/P (MAP) Pulse Ox O2 Delivery O2 Flow Rate FiO2 05/09/20 15:00 96.5 89 19 125/60 (81) 97 05/09/20 12:00 96.5 87 19 90/43 (59) 97 05/09/20 09:00 Room Air 05/09/20 07:00 98.0 75 20 141/74 (96) 94 05/09/20 00:00 98.1 75 19 132/74 (93) 95 05/08/20 21:00 Room Air 05/08/20 20:00 97.6 76 18 126/70 (88) 99 I&O Intake and Output 05/08/20 05/09/20 19:00 07:00 Output Total 2050 ml Balance -2050 ml Output Urine Total 50 ml Hemodialysis UF 2000 ml # Voids 1 # Bowel Movements 2 2 Dressing: saturated Cardiovascular: RSR Respiratory: decreased breath sounds Abdomen: soft, non-tender, present bowel sounds Extremities: no edema, no tenderness, no cyanosis, other Laboratory Tests Test 05/09/20 03:18 05/09/20 04:55 05/09/20 09:35 05/09/20 12:10 Stool Occult Blood Pending POC Whole Blood Glucose 274 MG/DL (74-106) H Pending White Blood Count 15.7 K/UL (4.8-10.8) H Red Blood Count 3.47 M/UL (4.20-5.40) L Hemoglobin 10.7 G/DL (12.0-16.0) #L Hematocrit 30.2 % (37.0-47.0) #L Mean Corpuscular Volume 87 FL (80-99) Mean Corpuscular Hemoglobin 30.7 PG (27.0-31.0) Mean Corpuscular Hemoglobin Concent 35.3 G/DL (32.0-36.0) Red Cell Distribution Width 14.5 % (11.6-14.8) Platelet Count 23 K/UL (150-450) #L Mean Platelet Volume 13.6 FL (6.5-10.1) H Neutrophils (%) (Auto) % (45.0-75.0) Lymphocytes (%) (Auto) % (20.0-45.0) Monocytes (%) (Auto) % (1.0-10.0) Eosinophils (%) (Auto) % (0.0-3.0) Basophils (%) (Auto) % (0.0-2.0) Differential Total Cells Counted 100 Neutrophils % (Manual) 89 % (45-75) H Lymphocytes % (Manual) 6 % (20-45) L Monocytes % (Manual) 3 % (1-10) Eosinophils % (Manual) 0 % (0-3) Basophils % (Manual) 0 % (0-2) Band Neutrophils 2 % (0-8) Nucleated Red Blood Cells 2 /100 WBC Platelet Estimate Decreased L Platelet Morphology Giant Platelets Rare Anisocytosis 1+ Prothrombin Time 14.4 SEC (9.30-11.50) H Prothromb Time International Ratio 1.3 (0.9-1.1) H Activated Partial Thromboplast Time 46 SEC (23-33) H Sodium Level 141 MMOL/L (136-145) Potassium Level 3.4 MMOL/L (3.5-5.1) L Chloride Level 107 MMOL/L (98-107) Carbon Dioxide Level 15 MMOL/L (21-32) L Anion Gap 19 mmol/L (5-15) H Blood Urea Nitrogen 42 mg/dL (7-18) H Creatinine 4.0 MG/DL (0.55-1.30) H Estimat Glomerular Filtration Rate 13.5 mL/min (>60) Glucose Level 356 MG/DL (74-106) H Calcium Level 7.3 MG/DL (8.5-10.1) L Ferritin 1430 NG/ML (8-388) H Total Bilirubin 1.0 MG/DL (0.2-1.0) Aspartate Amino Transf (AST/SGOT) 397 U/L (15-37) H Alanine Aminotransferase (ALT/SGPT) 147 U/L (12-78) H Alkaline Phosphatase 413 U/L (46-116) H Total Protein 3.8 G/DL (6.4-8.2) L Albumin 1.0 G/DL (3.4-5.0) L Globulin 2.8 g/dL Albumin/Globulin Ratio 0.4 (1.0-2.7) L Test 05/09/20 17:02 POC Whole Blood Glucose 268 MG/DL (74-106) H Plan Problems: (1) UTI (urinary tract infection) (2) JYOTI (acute kidney injury) (3) Hyperkalemia (4) Leukocytosis Assessment & Plan: dvt upper extremity picc related remove picc once temp line in anticoag as per heme worsening leukocytosis on abx (5) Sepsis (6) Altered mental status (7) Sacral decubitus ulcer Assessment & Plan: 69-year-old female multiple comorbidities presented with failure to thrive lethargic altered mental status noted to have abnormal labs and have draining bilateral heel unstageable decubitus ulcers multiple skin lesions on the lower extremities as well as a sacral decubitus ulcer as well. Imaging reviewed. Patient has been eating less recently but currently is eating at the bedside though does not look like she is taking much in. Treatment plan Turn every 2 hours Offload pressure with pillows pillow on side as necessary as well as underneath calf to elevate heels Air soft mattress nutritional optimization continue IV antibiotics per infectious disease SACRUM- STAGE - UNSTAGEABLE PRESSURE ULCER MEASURES 6.0X13.0X0.2. WOUND BED WITH 80% SLOUGH AND 20% PINK GRANULATION TISSUE. NOTED FOUL ODOR RECOMMEND-CLEAN WITH SALINE. APPLY WET TO DRY DRESSINGS WITH DAKINS 0.25% DAKIN'S SOLUTION.COVER WITH OPTIFOAM DRESSING. REPLACE DRESSING DAILY. LEFT ISCHIUM-STAGE II PRESSURE ULCER MEASURES 4.5X0.5X0.2CM. PINK GRANULATION TISSUE NOTED. RECOMMEND- CLEAN WITH SALINE, PAT DRY. APPLY CALAZINE AND COVER WITH OPTIFOAM DRESSING. LEFT ANTERIOR LOW LEG-VENOUS ULCER MEASURES 8.0X2.6X0.2CM 100% YELLOW SLOUGH NOTED TO WOUND BED. RECOMMEND- CLEAN WITH SALINE, PA DRY. APPLY THERAHONEY. COVER WITH GAUZE AND SECURE WITH KERLIX. REPLACE DRESSING DAILY. LEFT HEEL- UNSTAGEABLE PRESSURE ULCER MEASURES 9.5X8.0X0.3CM. 100% MOIST BLACK ESCHAR. WITH STRONG FOUL ODOR. RECOMMEND- CLEAN WITH SALINE. APPLY WET TO DRY DRESSINGS WITH DAKINS 0.25% D MELO'S SOLUTION. COVER WITH GAUZE, ABD PAD AND SECURE WITH KERLIX. REPLACE DAILY. RIGHT ANTERIOR LOW LEG-VENOUS ULCER MEASURES 2.5X3.0X0.2CM WITH PINK GRANULATION TISSUE. RIGHT ANTERIOR DISTAL LOW LEG -VENOUS ULCER MEASURES 1.5X0.2X0.1CM WITH PINK GRANULATION TISSUE. RECOMMEND-CLEAN WITH SALINE PAT DRY. APPLY XEROFORM GAUZE, GAUZE AND COVER WITH KERLIX. REPLACE DAILY RIGHT HEEL-DTI MEASURES 2.5X3.0CM. AREA DARK PURPLE IN COLOR AND BOGGY TO TOUCH. NO DRAINAGE NOTED. RECOMMEND- PAINT WITH CAVILON SKIN PROTECTOR, GAUZE AND WRAP WITH KERLIX. REPLACE DAILY. We will follow with recommendations thank you for letting participate patient's care Fairly numerous bubbles of soft tissue gas are seen within the subcutaneous fat and possibly the intrinsic musculature of the plantar surface of the heel. There is high STIR and decreased T1 signal within the calcaneus, and there is indistinctness of the inferior and posterior cortical margins of the calcaneus. There is some soft tissue ulceration of the plantar surface of the heel, as well as marked thinning of the subcutaneous fat overlying the calcaneal tuberosity. There is considerable edema of the plantar surface subcutaneous fat. There is also edema of the subcutaneous fat of the lateral and medial ankle. No focal discrete fluid collection to suggest drainable abscess demonstrated. Impression: Evidence of ulceration overlying the calcaneal tuberosity Soft tissue gas within the heel, as described. This may represent penetration the above, but is worrisome for infection with a gas-forming organism Abnormal signal within the posterior and mid calcaneus, highly suspicious for acute osteomyelitis (8) Decubitus ulcer of heel (9) Diabetes mellitus out of control (10) Acute on chronic renal failure (11) NSTEMI (non-ST elevated myocardial infarction) (12) High anion gap metabolic acidosis Joseph Alamo May 09, 2020 18:16
--- NOTE | 2020-05-09 19:23 | NUR ---
NURSE HAND-OFF: Important Events on Shift:TRANSFUSION 1U PLATELET, BOLUS NS 500CC X2, NGT INSERTED FEEDING HELD D/T COFFEE GROUND RESIDUAL Patient Status: Stable Diet: npo Pending Orders: n/a Pending Results/Labs:n/a Pending MD notification:n/a Latest Vital Signs: Temperature 96.5 , Pulse 89 , B/P 125 /60 , Respiratory Rate 19 , O2 SAT 97 , Room Air, O2 Flow Rate 3.0 . Vital Sign Comment: stable Latest Hernandez Fall Score: 70 Fall Risk: High Risk Safety Measures: Call light Within Reach, Bed Alarm Zone 1, Side Rails Side Rails x3, Bed position Low and Locked. Fall Precautions: Yellow Socks Yellow Gown Report given to ZACH [place].
[2020-05-09 20:00] VITALS: BP 141/65
[2020-05-09] MEDS: Dyna-Hex 2% Top Sol 2oz TOPIC SCH (20:00)
--- NOTE | 2020-05-09 20:23 | Neurology Progress Note ---
Interim History Interim History ROS Limited/Unobtainable: Yes Interim History remains confused and poorly interactive Objective Physical Exam Last Vital Signs Date Time Temp Pulse Resp B/P (MAP) Pulse Ox O2 Delivery O2 Flow Rate FiO2 05/09/20 15:00 96.5 89 19 125/60 (81) 97 05/09/20 09:00 Room Air 05/05/20 16:12 3.0 99 Laboratory Tests Test 05/09/20 03:18 05/09/20 04:55 05/09/20 09:35 05/09/20 12:10 Stool Occult Blood Pending POC Whole Blood Glucose 274 MG/DL (74-106) H Pending White Blood Count 15.7 K/UL (4.8-10.8) H Red Blood Count 3.47 M/UL (4.20-5.40) L Hemoglobin 10.7 G/DL (12.0-16.0) #L Hematocrit 30.2 % (37.0-47.0) #L Mean Corpuscular Volume 87 FL (80-99) Mean Corpuscular Hemoglobin 30.7 PG (27.0-31.0) Mean Corpuscular Hemoglobin Concent 35.3 G/DL (32.0-36.0) Red Cell Distribution Width 14.5 % (11.6-14.8) Platelet Count 23 K/UL (150-450) #L Mean Platelet Volume 13.6 FL (6.5-10.1) H Neutrophils (%) (Auto) % (45.0-75.0) Lymphocytes (%) (Auto) % (20.0-45.0) Monocytes (%) (Auto) % (1.0-10.0) Eosinophils (%) (Auto) % (0.0-3.0) Basophils (%) (Auto) % (0.0-2.0) Differential Total Cells Counted 100 Neutrophils % (Manual) 89 % (45-75) H Lymphocytes % (Manual) 6 % (20-45) L Monocytes % (Manual) 3 % (1-10) Eosinophils % (Manual) 0 % (0-3) Basophils % (Manual) 0 % (0-2) Band Neutrophils 2 % (0-8) Nucleated Red Blood Cells 2 /100 WBC Platelet Estimate Decreased L Platelet Morphology Giant Platelets Rare Anisocytosis 1+ Prothrombin Time 14.4 SEC (9.30-11.50) H Prothromb Time International Ratio 1.3 (0.9-1.1) H Activated Partial Thromboplast Time 46 SEC (23-33) H Sodium Level 141 MMOL/L (136-145) Potassium Level 3.4 MMOL/L (3.5-5.1) L Chloride Level 107 MMOL/L (98-107) Carbon Dioxide Level 15 MMOL/L (21-32) L Anion Gap 19 mmol/L (5-15) H Blood Urea Nitrogen 42 mg/dL (7-18) H Creatinine 4.0 MG/DL (0.55-1.30) H Estimat Glomerular Filtration Rate 13.5 mL/min (>60) Glucose Level 356 MG/DL (74-106) H Calcium Level 7.3 MG/DL (8.5-10.1) L Ferritin 1430 NG/ML (8-388) H Total Bilirubin 1.0 MG/DL (0.2-1.0) Aspartate Amino Transf (AST/SGOT) 397 U/L (15-37) H Alanine Aminotransferase (ALT/SGPT) 147 U/L (12-78) H Alkaline Phosphatase 413 U/L (46-116) H Total Protein 3.8 G/DL (6.4-8.2) L Albumin 1.0 G/DL (3.4-5.0) L Globulin 2.8 g/dL Albumin/Globulin Ratio 0.4 (1.0-2.7) L Test 05/09/20 17:02 POC Whole Blood Glucose 268 MG/DL (74-106) H Impression/Recommendations Problems: (1) Sepsis (2) Hyperkalemia (3) Leukocytosis (4) Altered mental status (5) Diabetes mellitus out of control (6) Acute on chronic renal failure (7) NSTEMI (non-ST elevated myocardial infarction) (8) High anion gap metabolic acidosis (9) Sacral decubitus ulcer (10) Decubitus ulcer of heel (11) UTI (urinary tract infection) (12) JYOTI (acute kidney injury) Diagnostic Impression acute metabolic encephalopathy jyoti sepsis baseline dementia cont ivfs delirium precautions no need for mri brain cont athTee Olivas MD May 09, 2020 20:23
[2020-05-10] VITALS: BP 124/64
[2020-05-10 04:00] VITALS: BP 126/60
[2020-05-10] MEDS: NovoLOG Insulin Flexpen SUBQ SCH ×3 (06:33→18:00)
--- NOTE | 2020-05-10 06:54 | Hematology/Onc Progress Note ---
Assessment/Plan Assessment/Plan Assessment and Recs # Left upper extremity axillary, subclavian, and brachial venous thrombosis --> heparin gtt was started-->now changed to lovenox as supertherapeutic->now HELD due to severe anemia --> consider eliquis or coumadin once closer to dc --> patient does have eleno/ckd, thus agent needed not affected by renal function --> monitor for bleed # Thrombocytopenia likely secondary to left heel and foot osteomyelitis/ infection/dic --> likely due to infected wounds, heel ulcerations --> ABX flucon/flagyl/cefepime-->doxy/cefepime --> Peripheral smear, reviewed, hold off flow for now --> elev inflammatory markers --> WBC 35-->22-->18-->14-->13-->11.4->>>13-->17 --> plt 55-->23 # Anemia due to underlying chronic disease. --> Continue to closely monitor for improvement. --> Anemia w/u has been reviewed. Will trend cbc daily. --> Hgb goal >7 -> hgb 12-->10.7->9.4-->9.5->10-->7.3-->5.7-->6.2-->8-->6.4-->10 --> 2 units 05/07 --> anemia panel reviewed before # Hyperkalemia. Given Kayexalate. --> Improved # Diabetic ketoacidosis. --> per before, improved # ESRD --> hd with line inserted # Shortness of breath in past with dka # Dvt ppx --> scds The time the note was entered does not necessarily correspond to the time the patient was seen. Subjective HEENT: Denies: no symptoms, eye pain, blurred vision, tearing, double vision, ear pain, ear discharge, nose pain, nose congestion, throat pain, throat swelling, mouth pain, mouth swelling, other Cardiovascular: Denies: no symptoms, chest pain, edema, irregular heart rate, lightheadedness, palpitations, syncope, other Respiratory: Denies: no symptoms, cough, shortness of breath, SOB with excertion, SOB at rest, sputum, wheezing, other Gastrointestinal/Abdominal: Denies: no symptoms, abdomen distended, abdominal pain, black stools, tarry stools, blood in stool, constipated, diarrhea, di fficulty swallowing, nausea, poor appetite, poor fluid intake, rectal bleeding, vomiting, other Genitourinary: Denies: no symptoms, burning, discharge, frequency, flank pain, hematuria, incontinence, pain, urgency, other Neurologic/Psychiatric: Denies: no symptoms, anxiety, depressed, emotional problems, headache, numbness, paresthesia, pre-existing deficit, seizure, tingling, tremors, weakness, other Endocrine: Denies: no symptoms, excessive sweating, flushing, intolerance to cold, intolerance to heat, increased hunger, increased thirst, increased urine, unexplained weight gain, unexplained weight loss, other Hematologic/Lymphatic: Denies: no symptoms, anemia, easy bleeding, easy bruising, adenopathy, other Allergies: Coded Allergies: PENICILLINS (Verified Allergy, Unknown, 12/05/17) Subjective 05/05 hgb 7.3 this am, plts lower, no bleeding, ptt elev, will hold off hep gtt 05/06 labs noted, no bleeding, now on lovenox sq, sis somnolent in am 05/07 is on lovenox sq, is s/p transfusion, labs noted, on abx 05/09 anticoag is held, pending for cbc today, labs noted 05/10 anticoag held, for platelets to goal >50k, with coffee ground emesis Objective Objective Current Medications Medications (Trade) Dose Ordered Sig/Enrike Route PRN Reason Start Time Stop Time Status Last Admin Dose Admin Barium Sulfate (Varibar Honey) 250 ml NOW PRN MC RAD 05/07/20 14:30 05/10/20 14:29 Barium Sulfate (Varibar [place]) 240 ml NOW PRN MC RAD 05/07/20 14:30 05/10/20 14:29 Barium Sulfate (Varibar Pudding) 230 ml NOW PRN MC RAD 05/07/20 14:30 05/10/20 14:29 Barium Sulfate (Varibar Thin Liquid powder) 148 gm NOW PRN MC RAD 05/07/20 14:30 05/10/20 14:29 Bisacodyl (Dulcolax) 10 mg DAILYPRN PRN RECTAL Constipation 05/01/20 20:30 07/30/20 20:29 Cefepime HCl 2 gm/ Dextrose 55 ml @ 110 mls/hr Q24H IVPB 05/08/20 18:00 05/15/20 17:59 05/09/20 17:04 Chlorhexidine Gluconate (Holli-Hex 2%) 1 applic 2XW TOPIC 05/06/20 09:00 08/04/20 08:59 05/06/20 08:30 Chlorhexidine Gluconate (Holli-Hex 2%) 1 applic DAILY@1999 TOPIC 05/02/20 20:00 07/31/20 19:59 05/08/20 20:23 Dextrose (Dextrose 50%) 25 ml Q30M PRN IV Hypoglycemia 05/01/20 20:30 07/30/20 20:29 Dextrose (Dextrose 50%) 50 ml Q30M PRN IV Hypoglycemia 05/01/20 20:30 07/30/20 20:29 Doxycycline Hyclate 100 mg/ Dextrose 110 ml @ 110 mls/hr Q12HR IV 05/08/20 21:00 05/15/20 20:59 05/09/20 23:15 Insulin Aspart (NovoLOG) Q6HR SUBQ 05/03/20 00:00 08/01/20 00:00 05/10/20 06:33 Metronidazole 100 ml @ 100 mls/hr Q8H IVPB 05/04/20 00:00 05/11/20 00:00 05/09/20 23:15 Midodrine (Pro-Amatine) 5 mg TID ORAL 05/09/20 13:30 08/07/20 13:29 05/09/20 17:03 Ondansetron HCl (Zofran) 4 mg Q6H PRN IVP Nausea & Vomiting 05/01/20 20:30 05/31/20 20:29 Pantoprazole (Protonix) 40 mg EVERY 12 HOURS IVP 05/08/20 21:00 06/07/20 20:59 05/09/20 23:15 Sodium Hypochlorite (Dakin's Quarter Strength) 1 applic DAILY TOPIC 05/05/20 09:00 06/04/20 08:59 05/09/20 08:05 Sodium Bicarbonate (NaHCO3) 650 mg THREE TIMES A DAY ORAL 05/02/20 18:00 06/01/20 17:59 05/09/20 17:03 Last 24 Hour Vital Signs Date Time Temp Pulse Resp B/P (MAP) Pulse Ox O2 Delivery O2 Flow Rate FiO2 05/10/20 04:00 96.8 97 22 126/60 (82) 98 05/10/20 00:00 96.4 94 22 124/64 (84) 98 05/09/20 21:00 Room Air 05/09/20 20:00 96.4 87 20 141/65 (90) 99 05/09/20 15:00 96.5 89 19 125/60 (81) 97 05/09/20 12:00 96.5 87 19 90/43 (59) 97 05/09/20 09:00 Room Air 05/09/20 07:00 98.0 75 20 141/74 (96) 94 05/09/20 00:00 98.1 75 19 132/74 (93) 95 05/08/20 21:00 Room Air 05/08/20 20:00 97.6 76 18 126/70 (88) 99 05/08/20 16:00 96.8 88 19 125/53 (77) 98 05/08/20 12:00 97.0 89 19 127/64 (85) 98 05/08/20 09:00 Room Air 05/08/20 08:00 96.7 86 18 124/57 (79) 99 Intake and Output 05/09/20 05/10/20 19:00 07:00 Intake Total 210 ml Output Total 80 ml Balance -80 ml 210 ml Intake IV Total 210 ml Output Urine Total 80 ml # Bowel Movements 1 Labs Test 05/07/20 08:30 05/07/20 13:24 05/07/20 17:49 05/08/20 00:34 White Blood Count 14.1 K/UL (4.8-10.8) Red Blood Count 2.61 M/UL (4.20-5.40) Hemoglobin 8.2 G/DL (12.0-16.0) Hematocrit 22.4 % (37.0-47.0) Mean Corpuscular Volume 86 FL (80-99) Mean Corpuscular Hemoglobin 31.3 PG (27.0-31.0) Mean Corpuscular Hemoglobin Concent 36.4 G/DL (32.0-36.0) Red Cell Distribution Width 16.1 % (11.6-14.8) Platelet Count 59 K/UL (150-450) Mean Platelet Volume 12.4 FL (6.5-10.1) Neutrophils (%) (Auto) % (45.0-75.0) Lymphocytes (%) (Auto) % (20.0-45.0) Monocytes (%) (Auto) % (1.0-10.0) Eosinophils (%) (Auto) % (0.0-3.0) Basophils (%) (Auto) % (0.0-2.0) Differential Total Cells Counted 100 Neutrophils % (Manual) 85 % (45-75) Lymphocytes % (Manual) 5 % (20-45) Monocytes % (Manual) 10 % (1-10) Eosinophils % (Manual) 0 % (0-3) Basophils % (Manual) 0 % (0-2) Band Neutrophils 0 % (0-8) Platelet Estimate Decreased Platelet Morphology Normal Anisocytosis 1+ Sodium Level 142 MMOL/L (136-145) Potassium Level 3.7 MMOL/L (3.5-5.1) Chloride Level 108 MMOL/L (98-107) Carbon Dioxide Level 18 MMOL/L (21-32) Anion Gap 17 mmol/L (5-15) Blood Urea Nitrogen 48 mg/dL (7-18) Creatinine 4.8 MG/DL (0.55-1.30) Estimat Glomerular Filtration Rate 10.9 mL/min (>60) Glucose Level 349 MG/DL (74-106) Calcium Level 7.3 MG/DL (8.5-10.1) Phosphorus Level 3.8 MG/DL (2.5-4.9) Magnesium Level 1.7 MG/DL (1.8-2.4) Hepatitis A IgM Antibody Negative (Negative) Hepatitis B Surface Antigen Negative (Negative) Hepatitis B Core IgM Antibody Negative (Negative) Hepatitis C Antibody <0.1 s/co ratio HIV (1&2) Antibody Rapid Negative (NEGATIVE) POC Whole Blood Glucose 365 MG/DL (74-106) 313 MG/DL (74-106) 319 MG/DL (74-106) Test 05/08/20 06:30 05/08/20 07:57 05/08/20 11:47 05/08/20 14:20 POC Whole Blood Glucose 324 MG/DL (74-106) 301 MG/DL (74-106) White Blood Count 17.9 K/UL (4.8-10.8) 14.6 K/UL (4.8-10.8) Red Blood Count 2.49 M/UL (4.20-5.40) 2.06 M/UL (4.20-5.40) Hemoglobin 7.8 G/DL (12.0-16.0) 6.4 G/DL (12.0-16.0) Hematocrit 22.2 % (37.0-47.0) 18.2 % (37.0-47.0) Mean Corpuscular Volume 89 FL (80-99) 89 FL (80-99) Mean Corpuscular Hemoglobin 31.2 PG (27.0-31.0) 31.1 PG (27.0-31.0) Mean Corpuscular Hemoglobin Concent 35.0 G/DL (32.0-36.0) 35.2 G/DL (32.0-36.0) Red Cell Distribution Width 14.8 % (11.6-14.8) 14.9 % (11.6-14.8) Platelet Count 53 K/UL (150-450) 55 K/UL (150-450) Mean Platelet Volume 9.9 FL (6.5-10.1) 10.8 FL (6.5-10.1) Neutrophils (%) (Auto) % (45.0-75.0) % (45.0-75.0) Lymphocytes (%) (Auto) % (20.0-45.0) % (20.0-45.0) Monocytes (%) (Auto) % (1.0-10.0) % (1.0-10.0) Eosinophils (%) (Auto) % (0.0-3.0) % (0.0-3.0) Basophils (%) (Auto) % (0.0-2.0) % (0.0-2.0) Differential Total Cells Counted 100 100 Neutrophils % (Manual) 78 % (45-75) 78 % (45-75) Lymphocytes % (Manual) 16 % (20-45) 15 % (20-45) Monocytes % (Manual) 4 % (1-10) 7 % (1-10) Eosinophils % (Manual) 2 % (0-3) 0 % (0-3) Basophils % (Manual) 0 % (0-2) 0 % (0-2) Band Neutrophils 0 % (0-8) 0 % (0-8) Platelet Estimate Decreased Decreased Platelet Morphology Normal Normal Anisocytosis 1+ 1+ Hypochromasia 1+ Sodium Level 142 MMOL/L (136-145) Potassium Level 3.0 MMOL/L (3.5-5.1) Chloride Level 111 MMOL/L (98-107) Carbon Dioxide Level 18 MMOL/L (21-32) Anion Gap 13 mmol/L (5-15) Blood Urea Nitrogen 64 mg/dL (7-18) Creatinine 5.5 MG/DL (0.55-1.30) Estimat Glomerular Filtration Rate 9.3 mL/min (>60) Glucose Level 345 MG/DL (74-106) Calcium Level 7.3 MG/DL (8.5-10.1) Phosphorus Level 3.6 MG/DL (2.5-4.9) Magnesium Level 1.7 MG/DL (1.8-2.4) Test 05/08/20 17:02 05/09/20 03:18 05/09/20 04:55 05/09/20 09:35 POC Whole Blood Glucose 286 MG/DL (74-106) 274 MG/DL (74-106) White Blood Count 15.7 K/UL (4.8-10.8) Red Blood Count 3.47 M/UL (4.20-5.40) Hemoglobin 10.7 G/DL (12.0-16.0) Hematocrit 30.2 % (37.0-47.0) Mean Corpuscular Volume 87 FL (80-99) Mean Corpuscular Hemoglobin 30.7 PG (27.0-31.0) Mean Corpuscular Hemoglobin Concent 35.3 G/DL (32.0-36.0) Red Cell Distribution Width 14.5 % (11.6-14.8) Platelet Count 23 K/UL (150-450) Mean Platelet Volume 13.6 FL (6.5-10.1) Neutrophils (%) (Auto) % (45.0-75.0) Lymphocytes (%) (Auto) % (20.0-45.0) Monocytes (%) (Auto) % (1.0-10.0) Eosinophils (%) (Auto) % (0.0-3.0) Basophils (%) (Auto) % (0.0-2.0) Differential Total Cells Counted 100 Neutrophils % (Manual) 89 % (45-75) Lymphocytes % (Manual) 6 % (20-45) Monocytes % (Manual) 3 % (1-10) Eosinophils % (Manual) 0 % (0-3) Basophils % (Manual) 0 % (0-2) Band Neutrophils 2 % (0-8) Nucleated Red Blood Cells 2 /100 WBC Platelet Estimate Decreased Platelet Morphology Giant Platelets Rare Anisocytosis 1+ Prothrombin Time 14.4 SEC (9.30-11.50) Prothromb Time International Ratio 1.3 (0.9-1.1) Activated Partial Thromboplast Time 46 SEC (23-33) Sodium Level 141 MMOL/L (136-145) Potassium Level 3.4 MMOL/L (3.5-5.1) Chloride Level 107 MMOL/L (98-107) Carbon Dioxide Level 15 MMOL/L (21-32) Anion Gap 19 mmol/L (5-15) Blood Urea Nitrogen 42 mg/dL (7-18) Creatinine 4.0 MG/DL (0.55-1.30) Estimat Glomerular Filtration Rate 13.5 mL/min (>60) Glucose Level 356 MG/DL (74-106) Calcium Level 7.3 MG/DL (8.5-10.1) Ferritin 1430 NG/ML (8-388) Total Bilirubin 1.0 MG/DL (0.2-1.0) Aspartate Amino Transf (AST/SGOT) 397 U/L (15-37) Alanine Aminotransferase (ALT/SGPT) 147 U/L (12-78) Alkaline Phosphatase 413 U/L (46-116) Total Protein 3.8 G/DL (6.4-8.2) Albumin 1.0 G/DL (3.4-5.0) Globulin 2.8 g/dL Albumin/Globulin Ratio 0.4 (1.0-2.7) Test 05/09/20 12:10 05/09/20 17:02 05/10/20 06:27 POC Whole Blood Glucose 268 MG/DL (74-106) Height (Feet): 5 Height (Inches): 7.00 Weight (Pounds): 130 Objective Physical Exam Vitals: reviewed, normal General Appearance: no apparent distress, non-toxic, lethargic HEENT: bilateral eye normal inspection, bilateral eye PERRL Neck: full range of motion, supple/symm/no masses Resp: chest non-tender, lungs clear, normal breath sounds, speaking full sentences Cardiovascular: regular rate, rhythm, no edema Gastrointestinal: normal bowel sounds, non tender Rectal: deferred Genitourinary: normal inspection, no CVA tenderness Musculoskeletal: back normal, gait/station normal, non-tender Lymphatic: no adenopathy David De Jesus MD May 10, 2020 06:54
--- NOTE | 2020-05-10 07:58 | NUR ---
NURSE HAND-OFF: Important Events on Shift: No acute events or injuries observed throughout shift. NGT clamped. Glucose monitoring. Wound care performed. Still on bilateral restraints, no redness at sites, pulses present, no injuries. HDL scheduled today. Patient Status: Stable Diet: NPO Pending Orders: N/A Pending Results/Labs: N/A Pending MD notification: N/A Latest Vital Signs: Temperature 96.8 , Pulse 97 , B/P 126 /60 , Respiratory Rate 22 , O2 SAT 98 , Room Air, O2 Flow Rate 3.0 . Vital Sign Comment: Stable Latest Hernandez Fall Score: 70 Fall Risk: High Risk Safety Measures: Call light Within Reach, Bed Alarm Zone 1, Side Rails Side Rails x3, Bed position Low and Locked. Fall Precautions: Yellow Socks Yellow Gown Report given to ZACH Avila.
[2020-05-10 08:00] VITALS: BP 153/67
--- NOTE | 2020-05-10 08:22 | General Progress Note ---
Subjective ROS Limited/Unobtainable: No Allergies: Coded Allergies: PENICILLINS (Verified Allergy, Unknown, 12/05/17) Objective Last 24 Hour Vital Signs Date Time Temp Pulse Resp B/P (MAP) Pulse Ox O2 Delivery O2 Flow Rate FiO2 05/10/20 04:00 96.8 97 22 126/60 (82) 98 05/10/20 00:00 96.4 94 22 124/64 (84) 98 05/09/20 21:00 Room Air 05/09/20 20:00 96.4 87 20 141/65 (90) 99 05/09/20 15:00 96.5 89 19 125/60 (81) 97 05/09/20 12:00 96.5 87 19 90/43 (59) 97 05/09/20 09:00 Room Air Intake and Output 05/09/20 05/10/20 19:00 07:00 Intake Total 210 ml Output Total 80 ml 150 ml Balance -80 ml 60 ml Intake IV Total 210 ml Output Urine Total 80 ml 150 ml # Bowel Movements 1 1 Laboratory Tests 05/09/20 09:35: White Blood Count 15.7H, Red Blood Count 3.47L, Hemoglobin 10.7#L, Hematocrit 30.2#L, Mean Corpuscular Volume 87, Mean Corpuscular Hemoglobin 30.7, Mean Corpuscular Hemoglobin Concent 35.3, Red Cell Distribution Width 14.5, Platelet Count 23#L, Mean Platelet Volume 13.6H, Neutrophils (%) (Auto) , Lymphocytes (%) (Auto) , Monocytes (%) (Auto) , Eosinophils (%) (Auto) , Basophils (%) (Auto) , Differential Total Cells Counted 100, Neutrophils % (Manual) 89H, Lymphocytes % (Manual) 6L, Monocytes % (Manual) 3, Eosinophils % (Manual) 0, Basophils % (Manual) 0, Band Neutrophils 2, Nucleated Red Blood Cells 2, Platelet Estimate DecreasedL, Platelet Morphology , Giant Platelets Rare, Anisocytosis 1+, Prothrombin Time 14.4H, Prothromb Time International Ratio 1.3H, Activated Partial Thromboplast Time 46H, Sodium Level 141, Potassium Level 3.4L, Chloride Level 107, Carbon Dioxide Level 15L, Anion Gap 19H, Blood Urea Nitrogen 42H, Creatinine 4.0H, Estimat Glomerular Filtration Rate 13.5, Glucose Level 356H, Calcium Level 7.3L, Ferritin 1430H, Total Bilirubin 1.0, Aspartate Amino Transf (AST/SGOT) 397H, Alanine Aminotransferase (ALT/SGPT) 147H, Alkaline Phosphatase 413H, Total Protein 3.8L, Albumin 1.0L, Globulin 2.8, Albumin/Globulin Ratio 0.4L 05/09/20 12:10: POC Whole Blood Glucose [Pending] 05/09/20 17:02: POC Whole Blood Glucose 268H 05/10/20 06:27: POC Whole Blood Glucose [Pending] Height (Feet): 5 Height (Inches): 7.00 Weight (Pounds): 130 General Appearance: confused EENT: PERRL/EOMI Neck: supple Cardiovascular: tachycardia Respiratory/Chest: decreased breath sounds Abdomen: hypoactive bowel sounds Extremities: non-tender Assessment/Plan Assessment/Plan: DM RF anemia thrombocytopenia GIB UTI dysphagia dc lovenox ppi cbc transfuse as needed abd us reviewed now has NGT and NGTF>>> nephro at 20 cc ppi bid s/p plt transfusion repeat labs in Shai Barrera MD May 10, 2020 08:22
--- NOTE | 2020-05-10 08:52 | Nephrology Progress Note ---
Assessment/Plan Plan #JYOTI - concerns for vancomycin nephrotoxicity- r/o ATN- baseline Cr 0.8- also with volume depletion # osteomyelitis of LLE- on vanco, cefepime and flagyl #AMS #diabetes # hypertension, #hyperlipidemia # dementia. - HD tomorrow - monitor hemoglobin - renal US with no acute findings - anibiotis per ID- cefepime, fluconozole and flagyl - avoid vanco for now - monitor renal output - add epo 4k TIW Subjective ROS Limited/Unobtainable: Yes Subjective UOP 450cc yesterday repeat hemoglobin 6.4 Objective Objective Last 24 Hour Vital Signs Date Time Temp Pulse Resp B/P (MAP) Pulse Ox O2 Delivery O2 Flow Rate FiO2 05/10/20 04:00 96.8 97 22 126/60 (82) 98 05/10/20 00:00 96.4 94 22 124/64 (84) 98 05/09/20 21:00 Room Air 05/09/20 20:00 96.4 87 20 141/65 (90) 99 05/09/20 15:00 96.5 89 19 125/60 (81) 97 05/09/20 12:00 96.5 87 19 90/43 (59) 97 05/09/20 09:00 Room Air Intake and Output 05/09/20 05/10/20 19:00 07:00 Intake Total 210 ml Output Total 80 ml 150 ml Balance -80 ml 60 ml Intake IV Total 210 ml Output Urine Total 80 ml 150 ml # Bowel Movements 1 1 Laboratory Tests 05/09/20 09:35: White Blood Count 15.7H, Red Blood Count 3.47L, Hemoglobin 10.7#L, Hematocrit 30.2#L, Mean Corpuscular Volume 87, Mean Corpuscular Hemoglobin 30.7, Mean Corpuscular Hemoglobin Concent 35.3, Red Cell Distribution Width 14.5, Platelet Count 23#L, Mean Platelet Volume 13.6H, Neutrophils (%) (Auto) , Lymphocytes (%) (Auto) , Monocytes (%) (Auto) , Eosinophils (%) (Auto) , Basophils (%) (Auto) , Differential Total Cells Counted 100, Neutrophils % (Manual) 89H, Lymphocytes % (Manual) 6L, Monocytes % (Manual) 3, Eosinophils % (Manual) 0, Basophils % (Manual) 0, Band Neutrophils 2, Nucleated Red Blood Cells 2, Platelet Estimate DecreasedL, Platelet Morphology , Giant Platelets Rare, Anisocytosis 1+, Prothrombin Time 14.4H, Prothromb Time International Ratio 1.3H, Activated Partial Thromboplast Time 46H, Sodium Level 141, Potassium Level 3.4L, Chloride Level 107, Carbon Dioxide Level 15L, Anion Gap 19H, Blood Urea Nitrogen 42H, Creatinine 4.0H, Estimat Glomerular Filtration Rate 13.5, Glucose Level 356H, Calcium Level 7.3L, Ferritin 1430H, Total Bilirubin 1.0, Aspartate Amino Transf (AST/SGOT) 397H, Alanine Aminotransferase (ALT/SGPT) 147H, Alkaline Phosphatase 413H, Total Protein 3.8L, Albumin 1.0L, Globulin 2.8, Albumin/Globulin Ratio 0.4L 05/09/20 12:10: POC Whole Blood Glucose [Pending] 05/09/20 17:02: POC Whole Blood Glucose 268H 05/10/20 06:27: POC Whole Blood Glucose [Pending] 05/10/20 08:00: White Blood Count [Pending], Red Blood Count [Pending], Hemoglobin [Pending], Hematocrit [Pending], Mean Corpuscular Volume [Pending], Mean Corpuscular Hemoglobin [Pending], Mean Corpuscular Hemoglobin Concent [Pending], Red Cell Distribution Width [Pending], Platelet Count [Pending], Mean Platelet Volume [Pending], Neutrophils (%) (Auto) [Pending], Lymphocytes (%) (Auto) [Pending], Monocytes (%) (Auto) [Pending], Eosinophils (%) (Auto) [Pending], Basophils (%) (Auto) [Pending], Sodium Level [Pending], Potassium Level [Pending], Chloride Level [Pending], Carbon Dioxide Level [Pending], Blood Urea Nitrogen [Pending], Creatinine [Pending], Estimat Glomerular Filtration Rate [Pending], Glucose Level [Pending], Calcium Level [Pending], Total Bilirubin [Pending], Aspartate Amino Transf (AST/SGOT) [Pending], Alanine Aminotransferase (ALT/SGPT) [[place]], Alkaline Phosphatase [Pending], Total Protein [Pending], Albumin [Pending], Globulin [Pending] Height (Feet): 5 Height (Inches): 7.00 Weight (Pounds): 130 Objective General Appearance: no apparent distress EENT: PERRL/EOMI, normal ENT inspection Neck: non-tender, normal alignment Cardiovascular: normal peripheral pulses, normal rate, regular rhythm Respiratory/Chest: chest wall non-tender, lungs clear, normal breath sounds Abdomen: normal bowel sounds, non tender Niko Waterman M.D. May 10, 2020 08:52
[2020-05-10 08:58] LABS: HEMATOCRIT 28.7 % (37.0-47.0); HEMOGLOBIN 9.8 G/DL (12.0-16.0); MEAN CORPUSCULAR VOLUME 87 FL (80-99); PLATELET COUNT 37 K/UL (150-450); RED BLOOD COUNT 3.28 M/UL (4.20-5.40); RED CELL DISTRIBUTION WIDTH 14.2 % (11.6-14.8); WHITE BLOOD COUNT 12.5 K/UL (4.8-10.8)
[2020-05-10] MEDS: Sodium Bicarbonate 650mg Tab ORAL SCH ×3 (09:36→18:13)
[2020-05-10] MEDS: Doxycycline Hyclate 100 MG in D5W 110 ML IV SCH ×2 (09:36→20:35)
[2020-05-10] MEDS: Dyna-Hex 2% Top Sol 2oz TOPIC SCH ×2 (09:36→20:35)
[2020-05-10] MEDS: Pantoprazole Inj IVP SCH ×2 (09:36→20:35)
[2020-05-10] MEDS: Dakin's 0.125% Soln (Quarter Strength) 16oz TOPIC SCH (09:38)
[2020-05-10 10:02] LABS: ALBUMIN 1.1 G/DL (3.4-5.0); ALBUMIN/GLOBULIN RATIO 0.4 (1.0-2.7); BILIRUBIN,TOTAL 1.4 MG/DL (0.2-1.0); CALCIUM 7.4 MG/DL (8.5-10.1); CREATININE 4.7 MG/DL (0.55-1.30); POTASSIUM 3.2 MMOL/L (3.5-5.1)
--- NOTE | 2020-05-10 10:32 | Diagnostic Imaging Report ---
Indication: Upper extremity pain and swelling and edema Technique: Grayscale and duplex images of the bilateral lower extremity veins Comparison: 05/03/2020 Findings: Thrombus is seen within the left subclavian and axillary veins. This is incompletely occlusive, results in noncompressibility. Thrombus is also seen in the left brachial vein. The basilic vein is patent. The cephalic vein could not be visualized. On the right, grayscale and duplex images demonstrate no evidence of intraluminal thrombus. Normal phasic Doppler waveforms, normal compressibility. Impression: Positive for incompletely occlusive left subclavian, axillary, brachial venous thrombosis, also previously described 7 days earlier No evidence of right upper extremity venous thrombosis
[2020-05-10 10:45] LABS: BILIRUBIN,DIRECT 0.9 MG/DL (0.0-0.3)
[2020-05-10 12:00] VITALS: BP 139/60
--- NOTE | 2020-05-10 12:36 | General Progress Note ---
Subjective Date patient seen: May 10, 2020 ROS Limited/Unobtainable: Yes Allergies: Coded Allergies: PENICILLINS (Verified Allergy, Unknown, 12/05/17) Subjective Patient BP improved today after IVF yesterday. Plt count slightly improved but still low. GI bleed likely from NG tube insertion. Patient still encephalopathic, still not able to open eyes or verbalize today though moving spontaneously. Unable to obtain ROS due to ALOC Objective Last 24 Hour Vital Signs Date Time Temp Pulse Resp B/P (MAP) Pulse Ox O2 Delivery O2 Flow Rate FiO2 05/10/20 12:00 97.2 95 24 139/60 (86) 95 05/10/20 08:00 97.3 86 24 153/67 (95) 97 05/10/20 04:00 96.8 97 22 126/60 (82) 98 05/10/20 00:00 96.4 94 22 124/64 (84) 98 05/09/20 21:00 Room Air 05/09/20 20:00 96.4 87 20 141/65 (90) 99 05/09/20 15:00 96.5 89 19 125/60 (81) 97 Intake and Output 05/09/20 05/10/20 18:59 06:59 Intake Total 210 ml Output Total 80 ml 150 ml Balance -80 ml 60 ml Intake IV Total 210 ml Output Urine Total 80 ml 150 ml # Bowel Movements 1 1 Laboratory Tests 05/09/20 17:02: POC Whole Blood Glucose 268H 05/09/20 23:29: POC Whole Blood Glucose 275H 05/10/20 06:27: POC Whole Blood Glucose [Pending] 05/10/20 08:00: White Blood Count 12.5H, Red Blood Count 3.28L, Hemoglobin 9.8L, Hematocrit 28.7L, Mean Corpuscular Volume 87, Mean Corpuscular Hemoglobin 29.8, Mean Corpuscular Hemoglobin Concent 34.1, Red Cell Distribution Width 14.2, Platelet Count 37#L, Mean Platelet Volume 11.7H, Neutrophils (%) (Auto) , Lymphocytes (%) (Auto) , Monocytes (%) (Auto) , Eosinophils (%) (Auto) , Basophils (%) (Auto) , Differential Total Cells Counted 100, Neutrophils % (Manual) 83H, Lymphocytes % (Manual) 15L, Monocytes % (Manual) 2, Eosinophils % (Manual) 0, Basophils % (Manual) 0, Band Neutrophils 0, Platelet Estimate DecreasedL, Platelet Morphology Normal, Hypochromasia 1+, Anisocytosis 1+, Sodium Level 141, Potassium Level 3.2L, Chloride Level 107, Carbon Dioxide Level 17L, Anion Gap 17H, Blood Urea Nitrogen 49H, Creatinine 4.7H, Estimat Glomerular Filtration Rate 11.2, Glucose Level 332H, Calcium Level 7.4L, Total Bilirubin 1.4H, Direct Bilirubin 0.9H, Aspartate Amino Transf (AST/SGOT) 296H, Alanine Aminotransferase (ALT/SGPT) 121H, Alkaline Phosphatase 450H, Total Protein 4.0L, Albumin 1.1L, Globulin 2.9, Albumin/Globulin Ratio 0.4L 05/10/20 11:36: POC Whole Blood Glucose 281H Height (Feet): 5 Height (Inches): 7.00 Weight (Pounds): 130 Objective General: WDWN female in NAD, A&O x 0 (baseline is A&o x 1), sleeping but arousable, not conversant, not following commands. No signs of bleeding. Bed back to flat position today. HEENT: Normocephalic atraumatic, nares patent and no symmetrical, mucous membranes moist CV: Regular rate regular rhythm, no murmurs, rubs, or gallops Pulm: Lungs clear to auscultation bilaterally. No wheezes, rhonchi, or rales GI: Soft, nontender, nondistended, bowel sounds present Neuro: grossly intact, no focal signs. Ext: No lower extremity edema bilaterally. LUE 1+ edema Skin: no rashes lesions or ulcers Msk: Moves arms spontaneously. Joints symmetrical in upper extremity and lower extremity bilaterally, no joint swelling. Lymph: No lymphadenopathy in upper extremity and lower extremity CXR 05/04/2020 Technique: One view of the chest Comparison: 03/31/2020 Findings: Interim placement of a right jugular temporary dialysis catheter in satisfactory position. No pneumothorax. The lungs and pleural spaces are clear. The heart size is normal Impression: No acute process Assessment/Plan Assessment/Plan: This is a 69-year-old female presenting with acute encephalopathy, JYOTI, acute UTI. #Hypotension - possibly hypovolemic from dialysis volume removal. Improved today #Acute kidney injury, suspect possible Vanc toxicity vs. component of pre renal as well. FeNA elevated suggesting intrinsic process #Renal failure on HD #Anemia - severe, no signs of bleeding #Thrombocytopenia - transfuse plts 05/09 #Hypokalemia #Hypomagnesemia > FeNA 3.8% suspect intrinsic -IVF bolus PRN -Had extensive discussion with patient's sister about GOC, patient now DNR/DNI. No plan for detention artificial feeding via PEG tube. Should patient continue to worsen, another conversation will be had regarding potential transition to comfort care. Given poor overall status, permanent dialysis catheter also not recommended since cannot reverse underlying condition and with minimal chance of recovery. Will need to continue GOC discussion with family. -Urine sodium, urine creatinine, urine eosinophils: reviewed -Renal ultrasound: no hydro, medical renal disease - transfuse PRN with HD - GI consult Dr. Hay, pending recs - Vargas catheter for strict I's and O's -Check vanc level: in 30s - IV fluids per nephro - HD per nephro, catheter in place per xray read -Avoid nephrotoxins -Trend creatinine -Appreciate nephro consult: Dr. Waterman -mario carey PRN - d/w Sister Elisha who is medical decision maker. Confirmed ok with HD (pending consent by Nephro) #Acute metabolic encephalopathy #Underlying dementia #Malnutrition #Acute UTI #LLE osteomyelitis s/p debridement on 04/07/2020 with bone biopsy and cultures obtained. #Stage II sacral decubitus ulcer > CTH no acute abnormality >EKG reviewed -Blood cultures -Urine culture - Speech swallow eval, may need to consider PEG -Appreciate ID consult: Bola -Appreciate gen surgery consult: Jasmeet -Neurology consult: D/w Dr. Lee -Holding Vanc due to elevated Vanco level - Switch to doxycycline instead (04/07 - ) -Continue Cefepime (renally dosed). (04/07 - ) -Continue Flagyl (04/07 - ) -Continue Abx for 42 days -swallow eval: pending -check TSH: normal -check lactate: normal -trend troponin: normal #Acute LUE DVT, picc related - D/w Heme and surgery - remove PICC line - heparin GTT #DM2 -Hold lantus -hold metformin -SSI -accuchecks -hypoglycemia protocol #essential hypertension #hyperlipidemia -hold home amlodipine for now -hold benazepril -holding asa -holding statin FENPPX DVTPPX: HSQ Fluids: as above Diet: NPO pending swallow eval Lines: PIV, LUE PICC PT/OT: pending Code status: DNR/DNI Dispo: back to SNF Reason for Continued Hospitalization: hypotension, jyoti/renal failure, AMS, anemia MIPS ([employer]-based Incentive Payment System) Applicable CPT: 81391, 78684 CHECK ALL THAT ARE MET: [] Measure #5 (CHF): All ages. Prescribe DESTINEY/ARB upon discharge for patients with left ventricular systolic dysfunction. If not, the reason is clearly documented in the medical chart [] Measure #8 (CHF): All ages. Prescribe a beta jennifer upon discharge for patients with left ventricular systolic dysfunction. If not, the reason is clearly documented in the medical chart. [] Measure #47: Advance care plan or surrogate decision maker documented in the medical record. [x] Measure #130 The provider has documented, updated, or reviewed the patients current medication list and has documented it in the patients note. [x] Measure #374 (All): Send report to referring provider. [] Measure #407(Sepsis due to MSSA bacteremia): Age 18+ Patient treated with a beta-lactam antibiotic (Nafcillin, Oxacillin or Cefazolin) as definitive therapy. MEDICAL COMPLEXITYHigh complexity medical decision making (need 2/3 categories)Problem - need 4 points [x]Acute/new problem with new plan for workup (4 points, 1 max) [] Acute/new problem without additional workup (3 points, 1 max) [x] Unstable chronic problem actively being managed (2 point each, 2 max) [x] Stable chronic problem actively being managed (1 point each, 2 max) [x] Self-limited/transient process (constipation, muscle ache, etc) (1 point each, 2 max) Data - need 4 points [x] Reviewed labs/imaging studies (1 points, 2 max) [x] Independent review of imaging (EKG, xrays, etc) (2 points, 2 max) [x] Discussed case with consult/other MD/RN (2 points, 2 max) High Risk - qualify if have one of the following: [x] Severe exacerbation of acute problem, acute mental status change, IV narcotics, monitoring drug levels (vancomycin, INR, tacrolimus etc) I spent 40 minutes on this patient's case, and 25 mins was dedicated to counseling and/or care coordination. Discussed with nephro, ID, gen surgery, neurology. Time of note may not reflect time of encounter Carlton Story M.D. May 10, 2020 12:36
--- NOTE | 2020-05-10 15:16 | Infectious Diseases Prog Note ---
Assessment/Plan Assessment/Plan ASSESSMENT AND PLAN: 1. 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 sepsis, leukocytosis, fungal uti, JYOTI, blood cultures negative, chest x-ray negative - cefepime, doxycycline, flagyl - day # 33/42 -s/p diflucan - monitor labs - wound management per surgery - leukocytosis improved 2. Acute renal failure. Dialysis. 3. Diabetes. 4. Hypertension. 5. Dyslipidemia. 6. Diabetes and hypertension treatment per primary care team. 7. Anemia. 8. Wound care per Surgery. 9. Allergic to penicillin. 10. Social history is negative. 11. Family history is noncontributory. 12. MAR is noted. 13. Case discussed with RN. Subjective Constitutional: Reports: fatigue; Denies: fever HEENT: Denies: congestion Respiratory: Denies: shortness of breath Cardiovascular: Denies: chest pain Gastrointestinal/Abdominal: Denies: nausea, vomiting, diarrhea Genitourinary: Reports: other - + alaniz Neurologic: Reports: weakness, other - lethargic ; Denies: headache Psychiatric: Reports: other - NA Skin: Denies: rash Hematologic: Denies: bleeding Musculoskeletal: Reports: other - NA Allergies: Coded Allergies: PENICILLINS (Verified Allergy, Unknown, 12/05/17) Objective Last 24 Hour Vital Signs Date Time Temp Pulse Resp B/P (MAP) Pulse Ox O2 Delivery O2 Flow Rate FiO2 05/10/20 12:00 97.2 95 24 139/60 (86) 95 05/10/20 09:00 Room Air 05/10/20 08:00 97.3 86 24 153/67 (95) 97 05/10/20 04:00 96.8 97 22 126/60 (82) 98 05/10/20 00:00 96.4 94 22 124/64 (84) 98 05/09/20 21:00 Room Air 05/09/20 20:00 96.4 87 20 141/65 (90) 99 05/09/20 15:00 96.5 89 19 125/60 (81) 97 Height (Feet): 5 Height (Inches): 7.00 Weight (Pounds): 130 General Appearance: no acute distress HEENT: normocephalic, atraumatic, anicteric, mucous membranes moist Respiratory/Chest: lungs clear, normal breath sounds, no respiratory distress Cardiovascular: normal rate, regular rhythm, no gallop/murmur Abdomen: normal bowel sounds, soft, non tender, no organomegaly, non distended Genitourinary: other - + alaniz - urine slt cloudy Extremities: no cyanosis, other - wounds Skin: no rash Neurologic/Psychiatric: other - weak, lethargic Lymphatic: no neck adenopathy Musculoskeletal: no effusion Chest x-ray - 05/04/20 - Procedure: XRAY Chest 1v Indication: Shortness of breath Technique: One view of the chest Comparison: 03/31/2020 Findings: Interim placement of a right jugular temporary dialysis catheter in satisfactory position. No pneumothorax. The lungs and pleural spaces are clear. The heart size is normal Impression: No acute process Microbiology Date/Time Source Procedure Growth Status 05/01/20 15:50 Urine,Clean Catch Urine Culture - Preliminary Yeast Species Resulted 05/01/20 15:30 Rectum - Final NO CARBAPENEM-RESISTANT ENTEROBACTERI... Complete 05/01/20 15:30 Nasal Nares MRSA Culture - Final NO METHICILLIN RESISTANT STAPH AUREUS... Complete 05/01/20 07:10 Blood Blood Culture - Final NO GROWTH AFTER 5 DAYS Complete Laboratory Tests Test 05/09/20 17:02 05/09/20 23:29 05/10/20 06:27 05/10/20 08:00 POC Whole Blood Glucose 268 MG/DL (74-106) H 275 MG/DL (74-106) H Pending White Blood Count 12.5 K/UL (4.8-10.8) H Red Blood Count 3.28 M/UL (4.20-5.40) L Hemoglobin 9.8 G/DL (12.0-16.0) L Hematocrit 28.7 % (37.0-47.0) L Mean Corpuscular Volume 87 FL (80-99) Mean Corpuscular Hemoglobin 29.8 PG (27.0-31.0) Mean Corpuscular Hemoglobin Concent 34.1 G/DL (32.0-36.0) Red Cell Distribution Width 14.2 % (11.6-14.8) Platelet Count 37 K/UL (150-450) #L Mean Platelet Volume 11.7 FL (6.5-10.1) H Neutrophils (%) (Auto) % (45.0-75.0) Lymphocytes (%) (Auto) % (20.0-45.0) Monocytes (%) (Auto) % (1.0-10.0) Eosinophils (%) (Auto) % (0.0-3.0) Basophils (%) (Auto) % (0.0-2.0) Differential Total Cells Counted 100 Neutrophils % (Manual) 83 % (45-75) H Lymphocytes % (Manual) 15 % (20-45) L Monocytes % (Manual) 2 % (1-10) Eosinophils % (Manual) 0 % (0-3) Basophils % (Manual) 0 % (0-2) Band Neutrophils 0 % (0-8) Platelet Estimate Decreased L Platelet Morphology Normal Hypochromasia 1+ Anisocytosis 1+ Sodium Level 141 MMOL/L (136-145) Potassium Level 3.2 MMOL/L (3.5-5.1) L Chloride Level 107 MMOL/L (98-107) Carbon Dioxide Level 17 MMOL/L (21-32) L Anion Gap 17 mmol/L (5-15) H Blood Urea Nitrogen 49 mg/dL (7-18) H Creatinine 4.7 MG/DL (0.55-1.30) H Estimat Glomerular Filtration Rate 11.2 mL/min (>60) Glucose Level 332 MG/DL (74-106) H Calcium Level 7.4 MG/DL (8.5-10.1) L Total Bilirubin 1.4 MG/DL (0.2-1.0) H Direct Bilirubin 0.9 MG/DL (0.0-0.3) H Aspartate Amino Transf (AST/SGOT) 296 U/L (15-37) H Alanine Aminotransferase (ALT/SGPT) 121 U/L (12-78) H Alkaline Phosphatase 450 U/L (46-116) H Total Protein 4.0 G/DL (6.4-8.2) L Albumin 1.1 G/DL (3.4-5.0) L Globulin 2.9 g/dL Albumin/Globulin Ratio 0.4 (1.0-2.7) L Test 05/10/20 11:36 POC Whole Blood Glucose 281 MG/DL (74-106) H Current Medications Medications (Trade) Dose Ordered Sig/Enrike Route PRN Reason Start Time Stop Time Status Last Admin Dose Admin Bisacodyl (Dulcolax) 10 mg DAILYPRN PRN RECTAL Constipation 05/01/20 20:30 07/30/20 20:29 Cefepime HCl 2 gm/ Dextrose 55 ml @ 110 mls/hr Q24H IVPB 05/08/20 18:00 05/15/20 17:59 05/09/20 17:04 Chlorhexidine Gluconate (Holli-Hex 2%) 1 applic 2XW TOPIC 05/06/20 09:00 08/04/20 08:59 05/10/20 09:36 Chlorhexidine Gluconate (Holli-Hex 2%) 1 applic DAILY@1999 TOPIC 05/02/20 20:00 07/31/20 19:59 05/08/20 20:23 Dextrose (Dextrose 50%) 25 ml Q30M PRN IV Hypoglycemia 05/01/20 20:30 07/30/20 20:29 Dextrose (Dextrose 50%) 50 ml Q30M PRN IV Hypoglycemia 05/01/20 20:30 07/30/20 20:29 Doxycycline Hyclate 100 mg/ Dextrose 110 ml @ 110 mls/hr Q12HR IV 05/08/20 21:00 05/15/20 20:59 05/10/20 09:36 Insulin Aspart (NovoLOG) Q6HR SUBQ 05/03/20 00:00 08/01/20 00:00 05/10/20 11:43 Metronidazole 100 ml @ 100 mls/hr Q8H IVPB 05/04/20 00:00 05/11/20 00:00 05/10/20 09:52 Midodrine (Pro-Amatine) 5 mg TID ORAL 05/09/20 13:30 08/07/20 13:29 05/10/20 13:18 Ondansetron HCl (Zofran) 4 mg Q6H PRN IVP Nausea & Vomiting 05/01/20 20:30 05/31/20 20:29 Pantoprazole (Protonix) 40 mg EVERY 12 HOURS IVP 05/08/20 21:00 06/07/20 20:59 05/10/20 09:36 Sodium Hypochlorite (Dakin's Quarter Strength) 1 applic DAILY TOPIC 05/05/20 09:00 06/04/20 08:59 05/10/20 09:38 Sodium Bicarbonate (NaHCO3) 650 mg THREE TIMES A DAY ORAL 05/02/20 18:00 06/01/20 17:59 05/10/20 13:18 Elyse Leung MD May 10, 2020 15:16
[2020-05-10 16:00] VITALS: BP 163/72
--- NOTE | 2020-05-10 17:33 | NUR ---
CASE MANAGEMENT:REVIEW SI;JYOTI. RENAL FAILURE. DVT. UTI. 97.3 97 24 153/67 95% ON RA WBC 12.5 H/H 9.8/28.7 PLT 37 K+ 3.2 BUN 49 CR 4.7 BG 332 CA 7.4 T-BILI 1.4 D-BILI 0.9 AST 296 ALT 121 ALP 450 ALB 1.1 IS;FLAGYL PO Q8 MIDODRINE PO TID DOXYCYCLINE IV Q12 PROTONIX IV Q12 CEFEPIME IV QD NaHCO3 PO TID MED SURG STATUS DCP;FROM [facility]
--- NOTE | 2020-05-10 17:45 | Surgery Progress Note ---
Surgery Progress Note Subjective Additional Comments dnr/dni plt low ill appearing dressings okay discussed with pcp ?permacath Objective Last 24 Hour Vital Signs Date Time Temp Pulse Resp B/P (MAP) Pulse Ox O2 Delivery O2 Flow Rate FiO2 05/10/20 12:00 97.2 95 24 139/60 (86) 95 05/10/20 09:00 Room Air 05/10/20 08:00 97.3 86 24 153/67 (95) 97 05/10/20 04:00 96.8 97 22 126/60 (82) 98 05/10/20 00:00 96.4 94 22 124/64 (84) 98 05/09/20 21:00 Room Air 05/09/20 20:00 96.4 87 20 141/65 (90) 99 I&O Intake and Output 05/09/20 05/10/20 19:00 07:00 Intake Total 210 ml Output Total 80 ml 150 ml Balance -80 ml 60 ml Intake IV Total 210 ml Output Urine Total 80 ml 150 ml # Bowel Movements 1 1 Dressing: dry Cardiovascular: RSR Respiratory: clear, decreased breath sounds Abdomen: soft, non-tender, present bowel sounds Extremities: no tenderness, no cyanosis Laboratory Tests Test 05/09/20 23:29 05/10/20 06:27 05/10/20 08:00 05/10/20 11:36 POC Whole Blood Glucose 275 MG/DL (74-106) H Pending 281 MG/DL (74-106) H White Blood Count 12.5 K/UL (4.8-10.8) H Red Blood Count 3.28 M/UL (4.20-5.40) L Hemoglobin 9.8 G/DL (12.0-16.0) L Hematocrit 28.7 % (37.0-47.0) L Mean Corpuscular Volume 87 FL (80-99) Mean Corpuscular Hemoglobin 29.8 PG (27.0-31.0) Mean Corpuscular Hemoglobin Concent 34.1 G/DL (32.0-36.0) Red Cell Distribution Width 14.2 % (11.6-14.8) Platelet Count 37 K/UL (150-450) #L Mean Platelet Volume 11.7 FL (6.5-10.1) H Neutrophils (%) (Auto) % (45.0-75.0) Lymphocytes (%) (Auto) % (20.0-45.0) Monocytes (%) (Auto) % (1.0-10.0) Eosinophils (%) (Auto) % (0.0-3.0) Basophils (%) (Auto) % (0.0-2.0) Differential Total Cells Counted 100 Neutrophils % (Manual) 83 % (45-75) H Lymphocytes % (Manual) 15 % (20-45) L Monocytes % (Manual) 2 % (1-10) Eosinophils % (Manual) 0 % (0-3) Basophils % (Manual) 0 % (0-2) Band Neutrophils 0 % (0-8) Platelet Estimate Decreased L Platelet Morphology Normal Hypochromasia 1+ Anisocytosis 1+ Sodium Level 141 MMOL/L (136-145) Potassium Level 3.2 MMOL/L (3.5-5.1) L Chloride Level 107 MMOL/L (98-107) Carbon Dioxide Level 17 MMOL/L (21-32) L Anion Gap 17 mmol/L (5-15) H Blood Urea Nitrogen 49 mg/dL (7-18) H Creatinine 4.7 MG/DL (0.55-1.30) H Estimat Glomerular Filtration Rate 11.2 mL/min (>60) Glucose Level 332 MG/DL (74-106) H Calcium Level 7.4 MG/DL (8.5-10.1) L Total Bilirubin 1.4 MG/DL (0.2-1.0) H Direct Bilirubin 0.9 MG/DL (0.0-0.3) H Aspartate Amino Transf (AST/SGOT) 296 U/L (15-37) H Alanine Aminotransferase (ALT/SGPT) 121 U/L (12-78) H Alkaline Phosphatase 450 U/L (46-116) H Total Protein 4.0 G/DL (6.4-8.2) L Albumin 1.1 G/DL (3.4-5.0) L Globulin 2.9 g/dL Albumin/Globulin Ratio 0.4 (1.0-2.7) L Plan Problems: (1) UTI (urinary tract infection) (2) JYOTI (acute kidney injury) (3) Hyperkalemia (4) Leukocytosis Assessment & Plan: dvt upper extremity picc related remove picc once temp line in anticoag as per heme worsening leukocytosis on abx (5) Sepsis (6) Altered mental status (7) Sacral decubitus ulcer Assessment & Plan: 69-year-old female multiple comorbidities presented with failure to thrive lethargic altered mental status noted to have abnormal labs and have draining bilateral heel unstageable decubitus ulcers multiple skin lesions on the lower extremities as well as a sacral decubitus ulcer as well. Imaging reviewed. Patient has been eating less recently but currently is eating at the bedside though does not look like she is taking much in. Treatment plan Turn every 2 hours Offload pressure with pillows pillow on side as necessary as well as underneath calf to elevate heels Air soft mattress nutritional optimization continue IV antibiotics per infectious disease SACRUM- STAGE - UNSTAGEABLE PRESSURE ULCER MEASURES 6.0X13.0X0.2. WOUND BED WITH 80% SLOUGH AND 20% PINK GRANULATION TISSUE. NOTED FOUL ODOR RECOMMEND-CLEAN WITH SALINE. APPLY WET TO DRY DRESSINGS WITH DAKINS 0.25% DAKIN'S SOLUTION.COVER WITH OPTIFOAM DRESSING. REPLACE DRESSING DAILY. LEFT ISCHIUM-STAGE II PRESSURE ULCER MEASURES 4.5X0.5X0.2CM. PINK GRANULATION TISSUE NOTED. RECOMMEND- CLEAN WITH SALINE, PAT DRY. APPLY CALAZINE AND COVER WITH OPTIFOAM DRESSING. LEFT ANTERIOR LOW LEG-VENOUS ULCER MEASURES 8.0X2.6X0.2CM 100% YELLOW SLOUGH NOTED TO WOUND BED. RECOMMEND- CLEAN WITH SALINE, PA DRY. APPLY THERAHONEY. COVER WITH GAUZE AND SECURE WITH KERLIX. REPLACE DRESSING DAILY. LEFT HEEL- UNSTAGEABLE PRESSURE ULCER MEASURES 9.5X8.0X0.3CM. 100% MOIST BLACK ESCHAR. WITH STRONG FOUL ODOR. RECOMMEND- CLEAN WITH SALINE. APPLY WET TO DRY DRESSINGS WITH DAKINS 0.25% D MELO'S SOLUTION. COVER WITH GAUZE, ABD PAD AND SECURE WITH KERLIX. REPLACE DAILY. RIGHT ANTERIOR LOW LEG-VENOUS ULCER MEASURES 2.5X3.0X0.2CM WITH PINK GRANULATION TISSUE. RIGHT ANTERIOR DISTAL LOW LEG -VENOUS ULCER MEASURES 1.5X0.2X0.1CM WITH PINK GRANULATION TISSUE. RECOMMEND-CLEAN WITH SALINE PAT DRY. APPLY XEROFORM GAUZE, GAUZE AND COVER WITH KERLIX. REPLACE DAILY RIGHT HEEL-DTI MEASURES 2.5X3.0CM. AREA DARK PURPLE IN COLOR AND BOGGY TO TOUCH. NO DRAINAGE NOTED. RECOMMEND- PAINT WITH CAVILON SKIN PROTECTOR, GAUZE AND WRAP WITH KERLIX. REPLACE DAILY. We will follow with recommendations thank you for letting participate patient's care Fairly numerous bubbles of soft tissue gas are seen within the subcutaneous fat and possibly the intrinsic musculature of the plantar surface of the heel. There is high STIR and decreased T1 signal within the calcaneus, and there is indistinctness of the inferior and posterior cortical margins of the calcaneus. There is some soft tissue ulceration of the plantar surface of the heel, as well as marked thinning of the subcutaneous fat overlying the calcaneal tuberosity. There is considerable edema of the plantar surface subcutaneous fat. There is also edema of the subcutaneous fat of the lateral and medial ankle. No focal discrete fluid collection to suggest drainable abscess demonstrated. Impression: Evidence of ulceration overlying the calcaneal tuberosity Soft tissue gas within the heel, as described. This may represent penetration the above, but is worrisome for infection with a gas-forming organism Abnormal signal within the posterior and mid calcaneus, highly suspicious for acute osteomyelitis (8) Decubitus ulcer of heel (9) Diabetes mellitus out of control (10) Acute on chronic renal failure (11) NSTEMI (non-ST elevated myocardial infarction) (12) High anion gap metabolic acidosis Joseph Alamo May 10, 2020 17:45
[2020-05-10] MEDS: Cefepime HCl 2 GM in D5W 55 ML IVPB SCH (18:13)
--- NOTE | 2020-05-10 19:51 | NUR ---
NURSE HAND-OFF: Important Events on Shift:[] Patient Status: [] Diet: [] Pending Orders: [] Pending Results/Labs:[] Pending MD notification:[] Latest Vital Signs: Temperature 97.7 , Pulse 102 , B/P 163 /72 , Respiratory Rate 20 , O2 SAT 96 , Room Air, O2 Flow Rate 3.0 . Vital Sign Comment: [] Latest Hernandez Fall Score: 70 Fall Risk: High Risk Safety Measures: Call light Within Reach, Bed Alarm Zone 1, Side Rails Side Rails x3, Bed position Low and Locked. Fall Precautions: Yellow Socks Yellow Gown Report given to [RN Brandon].
--- NOTE | 2020-05-10 19:55 | NUR ---
NURSE NOTES: The patient is currently undergoing dialysis is aphasic, awake and doesn't seem to be in any active distress at this time. She is room air and saturating well.Patient has a Right IJ central line for HD in place, dressing CDI. FC in place under gravity, no output noted.She has a P200 mattress in place due to sacral pressure ulcer and Bilateral heel sores. Bed in lowest position, siderails upx2 and call light within easy reach.will continue to monitor.
[2020-05-10 20:00] VITALS: BP 145/71
--- NOTE | 2020-05-10 21:20 | NUR ---
NURSE NOTES: The patient completed dialysis, the BP is low @ B/P 80/41.Dr. Waterman was called and Human albumen was given as indicated.Will continue to monitor
--- NOTE | 2020-05-10 21:39 | Neurology Progress Note ---
Interim History Interim History ROS Limited/Unobtainable: Yes Interim History remains non verbal Objective Physical Exam Last Vital Signs Date Time Temp Pulse Resp B/P (MAP) Pulse Ox O2 Delivery O2 Flow Rate FiO2 05/10/20 16:00 97.7 102 20 163/72 (102) 96 05/10/20 09:00 Room Air 05/05/20 16:12 3.0 99 Laboratory Tests Test 05/09/20 23:29 05/10/20 06:27 05/10/20 08:00 05/10/20 11:36 POC Whole Blood Glucose 275 MG/DL (74-106) H Pending 281 MG/DL (74-106) H White Blood Count 12.5 K/UL (4.8-10.8) H Red Blood Count 3.28 M/UL (4.20-5.40) L Hemoglobin 9.8 G/DL (12.0-16.0) L Hematocrit 28.7 % (37.0-47.0) L Mean Corpuscular Volume 87 FL (80-99) Mean Corpuscular Hemoglobin 29.8 PG (27.0-31.0) Mean Corpuscular Hemoglobin Concent 34.1 G/DL (32.0-36.0) Red Cell Distribution Width 14.2 % (11.6-14.8) Platelet Count 37 K/UL (150-450) #L Mean Platelet Volume 11.7 FL (6.5-10.1) H Neutrophils (%) (Auto) % (45.0-75.0) Lymphocytes (%) (Auto) % (20.0-45.0) Monocytes (%) (Auto) % (1.0-10.0) Eosinophils (%) (Auto) % (0.0-3.0) Basophils (%) (Auto) % (0.0-2.0) Differential Total Cells Counted 100 Neutrophils % (Manual) 83 % (45-75) H Lymphocytes % (Manual) 15 % (20-45) L Monocytes % (Manual) 2 % (1-10) Eosinophils % (Manual) 0 % (0-3) Basophils % (Manual) 0 % (0-2) Band Neutrophils 0 % (0-8) Platelet Estimate Decreased L Platelet Morphology Normal Hypochromasia 1+ Anisocytosis 1+ Sodium Level 141 MMOL/L (136-145) Potassium Level 3.2 MMOL/L (3.5-5.1) L Chloride Level 107 MMOL/L (98-107) Carbon Dioxide Level 17 MMOL/L (21-32) L Anion Gap 17 mmol/L (5-15) H Blood Urea Nitrogen 49 mg/dL (7-18) H Creatinine 4.7 MG/DL (0.55-1.30) H Estimat Glomerular Filtration Rate 11.2 mL/min (>60) Glucose Level 332 MG/DL (74-106) H Calcium Level 7.4 MG/DL (8.5-10.1) L Total Bilirubin 1.4 MG/DL (0.2-1.0) H Direct Bilirubin 0.9 MG/DL (0.0-0.3) H Aspartate Amino Transf (AST/SGOT) 296 U/L (15-37) H Alanine Aminotransferase (ALT/SGPT) 121 U/L (12-78) H Alkaline Phosphatase 450 U/L (46-116) H Total Protein 4.0 G/DL (6.4-8.2) L Albumin 1.1 G/DL (3.4-5.0) L Globulin 2.9 g/dL Albumin/Globulin Ratio 0.4 (1.0-2.7) L Test 05/10/20 16:38 05/10/20 20:46 POC Whole Blood Glucose 277 MG/DL (74-106) H 239 MG/DL (74-106) H Impression/Recommendations Problems: (1) Sepsis (2) Hyperkalemia (3) Leukocytosis (4) Altered mental status (5) Diabetes mellitus out of control (6) Acute on chronic renal failure (7) NSTEMI (non-ST elevated myocardial infarction) (8) High anion gap metabolic acidosis (9) Sacral decubitus ulcer (10) Decubitus ulcer of heel (11) UTI (urinary tract infection) (12) JYOTI (acute kidney injury) Diagnostic Impression acute metabolic encephalopathy jyoti sepsis baseline dementia cont ivfs delirium precautions no need for mri brain cont Thee Burden MD May 10, 2020 21:39
[2020-05-10] MEDS: metroNIDAZOLE 500mg tab ORAL SCH (22:13)
[2020-05-11] VITALS: BP 139/67
[2020-05-11 04:00] VITALS: BP 144/61
[2020-05-11] MEDS: NovoLOG Insulin Flexpen SUBQ SCH ×4 (05:48→18:00)
[2020-05-11] MEDS: metroNIDAZOLE 500mg tab ORAL SCH ×3 (06:19→22:02)
--- NOTE | 2020-05-11 06:29 | Hematology/Onc Progress Note ---
Assessment/Plan Assessment/Plan Assessment and Recs # Left upper extremity axillary, subclavian, and brachial venous thrombosis --> heparin gtt was started-->now changed to lovenox as supertherapeutic->now HELD due to severe anemia --> consider eliquis or coumadin once closer to dc --> patient does have eleno/ckd, thus agent needed not affected by renal function --> monitor for bleed # Thrombocytopenia likely secondary to left heel and foot osteomyelitis/ infection/dic --> likely due to infected wounds, heel ulcerations --> ABX flucon/flagyl/cefepime-->doxy/cefepime --> Peripheral smear, reviewed, hold off flow for now --> elev inflammatory markers --> WBC 35-->22-->18-->14-->13-->11.4->>>13-->17 --> plt 55-->23 # Anemia due to underlying chronic disease. --> Continue to closely monitor for improvement. --> Anemia w/u has been reviewed. Will trend cbc daily. --> Hgb goal >7 -> hgb 12-->10.7->9.4-->9.5->10-->7.3-->5.7-->6.2-->8-->6.4-->10 --> 2 units 05/07 --> anemia panel reviewed before # Hyperkalemia. Given Kayexalate. --> Improved # Diabetic ketoacidosis. --> per before, improved # ESRD --> hd with line inserted # Shortness of breath in past with dka # Dvt ppx --> scds The time the note was entered does not necessarily correspond to the time the patient was seen. Subjective HEENT: Denies: no symptoms, eye pain, blurred vision, tearing, double vision, ear pain, ear discharge, nose pain, nose congestion, throat pain, throat swelling, mouth pain, mouth swelling, other Cardiovascular: Denies: no symptoms, chest pain, edema, irregular heart rate, lightheadedness, palpitations, syncope, other Respiratory: Denies: no symptoms, cough, shortness of breath, SOB with excertion, SOB at rest, sputum, wheezing, other Gastrointestinal/Abdominal: Denies: no symptoms, abdomen distended, abdominal pain, black stools, tarry stools, blood in stool, constipated, diarrhea, di fficulty swallowing, nausea, poor appetite, poor fluid intake, rectal bleeding, vomiting, other Genitourinary: Denies: no symptoms, burning, discharge, frequency, flank pain, hematuria, incontinence, pain, urgency, other Neurologic/Psychiatric: Denies: no symptoms, anxiety, depressed, emotional problems, headache, numbness, paresthesia, pre-existing deficit, seizure, tingling, tremors, weakness, other Endocrine: Denies: no symptoms, excessive sweating, flushing, intolerance to cold, intolerance to heat, increased hunger, increased thirst, increased urine, unexplained weight gain, unexplained weight loss, other Hematologic/Lymphatic: Denies: no symptoms, anemia, easy bleeding, easy bruising, adenopathy, other Allergies: Coded Allergies: PENICILLINS (Verified Allergy, Unknown, 12/05/17) Subjective 05/05 hgb 7.3 this am, plts lower, no bleeding, ptt elev, will hold off hep gtt 05/06 labs noted, no bleeding, now on lovenox sq, sis somnolent in am 05/07 is on lovenox sq, is s/p transfusion, labs noted, on abx 05/09 anticoag is held, pending for cbc today, labs noted 05/10 anticoag held, for platelets to goal >50k, with coffee ground emesis 05/11 hd was given last night, bp was low and albumin administered, bp better Objective Objective Current Medications Medications (Trade) Dose Ordered Sig/Enrike Route PRN Reason Start Time Stop Time Status Last Admin Dose Admin Bisacodyl (Dulcolax) 10 mg DAILYPRN PRN RECTAL Constipation 05/01/20 20:30 07/30/20 20:29 Cefepime HCl 2 gm/ Dextrose 55 ml @ 110 mls/hr Q24H IVPB 05/08/20 18:00 05/24/20 23:59 05/10/20 18:13 Chlorhexidine Gluconate (Holli-Hex 2%) 1 applic 2XW TOPIC 05/06/20 09:00 08/04/20 08:59 05/10/20 09:36 Chlorhexidine Gluconate (Holli-Hex 2%) 1 applic DAILY@1999 TOPIC 05/02/20 20:00 07/31/20 19:59 05/10/20 20:35 Dextrose (Dextrose 50%) 25 ml Q30M PRN IV Hypoglycemia 05/01/20 20:30 07/30/20 20:29 Dextrose (Dextrose 50%) 50 ml Q30M PRN IV Hypoglycemia 05/01/20 20:30 07/30/20 20:29 Doxycycline Hyclate 100 mg/ Dextrose 110 ml @ 110 mls/hr Q12HR IV 05/08/20 21:00 05/24/20 23:59 05/10/20 20:35 Insulin Aspart (NovoLOG) Q6HR SUBQ 05/03/20 00:00 08/01/20 00:00 05/11/20 05:48 Metronidazole (Flagyl) 500 mg EVERY 8 HOURS ORAL 05/10/20 22:00 05/24/20 23:59 05/11/20 06:19 Midodrine (Pro-Amatine) 5 mg TID ORAL 05/09/20 13:30 08/07/20 13:29 05/10/20 18:13 Ondansetron HCl (Zofran) 4 mg Q6H PRN IVP Nausea & Vomiting 05/01/20 20:30 05/31/20 20:29 Pantoprazole (Protonix) 40 mg EVERY 12 HOURS IVP 05/08/20 21:00 06/07/20 20:59 05/10/20 20:35 Sodium Hypochlorite (Dakin's Quarter Strength) 1 applic DAILY TOPIC 05/05/20 09:00 06/04/20 08:59 05/10/20 09:38 Sodium Bicarbonate (NaHCO3) 650 mg THREE TIMES A DAY ORAL 05/02/20 18:00 06/01/20 17:59 05/10/20 18:13 Last 24 Hour Vital Signs Date Time Temp Pulse Resp B/P (MAP) Pulse Ox O2 Delivery O2 Flow Rate FiO2 05/11/20 04:00 97.2 75 18 144/61 (88) 97 05/11/20 00:00 97.0 76 18 139/67 (91) 99 05/10/20 21:00 Room Air 05/10/20 20:00 97.1 76 19 145/71 (95) 95 05/10/20 16:00 97.7 102 20 163/72 (102) 96 05/10/20 12:00 97.2 95 24 139/60 (86) 95 05/10/20 09:00 Room Air 05/10/20 08:00 97.3 86 24 153/67 (95) 97 05/10/20 04:00 96.8 97 22 126/60 (82) 98 05/10/20 00:00 96.4 94 22 124/64 (84) 98 05/09/20 21:00 Room Air 05/09/20 20:00 96.4 87 20 141/65 (90) 99 05/09/20 15:00 96.5 89 19 125/60 (81) 97 05/09/20 12:00 96.5 87 19 90/43 (59) 97 05/09/20 09:00 Room Air 05/09/20 07:00 98.0 75 20 141/74 (96) 94 Intake and Output 05/10/20 05/11/20 19:00 07:00 # Voids 2 # Bowel Movements 1 Labs Test 05/08/20 06:30 05/08/20 07:57 05/08/20 11:47 05/08/20 14:20 POC Whole Blood Glucose 324 MG/DL (74-106) 301 MG/DL (74-106) White Blood Count 17.9 K/UL (4.8-10.8) 14.6 K/UL (4.8-10.8) Red Blood Count 2.49 M/UL (4.20-5.40) 2.06 M/UL (4.20-5.40) Hemoglobin 7.8 G/DL (12.0-16.0) 6.4 G/DL (12.0-16.0) Hematocrit 22.2 % (37.0-47.0) 18.2 % (37.0-47.0) Mean Corpuscular Volume 89 FL (80-99) 89 FL (80-99) Mean Corpuscular Hemoglobin 31.2 PG (27.0-31.0) 31.1 PG (27.0-31.0) Mean Corpuscular Hemoglobin Concent 35.0 G/DL (32.0-36.0) 35.2 G/DL (32.0-36.0) Red Cell Distribution Width 14.8 % (11.6-14.8) 14.9 % (11.6-14.8) Platelet Count 53 K/UL (150-450) 55 K/UL (150-450) Mean Platelet Volume 9.9 FL (6.5-10.1) 10.8 FL (6.5-10.1) Neutrophils (%) (Auto) % (45.0-75.0) % (45.0-75.0) Lymphocytes (%) (Auto) % (20.0-45.0) % (20.0-45.0) Monocytes (%) (Auto) % (1.0-10.0) % (1.0-10.0) Eosinophils (%) (Auto) % (0.0-3.0) % (0.0-3.0) Basophils (%) (Auto) % (0.0-2.0) % (0.0-2.0) Differential Total Cells Counted 100 100 Neutrophils % (Manual) 78 % (45-75) 78 % (45-75) Lymphocytes % (Manual) 16 % (20-45) 15 % (20-45) Monocytes % (Manual) 4 % (1-10) 7 % (1-10) Eosinophils % (Manual) 2 % (0-3) 0 % (0-3) Basophils % (Manual) 0 % (0-2) 0 % (0-2) Band Neutrophils 0 % (0-8) 0 % (0-8) Platelet Estimate Decreased Decreased Platelet Morphology Normal Normal Anisocytosis 1+ 1+ Hypochromasia 1+ Sodium Level 142 MMOL/L (136-145) Potassium Level 3.0 MMOL/L (3.5-5.1) Chloride Level 111 MMOL/L (98-107) Carbon Dioxide Level 18 MMOL/L (21-32) Anion Gap 13 mmol/L (5-15) Blood Urea Nitrogen 64 mg/dL (7-18) Creatinine 5.5 MG/DL (0.55-1.30) Estimat Glomerular Filtration Rate 9.3 mL/min (>60) Glucose Level 345 MG/DL (74-106) Calcium Level 7.3 MG/DL (8.5-10.1) Phosphorus Level 3.6 MG/DL (2.5-4.9) Magnesium Level 1.7 MG/DL (1.8-2.4) Test 05/08/20 17:02 05/09/20 03:18 05/09/20 04:55 05/09/20 09:35 POC Whole Blood Glucose 286 MG/DL (74-106) 274 MG/DL (74-106) Stool Occult Blood Positive (NEGATIVE) White Blood Count 15.7 K/UL (4.8-10.8) Red Blood Count 3.47 M/UL (4.20-5.40) Hemoglobin 10.7 G/DL (12.0-16.0) Hematocrit 30.2 % (37.0-47.0) Mean Corpuscular Volume 87 FL (80-99) Mean Corpuscular Hemoglobin 30.7 PG (27.0-31.0) Mean Corpuscular Hemoglobin Concent 35.3 G/DL (32.0-36.0) Red Cell Distribution Width 14.5 % (11.6-14.8) Platelet Count 23 K/UL (150-450) Mean Platelet Volume 13.6 FL (6.5-10.1) Neutrophils (%) (Auto) % (45.0-75.0) Lymphocytes (%) (Auto) % (20.0-45.0) Monocytes (%) (Auto) % (1.0-10.0) Eosinophils (%) (Auto) % (0.0-3.0) Basophils (%) (Auto) % (0.0-2.0) Differential Total Cells Counted 100 Neutrophils % (Manual) 89 % (45-75) Lymphocytes % (Manual) 6 % (20-45) Monocytes % (Manual) 3 % (1-10) Eosinophils % (Manual) 0 % (0-3) Basophils % (Manual) 0 % (0-2) Band Neutrophils 2 % (0-8) Nucleated Red Blood Cells 2 /100 WBC Platelet Estimate Decreased Platelet Morphology Giant Platelets Rare Anisocytosis 1+ Prothrombin Time 14.4 SEC (9.30-11.50) Prothromb Time International Ratio 1.3 (0.9-1.1) Activated Partial Thromboplast Time 46 SEC (23-33) Sodium Level 141 MMOL/L (136-145) Potassium Level 3.4 MMOL/L (3.5-5.1) Chloride Level 107 MMOL/L (98-107) Carbon Dioxide Level 15 MMOL/L (21-32) Anion Gap 19 mmol/L (5-15) Blood Urea Nitrogen 42 mg/dL (7-18) Creatinine 4.0 MG/DL (0.55-1.30) Estimat Glomerular Filtration Rate 13.5 mL/min (>60) Glucose Level 356 MG/DL (74-106) Calcium Level 7.3 MG/DL (8.5-10.1) Ferritin 1430 NG/ML (8-388) Total Bilirubin 1.0 MG/DL (0.2-1.0) Aspartate Amino Transf (AST/SGOT) 397 U/L (15-37) Alanine Aminotransferase (ALT/SGPT) 147 U/L (12-78) Alkaline Phosphatase 413 U/L (46-116) Total Protein 3.8 G/DL (6.4-8.2) Albumin 1.0 G/DL (3.4-5.0) Globulin 2.8 g/dL Albumin/Globulin Ratio 0.4 (1.0-2.7) Test 05/09/20 12:10 05/09/20 17:02 05/09/20 23:29 05/10/20 06:27 POC Whole Blood Glucose 268 MG/DL (74-106) 275 MG/DL (74-106) Test 05/10/20 08:00 05/10/20 11:36 05/10/20 16:38 05/10/20 20:46 White Blood Count 12.5 K/UL (4.8-10.8) Red Blood Count 3.28 M/UL (4.20-5.40) Hemoglobin 9.8 G/DL (12.0-16.0) Hematocrit 28.7 % (37.0-47.0) Mean Corpuscular Volume 87 FL (80-99) Mean Corpuscular Hemoglobin 29.8 PG (27.0-31.0) Mean Corpuscular Hemoglobin Concent 34.1 G/DL (32.0-36.0) Red Cell Distribution Width 14.2 % (11.6-14.8) Platelet Count 37 K/UL (150-450) Mean Platelet Volume 11.7 FL (6.5-10.1) Neutrophils (%) (Auto) % (45.0-75.0) Lymphocytes (%) (Auto) % (20.0-45.0) Monocytes (%) (Auto) % (1.0-10.0) Eosinophils (%) (Auto) % (0.0-3.0) Basophils (%) (Auto) % (0.0-2.0) Differential Total Cells Counted 100 Neutrophils % (Manual) 83 % (45-75) Lymphocytes % (Manual) 15 % (20-45) Monocytes % (Manual) 2 % (1-10) Eosinophils % (Manual) 0 % (0-3) Basophils % (Manual) 0 % (0-2) Band Neutrophils 0 % (0-8) Platelet Estimate Decreased Platelet Morphology Normal Hypochromasia 1+ Anisocytosis 1+ Sodium Level 141 MMOL/L (136-145) Potassium Level 3.2 MMOL/L (3.5-5.1) Chloride Level 107 MMOL/L (98-107) Carbon Dioxide Level 17 MMOL/L (21-32) Anion Gap 17 mmol/L (5-15) Blood Urea Nitrogen 49 mg/dL (7-18) Creatinine 4.7 MG/DL (0.55-1.30) Estimat Glomerular Filtration Rate 11.2 mL/min (>60) Glucose Level 332 MG/DL (74-106) Calcium Level 7.4 MG/DL (8.5-10.1) Total Bilirubin 1.4 MG/DL (0.2-1.0) Direct Bilirubin 0.9 MG/DL (0.0-0.3) Aspartate Amino Transf (AST/SGOT) 296 U/L (15-37) Alanine Aminotransferase (ALT/SGPT) 121 U/L (12-78) Alkaline Phosphatase 450 U/L (46-116) Total Protein 4.0 G/DL (6.4-8.2) Albumin 1.1 G/DL (3.4-5.0) Globulin 2.9 g/dL Albumin/Globulin Ratio 0.4 (1.0-2.7) POC Whole Blood Glucose 281 MG/DL (74-106) 277 MG/DL (74-106) 239 MG/DL (74-106) Test 05/11/20 05:42 POC Whole Blood Glucose 279 MG/DL (74-106) Height (Feet): 5 Height (Inches): 7.00 Weight (Pounds): 130 Objective Physical Exam Vitals: reviewed, normal General Appearance: no apparent distress, non-toxic, lethargic HEENT: bilateral eye normal inspection, bilateral eye PERRL Neck: full range of motion, supple/symm/no masses Resp: chest non-tender, lungs clear, normal breath sounds, speaking full sentences Cardiovascular: regular rate, rhythm, no edema Gastrointestinal: normal bowel sounds, non tender Rectal: deferred Genitourinary: normal inspection, no CVA tenderness Musculoskeletal: back normal, gait/station normal, non-tender Lymphatic: no adenopathy David De Jesus MD May 11, 2020 06:28
--- NOTE | 2020-05-11 07:30 | NUR ---
NURSE NOTES: Received report from Nadir. Rounding done. Pt is asleep. No SOB noted. Rt IJ Doyle is in placed. Dressing is dry/intact. Pt has bilateral restraints. NGT is in Rt nares. Will continue to monitor.
--- NOTE | 2020-05-11 07:32 | NUR ---
NURSE HAND-OFF: Important Events on Shift:Aphasic, weak Patient Status: Diet: Pending Orders: Pending Results/Labs: Pending MD notification: Latest Vital Signs: Temperature 97.2 , Pulse 75 , B/P 144 /61 , Respiratory Rate 18 , O2 SAT 97 , Room Air, O2 Flow Rate 3.0 . Vital Sign Comment: Latest Hernandez Fall Score: 70 Fall Risk: High Risk Safety Measures: Call light Within Reach, Bed Alarm Zone 1, Side Rails Side Rails x3, Bed position Low and Locked. Fall Precautions: Yellow Socks Yellow Gown Report given to .
[2020-05-11 08:00] VITALS: BP 141/67
[2020-05-11 08:16] LABS: HEMATOCRIT 29.4 % (37.0-47.0); HEMOGLOBIN 10.5 G/DL (12.0-16.0); MEAN CORPUSCULAR VOLUME 86 FL (80-99); PLATELET COUNT 26 K/UL (150-450); RED BLOOD COUNT 3.41 M/UL (4.20-5.40); RED CELL DISTRIBUTION WIDTH 14.7 % (11.6-14.8); WHITE BLOOD COUNT 12.7 K/UL (4.8-10.8)
[2020-05-11 08:41] LABS: CALCIUM 7.8 MG/DL (8.5-10.1); CREATININE 4.7 MG/DL (0.55-1.30)
--- NOTE | 2020-05-11 08:57 | Nephrology Progress Note ---
Assessment/Plan Plan #JYOTI - concerns for vancomycin nephrotoxicity- r/o ATN- baseline Cr 0.8- also with volume depletion # osteomyelitis of LLE- on vanco, cefepime and flagyl #AMS #diabetes # hypertension, #hyperlipidemia # dementia. - HD tomorrow - DC midodrine 5 TID - plan for PEG tomorrow - monitor hemoglobin - renal US with no acute findings - anibiotics per ID- - avoid vanco for now - monitor renal output - add epo 4k TIW time spent 45 min Subjective ROS Limited/Unobtainable: Yes Subjective UOP 450cc yesterday s/p HD yesterday plan for PEG tomorrow BP uptrending will DC midodrine Objective Objective Last 24 Hour Vital Signs Date Time Temp Pulse Resp B/P (MAP) Pulse Ox O2 Delivery O2 Flow Rate FiO2 05/11/20 04:00 97.2 75 18 144/61 (88) 97 05/11/20 00:00 97.0 76 18 139/67 (91) 99 05/10/20 21:00 Room Air 05/10/20 20:00 97.1 76 19 145/71 (95) 95 05/10/20 16:00 97.7 102 20 163/72 (102) 96 05/10/20 12:00 97.2 95 24 139/60 (86) 95 05/10/20 09:00 Room Air Intake and Output 05/10/20 05/11/20 18:59 06:59 Output Total 125 ml Balance -125 ml Output Urine Total 125 ml # Voids 2 2 # Bowel Movements 1 Laboratory Tests 05/10/20 11:36: POC Whole Blood Glucose 281H 05/10/20 16:38: POC Whole Blood Glucose 277H 05/10/20 20:46: POC Whole Blood Glucose 239H 05/11/20 05:42: POC Whole Blood Glucose 279H 05/11/20 08:00: White Blood Count 12.7H, Red Blood Count 3.41L, Hemoglobin 10.5L, Hematocrit 29.4L, Mean Corpuscular Volume 86, Mean Corpuscular Hemoglobin 30.8, Mean Corpuscular Hemoglobin Concent 35.8, Red Cell Distribution Width 14.7, Platelet Count 26L, Mean Platelet Volume 13.5H, Neutrophils (%) (Auto) , Lymphocytes (%) (Auto) , Monocytes (%) (Auto) , Eosinophils (%) (Auto) , Basophils (%) (Auto) , Neutrophils % (Manual) [Pending], Lymphocytes % (Manual) [Pending], Platelet Estimate [Pending], Platelet Morphology [Pending], Sodium Level [Pending], Potassium Level [Pending], Chloride Level [Pending], Carbon Dioxide Level [Pending], Blood Urea Nitrogen [Pending], Creatinine [Pending], Estimat Glomerular Filtration Rate [Pending], Glucose Level [Pending], Calcium Level [Pending] Height (Feet): 5 Height (Inches): 7.00 Weight (Pounds): 130 Objective General Appearance: no apparent distress EENT: PERRL/EOMI, normal ENT inspection Neck: non-tender, normal alignment Cardiovascular: normal peripheral pulses, normal rate, regular rhythm Respiratory/Chest: chest wall non-tender, lungs clear, normal breath sounds Abdomen: normal bowel sounds, non tender Niko Waterman M.D. May 11, 2020 08:57
[2020-05-11] MEDS: Pantoprazole Inj IVP SCH ×2 (09:16→20:25)
[2020-05-11] MEDS: Sodium Bicarbonate 650mg Tab ORAL SCH ×3 (09:16→17:58)
[2020-05-11] MEDS: Dakin's 0.125% Soln (Quarter Strength) 16oz TOPIC SCH (09:16)
[2020-05-11] MEDS: Doxycycline Hyclate 100 MG in D5W 110 ML IV SCH ×2 (09:17→20:24)
--- NOTE | 2020-05-11 10:21 | NUR ---
RD ASSESSMENT & RECOMMENDATIONS SEE CARE ACTIVITY FOR COMPLETE ASSESSMENT DAILY ESTIMATED NEEDS: Needs based on Wound, JYOTI + HD initiated/ 59kg 30-35 kcals/kg 3320-4868 total kcals 1.25-1.8 (w/ HD) g protein/kg 74-106 g total protein 20-25 mL/kg 2175-7232 total fluid mLs NUTRITION DIAGNOSIS: * Swallowing difficulty R/T dysphagia as evidenced by MULTIPLE EFFECT EVAPORATOR OPERATOR recommends pureed moist texture w/ NTL, NPO at this time. * Increased kcal/prot/micronutrients needs R/T wound healing as evidenced by pt admitted w/ multiple wounds, including unstageable wounds @ sacrum, L heel, stage 2 wound @ lt ischium, DTI wound @ R heel. * Altered nutrition related lab values R/T h/o DM, pt on steroidal med, JYOTI as evidenced by elev BGs (200's-300's), elev creat (6.1 trending up). CURRENT TF: Now w/ orders for Nepro @20ml/hr - HELD PO DIET RECOMMENDATIONS: RENAL, CCHO MED (texture per MULTIPLE EFFECT EVAPORATOR OPERATOR) + Nepro TID w/ meals ENTERAL NUTRITION RECOMMENDATIONS: Nepro w/ goal of 45ml/hr x24 hrs to provide 1080ml, 1944 kcal, 87g pro, 785ml free H2O - As tolerated, rec TF increase to goal of 45ml/hr x24 hrs to better meet est kcal and pro needs. - Flush per MD, HOB over 30 degrees ADDITIONAL RECOMMENDATIONS: * Calibrated bedscale wt * Wound healing:Add Nephrovite x1, Vit C dosing per nephro Dedrick BID w/ diet order, ZnSO4 220mg QD x 10 days * Monitor PO diet tolerance and acceptance, need for nonoral feeding * W/ diet/ TF, consider long acting insulin * Monitor renal fxn and for continuity of HD, monitor lytes .
--- NOTE | 2020-05-11 11:52 | General Progress Note ---
Subjective Allergies: Coded Allergies: PENICILLINS (Verified Allergy, Unknown, 12/05/17) Subjective Patient remains altered; adjust insulin and replete K. Appreciate Consultants. Goal of Care Planning to follow. Now DNR, no feeding tube Objective Last 24 Hour Vital Signs Date Time Temp Pulse Resp B/P (MAP) Pulse Ox O2 Delivery O2 Flow Rate FiO2 05/11/20 08:00 97.0 73 20 141/67 (91) 96 05/11/20 04:00 97.2 75 18 144/61 (88) 97 05/11/20 00:00 97.0 76 18 139/67 (91) 99 05/10/20 21:00 Room Air 05/10/20 20:00 97.1 76 19 145/71 (95) 95 05/10/20 16:00 97.7 102 20 163/72 (102) 96 05/10/20 12:00 97.2 95 24 139/60 (86) 95 Intake and Output 05/10/20 05/11/20 19:00 07:00 Output Total 125 ml Balance -125 ml Output Urine Total 125 ml # Voids 2 2 # Bowel Movements 1 Laboratory Tests 05/10/20 16:38: POC Whole Blood Glucose 277H 05/10/20 20:46: POC Whole Blood Glucose 239H 05/11/20 05:42: POC Whole Blood Glucose 279H 05/11/20 08:00: White Blood Count 12.7H, Red Blood Count 3.41L, Hemoglobin 10.5L, Hematocrit 29.4L, Mean Corpuscular Volume 86, Mean Corpuscular Hemoglobin 30.8, Mean Corpuscular Hemoglobin Concent 35.8, Red Cell Distribution Width 14.7, Platelet Count 26L, Mean Platelet Volume 13.5H, Neutrophils (%) (Auto) , Lymphocytes (%) (Auto) , Monocytes (%) (Auto) , Eosinophils (%) (Auto) , Basophils (%) (Auto) , Differential Total Cells Counted 100, Neutrophils % (Manual) 80H, Lymphocytes % (Manual) 11L, Monocytes % (Manual) 9, Eosinophils % (Manual) 0, Basophils % (Manual) 0, Band Neutrophils 0, Platelet Estimate DecreasedL, Platelet Morphology Normal, Hypochromasia 1+, Anisocytosis 1+, Sodium Level 141, Potassium Level 3.0L, Chloride Level 108H, Carbon Dioxide Level 20L, Anion Gap 13, Blood Urea Nitrogen 46H, Creatinine 4.7H, Estimat Glomerular Filtration Rate 11.2, Glucose Level 266H, Calcium Level 7.8L Height (Feet): 5 Height (Inches): 7.00 Weight (Pounds): 130 General Appearance: other - lethargic Cardiovascular: normal rate, regular rhythm, other - HD cath noted Respiratory/Chest: normal breath sounds, no respiratory distress Abdomen: non tender, soft Neurologic: other - non focal, mostly not responsive Skin: warm/dry Assessment/Plan Assessment/Plan: This is a 69-year-old female presenting with acute encephalopathy, JYOTI, acute UTI. #Hypotension - possibly hypovolemic from dialysis volume removal. Improved today #Acute kidney injury, suspect possible Vanc toxicity vs. component of pre renal as well. FeNA elevated suggesting intrinsic process #Renal failure on HD #Anemia - severe, no signs of bleeding #Thrombocytopenia - transfuse plts 05/09 #Hypokalemia #Hypomagnesemia > FeNA 3.8% suspect intrinsic -IVF bolus PRN -Had extensive discussion with patient's sister about GOC, patient now DNR/DNI. 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 Should patient continue to worsen, another conversation will be had regarding potential transition to comfort care. Given poor overall status, permanent dialysis catheter also not recommended since cannot reverse underlying condition and with minimal chance of recovery. Will need to continue GOC discussion with family. -Urine sodium, urine creatinine, urine eosinophils: reviewed -Renal ultrasound: no hydro, medical renal disease - transfuse PRN with HD - GI consult Dr. Hay, recs appreciated - Vargas catheter for strict I's and O's -Check vanc level: in 30s - IV fluids per nephro - HD per nephro, catheter in place per xray read -Avoid nephrotoxins -Trend creatinine -Appreciate nephro consult: Dr. Waterman -mario carey PRN - d/w Sister Elisha who is medical decision maker. Confirmed ok with HD (pending consent by Nephro) #Acute metabolic encephalopathy #Underlying dementia #Malnutrition #Acute UTI #LLE osteomyelitis s/p debridement on 04/07/2020 with bone biopsy and cultures obtained. #Stage II sacral decubitus ulcer > CTH no acute abnormality >EKG reviewed -Blood cultures -Urine culture - Speech swallow eval, --> family does not want peg -Appreciate ID consult: Bola -Appreciate gen surgery consult: Jasmeet -Neurology consult: D/w Dr. Lee -Holding Vanc due to elevated Vanco level - Switch to doxycycline instead (04/07 - ) -Continue Cefepime (renally dosed). (04/07 - ) -Continue Flagyl (04/07 - ) -Continue Abx for 42 days -swallow eval: pending -check TSH: normal -check lactate: normal -trend troponin: normal #Acute LUE DVT, picc related - D/w Heme and surgery - remove PICC line - heparin GTT #DM2 -Hold lantus -hold metformin -SSI -accuchecks -hypoglycemia protocol #essential hypertension #hyperlipidemia -hold home amlodipine for now -hold benazepril -holding asa -holding statin FENPPX DVTPPX: HSQ Fluids: as above Diet: NPO pending swallow eval Lines: PIV, LUE PICC PT/OT: pending Code status: DNR/DNI Dispo: back to SNF Reason for Continued Hospitalization: hypotension, jyoti/renal failure, AMS, anemia 05/11: Continue AB and HD per nephro. 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 May 11, 2020 11:52
[2020-05-11 12:00] VITALS: BP 120/52
--- NOTE | 2020-05-11 12:26 | General Progress Note ---
Subjective ROS Limited/Unobtainable: No Allergies: Coded Allergies: PENICILLINS (Verified Allergy, Unknown, 12/05/17) Objective Last 24 Hour Vital Signs Date Time Temp Pulse Resp B/P (MAP) Pulse Ox O2 Delivery O2 Flow Rate FiO2 05/11/20 08:00 97.0 73 20 141/67 (91) 96 05/11/20 04:00 97.2 75 18 144/61 (88) 97 05/11/20 00:00 97.0 76 18 139/67 (91) 99 05/10/20 21:00 Room Air 05/10/20 20:00 97.1 76 19 145/71 (95) 95 05/10/20 16:00 97.7 102 20 163/72 (102) 96 Intake and Output 05/10/20 05/11/20 19:00 07:00 Output Total 125 ml Balance -125 ml Output Urine Total 125 ml # Voids 2 2 # Bowel Movements 1 Laboratory Tests 05/10/20 16:38: POC Whole Blood Glucose 277H 05/10/20 20:46: POC Whole Blood Glucose 239H 05/11/20 05:42: POC Whole Blood Glucose 279H 05/11/20 08:00: White Blood Count 12.7H, Red Blood Count 3.41L, Hemoglobin 10.5L, Hematocrit 29.4L, Mean Corpuscular Volume 86, Mean Corpuscular Hemoglobin 30.8, Mean Corpuscular Hemoglobin Concent 35.8, Red Cell Distribution Width 14.7, Platelet Count 26L, Mean Platelet Volume 13.5H, Neutrophils (%) (Auto) , Lymphocytes (%) (Auto) , Monocytes (%) (Auto) , Eosinophils (%) (Auto) , Basophils (%) (Auto) , Differential Total Cells Counted 100, Neutrophils % (Manual) 80H, Lymphocytes % (Manual) 11L, Monocytes % (Manual) 9, Eosinophils % (Manual) 0, Basophils % (Manual) 0, Band Neutrophils 0, Platelet Estimate DecreasedL, Platelet Morphol ogy Normal, Hypochromasia 1+, Anisocytosis 1+, Sodium Level 141, Potassium Level 3.0L, Chloride Level 108H, Carbon Dioxide Level 20L, Anion Gap 13, Blood Urea Nitrogen 46H, Creatinine 4.7H, Estimat Glomerular Filtration Rate 11.2, Glucose Level 266H, Calcium Level 7.8L Height (Feet): 5 Height (Inches): 7.00 Weight (Pounds): 130 General Appearance: lethargic EENT: normal ENT inspection Neck: supple Cardiovascular: normal rate Respiratory/Chest: decreased breath sounds Abdomen: hypoactive bowel sounds Extremities: non-tender Assessment/Plan Assessment/Plan: DM RF anemia thrombocytopenia GIB UTI dysphagia off lovenox ppi cbc transfuse as needed abd us reviewed ppi bid s/p plt transfusion repeat labs in am needs EGD +/- peg will plan for tomorrow if family agrees Shai Hay MD May 11, 2020 12:26
--- NOTE | 2020-05-11 13:38 | NUR ---
NURSE NOTES: Potassium was 3.[address] Waterman was notifed and ordered potassium 60meq po one time. Noted and carried out.
--- NOTE | 2020-05-11 14:42 | Surgery Progress Note ---
Surgery Progress Note Subjective Symptoms: passing flatus Additional Comments ill appearing no n/v labs noted micro reviewed Objective Last 24 Hour Vital Signs Date Time Temp Pulse Resp B/P (MAP) Pulse Ox O2 Delivery O2 Flow Rate FiO2 05/11/20 08:00 97.0 73 20 141/67 (91) 96 05/11/20 04:00 97.2 75 18 144/61 (88) 97 05/11/20 00:00 97.0 76 18 139/67 (91) 99 05/10/20 21:00 Room Air 05/10/20 20:00 97.1 76 19 145/71 (95) 95 05/10/20 16:00 97.7 102 20 163/72 (102) 96 I&O Intake and Output 05/10/20 05/11/20 19:00 07:00 Output Total 125 ml Balance -125 ml Output Urine Total 125 ml # Voids 2 2 # Bowel Movements 1 Dressing: saturated Cardiovascular: RSR Respiratory: decreased breath sounds Abdomen: soft, non-tender, present bowel sounds Extremities: cyanosis, other Laboratory Tests Test 05/10/20 16:38 05/10/20 20:46 05/11/20 05:42 05/11/20 08:00 POC Whole Blood Glucose 277 MG/DL (74-106) H 239 MG/DL (74-106) H 279 MG/DL (74-106) H White Blood Count 12.7 K/UL (4.8-10.8) H Red Blood Count 3.41 M/UL (4.20-5.40) L Hemoglobin 10.5 G/DL (12.0-16.0) L Hematocrit 29.4 % (37.0-47.0) L Mean Corpuscular Volume 86 FL (80-99) Mean Corpuscular Hemoglobin 30.8 PG (27.0-31.0) Mean Corpuscular Hemoglobin Concent 35.8 G/DL (32.0-36.0) Red Cell Distribution Width 14.7 % (11.6-14.8) Platelet Count 26 K/UL (150-450) L Mean Platelet Volume 13.5 FL (6.5-10.1) H Neutrophils (%) (Auto) % (45.0-75.0) Lymphocytes (%) (Auto) % (20.0-45.0) Monocytes (%) (Auto) % (1.0-10.0) Eosinophils (%) (Auto) % (0.0-3.0) Basophils (%) (Auto) % (0.0-2.0) Differential Total Cells Counted 100 Neutrophils % (Manual) 80 % (45-75) H Lymphocytes % (Manual) 11 % (20-45) L Monocytes % (Manual) 9 % (1-10) Eosinophils % (Manual) 0 % (0-3) Basophils % (Manual) 0 % (0-2) Band Neutrophils 0 % (0-8) Platelet Estimate Decreased L Platelet Morphology Normal Hypochromasia 1+ Anisocytosis 1+ Sodium Level 141 MMOL/L (136-145) Potassium Level 3.0 MMOL/L (3.5-5.1) L Chloride Level 108 MMOL/L (98-107) H Carbon Dioxide Level 20 MMOL/L (21-32) L Anion Gap 13 mmol/L (5-15) Blood Urea Nitrogen 46 mg/dL (7-18) H Creatinine 4.7 MG/DL (0.55-1.30) H Estimat Glomerular Filtration Rate 11.2 mL/min (>60) Glucose Level 266 MG/DL (74-106) H Calcium Level 7.8 MG/DL (8.5-10.1) L Test 05/11/20 12:37 POC Whole Blood Glucose Pending Plan Problems: (1) UTI (urinary tract infection) (2) JYOTI (acute kidney injury) (3) Hyperkalemia (4) Leukocytosis Assessment & Plan: dvt upper extremity picc related remove picc once temp line in anticoag as per heme worsening leukocytosis on abx (5) Sepsis (6) Altered mental status (7) Sacral decubitus ulcer Assessment & Plan: 69-year-old female multiple comorbidities presented with failure to thrive lethargic altered mental status noted to have abnormal labs and have draining bilateral heel unstageable decubitus ulcers multiple skin lesions on the lower extremities as well as a sacral decubitus ulcer as well. Imaging reviewed. Patient has been eating less recently but currently is eating at the bedside though does not look like she is taking much in. Treatment plan Turn every 2 hours Offload pressure with pillows pillow on side as necessary as well as underneath calf to elevate heels Air soft mattress nutritional optimization continue IV antibiotics per infectious disease SACRUM- STAGE - UNSTAGEABLE PRESSURE ULCER MEASURES 6.0X13.0X0.2. WOUND BED WITH 80% SLOUGH AND 20% PINK GRANULATION TISSUE. NOTED FOUL ODOR RECOMMEND-CLEAN WITH SALINE. APPLY WET TO DRY DRESSINGS WITH DAKINS 0.25% DAKIN'S SOLUTION.COVER WITH OPTIFOAM DRESSING. REPLACE DRESSING DAILY. LEFT ISCHIUM-STAGE II PRESSURE ULCER MEASURES 4.5X0.5X0.2CM. PINK GRANULATION TISSUE NOTED. RECOMMEND- CLEAN WITH SALINE, PAT DRY. APPLY CALAZINE AND COVER WITH OPTIFOAM DRESSING. LEFT ANTERIOR LOW LEG-VENOUS ULCER MEASURES 8.0X2.6X0.2CM 100% YELLOW SLOUGH NOTED TO WOUND BED. RECOMMEND- CLEAN WITH SALINE, PA DRY. APPLY THERAHONEY. COVER WITH GAUZE AND SECURE WITH KERLIX. REPLACE DRESSING DAILY. LEFT HEEL- UNSTAGEABLE PRESSURE ULCER MEASURES 9.5X8.0X0.3CM. 100% MOIST BLACK ESCHAR. WITH STRONG FOUL ODOR. RECOMMEND- CLEAN WITH SALINE. APPLY WET TO DRY DRESSINGS WITH DAKINS 0.25% DAKIN'S SOLUTION. COVER WITH GAUZE, ABD PAD AND SECURE WITH KERLIX. REPLACE DAILY. RIGHT ANTERIOR LOW LEG-VENOUS ULCER MEASURES 2.5X3.0X0.2CM WITH PINK GRANULATION TISSUE. RIGHT ANTERIOR DISTAL LOW LEG -VENOUS ULCER MEASURES 1.5X0.2X0.1CM WITH PINK GRANULATION TISSUE. RECOMMEND-CLEAN WITH SALINE PAT DRY. APPLY XEROFORM GAUZE, GAUZE AND COVER WITH KERLIX. REPLACE DAILY RIGHT HEEL-DTI MEASURES 2.5X3.0CM. AREA DARK PURPLE IN COLOR AND BOGGY TO TOUCH. NO DRAINAGE NOTED. RECOMMEND- PAINT WITH CAVILON SKIN PROTECTOR, GAUZE AND WRAP WITH KERLIX. REPL DESTINEY DAILY. We will follow with recommendations thank you for letting participate patient's care Fairly numerous bubbles of soft tissue gas are seen within the subcutaneous fat and possibly the intrinsic musculature of the plantar surface of the heel. There is high STIR and decreased T1 signal within the calcaneus, and there is indistinctness of the inferior and posterior cortical margins of the calcaneus. There is some soft tissue ulceration of the plantar surface of the heel, as well as marked thinning of the subcutaneous fat overlying the calcaneal tuberosity. There is considerable edema of the plantar surface subcutaneous fat. There is also edema of the subcutaneous fat of the lateral and medial ankle. No focal discrete fluid collection to suggest drainable abscess demonstrated. Impression: Evidence of ulceration overlying the calcaneal tuberosity Soft tissue gas within the heel, as described. This may represent penetration the above, but is worrisome for infection with a gas-forming organism Abnormal signal within the posterior and mid calcaneus, highly suspicious for acute osteomyelitis (8) Decubitus ulcer of heel (9) Diabetes mellitus out of control (10) Acute on chronic renal failure (11) NSTEMI (non-ST elevated myocardial infarction) (12) High anion gap metabolic acidosis Joseph Alamo May 11, 2020 14:42
--- NOTE | 2020-05-11 15:45 | NUR ---
NURSE NOTES: NGT was clogged and called Dr. Hay. said do not need reinsert NGT again if we got consent for EGD w/ PEG placement tomorrow.
--- NOTE | 2020-05-11 15:50 | NUR ---
NURSE NOTES: Obtained consent from Elisha Sarkar (sister). Verified with ZACH Pinon.
--- NOTE | 2020-05-11 15:55 | NUR ---
HAND-OFF: Report given to ZACH Santos.
[2020-05-11 16:00] VITALS: BP 162/98
--- NOTE | 2020-05-11 16:15 | NUR ---
NURSE NOTES: REPORT RECEIVED FROM ANJALI OSUNA RN. PATIENT STABLE; NON-VERBAL. BED IN LOW AND LOCKED POSITION. CALL LIGHT WITHIN REACH. BILATERAL SOFT WRIST RESTRAINTS ON. [facility] WNL. TURN SCHEDULE IN PROGRESS Q2H.
--- NOTE | 2020-05-11 16:24 | NUR ---
CASE MANAGEMENT:REVIEW SI;RENAL FAILURE. UTI. DVT. 97.2 76 20 141/67 95% ON RA WBC 12.7 PLT 26 K+ 3.0 CL 108 BUN 46 CR 4.7 BG 266 CA 7.8 IS;K-DUR NG TUBE ONCE FLAGYL NG TUBE Q8 MIDODRINE NG TID PROTONIX IV Q12 NaHCO3 NG TID INSULIN NOVOLOG SQ Q6 MED SURG STATUS DCP;FROM [place] CONV PLAN; EGD W/PEG PLACEMENT 05/12/20
--- NOTE | 2020-05-11 17:21 | NUR ---
NURSE NOTES: Shanelle from microbiology called and stated patient is COVID positive. Addendum: 05/11/20 at 1726 by FIONA SWAIN RN RN Left message for MD Hay. Addendum: 05/11/20 at 1819 by FIONA SWAIN RN RN MD Hay called back and stated to put patient on isolation precautions and that the procedure will continue tomorrow.
--- NOTE | 2020-05-11 17:56 | Neurology Progress Note ---
Interim History Interim History ROS Limited/Unobtainable: No Interim History somnolent, noted changed to dnr Objective Physical Exam Last Vital Signs Date Time Temp Pulse Resp B/P (MAP) Pulse Ox O2 Delivery O2 Flow Rate FiO2 05/11/20 12:00 97.0 73 20 120/52 (74) 97 05/11/20 09:00 Room Air 05/05/20 16:12 3.0 99 Laboratory Tests Test 05/10/20 20:46 05/11/20 05:42 05/11/20 08:00 05/11/20 12:37 POC Whole Blood Glucose 239 MG/DL (74-106) H 279 MG/DL (74-106) H Pending White Blood Count 12.7 K/UL (4.8-10.8) H Red Blood Count 3.41 M/UL (4.20-5.40) L Hemoglobin 10.5 G/DL (12.0-16.0) L Hematocrit 29.4 % (37.0-47.0) L Mean Corpuscular Volume 86 FL (80-99) Mean Corpuscular Hemoglobin 30.8 PG (27.0-31.0) Mean Corpuscular Hemoglobin Concent 35.8 G/DL (32.0-36.0) Red Cell Distribution Width 14.7 % (11.6-14.8) Platelet Count 26 K/UL (150-450) L Mean Platelet Volume 13.5 FL (6.5-10.1) H Neutrophils (%) (Auto) % (45.0-75.0) Lymphocytes (%) (Auto) % (20.0-45.0) Monocytes (%) (Auto) % (1.0-10.0) Eosinophils (%) (Auto) % (0.0-3.0) Basophils (%) (Auto) % (0.0-2.0) Differential Total Cells Counted 100 Neutrophils % (Manual) 80 % (45-75) H Lymphocytes % (Manual) 11 % (20-45) L Monocytes % (Manual) 9 % (1-10) Eosinophils % (Manual) 0 % (0-3) Basophils % (Manual) 0 % (0-2) Band Neutrophils 0 % (0-8) Platelet Estimate Decreased L Platelet Morphology Normal Hypochromasia 1+ Anisocytosis 1+ Sodium Level 141 MMOL/L (136-145) Potassium Level 3.0 MMOL/L (3.5-5.1) L Chloride Level 108 MMOL/L (98-107) H Carbon Dioxide Level 20 MMOL/L (21-32) L Anion Gap 13 mmol/L (5-15) Blood Urea Nitrogen 46 mg/dL (7-18) H Creatinine 4.7 MG/DL (0.55-1.30) H Estimat Glomerular Filtration Rate 11.2 mL/min (>60) Glucose Level 266 MG/DL (74-106) H Calcium Level 7.8 MG/DL (8.5-10.1) L Impression/Recommendations Problems: (1) Sepsis (2) Hyperkalemia (3) Leukocytosis (4) Altered mental status (5) Diabetes mellitus out of control (6) Acute on chronic renal failure (7) NSTEMI (non-ST elevated myocardial infarction) (8) High anion gap metabolic acidosis (9) Sacral decubitus ulcer (10) Decubitus ulcer of heel (11) UTI (urinary tract infection) (12) JYOTI (acute kidney injury) Diagnostic Impression acute metabolic encephalopathy jyoti sepsis baseline dementia cont ivfs delirium precautions no need for mri brain cont Thee Burden MD May 11, 2020 17:56
--- NOTE | 2020-05-11 18:25 | NUR ---
NURSE NOTES: NOTED CEFIPIME DOSE CHANGED FROM 2GM TO 1GM IVPB. CO-WORKER PLACED CALL TO PHARMACY TO GET NEW MED DELIVERED. UNAWARE AT THIS TIME 1GM IS STOCKED IN XIS.
--- NOTE | 2020-05-11 19:30 | NUR ---
NURSE HAND-OFF: Important Events on Shift: RAPID COVID + Patient Status: STABLE Diet: NPO Pending Orders: N/A Pending Results/Labs:N/A Pending MD notification:NONE Latest Vital Signs: Temperature 98.0 , Pulse 111 , B/P 162 /98 , Respiratory Rate 20 , O2 SAT 95 , ROOM AIR. Vital Sign Comment: [] Latest Hernandez Fall Score: 70 Fall Risk: High Risk Safety Measures: Call light Within Reach, Bed Alarm Zone 1, Side Rails Side Rails x3, Bed position Low and Locked. Fall Precautions: Yellow Socks Yellow Gown Report given to NADER JOVEL RN..
--- NOTE | 2020-05-11 19:31 | NUR ---
NURSE NOTES: The patient remained aphasic, awake and doesn't seem to be in any active distress at this time. She is room air and saturating well. The patient is NPO but has an NGT, residual is reddish brown,feeding is on hold pending peg tube placement. Patient has a Right IJ central line for HD in place, dressing CDI was changed 05/10/2020. FC in place under gravity.She has Bilateral soft wrist restraint for safety precaution due to patient trying to pull out her central line.Bilateral lower legs are wrapped with Kerlix as indicated.She has a sacral pressure sore with a P200 mattress in place. Patient remains safe. Bed in lowest position, siderails upx2 and call light within easy reach.will continue to monitor.
[2020-05-11] MEDS: Cefepime HCl 1 GM in D5W 55 ML IVPB SCH (19:37)
[2020-05-11] MEDS: Dyna-Hex 2% Top Sol 2oz TOPIC SCH (19:46)
[2020-05-11 20:00] VITALS: BP 124/51
[2020-05-12] VITALS (10 sets, daily range): BP systolic 104–170; BP diastolic 51–84
[2020-05-12] MEDS: NovoLOG Insulin Flexpen SUBQ SCH ×5 (00:05→23:43)
[2020-05-12] MEDS: Doxycycline Hyclate 100 MG in D5W 110 ML IV SCH ×2 (00:40→09:34)
[2020-05-12] MEDS: metroNIDAZOLE 500mg tab ORAL SCH ×2 (04:50→14:00)
--- NOTE | 2020-05-12 06:43 | Hematology/Onc Progress Note ---
Assessment/Plan Assessment/Plan Assessment and Recs # Left upper extremity axillary, subclavian, and brachial venous thrombosis --> heparin gtt was started-->now changed to lovenox as supertherapeutic->now HELD due to severe anemia --> consider eliquis or coumadin once closer to dc --> patient does have eleno/ckd, thus agent needed not affected by renal function --> monitor for bleed # Thrombocytopenia likely secondary to left heel and foot osteomyelitis/ infection/dic --> likely due to infected wounds, heel ulcerations --> ABX flucon/flagyl/cefepime-->doxy/cefepime --> Peripheral smear, reviewed, hold off flow for now --> elev inflammatory markers --> WBC 35-->22-->18-->14-->13-->11.4->>>13-->17 --> plt 55-->23-->26 # Anemia due to underlying chronic disease. --> Continue to closely monitor for improvement. --> Anemia w/u has been reviewed. Will trend cbc daily. --> Hgb goal >7 -> hgb 12-->10.7->9.4-->9.5->10-->7.3-->5.7-->6.2-->8-->6.4-->10 --> 2 units 05/07 --> anemia panel reviewed before # Hyperkalemia. Given Kayexalate. --> Improved # Diabetic ketoacidosis. --> per before, improved # ESRD --> hd with line inserted # Shortness of breath in past with dka # Dvt ppx --> scds The time the note was entered does not necessarily correspond to the time the patient was seen. Subjective Neurologic/Psychiatric: Denies: no symptoms, anxiety, depressed, emotional problems, headache, numbness, paresthesia, pre-existing deficit, seizure, tingling, tremors, weakness, other Allergies: Coded Allergies: PENICILLINS (Verified Allergy, Unknown, 12/05/17) All Systems: reviewed and negative except above Subjective 05/05 hgb 7.3 this am, plts lower, no bleeding, ptt elev, will hold off hep gtt 05/06 labs noted, no bleeding, now on lovenox sq, sis somnolent in am 05/07 is on lovenox sq, is s/p transfusion, labs noted, on abx 05/09 anticoag is held, pending for cbc today, labs noted 05/10 anticoag held, for platelets to goal >50k, with coffee ground emesis 05/11 hd was given last night, bp was low and albumin administered, bp better 05/12 nv, labs reviewed, aphasic, plt 26 yesterday, meds reviewed, to get cbc today Objective Objective Current Medications Medications (Trade) Dose Ordered Sig/Enrike Route PRN Reason Start Time Stop Time Status Last Admin Dose Admin Bisacodyl (Dulcolax) 10 mg DAILYPRN PRN RECTAL Constipation 05/01/20 20:30 07/30/20 20:29 Cefepime HCl 1 gm/ Dextrose 55 ml @ 110 mls/hr Q24H IVPB 05/11/20 18:00 05/24/20 23:59 05/11/20 19:37 Chlorhexidine Gluconate (Holli-Hex 2%) 1 applic 2XW TOPIC 05/06/20 09:00 08/04/20 08:59 05/10/20 09:36 Chlorhexidine Gluconate (Holli-Hex 2%) 1 applic DAILY@1999 TOPIC 05/02/20 20:00 07/31/20 19:59 05/11/20 19:46 Dextrose (Dextrose 50%) 25 ml Q30M PRN IV Hypoglycemia 05/01/20 20:30 07/30/20 20:29 Dextrose (Dextrose 50%) 50 ml Q30M PRN IV Hypoglycemia 05/01/20 20:30 07/30/20 20:29 Doxycycline Hyclate 100 mg/ Dextrose 110 ml @ 110 mls/hr Q12HR IV 05/08/20 21:00 05/24/20 23:59 05/11/20 20:24 Insulin Aspart (NovoLOG) Q6HR SUBQ 05/03/20 00:00 08/01/20 00:00 05/12/20 06:24 Metronidazole (Flagyl) 500 mg EVERY 8 HOURS ORAL 05/10/20 22:00 05/24/20 23:59 05/12/20 04:50 Ondansetron HCl (Zofran) 4 mg Q6H PRN IVP Nausea & Vomiting 05/01/20 20:30 05/31/20 20:29 Pantoprazole (Protonix) 40 mg EVERY 12 HOURS IVP 05/08/20 21:00 06/07/20 20:59 05/11/20 20:25 Sodium Hypochlorite (Dakin's Quarter Strength) 1 applic DAILY TOPIC 05/05/20 09:00 06/04/20 08:59 05/11/20 09:16 Sodium Bicarbonate (NaHCO3) 650 mg THREE TIMES A DAY ORAL 05/02/20 18:00 06/01/20 17:59 05/11/20 14:28 Last 24 Hour Vital Signs Date Time Temp Pulse Resp B/P (MAP) Pulse Ox O2 Delivery O2 Flow Rate FiO2 05/12/20 04:00 97.1 85 21 104/51 (68) 95 05/12/20 00:00 97.6 78 19 141/64 (89) 97 05/11/20 21:00 Room Air 05/11/20 20:00 97.2 72 18 124/51 (75) 98 05/11/20 16:00 98.0 111 20 162/98 (119) 95 05/11/20 12:00 97.0 73 20 120/52 (74) 97 05/11/20 09:00 Room Air 05/11/20 08:00 97.0 73 20 141/67 (91) 96 05/11/20 04:00 97.2 75 18 144/61 (88) 97 05/11/20 00:00 97.0 76 18 139/67 (91) 99 05/10/20 21:00 Room Air 05/10/20 20:00 97.1 76 19 145/71 (95) 95 05/10/20 16:00 97.7 102 20 163/72 (102) 96 05/10/20 12:00 97.2 95 24 139/60 (86) 95 05/10/20 09:00 Room Air 05/10/20 08:00 97.3 86 24 153/67 (95) 97 Intake and Output 05/11/20 05/12/20 19:00 07:00 Intake Total 110 ml Output Total 100 ml 90 ml Balance 10 ml -90 ml Intake IV Total 110 ml Output Urine Total 100 ml 90 ml # Voids 1 # Bowel Movements 1 1 Labs Test 05/09/20 09:35 05/09/20 12:10 05/09/20 17:02 05/09/20 23:29 White Blood Count 15.7 K/UL (4.8-10.8) Red Blood Count 3.47 M/UL (4.20-5.40) Hemoglobin 10.7 G/DL (12.0-16.0) Hematocrit 30.2 % (37.0-47.0) Mean Corpuscular Volume 87 FL (80-99) Mean Corpuscular Hemoglobin 30.7 PG (27.0-31.0) Mean Corpuscular Hemoglobin Concent 35.3 G/DL (32.0-36.0) Red Cell Distribution Width 14.5 % (11.6-14.8) Platelet Count 23 K/UL (150-450) Mean Platelet Volume 13.6 FL (6.5-10.1) Neutrophils (%) (Auto) % (45.0-75.0) Lymphocytes (%) (Auto) % (20.0-45.0) Monocytes (%) (Auto) % (1.0-10.0) Eosinophils (%) (Auto) % (0.0-3.0) Basophils (%) (Auto) % (0.0-2.0) Differential Total Cells Counted 100 Neutrophils % (Manual) 89 % (45-75) Lymphocytes % (Manual) 6 % (20-45) Monocytes % (Manual) 3 % (1-10) Eosinophils % (Manual) 0 % (0-3) Basophils % (Manual) 0 % (0-2) Band Neutrophils 2 % (0-8) Nucleated Red Blood Cells 2 /100 WBC Platelet Estimate Decreased Platelet Morphology Giant Platelets Rare Anisocytosis 1+ Prothrombin Time 14.4 SEC (9.30-11.50) Prothromb Time International Ratio 1.3 (0.9-1.1) Activated Partial Thromboplast Time 46 SEC (23-33) Sodium Level 141 MMOL/L (136-145) Potassium Level 3.4 MMOL/L (3.5-5.1) Chloride Level 107 MMOL/L (98-107) Carbon Dioxide Level 15 MMOL/L (21-32) Anion Gap 19 mmol/L (5-15) Blood Urea Nitrogen 42 mg/dL (7-18) Creatinine 4.0 MG/DL (0.55-1.30) Estimat Glomerular Filtration Rate 13.5 mL/min (>60) Glucose Level 356 MG/DL (74-106) Calcium Level 7.3 MG/DL (8.5-10.1) Ferritin 1430 NG/ML (8-388) Total Bilirubin 1.0 MG/DL (0.2-1.0) Aspartate Amino Transf (AST/SGOT) 397 U/L (15-37) Alanine Aminotransferase (ALT/SGPT) 147 U/L (12-78) Alkaline Phosphatase 413 U/L (46-116) Total Protein 3.8 G/DL (6.4-8.2) Albumin 1.0 G/DL (3.4-5.0) Globulin 2.8 g/dL Albumin/Globulin Ratio 0.4 (1.0-2.7) POC Whole Blood Glucose 268 MG/DL (74-106) 275 MG/DL (74-106) Test 05/10/20 06:27 05/10/20 08:00 05/10/20 11:36 05/10/20 16:38 White Blood Count 12.5 K/UL (4.8-10.8) Red Blood Count 3.28 M/UL (4.20-5.40) Hemoglobin 9.8 G/DL (12.0-16.0) Hematocrit 28.7 % (37.0-47.0) Mean Corpuscular Volume 87 FL (80-99) Mean Corpuscular Hemoglobin 29.8 PG (27.0-31.0) Mean Corpuscular Hemoglobin Concent 34.1 G/DL (32.0-36.0) Red Cell Distribution Width 14.2 % (11.6-14.8) Platelet Count 37 K/UL (150-450) Mean Platelet Volume 11.7 FL (6.5-10.1) Neutrophils (%) (Auto) % (45.0-75.0) Lymphocytes (%) (Auto) % (20.0-45.0) Monocytes (%) (Auto) % (1.0-10.0) Eosinophils (%) (Auto) % (0.0-3.0) Basophils (%) (Auto) % (0.0-2.0) Differential Total Cells Counted 100 Neutrophils % (Manual) 83 % (45-75) Lymphocytes % (Manual) 15 % (20-45) Monocytes % (Manual) 2 % (1-10) Eosinophils % (Manual) 0 % (0-3) Basophils % (Manual) 0 % (0-2) Band Neutrophils 0 % (0-8) Platelet Estimate Decreased Platelet Morphology Normal Hypochromasia 1+ Anisocytosis 1+ Sodium Level 141 MMOL/L (136-145) Potassium Level 3.2 MMOL/L (3.5-5.1) Chloride Level 107 MMOL/L (98-107) Carbon Dioxide Level 17 MMOL/L (21-32) Anion Gap 17 mmol/L (5-15) Blood Urea Nitrogen 49 mg/dL (7-18) Creatinine 4.7 MG/DL (0.55-1.30) Estimat Glomerular Filtration Rate 11.2 mL/min (>60) Glucose Level 332 MG/DL (74-106) Calcium Level 7.4 MG/DL (8.5-10.1) Total Bilirubin 1.4 MG/DL (0.2-1.0) Direct Bilirubin 0.9 MG/DL (0.0-0.3) Aspartate Amino Transf (AST/SGOT) 296 U/L (15-37) Alanine Aminotransferase (ALT/SGPT) 121 U/L (12-78) Alkaline Phosphatase 450 U/L (46-116) Total Protein 4.0 G/DL (6.4-8.2) Albumin 1.1 G/DL (3.4-5.0) Globulin 2.9 g/dL Albumin/Globulin Ratio 0.4 (1.0-2.7) POC Whole Blood Glucose 281 MG/DL (74-106) 277 MG/DL (74-106) Test 05/10/20 20:46 05/11/20 05:42 05/11/20 08:00 05/11/20 12:37 POC Whole Blood Glucose 239 MG/DL (74-106) 279 MG/DL (74-106) White Blood Count 12.7 K/UL (4.8-10.8) Red Blood Count 3.41 M/UL (4.20-5.40) Hemoglobin 10.5 G/DL (12.0-16.0) Hematocrit 29.4 % (37.0-47.0) Mean Corpuscular Volume 86 FL (80-99) Mean Corpuscular Hemoglobin 30.8 PG (27.0-31.0) Mean Corpuscular Hemoglobin Concent 35.8 G/DL (32.0-36.0) Red Cell Distribution Width 14.7 % (11.6-14.8) Platelet Count 26 K/UL (150-450) Mean Platelet Volume 13.5 FL (6.5-10.1) Neutrophils (%) (Auto) % (45.0-75.0) Lymphocytes (%) (Auto) % (20.0-45.0) Monocytes (%) (Auto) % (1.0-10.0) Eosinophils (%) (Auto) % (0.0-3.0) Basophils (%) (Auto) % (0.0-2.0) Differential Total Cells Counted 100 Neutrophils % (Manual) 80 % (45-75) Lymphocytes % (Manual) 11 % (20-45) Monocytes % (Manual) 9 % (1-10) Eosinophils % (Manual) 0 % (0-3) Basophils % (Manual) 0 % (0-2) Band Neutrophils 0 % (0-8) Platelet Estimate Decreased Platelet Morphology Normal Hypochromasia 1+ Anisocytosis 1+ Sodium Level 141 MMOL/L (136-145) Potassium Level 3.0 MMOL/L (3.5-5.1) Chloride Level 108 MMOL/L (98-107) Carbon Dioxide Level 20 MMOL/L (21-32) Anion Gap 13 mmol/L (5-15) Blood Urea Nitrogen 46 mg/dL (7-18) Creatinine 4.7 MG/DL (0.55-1.30) Estimat Glomerular Filtration Rate 11.2 mL/min (>60) Glucose Level 266 MG/DL (74-106) Calcium Level 7.8 MG/DL (8.5-10.1) Test 05/11/20 18:42 05/11/20 23:29 05/12/20 05:00 POC Whole Blood Glucose 242 MG/DL (74-106) 279 MG/DL (74-106) Micro Microbiology Date/Time Source Procedure Growth Status 05/11/20 16:54 Nasopharynx SARS-CoV-2 RdRp Gene Assay - Final Complete Height (Feet): 5 Height (Inches): 7.00 Weight (Pounds): 130 Objective Physical Exam Vitals: reviewed, normal General Appearance: no apparent distress, non-toxic, lethargic HEENT: bilateral eye normal inspection, bilateral eye PERRL Neck: full range of motion, supple/symm/no masses Resp: chest non-tender, lungs clear, normal breath sounds, speaking full sentences Cardiovascular: regular rate, rhythm, no edema Gastrointestinal: normal bowel sounds, non tender Rectal: deferred Genitourinary: normal inspection, no CVA tenderness Musculoskeletal: back normal, gait/station normal, non-tender Lymphatic: no adenopathy David De Jesus MD May 12, 2020 06:43
--- NOTE | 2020-05-12 06:57 | NUR ---
NURSE NOTES: The was no LILIAN noted .The patient remained awake,Aphasic and was helped with turning and re-positioning q2hrs as indicated.Will continue to monitor
--- NOTE | 2020-05-12 07:06 | NUR ---
NURSE HAND-OFF: Important Events on Shift:Aphasic Patient Status: Diet: Pending Orders:(EGD and peg-tube placement] Pending Results/Labs: Pending MD notification: Latest Vital Signs: Temperature 97.1 , Pulse 85 , B/P 104 /51 , Respiratory Rate 21 , O2 SAT 95 , Room Air, O2 Flow Rate 3.0 . Vital Sign Comment: Latest Hernandez Fall Score: 70 Fall Risk: High Risk Safety Measures: Call light Within Reach, Bed Alarm Zone 1, Side Rails Side Rails x3, Bed position Low and Locked. Fall Precautions: Yellow Socks Yellow Gown Report given to .
[2020-05-12 07:09] LABS: HEMATOCRIT 28.8 % (37.0-47.0); MEAN CORPUSCULAR VOLUME 91 FL (80-99); PLATELET COUNT 22 K/UL (150-450); RED BLOOD COUNT 3.15 M/UL (4.20-5.40); RED CELL DISTRIBUTION WIDTH 15.3 % (11.6-14.8)
[2020-05-12 07:18] LABS: PHOSPHORUS 3.4 MG/DL (2.5-4.9)
--- NOTE | 2020-05-12 07:30 | NUR ---
NURSE NOTES: Patient lying in bed. No sings ans symptoms of pain or distress at this time. NG tube in placed. Dilaysis access on right IJ and patent. On bilateral soft wrist restrain. Vargas catheter patent and draining well. Bed lowest position and side rails up. Call light within reach. Will continue to monitor.
[2020-05-12 07:36] LABS: ALBUMIN 1.1 G/DL (3.4-5.0); ALBUMIN/GLOBULIN RATIO 0.5 (1.0-2.7); BILIRUBIN,TOTAL 3.1 MG/DL (0.2-1.0); CALCIUM 7.4 MG/DL (8.5-10.1); CREATININE 5.1 MG/DL (0.55-1.30); POTASSIUM 3.5 MMOL/L (3.5-5.1)
--- NOTE | 2020-05-12 07:58 | General Progress Note ---
Subjective ROS Limited/Unobtainable: No Allergies: Coded Allergies: PENICILLINS (Verified Allergy, Unknown, 12/05/17) Objective Last 24 Hour Vital Signs Date Time Temp Pulse Resp B/P (MAP) Pulse Ox O2 Delivery O2 Flow Rate FiO2 05/12/20 04:00 97.1 85 21 104/51 (68) 95 05/12/20 00:00 97.6 78 19 141/64 (89) 97 05/11/20 21:00 Room Air 05/11/20 20:00 97.2 72 18 124/51 (75) 98 05/11/20 16:00 98.0 111 20 162/98 (119) 95 05/11/20 12:00 97.0 73 20 120/52 (74) 97 05/11/20 09:00 Room Air 05/11/20 08:00 97.0 73 20 141/67 (91) 96 Intake and Output 05/11/20 05/12/20 19:00 07:00 Intake Total 110 ml Output Total 100 ml 90 ml Balance 10 ml -90 ml Intake IV Total 110 ml Output Urine Total 100 ml 90 ml # Voids 1 # Bowel Movements 1 1 Laboratory Tests 05/11/20 08:00: White Blood Count 12.7H, Red Blood Count 3.41L, Hemoglobin 10.5L, Hematocrit 29.4L, Mean Corpuscular Volume 86, Mean Corpuscular Hemoglobin 30.8, Mean Corpuscular Hemoglobin Concent 35.8, Red Cell Distribution Width 14.7, Platelet Count 26L, Mean Platelet Volume 13.5H, Neutrophils (%) (Auto) , Lymphocytes (%) (Auto) , Monocytes (%) (Auto) , Eosinophils (%) (Auto) , Basophils (%) (Auto) , Differential Total Cells Counted 100, Neutrophils % (Manual) 80H, Lymphocytes % (Manual) 11L, Monocytes % (Manual) 9, Eosinophils % (Manual) 0, Basophils % (Manual) 0, Band Neutrophils 0, Platelet Estimate DecreasedL, Platelet Morphology Normal, Hypochromasia 1+, Anisocytosis 1+, Sodium Level 141, Potassium Level 3.0L, Chloride Level 108H, Carbon Dioxide Level 20L, Anion Gap 13, Blood Urea Nitrogen 46H, Creatinine 4.7H, Estimat Glomerular Filtration Rate 11.2, Glucose Level 266H, Calcium Level 7.8L 05/11/20 12:37: POC Whole Blood Glucose [Pending] 05/11/20 18:42: POC Whole Blood Glucose 242H 05/11/20 23:29: POC Whole Blood Glucose 279H 05/12/20 05:00: White Blood Count 13.0H, Red Blood Count 3.15L, Hemoglobin 10.0L, Hematocrit 28.8L, Mean Corpuscular Volume 91, Mean Corpuscular Hemoglobin 31.7H, Mean Corpuscular Hemoglobin Concent 34.8, Red Cell Distribution Width 15.3H, Platelet Count 22L, Mean Platelet Volume 15.6H, Neutrophils (%) (Auto) , Lymphocytes (%) (Auto) , Monocytes (%) (Auto) , Eosinophils (%) (Auto) , Basophils (%) (Auto) , Neutrophils % (Manual) [Pending], Lymphocytes % (Manual) [Pending], Platelet Estimate [Pending], Platelet Morphology [Pending], Sodium Level [Pending], Potassium Level [Pending], Chloride Level [Pending], Carbon Dioxide Level [Pending], Blood Urea Nitrogen [Pending], Creatinine [Pending], Estimat Glomerular Filtration Rate [Pending], Glucose Level [Pending], Calcium Level [Pending], Phosphorus Level 3.4, Magnesium Level 1.6L, Total Bilirubin [Pending], Aspartate Amino Transf (AST/SGOT) [Pending], Alanine Aminotransferase (ALT/SGPT) [Pending], Alkaline Phosphatase [Pending], Total Protein [Pending], Albumin [Pending], Globulin [Pending] Height (Feet): 5 Height (Inches): 7.00 Weight (Pounds): 130 General Appearance: no apparent distress EENT: normal ENT inspection Neck: supple Cardiovascular: normal rate Respiratory/Chest: decreased breath sounds Abdomen: hypoactive bowel sounds Extremities: non-tender Assessment/Plan Assessment/Plan: DM RF anemia thrombocytopenia GIB UTI dysphagia covid + off lovenox ppi cbc transfuse as needed abd us reviewed ppi bid pending plt transfusion repeat labs in am needs EGD +/- peg PEG canceled given low PLT resume NGShai Fields MD May 12, 2020 07:58
[2020-05-12 08:03] LABS: BILIRUBIN,DIRECT 2.6 MG/DL (0.0-0.3)
[2020-05-12] MEDS ORDERED: Pantoprazole Inj IVP SCH (09:00)
[2020-05-12] MEDS: Dakin's 0.125% Soln (Quarter Strength) 16oz TOPIC SCH (09:00)
[2020-05-12] MEDS: Sodium Bicarbonate 650mg Tab ORAL SCH ×3 (09:36→17:44)
--- NOTE | 2020-05-12 10:42 | Nephrology Progress Note ---
Assessment/Plan Plan #JYOTI - concerns for vancomycin nephrotoxicity- r/o ATN- baseline Cr 0.8- also with volume depletion # osteomyelitis of LLE- on vanco, cefepime and flagyl #AMS #diabetes # hypertension, #hyperlipidemia # dementia. - HD tomorrow - DC midodrine 5 TID - plan for PEG tomorrow - monitor hemoglobin - renal US with no acute findings - anibiotics per ID- - avoid vanco for now - monitor renal output - add epo 4k TIW time spent 45 min Subjective Subjective planning for HD today plan for PEG today BP uptrending will DC midodrine Objective Objective Last 24 Hour Vital Signs Date Time Temp Pulse Resp B/P (MAP) Pulse Ox O2 Delivery O2 Flow Rate FiO2 05/12/20 04:00 97.1 85 21 104/51 (68) 95 05/12/20 00:00 97.6 78 19 141/64 (89) 97 05/11/20 21:00 Room Air 05/11/20 20:00 97.2 72 18 124/51 (75) 98 05/11/20 16:00 98.0 111 20 162/98 (119) 95 05/11/20 12:00 97.0 73 20 120/52 (74) 97 Intake and Output 05/11/20 05/12/20 19:00 07:00 Intake Total 110 ml Output Total 100 ml 90 ml Balance 10 ml -90 ml Intake IV Total 110 ml Output Urine Total 100 ml 90 ml # Voids 1 # Bowel Movements 1 1 Laboratory Tests 05/11/20 12:37: POC Whole Blood Glucose [Pending] 05/11/20 18:42: POC Whole Blood Glucose 242H 05/11/20 23:29: POC Whole Blood Glucose 279H 05/12/20 05:00: White Blood Count 13.0H, Red Blood Count 3.15L, Hemoglobin 10.0L, Hematocrit 28.8L, Mean Corpuscular Volume 91, Mean Corpuscular Hemoglobin 31.7H, Mean Corpuscular Hemoglobin Concent 34.8, Red Cell Distribution Width 15.3H, Platelet Count 22L, Mean Platelet Volume 15.6H, Neutrophils (%) (Auto) , Lymphocytes (%) (Auto) , Monocytes (%) (Auto) , Eosinophils (%) (Auto) , Basophils (%) (Auto) , Differential Total Cells Counted 100, Neutrophils % (Manual) 91H, Lymphocytes % (Manual) 5L, Monocytes % (Manual) 4, Eosinophils % (Manual) 0, Basophils % (Manual) 0, Band Neutrophils 0, Nucleated Red Blood Cells 2, Platelet Estimate DecreasedL, Platelet Morphology Normal, Hypochromasia 1+, Anisocytosis 1+, Sodium Level 142, Potassium Level 3.5, Chloride Level 107, Carbon Dioxide Level 17L, Anion Gap 18H, Blood Urea Nitrogen 53H, Creatinine 5.1H, Estimat Glomerular Filtration Rate 10.2, Glucose Level 360H, Calcium Level 7.4L, Phosphorus Level 3.4, Magnesium Level 1.6L, Total Bilirubin 3.1H, Direct Bilirubin 2.6H, Aspartate Amino Transf (AST/SGOT) 369H, Alanine Aminotransferase (ALT/SGPT) 146H , Alkaline Phosphatase 795H, Total Protein 3.3L, Albumin 1.1L, Globulin 2.2, Albumin/Globulin Ratio 0.5L Height (Feet): 5 Height (Inches): 7.00 Weight (Pounds): 130 Objective General Appearance: no apparent distress EENT: PERRL/EOMI, normal ENT inspection Neck: non-tender, normal alignment Cardiovascular: normal peripheral pulses, normal rate, regular rhythm Respiratory/Chest: chest wall non-tender, lungs clear, normal breath sounds Abdomen: normal bowel sounds, non tender Niko Waterman M.D. May 12, 2020 10:42
--- NOTE | 2020-05-12 14:40 | General Progress Note ---
Subjective Date patient seen: May 12, 2020 Time patient seen: 14:38 Allergies: Coded Allergies: PENICILLINS (Verified Allergy, Unknown, 12/05/17) Subjective To receive platelets today; pending EGD /PEG however need for labs to look better. Per Nephro, Will order Permacath per Nephro. I personally confirmed w/ GI that family has now agreed to PEG tube and want to move forward with this. Objective Last 24 Hour Vital Signs Date Time Temp Pulse Resp B/P (MAP) Pulse Ox O2 Delivery O2 Flow Rate FiO2 05/12/20 12:00 97.0 66 17 130/75 (93) 97 05/12/20 09:00 Room Air 05/12/20 08:00 97.1 63 20 119/76 (90) 99 05/12/20 04:00 97.1 85 21 104/51 (68) 95 05/12/20 00:00 97.6 78 19 141/64 (89) 97 05/11/20 21:00 Room Air 05/11/20 20:00 97.2 72 18 124/51 (75) 98 05/11/20 16:00 98.0 111 20 162/98 (119) 95 Intake and Output 05/11/20 05/12/20 19:00 07:00 Intake Total 110 ml Output Total 100 ml 90 ml Balance 10 ml -90 ml Intake IV Total 110 ml Output Urine Total 100 ml 90 ml # Voids 1 # Bowel Movements 1 1 Laboratory Tests 05/11/20 18:42: POC Whole Blood Glucose 242H 05/11/20 23:29: POC Whole Blood Glucose 279H 05/12/20 05:00: White Blood Count 13.0H, Red Blood Count 3.15L, Hemoglobin 10.0L, Hematocrit 28.8L, Mean Corpuscular Volume 91, Mean Corpuscular Hemoglobin 31.7H, Mean Corpuscular Hemoglobin Concent 34.8, Red Cell Distribution Width 15.3H, Platelet Count 22L, Mean Platelet Volume 15.6H, Neutrophils (%) (Auto) , Lymphocytes (%) (Auto) , Monocytes (%) (Auto) , Eosinophils (%) (Auto) , Basophils (%) (Auto) , Differential Total Cells Counted 100, Neutrophils % (Manual) 91H, Lymphocytes % (Manual) 5L, Monocytes % (Manual) 4, Eosinophils % (Manual) 0, Basophils % (Manual) 0, Band Neutrophils 0, Nucleated Red Blood Cells 2, Platelet Estimate DecreasedL, Platelet Morphology Normal, Hypochromasia 1+, Anisocytosis 1+, Sodium Level 142, Potassium Level 3.5, Chloride Level 107, Carbon Dioxide Level 17L, Anion Gap 18H, Blood Urea Nitrogen 53H, Creatinine 5.1H, Estimat Glomerular Filtration Rate 10.2, Glucose Level 360H, Calcium Level 7.4L, Phosphorus Level 3.4, Magnesium Level 1.6L, Total Bilirubin 3.1H, Direct Bilirubin 2.6H, Aspartate Amino Transf (AST/SGOT) 369H, Alanine Aminotransferase (ALT/SGPT) 146H , Alkaline Phosphatase 795H, Total Protein 3.3L, Albumin 1.1L, Globulin 2.2, Albumin/Globulin Ratio 0.5L 05/12/20 11:35: POC Whole Blood Glucose [Pending] 05/12/20 12:40: Miscellaneous Test [Pending] Height (Feet): 5 Height (Inches): 7.00 Weight (Pounds): 130 General Appearance: other - Lethargic EENT: PERRL/EOMI Cardiovascular: normal rate, regular rhythm, other - Doyle noted Respiratory/Chest: no respiratory distress, no accessory muscle use Abdomen: soft, other - NG tube in place Neurologic: other - non focal Assessment/Plan Assessment/Plan: This is a 69-year-old female presenting with acute encephalopathy, JYOTI, acute UTI; now ESRD on HD, Encephalopathic w/ Dysphagia and Chronic Osteo: #Acute Renal Failure now ESRD requiring HD s/p Doyle --> ATN? Normal Renal US Appreciate Nephro; S/P Fluid Challenge Will order Permcath Placement--> on hold 2/2 thrombocytopenia Continue HD as scheduled; Midodrine prn Hypotension Continue Sodium Bicarb Tabs #Metabolic Encephalopathy Exacerbated by Dementia #Dysphagia 2/2 Above Appreciate Neuro, CTH WNL Avoid Sedating Medications Pending PEG tube placement per GI --> on hold 2/2 thrombocytopenia Tube Feeding for now #Thrombocytopenia #Anemia of Chronic Dx Appreciate Heme Transfuse platelets to maintain above 15 to avoid ICH or above 50 if active ble eding Transfuse for HGB less than 7 #LLE Osteo-Appreciate ID #[id number] Cultures noted; S/P Broad Spectrum AB Current AB: Cefepime/Flagyl/Doxy until 05/24 #Transaminitis --> Pending Abd US #DMII ISS, Add long acting prn DVT/GI ppx Maricruz Ayala D.O. May 12, 2020 14:40
--- NOTE | 2020-05-12 14:55 | NUR ---
NURSE NOTES: Call [facility] nephrology and spoke to Kane regarding dialysis order today. Kane will contact on-call nurse.
--- NOTE | 2020-05-12 16:05 | NUR ---
CHARGE NURSE NOTE: During CN rounds dark bloody diarrhea noted. notified.
--- NOTE | 2020-05-12 16:20 | NUR ---
NURSE NOTES: NG tube clogged and not able to use it. Left massage to regarding NG tube and waiting for call back.
--- NOTE | 2020-05-12 16:59 | NUR ---
CASE MANAGEMENT:REVIEW SI; RENAL FAILURE. UTI. DVT. S/P PEG PLACEMENT 97.6 86 21 141/64 95% ON RA WBC 13.0 H/H 10.0/28.8 BUN 53 CR 5.1 BG 360 CA 7.4 MAG 1.6 T-BILI 3.1 D-BILI 2.3 AST 369 ALT 146 ALP 795 ALB 1.1 IS; K-DUR NG TUBE ONCE FLAGYL NG TUBE Q8 MIDODRINE NG TID PROTONIX IV Q12 NaHCO3 NG TID INSULIN NOVOLOG SQ QD CEFEPIME IV QD DOXYCYCLINE IV Q12 MED SURG STATUS DCP; FROM [facility]
--- NOTE | 2020-05-12 17:05 | Infectious Diseases Prog Note ---
Assessment/Plan Assessment/Plan ASSESSMENT AND PLAN: 1. 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 sepsis, leukocytosis, fungal uti, JYOTI, blood cultures negative, chest x-ray negative - cefepime, doxycycline, flagyl - day # 35/42 -s/p diflucan - monitor labs - wound management per surgery - leukocytosis improved 2. Acute renal failure. Dialysis. 3. Diabetes. 4. Hypertension. 5. Dyslipidemia. 6. Diabetes and hypertension treatment per primary care team. 7. Anemia. 8. Wound care per Surgery. 9. Allergic to penicillin. 10. Social history is negative. 11. Family history is noncontributory. 12. MAR is noted. 13. Case discussed with RN. Subjective Constitutional: Reports: fatigue; Denies: fever HEENT: Denies: congestion Respiratory: Denies: shortness of breath Cardiovascular: Denies: chest pain Gastrointestinal/Abdominal: Denies: nausea, vomiting, diarrhea Genitourinary: Reports: other - + alaniz Neurologic: Denies: headache Psychiatric: Denies: depression Skin: Denies: rash Hematologic: Denies: bleeding Musculoskeletal: Denies: pain Allergies: Coded Allergies: PENICILLINS (Verified Allergy, Unknown, 12/05/17) Objective Last 24 Hour Vital Signs Date Time Temp Pulse Resp B/P (MAP) Pulse Ox O2 Delivery O2 Flow Rate FiO2 05/12/20 16:00 97.1 86 17 130/69 (89) 95 05/12/20 12:00 97.0 66 17 130/75 (93) 97 05/12/20 09:00 Room Air 05/12/20 08:00 97.1 63 20 119/76 (90) 99 05/12/20 04:00 97.1 85 21 104/51 (68) 95 05/12/20 00:00 97.6 78 19 141/64 (89) 97 05/11/20 21:00 Room Air 05/11/20 20:00 97.2 72 18 124/51 (75) 98 Height (Feet): 5 Height (Inches): 7.00 Weight (Pounds): 130 General Appearance: no acute distress HEENT: normocephalic, atraumatic, anicteric, mucous membranes moist Respiratory/Chest: lungs clear, normal breath sounds, no respiratory distress, no accessory muscle use Cardiovascular: normal rate, regular rhythm Abdomen: normal bowel sounds, soft, non tender, no organomegaly, non distended Genitourinary: other - + alaniz - urine slt cloudy Extremities: other - wounds covered Skin: no rash Neurologic/Psychiatric: other - lethargic, weak Lymphatic: no neck adenopathy Musculoskeletal: no effusion Chest x-ray - 05/04/20 - Procedure: XRAY Chest 1v Indication: Shortness of breath Technique: One view of the chest Comparison: 03/31/2020 Findings: Interim placement of a right jugular temporary dialysis catheter in satisfactory position. No pneumothorax. The lungs and pleural spaces are clear. The heart size is normal Impression: No acute process Microbiology Date/Time Source Procedure Growth Status 05/11/20 16:54 Nasopharynx SARS-CoV-2 RdRp Gene Assay - Final Complete Laboratory Tests Test 05/11/20 18:42 05/11/20 23:29 05/12/20 05:00 05/12/20 11:35 POC Whole Blood Glucose 242 MG/DL (74-106) H 279 MG/DL (74-106) H Pending White Blood Count 13.0 K/UL (4.8-10.8) H Red Blood Count 3.15 M/UL (4.20-5.40) L Hemoglobin 10.0 G/DL (12.0-16.0) L Hematocrit 28.8 % (37.0-47.0) L Mean Corpuscular Volume 91 FL (80-99) Mean Corpuscular Hemoglobin 31.7 PG (27.0-31.0) H Mean Corpuscular Hemoglobin Concent 34.8 G/DL (32.0-36.0) Red Cell Distribution Width 15.3 % (11.6-14.8) H Platelet Count 22 K/UL (150-450) L Mean Platelet Volume 15.6 FL (6.5-10.1) H Neutrophils (%) (Auto) % (45.0-75.0) Lymphocytes (%) (Auto) % (20.0-45.0) Monocytes (%) (Auto) % (1.0-10.0) Eosinophils (%) (Auto) % (0.0-3.0) Basophils (%) (Auto) % (0.0-2.0) Differential Total Cells Counted 100 Neutrophils % (Manual) 91 % (45-75) H Lymphocytes % (Manual) 5 % (20-45) L Monocytes % (Manual) 4 % (1-10) Eosinophils % (Manual) 0 % (0-3) Basophils % (Manual) 0 % (0-2) Band Neutrophils 0 % (0-8) Nucleated Red Blood Cells 2 /100 WBC Platelet Estimate Decreased L Platelet Morphology Normal Hypochromasia 1+ Anisocytosis 1+ Sodium Level 142 MMOL/L (136-145) Potassium Level 3.5 MMOL/L (3.5-5.1) Chloride Level 107 MMOL/L (98-107) Carbon Dioxide Level 17 MMOL/L (21-32) L Anion Gap 18 mmol/L (5-15) H Blood Urea Nitrogen 53 mg/dL (7-18) H Creatinine 5.1 MG/DL (0.55-1.30) H Estimat Glomerular Filtration Rate 10.2 mL/min (>60) Glucose Level 360 MG/DL (74-106) H Calcium Level 7.4 MG/DL (8.5-10.1) L Phosphorus Level 3.4 MG/DL (2.5-4.9) Magnesium Level 1.6 MG/DL (1.8-2.4) L Total Bilirubin 3.1 MG/DL (0.2-1.0) H Direct Bilirubin 2.6 MG/DL (0.0-0.3) H Aspartate Amino Transf (AST/SGOT) 369 U/L (15-37) H Alanine Aminotransferase (ALT/SGPT) 146 U/L (12-78) H Alkaline Phosphatase 795 U/L (46-116) H Total Protein 3.3 G/DL (6.4-8.2) L Albumin 1.1 G/DL (3.4-5.0) L Globulin 2.2 g/dL Albumin/Globulin Ratio 0.5 (1.0-2.7) L Test 05/12/20 12:40 Miscellaneous Test Pending Current Medications Medications (Trade) Dose Ordered Sig/Enrike Route PRN Reason Start Time Stop Time Status Last Admin Dose Admin Bisacodyl (Dulcolax) 10 mg DAILYPRN PRN RECTAL Constipation 05/01/20 20:30 07/30/20 20:29 Cefepime HCl 1 gm/ Dextrose 55 ml @ 110 mls/hr Q24H IVPB 05/11/20 18:00 05/24/20 23:59 05/11/20 19:37 Chlorhexidine Gluconate (Holli-Hex 2%) 1 applic 2XW TOPIC 05/06/20 09:00 08/04/20 08:59 05/10/20 09:36 Chlorhexidine Gluconate (Holli-Hex 2%) 1 applic DAILY@1999 TOPIC 05/02/20 20:00 07/31/20 19:59 05/11/20 19:46 Dextrose (Dextrose 50%) 25 ml Q30M PRN IV Hypoglycemia 05/01/20 20:30 07/30/20 20:29 Dextrose (Dextrose 50%) 50 ml Q30M PRN IV Hypoglycemia 05/01/20 20:30 07/30/20 20:29 Doxycycline Hyclate 100 mg/ Dextrose 110 ml @ 110 mls/hr Q12HR IV 05/08/20 21:00 05/24/20 23:59 05/12/20 09:34 Insulin Aspart (NovoLOG) Q6HR SUBQ 05/03/20 00:00 08/01/20 00:00 05/12/20 11:46 Metronidazole (Flagyl) 500 mg EVERY 8 HOURS ORAL 05/10/20 22:00 05/24/20 23:59 05/12/20 04:50 Ondansetron HCl (Zofran) 4 mg Q6H PRN IVP Nausea & Vomiting 05/01/20 20:30 05/31/20 20:29 Pantoprazole (Protonix) 40 mg EVERY 12 HOURS IVP 05/12/20 16:15 06/11/20 16:14 Sodium Hypochlorite (Dakin's Quarter Strength) 1 applic DAILY TOPIC 05/05/20 09:00 06/04/20 08:59 05/12/20 09:00 Sodium Bicarbonate (NaHCO3) 650 mg THREE TIMES A DAY ORAL 05/02/20 18:00 06/01/20 17:59 05/12/20 09:36 lEyse Leung MD May 12, 2020 17:05
[2020-05-12] MEDS: Pantoprazole Inj IVP SCH ×2 (17:29→23:46)
[2020-05-12] MEDS: Cefepime HCl 1 GM in D5W 55 ML IVPB SCH (17:29)
--- NOTE | 2020-05-12 17:49 | Surgery Progress Note ---
Surgery Progress Note Subjective Additional Comments ill appearing no acute events labs noted micro reviewed Objective Last 24 Hour Vital Signs Date Time Temp Pulse Resp B/P (MAP) Pulse Ox O2 Delivery O2 Flow Rate FiO2 05/12/20 16:00 97.1 86 17 130/69 (89) 95 05/12/20 12:00 97.0 66 17 130/75 (93) 97 05/12/20 09:00 Room Air 05/12/20 08:00 97.1 63 20 119/76 (90) 99 05/12/20 04:00 97.1 85 21 104/51 (68) 95 05/12/20 00:00 97.6 78 19 141/64 (89) 97 05/11/20 21:00 Room Air 05/11/20 20:00 97.2 72 18 124/51 (75) 98 I&O Intake and Output 05/11/20 05/12/20 19:00 07:00 Intake Total 110 ml Output Total 100 ml 90 ml Balance 10 ml -90 ml Intake IV Total 110 ml Output Urine Total 100 ml 90 ml # Voids 1 # Bowel Movements 1 1 Dressing: saturated Cardiovascular: RSR Respiratory: decreased breath sounds Abdomen: soft, non-tender, present bowel sounds Extremities: no tenderness, other Laboratory Tests Test 05/11/20 18:42 05/11/20 23:29 05/12/20 05:00 05/12/20 11:35 POC Whole Blood Glucose 242 MG/DL (74-106) H 279 MG/DL (74-106) H Pending White Blood Count 13.0 K/UL (4.8-10.8) H Red Blood Count 3.15 M/UL (4.20-5.40) L Hemoglobin 10.0 G/DL (12.0-16.0) L Hematocrit 28.8 % (37.0-47.0) L Mean Corpuscular Volume 91 FL (80-99) Mean Corpuscular Hemoglobin 31.7 PG (27.0-31.0) H Mean Corpuscular Hemoglobin Concent 34.8 G/DL (32.0-36.0) Red Cell Distribution Width 15.3 % (11.6-14.8) H Platelet Count 22 K/UL (150-450) L Mean Platelet Volume 15.6 FL (6.5-10.1) H Neutrophils (%) (Auto) % (45.0-75.0) Lymphocytes (%) (Auto) % (20.0-45.0) Monocytes (%) (Auto) % (1.0-10.0) Eosinophils (%) (Auto) % (0.0-3.0) Basophils (%) (Auto) % (0.0-2.0) Differential Total Cells Counted 100 Neutrophils % (Manual) 91 % (45-75) H Lymphocytes % (Manual) 5 % (20-45) L Monocytes % (Manual) 4 % (1-10) Eosinophils % (Manual) 0 % (0-3) Basophils % (Manual) 0 % (0-2) Band Neutrophils 0 % (0-8) Nucleated Red Blood Cells 2 /100 WBC Platelet Estimate Decreased L Platelet Morphology Normal Hypochromasia 1+ Anisocytosis 1+ Sodium Level 142 MMOL/L (136-145) Potassium Level 3.5 MMOL/L (3.5-5.1) Chloride Level 107 MMOL/L (98-107) Carbon Dioxide Level 17 MMOL/L (21-32) L Anion Gap 18 mmol/L (5-15) H Blood Urea Nitrogen 53 mg/dL (7-18) H Creatinine 5.1 MG/DL (0.55-1.30) H Estimat Glomerular Filtration Rate 10.2 mL/min (>60) Glucose Level 360 MG/DL (74-106) H Calcium Level 7.4 MG/DL (8.5-10.1) L Phosphorus Level 3.4 MG/DL (2.5-4.9) Magnesium Level 1.6 MG/DL (1.8-2.4) L Total Bilirubin 3.1 MG/DL (0.2-1.0) H Direct Bilirubin 2.6 MG/DL (0.0-0.3) H Aspartate Amino Transf (AST/SGOT) 369 U/L (15-37) H Alanine Aminotransferase (ALT/SGPT) 146 U/L (12-78) H Alkaline Phosphatase 795 U/L (46-116) H Total Protein 3.3 G/DL (6.4-8.2) L Albumin 1.1 G/DL (3.4-5.0) L Globulin 2.2 g/dL Albumin/Globulin Ratio 0.5 (1.0-2.7) L Test 12/30/20 12:40 05/12/20 17:34 Miscellaneous Test Pending POC Whole Blood Glucose Pending Plan Problems: (1) UTI (urinary tract infection) (2) JYOTI (acute kidney injury) (3) Hyperkalemia (4) Leukocytosis Assessment & Plan: dvt upper extremity picc related remove picc once temp line in anticoag as per heme worsening leukocytosis on abx (5) Sepsis (6) Altered mental status (7) Sacral decubitus ulcer Assessment & Plan: 69-year-old female multiple comorbidities presented with failure to thrive lethargic altered mental status noted to have abnormal labs and have draining bilateral heel unstageable decubitus ulcers multiple skin lesions on the lower extremities as well as a sacral decubitus ulcer as well. Imaging reviewed. Patient has been eating less recently but currently is eating at the bedside though does not look like she is taking much in. Treatment plan Turn every 2 hours Offload pressure with pillows pillow on side as necessary as well as underneath calf to elevate heels Air soft mattress nutritional optimization continue IV antibiotics per infectious disease SACRUM- STAGE - UNSTAGEABLE PRESSURE ULCER MEASURES 6.0X13.0X0.2. WOUND BED WITH 80% SLOUGH AND 20% PINK GRANULATION TISSUE. NOTED FOUL ODOR RECOMMEND-CLEAN WITH SALINE. APPLY WET TO DRY DRESSINGS WITH DAKINS 0.25% DAKIN'S SOLUTION.COVER WITH OPTIFOAM DRESSING. REPLACE DRESSING DAILY. LEFT ISCHIUM-STAGE II PRESSURE ULCER MEASURES 4.5X0.5X0.2CM. PINK GRANULATION TISSUE NOTED. RECOMMEND- CLEAN WITH SALINE, PAT DRY. APPLY CALAZINE AND COVER WITH OPTIFOAM DRESSING. LEFT ANTERIOR LOW LEG-VENOUS ULCER MEASURES 8.0X2.6X0.2CM 100% YELLOW SLOUGH NOTED TO WOUND BED. RECOMMEND- CLEAN WITH SALINE, PA DRY. APPLY THERAHONEY. COVER WITH GAUZE AND SECURE WITH KERLIX. REPLACE DRESSING DAILY. LEFT HEEL- UNSTAGEABLE PRESSURE ULCER MEASURES 9.5X8.0X0.3CM. 100% MOIST BLACK ESCHAR. WITH STRONG FOUL ODOR. RECOMMEND- CLEAN WITH SALINE. APPLY WET TO DRY DRESSINGS WITH DAKINS 0.25% DAKIN'S SOLUTION. COVER WITH GAUZE, ABD PAD AND SECURE WITH KERLIX. REPLACE DAILY. RIGHT ANTERIOR LOW LEG-VENOUS ULCER MEASURES 2.5X3.0X0.2CM WITH PINK GRANULATION TISSUE. RIGHT ANTERIOR DISTAL LOW LEG -VENOUS ULCER MEASURES 1.5X0.2X0.1CM WITH PINK GRANULATION TISSUE. RECOMMEND-CLEAN WITH SALINE PAT DRY. APPLY XEROFORM GAUZE, GAUZE AND COVER WITH KERLIX. REPLACE DAILY RIGHT HEEL-DTI MEASURES 2.5X3.0CM. AREA DARK PURPLE IN COLOR AND BOGGY TO TOUCH. NO DRAINAGE NOTED. RECOMMEND- PAINT WITH CAVILON SKIN PROTECTOR, GAUZE AND WRAP WITH KERLIX. REPLACE DAILY. We will follow with recommendations thank you for letting participate patient's care Fairly numerous bubbles of soft tissue gas are seen within the subcutaneous fat and possibly the intrinsic musculature of the plantar surface of the heel. There is high STIR and decreased T1 signal within the calcaneus, and there is indistinctness of the inferior and posterior cortical margins of the calcaneus. There is some soft tissue ulceration of the plantar surface of the heel, as well as marked thinning of the subcutaneous fat overlying the calcaneal tuberosity. There is considerable edema of the plantar surface subcutaneous fat. There is also edema of the subcutaneous fat of the lateral and medial ankle. No focal discrete fluid collection to suggest drainable abscess demonstrated. Impression: Evidence of ulceration overlying the calcaneal tuberosity Soft tissue gas within the heel, as described. This may represent penetration the above, but is worrisome for infection with a gas-forming organism Abnormal signal within the posterior and mid calcaneus, highly suspicious for acute osteomyelitis (8) Decubitus ulcer of heel (9) Diabetes mellitus out of control (10) Acute on chronic renal failure (11) NSTEMI (non-ST elevated myocardial infarction) (12) High anion gap metabolic acidosis Joseph Alamo May 12, 2020 17:49
--- NOTE | 2020-05-12 19:30 | NUR ---
NURSE HAND-OFF: Important Events on Shift: Dialysis today and 2 unit Platelet pending Patient Status: Stable Diet: NPO Pending Orders: US Abd Pending Results/Labs:CBC, BMP on 05/13 Pending MD notification:N/A Latest Vital Signs: Temperature 97.1 , Pulse 86 , B/P 130 /69 , Respiratory Rate 17 , O2 SAT 95 , Room Air, O2 Flow Rate 3.0 . Vital Sign Comment: Stable Latest Hernandez Fall Score: 70 Fall Risk: High Risk Safety Measures: Call light Within Reach, Bed Alarm Zone 1, Side Rails Side Rails x3, Bed position Low and Locked. Fall Precautions: Yellow Socks Yellow Gown Door Sign Patient Fall Education Report given to Deepika SERRANO. Patient instable condition.
--- NOTE | 2020-05-12 19:45 | NUR ---
NURSE NOTES: Patient in bed, nonverbal. NG tube in place; tube feeding on hold at this time. Patient NPO. Hemodialysis in progress at this time. HD access located on right IJ. On bilateral soft wrist restraints; pulses palpable, skin intact. Vargas catheter patent and draining to gravity. Bed locked and in lowest position. Bed alarm on. Call light within reach. Will continue to monitor.
--- NOTE | 2020-05-12 21:56 | NUR ---
NURSE NOTES: Albumin not given by HD nurse - BP 122/70.
--- NOTE | 2020-05-12 22:14 | Neurology Progress Note ---
Interim History Interim History ROS Limited/Unobtainable: No Interim History somnolent planning for peg Objective Physical Exam Last Vital Signs Date Time Temp Pulse Resp B/P (MAP) Pulse Ox O2 Delivery O2 Flow Rate FiO2 05/12/20 20:00 97.0 89 20 122/70 (87) 95 05/12/20 09:00 Room Air 05/05/20 16:12 3.0 99 Laboratory Tests Test 05/11/20 23:29 05/12/20 05:00 05/12/20 11:35 05/12/20 12:40 POC Whole Blood Glucose 279 MG/DL (74-106) H Pending White Blood Count 13.0 K/UL (4.8-10.8) H Red Blood Count 3.15 M/UL (4.20-5.40) L Hemoglobin 10.0 G/DL (12.0-16.0) L Hematocrit 28.8 % (37.0-47.0) L Mean Corpuscular Volume 91 FL (80-99) Mean Corpuscular Hemoglobin 31.7 PG (27.0-31.0) H Mean Corpuscular Hemoglobin Concent 34.8 G/DL (32.0-36.0) Red Cell Distribution Width 15.3 % (11.6-14.8) H Platelet Count 22 K/UL (150-450) L Mean Platelet Volume 15.6 FL (6.5-10.1) H Neutrophils (%) (Auto) % (45.0-75.0) Lymphocytes (%) (Auto) % (20.0-45.0) Monocytes (%) (Auto) % (1.0-10.0) Eosinophils (%) (Auto) % (0.0-3.0) Basophils (%) (Auto) % (0.0-2.0) Differential Total Cells Counted 100 Neutrophils % (Manual) 91 % (45-75) H Lymphocytes % (Manual) 5 % (20-45) L Monocytes % (Manual) 4 % (1-10) Eosinophils % (Manual) 0 % (0-3) Basophils % (Manual) 0 % (0-2) Band Neutrophils 0 % (0-8) Nucleated Red Blood Cells 2 /100 WBC Platelet Estimate Decreased L Platelet Morphology Normal Hypochromasia 1+ Anisocytosis 1+ Sodium Level 142 MMOL/L (136-145) Potassium Level 3.5 MMOL/L (3.5-5.1) Chloride Level 107 MMOL/L (98-107) Carbon Dioxide Level 17 MMOL/L (21-32) L Anion Gap 18 mmol/L (5-15) H Blood Urea Nitrogen 53 mg/dL (7-18) H Creatinine 5.1 MG/DL (0.55-1.30) H Estimat Glomerular Filtration Rate 10.2 mL/min (>60) Glucose Level 360 MG/DL (74-106) H Calcium Level 7.4 MG/DL (8.5-10.1) L Phosphorus Level 3.4 MG/DL (2.5-4.9) Magnesium Level 1.6 MG/DL (1.8-2.4) L Total Bilirubin 3.1 MG/DL (0.2-1.0) H Direct Bilirubin 2.6 MG/DL (0.0-0.3) H Aspartate Amino Transf (AST/SGOT) 369 U/L (15-37) H Alanine Aminotransferase (ALT/SGPT) 146 U/L (12-78) H Alkaline Phosphatase 795 U/L (46-116) H Total Protein 3.3 G/DL (6.4-8.2) L Albumin 1.1 G/DL (3.4-5.0) L Globulin 2.2 g/dL Albumin/Globulin Ratio 0.5 (1.0-2.7) L Miscellaneous Test Pending Test 05/12/20 17:34 POC Whole Blood Glucose Pending Impression/Recommendations Problems: (1) Sepsis (2) Hyperkalemia (3) Leukocytosis (4) Altered mental status (5) Diabetes mellitus out of control (6) Acute on chronic renal failure (7) NSTEMI (non-ST elevated myocardial infarction) (8) High anion gap metabolic acidosis (9) Sacral decubitus ulcer (10) Decubitus ulcer of heel (11) UTI (urinary tract infection) (12) JYOTI (acute kidney injury) Diagnostic Impression acute metabolic encephalopathy jyoti sepsis baseline dementia cont ivfs delirium precautions no need for mri brain cont Thee Burden MD May 12, 2020 22:14
[2020-05-12] MEDS: Dyna-Hex 2% Top Sol 2oz TOPIC SCH (22:54)
[2020-05-13] VITALS (8 sets, daily range): BP systolic 113–154; BP diastolic 52–85
--- NOTE | 2020-05-13 00:34 | NUR ---
NURSE NOTES: Infused 1 of 2 bag platelets. Informed by blood bank that second bag is not available at this time due to shortage and that they will get it as soon as possible. Informed Dr. [facility]. No new orders. Will follow up first thing in the morning at 0600.
--- NOTE | 2020-05-13 06:14 | NUR ---
NURSE NOTES: Second bag of platelets still not available. Dr. De Jesus on the floor and made aware. . Addendum: 05/13/20 at 0645 by ELICEO DONATO RN Spoke with blood bank staff - platelets won't be available for 2 - 3 hours. Will endorse to AM shift.
[2020-05-13] MEDS: NovoLOG Insulin Flexpen SUBQ SCH ×3 (06:29→18:19)
--- NOTE | 2020-05-13 06:49 | Hematology/Onc Progress Note ---
Assessment/Plan Assessment/Plan Assessment and Recs # Left upper extremity axillary, subclavian, and brachial venous thrombosis --> heparin gtt was started-->now changed to lovenox as supertherapeutic->now HELD due to severe anemia --> consider eliquis or coumadin once closer to dc --> patient does have eleno/ckd, thus agent needed not affected by renal function --> monitor for bleed # Thrombocytopenia likely secondary to left heel and foot osteomyelitis/ infection/dic --> likely due to infected wounds, heel ulcerations --> ABX flucon/flagyl/cefepime-->doxy/cefepime --> Peripheral smear, reviewed, hold off flow for now --> elev inflammatory markers --> WBC 35-->22-->18-->14-->13-->11.4->>>13-->17 --> plt 55-->23-->26-->22 --> 2 units plt 05/13 # Anemia due to underlying chronic disease. --> Continue to closely monitor for improvement. --> Anemia w/u has been reviewed. Will trend cbc daily. --> Hgb goal >7 -> hgb 12-->10.7->9.4-->9.5->10-->7.3-->5.7-->6.2-->8-->6.4-->10 --> 2 units 05/07 --> anemia panel reviewed before # Hyperkalemia. Given Kayexalate. --> Improved # Diabetic ketoacidosis. --> per before, improved # ESRD --> hd with line inserted # Shortness of breath in past with dka # Dvt ppx --> scds The time the note was entered does not necessarily correspond to the time the patient was seen. Subjective HEENT: Denies: no symptoms, eye pain, blurred vision, tearing, double vision, ear pain, ear discharge, nose pain, nose congestion, throat pain, throat swelling, mouth pain, mouth swelling, other Cardiovascular: Denies: no symptoms, chest pain, edema, irregular heart rate, lightheadedness, palpitations, syncope, other Respiratory: Denies: no symptoms, cough, shortness of breath, SOB with excertion, SOB at rest, sputum, wheezing, other Gastrointestinal/Abdominal: Denies: no symptoms, abdomen distended, abdominal pain, black stools, tarry stools, blood in stool, constipated, diarrhea, difficulty swallowing, nausea, poor appetite, poor fluid intake, rectal bleeding, vomiting, other Genitourinary: Denies: no symptoms, burning, discharge, frequency, flank pain, hematuria, incontinence, pain, urgency, other Hematologic/Lymphatic: Denies: no symptoms, anemia, easy bleeding, easy bruising, adenopathy, other Allergies: Coded Allergies: PENICILLINS (Verified Allergy, Unknown, 12/05/17) Subjective 05/05 hgb 7.3 this am, plts lower, no bleeding, ptt elev, will hold off hep gtt 05/06 labs noted, no bleeding, now on lovenox sq, sis somnolent in am 05/07 is on lovenox sq, is s/p transfusion, labs noted, on abx 05/09 anticoag is held, pending for cbc today, labs noted 05/10 anticoag held, for platelets to goal >50k, with coffee ground emesis 05/11 hd was given last night, bp was low and albumin administered, bp better 05/12 nv, labs reviewed, aphasic, plt 26 yesterday, meds reviewed, to get cbc today 05/13 2nd bag of platelets is pending, jessie Rn, plt recently 22k Objective Objective Current Medications Medications (Trade) Dose Ordered Sig/Enrike Route PRN Reason Start Time Stop Time Status Last Admin Dose Admin Bisacodyl (Dulcolax) 10 mg DAILYPRN PRN RECTAL Constipation 05/01/20 20:30 07/30/20 20:29 Cefepime HCl 1 gm/ Dextrose 55 ml @ 110 mls/hr Q24H IVPB 05/11/20 18:00 05/24/20 23:59 05/12/20 17:29 Chlorhexidine Gluconate (Holli-Hex 2%) 1 applic 2XW TOPIC 05/06/20 09:00 08/04/20 08:59 05/10/20 09:36 Chlorhexidine Gluconate (Holli-Hex 2%) 1 applic DAILY@1999 TOPIC 05/02/20 20:00 07/31/20 19:59 05/11/20 19:46 Dextrose (Dextrose 50%) 25 ml Q30M PRN IV Hypoglycemia 05/01/20 20:30 07/30/20 20:29 Dextrose (Dextrose 50%) 50 ml Q30M PRN IV Hypoglycemia 05/01/20 20:30 07/30/20 20:29 Doxycycline Hyclate 100 mg/ Dextrose 110 ml @ 110 mls/hr Q12HR IV 05/08/20 21:00 05/24/20 23:59 05/12/20 00:40 Insulin Aspart (NovoLOG) Q6HR SUBQ 05/03/20 00:00 08/01/20 00:00 05/13/20 06:29 Metronidazole 100 ml @ 100 mls/hr Q8HR IVPB 05/12/20 22:00 05/19/20 21:59 05/13/20 06:30 Ondansetron HCl (Zofran) 4 mg Q6H PRN IVP Nausea & Vomiting 05/01/20 20:30 05/31/20 20:29 Pantoprazole (Protonix) 40 mg EVERY 12 HOURS IVP 05/12/20 16:15 06/11/20 16:14 05/12/20 23:46 Sodium Hypochlorite (Dakin's Quarter Strength) 1 applic DAILY TOPIC 05/05/20 09:00 06/04/20 08:59 05/12/20 09:00 Sodium Bicarbonate (NaHCO3) 650 mg THREE TIMES A DAY ORAL 05/02/20 18:00 06/01/20 17:59 05/12/20 09:36 Last 24 Hour Vital Signs Date Time Temp Pulse Resp B/P (MAP) Pulse Ox O2 Delivery O2 Flow Rate FiO2 05/13/20 04:00 97.0 88 20 144/66 (92) 95 05/13/20 00:00 97.0 87 20 113/52 (72) 94 05/12/20 21:00 Room Air 05/12/20 20:00 97.0 89 20 122/70 (87) 95 05/12/20 16:00 97.1 86 17 130/69 (89) 95 05/12/20 12:00 97.0 66 17 130/75 (93) 97 05/12/20 09:00 Room Air 05/12/20 08:00 97.1 63 20 119/76 (90) 99 05/12/20 04:00 97.1 85 21 104/51 (68) 95 05/12/20 00:00 97.6 78 19 141/64 (89) 97 05/11/20 21:00 Room Air 05/11/20 20:00 97.2 72 18 124/51 (75) 98 05/11/20 16:00 98.0 111 20 162/98 (119) 95 05/11/20 12:00 97.0 73 20 120/52 (74) 97 05/11/20 09:00 Room Air 05/11/20 08:00 97.0 73 20 141/67 (91) 96 Intake and Output 05/12/20 05/13/20 19:00 07:00 Intake Total 0 ml Output Total 100 ml Balance -100 ml Intake Oral 0 ml Output Urine Total 100 ml # Bowel Movements 1 Labs Test 05/10/20 08:00 05/10/20 11:36 05/10/20 16:38 05/10/20 20:46 White Blood Count 12.5 K/UL (4.8-10.8) Red Blood Count 3.28 M/UL (4.20-5.40) Hemoglobin 9.8 G/DL (12.0-16.0) Hematocrit 28.7 % (37.0-47.0) Mean Corpuscular Volume 87 FL (80-99) Mean Corpuscular Hemoglobin 29.8 PG (27.0-31.0) Mean Corpuscular Hemoglobin Concent 34.1 G/DL (32.0-36.0) Red Cell Distribution Width 14.2 % (11.6-14.8) Platelet Count 37 K/UL (150-450) Mean Platelet Volume 11.7 FL (6.5-10.1) Neutrophils (%) (Auto) % (45.0-75.0) Lymphocytes (%) (Auto) % (20.0-45.0) Monocytes (%) (Auto) % (1.0-10.0) Eosinophils (%) (Auto) % (0.0-3.0) Basophils (%) (Auto) % (0.0-2.0) Differential Total Cells Counted 100 Neutrophils % (Manual) 83 % (45-75) Lymphocytes % (Manual) 15 % (20-45) Monocytes % (Manual) 2 % (1-10) Eosinophils % (Manual) 0 % (0-3) Basophils % (Manual) 0 % (0-2) Band Neutrophils 0 % (0-8) Platelet Estimate Decreased Platelet Morphology Normal Hypochromasia 1+ Anisocytosis 1+ Sodium Level 141 MMOL/L (136-145) Potassium Level 3.2 MMOL/L (3.5-5.1) Chloride Level 107 MMOL/L (98-107) Carbon Dioxide Level 17 MMOL/L (21-32) Anion Gap 17 mmol/L (5-15) Blood Urea Nitrogen 49 mg/dL (7-18) Creatinine 4.7 MG/DL (0.55-1.30) Estimat Glomerular Filtration Rate 11.2 mL/min (>60) Glucose Level 332 MG/DL (74-106) Calcium Level 7.4 MG/DL (8.5-10.1) Total Bilirubin 1.4 MG/DL (0.2-1.0) Direct Bilirubin 0.9 MG/DL (0.0-0.3) Aspartate Amino Transf (AST/SGOT) 296 U/L (15-37) Alanine Aminotransferase (ALT/SGPT) 121 U/L (12-78) Alkaline Phosphatase 450 U/L (46-116) Total Protein 4.0 G/DL (6.4-8.2) Albumin 1.1 G/DL (3.4-5.0) Globulin 2.9 g/dL Albumin/Globulin Ratio 0.4 (1.0-2.7) POC Whole Blood Glucose 281 MG/DL (74-106) 277 MG/DL (74-106) 239 MG/DL (74-106) Test 05/11/20 05:42 05/11/20 08:00 05/11/20 12:37 05/11/20 18:42 POC Whole Blood Glucose 279 MG/DL (74-106) 242 MG/DL (74-106) White Blood Count 12.7 K/UL (4.8-10.8) Red Blood Count 3.41 M/UL (4.20-5.40) Hemoglobin 10.5 G/DL (12.0-16.0) Hematocrit 29.4 % (37.0-47.0) Mean Corpuscular Volume 86 FL (80-99) Mean Corpuscular Hemoglobin 30.8 PG (27.0-31.0) Mean Corpuscular Hemoglobin Concent 35.8 G/DL (32.0-36.0) Red Cell Distribution Width 14.7 % (11.6-14.8) Platelet Count 26 K/UL (150-450) Mean Platelet Volume 13.5 FL (6.5-10.1) Neutrophils (%) (Auto) % (45.0-75.0) Lymphocytes (%) (Auto) % (20.0-45.0) Monocytes (%) (Auto) % (1.0-10.0) Eosinophils (%) (Auto) % (0.0-3.0) Basophils (%) (Auto) % (0.0-2.0) Differential Total Cells Counted 100 Neutrophils % (Manual) 80 % (45-75) Lymphocytes % (Manual) 11 % (20-45) Monocytes % (Manual) 9 % (1-10) Eosinophils % (Manual) 0 % (0-3) Basophils % (Manual) 0 % (0-2) Band Neutrophils 0 % (0-8) Platelet Estimate Decreased Platelet Morphology Normal Hypochromasia 1+ Anisocytosis 1+ Sodium Level 141 MMOL/L (136-145) Potassium Level 3.0 MMOL/L (3.5-5.1) Chloride Level 108 MMOL/L (98-107) Carbon Dioxide Level 20 MMOL/L (21-32) Anion Gap 13 mmol/L (5-15) Blood Urea Nitrogen 46 mg/dL (7-18) Creatinine 4.7 MG/DL (0.55-1.30) Estimat Glomerular Filtration Rate 11.2 mL/min (>60) Glucose Level 266 MG/DL (74-106) Calcium Level 7.8 MG/DL (8.5-10.1) Test 05/11/20 23:29 05/12/20 05:00 05/12/20 11:35 05/12/20 12:40 POC Whole Blood Glucose 279 MG/DL (74-106) White Blood Count 13.0 K/UL (4.8-10.8) Red Blood Count 3.15 M/UL (4.20-5.40) Hemoglobin 10.0 G/DL (12.0-16.0) Hematocrit 28.8 % (37.0-47.0) Mean Corpuscular Volume 91 FL (80-99) Mean Corpuscular Hemoglobin 31.7 PG (27.0-31.0) Mean Corpuscular Hemoglobin Concent 34.8 G/DL (32.0-36.0) Red Cell Distribution Width 15.3 % (11.6-14.8) Platelet Count 22 K/UL (150-450) Mean Platelet Volume 15.6 FL (6.5-10.1) Neutrophils (%) (Auto) % (45.0-75.0) Lymphocytes (%) (Auto) % (20.0-45.0) Monocytes (%) (Auto) % (1.0-10.0) Eosinophils (%) (Auto) % (0.0-3.0) Basophils (%) (Auto) % (0.0-2.0) Differential Total Cells Counted 100 Neutrophils % (Manual) 91 % (45-75) Lymphocytes % (Manual) 5 % (20-45) Monocytes % (Manual) 4 % (1-10) Eosinophils % (Manual) 0 % (0-3) Basophils % (Manual) 0 % (0-2) Band Neutrophils 0 % (0-8) Nucleated Red Blood Cells 2 /100 WBC Platelet Estimate Decreased Platelet Morphology Normal Hypochromasia 1+ Anisocytosis 1+ Sodium Level 142 MMOL/L (136-145) Potassium Level 3.5 MMOL/L (3.5-5.1) Chloride Level 107 MMOL/L (98-107) Carbon Dioxide Level 17 MMOL/L (21-32) Anion Gap 18 mmol/L (5-15) Blood Urea Nitrogen 53 mg/dL (7-18) Creatinine 5.1 MG/DL (0.55-1.30) Estimat Glomerular Filtration Rate 10.2 mL/min (>60) Glucose Level 360 MG/DL (74-106) Calcium Level 7.4 MG/DL (8.5-10.1) Phosphorus Level 3.4 MG/DL (2.5-4.9) Magnesium Level 1.6 MG/DL (1.8-2.4) Total Bilirubin 3.1 MG/DL (0.2-1.0) Direct Bilirubin 2.6 MG/DL (0.0-0.3) Aspartate Amino Transf (AST/SGOT) 369 U/L (15-37) Alanine Aminotransferase (ALT/SGPT) 146 U/L (12-78) Alkaline Phosphatase 795 U/L (46-116) Total Protein 3.3 G/DL (6.4-8.2) Albumin 1.1 G/DL (3.4-5.0) Globulin 2.2 g/dL Albumin/Globulin Ratio 0.5 (1.0-2.7) Test 05/12/20 17:34 05/12/20 23:40 05/13/20 06:18 Height (Feet): 5 Height (Inches): 7.00 Weight (Pounds): 130 Objective Physical Exam Vitals: reviewed, normal General Appearance: no apparent distress, non-toxic, lethargic HEENT: bilateral eye normal inspection, bilateral eye PERRL Neck: full range of motion, supple/symm/no masses Resp: chest non-tender, lungs clear, normal breath sounds, speaking full sentences Cardiovascular: regular rate, rhythm, no edema Gastrointestinal: normal bowel sounds, non tender Rectal: deferred Genitourinary: normal inspection, no CVA tenderness Musculoskeletal: back normal, gait/station normal, non-tender Lymphatic: no adenopathy David De Jesus MD May 13, 2020 06:49
--- NOTE | 2020-05-13 08:01 | NUR ---
NURSE HAND-OFF: Important Events on Shift: 1 of 2 bags platelets infused, hemodialysis - 1L removed, NPO/NG tube feeding held Patient Status: Diet: NPO Pending Orders: Ab US for 05/13/20 Pending Results/Labs:BMP, CBC, hep panel Pending MD notification: N/A Latest Vital Signs: Temperature 97.0 , Pulse 88 , B/P 144 /66 , Respiratory Rate 20 , O2 SAT 95 , Room Air, O2 Flow Rate 3.0 . Vital Sign Comment: [] Latest Hernandez Fall Score: 70 Fall Risk: High Risk Safety Measures: Call light Within Reach, Bed Alarm Zone 1, Side Rails Side Rails x3, Bed position Low and Locked. Fall Precautions: Yellow Socks Yellow Gown Door Sign Patient Fall Education Report given to ZACH Lucas
--- NOTE | 2020-05-13 08:05 | NUR ---
NURSE NOTES: Received report from ZACH Poe. Rounding done. Pt is asleep in the bed. Rt IJ catheter is in placed. Dressing is dry/intact. Bilateral foot dressing is dry/intact. Pt has alaniz cath, hematuria. Bed in lowest position, call light within reach. Will continue to monitor.
[2020-05-13 08:09] LABS: HEMATOCRIT 32.8 % (37.0-47.0); HEMOGLOBIN 10.7 G/DL (12.0-16.0); MEAN CORPUSCULAR VOLUME 94 FL (80-99); PLATELET COUNT 57 K/UL (150-450); RED BLOOD COUNT 3.47 M/UL (4.20-5.40); RED CELL DISTRIBUTION WIDTH 15.4 % (11.6-14.8); WHITE BLOOD COUNT 18.9 K/UL (4.8-10.8)
[2020-05-13 08:24] LABS: CALCIUM 7.9 MG/DL (8.5-10.1); CREATININE 3.8 MG/DL (0.55-1.30); POTASSIUM 3.5 MMOL/L (3.5-5.1)
[2020-05-13 08:34] LABS: ALANINE AMINOTRANSFERASE 147 U/L (12-78); ALBUMIN 1.2 G/DL (3.4-5.0); ALKALINE PHOSPHATASE 1114 U/L (46-116); ASPARTATE AMINO TRANSFERASE 445 U/L (15-37); BILIRUBIN,TOTAL 4.5 MG/DL (0.2-1.0); PHOSPHORUS 2.7 MG/DL (2.5-4.9)
[2020-05-13] MEDS: Sodium Bicarbonate 650mg Tab ORAL SCH ×3 (09:00→18:01)
[2020-05-13] MEDS: Dyna-Hex 2% Top Sol 2oz TOPIC SCH ×2 (10:14→20:00)
[2020-05-13] MEDS: Doxycycline Hyclate 100 MG in D5W 110 ML IV SCH ×2 (10:14→20:28)
[2020-05-13] MEDS: Pantoprazole Inj IVP SCH ×2 (10:14→20:28)
[2020-05-13] MEDS: Levemir Flexpen SUBQ SCH (10:19)
[2020-05-13] MEDS: Dakin's 0.125% Soln (Quarter Strength) 16oz TOPIC SCH (10:20)
--- NOTE | 2020-05-13 10:51 | General Progress Note ---
Subjective ROS Limited/Unobtainable: No Allergies: Coded Allergies: PENICILLINS (Verified Allergy, Unknown, 12/05/17) Objective Last 24 Hour Vital Signs Date Time Temp Pulse Resp B/P (MAP) Pulse Ox O2 Delivery O2 Flow Rate FiO2 05/13/20 08:00 98.3 76 21 154/75 (101) 97 05/13/20 04:00 97.0 88 20 144/66 (92) 95 05/13/20 00:00 97.0 87 20 113/52 (72) 94 05/12/20 21:00 Room Air 05/12/20 20:00 97.0 89 20 122/70 (87) 95 05/12/20 16:00 97.1 86 17 130/69 (89) 95 05/12/20 12:00 97.0 66 17 130/75 (93) 97 Intake and Output 05/12/20 05/13/20 19:00 07:00 Intake Total 0 ml Output Total 100 ml Balance -100 ml Intake Oral 0 ml Output Urine Total 100 ml # Bowel Movements 1 Laboratory Tests 05/12/20 11:35: POC Whole Blood Glucose [Pending] 05/12/20 12:40: Miscellaneous Test [Pending] 05/12/20 17:34: POC Whole Blood Glucose [Pending] 05/12/20 23:40: POC Whole Blood Glucose [Pending] 05/13/20 05:56: White Blood Count 18.9H, Red Blood Count 3.47L, Hemoglobin 10.7L, Hematocrit 32.8L, Mean Corpuscular Volume 94, Mean Corpuscular Hemoglobin 30.8, Mean Corpuscular Hemoglobin Concent 32.6, Red Cell Distribution Width 15.4H, Platelet Count 57#L, Mean Platelet Volume 10.4H, Neutrophils (%) (Auto) , Lymphocytes (%) (Auto) , Monocytes (%) (Auto) , Eosinophils (%) (Auto) , Basophils (%) (Auto) , Neutrophils % (Manual) [Pending], Lymphocytes % (Manual) [Pending], Platelet Estimate [Pending], Platelet Morphology [Pending], Sodium Level 140, Potassium Level 3.5, Chloride Level 107, Carbon Dioxide Level 24, Anion Gap 9, Blood Urea Nitrogen 37H, Creatinine 3.8H, Estimat Glomerular Filtration Rate 14.3, Glucose Level 211#H, Calcium Level 7.9L, Phosphorus Level 2.7, Magnesium Level 1.7L, Total Bilirubin 4.5H, Direct Bilirubin 4.0H, Aspartate Amino Transf (AST/SGOT) 445H, Alanine Aminotransferase (ALT/SGPT) 147H, Alkaline Phosphatase 1114H, Total Protein 3.6L, Albumin 1.2L 05/13/20 06:18: POC Whole Blood Glucose [Pending] Height (Feet): 5 Height (Inches): 7.00 Weight (Pounds): 130 General Appearance: no apparent distress EENT: normal ENT inspection Neck: supple Cardiovascular: normal rate Respiratory/Chest: decreased breath sounds Abdomen: normal bowel sounds, non tender, soft Extremities: non-tender Assessment/Plan Assessment/Plan: DM RF anemia thrombocytopenia GIB UTI dysphagia covid + off lovenox ppi cbc transfuse as needed abd us reviewed ppi bid pending plt transfusion repeat labs in am needs EGD +/- peg PEG canceled given low PLT resume NGTF plan peg next week Shai Hay MD May 13, 2020 10:51
--- NOTE | 2020-05-13 11:00 | NUR ---
NURSE NOTES: Dr. Hay came and asked reinsert NGT if NGT is still clogged. Flushed with water and it was unclogged. Notified Dr. Hay.
--- NOTE | 2020-05-13 11:13 | NUR ---
NURSE NOTES: Mg 1.[address] Waterman notified. ordered Magnesium sulfate 2gm IVPB one time.
--- NOTE | 2020-05-13 13:14 | CDS Physician Query ---
Clarification is required for compliance, coding accuracy, and to reflect severity of illness for this patient Dear Patrick Guzman D.O. Date: 05/13/2020 This patient presented with the following conditions: 69-year-old female with a past medical history of diabetes, hypertension, hyperlipidemia, and dementia. Patient sent to ER from [facility] for abnormal labs. Found to have creatinine of 3. Assessment: Acute kidney injury, Hypokalemia, Hypomagnesemia, Acute metabolic encephalopathy, Underlying dementia, Acute UTI, Stage II sacral decubitus ulcer, DM2 [ H&P Patrick Cerda D.O. 05/01/202124] Assessment: # Diabetic ketoacidosis. [ David Cuevas [facility] 2019 06:49] LABs: Glucose Lvl: 113/316/283/263/344 Please clarify the clinical relevance for the "Diabetic ketoacidosis" findings stated below: [ ] Clinically relevant (please specify in diagnostic terminology in your next progress note) [ ] Insignificant findings (please document in your next progress note) [ x ] Clinically unable to be further specified [ ] Other (please specify in the medical record) [ ] Unknown Please specify if "Diabetic ketoacidosis" was present on admission: Present on Admission: [] Yes [] No [x] Clinically Undetermined Patrick Cerda 05/16/19 Physician signature Date Please also document in your Progress Notes and/or Discharge Summary and indicate if the condition was present on admission. MIKEY
--- NOTE | 2020-05-13 14:34 | Surgery Progress Note ---
Surgery Progress Note Subjective Additional Comments worsening lft's t bili discussed with gi heme input noted Objective Last 24 Hour Vital Signs Date Time Temp Pulse Resp B/P (MAP) Pulse Ox O2 Delivery O2 Flow Rate FiO2 05/13/20 12:00 97.3 96 18 151/60 (90) 97 05/13/20 09:00 Room Air 05/13/20 08:00 98.3 76 21 154/75 (101) 97 05/13/20 04:00 97.0 88 20 144/66 (92) 95 05/13/20 00:00 97.0 87 20 113/52 (72) 94 05/12/20 21:00 Room Air 05/12/20 20:00 97.0 89 20 122/70 (87) 95 05/12/20 16:00 97.1 86 17 130/69 (89) 95 I&O Intake and Output 05/12/20 05/13/20 19:00 07:00 Intake Total 0 ml Output Total 100 ml Balance -100 ml Intake Oral 0 ml Output Urine Total 100 ml # Bowel Movements 1 Cardiovascular: RSR Respiratory: decreased breath sounds Abdomen: soft, distended, decreased bowel sounds Extremities: no edema, no tenderness, other Laboratory Tests Test 05/12/20 17:34 05/12/20 23:40 05/13/20 05:56 05/13/20 06:18 POC Whole Blood Glucose Pending Pending Pending White Blood Count 18.9 K/UL (4.8-10.8) H Red Blood Count 3.47 M/UL (4.20-5.40) L Hemoglobin 10.7 G/DL (12.0-16.0) L Hematocrit 32.8 % (37.0-47.0) L Mean Corpuscular Volume 94 FL (80-99) Mean Corpuscular Hemoglobin 30.8 PG (27.0-31.0) Mean Corpuscular Hemoglobin Concent 32.6 G/DL (32.0-36.0) Red Cell Distribution Width 15.4 % (11.6-14.8) H Platelet Count 57 K/UL (150-450) #L Mean Platelet Volume 10.4 FL (6.5-10.1) H Neutrophils (%) (Auto) % (45.0-75.0) Lymphocytes (%) (Auto) % (20.0-45.0) Monocytes (%) (Auto) % (1.0-10.0) Eosinophils (%) (Auto) % (0.0-3.0) Basophils (%) (Auto) % (0.0-2.0) Differential Total Cells Counted 100 Neutrophils % (Manual) 82 % (45-75) H Lymphocytes % (Manual) 8 % (20-45) L Monocytes % (Manual) 4 % (1-10) Eosinophils % (Manual) 0 % (0-3) Basophils % (Manual) 0 % (0-2) Band Neutrophils 6 % (0-8) Platelet Estimate Decreased L Platelet Morphology Normal Anisocytosis 1+ Sodium Level 140 MMOL/L (136-145) Potassium Level 3.5 MMOL/L (3.5-5.1) Chloride Level 107 MMOL/L (98-107) Carbon Dioxide Level 24 MMOL/L (21-32) Anion Gap 9 mmol/L (5-15) Blood Urea Nitrogen 37 mg/dL (7-18) H Creatinine 3.8 MG/DL (0.55-1.30) H Estimat Glomerular Filtration Rate 14.3 mL/min (>60) Glucose Level 211 MG/DL (74-106) #H Calcium Level 7.9 MG/DL (8.5-10.1) L Phosphorus Level 2.7 MG/DL (2.5-4.9) Magnesium Level 1.7 MG/DL (1.8-2.4) L Total Bilirubin 4.5 MG/DL (0.2-1.0) H Direct Bilirubin 4.0 MG/DL (0.0-0.3) H Aspartate Amino Transf (AST/SGOT) 445 U/L (15-37) H Alanine Aminotransferase (ALT/SGPT) 147 U/L (12-78) H Alkaline Phosphatase 1114 U/L (46-116) H Total Protein 3.6 G/DL (6.4-8.2) L Albumin 1.2 G/DL (3.4-5.0) L Test 05/13/20 12:46 POC Whole Blood Glucose 208 MG/DL (74-106) H Plan Problems: (1) UTI (urinary tract infection) (2) JYOTI (acute kidney injury) (3) Hyperkalemia (4) Leukocytosis Assessment & Plan: dvt upper extremity picc related remove picc once temp line in anticoag as per heme worsening leukocytosis on abx (5) Sepsis (6) Altered mental status (7) Sacral decubitus ulcer Assessment & Plan: 69-year-old female multiple comorbidities presented with failure to thrive lethargic altered mental status noted to have abnormal labs and have draining bilateral heel unstageable decubitus ulcers multiple skin lesions on the lower extremities as well as a sacral decubitus ulcer as well. Imaging reviewed. Patient has been eating less recently but currently is eating at the bedside though does not look like she is taking much in. Treatment plan Turn every 2 hours Offload pressure with pillows pillow on side as necessary as well as underneath calf to elevate heels Air soft mattress nutritional optimization continue IV antibiotics per infectious disease SACRUM- STAGE - UNSTAGEABLE PRESSURE ULCER MEASURES 6.0X13.0X0.2. WOUND BED WITH 80% SLOUGH AND 20% PINK GRANULATION TISSUE. NOTED FOUL ODOR RECOMMEND-CLEAN WITH SALINE. APPLY WET TO DRY DRESSINGS WITH DAKINS 0.25% DAKIN'S SOLUTION.COVER WITH OPTIFOAM DRESSING. REPLACE DRESSING DAILY. LEFT ISCHIUM-STAGE II PRESSURE ULCER MEASURES 4.5X0.5X0.2CM. PINK GRANULATION TISSUE NOTED. RECOMMEND- CLEAN WITH SALINE, PAT DRY. APPLY CALAZINE AND COVER WITH OPTIFOAM DRESSING. LEFT ANTERIOR LOW LEG-VENOUS ULCER MEASURES 8.0X2.6X0.2CM 100% YELLOW SLOUGH NOTED TO WOUND BED. RECOMMEND- CLEAN WITH SALINE, PA DRY. APPLY THERAHONEY. COVER WITH GAUZE AND SECURE WITH KERLIX. REPLACE DRESSING DAILY. LEFT HEEL- UNSTAGEABLE PRESSURE ULCER MEASURES 9.5X8.0X0.3CM. 100% MOIST BLACK ESCHAR. WITH STRONG FOUL ODOR. RECOMMEND- CLEAN WITH SALINE. APPLY WET TO DRY DRESSINGS WITH DAKINS 0.25% DAKIN'S SOLUTION. COVER WITH GAUZE, ABD PAD AND SECURE WITH KERLIX. REPLACE DAILY. RIGHT ANTERIOR LOW LEG-VENOUS ULCER MEASURES 2.5X3.0X0.2CM WITH PINK GRANULATION TISSUE. RIGHT ANTERIOR DISTAL LOW LEG -VENOUS ULCER MEASURES 1.5X0.2X0.1CM WITH PINK GRANULATION TISSUE. RECOMMEND-CLEAN WITH SALINE PAT DRY. APPLY XEROFORM GAUZE, GAUZE AND COVER WITH KERLIX. REPLACE DAILY RIGHT HEEL-DTI MEASURES 2.5X3.0CM. AREA DARK PURPLE IN COLOR AND BOGGY TO TOUCH. NO DRAINAGE NOTED. RECOMMEND- PAINT WITH CAVILON SKIN PROTECTOR, GAUZE AND WRAP WITH KERLIX. REPLACE DAILY. We will follow with recommendations thank you for letting participate patient's care Fairly numerous bubbles of soft tissue gas are seen within the subcutaneous fat and possibly the intrinsic musculature of the plantar surface of the heel. There is high STIR and decreased T1 signal within the calcaneus, and there is indistinctness of the inferior and posterior cortical margins of the calcaneus. There is some soft tissue ulceration of the plantar surface of the heel, as well as marked thinning of the subcutaneous fat overlying the calcaneal tuberosity. There is considerable edema of the plantar surface subcutaneous fat. There is also edema of the subcutaneous fat of the lateral and medial ankle. No focal discrete fluid collection to suggest drainable abscess demonstrated. Impression: Evidence of ulceration overlying the calcaneal tuberosity Soft tissue gas within the heel, as described. This may represent penetration the above, but is worrisome for infection with a gas-forming organism Abnormal signal within the posterior and mid calcaneus, highly suspicious for acute osteomyelitis (8) Decubitus ulcer of heel (9) Diabetes mellitus out of control (10) Acute on chronic renal failure (11) NSTEMI (non-ST elevated myocardial infarction) (12) High anion gap metabolic acidosis (13) Choledocholithiasis Assessment & Plan: pending plt transfusion repeat labs in am needs EGD +/- peg PEG canceled given low PLT resume NGTF plan peg next week (14) DVT (deep venous thrombosis) Joseph Alamo May 13, 2020 14:34
--- NOTE | 2020-05-13 14:38 | Diagnostic Imaging Report ---
Indication: Abdominal pain Technique: Campbell-scale and duplex images of the upper abdomen were obtained Comparison: 05/08/2020 Findings: Unremarkable inferior vena cava. There is bilateral pleural fluid. Gallbladder demonstrates sludge. No definite gallstones. Gallbladder wall is thickened, measuring up to 3 mm thick, and there is pericholecystic edema. Patient unable to report sonographic Garcia's sign. Common bile duct measures 3 mm in diameter. No intrahepatic biliary ductal dilatation. Liver demonstrates normal echogenicity, no focal abnormality. Portal vein and hepatic veins are patent. There is trace ascites fluid. Pancreas is unremarkable. Spleen is unremarkable. Left kidney measures 11.4 cm in length. Right kidney measures 11.1 cm length. Both kidneys demonstrate slightly increased echogenicity. There is no hydronephrosis. No focal abnormality . Non-aneurysmal abdominal aorta . Impression: Ascites fluid Bilateral pleural effusions Negative for gallstones. Small amount of gallbladder sludge noted. Gallbladder wall thickening and pericholecystic edema is probably related to what ever process is causing the pleural fluid and ascites. Possibility of acute acalculous cholecystitis should also be considered, however. Echogenic kidneys, consistent with medical renal disease
--- NOTE | 2020-05-13 15:55 | NUR ---
CASE MANAGEMENT:REVIEW SI;RENAL FAILURE. UTI. DVT. S/P PEG PLACEMENT 05/12/20 98.3 96 21 154/75 95% ON RA WBC 18.9 PLT 57 BUN 37 CR 3.8 BG 211 CA 7.9 MAG 1.7 T-BILI 4.5 D-BILI 4.0 AST 445 ALT 147 ALP 1114 ALB 1.2 IS;K-DUR GT TUBE ONCE FLAGYL GT TUBE Q8 PROTONIX IV Q12 NaHCO3 GT TID INSULIN NOVOLOG SQ QD CEFEPIME IV QD DOXYCYCLINE IV Q12 MAG SULFATE IV ONCE PROTONIX IV Q12 MED SURG STATUS DCP; FROM [facility]
[2020-05-13] MEDS: Cefepime HCl 1 GM in D5W 55 ML IVPB SCH (18:01)
--- NOTE | 2020-05-13 18:13 | General Progress Note ---
Subjective Date patient seen: May 13, 2020 Allergies: Coded Allergies: PENICILLINS (Verified Allergy, Unknown, 12/05/17) Subjective Chart review since last seen. Patient with thrombocytopenia. Being transfused platelets per hematology. Also with rising LFTs. Appears to be obstructive pattern. No obvious abdominal pain although patient is encephalopathic at baseline and unable to provide further history. Unable to obtain ROS due to ALOC Objective Last 24 Hour Vital Signs Date Time Temp Pulse Resp B/P (MAP) Pulse Ox O2 Delivery O2 Flow Rate FiO2 05/13/20 16:00 97.6 86 20 149/79 (102) 97 05/13/20 12:00 97.3 96 18 151/60 (90) 97 05/13/20 10:20 97.0 73 151/75 (100) 05/13/20 09:35 97.8 78 152/75 (100) 05/13/20 09:00 Room Air 05/13/20 08:00 98.3 76 21 154/75 (101) 97 05/13/20 04:00 97.0 88 20 144/66 (92) 95 05/13/20 00:00 97.0 87 20 113/52 (72) 94 05/12/20 21:00 Room Air 05/12/20 20:00 97.0 89 20 122/70 (87) 95 Intake and Output 05/12/20 05/13/20 19:00 07:00 Intake Total 0 ml Output Total 100 ml Balance -100 ml Intake Oral 0 ml Output Urine Total 100 ml # Bowel Movements 1 Laboratory Tests 05/12/20 23:40: POC Whole Blood Glucose [Pending] 05/13/20 05:56: White Blood Count 18.9H, Red Blood Count 3.47L, Hemoglobin 10.7L, Hematocrit 32.8L, Mean Corpuscular Volume 94, Mean Corpuscular Hemoglobin 30.8, Mean Corpuscular Hemoglobin Concent 32.6, Red Cell Distribution Width 15.4H, Platelet Count 57#L, Mean Platelet Volume 10.4H, Neutrophils (%) (Auto) , Lymphocytes (%) (Auto) , Monocytes (%) (Auto) , Eosinophils (%) (Auto) , Basophils (%) (Auto) , Differential Total Cells Counted 100, Neutrophils % (Manual) 82H, Lymphocytes % (Manual) 8L, Monocytes % (Manual) 4, Eosinophils % (Manual) 0, Basophils % (Manual) 0, Band Neutrophils 6, Platelet Estimate DecreasedL, Platelet Morphology Normal, Anisocytosis 1+, Sodium Level 140, Potassium Level 3.5, Chloride Level 107, Carbon Dioxide Level 24, Anion Gap 9, Blood Urea Nitrogen 37H, Creatinine 3.8H, Estimat Glomerular Filtration Rate 14.3, Glucose Level 211#H, Calcium Level 7.9L, Phosphorus Level 2.7, Magnesium Level 1.7L, Total Bilirubin 4.5H, Direct Bilirubin 4.0H, Aspartate Amino Transf (AST/SGOT) 445H, Alanine Aminotransferase (ALT/SGPT) 147H, Alkaline Phosphatase 1114H, Total Protein 3.6L, Albumin 1.2L, Heparin-PF4 Antibody Screen [Pending] 05/13/20 06:18: POC Whole Blood Glucose [Pending] 05/13/20 12:46: POC Whole Blood Glucose 208H Height (Feet): 5 Height (Inches): 7.00 Weight (Pounds): 130 Objective General: WDWN female in NAD, A&O x 0 (baseline is A&o x 1), awake, alert HEENT: Normocephalic cephalic atraumatic, pupils equal round reactive to light and accommodation, nares patent and no symmetrical, no tonsillar exudates, mucous membranes moist CV: Regular rate regular rhythm, no murmurs, rubs, or gallops Pulm: Lungs clear to auscultation bilaterally. No wheezes, rhonchi, or rales GI: Soft, Mildly TTP in RUQ nondistended, bowel sounds present Neuro: CN 2-12 intact bilaterally, no focal signs. Ext: No lower extremity edema bilaterally. LUE 1-2+ edema Skin: no rashes lesions or ulcers Msk: Joints symmetrical in upper extremity and lower extremity bilaterally, no joint swelling. Lymph: No lymphadenopathy in upper extremity and lower extremity Assessment/Plan Assessment/Plan: This is a 69-year-old female presenting with acute encephalopathy, JYOTI, acute UTI; now ESRD on HD, Encephalopathic w/ Dysphagia and Chronic Osteo: #Acute Renal Failure now ESRD requiring HD s/p Doyle --> ATN? Normal Renal US -Appreciate Nephro; S/P Fluid Challenge -Will order Permcath Placement--> on hold 2/2 thrombocytopenia -Continue HD as scheduled; Midodrine prn Hypotension -Continue Sodium Bicarb Tabs #Metabolic Encephalopathy Exacerbated by Dementia #Dysphagia 2/2 Above -Appreciate Neuro, CTH WNL -Avoid Sedating Medications -Pending PEG tube placement per GI --> on hold 2/2 thrombocytopenia -Tube Feeding for now #Thrombocytopenia #Anemia of Chronic Dx -Appreciate Heme -Transfuse platelets to maintain above 15 to avoid ICH or above 50 if active bleeding -Transfuse for HGB less than 7 -HIT panel ordered #DMII - ISS, Add long acting prn - lantus 5 units daily #LLE Osteo-Appreciate ID #[email or web address] -Cultures noted; S/P Broad Spectrum AB -Current AB: Cefepime/Flagyl/Doxy until 05/24 #COVID positive - asymptomatic - CTM - ID consult if needed #Transaminitis --> Pending Abd US #elevated alk phos - GI consulted: Dr. Hay - f/u abdominal ultrasound -trend LFTs -avoid hepatotoxic medications #LUE DVT -venous duplex US reviewed -appreciate heme recommendations -off A/C due to anemia and thrombocytopenia -CTM FENPPX DVTPPX: HSQ (holding due to low platelets) Fluids: as above Diet: pending PEG Lines: PIV, LUE PICC PT/OT: pending Code status: Full per SNF Dispo: back to SNF Reason for Continued Hospitalization: jyoti MIPS ([employer]-based Incentive Payment System) Applicable CPT: 18533, 51529 CHECK ALL THAT ARE MET: [] Measure #5 (CHF): All ages. Prescribe DESTINEY/ARB upon discharge for patients with left ventricular systolic dysfunction. If not, the reason is clearly documented in the medical chart [] Measure #8 (CHF): All ages. Prescribe a beta jennifer upon discharge for patients with left ventricular systolic dysfunction. If not, the reason is clearly documented in the medical chart. [] Measure #47: Advance care plan or surrogate decision maker documented in the medical record. [x] Measure #130 The provider has documented, updated, or reviewed the patients current medication list and has documented it in the patients note. [x] Measure #374 (All): Send report to referring provider. [] Measure #407(Sepsis due to MSSA bacteremia): Age 18+ Patient treated with a beta-lactam antibiotic (Nafcillin, Oxacillin or Cefazolin) as definitive therapy. MEDICAL COMPLEXITYHigh complexity medical decision making (need 2/3 categories)Problem - need 4 points [x]Acute/new problem with new plan for workup (4 points, 1 max) [] Acute/new problem without additional workup (3 points, 1 max) [x] Unstable chronic problem actively being managed (2 point each, 2 max) [x] Stable chronic problem actively being managed (1 point each, 2 max) [x] Self-limited/transient process (constipation, muscle ache, etc) (1 point each, 2 max) Data - need 4 points [x] Reviewed labs/imaging studies (1 points, 2 max) [x] Independent review of imaging (EKG, xrays, etc) (2 points, 2 max) [x] Discussed case with consult/other MD/RN (2 points, 2 max) High Risk - qualify if have one of the following: [] Severe exacerbation of acute problem, acute mental status change, IV narcotics, monitoring drug levels (vancomycin, INR, tacrolimus etc) I spent 38 minutes on this patient's case, and 20 mins was dedicated to counseling and/or care coordination. Discussed with nephro, ID, gen surgery, neurology. I spent an additional 33 minutes reviewing medical records including prior hospitalization notes, clinic notes, consultation notes, prior labs, and prior imaging. Time of note may not reflect time of encounter Patrick Cerda D.O. May 13, 2020 18:13
--- NOTE | 2020-05-13 19:10 | NUR ---
NURSE HAND-OFF: Important Events on Shift: 1unit of platelet was given Patient Status: stable Diet: NPO Pending Orders: n/a Pending Results/Labs:n/a Pending MD notification:n/a Latest Vital Signs: Temperature 97.6 , Pulse 86 , B/P 149 /79 , Respiratory Rate 20 , O2 SAT 97 , Room Air, O2 Flow Rate 3.0 . Vital Sign Comment: stable Latest Hernandez Fall Score: 70 Fall Risk: High Risk Safety Measures: Call light Within Reach, Bed Alarm Zone 1, Side Rails Side Rails x3, Bed position Low and Locked. Fall Precautions: Yellow Socks Yellow Gown Door Sign Patient Fall Education Report given to ZACH Poe.
--- NOTE | 2020-05-13 19:25 | NUR ---
NURSE NOTES: Dr. Hay ordered KUB for NGT placement.
--- NOTE | 2020-05-13 19:30 | NUR ---
NURSE NOTES: Patient in bed, nonverbal. NG tube in place; patent. Tube feeding on hold at this time. Patient NPO. HD access located on right IJ. On bilateral soft wrist restraints; pulses palpable, skin intact. Vargas catheter draining to gravity. Bed locked and in lowest position. Bed alarm on. Call light within reach. Will continue to monitor.
--- NOTE | 2020-05-13 20:21 | Diagnostic Imaging Report ---
EXAM: XR Abdomen, 2 Views CLINICAL HISTORY: NGT TECHNIQUE: Frontal view of the abdomen/pelvis with upright view of the abdomen. COMPARISON: 05/09/2020. FINDINGS: Lower thorax: Small left pleural effusion. Intraperitoneal space: No free air. Gastrointestinal tract: Nonspecific bowel gas pattern. No dilation. Bones/joints: Osteopenia. Tubes, lines and devices: NG tube is noted in place with its tip and side-port below the diaphragm. IMPRESSION: NG tube is noted in place with its tip and side-port below the diaphragm.
--- NOTE | 2020-05-13 20:23 | Neurology Progress Note ---
Interim History Interim History ROS Limited/Unobtainable: No Interim History lethargic, sp plt transfusion Objective Physical Exam Last Vital Signs Date Time Temp Pulse Resp B/P (MAP) Pulse Ox O2 Delivery O2 Flow Rate FiO2 05/13/20 16:00 97.6 86 20 149/79 (102) 97 05/13/20 09:00 Room Air 05/05/20 16:12 3.0 99 Laboratory Tests Test 05/12/20 23:40 05/13/20 05:56 05/13/20 06:18 05/13/20 12:46 POC Whole Blood Glucose Pending Pending 208 MG/DL (74-106) H White Blood Count 18.9 K/UL (4.8-10.8) H Red Blood Count 3.47 M/UL (4.20-5.40) L Hemoglobin 10.7 G/DL (12.0-16.0) L Hematocrit 32.8 % (37.0-47.0) L Mean Corpuscular Volume 94 FL (80-99) Mean Corpuscular Hemoglobin 30.8 PG (27.0-31.0) Mean Corpuscular Hemoglobin Concent 32.6 G/DL (32.0-36.0) Red Cell Distribution Width 15.4 % (11.6-14.8) H Platelet Count 57 K/UL (150-450) #L Mean Platelet Volume 10.4 FL (6.5-10.1) H Neutrophils (%) (Auto) % (45.0-75.0) Lymphocytes (%) (Auto) % (20.0-45.0) Monocytes (%) (Auto) % (1.0-10.0) Eosinophils (%) (Auto) % (0.0-3.0) Basophils (%) (Auto) % (0.0-2.0) Differential Total Cells Counted 100 Neutrophils % (Manual) 82 % (45-75) H Lymphocytes % (Manual) 8 % (20-45) L Monocytes % (Manual) 4 % (1-10) Eosinophils % (Manual) 0 % (0-3) Basophils % (Manual) 0 % (0-2) Band Neutrophils 6 % (0-8) Platelet Estimate Decreased L Platelet Morphology Normal Anisocytosis 1+ Sodium Level 140 MMOL/L (136-145) Potassium Level 3.5 MMOL/L (3.5-5.1) Chloride Level 107 MMOL/L (98-107) Carbon Dioxide Level 24 MMOL/L (21-32) Anion Gap 9 mmol/L (5-15) Blood Urea Nitrogen 37 mg/dL (7-18) H Creatinine 3.8 MG/DL (0.55-1.30) H Estimat Glomerular Filtration Rate 14.3 mL/min (>60) Glucose Level 211 MG/DL (74-106) #H Calcium Level 7.9 MG/DL (8.5-10.1) L Phosphorus Level 2.7 MG/DL (2.5-4.9) Magnesium Level 1.7 MG/DL (1.8-2.4) L Total Bilirubin 4.5 MG/DL (0.2-1.0) H Direct Bilirubin 4.0 MG/DL (0.0-0.3) H Aspartate Amino Transf (AST/SGOT) 445 U/L (15-37) H Alanine Aminotransferase (ALT/SGPT) 147 U/L (12-78) H Alkaline Phosphatase 1114 U/L (46-116) H Total Protein 3.6 G/DL (6.4-8.2) L Albumin 1.2 G/DL (3.4-5.0) L Heparin-PF4 Antibody Screen Pending Impression/Recommendations Problems: (1) Sepsis (2) Hyperkalemia (3) Leukocytosis (4) Altered mental status (5) Diabetes mellitus out of control (6) Acute on chronic renal failure (7) NSTEMI (non-ST elevated myocardial infarction) (8) High anion gap metabolic acidosis (9) Sacral decubitus ulcer (10) Decubitus ulcer of heel (11) UTI (urinary tract infection) (12) JYOTI (acute kidney injury) Diagnostic Impression acute metabolic encephalopathy jyoti sepsis baseline dementia cont ivfs delirium precautions no need for mri brain cont atb Thee Lee MD May 13, 2020 20:23
--- NOTE | 2020-05-13 23:42 | NUR ---
TRANSFER TO FLOOR: Patient transferred to Telemetry for cardiac monitoring, per Dr. Cerda's order. Spoke with Dr. Floyd as well, who confirmed the order. Report given to ZACH Sosa. Belongings and medications given to RN. Left message for patient's sister, Elisha, informing her of the transfer.
[2020-05-14] VITALS: BP 140/79
--- NOTE | 2020-05-14 00:27 | NUR ---
NURSE NOTES: Pt received from ZACH Walters. Pt is resting comfortably in bed and grimaces with pain to movement in bed. Pt is A/Ox0 nonverbal and bedbound. Pt has cardiac monitoring SR and and asymptomatic. Pt is breathing unlabored on RA and asymptomatic. Pt has alaniz catheter with hematuria; MD aware. Pt has Right sided IJ patent with skin dry and intact. Bed is locked and in lowest position with call light within reach. Will continue to monitor.
[2020-05-14 04:00] VITALS: BP 122/67
[2020-05-14 05:58] LABS: HEMATOCRIT 30.8 % (37.0-47.0); HEMOGLOBIN 9.9 G/DL (12.0-16.0); MEAN CORPUSCULAR VOLUME 95 FL (80-99); PLATELET COUNT 54 K/UL (150-450); RED BLOOD COUNT 3.22 M/UL (4.20-5.40); RED CELL DISTRIBUTION WIDTH 14.8 % (11.6-14.8)
[2020-05-14] MEDS: NovoLOG Insulin Flexpen SUBQ SCH ×4 (06:00→18:55)
[2020-05-14 06:06] LABS: INR 1.3 (0.9-1.1)
[2020-05-14 06:22] LABS: WHITE BLOOD COUNT 30.5 K/UL (4.8-10.8)
--- NOTE | 2020-05-14 06:25 | Hematology/Onc Progress Note ---
Assessment/Plan Assessment/Plan Assessment and Recs # Left upper extremity axillary, subclavian, and brachial venous thrombosis --> heparin gtt was started-->now changed to lovenox as supertherapeutic->now HELD due to severe anemia --> consider eliquis or coumadin once closer to dc --> patient does have eleno/ckd, thus agent needed not affected by renal function --> monitor for bleed # Thrombocytopenia likely secondary to left heel and foot osteomyelitis/ infection/dic --> likely due to infected wounds, heel ulcerations --> ABX flucon/flagyl/cefepime-->doxy/cefepime --> Peripheral smear, reviewed, hold off flow for now --> elev inflammatory markers --> WBC 35-->22-->18-->14-->13-->11.4->>>13-->17-->31 --> plt 55-->23-->26-->22-->54 --> 2 units plt 05/13 # Anemia due to underlying chronic disease. --> Continue to closely monitor for improvement. --> Anemia w/u has been reviewed. Will trend cbc daily. --> Hgb goal >7 -> hgb 12-->10.7->9.4-->9.5->10-->7.3-->5.7-->6.2-->8-->6.4-->10 --> 2 units 05/07 --> anemia panel reviewed before # Hyperkalemia. Given Kayexalate. --> Improved # Diabetic ketoacidosis. --> per before, improved # ESRD --> hd with line inserted # Shortness of breath in past with dka # Dvt ppx --> scds The time the note was entered does not necessarily correspond to the time the patient was seen. Subjective HEENT: Denies: no symptoms, eye pain, blurred vision, tearing, double vision, ear pain, ear discharge, nose pain, nose congestion, throat pain, throat swelling, mouth pain, mouth swelling, other Cardiovascular: Denies: no symptoms, chest pain, edema, irregular heart rate, lightheadedness, palpitations, syncope, other Gastrointestinal/Abdominal: Denies: no symptoms, abdomen distended, abdominal pain, black stools, tarry stools, blood in stool, constipated, diarrhea, difficulty swallowing, nausea, poor appetite, poor fluid intake, rectal bleeding, vomiting, other Genitourinary: Denies: no symptoms, burning, discharge, frequency, flank pain, hematuria, incontinence, pain, urgency, other Neurologic/Psychiatric: Denies: no symptoms, anxiety, depressed, emotional problems, headache, numbness, paresthesia, pre-existing deficit, seizure, tingling, tremors, weakness, other Endocrine: Denies: no symptoms, excessive sweating, flushing, intolerance to cold, intolerance to heat, increased hunger, increased thirst, increased urine, unexplained weight gain, unexplained weight loss, other Hematologic/Lymphatic: Denies: no symptoms, anemia, easy bleeding, easy bruising, adenopathy, other Allergies: Coded Allergies: PENICILLINS (Verified Allergy, Unknown, 12/05/17) Subjective 05/05 hgb 7.3 this am, plts lower, no bleeding, ptt elev, will hold off hep gtt 05/06 labs noted, no bleeding, now on lovenox sq, sis somnolent in am 05/07 is on lovenox sq, is s/p transfusion, labs noted, on abx 05/09 anticoag is held, pending for cbc today, labs noted 05/10 anticoag held, for platelets to goal >50k, with coffee ground emesis 05/11 hd was given last night, bp was low and albumin administered, bp better 05/12 nv, labs reviewed, aphasic, plt 26 yesterday, meds reviewed, to get cbc today 05/13 2nd bag of platelets is pending, jessie Rn, plt recently 22k 05/14 plt improved to 54k, hit panel pending, is on abx Objective Objective Current Medications Medications (Trade) Dose Ordered Sig/Enrike Route PRN Reason Start Time Stop Time Status Last Admin Dose Admin Bisacodyl (Dulcolax) 10 mg DAILYPRN PRN RECTAL Constipation 05/01/20 20:30 07/30/20 20:29 Cefepime HCl 1 gm/ Dextrose 55 ml @ 110 mls/hr Q24H IVPB 05/11/20 18:00 05/24/20 23:59 05/13/20 18:01 Chlorhexidine Gluconate (Holli-Hex 2%) 1 applic DAILY@2000 TOPIC 05/02/20 20:00 07/31/20 19:59 05/11/20 19:46 Dextrose (Dextrose 50%) 25 ml Q30M PRN IV Hypoglycemia 05/01/20 20:30 07/30/20 20:29 Dextrose (Dextrose 50%) 50 ml Q30M PRN IV Hypoglycemia 05/01/20 20:30 07/30/20 20:29 Doxycycline Hyclate 100 mg/ Dextrose 110 ml @ 110 mls/hr Q12HR IV 05/08/20 21:00 05/24/20 23:59 05/13/20 20:28 Insulin Aspart (NovoLOG) Q6HR SUBQ 05/03/20 00:00 08/01/20 00:00 05/13/20 18:19 Insulin Detemir (Levemir) 5 units DAILY SUBQ 05/13/20 10:00 08/11/20 09:59 05/13/20 10:19 Metronidazole 100 ml @ 100 mls/hr Q12H IVPB 05/14/20 06:00 05/19/20 23:59 05/14/20 06:18 Ondansetron HCl (Zofran) 4 mg Q6H PRN IVP Nausea & Vomiting 05/01/20 20:30 05/31/20 20:29 Pantoprazole (Protonix) 40 mg EVERY 12 HOURS IVP 05/12/20 16:15 06/11/20 16:14 05/13/20 20:28 Sodium Hypochlorite (Dakin's Quarter Strength) 1 applic DAILY TOPIC 05/05/20 09:00 06/04/20 08:59 05/13/20 10:20 Sodium Bicarbonate (NaHCO3) 650 mg THREE TIMES A DAY ORAL 05/02/20 18:00 06/01/20 17:59 05/13/20 18:01 Last 24 Hour Vital Signs Date Time Temp Pulse Resp B/P (MAP) Pulse Ox O2 Delivery O2 Flow Rate FiO2 05/14/20 04:00 98.3 70 16 122/67 (85) 95 05/14/20 00:00 96.9 76 20 140/79 (99) 94 05/13/20 21:00 Room Air 05/13/20 20:00 97.8 76 20 154/85 (108) 92 05/13/20 16:00 97.6 86 20 149/79 (102) 97 05/13/20 12:00 97.3 96 18 151/60 (90) 97 05/13/20 10:20 97.0 73 151/75 (100) 05/13/20 09:35 97.8 78 152/75 (100) 05/13/20 09:00 Room Air 05/13/20 08:00 98.3 76 21 154/75 (101) 97 05/13/20 04:00 97.0 88 20 144/66 (92) 95 05/13/20 00:00 97.0 87 20 113/52 (72) 94 05/12/20 21:00 Room Air 05/12/20 20:00 97.0 89 20 122/70 (87) 95 05/12/20 16:00 97.1 86 17 130/69 (89) 95 05/12/20 12:00 97.0 66 17 130/75 (93) 97 05/12/20 09:00 Room Air 05/12/20 08:00 97.1 63 20 119/76 (90) 99 Intake and Output 05/13/20 05/14/20 19:00 07:00 Intake Total 110 ml Output Total 120 ml Balance -10 ml IV Total 110 ml Output Urine Total 120 ml # Bowel Movements 1 Labs Test 05/11/20 08:00 05/11/20 12:37 05/11/20 18:42 05/11/20 23:29 White Blood Count 12.7 K/UL (4.8-10.8) Red Blood Count 3.41 M/UL (4.20-5.40) Hemoglobin 10.5 G/DL (12.0-16.0) Hematocrit 29.4 % (37.0-47.0) Mean Corpuscular Volume 86 FL (80-99) Mean Corpuscular Hemoglobin 30.8 PG (27.0-31.0) Mean Corpuscular Hemoglobin Concent 35.8 G/DL (32.0-36.0) Red Cell Distribution Width 14.7 % (11.6-14.8) Platelet Count 26 K/UL (150-450) Mean Platelet Volume 13.5 FL (6.5-10.1) Neutrophils (%) (Auto) % (45.0-75.0) Lymphocytes (%) (Auto) % (20.0-45.0) Monocytes (%) (Auto) % (1.0-10.0) Eosinophils (%) (Auto) % (0.0-3.0) Basophils (%) (Auto) % (0.0-2.0) Differential Total Cells Counted 100 Neutrophils % (Manual) 80 % (45-75) Lymphocytes % (Manual) 11 % (20-45) Monocytes % (Manual) 9 % (1-10) Eosinophils % (Manual) 0 % (0-3) Basophils % (Manual) 0 % (0-2) Band Neutrophils 0 % (0-8) Platelet Estimate Decreased Platelet Morphology Normal Hypochromasia 1+ Anisocytosis 1+ Sodium Level 141 MMOL/L (136-145) Potassium Level 3.0 MMOL/L (3.5-5.1) Chloride Level 108 MMOL/L (98-107) Carbon Dioxide Level 20 MMOL/L (21-32) Anion Gap 13 mmol/L (5-15) Blood Urea Nitrogen 46 mg/dL (7-18) Creatinine 4.7 MG/DL (0.55-1.30) Estimat Glomerular Filtration Rate 11.2 mL/min (>60) Glucose Level 266 MG/DL (74-106) Calcium Level 7.8 MG/DL (8.5-10.1) POC Whole Blood Glucose 242 MG/DL (74-106) 279 MG/DL (74-106) Test 05/12/20 04:55 05/12/20 05:00 05/12/20 11:35 05/12/20 12:40 POC Whole Blood Glucose 299 MG/DL (74-106) White Blood Count 13.0 K/UL (4.8-10.8) Red Blood Count 3.15 M/UL (4.20-5.40) Hemoglobin 10.0 G/DL (12.0-16.0) Hematocrit 28.8 % (37.0-47.0) Mean Corpuscular Volume 91 FL (80-99) Mean Corpuscular Hemoglobin 31.7 PG (27.0-31.0) Mean Corpuscular Hemoglobin Concent 34.8 G/DL (32.0-36.0) Red Cell Distribution Width 15.3 % (11.6-14.8) Platelet Count 22 K/UL (150-450) Mean Platelet Volume 15.6 FL (6.5-10.1) Neutrophils (%) (Auto) % (45.0-75.0) Lymphocytes (%) (Auto) % (20.0-45.0) Monocytes (%) (Auto) % (1.0-10.0) Eosinophils (%) (Auto) % (0.0-3.0) Basophils (%) (Auto) % (0.0-2.0) Differential Total Cells Counted 100 Neutrophils % (Manual) 91 % (45-75) Lymphocytes % (Manual) 5 % (20-45) Monocytes % (Manual) 4 % (1-10) Eosinophils % (Manual) 0 % (0-3) Basophils % (Manual) 0 % (0-2) Band Neutrophils 0 % (0-8) Nucleated Red Blood Cells 2 /100 WBC Platelet Estimate Decreased Platelet Morphology Normal Hypochromasia 1+ Anisocytosis 1+ Sodium Level 142 MMOL/L (136-145) Potassium Level 3.5 MMOL/L (3.5-5.1) Chloride Level 107 MMOL/L (98-107) Carbon Dioxide Level 17 MMOL/L (21-32) Anion Gap 18 mmol/L (5-15) Blood Urea Nitrogen 53 mg/dL (7-18) Creatinine 5.1 MG/DL (0.55-1.30) Estimat Glomerular Filtration Rate 10.2 mL/min (>60) Glucose Level 360 MG/DL (74-106) Calcium Level 7.4 MG/DL (8.5-10.1) Phosphorus Level 3.4 MG/DL (2.5-4.9) Magnesium Level 1.6 MG/DL (1.8-2.4) Total Bilirubin 3.1 MG/DL (0.2-1.0) Direct Bilirubin 2.6 MG/DL (0.0-0.3) Aspartate Amino Transf (AST/SGOT) 369 U/L (15-37) Alanine Aminotransferase (ALT/SGPT) 146 U/L (12-78) Alkaline Phosphatase 795 U/L (46-116) Total Protein 3.3 G/DL (6.4-8.2) Albumin 1.1 G/DL (3.4-5.0) Globulin 2.2 g/dL Albumin/Globulin Ratio 0.5 (1.0-2.7) Test 05/12/20 17:34 05/12/20 23:40 05/13/20 05:56 05/13/20 06:18 White Blood Count 18.9 K/UL (4.8-10.8) Red Blood Count 3.47 M/UL (4.20-5.40) Hemoglobin 10.7 G/DL (12.0-16.0) Hematocrit 32.8 % (37.0-47.0) Mean Corpuscular Volume 94 FL (80-99) Mean Corpuscular Hemoglobin 30.8 PG (27.0-31.0) Mean Corpuscular Hemoglobin Concent 32.6 G/DL (32.0-36.0) Red Cell Distribution Width 15.4 % (11.6-14.8) Platelet Count 57 K/UL (150-450) Mean Platelet Volume 10.4 FL (6.5-10.1) Neutrophils (%) (Auto) % (45.0-75.0) Lymphocytes (%) (Auto) % (20.0-45.0) Monocytes (%) (Auto) % (1.0-10.0) Eosinophils (%) (Auto) % (0.0-3.0) Basophils (%) (Auto) % (0.0-2.0) Differential Total Cells Counted 100 Neutrophils % (Manual) 82 % (45-75) Lymphocytes % (Manual) 8 % (20-45) Monocytes % (Manual) 4 % (1-10) Eosinophils % (Manual) 0 % (0-3) Basophils % (Manual) 0 % (0-2) Band Neutrophils 6 % (0-8) Platelet Estimate Decreased Platelet Morphology Normal Anisocytosis 1+ Sodium Level 140 MMOL/L (136-145) Potassium Level 3.5 MMOL/L (3.5-5.1) Chloride Level 107 MMOL/L (98-107) Carbon Dioxide Level 24 MMOL/L (21-32) Anion Gap 9 mmol/L (5-15) Blood Urea Nitrogen 37 mg/dL (7-18) Creatinine 3.8 MG/DL (0.55-1.30) Estimat Glomerular Filtration Rate 14.3 mL/min (>60) Glucose Level 211 MG/DL (74-106) Calcium Level 7.9 MG/DL (8.5-10.1) Phosphorus Level 2.7 MG/DL (2.5-4.9) Magnesium Level 1.7 MG/DL (1.8-2.4) Total Bilirubin 4.5 MG/DL (0.2-1.0) Direct Bilirubin 4.0 MG/DL (0.0-0.3) Aspartate Amino Transf (AST/SGOT) 445 U/L (15-37) Alanine Aminotransferase (ALT/SGPT) 147 U/L (12-78) Alkaline Phosphatase 1114 U/L (46-116) Total Protein 3.6 G/DL (6.4-8.2) Albumin 1.2 G/DL (3.4-5.0) Test 05/13/20 12:46 05/14/20 04:50 POC Whole Blood Glucose 208 MG/DL (74-106) White Blood Count 30.5 K/UL (4.8-10.8) Red Blood Count 3.22 M/UL (4.20-5.40) Hemoglobin 9.9 G/DL (12.0-16.0) Hematocrit 30.8 % (37.0-47.0) Mean Corpuscular Volume 95 FL (80-99) Mean Corpuscular Hemoglobin 30.8 PG (27.0-31.0) Mean Corpuscular Hemoglobin Concent 32.2 G/DL (32.0-36.0) Red Cell Distribution Width 14.8 % (11.6-14.8) Platelet Count 54 K/UL (150-450) Mean Platelet Volume 8.5 FL (6.5-10.1) Neutrophils (%) (Auto) % (45.0-75.0) Lymphocytes (%) (Auto) % (20.0-45.0) Monocytes (%) (Auto) % (1.0-10.0) Eosinophils (%) (Auto) % (0.0-3.0) Basophils (%) (Auto) % (0.0-2.0) Height (Feet): 5 Height (Inches): 7.00 Weight (Pounds): 130 Objective Physical Exam Vitals: reviewed, normal General Appearance: no apparent distress, non-toxic, lethargic HEENT: bilateral eye normal inspection, bilateral eye PERRL Neck: full range of motion, supple/symm/no masses Resp: chest non-tender, lungs clear, normal breath sounds, speaking full sen tences Cardiovascular: regular rate, rhythm, no edema Gastrointestinal: normal bowel sounds, non tender Rectal: deferred Genitourinary: normal inspection, no CVA tenderness Musculoskeletal: back normal, gait/station normal, non-tender Lymphatic: no adenopathy David De Jesus MD May 14, 2020 06:25
[2020-05-14 06:42] LABS: ALBUMIN 1.1 G/DL (3.4-5.0); ALBUMIN/GLOBULIN RATIO 0.4 (1.0-2.7); BILIRUBIN,TOTAL 4.8 MG/DL (0.2-1.0); CALCIUM 7.6 MG/DL (8.5-10.1); CREATININE 4.1 MG/DL (0.55-1.30)
[2020-05-14 08:00] VITALS: BP 160/74
[2020-05-14 08:34] LABS: BILIRUBIN,DIRECT 4.7 MG/DL (0.0-0.3)
[2020-05-14] MEDS: Levemir Flexpen SUBQ SCH (09:00)
[2020-05-14 09:03] LABS: PHOSPHORUS 2.7 MG/DL (2.5-4.9)
[2020-05-14] MEDS: Doxycycline Hyclate 100 MG in D5W 110 ML IV SCH ×2 (09:45→21:50)
[2020-05-14] MEDS: Pantoprazole Inj IVP SCH ×2 (09:45→21:08)
[2020-05-14] MEDS: Sodium Bicarbonate 650mg Tab ORAL SCH (09:46)
[2020-05-14] MEDS: Dakin's 0.125% Soln (Quarter Strength) 16oz TOPIC SCH (09:59)
--- NOTE | 2020-05-14 10:52 | NUR ---
NURSE NOTES: Left a voicemail with the [facility] regarding potassium 3.0, WBC 30.5. Awaiting callback.
--- NOTE | 2020-05-14 10:58 | NUR ---
NURSE NOTES: Left a voicemail for [facility] regarding the hepatobiliary scan ordered. Awaiting callback.
--- NOTE | 2020-05-14 11:02 | NUR ---
NURSE NOTES: Notified Dr. Waterman regarding potassium 3.0. Dr. Waterman gave the order of 40mEq potassium PO. Noted and will carry out.
--- NOTE | 2020-05-14 11:17 | Nephrology Progress Note ---
Assessment/Plan Plan #JYOTI - concerns for vancomycin nephrotoxicity- r/o ATN- baseline Cr 0.8- also with volume depletion # osteomyelitis of LLE- on vanco, cefepime and flagyl #AMS #diabetes # hypertension, #hyperlipidemia # dementia. - HD today - DC midodrine 5 TID - PEG postponed - plt transfusion per hematology - monitor hemoglobin - renal US with no acute findings - anibiotics per ID- - avoid vanco for now - monitor renal output - add epo 4k TIW time spent 45 min Subjective ROS Limited/Unobtainable: Yes Subjective PEG cancelled due o thrombocytopenia WBC rising LFTs rising R IJ in plan for HD today Objective Objective Last 24 Hour Vital Signs Date Time Temp Pulse Resp B/P (MAP) Pulse Ox O2 Delivery O2 Flow Rate FiO2 05/14/20 08:00 98.1 75 30 160/74 (102) 97 05/14/20 08:00 76 05/14/20 04:00 98.3 70 16 122/67 (85) 95 05/14/20 00:00 96.9 76 20 140/79 (99) 94 05/13/20 21:00 Room Air 05/13/20 20:00 97.8 76 20 154/85 (108) 92 05/13/20 16:00 97.6 86 20 149/79 (102) 97 05/13/20 12:00 97.3 96 18 151/60 (90) 97 Intake and Output 05/13/20 05/14/20 19:00 07:00 Intake Total 110 ml Output Total 120 ml 120 ml Balance -10 ml -120 ml IV Total 110 ml Output Urine Total 120 ml 120 ml # Bowel Movements 1 Laboratory Tests 05/13/20 12:46: POC Whole Blood Glucose 208H 05/14/20 04:50: White Blood Count 30.5#*H, Red Blood Count 3.22L, Hemoglobin 9.9L, Hematocrit 30.8L, Mean Corpuscular Volume 95, Mean Corpuscular Hemoglobin 30.8, Mean Corpuscular Hemoglobin Concent 32.2, Red Cell Distribution Width 14.8, Platelet Count 54L, Mean Platelet Volume 8.5, Neutrophils (%) (Auto) , Lymphocytes (%) (Auto) , Monocytes (%) (Auto) , Eosinophils (%) (Auto) , Basophils (%) (Auto) , Differential Total Cells Counted 100, Neutrophils % (Manual) 86H, Lymphocytes % (Manual) 6L, Monocytes % (Manual) 2, Eosinophils % (Manual) 0, Basophils % (Manual) 0, Band Neutrophils 6, Platelet Estimate DecreasedL, Platelet Morphology Normal, Hypochromasia 1+, Anisocytosis 1+, Prothrombin Time 13.6H, Prothromb Time International Ratio 1.3H, Activated Partial Thromboplast Time 50H , Sodium Level 142, Potassium Level 3.0L, Chloride Level 106, Carbon Dioxide Level 25, Anion Gap 11, Blood Urea Nitrogen 39H, Creatinine 4.1H, Estimat Glomerular Filtration Rate 13.1, Glucose Level 131H, Lactic Acid Level 1.90, Calcium Level 7.6L, Phosphorus Level 2.7, Magnesium Level 2.1, Total Bilirubin 4.8H, Direct Bilirubin 4.7H, Aspartate Amino Transf (AST/SGOT) 407H, Alanine Aminotransferase (ALT/SGPT) 130H, Alkaline Phosphatase 1210H, Total Protein 4.1L , Albumin 1.1L, Globulin 3.0, Albumin/Globulin Ratio 0.4L, Amylase Level 47, Lipase 504H 05/14/20 10:02: POC Whole Blood Glucose 142H Height (Feet): 5 Height (Inches): 7.00 Weight (Pounds): 130 Objective General Appearance: no apparent distress EENT: PERRL/EOMI, normal ENT inspection Neck: non-tender, normal alignment Cardiovascular: normal peripheral pulses, normal rate, regular rhythm Respiratory/Chest: chest wall non-tender, lungs clear, normal breath sounds Abdomen: normal bowel sounds, non tender Niko Waterman M.D. May 14, 2020 11:17
--- NOTE | 2020-05-14 11:38 | NUR ---
CASE MANAGEMENT: REVIEW 05/14/2020 SI:SEPSIS. VS: 98.1 HR 76 RR 30 B/P 160/74 SATS 97% ON RA LABS: WBC 30.5 K 3 BUN 39 CR 4.1 GLU 131 CA 7.6 TBILI 4.8 DBILI 4.7 AST 407 ALT 130 ALP 1210 IS:PROTONIX IV Q12H LEVEMIR SUBQ QD K DUR PO X1 FLAGYL IV Q12H DOXYCYCLINE IV Q12H CEFEPIME IV Q24H INSULIN ASPART SUBQ Q6H TELE PLAN OF CARE: plan for HD today
--- NOTE | 2020-05-14 11:38 | NUR ---
NURSE NOTES: Called [facility] for hemodialysis scheduled for today, Young will call back.
[2020-05-14 12:00] VITALS: BP 142/75
--- NOTE | 2020-05-14 12:46 | NUR ---
NURSE NOTES: Dr. Alamo made aware personally about hematuria, dark red; no new orders from Dr. Alamo at this time. Left a message for Dr. Veras with [facility] regarding hematuria and accelerated junctional rhythm. Awaiting callback.
--- NOTE | 2020-05-14 13:05 | Surgery Progress Note ---
Surgery Progress Note Subjective Additional Comments US noted worsening leukocytosis t bili elevated plt low blood noted in stool and urine Objective Last 24 Hour Vital Signs Date Time Temp Pulse Resp B/P (MAP) Pulse Ox O2 Delivery O2 Flow Rate FiO2 05/14/20 12:00 98.2 76 22 142/75 (97) 95 05/14/20 09:00 Room Air 05/14/20 08:00 98.1 75 30 160/74 (102) 97 05/14/20 08:00 76 05/14/20 04:00 98.3 70 16 122/67 (85) 95 05/14/20 00:00 96.9 76 20 140/79 (99) 94 05/13/20 21:00 Room Air 05/13/20 20:00 97.8 76 20 154/85 (108) 92 05/13/20 16:00 97.6 86 20 149/79 (102) 97 I&O Intake and Output 05/13/20 05/14/20 19:00 07:00 Intake Total 110 ml Output Total 120 ml 120 ml Balance -10 ml -120 ml IV Total 110 ml Output Urine Total 120 ml 120 ml # Bowel Movements 1 Cardiovascular: RSR Respiratory: decreased breath sounds Abdomen: soft, distended, non-tender, decreased bowel sounds Extremities: edema, no tenderness, no cyanosis Laboratory Tests Test 05/14/20 04:50 05/14/20 10:02 White Blood Count 30.5 K/UL (4.8-10.8) #*H Red Blood Count 3.22 M/UL (4.20-5.40) L Hemoglobin 9.9 G/DL (12.0-16.0) L Hematocrit 30.8 % (37.0-47.0) L Mean Corpuscular Volume 95 FL (80-99) Mean Corpuscular Hemoglobin 30.8 PG (27.0-31.0) Mean Corpuscular Hemoglobin Concent 32.2 G/DL (32.0-36.0) Red Cell Distribution Width 14.8 % (11.6-14.8) Platelet Count 54 K/UL (150-450) L Mean Platelet Volume 8.5 FL (6.5-10.1) Neutrophils (%) (Auto) % (45.0-75.0) Lymphocytes (%) (Auto) % (20.0-45.0) Monocytes (%) (Auto) % (1.0-10.0) Eosinophils (%) (Auto) % (0.0-3.0) Basophils (%) (Auto) % (0.0-2.0) Differential Total Cells Counted 100 Neutrophils % (Manual) 86 % (45-75) H Lymphocytes % (Manual) 6 % (20-45) L Monocytes % (Manual) 2 % (1-10) Eosinophils % (Manual) 0 % (0-3) Basophils % (Manual) 0 % (0-2) Band Neutrophils 6 % (0-8) Platelet Estimate Decreased L Platelet Morphology Normal Hypochromasia 1+ Anisocytosis 1+ Prothrombin Time 13.6 SEC (9.30-11.50) H Prothromb Time International Ratio 1.3 (0.9-1.1) H Activated Partial Thromboplast Time 50 SEC (23-33) H Sodium Level 142 MMOL/L (136-145) Potassium Level 3.0 MMOL/L (3.5-5.1) L Chloride Level 106 MMOL/L (98-107) Carbon Dioxide Level 25 MMOL/L (21-32) Anion Gap 11 mmol/L (5-15) Blood Urea Nitrogen 39 mg/dL (7-18) H Creatinine 4.1 MG/DL (0.55-1.30) H Estimat Glomerular Filtration Rate 13.1 mL/min (>60) Glucose Level 131 MG/DL (74-106) H Lactic Acid Level 1.90 mmol/L (0.4-2.0) Calcium Level 7.6 MG/DL (8.5-10.1) L Phosphorus Level 2.7 MG/DL (2.5-4.9) Magnesium Level 2.1 MG/DL (1.8-2.4) Total Bilirubin 4.8 MG/DL (0.2-1.0) H Direct Bilirubin 4.7 MG/DL (0.0-0.3) H Aspartate Amino Transf (AST/SGOT) 407 U/L (15-37) H Alanine Aminotransferase (ALT/SGPT) 130 U/L (12-78) H Alkaline Phosphatase 1210 U/L (46-116) H Total Protein 4.1 G/DL (6.4-8.2) L Albumin 1.1 G/DL (3.4-5.0) L Globulin 3.0 g/dL Albumin/Globulin Ratio 0.4 (1.0-2.7) L Amylase Level 47 U/L (25-115) Lipase 504 U/L (73-393) H POC Whole Blood Glucose 142 MG/DL (74-106) H Plan Problems: (1) UTI (urinary tract infection) (2) JYOTI (acute kidney injury) (3) Hyperkalemia (4) Leukocytosis Assessment & Plan: dvt upper extremity picc related remove picc once temp line in anticoag as per heme worsening leukocytosis on abx (5) Sepsis (6) Altered mental status (7) Sacral decubitus ulcer Assessment & Plan: 69-year-old female multiple comorbidities presented with failure to thrive lethargic altered mental status noted to have abnormal labs and have draining bilateral heel unstageable decubitus ulcers multiple skin lesions on the lower extremities as well as a sacral decubitus ulcer as well. Imaging reviewed. Patient has been eating less recently but currently is eating at the bedside though does not look like she is taking much in. Treatment plan Turn every 2 hours Offload pressure with pillows pillow on side as necessary as well as underneath calf to elevate heels Air soft mattress nutritional optimization continue IV antibiotics per infectious disease SACRUM- STAGE - UNSTAGEABLE PRESSURE ULCER MEASURES 6.0X13.0X0.2. WOUND BED WITH 80% SLOUGH AND 20% PINK GRANULATION TISSUE. NOTED FOUL ODOR RECOMMEND-CLEAN WITH SALINE. APPLY WET TO DRY DRESSINGS WITH DAKINS 0.25% DAKIN'S SOLUTION.COVER WITH OPTIFOAM DRESSING. REPLACE DRESSING DAILY. LEFT ISCHIUM-STAGE II PRESSURE ULCER MEASURES 4.5X0.5X0.2CM. PINK GRANULATION TISSUE NOTED. RECOMMEND- CLEAN WITH SALINE, PAT DRY. APPLY CALAZINE AND COVER WITH OPTIFOAM DRESSING. LEFT ANTERIOR LOW LEG-VENOUS ULCER MEASURES 8.0X2.6X0.2CM 100% YELLOW SLOUGH NOTED TO WOUND BED. RECOMMEND- CLEAN WITH SALINE, PA DRY. APPLY THERAHONEY. COVER WITH GAUZE AND SECURE WITH KERLIX. REPLACE DRESSING DAILY. LEFT HEEL- UNSTAGEABLE PRESSURE ULCER MEASURES 9.5X8.0X0.3CM. 100% MOIST BLACK ESCHAR. WITH STRONG FOUL ODOR. RECOMMEND- CLEAN WITH SALINE. APPLY WET TO DRY DRESSINGS WITH DAKINS 0.25% DAKIN'S SOLUTION. COVER WITH GAUZE, ABD PAD AND SECURE WITH KERLIX. REPLACE DAILY. RIGHT ANTERIOR LOW LEG-VENOUS ULCER MEASURES 2.5X3.0X0.2CM WITH PINK GRANULATION TISSUE. RIGHT ANTERIOR DISTAL LOW LEG -VENOUS ULCER MEASURES 1.5X0.2X0.1CM WITH PINK GRANULATION TISSUE. RECOMMEND-CLEAN WITH SALINE PAT DRY. APPLY XEROFORM GAUZE, GAUZE AND COVER WITH KERLIX. REPLACE DAILY RIGHT HEEL-DTI MEASURES 2.5X3.0CM. AREA DARK PURPLE IN COLOR AND BOGGY TO TOUCH. NO DRAINAGE NOTED. RECOMMEND- PAINT WITH CAVILON SKIN PROTECTOR, GAUZE AND WRAP WITH KERLIX. REPLACE DAILY. We will follow with recommendations thank you for letting participate patient's care Fairly numerous bubbles of soft tissue gas are seen within the subcutaneous fat and possibly the intrinsic musculature of the plantar surface of the heel. There is high STIR and decreased T1 signal within the calcaneus, and there is indistinctness of the inferior and posterior cortical margins of the calcaneus. There is some soft tissue ulceration of the plantar surface of the heel, as well as marked thinning of the subcutaneous fat overlying the calcaneal tuberosity. There is considerable edema of the plantar surface subcutaneous fat. There is also edema of the subcutaneous fat of the lateral and medial ankle. No focal discrete fluid collection to suggest drainable abscess demonstrated. Impression: Evidence of ulceration overlying the calcaneal tuberosity Soft tissue gas within the heel, as described. This may represent penetration the above, but is worrisome for infection with a gas-forming organism Abnormal signal within the posterior and mid calcaneus, highly suspicious for acute osteomyelitis (8) Decubitus ulcer of heel (9) Diabetes mellitus out of control (10) Acute on chronic renal failure (11) NSTEMI (non-ST elevated myocardial infarction) (12) High anion gap metabolic acidosis (13) Choledocholithiasis Assessment & Plan: pending plt transfusion repeat labs in am needs EGD +/- peg PEG canceled given low PLT resume NGTF plan peg next week Unremarkable inferior vena cava. There is bilateral pleural fluid. Gallbladder demonstrates sludge. No definite gallstones. Gallbladder wall is thickened, measuring up to 3 mm thick, and there is pericholecystic edema. Patient unable to report sonographic Garcia's sign. Common bile duct measures 3 mm in diameter. No intrahepatic biliary ductal dilatation. Liver demonstrates normal echogenicity, no focal abnormality. Portal vein and hepatic veins are patent. There is trace ascites fluid. Pancreas is unremarkable. Spleen is unremarkable. Left kidney measures 11.4 cm in length. Right kidney measures 11.1 cm length. Both kidneys demonstrate slightly increased echogenicity. There is no hydronephrosis. No focal abnormality . Non-aneurysmal abdominal aorta . Impression: Ascites fluid Bilateral pleural effusions Negative for gallstones. Small amount of gallbladder sludge noted. Gallbladder wall thickening and pericholecystic edema is probably related to what ever process is causing the pleural fluid and ascites. Possibility of acute acalculous cholecy stitis should also be considered, however. Echogenic kidneys, consistent with medical renal disease worsening overall unfortunately declining severe possible jeremy acalculous. but possible related to liver insufficiency high risk for bleeding and procedure recommend comfort measures (14) DVT (deep venous thrombosis) Joseph Alamo May 14, 2020 13:05
--- NOTE | 2020-05-14 14:45 | NUR ---
NURSE NOTES: Patient taken by transport for NM hepatobiliary scan.
--- NOTE | 2020-05-14 15:00 | NUR ---
NURSE NOTES: Notified bloodbank and bloodbank made aware of platelet transfusion order.
--- NOTE | 2020-05-14 15:20 | NUR ---
cancel hd today,do tmw by dr rollins because she went procedure
[2020-05-14 16:00] VITALS: BP 148/78
--- NOTE | 2020-05-14 17:44 | NUR ---
NURSE NOTES: Dialysis NurseJamie stated that patient will be dialyzed tomorrow instead of today. Dr. Shaw was made aware. Addendum: 05/14/20 at 1836 by Alejandro Villafuerte RN The patient was back from [facility] hepatobiliary scan and ZACH Ayala was notified.
[2020-05-14] MEDS: Cefepime HCl 1 GM in D5W 55 ML IVPB SCH (17:59)
--- NOTE | 2020-05-14 18:02 | Diagnostic Imaging Report ---
EXAM: NM Hepatobiliary Scan CLINICAL HISTORY: ABD PAIN TECHNIQUE: Frontal dynamic images of the abdomen and pelvis were obtained over 60 minutes following the intravenous administration of Tc99m CHRISTOPH. RADIOPHARMACEUTICAL: 6.1 mCi technetium 99m mebrofenin IV. COMPARISON: No relevant prior studies available. FINDINGS: Liver: Delayed radiotracer uptake and lack of excretion even at 60 minutes. Bile ducts: Lack of radiotracer excretion into the biliary tree precludes visualization of the gallbladder. No radiotracer excretion into the biliary tree, even at 60 minutes postinjection imaging. Gallbladder: See above. Stomach and bowel: No radiotracer seen at 60 minutes in the small bowel or biliary tree. IMPRESSION: 1. Lack of radiotracer excretion into the biliary tree precludes visualization of the gallbladder. 2. This study strongly suggests severe hepatocyte dysfunction. 3. Biliary tree and gallbladder cannot be evaluated on this exam due to lack of radiotracer extraction and excretion. 4. Correlate with presentation, and if there is further concern, consider additional imaging.
--- NOTE | 2020-05-14 18:22 | General Progress Note ---
Subjective Date patient seen: May 14, 2020 Allergies: Coded Allergies: PENICILLINS (Verified Allergy, Unknown, 12/05/17) Subjective Patient with platelets in 50s and still actively bleeding. Slowly. With melena and bloody alaniz. WBC up to 30K, tbili and LFTs up. Suspect biliary tract etiology. Appreciate GI/Surgery input. For now not a candidate for surgery/interventions due to thrombocytopenia and comorbidities. D/w sister cesilia at length who understands grave prognosis and confirms DNR/DNI and continued medical management and limited procedures if there could be potential harm done. Explained to Cesilia all procedures carry some risk. Unable to obtain ROS due to ALOC Objective Last 24 Hour Vital Signs Date Time Temp Pulse Resp B/P (MAP) Pulse Ox O2 Delivery O2 Flow Rate FiO2 05/14/20 12:00 77 05/14/20 12:00 98.2 76 22 142/75 (97) 95 05/14/20 09:00 Room Air 05/14/20 08:00 98.1 75 30 160/74 (102) 97 05/14/20 08:00 76 05/14/20 04:00 98.3 70 16 122/67 (85) 95 05/14/20 00:00 96.9 76 20 140/79 (99) 94 05/13/20 21:00 Room Air 05/13/20 20:00 97.8 76 20 154/85 (108) 92 Intake and Output 05/13/20 05/14/20 19:00 07:00 Intake Total 110 ml Output Total 120 ml 120 ml Balance -10 ml -120 ml IV Total 110 ml Output Urine Total 120 ml 120 ml # Bowel Movements 1 Laboratory Tests 05/14/20 04:50: White Blood Count 30.5#*H, Red Blood Count 3.22L, Hemoglobin 9.9L, Hematocrit 30.8L, Mean Corpuscular Volume 95, Mean Corpuscular Hemoglobin 30.8, Mean Corpuscular Hemoglobin Concent 32.2, Red Cell Distribution Width 14.8, Platelet Count 54L, Mean Platelet Volume 8.5, Neutrophils (%) (Auto) , Lymphocytes (%) (Auto) , Monocytes (%) (Auto) , Eosinophils (%) (Auto) , Basophils (%) (Auto) , Differential Total Cells Counted 100, Neutrophils % (Manual) 86H, Lymphocytes % (Manual) 6L, Monocytes % (Manual) 2, Eosinophils % (Manual) 0, Basophils % (Manual) 0, Band Neutrophils 6, Platelet Estimate DecreasedL, Platelet Morphology Normal, Hypochromasia 1+, Anisocytosis 1+, Prothrombin Time 13.6H, Prothromb Time International Ratio 1.3H, Activated Partial Thromboplast Time 50H , Sodium Level 142, Potassium Level 3.0L, Chloride Level 106, Carbon Dioxide Level 25, Anion Gap 11, Blood Urea Nitrogen 39H, Creatinine 4.1H, Estimat Glomerular Filtration Rate 13.1, Glucose Level 131H, Lactic Acid Level 1.90, Calcium Level 7.6L, Phosphorus Level 2.7, Magnesium Level 2.1, Total Bilirubin 4.8H, Direct Bilirubin 4.7H, Aspartate Amino Transf (AST/SGOT) 407H, Alanine Aminotransferase (ALT/SGPT) 130H, Alkaline Phosphatase 1210H, Total Protein 4.1L , Albumin 1.1L, Globulin 3.0, Albumin/Globulin Ratio 0.4L, Amylase Level 47, Lipase 504H 05/14/20 10:02: POC Whole Blood Glucose 142H Height (Feet): 5 Height (Inches): 7.00 Weight (Pounds): 130 Objective General: WDWN female in NAD, A&O x 0 (baseline is A&o x 1), awake, alert, in mild distress HEENT: Normocephalic cephalic atraumatic, pupils equal round reactive to light and accommodation, nares patent and no symmetrical, no tonsillar exudates, mucous membranes moist CV: Regular rate regular rhythm, no murmurs, rubs, or gallops Pulm: Lungs clear to auscultation bilaterally. No wheezes, rhonchi, or rales GI: Soft, Non TTP in RUQ nondistended, bowel sounds present Neuro: CN 2-12 intact bilaterally, no focal signs. Ext: No lower extremity edema bilaterally. LUE 1-2+ edema Skin: no rashes lesions or ulcers Msk: Joints symmetrical in upper extremity and lower extremity bilaterally, no joint swelling. Lymph: No lymphadenopathy in upper extremity and lower extremity Assessment/Plan Assessment/Plan: This is a 69-year-old female presenting with acute encephalopathy, JYOTI, acute UTI; now ESRD on HD, Encephalopathic w/ Dysphagia and Chronic Osteo: #Sepsis due to possible Cholangitis #Elevated alk phos, suspect due to obstruction in Biliary tract #Transaminitis due to biliary obstruction #?Cholecystitis - > not a surgical candidate or PTC candidate - HIDA scan pending - Appreciate surgery input: D/w Dr. Alamo - Appreciate GI Input: D/w Dr. Hay - defer further procedures/imaging to GI and Surgery and discussion of risks/benefits with patient's sister - Sister Cesilia (medical decision maker), understands grave prognosis and ok with current medical treatment but would not like further procedures if could cause harm. Surgery explained to Cesilia that all procedures carry risk and not guaranteed any procedure will help cure her. #Thrombocytopenia #Anemia of Chronic Dx #Acute blood loss anemia #melena #hematuria -Appreciate Heme -Transfuse platelets to maintain above 15 to avoid ICH or above 50 if active bleeding -Transfuse for HGB less than 7 -HIT panel ordered -Trend CBC - 1unit platelets again today. Consent obtained from Cesilia #Acute Renal Failure now ESRD requiring HD s/p Doyle --> ATN? Normal Renal US -Appreciate Nephro; S/P Fluid Challenge -Will order Permcath Placement--> on hold 2/2 thrombocytopenia -Continue HD as scheduled; Midodrine prn Hypotension -Continue Sodium Bicarb Tabs #hypokalemia - replete PRN #Acute on chronic Metabolic Encephalopathy Exacerbated by Dementia #Dysphagia 2/2 Above -Appreciate Neuro, CTH WNL -Avoid Sedating Medications -Pending PEG tube placement per GI --> on hold 2/2 thrombocytopenia -Tube Feeding for now #DMII - ISS, Add long acting prn - lantus 5 units daily #LLE Osteo-Appreciate ID #[email or web address] -Cultures noted; S/P Broad Spectrum AB -Current AB: Cefepime/Flagyl/Doxy until 05/24 #COVID positive - asymptomatic - CTM - ID consult if needed #LUE DVT -venous duplex US reviewed -appreciate heme recommendations -off A/C due to bleeding -CTM FENPPX DVTPPX: HSQ (holding due to low platelets) Fluids: as above Diet: pending PEG Lines: PIV, LUE PICC PT/OT: pending Code status: Full per SNF Dispo: back to SNF Reason for Continued Hospitalization: jyoti, bleeding MIPS ([employer]-based Incentive Payment System) Applicable CPT: 47115, 99904 CHECK ALL THAT ARE MET: [] Measure #5 (CHF): All ages. Prescribe DESTINEY/ARB upon discharge for patients with left ventricular systolic dysfunction. If not, the reason is clearly documented in the medical chart [] Measure #8 (CHF): All ages. Prescribe a beta jennifer upon discharge for patients with left ventricular systolic dysfunction. If not, the reason is clearly documented in the medical chart. [] Measure #47: Advance care plan or surrogate decision maker documented in the medical record. [x] Measure #130 The provider has documented, updated, or reviewed the patients current medication list and has documented it in the patients note. [x] Measure #374 (All): Send report to referring provider. [] Measure #407(Sepsis due to MSSA bacteremia): Age 18+ Patient treated with a beta-lactam antibiotic (Nafcillin, Oxacillin or Cefazolin) as definitive therapy. MEDICAL COMPLEXITYHigh complexity medical decision making (need 2/3 ca tegories)Problem - need 4 points [x]Acute/new problem with new plan for workup (4 points, 1 max) [] Acute/new problem without additional workup (3 points, 1 max) [x] Unstable chronic problem actively being managed (2 point each, 2 max) [x] Stable chronic problem actively being managed (1 point each, 2 max) [x] Self-limited/transient process (constipation, muscle ache, etc) (1 point each, 2 max) Data - need 4 points [x] Reviewed labs/imaging studies (1 points, 2 max) [x] Independent review of imaging (EKG, xrays, etc) (2 points, 2 max) [x] Discussed case with consult/other MD/RN (2 points, 2 max) High Risk - qualify if have one of the following: [] Severe exacerbation of acute problem, acute mental status change, IV narcotics, monitoring drug levels (vancomycin, INR, tacrolimus etc) I spent 38 minutes on this patient's case, and 20 mins was dedicated to counseling and/or care coordination. Discussed with nephro, ID, gen surgery, neurology. I spent an additional 32 minutes of further face to face time on counseling and care coordination in addition to usual care as detailed above. Discussed with Cesilia at length possible procedures and further plan of care and discussion of risks and benefits per GI and surgery. Explained poor prognosis. All questions answered. Appreciate. Time of note may not reflect time of encounter Patrick Cerda D.O. May 14, 2020 18:22
--- NOTE | 2020-05-14 18:34 | NUR ---
NURSE NOTES: Notified Dr. Waterman regarding NPO status and that NM hepatobiliary scan is complete. Awaiting response/callback.
--- NOTE | 2020-05-14 18:49 | Infectious Diseases Prog Note ---
Assessment/Plan Assessment/Plan ASSESSMENT AND PLAN: 1. 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 c.diff., pancreatitis, liver failure, bleeding, thrombocytopenia covid-19 infection, covid testing now + (negative prior admission), chest x- ray negative, saturations stable - zosyn, doxycycline, iv flagyl - monitor labs, supportive care, check c.diff and cultures - no surgery per family, ERCP if can tolerate - poor prognosis, DNR/DNI - wound care per surgery - no indication for covid-19 treatment - communicated with primary and consultants 2. Acute renal failure. Dialysis. 3. Diabetes. 4. Hypertension. 5. Dyslipidemia. 6. Diabetes and hypertension treatment per primary care team. 7. Anemia. 8. Wound care per Surgery. 9. Allergic to penicillin. 10. Social history is negative. 11. Family history is noncontributory. 12. MAR is noted. 13. Case discussed with RN. Subjective Constitutional: Reports: fatigue; Denies: fever HEENT: Denies: congestion Respiratory: Denies: shortness of breath Cardiovascular: Denies: chest pain Gastrointestinal/Abdominal: Reports: diarrhea; Denies: nausea, vomiting Genitourinary: Reports: other - + alaniz Neurologic: Denies: headache Psychiatric: Reports: other Skin: Denies: rash Hematologic: Reports: bleeding Allergies: Coded Allergies: PENICILLINS (Verified Allergy, Unknown, 12/05/17) Objective Last 24 Hour Vital Signs Date Time Temp Pulse Resp B/P (MAP) Pulse Ox O2 Delivery O2 Flow Rate FiO2 05/14/20 16:00 98.8 78 20 148/78 (101) 96 05/14/20 12:00 77 05/14/20 12:00 98.2 76 22 142/75 (97) 95 05/14/20 09:00 Room Air 05/14/20 08:00 98.1 75 30 160/74 (102) 97 05/14/20 08:00 76 05/14/20 04:00 98.3 70 16 122/67 (85) 95 05/14/20 00:00 96.9 76 20 140/79 (99) 94 05/13/20 21:00 Room Air 05/13/20 20:00 97.8 76 20 154/85 (108) 92 Height (Feet): 5 Height (Inches): 7.00 Weight (Pounds): 130 General Appearance: no acute distress HEENT: normocephalic, atraumatic, anicteric Respiratory/Chest: crackles/rales, rhonchi - bilaterally Cardiovascular: normal rate, regular rhythm, no gallop/murmur Abdomen: normal bowel sounds, soft, non tender, no organomegaly, non distended Genitourinary: other - + alaniz Extremities: no cyanosis Skin: no rash Neurologic/Psychiatric: motor weakness, other - lethargic, weak Lymphatic: no neck adenopathy Musculoskeletal: no effusion Chest x-ray - 05/04/20 - Procedure: XRAY Chest 1v Indication: Shortness of breath Technique: One view of the chest Comparison: 03/31/2020 Findings: Interim placement of a right jugular temporary dialysis catheter in satisfactory position. No pneumothorax. The lungs and pleural spaces are clear. The heart size is normal Impression: No acute process Abdominal US: Impression: Ascites fluid Bilateral pleural effusions Negative for gallstones. Small amount of gallbladder sludge noted. Gallbladder wall thickening and pericholecystic edema is probably related to what ever process is causing the pleural fluid and ascites. Possibility of acute acalculous cholecystitis should also be considered, however. HIDA scan: IMPRESSION: 1. Lack of radiotracer excretion into the biliary tree precludes visualization of the gallbladder. 2. This study strongly suggests severe hepatocyte dysfunction. 3. Biliary tree and gallbladder cannot be evaluated on this exam due to lack of radiotracer extraction and excretion. 4. Correlate with presentation, and if there is further concern, consider additional imaging. Microbiology Date/Time Source Procedure Growth Status 05/11/20 16:54 Nasopharynx SARS-CoV-2 RdRp Gene Assay - Final Complete 05/01/20 15:50 Urine,Clean Catch Urine Culture - Preliminary Yeast Species Resulted 05/01/20 15:30 Rectum - Final NO CARBAPENEM-RESISTANT ENTEROBACTERI... Complete 05/01/20 07:10 Blood Blood Culture - Final NO GROWTH AFTER 5 DAYS Complete Laboratory Tests Test 05/14/20 04:50 05/14/20 10:02 05/14/20 18:13 White Blood Count 30.5 K/UL (4.8-10.8) #*H Red Blood Count 3.22 M/UL (4.20-5.40) L Hemoglobin 9.9 G/DL (12.0-16.0) L Hematocrit 30.8 % (37.0-47.0) L Mean Corpuscular Volume 95 FL (80-99) Mean Corpuscular Hemoglobin 30.8 PG (27.0-31.0) Mean Corpuscular Hemoglobin Concent 32.2 G/DL (32.0-36.0) Red Cell Distribution Width 14.8 % (11.6-14.8) Platelet Count 54 K/UL (150-450) L Mean Platelet Volume 8.5 FL (6.5-10.1) Neutrophils (%) (Auto) % (45.0-75.0) Lymphocytes (%) (Auto) % (20.0-45.0) Monocytes (%) (Auto) % (1.0-10.0) Eosinophils (%) (Auto) % (0.0-3.0) Basophils (%) (Auto) % (0.0-2.0) Differential Total Cells Counted 100 Neutrophils % (Manual) 86 % (45-75) H Lymphocytes % (Manual) 6 % (20-45) L Monocytes % (Manual) 2 % (1-10) Eosinophils % (Manual) 0 % (0-3) Basophils % (Manual) 0 % (0-2) Band Neutrophils 6 % (0-8) Platelet Estimate Decreased L Platelet Morphology Normal Hypochromasia 1+ Anisocytosis 1+ Prothrombin Time 13.6 SEC (9.30-11.50) H Prothromb Time International Ratio 1.3 (0.9-1.1) H Activated Partial Thromboplast Time 50 SEC (23-33) H Sodium Level 142 MMOL/L (136-145) Potassium Level 3.0 MMOL/L (3.5-5.1) L Chloride Level 106 MMOL/L (98-107) Carbon Dioxide Level 25 MMOL/L (21-32) Anion Gap 11 mmol/L (5-15) Blood Urea Nitrogen 39 mg/dL (7-18) H Creatinine 4.1 MG/DL (0.55-1.30) H Estimat Glomerular Filtration Rate 13.1 mL/min (>60) Glucose Level 131 MG/DL (74-106) H Lactic Acid Level 1.90 mmol/L (0.4-2.0) Calcium Level 7.6 MG/DL (8.5-10.1) L Phosphorus Level 2.7 MG/DL (2.5-4.9) Magnesium Level 2.1 MG/DL (1.8-2.4) Total Bilirubin 4.8 MG/DL (0.2-1.0) H Direct Bilirubin 4.7 MG/DL (0.0-0.3) H Aspartate Amino Transf (AST/SGOT) 407 U/L (15-37) H Alanine Aminotransferase (ALT/SGPT) 130 U/L (12-78) H Alkaline Phosphatase 1210 U/L (46-116) H Total Protein 4.1 G/DL (6.4-8.2) L Albumin 1.1 G/DL (3.4-5.0) L Globulin 3.0 g/dL Albumin/Globulin Ratio 0.4 (1.0-2.7) L Amylase Level 47 U/L (25-115) Lipase 504 U/L (73-393) H POC Whole Blood Glucose 142 MG/DL (74-106) H 179 MG/DL (74-106) H Current Medications Medications (Trade) Dose Ordered Sig/Enrike Route PRN Reason Start Time Stop Time Status Last Admin Dose Admin Bisacodyl (Dulcolax) 10 mg DAILYPRN PRN RECTAL Constipation 05/01/20 20:30 07/30/20 20:29 Chlorhexidine Gluconate (Holli-Hex 2%) 1 applic DAILY@2000 TOPIC 05/02/20 20:00 07/31/20 19:59 05/11/20 19:46 Dextrose (Dextrose 50%) 25 ml Q30M PRN IV Hypoglycemia 05/01/20 20:30 07/30/20 20:29 Dextrose (Dextrose 50%) 50 ml Q30M PRN IV Hypoglycemia 05/01/20 20:30 07/30/20 20:29 Doxycycline Hyclate 100 mg/ Dextrose 110 ml @ 110 mls/hr Q12HR IV 05/08/20 21:00 05/24/20 23:59 05/14/20 09:45 Insulin Aspart (NovoLOG) Q6HR SUBQ 05/03/20 00:00 08/01/20 00:00 05/13/20 18:19 Insulin Detemir (Levemir) 5 units DAILY SUBQ 05/13/20 10:00 08/11/20 09:59 05/13/20 10:19 Ondansetron HCl (Zofran) 4 mg Q6H PRN IVP Nausea & Vomiting 05/01/20 20:30 05/31/20 20:29 Pantoprazole (Protonix) 40 mg EVERY 12 HOURS IVP 05/12/20 16:15 06/11/20 16:14 05/14/20 09:45 Sodium Hypochlorite (Dakin's Quarter Strength) 1 applic DAILY TOPIC 05/05/20 09:00 06/04/20 08:59 05/14/20 09:59 Elyse Leung MD May 14, 2020 18:49
[2020-05-14 18:53] LABS: HEMATOCRIT 28.2 % (37.0-47.0); HEMOGLOBIN 9.7 G/DL (12.0-16.0); MEAN CORPUSCULAR VOLUME 92 FL (80-99); PLATELET COUNT 46 K/UL (150-450); RED BLOOD COUNT 3.08 M/UL (4.20-5.40); RED CELL DISTRIBUTION WIDTH 15.8 % (11.6-14.8)
[2020-05-14 18:54] LABS: WHITE BLOOD COUNT 33.3 K/UL (4.8-10.8)
--- NOTE | 2020-05-14 18:55 | NUR ---
HAND-OFF: Notified Dr. Acharya regarding WBCs (33.3).
--- NOTE | 2020-05-14 19:20 | NUR ---
NURSE NOTES: Received patient from ZACH Allen. Patient AAOx0, aphasic. On room air, saturating well. IV site on R IJ Doyle catheter. Flushed and asymptomatic. Endorsed for need to transfuse platelets during the shift once blood product is available in the blood bank. Bed in lowest position, brakes engaged and bed alarm on. Call light placed within reach. Will continue to monitor.
--- NOTE | 2020-05-14 19:20 | NUR ---
NURSE HAND-OFF REPORT: Important Events on Shift: WBC going up, 33.3 WBC endorsed to RN, MD made aware. Patient Status: DNI, DNR, stable condition, Dr. Alamo, Dr. Hay, Dr. Howard and Dr. Leung made aware of active slow bleeding Diet: NPO, fluids ordered (D5NS at 50mL/hr Pending Orders: [] Pending Results/Labs:[] Pending MD notification:[] Latest Vital Signs: Temperature 98.8 , Pulse 77 , B/P 148 /78 , Respiratory Rate 20 , O2 SAT 96 , Room Air, O2 Flow Rate 3.0 . Vital Sign Comment: [] EKG Rhythm: Sinus Rhythm Rhythm change?: N MD Notified?: - MD Response: Latest Hernandez Fall Score: 70 Fall Risk: High Risk Safety Measures: Call light Within Reach, Bed Alarm Zone 1, Side Rails Side Rails x3, Bed position Low and Locked. Fall Precautions: Yellow Socks Yellow Gown Door Sign Patient Fall Education Report given to Crispin Bolton RN.
[2020-05-14 20:00] VITALS: BP 121/65
[2020-05-14] MEDS: Dyna-Hex 2% Top Sol 2oz TOPIC SCH (20:00)
--- NOTE | 2020-05-14 20:15 | Neurology Progress Note ---
Interim History Interim History ROS Limited/Unobtainable: Yes Interim History more confused today Objective Physical Exam Last Vital Signs Date Time Temp Pulse Resp B/P (MAP) Pulse Ox O2 Delivery O2 Flow Rate FiO2 05/14/20 16:00 98.8 78 20 148/78 (101) 96 05/14/20 09:00 Room Air 05/05/20 16:12 3.0 99 Laboratory Tests Test 05/14/20 04:50 05/14/20 10:02 05/14/20 18:13 05/14/20 18:18 White Blood Count 30.5 K/UL (4.8-10.8) #*H 33.3 K/UL (4.8-10.8) *H Red Blood Count 3.22 M/UL (4.20-5.40) L 3.08 M/UL (4.20-5.40) L Hemoglobin 9.9 G/DL (12.0-16.0) L 9.7 G/DL (12.0-16.0) L Hematocrit 30.8 % (37.0-47.0) L 28.2 % (37.0-47.0) L Mean Corpuscular Volume 95 FL (80-99) 92 FL (80-99) Mean Corpuscular Hemoglobin 30.8 PG (27.0-31.0) 31.6 PG (27.0-31.0) H Mean Corpuscular Hemoglobin Concent 32.2 G/DL (32.0-36.0) 34.5 G/DL (32.0-36.0) Red Cell Distribution Width 14.8 % (11.6-14.8) 15.8 % (11.6-14.8) H Platelet Count 54 K/UL (150-450) L 46 K/UL (150-450) L Mean Platelet Volume 8.5 FL (6.5-10.1) 14.2 FL (6.5-10.1) H Neutrophils (%) (Auto) % (45.0-75.0) % (45.0-75.0) Lymphocytes (%) (Auto) % (20.0-45.0) % (20.0-45.0) Monocytes (%) (Auto) % (1.0-10.0) % (1.0-10.0) Eosinophils (%) (Auto) % (0.0-3.0) % (0.0-3.0) Basophils (%) (Auto) % (0.0-2.0) % (0.0-2.0) Differential Total Cells Counted 100 100 Neutrophils % (Manual) 86 % (45-75) H 85 % (45-75) H Lymphocytes % (Manual) 6 % (20-45) L 3 % (20-45) L Monocytes % (Manual) 2 % (1-10) 1 % (1-10) Eosinophils % (Manual) 0 % (0-3) 0 % (0-3) Basophils % (Manual) 0 % (0-2) 0 % (0-2) Band Neutrophils 6 % (0-8) 11 % (0-8) H Platelet Estimate Decreased L Decreased L Platelet Morphology Normal Normal Hypochromasia 1+ Anisocytosis 1+ 1+ Prothrombin Time 13.6 SEC (9.30-11.50) H Prothromb Time International Ratio 1.3 (0.9-1.1) H Activated Partial Thromboplast Time 50 SEC (23-33) H Sodium Level 142 MMOL/L (136-145) Potassium Level 3.0 MMOL/L (3.5-5.1) L Chloride Level 106 MMOL/L (98-107) Carbon Dioxide Level 25 MMOL/L (21-32) Anion Gap 11 mmol/L (5-15) Blood Urea Nitrogen 39 mg/dL (7-18) H Creatinine 4.1 MG/DL (0.55-1.30) H Estimat Glomerular Filtration Rate 13.1 mL/min (>60) Glucose Level 131 MG/DL (74-106) H Lactic Acid Level 1.90 mmol/L (0.4-2.0) Calcium Level 7.6 MG/DL (8.5-10.1) L Phosphorus Level 2.7 MG/DL (2.5-4.9) Magnesium Level 2.1 MG/DL (1.8-2.4) Total Bilirubin 4.8 MG/DL (0.2-1.0) H Direct Bilirubin 4.7 MG/DL (0.0-0.3) H Aspartate Amino Transf (AST/SGOT) 407 U/L (15-37) H Alanine Aminotransferase (ALT/SGPT) 130 U/L (12-78) H Alkaline Phosphatase 1210 U/L (46-116) H Total Protein 4.1 G/DL (6.4-8.2) L Albumin 1.1 G/DL (3.4-5.0) L Globulin 3.0 g/dL Albumin/Globulin Ratio 0.4 (1.0-2.7) L Amylase Level 47 U/L (25-115) Lipase 504 U/L (73-393) H POC Whole Blood Glucose 142 MG/DL (74-106) H 179 MG/DL (74-106) H Polychromasia 1+ Impression/Recommendations Problems: (1) Sepsis (2) Hyperkalemia (3) Leukocytosis (4) Altered mental status (5) Diabetes mellitus out of control (6) Acute on chronic renal failure (7) NSTEMI (non-ST elevated myocardial infarction) (8) High anion gap metabolic acidosis (9) Sacral decubitus ulcer (10) Decubitus ulcer of heel (11) UTI (urinary tract infection) (12) JYOTI (acute kidney injury) Diagnostic Impression acute metabolic encephalopathy jyoti sepsis baseline dementia cont ivfs delirium precautions no need for mri brain cont Thee Burden MD May 14, 2020 20:15
--- NOTE | 2020-05-14 21:02 | General Progress Note ---
Subjective Allergies: Coded Allergies: PENICILLINS (Verified Allergy, Unknown, 12/05/17) Subjective confused non communicative tolerating NGT feeds d/w RN red stools noted Objective Last 24 Hour Vital Signs Date Time Temp Pulse Resp B/P (MAP) Pulse Ox O2 Delivery O2 Flow Rate FiO2 05/14/20 16:00 98.8 78 20 148/78 (101) 96 05/14/20 16:00 77 05/14/20 12:00 77 05/14/20 12:00 98.2 76 22 142/75 (97) 95 05/14/20 09:00 Room Air 05/14/20 08:00 98.1 75 30 160/74 (102) 97 05/14/20 08:00 76 05/14/20 04:00 98.3 70 16 122/67 (85) 95 05/14/20 00:00 96.9 76 20 140/79 (99) 94 05/13/20 21:00 Room Air Intake and Output 05/13/20 05/14/20 19:00 07:00 Intake Total 110 ml Output Total 120 ml 120 ml Balance -10 ml -120 ml IV Total 110 ml Output Urine Total 120 ml 120 ml # Bowel Movements 1 Laboratory Tests 05/14/20 04:50: White Blood Count 30.5#*H, Red Blood Count 3.22L, Hemoglobin 9.9L, Hematocrit 30.8L, Mean Corpuscular Volume 95, Mean Corpuscular Hemoglobin 30.8, Mean Corpuscular Hemoglobin Concent 32.2, Red Cell Distribution Width 14.8, Platelet Count 54L, Mean Platelet Volume 8.5, Neutrophils (%) (Auto) , Lymphocytes (%) (Auto) , Monocytes (%) (Auto) , Eosinophils (%) (Auto) , Basophils (%) (Auto) , Differential Total Cells Counted 100, Neutrophils % (Manual) 86H, Lymphocytes % (Manual) 6L, Monocytes % (Manual) 2, Eosinophils % (Manual) 0, Basophils % (Manual) 0, Band Neutrophils 6, Platelet Estimate DecreasedL, Platelet Morphology Normal, Hypochromasia 1+, Anisocytosis 1+, Prothrombin Time 13.6H, Prothromb Time International Ratio 1.3H, Activated Partial Thromboplast Time 50H , Sodium Level 142, Potassium Level 3.0L, Chloride Level 106, Carbon Dioxide Level 25, Anion Gap 11, Blood Urea Nitrogen 39H, Creatinine 4.1H, Estimat Glomerular Filtration Rate 13.1, Glucose Level 131H, Lactic Acid Level 1.90, Calcium Level 7.6L, Phosphorus Level 2.7, Magnesium Level 2.1, Total Bilirubin 4.8H, Direct Bilirubin 4.7H, Aspartate Amino Transf (AST/SGOT) 407H, Alanine Aminotransferase (ALT/SGPT) 130H, Alkaline Phosphatase 1210H, Total Protein 4.1L , Albumin 1.1L, Globulin 3.0, Albumin/Globulin Ratio 0.4L, Amylase Level 47, Lipase 504H 05/14/20 10:02: POC Whole Blood Glucose 142H 05/14/20 18:13: POC Whole Blood Glucose 179H 05/14/20 18:18: White Blood Count 33.3*H, Red Blood Count 3.08L, Hemoglobin 9.7L, Hematocrit 28.2L, Mean Corpuscular Volume 92, Mean Corpuscular Hemoglobin 31.6H, Mean Corpuscular Hemoglobin Concent 34.5, Red Cell Distribution Width 15.8H, Platelet Count 46L, Mean Platelet Volume 14.2H, Neutrophils (%) (Auto) , Lymphocytes (%) (Auto) , Monocytes (%) (Auto) , Eosinophils (%) (Auto) , Basophils (%) (Auto) , Differential Total Cells Counted 100, Neutrophils % (Manual) 85H, Lymphocytes % (Manual) 3L, Monocytes % (Manual) 1, Eosinophils % (Manual) 0, Basophils % (Manual) 0, Band Neutrophils 11H, Platelet Estimate DecreasedL, Platelet Morphology Normal, Anisocytosis 1+, Polychromasia 1+ Height (Feet): 5 Height (Inches): 7.00 Weight (Pounds): 130 Objective Elderly woman non communicative (+) NGT CTA RRR abd soft ND no edema OBS Assessment/Plan Assessment/Plan: Assessment: DM RF anemia thrombocytopenia LGIB UTI dysphagia COVID (+) Recommendations: off lovenox ppi cbc transfuse as needed abd us reviewed plt transfusion PRN f/u labs needs EGD +/- peg NGTF plan peg next week Eze Nur MD May 14, 2020 21:02
--- NOTE | 2020-05-14 23:46 | NUR ---
NURSE NOTES: platelet transfusion started. No adverse reactions after 15 minutes of initiation. Will continue to monitor.
[2020-05-15] VITALS: BP 142/81
[2020-05-15] MEDS: NovoLOG Insulin Flexpen SUBQ SCH ×4 (00:17→18:00)
[2020-05-15] MEDS: D5NS 1,000 ML IV SCH ×2 (02:32→16:40)
[2020-05-15 04:00] VITALS: BP 122/70
[2020-05-15 07:02] LABS: HEMATOCRIT 31.4 % (37.0-47.0); HEMOGLOBIN 10.2 G/DL (12.0-16.0); MEAN CORPUSCULAR VOLUME 94 FL (80-99); PLATELET COUNT 59 K/UL (150-450); RED BLOOD COUNT 3.33 M/UL (4.20-5.40); RED CELL DISTRIBUTION WIDTH 14.9 % (11.6-14.8)
[2020-05-15 07:06] LABS: WHITE BLOOD COUNT 32.2 K/UL (4.8-10.8)
--- NOTE | 2020-05-15 07:25 | NUR ---
CASE MANAGEMENT: REVIEW 05/15/2020 SI:SEPSIS. VS: 97.9 HR 83 RR 20 B/P 122/70 SATS 96% ON RA LABS: WBC 32.2 BMP: PENDING IS:PROTONIX IV Q12H LEVEMIR SUBQ QD K DUR PO X1 FLAGYL IV Q12H DOXYCYCLINE IV Q12H CEFEPIME IV Q24H INSULIN ASPART SUBQ Q6H TELE PLAN OF CARE: CXR
[2020-05-15 07:28] LABS: CALCIUM 7.5 MG/DL (8.5-10.1); CREATININE 4.6 MG/DL (0.55-1.30); PHOSPHORUS 3.9 MG/DL (2.5-4.9); POTASSIUM 3.5 MMOL/L (3.5-5.1)
--- NOTE | 2020-05-15 07:30 | NUR ---
NURSE HAND-OFF REPORT: Important Events on Shift:[1 unit of Platelet transfused during the shift. WBC dropped to 32.2] Patient Status: [DNR/DNI] Diet: [NPO] Pending Orders: [] Pending Results/Labs:[C diff] Pending MD notification:[] Latest Vital Signs: Temperature 97.9 , Pulse 83 , B/P 122 /70 , Respiratory Rate 20 , O2 SAT 96 , Room Air, O2 Flow Rate 3.0 . Vital Sign Comment: [] EKG Rhythm: Sinus Rhythm Rhythm change?: N MD Notified?: - MD Response: Latest Hernandez Fall Score: 70 Fall Risk: High Risk Safety Measures: Call light Within Reach, Bed Alarm Zone 1, Side Rails Side Rails x3, Bed position Low and Locked. Fall Precautions: Yellow Socks Yellow Gown Door Sign Patient Fall Education Report given to [ZACH Allen].
--- NOTE | 2020-05-15 07:32 | NUR ---
NURSE NOTES: Hand-off report received by Crispin Bolton RN. Patient in stable condition, on room air, breathing even and unlabored, alert and oriented to baseline (x1), responsive to verbal and tactile stimuli. Bed in lowest and locked position, bilateral wrist restraints on, peripheral pulses palpable, skin intact, sensation intact, alaniz 16Fr patent and draining red urine, Dr. Alamo, Dr. Howard, Dr. Hay previously made aware. NGT in place, no feedings running, no signs of respiratory distress noted.
[2020-05-15 07:42] LABS: ALANINE AMINOTRANSFERASE 118 U/L (12-78); ALBUMIN 1.3 G/DL (3.4-5.0); ALKALINE PHOSPHATASE 1260 U/L (46-116); ASPARTATE AMINO TRANSFERASE 298 U/L (15-37); BILIRUBIN,DIRECT 5.1 MG/DL (0.0-0.3); BILIRUBIN,TOTAL 5.6 MG/DL (0.2-1.0)
[2020-05-15 08:00] VITALS: BP 133/77
--- NOTE | 2020-05-15 08:28 | Nephrology Progress Note ---
Assessment/Plan Plan #JYOTI - concerns for vancomycin nephrotoxicity- r/o ATN- baseline Cr 0.8- also with volume depletion # osteomyelitis of LLE- on vanco, cefepime and flagyl #AMS #diabetes # hypertension, #hyperlipidemia # dementia. - HD tomorrow - DC midodrine 5 TID - PEG postponed - plt transfusion per hematology - monitor hemoglobin - renal US with no acute findings - anibiotics per ID- - avoid vanco for now - monitor renal output - add epo 4k TIW time spent 45 min Subjective ROS Limited/Unobtainable: Yes Subjective PEG cancelled due o thrombocytopenia WBC rising LFTs rising R IJ in plan for HD tomorrow Objective Objective Last 24 Hour Vital Signs Date Time Temp Pulse Resp B/P (MAP) Pulse Ox O2 Delivery O2 Flow Rate FiO2 05/15/20 04:00 76 05/15/20 04:00 97.9 83 20 122/70 (87) 96 05/15/20 00:00 76 05/15/20 00:00 97.6 84 20 142/81 (101) 96 05/14/20 21:00 Room Air 05/14/20 20:00 79 05/14/20 20:00 97.6 72 20 121/65 (83) 96 05/14/20 16:00 98.8 78 20 148/78 (101) 96 05/14/20 16:00 77 05/14/20 12:00 77 05/14/20 12:00 98.2 76 22 142/75 (97) 95 05/14/20 09:00 Room Air Intake and Output 05/14/20 05/15/20 19:00 07:00 Output Total 150 ml 50 ml Balance -150 ml -50 ml Output Urine Total 150 ml 50 ml # Bowel Movements 1 Laboratory Tests 05/14/20 10:02: POC Whole Blood Glucose 142H 05/14/20 18:13: POC Whole Blood Glucose 179H 05/14/20 18:18: White Blood Count 33.3*H, Red Blood Count 3.08L, Hemoglobin 9.7L, Hematocrit 28.2L, Mean Corpuscular Volume 92, Mean Corpuscular Hemoglobin 31.6H, Mean Corpuscular Hemoglobin Concent 34.5, Red Cell Distribution Width 15.8H, Platelet Count 46L, Mean Platelet Volume 14.2H, Neutrophils (%) (Auto) , Lymphocytes (%) (Auto) , Monocytes (%) (Auto) , Eosinophils (%) (Auto) , Basophils (%) (Auto) , Differential Total Cells Counted 100, Neutrophils % (Manual) 85H, Lymphocytes % (Manual) 3L, Monocytes % (Manual) 1, Eosinophils % (Manual) 0, Basophils % (Manual) 0, Band Neutrophils 11H, Platelet Estimate DecreasedL, Platelet Morphology Normal, Polychromasia 1+, Anisocytosis 1+ /07/04 06:25: White Blood Count 32.2*H, Red Blood Count 3.33L, Hemoglobin 10.2L, Hematocrit 31.4L, Mean Corpuscular Volume 94, Mean Corpuscular Hemoglobin 30.8, Mean Corpuscular Hemoglobin Concent 32.6, Red Cell Distribution Width 14.9H, Platelet Count 59L, Mean Platelet Volume 10.1, Neutrophils (%) (Auto) , Lymphocytes (%) (Auto) , Monocytes (%) (Auto) , Eosinophils (%) (Auto) , Basophils (%) (Auto) , Neutrophils % (Manual) [Pending], Lymphocytes % (Manual) [Pending], Platelet Estimate [Pending], Platelet Morphology [Pending], Sodium Level 141, Potassium Level 3.5, Chloride Level 106, Carbon Dioxide Level 21, Anion Gap 14, Blood Urea Nitrogen 44H, Creatinine 4.6H, Estimat Glomerular Filtration Rate 11.4, Glucose Level 210H, Calcium Level 7.5L, Phosphorus Level 3.9, Magnesium Level 2.1, Total Bilirubin 5.6H, Direct Bilirubin 5.1H, Aspartate Amino Transf (AST/SGOT) 298H, Alanine Aminotransferase (ALT/SGPT) 118H, Alkaline Phosphatase 1260H, Total Protein 4.7L, Albumin 1.3L Height (Feet): 5 Height (Inches): 7.00 Weight (Pounds): 130 Objective General Appearance: no apparent distress EENT: PERRL/EOMI, normal ENT inspection Neck: non-tender, normal alignment Cardiovascular: normal peripheral pulses, normal rate, regular rhythm Respiratory/Chest: chest wall non-tender, lungs clear, normal breath sounds Abdomen: normal bowel sounds, non tender Niko Waterman M.D. May 15, 2020 08:28
[2020-05-15] MEDS: Dakin's 0.125% Soln (Quarter Strength) 16oz TOPIC SCH (08:51)
[2020-05-15] MEDS: Pantoprazole Inj IVP SCH ×2 (08:51→20:48)
--- NOTE | 2020-05-15 08:53 | Diagnostic Imaging Report ---
EXAM: XR Chest, 1 View CLINICAL HISTORY: INFECT TECHNIQUE: Frontal view of the chest. COMPARISON: Comparison to 05/04/20 FINDINGS: Lungs: There is been development of mild to moderate patchy bilateral mixed interstitial and alveolar infiltrates. These are most prominent in the perihilar regions and lower lobes. The infiltrates are most consistent with bilateral pneumonia, likely Covid 19. Asymmetric pulmonary edema considered less likely but cannot be excluded. Pleural space: There is a probable small left pleural effusion No pneumothorax. Heart: Unremarkable. No cardiomegaly. Mediastinum: Unremarkable. Bones/joints: Unremarkable. Tubes, lines and devices: There is right IJ central venous catheter in good position at the aortocaval junction. There is an NG tube also good position with its tip in the mid stomach. IMPRESSION: 1. There is been development of mild to moderate patchy bilateral mixed interstitial and alveolar infiltrates. These are most prominent in the perihilar regions and lower lobes. The infiltrates are most consistent with bilateral pneumonia, likely Covid 19. Asymmetric pulmonary edema considered less likely but cannot be excluded. 2. There is right IJ central venous catheter in good position at the aortocaval junction. There is an NG tube also good position with its tip in the mid stomach.
[2020-05-15] MEDS ORDERED: D5NS 1000ml IV ONE (09:49)
[2020-05-15] MEDS ORDERED: Tubing IV Blood Pump IV ONE (09:49)
[2020-05-15] MEDS: Doxycycline Hyclate 100 MG in D5W 110 ML IV SCH ×2 (09:59→22:10)
[2020-05-15] MEDS: Levemir Flexpen SUBQ SCH (10:01)
--- NOTE | 2020-05-15 10:21 | Hematology/Onc Progress Note ---
Assessment/Plan Assessment/Plan Assessment and Recs # Left upper extremity axillary, subclavian, and brachial venous thrombosis --> heparin gtt was started-->now changed to lovenox as supertherapeutic->now HELD due to severe anemia --> consider eliquis or coumadin once closer to dc --> patient does have eleno/ckd, thus agent needed not affected by renal function --> monitor for bleed # Thrombocytopenia likely secondary to left heel and foot osteomyelitis/ infection/dic --> likely due to infected wounds, heel ulcerations --> ABX flucon/flagyl/cefepime-->doxy/cefepime --> Peripheral smear, reviewed, hold off flow for now --> elev inflammatory markers --> WBC 35-->22-->18-->14-->13-->11.4->>>13-->17-->31 --> plt 55-->23-->26-->22-->54--> 59k --> 2 units plt 05/13 # Anemia due to underlying chronic disease. --> Continue to closely monitor for improvement. --> Anemia w/u has been reviewed. Will trend cbc daily. --> Hgb goal >7 -> hgb 12-->10.7->9.4-->9.5->10-->7.3-->5.7-->6.2-->8-->6.4-->10 --> 2 units 05/07 --> anemia panel reviewed before # Hyperkalemia. Given Kayexalate. --> Improved # Diabetic ketoacidosis. --> per before, improved # ESRD --> hd with line inserted # Shortness of breath in past with dka # Dvt ppx --> scds The time the note was entered does not necessarily correspond to the time the patient was seen. Subjective Allergies: Coded Allergies: PENICILLINS (Verified Allergy, Unknown, 12/05/17) Subjective Subjective 05/05 hgb 7.3 this am, plts lower, no bleeding, ptt elev, will hold off hep gtt 05/06 labs noted, no bleeding, now on lovenox sq, sis somnolent in am 05/07 is on lovenox sq, is s/p transfusion, labs noted, on abx 05/09 anticoag is held, pending for cbc today, labs noted 05/10 anticoag held, for platelets to goal >50k, with coffee ground emesis 05/11 hd was given last night, bp was low and albumin administered, bp better 05/12 nv, labs reviewed, aphasic, plt 26 yesterday, meds reviewed, to get cbc today 05/13 2nd bag of platelets is pending, jessie Rn, plt recently 22k 05/14 plt improved to 54k, hit panel pending, is on abx 05/15: plt 59k, labs reviewed. Objective Objective Current Medications Medications (Trade) Dose Ordered Sig/Enrike Route PRN Reason Start Time Stop Time Status Last Admin Dose Admin Bisacodyl (Dulcolax) 10 mg DAILYPRN PRN RECTAL Constipation 05/01/20 20:30 07/30/20 20:29 Chlorhexidine Gluconate (Holli-Hex 2%) 1 applic DAILY@2000 TOPIC 05/02/20 20:00 07/31/20 19:59 05/14/20 20:00 Dextrose (Dextrose 50%) 25 ml Q30M PRN IV Hypoglycemia 05/01/20 20:30 07/30/20 20:29 Dextrose (Dextrose 50%) 50 ml Q30M PRN IV Hypoglycemia 05/01/20 20:30 07/30/20 20:29 Dextrose/Sodium Chloride 1,000 ml @ 50 mls/hr Q20H IV 05/14/20 20:30 06/13/20 20:29 05/15/20 02:32 Doxycycline Hyclate 100 mg/ Dextrose 110 ml @ 110 mls/hr Q12HR IV 05/08/20 21:00 05/24/20 23:59 05/15/20 09:59 Insulin Aspart (NovoLOG) Q6HR SUBQ 05/03/20 00:00 08/01/20 00:00 05/15/20 06:03 Insulin Detemir (Levemir) 5 units DAILY SUBQ 05/13/20 10:00 08/11/20 09:59 05/15/20 10:01 Meropenem 500 mg/ Sodium Chloride 50 ml @ 100 mls/hr Q24HRS IVPB 05/14/20 21:00 05/19/20 20:59 05/14/20 21:07 Metronidazole 100 ml @ 100 mls/hr Q12H IVPB 05/14/20 20:00 05/21/20 19:59 05/15/20 08:51 Ondansetron HCl (Zofran) 4 mg Q6H PRN IVP Nausea & Vomiting 05/01/20 20:30 05/31/20 20:29 Pantoprazole (Protonix) 40 mg EVERY 12 HOURS IVP 05/12/20 16:15 06/11/20 16:14 05/15/20 08:51 Sodium Hypochlorite (Dakin's Quarter Strength) 1 applic DAILY TOPIC 05/05/20 09:00 06/04/20 08:59 05/15/20 08:51 Last 24 Hour Vital Signs Date Time Temp Pulse Resp B/P (MAP) Pulse Ox O2 Delivery O2 Flow Rate FiO2 05/15/20 04:00 76 05/15/20 04:00 97.9 83 20 122/70 (87) 96 05/15/20 00:00 76 05/15/20 00:00 97.6 84 20 142/81 (101) 96 05/14/20 21:00 Room Air 05/14/20 20:00 79 05/14/20 20:00 97.6 72 20 121/65 (83) 96 05/14/20 16:00 98.8 78 20 148/78 (101) 96 05/14/20 16:00 77 05/14/20 12:00 77 05/14/20 12:00 98.2 76 22 142/75 (97) 95 05/14/20 09:00 Room Air 05/14/20 08:00 98.1 75 30 160/74 (102) 97 05/14/20 08:00 76 05/14/20 04:00 98.3 70 16 122/67 (85) 95 05/14/20 00:00 96.9 76 20 140/79 (99) 94 05/13/20 21:00 Room Air 05/13/20 20:00 97.8 76 20 154/85 (108) 92 05/13/20 16:00 97.6 86 20 149/79 (102) 97 05/13/20 12:00 97.3 96 18 151/60 (90) 97 05/13/20 10:20 97.0 73 151/75 (100) Intake and Output 05/14/20 05/15/20 19:00 07:00 Output Total 150 ml 50 ml Balance -150 ml -50 ml Output Urine Total 150 ml 50 ml # Bowel Movements 1 Labs Test 05/12/20 11:35 05/12/20 12:40 05/12/20 17:34 05/12/20 23:40 Test 05/13/20 05:56 05/13/20 06:18 05/13/20 12:46 05/14/20 04:50 White Blood Count 18.9 K/UL (4.8-10.8) 30.5 K/UL (4.8-10.8) Red Blood Count 3.47 M/UL (4.20-5.40) 3.22 M/UL (4.20-5.40) Hemoglobin 10.7 G/DL (12.0-16.0) 9.9 G/DL (12.0-16.0) Hematocrit 32.8 % (37.0-47.0) 30.8 % (37.0-47.0) Mean Corpuscular Volume 94 FL (80-99) 95 FL (80-99) Mean Corpuscular Hemoglobin 30.8 PG (27.0-31.0) 30.8 PG (27.0-31.0) Mean Corpuscular Hemoglobin Concent 32.6 G/DL (32.0-36.0) 32.2 G/DL (32.0-36.0) Red Cell Distribution Width 15.4 % (11.6-14.8) 14.8 % (11.6-14.8) Platelet Count 57 K/UL (150-450) 54 K/UL (150-450) Mean Platelet Volume 10.4 FL (6.5-10.1) 8.5 FL (6.5-10.1) Neutrophils (%) (Auto) % (45.0-75.0) % (45.0-75.0) Lymphocytes (%) (Auto) % (20.0-45.0) % (20.0-45.0) Monocytes (%) (Auto) % (1.0-10.0) % (1.0-10.0) Eosinophils (%) (Auto) % (0.0-3.0) % (0.0-3.0) Basophils (%) (Auto) % (0.0-2.0) % (0.0-2.0) Differential Total Cells Counted 100 100 Neutrophils % (Manual) 82 % (45-75) 86 % (45-75) Lymphocytes % (Manual) 8 % (20-45) 6 % (20-45) Monocytes % (Manual) 4 % (1-10) 2 % (1-10) Eosinophils % (Manual) 0 % (0-3) 0 % (0-3) Basophils % (Manual) 0 % (0-2) 0 % (0-2) Band Neutrophils 6 % (0-8) 6 % (0-8) Platelet Estimate Decreased Decreased Platelet Morphology Normal Normal Anisocytosis 1+ 1+ Sodium Level 140 MMOL/L (136-145) 142 MMOL/L (136-145) Potassium Level 3.5 MMOL/L (3.5-5.1) 3.0 MMOL/L (3.5-5.1) Chloride Level 107 MMOL/L (98-107) 106 MMOL/L (98-107) Carbon Dioxide Level 24 MMOL/L (21-32) 25 MMOL/L (21-32) Anion Gap 9 mmol/L (5-15) 11 mmol/L (5-15) Blood Urea Nitrogen 37 mg/dL (7-18) 39 mg/dL (7-18) Creatinine 3.8 MG/DL (0.55-1.30) 4.1 MG/DL (0.55-1.30) Estimat Glomerular Filtration Rate 14.3 mL/min (>60) 13.1 mL/min (>60) Glucose Level 211 MG/DL (74-106) 131 MG/DL (74-106) Calcium Level 7.9 MG/DL (8.5-10.1) 7.6 MG/DL (8.5-10.1) Phosphorus Level 2.7 MG/DL (2.5-4.9) 2.7 MG/DL (2.5-4.9) Magnesium Level 1.7 MG/DL (1.8-2.4) 2.1 MG/DL (1.8-2.4) Total Bilirubin 4.5 MG/DL (0.2-1.0) 4.8 MG/DL (0.2-1.0) Direct Bilirubin 4.0 MG/DL (0.0-0.3) 4.7 MG/DL (0.0-0.3) Aspartate Amino Transf (AST/SGOT) 445 U/L (15-37) 407 U/L (15-37) Alanine Aminotransferase (ALT/SGPT) 147 U/L (12-78) 130 U/L (12-78) Alkaline Phosphatase 1114 U/L (46-116) 1210 U/L (46-116) Total Protein 3.6 G/DL (6.4-8.2) 4.1 G/DL (6.4-8.2) Albumin 1.2 G/DL (3.4-5.0) 1.1 G/DL (3.4-5.0) POC Whole Blood Glucose 208 MG/DL (74-106) Hypochromasia 1+ Prothrombin Time 13.6 SEC (9.30-11.50) Prothromb Time International Ratio 1.3 (0.9-1.1) Activated Partial Thromboplast Time 50 SEC (23-33) Lactic Acid Level 1.90 mmol/L (0.4-2.0) Globulin 3.0 g/dL Albumin/Globulin Ratio 0.4 (1.0-2.7) Amylase Level 47 U/L (25-115) Lipase 504 U/L (73-393) Test 05/14/20 10:02 05/14/20 18:13 05/14/20 18:18 05/15/20 06:25 POC Whole Blood Glucose 142 MG/DL (74-106) 179 MG/DL (74-106) White Blood Count 33.3 K/UL (4.8-10.8) 32.2 K/UL (4.8-10.8) Red Blood Count 3.08 M/UL (4.20-5.40) 3.33 M/UL (4.20-5.40) Hemoglobin 9.7 G/DL (12.0-16.0) 10.2 G/DL (12.0-16.0) Hematocrit 28.2 % (37.0-47.0) 31.4 % (37.0-47.0) Mean Corpuscular Volume 92 FL (80-99) 94 FL (80-99) Mean Corpuscular Hemoglobin 31.6 PG (27.0-31.0) 30.8 PG (27.0-31.0) Mean Corpuscular Hemoglobin Concent 34.5 G/DL (32.0-36.0) 32.6 G/DL (32.0-36.0) Red Cell Distribution Width 15.8 % (11.6-14.8) 14.9 % (11.6-14.8) Platelet Count 46 K/UL (150-450) 59 K/UL (150-450) Mean Platelet Volume 14.2 FL (6.5-10.1) 10.1 FL (6.5-10.1) Neutrophils (%) (Auto) % (45.0-75.0) % (45.0-75.0) Lymphocytes (%) (Auto) % (20.0-45.0) % (20.0-45.0) Monocytes (%) (Auto) % (1.0-10.0) % (1.0-10.0) Eosinophils (%) (Auto) % (0.0-3.0) % (0.0-3.0) Basophils (%) (Auto) % (0.0-2.0) % (0.0-2.0) Differential Total Cells Counted 100 Neutrophils % (Manual) 85 % (45-75) Lymphocytes % (Manual) 3 % (20-45) Monocytes % (Manual) 1 % (1-10) Eosinophils % (Manual) 0 % (0-3) Basophils % (Manual) 0 % (0-2) Band Neutrophils 11 % (0-8) Platelet Estimate Decreased Platelet Morphology Normal Polychromasia 1+ Anisocytosis 1+ Sodium Level 141 MMOL/L (136-145) Potassium Level 3.5 MMOL/L (3.5-5.1) Chloride Level 106 MMOL/L (98-107) Carbon Dioxide Level 21 MMOL/L (21-32) Anion Gap 14 mmol/L (5-15) Blood Urea Nitrogen 44 mg/dL (7-18) Creatinine 4.6 MG/DL (0.55-1.30) Estimat Glomerular Filtration Rate 11.4 mL/min (>60) Glucose Level 210 MG/DL (74-106) Calcium Level 7.5 MG/DL (8.5-10.1) Phosphorus Level 3.9 MG/DL (2.5-4.9) Magnesium Level 2.1 MG/DL (1.8-2.4) Total Bilirubin 5.6 MG/DL (0.2-1.0) Direct Bilirubin 5.1 MG/DL (0.0-0.3) Aspartate Amino Transf (AST/SGOT) 298 U/L (15-37) Alanine Aminotransferase (ALT/SGPT) 118 U/L (12-78) Alkaline Phosphatase 1260 U/L (46-116) Total Protein 4.7 G/DL (6.4-8.2) Albumin 1.3 G/DL (3.4-5.0) Height (Feet): 5 Height (Inches): 7.00 Weight (Pounds): 130 Objective Subjective Subjective HEENT: Denies: no symptoms, eye pain, blurred vision, tearing, double vision, ear pain, ear discharge, nose pain, nose congestion, throat pain, throat swelling, mouth pain, mouth swelling, other Cardiovascular: Denies: no symptoms, chest pain, edema, irregular heart rate, l ightheadedness, palpitations, syncope, other Gastrointestinal/Abdominal: Denies: no symptoms, abdomen distended, abdominal pain, black stools, tarry stools, blood in stool, constipated, diarrhea, difficulty swallowing, nausea, poor appetite, poor fluid intake, rectal bleeding, vomiting, other Genitourinary: Denies: no symptoms, burning, discharge, frequency, flank pain, hematuria, incontinence, pain, urgency, other Neurologic/Psychiatric: Denies: no symptoms, anxiety, depressed, emotional problems, headache, numbness, paresthesia, pre-existing deficit, seizure, tingli ng, tremors, weakness, other Endocrine: Denies: no symptoms, excessive sweating, flushing, intolerance to cold, intolerance to heat, increased hunger, increased thirst, increased urine, unexplained weight gain, unexplained weight loss, other Hematologic/Lymphatic: Denies: no symptoms, anemia, easy bleeding, easy bruising, adenopathy, other Merry Muro NP May 15, 2020 10:21
--- NOTE | 2020-05-15 11:00 | NUR ---
RD ASSESSMENT & RECOMMENDATIONS SEE CARE ACTIVITY FOR COMPLETE ASSESSMENT DAILY ESTIMATED NEEDS: Needs based on Wound, JYOTI + HD initiated/ 59kg 30-35 kcals/kg [id number] total kcals 1.25-1.8 (w/ HD) g protein/kg 74-106 g total protein 20-25 mL/kg 2798-8068 total fluid mLs NUTRITION DIAGNOSIS: * Swallowing difficulty R/T dysphagia as evidenced by MINIATURE SET CONSTRUCTOR recommends pureed moist texture w/ NTL, now NPO, w/ NGT in place, PEG planned. * Increased kcal/prot/micronutrients needs R/T wound healing as evidenced by pt admitted w/ multiple wounds, including unstageable wounds @ sacrum, L heel, stage 2 wound @ lt ischium, DTI wound @ R heel. * Altered nutrition related lab values R/T h/o DM, pt on steroidal med, JYOTI as evidenced by elev BGs (200's-300's), elev creat (6.1 trending up). CURRENT TF:NOW MADE NPO ENTERAL NUTRITION RECOMMENDATIONS: Nepro w/ goal of 45ml/hr x24 hrs to provide 1080ml, 1944 kcal, 87g pro, 785ml free H2O - Resume TF as medically appropriate - Start Nepro @ 15ml/hr x 6hrs, increase 10ml q 4-6 hrs as tolerated to goal rate. . - Flush per , HOB over 30 degrees ADDITIONAL RECOMMENDATIONS: * Calibrated bedscale wt * Wound healing:Add Nephrovite x1, Vit C dosing per nephro Dedrick BID w/ diet order, ZnSO4 220mg QD x 10 days * W/ TF, rec increasing insulin for improved BG control * Monitor renal fxn and for continuity of HD, monitor lytes * Monitor T bili and LFTs, rising at this time .
[2020-05-15 12:00] VITALS: BP 127/78
--- NOTE | 2020-05-15 15:37 | Surgery Progress Note ---
Surgery Progress Note Subjective Additional Comments leukocytosis plt noted liver worsening hida noted discussed with family and medical team Objective Last 24 Hour Vital Signs Date Time Temp Pulse Resp B/P (MAP) Pulse Ox O2 Delivery O2 Flow Rate FiO2 05/15/20 13:15 78 05/15/20 12:00 97.6 79 21 127/78 (94) 99 05/15/20 09:00 Room Air 05/15/20 08:00 81 05/15/20 08:00 97.8 87 24 133/77 (95) 96 05/15/20 04:00 76 05/15/20 04:00 97.9 83 20 122/70 (87) 96 05/15/20 00:00 76 05/15/20 00:00 97.6 84 20 142/81 (101) 96 05/14/20 21:00 Room Air 05/14/20 20:00 79 05/14/20 20:00 97.6 72 20 121/65 (83) 96 05/14/20 16:00 98.8 78 20 148/78 (101) 96 05/14/20 16:00 77 I&O Intake and Output 05/14/20 05/15/20 19:00 07:00 Output Total 150 ml 50 ml Balance -150 ml -50 ml Output Urine Total 150 ml 50 ml # Bowel Movements 1 Dressing: other Wound: other Cardiovascular: RSR Respiratory: decreased breath sounds Abdomen: soft, non-tender, non-distended, decreased bowel sounds Extremities: no tenderness, no cyanosis, other Laboratory Tests Test 05/14/20 18:13 05/14/20 18:18 05/15/20 06:25 POC Whole Blood Glucose 179 MG/DL (74-106) H White Blood Count 33.3 K/UL (4.8-10.8) *H 32.2 K/UL (4.8-10.8) *H Red Blood Count 3.08 M/UL (4.20-5.40) L 3.33 M/UL (4.20-5.40) L Hemoglobin 9.7 G/DL (12.0-16.0) L 10.2 G/DL (12.0-16.0) L Hematocrit 28.2 % (37.0-47.0) L 31.4 % (37.0-47.0) L Mean Corpuscular Volume 92 FL (80-99) 94 FL (80-99) Mean Corpuscular Hemoglobin 31.6 PG (27.0-31.0) H 30.8 PG (27.0-31.0) Mean Corpuscular Hemoglobin Concent 34.5 G/DL (32.0-36.0) 32.6 G/DL (32.0-36.0) Red Cell Distribution Width 15.8 % (11.6-14.8) H 14.9 % (11.6-14.8) H Platelet Count 46 K/UL (150-450) L 59 K/UL (150-450) L Mean Platelet Volume 14.2 FL (6.5-10.1) H 10.1 FL (6.5-10.1) Neutrophils (%) (Auto) % (45.0-75.0) % (45.0-75.0) Lymphocytes (%) (Auto) % (20.0-45.0) % (20.0-45.0) Monocytes (%) (Auto) % (1.0-10.0) % (1.0-10.0) Eosinophils (%) (Auto) % (0.0-3.0) % (0.0-3.0) Basophils (%) (Auto) % (0.0-2.0) % (0.0-2.0) Differential Total Cells Counted 100 100 Neutrophils % (Manual) 85 % (45-75) H 86 % (45-75) H Lymphocytes % (Manual) 3 % (20-45) L 6 % (20-45) L Monocytes % (Manual) 1 % (1-10) 3 % (1-10) Eosinophils % (Manual) 0 % (0-3) 0 % (0-3) Basophils % (Manual) 0 % (0-2) 0 % (0-2) Band Neutrophils 11 % (0-8) H 5 % (0-8) Platelet Estimate Decreased L Decreased L Platelet Morphology Normal Normal Polychromasia 1+ Anisocytosis 1+ 1+ Hypochromasia 1+ Sodium Level 141 MMOL/L (136-145) Potassium Level 3.5 MMOL/L (3.5-5.1) Chloride Level 106 MMOL/L (98-107) Carbon Dioxide Level 21 MMOL/L (21-32) Anion Gap 14 mmol/L (5-15) Blood Urea Nitrogen 44 mg/dL (7-18) H Creatinine 4.6 MG/DL (0.55-1.30) H Estimat Glomerular Filtration Rate 11.4 mL/min (>60) Glucose Level 210 MG/DL (74-106) H Calcium Level 7.5 MG/DL (8.5-10.1) L Phosphorus Level 3.9 MG/DL (2.5-4.9) Magnesium Level 2.1 MG/DL (1.8-2.4) Total Bilirubin 5.6 MG/DL (0.2-1.0) H Direct Bilirubin 5.1 MG/DL (0.0-0.3) H Aspartate Amino Transf (AST/SGOT) 298 U/L (15-37) H Alanine Aminotransferase (ALT/SGPT) 118 U/L (12-78) H Alkaline Phosphatase 1260 U/L (46-116) H Total Protein 4.7 G/DL (6.4-8.2) L Albumin 1.3 G/DL (3.4-5.0) L Plan Problems: (1) UTI (urinary tract infection) (2) JYOTI (acute kidney injury) (3) Hyperkalemia (4) Leukocytosis Assessment & Plan: dvt upper extremity picc related remove picc once temp line in anticoag as per heme worsening leukocytosis on abx acute hepatic insufficiency unfortunately prognosis very guarded (5) Sepsis (6) Altered mental status (7) Sacral decubitus ulcer Assessment & Plan: 69-year-old female multiple comorbidities presented with failure to thrive lethargic altered mental status noted to have abnormal labs and have draining bilateral heel unstageable decubitus ulcers multiple skin lesions on the lower extremities as well as a sacral decubitus ulcer as well. Imaging reviewed. Patient has been eating less recently but currently is eating at the bedside though does not look like she is taking much in. Treatment plan Turn every 2 hours Offload pressure with pillows pillow on side as necessary as well as underneath calf to elevate heels Air soft mattress nutritional optimization continue IV antibiotics per infectious disease SACRUM- STAGE - UNSTAGEABLE PRESSURE ULCER MEASURES 6.0X13.0X0.2. WOUND BED WITH 80% SLOUGH AND 20% PINK GRANULATION TISSUE. NOTED FOUL ODOR RECOMMEND-CLEAN WITH SALINE. APPLY WET TO DRY DRESSINGS WITH DAKINS 0.25% DAKIN'S SOLUTION.COVER WITH OPTIFOAM DRESSING. REPLACE DRESSING DAILY. LEFT ISCHIUM-STAGE II PRESSURE ULCER MEASURES 4.5X0.5X0.2CM. PINK GRANULATION TISSUE NOTED. RECOMMEND- CLEAN WITH SALINE, PAT DRY. APPLY CALAZINE AND COVER WITH OPTIFOAM DRESSING. LEFT ANTERIOR LOW LEG-VENOUS ULCER MEASURES 8.0X2.6X0.2CM 100% YELLOW SLOUGH NOTED TO WOUND BED. RECOMMEND- CLEAN WITH SALINE, PA DRY. APPLY THERAHONEY. COVER WITH GAUZE AND SECURE WITH KERLIX. REPLACE DRESSING DAILY. LEFT HEEL- UNSTAGEABLE PRESSURE ULCER MEASURES 9.5X8.0X0.3CM. 100% MOIST BLACK ESCHAR. WITH STRONG FOUL ODOR. RECOMMEND- CLEAN WITH SALINE. APPLY WET TO DRY DRESSINGS WITH DAKINS 0.25% DAKIN'S SOLUTION. COVER WITH GAUZE, ABD PAD AND SECURE WITH KERLIX. REPLACE DAILY. RIGHT ANTERIOR LOW LEG-VENOUS ULCER MEASURES 2.5X3.0X0.2CM WITH PINK GRANULATION TISSUE. RIGHT ANTERIOR DISTAL LOW LEG -VENOUS ULCER MEASURES 1.5X0.2X0.1CM WITH PINK GRANULATION TISSUE. RECOMMEND-CLEAN WITH SALINE PAT DRY. APPLY XEROFORM GAUZE, GAUZE AND COVER WITH KERLIX. REPLACE DAILY RIGHT HEEL-DTI MEASURES 2.5X3.0CM. AREA DARK PURPLE IN COLOR AND BOGGY TO TOUCH. NO DRAINAGE NOTED. RECOMMEND- PAINT WITH CAVILON SKIN PROTECTOR, GAUZE AND WRAP WITH KERLIX. REPLACE DAILY. We will follow with recommendations thank you for letting participate patient's care Fairly numerous bubbles of soft tissue gas are seen within the subcutaneous fat and possibly the intrinsic musculature of the plantar surface of the heel. There is high STIR and decreased T1 signal within the calcaneus, and there is indistinctness of the inferior and posterior cortical margins of the calcaneus. There is some soft tissue ulceration of the plantar surface of the heel, as well as marked thinning of the subcutaneous fat overlying the calcaneal tuberosity. There is considerable edema of the plantar surface subcutaneous fat. There is also edema of the subcutaneous fat of the lateral and medial ankle. No focal discrete fluid collection to suggest drainable abscess demonstrated. Impression: Evidence of ulceration overlying the calcaneal tuberosity Soft tissue gas within the heel, as described. This may represent penetration t he above, but is worrisome for infection with a gas-forming organism Abnormal signal within the posterior and mid calcaneus, highly suspicious for acute osteomyelitis (8) Decubitus ulcer of heel (9) Diabetes mellitus out of control (10) Acute on chronic renal failure (11) NSTEMI (non-ST elevated myocardial infarction) (12) High anion gap metabolic acidosis (13) Choledocholithiasis Assessment & Plan: pending plt transfusion repeat labs in am needs EGD +/- peg PEG canceled given low PLT resume NGTF plan peg next week Unremarkable inferior vena cava. There is bilateral pleural fluid. Gallbladder demonstrates sludge. No definite gallstones. Gallbladder wall is thickened, measuring up to 3 mm thick, and there is pericholecystic edema. Patient unable to report sonographic Garcia's sign. Common bile duct measures 3 mm in diameter. No intrahepatic biliary ductal dilatation. Liver demonstrates normal echogenicity, no focal abnormality. Portal vein and hepatic veins are patent. There is trace ascites fluid. Pancreas is unremarkable. Spleen is unremarkable. Left kidney measures 11.4 cm in length. Right kidney measures 11.1 cm length. Both kidneys demonstrate slightly increased echogenicity. There is no hydron ephrosis. No focal abnormality . Non-aneurysmal abdominal aorta . Impression: Ascites fluid Bilateral pleural effusions Negative for gallstones. Small amount of gallbladder sludge noted. Gallbladder wall thickening and pericholecystic edema is probably related to what ever process is causing the pleural fluid and ascites. Possibility of acute acalculous cholecystitis should also be considered, however. Echogenic kidneys, consistent with medical renal disease worsening overall unfortunately declining severe possible jeremy acalculous. but possible related to liver insufficiency high risk for bleeding and procedure recommend comfort measures (14) DVT (deep venous thrombosis) Joseph Alamo May 15, 2020 15:37
[2020-05-15 16:00] VITALS: BP 151/79
[2020-05-15] MEDS: Morphine Sulfate 2mg/ml Inj(IV/IM USE ONLY) IVP PRN (16:39)
--- NOTE | 2020-05-15 18:00 | General Progress Note ---
Subjective Allergies: Coded Allergies: PENICILLINS (Verified Allergy, Unknown, 12/05/17) Subjective confused, non communicative d/w RN, doing poorly off feeds US and CARLITOS noted - d/w surgery scant amount of BRBPR, per RN LFT rising, WBC rising d/w patient sister piter Tello poor health sister advised re COVD (+), sepsis, liver failure, thrombocytopenia, and expected Family want to continue DNR/DNI, do not want invasive or heroic measures, and understand patient may soon Objective Last 24 Hour Vital Signs Date Time Temp Pulse Resp B/P (MAP) Pulse Ox O2 Delivery O2 Flow Rate FiO2 05/15/20 17:09 97.6 05/15/20 13:15 78 05/15/20 12:00 97.6 79 21 127/78 (94) 99 05/15/20 09:00 Room Air 05/15/20 08:00 81 05/15/20 08:00 97.8 87 24 133/77 (95) 96 05/15/20 04:00 76 05/15/20 04:00 97.9 83 20 122/70 (87) 96 05/15/20 00:00 76 05/15/20 00:00 97.6 84 20 142/81 (101) 96 05/14/20 21:00 Room Air 05/14/20 20:00 79 05/14/20 20:00 97.6 72 20 121/65 (83) 96 Intake and Output 05/14/20 05/15/20 19:00 07:00 Output Total 150 ml 50 ml Balance -150 ml -50 ml Output Urine Total 150 ml 50 ml # Bowel Movements 1 Laboratory Tests 05/14/20 18:13: POC Whole Blood Glucose 179H 05/14/20 18:18: White Blood Count 33.3*H, Red Blood Count 3.08L, Hemoglobin 9.7L, Hematocrit 28.2L, Mean Corpuscular Volume 92, Mean Corpuscular Hemoglobin 31.6H, Mean Corpuscular Hemoglobin Concent 34.5, Red Cell Distribution Width 15.8H, Platelet Count 46L, Mean Platelet Volume 14.2H, Neutrophils (%) (Auto) , Lymphocytes (%) (Auto) , Monocytes (%) (Auto) , Eosinophils (%) (Auto) , Basophils (%) (Auto) , Differential Total Cells Counted 100, Neutrophils % (Manual) 85H, Lymphocytes % (Manual) 3L, Monocytes % (Manual) 1, Eosinophils % (Manual) 0, Basophils % (Manual) 0, Band Neutrophils 11H, Platelet Estimate DecreasedL, Platelet Morphology Normal, Polychromasia 1+, Anisocytosis 1+ 05/15/20 06:25: White Blood Count 32.2*H, Red Blood Count 3.33L, Hemoglobin 10.2L, Hematocrit 31.4L, Mean Corpuscular Volume 94, Mean Corpuscular Hemoglobin 30.8, Mean Corpuscular Hemoglobin Concent 32.6, Red Cell Distribution Width 14.9H, Platelet Count 59L, Mean Platelet Volume 10.1, Neutrophils (%) (Auto) , Lymphocytes (%) (Auto) , Monocytes (%) (Auto) , Eosinophils (%) (Auto) , Basophils (%) (Auto) , Differential Total Cells Counted 100, Neutrophils % (Manual) 86H, Lymphocytes % (Manual) 6L, Monocytes % (Manual) 3, Eosinophils % (Manual) 0, Basophils % (Manual) 0, Band Neutrophils 5, Platelet Estimate DecreasedL, Platelet Morphology Normal, Anisocytosis 1+, Hypochromasia 1+, Sodium Level 141, Potassium Level 3.5, Chloride Level 106, Carbon Dioxide Level 21, Anion Gap 14, Blood Urea Nitrogen 44H, Creatinine 4.6H, Estimat Glomerular Filtration Rate 11.4, Glucose Level 210H, Calcium Level 7.5L, Phosphorus Level 3.9, Magnesium Level 2.1, Total Bilirubin 5.6H, Direct Bilirubin 5.1H, Aspartate Amino Transf (AST/SGOT) 298H, Alanine Aminotransferase (ALT/SGPT) 118H, Alkaline Phosphatase 1260H, Total Protein 4.7L, Albumin 1.3L Height (Feet): 5 Height (Inches): 7.00 Weight (Pounds): 130 Objective Elderly woman non communicative (+) NGT Coarse BS RRR abd soft ND no edema OBS Assessment/Plan Assessment/Plan: Assessment: Progressive leukocytosis / sepsis - poor prognosis abnormal LFT - multifactorial - sepsis/COVID/ishcemia/?cholecystittis osteomyelitis Renal failure Severe thrombocytopenia - poor candidate for intervention Rectal bleeding, ? ischemic colitis DM - poor COVID prognosis COVID Pneumonia, bilateral dysphagia / NGT Dementia Recommendations: supportive care abx per ID PPI check CT scan of abd/pelvis, although options for treatment are limited follow labs poor prognosis - family do understand patient may soon IdaniaorrEze jauregui MD May 15, 2020 17:59
--- NOTE | 2020-05-15 19:15 | NUR ---
NURSE HAND-OFF REPORT: Important Events on Shift: patient is still slowly actively bleeding, monitoring bleeding and MD aware Patient Status: DNI/DNR, stable condition, breathing unlabored and even, aspiration precautions instituted, NGT in place Diet: NPO Pending Orders: [] Pending Results/Labs:[] Pending MD notification:[] Latest Vital Signs: Temperature 97.6 , Pulse 80 , B/P 151 /79 , Respiratory Rate 20 , O2 SAT 98 , Room Air, O2 Flow Rate 3.0 . Vital Sign Comment: [] EKG Rhythm: Sinus Rhythm Rhythm change?: N MD Notified?: - MD Response: Latest Hernandez Fall Score: 70 Fall Risk: High Risk Safety Measures: Call light Within Reach, Bed Alarm Zone 1, Side Rails Side Rails x3, Bed position Low and Locked. Fall Precautions: Yellow Socks Yellow Gown Door Sign Patient Fall Education Report given to Daniel Johnson RN.
--- NOTE | 2020-05-15 19:30 | NUR ---
NURSE NOTES: Receive a report from ZACH Rasmussen. Noted spontaneous eye opening noted but could not express verbally except moaning. No respiratory distress noted. NG-tube inserted state on right nare 55cm. Pt is planning on abdominal-pelvis CT with contrast. Requested to administer oral dye via NG-tube. No residue noted. On hematuria via alaniz catheter small amount. IV is running via right IJ quintto catheter. On bed bound and on SAFIA mattress. Will continue to monitor closely.
[2020-05-15 20:00] VITALS: BP 166/80
--- NOTE | 2020-05-15 20:17 | General Progress Note ---
Subjective Allergies: Coded Allergies: PENICILLINS (Verified Allergy, Unknown, 12/05/17) Subjective No acute events overnight per nursing. Patient continues to slowly bleed in Vargas catheter and having Tylenol although overall improving. Hemodynamically stable. White count still in the 30,000. HIDA scan showing liver failure. Unable to obtain ROS due to ALOC Objective Last 24 Hour Vital Signs Date Time Temp Pulse Resp B/P (MAP) Pulse Ox O2 Delivery O2 Flow Rate FiO2 05/15/20 17:09 97.6 05/15/20 16:00 80 05/15/20 16:00 97.5 78 20 151/79 (103) 98 05/15/20 13:15 78 05/15/20 12:00 97.6 79 21 127/78 (94) 99 05/15/20 09:00 Room Air 05/15/20 08:00 81 05/15/20 08:00 97.8 87 24 133/77 (95) 96 05/15/20 04:00 76 05/15/20 04:00 97.9 83 20 122/70 (87) 96 05/15/20 00:00 76 05/15/20 00:00 97.6 84 20 142/81 (101) 96 05/14/20 21:00 Room Air Intake and Output 05/14/20 05/15/20 19:00 07:00 Output Total 150 ml 50 ml Balance -150 ml -50 ml Output Urine Total 150 ml 50 ml # Bowel Movements 1 Laboratory Tests 05/15/20 06:25: White Blood Count 32.2*H, Red Blood Count 3.33L, Hemoglobin 10.2L, Hematocrit 31.4L, Mean Corpuscular Volume 94, Mean Corpuscular Hemoglobin 30.8, Mean Corpuscular Hemoglobin Concent 32.6, Red Cell Distribution Width 14.9H, Platelet Count 59L, Mean Platelet Volume 10.1, Neutrophils (%) (Auto) , Lymphocytes (%) (Auto) , Monocytes (%) (Auto) , Eosinophils (%) (Auto) , Basophils (%) (Auto) , Differential Total Cells Counted 100, Neutrophils % (Manual) 86H, Lymphocytes % (Manual) 6L, Monocytes % (Manual) 3, Eosinophils % (Manual) 0, Basophils % (Manual) 0, Band Neutrophils 5, Platelet Estimate DecreasedL, Platelet Morphology Normal, Hypochromasia 1+, Anisocytosis 1+, Sodium Level 141, Potassium Level 3.5, Chloride Level 106, Carbon Dioxide Level 21, Anion Gap 14, Blood Urea Nitrogen 44H, Creatinine 4.6H, Estimat Glomerular Filtration Rate 11.4, Glucose Level 210H, Calcium Level 7.5L, Phosphorus Level 3.9, Magnesium Level 2.1, Total Bilirubin 5.6H, Direct Bilirubin 5.1H, Aspartate Amino Transf (AST/SGOT) 298H, Alanine Aminotransferase (ALT/SGPT) 118H, Alkaline Phosphatase 1260H, Total Protein 4.7L, Albumin 1.3L Height (Feet): 5 Height (Inches): 7.00 Weight (Pounds): 130 Objective General: WDWN female in NAD, A&O x 0 (baseline is A&o x 1), awake, alert, in no acute distress HEENT: Normocephalic cephalic atraumatic, pupils equal round reactive to light and accommodation, nares patent and no symmetrical, no tonsillar exudates, mucous membranes moist CV: Regular rate regular rhythm, no murmurs, rubs, or gallops Pulm: Lungs clear to auscultation bilaterally. No wheezes, rhonchi, or rales GI: Soft, Non TTP in RUQ nondistended, bowel sounds present Neuro: CN 2-12 intact bilaterally, no focal signs. Ext: No lower extremity edema bilaterally. LUE 1-2+ edema Skin: no rashes lesions or ulcers Msk: Joints symmetrical in upper extremity and lower extremity bilaterally, no joint swelling. Lymph: No lymphadenopathy in upper extremity and lower extremity Assessment/Plan Assessment/Plan: This is a 69-year-old female presenting with acute encephalopathy, JYOTI, acute UTI; now ESRD on HD, Encephalopathic w/ Dysphagia and Chronic Osteo: #Sepsis due to possible Cholangitis #Severe hepatocyte dysfunction, concern for liver failure ? etiology. COVID? #Transaminitis due to liver failure > - HIDA scan reviewed - Appreciate surgery input: D/w Dr. Alamo - Liver failure. No surgical interventions at this point - Appreciate GI Input: D/w Dr. Hay - defer further procedures/imaging to GI and Surgery and discussion of risks/benefits with patient's sister - Sister Elisha (medical decision maker), understands grave prognosis and ok with current medical treatment but would not like further procedures if could cause harm. Surgery explained to Elisha that all procedures carry risk and not guaranteed any procedure will help cure her. #Thrombocytopenia #Anemia of Chronic Dx #Acute blood loss anemia #melena #hematuria -Appreciate Heme -Transfuse platelets to maintain above 15 to avoid ICH or above 50 if active bleeding -Transfuse for HGB less than 7 -HIT panel pending -Trend CBC - 1unit platelets again today. Consent obtained from Elisha #Acute Renal Failure now ESRD requiring HD s/p Doyle --> ATN? Normal Renal US -Appreciate Nephro; S/P Fluid Challenge -Will order Permcath Placement--> on hold 2/ thrombocytopenia -Continue HD as scheduled; Midodrine prn Hypotension -Continue Sodium Bicarb Tabs #hypokalemia - replete PRN #Acute on chronic Metabolic Encephalopathy Exacerbated by Dementia #Dysphagia 2/ Above -Appreciate Neuro, CTH WNL -Avoid Sedating Medications -Pending PEG tube placement per GI --> on hold 06/15 thrombocytopenia -Tube Feeding for now #DMII - ISS, Add long acting prn - lantus 5 units daily #LLE Osteo-Appreciate ID #[email or web address] -Cultures noted; S/P Broad Spectrum AB -Current AB: Cefepime/Flagyl/Doxy until 05/24 #COVID positive - asymptomatic - CTM - ID consult if needed #EDENILSON DVT -venous duplex US reviewed -appreciate heme recommendations -off A/C due to bleeding -CTM FENPPX DVTPPX: HSQ (holding due to low platelets) Fluids: as above Diet: pending PEG Lines: PIV, LUE PICC PT/OT: pending Code status: Full per SNF Dispo: back to SNF Reason for Continued Hospitalization: jyoti, bleeding MIPS ([employer]-based Incentive Payment System) Applicable CPT: 72015, 83241 CHECK ALL THAT ARE MET: [] Measure #5 (CHF): All ages. Prescribe DESTINEY/ARB upon discharge for patients with left ventricular systolic dysfunction. If not, the reason is clearly documented in the medical chart [] Measure #8 (CHF): All ages. Prescribe a beta jennifer upon discharge for pat ients with left ventricular systolic dysfunction. If not, the reason is clearly documented in the medical chart. [] Measure #47: Advance care plan or surrogate decision maker documented in the medical record. [x] Measure #130 The provider has documented, updated, or reviewed the patients current medication list and has documented it in the patients note. [x] Measure #374 (All): Send report to referring provider. [] Measure #407(Sepsis due to MSSA bacteremia): Age 18+ Patient treated with a beta-lactam antibiotic (Nafcillin, Oxacillin or Cefazolin) as definitive therapy. MEDICAL COMPLEXITYHigh complexity medical decision making (need 2/3 categories)Problem - need 4 points [x]Acute/new problem with new plan for workup (4 points, 1 max) [] Acute/new problem without additional workup (3 points, 1 max) [x] Unstable chronic problem actively being managed (2 point each, 2 max) [x] Stable chronic problem actively being managed (1 point each, 2 max) [x] Self-limited/transient process (constipation, muscle ache, etc) (1 point each, 2 max) Data - need 4 points [x] Reviewed labs/imaging studies (1 points, 2 max) [x] Independent review of imaging (EKG, xrays, etc) (2 points, 2 max) [x] Discussed case with consult/other MD/RN (2 points, 2 max) High Risk - qualify if have one of the following: [] Severe exacerbation of acute problem, acute mental status change, IV narcoti cs, monitoring drug levels (vancomycin, INR, tacrolimus etc) I spent 40 minutes on this patient's case, and 22 mins was dedicated to counseling and/or care coordination. Discussed with nephro, ID, gen surgery, neurology. Time of note may not reflect time of encounter Patrick Cerda D.O. May 15, 2020 20:17
--- NOTE | 2020-05-15 20:29 | Neurology Progress Note ---
Interim History Interim History ROS Limited/Unobtainable: Yes Interim History remains somnolent, no new deficits Objective Physical Exam Last Vital Signs Date Time Temp Pulse Resp B/P (MAP) Pulse Ox O2 Delivery O2 Flow Rate FiO2 05/15/20 17:09 97.6 05/15/20 16:00 80 05/15/20 16:00 20 151/79 (103) 98 05/15/20 09:00 Room Air Laboratory Tests Test 05/15/20 06:25 White Blood Count 32.2 K/UL (4.8-10.8) *H Red Blood Count 3.33 M/UL (4.20-5.40) L Hemoglobin 10.2 G/DL (12.0-16.0) L Hematocrit 31.4 % (37.0-47.0) L Mean Corpuscular Volume 94 FL (80-99) Mean Corpuscular Hemoglobin 30.8 PG (27.0-31.0) Mean Corpuscular Hemoglobin Concent 32.6 G/DL (32.0-36.0) Red Cell Distribution Width 14.9 % (11.6-14.8) H Platelet Count 59 K/UL (150-450) L Mean Platelet Volume 10.1 FL (6.5-10.1) Neutrophils (%) (Auto) % (45.0-75.0) Lymphocytes (%) (Auto) % (20.0-45.0) Monocytes (%) (Auto) % (1.0-10.0) Eosinophils (%) (Auto) % (0.0-3.0) Basophils (%) (Auto) % (0.0-2.0) Differential Total Cells Counted 100 Neutrophils % (Manual) 86 % (45-75) H Lymphocytes % (Manual) 6 % (20-45) L Monocytes % (Manual) 3 % (1-10) Eosinophils % (Manual) 0 % (0-3) Basophils % (Manual) 0 % (0-2) Band Neutrophils 5 % (0-8) Platelet Estimate Decreased L Platelet Morphology Normal Hypochromasia 1+ Anisocytosis 1+ Sodium Level 141 MMOL/L (136-145) Potassium Level 3.5 MMOL/L (3.5-5.1) Chloride Level 106 MMOL/L (98-107) Carbon Dioxide Level 21 MMOL/L (21-32) Anion Gap 14 mmol/L (5-15) Blood Urea Nitrogen 44 mg/dL (7-18) H Creatinine 4.6 MG/DL (0.55-1.30) H Estimat Glomerular Filtration Rate 11.4 mL/min (>60) Glucose Level 210 MG/DL (74-106) H Calcium Level 7.5 MG/DL (8.5-10.1) L Phosphorus Level 3.9 MG/DL (2.5-4.9) Magnesium Level 2.1 MG/DL (1.8-2.4) Total Bilirubin 5.6 MG/DL (0.2-1.0) H Direct Bilirubin 5.1 MG/DL (0.0-0.3) H Aspartate Amino Transf (AST/SGOT) 298 U/L (15-37) H Alanine Aminotransferase (ALT/SGPT) 118 U/L (12-78) H Alkaline Phosphatase 1260 U/L (46-116) H Total Protein 4.7 G/DL (6.4-8.2) L Albumin 1.3 G/DL (3.4-5.0) L Impression/Recommendations Problems: (1) Sepsis (2) Hyperkalemia (3) Leukocytosis (4) Altered mental status (5) Diabetes mellitus out of control (6) Acute on chronic renal failure (7) NSTEMI (non-ST elevated myocardial infarction) (8) High anion gap metabolic acidosis (9) Sacral decubitus ulcer (10) Decubitus ulcer of heel (11) UTI (urinary tract infection) (12) JYOTI (acute kidney injury) Diagnostic Impression acute metabolic encephalopathy jyoti sepsis baseline dementia cont ivfs delirium precautions no need for mri brain cont atThee Olivas MD May 15, 2020 20:29
--- NOTE | 2020-05-15 20:30 | NUR ---
NURSE NOTES: New orders noted for transfusion-platelet. Confirm with on-call MD to transfuse 1 unit. Will continue to follow up.
[2020-05-15] MEDS: Dyna-Hex 2% Top Sol 2oz TOPIC SCH (20:48)
--- NOTE | 2020-05-15 21:30 | NUR ---
NURSE NOTES: Pt went down to CT accompanied by RN via hospital bed.
--- NOTE | 2020-05-15 22:10 | NUR ---
NURSE NOTES: Pt came back from CT. No acute distress noted. Noted generalized edema on both arms and legs. Elevated with pillow. Dressing on both legs kept dry and intact.
--- NOTE | 2020-05-15 22:19 | Diagnostic Imaging Report ---
EXAM: CT Abdomen and Pelvis Without Intravenous Contrast CLINICAL HISTORY: ABN LABS TECHNIQUE: Axial computed tomography images of the abdomen and pelvis without intravenous contrast. CTDI is 6.6 mGy and DLP is 356.80 mGy-cm. One or more of the following dose reduction techniques were used: automated exposure control, adjustment of the mA and/or kV according to patient size, use of iterative reconstruction technique. COMPARISON: Chest radiograph dated 05/15/2020. FINDINGS: Limitations: Limited evaluation due to lack of intravenous contrast. Lung bases: Patchy bilateral groundglass airspace opacities. Pleural space: Mild to moderate bilateral pleural effusions with associated compressive atelectasis. ABDOMEN: Liver: Unremarkable. Gallbladder and bile ducts: Unremarkable. No calcified stones. No ductal dilation. Pancreas: Unremarkable. No ductal dilation. Spleen: Unremarkable. No splenomegaly. Adrenals: Unremarkable. No mass. Kidneys and ureters: Unremarkable. No obstructing stones. No hydronephrosis. Stomach and bowel: Oral contrast is seen within the small bowel. This progresses to the proximal transverse colon. No obstruction. No mucosal thickening. PELVIS: Appendix: No findings to suggest acute appendicitis. Bladder: Vargas catheter within a decompressed urinary bladder. No stones. Reproductive: Unremarkable as visualized. ABDOMEN and PELVIS: Intraperitoneal space: Mild amount of free fluid within the posterior cul-de-sac. No free air. Bones/joints: Postsurgical changes of the left femur. Moderately severe degenerative changes of the bilateral femoral acetabular joints. No acute fracture. No dislocation. Soft tissues: Diffuse anasarca. Partially visualized heterogeneous soft tissue mass of the right inner thigh measuring 8.3 x 9.7 cm. Vasculature: Atherosclerotic vascular and coronary artery disease. Lymph nodes: Unremarkable. No enlarged lymph nodes. Tubes, lines and devices: Enteric tube within the stomach. IMPRESSION: 1. Partially visualized heterogeneous mass of the right inner thigh measuring up to 9.7 cm. This may represent benign etiology such as hematoma with underlying malignant process not excluded. Recommend clinical correlation for prior history of trauma. Further evaluation with MRI can be considered as clinically indicated. 2. Mild to moderate bilateral pleural effusions with associated compressive atelectasis. 3. Patchy bilateral ground glass airspace opacities, suspicious for atypical infectious process in the appropriate clinical setting. Differential also includes pulmonary edema. 4. Diffuse anasarca. 5. Enteric tube and Vargas catheter within place.
--- NOTE | 2020-05-15 22:30 | NUR ---
NURSE NOTES: Confirm with Blood bank for platelet transfusion and will be delivered from [facility].Waiting for call back when blood is ready.
[2020-05-16] VITALS: BP 180/93
[2020-05-16] MEDS: D5NS 1,000 ML IV SCH (00:51)
[2020-05-16] MEDS: Morphine Sulfate 2mg/ml Inj(IV/IM USE ONLY) IVP PRN (00:51)
--- NOTE | 2020-05-16 02:20 | NUR ---
NURSE NOTES: Transfusion 1unit started after cross checking with other RN.
--- NOTE | 2020-05-16 03:30 | NUR ---
NURSE NOTES: No side effects noted after starting 15 min and transfusion finished. No adverse reactions noted. VSS are stable. Will continue to monitor.
[2020-05-16 04:00] VITALS: BP 164/92
--- NOTE | 2020-05-16 04:30 | NUR ---
NURSE NOTES: Pt had mucoid blood clots moderate amount BM. Clean up and changed dressing on sacrum pressure injuries. Noted blood oozing on sacrum site. Noted right upper thigh skin abrasion where alaniz catheter is placed. Clean up with saline. Apply with opticform. Will continue to monitor.
[2020-05-16] MEDS: NovoLOG Insulin Flexpen SUBQ SCH ×4 (06:00→18:00)
--- NOTE | 2020-05-16 07:30 | NUR ---
NURSE HAND-OFF REPORT: Important Events on Shift: done abdominal CT w/contrast, Transfusion-platelet 1u, hematuria/mucoid stool with blood, PT-kyey-joths clot, wound site blood oozing. Patient Status: [] Diet: [npo] Pending Orders: [] Pending Results/Labs:[] Pending MD notification:[] Latest Vital Signs: Temperature 97.8 , Pulse 66 , B/P 164 /92 , Respiratory Rate 20 , O2 SAT 96 , Room Air, O2 Flow Rate 3.0 . Vital Sign Comment: [] EKG Rhythm: Sinus Rhythm Rhythm change?: N MD Notified?: - MD Response: Latest Hernandez Fall Score: 70 Fall Risk: High Risk Safety Measures: Call light Within Reach, Bed Alarm Zone 1, Side Rails Side Rails x3, Bed position Low and Locked. Fall Precautions: Door Sign Patient Fall Education Report given to ZACH Rasmussen.
--- NOTE | 2020-05-16 07:31 | NUR ---
NURSE NOTES: Hand-off report received by ZACH Johnson. Patient in stable condition, cardiac rhythm stable NSR, edematous bilateral arms. Restraints on for safety and to prevent patient attempts of pulling out NGT, peripheral pulses palpable and skin is intact, [id number] under bilateral wrist restraints, alert and oriented to baseline, fatigued. Bed in lowest and locked position, bed alarm on, accounting manager assistant controller in place. NGT in place and breathing is even and unlabored.
[2020-05-16 08:00] VITALS: BP 135/104
--- NOTE | 2020-05-16 08:54 | NUR ---
NURSE NOTES: Called Dr. Waterman regarding need for dialysis and clarification whether it was going to take place today. Left a voicemail and awaiting call back.
--- NOTE | 2020-05-16 08:57 | NUR ---
NURSE NOTES: Notified Dr. Alamo regarding oozing sacral wound, awaiting response/potential orders, frequent repositioning performed q2h.
[2020-05-16] MEDS: Levemir Flexpen SUBQ SCH (09:00)
[2020-05-16] MEDS: Dakin's 0.125% Soln (Quarter Strength) 16oz TOPIC SCH (09:14)
[2020-05-16] MEDS: Doxycycline Hyclate 100 MG in D5W 110 ML IV SCH ×2 (09:14→20:22)
[2020-05-16] MEDS: Pantoprazole Inj IVP SCH ×2 (09:14→20:22)
--- NOTE | 2020-05-16 11:54 | Hematology/Onc Progress Note ---
Assessment/Plan Assessment/Plan Assessment and Recs # Left upper extremity axillary, subclavian, and brachial venous thrombosis --> heparin gtt was started-->now changed to lovenox as supertherapeutic->now HELD due to severe anemia --> consider eliquis or coumadin once closer to dc --> patient does have eleno/ckd, thus agent needed not affected by renal function --> monitor for bleed Hematoma thigh ct abd reviewed # Thrombocytopenia likely secondary to left heel and foot osteomyelitis/infection/dic --> likely due to infected wounds, heel ulcerations --> ABX flucon/flagyl/cefepime-->doxy/cefepime --> Peripheral smear, reviewed, hold off flow for now --> elev inflammatory markers --> WBC 35-->22-->18-->14-->13-->11.4->>>13-->17-->31 --> plt 55-->23-->26-->22-->54--> 59k --> 2 units plt 05/13 # Anemia due to underlying chronic disease. --> Continue to closely monitor for improvement. --> Anemia w/u has been reviewed. Will trend cbc daily. --> Hgb goal >7 -> hgb 12-->10.7->9.4-->9.5->10-->7.3-->5.7-->6.2-->8-->6.4-->10 --> 2 units 05/07 --> anemia panel reviewed before # Hyperkalemia. Given Kayexalate. --> Improved # Diabetic ketoacidosis. --> per before, improved # ESRD --> hd with line inserted # Shortness of breath in past with dka # Dvt ppx --> scds The time the note was entered does not necessarily correspond to the time the p atient was seen. Subjective Allergies: Coded Allergies: PENICILLINS (Verified Allergy, Unknown, 12/05/17) Subjective Subjective 05/05 hgb 7.3 this am, plts lower, no bleeding, ptt elev, will hold off hep gtt 05/06 labs noted, no bleeding, now on lovenox sq, sis somnolent in am 05/07 is on lovenox sq, is s/p transfusion, labs noted, on abx 05/09 anticoag is held, pending for cbc today, labs noted 05/10 anticoag held, for platelets to goal >50k, with coffee ground emesis 05/11 hd was given last night, bp was low and albumin administered, bp better 05/12 nv, labs reviewed, aphasic, plt 26 yesterday, meds reviewed, to get cbc today 05/13 2nd bag of platelets is pending, jessie Rn, plt recently 22k 05/14 plt improved to 54k, hit panel pending, is on abx 05/15: plt 59k, labs reviewed. 05/16: ct abd reviewed hematoma Objective Objective Current Medications Medications (Trade) Dose Ordered Sig/Enrike Route PRN Reason Start Time Stop Time Status Last Admin Dose Admin Albumin Human 50 ml @ 50 mls/hr ONCE IV 05/16/20 11:45 05/16/20 14:00 Barium Sulfate (Readi-Cat 2) 450 ml NOW PRN ORAL Radiology Procedure 05/15/20 18:45 05/17/20 18:44 Bisacodyl (Dulcolax) 10 mg DAILYPRN PRN RECTAL Constipation 05/01/20 20:30 07/30/20 20:29 Chlorhexidine Gluconate (Holli-Hex 2%) 1 applic DAILY@2000 TOPIC 05/02/20 20:00 07/31/20 19:59 05/15/20 20:48 Dextrose (Dextrose 50%) 25 ml Q30M PRN IV Hypoglycemia 05/01/20 20:30 07/30/20 20:29 Dextrose (Dextrose 50%) 50 ml Q30M PRN IV Hypoglycemia 05/01/20 20:30 07/30/20 20:29 Dextrose/Sodium Chloride 1,000 ml @ 50 mls/hr Q20H IV 05/14/20 20:30 06/13/20 20:29 05/16/20 00:51 Doxycycline Hyclate 100 mg/ Dextrose 110 ml @ 110 mls/hr Q12HR IV 05/08/20 21:00 05/24/20 23:59 05/16/20 09:14 Hydralazine HCl (Apresoline) 10 mg Q4H PRN IV SBP >160 05/16/20 07:45 08/14/20 07:44 Insulin Aspart (NovoLOG) Q6HR SUBQ 05/03/20 00:00 08/01/20 00:00 05/15/20 12:50 Insulin Detemir (Levemir) 5 units DAILY SUBQ 05/13/20 10:00 08/11/20 09:59 05/15/20 10:01 Meropenem 500 mg/ Sodium Chloride 50 ml @ 100 mls/hr Q24HRS IVPB 05/14/20 21:00 05/19/20 20:59 05/15/20 21:01 Metronidazole 100 ml @ 100 mls/hr Q12H IVPB 05/14/20 20:00 05/21/20 19:59 05/16/20 08:51 Morphine Sulfate (Morphine Sulfate) 2 mg Q4H PRN IVP For Pain 05/15/20 16:30 05/22/20 16:29 05/16/20 00:51 Ondansetron HCl (Zofran) 4 mg Q6H PRN IVP Nausea & Vomiting 05/01/20 20:30 05/31/20 20:29 Pantoprazole (Protonix) 40 mg EVERY 12 HOURS IVP 05/12/20 16:15 06/11/20 16:14 05/16/20 09:14 Sodium Hypochlorite (Dakin's Quarter Strength) 1 applic DAILY TOPIC 05/05/20 09:00 06/04/20 08:59 05/16/20 09:14 Last 24 Hour Vital Signs Date Time Temp Pulse Resp B/P (MAP) Pulse Ox O2 Delivery O2 Flow Rate FiO2 05/16/20 08:00 97.6 72 20 135/104 (114) 94 05/16/20 04:00 97.8 75 20 164/92 (116) 96 05/16/20 04:00 66 05/16/20 00:00 97.5 70 20 180/93 (122) 96 05/16/20 00:00 69 05/15/20 21:00 Room Air 05/15/20 20:00 75 05/15/20 20:00 97.7 70 20 166/80 (108) 93 05/15/20 17:09 97.6 05/15/20 16:00 80 05/15/20 16:00 97.5 78 20 151/79 (103) 98 05/15/20 13:15 78 05/15/20 12:00 97.6 79 21 127/78 (94) 99 05/15/20 09:00 Room Air 05/15/20 08:00 81 05/15/20 08:00 97.8 87 24 133/77 (95) 96 05/15/20 04:00 76 05/15/20 04:00 97.9 83 20 122/70 (87) 96 05/15/20 00:00 76 05/15/20 00:00 97.6 84 20 142/81 (101) 96 05/14/20 21:00 Room Air 05/14/20 20:00 79 05/14/20 20:00 97.6 72 20 121/65 (83) 96 05/14/20 16:00 98.8 78 20 148/78 (101) 96 05/14/20 16:00 77 05/14/20 12:00 77 05/14/20 12:00 98.2 76 22 142/75 (97) 95 Intake and Output 05/15/20 05/16/20 18:59 06:59 Output Total 50 ml Balance -50 ml Output Urine Total 50 ml # Voids 10 1 # Bowel Movements 1 Labs Test 05/13/20 12:46 05/14/20 04:50 05/14/20 10:02 05/14/20 18:13 POC Whole Blood Glucose 208 MG/DL (74-106) 142 MG/DL (74-106) 179 MG/DL (74-106) White Blood Count 30.5 K/UL (4.8-10.8) Red Blood Count 3.22 M/UL (4.20-5.40) Hemoglobin 9.9 G/DL (12.0-16.0) Hematocrit 30.8 % (37.0-47.0) Mean Corpuscular Volume 95 FL (80-99) Mean Corpuscular Hemoglobin 30.8 PG (27.0-31.0) Mean Corpuscular Hemoglobin Concent 32.2 G/DL (32.0-36.0) Red Cell Distribution Width 14.8 % (11.6-14.8) Platelet Count 54 K/UL (150-450) Mean Platelet Volume 8.5 FL (6.5-10.1) Neutrophils (%) (Auto) % (45.0-75.0) Lymphocytes (%) (Auto) % (20.0-45.0) Monocytes (%) (Auto) % (1.0-10.0) Eosinophils (%) (Auto) % (0.0-3.0) Basophils (%) (Auto) % (0.0-2.0) Differential Total Cells Counted 100 Neutrophils % (Manual) 86 % (45-75) Lymphocytes % (Manual) 6 % (20-45) Monocytes % (Manual) 2 % (1-10) Eosinophils % (Manual) 0 % (0-3) Basophils % (Manual) 0 % (0-2) Band Neutrophils 6 % (0-8) Platelet Estimate Decreased Platelet Morphology Normal Hypochromasia 1+ Anisocytosis 1+ Prothrombin Time 13.6 SEC (9.30-11.50) Prothromb Time International Ratio 1.3 (0.9-1.1) Activated Partial Thromboplast Time 50 SEC (23-33) Sodium Level 142 MMOL/L (136-145) Potassium Level 3.0 MMOL/L (3.5-5.1) Chloride Level 106 MMOL/L (98-107) Carbon Dioxide Level 25 MMOL/L (21-32) Anion Gap 11 mmol/L (5-15) Blood Urea Nitrogen 39 mg/dL (7-18) Creatinine 4.1 MG/DL (0.55-1.30) Estimat Glomerular Filtration Rate 13.1 mL/min (>60) Glucose Level 131 MG/DL (74-106) Lactic Acid Level 1.90 mmol/L (0.4-2.0) Calcium Level 7.6 MG/DL (8.5-10.1) Phosphorus Level 2.7 MG/DL (2.5-4.9) Magnesium Level 2.1 MG/DL (1.8-2.4) Total Bilirubin 4.8 MG/DL (0.2-1.0) Direct Bilirubin 4.7 MG/DL (0.0-0.3) Aspartate Amino Transf (AST/SGOT) 407 U/L (15-37) Alanine Aminotransferase (ALT/SGPT) 130 U/L (12-78) Alkaline Phosphatase 1210 U/L (46-116) Total Protein 4.1 G/DL (6.4-8.2) Albumin 1.1 G/DL (3.4-5.0) Globulin 3.0 g/dL Albumin/Globulin Ratio 0.4 (1.0-2.7) Amylase Level 47 U/L (25-115) Lipase 504 U/L (73-393) Test 05/14/20 18:18 05/15/20 06:25 05/16/20 11:40 White Blood Count 33.3 K/UL (4.8-10.8) 32.2 K/UL (4.8-10.8) Red Blood Count 3.08 M/UL (4.20-5.40) 3.33 M/UL (4.20-5.40) Hemoglobin 9.7 G/DL (12.0-16.0) 10.2 G/DL (12.0-16.0) Hematocrit 28.2 % (37.0-47.0) 31.4 % (37.0-47.0) Mean Corpuscular Volume 92 FL (80-99) 94 FL (80-99) Mean Corpuscular Hemoglobin 31.6 PG (27.0-31.0) 30.8 PG (27.0-31.0) Mean Corpuscular Hemoglobin Concent 34.5 G/DL (32.0-36.0) 32.6 G/DL (32.0-36.0) Red Cell Distribution Width 15.8 % (11.6-14.8) 14.9 % (11.6-14.8) Platelet Count 46 K/UL (150-450) 59 K/UL (150-450) Mean Platelet Volume 14.2 FL (6.5-10.1) 10.1 FL (6.5-10.1) Neutrophils (%) (Auto) % (45.0-75.0) % (45.0-75.0) Lymphocytes (%) (Auto) % (20.0-45.0) % (20.0-45.0) Monocytes (%) (Auto) % (1.0-10.0) % (1.0-10.0) Eosinophils (%) (Auto) % (0.0-3.0) % (0.0-3.0) Basophils (%) (Auto) % (0.0-2.0) % (0.0-2.0) Differential Total Cells Counted 100 100 Neutrophils % (Manual) 85 % (45-75) 86 % (45-75) Lymphocytes % (Manual) 3 % (20-45) 6 % (20-45) Monocytes % (Manual) 1 % (1-10) 3 % (1-10) Eosinophils % (Manual) 0 % (0-3) 0 % (0-3) Basophils % (Manual) 0 % (0-2) 0 % (0-2) Band Neutrophils 11 % (0-8) 5 % (0-8) Platelet Estimate Decreased Decreased Platelet Morphology Normal Normal Polychromasia 1+ Anisocytosis 1+ 1+ Hypochromasia 1+ Sodium Level 141 MMOL/L (136-145) Potassium Level 3.5 MMOL/L (3.5-5.1) Chloride Level 106 MMOL/L (98-107) Carbon Dioxide Level 21 MMOL/L (21-32) Anion Gap 14 mmol/L (5-15) Blood Urea Nitrogen 44 mg/dL (7-18) Creatinine 4.6 MG/DL (0.55-1.30) Estimat Glomerular Filtration Rate 11.4 mL/min (>60) Glucose Level 210 MG/DL (74-106) Calcium Level 7.5 MG/DL (8.5-10.1) Phosphorus Level 3.9 MG/DL (2.5-4.9) Magnesium Level 2.1 MG/DL (1.8-2.4) Total Bilirubin 5.6 MG/DL (0.2-1.0) Direct Bilirubin 5.1 MG/DL (0.0-0.3) Aspartate Amino Transf (AST/SGOT) 298 U/L (15-37) Alanine Aminotransferase (ALT/SGPT) 118 U/L (12-78) Alkaline Phosphatase 1260 U/L (46-116) Total Protein 4.7 G/DL (6.4-8.2) Albumin 1.3 G/DL (3.4-5.0) POC Whole Blood Glucose 98 MG/DL (74-106) Height (Feet): 5 Height (Inches): 7.00 Weight (Pounds): 130 Objective Subjective Subjective HEENT: Denies: no symptoms, eye pain, blurred vision, tearing, double vision, ear pain, ear discharge, nose pain, nose congestion, throat pain, throat swelling, mouth pain, mouth swelling, other Cardiovascular: Denies: no symptoms, chest pain, edema, irregular heart rate, lightheadedness, palpitations, syncope, other Gastrointestinal/Abdominal: Denies: no symptoms, abdomen distended, abdominal pain, black stools, tarry stools, blood in stool, constipated, diarrhea, difficulty swallowing, nausea, poor appetite, poor fluid intake, rectal bleeding, vomiting, other Genitourinary: Denies: no symptoms, burning, discharge, frequency, flank pain, hematuria, incontinence, pain, urgency, other Neurologic/Psychiatric: Denies: no symptoms, anxiety, depressed, emotional problems, headache, numbness, paresthesia, pre-existing deficit, seizure, tingling, tremors, weakness, other Endocrine: Denies: no symptoms, excessive sweating, flushing, intolerance to cold, intolerance to heat, increased hunger, increased thirst, increased urine, unexplained weight gain, unexplained weight loss, other Hematologic/Lymphatic: Denies: no symptoms, anemia, easy bleeding, easy bruising, adenopathy, other Merry Muro NP May 16, 2020 11:54
[2020-05-16 12:00] VITALS: BP 179/87
--- NOTE | 2020-05-16 12:30 | NUR ---
NURSE NOTES: Dr. Nur and Dr. Howard came here in person to assess the patient, made aware of sacral bleeding and overall condition of the patient as well as the inner right thigh mass. No new orders given.
--- NOTE | 2020-05-16 13:00 | NUR ---
NURSE NOTES: Dr. Howard made aware of WBC of 25, trending down. No new orders given.
--- NOTE | 2020-05-16 13:00 | NUR ---
NURSE NOTES: Patient tolerating HD very well, BP in desirable range 113/83.
[2020-05-16 13:06] LABS: HEMATOCRIT 24.4 % (37.0-47.0); HEMOGLOBIN 8.4 G/DL (12.0-16.0); MEAN CORPUSCULAR VOLUME 90 FL (80-99); PLATELET COUNT 51 K/UL (150-450); RED BLOOD COUNT 2.71 M/UL (4.20-5.40); RED CELL DISTRIBUTION WIDTH 16.6 % (11.6-14.8)
[2020-05-16 13:07] LABS: WHITE BLOOD COUNT 25.7 K/UL (4.8-10.8)
[2020-05-16 13:08] LABS: INR 1.5 (0.9-1.1)
--- NOTE | 2020-05-16 13:20 | Surgery Progress Note ---
Surgery Progress Note Subjective Additional Comments pending labs ct noted right groin mass is a stable not infected hematoma from recent line removal temp hd Objective Last 24 Hour Vital Signs Date Time Temp Pulse Resp B/P (MAP) Pulse Ox O2 Delivery O2 Flow Rate FiO2 05/16/20 08:00 97.6 72 20 135/104 (114) 94 05/16/20 04:00 97.8 75 20 164/92 (116) 96 05/16/20 04:00 66 05/16/20 00:00 97.5 70 20 180/93 (122) 96 05/16/20 00:00 69 05/15/20 21:00 Room Air 05/15/20 20:00 75 05/15/20 20:00 97.7 70 20 166/80 (108) 93 05/15/20 17:09 97.6 05/15/20 16:00 80 05/15/20 16:00 97.5 78 20 151/79 (103) 98 I&O Intake and Output 05/15/20 05/16/20 19:00 07:00 Output Total 50 ml Balance -50 ml Output Urine Total 50 ml # Voids 10 1 # Bowel Movements 1 Dressing: dry Cardiovascular: RSR Respiratory: clear, decreased breath sounds Abdomen: soft, non-tender, present bowel sounds Extremities: edema, no tenderness, no cyanosis Laboratory Tests Test 05/16/20 11:40 05/16/20 12:00 POC Whole Blood Glucose 98 MG/DL (74-106) White Blood Count 25.7 K/UL (4.8-10.8) *H Red Blood Count 2.71 M/UL (4.20-5.40) L Hemoglobin 8.4 G/DL (12.0-16.0) L Hematocrit 24.4 % (37.0-47.0) L Mean Corpuscular Volume 90 FL (80-99) Mean Corpuscular Hemoglobin 31.0 PG (27.0-31.0) Mean Corpuscular Hemoglobin Concent 34.4 G/DL (32.0-36.0) Red Cell Distribution Width 16.6 % (11.6-14.8) H Platelet Count 51 K/UL (150-450) L Mean Platelet Volume 9.6 FL (6.5-10.1) Neutrophils (%) (Auto) % (45.0-75.0) Lymphocytes (%) (Auto) % (20.0-45.0) Monocytes (%) (Auto) % (1.0-10.0) Eosinophils (%) (Auto) % (0.0-3.0) Basophils (%) (Auto) % (0.0-2.0) Neutrophils % (Manual) Pending Lymphocytes % (Manual) Pending Platelet Estimate Pending Platelet Morphology Pending Prothrombin Time 16.5 SEC (9.30-11.50) H Prothromb Time International Ratio 1.5 (0.9-1.1) H Activated Partial Thromboplast Time 59 SEC (23-33) H Sodium Level Pending Potassium Level Pending Chloride Level Pending Carbon Dioxide Level Pending Blood Urea Nitrogen Pending Creatinine Pending Estimat Glomerular Filtration Rate Pending Glucose Level Pending Calcium Level Pending Phosphorus Level Pending Magnesium Level Pending Total Bilirubin Pending Aspartate Amino Transf (AST/SGOT) Pending Alanine Aminotransferase (ALT/SGPT) Pending Alkaline Phosphatase Pending Total Creatine Kinase Pending Total Protein Pending Albumin Pending Globulin Pending Lacie-Cohen Virus Capsid Ag IgM Ab Pending Hepatitis A IgM Antibody Pending Plan Problems: (1) UTI (urinary tract infection) (2) JYOTI (acute kidney injury) (3) Hyperkalemia (4) Leukocytosis Assessment & Plan: dvt upper extremity picc related remove picc once temp line in anticoag as per heme worsening leukocytosis on abx acute hepatic insufficiency unfortunately prognosis very guarded (5) Sepsis (6) Altered mental status (7) Sacral decubitus ulcer Assessment & Plan: 69-year-old female multiple comorbidities presented with failure to thrive lethargic altered mental status noted to have abnormal labs and have draining bilateral heel unstageable decubitus ulcers multiple skin lesions on the lower extremities as well as a sacral decubitus ulcer as well. Imaging reviewed. Patient has been eating less recently but currently is eating at the bedside though does not look like she is taking much in. Treatment plan Turn every 2 hours Offload pressure with pillows pillow on side as necessary as well as underneath calf to elevate heels Air soft mattress nutritional optimization continue IV antibiotics per infectious disease SACRUM- STAGE - UNSTAGEABLE PRESSURE ULCER MEASURES 6.0X13.0X0.2. WOUND BED WITH 80% SLOUGH AND 20% PINK GRANULATION TISSUE. NOTED FOUL ODOR RECOMMEND-CLEAN WITH SALINE. APPLY WET TO DRY DRESSINGS WITH DAKINS 0.25% DAKIN'S SOLUTION.COVER WITH OPTIFOAM DRESSING. REPLACE DRESSING DAILY. LEFT ISCHIUM-STAGE II PRESSURE ULCER MEASURES 4.5X0.5X0.2CM. PINK GRANULATION TISSUE NOTED. RECOMMEND- CLEAN WITH SALINE, PAT DRY. APPLY CALAZINE AND COVER WITH OPTIFOAM DRESSING. LEFT ANTERIOR LOW LEG-VENOUS ULCER MEASURES 8.0X2.6X0.2CM 100% YELLOW SLOUGH NOTED TO WOUND BED. RECOMMEND- CLEAN WITH SALINE, PA DRY. APPLY THERAHONEY. COVER WITH GAUZE AND SECURE WITH KERLIX. REPLACE DRESSING DAILY. LEFT HEEL- UNSTAGEABLE PRESSURE ULCER MEASURES 9.5X8.0X0.3CM. 100% MOIST BLACK ESCHAR. WITH STRONG FOUL ODOR. RECOMMEND- CLEAN WITH SALINE. APPLY WET TO DRY DRESSINGS WITH DAKINS 0.25% DAKIN'S SOLUTION. COVER WITH GAUZE, ABD PAD AND SECURE WITH KERLIX. REPLACE DAILY. RIGHT ANTERIOR LOW LEG-VENOUS ULCER MEASURES 2.5X3.0X0.2CM WITH PINK GRANULATION TISSUE. RIGHT ANTERIOR DISTAL LOW LEG -VENOUS ULCER MEASURES 1.5X0.2X0.1CM WITH PINK GRANULATION TISSUE. RECOMMEND-CLEAN WITH SALINE PAT DRY. APPLY XEROFORM GAUZE, GAUZE AND COVER WITH KERLIX. REPLACE DAILY RIGHT HEEL-DTI MEASURES 2.5X3.0CM. AREA DARK PURPLE IN COLOR AND BOGGY TO TOUCH. NO DRAINAGE NOTED. RECOMMEND- PAINT WITH CAVILON SKIN PROTECTOR, GAUZE AND WRAP WITH KERLIX. REPLACE DAILY. We will follow with recommendations thank you for letting participate patient's care Fairly numerous bubbles of soft tissue gas are seen within the subcutaneous fat and possibly the intrinsic musculature of the plantar surface of the heel. There is high STIR and decreased T1 signal within the calcaneus, and there is indistinctness of the inferior and posterior cortical margins of the calcaneus. There is some soft tissue ulceration of the plantar surface of the heel, as well as marked thinning of the subcutaneous fat overlying the calcaneal tuberosity. There is considerable edema of the plantar surface subcutaneous fat. There is also edema of the subcutaneous fat of the lateral and medial ankle. No focal discrete fluid collection to suggest drainable abscess demonstrated. Impression: Evidence of ulceration overlying the calcaneal tuberosity Soft tissue gas within the heel, as described. This may represent penetration the above, but is worrisome for infection with a gas-forming organism Abnormal signal within the posterior and mid calcaneus, highly suspicious for acute osteomyelitis (8) Decubitus ulcer of heel (9) Diabetes mellitus out of control (10) Acute on chronic renal failure (11) NSTEMI (non-ST elevated myocardial infarction) (12) High anion gap metabolic acidosis (13) Choledocholithiasis Assessment & Plan: pending plt transfusion repeat labs in am needs EGD +/- peg PEG canceled given low PLT resume NGTF plan peg next week Unremarkable inferior vena cava. There is bilateral pleural fluid. Gallbladder demonstrates sludge. No definite gallstones. Gallbladder wall is thickened, measuring up to 3 mm thick, and there is pericholecystic edema. Patient unable to report sonographic Garcia's sign. Common bile duct measures 3 mm in diameter. No intrahepatic biliary ductal dilatation. Liver demonstrates normal echogenicity, no focal abnormality. Portal vein and hepatic veins are patent. There is trace ascites fluid. Pancreas is unremarkable. Spleen is unremarkable. Left kidney measures 11.4 cm in length. Right kidney measures 11.1 cm length. Both kidneys demonstrate slightly increased echogenicity. There is no hydronephrosis. No focal abnormality . Non-aneurysmal abdominal aorta . Impression: Ascites fluid Bilateral pleural effusions Negative for gallstones. Small amount of gallbladder sludge noted. Gallbladder wall thickening and pericholecystic edema is probably related to what ever process is causing the pleural fluid and ascites. Possibility of acute acalculous cholecystitis should also be considered, however. Echogenic kidneys, consistent with medical renal disease worsening overall unfortunately declining severe possible jereym acalculous. but possible related to liver insufficiency high risk for bleeding and procedure recommend comfort measures (14) DVT (deep venous thrombosis) Joseph Alamo May 16, 2020 13:20
[2020-05-16] MEDS ORDERED: Tubing IV Blood Pump IV ONE (13:21)
[2020-05-16] MEDS ORDERED: Tubing IV Secondary IV ONE (13:21)
[2020-05-16] MEDS ORDERED: D5NS 1000ml IV ONE (13:21)
[2020-05-16] MEDS ORDERED: NS 275ml ONE (13:21)
[2020-05-16 13:26] LABS: ALBUMIN/GLOBULIN RATIO 0.4 (1.0-2.7); BILIRUBIN,TOTAL 5.1 MG/DL (0.2-1.0); CALCIUM 7.4 MG/DL (8.5-10.1); CREATININE 3.9 MG/DL (0.55-1.30); POTASSIUM 3.5 MMOL/L (3.5-5.1)
[2020-05-16 13:27] LABS: BILIRUBIN,DIRECT 4.7 MG/DL (0.0-0.3); CREATINE KINASE 89 U/L (26-140)
--- NOTE | 2020-05-16 14:46 | NUR ---
NURSE NOTES: Per Dr. Davidson, dialysis is necessary despite low BP 77/60 HR 58. Per Jamie, dialysis nurse, she refuses to perform dialysis due to low BP.
--- NOTE | 2020-05-16 14:57 | General Progress Note ---
Subjective Allergies: Coded Allergies: PENICILLINS (Verified Allergy, Unknown, 12/05/17) Subjective confused, non communicative d/w RN, CT noted - normal liver / GB, fluid filled collection in inner thigh Objective Last 24 Hour Vital Signs Date Time Temp Pulse Resp B/P (MAP) Pulse Ox O2 Delivery O2 Flow Rate FiO2 05/16/20 12:00 82 05/16/20 12:00 97.7 73 20 179/87 (117) 95 05/16/20 08:00 97.6 72 20 135/104 (114) 94 05/16/20 08:00 73 05/16/20 04:00 97.8 75 20 164/92 (116) 96 05/16/20 04:00 66 05/16/20 00:00 97.5 70 20 180/93 (122) 96 05/16/20 00:00 69 05/15/20 21:00 Room Air 05/15/20 20:00 75 05/15/20 20:00 97.7 70 20 166/80 (108) 93 05/15/20 17:09 97.6 05/15/20 16:00 80 05/15/20 16:00 97.5 78 20 151/79 (103) 98 Intake and Output 05/15/20 05/16/20 19:00 07:00 Output Total 50 ml Balance -50 ml Output Urine Total 50 ml # Voids 10 1 # Bowel Movements 1 Laboratory Tests 05/16/20 11:40: POC Whole Blood Glucose 98 05/16/20 12:00: White Blood Count 25.7*H, Red Blood Count 2.71L, Hemoglobin 8.4L, Hematocrit 24.4L, Mean Corpuscular Volume 90, Mean Corpuscular Hemoglobin 31.0, Mean Corpuscular Hemoglobin Concent 34.4, Red Cell Distribution Width 16.6H, Platelet Count 51L, Mean Platelet Volume 9.6, Neutrophils (%) (Auto) , Lymphocytes (%) (Auto) , Monocytes (%) (Auto) , Eosinophils (%) (Auto) , Basophils (%) (Auto) , Differential Total Cells Counted 100, Neutrophils % (Manual) 92H, Lymphocytes % (Manual) 3L, Monocytes % (Manual) 1, Eosinophils % (Manual) 0, Basophils % (Manual) 0, Band Neutrophils 4, Platelet Estimate DecreasedL, Platelet Morphology Normal, Hypochromasia 1+, Anisocytosis 1+, Prothrombin Time 16.5H, Prothromb Time International Ratio 1.5H, Activated Partial Thromboplast Time 59H , Sodium Level 141, Potassium Level 3.5, Chloride Level 108H, Carbon Dioxide Level 23, Anion Gap 10, Blood Urea Nitrogen 39H, Creatinine 3.9H, Estimat Glomerular Filtration Rate 13.8, Glucose Level 104#, Calcium Level 7.4L, Phosphorus Level 3.0, Magnesium Level 1.9, Total Bilirubin 5.1H, Direct Bilirubin 4.7H, Aspartate Amino Transf (AST/SGOT) 216H, Alanine Aminotransferase (ALT/SGPT) 92H, Alkaline Phosphatase 989H, Total Creatine Kinase 89, Total Protein 3.8L, Albumin 1.0L, Globulin 2.8, Albumin/Globulin Ratio 0.4L, Lacie- Cohen Virus Capsid Ag IgM Ab [Pending], Hepatitis A IgM Antibody [Pending] Height (Feet): 5 Height (Inches): 7.00 Weight (Pounds): 130 Objective Elderly woman non communicative (+) NGT Coarse BS RRR abd soft ND Ext: no edema, (+) soft 10 cm fluid collection, inner right thigh (-) redness, heat, fluctuance OBS Assessment/Plan Assessment/Plan: Assessment: Progressive leukocytosis / sepsis - poor prognosis abnormal LFT - multifactorial - sepsis/COVID/ishcemia, doubt cholecystitis or cholangitis (+) (R) inner thigh fluid collection, presumed hematoma osteomyelitis Renal failure Severe thrombocytopenia - poor candidate for intervention Rectal bleeding, ? ischemic colitis - resolved DM - poor COVID prognosis COVID Pneumonia, bilateral dysphagia / NGT Dementia Recommendations: supportive care restart TF abx per ID PPI follow labs poor prognosis - family do understand patient may soon Eze Nur MD May 16, 2020 14:57
--- NOTE | 2020-05-16 15:25 | NUR ---
NURSE NOTES: Received platelets from the bloodbank. Preparing and assessing patient for transfusion.
--- NOTE | 2020-05-16 15:40 | NUR ---
NURSE NOTES: Crossmatch was done with Tavia Rivero RN.
--- NOTE | 2020-05-16 15:57 | Nephrology Progress Note ---
Assessment/Plan Plan #JYOTI - concerns for vancomycin nephrotoxicity- r/o ATN- baseline Cr 0.8- also with volume depletion # osteomyelitis of LLE- on vanco, cefepime and flagyl #AMS #diabetes # hypertension, #hyperlipidemia # dementia. - HD today - DC midodrine 5 TID - PEG postponed - plt transfusion per hematology - monitor hemoglobin - renal US with no acute findings - anibiotics per ID- - avoid vanco for now - monitor renal output - add epo 4k TIW time spent 45 min Subjective ROS Limited/Unobtainable: Yes Subjective PEG cancelled due o thrombocytopenia WBC downtrending LFTs downtrending R IJ in plan for HD today Objective Objective Last 24 Hour Vital Signs Date Time Temp Pulse Resp B/P (MAP) Pulse Ox O2 Delivery O2 Flow Rate FiO2 05/16/20 12:00 82 05/16/20 12:00 97.7 73 20 179/87 (117) 95 05/16/20 08:00 97.6 72 20 135/104 (114) 94 05/16/20 08:00 73 05/16/20 04:00 97.8 75 20 164/92 (116) 96 05/16/20 04:00 66 05/16/20 00:00 97.5 70 20 180/93 (122) 96 05/16/20 00:00 69 05/15/20 21:00 Room Air 05/15/20 20:00 75 05/15/20 20:00 97.7 70 20 166/80 (108) 93 05/15/20 17:09 97.6 05/15/20 16:00 80 05/15/20 16:00 97.5 78 20 151/79 (103) 98 Intake and Output 05/15/20 05/16/20 19:00 07:00 Output Total 50 ml Balance -50 ml Output Urine Total 50 ml # Voids 10 1 # Bowel Movements 1 Laboratory Tests 05/16/20 11:40: POC Whole Blood Glucose 98 05/16/20 12:00: White Blood Count 25.7*H, Red Blood Count 2.71L, Hemoglobin 8.4L, Hematocrit 24.4L, Mean Corpuscular Volume 90, Mean Corpuscular Hemoglobin 31.0, Mean Corpuscular Hemoglobin Concent 34.4, Red Cell Distribution Width 16.6H, Platelet Count 51L, Mean Platelet Volume 9.6, Neutrophils (%) (Auto) , Lymphocytes (%) (Auto) , Monocytes (%) (Auto) , Eosinophils (%) (Auto) , Basophils (%) (Auto) , Differential Total Cells Counted 100, Neutrophils % (Manual) 92H, Lymphocytes % (Manual) 3L, Monocytes % (Manual) 1, Eosinophils % (Manual) 0, Basophils % (Manual) 0, Band Neutrophils 4, Platelet Estimate DecreasedL, Platelet Morphology Normal, Hypochromasia 1+, Anisocytosis 1+, Prothrombin Time 16.5H, Prothromb Time International Ratio 1.5H, Activated Partial Thromboplast Time 59H , Sodium Level 141, Potassium Level 3.5, Chloride Level 108H, Carbon Dioxide Level 23, Anion Gap 10, Blood Urea Nitrogen 39H, Creatinine 3.9H, Estimat Glomerular Filtration Rate 13.8, Glucose Level 104#, Calcium Level 7.4L, Phosphorus Level 3.0, Magnesium Level 1.9, Total Bilirubin 5.1H, Direct Bilirubin 4.7H, Aspartate Amino Transf (AST/SGOT) 216H, Alanine Aminotransferase (ALT/SGPT) 92H, Alkaline Phosphatase 989H, Total Creatine Kinase 89, Total Protein 3.8L, Albumin 1.0L, Globulin 2.8, Albumin/Globulin Ratio 0.4L, Lacie- Cohen Virus Capsid Ag IgM Ab [Pending], Hepatitis A IgM Antibody [Pending] Height (Feet): 5 Height (Inches): 7.00 Weight (Pounds): 130 Objective General Appearance: no apparent distress EENT: PERRL/EOMI, normal ENT inspection Neck: non-tender, normal alignment Cardiovascular: normal peripheral pulses, normal rate, regular rhythm Respiratory/Chest: chest wall non-tender, lungs clear, normal breath sounds Abdomen: normal bowel sounds, non tender Niko Waterman M.D. May 16, 2020 15:57
[2020-05-16 16:00] VITALS: BP 155/69
--- NOTE | 2020-05-16 16:39 | NUR ---
NURSE NOTES: Pheresis platelets transfusion completed. Patient asymptomatic, no acute distress noted, vitals WNL.
--- NOTE | 2020-05-16 17:23 | General Progress Note ---
Subjective Date patient seen: May 16, 2020 Allergies: Coded Allergies: PENICILLINS (Verified Allergy, Unknown, 12/05/17) Subjective No acute events overnight per nursing. Patient continues to have low platelets. With episode of slow bleeding from Vargas catheter and melena as well. Found to have right thigh mass on CT. Likely resolving hematoma per surgery no acute intervention. Does not appear to be infected. WBC count downtrending. Unable to obtain ROS due to ALOC Objective Last 24 Hour Vital Signs Date Time Temp Pulse Resp B/P (MAP) Pulse Ox O2 Delivery O2 Flow Rate FiO2 05/16/20 16:00 97.5 84 20 155/69 (97) 95 05/16/20 12:00 82 05/16/20 12:00 97.7 73 20 179/87 (117) 95 05/16/20 09:00 Room Air 05/16/20 08:00 97.6 72 20 135/104 (114) 94 05/16/20 08:00 73 05/16/20 04:00 97.8 75 20 164/92 (116) 96 05/16/20 04:00 66 05/16/20 00:00 97.5 70 20 180/93 (122) 96 05/16/20 00:00 69 05/15/20 21:00 Room Air 05/15/20 20:00 75 05/15/20 20:00 97.7 70 20 166/80 (108) 93 Intake and Output 05/15/20 05/16/20 19:00 07:00 Output Total 50 ml Balance -50 ml Output Urine Total 50 ml # Voids 10 1 # Bowel Movements 1 Laboratory Tests 05/16/20 11:40: POC Whole Blood Glucose 98 05/16/20 12:00: White Blood Count 25.7*H, Red Blood Count 2.71L, Hemoglobin 8.4L, Hematocrit 24.4L, Mean Corpuscular Volume 90, Mean Corpuscular Hemoglobin 31.0, Mean Corpuscular Hemoglobin Concent 34.4, Red Cell Distribution Width 16.6H, Platelet Count 51L, Mean Platelet Volume 9.6, Neutrophils (%) (Auto) , Lymphocytes (%) (Auto) , Monocytes (%) (Auto) , Eosinophils (%) (Auto) , Basophils (%) (Auto) , Differential Total Cells Counted 100, Neutrophils % (Manual) 92H, Lymphocytes % (Manual) 3L, Monocytes % (Manual) 1, Eosinophils % (Manual) 0, Basophils % (Manual) 0, Band Neutrophils 4, Platelet Estimate DecreasedL, Platelet Morphology Normal, Hypochromasia 1+, Anisocytosis 1+, Prothrombin Time 16.5H, Prothromb Time International Ratio 1.5H, Activated Partial Thromboplast Time 59H , Sodium Level 141, Potassium Level 3.5, Chloride Level 108H, Carbon Dioxide Level 23, Anion Gap 10, Blood Urea Nitrogen 39H, Creatinine 3.9H, Estimat Glomerular Filtration Rate 13.8, Glucose Level 104#, Calcium Level 7.4L, Phosphorus Level 3.0, Magnesium Level 1.9, Total Bilirubin 5.1H, Direct Bilirubin 4.7H, Aspartate Amino Transf (AST/SGOT) 216H, Alanine Aminotransferase (ALT/SGPT) 92H, Alkaline Phosphatase 989H, Total Creatine Kinase 89, Total Protein 3.8L, Albumin 1.0L, Globulin 2.8, Albumin/Globulin Ratio 0.4L, Lacie- Cohen Virus Capsid Ag IgM Ab [Pending], Hepatitis A IgM Antibody [Pending] Height (Feet): 5 Height (Inches): 7.00 Weight (Pounds): 130 Objective General: WDWN female in NAD, A&O x 0 (baseline is A&o x 1), awake, alert, in no acute distress HEENT: Normocephalic cephalic atraumatic, pupils equal round reactive to light and accommodation, nares patent and no symmetrical, no tonsillar exudates, mucous membranes moist CV: Regular rate regular rhythm, no murmurs, rubs, or gallops Pulm: Lungs clear to auscultation bilaterally. No wheezes, rhonchi, or rales GI: Soft, Non TTP in RUQ nondistended, bowel sounds present Neuro: CN 2-12 intact bilaterally, no focal signs. Ext: No lower extremity edema bilaterally. LUE 1-2+ edema. Large right thigh firm mass. No flucuance. No drainage seen. Skin: no rashes lesions or ulcers Msk: Joints symmetrical in upper extremity and lower extremity bilaterally, no joint swelling. Lymph: No lymphadenopathy in upper extremity and lower extremity Assessment/Plan Assessment/Plan: This is a 69-year-old female presenting with acute encephalopathy, JYOTI, acute UTI; now ESRD on HD, Encephalopathic w/ Dysphagia and Chronic Osteo: #Sepsis due to possible Cholangitis #Severe hepatocyte dysfunction, concern for liver failure ? etiology. COVID? #Transaminitis due to liver failure - HIDA scan reviewed - Appreciate surgery input: D/w Dr. Alamo - No surgical interventions at this point. Not a candidate - Appreciate GI Input: D/w Dr. Hay/Dr. Nur - CT A/P reviewed - defer further procedures/imaging to GI and Surgery and discussion of risks/benefits with patient's sister - Sister Elisha (medical decision maker), understands grave prognosis and ok with current medical treatment but would not like further procedures if could cause harm. Surgery explained not candidate for procedures at this time and poor prognosis. . #Right thigh mass #right thigh hematoma > does not appear to be infected. D/w surgery - CTM - supportive measures #Thrombocytopenia #Anemia of Chronic Dx #Acute blood loss anemia #melena #hematuria -Appreciate Heme -Transfuse platelets to maintain above 15 to avoid ICH or above 50 if active bleeding -Transfuse for HGB less than 7 -HIT panel pending -Trend CBC - 1unit platelets again today. Consent obtained from Elisha #Acute Renal Failure now ESRD requiring HD s/p Doyle --> ATN? Normal Renal US -Appreciate Nephro; S/P Fluid Challenge -Will order Permcath Placement--> on hold 2/2 thrombocytopenia -Continue HD as scheduled; Midodrine prn Hypotension -Continue Sodium Bicarb Tabs #hypertension - hydralazine PRN - Appreciate nephrology recommendations #hypokalemia - replete PRN #Acute on chronic Metabolic Encephalopathy Exacerbated by Dementia #Dysphagia 2/2 Above -Appreciate Neuro, CTH WNL -Avoid Sedating Medications -Pending PEG tube placement per GI --> on hold 2/2 thrombocytopenia -Tube Feeding for now #DMII - ISS, Add long acting prn - lantus 5 units daily #LLE Osteo-Appreciate ID #[email or web address] -Cultures noted; S/P Broad Spectrum AB -Current AB: Cefepime/Flagyl/Doxy until 05/24 #COVID positive - asymptomatic - CTM - ID on board #LUE DVT -venous duplex US reviewed -appreciate heme recommendations -off A/C due to bleeding -CTM FENPPX DVTPPX: HSQ (holding due to low platelets) Fluids: as above Diet: pending PEG Lines: PT/OT: pending Code status: Full per SNF Dispo: back to SNF Reason for Continued Hospitalization: jyoti, bleeding MIPS ([employer]-based Incentive Payment System) Applicable CPT: 64433, 96177 CHECK ALL THAT ARE MET: [] Measure #5 (CHF): All ages. Prescribe DESTINEY/ARB upon discharge for patients with left ventricular systolic dysfunction. If not, the reason is clearly documented in the medical chart [] Measure #8 (CHF): All ages. Prescribe a beta jennifer upon discharge for patients with left ventricular systolic dysfunction. If not, the reason is clearly documented in the medical chart. [] Measure #47: Advance care plan or surrogate decision maker documented in the medical record. [x] Measure #130 The provider has documented, updated, or reviewed the patients current medication list and has documented it in the patients note. [x] Measure #374 (All): Send report to referring provider. [] Measure #407(Sepsis due to MSSA bacteremia): Age 18+ Patient treated with a beta-lactam antibiotic (Nafcillin, Oxacillin or Cefazolin) as definitive therapy. MEDICAL COMPLEXITYHigh complexity medical decision making (need 2/3 categories)Problem - need 4 points [x]Acute/new problem with new plan for workup (4 points, 1 max) [] Acute/new problem without additional workup (3 points, 1 max) [x] Unstable chronic problem actively being managed (2 point each, 2 max) [x] Stable chronic problem actively being managed (1 point each, 2 max) [x] Self-limited/transient process (constipation, muscle ache, etc) (1 point each, 2 max) Data - need 4 points [x] Reviewed labs/imaging studies (1 points, 2 max) [x] Independent review of imaging (EKG, xrays, etc) (2 points, 2 max) [x] Discussed case with consult/other MD/RN (2 points, 2 max) High Risk - qualify if have one of the following: [] Severe exacerbation of acute problem, acute mental status change, IV narcotics, monitoring drug levels (vancomycin, INR, tacrolimus etc) I spent 38 minutes on this patient's case, and 20 mins was dedicated to counseling and/or care coordination. Discussed with nephro, ID, gen surgery, neurology. I spent an additional 32 minutes of further face to face time on counseling and care coordination in addition to usual care as detailed above. Spoke at length with patient's sister. Updated on condition, poor prognosis, multiple medical problems, etc. Multiple questions. All questions answered. Time of note may not reflect time of encounter Patrick Cerda D.O. May 16, 2020 17:23
--- NOTE | 2020-05-16 19:08 | NUR ---
NURSE HAND-OFF REPORT: Important Events on Shift: active bleeding, 1 unit of platelets infused, patient remained asymptomatic throughout and after transfusion. Patient Status: stable, DNI/DNR Diet: NPO Pending Orders: [] Pending Results/Labs:[] Pending MD notification:[] Latest Vital Signs: Temperature 97.5 , Pulse 84 , B/P 155 /69 , Respiratory Rate 20 , O2 SAT 95 , Room Air, O2 Flow Rate 3.0 . Vital Sign Comment: [] EKG Rhythm: Sinus Rhythm Rhythm change?: N MD Notified?: - MD Response: Latest Hernandez Fall Score: 70 Fall Risk: High Risk Safety Measures: Call light Within Reach, Bed Alarm Zone 1, Side Rails Side Rails x3, Bed position Low and Locked. Fall Precautions: Yellow Socks Yellow Gown Door Sign Patient Fall Education Report given to Jyothi Bates RN.
--- NOTE | 2020-05-16 19:30 | NUR ---
NURSE NOTES: Report received from ZACH Allen. Patient is awake on bed, alert and oriented x 0. clockmaker is in place, shows sinus rhythm. On aspiration and fall precaution, with bilateral soft wrist restraints, assessment will be done every 2 hours. On NPO. With right IJ Doyle catheter, running D5NS @ 50 cc/hour. Safety measures are in place, bed in lowest and locked position, side rails up x 2, call light button and bedside table within reach, will continue plan of care.
[2020-05-16 20:00] VITALS: BP 142/95
[2020-05-16] MEDS: Dyna-Hex 2% Top Sol 2oz TOPIC SCH (20:21)
--- NOTE | 2020-05-16 23:19 | Neurology Progress Note ---
Interim History Interim History ROS Limited/Unobtainable: Yes Interim History remains somnolent and weak overall Objective Physical Exam Last Vital Signs Date Time Temp Pulse Resp B/P (MAP) Pulse Ox O2 Delivery O2 Flow Rate FiO2 05/16/20 21:00 Room Air 05/16/20 20:00 97.4 91 22 142/95 (111) 92 Laboratory Tests Test 05/16/20 11:40 05/16/20 12:00 05/16/20 18:44 POC Whole Blood Glucose 98 MG/DL (74-106) 95 MG/DL (74-106) White Blood Count 25.7 K/UL (4.8-10.8) *H Red Blood Count 2.71 M/UL (4.20-5.40) L Hemoglobin 8.4 G/DL (12.0-16.0) L Hematocrit 24.4 % (37.0-47.0) L Mean Corpuscular Volume 90 FL (80-99) Mean Corpuscular Hemoglobin 31.0 PG (27.0-31.0) Mean Corpuscular Hemoglobin Concent 34.4 G/DL (32.0-36.0) Red Cell Distribution Width 16.6 % (11.6-14.8) H Platelet Count 51 K/UL (150-450) L Mean Platelet Volume 9.6 FL (6.5-10.1) Neutrophils (%) (Auto) % (45.0-75.0) Lymphocytes (%) (Auto) % (20.0-45.0) Monocytes (%) (Auto) % (1.0-10.0) Eosinophils (%) (Auto) % (0.0-3.0) Basophils (%) (Auto) % (0.0-2.0) Differential Total Cells Counted 100 Neutrophils % (Manual) 92 % (45-75) H Lymphocytes % (Manual) 3 % (20-45) L Monocytes % (Manual) 1 % (1-10) Eosinophils % (Manual) 0 % (0-3) Basophils % (Manual) 0 % (0-2) Band Neutrophils 4 % (0-8) Platelet Estimate Decreased L Platelet Morphology Normal Hypochromasia 1+ Anisocytosis 1+ Prothrombin Time 16.5 SEC (9.30-11.50) H Prothromb Time International Ratio 1.5 (0.9-1.1) H Activated Partial Thromboplast Time 59 SEC (23-33) H Sodium Level 141 MMOL/L (136-145) Potassium Level 3.5 MMOL/L (3.5-5.1) Chloride Level 108 MMOL/L (98-107) H Carbon Dioxide Level 23 MMOL/L (21-32) Anion Gap 10 mmol/L (5-15) Blood Urea Nitrogen 39 mg/dL (7-18) H Creatinine 3.9 MG/DL (0.55-1.30) H Estimat Glomerular Filtration Rate 13.8 mL/min (>60) Glucose Level 104 MG/DL (74-106) # Calcium Level 7.4 MG/DL (8.5-10.1) L Phosphorus Level 3.0 MG/DL (2.5-4.9) Magnesium Level 1.9 MG/DL (1.8-2.4) Total Bilirubin 5.1 MG/DL (0.2-1.0) H Direct Bilirubin 4.7 MG/DL (0.0-0.3) H Aspartate Amino Transf (AST/SGOT) 216 U/L (15-37) H Alanine Aminotransferase (ALT/SGPT) 92 U/L (12-78) H Alkaline Phosphatase 989 U/L (46-116) H Total Creatine Kinase 89 U/L (26-140) Total Protein 3.8 G/DL (6.4-8.2) L Albumin 1.0 G/DL (3.4-5.0) L Globulin 2.8 g/dL Albumin/Globulin Ratio 0.4 (1.0-2.7) L Lacie-Cohen Virus Capsid Ag IgM Ab Pending Hepatitis A IgM Antibody Pending Impression/Recommendations Problems: (1) Sepsis (2) Hyperkalemia (3) Leukocytosis (4) Altered mental status (5) Diabetes mellitus out of control (6) Acute on chronic renal failure (7) NSTEMI (non-ST elevated myocardial infarction) (8) High anion gap metabolic acidosis (9) Sacral decubitus ulcer (10) Decubitus ulcer of heel (11) UTI (urinary tract infection) (12) JYOTI (acute kidney injury) Diagnostic Impression acute metabolic encephalopathy jyoti sepsis baseline dementia cont ivfs delirium precautions no need for mri brain cont Thee Burden MD May 16, 2020 23:19
--- NOTE | 2020-05-16 23:29 | Infectious Diseases Prog Note ---
Assessment/Plan Assessment/Plan ASSESSMENT AND PLAN: 1. 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 c.diff., pancreatitis, liver failure, bleeding, thrombocytopenia covid-19 infection, covid testing now + (negative prior admission) with pna, ? aspiration pna/hcap, mrsa screen negative PEG planned, hematoma on CT noted - meropenem and doxycycline - monitor labs, supportive care, chest x-ray, c.diff. - negative - no surgery per family, ERCP if can tolerate - poor prognosis, DNR/DNI - wound care per surgery - no indication for covid-19 treatment currently - sats stable 2. Acute renal failure. Dialysis. 3. Diabetes. 4. Hypertension. 5. Dyslipidemia. 6. Diabetes and hypertension treatment per primary care team. 7. Anemia. 8. Wound care per Surgery. 9. Allergic to penicillin. 10. Social history is negative. 11. Family history is noncontributory. 12. MAR is noted. 13. Case discussed with RN. Subjective Constitutional: Denies: fever HEENT: Reports: congestion Respiratory: Reports: shortness of breath Cardiovascular: Denies: chest pain Gastrointestinal/Abdominal: Reports: diarrhea; Denies: nausea, vomiting Genitourinary: Reports: other - + alaniz Neurologic: Reports: weakness, other - lethargic Psychiatric: Reports: other - NA Skin: Denies: rash Hematologic: Denies: bleeding Musculoskeletal: Reports: other - NA Allergies: Coded Allergies: PENICILLINS (Verified Allergy, Unknown, 12/05/17) Objective Last 24 Hour Vital Signs Date Time Temp Pulse Resp B/P (MAP) Pulse Ox O2 Delivery O2 Flow Rate FiO2 05/16/20 21:00 Room Air 05/16/20 20:00 97.4 91 22 142/95 (111) 92 05/16/20 20:00 76 05/16/20 16:00 84 05/16/20 16:00 97.5 84 20 155/69 (97) 95 05/16/20 12:00 82 05/16/20 12:00 97.7 73 20 179/87 (117) 95 05/16/20 09:00 Room Air 05/16/20 08:00 97.6 72 20 135/104 (114) 94 05/16/20 08:00 73 05/16/20 04:00 97.8 75 20 164/92 (116) 96 05/16/20 04:00 66 05/16/20 00:00 97.5 70 20 180/93 (122) 96 05/16/20 00:00 69 Height (Feet): 5 Height (Inches): 7.00 Weight (Pounds): 130 General Appearance: no acute distress HEENT: normocephalic, atraumatic, anicteric Respiratory/Chest: crackles/rales, rhonchi - bilaterally Cardiovascular: normal rate, regular rhythm Abdomen: normal bowel sounds, soft, non tender, no organomegaly Genitourinary: other - + alaniz Extremities: no cyanosis Skin: no rash Neurologic/Psychiatric: other - lethargic, weak Lymphatic: no neck adenopathy Musculoskeletal: no effusion Chest x-ray - 05/04/20 - Procedure: XRAY Chest 1v Indication: Shortness of breath Technique: One view of the chest Comparison: 03/31/2020 Findings: Interim placement of a right jugular temporary dialysis catheter in satisfactory position. No pneumothorax. The lungs and pleural spaces are clear. The heart size is normal Impression: No acute process Abdominal US: Impression: Ascites fluid Bilateral pleural effusions Negative for gallstones. Small amount of gallbladder sludge noted. Gallbladder wall thickening and pericholecystic edema is probably related to what ever process is causing the pleural fluid and ascites. Possibility of acute acalculous cholecystitis should also be considered, however. HIDA scan: IMPRESSION: 1. Lack of radiotracer excretion into the biliary tree precludes visualization of the gallbladder. 2. This study strongly suggests severe hepatocyte dysfunction. 3. Biliary tree and gallbladder cannot be evaluated on this exam due to lack of radiotracer extraction and excretion. 4. Correlate with presentation, and if there is further concern, consider additional imaging. CT abdomen and pelvis: IMPRESSION: 1. Partially visualized heterogeneous mass of the right inner thigh measuring up to 9.7 cm. This may represent benign etiology such as hematoma with underlying malignant process not excluded. Recommend clinical correlation for prior history of trauma. Further evaluation with MRI can be considered as clinically indicated. 2. Mild to moderate bilateral pleural effusions with associated compressive atelectasis. 3. Patchy bilateral ground glass airspace opacities, suspicious for atypical infectious process in the appropriate clinical setting. Differential also includes pulmonary edema. 4. Diffuse anasarca. 5. Enteric tube and Alaniz catheter within place. Chest x-ray - 05/15/20 - IMPRESSION: 1. There is been development of mild to moderate patchy bilateral mixed interstitial and alveolar infiltrates. These are most prominent in the perihilar regions and lower lobes. The infiltrates are most consistent with bilateral pneumonia, likely Covid 19. Asymmetric pulmonary edema considered less likely but cannot be excluded. 2. There is right IJ central venous catheter in good position at the aortocaval junction. There is an NG tube also good position with its tip in the mid stomach. Microbiology Date/Time Source Procedure Growth Status 05/15/20 06:00 Stool Clostridium difficile Toxin Assay - Final Complete 05/11/20 16:54 Nasopharynx SARS-CoV-2 RdRp Gene Assay - Final Complete 05/01/20 15:50 Urine,Clean Catch Urine Culture - Preliminary Yeast Species Resulted 05/01/20 15:30 Rectum - Final NO CARBAPENEM-RESISTANT ENTEROBACTERI... Complete 05/01/20 07:10 Blood Blood Culture - Final NO GROWTH AFTER 5 DAYS Complete Microbiology Date/Time Source Procedure Growth Status 05/15/20 06:00 Stool Clostridium difficile Toxin Assay - Final Complete Laboratory Tests Test 05/16/20 11:40 05/16/20 12:00 05/16/20 18:44 POC Whole Blood Glucose 98 MG/DL (74-106) 95 MG/DL (74-106) White Blood Count 25.7 K/UL (4.8-10.8) *H Red Blood Count 2.71 M/UL (4.20-5.40) L Hemoglobin 8.4 G/DL (12.0-16.0) L Hematocrit 24.4 % (37.0-47.0) L Mean Corpuscular Volume 90 FL (80-99) Mean Corpuscular Hemoglobin 31.0 PG (27.0-31.0) Mean Corpuscular Hemoglobin Concent 34.4 G/DL (32.0-36.0) Red Cell Distribution Width 16.6 % (11.6-14.8) H Platelet Count 51 K/UL (150-450) L Mean Platelet Volume 9.6 FL (6.5-10.1) Neutrophils (%) (Auto) % (45.0-75.0) Lymphocytes (%) (Auto) % (20.0-45.0) Monocytes (%) (Auto) % (1.0-10.0) Eosinophils (%) (Auto) % (0.0-3.0) Basophils (%) (Auto) % (0.0-2.0) Differential Total Cells Counted 100 Neutrophils % (Manual) 92 % (45-75) H Lymphocytes % (Manual) 3 % (20-45) L Monocytes % (Manual) 1 % (1-10) Eosinophils % (Manual) 0 % (0-3) Basophils % (Manual) 0 % (0-2) Band Neutrophils 4 % (0-8) Platelet Estimate Decreased L Platelet Morphology Normal Hypochromasia 1+ Anisocytosis 1+ Prothrombin Time 16.5 SEC (9.30-11.50) H Prothromb Time International Ratio 1.5 (0.9-1.1) H Activated Partial Thromboplast Time 59 SEC (23-33) H Sodium Level 141 MMOL/L (136-145) Potassium Level 3.5 MMOL/L (3.5-5.1) Chloride Level 108 MMOL/L (98-107) H Carbon Dioxide Level 23 MMOL/L (21-32) Anion Gap 10 mmol/L (5-15) Blood Urea Nitrogen 39 mg/dL (7-18) H Creatinine 3.9 MG/DL (0.55-1.30) H Estimat Glomerular Filtration Rate 13.8 mL/min (>60) Glucose Level 104 MG/DL (74-106) # Calcium Level 7.4 MG/DL (8.5-10.1) L Phosphorus Level 3.0 MG/DL (2.5-4.9) Magnesium Level 1.9 MG/DL (1.8-2.4) Total Bilirubin 5.1 MG/DL (0.2-1.0) H Direct Bilirubin 4.7 MG/DL (0.0-0.3) H Aspartate Amino Transf (AST/SGOT) 216 U/L (15-37) H Alanine Aminotransferase (ALT/SGPT) 92 U/L (12-78) H Alkaline Phosphatase 989 U/L (46-116) H Total Creatine Kinase 89 U/L (26-140) Total Protein 3.8 G/DL (6.4-8.2) L Albumin 1.0 G/DL (3.4-5.0) L Globulin 2.8 g/dL Albumin/Globulin Ratio 0.4 (1.0-2.7) L Lacie-Cohen Virus Capsid Ag IgM Ab Pending Hepatitis A IgM Antibody Pending Current Medications Medications (Trade) Dose Ordered Sig/Enrike Route PRN Reason Start Time Stop Time Status Last Admin Dose Admin Barium Sulfate (Readi-Cat 2) 450 ml NOW PRN ORAL Radiology Procedure 05/15/20 18:45 05/17/20 18:44 Bisacodyl (Dulcolax) 10 mg DAILYPRN PRN RECTAL Constipation 05/01/20 20:30 07/30/20 20:29 Chlorhexidine Gluconate (Holli-Hex 2%) 1 applic DAILY@2000 TOPIC 05/02/20 20:00 07/31/20 19:59 05/16/20 20:21 Dextrose (Dextrose 50%) 25 ml Q30M PRN IV Hypoglycemia 05/01/20 20:30 07/30/20 20:29 Dextrose (Dextrose 50%) 50 ml Q30M PRN IV Hypoglycemia 05/01/20 20:30 07/30/20 20:29 Dextrose/Sodium Chloride 1,000 ml @ 50 mls/hr Q20H IV 05/14/20 20:30 06/13/20 20:29 05/16/20 00:51 Doxycycline Hyclate 100 mg/ Dextrose 110 ml @ 110 mls/hr Q12HR IV 05/08/20 21:00 05/24/20 23:59 05/16/20 20:22 Hydralazine HCl (Apresoline) 10 mg Q4H PRN IV SBP >160 05/16/20 07:45 08/14/20 07:44 Hydralazine HCl (Apresoline) 10 mg QIDPRN PRN IV BLOOD PRE 05/16/20 16:00 08/14/20 15:59 Insulin Aspart (NovoLOG) Q6HR SUBQ 05/03/20 00:00 08/01/20 00:00 05/15/20 12:50 Insulin Detemir (Levemir) 5 units DAILY SUBQ 05/13/20 10:00 08/11/20 09:59 05/15/20 10:01 Meropenem 500 mg/ Sodium Chloride 50 ml @ 100 mls/hr Q24HRS IVPB 05/14/20 21:00 05/19/20 20:59 05/16/20 20:22 Metronidazole 100 ml @ 100 mls/hr Q12H IVPB 05/14/20 20:00 05/21/20 19:59 05/16/20 20:21 Morphine Sulfate (Morphine Sulfate) 2 mg Q4H PRN IVP For Pain 05/15/20 16:30 05/22/20 16:29 05/16/20 00:51 Ondansetron HCl (Zofran) 4 mg Q6H PRN IVP Nausea & Vomiting 05/01/20 20:30 05/31/20 20:29 Pantoprazole (Protonix) 40 mg EVERY 12 HOURS IVP 05/12/20 16:15 06/11/20 16:14 05/16/20 20:22 Sodium Hypochlorite (Dakin's Quarter Strength) 1 applic DAILY TOPIC 05/05/20 09:00 06/04/20 08:59 05/16/20 09:14 Elyse Leung MD May 16, 2020 23:29
[2020-05-17] VITALS: BP 111/61
--- NOTE | 2020-05-17 00:09 | NUR ---
NURSE NOTES: Noted that patient is obtunded, open eyes with localized pain. Will discontinue his restraints and will closely monitor.
[2020-05-17 04:00] VITALS: BP 137/68
[2020-05-17] MEDS: NovoLOG Insulin Flexpen SUBQ SCH ×5 (05:58→23:59)
--- NOTE | 2020-05-17 06:49 | Hematology/Onc Progress Note ---
Assessment/Plan Assessment/Plan Assessment and Recs # Left upper extremity axillary, subclavian, and brachial venous thrombosis --> heparin gtt was started-->now changed to lovenox as supertherapeutic->now HELD due to severe anemia --> consider eliquis or coumadin once closer to dc --> patient does have eleno/ckd, thus agent needed not affected by renal function --> monitor for bleed # Thrombocytopenia likely secondary to left heel and foot osteomyelitis/ infection/dic --> likely due to infected wounds, heel ulcerations --> ABX flucon/flagyl/cefepime-->doxy/cefepime --> Peripheral smear, reviewed, hold off flow for now --> elev inflammatory markers --> WBC 35-->22-->18-->14-->13-->11.4->>>13-->17-->31 --> plt 55-->23-->26-->22-->54-->51 --> 2 units plt 05/13 # Anemia due to underlying chronic disease. --> Continue to closely monitor for improvement. --> Anemia w/u has been reviewed. Will trend cbc daily. --> Hgb goal >7 -> hgb 12-->10.7->9.4-->9.5->10-->7.3-->5.7-->6.2-->8-->6.4-->10-->8.4 --> 2 units 05/07 --> anemia panel reviewed before # Hyperkalemia. Given Kayexalate. --> Improved # Diabetic ketoacidosis. --> per before, improved # ESRD --> hd with line inserted # Shortness of breath in past with dka # Dvt ppx --> scds The time the note was entered does not necessarily correspond to the time the patient was seen. Subjective HEENT: Denies: no symptoms, eye pain, blurred vision, tearing, double vision, ear pain, ear discharge, nose pain, nose congestion, throat pain, throat swelling, mouth pain, mouth swelling, other Cardiovascular: Denies: no symptoms, chest pain, edema, irregular heart rate, lightheadedness, palpitations, syncope, other Allergies: Coded Allergies: PENICILLINS (Verified Allergy, Unknown, 12/05/17) Subjective 05/05 hgb 7.3 this am, plts lower, no bleeding, ptt elev, will hold off hep gtt 05/06 labs noted, no bleeding, now on lovenox sq, sis somnolent in am 05/07 is on lovenox sq, is s/p transfusion, labs noted, on abx 05/09 anticoag is held, pending for cbc today, labs noted 05/10 anticoag held, for platelets to goal >50k, with coffee ground emesis 05/11 hd was given last night, bp was low and albumin administered, bp better 05/12 nv, labs reviewed, aphasic, plt 26 yesterday, meds reviewed, to get cbc today 05/13 2nd bag of platelets is pending, jessie Rn, plt recently 22k 05/14 plt improved to 54k, hit panel pending, is on abx 05/15: plt 59k, labs reviewed. 05/16: ct abd reviewed hematoma 05/17 remains confused, labs pending, plts in 50 range, wbc 24, on abx Objective Objective Current Medications Medications (Trade) Dose Ordered Sig/Enrike Route PRN Reason Start Time Stop Time Status Last Admin Dose Admin Barium Sulfate (Readi-Cat 2) 450 ml NOW PRN ORAL Radiology Procedure 05/15/20 18:45 05/17/20 18:44 Bisacodyl (Dulcolax) 10 mg DAILYPRN PRN RECTAL Constipation 05/01/20 20:30 07/30/20 20:29 Chlorhexidine Gluconate (Holli-Hex 2%) 1 applic DAILY@1999 TOPIC 05/02/20 20:00 07/31/20 19:59 05/16/20 20:21 Dextrose (Dextrose 50%) 25 ml Q30M PRN IV Hypoglycemia 05/01/20 20:30 07/30/20 20:29 Dextrose (Dextrose 50%) 50 ml Q30M PRN IV Hypoglycemia 05/01/20 20:30 07/30/20 20:29 Dextrose/Sodium Chloride 1,000 ml @ 50 mls/hr Q20H IV 05/14/20 20:30 06/13/20 20:29 05/16/20 00:51 Doxycycline Hyclate 100 mg/ Dextrose 110 ml @ 110 mls/hr Q12HR IV 05/08/20 21:00 05/24/20 23:59 05/16/20 20:22 Hydralazine HCl (Apresoline) 10 mg Q4H PRN IV SBP >160 05/16/20 07:45 08/14/20 07:44 Hydralazine HCl (Apresoline) 10 mg QIDPRN PRN IV BLOOD PRE 05/16/20 16:00 08/14/20 15:59 Insulin Aspart (NovoLOG) Q6HR SUBQ 05/03/20 00:00 08/01/20 00:00 05/17/20 05:58 Insulin Detemir (Levemir) 5 units DAILY SUBQ 05/13/20 10:00 08/11/20 09:59 05/15/20 10:01 Meropenem 500 mg/ Sodium Chloride 50 ml @ 100 mls/hr Q24HRS IVPB 05/14/20 21:00 05/19/20 20:59 05/16/20 20:22 Metronidazole 100 ml @ 100 mls/hr Q12H IVPB 05/14/20 20:00 05/21/20 19:59 05/16/20 20:21 Morphine Sulfate (Morphine Sulfate) 2 mg Q4H PRN IVP For Pain 05/15/20 16:30 05/22/20 16:29 05/16/20 00:51 Ondansetron HCl (Zofran) 4 mg Q6H PRN IVP Nausea & Vomiting 05/01/20 20:30 05/31/20 20:29 Pantoprazole (Protonix) 40 mg EVERY 12 HOURS IVP 05/12/20 16:15 06/11/20 16:14 05/16/20 20:22 Sodium Hypochlorite (Dakin's Quarter Strength) 1 applic DAILY TOPIC 05/05/20 09:00 06/04/20 08:59 05/16/20 09:14 Last 24 Hour Vital Signs Date Time Temp Pulse Resp B/P (MAP) Pulse Ox O2 Delivery O2 Flow Rate FiO2 05/17/20 04:00 76 05/17/20 04:00 97.4 77 19 137/68 (91) 93 05/17/20 00:00 97.6 80 20 111/61 (78) 90 05/17/20 00:00 78 05/16/20 21:00 Room Air 05/16/20 20:00 97.4 91 22 142/95 (111) 92 05/16/20 20:00 76 05/16/20 16:00 84 05/16/20 16:00 97.5 84 20 155/69 (97) 95 05/16/20 12:00 82 05/16/20 12:00 97.7 73 20 179/87 (117) 95 05/16/20 09:00 Room Air 05/16/20 08:00 97.6 72 20 135/104 (114) 94 05/16/20 08:00 73 05/16/20 04:00 97.8 75 20 164/92 (116) 96 05/16/20 04:00 66 05/16/20 00:00 97.5 70 20 180/93 (122) 96 05/16/20 00:00 69 05/15/20 21:00 Room Air 05/15/20 20:00 75 05/15/20 20:00 97.7 70 20 166/80 (108) 93 05/15/20 17:09 97.6 05/15/20 16:00 80 05/15/20 16:00 97.5 78 20 151/79 (103) 98 05/15/20 13:15 78 05/15/20 12:00 97.6 79 21 127/78 (94) 99 05/15/20 09:00 Room Air 05/15/20 08:00 81 05/15/20 08:00 97.8 87 24 133/77 (95) 96 Intake and Output 05/16/20 05/17/20 19:00 07:00 Output Total 2000 ml Balance -2000 ml Hemodialysis UF 2000 ml # Bowel Movements 1 1 Labs Test 05/14/20 10:02 05/14/20 18:13 05/14/20 18:18 05/15/20 06:25 POC Whole Blood Glucose 142 MG/DL (74-106) 179 MG/DL (74-106) White Blood Count 33.3 K/UL (4.8-10.8) 32.2 K/UL (4.8-10.8) Red Blood Count 3.08 M/UL (4.20-5.40) 3.33 M/UL (4.20-5.40) Hemoglobin 9.7 G/DL (12.0-16.0) 10.2 G/DL (12.0-16.0) Hematocrit 28.2 % (37.0-47.0) 31.4 % (37.0-47.0) Mean Corpuscular Volume 92 FL (80-99) 94 FL (80-99) Mean Corpuscular Hemoglobin 31.6 PG (27.0-31.0) 30.8 PG (27.0-31.0) Mean Corpuscular Hemoglobin Concent 34.5 G/DL (32.0-36.0) 32.6 G/DL (32.0-36.0) Red Cell Distribution Width 15.8 % (11.6-14.8) 14.9 % (11.6-14.8) Platelet Count 46 K/UL (150-450) 59 K/UL (150-450) Mean Platelet Volume 14.2 FL (6.5-10.1) 10.1 FL (6.5-10.1) Neutrophils (%) (Auto) % (45.0-75.0) % (45.0-75.0) Lymphocytes (%) (Auto) % (20.0-45.0) % (20.0-45.0) Monocytes (%) (Auto) % (1.0-10.0) % (1.0-10.0) Eosinophils (%) (Auto) % (0.0-3.0) % (0.0-3.0) Basophils (%) (Auto) % (0.0-2.0) % (0.0-2.0) Differential Total Cells Counted 100 100 Neutrophils % (Manual) 85 % (45-75) 86 % (45-75) Lymphocytes % (Manual) 3 % (20-45) 6 % (20-45) Monocytes % (Manual) 1 % (1-10) 3 % (1-10) Eosinophils % (Manual) 0 % (0-3) 0 % (0-3) Basophils % (Manual) 0 % (0-2) 0 % (0-2) Band Neutrophils 11 % (0-8) 5 % (0-8) Platelet Estimate Decreased Decreased Platelet Morphology Normal Normal Polychromasia 1+ Anisocytosis 1+ 1+ Hypochromasia 1+ Sodium Level 141 MMOL/L (136-145) Potassium Level 3.5 MMOL/L (3.5-5.1) Chloride Level 106 MMOL/L (98-107) Carbon Dioxide Level 21 MMOL/L (21-32) Anion Gap 14 mmol/L (5-15) Blood Urea Nitrogen 44 mg/dL (7-18) Creatinine 4.6 MG/DL (0.55-1.30) Estimat Glomerular Filtration Rate 11.4 mL/min (>60) Glucose Level 210 MG/DL (74-106) Calcium Level 7.5 MG/DL (8.5-10.1) Phosphorus Level 3.9 MG/DL (2.5-4.9) Magnesium Level 2.1 MG/DL (1.8-2.4) Total Bilirubin 5.6 MG/DL (0.2-1.0) Direct Bilirubin 5.1 MG/DL (0.0-0.3) Aspartate Amino Transf (AST/SGOT) 298 U/L (15-37) Alanine Aminotransferase (ALT/SGPT) 118 U/L (12-78) Alkaline Phosphatase 1260 U/L (46-116) Total Protein 4.7 G/DL (6.4-8.2) Albumin 1.3 G/DL (3.4-5.0) Test 05/16/20 11:40 05/16/20 12:00 05/16/20 18:44 POC Whole Blood Glucose 98 MG/DL (74-106) 95 MG/DL (74-106) White Blood Count 25.7 K/UL (4.8-10.8) Red Blood Count 2.71 M/UL (4.20-5.40) Hemoglobin 8.4 G/DL (12.0-16.0) Hematocrit 24.4 % (37.0-47.0) Mean Corpuscular Volume 90 FL (80-99) Mean Corpuscular Hemoglobin 31.0 PG (27.0-31.0) Mean Corpuscular Hemoglobin Concent 34.4 G/DL (32.0-36.0) Red Cell Distribution Width 16.6 % (11.6-14.8) Platelet Count 51 K/UL (150-450) Mean Platelet Volume 9.6 FL (6.5-10.1) Neutrophils (%) (Auto) % (45.0-75.0) Lymphocytes (%) (Auto) % (20.0-45.0) Monocytes (%) (Auto) % (1.0-10.0) Eosinophils (%) (Auto) % (0.0-3.0) Basophils (%) (Auto) % (0.0-2.0) Differential Total Cells Counted 100 Neutrophils % (Manual) 92 % (45-75) Lymphocytes % (Manual) 3 % (20-45) Monocytes % (Manual) 1 % (1-10) Eosinophils % (Manual) 0 % (0-3) Basophils % (Manual) 0 % (0-2) Band Neutrophils 4 % (0-8) Platelet Estimate Decreased Platelet Morphology Normal Hypochromasia 1+ Anisocytosis 1+ Prothrombin Time 16.5 SEC (9.30-11.50) Prothromb Time International Ratio 1.5 (0.9-1.1) Activated Partial Thromboplast Time 59 SEC (23-33) Sodium Level 141 MMOL/L (136-145) Potassium Level 3.5 MMOL/L (3.5-5.1) Chloride Level 108 MMOL/L (98-107) Carbon Dioxide Level 23 MMOL/L (21-32) Anion Gap 10 mmol/L (5-15) Blood Urea Nitrogen 39 mg/dL (7-18) Creatinine 3.9 MG/DL (0.55-1.30) Estimat Glomerular Filtration Rate 13.8 mL/min (>60) Glucose Level 104 MG/DL (74-106) Calcium Level 7.4 MG/DL (8.5-10.1) Phosphorus Level 3.0 MG/DL (2.5-4.9) Magnesium Level 1.9 MG/DL (1.8-2.4) Total Bilirubin 5.1 MG/DL (0.2-1.0) Direct Bilirubin 4.7 MG/DL (0.0-0.3) Aspartate Amino Transf (AST/SGOT) 216 U/L (15-37) Alanine Aminotransferase (ALT/SGPT) 92 U/L (12-78) Alkaline Phosphatase 989 U/L (46-116) Total Creatine Kinase 89 U/L (26-140) Total Protein 3.8 G/DL (6.4-8.2) Albumin 1.0 G/DL (3.4-5.0) Globulin 2.8 g/dL Albumin/Globulin Ratio 0.4 (1.0-2.7) Height (Feet): 5 Height (Inches): 7.00 Weight (Pounds): 130 Objective Physical Exam Vitals: reviewed, normal General Appearance: no apparent distress, non-toxic, lethargic HEENT: bilateral eye normal inspection, bilateral eye PERRL Neck: full range of motion, supple/symm/no masses Resp: chest non-tender, lungs clear, normal breath sounds, speaking full sentences Cardiovascular: regular rate, rhythm, no edema Gastrointestinal: normal bowel sounds, non tender Rectal: deferred Genitourinary: normal inspection, no CVA tenderness Musculoskeletal: back normal, gait/station normal, non-tender Lymphatic: no adenopathy David De Jesus MD May 17, 2020 06:49
--- NOTE | 2020-05-17 07:20 | NUR ---
NURSE HAND-OFF REPORT: Important Events on Shift: Patent has been resting well the whole shift and no desaturation noted. Discontinue patient's restraints due to her present condition. Patient Status: Patient is awake on bed in stable condition. Plan of care endorsed. Diet: NPO Pending Orders: Chest xray Pending Results/Labs:AM lab result Pending MD notification:none Latest Vital Signs: Temperature 97.4 , Pulse 77 , B/P 137 /68 , Respiratory Rate 19 , O2 SAT 93 , Room Air, O2 Flow Rate 3.0 . Vital Sign Comment: stable EKG Rhythm: Sinus Rhythm Rhythm change?: N MD Notified?: - MD Response: Latest Hernandez Fall Score: 70 Fall Risk: High Risk Safety Measures: Call light Within Reach, Bed Alarm Zone 2, Side Rails Side Rails x3, Bed position Low and Locked. Fall Precautions: Yellow Socks Yellow Gown Door Sign Patient Fall Education Report given to ZACH [place].
--- NOTE | 2020-05-17 07:33 | NUR ---
NURSE NOTES: pt is in bed and asleep. IJ is patent, showing no signs of infection. bed is locked and in lowest position, call light is within reach. pt is on cardiac cath lab radiology technologist and RA showing no signs of cardiac distress.
[2020-05-17 08:00] VITALS: BP 140/79
[2020-05-17] MEDS: D5NS 1,000 ML IV SCH (08:14)
[2020-05-17] MEDS: Doxycycline Hyclate 100 MG in D5W 110 ML IV SCH ×2 (09:12→23:39)
[2020-05-17] MEDS: Pantoprazole Inj IVP SCH ×2 (09:13→20:42)
[2020-05-17] MEDS: Dakin's 0.125% Soln (Quarter Strength) 16oz TOPIC SCH (09:15)
[2020-05-17] MEDS: Levemir Flexpen SUBQ SCH (09:34)
--- NOTE | 2020-05-17 10:04 | NUR ---
CASE MANAGEMENT:REVIEW 05/17/20 SI:SEPSIS. RT THIGH MASS/HEMATOMA ACUTE RENAL FAILURE ~ NOW ESRD ~ NON TUNNELLED CATH S/P PEG PLACEMENT 05/12/20 97.4 77 19 137/68 93% ON RA WBC+25.7 H/H-8.4/24.4 PLT-51 BUN+39 CR+3.9 IS: IV MEROPENEM Q24 IV FLAGYL Q12 IV DOXYCYCLINE Q12 IVF@50/HR INSULIN SQ Q6HRS : TELEMETRY STATUS DCP: FROM [facility]
[2020-05-17 10:47] LABS: HEMATOCRIT 25.1 % (37.0-47.0); HEMOGLOBIN 8.7 G/DL (12.0-16.0); MEAN CORPUSCULAR VOLUME 90 FL (80-99); PLATELET COUNT 35 K/UL (150-450); RED BLOOD COUNT 2.81 M/UL (4.20-5.40); RED CELL DISTRIBUTION WIDTH 16.6 % (11.6-14.8)
[2020-05-17 10:48] LABS: WHITE BLOOD COUNT 24.5 K/UL (4.8-10.8)
--- NOTE | 2020-05-17 10:58 | General Progress Note ---
Subjective ROS Limited/Unobtainable: No Allergies: Coded Allergies: PENICILLINS (Verified Allergy, Unknown, 12/05/17) Objective Last 24 Hour Vital Signs Date Time Temp Pulse Resp B/P (MAP) Pulse Ox O2 Delivery O2 Flow Rate FiO2 05/17/20 09:00 Room Air 05/17/20 08:00 78 05/17/20 08:00 97.5 60 18 140/79 (99) 93 05/17/20 04:00 76 05/17/20 04:00 97.4 77 19 137/68 (91) 93 05/17/20 00:00 97.6 80 20 111/61 (78) 90 05/17/20 00:00 78 05/16/20 21:00 Room Air 05/16/20 20:00 97.4 91 22 142/95 (111) 92 05/16/20 20:00 76 05/16/20 16:00 84 05/16/20 16:00 97.5 84 20 155/69 (97) 95 05/16/20 12:00 82 05/16/20 12:00 97.7 73 20 179/87 (117) 95 Intake and Output 05/16/20 05/17/20 19:00 07:00 Output Total 2000 ml Balance -2000 ml Hemodialysis UF 2000 ml # Bowel Movements 1 1 Laboratory Tests 05/16/20 11:40: POC Whole Blood Glucose 98 05/16/20 12:00: White Blood Count 25.7*H, Red Blood Count 2.71L, Hemoglobin 8.4L, Hematocrit 24.4L, Mean Corpuscular Volume 90, Mean Corpuscular Hemoglobin 31.0, Mean Corpuscular Hemoglobin Concent 34.4, Red Cell Distribution Width 16.6H, Platelet Count 51L, Mean Platelet Volume 9.6, Neutrophils (%) (Auto) , Lymphocytes (%) ( Auto) , Monocytes (%) (Auto) , Eosinophils (%) (Auto) , Basophils (%) (Auto) , Differential Total Cells Counted 100, Neutrophils % (Manual) 92H, Lymphocytes % (Manual) 3L, Monocytes % (Manual) 1, Eosinophils % (Manual) 0, Basophils % (Manual) 0, Band Neutrophils 4, Platelet Estimate DecreasedL, Platelet Morphology Normal, Hypochromasia 1+, Anisocytosis 1+, Prothrombin Time 16.5H, Prothromb Time International Ratio 1.5H, Activated Partial Thromboplast Time 59H , Sodium Level 141, Potassium Level 3.5, Chloride Level 108H, Carbon Dioxide Level 23, Anion Gap 10, Blood Urea Nitrogen 39H, Creatinine 3.9H, Estimat Glomerular Filtration Rate 13.8, Glucose Level 104#, Calcium Level 7.4L, Phosphorus Level 3.0, Magnesium Level 1.9, Total Bilirubin 5.1H, Direct Bilirubin 4.7H, Aspartate Amino Transf (AST/SGOT) 216H, Alanine Aminotransferase (ALT/SGPT) 92H, Alkaline Phosphatase 989H, Total Creatine Kinase 89, Total Protein 3.8L, Albumin 1.0L, Globulin 2.8, Albumin/Globulin Ratio 0.4L, Lacie- Cohen Virus Capsid Ag IgM Ab [Pending], Hepatitis A IgM Antibody [Pending] 05/16/20 18:44: POC Whole Blood Glucose 95 05/17/20 10:30: White Blood Count 24.5*H, Red Blood Count 2.81L, Hemoglobin 8.7L, Hematocrit 25.1L, Mean Corpuscular Volume 90, Mean Corpuscular Hemoglobin 31.1H, Mean Corpuscular Hemoglobin Concent 34.7, Red Cell Distribution Width 16.6H, Platelet Count 35L, Mean Platelet Volume 11.5H, Neutrophils (%) (Auto) , Lymphocytes (%) (Auto) , Monocytes (%) (Auto) , Eosinophils (%) (Auto) , Basophils (%) (Auto) , Neutrophils % (Manual) [Pending], Lymphocytes % (Manual) [Pending], Platelet Estimate [Pending], Platelet Morphology [Pending], Sodium Level [Pending], Potassium Level [Pending], Chloride Level [Pending], Carbon Dioxide Level [Pending], Blood Urea Nitrogen [Pending], Creatinine [Pending], Estimat Glomerular Filtration Rate [Pending], Glucose Level [Pending], Calcium Level [Pending], Phosphorus Level [Pending], Magnesium Level [Pending], Total Bilirubin [Pending], Aspartate Amino Transf (AST/SGOT) [Pending], Alanine Aminotransferase (ALT/SGPT) [Pending], Alkaline Phosphatase [Pending], Total Protein [Pending], Albumin [Pending], Globulin [Pending] Height (Feet): 5 Height (Inches): 7.00 Weight (Pounds): 130 General Appearance: no apparent distress EENT: normal ENT inspection Neck: supple Cardiovascular: normal rate Respiratory/Chest: decreased breath sounds Abdomen: normal bowel sounds, non tender, soft Extremities: non-tender Assessment/Plan Assessment/Plan: Assessment: Progressive leukocytosis / sepsis - poor prognosis abnormal LFT - multifactorial - sepsis/COVID/ishcemia, doubt cholecystitis or cholangitis (+) (R) inner thigh fluid collection, presumed hematoma osteomyelitis Renal failure Severe thrombocytopenia - poor candidate for intervention Rectal bleeding, ? ischemic colitis - resolved DM - poor COVID prognosis COVID Pneumonia, bilateral dysphagia / NGT Dementia Recommendations: supportive care TF abx per ID PPI follow labs poor prognosis - Shai Hay MD May 17, 2020 10:58
[2020-05-17 11:15] LABS: ALBUMIN 1.2 G/DL (3.4-5.0); ALBUMIN/GLOBULIN RATIO 0.4 (1.0-2.7); CALCIUM 7.4 MG/DL (8.5-10.1); CREATININE 3.4 MG/DL (0.55-1.30); PHOSPHORUS 3.2 MG/DL (2.5-4.9); POTASSIUM 3.4 MMOL/L (3.5-5.1)
--- NOTE | 2020-05-17 11:28 | NUR ---
NURSE NOTES: spoke to Dr. Putnam on the phone and was instructed to continue tube feeding
[2020-05-17 11:44] LABS: BILIRUBIN,DIRECT 5.3 MG/DL (0.0-0.3)
[2020-05-17 12:00] VITALS: BP 135/69
--- NOTE | 2020-05-17 13:03 | Surgery Progress Note ---
Surgery Progress Note Subjective Symptoms: worse Objective Last 24 Hour Vital Signs Date Time Temp Pulse Resp B/P (MAP) Pulse Ox O2 Delivery O2 Flow Rate FiO2 05/17/20 11:40 79 135/69 05/17/20 09:00 Room Air 05/17/20 08:00 78 05/17/20 08:00 97.5 60 18 140/79 (99) 93 05/17/20 04:00 76 05/17/20 04:00 97.4 77 19 137/68 (91) 93 05/17/20 00:00 97.6 80 20 111/61 (78) 90 05/17/20 00:00 78 05/16/20 21:00 Room Air 05/16/20 20:00 97.4 91 22 142/95 (111) 92 05/16/20 20:00 76 05/16/20 16:00 84 05/16/20 16:00 97.5 84 20 155/69 (97) 95 I&O Intake and Output 05/16/20 05/17/20 19:00 07:00 Output Total 2000 ml Balance -2000 ml Hemodialysis UF 2000 ml # Bowel Movements 1 1 Dressing: saturated Cardiovascular: RSR Respiratory: decreased breath sounds Abdomen: non-tender, present bowel sounds, non-distended, decreased bowel sounds Extremities: edema, no tenderness, no cyanosis, pulses, other Laboratory Tests Test 05/16/20 18:44 05/17/20 10:30 POC Whole Blood Glucose 95 MG/DL (74-106) White Blood Count 24.5 K/UL (4.8-10.8) *H Red Blood Count 2.81 M/UL (4.20-5.40) L Hemoglobin 8.7 G/DL (12.0-16.0) L Hematocrit 25.1 % (37.0-47.0) L Mean Corpuscular Volume 90 FL (80-99) Mean Corpuscular Hemoglobin 31.1 PG (27.0-31.0) H Mean Corpuscular Hemoglobin Concent 34.7 G/DL (32.0-36.0) Red Cell Distribution Width 16.6 % (11.6-14.8) H Platelet Count 35 K/UL (150-450) L Mean Platelet Volume 11.5 FL (6.5-10.1) H Neutrophils (%) (Auto) % (45.0-75.0) Lymphocytes (%) (Auto) % (20.0-45.0) Monocytes (%) (Auto) % (1.0-10.0) Eosinophils (%) (Auto) % (0.0-3.0) Basophils (%) (Auto) % (0.0-2.0) Differential Total Cells Counted 100 Neutrophils % (Manual) 93 % (45-75) H Lymphocytes % (Manual) 5 % (20-45) L Monocytes % (Manual) 1 % (1-10) Eosinophils % (Manual) 0 % (0-3) Basophils % (Manual) 0 % (0-2) Myelocytes % 1 % (0-0) H Band Neutrophils 0 % (0-8) Platelet Estimate Decreased L Platelet Morphology Giant Platelets Occasional Hypochromasia 1+ Anisocytosis 1+ Sodium Level 142 MMOL/L (136-145) Potassium Level 3.4 MMOL/L (3.5-5.1) L Chloride Level 108 MMOL/L (98-107) H Carbon Dioxide Level 25 MMOL/L (21-32) Anion Gap 9 mmol/L (5-15) Blood Urea Nitrogen 31 mg/dL (7-18) H Creatinine 3.4 MG/DL (0.55-1.30) H Estimat Glomerular Filtration Rate 16.2 mL/min (>60) Glucose Level 135 MG/DL (74-106) H Calcium Level 7.4 MG/DL (8.5-10.1) L Phosphorus Level 3.2 MG/DL (2.5-4.9) Magnesium Level 1.9 MG/DL (1.8-2.4) Total Bilirubin 6.0 MG/DL (0.2-1.0) H Direct Bilirubin 5.3 MG/DL (0.0-0.3) H Aspartate Amino Transf (AST/SGOT) 206 U/L (15-37) H Alanine Aminotransferase (ALT/SGPT) 82 U/L (12-78) H Alkaline Phosphatase 990 U/L (46-116) H Total Protein 4.3 G/DL (6.4-8.2) L Albumin 1.2 G/DL (3.4-5.0) L Globulin 3.1 g/dL Albumin/Globulin Ratio 0.4 (1.0-2.7) L Plan Problems: (1) UTI (urinary tract infection) (2) JYOTI (acute kidney injury) (3) Hyperkalemia (4) Leukocytosis Assessment & Plan: dvt upper extremity picc related remove picc once temp line in anticoag as per heme worsening leukocytosis on abx acute hepatic insufficiency unfortunately prognosis very guarded (5) Sepsis (6) Altered mental status (7) Sacral decubitus ulcer Assessment & Plan: 69-year-old female multiple comorbidities presented with failure to thrive lethargic altered mental status noted to have abnormal labs and have draining bilateral heel unstageable decubitus ulcers multiple skin lesions on the lower extremities as well as a sacral decubitus ulcer as well. Imaging reviewed. Patient has been eating less recently but currently is eating at the bedside though does not look like she is taking much in. Treatment plan Turn every 2 hours Offload pressure with pillows pillow on side as necessary as well as underneath calf to elevate heels Air soft mattress nutritional optimization continue IV antibiotics per infectious disease SACRUM- STAGE - UNSTAGEABLE PRESSURE ULCER MEASURES 6.0X13.0X0.2. WOUND BED WITH 80% SLOUGH AND 20% PINK GRANULATION TISSUE. NOTED FOUL ODOR RECOMMEND-CLEAN WITH SALINE. APPLY WET TO DRY DRESSINGS WITH DAKINS 0.25% DAKIN'S SOLUTION.COVER WITH OPTIFOAM DRESSING. REPLACE DRESSING DAILY. LEFT ISCHIUM-STAGE II PRESSURE ULCER MEASURES 4.5X0.5X0.2CM. PINK GRANULATION TISSUE NOTED. RECOMMEND- CLEAN WITH SALINE, PAT DRY. APPLY CALAZINE AND COVER WITH OPTIFOAM DRESSING. LEFT ANTERIOR LOW LEG-VENOUS ULCER MEASURES 8.0X2.6X0.2CM 100% YELLOW SLOUGH NOTED TO WOUND BED. RECOMMEND- CLEAN WITH SALINE, PA DRY. APPLY THERAHONEY. COVER WITH GAUZE AND SECURE WITH KERLIX. REPLACE DRESSING DAILY. LEFT HEEL- UNSTAGEABLE PRESSURE ULCER MEASURES 9.5X8.0X0.3CM. 100% MOIST BLACK ESCHAR. WITH STRONG FOUL ODOR. RECOMMEND- CLEAN WITH SALINE. APPLY WET TO DRY DRESSINGS WITH DAKINS 0.25% DAKIN'S SOLUTION. COVER WITH GAUZE, ABD PAD AND SECURE WITH KERLIX. REPLACE DAILY. RIGHT ANTERIOR LOW LEG-VENOUS ULCER MEASURES 2.5X3.0X0.2CM WITH PINK GRANULATION TISSUE. RIGHT ANTERIOR DISTAL LOW LEG -VENOUS ULCER MEASURES 1.5X0.2X0.1CM WITH PINK GRANULATION TISSUE. RECOMMEND-CLEAN WITH SALINE PAT DRY. APPLY XEROFORM GAUZE, GAUZE AND COVER WITH KERLIX. REPLACE DAILY RIGHT HEEL-DTI MEASURES 2.5X3.0CM. AREA DARK PURPLE IN COLOR AND BOGGY TO TOUCH. NO DRAINAGE NOTED. RECOMMEND- PAINT WITH CAVILON SKIN PROTECTOR, GAUZE AND WRAP WITH KERLIX. REPLACE DAILY. We will follow with recommendations thank you for letting participate patient's care Fairly numerous bubbles of soft tissue gas are seen within the subcutaneous fat and possibly the intrinsic musculature of the plantar surface of the heel. There is high STIR and decreased T1 signal within the calcaneus, and there is indistinctness of the inferior and posterior cortical margins of the calcaneus. There is some soft tissue ulceration of the plantar surface of the heel, as well as marked thinning of the subcutaneous fat overlying the calcaneal tuberosity. There is considerable edema of the plantar surface subcutaneous fat. There is also edema of the subcutaneous fat of the lateral and medial ankle. No focal discrete fluid collection to suggest drainable abscess demonstrated. Impression: Evidence of ulceration overlying the calcaneal tuberosity Soft tissue gas within the heel, as described. This may represent penetration t he above, but is worrisome for infection with a gas-forming organism Abnormal signal within the posterior and mid calcaneus, highly suspicious for acute osteomyelitis (8) Decubitus ulcer of heel (9) Diabetes mellitus out of control (10) Acute on chronic renal failure (11) NSTEMI (non-ST elevated myocardial infarction) (12) High anion gap metabolic acidosis (13) Choledocholithiasis Assessment & Plan: pending plt transfusion repeat labs in am needs EGD +/- peg PEG canceled given low PLT resume NGTF plan peg next week Unremarkable inferior vena cava. There is bilateral pleural fluid. Gallbladder demonstrates sludge. No definite gallstones. Gallbladder wall is thickened, measuring up to 3 mm thick, and there is pericholecystic edema. Patient unable to report sonographic Garcia's sign. Common bile duct measures 3 mm in diameter. No intrahepatic biliary ductal dilatation. Liver demonstrates normal echogenicity, no focal abnormality. Portal vein and hepatic veins are patent. There is trace ascites fluid. Pancreas is unremarkable. Spleen is unremarkable. Left kidney measures 11.4 cm in length. Right kidney measures 11.1 cm length. Both kidneys demonstrate slightly increased echogenicity. There is no hydron ephrosis. No focal abnormality . Non-aneurysmal abdominal aorta . Impression: Ascites fluid Bilateral pleural effusions Negative for gallstones. Small amount of gallbladder sludge noted. Gallbladder wall thickening and pericholecystic edema is probably related to what ever process is causing the pleural fluid and ascites. Possibility of acute acalculous cholecystitis should also be considered, however. Echogenic kidneys, consistent with medical renal disease worsening overall unfortunately declining severe possible jeremy acalculous. but possible related to liver insufficiency high risk for bleeding and procedure recommend comfort measures (14) DVT (deep venous thrombosis) Joseph Alamo May 17, 2020 13:03
--- NOTE | 2020-05-17 13:11 | Nephrology Progress Note ---
Assessment/Plan Plan #JYOTI - concerns for vancomycin nephrotoxicity- r/o ATN- baseline Cr 0.8- also with volume depletion # osteomyelitis of LLE- on vanco, cefepime and flagyl #AMS #diabetes # hypertension, #hyperlipidemia # dementia. - HD tomorrow - DC midodrine 5 TID - PEG postponed - plt transfusion per hematology - monitor hemoglobin - renal US with no acute findings - anibiotics per ID- - avoid vanco for now - monitor renal output - add epo 4k TIW time spent 45 min Subjective ROS Limited/Unobtainable: Yes Subjective s/p HD yesterday Objective Objective Last 24 Hour Vital Signs Date Time Temp Pulse Resp B/P (MAP) Pulse Ox O2 Delivery O2 Flow Rate FiO2 05/17/20 11:40 79 135/69 05/17/20 09:00 Room Air 05/17/20 08:00 78 05/17/20 08:00 97.5 60 18 140/79 (99) 93 05/17/20 04:00 76 05/17/20 04:00 97.4 77 19 137/68 (91) 93 05/17/20 00:00 97.6 80 20 111/61 (78) 90 05/17/20 00:00 78 05/16/20 21:00 Room Air 05/16/20 20:00 97.4 91 22 142/95 (111) 92 05/16/20 20:00 76 05/16/20 16:00 84 05/16/20 16:00 97.5 84 20 155/69 (97) 95 Intake and Output 05/16/20 05/17/20 19:00 07:00 Output Total 2000 ml Balance -2000 ml Hemodialysis UF 2000 ml # Bowel Movements 1 1 Laboratory Tests 05/16/20 18:44: POC Whole Blood Glucose 95 05/17/20 10:30: White Blood Count 24.5*H, Red Blood Count 2.81L, Hemoglobin 8.7L, Hematocrit 25.1L, Mean Corpuscular Volume 90, Mean Corpuscular Hemoglobin 31.1H, Mean Corpuscular Hemoglobin Concent 34.7, Red Cell Distribution Width 16.6H, Platelet Count 35L, Mean Platelet Volume 11.5H, Neutrophils (%) (Auto) , Lymphocytes (%) (Auto) , Monocytes (%) (Auto) , Eosinophils (%) (Auto) , Basophils (%) (Auto) , Differential Total Cells Counted 100, Neutrophils % (Manual) 93H, Lymphocytes % (Manual) 5L, Monocytes % (Manual) 1, Eosinophils % (Manual) 0, Basophils % (Manual) 0, Myelocytes % 1H, Band Neutrophils 0, Platelet Estimate DecreasedL, Platelet Morphology , Giant Platelets Occasional, Hypochromasia 1+, Anisocytosis 1+, Sodium Level 142, Potassium Level 3.4L, Chloride Level 108H, Carbon Dioxide Level 25, Anion Gap 9, Blood Urea Nitrogen 31H, Creatinine 3.4H, Estimat Glomerular Filtration Rate 16.2, Glucose Level 135H, Calcium Level 7.4L, Phosphorus Level 3.2, Magnesium Level 1.9, Total Bilirubin 6.0H, Direct Bilirubin 5.3H, Aspartate Amino Transf (AST/SGOT) 206H, Alanine Aminotransferase (ALT/SGPT) 82H, Alkaline Phosphatase 990H, Total Protein 4.3L, Albumin 1.2L, Globulin 3.1, Albumin/Globulin Ratio 0.4L Height (Feet): 5 Height (Inches): 7.00 Weight (Pounds): 130 Objective General Appearance: no apparent distress EENT: PERRL/EOMI, normal ENT inspection Neck: non-tender, normal alignment Cardiovascular: normal peripheral pulses, normal rate, regular rhythm Respiratory/Chest: chest wall non-tender, lungs clear, normal breath sounds Abdomen: normal bowel sounds, non tender Niko Waterman M.D. May 17, 2020 13:11
--- NOTE | 2020-05-17 15:05 | General Progress Note ---
Subjective Date patient seen: May 17, 2020 Allergies: Coded Allergies: PENICILLINS (Verified Allergy, Unknown, 12/05/17) Subjective No acute events overnight per nursing. Platelets continue to downtrend. Bleeding appears to have stabilized. Hemoglobin stable. WBC count downtrending. Patient overall slightly improving. Unable to obtain ROS due to ALOC Objective Last 24 Hour Vital Signs Date Time Temp Pulse Resp B/P (MAP) Pulse Ox O2 Delivery O2 Flow Rate FiO2 05/17/20 11:40 79 135/69 05/17/20 09:00 Room Air 05/17/20 08:00 78 05/17/20 08:00 97.5 60 18 140/79 (99) 93 05/17/20 04:00 76 05/17/20 04:00 97.4 77 19 137/68 (91) 93 05/17/20 00:00 97.6 80 20 111/61 (78) 90 05/17/20 00:00 78 05/16/20 21:00 Room Air 05/16/20 20:00 97.4 91 22 142/95 (111) 92 05/16/20 20:00 76 05/16/20 16:00 84 05/16/20 16:00 97.5 84 20 155/69 (97) 95 Intake and Output 05/16/20 05/17/20 19:00 07:00 Output Total 2000 ml Balance -2000 ml Hemodialysis UF 2000 ml # Bowel Movements 1 1 Laboratory Tests 05/16/20 18:44: POC Whole Blood Glucose 95 05/17/20 10:30: White Blood Count 24.5*H, Red Blood Count 2.81L, Hemoglobin 8.7L, Hematocrit 25.1L, Mean Corpuscular Volume 90, Mean Corpuscular Hemoglobin 31.1H, Mean Corpuscular Hemoglobin Concent 34.7, Red Cell Distribution Width 16.6H, Platelet Count 35L, Mean Platelet Volume 11.5H, Neutrophils (%) (Auto) , Lymphocytes (%) (Auto) , Monocytes (%) (Auto) , Eosinophils (%) (Auto) , Basophils (%) (Auto) , Differential Total Cells Counted 100, Neutrophils % (Manual) 93H, Lymphocytes % (Manual) 5L, Monocytes % (Manual) 1, Eosinophils % (Manual) 0, Basophils % (Manual) 0, Myelocytes % 1H, Band Neutrophils 0, Platelet Estimate DecreasedL, Platelet Morphology , Giant Platelets Occasional, Hypochromasia 1+, Anisocytosis 1+, Sodium Level 142, Potassium Level 3.4L, Chloride Level 108H, Carbon Dioxide Level 25, Anion Gap 9, Blood Urea Nitrogen 31H, Creatinine 3.4H, Estimat Glomerular Filtration Rate 16.2, Glucose Level 135H, Calcium Level 7.4L, Phosphorus Level 3.2, Magnesium Level 1.9, Total Bilirubin 6.0H, Direct Bilirubin 5.3H, Aspartate Amino Transf (AST/SGOT) 206H, Alanine Aminotransferase (ALT/SGPT) 82H, Alkaline Phosphatase 990H, Total Protein 4.3L, Albumin 1.2L, Globulin 3.1, Albumin/Globulin Ratio 0.4L Height (Feet): 5 Height (Inches): 7.00 Weight (Pounds): 130 Objective General: WDWN female in NAD, A&O x 0 (baseline is A&o x 1), nonverbal, awake, alert, in no acute distress HEENT: Normocephalic cephalic atraumatic, pupils equal round reactive to light and accommodation, nares patent and no symmetrical, no tonsillar exudates, mucous membranes moist CV: Regular rate regular rhythm, no murmurs, rubs, or gallops Pulm: Lungs clear to auscultation bilaterally. No wheezes, rhonchi, or rales GI: Soft, Non TTP in RUQ nondistended, bowel sounds present Neuro: CN 2-12 intact bilaterally, no focal signs. Ext: No lower extremity edema bilaterally. UE and LE 2-3+ edema. Large right thigh firm mass. No flucuance. No drainage seen. Skin: no rashes lesions or ulcers Msk: Joints symmetrical in upper extremity and lower extremity bilaterally, no joint swelling. Lymph: No lymphadenopathy in upper extremity and lower extremity Assessment/Plan Assessment/Plan: This is a 69-year-old female presenting with acute encephalopathy, JYOTI, acute UTI; now ESRD on HD, Encephalopathic w/ Dysphagia and Chronic Osteo: #Sepsis due to possible Cholangitis #Severe hepatocyte dysfunction, concern for liver failure ? etiology. COVID? #Transaminitis due to liver failure - HIDA scan reviewed - Appreciate surgery input: D/w Dr. Alamo - No surgical interventions at this point. Not a candidate - Appreciate GI Input: D/w Dr. Hay/Dr. Nur - CT A/P reviewed - defer further procedures/imaging to GI and Surgery and discussion of risks/benefits with patient's sister - Sister Elisha (medical decision maker), understands grave prognosis and ok with current medical treatment but would not like further procedures if could cause harm. Surgery explained not candidate for procedures at this time and poor prognosis. . #Right thigh mass #right thigh hematoma > does not appear to be infected. D/w surgery - CTM - supportive measures #Thrombocytopenia #Anemia of Chronic Dx #Acute blood loss anemia #melena #hematuria -Appreciate Heme -Transfuse platelets to maintain above 15 to avoid ICH or above 50 if active bleeding -Transfuse for HGB less than 7 -HIT panel pending -Trend CBC - 2 unit platelets again today. Consent obtained from Elisha #Acute Renal Failure now ESRD requiring HD s/p Doyle --> ATN? Normal Renal US -Appreciate Nephro; S/P Fluid Challenge -Will order Permcath Placement--> on hold 2/ thrombocytopenia -Continue HD as scheduled; Midodrine prn Hypotension -Continue Sodium Bicarb Tabs #hypertension - hydralazine PRN - Appreciate nephrology recommendations #hypokalemia - replete PRN #Acute on chronic Metabolic Encephalopathy Exacerbated by Dementia #Dysphagia 2/2 Above -Appreciate Neuro, CTH WNL -Avoid Sedating Medications -Pending PEG tube placement per GI --> on hold 2/2 thrombocytopenia -Tube Feeding for now #DMII - ISS, Add long acting prn - lantus 5 units daily #LLE Osteo-Appreciate ID #[id number] -Cultures noted; S/P Broad Spectrum AB -Current AB: Cefepime/Flagyl/Doxy until 05/24 #COVID positive - asymptomatic - CTM - ID on board - > no medications available as patient not hypoxic #LUE DVT -venous duplex US reviewed -appreciate heme recommendations -off A/C due to bleeding -CTM FENPPX DVTPPX: HSQ (holding due to low platelets) Fluids: as above Diet: pending PEG Lines: PT/OT: pending Code status: Full per SNF Dispo: back to SNF Reason for Continued Hospitalization: jyoti, bleeding MIPS ([employer]-based Incentive Payment System) Applicable CPT: 53339, 54440 CHECK ALL THAT ARE MET: [] Measure #5 (CHF): All ages. Prescribe DESTINEY/ARB upon discharge for patients with left ventricular systolic dysfunction. If not, the reason is clearly documented in the medical chart [] Measure #8 (CHF): All ages. Prescribe a beta jennifer upon discharge for patients with left ventricular systolic dysfunction. If not, the reason is clearly documented in the medical chart. [] Measure #47: Advance care plan or surrogate decision maker documented in th e medical record. [x] Measure #130 The provider has documented, updated, or reviewed the patients current medication list and has documented it in the patients note. [x] Measure #374 (All): Send report to referring provider. [] Measure #407(Sepsis due to MSSA bacteremia): Age 18+ Patient treated with a beta-lactam antibiotic (Nafcillin, Oxacillin or Cefazolin) as definitive t herapy. MEDICAL COMPLEXITYHigh complexity medical decision making (need 2/3 categories)Problem - need 4 points [x]Acute/new problem with new plan for workup (4 points, 1 max) [] Acute/new problem without additional workup (3 points, 1 max) [x] Unstable chronic problem actively being managed (2 point each, 2 max) [x] Stable chronic problem actively being managed (1 point each, 2 max) [x] Self-limited/transient process (constipation, muscle ache, etc) (1 point each, 2 max) Data - need 4 points [x] Reviewed labs/imaging studies (1 points, 2 max) [x] Independent review of imaging (EKG, xrays, etc) (2 points, 2 max) [x] Discussed case with consult/other MD/RN (2 points, 2 max) High Risk - qualify if have one of the following: [] Severe exacerbation of acute problem, acute mental status change, IV narcotics, monitoring drug levels (vancomycin, INR, tacrolimus etc) I spent 36 minutes on this patient's case, and 22 mins was dedicated to counseling and/or care coordination. Discussed with nephro, ID, gen surgery, neurology. Time of note may not reflect time of encounter Patrick Cerda D.O. May 17, 2020 15:05
[2020-05-17 16:00] VITALS: BP 141/81
--- NOTE | 2020-05-17 18:33 | NUR ---
contacted Dr. Cerda about hypothermia of 92-95F. performed external warming measures: applied multiple blankets, turned on room heater, and applied bare hugger. held second unit of platelets due to low temp. pt is now 96.6F
[2020-05-17 20:00] VITALS: BP 128/60
--- NOTE | 2020-05-17 20:19 | NUR ---
NURSE NOTES: Dr. Nunn is aware of the hypertension. stated that there will be no new orders, and not to disturb him in the middle of the night.
--- NOTE | 2020-05-17 20:20 | NUR ---
NURSE HAND-OFF REPORT: Important Events on Shift:[] pt had hypothermic episode, MD notified, external heating interventions were done and patient is now at 96.6F. Patient Status: [] DNR/DNI Diet: [] GT tube nepro Pending Orders: [] Pending Results/Labs:[] Pending MD notification:[] Latest Vital Signs: Temperature 91.0 , Pulse 97 , B/P 129 /62 , Respiratory Rate 20 , O2 SAT 94 , Room Air, O2 Flow Rate 3.0 . Vital Sign Comment: [] EKG Rhythm: Sinus Rhythm Rhythm change?: N MD Notified?: - MD Response: Latest Hernandez Fall Score: 70 Fall Risk: High Risk Safety Measures: Call light Within Reach, Bed Alarm Zone 2, Side Rails Side Rails x3, Bed position Low and Locked. Fall Precautions: Yellow Socks Yellow Gown Door Sign Patient Fall Education Report given to [].tamica SERRANO
--- NOTE | 2020-05-17 20:30 | NUR ---
NURSE NOTES: Report received from ZACH Kingston. Patient is sleep in bed, alert and oriented x 0. child monitor is in place, shows sinus rhythm. On aspiration and fall precaution, On NPO. With NG tube in right nostril running Nephro 1.8 at 35cc/hr, FC inplace draining red urine to gravity. With right IJ Doyle catheter, running D5NS @ 50 cc/hour. Safety measures are in place, bed in lowest and locked position, side rails up x 2, call light button and bedside table within reach, will continue plan of care.
[2020-05-17] MEDS: Dyna-Hex 2% Top Sol 2oz TOPIC SCH (20:42)
--- NOTE | 2020-05-17 22:58 | Neurology Progress Note ---
Interim History Interim History ROS Limited/Unobtainable: Yes Interim History no new deficits Objective Physical Exam Last Vital Signs Date Time Temp Pulse Resp B/P (MAP) Pulse Ox O2 Delivery O2 Flow Rate FiO2 05/17/20 22:25 Room Air 05/17/20 20:00 96.6 99 22 128/60 (82) 92 Laboratory Tests Test 05/17/20 10:30 White Blood Count 24.5 K/UL (4.8-10.8) *H Red Blood Count 2.81 M/UL (4.20-5.40) L Hemoglobin 8.7 G/DL (12.0-16.0) L Hematocrit 25.1 % (37.0-47.0) L Mean Corpuscular Volume 90 FL (80-99) Mean Corpuscular Hemoglobin 31.1 PG (27.0-31.0) H Mean Corpuscular Hemoglobin Concent 34.7 G/DL (32.0-36.0) Red Cell Distribution Width 16.6 % (11.6-14.8) H Platelet Count 35 K/UL (150-450) L Mean Platelet Volume 11.5 FL (6.5-10.1) H Neutrophils (%) (Auto) % (45.0-75.0) Lymphocytes (%) (Auto) % (20.0-45.0) Monocytes (%) (Auto) % (1.0-10.0) Eosinophils (%) (Auto) % (0.0-3.0) Basophils (%) (Auto) % (0.0-2.0) Differential Total Cells Counted 100 Neutrophils % (Manual) 93 % (45-75) H Lymphocytes % (Manual) 5 % (20-45) L Monocytes % (Manual) 1 % (1-10) Eosinophils % (Manual) 0 % (0-3) Basophils % (Manual) 0 % (0-2) Myelocytes % 1 % (0-0) H Band Neutrophils 0 % (0-8) Platelet Estimate Decreased L Platelet Morphology Giant Platelets Occasional Hypochromasia 1+ Anisocytosis 1+ Sodium Level 142 MMOL/L (136-145) Potassium Level 3.4 MMOL/L (3.5-5.1) L Chloride Level 108 MMOL/L (98-107) H Carbon Dioxide Level 25 MMOL/L (21-32) Anion Gap 9 mmol/L (5-15) Blood Urea Nitrogen 31 mg/dL (7-18) H Creatinine 3.4 MG/DL (0.55-1.30) H Estimat Glomerular Filtration Rate 16.2 mL/min (>60) Glucose Level 135 MG/DL (74-106) H Calcium Level 7.4 MG/DL (8.5-10.1) L Phosphorus Level 3.2 MG/DL (2.5-4.9) Magnesium Level 1.9 MG/DL (1.8-2.4) Total Bilirubin 6.0 MG/DL (0.2-1.0) H Direct Bilirubin 5.3 MG/DL (0.0-0.3) H Aspartate Amino Transf (AST/SGOT) 206 U/L (15-37) H Alanine Aminotransferase (ALT/SGPT) 82 U/L (12-78) H Alkaline Phosphatase 990 U/L (46-116) H Total Protein 4.3 G/DL (6.4-8.2) L Albumin 1.2 G/DL (3.4-5.0) L Globulin 3.1 g/dL Albumin/Globulin Ratio 0.4 (1.0-2.7) L Impression/Recommendations Problems: (1) Sepsis (2) Hyperkalemia (3) Leukocytosis (4) Altered mental status (5) Diabetes mellitus out of control (6) Acute on chronic renal failure (7) NSTEMI (non-ST elevated myocardial infarction) (8) High anion gap metabolic acidosis (9) Sacral decubitus ulcer (10) Decubitus ulcer of heel (11) UTI (urinary tract infection) (12) JYOTI (acute kidney injury) Diagnostic Impression acute metabolic encephalopathy jyoti sepsis baseline dementia cont ivfs delirium precautions no need for mri brain cont Thee Burden MD May 17, 2020 22:58
[2020-05-18] VITALS (7 sets, daily range): BP systolic 113–138; BP diastolic 61–80
--- NOTE | 2020-05-18 01:44 | NUR ---
SENIOR ELECTRICAL CONTROLS ENGINEER Note: SENIOR ELECTRICAL CONTROLS ENGINEER was called at 0144 by Pat SERRANO, and notified MD Hawk. Pt transferred staid on tele. See SENIOR ELECTRICAL CONTROLS ENGINEER documentation form for full report.
--- NOTE | 2020-05-18 01:44 | NUR ---
NURSE NOTES: CORE ANALYST was called for Patient. Patient is moving lower body is a small jerking motion but is still responsive to base line. Dr. raza gave order for Ativan 2mg IVP Q4hr.
[2020-05-18] MEDS ORDERED: LORazepam Inj 2mg/ml 1ml IV PRN (02:00)
--- NOTE | 2020-05-18 02:15 | NUR ---
DUMPER OPERATOR Note: DUMPER OPERATOR was called at 0215 by , and notified MD . Pt stayed in room. Pt was found shaking in bed, minimal muscle tremors noted. vital signs are BP 118/61 100%O2 99HR Blood sugar 125. temp 99.4F. pupils round and reactive to light and accommodating. instructed charge nurse Romy and primary nurse HOMA to follow up with Dr Veras and report situation. recommend to request to Dr Veras EEG, Ativan IV PRN, and to verify if platelet transfusion should still be given. vital signs stable.
[2020-05-18] MEDS: D5NS 1,000 ML IV SCH (02:47)
--- NOTE | 2020-05-18 04:00 | NUR ---
NURSE NOTES: Wound care performed as ordered.
[2020-05-18] MEDS: NovoLOG Insulin Flexpen SUBQ SCH ×3 (06:17→17:53)
--- NOTE | 2020-05-18 06:36 | Hematology/Onc Progress Note ---
Assessment/Plan Assessment/Plan Assessment and Recs # Thrombocytopenia likely secondary to left heel and foot osteomyelitis/infection/dic --> likely due to infected wounds, heel ulcerations --> ABX flucon/flagyl/cefepime-->doxy/cefepime --> Peripheral smear, reviewed, hold off flow for now --> elev inflammatory markers --> WBC 35-->22-->18-->14-->13-->11.4->>>13-->17-->31 --> plt 55-->23-->26-->22-->54-->51-->35 --> 2 units plt 05/13 --> DIC panel ordered # Anemia due to underlying chronic disease. --> Continue to closely monitor for improvement. --> Anemia w/u has been reviewed. Will trend cbc daily. --> Hgb goal >7 -> hgb 12-->10.7->9.4-->9.5->10-->7.3-->5.7-->6.2-->8-->6.4-->10-->8.4 --> 2 units 05/07, 2 units 05/17 --> anemia panel reviewed before # Left upper extremity axillary, subclavian, and brachial venous thrombosis --> heparin gtt was started-->now changed to lovenox as supertherapeutic->now HELD due to severe anemia --> consider eliquis or coumadin once closer to dc --> patient does have eleno/ckd, thus agent needed not affected by renal function --> monitor for bleed # Coagulopathy with elev inr/ptt --> vit k and ffp as needed --> monitor for bleeding # Hyperkalemia. Given Kayexalate. --> Improved # Diabetic ketoacidosis. --> per before, improved # ESRD --> hd with line inserted # Shortness of breath in past with dka # Dvt ppx --> scds The time the note was entered does not necessarily correspond to the time the patient was seen. Subjective Constitutional: Denies: no symptoms, chills, fever, malaise, weakness, other HEENT: Denies: no symptoms, eye pain, blurred vision, tearing, double vision, ear pain, ear discharge, nose pain, nose congestion, throat pain, throat swelling, mouth pain, mouth swelling, other Cardiovascular: Denies: no symptoms, chest pain, edema, irregular heart rate, lightheadedness, palpitations, syncope, other Respiratory: Denies: no symptoms, cough, shortness of breath, SOB with excertion, SOB at rest, sputum, wheezing, other Neurologic/Psychiatric: Denies: no symptoms, anxiety, depressed, emotional problems, headache, numbness, paresthesia, pre-existing deficit, seizure, tingling, tremors, weakness, other Endocrine: Denies: no symptoms, excessive sweating, flushing, intolerance to cold, intolerance to heat, increased hunger, increased thirst, increased urine, unexplained weight gain, unexplained weight loss, other Hematologic/Lymphatic: Denies: no symptoms, anemia, easy bleeding, easy bruising, adenopathy, other Allergies: Coded Allergies: PENICILLINS (Verified Allergy, Unknown, 12/05/17) Subjective 05/05 hgb 7.3 this am, plts lower, no bleeding, ptt elev, will hold off hep gtt 05/06 labs noted, no bleeding, now on lovenox sq, sis somnolent in am 05/07 is on lovenox sq, is s/p transfusion, labs noted, on abx 05/09 anticoag is held, pending for cbc today, labs noted 05/10 anticoag held, for platelets to goal >50k, with coffee ground emesis 05/11 hd was given last night, bp was low and albumin administered, bp better 05/12 nv, labs reviewed, aphasic, plt 26 yesterday, meds reviewed, to get cbc today 05/13 2nd bag of platelets is pending, jessie Rn, plt recently 22k 05/14 plt improved to 54k, hit panel pending, is on abx 05/15: plt 59k, labs reviewed. 05/16: ct abd reviewed hematoma 05/17 remains confused, labs pending, plts in 50 range, wbc 24, on abx 05/18 remains confused, labs are pending, ordered DIc panel, s/p transfusion Objective Objective Current Medications Medications (Trade) Dose Ordered Sig/Enrike Route PRN Reason Start Time Stop Time Status Last Admin Dose Admin Amlodipine Besylate (Norvasc) 5 mg BID ORAL 05/17/20 11:30 06/16/20 11:29 05/17/20 18:09 Bisacodyl (Dulcolax) 10 mg DAILYPRN PRN RECTAL Constipation 05/01/20 20:30 07/30/20 20:29 Chlorhexidine Gluconate (Holli-Hex 2%) 1 applic DAILY@2000 TOPIC 05/02/20 20:00 07/31/20 19:59 05/17/20 20:42 Dexamethasone Sodium Phosphate (Decadron 4mg/ml vial) 6 mg Q6HR IVP 05/18/20 01:00 08/16/20 00:59 05/18/20 01:16 Dextrose (Dextrose 50%) 25 ml Q30M PRN IV Hypoglycemia 05/01/20 20:30 07/30/20 20:29 Dextrose (Dextrose 50%) 50 ml Q30M PRN IV Hypoglycemia 05/01/20 20:30 07/30/20 20:29 Dextrose/Sodium Chloride 1,000 ml @ 50 mls/hr Q20H IV 05/14/20 20:30 06/13/20 20:29 05/18/20 02:47 Doxycycline Hyclate 100 mg/ Dextrose 110 ml @ 110 mls/hr Q12HR IV 05/08/20 21:00 05/24/20 23:59 05/17/20 23:39 Hydralazine HCl (Apresoline) 10 mg Q4H PRN IV SBP >160 05/16/20 07:45 08/14/20 07:44 Hydralazine HCl (Apresoline) 10 mg QIDPRN PRN IV BLOOD PRE 05/16/20 16:00 08/14/20 15:59 Insulin Aspart (NovoLOG) Q6HR SUBQ 05/03/20 00:00 08/01/20 00:00 05/18/20 06:17 Insulin Detemir (Levemir) 5 units DAILY SUBQ 05/13/20 10:00 08/11/20 09:59 05/17/20 09:34 Lorazepam (Ativan 2mg/ml 1ml) 2 mg Q4H PRN IV For Anxiety 05/18/20 02:00 05/25/20 01:59 05/18/20 02:05 Meropenem 500 mg/ Sodium Chloride 50 ml @ 100 mls/hr Q24HRS IVPB 05/14/20 21:00 05/19/20 20:59 05/17/20 22:56 Metronidazole 100 ml @ 100 mls/hr Q12H IVPB 05/14/20 20:00 05/21/20 19:59 05/17/20 20:43 Morphine Sulfate (Morphine Sulfate) 2 mg Q4H PRN IVP For Pain 05/15/20 16:30 05/22/20 16:29 05/16/20 00:51 Ondansetron HCl (Zofran) 4 mg Q6H PRN IVP Nausea & Vomiting 05/01/20 20:30 05/31/20 20:29 Pantoprazole (Protonix) 40 mg EVERY 12 HOURS IVP 05/12/20 16:15 06/11/20 16:14 05/17/20 20:42 Sodium Hypochlorite (Dakin's Quarter Strength) 1 applic DAILY TOPIC 05/05/20 09:00 06/04/20 08:59 05/17/20 09:15 Last 24 Hour Vital Signs Date Time Temp Pulse Resp B/P (MAP) Pulse Ox O2 Delivery O2 Flow Rate FiO2 05/18/20 04:00 78 05/18/20 04:00 98.9 99 22 113/63 (80) 100 05/18/20 02:34 100 24 105/58 97 05/18/20 02:15 102 24 100 05/18/20 02:05 94 24 116/58 100 05/18/20 00:23 98 Non-Rebreather 15.0 100 05/18/20 00:00 96 05/18/20 00:00 98.9 100 24 133/66 (88) 100 05/18/20 00:00 99.2 102 24 118/61 (80) 100 05/17/20 22:25 Room Air 05/17/20 20:00 96.6 99 22 128/60 (82) 92 05/17/20 20:00 96 05/17/20 18:09 97 129/62 05/17/20 16:00 91.0 79 20 141/81 (101) 94 05/17/20 16:00 79 05/17/20 12:00 77 05/17/20 12:00 97.2 79 18 135/69 (91) 93 05/17/20 11:40 79 135/69 05/17/20 09:00 Room Air 05/17/20 08:00 78 05/17/20 08:00 97.5 60 18 140/79 (99) 93 05/17/20 04:00 76 05/17/20 04:00 97.4 77 19 137/68 (91) 93 05/17/20 00:00 97.6 80 20 111/61 (78) 90 05/17/20 00:00 78 05/16/20 21:00 Room Air 05/16/20 20:00 97.4 91 22 142/95 (111) 92 05/16/20 20:00 76 05/16/20 16:00 84 05/16/20 16:00 97.5 84 20 155/69 (97) 95 05/16/20 12:00 82 05/16/20 12:00 97.7 73 20 179/87 (117) 95 05/16/20 09:00 Room Air 05/16/20 08:00 97.6 72 20 135/104 (114) 94 05/16/20 08:00 73 Intake and Output 05/17/20 05/18/20 19:00 07:00 Output Total 150 ml Balance -150 ml Output Urine Total 150 ml # Bowel Movements 1 Labs Test 05/16/20 11:40 05/16/20 12:00 05/16/20 18:44 05/17/20 10:30 POC Whole Blood Glucose 98 MG/DL (74-106) 95 MG/DL (74-106) White Blood Count 25.7 K/UL (4.8-10.8) 24.5 K/UL (4.8-10.8) Red Blood Count 2.71 M/UL (4.20-5.40) 2.81 M/UL (4.20-5.40) Hemoglobin 8.4 G/DL (12.0-16.0) 8.7 G/DL (12.0-16.0) Hematocrit 24.4 % (37.0-47.0) 25.1 % (37.0-47.0) Mean Corpuscular Volume 90 FL (80-99) 90 FL (80-99) Mean Corpuscular Hemoglobin 31.0 PG (27.0-31.0) 31.1 PG (27.0-31.0) Mean Corpuscular Hemoglobin Concent 34.4 G/DL (32.0-36.0) 34.7 G/DL (32.0-36.0) Red Cell Distribution Width 16.6 % (11.6-14.8) 16.6 % (11.6-14.8) Platelet Count 51 K/UL (150-450) 35 K/UL (150-450) Mean Platelet Volume 9.6 FL (6.5-10.1) 11.5 FL (6.5-10.1) Neutrophils (%) (Auto) % (45.0-75.0) % (45.0-75.0) Lymphocytes (%) (Auto) % (20.0-45.0) % (20.0-45.0) Monocytes (%) (Auto) % (1.0-10.0) % (1.0-10.0) Eosinophils (%) (Auto) % (0.0-3.0) % (0.0-3.0) Basophils (%) (Auto) % (0.0-2.0) % (0.0-2.0) Differential Total Cells Counted 100 100 Neutrophils % (Manual) 92 % (45-75) 93 % (45-75) Lymphocytes % (Manual) 3 % (20-45) 5 % (20-45) Monocytes % (Manual) 1 % (1-10) 1 % (1-10) Eosinophils % (Manual) 0 % (0-3) 0 % (0-3) Basophils % (Manual) 0 % (0-2) 0 % (0-2) Band Neutrophils 4 % (0-8) 0 % (0-8) Platelet Estimate Decreased Decreased Platelet Morphology Normal Hypochromasia 1+ 1+ Anisocytosis 1+ 1+ Prothrombin Time 16.5 SEC (9.30-11.50) Prothromb Time International Ratio 1.5 (0.9-1.1) Activated Partial Thromboplast Time 59 SEC (23-33) Sodium Level 141 MMOL/L (136-145) 142 MMOL/L (136-145) Potassium Level 3.5 MMOL/L (3.5-5.1) 3.4 MMOL/L (3.5-5.1) Chloride Level 108 MMOL/L (98-107) 108 MMOL/L (98-107) Carbon Dioxide Level 23 MMOL/L (21-32) 25 MMOL/L (21-32) Anion Gap 10 mmol/L (5-15) 9 mmol/L (5-15) Blood Urea Nitrogen 39 mg/dL (7-18) 31 mg/dL (7-18) Creatinine 3.9 MG/DL (0.55-1.30) 3.4 MG/DL (0.55-1.30) Estimat Glomerular Filtration Rate 13.8 mL/min (>60) 16.2 mL/min (>60) Glucose Level 104 MG/DL (74-106) 135 MG/DL (74-106) Calcium Level 7.4 MG/DL (8.5-10.1) 7.4 MG/DL (8.5-10.1) Phosphorus Level 3.0 MG/DL (2.5-4.9) 3.2 MG/DL (2.5-4.9) Magnesium Level 1.9 MG/DL (1.8-2.4) 1.9 MG/DL (1.8-2.4) Total Bilirubin 5.1 MG/DL (0.2-1.0) 6.0 MG/DL (0.2-1.0) Direct Bilirubin 4.7 MG/DL (0.0-0.3) 5.3 MG/DL (0.0-0.3) Aspartate Amino Transf (AST/SGOT) 216 U/L (15-37) 206 U/L (15-37) Alanine Aminotransferase (ALT/SGPT) 92 U/L (12-78) 82 U/L (12-78) Alkaline Phosphatase 989 U/L (46-116) 990 U/L (46-116) Total Creatine Kinase 89 U/L (26-140) Total Protein 3.8 G/DL (6.4-8.2) 4.3 G/DL (6.4-8.2) Albumin 1.0 G/DL (3.4-5.0) 1.2 G/DL (3.4-5.0) Globulin 2.8 g/dL 3.1 g/dL Albumin/Globulin Ratio 0.4 (1.0-2.7) 0.4 (1.0-2.7) Hepatitis A IgM Antibody Negative (Negative) Myelocytes % 1 % (0-0) Giant Platelets Occasional Test 05/17/20 23:47 05/18/20 01:46 05/18/20 06:12 POC Whole Blood Glucose 114 MG/DL (74-106) 125 MG/DL (74-106) 150 MG/DL (74-106) Height (Feet): 5 Height (Inches): 7.00 Weight (Pounds): 130 Objective Physical Exam Vitals: reviewed, normal General Appearance: no apparent distress, non-toxic, lethargic HEENT: bilateral eye normal inspection, bilateral eye PERRL Neck: full range of motion, supple/symm/no masses Resp: chest non-tender, lungs clear, normal breath sounds, speaking full sentences Cardiovascular: regular rate, rhythm, no edema Gastrointestinal: normal bowel sounds, non tender Rectal: deferred Genitourinary: normal inspection, no CVA tenderness Musculoskeletal: back normal, gait/station normal, non-tender Lymphatic: no adenopathy David De Jesus MD May 18, 2020 06:36
--- NOTE | 2020-05-18 07:25 | NUR ---
NURSE HAND-OFF REPORT: Important Events on Shift: HEMATOLOGY NURSE EDUCATOR was called at 0144 by , and notified MD. Pt stayed in room. Pt was found shaking in bed, minimal muscle tremors noted. vital signs are BP 118/61 100%O2 99HR Blood sugar 125. temp 99.4F. pupils round and reactive to light and accommodating. Ativan 2MG IV PRN ordered by Dr. Ball. Patient Status: On Non-rebreather 15L saturating at 99% Diet: Nephro at 35cc/hr with 60cc hold >100 Pending Orders: Pending Results/Labs: Pending MD notification: Latest Vital Signs: Temperature 98.1 , Pulse 89 , B/P 123 /70 , Respiratory Rate 21 , O2 SAT 99 , Room Air, O2 Flow Rate 15.0 . Vital Sign Comment: EKG Rhythm: Sinus Rhythm Rhythm change?: N MD Notified?: - MD Response: Latest Hernandez Fall Score: 70 Fall Risk: High Risk Safety Measures: Call light Within Reach, Bed Alarm Zone 2, Side Rails Side Rails x3, Bed position Low and Locked. Fall Precautions: Yellow Socks Yellow Gown Door Sign Patient Fall Education Report given to Matt SERRANO.
--- NOTE | 2020-05-18 07:30 | NUR ---
NURSE NOTES: Received patient in bed. Awake, nonverbal. On nonrebreather mask. NGT in Right nostril running feeding as ordered. F/c in place. Right IJ in place. Bed low and locked, side rails up x2.
[2020-05-18 08:00] LABS: HEMATOCRIT 24.3 % (37.0-47.0); HEMOGLOBIN 8.3 G/DL (12.0-16.0); MEAN CORPUSCULAR VOLUME 92 FL (80-99); PLATELET COUNT 75 K/UL (150-450); RED BLOOD COUNT 2.65 M/UL (4.20-5.40); RED CELL DISTRIBUTION WIDTH 15.7 % (11.6-14.8)
[2020-05-18] MEDS: Doxycycline Hyclate 100 MG in D5W 110 ML IV SCH ×2 (08:22→21:00)
[2020-05-18] MEDS: Pantoprazole Inj IVP SCH ×2 (08:22→21:00)
[2020-05-18 08:25] LABS: ALBUMIN 1.2 G/DL (3.4-5.0); ALBUMIN/GLOBULIN RATIO 0.4 (1.0-2.7); BILIRUBIN,TOTAL 6.5 MG/DL (0.2-1.0); CALCIUM 7.9 MG/DL (8.5-10.1); CREATININE 3.8 MG/DL (0.55-1.30); POTASSIUM 4.1 MMOL/L (3.5-5.1)
[2020-05-18] MEDS: Levemir Flexpen SUBQ SCH (08:30)
--- NOTE | 2020-05-18 08:37 | General Progress Note ---
Subjective ROS Limited/Unobtainable: No Allergies: Coded Allergies: PENICILLINS (Verified Allergy, Unknown, 12/05/17) Objective Last 24 Hour Vital Signs Date Time Temp Pulse Resp B/P (MAP) Pulse Ox O2 Delivery O2 Flow Rate FiO2 05/18/20 08:22 89 123/70 05/18/20 08:00 98.1 89 21 123/70 (87) 99 05/18/20 04:00 78 05/18/20 04:00 98.9 99 22 113/63 (80) 100 05/18/20 02:34 100 24 105/58 97 05/18/20 02:15 102 24 100 05/18/20 02:05 94 24 116/58 100 05/18/20 00:23 98 Non-Rebreather 15.0 100 05/18/20 00:00 96 05/18/20 00:00 98.9 100 24 133/66 (88) 100 05/18/20 00:00 99.2 102 24 118/61 (80) 100 05/17/20 22:25 Room Air 05/17/20 20:00 96.6 99 22 128/60 (82) 92 05/17/20 20:00 96 05/17/20 18:09 97 129/62 05/17/20 16:00 91.0 79 20 141/81 (101) 94 05/17/20 16:00 79 05/17/20 12:00 77 05/17/20 12:00 97.2 79 18 135/69 (91) 93 05/17/20 11:40 79 135/69 05/17/20 09:00 Room Air Intake and Output 05/17/20 05/18/20 19:00 07:00 Intake Total 50 ml 550 ml Output Total 150 ml 150 ml Balance -100 ml 400 ml Tube Feeding 50 ml 550 ml Output Urine Total 150 ml 150 ml # Bowel Movements 1 2 Laboratory Tests 05/17/20 10:30: White Blood Count 24.5*H, Red Blood Count 2.81L, Hemoglobin 8.7L, Hematocrit 25.1L, Mean Corpuscular Volume 90, Mean Corpuscular Hemoglobin 31.1H, Mean Corpuscular Hemoglobin Concent 34.7, Red Cell Distribution Width 16.6H, Platelet Count 35L, Mean Platelet Volume 11.5H, Neutrophils (%) (Auto) , Lymphocytes (%) (Auto) , Monocytes (%) (Auto) , Eosinophils (%) (Auto) , Basophils (%) (Auto) , Differential Total Cells Counted 100, Neutrophils % (Manual) 93H, Lymphocytes % (Manual) 5L, Monocytes % (Manual) 1, Eosinophils % (Manual) 0, Basophils % (Manual) 0, Myelocytes % 1H, Band Neutrophils 0, Platelet Estimate DecreasedL, Platelet Morphology , Giant Platelets Occasional, Hypochromasia 1+, Anisocytosis 1+, Sodium Level 142, Potassium Level 3.4L, Chloride Level 108H, Carbon Dioxide Level 25, Anion Gap 9, Blood Urea Nitrogen 31H, Creatinine 3.4H, Estimat Glomerular Filtration Rate 16.2, Glucose Level 135H, Calcium Level 7.4L, Phosphorus Level 3.2, Magnesium Level 1.9, Total Bilirubin 6.0H, Direct Bilirubin 5.3H, Aspartate Amino Transf (AST/SGOT) 206H, Alanine Aminotransferase (ALT/SGPT) 82H, Alkaline Phosphatase 990H, Total Protein 4.3L, Albumin 1.2L, Globulin 3.1, Albumin/Globulin Ratio 0.4L 05/17/20 23:47: POC Whole Blood Glucose 114H 05/18/20 01:46: POC Whole Blood Glucose 125H 05/18/20 06:12: POC Whole Blood Glucose 150H 05/18/20 06:24: White Blood Count 20.0H, Red Blood Count 2.65L, Hemoglobin 8.3L, Hematocrit 24.3L, Mean Corpuscular Volume 92, Mean Corpuscular Hemoglobin 31.3H, Mean Corpuscular Hemoglobin Concent 34.0, Red Cell Distribution Width 15.7H, Platelet Count 75#L, Mean Platelet Volume 9.3, Neutrophils (%) (Auto) , Lymphocytes (%) (Auto) , Monocytes (%) (Auto) , Eosinophils (%) (Auto) , Basophils (%) (Auto) , Neutrophils % (Manual) [Pending], Lymphocytes % (Manual) [Pending], Platelet Estimate [Pending], Platelet Morphology [Pending], Haptoglobin [Pending], Sodium Level 143, Potassium Level 4.1, Chloride Level 107, Carbon Dioxide Level 24, Anion Gap 12, Blood Urea Nitrogen 36H, Creatinine 3.8H, Estimat Glomerular Filtration Rate 14.3, Glucose Level 182H, Calcium Level 7.9L, Phosphorus Level [Pending], Magnesium Level [Pending], Total Bilirubin 6.5H, Direct Bilirubin 6.0H, Aspartate Amino Transf (AST/SGOT) 225H, Alanine Aminotransferase (ALT/SG PT) 75, Alkaline Phosphatase 1273H, Total Protein 4.3L, Albumin 1.2L, Globulin 3.1, Albumin/Globulin Ratio 0.4L Height (Feet): 5 Height (Inches): 7.00 Weight (Pounds): 130 General Appearance: no apparent distress EENT: normal ENT inspection Neck: supple Cardiovascular: normal rate Respiratory/Chest: decreased breath sounds Abdomen: normal bowel sounds, non tender, soft Extremities: non-tender Assessment/Plan Assessment/Plan: Assessment: Progressive leukocytosis / sepsis - poor prognosis abnormal LFT - multifactorial - sepsis/COVID/ishcemia, doubt cholecystitis or cholangitis (+) (R) inner thigh fluid collection, presumed hematoma osteomyelitis Renal failure Severe thrombocytopenia - poor candidate for intervention Rectal bleeding, ? ischemic colitis - resolved DM - poor COVID prognosis COVID Pneumonia, bilateral dysphagia / NGT Dementia Recommendations: supportive care TF abx per ID PPI follow labs poor prognosis - Shai Hay MD May 18, 2020 08:37
[2020-05-18] MEDS: Dakin's 0.125% Soln (Quarter Strength) 16oz TOPIC SCH (10:09)
[2020-05-18 11:27] LABS: INR 1.6 (0.9-1.1)
--- NOTE | 2020-05-18 12:37 | NUR ---
RADIOLOGY DEPT., CHEST X-RAY DONE.-P.DYE
--- NOTE | 2020-05-18 13:25 | NUR ---
RD ASSESSMENT & RECOMMENDATIONS SEE CARE ACTIVITY FOR COMPLETE ASSESSMENT DAILY ESTIMATED NEEDS: Needs based on Wound, JYOTI + HD initiated/ 59kg 30-35 kcals/kg 3286-5354 total kcals 1.25-1.8 (w/ HD) g protein/kg 74-106 g total protein 20-25 mL/kg 2640-8119 total fluid mLs NUTRITION DIAGNOSIS: * Swallowing difficulty R/T dysphagia as evidenced by DENTAL SECRETARY recommends pureed moist texture w/ NTL, now NPO, w/ NGT in place, PEG planned. * Increased kcal/prot/micronutrients needs R/T wound healing as evidenced by pt admitted w/ multiple wounds, including unstageable wounds @ sacrum, L heel, stage 2 wound @ lt ischium, DTI wound @ R heel. * Altered nutrition related lab values R/T h/o DM, pt on steroidal med, JYOTI as evidenced by elev BGs (200's-300's), elev creat (6.1 trending up). ENTERAL NUTRITION RECOMMENDATIONS: Nepro w/ goal of 45ml/hr x24 hrs to provide 1080ml, 1944 kcal, 87g pro, 785ml free H2O - Start Nepro @ 15ml/hr x 6hrs, increase 10ml q 4-6 hrs as tolerated to goal rate. - Flush per MD, HOB over 30 degrees ADDITIONAL RECOMMENDATIONS: * Calibrated bedscale wt * Wound healing:Add Nephrovite x1, Vit C dosing per nephro Dedrick BID w/ diet order, ZnSO4 220mg QD x 10 days * W/ TF, rec increasing insulin for improved BG control * Monitor renal fxn and for continuity of HD, monitor lytes * Monitor T bili (6.5) and LFTs, rising at this time .
--- NOTE | 2020-05-18 13:46 | Nephrology Progress Note ---
Assessment/Plan Plan #JYOTI - concerns for vancomycin nephrotoxicity- r/o ATN- baseline Cr 0.8- also with volume depletion # osteomyelitis of LLE- on vanco, cefepime and flagyl #AMS #diabetes # hypertension, #hyperlipidemia # dementia. - HD tomorrow - DC midodrine 5 TID - PEG postponed - plt transfusion per hematology - monitor hemoglobin - renal US with no acute findings - anibiotics per ID- - avoid vanco for now - monitor renal output - add epo 4k TIW time spent 45 min Subjective ROS Limited/Unobtainable: Yes Subjective s/p HD yesterday Objective Objective Last 24 Hour Vital Signs Date Time Temp Pulse Resp B/P (MAP) Pulse Ox O2 Delivery O2 Flow Rate FiO2 05/18/20 09:00 Non-Rebreather 05/18/20 08:22 89 123/70 05/18/20 08:00 98.1 89 21 123/70 (87) 99 05/18/20 08:00 91 05/18/20 04:00 78 05/18/20 04:00 98.9 99 22 113/63 (80) 100 05/18/20 02:34 100 24 105/58 97 05/18/20 02:15 102 24 100 05/18/20 02:05 94 24 116/58 100 05/18/20 00:23 98 Non-Rebreather 15.0 100 05/18/20 00:00 96 05/18/20 00:00 98.9 100 24 133/66 (88) 100 05/18/20 00:00 99.2 102 24 118/61 (80) 100 05/17/20 22:25 Room Air 05/17/20 20:00 96.6 99 22 128/60 (82) 92 05/17/20 20:00 96 05/17/20 18:09 97 129/62 05/17/20 16:00 91.0 79 20 141/81 (101) 94 05/17/20 16:00 79 Intake and Output 05/17/20 05/18/20 19:00 07:00 Intake Total 50 ml 550 ml Output Total 150 ml 150 ml Balance -100 ml 400 ml Tube Feeding 50 ml 550 ml Output Urine Total 150 ml 150 ml # Bowel Movements 1 2 Laboratory Tests 05/17/20 23:47: POC Whole Blood Glucose 114H 05/18/20 01:46: POC Whole Blood Glucose 125H 05/18/20 06:12: POC Whole Blood Glucose 150H 05/18/20 06:24: White Blood Count 20.0H, Red Blood Count 2.65L, Hemoglobin 8.3L, Hematocrit 24.3L, Mean Corpuscular Volume 92, Mean Corpuscular Hemoglobin 31.3H, Mean Corpuscular Hemoglobin Concent 34.0, Red Cell Distribution Width 15.7H, Platelet Count 75#L, Mean Platelet Volume 9.3, Neutrophils (%) (Auto) , Lymphocytes (%) (Auto) , Monocytes (%) (Auto) , Eosinophils (%) (Auto) , Basophils (%) (Auto) , Differential Total Cells Counted 100, Neutrophils % (Manual) 91H, Lymphocytes % (Manual) 7L, Monocytes % (Manual) 2, Eosinophils % (Manual) 0, Basophils % (Manual) 0, Band Neutrophils 0, Platelet Estimate DecreasedL, Platelet Morphology Normal, Hypochromasia 1+, Anisocytosis 1+, Target Cells 1+, Hapto globin [Pending], Sodium Level 143, Potassium Level 4.1, Chloride Level 107, Carbon Dioxide Level 24, Anion Gap 12, Blood Urea Nitrogen 36H, Creatinine 3.8H, Estimat Glomerular Filtration Rate 14.3, Glucose Level 182H, Calcium Level 7.9L , Phosphorus Level 4.0, Magnesium Level 1.9, Total Bilirubin 6.5H, Direct Bilirubin 6.0H, Aspartate Amino Transf (AST/SGOT) 225H, Alanine Aminotransferase (ALT/SGPT) 75, Alkaline Phosphatase 1273H, Total Protein 4.3L, Albumin 1.2L, Globulin 3.1, Albumin/Globulin Ratio 0.4L 05/18/20 08:50: Prothrombin Time 18.0H, Prothromb Time International Ratio 1.6H, Fibrinogen 626H Height (Feet): 5 Height (Inches): 7.00 Weight (Pounds): 130 Objective General Appearance: no apparent distress EENT: PERRL/EOMI, normal ENT inspection Neck: non-tender, normal alignment Cardiovascular: normal peripheral pulses, normal rate, regular rhythm Respiratory/Chest: chest wall non-tender, lungs clear, normal breath sounds Abdomen: normal bowel sounds, non tender Niko Waterman M.D. May 18, 2020 13:46
--- NOTE | 2020-05-18 14:09 | NUR ---
NURSE NOTES: Pre-transfusion VS: 96.9, 106, 149/95 after 15 minutes: 97.0, 93, 151/79 Post-transfusion VS: 97.9, 108, 142/81 No adverse reactions noted.
--- NOTE | 2020-05-18 14:37 | Diagnostic Imaging Report ---
Indication: Cough Technique: One view of the chest Comparison: 05/15/2020 Findings: Centimeters satisfactory nasogastric tube tip position. Right jugular temporary dialysis catheter again demonstrated. Bilateral extensive infiltrates appear increased in the right mid and lower lung the left lung apex, stable elsewhere. Impression: Worsening bilateral infiltrates, over 3 days
--- NOTE | 2020-05-18 14:49 | Surgery Progress Note ---
Surgery Progress Note Subjective Additional Comments worsening lft's coags worse no n/v labs noted exam unchanged no active bleeding Objective Last 24 Hour Vital Signs Date Time Temp Pulse Resp B/P (MAP) Pulse Ox O2 Delivery O2 Flow Rate FiO2 05/18/20 12:00 96.7 83 22 124/80 (95) 98 05/18/20 09:00 Non-Rebreather 05/18/20 08:22 89 123/70 05/18/20 08:00 98.1 89 21 123/70 (87) 99 05/18/20 08:00 91 05/18/20 04:00 78 05/18/20 04:00 98.9 99 22 113/63 (80) 100 05/18/20 02:34 100 24 105/58 97 05/18/20 02:15 102 24 100 05/18/20 02:05 94 24 116/58 100 05/18/20 00:23 98 Non-Rebreather 15.0 100 05/18/20 00:00 96 05/18/20 00:00 98.9 100 24 133/66 (88) 100 05/18/20 00:00 99.2 102 24 118/61 (80) 100 05/17/20 22:25 Room Air 05/17/20 20:00 96.6 99 22 128/60 (82) 92 05/17/20 20:00 96 05/17/20 18:09 97 129/62 05/17/20 16:00 91.0 79 20 141/81 (101) 94 05/17/20 16:00 79 I&O Intake and Output 05/17/20 05/18/20 19:00 07:00 Intake Total 50 ml 550 ml Output Total 150 ml 150 ml Balance -100 ml 400 ml Tube Feeding 50 ml 550 ml Output Urine Total 150 ml 150 ml # Bowel Movements 1 2 Cardiovascular: RSR Respiratory: decreased breath sounds Abdomen: soft, non-tender, present bowel sounds, non-distended Extremities: no tenderness, no cyanosis Laboratory Tests Test 05/17/20 23:47 05/18/20 01:46 05/18/20 06:12 05/18/20 06:24 POC Whole Blood Glucose 114 MG/DL (74-106) H 125 MG/DL (74-106) H 150 MG/DL (74-106) H White Blood Count 20.0 K/UL (4.8-10.8) H Red Blood Count 2.65 M/UL (4.20-5.40) L Hemoglobin 8.3 G/DL (12.0-16.0) L Hematocrit 24.3 % (37.0-47.0) L Mean Corpuscular Volume 92 FL (80-99) Mean Corpuscular Hemoglobin 31.3 PG (27.0-31.0) H Mean Corpuscular Hemoglobin Concent 34.0 G/DL (32.0-36.0) Red Cell Distribution Width 15.7 % (11.6-14.8) H Platelet Count 75 K/UL (150-450) #L Mean Platelet Volume 9.3 FL (6.5-10.1) Neutrophils (%) (Auto) % (45.0-75.0) Lymphocytes (%) (Auto) % (20.0-45.0) Monocytes (%) (Auto) % (1.0-10.0) Eosinophils (%) (Auto) % (0.0-3.0) Basophils (%) (Auto) % (0.0-2.0) Differential Total Cells Counted 100 Neutrophils % (Manual) 91 % (45-75) H Lymphocytes % (Manual) 7 % (20-45) L Monocytes % (Manual) 2 % (1-10) Eosinophils % (Manual) 0 % (0-3) Basophils % (Manual) 0 % (0-2) Band Neutrophils 0 % (0-8) Platelet Estimate Decreased L Platelet Morphology Normal Hypochromasia 1+ Anisocytosis 1+ Target Cells 1+ Haptoglobin Pending Sodium Level 143 MMOL/L (136-145) Potassium Level 4.1 MMOL/L (3.5-5.1) Chloride Level 107 MMOL/L (98-107) Carbon Dioxide Level 24 MMOL/L (21-32) Anion Gap 12 mmol/L (5-15) Blood Urea Nitrogen 36 mg/dL (7-18) H Creatinine 3.8 MG/DL (0.55-1.30) H Estimat Glomerular Filtration Rate 14.3 mL/min (>60) Glucose Level 182 MG/DL (74-106) H Calcium Level 7.9 MG/DL (8.5-10.1) L Phosphorus Level 4.0 MG/DL (2.5-4.9) Magnesium Level 1.9 MG/DL (1.8-2.4) Total Bilirubin 6.5 MG/DL (0.2-1.0) H Direct Bilirubin 6.0 MG/DL (0.0-0.3) H Aspartate Amino Transf (AST/SGOT) 225 U/L (15-37) H Alanine Aminotransferase (ALT/SGPT) 75 U/L (12-78) Alkaline Phosphatase 1273 U/L (46-116) H Total Protein 4.3 G/DL (6.4-8.2) L Albumin 1.2 G/DL (3.4-5.0) L Globulin 3.1 g/dL Albumin/Globulin Ratio 0.4 (1.0-2.7) L Test 05/18/20 08:50 Prothrombin Time 18.0 SEC (9.30-11.50) H Prothromb Time International Ratio 1.6 (0.9-1.1) H Fibrinogen 626 mg/dL (200-400) H Plan Problems: (1) UTI (urinary tract infection) (2) JYOTI (acute kidney injury) (3) Hyperkalemia (4) Leukocytosis Assessment & Plan: dvt upper extremity picc related remove picc once temp line in anticoag as per heme worsening leukocytosis on abx acute hepatic insufficiency unfortunately prognosis very guarded (5) Sepsis (6) Altered mental status (7) Sacral decubitus ulcer Assessment & Plan: 69-year-old female multiple comorbidities presented with failure to thrive lethargic altered mental status noted to have abnormal labs and have draining bilateral heel unstageable decubitus ulcers multiple skin lesions on the lower extremities as well as a sacral decubitus ulcer as well. Imaging reviewed. Patient has been eating less recently but currently is eating at the bedside though does not look like she is taking much in. Treatment plan Turn every 2 hours Offload pressure with pillows pillow on side as necessary as well as underneath calf to elevate heels Air soft mattress nutritional optimization continue IV antibiotics per infectious disease SACRUM- STAGE - UNSTAGEABLE PRESSURE ULCER MEASURES 6.0X13.0X0.2. WOUND BED WITH 80% SLOUGH AND 20% PINK GRANULATION TISSUE. NOTED FOUL ODOR RECOMMEND-CLEAN WITH SALINE. APPLY WET TO DRY DRESSINGS WITH DAKINS 0.25% DAKIN'S SOLUTION.COVER WITH OPTIFOAM DRESSING. REPLACE DRESSING DAILY. LEFT ISCHIUM-STAGE II PRESSURE ULCER MEASURES 4.5X0.5X0.2CM. PINK GRANULATION TISSUE NOTED. RECOMMEND- CLEAN WITH SALINE, PAT DRY. APPLY CALAZINE AND COVER WITH OPTIFOAM DRESSING. LEFT ANTERIOR LOW LEG-VENOUS ULCER MEASURES 8.0X2.6X0.2CM 100% YELLOW SLOUGH NOTED TO WOUND BED. RECOMMEND- CLEAN WITH SALINE, PA DRY. APPLY THERAHONEY. COVER WITH GAUZE AND SECURE WITH KERLIX. REPLACE DRESSING DAILY. LEFT HEEL- UNSTAGEABLE PRESSURE ULCER MEASURES 9.5X8.0X0.3CM. 100% MOIST BLACK ESCHAR. WITH STRONG FOUL ODOR. RECOMMEND- CLEAN WITH SALINE. APPLY WET TO DRY DRESSINGS WITH DAKINS 0.25% DAKIN'S SOLUTION. COVER WITH GAUZE, ABD PAD AND SECURE WITH KERLIX. REPLACE DAILY. RIGHT ANTERIOR LOW LEG-VENOUS ULCER MEASURES 2.5X3.0X0.2CM WITH PINK GRANULATION TISSUE. RIGHT ANTERIOR DISTAL LOW LEG -VENOUS ULCER MEASURES 1.5X0.2X0.1CM WITH PINK GRANULATION TISSUE. RECOMMEND-CLEAN WITH SALINE PAT DRY. APPLY XEROFORM GAUZE, GAUZE AND COVER WITH KERLIX. REPLACE DAILY RIGHT HEEL-DTI MEASURES 2.5X3.0CM. AREA DARK PURPLE IN COLOR AND BOGGY TO TOUCH. NO DRAINAGE NOTED. RECOMMEND- PAINT WITH CAVILON SKIN PROTECTOR, GAUZE AND WRAP WITH KERLIX. REPLACE DAILY. We will follow with recommendations thank you for letting participate patient's care Fairly numerous bubbles of soft tissue gas are seen within the subcutaneous fat and possibly the intrinsic musculature of the plantar surface of the heel. There is high STIR and decreased T1 signal within the calcaneus, and there is indistinctness of the inferior and posterior cortical margins of the calcaneus. There is some soft tissue ulceration of the plantar surface of the heel, as well as marked thinning of the subcutaneous fat overlying the calcaneal tuberosity. There is considerable edema of the plantar surface subcutaneous fat. There is also edema of the subcutaneous fat of the lateral and medial ankle. No focal discrete fluid collection to suggest drainable abscess demonstrated. Impression: Evidence of ulceration overlying the calcaneal tuberosity Soft tissue gas within the heel, as described. This may represent penetration the above, but is worrisome for infection with a gas-forming organism Abnormal signal within the posterior and mid calcaneus, highly suspicious for acute osteomyelitis (8) Decubitus ulcer of heel (9) Diabetes mellitus out of control (10) Acute on chronic renal failure (11) NSTEMI (non-ST elevated myocardial infarction) (12) High anion gap metabolic acidosis (13) Choledocholithiasis Assessment & Plan: pending plt transfusion repeat labs in am needs EGD +/- peg PEG canceled given low PLT resume NGTF plan peg next week Unremarkable inferior vena cava. There is bilateral pleural fluid. Gallbladder demonstrates sludge. No definite gallstones. Gallbladder wall is thickened, measuring up to 3 mm thick, and there is pericholecystic edema. Patient unable to report sonographic Garcia's sign. Common bile duct measures 3 mm in diameter. No intrahepatic biliary ductal dilatation. Liver demonstrates normal echogenicity, no focal abnormality. Portal vein and hepatic veins are patent. There is trace ascites fluid. Pancreas is unremarkable. Spleen is unremarkable. Left kidney measures 11.4 cm in length. Right kidney measures 11.1 cm length. Both kidneys demonstrate slightly increased echogenicity. There is no hydronephrosis. No focal abnormality . Non-aneurysmal abdominal aorta . Impression: Ascites fluid Bilateral pleural effusions Negative for gallstones. Small amount of gallbladder sludge noted. Gallbladder wall thickening and pericholecystic edema is probably related to what ever process is causing the pleural fluid and ascites. Possibility of acute acalculous cholecystitis should also be considered, however. Echogenic kidneys, consistent with medical renal disease worsening overall unfortunately declining severe possible jeremy acalculous. but possible related to liver insufficiency high risk for bleeding and procedure recommend comfort measures (14) DVT (deep venous thrombosis) Joseph Alamo May 18, 2020 14:49
--- NOTE | 2020-05-18 15:55 | NUR ---
CASE MANAGEMENT:REVIEW 05/18/20 SI:SEPSIS. RT THIGH MASS/HEMATOMA ACUTE RENAL FAILURE ~ NOW ESRD ~ NON TUNNELLED CATH S/P PEG PLACEMENT 05/12/20. SEIZURE? 96.7 83 22 124/80 98% ON NRB 15L/100% WBC+20.0 H/H-8.3/24.3 PLT-75 BUN+36 CR+3.8 IS: IV ATIVAN Q4HRS PRN IV DECADRON Q24 IV MEROPENEM Q24 IV FLAGYL Q12 IV DOXYCYCLINE Q12 IVF@50/HR INSULIN SQ Q6HRS : TELEMETRY STATUS DCP: FROM [facility]
--- NOTE | 2020-05-18 16:27 | Infectious Diseases Prog Note ---
Assessment/Plan Assessment/Plan ASSESSMENT AND PLAN: 1. 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 c.diff., pancreatitis, liver failure, bleeding, thrombocytopenia covid-19 infection, covid testing now + (negative prior admission) with pna, ? aspiration pna/hcap, mrsa screen negative PEG planned, hematoma on CT noted - meropenem and doxycycline, add dexamethasone for worsening hypoxia and covid-19 infection - monitor labs, supportive care, chest x-ray, c.diff. - negative - no surgery per family, ERCP if can tolerate - poor prognosis, DNR/DNI - wound care per surgery 2. Acute renal failure. Dialysis. 3. Diabetes. 4. Hypertension. 5. Dyslipidemia. 6. Diabetes and hypertension treatment per primary care team. 7. Anemia. 8. Wound care per Surgery. 9. Allergic to penicillin. 10. Social history is negative. 11. Family history is noncontributory. 12. MAR is noted. 13. Case discussed with RN. Subjective Constitutional: Reports: fatigue, other - on breathing mask; Denies: fever HEENT: Reports: congestion Respiratory: Reports: shortness of breath Cardiovascular: Denies: chest pain Gastrointestinal/Abdominal: Denies: nausea, vomiting, diarrhea Genitourinary: Reports: other - +alaniz Neurologic: Reports: weakness, other - lethargic, weak Psychiatric: Denies: depression Skin: Denies: rash Hematologic: Denies: bleeding Musculoskeletal: Reports: other - NA Allergies: Coded Allergies: PENICILLINS (Verified Allergy, Unknown, 12/05/17) Objective Last 24 Hour Vital Signs Date Time Temp Pulse Resp B/P (MAP) Pulse Ox O2 Delivery O2 Flow Rate FiO2 05/18/20 12:00 96.7 83 22 124/80 (95) 98 05/18/20 09:00 Non-Rebreather 05/18/20 08:22 89 123/70 05/18/20 08:00 98.1 89 21 123/70 (87) 99 05/18/20 08:00 91 05/18/20 04:00 78 05/18/20 04:00 98.9 99 22 113/63 (80) 100 05/18/20 02:34 100 24 105/58 97 05/18/20 02:15 102 24 100 05/18/20 02:05 94 24 116/58 100 05/18/20 00:23 98 Non-Rebreather 15.0 100 05/18/20 00:00 96 05/18/20 00:00 98.9 100 24 133/66 (88) 100 05/18/20 00:00 99.2 102 24 118/61 (80) 100 05/17/20 22:25 Room Air 05/17/20 20:00 96.6 99 22 128/60 (82) 92 05/17/20 20:00 96 05/17/20 18:09 97 129/62 Height (Feet): 5 Height (Inches): 7.00 Weight (Pounds): 130 General Appearance: other - sob, no breathing mask HEENT: normocephalic, atraumatic Respiratory/Chest: crackles/rales, rhonchi - bilaterally Cardiovascular: normal rate, regular rhythm, no gallop/murmur Abdomen: normal bowel sounds, soft, non tender, no organomegaly, non distended Genitourinary: other - + alaniz Extremities: other - wounds covered Skin: no rash Neurologic/Psychiatric: other - lehtargic, weak Lymphatic: no neck adenopathy Musculoskeletal: no effusion Chest x-ray - 05/04/20 - Procedure: XRAY Chest 1v Indication: Shortness of breath Technique: One view of the chest Comparison: 03/31/2020 Findings: Interim placement of a right jugular temporary dialysis catheter in satisfactory position. No pneumothorax. The lungs and pleural spaces are clear. The heart size is normal Impression: No acute process Abdominal US: Impression: Ascites fluid Bilateral pleural effusions Negative for gallstones. Small amount of gallbladder sludge noted. Gallbladder wall thickening and pericholecystic edema is probably related to what ever process is causing the pleural fluid and ascites. Possibility of acute acalculous cholecystitis should also be considered, however. HIDA scan: IMPRESSION: 1. Lack of radiotracer excretion into the biliary tree precludes visualization of the gallbladder. 2. This study strongly suggests severe hepatocyte dysfunction. 3. Biliary tree and gallbladder cannot be evaluated on this exam due to lack of radiotracer extraction and excretion. 4. Correlate with presentation, and if there is further concern, consider additional imaging. CT abdomen and pelvis: IMPRESSION: 1. Partially visualized heterogeneous mass of the right inner thigh measuring up to 9.7 cm. This may represent benign etiology such as hematoma with underlying malignant process not excluded. Recommend clinical correlation for prior history of trauma. Further evaluation with MRI can be considered as clinically indicated. 2. Mild to moderate bilateral pleural effusions with associated compressive atelectasis. 3. Patchy bilateral ground glass airspace opacities, suspicious for atypical infectious process in the appropriate clinical setting. Differential also includes pulmonary edema. 4. Diffuse anasarca. 5. Enteric tube and Alaniz catheter within place. Chest x-ray - 05/15/20 - IMPRESSION: 1. There is been development of mild to moderate patchy bilateral mixed interstitial and alveolar infiltrates. These are most prominent in the perihilar regions and lower lobes. The infiltrates are most consistent with bilateral pneumonia, likely Covid 19. Asymmetric pulmonary edema considered less likely but cannot be excluded. 2. There is right IJ central venous catheter in good position at the aortocaval junction. There is an NG tube also good position with its tip in the mid stomach. Chest x-ray - 05/18/20 - Procedure: XRAY Chest 1v Indication: Cough Technique: One view of the chest Comparison: 05/15/2020 Findings: Centimeters satisfactory nasogastric tube tip position. Right jugular temporary dialysis catheter again demonstrated. Bilateral extensive infiltrates appear increased in the right mid and lower lung the left lung apex, stable elsewhere. Impression: Worsening bilateral infiltrates, over 3 days Microbiology Date/Time Source Procedure Growth Status 05/15/20 06:00 Stool Clostridium difficile Toxin Assay - Final Complete 05/11/20 16:54 Nasopharynx SARS-CoV-2 RdRp Gene Assay - Final Complete 05/01/20 15:50 Urine,Clean Catch Urine Culture - Preliminary Yeast Species Resulted 05/01/20 15:30 Rectum - Final NO CARBAPENEM-RESISTANT ENTEROBACTERI... Complete 05/01/20 07:10 Blood Blood Culture - Final NO GROWTH AFTER 5 DAYS Complete Laboratory Tests Test 05/17/20 23:47 05/18/20 01:46 05/18/20 06:12 05/18/20 06:24 POC Whole Blood Glucose 114 MG/DL (74-106) H 125 MG/DL (74-106) H 150 MG/DL (74-106) H White Blood Count 20.0 K/UL (4.8-10.8) H Red Blood Count 2.65 M/UL (4.20-5.40) L Hemoglobin 8.3 G/DL (12.0-16.0) L Hematocrit 24.3 % (37.0-47.0) L Mean Corpuscular Volume 92 FL (80-99) Mean Corpuscular Hemoglobin 31.3 PG (27.0-31.0) H Mean Corpuscular Hemoglobin Concent 34.0 G/DL (32.0-36.0) Red Cell Distribution Width 15.7 % (11.6-14.8) H Platelet Count 75 K/UL (150-450) #L Mean Platelet Volume 9.3 FL (6.5-10.1) Neutrophils (%) (Auto) % (45.0-75.0) Lymphocytes (%) (Auto) % (20.0-45.0) Monocytes (%) (Auto) % (1.0-10.0) Eosinophils (%) (Auto) % (0.0-3.0) Basophils (%) (Auto) % (0.0-2.0) Differential Total Cells Counted 100 Neutrophils % (Manual) 91 % (45-75) H Lymphocytes % (Manual) 7 % (20-45) L Monocytes % (Manual) 2 % (1-10) Eosinophils % (Manual) 0 % (0-3) Basophils % (Manual) 0 % (0-2) Band Neutrophils 0 % (0-8) Platelet Estimate Decreased L Platelet Morphology Normal Hypochromasia 1+ Anisocytosis 1+ Target Cells 1+ Haptoglobin Pending Sodium Level 143 MMOL/L (136-145) Potassium Level 4.1 MMOL/L (3.5-5.1) Chloride Level 107 MMOL/L (98-107) Carbon Dioxide Level 24 MMOL/L (21-32) Anion Gap 12 mmol/L (5-15) Blood Urea Nitrogen 36 mg/dL (7-18) H Creatinine 3.8 MG/DL (0.55-1.30) H Estimat Glomerular Filtration Rate 14.3 mL/min (>60) Glucose Level 182 MG/DL (74-106) H Calcium Level 7.9 MG/DL (8.5-10.1) L Phosphorus Level 4.0 MG/DL (2.5-4.9) Magnesium Level 1.9 MG/DL (1.8-2.4) Total Bilirubin 6.5 MG/DL (0.2-1.0) H Direct Bilirubin 6.0 MG/DL (0.0-0.3) H Aspartate Amino Transf (AST/SGOT) 225 U/L (15-37) H Alanine Aminotransferase (ALT/SGPT) 75 U/L (12-78) Alkaline Phosphatase 1273 U/L (46-116) H Total Protein 4.3 G/DL (6.4-8.2) L Albumin 1.2 G/DL (3.4-5.0) L Globulin 3.1 g/dL Albumin/Globulin Ratio 0.4 (1.0-2.7) L Test 05/18/20 08:50 Prothrombin Time 18.0 SEC (9.30-11.50) H Prothromb Time International Ratio 1.6 (0.9-1.1) H Fibrinogen 626 mg/dL (200-400) H Current Medications Medications (Trade) Dose Ordered Sig/Enrike Route PRN Reason Start Time Stop Time Status Last Admin Dose Admin Amlodipine Besylate (Norvasc) 5 mg BID ORAL 05/17/20 11:30 06/16/20 11:29 05/18/20 08:22 Bisacodyl (Dulcolax) 10 mg DAILYPRN PRN RECTAL Constipation 05/01/20 20:30 07/30/20 20:29 Chlorhexidine Gluconate (Holli-Hex 2%) 1 applic DAILY@2000 TOPIC 05/02/20 20:00 07/31/20 19:59 05/17/20 20:42 Dexamethasone Sodium Phosphate (Decadron 10mg/ ml Inj) 6 mg Q24HRS IV 05/19/20 01:00 05/27/20 01:01 Dextrose (Dextrose 50%) 25 ml Q30M PRN IV Hypoglycemia 05/01/20 20:30 07/30/20 20:29 Dextrose (Dextrose 50%) 50 ml Q30M PRN IV Hypoglycemia 05/01/20 20:30 07/30/20 20:29 Dextrose/Sodium Chloride 1,000 ml @ 50 mls/hr Q20H IV 05/14/20 20:30 06/13/20 20:29 05/18/20 02:47 Doxycycline Hyclate 100 mg/ Dextrose 110 ml @ 110 mls/hr Q12HR IV 05/08/20 21:00 05/24/20 23:59 05/18/20 08:22 Hydralazine HCl (Apresoline) 10 mg Q4H PRN IV SBP >160 05/16/20 07:45 08/14/20 07:44 Hydralazine HCl (Apresoline) 10 mg QIDPRN PRN IV BLOOD PRE 05/16/20 16:00 08/14/20 15:59 Insulin Aspart (NovoLOG) Q6HR SUBQ 05/03/20 00:00 08/01/20 00:00 05/18/20 13:20 Insulin Detemir (Levemir) 5 units DAILY SUBQ 05/13/20 10:00 08/11/20 09:59 05/18/20 08:30 Lorazepam (Ativan 2mg/ml 1ml) 2 mg Q4H PRN IV For Anxiety 05/18/20 02:00 05/25/20 01:59 05/18/20 02:05 Meropenem 500 mg/ Sodium Chloride 50 ml @ 100 mls/hr Q24HRS IVPB 05/14/20 21:00 05/23/20 20:59 05/17/20 22:56 Metronidazole 100 ml @ 100 mls/hr Q12H IVPB 05/14/20 20:00 05/21/20 19:59 05/18/20 08:21 Morphine Sulfate (Morphine Sulfate) 2 mg Q4H PRN IVP For Pain 05/15/20 16:30 05/22/20 16:29 05/16/20 00:51 Ondansetron HCl (Zofran) 4 mg Q6H PRN IVP Nausea & Vomiting 05/01/20 20:30 05/31/20 20:29 Pantoprazole (Protonix) 40 mg EVERY 12 HOURS IVP 05/12/20 16:15 06/11/20 16:14 05/18/20 08:22 Sodium Hypochlorite (Dakin's Quarter Strength) 1 applic DAILY TOPIC 05/05/20 09:00 06/04/20 08:59 05/18/20 10:09 Elyse Leung MD May 18, 2020 16:27
--- NOTE | 2020-05-18 17:23 | General Progress Note ---
Subjective Date patient seen: May 18, 2020 ROS Limited/Unobtainable: Yes Allergies: Coded Allergies: PENICILLINS (Verified Allergy, Unknown, 12/05/17) Subjective No acute events overnight. Patient still altered and not speaking. Unable to obtain ROS due to ALOC Objective Last 24 Hour Vital Signs Date Time Temp Pulse Resp B/P (MAP) Pulse Ox O2 Delivery O2 Flow Rate FiO2 05/18/20 16:00 95 05/18/20 16:00 98.7 71 20 137/73 (94) 97 05/18/20 12:00 96.7 83 22 124/80 (95) 98 05/18/20 12:00 97 05/18/20 09:00 Non-Rebreather 05/18/20 08:22 89 123/70 05/18/20 08:00 98.1 89 21 123/70 (87) 99 05/18/20 08:00 91 05/18/20 04:00 78 05/18/20 04:00 98.9 99 22 113/63 (80) 100 05/18/20 02:34 100 24 105/58 97 05/18/20 02:15 102 24 100 05/18/20 02:05 94 24 116/58 100 05/18/20 00:23 98 Non-Rebreather 15.0 100 05/18/20 00:00 96 05/18/20 00:00 98.9 100 24 133/66 (88) 100 05/18/20 00:00 99.2 102 24 118/61 (80) 100 05/17/20 22:25 Room Air 05/17/20 20:00 96.6 99 22 128/60 (82) 92 05/17/20 20:00 96 05/17/20 18:09 97 129/62 Intake and Output 05/17/20 05/18/20 19:00 07:00 Intake Total 50 ml 550 ml Output Total 150 ml 150 ml Balance -100 ml 400 ml Tube Feeding 50 ml 550 ml Output Urine Total 150 ml 150 ml # Bowel Movements 1 2 Laboratory Tests 05/17/20 23:47: POC Whole Blood Glucose 114H 05/18/20 01:46: POC Whole Blood Glucose 125H 05/18/20 06:12: POC Whole Blood Glucose 150H 05/18/20 06:24: White Blood Count 20.0H, Red Blood Count 2.65L, Hemoglobin 8.3L, Hematocrit 24.3L, Mean Corpuscular Volume 92, Mean Corpuscular Hemoglobin 31.3H, Mean Corpuscular Hemoglobin Concent 34.0, Red Cell Distribution Width 15.7H, Platelet Count 75#L, Mean Platelet Volume 9.3, Neutrophils (%) (Auto) , Lymphocytes (%) (Auto) , Monocytes (%) (Auto) , Eosinophils (%) (Auto) , Basophils (%) (Auto) , Differential Total Cells Counted 100, Neutrophils % (Manual) 91H, Lymphocytes % (Manual) 7L, Monocytes % (Manual) 2, Eosinophils % (Manual) 0, Basophils % (Manual) 0, Band Neutrophils 0, Platelet Estimate DecreasedL, Platelet Morphology Normal, Hypochromasia 1+, Anisocytosis 1+, Target Cells 1+, Haptoglobin [Pending], Sodium Level 143, Potassium Level 4.1, Chloride Level 107, Carbon Dioxide Level 24, Anion Gap 12, Blood Urea Nitrogen 36H, Creatinine 3.8H, Estimat Glomerular Filtration Rate 14.3, Glucose Level 182H, Calcium Level 7.9L, Phosphorus Level 4.0, Magnesium Level 1.9, Total Bilirubin 6.5H, Direct Bilirubin 6.0H, Aspartate Amino Transf (AST/SGOT) 225H, Alanine Aminotransferase (ALT/SGPT) 75, Alkaline Phosphatase 1273H, Total Protein 4.3L, Albumin 1.2L, Globulin 3.1, Albumin/Globulin Ratio 0.4L 05/18/20 08:50: Prothrombin Time 18.0H, Prothromb Time International Ratio 1.6H, Fibrinogen 626H Height (Feet): 5 Height (Inches): 7.00 Weight (Pounds): 130 Objective General: WDWN female in NAD, A&O x 0 (baseline is A&o x 1), nonverbal, sleeping, in no acute distress HEENT: Normocephalic cephalic atraumatic, pupils equal round reactive to light and accommodation, nares patent and no symmetrical, no tonsillar exudates, mucous membranes moist CV: Regular rate regular rhythm, no murmurs, rubs, or gallops Pulm: Lungs clear to auscultation bilaterally. No wheezes, rhonchi, or rales GI: Soft, Non TTP in RUQ nondistended, bowel sounds present Neuro: CN 2-12 intact bilaterally, no focal signs. Ext: No lower extremity edema bilaterally. UE and LE 2-3+ edema. Large right thigh firm mass. No fluctuance. No drainage seen. Skin: no rashes lesions or ulcers Msk: Joints symmetrical in upper extremity and lower extremity bilaterally, no joint swelling. Lymph: No lymphadenopathy in upper extremity and lower extremity CXR 05/04/2020 Technique: One view of the chest Comparison: 03/31/2020 Findings: Interim placement of a right jugular temporary dialysis catheter in satisfactory position. No pneumothorax. The lungs and pleural spaces are clear. The heart size is normal Impression: No acute process Assessment/Plan Assessment/Plan: This is a 69-year-old female presenting with acute encephalopathy, JYOTI, acute UTI; now ESRD on HD, Encephalopathic w/ Dysphagia and Chronic Osteo: #Sepsis due to possible Cholangitis - stable #Severe hepatocyte dysfunction, concern for liver failure ? etiology. COVID-positive #Transaminitis due to liver failure - HIDA scan reviewed - Appreciate surgery input: D/w Dr. Alamo - No surgical interventions at this point. Not a candidate - Appreciate GI Input: D/w Dr. Hay/Dr. Nur - CT A/P reviewed - defer further procedures/imaging to GI and Surgery and discussion of risks/benefits with patient's sister - Sister Elisha (medical decision maker), understands grave prognosis and ok with current medical treatment but would not like further procedures if could cause harm. Surgery explained not candidate for procedures at this time and poor prognosis. . #Right thigh mass #right thigh hematoma > does not appear to be infected. D/w surgery - CTM - supportive measures #Thrombocytopenia #Anemia of Chronic Dx #Acute blood loss anemia #melena #hematuria -Appreciate Heme -Transfuse platelets to maintain above 15 to avoid ICH or above 50 if active bleeding -Transfuse for HGB less than 7 -HIT panel pending -Trend CBC - 2 unit platelets again today. Consent obtained from Elisha #Acute Renal Failure now ESRD requiring HD s/p Doyle --> ATN? Normal Renal US -Appreciate Nephro; S/P Fluid Challenge -Will order Permcath Placement--> on hold 2/2 thrombocytopenia -Continue HD as scheduled; Midodrine prn Hypotension -Continue Sodium Bicarb Tabs #hypertension - hydralazine PRN - Appreciate nephrology recommendations #hypokalemia - replete PRN #Acute on chronic Metabolic Encephalopathy Exacerbated by Dementia #Dysphagia 2/2 Above -Appreciate Neuro, CTH WNL -Avoid Sedating Medications -Pending PEG tube placement per GI --> on hold 2 thrombocytopenia -Tube Feeding for now #DMII - ISS, Add long acting prn - lantus 5 units daily #LLE Osteo-Appreciate ID #[email or web address] -Cultures noted; S/P Broad Spectrum AB -Current AB: Cefepime/Flagyl/Doxy until 05/24 #COVID positive - asymptomatic - CTM - ID on board - > no medications available as patient not hypoxic #LUE DVT -venous duplex US reviewed -appreciate heme recommendations -off A/C due to bleeding -CTM FENPPX DVTPPX: HSQ (holding due to low platelets) Fluids: as above Diet: pending PEG Lines: PT/OT: pending Code status: Full per SNF Dispo: back to SNF Reason for Continued Hospitalization: jyoti, bleeding MIPS ([employer]-based Incentive Payment System) Applicable CPT: 00718, 19762 CHECK ALL THAT ARE MET: [] Measure #5 (CHF): All ages. Prescribe DESTINEY/ARB upon discharge for patients with left ventricular systolic dysfunction. If not, the reason is clearly documented in the medical chart [] Measure #8 (CHF): All ages. Prescribe a beta jennifer upon discharge for patients with left ventricular systolic dysfunction. If not, the reason is clearly documented in the medical chart. [] Measure #47: Advance care plan or surrogate decision maker documented in the medical record. [x] Measure #130 The provider has documented, updated, or reviewed the patients current medication list and has documented it in the patients note. [x] Measure #374 (All): Send report to referring provider. [] Measure #407(Sepsis due to MSSA bacteremia): Age 18+ Patient treated with a beta-lactam antibiotic (Nafcillin, Oxacillin or Cefazolin) as definitive therapy. MEDICAL COMPLEXITYHigh complexity medical decision making (need 2/3 categories)Problem - need 4 points [x]Acute/new problem with new plan for workup (4 points, 1 max) [] Acute/new problem without additional workup (3 points, 1 max) [x] Unstable chronic problem actively being managed (2 point each, 2 max) [x] Stable chronic problem actively being managed (1 point each, 2 max) [x] Self-limited/transient process (constipation, muscle ache, etc) (1 point each, 2 max) Data - need 4 points [x] Reviewed labs/imaging studies (1 points, 2 max) [x] Independent review of imaging (EKG, xrays, etc) (2 points, 2 max) [x] Discussed case with consult/other MD/RN (2 points, 2 max) High Risk - qualify if have one of the following: [] Severe exacerbation of acute problem, acute mental status change, IV narcotics, monitoring drug levels (vancomycin, INR, tacrolimus etc) I spent 39 minutes on this patient's case, and 24 mins was dedicated to counseling and/or care coordination. Discussed with nephro, ID, gen surgery, neurology. Time of note may not reflect time of encounter Carlton Story M.D. May 18, 2020 17:23
--- NOTE | 2020-05-18 19:14 | NUR ---
NURSE NOTES: HD scheduled for today, Jamie SERRANO [facility] made aware, she will work with patient at 2100.
--- NOTE | 2020-05-18 19:15 | NUR ---
NURSE HAND-OFF REPORT: Important Events on Shift:[platelets x1, wound care, loose BM, HD for today] Patient Status: [DNR/DNI] Diet: [tube feeding] Pending Orders: [hemodialysis] Pending Results/Labs:[] Pending MD notification:[] Latest Vital Signs: Temperature 98.7 , Pulse 95 , B/P 137 /73 , Respiratory Rate 20 , O2 SAT 97 , Room Air, O2 Flow Rate 15.0 . Vital Sign Comment: [] EKG Rhythm: Sinus Rhythm Rhythm change?: N MD Notified?: - MD Response: Latest Hernandez Fall Score: 70 Fall Risk: High Risk Safety Measures: Call light Within Reach, Bed Alarm Zone 1, Side Rails Side Rails x3, Bed position Low and Locked. Fall Precautions: Yellow Socks Yellow Gown Door Sign Patient Fall Education Report given to [Paulo SERRANO].
--- NOTE | 2020-05-18 19:30 | NUR ---
NURSE NOTES: Report received from ZACH Gutierrez. Patient is alert and oriented x 0, obtunded and open her eyes with localized pain. data transcriber is in place, shows sinus rhythm. On oxygen via nonrebreather @ 15 Lpm sating 97-98%. With NGT on right nostril, on nepro 35 cc/hour, flushing of 50 ml every 6 hours. On aspiration precaution, elevated head of bed at all times. With right IJ running D5 1/2 NS @ 50 cc/hour. Safety measures are in place, bed in lowest and locked position, will continue plan of care.
[2020-05-18] MEDS: Dyna-Hex 2% Top Sol 2oz TOPIC SCH (21:24)
--- NOTE | 2020-05-18 21:42 | Neurology Progress Note ---
Interim History Interim History ROS Limited/Unobtainable: Yes Interim History no new deficits no interaction Objective Physical Exam Last Vital Signs Date Time Temp Pulse Resp B/P (MAP) Pulse Ox O2 Delivery O2 Flow Rate FiO2 05/18/20 20:10 98 Non-Rebreather 15.0 100 05/18/20 17:44 95 137/73 05/18/20 16:00 98.7 20 Laboratory Tests Test 05/17/20 23:47 05/18/20 01:46 05/18/20 06:12 05/18/20 06:24 POC Whole Blood Glucose 114 MG/DL (74-106) H 125 MG/DL (74-106) H 150 MG/DL (74-106) H White Blood Count 20.0 K/UL (4.8-10.8) H Red Blood Count 2.65 M/UL (4.20-5.40) L Hemoglobin 8.3 G/DL (12.0-16.0) L Hematocrit 24.3 % (37.0-47.0) L Mean Corpuscular Volume 92 FL (80-99) Mean Corpuscular Hemoglobin 31.3 PG (27.0-31.0) H Mean Corpuscular Hemoglobin Concent 34.0 G/DL (32.0-36.0) Red Cell Distribution Width 15.7 % (11.6-14.8) H Platelet Count 75 K/UL (150-450) #L Mean Platelet Volume 9.3 FL (6.5-10.1) Neutrophils (%) (Auto) % (45.0-75.0) Lymphocytes (%) (Auto) % (20.0-45.0) Monocytes (%) (Auto) % (1.0-10.0) Eosinophils (%) (Auto) % (0.0-3.0) Basophils (%) (Auto) % (0.0-2.0) Differential Total Cells Counted 100 Neutrophils % (Manual) 91 % (45-75) H Lymphocytes % (Manual) 7 % (20-45) L Monocytes % (Manual) 2 % (1-10) Eosinophils % (Manual) 0 % (0-3) Basophils % (Manual) 0 % (0-2) Band Neutrophils 0 % (0-8) Platelet Estimate Decreased L Platelet Morphology Normal Hypochromasia 1+ Anisocytosis 1+ Target Cells 1+ Haptoglobin Pending Sodium Level 143 MMOL/L (136-145) Potassium Level 4.1 MMOL/L (3.5-5.1) Chloride Level 107 MMOL/L (98-107) Carbon Dioxide Level 24 MMOL/L (21-32) Anion Gap 12 mmol/L (5-15) Blood Urea Nitrogen 36 mg/dL (7-18) H Creatinine 3.8 MG/DL (0.55-1.30) H Estimat Glomerular Filtration Rate 14.3 mL/min (>60) Glucose Level 182 MG/DL (74-106) H Calcium Level 7.9 MG/DL (8.5-10.1) L Phosphorus Level 4.0 MG/DL (2.5-4.9) Magnesium Level 1.9 MG/DL (1.8-2.4) Total Bilirubin 6.5 MG/DL (0.2-1.0) H Direct Bilirubin 6.0 MG/DL (0.0-0.3) H Aspartate Amino Transf (AST/SGOT) 225 U/L (15-37) H Alanine Aminotransferase (ALT/SGPT) 75 U/L (12-78) Alkaline Phosphatase 1273 U/L (46-116) H Total Protein 4.3 G/DL (6.4-8.2) L Albumin 1.2 G/DL (3.4-5.0) L Globulin 3.1 g/dL Albumin/Globulin Ratio 0.4 (1.0-2.7) L Test 05/18/20 08:50 Prothrombin Time 18.0 SEC (9.30-11.50) H Prothromb Time International Ratio 1.6 (0.9-1.1) H Fibrinogen 626 mg/dL (200-400) H Impression/Recommendations Problems: (1) Sepsis (2) Hyperkalemia (3) Leukocytosis (4) Altered mental status (5) Diabetes mellitus out of control (6) Acute on chronic renal failure (7) NSTEMI (non-ST elevated myocardial infarction) (8) High anion gap metabolic acidosis (9) Sacral decubitus ulcer (10) Decubitus ulcer of heel (11) UTI (urinary tract infection) (12) JYOTI (acute kidney injury) Diagnostic Impression acute metabolic encephalopathy jyoti sepsis baseline dementia cont ivfs delirium precautions no need for mri brain cont atb Eskenazi ,Thee MD May 18, 2020 21:42
--- NOTE | 2020-05-18 23:27 | NUR ---
NURSE NOTES: Dialysis done, 2liters out as per HD nurse reported. Will continue to monitor.
[2020-05-19] VITALS: BP 130/79
[2020-05-19] MEDS: NovoLOG Insulin Flexpen SUBQ SCH ×2 (00:19→05:35)
[2020-05-19] MEDS ORDERED: dexAMETHasone 10mg/ml Inj IV SCH ×2 (01:00→09:00)
[2020-05-19] MEDS: D5NS 1,000 ML IV SCH (01:03)
[2020-05-19 04:00] VITALS: BP 133/72
--- NOTE | 2020-05-19 06:00 | NUR ---
NURSE NOTES: Patient is sating 8-85% at this time, elevated head of bed. Will call Dr. Veras.
--- NOTE | 2020-05-19 06:24 | Hematology/Onc Progress Note ---
Assessment/Plan Assessment/Plan Assessment and Recs # Thrombocytopenia likely secondary to left heel and foot osteomyelitis/infection/dic --> likely due to infected wounds, heel ulcerations --> ABX flucon/flagyl/cefepime-->doxy/cefepime-->doxy/meropenem --> Peripheral smear, reviewed, hold off flow for now --> elev inflammatory markers --> WBC 35-->22-->18-->14-->13-->11.4->>>13-->17-->31->20 --> plt 55-->23-->26-->22-->54-->51-->35-->75 --> 2 units plt 05/13 --> DIC panel neg besides high inr # Anemia due to underlying chronic disease. --> Continue to closely monitor for improvement. --> Anemia w/u has been reviewed. Will trend cbc daily. --> Hgb goal >7 -> hgb 12-->10.7->9.4-->9.5->10-->7.3-->5.7-->6.2-->8-->6.4-->10-->8.4-->8.3 --> 2 units 05/07, 2 units / --> anemia panel reviewed before # Left upper extremity axillary, subclavian, and brachial venous thrombosis --> heparin gtt was started-->now changed to lovenox as supertherapeutic->now HELD due to severe anemia --> consider eliquis or coumadin once closer to dc --> patient does have eleno/ckd, thus agent needed not affected by renal function --> monitor for bleed # Coagulopathy with elev inr/ptt --> vit k and ffp as needed --> monitor for bleeding # Hyperkalemia. Given Kayexalate. --> Improved # Diabetic ketoacidosis. --> per before, improved # ESRD --> hd with line inserted # Shortness of breath in past with dka # Dvt ppx --> scds The time the note was entered does not necessarily correspond to the time the patient was seen. Subjective HEENT: Denies: no symptoms, eye pain, blurred vision, tearing, double vision, ear pain, ear discharge, nose pain, nose congestion, throat pain, throat swelling, mouth pain, mouth swelling, other Cardiovascular: Denies: no symptoms, chest pain, edema, irregular heart rate, lightheadedness, palpitations, syncope, other Respiratory: Denies: no symptoms, cough, shortness of breath, SOB with excertion, SOB at rest, sputum, wheezing, other Neurologic/Psychiatric: Denies: no symptoms, anxiety, depressed, emotional problems, headache, numbness, paresthesia, pre-existing deficit, seizure, tingling, tremors, weakness, other Endocrine: Denies: no symptoms, excessive sweating, flushing, intolerance to cold, intolerance to heat, increased hunger, increased thirst, increased urine, unexplained weight gain, unexplained weight loss, other Allergies: Coded Allergies: PENICILLINS (Verified Allergy, Unknown, 12/05/17) Subjective 05/05 hgb 7.3 this am, plts lower, no bleeding, ptt elev, will hold off hep gtt 05/06 labs noted, no bleeding, now on lovenox sq, sis somnolent in am 05/07 is on lovenox sq, is s/p transfusion, labs noted, on abx 05/09 anticoag is held, pending for cbc today, labs noted 05/10 anticoag held, for platelets to goal >50k, with coffee ground emesis 05/11 hd was given last night, bp was low and albumin administered, bp better 05/12 nv, labs reviewed, aphasic, plt 26 yesterday, meds reviewed, to get cbc today 05/13 2nd bag of platelets is pending, jessie Rn, plt recently 22k 05/14 plt improved to 54k, hit panel pending, is on abx 05/15: plt 59k, labs reviewed. 05/16: ct abd reviewed hematoma 05/17 remains confused, labs pending, plts in 50 range, wbc 24, on abx 05/18 remains confused, labs are pending, ordered DIc panel, s/p transfusion 05/19 labs are noted, confused, meds reviewed, is on dex, abx Objective Objective Current Medications Medications (Trade) Dose Ordered Sig/Enrike Route PRN Reason Start Time Stop Time Status Last Admin Dose Admin Amlodipine Besylate (Norvasc) 5 mg BID ORAL 05/17/20 11:30 06/16/20 11:29 05/18/20 17:44 Bisacodyl (Dulcolax) 10 mg DAILYPRN PRN RECTAL Constipation 05/01/20 20:30 07/30/20 20:29 Chlorhexidine Gluconate (Holli-Hex 2%) 1 applic DAILY@2000 TOPIC 05/02/20 20:00 07/31/20 19:59 05/18/20 21:24 Dexamethasone Sodium Phosphate (Decadron 10mg/ ml Inj) 6 mg DAILY IV 05/19/20 09:00 05/27/20 09:01 Dextrose (Dextrose 50%) 25 ml Q30M PRN IV Hypoglycemia 05/01/20 20:30 07/30/20 20:29 Dextrose (Dextrose 50%) 50 ml Q30M PRN IV Hypoglycemia 05/01/20 20:30 07/30/20 20:29 Dextrose/Sodium Chloride 1,000 ml @ 50 mls/hr Q20H IV 05/14/20 20:30 06/13/20 20:29 05/19/20 01:03 Doxycycline Hyclate 100 mg/ Dextrose 110 ml @ 110 mls/hr Q12HR IV 05/08/20 21:00 05/24/20 23:59 05/18/20 08:22 Hydralazine HCl (Apresoline) 10 mg Q4H PRN IV SBP >160 05/16/20 07:45 08/14/20 07:44 Hydralazine HCl (Apresoline) 10 mg QIDPRN PRN IV BLOOD PRE 05/16/20 16:00 08/14/20 15:59 Insulin Aspart (NovoLOG) Q6HR SUBQ 05/03/20 00:00 08/01/20 00:00 05/19/20 05:35 Insulin Detemir (Levemir) 5 units DAILY SUBQ 05/13/20 10:00 08/11/20 09:59 05/18/20 08:30 Lorazepam (Ativan 2mg/ml 1ml) 2 mg Q4H PRN IV For Anxiety 05/18/20 02:00 05/25/20 01:59 05/18/20 02:05 Meropenem 500 mg/ Sodium Chloride 50 ml @ 100 mls/hr Q24HRS IVPB 05/14/20 21:00 05/23/20 20:59 05/17/20 22:56 Morphine Sulfate (Morphine Sulfate) 2 mg Q4H PRN IVP For Pain 05/15/20 16:30 05/22/20 16:29 05/16/20 00:51 Ondansetron HCl (Zofran) 4 mg Q6H PRN IVP Nausea & Vomiting 05/01/20 20:30 05/31/20 20:29 Pantoprazole (Protonix) 40 mg EVERY 12 HOURS IVP 05/12/20 16:15 06/11/20 16:14 05/18/20 08:22 Sodium Hypochlorite (Dakin's Quarter Strength) 1 applic DAILY TOPIC 05/05/20 09:00 06/04/20 08:59 05/18/20 10:09 Last 24 Hour Vital Signs Date Time Temp Pulse Resp B/P (MAP) Pulse Ox O2 Delivery O2 Flow Rate FiO2 05/19/20 04:00 97.1 94 18 133/72 (92) 90 05/19/20 03:12 102 05/19/20 00:00 97.3 97 19 130/79 (96) 97 05/18/20 23:12 95 05/18/20 21:00 Non-Rebreather 05/18/20 20:10 98 Non-Rebreather 15.0 100 05/18/20 20:00 90 05/18/20 20:00 96.1 93 19 138/70 (92) 93 05/18/20 17:44 95 137/73 05/18/20 16:00 95 05/18/20 16:00 98.7 71 20 137/73 (94) 97 05/18/20 12:00 96.7 83 22 124/80 (95) 98 05/18/20 12:00 97 05/18/20 09:00 Non-Rebreather 05/18/20 08:29 99 Non-Rebreather 15.0 100 05/18/20 08:22 89 123/70 05/18/20 08:00 98.1 89 21 123/70 (87) 99 05/18/20 08:00 91 05/18/20 04:00 78 05/18/20 04:00 98.9 99 22 113/63 (80) 100 05/18/20 02:34 100 24 105/58 97 05/18/20 02:15 102 24 100 05/18/20 02:05 94 24 116/58 100 05/18/20 00:23 98 Non-Rebreather 15.0 100 05/18/20 00:00 96 05/18/20 00:00 98.9 100 24 133/66 (88) 100 05/18/20 00:00 99.2 102 24 118/61 (80) 100 05/17/20 22:25 Room Air 05/17/20 20:00 96.6 99 22 128/60 (82) 92 05/17/20 20:00 96 05/17/20 18:09 97 129/62 05/17/20 16:00 91.0 79 20 141/81 (101) 94 05/17/20 16:00 79 05/17/20 12:00 77 05/17/20 12:00 97.2 79 18 135/69 (91) 93 05/17/20 11:40 79 135/69 05/17/20 09:00 Room Air 05/17/20 08:00 78 05/17/20 08:00 97.5 60 18 140/79 (99) 93 Intake and Output 05/18/20 05/19/20 19:00 07:00 Intake Total 150 ml 1200 ml Output Total 1200 ml Balance -1050 ml 1200 ml Free Water 150 ml IV Total 50 ml 500 ml Tube Feeding 100 ml 550 ml Output Urine Total 1200 ml # Voids 3 Labs Test 05/16/20 11:40 05/16/20 12:00 05/16/20 18:44 05/17/20 10:30 POC Whole Blood Glucose 98 MG/DL (74-106) 95 MG/DL (74-106) White Blood Count 25.7 K/UL (4.8-10.8) 24.5 K/UL (4.8-10.8) Red Blood Count 2.71 M/UL (4.20-5.40) 2.81 M/UL (4.20-5.40) Hemoglobin 8.4 G/DL (12.0-16.0) 8.7 G/DL (12.0-16.0) Hematocrit 24.4 % (37.0-47.0) 25.1 % (37.0-47.0) Mean Corpuscular Volume 90 FL (80-99) 90 FL (80-99) Mean Corpuscular Hemoglobin 31.0 PG (27.0-31.0) 31.1 PG (27.0-31.0) Mean Corpuscular Hemoglobin Concent 34.4 G/DL (32.0-36.0) 34.7 G/DL (32.0-36.0) Red Cell Distribution Width 16.6 % (11.6-14.8) 16.6 % (11.6-14.8) Platelet Count 51 K/UL (150-450) 35 K/UL (150-450) Mean Platelet Volume 9.6 FL (6.5-10.1) 11.5 FL (6.5-10.1) Neutrophils (%) (Auto) % (45.0-75.0) % (45.0-75.0) Lymphocytes (%) (Auto) % (20.0-45.0) % (20.0-45.0) Monocytes (%) (Auto) % (1.0-10.0) % (1.0-10.0) Eosinophils (%) (Auto) % (0.0-3.0) % (0.0-3.0) Basophils (%) (Auto) % (0.0-2.0) % (0.0-2.0) Differential Total Cells Counted 100 100 Neutrophils % (Manual) 92 % (45-75) 93 % (45-75) Lymphocytes % (Manual) 3 % (20-45) 5 % (20-45) Monocytes % (Manual) 1 % (1-10) 1 % (1-10) Eosinophils % (Manual) 0 % (0-3) 0 % (0-3) Basophils % (Manual) 0 % (0-2) 0 % (0-2) Band Neutrophils 4 % (0-8) 0 % (0-8) Platelet Estimate Decreased Decreased Platelet Morphology Normal Hypochromasia 1+ 1+ Anisocytosis 1+ 1+ Prothrombin Time 16.5 SEC (9.30-11.50) Prothromb Time International Ratio 1.5 (0.9-1.1) Activated Partial Thromboplast Time 59 SEC (23-33) Sodium Level 141 MMOL/L (136-145) 142 MMOL/L (136-145) Potassium Level 3.5 MMOL/L (3.5-5.1) 3.4 MMOL/L (3.5-5.1) Chloride Level 108 MMOL/L (98-107) 108 MMOL/L (98-107) Carbon Dioxide Level 23 MMOL/L (21-32) 25 MMOL/L (21-32) Anion Gap 10 mmol/L (5-15) 9 mmol/L (5-15) Blood Urea Nitrogen 39 mg/dL (7-18) 31 mg/dL (7-18) Creatinine 3.9 MG/DL (0.55-1.30) 3.4 MG/DL (0.55-1.30) Estimat Glomerular Filtration Rate 13.8 mL/min (>60) 16.2 mL/min (>60) Glucose Level 104 MG/DL (74-106) 135 MG/DL (74-106) Calcium Level 7.4 MG/DL (8.5-10.1) 7.4 MG/DL (8.5-10.1) Phosphorus Level 3.0 MG/DL (2.5-4.9) 3.2 MG/DL (2.5-4.9) Magnesium Level 1.9 MG/DL (1.8-2.4) 1.9 MG/DL (1.8-2.4) Total Bilirubin 5.1 MG/DL (0.2-1.0) 6.0 MG/DL (0.2-1.0) Direct Bilirubin 4.7 MG/DL (0.0-0.3) 5.3 MG/DL (0.0-0.3) Aspartate Amino Transf (AST/SGOT) 216 U/L (15-37) 206 U/L (15-37) Alanine Aminotransferase (ALT/SGPT) 92 U/L (12-78) 82 U/L (12-78) Alkaline Phosphatase 989 U/L (46-116) 990 U/L (46-116) Total Creatine Kinase 89 U/L (26-140) Total Protein 3.8 G/DL (6.4-8.2) 4.3 G/DL (6.4-8.2) Albumin 1.0 G/DL (3.4-5.0) 1.2 G/DL (3.4-5.0) Globulin 2.8 g/dL 3.1 g/dL Albumin/Globulin Ratio 0.4 (1.0-2.7) 0.4 (1.0-2.7) Lacie-Cohen Virus Capsid Ag IgM Ab <36.0 U/mL (0.0-35.9) Hepatitis A IgM Antibody Negative (Negative) Myelocytes % 1 % (0-0) Giant Platelets Occasional Test 05/17/20 23:47 05/18/20 01:46 05/18/20 06:12 05/18/20 06:24 POC Whole Blood Glucose 114 MG/DL (74-106) 125 MG/DL (74-106) 150 MG/DL (74-106) White Blood Count 20.0 K/UL (4.8-10.8) Red Blood Count 2.65 M/UL (4.20-5.40) Hemoglobin 8.3 G/DL (12.0-16.0) Hematocrit 24.3 % (37.0-47.0) Mean Corpuscular Volume 92 FL (80-99) Mean Corpuscular Hemoglobin 31.3 PG (27.0-31.0) Mean Corpuscular Hemoglobin Concent 34.0 G/DL (32.0-36.0) Red Cell Distribution Width 15.7 % (11.6-14.8) Platelet Count 75 K/UL (150-450) Mean Platelet Volume 9.3 FL (6.5-10.1) Neutrophils (%) (Auto) % (45.0-75.0) Lymphocytes (%) (Auto) % (20.0-45.0) Monocytes (%) (Auto) % (1.0-10.0) Eosinophils (%) (Auto) % (0.0-3.0) Basophils (%) (Auto) % (0.0-2.0) Differential Total Cells Counted 100 Neutrophils % (Manual) 91 % (45-75) Lymphocytes % (Manual) 7 % (20-45) Monocytes % (Manual) 2 % (1-10) Eosinophils % (Manual) 0 % (0-3) Basophils % (Manual) 0 % (0-2) Band Neutrophils 0 % (0-8) Platelet Estimate Decreased Platelet Morphology Normal Hypochromasia 1+ Anisocytosis 1+ Target Cells 1+ Sodium Level 143 MMOL/L (136-145) Potassium Level 4.1 MMOL/L (3.5-5.1) Chloride Level 107 MMOL/L (98-107) Carbon Dioxide Level 24 MMOL/L (21-32) Anion Gap 12 mmol/L (5-15) Blood Urea Nitrogen 36 mg/dL (7-18) Creatinine 3.8 MG/DL (0.55-1.30) Estimat Glomerular Filtration Rate 14.3 mL/min (>60) Glucose Level 182 MG/DL (74-106) Calcium Level 7.9 MG/DL (8.5-10.1) Phosphorus Level 4.0 MG/DL (2.5-4.9) Magnesium Level 1.9 MG/DL (1.8-2.4) Total Bilirubin 6.5 MG/DL (0.2-1.0) Direct Bilirubin 6.0 MG/DL (0.0-0.3) Aspartate Amino Transf (AST/SGOT) 225 U/L (15-37) Alanine Aminotransferase (ALT/SGPT) 75 U/L (12-78) Alkaline Phosphatase 1273 U/L (46-116) Total Protein 4.3 G/DL (6.4-8.2) Albumin 1.2 G/DL (3.4-5.0) Globulin 3.1 g/dL Albumin/Globulin Ratio 0.4 (1.0-2.7) Test 05/18/20 08:50 Prothrombin Time 18.0 SEC (9.30-11.50) Prothromb Time International Ratio 1.6 (0.9-1.1) Fibrinogen 626 mg/dL (200-400) Height (Feet): 5 Height (Inches): 7.00 Weight (Pounds): 130 Objective Physical Exam Vitals: reviewed, normal General Appearance: no apparent distress, non-toxic, lethargic HEENT: bilateral eye normal inspection, bilateral eye PERRL Neck: full range of motion, supple/symm/no masses Resp: chest non-tender, lungs clear, normal breath sounds, speaking full sentences Cardiovascular: regular rate, rhythm, no edema Gastrointestinal: normal bowel sounds, non tender Rectal: deferred Genitourinary: normal inspection, no CVA tenderness Musculoskeletal: back normal, gait/station normal, non-tender Lymphatic: no adenopathy David De Jesus MD May 19, 2020 06:24
--- NOTE | 2020-05-19 06:30 | NUR ---
NURSE NOTES: Dr. Lo called and informed regarding patient's saturation on non rebreather mask at this time. No orders was made, per MD he will call back again and discuss the situation to incoming MD.
--- NOTE | 2020-05-19 07:05 | NUR ---
NURSE HAND-OFF REPORT: Important Events on Shift: Patient has been desaturate since 4 in the morning. She was 90% at 0400 and after we cleaned her up her oxygen drops to 84-85%. Called Dr. Veras and per Dr. Lo, he will call back and discuss the patient's condition to incoming araceli MCCRAY. Patient Status: Patient is obtunded, on non-rebreather mask sating 83-85%. Plan of care endorsed. Diet: Nephro 35 cc/hour, flushing of 50 ml. Pending Orders: chest xray Pending Results/Labs:AM lab result Pending MD notification:none Latest Vital Signs: Temperature 97.1 , Pulse 94 , B/P 133 /72 , Respiratory Rate 18 , O2 SAT 90 , Room Air, O2 Flow Rate 15.0 . Vital Sign Comment: EKG Rhythm: Sinus Rhythm Rhythm change?: N MD Notified?: - MD Response: Latest Hernandez Fall Score: 70 Fall Risk: High Risk Safety Measures: Call light Within Reach, Bed Alarm Zone 1, Side Rails Side Rails x3, Bed position Low and Locked. Fall Precautions: Yellow Socks Yellow Gown Door Sign Patient Fall Education Report given to ZACH Paul.
--- NOTE | 2020-05-19 07:40 | NUR ---
NURSE NOTES: Contacted Dr. Veras's exchange regarding patient's change of condition. Upon receiving the patient, patient's O2 saturation is 60-70% on 15L NRB, BP: 60/36, HR: 65 SR on monitor. Awaiting call back.
[2020-05-19 07:41] LABS: HEMATOCRIT 14.9 % (37.0-47.0); MEAN CORPUSCULAR VOLUME 90 FL (80-99); PLATELET COUNT 63 K/UL (150-450); RED BLOOD COUNT 1.64 M/UL (4.20-5.40); RED CELL DISTRIBUTION WIDTH 17.1 % (11.6-14.8); WHITE BLOOD COUNT 6.7 K/UL (4.8-10.8)
--- NOTE | 2020-05-19 08:01 | NUR ---
CASE MANAGEMENT:REVIEW 05/19/20 SI:SEPSIS. RT THIGH MASS/HEMATOMA ACUTE RENAL FAILURE ~ NOW ESRD ~ NON TUNNELLED CATH S/P PEG PLACEMENT 05/12/20. SEIZURE? 97.1 102 18 133/72 90% ON NRB 15L/100% K+5.1 PLT-63 IS: IV ATIVAN Q4HRS PRN IV DECADRON Q24 NORVASC GT BID IV MEROPENEM Q24 IV DOXYCYCLINE Q12 IVF@50/HR INSULIN SQ Q6HRS : TELEMETRY STATUS DCP: FROM [facility]: MD TO SPEAK WITH FAMILY ABOUT END OF LIFE CARE???
[2020-05-19 08:02] LABS: HEMOGLOBIN 5.1 G/DL (12.0-16.0)
--- NOTE | 2020-05-19 08:09 | NUR ---
NURSE NOTES: Contacted Dr. Veras for the second attempt. Patient is asystole on monitor. No visible chest rise noted. Unable to obtain O2 saturation and temperature at this time. Patient is DNR and DNI.
--- NOTE | 2020-05-19 08:18 | NUR ---
NURSE NOTES: Contacted Elisha Sarkar regarding patient expiring this AM. Per family member, they have made arrangement for the patient and will contact us as soon as possible.
[2020-05-19 08:26] LABS: INR 1.9 (0.9-1.1)
[2020-05-19 08:34] LABS: ALBUMIN 1.4 G/DL (3.4-5.0); ALBUMIN/GLOBULIN RATIO 0.6 (1.0-2.7); CALCIUM 7.1 MG/DL (8.5-10.1); CREATININE 3.3 MG/DL (0.55-1.30); POTASSIUM 3.2 MMOL/L (3.5-5.1)
[2020-05-19 08:35] LABS: BILIRUBIN,DIRECT 5.2 MG/DL (0.0-0.3)
--- NOTE | 2020-05-19 09:00 | NUR ---
Patient is DNR/DNI. Asystole in monitor, no visible chest rise, no palpable pulse, pupils fixed, no blood pressure. Pronounced at this time. MD notified, Family notified.
--- NOTE | 2020-05-19 09:58 | General Progress Note ---
Subjective Allergies: Coded Allergies: PENICILLINS (Verified Allergy, Unknown, 12/05/17) All Systems: reviewed and negative except above Subjective sleepy calm Objective Last 24 Hour Vital Signs Date Time Temp Pulse Resp B/P (MAP) Pulse Ox O2 Delivery O2 Flow Rate FiO2 05/19/20 04:00 97.1 94 18 133/72 (92) 90 05/19/20 03:12 102 05/19/20 00:00 97.3 97 19 130/79 (96) 97 05/18/20 23:12 95 05/18/20 21:00 Non-Rebreather 05/18/20 20:10 98 Non-Rebreather 15.0 100 05/18/20 20:00 90 05/18/20 20:00 96.1 93 19 138/70 (92) 93 05/18/20 17:44 95 137/73 05/18/20 16:00 95 05/18/20 16:00 98.7 71 20 137/73 (94) 97 05/18/20 12:00 96.7 83 22 124/80 (95) 98 05/18/20 12:00 97 Intake and Output 05/18/20 05/19/20 19:00 07:00 Intake Total 150 ml 1200 ml Output Total 1200 ml Balance -1050 ml 1200 ml Free Water 150 ml IV Total 50 ml 500 ml Tube Feeding 100 ml 550 ml Output Urine Total 1200 ml # Voids 3 Laboratory Tests 05/19/20 06:30: White Blood Count 6.7#, Red Blood Count 1.64L, Hemoglobin 5.1#*L, Hematocrit 14.9#L, Mean Corpuscular Volume 90, Mean Corpuscular Hemoglobin 31.4H, Mean Corpuscular Hemoglobin Concent 34.7, Red Cell Distribution Width 17.1H, Platelet Count 63L, Mean Platelet Volume 11.0H, Neutrophils (%) (Auto) , Lymphocytes (%) (Auto) , Monocytes (%) (Auto) , Eosinophils (%) (Auto) , Basophils (%) (Auto) , Neutrophils % (Manual) [Pending], Lymphocytes % (Manual) [Pending], Platelet Estimate [Pending], Platelet Morphology [Pending], Prothrombin Time 20.2H, Prothromb Time International Ratio 1.9H, Activated Partial Thromboplast Time 65H , Sodium Level 145, Potassium Level 3.2L, Chloride Level 111H, Carbon Dioxide Level 22, Anion Gap 12, Blood Urea Nitrogen 31H, Creatinine 3.3H, Estimat Glomerular Filtration Rate 16.8, Glucose Level 170H, Calcium Level 7.1L, Total Bilirubin 6.0H, Direct Bilirubin 5.2H, Aspartate Amino Transf (AST/SGOT) 157H, Alanine Aminotransferase (ALT/SGPT) 64, Alkaline Phosphatase 1053H, Total Protein 3.9L, Albumin 1.4L, Globulin 2.5, Albumin/Globulin Ratio 0.6L Height (Feet): 5 Height (Inches): 7.00 Weight (Pounds): 130 General Appearance: lethargic EENT: PERRL/EOMI Neck: normal alignment Cardiovascular: normal peripheral pulses, normal rate, regular rhythm Respiratory/Chest: chest wall non-tender, lungs clear, normal breath sounds Abdomen: normal bowel sounds, non tender, soft Extremities: normal inspection Edema: no edema noted Arm (L), no edema noted Arm (R), no edema noted Leg (L), no edema noted Leg (R), no edema noted Pedal (L), no edema noted Pedal (R), no edema noted Generalized Neurologic: motor weakness Skin: normal pigmentation, warm/dry Assessment/Plan Problem List: (1) COVID-19 ICD Codes: U07.1 - COVID-19 SNOMED: 933862319 (2) Anemia ICD Codes: D64.9 - Anemia, unspecified SNOMED: 291732072 (3) Leg wound, right ICD Codes: S81.801A - Unspecified open wound, right lower leg, initial encounter SNOMED: 82957834, 769699880 (4) Acute on chronic renal failure ICD Codes: N17.9 - Acute kidney failure, unspecified; N18.9 - Chronic kidney disease, unspecified SNOMED: 985176930 (5) JYOTI (acute kidney injury) ICD Codes: N17.9 - Acute kidney failure, unspecified SNOMED: 97522382, 1012071 (6) Sepsis ICD Codes: A41.9 - Sepsis, unspecified organism SNOMED: 29392221 Status: unchanged Assessment/Plan: wound care abx transfuse prn cbc bmp am Sarmad Chester DO May 19, 2020 09:58
[2020-05-19] MEDS ORDERED: D5NS 1000ml IV ONE (10:59)
[2020-05-19] MEDS ORDERED: Tubing IV Secondary IV ONE (10:59)
--- NOTE | 2020-05-19 12:37 | Surgery Progress Note ---
Surgery Progress Note Subjective Additional Comments Late entry as patient was seen this morning. Patient has been significantly deteriorating over the past short period time. She was ill-appearing this morning with minimal vitals. Soon after discussed with staff patient had been found with no pulse. Has been a pleasure caring for patient. Case discussed with primary team. Objective Last 24 Hour Vital Signs Date Time Temp Pulse Resp B/P (MAP) Pulse Ox O2 Delivery O2 Flow Rate FiO2 05/19/20 04:00 97.1 94 18 133/72 (92) 90 05/19/20 03:12 102 05/19/20 00:00 97.3 97 19 130/79 (96) 97 05/18/20 23:12 95 05/18/20 21:00 Non-Rebreather 05/18/20 20:10 98 Non-Rebreather 15.0 100 05/18/20 20:00 90 05/18/20 20:00 96.1 93 19 138/70 (92) 93 05/18/20 17:44 95 137/73 05/18/20 16:00 95 05/18/20 16:00 98.7 71 20 137/73 (94) 97 I&O Intake and Output 05/18/20 05/19/20 19:00 07:00 Intake Total 150 ml 1200 ml Output Total 1200 ml 2000 ml Balance -1050 ml -800 ml Free Water 150 ml IV Total 50 ml 500 ml Tube Feeding 100 ml 550 ml Output Urine Total 1200 ml Hemodialysis UF 2000 ml # Voids 3 Laboratory Tests Test 05/19/20 06:30 White Blood Count 6.7 K/UL (4.8-10.8) # Red Blood Count 1.64 M/UL (4.20-5.40) L Hemoglobin 5.1 G/DL (12.0-16.0) Hematocrit 14.9 % (37.0-47.0) #L Mean Corpuscular Volume 90 FL (80-99) Mean Corpuscular Hemoglobin 31.4 PG (27.0-31.0) H Mean Corpuscular Hemoglobin Concent 34.7 G/DL (32.0-36.0) Red Cell Distribution Width 17.1 % (11.6-14.8) H Platelet Count 63 K/UL (150-450) L Mean Platelet Volume 11.0 FL (6.5-10.1) H Neutrophils (%) (Auto) % (45.0-75.0) Lymphocytes (%) (Auto) % (20.0-45.0) Monocytes (%) (Auto) % (1.0-10.0) Eosinophils (%) (Auto) % (0.0-3.0) Basophils (%) (Auto) % (0.0-2.0) Differential Total Cells Counted 100 Neutrophils % (Manual) 82 % (45-75) H Lymphocytes % (Manual) 11 % (20-45) L Monocytes % (Manual) 7 % (1-10) Eosinophils % (Manual) 0 % (0-3) Basophils % (Manual) 0 % (0-2) Band Neutrophils 0 % (0-8) Platelet Estimate Decreased L Platelet Morphology Normal Hypochromasia 2+ Anisocytosis 1+ Target Cells Occasional Prothrombin Time 20.2 SEC (9.30-11.50) H Prothromb Time International Ratio 1.9 (0.9-1.1) H Activated Partial Thromboplast Time 65 SEC (23-33) H Sodium Level 145 MMOL/L (136-145) Potassium Level 3.2 MMOL/L (3.5-5.1) L Chloride Level 111 MMOL/L (98-107) H Carbon Dioxide Level 22 MMOL/L (21-32) Anion Gap 12 mmol/L (5-15) Blood Urea Nitrogen 31 mg/dL (7-18) H Creatinine 3.3 MG/DL (0.55-1.30) H Estimat Glomerular Filtration Rate 16.8 mL/min (>60) Glucose Level 170 MG/DL (74-106) H Calcium Level 7.1 MG/DL (8.5-10.1) L Total Bilirubin 6.0 MG/DL (0.2-1.0) H Direct Bilirubin 5.2 MG/DL (0.0-0.3) H Aspartate Amino Transf (AST/SGOT) 157 U/L (15-37) H Alanine Aminotransferase (ALT/SGPT) 64 U/L (12-78) Alkaline Phosphatase 1053 U/L (46-116) H Total Protein 3.9 G/DL (6.4-8.2) L Albumin 1.4 G/DL (3.4-5.0) L Globulin 2.5 g/dL Albumin/Globulin Ratio 0.6 (1.0-2.7) L Plan Problems: (1) UTI (urinary tract infection) (2) JYOTI (acute kidney injury) (3) Hyperkalemia (4) Leukocytosis Assessment & Plan: dvt upper extremity picc related remove picc once temp line in anticoag as per heme worsening leukocytosis on abx acute hepatic insufficiency unfortunately prognosis very guarded (5) Sepsis (6) Altered mental status (7) Sacral decubitus ulcer Assessment & Plan: 69-year-old female multiple comorbidities presented with failure to thrive lethargic altered mental status noted to have abnormal labs and have draining bilateral heel unstageable decubitus ulcers multiple skin lesions on the lower extremities as well as a sacral decubitus ulcer as well. Imaging reviewed. Patient has been eating less recently but currently is eating at the bedside though does not look like she is taking much in. Treatment plan Turn every 2 hours Offload pressure with pillows pillow on side as necessary as well as underneath calf to elevate heels Air soft mattress nutritional optimization continue IV antibiotics per infectious disease SACRUM- STAGE - UNSTAGEABLE PRESSURE ULCER MEASURES 6.0X13.0X0.2. WOUND BED WITH 80% SLOUGH AND 20% PINK GRANULATION TISSUE. NOTED FOUL ODOR RECOMMEND-CLEAN WITH SALINE. APPLY WET TO DRY DRESSINGS WITH DAKINS 0.25% DAKIN'S SOLUTION.COVER WITH OPTIFOAM DRESSING. REPLACE DRESSING DAILY. LEFT ISCHIUM-STAGE II PRESSURE ULCER MEASURES 4.5X0.5X0.2CM. PINK GRANULATION TISSUE NOTED. RECOMMEND- CLEAN WITH SALINE, PAT DRY. APPLY CALAZINE AND COVER WITH OPTIFOAM DR PETERSON. LEFT ANTERIOR LOW LEG-VENOUS ULCER MEASURES 8.0X2.6X0.2CM 100% YELLOW SLOUGH NOTED TO WOUND BED. RECOMMEND- CLEAN WITH SALINE, PA DRY. APPLY THERAHONEY. COVER WITH GAUZE AND SECURE WITH KERLIX. REPLACE DRESSING DAILY. LEFT HEEL- UNSTAGEABLE PRESSURE ULCER MEASURES 9.5X8.0X0.3CM. 100% MOIST BLACK ESCHAR. WITH STRONG FOUL ODOR. RECOMMEND- CLEAN WITH SALINE. APPLY WET TO DRY DRESSINGS WITH DAKINS 0.25% DAKIN'S SOLUTION. COVER WITH GAUZE, ABD PAD AND SECURE WITH KERLIX. REPLACE DAILY. RIGHT ANTERIOR LOW LEG-VENOUS ULCER MEASURES 2.5X3.0X0.2CM WITH PINK GRANULATION TISSUE. RIGHT ANTERIOR DISTAL LOW LEG -VENOUS ULCER MEASURES 1.5X0.2X0.1CM WITH PINK GRANULATION TISSUE. RECOMMEND-CLEAN WITH SALINE PAT DRY. APPLY XEROFORM GAUZE, GAUZE AND COVER WITH KERLIX. REPLACE DAILY RIGHT HEEL-DTI MEASURES 2.5X3.0CM. AREA DARK PURPLE IN COLOR AND BOGGY TO TOUCH. NO DRAINAGE NOTED. RECOMMEND- PAINT WITH CAVILON SKIN PROTECTOR, GAUZE AND WRAP WITH KERLIX. REPLACE DAILY. We will follow with recommendations thank you for letting participate patient's care Fairly numerous bubbles of soft tissue gas are seen within the subcutaneous fat and possibly the intrinsic musculature of the plantar surface of the heel. There is high STIR and decreased T1 signal within the calcaneus, and there is indistinctness of the inferior and posterior cortical margins of the calcaneus. There is some soft tissue ulceration of the plantar surface of the heel, as well as marked thinning of the subcutaneous fat overlying the calcaneal tuberosity. There is considerable edema of the plantar surface subcutaneous fat. There is also edema of the subcutaneous fat of the lateral and medial ankle. No focal discrete fluid collection to suggest drainable abscess demonstrated. Impression: Evidence of ulceration overlying the calcaneal tuberosity Soft tissue gas within the heel, as described. This may represent penetration the above, but is worrisome for infection with a gas-forming organism Abnormal signal within the posterior and mid calcaneus, highly suspicious for acute osteomyelitis (8) Decubitus ulcer of heel (9) Diabetes mellitus out of control (10) Acute on chronic renal failure (11) NSTEMI (non-ST elevated myocardial infarction) (12) High anion gap metabolic acidosis (13) Choledocholithiasis Assessment & Plan: pending plt transfusion repeat labs in am needs EGD +/- peg PEG canceled given low PLT resume NGTF plan peg next week Unremarkable inferior vena cava. There is bilateral pleural fluid. Gallbladder demonstrates sludge. No definite gallstones. Gallbladder wall is thickened, measuring up to 3 mm thick, and there is pericholecystic edema. Patient unable to report sonographic Garcia's sign. Common bile duct measures 3 mm in diameter. No intrahepatic biliary ductal dilatation. Liver demonstrates normal echogenicity, no focal abnormality. Portal vein and hepatic veins are patent. There is trace ascites fluid. Pancreas is unremarkable. Spleen is unremarkable. Left kidney measures 11.4 cm in length. Right kidney measures 11.1 cm length. Both kidneys demonstrate slightly increased echogenicity. There is no hydronephr osis. No focal abnormality . Non-aneurysmal abdominal aorta . Impression: Ascites fluid Bilateral pleural effusions Negative for gallstones. Small amount of gallbladder sludge noted. Gallbladder wall thickening and pericholecystic edema is probably related to what ever process is causing the pleural fluid and ascites. Possibility of acute acalculous cholecystitis should also be considered, however. Echogenic kidneys, consistent with medical renal disease worsening overall unfortunately declining severe possible jeremy acalculous. but possible related to liver insufficiency high risk for bleeding and procedure recommend comfort measures (14) DVT (deep venous thrombosis) Joseph Alamo May 19, 2020 12:36
--- NOTE | 2020-05-21 12:01 | Cardiology Report ---
APPROVED REPORT EKG Measurement Heart [id number] CA [id number] <Conclusion> Normal sinus rhythm Low voltage QRS Septal infarct, age undetermined Abnormal ECG
--- NOTE | 2020-05-21 15:08 | Discharge Summary ---
Discharge Summary Discharge Summary _ Date of admission: 05/01/2020 Date of expiration: 05/19/2020 History of Present Illness and Brief Hospital Course Ms. Barroso was a 69-year-old female with past medical history of diabetes mellitus, dementia, CKD, hyperlipidemia, and hypertension, who was sent to the ED from nursing facility for evaluation of acute kidney injury with reported elevated BUN and creatinine. She had not urinated for 3 days before arrival and was refusing medication and refusing to eat. Patient's baseline mentation was alert and oriented x1. Patient tested negative for COVID-19 on 04/20/2020. Initial laboratory studies showed normal white blood cell count but confirmed worsening renal function with a creatinine of 4.1 and BUN of 37. The urine was also concerning for UTI and patient was treated with Rocephin. CT of the head was obtained for altered mental status but returned unremarkable. Patient was admitted to the hospital for further management. Of note, patient was recently discharged from [facility] after hospital stay from 03/1820-04 12 2020 for AMS and osteomyelitis. Patient was found to have osteomyelitis of LLE on MRI and UTI. She underwent wound debridement on 04/07/2020 with bone biopsy and cultures obtained. She was started on IV antibiotics vancomycin, cefepime and also Flagyl. Patient was discharged to complete 6-week course via a LUE PICC line. Patient had multiple comorbidities and presented with failure to thrive with altered mental status. She was noted to have draining bilateral heel unstageable decubitus ulcers and multiple skin lesions on the lower extremities as well as a sacral decubitus ulcer. Wound care was instituted. Pressures were offloaded with pillows. Her labs suggested acute kidney injury with subsequent hypokalemia and hypomagnesemia. Due to her recent initiation of vancomycin from prior admission, vancomycin toxicity was suspected. Other possible etiologies included intrinsic process, given elevated FENa. Renal ultrasound showed mildly distended bladder without hydronephrosis. Vargas catheter was inserted for s trict I&O's and vancomycin level was monitored closely. On 05/02/2020, vancomycin was discontinued and was replaced with doxycycline secondary to JYOTI. IV fluids were also given. She had history of diabetes mellitus, and thus Accu-Cheks were performed at regular intervals. Hypoglycemia protocol was in place. She was found to have LUE DVT. PICC line was removed and new temporary hemodialysis line was placed. Heparin drip was initiated after confirming absence of acute intracranial bleed or mass-effect in the head via CT of head without contrast. Heparin was soon changed to Lovenox. However, Lovenox was held later due to severe anemia. She was started on SCDs for future DVT prophylaxis measure. Right jugular temporary dialysis catheter was placed. She was dialyzed at regular intervals and fluids were removed as needed. Her hemoglobin was critically low at 5.7 on 05/06/2020. Repeat hemoglobin was ordered to confirm. Hemoglobin was still low, so PRBC transfusion was ordered. Hemoglobin improved after 2 units of PRBC. Her platelet counts also dropped and she received platelet transfusion. However her platelet count remained as low as in the 50s and patient was actively bleeding slowly with melena and bloody urine via Vargas catheter. Her WBC was up to 30,000, with elevated bilirubin, and elevated LFTs. Biliary tract etiology was suspected. However, she was not a candidate for surgery/interventions due to thrombocytopenia and comorbidities. Her condition was discussed with her sister, Elisha, at length who understood her grave prognosis and confirmed DNR/DNI. Patient was reported to have melena during admission without signs of active bleeding. Abdominal ultrasound revealed trace pleural effusions, and small amount of free fluid in the right abdomen. No gallstones were appreciated and kidneys appeared echogenic without hydronephrosis or nephrolithiasis. Her feeding was complicated by dysphagia and she did not pass swallow evaluation. Patient received NG tube and NG tube feeding for nutrition. Family agreed with PEG placement. However,PEG procedure was canceled given her low platelet count and NG tube feeding was continued instead. Patient had a history of hyperlipidemia. However her ambulatory medications including amlodipine, benazepril, aspirin, and statin were held during admission due to other more acute comorbidities. She was also found to have yeast UTI. She was already on cefepime, Flagyl, and doxycycline at this point. Diflucan was added for fungal UTI. On 05/11/2020 patient tested positive for rapid COVID-19 test. However patient was asymptomatic in terms of respiratory function until at a later stage of her admission when she developed respiratory failure. All in all, patient's prognosis remained grim and had worsened during her hospital stay. Patient continued to have low hemoglobin and platelet count with active bleeding. Patient's nutrition remained suboptimal despite delivery of nutrition via NG tube feeding. Patient did not qualify for PEG placement due to thrombocytopenia. On 05/19/2020, patient began to desaturate. Her oxygen saturations failed to improve despite being placed on 15 L NRB. At 05/19/2020 08:09, patient was found to be in asystole on the monitor. No visible chest rise was noted. Patient was DNR/DNI. Unfortunately, patient and was pronounced. Cause of : cardiopulmonary arrest. Consultants: Hematology oncology Dr. De Jesus Infectious disease Dr. Leung Surgery Dr. Alamo Nephrology Dr. Waterman Neurology Dr. Lee Final diagnoses Thrombocytopenia Anemia of chronic disease Left upper extremity, axillary, subclavian, and brachial venous thrombosis Coagulopathy with elevated INR/PTT Hyperkalemia Diabetic ketoacidosis ESRD on dialysis Respiratory failure Osteomyelitis of the left lower extremity Diabetes mellitus Hypertension Dyslipidemia Altered mental status Dementia Yeast UTI NSTEMI High anion gap metabolic acidosis Sacral decubitus ulcer Decubitus ulcer of heel Sepsis COVID-19 I have been assigned to dictate discharge summary for this account. Mark Jovel May 21, 2020 15:08
== END 2020-05-19 11:00 | disposition expired | DRG 720 ==
LOC: EDBD 14:16 → EDBEDREQ 15:51 → EMR 16:08 → 4E 16:50 → EDBEDREQ 17:10 → 4E 05-02 16:58 → 2E 05-13 23:36
PROC: 05HM33Z Insertion of Infusion Device into Right Internal Jugular Vein, Percutaneous Approach (ICD-10-PCS; principal; 2020-05-03)
PROC: 30233N1 Transfusion of Nonautologous Red Blood Cells into Peripheral Vein, Percutaneous Approach (ICD-10-PCS; 2020-05-05)
PROC: 30233R1 Transfusion of Nonautologous Platelets into Peripheral Vein, Percutaneous Approach (ICD-10-PCS; 2020-05-16)
DX: A41.9 Sepsis, unspecified organism (principal); U07.1 COVID-19; E11.10 Type 2 diabetes mellitus with ketoacidosis without coma; G93.41 Metabolic encephalopathy; N17.9 Acute kidney failure, unspecified; L89.152 Pressure ulcer of sacral region, stage 2; I82.622 Acute embolism and thrombosis of deep veins of left upper extremity; E46 Unspecified protein-calorie malnutrition; E83.42 Hypomagnesemia; F03.90 Unspecified dementia, unspecified severity, without behavioral disturbance, psychotic disturbance, mood disturbance, and anxiety; E87.6 Hypokalemia; M86.172 Other acute osteomyelitis, left ankle and foot; B37.49 Other urogenital candidiasis; F02.80 Dementia in other diseases classified elsewhere, unspecified severity, without behavioral disturbance, psychotic disturbance, mood disturbance, and anxiety; L89.620 Pressure ulcer of left heel, unstageable; L97.929 Non-pressure chronic ulcer of unspecified part of left lower leg with unspecified severity; Z88.0 Allergy status to penicillin; M86.8X6 Other osteomyelitis, lower leg; R13.10 Dysphagia, unspecified; E78.5 Hyperlipidemia, unspecified; D63.8 Anemia in other chronic diseases classified elsewhere; R79.1 Abnormal coagulation profile; J96.90 Respiratory failure, unspecified, unspecified whether with hypoxia or hypercapnia; L89.159 Pressure ulcer of sacral region, unspecified stage; D69.6 Thrombocytopenia, unspecified; Z79.82 Long term (current) use of aspirin; Z79.4 Long term (current) use of insulin; I12.9 Hypertensive chronic kidney disease with stage 1 through stage 4 chronic kidney disease, or unspecified chronic kidney disease; E11.22 Type 2 diabetes mellitus with diabetic chronic kidney disease; N18.9 Chronic kidney disease, unspecified; I21.4 Non-ST elevation (NSTEMI) myocardial infarction; M86.8X7 Other osteomyelitis, ankle and foot; L89.150 Pressure ulcer of sacral region, unstageable; L89.322 Pressure ulcer of left buttock, stage 2; L89.616 Pressure-induced deep tissue damage of right heel; Z66 Do not resuscitate; D62 Acute posthemorrhagic anemia; K85.90 Acute pancreatitis without necrosis or infection, unspecified; K92.2 Gastrointestinal hemorrhage, unspecified; K72.00 Acute and subacute hepatic failure without coma
CPT/HCPCS: 36415; 36569; 70450; 71045; 74018; 74176; 76700; 76770; 76937; 78266; 80048; 80053; 80076; 80202; 81003; 81025; 82044; 82150; 82248; 82270; 82330; 82550; 82570; 82728; 82962; 83010; 83036; 83605; 83690; 83735; 84100; 84300; 84443; 84484; 85007; 85025; 85384; 85610; 85730; 86665; 86703; 86705; 86709; 86803; 86850; 86900; 86901; 86920; 87040; 87081; 87086; 87324; 87340; 89050; 93005; 93970; 93971; 96361; 96365; 96375; 99285; J1815; J3490; J7030; J8499; S5561; U0002